=== PATIENT | female | born 1955 | race Caucasian/White ===

== ENCOUNTER 2017-09-13 18:38 | Emergency (ER) | payer MEDICAID, SELFPAY ==
[2017-09-13 18:41] VITALS: BP 193/113; PULSE 114; RESP 18; TEMP 37.1; O2SAT 98; BMI 26.5
--- NOTE | 2017-09-13 19:55 | CT_ITS ---
STUDY: CT BRAIN WITHOUT CONTRAST REASON FOR EXAM: Female, 61 years old. Headache and body rash with history of stroke RADIATION DOSAGE (If Supplied By Facility): CTDIvol = ( 44.99 ) mGy, DLP = ( 779.24 ) mGycm TECHNIQUE: Transaxial CT imaging of the brain was performed without administration of intravenous contrast material. Individualized dose optimization techniques were used for this CT. COMPARISON: None. FINDINGS: Normal soft tissue structures. Normal calvarium. Normal size ventricles and extra-axial spaces for the patient's age. Periventricular white matter ischemic changes are noted.. Normal basal ganglia. Old lacunar infarct of the left thalamus.. Diffuse hypoattenuation high in the right frontal parietal region consistent with old infarct. Normal brainstem. Normal cerebellum. There is no intracranial hemorrhage. There are no findings of an acute ischemic infarction. Normal visualized paranasal sinuses. CT/Brain/Head without Contrast IMPRESSION: Periventricular white matter ischemic changes and old left thalamic infarct as well as old right frontal parietal infarct. No mass or acute bleed. If concern for acute infarct MRI recommended. Electronically Signed: Richard Grajeda MD at 21:08 EDT , Service support ,
[2017-09-13 20:16] LABS: Absolute Lymphocyte Count 3.11 X10^3/ul (0.83-4.51); Absolute Neutrophil Count 6.7 X10^3/uL (2.0-7.7); Basophil# 0.07 X10^3/uL; Basophil% 0.6 % (0-1); Eosinophil# 0.32 X10^3/uL; Eosinophils% 2.9 % (0-5); Hematocrit 42.5 % (37-47); Hemoglobin 15.1 g/dl (12.0-15.0); Lymphocyte # 3.11 X10^3/ul (4.0); Lymphocyte % 28.6 % (19-41); Mean Corp Hgb Conc 35.5 g/gl (32-36); Mean Corpuscular Volume 84.3 fL (81-99); Mean Platelet Vol. 10.1 fl (6.2-12.0); Monocyte# 0.71 X10^3/uL; Monocyte% 6.5 % (0-10); Neutrophil # 6.65 X10^3/uL (2.7-7.7); Neutrophil % 61.1 % (47-70); Platelet Count 368 K/mm3 (150-450); RBC Distribution Width CV 13.5 % (11.6-14.6); RBC Distribution Width SD 41.7 fl (35.1-43.9); Red Blood Count 5.04 M/mm3 (4.2-5.4); White Blood Count 10.9 K/mm3 (4.4-11.0)
[2017-09-13] MEDS: proCHLORPERazine 10 MG/2 ML Vial IV (20:17)
[2017-09-13] MEDS: 0.9% Normal Saline 1,000 ML 999 ML IV (20:17)
[2017-09-13] MEDS: DiphenhydrAMINE 50 MG/ML Syringe IV (20:17)
[2017-09-13 20:19] LABS: POSITIVE COUNT NO; POSITIVE DIFFERENTIAL NO; POSITIVE MORPHOLOGY NO
[2017-09-13 20:24] VITALS: BP 176/79; PULSE 88; RESP 14
[2017-09-13 20:32] LABS: Anion Gap 9 (5-15); BUN 17 mg/dL (7-18); BUN/Creat Ratio 14.4 RATIO (10-20); Calcium,Total 8.7 mg/dL (8.5-10.1); Chloride 97 mmol/L (98-107); Creatinine, Serum 1.18 mg/dL (0.55-1.02); EST Glomerular Filtration Rate 49 mL/min (>60); Est Glom Filt Rate - Afr Amer 60 mL/min (>60); Estimated Creatinine Clearance 35.96 ml/min; Glucose 395 mg/dL (74-106); Potassium 3.7 mmol/L (3.5-5.1); Sodium Level 131 mmol/L (136-145)
--- NOTE | 2017-09-13 21:31 | ED.VISSUMM ---
- ER Visit Summary Date of Service: 09/13/17 Chief Complaint: Headache, rash History of Present Illness: The patient is a 61 F with headache and rash. Patient states over the past 3 days, she has had gradually progressive headache. She states similar to prior that she has had in the past. The patient does have a history of prior stroke, but states this feels very different. She is also concerned because she has a rash. She states on her arms and back, she has had central red areas that have been increasingly itchy. She denies any definitive exposure. She denies any fever or chills. The patient is a diabetic and does have history of hypertension, but states she has been compliant with her medications. Physical Examination: Well-appearing patient is in no acute distress. Head is normocephalic, atraumatic. Pupils equal round reactive, extraocular muscles intact. There is no temporal artery tenderness. There is no vesicular rash. Neck supple. Kernig's and Brudzinski's are negative. Heart regular rate and rhythm. Lungs clear, chest nontender. Abdomen soft, nontender, nondistended. Neuro exam displays no focal or lateralizing deficit. 2+ symmetric lower extremity reflexes. No clonus. No ataxia or gait abnormality. Skin does show multiple excoriated areas on the dorsal surface of both arms and upper shoulders. It is consistent with scabies. Test Results: [] Emergency Department Course and Treatment: The patient has a benign neurologic examination. However, given her age I did obtain a head CT. This is unremarkable. She has no meningismus. She has no encephalopathy. I do feel this is more migrainous in nature. The patient was treated with Compazine and Benadryl. She had total resolution of her headache. Her rash does seem more consistent with a scabies. She will be treated with permethrin cream. Given the excoriation and erythema, I will add Keflex. She was counseled on concerning symptoms. She will be discharged home. Treatment Plan: [] Disposition: Discharge Impression:. Headache 2. Scabies This note was generated with [employer]Tree[employer] software. It may contain incorrect words, spelling, and punctuation that were not noted in review of the chart prior to signing ED Disposition - Plan for ED Patient: Disposition: Home or Assisted Living Chief Complaint: Headache Instructions: ED Headache Migraine, ED Scabies Prescriptions: Cephalexin [Keflex] 500 mg PO Q6 #40 cap Permethrin 5% [Permethrin] 60 gm TOPICAL X1 #1 cream..g. Referrals: Evens Jimenez III, MD [Primary Care Provider] -
[2017-09-13 21:39] VITALS: BP 168/70
== END 2017-09-13 21:40 | disposition home or self-care (01) ==
LOC: ED 20:06
PROVIDERS: Emergency Provider Emergency Medicine; Family Provider Family Medicine; PCP Family Medicine
DX: R51 Headache (principal); B86 Scabies; E11.9 Type 2 diabetes mellitus without complications; I10 Essential (primary) hypertension; Z79.899 Other long term (current) drug therapy; Z86.73 Personal history of transient ischemic attack (TIA), and cerebral infarction without residual deficits
CPT/HCPCS: 70450; 80048; 85025; 96361; 96374; 96375; 99283; J7030; A4216

== ENCOUNTER → 2017-11-08 14:42 | Outpatient (CLI) | payer MEDICAID, SELFPAY ==
[2017-11-08 15:14] LABS: Absolute Lymphocyte Count 1.82 X10^3/ul (0.83-4.51); Basophil# 0.03 X10^3/uL; Basophil% 0.2 % (0-1); Eosinophils% 5.8 % (0-5); Hematocrit 43.1 % (37-47); Hemoglobin 15.1 g/dl (12.0-15.0); Lymphocyte # 1.82 X10^3/ul (4.0); Mean Corpuscular Hgb 29.8 pg (27.0-32.0); Mean Platelet Vol. 9.5 fl (6.2-12.0); Monocyte# 0.62 X10^3/uL; Monocyte% 5.1 % (0-10); Neutrophil # 8.98 X10^3/uL (2.7-7.7); Neutrophil % 73.8 % (47-70); Platelet Count 387 K/mm3 (150-450); RBC Distribution Width CV 13.6 % (11.6-14.6); Red Blood Count 5.07 M/mm3 (4.2-5.4); White Blood Count 12.2 K/mm3 (4.4-11.0)
[2017-11-08 15:15] LABS: POSITIVE COUNT NO; POSITIVE DIFFERENTIAL NO; POSITIVE MORPHOLOGY NO
[2017-11-08 15:18] VITALS: BP 190/100; PULSE 94; RESP 16; TEMP 36.8; O2SAT 97; BMI 27.1
[2017-11-08 15:29] LABS: Anion Gap 7 (5-15); BUN 17 mg/dL (7-18); BUN/Creat Ratio 12.5 RATIO (10-20); Calcium,Total 9.2 mg/dL (8.5-10.1); Chloride 94 mmol/L (98-107); Creatinine, Serum 1.36 mg/dL (0.55-1.02); EST Glomerular Filtration Rate 42 mL/min (>60); Est Glom Filt Rate - Afr Amer 51 mL/min (>60); Glucose 405 mg/dL (74-106); Sodium Level 129 mmol/L (136-145)
== END ==
PROVIDERS: Family Provider Family Medicine; PCP Family Medicine; Visit Provider Surgery
DX: I96 Gangrene, not elsewhere classified (principal)
CPT/HCPCS: 96365; 80048; 85025; J7050; A4216; J3490

== ENCOUNTER 2017-11-14 07:26 | Day surgery (SDC) | payer MEDICAID, SELFPAY ==
[2017-11-13 10:52] VITALS: BMI 27.1
[2017-11-14 07:43] LABS: Hematocrit 41.5 % (37-47); Hemoglobin 14.4 g/dl (12.0-15.0); Mean Corp Hgb Conc 34.7 g/gl (32-36); Mean Corpuscular Hgb 29.9 pg (27.0-32.0); Mean Corpuscular Volume 86.3 fL (81-99); Mean Platelet Vol. 9.4 fl (6.2-12.0); Platelet Count 434 K/mm3 (150-450); RBC Distribution Width CV 13.8 % (11.6-14.6); Red Blood Count 4.81 M/mm3 (4.2-5.4); White Blood Count 11.4 K/mm3 (4.4-11.0)
[2017-11-14 07:44] LABS: Scan Indicated on CBC? Y/N NO
[2017-11-14 07:58] LABS: BUN 18 mg/dL (7-18); Creatinine, Serum 1.24 mg/dL (0.55-1.02); Estimated Creatinine Clearance 34.22 ml/min; Glucose 223 mg/dL (74-106)
[2017-11-14 07:59] LABS: Anion Gap 10 (5-15); BUN/Creat Ratio 14.5 RATIO (10-20); Calcium,Total 8.8 mg/dL (8.5-10.1); Chloride 103 mmol/L (98-107); EST Glomerular Filtration Rate 47 mL/min (>60); Est Glom Filt Rate - Afr Amer 56 mL/min (>60); Potassium 3.8 mmol/L (3.5-5.1); Sodium Level 138 mmol/L (136-145)
[2017-11-14 11:00] LABS: ACT Activated Clotting Time 230 sec (74-137)
[2017-11-14 11:00] LABS: ACT Activated Clotting Time 224 sec (74-137)
[2017-11-14 11:00] LABS: ACT Activated Clotting Time 235 sec (74-137)
[2017-11-14 11:00] LABS: ACT Activated Clotting Time 136 sec (74-137)
--- NOTE | 2017-11-14 11:26 | OP.PCM_ITS ---
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 61-year-old female was taken to the special procedures lab. Throughout the procedure she received a total of 100 mcg fentanyl and 1 mg Versed is intravenous sedation. Bilateral groins were sterilely prepped and draped. It is of additional note that during the procedure she received a total of 20 mg of hydralazine in aliquots and 50 mg of labetalol and aliquots for hypertension control. The patient did not take her routine hypertensive medications this morning Under ultrasound guidance the right common femoral artery was identified. 2% lidocaine was instilled as a local anesthetic. Throughout the procedure total 10 cc was used. Micropuncture needle was inserted. Micropuncture wire inserted. 6 [place]an short sheath dilator was inserted using 035 Glidewire 5 [place] universal flush catheter placed into the mid infrarenal abdominal aorta. Using Visipaque contrast the rate of 15 cc a second for 15 cc an AP aortogram was obtained. Then using Glidewire of the universal flush catheter was placed into the left common femoral artery. Static views of the left thigh were obtained. Then I switched out for 035 Quick cross catheter and using the Glidewire Access the left superficial femoral artery was then tediously able to advance through areas of high-grade stenosis within the left superficial femoral artery is able to advance the Quick cross in the popliteal. Images of the left lower extremity demonstrated a complete occlusion of the left tibial and posterior tibial. There was an 8 cm long occlusion of left peroneal. Using the Glidewire was able to get to the peroneal occlusion. Then I used a 018 connect wire which was able to advance the Quick cross catheter then I switched to a 014 command wire and was finally able to get into the peroneal artery distally to the level of the ankle. Place the catheter that position was able to get images. Demonstrated true lumen. It is of note that prior to doing all of that left lower extremity work I did exchange out over an 035 Magic wire and removed the 5 Chilean sheath and placed a 7 Chilean destination sheath. And it was at that time that the patient received 7000 units of heparin and based upon ACT measurements in aliquots she received additional 1000 and then 1000 units of heparin. Having now achieved access past all areas of occlusion the vessels were measured they were noted be very fragile during the manipulations vessels measured out the SFA to be only 3 mm so I used a tapered 2.5-3 mm 210 mm long Divya cross balloon and perform balloon angioplasty of the entire length of the left peroneal of the left tibioperoneal trunk left popliteal and left SFA. This was performed up to 14 mary ann of pressure and each that was held for 3 minutes. At the completion there was still relative stenosis at Noam's canal. I retreated that area with the Divya cross balloon. Final images now demonstrated dramatic improvement with in-line flow. She tolerated procedure well devices were removed a minx device was deployed in the right groin there appear to be good hemostasis pressure was additionally held she was taken to the recovery area in satisfactory condition left foot now appear to be pink there was a much improved Doppler signal overlying the distal left peroneal with collateral flow noted to the dorsalis pedis. Images demonstrate calcification of the abdominal aorta there is 50% stenosis of the proximal left common iliac a 3 similar long area of 50% stenosis of the left external iliac the bilateral common femorals and profunda femoris are patent. The left superficial femoral artery has 2 areas of high-grade stenosis 1 at Noam's canal being about 80% stenosis and one at the superior popliteal about 90% stenosis. The left anterior tibial is patent for about 10 cm then it occludes. The left posterior tibial is completely occluded. Left peroneal is occluded for approximately 8 cm and then it re-appears. There is some collateral flow then down at the ankle. Subsequent to the angioplasty now there is straight in-line flow through the superficial femoral artery popliteal tibioperoneal trunk and peroneal arteries. There is still moderate irregular disease at Noam's canal. Because of the very diminutive size of her vessels I did not feel that we treating that area any further at this time would be beneficial. She had a very limited area of dissection that is not flow limiting. Her foot clinically is improved. Total contrast used was 85 cc I have been able to discuss the this intervention with Dr. Michael Laird who will also be following up with her. Siva Jimenez M.D., F.A.C.S. Type of Anesthesia:: IV Sedation
== END 2017-11-14 16:00 | disposition home or self-care (01) ==
PROVIDERS: Family Provider Family Medicine; PCP Family Medicine; Visit Provider Surgery
DX: I70.268 Atherosclerosis of native arteries of extremities with gangrene, other extremity (principal); I25.10 Atherosclerotic heart disease of native coronary artery without angina pectoris; E11.52 Type 2 diabetes mellitus with diabetic peripheral angiopathy with gangrene; E78.5 Hyperlipidemia, unspecified; I10 Essential (primary) hypertension; F32.9 Major depressive disorder, single episode, unspecified; F17.200 Nicotine dependence, unspecified, uncomplicated; Z86.73 Personal history of transient ischemic attack (TIA), and cerebral infarction without residual deficits; Z79.82 Long term (current) use of aspirin; Z79.899 Other long term (current) drug therapy
CPT/HCPCS: 36200; 36415; 37224; 37228; 75625; 76937; 80048; 85027; 85347; 99152; 99153; C1760; J7030; J7040; Q9967; C1725; C1769; C1887; C1894; J3490

== ENCOUNTER 2017-12-10 10:07 | Inpatient (IN) | payer MEDICAID, SELFPAY ==
[2017-12-10 10:29] VITALS: BP 125/82; PULSE 89; RESP 16; TEMP 37.1; O2SAT 97
[2017-12-10 10:37] VITALS: BMI 25.0
--- NOTE | 2017-12-10 11:15 | EKG12_ITS ---
Test Reason : PRE-OP Blood Pressure : / mmHG Vent. Rate : 079 BPM Atrial Rate : 079 BPM P-R Int : 128 ms QRS Dur : 080 ms QT Int : 408 ms P-R-T Axes : 064 017 058 degrees QTc Int : 467 ms Poor data quality, interpretation may be adversely affected Normal sinus rhythm Normal ECG Confirmed by NILSON HILL ([id number]), technical writer and editor RAYMUNDO PATEL ([id number]) on 12/19/2017 2:06:04 PM Referred By: SHERRIE Confirmed By:NILSON HILL
--- NOTE | 2017-12-10 11:20 | PCM.HP.STD ---
Problem List (1) Gangrene Status: Acute History of Present Illness Date of Admission: 12/10/17 Chief Complaint: Gangrene left 5th toe. The patient is a 62 year old F who has developed gangrene of the left fifth toe. Began several months ago. No antecedent trauma. Patient saw Dr. Laird and patient was referred to vascular surgery with Dr. Jimenez. Patient underwent an angioplasty on November 14 where she had an angiogram and angioplasty of the popliteal superior facial femoral artery. Patient was to follow-up with her primary care doctors but due to transportation issues unable to do so for further medical clearance. Dr. Laird requested admission today with anticipation of surgery on the for further medical clearance as patient was unable to do so on an outpatient basis. Early, the patient feels well other than pain and discomfort in her left fifth toe. Patient states that she resides in an apartment and has to take stairs to get upstairs. Patient stated that she has limited due to pain in her foot but does not get chest pain or shortness of breath. Prior to the gangrene, patient was active at her house and team cleaning without any difficulty. [] Past Medical History Past Medical History (Chronic Problems): Chronic Problems (Last Updated 11/08/17 @ 13:34 by Melva Ashby) Tobacco abuse (Chronic) Caries (Chronic) Carotid arterial disease (Chronic) History of CVA (cerebrovascular accident) (Chronic) Hyperlipidemia (Chronic) Hypertension (Chronic) Diabetes mellitus (Chronic) Abscess of buttock (Chronic) Tobacco abuse counseling (Chronic) Chronic ulcer of buttock (Chronic) Medical History: Medical History (Last Reviewed 12/10/17 @ 11:23 by Jose Neely DO) PVD (peripheral vascular disease) (Acute) I73.9 Carotid arterial disease (Chronic) I77.9 Hyperlipidemia (Chronic) E78.5 Nicotine dependence (Acute) F17.200 Cellulitis and abscess of buttock (Acute) 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 Asthma J45.909 CVA (cerebral vascular accident) I63.9 Chronic back pain M54.9, G89.29 Depression F32.9 Diabetes E11.9 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 HTN (hypertension) I10 Allergies Penicillins Allergy (Verified 09/13/17 18:40) Rash Home Medications: Ambulatory Orders Medication Instructions Recorded Amlodipine [Norvasc] 10 mg PO QHS 12/18/15 Lisinopril [Zestril] 10 mg PO DAILY 12/18/15 busPIRone [Buspar] 5 mg PO TID 12/18/15 Sertraline HCl [Zoloft] 25 mg PO DINNER 10/11/16 Simethicone 125 mg PO TID PRN PRN 10/11/16 Clopidogrel Bisulfate [Clopidogrel] 75 mg PO DAILY 12/10/17 Hydrocodone Bitart/Apap 5-325 1 tablet PO Q6H PRN PRN 12/10/17 [Joppa 5MG-325MG] Permethrin 5% [Permethrin] 60 gm TOPICAL DAILY 12/10/17 Surgical History: Surgical History (Last Reviewed 12/10/17 @ 11:24 by Jose Neely DO) History of esophagogastroduodenoscopy (EGD) Z98.890 S/P carotid endarterectomy Z98.890 S/P colonoscopy Z98.890 Surgical History: - - Patient has undergone right carotid endarterectomy by Dr. Siva Jimenez approximately 7 years ago. She is a Ab0. Lives: Spouse/ Significant Other Smoking Status: Heavy Smoker (>10/day) Tobacco Use: Cigarettes Alcohol: None Drugs: None - *Family History Maternal Family History: Family History (Last Updated 11/08/17 @ 13:38 by Melva Ashby) Mother No problems noted. History Items: - - Patient's father in his 40s from myocardial infarction. Patient's mother in her 40s from a cerebrovascular accident. Review of Systems Constitutional: Denies: Chills, Fever, Weight Change Eyes: Reports: Blurred vision - When she does not get enough water. Denies: Double vision HEENT: Denies: Head Aches, Sinus Congestion, Sinus Drainage Cardiovascular: Denies: Chest Pain, Palpitations Respiratory: Denies: Cough, Shortness of breath at rest, Sputum production Gastrointestinal: Denies: Abdominal Pain, Nausea, Vomiting Genitourinary: Denies: Dysuria Musculoskeletal: Denies: Joint Pain, Joint Tenderness Skin: Reports: - - Gangrene left fifth toe. Denies: Dryness, Jaundice Neurological: Denies: Numbness, Tingling, Focal weakness Psychiatric: Denies: Anxiety, Depression Endocrine: Denies: Change in Body Habitus Hematologic/ Lymphatic: Denies: Easy Bruising, Easy Bleeding, Hx of blood clot Comment: All review of systems are negative except as mentioned in the history of present illness and the other review of systems. VTE Information - Inpt Only VTE Present on Admission: No VTE Mechan Device Prophylaxis: SCD's Patient Problems: Active and Suspected Problems (Last Updated 11/08/17 @ 13:34 by Melva Ashby) Gangrene (Acute) - Physical Exam General: Alert, Cooperative, No apparent distress HEENT: Atraumatic, Normocephalic Oral: Moist Mucosa, - - Poor dentition Neck: No Nodes, Thyroid Normal Size and Texture Lungs: Clear to auscultation, Normal air movement, No rhonchi, No wheeze Cardiovascular: Regular rate, Regular Rhythm, Normal S1, Normal S2, No murmurs Abdomen: Bowel Sounds Present, Soft, Non Tender, Non-Distended, No Hepato-splenomegaly Extremities: No edema, No Calf Tenderness Skin: No rashes, - - Well demarcated gangrene involving as the entirety of her left fifth toe. 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 Left fifth toe gangrene Appears to be dry Patient was assessed for medical clearance. Patient has a good performance status prior to the gangrene setting in. Performance is only limited due to pain. Barring any issues regards to labs and EKG I feel that the patient should be medically cleared to proceed with amputation on the . If any lab work or EKG findings come up that may prevent that from occurring right away an addendum will be performed to this history and physical. Consult to podiatry for surgery I do not see any indication for antibiotics at this time Discussed with patient about the importance of stopping smoking. Patient tells me that she stopped smoking but technically it has only been 1 day so the patient previously has a [id number] of smoking. I explained the risks of further atherosclerosis and poor wound healing associated with continued smoking 2. Peripheral arterial disease Patient is already status post right carotid endarterectomy and had angioplasty of her popliteal and superficial femoral arteries on November [address] Jimenez Patient is on Plavix for that and that will continue. Dr. Laird is aware. 3. Diabetes mellitus type 2 Patient is on no medications for her diabetes. This is certainly complicating the gangrene and her peripheral arterial disease Will check a hemoglobin A1c Put her on sliding scale 4. Tobacco abuse Discussed benefits of quitting smoking. Please see above for further details 5. DVT prophylaxis: Patient will be put on SCDs for now. I am not going to order chemical prophylaxis at this point time as patient is going to be requiring surgery on the . That could be considered after surgery. Code Visit Inpatient E&M: 02180 Init Hosp L3
--- NOTE | 2017-12-10 11:30 | HP.PCM_ITS ---
Problem List (1) Gangrene Status: Acute History of Present Illness Date of Admission: 12/10/17 Chief Complaint: Gangrene left 5th toe. The patient is a 62 year old F who has developed gangrene of the left fifth toe. Began several months ago. No antecedent trauma. Patient saw Dr. Laird and patient was referred to vascular surgery with Dr. Jimenez. Patient underwent an angioplasty on November 14 where she had an angiogram and angioplasty of the popliteal superior facial femoral artery. Patient was to follow-up with her primary care doctors but due to transportation issues unable to do so for further medical clearance. Dr. Laird requested admission today with anticipation of surgery on the for further medical clearance as patient was unable to do so on an outpatient basis. Early, the patient feels well other than pain and discomfort in her left fifth toe. Patient states that she resides in an apartment and has to take stairs to get upstairs. Patient stated that she has limited due to pain in her foot but does not get chest pain or shortness of breath. Prior to the gangrene, patient was active at her house and team cleaning without any difficulty. [] Past Medical History Past Medical History (Chronic Problems): Chronic Problems (Last Updated 11/08/17 @ 13:34 by Melva Ashby) Tobacco abuse (Chronic) Caries (Chronic) Carotid arterial disease (Chronic) History of CVA (cerebrovascular accident) (Chronic) Hyperlipidemia (Chronic) Hypertension (Chronic) Diabetes mellitus (Chronic) Abscess of buttock (Chronic) Tobacco abuse counseling (Chronic) Chronic ulcer of buttock (Chronic) Medical History: Medical History (Last Reviewed 12/10/17 @ 11:23 by Jose Neely DO) PVD (peripheral vascular disease) (Acute) I73.9 Carotid arterial disease (Chronic) I77.9 Hyperlipidemia (Chronic) E78.5 Nicotine dependence (Acute) F17.200 Cellulitis and abscess of buttock (Acute) 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 Asthma J45.909 CVA (cerebral vascular accident) I63.9 Chronic back pain M54.9, G89.29 Depression F32.9 Diabetes E11.9 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 HTN (hypertension) I10 Allergies Penicillins Allergy (Verified 09/13/17 18:40) Rash Home Medications: Ambulatory Orders Medication Instructions Recorded Amlodipine [Norvasc] 10 mg PO QHS 12/18/15 Lisinopril [Zestril] 10 mg PO DAILY 12/18/15 busPIRone [Buspar] 5 mg PO TID 12/18/15 Sertraline HCl [Zoloft] 25 mg PO DINNER 10/11/16 Simethicone 125 mg PO TID PRN PRN 10/11/16 Clopidogrel Bisulfate [Clopidogrel] 75 mg PO DAILY 12/10/17 Hydrocodone Bitart/Apap 5-325 1 tablet PO Q6H PRN PRN 12/10/17 [[place] 5MG-325MG] Permethrin 5% [Permethrin] 60 gm TOPICAL DAILY 12/10/17 Surgical History: Surgical History (Last Reviewed 12/10/17 @ 11:24 by Jose Neely DO) History of esophagogastroduodenoscopy (EGD) Z98.890 S/P carotid endarterectomy Z98.890 S/P colonoscopy Z98.890 Surgical History: - - Patient has undergone right carotid endarterectomy by Dr. Siva Jimenez approximately 7 years ago. She is a Ab0. Lives: Spouse/ Significant Other Smoking Status: Heavy Smoker (>10/day) Tobacco Use: Cigarettes Alcohol: None Drugs: None - *Family History Maternal Family History: Family History (Last Updated 11/08/17 @ 13:38 by Melva Ashby) Mother No problems noted. History Items: - - Patient's father in his 40s from myocardial infarction. Patient's mother in her 40s from a cerebrovascular accident. Review of Systems Constitutional: Denies: Chills, Fever, Weight Change Eyes: Reports: Blurred vision - When she does not get enough water. Denies: Double vision HEENT: Denies: Head Aches, Sinus Congestion, Sinus Drainage Cardiovascular: Denies: Chest Pain, Palpitations Respiratory: Denies: Cough, Shortness of breath at rest, Sputum production Gastrointestinal: Denies: Abdominal Pain, Nausea, Vomiting Genitourinary: Denies: Dysuria Musculoskeletal: Denies: Joint Pain, Joint Tenderness Skin: Reports: - - Gangrene left fifth toe. Denies: Dryness, Jaundice Neurological: Denies: Numbness, Tingling, Focal weakness Psychiatric: Denies: Anxiety, Depression Endocrine: Denies: Change in Body Habitus Hematologic/ Lymphatic: Denies: Easy Bruising, Easy Bleeding, Hx of blood clot Comment: All review of systems are negative except as mentioned in the history of present illness and the other review of systems. VTE Information - Inpt Only VTE Present on Admission: No VTE Mechan Device Prophylaxis: SCD's Patient Problems: Active and Suspected Problems (Last Updated 11/08/17 @ 13:34 by Melva Ashby) Gangrene (Acute) - Physical Exam General: Alert, Cooperative, No apparent distress HEENT: Atraumatic, Normocephalic Oral: Moist Mucosa, - - Poor dentition Neck: No Nodes, Thyroid Normal Size and Texture Lungs: Clear to auscultation, Normal air movement, No rhonchi, No wheeze Cardiovascular: Regular rate, Regular Rhythm, Normal S1, Normal S2, No murmurs Abdomen: Bowel Sounds Present, Soft, Non Tender, Non-Distended, No Hepato- splenomegaly Extremities: No edema, No Calf Tenderness Skin: No rashes, - - Well demarcated gangrene involving as the entirety of her left fifth toe. 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 Left fifth toe gangrene * Appears to be dry * Patient was assessed for medical clearance. Patient has a good performance status prior to the gangrene setting in. Performance is only limited due to pain. Barring any issues regards to labs and EKG I feel that the patient should be medically cleared to proceed with amputation on the . If any lab work or EKG findings come up that may prevent that from occurring right away an addendum will be performed to this history and physical. * Consult to podiatry for surgery * I do not see any indication for antibiotics at this time * Discussed with patient about the importance of stopping smoking. Patient tells me that she stopped smoking but technically it has only been 1 day so the patient previously has a [id number] of smoking. I explained the risks of further atherosclerosis and poor wound healing associated with continued smoking 2. Peripheral arterial disease * Patient is already status post right carotid endarterectomy and had angioplasty of her popliteal and superficial femoral arteries on November [address] Jimenez * Patient is on Plavix for that and that will continue. Dr. Laird is aware. 3. Diabetes mellitus type 2 * Patient is on no medications for her diabetes. * This is certainly complicating the gangrene and her peripheral arterial disease * Will check a hemoglobin A1c * Put her on sliding scale 4. Tobacco abuse * Discussed benefits of quitting smoking. Please see above for further details 5. DVT prophylaxis: Patient will be put on SCDs for now. I am not going to order chemical prophylaxis at this point time as patient is going to be requiring surgery on the . That could be considered after surgery. Code Visit Inpatient E&M: 31646 Init Hosp L3
[2017-12-10 11:45] VITALS: PULSE 92
[2017-12-10 11:52] LABS: Absolute Lymphocyte Count 1.75 X10^3/ul (0.83-4.51); Basophil# 0.03 X10^3/uL; Basophil% 0.3 % (0-1); Eosinophil# 0.58 X10^3/uL; Eosinophils% 6.6 % (0-5); Hemoglobin 11.9 g/dl (12.0-15.0); Lymphocyte # 1.75 X10^3/ul (4.0); Mean Corp Hgb Conc 33.1 g/gl (32-36); Mean Corpuscular Hgb 29.2 pg (27.0-32.0); Mean Corpuscular Volume 88.2 fL (81-99); Mean Platelet Vol. 8.8 fl (6.2-12.0); Monocyte# 0.36 X10^3/uL; Monocyte% 4.1 % (0-10); Neutrophil # 6.03 X10^3/uL (2.7-7.7); Platelet Count 387 K/mm3 (150-450); RBC Distribution Width CV 14.3 % (11.6-14.6); RBC Distribution Width SD 46.2 fl (35.1-43.9); Red Blood Count 4.08 M/mm3 (4.2-5.4); White Blood Count 8.8 K/mm3 (4.4-11.0)
[2017-12-10 11:57] LABS: POSITIVE COUNT NO; POSITIVE DIFFERENTIAL NO; POSITIVE MORPHOLOGY NO
[2017-12-10 12:06] LABS: Bedside Glucose 201 mg/dL (70-110)
[2017-12-10 12:07] VITALS: BMI 25.1
[2017-12-10 12:09] LABS: ALB/GLOB Ratio 0.7 RATIO (0.9-2.4); AST(SGOT) 13 U/L (15-37); Alanine Aminotransfer ALT/SGPT 16 U/L (13-56); Albumin, Serum 3.1 g/dL (3.2-5.0); Alkaline Phosphatase 116 U/L (45-117); Anion Gap 9 (5-15); BUN 19 mg/dL (7-18); BUN/Creat Ratio 15.3 RATIO (10-20); Calcium,Total 8.9 mg/dL (8.5-10.1); Chloride 98 mmol/L (98-107); Creatinine, Serum 1.24 mg/dL (0.55-1.02); EST Glomerular Filtration Rate 47 mL/min (>60); Est Glom Filt Rate - Afr Amer 56 mL/min (>60); Estimated Creatinine Clearance 33.79 ml/min; Globulin 4.2 g/dL (2.2-4.2); Glucose 183 mg/dL (74-106); Potassium 4.1 mmol/L (3.5-5.1); Protein, Total 7.3 g/dL (6.4-8.2); Sodium Level 136 mmol/L (136-145)
[2017-12-10 12:15] LABS: Hemoglobin A1c 10.2 % (4.2-6.3)
--- NOTE | 2017-12-10 12:15 | NURSING ---
PAST MEDICAL HISTORY FILED, PATIENT STATES JUST FINISHED ANTIBIOTIC 4 DAYS AGO FROM ...UNSURE NAME & DOSE.
[2017-12-10] MEDS: Acetaminophen 325 MG Tablet 650 MG PO (12:26)
[2017-12-10] MEDS: oxyCODONE 5 MG Tablet PO ×3 (12:26→21:03)
[2017-12-10] MEDS: Glucerna Shake 120 ML LIQUID PO ×2 (12:27→17:18)
--- NOTE | 2017-12-10 15:16 | NURSING ---
BACK W/NUMEROUS SCABS & OPEN AREAS, C/O ITCHING. CLEANSED AREA W/BATH WIPES, TOWELLED DRY, LOTION APPLIED. ASKED IF FAMILY COULD BRING HER PRESCRIPTION OINTMENT FROM HOME? SHE WILL CALL & HAVE THEM BRING IT FOR USE WHILE SHE IS HERE.
[2017-12-10 16:00] VITALS: BP 172/85; PULSE 76; RESP 16; TEMP 37.2; O2SAT 99
[2017-12-10] MEDS: Insulin Lispro 100 UNIT/ML INSULN.PEN SQ (17:09)
[2017-12-10] MEDS: Sertraline 50 MG Tablet 25 MG PO (17:09)
[2017-12-10 17:15] LABS: Bedside Glucose 183 mg/dL (70-110)
[2017-12-10] MEDS: busPIRone 5 MG Tablet PO ×2 (17:17→21:00)
[2017-12-10] MEDS: Lisinopril 10 MG Tablet PO (17:17)
--- NOTE | 2017-12-10 18:37 | NURSING ---
1100-IV ATTEMPT X1 TO RIGHT ARM WITHOUT ABILITY TO FLUSH. SHOP ASSISTANT TO ATTEMPT.
[2017-12-10 19:55] VITALS: BP 152/86; PULSE 76; RESP 18; TEMP 36.9; O2SAT 96
[2017-12-10] MEDS: Triamcinolone 0.5% Cream 1 APPLIC TOPICAL (20:51)
[2017-12-10] MEDS: DiphenhydrAMINE 25 MG Capsule 50 MG PO (20:51)
[2017-12-10] MEDS: amLODIPine 10 MG Tablet PO (20:52)
[2017-12-10 21:20] LABS: Bedside Glucose 224 mg/dL (70-110)
[2017-12-11] VITALS (10 sets, daily range): BP systolic 92–206; BP diastolic 52–103; PULSE 72–87; RESP 16–18; TEMP 36.6–37.1; O2SAT 95–100; BMI 25.0
[2017-12-11] MEDS: Acetaminophen 325 MG Tablet 650 MG PO ×2 (04:01→22:37)
[2017-12-11 05:41] LABS: Absolute Lymphocyte Count 2.46 X10^3/ul (0.83-4.51); Absolute Neutrophil Count 4.3 X10^3/uL (2.0-7.7); Basophil# 0.04 X10^3/uL; Basophil% 0.5 % (0-1); Eosinophil# 0.83 X10^3/uL; Hematocrit 34.6 % (37-47); Hemoglobin 11.6 g/dl (12.0-15.0); Lymphocyte # 2.46 X10^3/ul (4.0); Lymphocyte % 29.7 % (19-41); Mean Corp Hgb Conc 33.5 g/gl (32-36); Mean Corpuscular Hgb 29.7 pg (27.0-32.0); Mean Corpuscular Volume 88.7 fL (81-99); Mean Platelet Vol. 8.9 fl (6.2-12.0); Monocyte# 0.66 X10^3/uL; Neutrophil # 4.29 X10^3/uL (2.7-7.7); Neutrophil % 51.7 % (47-70); Platelet Count 398 K/mm3 (150-450); RBC Distribution Width CV 14.1 % (11.6-14.6); RBC Distribution Width SD 45.3 fl (35.1-43.9); White Blood Count 8.3 K/mm3 (4.4-11.0)
[2017-12-11 05:43] LABS: POSITIVE COUNT NO; POSITIVE DIFFERENTIAL NO; POSITIVE MORPHOLOGY NO
[2017-12-11 05:47] LABS: Partial Thromboplast Time 33.1 Seconds (24.1-36.2)
[2017-12-11 06:40] LABS: Bedside Glucose 199 mg/dL (70-110)
[2017-12-11 06:41] LABS: AST(SGOT) 16 U/L (15-37); Alanine Aminotransfer ALT/SGPT 15 U/L (13-56); Albumin, Serum 2.7 g/dL (3.2-5.0); Alkaline Phosphatase 116 U/L (45-117); Anion Gap 7 (5-15); BUN 17 mg/dL (7-18); Bilirubin, Direct < 0.05 mg/dL (0.00-0.30); Calcium,Total 8.2 mg/dL (8.5-10.1); Chloride 101 mmol/L (98-107); Creatinine, Serum 1.06 mg/dL (0.55-1.02); EST Glomerular Filtration Rate 56 mL/min (>60); Est Glom Filt Rate - Afr Amer 68 mL/min (>60); Estimated Creatinine Clearance 39.53 ml/min; Globulin 4.2 g/dL (2.2-4.2); Glucose 171 mg/dL (74-106); Potassium 3.5 mmol/L (3.5-5.1); Protein, Total 6.9 g/dL (6.4-8.2); Sodium Level 137 mmol/L (136-145)
--- NOTE | 2017-12-11 07:30 | BON_PTH ---
PATIENT: DAVINA DAVIS LOC: [facility]3 U#:[id number] AGE/SX: 62/F ROOM: MS313 RE12/10/[address]: Dr. Jacob Byrd MD : 1955 BED: 1 DIS: 12/14/2017 SPEC #: [id number] RECD: 12/12/17 10:51 STATUS: JUSTYN REQ #: [id number] JULIET: 12/11/17 07:[address]: Michael Laird DEPT: SURGICAL PATHOLOGY RECD BY: Ba Craig ENTERED: 12/12/17 13:41 SP TYPE: Bone OTHR DR: MD Dr. Evens Strickland III, MD Dr. Joseph Agyepong, MD Dr. Matthew Testrake, DPM Tissues: Toe, NOS Procedures: Decalcification bone/plaque Surgery Specimen Level III Comments: @ Ordering doctor for DEC edited from to @ by LUPE at 12/13/17 0754 @ Ordering doctor for SUIV edited from to @ by LUPE at 12/13/17 0754 @ Submitting doctor edited from to @ by LUPE at 12/13/17 0754 HEADER OPERATION: Amputation of fifth left toe, partial left fifth ray amputation PRE-OP DIAGNOSIS: Left fifth toe gangrene TISSUE SUBMITTED: Left fifth metatarsal bone MICROSCOPIC DIAGNOSIS Left fifth metatarsal bone: A piece of bone, negative for acute osteomyelitis and adherent fragment of fibroconnective and skeletal muscle tissue. EMELY:de 12/15/17 MICROSCOPIC DESCRIPTION Slides are reviewed. GROSS DESCRIPTION Received in fixative is one container labeled with the patient's name and designated left fifth metatarsal. The specimen consists of an irregular fragment of eng bone measuring 1.5 x 0.8 x 0.3 cm. The specimen is submitted in its entirety in one cassette after decalcification. / AM:de 12/12/17 TC:5 CPT: 43833, 91842
--- NOTE | 2017-12-11 08:33 | PCM.CONS.GEN ---
Reason for Consult Date of Consultation: 12/11/17 Reason for Consultation: gangrene of left 5th toe History of Present Illness: The patient is a 62 year old F with gangrene of left 5th toe. underwent vascular procedure last month with Dr. velma Jimenez. Was scheduled for amputation but did not get surgically cleared. I had arranged for a follow-up appointment with Dr. Evens Jimenez on November 28 but patient did not show up. COntinues to have dry gangrene with worsening pain to left 5th toe. she presented to my clinic on Monday last week and we decided to arrange admission to hospital for clearance and for amputation. she denies sob or chest pain. Past Medical History Past Medical History (Chronic Problems): Chronic Problems (Last Reviewed 12/10/17 @ 11:23 by Jose Neely DO) Tobacco abuse (Chronic) Caries (Chronic) Carotid arterial disease (Chronic) History of CVA (cerebrovascular accident) (Chronic) Hyperlipidemia (Chronic) Hypertension (Chronic) Diabetes mellitus (Chronic) Abscess of buttock (Chronic) Tobacco abuse counseling (Chronic) Chronic ulcer of buttock (Chronic) Medical History: Medical History (Last Reviewed 12/10/17 @ 11:23 by Jose Neely DO) PVD (peripheral vascular disease) (Acute) I73.9 Carotid arterial disease (Chronic) I77.9 Hyperlipidemia (Chronic) E78.5 Nicotine dependence (Acute) F17.200 Cellulitis and abscess of buttock (Acute) 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 Asthma J45.909 CVA (cerebral vascular accident) I63.9 Chronic back pain M54.9, G89.29 Depression F32.9 Diabetes E11.9 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 HTN (hypertension) I10 Allergies Penicillins Allergy (Verified 09/13/17 18:40) Rash Home Medications: Ambulatory Orders Medication Instructions Recorded Amlodipine [Norvasc] 10 mg PO QHS 12/18/15 Lisinopril [Zestril] 10 mg PO DAILY 12/18/15 busPIRone [Buspar] 5 mg PO TID 12/18/15 Sertraline HCl [Zoloft] 25 mg PO DINNER 10/11/16 Simethicone 125 mg PO TID PRN PRN 10/11/16 Clopidogrel Bisulfate [Clopidogrel] 75 mg PO DAILY 12/10/17 Hydrocodone Bitart/Apap 5-325 1 tablet PO Q6H PRN PRN 12/10/17 [[place] 5MG-325MG] Mometasone Furoate [[place]] 50 gm TP DAILY 12/10/17 Surgical History: Surgical History (Last Reviewed 12/10/17 @ 11:24 by Jose Neely DO) History of esophagogastroduodenoscopy (EGD) Z98.890 S/P carotid endarterectomy Z98.890 S/P colonoscopy Z98.890 Surgical History: - - Patient has undergone right carotid endarterectomy by Dr. Velma Jimenez approximately 7 years ago. She is a Ab0. Lives: Spouse/ Significant Other Smoking Status: Former smoker Tobacco Use: Cigarettes Alcohol: None Drugs: None - *Family History Maternal Family History: Family History (Last Updated 11/08/17 @ 13:38 by Melva Ashby) Mother No problems noted. History Items: - - Patient's father in his 40s from myocardial infarction. Patient's mother in her 40s from a cerebrovascular accident. Patient Problems: Active and Suspected Problems (Last Reviewed 12/10/17 @ 11:23 by Jose Neely DO) Gangrene (Acute) Objective: patient is alert and orientated x 3. she does not appear in any distress vascular: DP and PT pulses are faint but are biphasic to doppler. skin is warm. no redness present. there is dry gangrene of left 5th toe. derm: dry gangrene present to left 5th toe. m/s: there is pain to palpation of left 5th toe - Physical Exam Vital Signs Temp Pulse Resp BP Pulse Ox 98.7 F 85 16 154/72 H 99 12/11/17 04:08 12/11/17 04:08 12/11/17 04:08 12/11/17 04:08 12/11/17 04:08 Oxygen Delivery Method Room Air Weight: 58.2 kg Body Mass Index (BMI) 25.0 Intake and Output for Last 24 Hours 12/09/17 12/10/17 12/11/17 23:59 23:59 23:59 Intake Total 1000 / 1000 Balance 1000 / 1000 Laboratory Tests Past 24 Hrs 12/10/17 12/10/17 12/10/17 11:40 11:40 11:40 WBC 8.8 RBC 4.08 L Hgb 11.9 L Hct 36.0 L MCV 88.2 MCH 29.2 MCHC 33.1 RDW 14.3 RDW Differential 46.2 H Plt Count 387 MPV 8.8 Immature Gran % (Auto) 0.000 Neut % (Auto) 69.0 Lymph % (Auto) 20.0 [place] % (Auto) 4.1 Eos % (Auto) 6.6 H Baso % (Auto) 0.3 Absolute Neuts (auto) 6.0 Absolute Lymphs (auto) 1.75 Total Counted Not Reportable PT INR APTT Sodium 136 Potassium 4.1 Chloride 98 Carbon Dioxide 29.0 Anion Gap 9 BUN 19 H Creatinine 1.24 H Estim Creat Clear Calc 33.79 Est GFR (MDRD) Af Amer 56 L Est GFR (MDRD) Non-Af 47 L BUN/Creatinine Ratio 15.3 Glucose 183 H Hemoglobin A1c 10.2 H Calcium 8.9 Total Bilirubin 0.20 Direct Bilirubin AST 13 L ALT 16 Alkaline Phosphatase 116 Total Protein 7.3 Albumin 3.1 L Globulin 4.2 Albumin/Globulin Ratio 0.7 L 12/11/17 12/11/17 12/11/17 05:24 05:24 05:24 WBC 8.3 RBC 3.90 L Hgb 11.6 L Hct 34.6 L MCV 88.7 MCH 29.7 MCHC 33.5 RDW 14.1 RDW Differential 45.3 H Plt Count 398 MPV 8.9 Immature Gran % (Auto) 0.100 Neut % (Auto) 51.7 Lymph % (Auto) 29.7 [place] % (Auto) 8.0 Eos % (Auto) 10.0 H Baso % (Auto) 0.5 Absolute Neuts (auto) 4.3 Absolute Lymphs (auto) 2.46 Total Counted Not Reportable PT 13.0 INR 1.0 APTT 33.1 Sodium 137 Potassium 3.5 Chloride 101 Carbon Dioxide 29.0 Anion Gap 7 BUN 17 Creatinine 1.06 H Estim Creat Clear Calc 39.53 Est GFR (MDRD) Af Amer 68 Est GFR (MDRD) Non-Af 56 L BUN/Creatinine Ratio 16.0 Glucose 171 H Hemoglobin A1c Calcium 8.2 L Total Bilirubin 0.10 L Direct Bilirubin < 0.05 AST 16 ALT 15 Alkaline Phosphatase 116 Total Protein 6.9 Albumin 2.7 L Globulin 4.2 Albumin/Globulin Ratio POC Glucose 12/11/17 12/10/17 12/10/17 06:33 20:58 17:08 POC Glucose 199 H 224 H 183 H 12/10/17 11:56 POC Glucose 201 H Assessment/Plan All Active Problems (Last Reviewed 12/10/17 @ 11:23 by Jose Neely DO) 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 I suspect she will require partial 5th ray amputation due to extent of gangrene involving toe. I did discuss risks of procedure not limited to infection, pain, swelling, bleeding, hematoma, nonhealing of surgical amptuation requiring more proximal amputation. I did inform patient that smoking does delay healing and places her at risk of nonhealing. we did discuss repeat vascular studies today. I did use doppler and she has biphasic flow to level of toes. she does not wish to delay this procedure any longer. she wants to proceed with surgery today. all questions answered. patient consents to proceed.
--- NOTE | 2017-12-11 08:36 | PN_ITS ---
Patient Problems: Active and Suspected Problems (Last Reviewed 12/10/17 @ 11:23 by Jose Neely DO) Gangrene (Acute) Subjective: Patient is a 62-year-old lady with past medical history significant for diabetes mellitus type 2 who presented with left fifth toe gangrene. Consult has been placed to podiatry plan is for patient undergo surgical intervention Objective: GENERAL: cooperative . 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 SKIN: Described above Vitals/I&O's: Vital Signs Temp Pulse Resp BP Pulse Ox 98.7 F 85 16 154/72 H 99 12/11/17 04:08 12/11/17 04:08 12/11/17 04:08 12/11/17 04:08 12/11/17 04:08 Oxygen Delivery Method Room Air Weight: 58.2 kg Body Mass Index (BMI) 25.0 Intake and Output for Last 24 Hours 12/09/17 12/10/17 12/11/17 23:59 23:59 23:59 Intake Total 1000 / 1000 Balance 1000 / 1000 Laboratory Results 12/10/17 11:40: WBC 8.8, RBC 4.08 L, Hgb 11.9 L, Hct 36.0 L, MCV 88.2, MCH 29.2 , MCHC 33.1, RDW 14.3, RDW Differential 46.2 H, Plt Count 387, MPV 8.8, Immature Gran % (Auto) 0.000, Neut % (Auto) 69.0, Lymph % (Auto) 20.0, [place] % ( Auto) 4.1, Eos % (Auto) 6.6 H, Baso % (Auto) 0.3, Absolute Neuts (auto) 6.0, Absolute Lymphs (auto) 1.75, Total Counted Not Reportable 12/10/17 11:40: Sodium 136, Potassium 4.1, Chloride 98, Carbon Dioxide 29.0, Anion Gap 9, BUN 19 H, Creatinine 1.24 H, Estim Creat Clear Calc 33.79, Est GFR (MDRD) Af Amer 56 L, Est GFR (MDRD) Non-Af 47 L, BUN/Creatinine Ratio 15.3, Glucose 183 H, Calcium 8.9, Total Bilirubin 0.20, AST 13 L, ALT 16, Alkaline Phosphatase 116, Total Protein 7.3, Albumin 3.1 L, Globulin 4.2, Albumin/ Globulin Ratio 0.7 L 12/10/17 11:40: Hemoglobin A1c 10.2 H 12/10/17 11:56: POC Glucose 201 H 12/10/17 17:08: POC Glucose 183 H 12/10/17 20:58: POC Glucose 224 H 12/11/17 05:24: WBC 8.3, RBC 3.90 L, Hgb 11.6 L, Hct 34.6 L, MCV 88.7, MCH 29.7 , MCHC 33.5, RDW 14.1, RDW Differential 45.3 H, Plt Count 398, MPV 8.9, Immature Gran % (Auto) 0.100, Neut % (Auto) 51.7, Lymph % (Auto) 29.7, [place] % ( Auto) 8.0, Eos % (Auto) 10.0 H, Baso % (Auto) 0.5, Absolute Neuts (auto) 4.3, Absolute Lymphs (auto) 2.46, Total Counted Not Reportable 12/11/17 05:24: PT 13.0, INR 1.0, APTT 33.1 12/11/17 05:24: Sodium 137, Potassium 3.5, Chloride 101, Carbon Dioxide 29.0, Anion Gap 7, BUN 17, Creatinine 1.06 H, Estim Creat Clear Calc 39.53, Est GFR ( MDRD) Af Amer 68, Est GFR (MDRD) Non-Af 56 L, BUN/Creatinine Ratio 16.0, Glucose 171 H, Calcium 8.2 L, Total Bilirubin 0.10 L, Direct Bilirubin < 0.05, AST 16, ALT 15, Alkaline Phosphatase 116, Total Protein 6.9, Albumin 2.7 L, Globulin 4.2 12/11/17 06:33: POC Glucose 199 H Current Medications Acetaminophen (Tylenol) 650 mg PO Q6H PRN PRN PRN Reason: Mild Pain (1-3)/Temp > 100.7 F Last Admin: 12/11/17 04:01 Dose: 650 mg Amlodipine Besylate (Norvasc) 10 mg PO QHS [facility] Last Admin: 12/10/17 20:52 Dose: 10 mg Buspirone HCl (Buspar) 5 mg PO TID [facility] Last Admin: 12/11/17 05:18 Dose: Not Given Clopidogrel Bisulfate (Plavix) 75 mg PO DAILY [facility] Dextrose (D50w Syringe) 0 gm IV X1 PRN; Protocol PRN Reason: Hypoglycemia Diphenhydramine HCl (Benadryl) 50 mg PO BID PRN PRN PRN Reason: ITCHING Last Admin: 12/10/17 20:51 Dose: 50 mg Glucagon () 1 mg IM .X1 PRN PRN Reason: Hypoglycemia Insulin Human Lispro (Humalog Kwikpen (Bkc)) 0 unit SQ TIDAC [facility] PRN Reason: Protocol Last Admin: 12/11/17 06:54 Dose: Not Given Lisinopril (Zestril) 10 mg PO DAILY [facility] Last Admin: 12/10/17 17:17 Dose: 10 mg Magnesium Hydroxide (Milk Of Magnesia) 30 ml PO DAILY PRN PRN PRN Reason: Constipation Nutritional Formula (Lactose Free) (Glucerna Shake) 120 ml PO TIDCM [facility] Last Admin: 12/11/17 07:51 Dose: Not Given Ondansetron HCl (Zofran) 4 mg IV Q8H PRN PRN PRN Reason: NAUSEA Oxycodone HCl (Oxyir) 5 - 10 mg PO Q4H PRN PRN PRN Reason: MOD-SEVERE PAIN (4-10/10) Last Admin: 12/10/17 21:03 Dose: 10 mg Sertraline HCl (Zoloft) 25 mg PO DINNER [facility] Last Admin: 12/10/17 17:09 Dose: 25 mg Simethicone (Mylicon) 120 mg PO TID PRN PRN PRN Reason: GAS PAIN Sodium Chloride () 5 - 30 ml IV UD PRN PRN Reason: SALINE FLUSH Triamcinolone Acetonide (Triamcinolone Acetonide) 1 applic TOPICAL DAILY [facility] Last Admin: 12/10/17 20:51 Dose: 1 applicatio Medical Necessity - Tobacco Use Smoking Status: Former smoker Tobacco Use: Cigarettes Assessment/Plan All Active Problems (Last Reviewed 12/10/17 @ 11:23 by Jose Jopperi, DO) 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 Consult has been placed to podiatry plan is for patient undergo surgical intervention 1. Left fifth toe gangrene patient with underlying peripheral arterial disease as well as diabetes mellitus type 2. Consult was placed to podiatry DrToribio Laird is for patient undergo surgical intervention on 12/11/2017 2. Peripheral arterial disease status post right carotid endarterectomy as well as angioplasty involving popliteal as well as supra superficial femoral artery on 11/14/[address] Jimenez 3. Diabetes mellitus type II: Controlled diabetes placed on Accu-Cheks a.c. and at bedtime and covered with sliding scale insulin 4. Hypertension-blood pressure controlled, home medications continued with dose adjustment as needed X 5. Tobacco dependence counseled on cessation, offered nicotine patch for tobacco cravings 6. DVT prophylaxis SCDs for now with plans to initiate chemoprophylaxis once surgery is performed Active Medications Acetaminophen (Tylenol) 650 mg PO Q6H PRN PRN PRN Reason: Mild Pain (1-3)/Temp > 100.7 F Last Admin: 12/11/17 04:01 Dose: 650 mg Amlodipine Besylate (Norvasc) 10 mg PO QHS [facility] Last Admin: 12/10/17 20:52 Dose: 10 mg Buspirone HCl (Buspar) 5 mg PO TID [facility] Last Admin: 12/11/17 05:18 Dose: Not Given Clopidogrel Bisulfate (Plavix) 75 mg PO DAILY [facility] Dextrose (D50w Syringe) 0 gm IV X1 PRN; Protocol PRN Reason: Hypoglycemia Diphenhydramine HCl (Benadryl) 50 mg PO BID PRN PRN PRN Reason: ITCHING Last Admin: 12/10/17 20:51 Dose: 50 mg Glucagon () 1 mg IM .X1 PRN PRN Reason: Hypoglycemia Insulin Human Lispro (Humalog Kwikpen (Bkc)) 0 unit SQ TIDAC [facility] PRN Reason: Protocol Last Admin: 12/11/17 11:40 Dose: 2 units Lisinopril (Zestril) 10 mg PO DAILY [facility] Last Admin: 12/11/17 10:21 Dose: 10 mg Magnesium Hydroxide (Milk Of Magnesia) 30 ml PO DAILY PRN PRN PRN Reason: Constipation Nutritional Formula (Lactose Free) (Glucerna Shake) 120 ml PO TIDCM [facility] Last Admin: 12/11/17 11:18 Dose: Not Given Ondansetron HCl (Zofran) 4 mg IV Q8H PRN PRN PRN Reason: NAUSEA Oxycodone HCl (Oxyir) 5 - 10 mg PO Q4H PRN PRN PRN Reason: MOD-SEVERE PAIN (4-10/10) Last Admin: 12/10/17 21:03 Dose: 10 mg Sertraline HCl (Zoloft) 25 mg PO DINNER [facility] Last Admin: 12/10/17 17:09 Dose: 25 mg Simethicone (Mylicon) 120 mg PO TID PRN PRN PRN Reason: GAS PAIN Sodium Chloride () 5 - 30 ml IV UD PRN PRN Reason: SALINE FLUSH Triamcinolone Acetonide (Triamcinolone Acetonide) 1 applic TOPICAL DAILY [facility] Last Admin: 12/11/17 10:20 Dose: Not Given Code Visit Inpatient E&M: 41090 Subs Hosp L3
[2017-12-11] MEDS: Lisinopril 10 MG Tablet PO (10:21)
--- NOTE | 2017-12-11 11:28 | CASEMGMT ---
SAM GUTHRIE Face to Face with patient for initial transition planning/care coordination assessment. SAM GUTHRIE introduced self and role at [facility]. Patient lying in bed, alert and oriented. Patient willing to participate in assessment and is able to answer all questions appropriately. Care providers, pharmacy, and demographics verified. See link attached. Patient wishes to discharge to TCU/RU at discharge. SAM GUTHRIE updated patient that SW would check bed availability and precert would need to be obtained from insurance. Patient states she has no further needs or concerns at this time. SAM GUTHRIE updated JAX Burris regarding patient's request for placement at discharge s/p right 5th toe amputation. Disposition Plan: TCU vs RU vs SNF
[2017-12-11] MEDS: Insulin Lispro 100 UNIT/ML INSULN.PEN SQ (11:40)
[2017-12-11 11:45] LABS: Bedside Glucose 214 mg/dL (70-110)
--- NOTE | 2017-12-11 13:17 | CASEMGMT ---
Social Work Note RN JERRI Bansal updated this worker that pt is interested in TCU/RU at discharge. TCU doesn't accept pt's insurance ([employer]) and this worker placed a call to Jeanie who states that she doesn't have any beds available on inpatient rehab. SW in to speak with pt regarding discharge plans. SW introduced self and role at [facility]. SW informed pt that TCU doesn't accept pt's insurance and RU doesn't have any beds available. SW informed pt that she will need to decide on another facility for referral to be sent. SW provided verbal list and provided pt with list of in network facilities for SNF. Pt states that she will need to talk to her family about placement at discharge. Pt is scheduled to have surgery this afternoon. SW will check back with pt at a later time to confirm discharge planning. Plan: SNF pending acceptance and pre-cert Steph Burris SHINGLES ROOFER HELPER, DE ICER INSTALLER
--- NOTE | 2017-12-11 14:11 | NURSING ---
call placed to AC report given to Cassandra Lackey who will be recieving pt
[2017-12-11 14:36] LABS: Bedside Glucose 148 mg/dL (70-110)
--- NOTE | 2017-12-11 18:00 | OP.PN_ITS ---
Immediate Post-Op Note Date of Procedure: 12/11/17 Primary Surgeon/Physician: Michael Laird DPM progressive die maker: None Pre-Operative Diagnosis: gangrene of left 5th toe Post-Operative Diagnosis: gangrene of left 5th toe Surgery/Procedure Performed:: partial 5th ray amputation of left foot Description of Surgical Findings:: no drainage or local signs of infection present during case good bleeding noted thru case Estimated Blood Loss: <5 cc Specimen's removed: 5th metatarsal for pathology and micro. pcr Type of Anesthesia:: Local MAC
--- NOTE | 2017-12-11 18:04 | PCM.OPRPT ---
Report of Operation Date of Procedure: 12/11/17 Pre-Operative Diagnosis: gangrene of left 5th toe Post-Operative Diagnosis: gangrene of left 5th toe Surgery/Procedure Performed:: partial 5th ray amputation of left foot Description of Surgical Findings:: Patient is a 62 year old female with history of pad who has gangrene of left 5th toe. She underwent vascular intervention by Dr. Siva Jimenez last month. She was scheduled for amputation in late October but failed to make her appointment with Dr. Evens Jimenez for surgical clearance. she is admitted to [facility] for amputation. she has dry gangrene of left 5th toe. we have discussed plan of amputation. I have discussed risks of surgery not limited to infection, pain, swelling, bleeding, nonhealing of amputation, need for more proximal amputation not limited to foot or leg. I have examined patient and have found pulses to be palpable and audible. I have discussed repeat pvr but she would like to hold on this and proceed with amputation. I have discussed all risks with patient not limited to the above. she consents to proceed with surgery. I have also spoken with patient regarding plan for snf placement at discharge. she is in agreement. patient was transferred from pre-op holding area to operating room and placed on operating room table in supine position. she was identified by name and procedure. the left foot was prepped and draped in usual aseptic technique. Time out was performed making note of procedure and personal involved. the left foot was injected with 8 cc of 1% lidocaine plain. attention was directed to left foot. a tourniquet had been applied but never used. a lateral incision along 5th ray was performed. the entire black toe at level of mtpj was disarticulated. I dissected down to metatarsal shaft. using a sagittal saw, the distal 5th ray was resected from dorsal distal to plantar proximal and cut slightly oblique from lateral to medial. the foot was then irrigated with pulse lavage, about 3000 cc. clean instruments were then exchanged. a sample was taken from remaining 5th metatarsal and sent for pathology and micro. a wound culture was also taken. the incision was then reapproximated in layers. hemostasis was obtained prior to closure. a post-op dressing was applied consisting of adaptic, 4x4, faviola and brittany it should be noted that there is a very small abrasion of anterior ankle that was well padded with adaptic, 4x4 guaze and brittany patient was transferred to [facility] in stable condition will plan for admission to rehab in 1-2 days functional skills tutor: None Type of Anesthesia:: Local MAC Specimen's removed: 5th metatarsal for pathology and micro. pcr Drains: None Estimated Blood Loss (mL): <5 cc - Admit VTE Documentation VTE Present on Admission: No VTE Pharm Prophylaxis ordered?: No
--- NOTE | 2017-12-11 18:10 | RAD_ITS ---
STUDY: X-RAY - LEFT FOOT CLINICAL: Female, 62 years old. Post operative assessment TECHNIQUE: Three view(s) of the foot were obtained. COMPARISON: None. FINDINGS: Bones: There is surgical resection of the distal fifth metatarsal and fifth toe. There is a moderate spur off the inferior calcaneus. Joints: The visualized joints are unremarkable. Soft tissues: There is soft tissue swelling and air laterally after surgery. Foreign body: None RAD/Foot min 3 Views IMPRESSION: There are surgical changes laterally after amputation of the fifth toe and distal fifth metatarsal. Electronically Signed: Petty Richards MD at 18:56 EDT Tel Direct: [phone], Service support ,
--- NOTE | 2017-12-11 18:13 | OP.PCM_ITS ---
Report of Operation Date of Procedure: 12/11/17 Pre-Operative Diagnosis: gangrene of left 5th toe Post-Operative Diagnosis: gangrene of left 5th toe Surgery/Procedure Performed:: partial 5th ray amputation of left foot Description of Surgical Findings:: Patient is a 62 year old female with history of pad who has gangrene of left 5th toe. She underwent vascular intervention by Dr. Siva Jimenez last month. She was scheduled for amputation in late October but failed to make her appointment with Dr. Evens Jimenez for surgical clearance. she is admitted to [facility] for [facility]putation. she has dry gangrene of left 5th toe. we have discussed plan of amputation. I have discussed risks of surgery not limited to infection, pain, swelling, bleeding, nonhealing of amputation, need for more proximal amputation not limited to foot or leg. I have examined patient and have found pulses to be palpable and audible. I have discussed repeat pvr but she would like to hold on this and proceed with amputation. I have discussed all risks with patient not limited to the above. she consents to proceed with surgery. I have also spoken with patient regarding plan for snf placement at discharge. she is in agreement. patient was transferred from pre-op holding area to operating room and placed on operating room table in supine position. she was identified by name and procedure. the left foot was prepped and draped in usual aseptic technique. Time out was performed making note of procedure and personal involved. the left foot was injected with 8 cc of 1% lidocaine plain. attention was directed to left foot. a tourniquet had been applied but never used. a lateral incision along 5th ray was performed. the entire black toe at level of mtpj was disarticulated. I dissected down to metatarsal shaft. using a sagittal saw, the distal 5th ray was resected from dorsal distal to plantar proximal and cut slightly oblique from lateral to medial. the foot was then irrigated with pulse lavage, about 3000 cc. clean instruments were then exchanged. a sample was taken from remaining 5th metatarsal and sent for pathology and micro. a wound culture was also taken. the incision was then reapproximated in layers. hemostasis was obtained prior to closure. a post-op dressing was applied consisting of adaptic, 4x4, faviola and brittany it should be noted that there is a very small abrasion of anterior ankle that was well padded with adaptic, 4x4 guaze and brittany patient was transferred to [facility] in stable condition will plan for admission to rehab in 1-2 days university relations director: None Type of Anesthesia:: Local MAC Specimen's removed: 5th metatarsal for pathology and micro. pcr Drains: None Estimated Blood Loss (mL): <5 cc - Admit VTE Documentation VTE Present on Admission: No VTE Pharm Prophylaxis ordered?: No
[2017-12-11] MEDS: Glucerna Shake 120 ML LIQUID PO (18:58)
[2017-12-11] MEDS: Clopidogrel Bisulfate 75 MG Tablet PO (18:58)
[2017-12-11] MEDS: busPIRone 5 MG Tablet PO ×2 (18:58→20:32)
[2017-12-11] MEDS: Sertraline 50 MG Tablet 25 MG PO (18:59)
[2017-12-11 19:02] LABS: M R Staph aureus DNA By PCR Negative (Negative); Probe Check PASS; Specimen Processing Control PASS; Staph aureus DNA By PCR NEGATIVE (Negative)
[2017-12-11] MEDS: oxyCODONE 5 MG Tablet PO ×2 (19:03→20:31)
[2017-12-11 19:15] LABS: Bedside Glucose 140 mg/dL (70-110)
[2017-12-11] MEDS: DiphenhydrAMINE 25 MG Capsule 50 MG PO (20:31)
[2017-12-11] MEDS: amLODIPine 10 MG Tablet PO (20:32)
[2017-12-11] MEDS: Triamcinolone 0.5% Cream 1 APPLIC TOPICAL (20:34)
[2017-12-11 22:45] LABS: Bedside Glucose 169 mg/dL (70-110)
[2017-12-11] MEDS: Enalaprilat 1.25 MG/ML Vial IV (23:05)
[2017-12-11] MEDS: 0.9% NaCl Peripheral Flush Adult/Peds IV ×2 (23:05→23:11)
[2017-12-11] MEDS: Morphine 4 MG/ML Syringe IV (23:10)
[2017-12-12] VITALS (7 sets, daily range): BP systolic 132–188; BP diastolic 56–84; PULSE 73–96; RESP 18; TEMP 36.5–36.9; O2SAT 96–100
[2017-12-12] MEDS: oxyCODONE 5 MG Tablet PO ×5 (00:36→20:46)
[2017-12-12] MEDS: 0.9% NaCl Peripheral Flush Adult/Peds IV ×4 (01:10→06:01)
[2017-12-12] MEDS: Morphine 4 MG/ML Syringe IV ×3 (01:40→06:01)
[2017-12-12] MEDS: busPIRone 5 MG Tablet PO ×3 (05:44→21:29)
[2017-12-12] MEDS: Insulin Lispro 100 UNIT/ML INSULN.PEN SQ ×3 (06:38→16:34)
[2017-12-12] MEDS: Acetaminophen 325 MG Tablet 650 MG PO (06:41)
[2017-12-12 06:45] LABS: Bedside Glucose 189 mg/dL (70-110)
--- NOTE | 2017-12-12 07:36 | PCM.PN.SRG ---
Patient Problems: Active and Suspected Problems (Last Reviewed 12/10/17 @ 11:23 by Jose Neely DO) Gangrene (Acute) Subjective: patient seen this morning. she denies n/v/f/c. she does have complaint of pain. Objective: alert and orientated x 3. she does not appear in any distress surgical incision to left foot is approximated with no active bleeding or signs of infection. no signs of duskyness at one day post-op there is small eschar to anterior ankle that appears noninfected. - Physical Exam Vital Signs Temp Pulse Resp BP Pulse Ox 98.3 F 73 18 132/68 H 98 12/12/17 01:58 12/12/17 02:05 12/12/17 01:58 12/12/17 01:58 12/12/17 01:58 Oxygen Delivery Method Room Air Weight: 58.2 kg Body Mass Index (BMI) 25.0 Intake and Output for Last 24 Hours 12/10/17 12/11/17 12/12/17 23:59 23:59 23:59 Intake Total 1000 / 1000 1700 / 1700 727 / 727 Balance 1000 / 1000 1700 / 1700 727 / 727 Laboratory Tests Past 24 Hrs 12/11/17 17:00 S.aureus Protein A PCR NEGATIVE MRSA (PCR) Negative POC Glucose 12/12/17 12/11/17 12/11/17 06:37 22:40 18:57 POC Glucose 189 H 169 H 140 H 12/11/17 12/11/17 14:28 11:38 POC Glucose 148 H 214 H Medical Necessity - Tobacco Use Smoking Status: Former smoker Tobacco Use: Cigarettes Assessment/Plan All Active Problems (Last Reviewed 12/10/17 @ 11:23 by Jose Neely DO) 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 no signs of infection. new dressing applied today. will await intra-op cultures as I did send what appeared to be healthy bone for pathology and micro. should this come back + for osteomyelitis, will need antibiotics. low suspicion for infection. plan for snf placement once cultures finalize small eschar of anterior ankle. she has sores to b/l lower legs and arms. band aid applied. applied bandage only to foot to prevent rubbing to anterior ankle wound with dorsiflexion. she will need to resume partial weightbearing to left heel with surgical shoe and crutches/or walker.
[2017-12-12] MEDS: Glucerna Shake 120 ML LIQUID PO ×3 (07:47→16:30)
[2017-12-12] MEDS: Clopidogrel Bisulfate 75 MG Tablet PO (07:48)
[2017-12-12] MEDS: Lisinopril 10 MG Tablet PO (07:48)
[2017-12-12] MEDS: Triamcinolone 0.5% Cream 1 APPLIC TOPICAL (07:48)
--- NOTE | 2017-12-12 08:00 | PCM.PN.HOSP ---
Patient Problems: Active and Suspected Problems (Last Reviewed 12/10/17 @ 11:23 by Jose Neely DO) Gangrene (Acute) Subjective: Patient underwent partial 5th ray amputation of left foot on 12/11/2017. Patient complains of pain in the left foot this a.m. Cultures were sent following patient amputation results pending. Objective: GENERAL: cooperative . HEENT: Clear conjunctiva, NECK; supple, normal thyroid, CHEST: Clear to auscultation bilaterally, HEART: Regular S1 S2, no audible murmurs ABDOMEN: soft, normoactive bowel sounds, RECTAL: deferred EXTREMITIES: Left foot in surgical dressing HARDWARE TECHNICIAN: Awake; no lateralizing signs. SKIN: Described above Vitals/I&O's: Vital Signs Temp Pulse Resp BP Pulse Ox 97.7 F L 73 18 140/56 H 97 12/12/17 07:41 12/12/17 07:55 12/12/17 07:41 12/12/17 07:41 12/12/17 07:41 Oxygen Delivery Method Room Air Weight: 58.2 kg Body Mass Index (BMI) 25.0 Intake and Output for Last 24 Hours 12/10/17 12/11/17 12/12/17 23:59 23:59 23:59 Intake Total 1000 / 1000 1700 / 1700 727 / 727 Balance 1000 / 1000 1700 / 1700 727 / 727 Laboratory Results 12/11/17 11:38: POC Glucose 214 H 12/11/17 14:28: POC Glucose 148 H 12/11/17 17:00: S.aureus Protein A PCR NEGATIVE, MRSA (PCR) Negative 12/11/17 18:57: POC Glucose 140 H 12/11/17 22:40: POC Glucose 169 H 12/12/17 06:37: POC Glucose 189 H Current Medications Acetaminophen (Tylenol) 650 mg PO Q6H PRN PRN PRN Reason: Mild Pain (1-3)/Temp > 100.7 F Last Admin: 12/12/17 06:41 Dose: 650 mg Amlodipine Besylate (Norvasc) 10 mg PO QHS [facility] Last Admin: 12/11/17 20:32 Dose: 10 mg Buspirone HCl (Buspar) 5 mg PO TID [facility] Last Admin: 12/12/17 05:44 Dose: 5 mg Clopidogrel Bisulfate (Plavix) 75 mg PO DAILY [facility] Last Admin: 12/12/17 07:48 Dose: 75 mg Dextrose (D50w Syringe) 0 gm IV X1 PRN; Protocol PRN Reason: Hypoglycemia Diphenhydramine HCl (Benadryl) 50 mg PO BID PRN PRN PRN Reason: ITCHING Last Admin: 12/11/17 20:31 Dose: 50 mg Enalaprilat (Vasotec) 1.25 mg IV Q6H PRN PRN PRN Reason: BP >160/100 Last Admin: 12/11/17 23:05 Dose: 1.25 mg Glucagon () 1 mg IM .X1 PRN PRN Reason: Hypoglycemia Insulin Human Lispro (Humalog Kwikpen (Bkc)) 0 unit SQ TIDAC [facility] PRN Reason: Protocol Last Admin: 12/12/17 06:38 Dose: 1 units Lisinopril (Zestril) 10 mg PO DAILY [facility] Last Admin: 12/12/17 07:48 Dose: 10 mg Magnesium Hydroxide (Milk Of Magnesia) 30 ml PO DAILY PRN PRN PRN Reason: Constipation Morphine Sulfate () 4 mg IV Q2H PRN PRN PRN Reason: SEVERE PAIN (6-10/10) Last Admin: 12/12/17 06:01 Dose: 4 mg Nutritional Formula (Lactose Free) (Glucerna Shake) 120 ml PO TIDCM [facility] Last Admin: 12/12/17 07:47 Dose: 120 ml Ondansetron HCl (Zofran) 4 mg IV Q8H PRN PRN PRN Reason: NAUSEA Oxycodone HCl (Oxyir) 5 - 10 mg PO Q4H PRN PRN PRN Reason: SEVERE PAIN (6-10/10) Last Admin: 12/12/17 07:52 Dose: 10 mg Sertraline HCl (Zoloft) 25 mg PO DINNER [facility] Last Admin: 12/11/17 18:59 Dose: 25 mg Simethicone (Mylicon) 120 mg PO TID PRN PRN PRN Reason: GAS PAIN Sodium Chloride () 5 - 30 ml IV UD PRN PRN Reason: SALINE FLUSH Last Admin: 12/12/17 06:01 Dose: 20 ml Triamcinolone Acetonide (Triamcinolone Acetonide) 1 applic TOPICAL DAILY [facility] Last Admin: 12/12/17 07:48 Dose: 1 applicatio Medical Necessity - Tobacco Use Smoking Status: Former smoker Tobacco Use: Cigarettes Assessment/Plan All Active Problems (Last Reviewed 12/10/17 @ 11:23 by Jose Neely DO) 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 Consult has been placed to podiatry plan is for patient undergo surgical intervention 1. Left fifth toe gangrene patient with underlying peripheral arterial disease as well as diabetes mellitus type 2. Consult was placed to podiatry DrToriboi Laird who did perform partial 5th ray amputation of left foot on 12/11/2017. Cultures were sent following patient amputation results pending. 2. Peripheral arterial disease status post right carotid endarterectomy as well as angioplasty involving popliteal as well as supra superficial femoral artery on 11/14/[address] Jimenez 3. Diabetes mellitus type II: Controlled diabetes placed on Accu-Cheks a.c. and at bedtime and covered with sliding scale insulin 4. Hypertension-blood pressure controlled, home medications continued with dose adjustment as needed X 5. Tobacco dependence counseled on cessation, offered nicotine patch for tobacco cravings 6. DVT prophylaxis SCDs for now with plans to initiate chemoprophylaxis once surgery is performed Active Medications Acetaminophen (Tylenol) 650 mg PO Q6H PRN PRN PRN Reason: Mild Pain (1-3)/Temp > 100.7 F Last Admin: 12/11/17 04:01 Dose: 650 mg Amlodipine Besylate (Norvasc) 10 mg PO QHS [facility] Last Admin: 12/10/17 20:52 Dose: 10 mg Buspirone HCl (Buspar) 5 mg PO TID [facility] Last Admin: 12/11/17 05:18 Dose: Not Given Clopidogrel Bisulfate (Plavix) 75 mg PO DAILY [facility] Dextrose (D50w Syringe) 0 gm IV X1 PRN; Protocol PRN Reason: Hypoglycemia Diphenhydramine HCl (Benadryl) 50 mg PO BID PRN PRN PRN Reason: ITCHING Last Admin: 12/10/17 20:51 Dose: 50 mg Glucagon () 1 mg IM .X1 PRN PRN Reason: Hypoglycemia Insulin Human Lispro (Humalog Kwikpen (Bkc)) 0 unit SQ TIDAC ALBERTO PRN Reason: Protocol Last Admin: 12/11/17 11:40 Dose: 2 units Lisinopril (Zestril) 10 mg PO DAILY [facility] Last Admin: 12/11/17 10:21 Dose: 10 mg Magnesium Hydroxide (Milk Of Magnesia) 30 ml PO DAILY PRN PRN PRN Reason: Constipation Nutritional Formula (Lactose Free) (Glucerna Shake) 120 ml PO TIDCM [facility] Last Admin: 12/11/17 11:18 Dose: Not Given Ondansetron HCl (Zofran) 4 mg IV Q8H PRN PRN PRN Reason: NAUSEA Oxycodone HCl (Oxyir) 5 - 10 mg PO Q4H PRN PRN PRN Reason: MOD-SEVERE PAIN (4-10/10) Last Admin: 12/10/17 21:03 Dose: 10 mg Sertraline HCl (Zoloft) 25 mg PO DINNER [facility] Last Admin: 12/10/17 17:09 Dose: 25 mg Simethicone (Mylicon) 120 mg PO TID PRN PRN PRN Reason: GAS PAIN Sodium Chloride () 5 - 30 ml IV UD PRN PRN Reason: SALINE FLUSH Triamcinolone Acetonide (Triamcinolone Acetonide) 1 applic TOPICAL DAILY [facility] Last Admin: 12/11/17 10:20 Dose: Not Given Code Visit Inpatient E&M: 78981 [facility] L[facility]
--- NOTE | 2017-12-12 08:04 | PN_ITS ---
Patient Problems: Active and Suspected Problems (Last Reviewed 12/10/17 @ 11:23 by Jose Neely DO) Gangrene (Acute) Subjective: Patient underwent partial 5th ray amputation of left foot on 12/11/2017. Patient complains of pain in the left foot this a.m. Cultures were sent following patient amputation results pending. Objective: GENERAL: cooperative . HEENT: Clear conjunctiva, NECK; supple, normal thyroid, CHEST: Clear to auscultation bilaterally, HEART: Regular S1 S2, no audible murmurs ABDOMEN: soft, normoactive bowel sounds, RECTAL: deferred EXTREMITIES: Left foot in surgical dressing FERRIS WHEEL ATTENDANT: Awake; no lateralizing signs. SKIN: Described above Vitals/I&O's: Vital Signs Temp Pulse Resp BP Pulse Ox 97.7 F L 73 18 140/56 H 97 12/12/17 07:41 12/12/17 07:55 12/12/17 07:41 12/12/17 07:41 12/12/17 07:41 Oxygen Delivery Method Room Air Weight: 58.2 kg Body Mass Index (BMI) 25.0 Intake and Output for Last 24 Hours 12/10/17 12/11/17 12/12/17 23:59 23:59 23:59 Intake Total 1000 / 1000 1700 / 1700 727 / 727 Balance 1000 / 1000 1700 / 1700 727 / 727 Laboratory Results 12/11/17 11:38: POC Glucose 214 H 12/11/17 14:28: POC Glucose 148 H 12/11/17 17:00: S.aureus Protein A PCR NEGATIVE, MRSA (PCR) Negative 12/11/17 18:57: POC Glucose 140 H 12/11/17 22:40: POC Glucose 169 H 12/12/17 06:37: POC Glucose 189 H Current Medications Acetaminophen (Tylenol) 650 mg PO Q6H PRN PRN PRN Reason: Mild Pain (1-3)/Temp > 100.7 F Last Admin: 12/12/17 06:41 Dose: 650 mg Amlodipine Besylate (Norvasc) 10 mg PO QHS [facility] Last Admin: 12/11/17 20:32 Dose: 10 mg Buspirone HCl (Buspar) 5 mg PO TID [facility] Last Admin: 12/12/17 05:44 Dose: 5 mg Clopidogrel Bisulfate (Plavix) 75 mg PO DAILY [facility] Last Admin: 12/12/17 07:48 Dose: 75 mg Dextrose (D50w Syringe) 0 gm IV X1 PRN; Protocol PRN Reason: Hypoglycemia Diphenhydramine HCl (Benadryl) 50 mg PO BID PRN PRN PRN Reason: ITCHING Last Admin: 12/11/17 20:31 Dose: 50 mg Enalaprilat (Vasotec) 1.25 mg IV Q6H PRN PRN PRN Reason: BP >160/100 Last Admin: 12/11/17 23:05 Dose: 1.25 mg Glucagon () 1 mg IM .X1 PRN PRN Reason: Hypoglycemia Insulin Human Lispro (Humalog Kwikpen (Bkc)) 0 unit SQ TIDAC [facility] PRN Reason: Protocol Last Admin: 12/12/17 06:38 Dose: 1 units Lisinopril (Zestril) 10 mg PO DAILY [facility] Last Admin: 12/12/17 07:48 Dose: 10 mg Magnesium Hydroxide (Milk Of Magnesia) 30 ml PO DAILY PRN PRN PRN Reason: Constipation Morphine Sulfate () 4 mg IV Q2H PRN PRN PRN Reason: SEVERE PAIN (6-10/10) Last Admin: 12/12/17 06:01 Dose: 4 mg Nutritional Formula (Lactose Free) (Glucerna Shake) 120 ml PO TIDCM [facility] Last Admin: 12/12/17 07:47 Dose: 120 ml Ondansetron HCl (Zofran) 4 mg IV Q8H PRN PRN PRN Reason: NAUSEA Oxycodone HCl (Oxyir) 5 - 10 mg PO Q4H PRN PRN PRN Reason: SEVERE PAIN (6-10/10) Last Admin: 12/12/17 07:52 Dose: 10 mg Sertraline HCl (Zoloft) 25 mg PO DINNER [facility] Last Admin: 12/11/17 18:59 Dose: 25 mg Simethicone (Mylicon) 120 mg PO TID PRN PRN PRN Reason: GAS PAIN Sodium Chloride () 5 - 30 ml IV UD PRN PRN Reason: SALINE FLUSH Last Admin: 12/12/17 06:01 Dose: 20 ml Triamcinolone Acetonide (Triamcinolone Acetonide) 1 applic TOPICAL DAILY [facility] Last Admin: 12/12/17 07:48 Dose: 1 applicatio Medical Necessity - Tobacco Use Smoking Status: Former smoker Tobacco Use: Cigarettes Assessment/Plan All Active Problems (Last Reviewed 12/10/17 @ 11:23 by Jose Neely DO) 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 Consult has been placed to podiatry plan is for patient undergo surgical intervention 1. Left fifth toe gangrene patient with underlying peripheral arterial disease as well as diabetes mellitus type 2. Consult was placed to podiatry DrToribio Laird who did perform partial 5th ray amputation of left foot on 12/11/2017. Cultures were sent following patient amputation results pending. 2. Peripheral arterial disease status post right carotid endarterectomy as well as angioplasty involving popliteal as well as supra superficial femoral artery on 11/14/[address] Jimenez 3. Diabetes mellitus type II: Controlled diabetes placed on Accu-Cheks a.c. and at bedtime and covered with sliding scale insulin 4. Hypertension-blood pressure controlled, home medications continued with dose adjustment as needed X 5. Tobacco dependence counseled on cessation, offered nicotine patch for tobacco cravings 6. DVT prophylaxis SCDs for now with plans to initiate chemoprophylaxis once surgery is performed Active Medications Acetaminophen (Tylenol) 650 mg PO Q6H PRN PRN PRN Reason: Mild Pain (1-3)/Temp > 100.7 F Last Admin: 12/11/17 04:01 Dose: 650 mg Amlodipine Besylate (Norvasc) 10 mg PO QHS [facility] Last Admin: 12/10/17 20:52 Dose: 10 mg Buspirone HCl (Buspar) 5 mg PO TID [facility] Last Admin: 12/11/17 05:18 Dose: Not Given Clopidogrel Bisulfate (Plavix) 75 mg PO DAILY [facility] Dextrose (D50w Syringe) 0 gm IV X1 PRN; Protocol PRN Reason: Hypoglycemia Diphenhydramine HCl (Benadryl) 50 mg PO BID PRN PRN PRN Reason: ITCHING Last Admin: 12/10/17 20:51 Dose: 50 mg Glucagon () 1 mg IM .X1 PRN PRN Reason: Hypoglycemia Insulin Human Lispro (Humalog Kwikpen (Bkc)) 0 unit SQ TIDAC [facility] PRN Reason: Protocol Last Admin: 12/11/17 11:40 Dose: 2 units Lisinopril (Zestril) 10 mg PO DAILY [facility] Last Admin: 12/11/17 10:21 Dose: 10 mg Magnesium Hydroxide (Milk Of Magnesia) 30 ml PO DAILY PRN PRN PRN Reason: Constipation Nutritional Formula (Lactose Free) (Glucerna Shake) 120 ml PO TIDCM [facility] Last Admin: 12/11/17 11:18 Dose: Not Given Ondansetron HCl (Zofran) 4 mg IV Q8H PRN PRN PRN Reason: NAUSEA Oxycodone HCl (Oxyir) 5 - 10 mg PO Q4H PRN PRN PRN Reason: MOD-SEVERE PAIN (4-10/10) Last Admin: 12/10/17 21:03 Dose: 10 mg Sertraline HCl (Zoloft) 25 mg PO DINNER [facility] Last Admin: 12/10/17 17:09 Dose: 25 mg Simethicone (Mylicon) 120 mg PO TID PRN PRN PRN Reason: GAS PAIN Sodium Chloride () 5 - 30 ml IV UD PRN PRN Reason: SALINE FLUSH Triamcinolone Acetonide (Triamcinolone Acetonide) 1 applic TOPICAL DAILY [facility] Last Admin: 12/11/17 10:20 Dose: Not Given Code Visit Inpatient E&M: 22474 [facility] Hosp L3
--- NOTE | 2017-12-12 10:41 | CASEMGMT ---
Social Work Note SW met with pt to confirm discharge plans. Pt states that her first choice for SNF is [facility], second is [facility] and third is [facility]. SW faxed referral to [facility]. Pt will need pre-cert. Plan: [facility] pending acceptance and pre-cert Steph Burris FOOD AND BEVERAGE SERVER, ETCHED CIRCUIT PROCESSOR
[2017-12-12 11:55] LABS: Bedside Glucose 268 mg/dL (70-110)
--- NOTE | 2017-12-12 14:35 | CASEMGMT ---
Addendum entered by Steph Burris 12/12/17 16:08: Social Work received message from Beatriz at [facility] stating that she has accepted pt and has submitted for pre-cert. Original Note: Social Work Note SW received message from Beatriz at [facility] asking this worker about pt's abscess on buttock, if pt will be discharged on IV antibiotics, and if pt will be agreeable to a semi-private room. Per progress notes, it appears that pt's abscess on buttock is an old abscess and [facility] is providing no current treatment. Dr. Byrd mentioned to this worker earlier that pt won't be discharged on IV antibiotics. SW in to ask pt about semi-private room. Pt is agreeable to semi-private room. SW placed a call back to Beatriz at [facility] and left her a message updating her of this. Plan: [facility] pending acceptance and pre-cert Steph Burris UROLOGY SURGEON, INDUSTRIAL PHARMACIST
[2017-12-12] MEDS: Sertraline 50 MG Tablet 25 MG PO (16:29)
[2017-12-12] MEDS: DiphenhydrAMINE 25 MG Capsule 50 MG PO (16:30)
[2017-12-12 16:40] LABS: Bedside Glucose 161 mg/dL (70-110)
[2017-12-12] MEDS: amLODIPine 10 MG Tablet PO (21:29)
[2017-12-12 21:40] LABS: Bedside Glucose 216 mg/dL (70-110)
[2017-12-13] MEDS: oxyCODONE 5 MG Tablet PO ×5 (00:41→19:59)
[2017-12-13 00:43] VITALS: BP 185/59
[2017-12-13] MEDS: Enalaprilat 1.25 MG/ML Vial IV (00:48)
[2017-12-13] MEDS: Acetaminophen 325 MG Tablet 650 MG PO ×3 (02:30→13:54)
[2017-12-13 02:31] VITALS: BP 200/65; PULSE 81; RESP 14; TEMP 37.1; O2SAT 82
[2017-12-13 04:40] VITALS: BP 155/51
[2017-12-13] MEDS: busPIRone 5 MG Tablet PO ×3 (06:48→21:42)
[2017-12-13] MEDS: Insulin Lispro 100 UNIT/ML INSULN.PEN SQ ×3 (06:51→15:43)
[2017-12-13 07:10] LABS: Bedside Glucose 172 mg/dL (70-110)
--- NOTE | 2017-12-13 07:24 | PCM.PN.SRG ---
Patient Problems: Active and Suspected Problems (Last Reviewed 12/10/17 @ 11:23 by Jose Neely DO) Gangrene (Acute) Subjective: patient seen at bedside this am. complaints of pain. denies n/v/f/c. Objective: alert and orientated x 3 left foot with surgical incision approximated with no signs of infection. there is very little darkening of distal incision. skin does not show any redness. there is pain to palpation of surgical site. no evidence of hematoma. no active drainage. - Physical Exam Vital Signs Temp Pulse Resp BP Pulse Ox 98.7 F 81 14 155/51 H 82 12/13/17 02:31 12/13/17 02:31 12/13/17 02:31 12/13/17 04:40 12/13/17 02:31 Oxygen Delivery Method Room Air Weight: 58.2 kg Body Mass Index (BMI) 25.0 Intake and Output for Last 24 Hours 12/11/17 12/12/17 12/13/17 23:59 23:59 23:59 Intake Total 1700 / 1700 1207 / 1207 700 / 700 Balance 1700 / 1700 1207 / 1207 700 / 700 Microbiology Past 72 Hours 12/11/17 17:00 Gram Stain - Final Tissue - Toe Wound Culture - Preliminary No growth-Final to follow POC Glucose 12/13/17 12/12/17 12/12/17 06:51 21:32 16:33 POC Glucose 172 H 216 H 161 H 12/12/17 11:47 POC Glucose 268 H Medical Necessity - Tobacco Use Smoking Status: Former smoker Tobacco Use: Cigarettes Assessment/Plan All Active Problems (Last Reviewed 12/10/17 @ 11:23 by Jose Neely DO) 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 foot appears stable. skin incision is approximated with no signs of infection. there is very little darkening of incision and I will monitor this closely. betadine was applied to incision and new dressing applied. patient again reminded of potential failure of surgery pending adequate blood flow to amputation site. at this time, there is only very minimal darkening. will evaluate foot tomorrow. cultures show now growth at this time. will await cultures and once final, can arrange discharge.
[2017-12-13 07:44] VITALS: BP 174/66; PULSE 82; RESP 18; TEMP 36.9; O2SAT 98
[2017-12-13] MEDS: Lisinopril 10 MG Tablet PO (07:48)
[2017-12-13] MEDS: Triamcinolone 0.5% Cream 1 APPLIC TOPICAL (07:48)
[2017-12-13] MEDS: Clopidogrel Bisulfate 75 MG Tablet PO (07:51)
[2017-12-13] MEDS: Glucerna Shake 120 ML LIQUID PO ×3 (07:52→15:41)
[2017-12-13] MEDS: 0.9% NaCl Peripheral Flush Adult/Peds IV (07:53)
--- NOTE | 2017-12-13 07:55 | PN_ITS ---
Patient Problems: Active and Suspected Problems (Last Reviewed 12/10/17 @ 11:23 by Jose Neely DO) Gangrene (Acute) Subjective: Patient seen, still c/o pain in the left foot Objective: GENERAL: cooperative . HEENT: Clear conjunctiva, NECK; supple, normal thyroid, CHEST: Clear to auscultation bilaterally, HEART: Regular S1 S2, no audible murmurs ABDOMEN: soft, normoactive bowel sounds, RECTAL: deferred EXTREMITIES: Left foot in surgical dressing SLEDGER: Awake; no lateralizing signs. SKIN: Described above Vitals/I&O's: Vital Signs Temp Pulse Resp BP Pulse Ox 98.4 F 82 18 174/66 H 98 12/13/17 07:44 12/13/17 07:44 12/13/17 07:44 12/13/17 07:44 12/13/17 07:44 Oxygen Delivery Method Room Air Weight: 58.2 kg Body Mass Index (BMI) 25.0 Intake and Output for Last 24 Hours 12/11/17 12/12/17 12/13/17 23:59 23:59 23:59 Intake Total 1700 / 1700 1207 / 1207 700 / 700 Balance 1700 / 1700 1207 / 1207 700 / 700 Microbiology Past 72 Hours 12/11/17 17:00 Tissue - Toe Gram Stain - Final 12/11/17 17:00 Tissue - Toe Wound Culture - Preliminary No growth-Final to follow 12/11/17 17:00 Tissue - Toe Anaerobic Culture - Preliminary No growth in 48 hours. Laboratory Results 12/12/17 11:47: POC Glucose 268 H 12/12/17 16:33: POC Glucose 161 H 12/12/17 21:32: POC Glucose 216 H 12/13/17 06:51: POC Glucose 172 H Current Medications Acetaminophen (Tylenol) 650 mg PO Q6H PRN PRN PRN Reason: Mild Pain (1-3)/Temp > 100.7 F Last Admin: 12/13/17 07:52 Dose: 650 mg Amlodipine Besylate (Norvasc) 10 mg PO QHS [facility]S AT [facility] Last Admin: 12/12/17 21:29 Dose: 10 mg Buspirone HCl (Buspar) 5 mg PO TID [facility] Last Admin: 12/13/17 06:48 Dose: 5 mg Clopidogrel Bisulfate (Plavix) 75 mg PO DAILY [facility]S [facility] Last Admin: 12/13/17 07:51 Dose: 75 mg Dextrose (D50w Syringe) 0 gm IV X1 PRN; Protocol PRN Reason: Hypoglycemia Diphenhydramine HCl (Benadryl) 50 mg PO BID PRN PRN PRN Reason: ITCHING Last Admin: 12/12/17 16:30 Dose: 50 mg Enalaprilat (Vasotec) 1.25 mg IV Q6H PRN PRN PRN Reason: BP >160/100 Last Admin: 12/13/17 00:48 Dose: 1.25 mg Glucagon () 1 mg IM .X1 PRN PRN Reason: Hypoglycemia Insulin Human Lispro (Humalog Kwikpen (Bkc)) 0 unit SQ TIDAC [facility]S [facility] PRN Reason: Protocol Last Admin: 12/13/17 06:51 Dose: 1 units Labetalol HCl (Trandate) 10 mg IV Q4H PRN PRN PRN Reason: BLOOD PRESSURE ELEVATION Lisinopril (Zestril) 10 mg PO DAILY [facility]S [facility] Last Admin: 12/13/17 07:48 Dose: 10 mg Magnesium Hydroxide (Milk Of Magnesia) 30 ml PO DAILY PRN PRN PRN Reason: Constipation Morphine Sulfate () 4 mg IV Q2H PRN PRN PRN Reason: SEVERE PAIN (6-10/10) Last Admin: 12/12/17 06:01 Dose: 4 mg Nutritional Formula (Lactose Free) (Glucerna Shake) 120 ml PO TIDCM [facility] 234 B[facility]S [facility] Last Admin: 12/13/17 07:52 Dose: 120 ml Ondansetron HCl (Zofran) 4 mg IV Q8H PRN PRN PRN Reason: NAUSEA Oxycodone HCl (Oxyir) 5 - 10 mg PO Q4H PRN PRN PRN Reason: SEVERE PAIN (6-10/10) Last Admin: 12/13/17 06:47 Dose: 10 mg Sertraline HCl (Zoloft) 25 mg PO DINNER [facility] 234 [facility]S [facility] Last Admin: 12/12/17 16:29 Dose: 25 mg Simethicone (Mylicon) 120 mg PO TID PRN PRN PRN Reason: GAS PAIN Sodium Chloride () 5 - 30 ml IV UD PRN PRN Reason: SALINE FLUSH Last Admin: 12/13/17 07:53 Dose: 10 ml Triamcinolone Acetonide (Triamcinolone Acetonide) 1 applic TOPICAL DAILY [facility]S [facility] Last Admin: 12/13/17 07:48 Dose: 1 applicatio Medical Necessity - Tobacco Use Smoking Status: Former smoker Tobacco Use: Cigarettes Assessment/Plan All Active Problems (Last Reviewed 12/10/17 @ 11:23 by Jose Neely DO) 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 Consult has been placed to podiatry plan is for patient undergo surgical intervention 1. Left fifth toe gangrene patient with underlying peripheral arterial disease as well as diabetes mellitus type 2. Consult was placed to podiatry DrToribio Laird who did perform partial 5th ray amputation of left foot on 12/11/2017. Cultures were sent following patient amputation results pending. 2. Peripheral arterial disease status post right carotid endarterectomy as well as angioplasty involving popliteal as well as supra superficial femoral artery on 11/14/[address] Jimenez 3. Diabetes mellitus type II: Controlled diabetes placed on Accu-Cheks a.c. and at bedtime and covered with sliding scale insulin 4. Hypertension-blood pressure controlled, home medications continued with dose adjustment as needed X 5. Tobacco dependence counseled on cessation, offered nicotine patch for tobacco cravings 6. DVT prophylaxis SCDs for now with plans to initiate chemoprophylaxis once surgery is performed Active Medications Acetaminophen (Tylenol) 650 mg PO Q6H PRN PRN PRN Reason: Mild Pain (1-3)/Temp > 100.7 F Last Admin: 12/11/17 04:01 Dose: 650 mg Amlodipine Besylate (Norvasc) 10 mg PO QHS [facility] 234 [facility]S [facility] Last Admin: 12/10/17 20:52 Dose: 10 mg Buspirone HCl (Buspar) 5 mg PO TID [facility] 234 [facility]S [facility] Last Admin: 12/11/17 05:18 Dose: Not Given Clopidogrel Bisulfate (Plavix) 75 mg PO DAILY [facility] 234 BEDS AT [facility] Dextrose (D50w Syringe) 0 gm IV X1 PRN; Protocol PRN Reason: Hypoglycemia Diphenhydramine HCl (Benadryl) 50 mg PO BID PRN PRN PRN Reason: ITCHING Last Admin: 12/10/17 20:51 Dose: 50 mg Glucagon () 1 mg IM .X1 PRN PRN Reason: Hypoglycemia Insulin Human Lispro (Humalog Kwikpen (Bkc)) 0 unit SQ TIDAC [facility] PRN Reason: Protocol Last Admin: 12/11/17 11:40 Dose: 2 units Lisinopril (Zestril) 10 mg PO DAILY [facility] 234 B[facility]S [facility] Last Admin: 12/11/17 10:21 Dose: 10 mg Magnesium Hydroxide (Milk Of Magnesia) 30 ml PO DAILY PRN PRN PRN Reason: Constipation Nutritional Formula (Lactose Free) (Glucerna Shake) 120 ml PO TIDCM [facility] 234 BEDS AT [facility] Last Admin: 12/11/17 11:18 Dose: Not Given Ondansetron HCl (Zofran) 4 mg IV Q8H PRN PRN PRN Reason: NAUSEA Oxycodone HCl (Oxyir) 5 - 10 mg PO Q4H PRN PRN PRN Reason: MOD-SEVERE PAIN (4-10/10) Last Admin: 12/10/17 21:03 Dose: 10 mg Sertraline HCl (Zoloft) 25 mg PO DINNER [facility]CLUDE 234 BEDS AT [facility] Last Admin: 12/10/17 17:09 Dose: 25 mg Simethicone (Mylicon) 120 mg PO TID PRN PRN PRN Reason: GAS PAIN Sodium Chloride () 5 - 30 ml IV UD PRN PRN Reason: SALINE FLUSH Triamcinolone Acetonide (Triamcinolone Acetonide) 1 applic TOPICAL DAILY [facility]CLUDE 234 BEDS AT [facility] Last Admin: 12/11/17 10:20 Dose: Not Given Code Visit Inpatient E&M: 69390 [facility] Hosp L2
[2017-12-13 08:43] LABS: Hematocrit 34.2 % (37-47); Hemoglobin 11.2 g/dl (12.0-15.0); Mean Corp Hgb Conc 32.7 g/gl (32-36); Mean Corpuscular Hgb 29.4 pg (27.0-32.0); Mean Corpuscular Volume 89.8 fL (81-99); Mean Platelet Vol. 9.2 fl (6.2-12.0); Platelet Count 351 K/mm3 (150-450); RBC Distribution Width CV 14.4 % (11.6-14.6); RBC Distribution Width SD 47.2 fl (35.1-43.9); Red Blood Count 3.81 M/mm3 (4.2-5.4); White Blood Count 8.8 K/mm3 (4.4-11.0)
[2017-12-13 08:47] LABS: Scan Indicated on CBC? Y/N NO
[2017-12-13 08:58] LABS: Anion Gap 5 (5-15); BUN 17 mg/dL (7-18); BUN/Creat Ratio 14.7 RATIO (10-20); Calcium,Total 8.9 mg/dL (8.5-10.1); Chloride 102 mmol/L (98-107); Creatinine, Serum 1.16 mg/dL (0.55-1.02); EST Glomerular Filtration Rate 50 mL/min (>60); Est Glom Filt Rate - Afr Amer 61 mL/min (>60); Estimated Creatinine Clearance 36.12 ml/min; Glucose 194 mg/dL (74-106); Magnesium 2.3 mg/dL (1.6-2.6); Potassium 4.1 mmol/L (3.5-5.1); Sodium Level 138 mmol/L (136-145)
[2017-12-13 11:35] LABS: Bedside Glucose 238 mg/dL (70-110)
--- NOTE | 2017-12-13 12:19 | CASEMGMT ---
Social Work Note SW received a call from Beatriz at [facility] stating that she hasn't heard back yet from pt's insurance regarding pre-cert. Beatriz wanted this worker to make sure pt knew that she can't smoke on the campus at [facility] as well. [facility] faxed updated clinicals to Beatriz at [facility]. [facility] in to update pt that this worker hasn't heard from pt's insurance at this time. Pt states that she doesn't smoke anymore. [facility] updated Beatriz of this. Plan: [facility] pending acceptance Steph Burris ENVELOPE PRESS OPERATOR, PROGRAM PROJECT MANAGER
[2017-12-13 13:48] VITALS: BP 157/78; PULSE 85; RESP 16; TEMP 36.4; O2SAT 96
[2017-12-13] MEDS: Sertraline 50 MG Tablet 25 MG PO (15:44)
[2017-12-13 19:50] VITALS: BP 176/82; PULSE 79; RESP 16; TEMP 37.2; O2SAT 96
[2017-12-13] MEDS: amLODIPine 10 MG Tablet PO (21:42)
[2017-12-13 21:51] LABS: Bedside Glucose 186 mg/dL (70-110)
[2017-12-14 00:03] VITALS: BP 209/94
[2017-12-14] MEDS: 0.9% NaCl Peripheral Flush Adult/Peds IV (00:28)
[2017-12-14 03:21] VITALS: BP 192/77; PULSE 85; RESP 16; TEMP 36.6; O2SAT 100
[2017-12-14] MEDS: Acetaminophen 325 MG Tablet 650 MG PO ×2 (03:21→09:39)
[2017-12-14] MEDS: cloNIDine HCl 0.1 MG Tablet 0.2 MG PO (04:19)
[2017-12-14 04:26] VITALS: BP 191/93
[2017-12-14 06:15] VITALS: BP 178/62
[2017-12-14] MEDS: busPIRone 5 MG Tablet PO (06:18)
[2017-12-14] MEDS: oxyCODONE 5 MG Tablet PO ×4 (06:18→13:04)
[2017-12-14] MEDS: Insulin Lispro 100 UNIT/ML INSULN.PEN SQ ×2 (06:23→12:53)
[2017-12-14 06:30] LABS: Bedside Glucose 212 mg/dL (70-110)
[2017-12-14 07:00] LABS: Hematocrit 36.9 % (37-47); Hemoglobin 12.2 g/dl (12.0-15.0); Mean Corp Hgb Conc 33.1 g/gl (32-36); Mean Corpuscular Hgb 29.8 pg (27.0-32.0); Mean Corpuscular Volume 90.2 fL (81-99); Mean Platelet Vol. 9.5 fl (6.2-12.0); Platelet Count 391 K/mm3 (150-450); RBC Distribution Width CV 14.2 % (11.6-14.6); RBC Distribution Width SD 46.5 fl (35.1-43.9); Red Blood Count 4.09 M/mm3 (4.2-5.4); White Blood Count 8.8 K/mm3 (4.4-11.0)
[2017-12-14 07:10] LABS: Scan Indicated on CBC? Y/N NO
[2017-12-14 07:13] LABS: Anion Gap 7 (5-15); BUN 16 mg/dL (7-18); BUN/Creat Ratio 14.4 RATIO (10-20); Calcium,Total 8.8 mg/dL (8.5-10.1); Chloride 103 mmol/L (98-107); Creatinine, Serum 1.11 mg/dL (0.55-1.02); EST Glomerular Filtration Rate 53 mL/min (>60); Est Glom Filt Rate - Afr Amer 64 mL/min (>60); Estimated Creatinine Clearance 37.75 ml/min; Glucose 189 mg/dL (74-106); Potassium 4.1 mmol/L (3.5-5.1); Sodium Level 135 mmol/L (136-145)
--- NOTE | 2017-12-14 07:21 | PN.SURG_ITS ---
Patient Problems: Active and Suspected Problems (Last Reviewed 12/10/17 @ 11:23 by Jose Neely DO) Gangrene (Acute) Subjective: patient seen at bedside. pain controlled. no n/v/f/c. Objective: alert and orientated x 3. no acute distress left foot with surgical incision approximated. proximal incision demonstrates normal color with no signs of dehiscence. the distal incision demonstrates very small area of darkened skin but no necrosis. no local signs of infection. no drainage. no evidence of hematoma. cultures with no growth to date. - Physical Exam Vital Signs Temp Pulse Resp BP Pulse Ox 97.8 F 85 16 178/62 H 100 12/14/17 03:21 12/14/17 03:21 12/14/17 03:21 12/14/17 06:15 12/14/17 03:21 Oxygen Delivery Method Room Air Weight: 58.2 kg Body Mass Index (BMI) 25.0 Intake and Output for Last 24 Hours 12/12/17 12/13/17 12/14/17 23:59 23:59 23:59 Intake Total 1207 / 1207 1780 / 1780 620 / 620 Balance 1207 / 1207 1780 / 1780 620 / 620 Microbiology Past 72 Hours 12/11/17 17:00 Gram Stain - Final Tissue - Toe Wound Culture - Preliminary No growth-Final to follow Anaerobic Culture - Preliminary No growth in 48 hours. Laboratory Tests Past 24 Hrs 12/13/17 12/13/17 12/14/17 08:15 08:15 06:20 WBC 8.8 8.8 RBC 3.81 L 4.09 L Hgb 11.2 L 12.2 Hct 34.2 L 36.9 L MCV 89.8 90.2 MCH 29.4 29.8 MCHC 32.7 33.1 RDW 14.4 14.2 RDW Differential 47.2 H 46.5 H Plt Count 351 391 MPV 9.2 9.5 Sodium 138 Potassium 4.1 Chloride 102 Carbon Dioxide 31.0 Anion Gap 5 BUN 17 Creatinine 1.16 H Estim Creat Clear Calc 36.12 Est GFR (MDRD) Af Amer 61 Est GFR (MDRD) Non-Af 50 L BUN/Creatinine Ratio 14.7 Glucose 194 H Calcium 8.9 Magnesium 2.3 12/14/17 06:20 WBC RBC Hgb Hct MCV MCH MCHC RDW RDW Differential Plt Count MPV Sodium 135 L Potassium 4.1 Chloride 103 Carbon Dioxide 25.0 Anion Gap 7 BUN 16 Creatinine 1.11 H Estim Creat Clear Calc 37.75 Est GFR (MDRD) Af Amer 64 Est GFR (MDRD) Non-Af 53 L BUN/Creatinine Ratio 14.4 Glucose 189 H Calcium 8.8 Magnesium POC Glucose 12/14/17 12/13/17 12/13/17 06:22 21:45 11:27 POC Glucose 212 H 186 H 238 H Medical Necessity - Tobacco Use Smoking Status: Former smoker Tobacco Use: Cigarettes Assessment/Plan All Active Problems (Last Reviewed 12/10/17 @ 11:23 by Jose Neely DO) 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 cultures thus far with no growth. skin incision appears mostly healthy. there is very little darkening of distal incision and I have informed patient that we will keep close visualization of this. she understands risk of small vessel disease and potential failure of incision to heal which may require advanced wound care not limited to wound vac therapy or more proximal amputation. for now, I applied betadine to incision with sterile dressing. cultures thus far with no growth. will continue to monitor these. she can likely discharge to snf. I will have my office make arrangements to see her early next week. she will need surgical shoe and walker for partial weightbearing to heel for transfer.
[2017-12-14] MEDS: Clopidogrel Bisulfate 75 MG Tablet PO (08:12)
[2017-12-14] MEDS: Lisinopril 10 MG Tablet PO (08:13)
[2017-12-14] MEDS: Glucerna Shake 120 ML LIQUID PO (08:14)
[2017-12-14 08:15] VITALS: BP 128/59; PULSE 67; RESP 18; TEMP 36.6; O2SAT 97
--- NOTE | 2017-12-14 08:56 | PCM.TXEXTCAR ---
- Diet 12/11/17 18:50 Diet: Calorie Controlled Is pt able to select menu?: Yes How many daily calories?: 1800 calorie - Wound(s) LT FOOT Wound Type: Surgical Incision Dressing Change: Dry Sterile Dressing BACK Wound Type: LICHEN PLANUS LESIONS ABD Wound Type: LICHEN PLANUS LESION - Therapies Weight Bearing: Partial weight bearing Physical Therapy: Eval and Treat Occupational Therapy: Eval and Treat - Allergies/Procedures Done in Hospital Allergies/Adverse Reactions: Allergies Penicillins Allergy (Verified 09/13/17 18:40) Rash - Type of Care/Length of Stay Estimated LOS: Convalescent Care Less Than 30 days Type of Care Needed: Skilled Rehab Potential: Good Prognosis: Good - Additional Orders/Day of Discharge Day of Discharge: 12/14/17 - Dietary and Speech Recommendations Dietitian Recommendations/Changes: Rec diet change to 1600 Calorie Controlled to better meet nutritional needs. Rec 1 pkt Rene BID for improved wound healing. - Follow Up Care Primary Care Physician: Evens Jimenez III, MD [Primary Care Provider] - Please follow up with your Primary Care Physician in: in 1-2 weeks Please Follow Up With: Michael Laird DPM When: on 12/18/17
--- NOTE | 2017-12-14 09:03 | PCM.PN.HOSP ---
Patient Problems: Active and Suspected Problems (Last Reviewed 12/10/17 @ 11:23 by Jose Neely DO) Gangrene (Acute) Subjective: She has seen still complains of pain in the left foot case was discussed with podiatry plan is for [facility] to be [facility] to [facility] once insurance approval is obtained with subsequent follow-up with podiatry on 12/18/2017. Objective: GENERAL: cooperative . 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 SKIN: Described above Vitals/I&O's: Vital Signs Temp Pulse Resp BP Pulse Ox 97.8 F 85 16 178/62 H 100 12/14/17 03:21 12/14/17 03:21 12/14/17 03:21 12/14/17 06:15 12/14/17 03:21 Oxygen Delivery Method Room Air Weight: 58.2 kg Body Mass Index (BMI) 25.0 Intake and Output for Last 24 Hours 12/12/17 12/13/17 12/14/17 23:59 23:59 23:59 Intake Total 1207 / 1207 1780 / 1780 620 / 620 Balance 1207 / 1207 1780 / 1780 620 / 620 Microbiology Past 72 Hours 12/11/17 17:00 Tissue - Toe Gram Stain - Final 12/11/17 17:00 Tissue - Toe Wound Culture - Final No growth aerobically. 12/11/17 17:00 Tissue - Toe Anaerobic Culture - Preliminary No growth in 48 hours. Laboratory Results 12/13/17 11:27: POC Glucose 238 H 12/13/17 21:45: POC Glucose 186 H 12/14/17 06:20: WBC 8.8, RBC 4.09 L, Hgb 12.2, Hct 36.9 L, MCV 90.2, MCH 29.8, MCHC 33.1, RDW 14.2, RDW Differential 46.5 H, Plt Count 391, MPV 9.5 12/14/17 06:20: Sodium 135 L, Potassium 4.1, Chloride 103, Carbon Dioxide 25.0, Anion Gap 7, BUN 16, Creatinine 1.11 H, Estim Creat Clear Calc 37.75, Est GFR (MDRD) Af Amer 64, Est GFR (MDRD) Non-Af 53 L, BUN/Creatinine Ratio 14.4, Glucose 189 H, Calcium 8.8 12/14/17 06:22: POC Glucose 212 H Current Medications Acetaminophen (Tylenol) 650 mg PO Q6H PRN PRN PRN Reason: Mild Pain (1-3)/Temp > 100.7 F Last Admin: 12/14/17 03:21 Dose: 650 mg Amlodipine Besylate (Norvasc) 10 mg PO QHS [facility] Last Admin: 12/13/17 21:42 Dose: 10 mg Buspirone HCl (Buspar) 5 mg PO TID [facility] Last Admin: 12/14/17 06:18 Dose: 5 mg Clopidogrel Bisulfate (Plavix) 75 mg PO DAILY [facility] Last Admin: 12/14/17 08:12 Dose: 75 mg Dextrose (D50w Syringe) 0 gm IV X1 PRN; Protocol PRN Reason: Hypoglycemia Diphenhydramine HCl (Benadryl) 50 mg PO BID PRN PRN PRN Reason: ITCHING Last Admin: 12/12/17 16:30 Dose: 50 mg Enalaprilat (Vasotec) 1.25 mg IV Q6H PRN PRN PRN Reason: BP >160/100 Last Admin: 12/13/17 00:48 Dose: 1.25 mg Glucagon () 1 mg IM .X1 PRN PRN Reason: Hypoglycemia Insulin Human Lispro (Humalog Kwikpen (Bkc)) 0 unit SQ ACHS [facility] PRN Reason: Protocol Last Admin: 12/14/17 06:23 Dose: 2 units Labetalol HCl (Trandate) 10 mg IV Q4H PRN PRN PRN Reason: BLOOD PRESSURE ELEVATION Last Admin: 12/14/17 00:28 Dose: 10 mg Lisinopril (Zestril) 10 mg PO DAILY [facility] Last Admin: 12/14/17 08:13 Dose: 10 mg Magnesium Hydroxide (Milk Of Magnesia) 30 ml PO DAILY PRN PRN PRN Reason: Constipation Morphine Sulfate () 4 mg IV Q2H PRN PRN PRN Reason: SEVERE PAIN (6-10/10) Last Admin: 07/17/18 06:01 Dose: 4 mg Nutritional Formula (Lactose Free) (Glucerna Shake) 120 ml PO TIDCM [facility] Last Admin: 12/14/17 08:14 Dose: 120 ml Ondansetron HCl (Zofran) 4 mg IV Q8H PRN PRN PRN Reason: NAUSEA Oxycodone HCl (Oxyir) 5 - 10 mg PO Q4H PRN PRN PRN Reason: SEVERE PAIN (6-10/10) Last Admin: 12/14/17 06:18 Dose: 10 mg Sertraline HCl (Zoloft) 25 mg PO DINNER [facility] Last Admin: 12/13/17 15:44 Dose: 25 mg Simethicone (Mylicon) 120 mg PO TID PRN PRN PRN Reason: GAS PAIN Sodium Chloride () 5 - 30 ml IV UD PRN PRN Reason: SALINE FLUSH Last Admin: 12/14/17 00:28 Dose: 10 ml Triamcinolone Acetonide (Triamcinolone Acetonide) 1 applic TOPICAL DAILY [facility] Last Admin: 12/13/17 07:48 Dose: 1 applicatio Medical Necessity - Tobacco Use Smoking Status: Former smoker Tobacco Use: Cigarettes Assessment/Plan All Active Problems (Last Reviewed 12/10/17 @ 11:23 by Jose Neely DO) 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 Consult has been placed to podiatry plan is for patient undergo surgical intervention 1. Left fifth toe gangrene patient with underlying peripheral arterial disease as well as diabetes mellitus type 2. Consult was placed to podiatry Dr. Dr. Laird who did perform partial 5th ray amputation of left foot on 12/11/2017. Cultures were sent following patient amputation results pending. 2. Peripheral arterial disease status post right carotid endarterectomy as well as angioplasty involving popliteal as well as supra superficial femoral artery on 11/14/[address] Jimenez 3. Diabetes mellitus type II: Controlled diabetes placed on Accu-Cheks a.c. and at bedtime and covered with sliding scale insulin 4. Hypertension-blood pressure controlled, home medications continued with dose adjustment as needed X 5. Tobacco dependence counseled on cessation, offered nicotine patch for tobacco cravings 6. DVT prophylaxis SCDs for now with plans to initiate chemoprophylaxis once surgery is performed Active Medications Acetaminophen (Tylenol) 650 mg PO Q6H PRN PRN PRN Reason: Mild Pain (1-3)/Temp > 100.7 F Last Admin: 12/11/17 04:01 Dose: 650 mg Amlodipine Besylate (Norvasc) 10 mg PO QHS [facility] Last Admin: 12/10/17 20:52 Dose: 10 mg Buspirone HCl (Buspar) 5 mg PO TID [facility] Last Admin: 12/11/17 05:18 Dose: Not Given Clopidogrel Bisulfate (Plavix) 75 mg PO DAILY [facility] Dextrose (D50w Syringe) 0 gm IV X1 PRN; Protocol PRN Reason: Hypoglycemia Diphenhydramine HCl (Benadryl) 50 mg PO BID PRN PRN PRN Reason: ITCHING Last Admin: 12/10/17 20:51 Dose: 50 mg Glucagon () 1 mg IM .X1 PRN PRN Reason: Hypoglycemia Insulin Human Lispro (Humalog Kwikpen (Bkc)) 0 unit SQ TIDAC [facility] PRN Reason: Protocol Last Admin: 12/11/17 11:40 Dose: 2 units Lisinopril (Zestril) 10 mg PO DAILY [facility] Last Admin: 12/11/17 10:21 Dose: 10 mg Magnesium Hydroxide (Milk Of Magnesia) 30 ml PO DAILY PRN PRN PRN Reason: Constipation Nutritional Formula (Lactose Free) (Glucerna Shake) 120 ml PO TIDCM [facility] Last Admin: 12/11/17 11:18 Dose: Not Given Ondansetron HCl (Zofran) 4 mg IV Q8H PRN PRN PRN Reason: NAUSEA Oxycodone HCl (Oxyir) 5 - 10 mg PO Q4H PRN PRN PRN Reason: MOD-SEVERE PAIN (4-10/10) Last Admin: 12/10/17 21:03 Dose: 10 mg Sertraline HCl (Zoloft) 25 mg PO DINNER [facility] Last Admin: 12/10/17 17:09 Dose: 25 mg Simethicone (Mylicon) 120 mg PO TID PRN PRN PRN Reason: GAS PAIN Sodium Chloride () 5 - 30 ml IV UD PRN PRN Reason: SALINE FLUSH Triamcinolone Acetonide (Triamcinolone Acetonide) 1 applic TOPICAL DAILY [facility] Last Admin: 12/11/17 10:20 Dose: Not Given Code Visit Inpatient E&M: 72118 Subs Hosp L2
--- NOTE | 2017-12-14 09:07 | PN_ITS ---
Patient Problems: Active and Suspected Problems (Last Reviewed 12/10/17 @ 11:23 by Jose Neely DO) Gangrene (Acute) Subjective: She has seen still complains of pain in the left foot case was discussed with podiatry plan is for [facility] to be [facility] once insurance approval is obtained with subsequent follow-up with podiatry on 2017. Objective: GENERAL: cooperative . 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 SKIN: Described above Vitals/I&O's: Vital Signs Temp Pulse Resp BP Pulse Ox 97.8 F 85 16 178/62 H 100 12/14/17 03:21 12/14/17 03:21 12/14/17 03:21 12/14/17 06:15 12/14/17 03:21 Oxygen Delivery Method Room Air Weight: 58.2 kg Body Mass Index (BMI) 25.0 Intake and Output for Last 24 Hours 12/12/17 12/13/17 12/14/17 23:59 23:59 23:59 Intake Total 1207 / 1207 1780 / 1780 620 / 620 Balance 1207 / 1207 1780 / 1780 620 / 620 Microbiology Past 72 Hours 12/11/17 17:00 Tissue - Toe Gram Stain - Final 12/11/17 17:00 Tissue - Toe Wound Culture - Final No growth aerobically. 12/11/17 17:00 Tissue - Toe Anaerobic Culture - Preliminary No growth in 48 hours. Laboratory Results 12/13/17 11:27: POC Glucose 238 H 12/13/17 21:45: POC Glucose 186 H 12/14/17 06:20: WBC 8.8, RBC 4.09 L, Hgb 12.2, Hct 36.9 L, MCV 90.2, MCH 29.8, MCHC 33.1, RDW 14.2, RDW Differential 46.5 H, Plt Count 391, MPV 9.5 12/14/17 06:20: Sodium 135 L, Potassium 4.1, Chloride 103, Carbon Dioxide 25.0, Anion Gap 7, BUN 16, Creatinine 1.11 H, Estim Creat Clear Calc 37.75, Est GFR ( MDRD) Af Amer 64, Est GFR (MDRD) Non-Af 53 L, BUN/Creatinine Ratio 14.4, Glucose 189 H, Calcium 8.8 12/14/17 06:22: POC Glucose 212 H Current Medications Acetaminophen (Tylenol) 650 mg PO Q6H PRN PRN PRN Reason: Mild Pain (1-3)/Temp > 100.7 F Last Admin: 12/14/17 03:21 Dose: 650 mg Amlodipine Besylate (Norvasc) 10 mg PO QHS [facility] Last Admin: 12/13/17 21:42 Dose: 10 mg Buspirone HCl (Buspar) 5 mg PO TID [facility] Last Admin: 12/14/17 06:18 Dose: 5 mg Clopidogrel Bisulfate (Plavix) 75 mg PO DAILY [facility] Last Admin: 12/14/17 08:12 Dose: 75 mg Dextrose (D50w Syringe) 0 gm IV X1 PRN; Protocol PRN Reason: Hypoglycemia Diphenhydramine HCl (Benadryl) 50 mg PO BID PRN PRN PRN Reason: ITCHING Last Admin: 12/12/17 16:30 Dose: 50 mg Enalaprilat (Vasotec) 1.25 mg IV Q6H PRN PRN PRN Reason: BP >160/100 Last Admin: 12/13/17 00:48 Dose: 1.25 mg Glucagon () 1 mg IM .X1 PRN PRN Reason: Hypoglycemia Insulin Human Lispro (Humalog Kwikpen (Bkc)) 0 unit SQ ACHS [facility] PRN Reason: Protocol Last Admin: 12/14/17 06:23 Dose: 2 units Labetalol HCl (Trandate) 10 mg IV Q4H PRN PRN PRN Reason: BLOOD PRESSURE ELEVATION Last Admin: 12/14/17 00:28 Dose: 10 mg Lisinopril (Zestril) 10 mg PO DAILY [facility] Last Admin: 12/14/17 08:13 Dose: 10 mg Magnesium Hydroxide (Milk Of Magnesia) 30 ml PO DAILY PRN PRN PRN Reason: Constipation Morphine Sulfate () 4 mg IV Q2H PRN PRN PRN Reason: SEVERE PAIN (6-10/10) Last Admin: 07/17/18 06:01 Dose: 4 mg Nutritional Formula (Lactose Free) (Glucerna Shake) 120 ml PO TIDCM [facility] Last Admin: 12/14/17 08:14 Dose: 120 ml Ondansetron HCl (Zofran) 4 mg IV Q8H PRN PRN PRN Reason: NAUSEA Oxycodone HCl (Oxyir) 5 - 10 mg PO Q4H PRN PRN PRN Reason: SEVERE PAIN (6-10/10) Last Admin: 12/14/17 06:18 Dose: 10 mg Sertraline HCl (Zoloft) 25 mg PO DINNER [facility] Last Admin: 12/13/17 15:44 Dose: 25 mg Simethicone (Mylicon) 120 mg PO TID PRN PRN PRN Reason: GAS PAIN Sodium Chloride () 5 - 30 ml IV UD PRN PRN Reason: SALINE FLUSH Last Admin: 12/14/17 00:28 Dose: 10 ml Triamcinolone Acetonide (Triamcinolone Acetonide) 1 applic TOPICAL DAILY [facility] Last Admin: 12/13/17 07:48 Dose: 1 applicatio Medical Necessity - Tobacco Use Smoking Status: Former smoker Tobacco Use: Cigarettes Assessment/Plan All Active Problems (Last Reviewed 12/10/17 @ 11:23 by Jose Neely DO) 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 Consult has been placed to podiatry plan is for patient undergo surgical intervention 1. Left fifth toe gangrene patient with underlying peripheral arterial disease as well as diabetes mellitus type 2. Consult was placed to podiatry Dr. Dr. Laird who did perform partial 5th ray amputation of left foot on 12/11/2017. Cultures were sent following patient amputation results pending. 2. Peripheral arterial disease status post right carotid endarterectomy as well as angioplasty involving popliteal as well as supra superficial femoral artery on 11/14/[address] Jimenez 3. Diabetes mellitus type II: Controlled diabetes placed on Accu-Cheks a.c. and at bedtime and covered with sliding scale insulin 4. Hypertension-blood pressure controlled, home medications continued with dose adjustment as needed X 5. Tobacco dependence counseled on cessation, offered nicotine patch for tobacco cravings 6. DVT prophylaxis SCDs for now with plans to initiate chemoprophylaxis once surgery is performed Active Medications Acetaminophen (Tylenol) 650 mg PO Q6H PRN PRN PRN Reason: Mild Pain (1-3)/Temp > 100.7 F Last Admin: 12/11/17 04:01 Dose: 650 mg Amlodipine Besylate (Norvasc) 10 mg PO QHS [facility] Last Admin: 12/10/17 20:52 Dose: 10 mg Buspirone HCl (Buspar) 5 mg PO TID [facility] Last Admin: 12/11/17 05:18 Dose: Not Given Clopidogrel Bisulfate (Plavix) 75 mg PO DAILY [facility] Dextrose (D50w Syringe) 0 gm IV X1 PRN; Protocol PRN Reason: Hypoglycemia Diphenhydramine HCl (Benadryl) 50 mg PO BID PRN PRN PRN Reason: ITCHING Last Admin: 12/10/17 20:51 Dose: 50 mg Glucagon () 1 mg IM .X1 PRN PRN Reason: Hypoglycemia Insulin Human Lispro (Humalog Kwikpen (Bkc)) 0 unit SQ TIDAC [facility] PRN Reason: Protocol Last Admin: 12/11/17 11:40 Dose: 2 units Lisinopril (Zestril) 10 mg PO DAILY [facility] Last Admin: 12/11/17 10:21 Dose: 10 mg Magnesium Hydroxide (Milk Of Magnesia) 30 ml PO DAILY PRN PRN PRN Reason: Constipation Nutritional Formula (Lactose Free) (Glucerna Shake) 120 ml PO TIDCM [facility] Last Admin: 12/11/17 11:18 Dose: Not Given Ondansetron HCl (Zofran) 4 mg IV Q8H PRN PRN PRN Reason: NAUSEA Oxycodone HCl (Oxyir) 5 - 10 mg PO Q4H PRN PRN PRN Reason: MOD-SEVERE PAIN (4-10/10) Last Admin: 12/10/17 21:03 Dose: 10 mg Sertraline HCl (Zoloft) 25 mg PO DINNER [facility] Last Admin: 12/10/17 17:09 Dose: 25 mg Simethicone (Mylicon) 120 mg PO TID PRN PRN PRN Reason: GAS PAIN Sodium Chloride () 5 - 30 ml IV UD PRN PRN Reason: SALINE FLUSH Triamcinolone Acetonide (Triamcinolone Acetonide) 1 applic TOPICAL DAILY [facility] Last Admin: 12/11/17 10:20 Dose: Not Given Code Visit Inpatient E&M: 92248 Subs Hosp L2
--- NOTE | 2017-12-14 09:09 | DS.PCM_ITS ---
Discharge Date and Diagnosis - Problem List Patient Problems: Active and Suspected Problems (Last Reviewed 12/10/17 @ 11:23 by Jose Neely DO) Gangrene (Acute) Date of Admission: 12/10/17 Date of Discharge: 12/14/17 - Primary Discharge Diagnosis Active and Suspected Problems (Last Reviewed 12/10/17 @ 11:23 by Jose Neely DO) Gangrene (Acute) - Secondary Discharge Diagnosis Chronic Problems (Last Reviewed 12/10/17 @ 11:23 by Jose Neely DO) Tobacco abuse (Chronic) Caries (Chronic) Carotid arterial disease (Chronic) History of CVA (cerebrovascular accident) (Chronic) Hyperlipidemia (Chronic) Hypertension (Chronic) Diabetes mellitus (Chronic) Abscess of buttock (Chronic) Tobacco abuse counseling (Chronic) Chronic ulcer of buttock (Chronic) Hospital Course and Treatment Imaging Results: Clinical Impression(s) from Imaging Studies Foot X-Ray 12/11/17 18:10 IMPRESSION: There are surgical changes laterally after amputation of the fifth toe and distal fifth metatarsal. Electronically Signed: Petty Richards MD at 18:56 EDT Tel Direct: [phone], Service support , Summary of Care Provided: Patient is a 62-year-old lady with past medical history significant for diabetes mellitus type 2 who presented with left fifth toe gangrene. Consult has been placed to podiatry plan is for patient undergo surgical intervention 1. Left fifth toe gangrene patient with underlying peripheral arterial disease as well as diabetes mellitus type 2. Consult was placed to podiatry Dr. Dr. Laird who did perform partial 5th ray amputation of left foot on 12/11/2017. Cultures were sent following patient amputation and did remain negative 2. Peripheral arterial disease status post right carotid endarterectomy as well as angioplasty involving popliteal as well as superficial femoral artery on 11/14/[address] Jimenez 3. Diabetes mellitus type II: Uncontrolled with hemoglobin A1c of 10. Prescription was written for long-acting insulin Lantus 10 units daily in addition to sliding scale insulin 4. Hypertension-blood pressure controlled, home medications continued with dose adjustment as needed 5. Tobacco dependence counseled on cessation, offered nicotine patch for tobacco cravings Discharge Diet: 1800 Calorie Control Diet Home Medications: Medications to take at Discharge Amlodipine [Norvasc] 10 mg PO QHS 12/18/15 Lisinopril [Zestril] 10 mg PO DAILY 12/18/15 busPIRone [Buspar] 5 mg PO TID 12/18/15 Sertraline HCl [Zoloft] 25 mg PO DINNER 10/11/16 Simethicone 125 mg PO TID PRN PRN 10/11/16 Clopidogrel Bisulfate [Clopidogrel] 75 mg PO DAILY 12/10/17 Mometasone Furoate [[place]] 50 gm TP DAILY 12/10/17 Acetaminophen [Tylenol Tablet] 650 mg PO Q6H PRN PRN tablet 12/14/17 Glucerna Shake 120 ml PO TIDCM liquid 12/14/17 Insulin Glargine,Hum.rec.anlog [Lantus] 10 unit SQ DAILY #200 ml 12/14/17 Insulin Lispro [Humalog KwikPen] See Protocol SQ ACHS insuln.pen 12/14/17 Magnesium Hydroxide [Milk Of Magnesia] 30 ml PO DAILY PRN PRN udc 12/14/17 Oxycodone [Oxyir] 5 mg PO Q4H PRN PRN 5 Days #16 tab 12/14/17 Triamcinolone 0.5% Cream [Kenalog] 1 applic TOPICAL DAILY tube 12/14/17 Following Prescrptions Were Given to Patient: Insulin Glargine,Hum.rec.anlog [Lantus] 10 unit SQ DAILY #200 ml Oxycodone [Oxyir] 5 mg PO Q4H PRN PRN 5 Days #16 tab PRN Reason: Severe Pain (6-10) Primary Care Physician: Evens Jimenez III, MD [Primary Care Provider] - Please follow up with your Primary Care Physician in: in 1-2 weeks Please Follow Up With: Michael Laird DPM When: on 12/18/17 Disposition: Senior Living facility Minutes spent on discharge:: 45 Patient Condition:: Stable Medical Necessity - Tobacco Use Smoking Status: Former smoker Tobacco Use: Cigarettes Meaningful Use Info Meaningful Use Diagnoses (Choose all that apply): None applicable Code Visit Inpatient E&M: 42862 Disch Hosp
[2017-12-14] MEDS: Magnesium Hydroxide 30 ML UDC PO (09:40)
[2017-12-14 13:00] LABS: Bedside Glucose 252 mg/dL (70-110)
--- NOTE | 2017-12-14 13:15 | CASEMGMT ---
Social Work Note SW received message from Beatriz at [facility] stating that she received authorization from insurance and pt is able to discharge today. SW faxed transfer to extended care facility, signed medication list and scripts to Beatriz at [facility]. Originals in SNF folder and copy on pt's chart. SW in to update pt that insurance has approved for her to go. Pt states understanding and would transportation to be set up via wheelchair van. SW set up transportation via wheelchair van through [facility] for 1:15pm. Transportation form on SNF folder and copy on pt's chart. SW completed [facility] in [facility]. Original in SNF folder and copy on pt's chart. JAX updated medical secretary teacher Troy, pt and placed a call to Beatriz at [facility] to update on transportation time. Plan: Pt to discharge to [facility] today for rehabilitation under skilled via wheelchair van through [facility] at 2:00pm Steph MARTIN, ELECTRONIC ENGRAVER
--- NOTE | 2017-12-14 13:19 | NURSING ---
REPORT CALLED TO [facility] FOR DISCHARGE.
[2017-12-15 01:16] LABS: Bedside Glucose 194 mg/dL (70-110)
--- NOTE | 2017-12-15 13:33 | CASEMGMT ---
Social Work Note SW received message from Beatriz at [facility] stating that she got [facility] and pt's last name was spelled wrong. SW placed a call to Yajaira Beaver at [facility] and left her a message informing her that pt's last name was spelled wrong on [facility]. JAX placed a call to Beatriz at [facility] to update her of this as well. Steph Burris [employer], REGIONAL AGRONOMIST
== END 2017-12-14 13:13 | disposition skilled nursing facility (03) | DRG 305 ==
PROVIDERS: Anesthesiology; Podiatrist Foot & Ankle Surgery; Admitting Provider Hospitalist; Family Provider Family Medicine; PCP Family Medicine; Visit Provider Internal Medicine
PROC: 0Y6N0ZF Detachment at Left Foot, Partial 5th Ray, Open Approach (ICD-10-PCS; principal; 2017-12-11 07:15)
DX: I70.262 Atherosclerosis of native arteries of extremities with gangrene, left leg (principal); E11.65 Type 2 diabetes mellitus with hyperglycemia; E11.52 Type 2 diabetes mellitus with diabetic peripheral angiopathy with gangrene; F17.210 Nicotine dependence, cigarettes, uncomplicated; I10 Essential (primary) hypertension; E78.5 Hyperlipidemia, unspecified; J45.909 Unspecified asthma, uncomplicated; M54.9 Dorsalgia, unspecified; G89.29 Other chronic pain; L43.9 Lichen planus, unspecified; F32.9 Major depressive disorder, single episode, unspecified; Z86.73 Personal history of transient ischemic attack (TIA), and cerebral infarction without residual deficits; S98.132A Complete traumatic amputation of one left lesser toe, initial encounter; S98.922A Partial traumatic amputation of left foot, level unspecified, initial encounter; X58.XXXA Exposure to other specified factors, initial encounter
CPT/HCPCS: 36415; 73630; 76000; 80048; 80053; 80076; 82962; 83036; 83735; 85025; 85027; 85610; 85730; 87070; 87075; 87205; 87640; 88304; 88305; 88311; 93005; 97110; 97162; 97165; 97802; 99406; J7120; A4216

== ENCOUNTER → 2017-12-11 08:00 | Outpatient (CLI) | payer MEDICAID, SELFPAY ==
--- NOTE | 2017-12-11 13:30 | RAD_ITS ---
STUDY: X-RAY - LEFT FOOT CLINICAL: Female, 62 years old. Intraoperative assessment TECHNIQUE: Five view(s) of the foot were obtained. COMPARISON: None. FINDINGS: There is surgical resection of the fifth toe and distal fifth metatarsal. A soft tissue defect is present in this location. Fluoroscopy time 26 seconds. Dose 2.67 cGy. RAD/Foot min 3 Views IMPRESSION: Limited views of the left foot were obtained intraoperatively. Electronically Signed: Petty Richards MD at 18:27 EDT Tel Direct: [phone], Service support ,
== END ==
PROVIDERS: Family Provider Family Medicine; PCP Family Medicine; Visit Provider Podiatrist Foot & Ankle Surgery
DX: S98.132A Complete traumatic amputation of one left lesser toe, initial encounter (principal); S98.922A Partial traumatic amputation of left foot, level unspecified, initial encounter; X58.XXXA Exposure to other specified factors, initial encounter
CPT/HCPCS: 73630; 76000

== ENCOUNTER → 2017-12-20 05:00 | Outpatient (REF) | payer MEDICAID, SELFPAY ==
[2017-12-20 07:36] LABS: Hematocrit 33.4 % (37-47); Hemoglobin 10.8 g/dl (12.0-15.0); Mean Corp Hgb Conc 32.3 g/gl (32-36); Mean Corpuscular Hgb 29.1 pg (27.0-32.0); Mean Platelet Vol. 9.5 fl (6.2-12.0); Platelet Count 374 K/mm3 (150-450); RBC Distribution Width CV 14.1 % (11.6-14.6); RBC Distribution Width SD 46.5 fl (35.1-43.9); Red Blood Count 3.71 M/mm3 (4.2-5.4); White Blood Count 9.4 K/mm3 (4.4-11.0)
[2017-12-20 07:47] LABS: Scan Indicated on CBC? Y/N NO
[2017-12-20 07:48] LABS: Anion Gap 6 (5-15); BUN 26 mg/dL (7-18); Calcium,Total 8.6 mg/dL (8.5-10.1); Chloride 106 mmol/L (98-107); Creatinine, Serum 1.13 mg/dL (0.55-1.02); EST Glomerular Filtration Rate 52 mL/min (>60); Est Glom Filt Rate - Afr Amer 63 mL/min (>60); Glucose 130 mg/dL (74-106); Potassium 4.2 mmol/L (3.5-5.1); Sodium Level 141 mmol/L (136-145)
== END ==
LOC: OLS.WHLCAR 05:00
PROVIDERS: Visit Provider Family Medicine
DX: I10 Essential (primary) hypertension (principal); E78.5 Hyperlipidemia, unspecified; I25.10 Atherosclerotic heart disease of native coronary artery without angina pectoris; I96 Gangrene, not elsewhere classified; F17.200 Nicotine dependence, unspecified, uncomplicated; Z89.421 Acquired absence of other right toe(s)
CPT/HCPCS: 36415; 80048; 85027

== ENCOUNTER 2017-12-20 15:22 | Inpatient (IN) | payer MEDICAID, SELFPAY ==
[2017-12-20 16:36] VITALS: BMI 26.4
--- NOTE | 2017-12-20 17:18 | NURSING ---
received packet from [facility] for patient- however, ink in printer was dysfunctioning and entire section where medications were listed was completely blank. This RN called and spoke with Bianca mondragon nurse and requested MAR be faxed to this unit. Verbalized that same would be completed.
--- NOTE | 2017-12-20 17:23 | MRI_ITS ---
STUDY: MRI LEFT MIDFOOT REASON FOR EXAM: Female, 62 years old. Foot swelling after surgery 10 days ago. TECHNIQUE: Standardized fat and water weighted pulse sequences were obtained in all 3 orthogonal planes. COMPARISON: None. FINDINGS: Normal talonavicular articulation. Normal calcaneocuboid articulation. Normal navicular-cuneiform articulations. Normal intercuneiform articulations. Normal first tarsometatarsal articulation. Normal Lisfranc ligament. Normal second and third tarsometatarsal articulations. Normal cuboid fourth and cuboid fifth tarsometatarsal articulation. There is demonstrated amputation of the mid fifth metatarsal with noted surrounding edema and inflammation as seen on sagittal series 9 image 7. There is noted increased osseous edema of the distal metatarsal amputation site. There is a small focus of air within the soft tissues with surrounding edema present. Normal tibialis anterior tendon. Normal extensor hallucis longus tendon. Normal extensor digitorum longus tendons. Normal peroneus longus tendon and distal insertion. Normal peroneus brevis tendon and distal insertion. Normal intrinsic muscles of the mid and forefoot region. Normal extensor digitorum brevis muscle. Normal subcutis adipose space. MRI/Lower Ext/No Jt/w/o IMPRESSION: Mid fifth metatarsal amputation with distal osseous edema, small subcutaneous focus of air and surrounding inflammatory fluid consistent with soft tissue infection/abscess and early osteomyelitis of the distal metatarsal amputation site in the appropriate clinical setting. Electronically Signed: Live Turner DO at 22:15 EDT , Service support ,
--- NOTE | 2017-12-20 17:23 | VDLE_ITS ---
Reason For Study: LEG SWELLING RIGHT LEFT GSV is normal. GSV is normal. CFV is compressible, spontaneous, phasic, CFV is compressible, spontaneous, phasic, competent and demonstrates normal competent, and demonstrates normal augmentation. augmentation. FV is compressible, spontaneous, phasic, FV is compressible, spontaneous, phasic, competent and demonstrates normal competent and demonstrates normal augmentation. augmentation. POP V is compressible, spontaneous, phasic, POP V is compressible, spontaneous, phasic, competent and demonstrates normal competent and demonstrates normal augmentation. augmentation. T/P Trunk is compressible. T/P Trunk is compressible. PTV is compressible. PTV is compressible. RT PerV is compressible. LT PerV is compressible. Procedure Exam performed in department. A preliminary report was called and/or faxed to [facility]. Interpretation Summary Deep veins of the lower extremities are bilaterally patent and compressible segmentally. There is no evidence of deep vein thrombosis on either side. Valvular competence appears intact within the proximal deep venous systems bilaterally. The greater saphenous veins appear bilaterally patent and compressible segmentally. Ordering Physician: Jose Neely Referring Physician: Michael Laird Performed By: Linda Lemus RVT
--- NOTE | 2017-12-20 17:30 | PCM.HP.STD ---
Problem List (1) Cellulitis of left foot Status: Acute History of Present Illness Date of Admission: 12/20/17 Chief Complaint: erythema and pain of left foot. The patient is a 62 year old F who underwent a partial fifth ray amputation of her left foot for dry gangrene. That was performed on the . Patient's course was unremarkable. Patient was heel weightbearing which she was states that she was following diligently. 2 days ago, patient noticed increased pain in her left foot and subsequently increased erythema. Patient saw Dr. Laird who is concerned about cellulitis and possibly an underlying abscess and recommended hospitalization for IV antibiotics and MRI of her foot. He noted that the margins of her wounds were well approximated and did not get any purulence. [] Past Medical History Past Medical History (Chronic Problems): Chronic Problems (Last Reviewed 12/10/17 @ 11:23 by Jose Neely DO) Tobacco abuse (Chronic) Caries (Chronic) Carotid arterial disease (Chronic) History of CVA (cerebrovascular accident) (Chronic) Hyperlipidemia (Chronic) Hypertension (Chronic) Diabetes mellitus (Chronic) Abscess of buttock (Chronic) Tobacco abuse counseling (Chronic) Chronic ulcer of buttock (Chronic) Medical History: Medical History (Last Updated 12/20/17 @ 17:32 by Jose Neely DO) PVD (peripheral vascular disease) (Acute) I73.9 Carotid arterial disease (Chronic) I77.9 Hyperlipidemia (Chronic) E78.5 Nicotine dependence (Acute) F17.200 Cellulitis and abscess of buttock (Acute) 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 Z89.422 Asthma J45.909 CVA (cerebral vascular accident) I63.9 Chronic back pain M54.9, G89.29 Depression F32.9 Diabetes E11.9 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 HTN (hypertension) I10 Allergies Penicillins Allergy (Verified 09/13/17 18:40) Rash Home Medications: Ambulatory Orders Medication Instructions Recorded Amlodipine [Norvasc] 10 mg PO QHS 12/18/15 Lisinopril [Zestril] 10 mg PO DAILY 12/18/15 busPIRone [Buspar] 5 mg PO TID 12/18/15 Sertraline HCl [Zoloft] 25 mg PO DINNER 10/11/16 Simethicone 125 mg PO TID PRN PRN 10/11/16 Clopidogrel Bisulfate [Clopidogrel] 75 mg PO DAILY 12/10/17 Mometasone Furoate [Elocon] 50 gm TP DAILY 12/10/17 Acetaminophen [Tylenol Tablet] 650 mg PO Q6H PRN PRN tablet 12/14/17 Glucerna Shake 120 ml PO TIDCM liquid 12/14/17 Insulin Glargine,Hum.rec.anlog 10 unit SQ DAILY #200 ml 12/14/17 [Lantus] Insulin Lispro [Humalog KwikPen] See Protocol SQ ACHS insuln.pen 12/14/17 Magnesium Hydroxide [Milk Of 30 ml PO DAILY PRN PRN udc 12/14/17 Magnesia] Oxycodone [Oxyir] 5 mg PO Q4H PRN PRN 5 Days #16 tab 12/14/17 Triamcinolone 0.5% Cream [Kenalog] 1 applic TOPICAL DAILY tube 12/14/17 Surgical History: Surgical History (Last Reviewed 12/20/17 @ 17:32 by Jose Neely DO) History of esophagogastroduodenoscopy (EGD) Z98.890 S/P carotid endarterectomy Z98.890 S/P colonoscopy Z98.890 Surgical History: - - Patient has undergone right carotid endarterectomy by Dr. Siva Jimenez approximately 7 years ago. She is a Ab0. Smoking Status: Former smoker Tobacco Use: Cigarettes Alcohol: None Drugs: None - *Family History Maternal Family History: Family History (Last Updated 11/08/17 @ 13:38 by Melva Ashby) Mother No problems noted. History Items: - - Patient's father in his 40s from myocardial infarction. Patient's mother in her 40s from a cerebrovascular accident. Review of Systems Constitutional: Denies: Chills, Fever, Weight Change HEENT: Denies: Head Aches, Sinus Congestion, Sinus Drainage Cardiovascular: Denies: Chest Pain, Palpitations Respiratory: Denies: Cough, Shortness of breath at rest, Sputum production Gastrointestinal: Denies: Abdominal Pain, Nausea, Vomiting Genitourinary: Denies: Dysuria Musculoskeletal: Reports: - - foot pain.. Denies: Joint Pain, Joint Tenderness Skin: Reports: - - erythema of left foot. Comment: All review of systems are negative except as mentioned in the history of present illness and the other review of systems. VTE Information - Inpt Only VTE Present on Admission: No VTE Pharm Prophylaxis ordered?: Yes Patient Problems: Active and Suspected Problems (Last Reviewed 12/10/17 @ 11:23 by Jose Neely DO) Cellulitis of left foot (Acute) - Physical Exam General: Alert, Cooperative, No apparent distress HEENT: Atraumatic, Normocephalic Oral: Moist Mucosa, No Gingival or Mucosal Lesions/ Ulcerations Neck: No Nodes, Thyroid Normal Size and Texture Lungs: Clear to auscultation, Normal air movement, No rhonchi, No wheeze Cardiovascular: Regular rate, Regular Rhythm, Normal S1, Normal S2 Abdomen: Bowel Sounds Present, Soft, Non Tender, Non-Distended, No Hepato-splenomegaly Extremities: - - Trace edema of the left lower extremity. Slight edema of the left ankle and dorsum of her left foot. Skin: - - Left lateral foot incision is clean and intact. No purulence can be expressed. Very tender palpation. No fluctuance. Does have some erythema extending proximally. 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 Left foot cellulitis Patient will be put on broad-spectrum antibiotics with vancomycin and aztreonam. Patient has penicillin allergy. Podiatry will be on consult Check an MRI of her foot Check duplex to evaluate for any DVT as patient has limited weightbearing status 2. Diabetes mellitus type 2 Continue with her home medications plus sliding scale 3. Peripheral arterial disease Continue with Plavix Follow-up Dr. Jimenez as outpatient 4. DVT prophylaxis with low molecular weight heparin Code Visit Inpatient E&M: 20781 Init Hosp L2
--- NOTE | 2017-12-20 17:36 | HP.PCM_ITS ---
Problem List (1) Cellulitis of left foot Status: Acute History of Present Illness Date of Admission: 12/20/17 Chief Complaint: erythema and pain of left foot. The patient is a 62 year old F who underwent a partial fifth ray amputation of her left foot for dry gangrene. That was performed on the . Patient's course was unremarkable. Patient was heel weightbearing which she was states that she was following diligently. 2 days ago, patient noticed increased pain in her left foot and subsequently increased erythema. Patient saw Dr. Laird who is concerned about cellulitis and possibly an underlying abscess and recommended hospitalization for IV antibiotics and MRI of her foot. He noted that the margins of her wounds were well approximated and did not get any purulence. [] Past Medical History Past Medical History (Chronic Problems): Chronic Problems (Last Reviewed 12/10/17 @ 11:23 by Jose Neely DO) Tobacco abuse (Chronic) Caries (Chronic) Carotid arterial disease (Chronic) History of CVA (cerebrovascular accident) (Chronic) Hyperlipidemia (Chronic) Hypertension (Chronic) Diabetes mellitus (Chronic) Abscess of buttock (Chronic) Tobacco abuse counseling (Chronic) Chronic ulcer of buttock (Chronic) Medical History: Medical History (Last Updated 12/20/17 @ 17:32 by Jose Neely DO) PVD (peripheral vascular disease) (Acute) I73.9 Carotid arterial disease (Chronic) I77.9 Hyperlipidemia (Chronic) E78.5 Nicotine dependence (Acute) F17.200 Cellulitis and abscess of buttock (Acute) 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 Z89.422 Asthma J45.909 CVA (cerebral vascular accident) I63.9 Chronic back pain M54.9, G89.29 Depression F32.9 Diabetes E11.9 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 HTN (hypertension) I10 Allergies Penicillins Allergy (Verified 09/13/17 18:40) Rash Home Medications: Ambulatory Orders Medication Instructions Recorded Amlodipine [Norvasc] 10 mg PO QHS 12/18/15 Lisinopril [Zestril] 10 mg PO DAILY 12/18/15 busPIRone [Buspar] 5 mg PO TID 12/18/15 Sertraline HCl [Zoloft] 25 mg PO DINNER 10/11/16 Simethicone 125 mg PO TID PRN PRN 10/11/16 Clopidogrel Bisulfate [Clopidogrel] 75 mg PO DAILY 12/10/17 Mometasone Furoate [Elocon] 50 gm TP DAILY 12/10/17 Acetaminophen [Tylenol Tablet] 650 mg PO Q6H PRN PRN tablet 12/14/17 Glucerna Shake 120 ml PO TIDCM liquid 12/14/17 Insulin Glargine,Hum.rec.anlog 10 unit SQ DAILY #200 ml 12/14/17 [Lantus] Insulin Lispro [Humalog KwikPen] See Protocol SQ ACHS insuln.pen 12/14/17 Magnesium Hydroxide [Milk Of 30 ml PO DAILY PRN PRN udc 12/14/17 Magnesia] Oxycodone [Oxyir] 5 mg PO Q4H PRN PRN 5 Days #16 tab 12/14/17 Triamcinolone 0.5% Cream [Kenalog] 1 applic TOPICAL DAILY tube 12/14/17 Surgical History: Surgical History (Last Reviewed 12/20/17 @ 17:32 by Jose Neely DO) History of esophagogastroduodenoscopy (EGD) Z98.890 S/P carotid endarterectomy Z98.890 S/P colonoscopy Z98.890 Surgical History: - - Patient has undergone right carotid endarterectomy by Dr. Siva Jimenez approximately 7 years ago. She is a Ab0. Smoking Status: Former smoker Tobacco Use: Cigarettes Alcohol: None Drugs: None - *Family History Maternal Family History: Family History (Last Updated 11/08/17 @ 13:38 by Melva Ashby) Mother No problems noted. History Items: - - Patient's father in his 40s from myocardial infarction. Patient's mother in her 40s from a cerebrovascular accident. Review of Systems Constitutional: Denies: Chills, Fever, Weight Change HEENT: Denies: Head Aches, Sinus Congestion, Sinus Drainage Cardiovascular: Denies: Chest Pain, Palpitations Respiratory: Denies: Cough, Shortness of breath at rest, Sputum production Gastrointestinal: Denies: Abdominal Pain, Nausea, Vomiting Genitourinary: Denies: Dysuria Musculoskeletal: Reports: - - foot pain.. Denies: Joint Pain, Joint Tenderness Skin: Reports: - - erythema of left foot. Comment: All review of systems are negative except as mentioned in the history of present illness and the other review of systems. VTE Information - Inpt Only VTE Present on Admission: No VTE Pharm Prophylaxis ordered?: Yes Patient Problems: Active and Suspected Problems (Last Reviewed 12/10/17 @ 11:23 by Jose Neely DO) Cellulitis of left foot (Acute) - Physical Exam General: Alert, Cooperative, No apparent distress HEENT: Atraumatic, Normocephalic Oral: Moist Mucosa, No Gingival or Mucosal Lesions/ Ulcerations Neck: No Nodes, Thyroid Normal Size and Texture Lungs: Clear to auscultation, Normal air movement, No rhonchi, No wheeze Cardiovascular: Regular rate, Regular Rhythm, Normal S1, Normal S2 Abdomen: Bowel Sounds Present, Soft, Non Tender, Non-Distended, No Hepato- splenomegaly Extremities: - - Trace edema of the left lower extremity. Slight edema of the left ankle and dorsum of her left foot. Skin: - - Left lateral foot incision is clean and intact. No purulence can be expressed. Very tender palpation. No fluctuance. Does have some erythema extending proximally. 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 Left foot cellulitis * Patient will be put on broad-spectrum antibiotics with vancomycin and aztreonam. Patient has penicillin allergy. * Podiatry will be on consult * Check an MRI of her foot * Check duplex to evaluate for any DVT as patient has limited weightbearing status 2. Diabetes mellitus type 2 * Continue with her home medications plus sliding scale 3. Peripheral arterial disease * Continue with Plavix * Follow-up Dr. Jimenez as outpatient 4. DVT prophylaxis with low molecular weight heparin Code Visit Inpatient E&M: 38691 Init Hosp L2
[2017-12-20] MEDS: Morphine 2 MG/ML Syringe IV ×2 (18:01→23:50)
--- NOTE | 2017-12-20 18:10 | NURSING ---
Swab collected from wound and wound dressed per orders. Patient given 2mg morphine for pain 01/05 and taken to [facility] at this time. Pt assisted with ordering dinner at 1753.
[2017-12-20 18:15] LABS: Absolute Lymphocyte Count 2.27 X10^3/ul (0.83-4.51); Absolute Neutrophil Count 7.2 X10^3/uL (2.0-7.7); Basophil# 0.05 X10^3/uL; Basophil% 0.5 % (0-1); Eosinophil# 0.28 X10^3/uL; Eosinophils% 2.7 % (0-5); Hematocrit 34.9 % (37-47); Hemoglobin 11.4 g/dl (12.0-15.0); Lymphocyte # 2.27 X10^3/ul (4.0); Lymphocyte % 21.6 % (19-41); Mean Corp Hgb Conc 32.7 g/gl (32-36); Mean Corpuscular Hgb 29.4 pg (27.0-32.0); Mean Corpuscular Volume 89.9 fL (81-99); Mean Platelet Vol. 9.5 fl (6.2-12.0); Monocyte# 0.72 X10^3/uL; Monocyte% 6.8 % (0-10); Neutrophil # 7.19 X10^3/uL (2.7-7.7); Neutrophil % 68.2 % (47-70); Platelet Count 428 K/mm3 (150-450); RBC Distribution Width SD 45.7 fl (35.1-43.9); Red Blood Count 3.88 M/mm3 (4.2-5.4); White Blood Count 10.5 K/mm3 (4.4-11.0)
[2017-12-20 18:16] LABS: POSITIVE COUNT NO; POSITIVE DIFFERENTIAL NO; POSITIVE MORPHOLOGY NO
[2017-12-20 18:22] LABS: Erythrocyte Sedimentation Rate 84 mm/hr (0-30)
[2017-12-20 18:29] LABS: Anion Gap 6 (5-15); BUN 24 mg/dL (7-18); BUN/Creat Ratio 21.4 RATIO (10-20); Chloride 102 mmol/L (98-107); Creatinine, Serum 1.12 mg/dL (0.55-1.02); EST Glomerular Filtration Rate 52 mL/min (>60); Est Glom Filt Rate - Afr Amer 63 mL/min (>60); Estimated Creatinine Clearance 37.41 ml/min; Glucose 161 mg/dL (74-106); Potassium 4.2 mmol/L (3.5-5.1); Sodium Level 138 mmol/L (136-145)
[2017-12-20] MEDS: Vancomycin IV 1,000 MG/200 ML BAG 200 MG IV (19:14)
[2017-12-20] MEDS: 0.9% NaCl Peripheral Flush Adult/Peds IV (19:14)
[2017-12-20 19:26] LABS: Bedside Glucose 174 mg/dL (70-110)
[2017-12-20] MEDS: Insulin Lispro 100 UNIT/ML INSULN.PEN SQ (19:31)
--- NOTE | 2017-12-20 20:00 | RAD_ITS ---
STUDY: X-RAY - LEFT FOOT CLINICAL: Female, 62 years old. Infection, left foot, cellulitis. TECHNIQUE: 3 view(s) of the foot. COMPARISON: None. FINDINGS: There is demineralization of the rear and midfoot bones. Normal visualized subtalar, talonavicular, calcaneocuboid, tarsal and tarsometatarsal articulations. There is amputation of the mid fifth metatarsal with adjacent soft tissue swelling and lucency suggestive of subcutaneous cutaneous emphysema near the amputation site. Diffuse demineralization of the remaining metatarsals are present. Normal metatarsophalangeal joint of the great toe. Normal tibial and fibular sesamoid bones. There is degenerative arthrosis of the interphalangeal joint of the great toe. Normal phalanges of the great toe. Normal second through fifth metatarsophalangeal joints. Normal interphalangeal joints and phalanges of the lesser toes. The soft tissue structures are unremarkable. RAD/Foot min 3 Views IMPRESSION: Mid fifth metatarsal amputation with surrounding soft tissue prominence and likely subcutaneous emphysema within this region suggestive of underlying abscess versus phlegmon in the appropriate clinical setting. Postsurgical changes are also a consideration. For definitive evaluation of osseous infection further evaluation with three-phase nuclear medicine bone scan or MRI may be obtained. Electronically Signed: Live Turner DO at 20:33 EDT , Service support ,
[2017-12-20 21:05] LABS: M R Staph aureus DNA By PCR Negative (Negative); Probe Check PASS; Specimen Processing Control PASS; Staph aureus DNA By PCR NEGATIVE (Negative)
[2017-12-20] MEDS: Acetaminophen 325 MG Tablet 650 MG PO (21:06)
[2017-12-20] MEDS: oxyCODONE 5 MG Tablet PO ×2 (21:07→22:28)
[2017-12-20] MEDS: amLODIPine 10 MG Tablet PO (22:28)
[2017-12-20] MEDS: busPIRone 5 MG Tablet PO (22:28)
[2017-12-20 22:30] VITALS: BP 171/80; PULSE 78; RESP 16; TEMP 36.8; O2SAT 99
[2017-12-20] MEDS: DiphenhydrAMINE 25 MG Capsule PO (22:35)
--- NOTE | 2017-12-20 22:50 | PCM.RX.CS ---
Consult Pharmacy has been consulted to manage selected antiobiotic: Vancomycin Type of Consult: New start Suspected Infection: Skin/Soft tissue Prior Doses of Antibiotics Received/Current Regimen: Medications Vancomycin HCl 750 mg/ Sodium (Chloride) 265 mls @ 265 mls/hr IV Q24H ALBERTO Discontinued Medications Vancomycin HCl (Vancomycin) 1,000 mg in 200 mls @ 200 mls/hr IV X1 ONE Stop: 12/20/17 18:59 Last Admin: 12/20/17 19:14 Dose: 200 mls/hr Labs: Sodium 138 mmol/L (136-145) 12/20/17 17:58 Potassium 4.2 mmol/L (3.5-5.1) 12/20/17 17:58 Chloride 102 mmol/L (98-107) 12/20/17 17:58 Carbon Dioxide 30.0 mmol/L (21.0-32.0) 12/20/17 17:58 Anion Gap 6 (5-15) 12/20/17 17:58 BUN 24 mg/dL (7-18) H 12/20/17 17:58 Creatinine 1.12 mg/dL (0.55-1.02) H 12/20/17 17:58 Est GFR (MDRD) Af Amer 63 mL/min (>60) 12/20/17 17:58 Est GFR (MDRD) Non-Af 52 mL/min (>60) L 12/20/17 17:58 BUN/Creatinine Ratio 21.4 RATIO (10-20) H 12/20/17 17:58 Glucose 161 mg/dL (74-106) H 12/20/17 17:58 Weight used for dosin.4 kg Estimated Creatinine Clearance: 37.4 Goal Trough: 10-15 mcg/mL Pharmacy Plan for Drug Dosing: Pharmacy Service will continue to monitor and adjust dosing as required. Follow-Up Labs: Trough Vancomycin Labs to be done on [date and time ordered]: 12/22/17 @7312
[2017-12-20 23:01] LABS: Bedside Glucose 243 mg/dL (70-110)
[2017-12-20 23:30] VITALS: BP 145/79; PULSE 76; RESP 16; TEMP 36.6; O2SAT 99
[2017-12-21] MEDS: oxyCODONE 5 MG Tablet PO ×4 (02:49→18:34)
[2017-12-21 03:01] VITALS: BP 128/78; PULSE 68; RESP 16; TEMP 36.9; O2SAT 98
[2017-12-21] MEDS: Morphine 2 MG/ML Syringe IV ×2 (06:36→11:57)
[2017-12-21] MEDS: busPIRone 5 MG Tablet PO ×2 (06:38→16:43)
[2017-12-21] MEDS: Insulin Lispro 100 UNIT/ML INSULN.PEN SQ (06:53)
[2017-12-21 06:56] LABS: Bedside Glucose 157 mg/dL (70-110)
[2017-12-21] MEDS: Glucerna Shake 120 ML LIQUID PO (07:51)
--- NOTE | 2017-12-21 08:16 | PCM.CONS.GEN ---
Reason for Consult Date of Consultation: 12/21/17 Reason for Consultation: CELLULITIS OF LEFT FOOT History of Present Illness: The patient is a 62 year old F who has history of pad and gangrene underwent amputation of left 5th ray last week. intra-op cultures and pathology did not show any infection. she was discharged last and she was found to be doing very well. she had bandage changed on Monday of last week and her foot was stable per patient. over the past few days, her left foot began to swell and become increasingly painful. she was seen by me yesterday at which time, she was found to have redness and pain of left foot. she denies n/v/f/c. she does have pain to left foot. she was admitted to hospital where xrays and mri were performed. ] Past Medical History Past Medical History (Chronic Problems): Chronic Problems (Last Updated 12/20/17 @ 17:32 by Jose Neely DO) Chronic ulcer of buttock (Chronic) Abscess of buttock (Chronic) Diabetes mellitus (Chronic) Hypertension (Chronic) History of CVA (cerebrovascular accident) (Chronic) Caries (Chronic) Tobacco abuse (Chronic) Tobacco abuse counseling (Chronic) Carotid arterial disease (Chronic) Hyperlipidemia (Chronic) Medical History: Medical History (Last Updated 12/20/17 @ 17:32 by Jose Neely DO) PVD (peripheral vascular disease) (Acute) I73.9 Carotid arterial disease (Chronic) I77.9 Hyperlipidemia (Chronic) E78.5 Nicotine dependence (Acute) F17.200 Cellulitis and abscess of buttock (Acute) 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 Z89.422 Asthma J45.909 CVA (cerebral vascular accident) I63.9 Chronic back pain M54.9, G89.29 Depression F32.9 Diabetes E11.9 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 HTN (hypertension) I10 Allergies Penicillins Allergy (Verified 09/13/17 18:40) Rash Home Medications: Ambulatory Orders Medication Instructions Recorded Amlodipine [Norvasc] 10 mg PO QHS 12/18/15 Lisinopril [Zestril] 10 mg PO DAILY 12/18/15 busPIRone [Buspar] 5 mg PO TID 12/18/15 Sertraline HCl [Zoloft] 25 mg PO DINNER 10/11/16 Simethicone 125 mg PO TID PRN PRN 10/11/16 Clopidogrel Bisulfate [Clopidogrel] 75 mg PO DAILY 12/10/17 Mometasone Furoate [Elocon] 50 gm TP DAILY 12/10/17 Acetaminophen [Tylenol Tablet] 650 mg PO Q6H PRN PRN tablet 12/14/17 Glucerna Shake 120 ml PO TIDCM liquid 12/14/17 Magnesium Hydroxide [Milk Of 30 ml PO DAILY PRN PRN udc 12/14/17 Magnesia] Triamcinolone 0.5% Cream [Kenalog] 1 applic TOPICAL DAILY tube 12/14/17 DiphenhydrAMINE [Benadryl] 25 mg PO TID PRN PRN 12/20/17 Insulin Glargine,Hum.rec.anlog 10 unit SQ QHS 12/20/17 [Lantus] Insulin Lispro [Humalog KwikPen] See Protocol SQ 0600,1600 12/20/17 Nutritional Supplement [Rene - 1 packet PO BIDCM 12/20/17 [place] FLAVOR] Oxycodone [Oxyir] 5 - 10 mg PO Q4H PRN PRN 12/20/17 Surgical History: Surgical History (Last Reviewed 12/20/17 @ 17:32 by Jose Neely DO) History of esophagogastroduodenoscopy (EGD) Z98.890 S/P carotid endarterectomy Z98.890 S/P colonoscopy Z98.890 Surgical History: - - Patient has undergone right carotid endarterectomy by Dr. Siva Jimenez approximately 7 years ago. She is a Ab0. Smoking Status: Former smoker Tobacco Use: Cigarettes Alcohol: None Drugs: None - *Family History Maternal Family History: Family History (Last Updated 11/08/17 @ 13:38 by Melva Ashby) Mother No problems noted. History Items: - - Patient's father in his 40s from myocardial infarction. Patient's mother in her 40s from a cerebrovascular accident. Patient Problems: Active and Suspected Problems (Last Updated 12/20/17 @ 17:32 by Jose Neely DO) Cellulitis of left foot (Acute) Objective: patient is alert and orientated. she does not appear to be in any distress left foot with surgical incision approximated with no dehisence. there is redness that does appear to be improving from yesterday outline. there is no drainage noted. there is pain to palpation of left 5th metatarsal. xray and mri reviewed. there is very small collection of fluid which could indicate abscess vs blood collection - Physical Exam Vital Signs Temp Pulse Resp BP Pulse Ox 98.5 F 68 16 128/78 H 98 12/21/17 03:01 12/21/17 03:01 12/21/17 03:01 12/21/17 03:01 12/21/17 03:01 Oxygen Delivery Method Room Air Weight: 61.4 kg Body Mass Index (BMI) 26.4 Intake and Output for Last 24 Hours 12/19/17 12/20/17 12/21/17 23:59 23:59 23:59 Intake Total 663 / 663 301 / 301 Balance 663 / 663 301 / 301 Laboratory Tests Past 24 Hrs 12/20/17 12/20/17 12/20/17 17:58 17:58 18:10 WBC 10.5 RBC 3.88 L Hgb 11.4 L Hct 34.9 L MCV 89.9 MCH 29.4 MCHC 32.7 RDW 14.0 RDW Differential 45.7 H Plt Count 428 MPV 9.5 Immature Gran % (Auto) 0.200 Neut % (Auto) 68.2 Lymph % (Auto) 21.6 Alfalfa % (Auto) 6.8 Eos % (Auto) 2.7 Baso % (Auto) 0.5 Absolute Neuts (auto) 7.2 Absolute Lymphs (auto) 2.27 Total Counted Not Reportable ESR 84 H Sodium 138 Potassium 4.2 Chloride 102 Carbon Dioxide 30.0 Anion Gap 6 BUN 24 H Creatinine 1.12 H Estim Creat Clear Calc 37.41 Est GFR (MDRD) Af Amer 63 Est GFR (MDRD) Non-Af 52 L BUN/Creatinine Ratio 21.4 H Glucose 161 H Calcium 9.0 C-React Prot Ext Range 59.50 H S.aureus Protein A PCR NEGATIVE MRSA (PCR) Negative POC Glucose 12/21/17 12/20/17 12/20/17 06:50 22:27 19:20 POC Glucose 157 H 243 H 174 H Assessment/Plan All Active Problems (Last Updated 12/20/17 @ 17:32 by Jose Neely DO) Abscess of right buttock (Acute) 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 on exam, she has redness, pain but there does not appear to be any drainage. MRI reviewed. there is very small collection of fluid which could be abscess vs small collection of post-op blood. there is inflammation on bone but I suspect this to be post-surgical. given her pain, redness and concern of underlying fluid collection, we did discuss performing incision and drainage, irrigation of left foot wound, obtaining deep cultures of fluid and bone. patient informed that if we perform this procedure, there is possibility that we may not find any significant pus. She understands this. She does agree to proceed with incision and drainage. I did inform patient that I would perform I&D today, pack open for 3 days and close on Monday. Today, the tissue quality does appear adequate to proceed with a scheduled closure of any surgical I&D. if tissue quality changes, one may need to consider wound vac. I will consult ID. will discuss with operating room regarding or availability for today
[2017-12-21] MEDS: Lisinopril 10 MG Tablet PO (08:42)
[2017-12-21] MEDS: Clopidogrel Bisulfate 75 MG Tablet PO (08:43)
[2017-12-21] MEDS: Triamcinolone 0.5% Cream 1 APPLIC TOPICAL (08:43)
[2017-12-21 08:45] VITALS: BP 141/70; PULSE 78; RESP 18; TEMP 36.8; O2SAT 94
[2017-12-21] MEDS: DiphenhydrAMINE 25 MG Capsule PO ×2 (08:45→18:34)
--- NOTE | 2017-12-21 09:40 | NURSING ---
wound photo: left lateral foot
--- NOTE | 2017-12-21 09:41 | NURSING ---
wound photo: left foot
--- NOTE | 2017-12-21 10:35 | PCM.HP.ID ---
Problem List (1) Cellulitis of left foot Status: Acute Reason for Consult: foot swelling and redness Consulted by: Dr. 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 Laird on 12/11. Discharged to [facility], had progressive foot pain, swelling, mild redness, some bloody drainage on dressing. No fever or chills, no outpt abx. Due to foot changes, sent to hospital, started on vanc/aztreonam, plan is for OR exploration today. Feeling ok. Reports swelling with PCN in past, no issues with keflex. Full ROS performed and neg except as noted above. - Medical History Past Medical History (Chronic Problems): Chronic Problems (Last Updated 12/20/17 @ 17:32 by Jose Neely DO) Chronic ulcer of buttock (Chronic) Abscess of buttock (Chronic) Diabetes mellitus (Chronic) Hypertension (Chronic) History of CVA (cerebrovascular accident) (Chronic) Caries (Chronic) Tobacco abuse (Chronic) Tobacco abuse counseling (Chronic) Carotid arterial disease (Chronic) Hyperlipidemia (Chronic) Allergies/Adverse Reactions: Allergies Penicillins Allergy (Severe, Verified 12/21/17 10:35) Swelling tolerated keflex in past with no issue Home Medications: Ambulatory Orders Medication Instructions Recorded Amlodipine [Norvasc] 10 mg PO QHS 12/18/15 Lisinopril [Zestril] 10 mg PO DAILY 12/18/15 busPIRone [Buspar] 5 mg PO TID 12/18/15 Sertraline HCl [Zoloft] 25 mg PO DINNER 10/11/16 Simethicone 125 mg PO TID PRN PRN 10/11/16 Clopidogrel Bisulfate [Clopidogrel] 75 mg PO DAILY 12/10/17 Mometasone Furoate [Elocon] 50 gm TP DAILY 12/10/17 Acetaminophen [Tylenol Tablet] 650 mg PO Q6H PRN PRN tablet 12/14/17 Glucerna Shake 120 ml PO TIDCM liquid 12/14/17 Magnesium Hydroxide [Milk Of 30 ml PO DAILY PRN PRN udc 12/14/17 Magnesia] Triamcinolone 0.5% Cream [Kenalog] 1 applic TOPICAL DAILY tube 12/14/17 DiphenhydrAMINE [Benadryl] 25 mg PO TID PRN PRN 12/20/17 Insulin Glargine,Hum.rec.anlog 10 unit SQ QHS 12/20/17 [Lantus] Insulin Lispro [Humalog KwikPen] See Protocol SQ 0600,1600 12/20/17 Nutritional Supplement [Rene - 1 packet PO BIDCM 12/20/17 ORANGE FLAVOR] Oxycodone [Oxyir] 5 - 10 mg PO Q4H PRN PRN 12/20/17 - Social History SMOKING STATUS:: Former smoker Vital Signs Temp Pulse Resp BP Pulse Ox 98.3 F 78 18 141/70 H 94 12/21/17 08:45 12/21/17 08:45 12/21/17 08:45 12/21/17 08:45 12/21/17 08:45 Oxygen Delivery Method Room Air Weight: 61.4 kg Body Mass Index (BMI) 26.4 Laboratory Tests Past 24 Hrs 12/20/17 12/20/17 12/20/17 17:58 17:58 18:10 WBC 10.5 RBC 3.88 L Hgb 11.4 L Hct 34.9 L MCV 89.9 MCH 29.4 MCHC 32.7 RDW 14.0 RDW Differential 45.7 H Plt Count 428 MPV 9.5 Immature Gran % (Auto) 0.200 Neut % (Auto) 68.2 Lymph % (Auto) 21.6 [place] % (Auto) 6.8 Eos % (Auto) 2.7 Baso % (Auto) 0.5 Absolute Neuts (auto) 7.2 Absolute Lymphs (auto) 2.27 Total Counted Not Reportable ESR 84 H Sodium 138 Potassium 4.2 Chloride 102 Carbon Dioxide 30.0 Anion Gap 6 BUN 24 H Creatinine 1.12 H Estim Creat Clear Calc 37.41 Est GFR (MDRD) Af Amer 63 Est GFR (MDRD) Non-Af 52 L BUN/Creatinine Ratio 21.4 H Glucose 161 H Calcium 9.0 C-React Prot Ext Range 59.50 H S.aureus Protein A PCR NEGATIVE MRSA (PCR) Negative - Other Studies Radiology: [] reviewed Other Studies: [] Route of nutrition/ use of supplements: [] Nutritional Intake: [] IV Site: [] Woods Catheter: [] - Physical Exam General: Alert, Oriented x3, Cooperative, No apparent distress HEENT: Atraumatic, PERRLA, EOMI Neck: Supple, No Nodes Lungs: Clear to auscultation, Normal air movement Cardiovascular: Regular rate, Regular Rhythm Abdomen: Bowel Sounds Present, Soft, Non Tender, Non-Distended Extremities: Edema - mild Skin: Incision - L foot sutures intact, mild surrounding redness IV Site: Peripheral, without redness Musculoskeletal: No Tenderness to Palpation of Joints or Extremities Neurological: Cranial nerves II-XII grossly intact - Assessment/Plan Antibiotics: [] Assessment/Plan: [] Active and Suspected Problems (Last Updated 12/20/17 @ 17:32 by Jose Neely DO) Cellulitis of left foot (Acute) S/p 5th ray resection 12/11/[address] Laird, now with some redness and swelling. MRI showed fluid collection. Will cover empirically with vanc/cefepime while surgery and cxs are pending. Reports tolerating keflex in past. Thank you, will follow, d/w Dr. Laird.
--- NOTE | 2017-12-21 10:41 | CON.PCM_ITS ---
Problem List (1) Cellulitis of left foot Status: Acute Reason for Consult: foot swelling and redness Consulted by: Dr. 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 Laird on 12/11. Discharged to [facility], had progressive foot pain, swelling , mild redness, some bloody drainage on dressing. No fever or chills, no outpt abx. Due to foot changes, sent to hospital, started on vanc/aztreonam, plan is for OR exploration today. Feeling ok. Reports swelling with PCN in past, no issues with keflex. Full ROS performed and neg except as noted above. - Medical History Past Medical History (Chronic Problems): Chronic Problems (Last Updated 12/20/17 @ 17:32 by Jose Neely DO) Chronic ulcer of buttock (Chronic) Abscess of buttock (Chronic) Diabetes mellitus (Chronic) Hypertension (Chronic) History of CVA (cerebrovascular accident) (Chronic) Caries (Chronic) Tobacco abuse (Chronic) Tobacco abuse counseling (Chronic) Carotid arterial disease (Chronic) Hyperlipidemia (Chronic) Allergies/Adverse Reactions: Allergies Penicillins Allergy (Severe, Verified 12/21/17 10:35) Swelling tolerated keflex in past with no issue Home Medications: Ambulatory Orders Medication Instructions Recorded Amlodipine [Norvasc] 10 mg PO QHS 12/18/15 Lisinopril [Zestril] 10 mg PO DAILY 12/18/15 busPIRone [Buspar] 5 mg PO TID 12/18/15 Sertraline HCl [Zoloft] 25 mg PO DINNER 10/11/16 Simethicone 125 mg PO TID PRN PRN 10/11/16 Clopidogrel Bisulfate [Clopidogrel] 75 mg PO DAILY 12/10/17 Mometasone Furoate [Elocon] 50 gm TP DAILY 12/10/17 Acetaminophen [Tylenol Tablet] 650 mg PO Q6H PRN PRN tablet 12/14/17 Glucerna Shake 120 ml PO TIDCM liquid 12/14/17 Magnesium Hydroxide [Milk Of 30 ml PO DAILY PRN PRN udc 12/14/17 Magnesia] Triamcinolone 0.5% Cream [Kenalog] 1 applic TOPICAL DAILY tube 12/14/17 DiphenhydrAMINE [Benadryl] 25 mg PO TID PRN PRN 12/20/17 Insulin Glargine,Hum.rec.anlog 10 unit SQ QHS 12/20/17 [Lantus] Insulin Lispro [Humalog KwikPen] See Protocol SQ 0600,1600 12/20/17 Nutritional Supplement [Rene - 1 packet PO BIDCM 12/20/17 ORANGE FLAVOR] Oxycodone [Oxyir] 5 - 10 mg PO Q4H PRN PRN 12/20/17 - Social History SMOKING STATUS:: Former smoker Vital Signs Temp Pulse Resp BP Pulse Ox 98.3 F 78 18 141/70 H 94 12/21/17 08:45 12/21/17 08:45 12/21/17 08:45 12/21/17 08:45 12/21/17 08:45 Oxygen Delivery Method Room Air Weight: 61.4 kg Body Mass Index (BMI) 26.4 Laboratory Tests Past 24 Hrs 12/20/17 12/20/17 12/20/17 17:58 17:58 18:10 WBC 10.5 RBC 3.88 L Hgb 11.4 L Hct 34.9 L MCV 89.9 MCH 29.4 MCHC 32.7 RDW 14.0 RDW Differential 45.7 H Plt Count 428 MPV 9.5 Immature Gran % (Auto) 0.200 Neut % (Auto) 68.2 Lymph % (Auto) 21.6 [place] % (Auto) 6.8 Eos % (Auto) 2.7 Baso % (Auto) 0.5 Absolute Neuts (auto) 7.2 Absolute Lymphs (auto) 2.27 Total Counted Not Reportable ESR 84 H Sodium 138 Potassium 4.2 Chloride 102 Carbon Dioxide 30.0 Anion Gap 6 BUN 24 H Creatinine 1.12 H Estim Creat Clear Calc 37.41 Est GFR (MDRD) Af Amer 63 Est GFR (MDRD) Non-Af 52 L BUN/Creatinine Ratio 21.4 H Glucose 161 H Calcium 9.0 C-React Prot Ext Range 59.50 H S.aureus Protein A PCR NEGATIVE MRSA (PCR) Negative - Other Studies Radiology: [] reviewed Other Studies: [] Route of nutrition/ use of supplements: [] Nutritional Intake: [] IV Site: [] Woods Catheter: [] - Physical Exam General: Alert, Oriented x3, Cooperative, No apparent distress HEENT: Atraumatic, PERRLA, EOMI Neck: Supple, No Nodes Lungs: Clear to auscultation, Normal air movement Cardiovascular: Regular rate, Regular Rhythm Abdomen: Bowel Sounds Present, Soft, Non Tender, Non-Distended Extremities: Edema - mild Skin: Incision - L foot sutures intact, mild surrounding redness IV Site: Peripheral, without redness Musculoskeletal: No Tenderness to Palpation of Joints or Extremities Neurological: Cranial nerves II-XII grossly intact - Assessment/Plan Antibiotics: [] Assessment/Plan: [] Active and Suspected Problems (Last Updated 12/20/17 @ 17:32 by Jose Neely DO ) Cellulitis of left foot (Acute) S/p 5th ray resection 12/11/[address] Laird, now with some redness and swelling. MRI showed fluid collection. Will cover empirically with vanc/ cefepime while surgery and cxs are pending. Reports tolerating keflex in past. Thank you, will follow, d/w Dr. Laird.
[2017-12-21 11:56] LABS: Bedside Glucose 125 mg/dL (70-110)
--- NOTE | 2017-12-21 12:42 | PCM.PROGNOTE ---
<Binh Hong - Last Filed: 12/21/17 12:42> Patient Problems: Active and Suspected Problems (Last Updated 12/20/17 @ 17:32 by Jose Neely DO) Cellulitis of left foot (Acute) Subjective: pt resting comfortably in bed. agreeable to I/D. Pain controlled. No fever/chills. - Physical Exam General: Alert, Oriented x3, Cooperative HEENT: Atraumatic, PERRLA, EOMI, Normocephalic Neck: Supple, No JVD, Negative Carotid Bruits Lungs: Clear to auscultation, Normal air movement Cardiovascular: Regular rate, No murmurs Abdomen: Bowel Sounds Present, Soft, Non Tender Extremities: No edema, Capillary Refill Less than 3 Seconds Skin: No rashes, No breakdown, - - extensive small scabbed wound/scars on back Musculoskeletal: No Tenderness to Palpation of Joints or Extremities, - - wounds dressed appropriately. Neurological: Cranial nerves II-XII grossly intact Psych/Mental Status: Normal Affect, Appropriate, Alert and oriented to time, place, person, mood and affect Vital Signs Temp Pulse Resp BP Pulse Ox 98.3 F 78 18 141/70 H 94 12/21/17 08:45 12/21/17 08:45 12/21/17 08:45 12/21/17 08:45 12/21/17 08:45 Oxygen Delivery Method Room Air Weight: 135 lb 5.821 oz Body Mass Index (BMI) 26.4 Intake and Output for Last 24 Hours 12/19/17 12/20/17 12/21/17 23:59 23:59 23:59 Intake Total 663 / 663 771 / 771 Balance 663 / 663 771 / 771 Laboratory Tests Past 24 Hrs 12/20/17 12/20/17 12/20/17 17:58 17:58 18:10 WBC 10.5 RBC 3.88 L Hgb 11.4 L Hct 34.9 L MCV 89.9 MCH 29.4 MCHC 32.7 RDW 14.0 RDW Differential 45.7 H Plt Count 428 MPV 9.5 Immature Gran % (Auto) 0.200 Neut % (Auto) 68.2 Lymph % (Auto) 21.6 [place] % (Auto) 6.8 Eos % (Auto) 2.7 Baso % (Auto) 0.5 Absolute Neuts (auto) 7.2 Absolute Lymphs (auto) 2.27 Total Counted Not Reportable ESR 84 H Sodium 138 Potassium 4.2 Chloride 102 Carbon Dioxide 30.0 Anion Gap 6 BUN 24 H Creatinine 1.12 H Estim Creat Clear Calc 37.41 Est GFR (MDRD) Af Amer 63 Est GFR (MDRD) Non-Af 52 L BUN/Creatinine Ratio 21.4 H Glucose 161 H Calcium 9.0 C-React Prot Ext Range 59.50 H S.aureus Protein A PCR NEGATIVE MRSA (PCR) Negative POC Glucose 12/21/17 12/21/17 12/20/17 11:45 06:50 22:27 POC Glucose 125 H 157 H 243 H 12/20/17 19:20 POC Glucose 174 H Medical Necessity - Tobacco Use Smoking Status: Former smoker Tobacco Use: Cigarettes Assessment/Plan All Active Problems (Last Updated 12/20/17 @ 17:32 by Jose Neely DO) Abscess of right buttock (Acute) 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 Left foot cellulitis/abscess - see mri, xr. Afebrile no WBC elevation. To OR for I&D today with Dr. Laird. Dr. Mckinley following -continue vanc/cefipime. Complicated by PAD, DMt2, nicotine abuse. Wound care consult. MRSA/MSSA screen neg. 2. PAD - Plavix. f/u with Dr. Jimenez. 3. DM t2 - titrate insulin to response. 4. Nicotine abuse - in remission x 3 weeks. Does not want patch. 5. HTN - improving. 6. Anx/Dep - continue home meds. 7. Suspect CKD stage III - stable. DVT ppx: lovenox on hold DC planning: PTOT. This patient was seen by Binh Hong PA-C under the supervision of Doctor Christensen. <Mike Christensen E - Last Filed: 12/21/17 13:03> - Physical Exam Vital Signs Temp Pulse Resp BP Pulse Ox 98.3 F 78 18 141/70 H 94 07/26/18 08:45 12/21/17 08:45 12/21/17 08:45 12/21/17 08:45 12/21/17 08:45 Oxygen Delivery Method Room Air Weight: 135 lb 5.821 oz Body Mass Index (BMI) 26.4 Intake and Output for Last 24 Hours 12/19/17 12/20/17 12/21/17 23:59 23:59 23:59 Intake Total 663 / 663 771 / 771 Balance 663 / 663 771 / 771 Laboratory Tests Past 24 Hrs 12/20/17 12/20/17 12/20/17 17:58 17:58 18:10 WBC 10.5 RBC 3.88 L Hgb 11.4 L Hct 34.9 L MCV 89.9 MCH 29.4 MCHC 32.7 RDW 14.0 RDW Differential 45.7 H Plt Count 428 MPV 9.5 Immature Gran % (Auto) 0.200 Neut % (Auto) 68.2 Lymph % (Auto) 21.6 [place] % (Auto) 6.8 Eos % (Auto) 2.7 Baso % (Auto) 0.5 Absolute Neuts (auto) 7.2 Absolute Lymphs (auto) 2.27 Total Counted Not Reportable ESR 84 H Sodium 138 Potassium 4.2 Chloride 102 Carbon Dioxide 30.0 Anion Gap 6 BUN 24 H Creatinine 1.12 H Estim Creat Clear Calc 37.41 Est GFR (MDRD) Af Amer 63 Est GFR (MDRD) Non-Af 52 L BUN/Creatinine Ratio 21.4 H Glucose 161 H Calcium 9.0 C-React Prot Ext Range 59.50 H S.aureus Protein A PCR NEGATIVE MRSA (PCR) Negative POC Glucose 12/21/17 12/21/17 12/20/17 11:45 06:50 22:27 POC Glucose 125 H 157 H 243 H 12/20/17 19:20 POC Glucose 174 H Assessment/Plan Hospitalist note: I am seeing this patient in conjunction with Binh Hong . I independently seen and examined the patient. Progress note above, laboratory data and imaging studies reviewed and I concur with the above treatment plan. Patient notes that her left foot pain is getting better. She denied any significant complaints. Her vitals are stable, afebrile. - Physical Exam General: Alert, Oriented x3, Cooperative, No apparent distress. HEENT: Atraumatic, PERRLA, EOMI. Neck: Supple, No JVD, Negative Carotid Bruits, Trachea Midline, Thyroid Normal. Lungs: Clear to auscultation, Normal air movement, No rhonchi, No wheeze, No rales. Cardiovascular: Regular rate, Regular Rhythm, Normal S1, Normal S2, PMI Normal. Abdomen: Bowel Sounds Present, Soft, Non Tender, Non-Distended, No Hepato-splenomegaly. Extremities: No clubbing, No cyanosis, No edema Skin: No rashes, breakdown Neurological: Neuro grossly intact Vital Signs are stable. Assessment and plan: #1 left foot cellulitis/questionable abscess: She is on IV cefepime and vancomycin. Vital signs are stable, afebrile, no leukocytosis. Wound cultures pending. MRI left foot revealed mild bone edema likely because of recent surgery, possible seroma or hematoma, abscess is unlikely as well as osteomyelitis. Podiatry medicine is pending for incision and drainage today. Plan to continue same treatment. 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 Plan as above. #3 other chronic medical problems: Stable, continue current medications. This note was generated with [employer] dictation software. It may contain incorrect words, spelling, and punctuation that were not noted in checking the note before signing. Code Visit Inpatient E&M: 19218 Subs Hosp L2
--- NOTE | 2017-12-21 12:51 | PN_ITS ---
<Binh Hong - Last Filed: 12/21/17 12:42> Patient Problems: Active and Suspected Problems (Last Updated 12/20/17 @ 17:32 by Jose Neely DO ) Cellulitis of left foot (Acute) Subjective: pt resting comfortably in bed. agreeable to I/D. Pain controlled. No fever/ chills. - Physical Exam General: Alert, Oriented x3, Cooperative HEENT: Atraumatic, PERRLA, EOMI, Normocephalic Neck: Supple, No JVD, Negative Carotid Bruits Lungs: Clear to auscultation, Normal air movement Cardiovascular: Regular rate, No murmurs Abdomen: Bowel Sounds Present, Soft, Non Tender Extremities: No edema, Capillary Refill Less than 3 Seconds Skin: No rashes, No breakdown, - - extensive small scabbed wound/scars on back Musculoskeletal: No Tenderness to Palpation of Joints or Extremities, - - wounds dressed appropriately. Neurological: Cranial nerves II-XII grossly intact Psych/Mental Status: Normal Affect, Appropriate, Alert and oriented to time, place, person, mood and affect Vital Signs Temp Pulse Resp BP Pulse Ox 98.3 F 78 18 141/70 H 94 12/21/17 08:45 12/21/17 08:45 12/21/17 08:45 12/21/17 08:45 12/21/17 08:45 Oxygen Delivery Method Room Air Weight: 135 lb 5.821 oz Body Mass Index (BMI) 26.4 Intake and Output for Last 24 Hours 12/19/17 12/20/17 12/21/17 23:59 23:59 23:59 Intake Total 663 / 663 771 / 771 Balance 663 / 663 771 / 771 Laboratory Tests Past 24 Hrs 12/20/17 12/20/17 12/20/17 17:58 17:58 18:10 WBC 10.5 RBC 3.88 L Hgb 11.4 L Hct 34.9 L MCV 89.9 MCH 29.4 MCHC 32.7 RDW 14.0 RDW Differential 45.7 H Plt Count 428 MPV 9.5 Immature Gran % (Auto) 0.200 Neut % (Auto) 68.2 Lymph % (Auto) 21.6 [place] % (Auto) 6.8 Eos % (Auto) 2.7 Baso % (Auto) 0.5 Absolute Neuts (auto) 7.2 Absolute Lymphs (auto) 2.27 Total Counted Not Reportable ESR 84 H Sodium 138 Potassium 4.2 Chloride 102 Carbon Dioxide 30.0 Anion Gap 6 BUN 24 H Creatinine 1.12 H Estim Creat Clear Calc 37.41 Est GFR (MDRD) Af Amer 63 Est GFR (MDRD) Non-Af 52 L BUN/Creatinine Ratio 21.4 H Glucose 161 H Calcium 9.0 C-React Prot Ext Range 59.50 H S.aureus Protein A PCR NEGATIVE MRSA (PCR) Negative POC Glucose 12/21/17 12/21/17 12/20/17 11:45 06:50 22:27 POC Glucose 125 H 157 H 243 H 12/20/17 19:20 POC Glucose 174 H Medical Necessity - Tobacco Use Smoking Status: Former smoker Tobacco Use: Cigarettes Assessment/Plan All Active Problems (Last Updated 12/20/17 @ 17:32 by Jose Neely DO) Abscess of right buttock (Acute) 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 Left foot cellulitis/abscess - see mri, xr. Afebrile no WBC elevation. To OR for I&D today with Dr. Laird. Dr. Mckinley following -continue vanc/ cefipime. Complicated by PAD, DMt2, nicotine abuse. Wound care consult. MRSA/ MSSA screen neg. 2. PAD - Plavix. f/u with Dr. Jimenez. 3. DM t2 - titrate insulin to response. 4. Nicotine abuse - in remission x 3 weeks. Does not want patch. 5. HTN - improving. 6. Anx/Dep - continue home meds. 7. Suspect CKD stage III - stable. DVT ppx: lovenox on hold DC planning: PTOT. This patient was seen by Binh Hong PA-C under the supervision of Doctor Christensen. <Mike Christensen E - Last Filed: 12/21/17 13:03> - Physical Exam Vital Signs Temp Pulse Resp BP Pulse Ox 98.3 F 78 18 141/70 H 94 07/26/18 08:45 12/21/17 08:45 12/21/17 08:45 12/21/17 08:45 12/21/17 08:45 Oxygen Delivery Method Room Air Weight: 135 lb 5.821 oz Body Mass Index (BMI) 26.4 Intake and Output for Last 24 Hours 12/19/17 12/20/17 12/21/17 23:59 23:59 23:59 Intake Total 663 / 663 771 / 771 Balance 663 / 663 771 / 771 Laboratory Tests Past 24 Hrs 12/20/17 12/20/17 12/20/17 17:58 17:58 18:10 WBC 10.5 RBC 3.88 L Hgb 11.4 L Hct 34.9 L MCV 89.9 MCH 29.4 MCHC 32.7 RDW 14.0 RDW Differential 45.7 H Plt Count 428 MPV 9.5 Immature Gran % (Auto) 0.200 Neut % (Auto) 68.2 Lymph % (Auto) 21.6 [place] % (Auto) 6.8 Eos % (Auto) 2.7 Baso % (Auto) 0.5 Absolute Neuts (auto) 7.2 Absolute Lymphs (auto) 2.27 Total Counted Not Reportable ESR 84 H Sodium 138 Potassium 4.2 Chloride 102 Carbon Dioxide 30.0 Anion Gap 6 BUN 24 H Creatinine 1.12 H Estim Creat Clear Calc 37.41 Est GFR (MDRD) Af Amer 63 Est GFR (MDRD) Non-Af 52 L BUN/Creatinine Ratio 21.4 H Glucose 161 H Calcium 9.0 C-React Prot Ext Range 59.50 H S.aureus Protein A PCR NEGATIVE MRSA (PCR) Negative POC Glucose 12/21/17 12/21/17 12/20/17 11:45 06:50 22:27 POC Glucose 125 H 157 H 243 H 12/20/17 19:20 POC Glucose 174 H Assessment/Plan Hospitalist note: I am seeing this patient in conjunction with Binh Hong . I independently seen and examined the patient. Progress note above, laboratory data and imaging studies reviewed and I concur with the above treatment plan. Patient notes that her left foot pain is getting better. She denied any significant complaints. Her vitals are stable, afebrile. - Physical Exam General: Alert, Oriented x3, Cooperative, No apparent distress. HEENT: Atraumatic, PERRLA, EOMI. Neck: Supple, No JVD, Negative Carotid Bruits, Trachea Midline, Thyroid Normal. Lungs: Clear to auscultation, Normal air movement, No rhonchi, No wheeze, No rales. Cardiovascular: Regular rate, Regular Rhythm, Normal S1, Normal S2, PMI Normal. Abdomen: Bowel Sounds Present, Soft, Non Tender, Non-Distended, No Hepato- splenomegaly. Extremities: No clubbing, No cyanosis, No edema Skin: No rashes, breakdown Neurological: Neuro grossly intact Vital Signs are stable. Assessment and plan: #1 left foot cellulitis/questionable abscess: She is on IV cefepime and vancomycin. Vital signs are stable, afebrile, no leukocytosis. Wound cultures pending. MRI left foot revealed mild bone edema likely because of recent surgery, possible seroma or hematoma, abscess is unlikely as well as osteomyelitis. Podiatry medicine is pending for incision and drainage today. Plan to continue same treatment. 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 Plan as above. #3 other chronic medical problems: Stable, continue current medications. This note was generated with [employer] dictation software. It may contain incorrect words, spelling, and punctuation that were not noted in checking the note before signing. Code Visit Inpatient E&M: 38745 Subs Hosp L2
--- NOTE | 2017-12-21 13:36 | CASEMGMT ---
Social Work Note SW is familiar with pt as pt was recently in [facility]. SW in to speak with pt to confirm discharge plans. SW introduced self and role at [facility]. Pt is alert and orientated x4. Pt confirms that she came from [facility] and her plan is to return there at discharge. SW informed pt that this worker will place a call to [facility] and keep them updated and will check to confirm that she is able to return. Pt states understanding. JAX placed a call to Beatriz at [facility] and left a message for her. Karin from [facility] called this worker back and states that she is able to accept pt and pt will need pre-cert again. Pt is scheduled for surgery today. This worker or following JAX will fax clinicals to [facility] when available. Plan: Return to [facility] pending pre-cert Steph Burris MSW, AGRICULTURE SPECIALIST
[2017-12-21 14:41] VITALS: BP 143/87; PULSE 79; RESP 18; TEMP 37.2; O2SAT 99; BMI 26.4
[2017-12-21 15:01] LABS: Bedside Glucose 112 mg/dL (70-110)
--- NOTE | 2017-12-21 16:07 | CASEMGMT ---
Tertiary hospitals in-network with [facility]: [facility], [place], [facility], [facility], [facility], [facility], and [facility].
[2017-12-21] MEDS: Sertraline 50 MG Tablet 25 MG PO (16:43)
[2017-12-21 16:52] LABS: Bedside Glucose 130 mg/dL (70-110)
--- NOTE | 2017-12-21 17:20 | PCM.DC.SUM ---
<Binh Hong - Last Filed: 12/21/17 17:20> Discharge Date and Diagnosis Date of Admission: 12/20/17 Date of Discharge: 12/21/17 - Primary Discharge Diagnosis Active and Suspected Problems (Last Updated 12/20/17 @ 17:32 by Jose Neely DO) Cellulitis of left foot (Acute) Nonhealing Left foot wound s/p left 5th digit partial ray amputation 12/11/17 BL PAD with diminished ABIs DMt2 Nicotine abuse HTN Suspected CKDIII - Secondary Discharge Diagnosis Chronic Problems (Last Updated 12/20/17 @ 17:32 by Jose Neely DO) Chronic ulcer of buttock (Chronic) Abscess of buttock (Chronic) Diabetes mellitus (Chronic) Hypertension (Chronic) History of CVA (cerebrovascular accident) (Chronic) Caries (Chronic) Tobacco abuse (Chronic) Tobacco abuse counseling (Chronic) Carotid arterial disease (Chronic) Hyperlipidemia (Chronic) Hospital Course and Treatment Imaging Results: JOANA Report RIGHT: PT 0.72, DP 0.80, Digit 0.51 LEFT: PT 0.53, DP 0.49, Digit 0.21 RAD/Foot min 3 Views IMPRESSION: Mid fifth metatarsal amputation with surrounding soft tissue prominence and likely subcutaneous emphysema within this region suggestive of underlying abscess versus phlegmon in the appropriate clinical setting. Postsurgical changes are also a consideration. For definitive evaluation of osseous infection further evaluation with three-phase nuclear medicine bone scan or MRI may be obtained. MRI/Lower Ext/No Jt/w/o IMPRESSION: Mid fifth metatarsal amputation with distal osseous edema, small subcutaneous focus of air and surrounding inflammatory fluid consistent with soft tissue infection/abscess and early osteomyelitis of the distal metatarsal amputation site in the appropriate clinical setting. Consultations Arlen Laird - podiatry 12/20/17 23:25 Consult: Onc/Wound/stock transfer clerk Routine Comment: Reason for Consult:: L foot partial toe Amp 12/13, Cellulitis Procedures: None Summary of Care Provided: Physical exam on day of discharge: See daily progress note. Hospital course: The patient is a 62 year old F with a hx of DMt2, PVD, nicotine abuse (quit 3 weeks prior), nonhealing wounds, recent LLE 5th digit partial ray amputation on 12/11/[address] Laird (podiatry) for dry gangrene, and anxiety/depression, who presented from Dr. Laird with worsening of erythema on the wound. An Xray demonstrated possible underlying abscess and she was admitted on vanc and cefepime with podiatry on consult. It did appear inflamed and erythematous without diana purulence, she had elevated ESR and CRP, however she had no fever or white count. Wound care was consulted. ID was consulted and recommended continuation of the same abx therapy. MRI was obtained and demonstrated possible infection, abscess, osteomyelitis. Podiatry was unsure if this demonstrated abscess or if it was post op changes such as hematoma or seroma. They planned to take her to surgery. In the OR surgery was cancelled as the foot appeared more dusky. JOANA's were obtained with significantly poor ratios left side worse than the right side (as above). Podiatry did not feel comfortable continuing with any intervention without vascular surgery on board as there was a high risk of necrosis. Vascular is currently unavailable here. We contacted [facility] for transfer and the patient was accepted by Dr. Richard Muniz as well as vascular surgeon Dr. Napier. She was transferred in stable condition with stable vitals at this time, when the bed became available. This patient was seen by Binh Hong PA-C under the supervision of Doctor Christensen. [] Discharge Diet: - - as directed by receiving facility Discharge Activity: - - as directed by receiving facility Home Medications: Medications to take at Discharge Amlodipine [Norvasc] 10 mg PO QHS 12/18/15 Lisinopril [Zestril] 10 mg PO DAILY 12/18/15 busPIRone [Buspar] 5 mg PO TID 12/18/15 Sertraline HCl [Zoloft] 25 mg PO DINNER 10/11/16 Simethicone 125 mg PO TID PRN PRN 10/11/16 Clopidogrel Bisulfate [Clopidogrel] 75 mg PO DAILY 12/10/17 Mometasone Furoate [Elocon] 50 gm TP DAILY 12/10/17 Acetaminophen [Tylenol Tablet] 650 mg PO Q6H PRN PRN tablet 12/14/17 Glucerna Shake 120 ml PO TIDCM liquid 12/14/17 Magnesium Hydroxide [Milk Of Magnesia] 30 ml PO DAILY PRN PRN udc 12/14/17 Triamcinolone 0.5% Cream [Kenalog] 1 applic TOPICAL DAILY tube 12/14/17 DiphenhydrAMINE [Benadryl] 25 mg PO TID PRN PRN 12/20/17 Insulin Glargine,Hum.rec.anlog [Lantus] 10 unit SQ QHS 12/20/17 Insulin Lispro [Humalog KwikPen] See Protocol SQ 0600,1600 12/20/17 Nutritional Supplement [Rene - ORANGE FLAVOR] 1 packet PO BIDCM 12/20/17 Oxycodone [Oxyir] 5 - 10 mg PO Q4H PRN PRN 12/20/17 Primary Care Physician: Diana Jimenez III, MD [Primary Care Provider] - Please follow up with your Primary Care Physician in: as directed Please Follow Up With: Michael Laird DPM When: as directed Disposition: Acute [facility] Minutes spent on discharge:: 40 Patient Condition:: Stable Medical Necessity - Tobacco Use Smoking Status: Former smoker Tobacco Use: Cigarettes Meaningful Use Info Meaningful Use Diagnoses (Choose all that apply): None applicable <AmparoMike E - Last Filed: 12/22/17 11:03> Discharge Date and Diagnosis - Secondary Discharge Diagnosis Chronic Problems (Last Updated 12/20/17 @ 17:32 by Jose Neely DO) Chronic ulcer of buttock (Chronic) Abscess of buttock (Chronic) Diabetes mellitus (Chronic) Hypertension (Chronic) History of CVA (cerebrovascular accident) (Chronic) Caries (Chronic) Tobacco abuse (Chronic) Tobacco abuse counseling (Chronic) Carotid arterial disease (Chronic) Hyperlipidemia (Chronic) Hospital Course and Treatment Imaging Results: Bilateral arterial duplex: Impression: Based upon the findings of this resting noninvasive lower extremity arterial study, there is evidence of mild to moderate arterial occlusive disease in the right lower extremity, and moderate to severe arterial occlusive disease in the left lower extremity. Biphasic waveforms are noted at ankle level on the right. Monophasic waveforms are noted at ankle level on the left. The resting right ankle-brachial index is mildly to moderately diminished. The resting left ankle-brachial index is moderately diminished. The right digital-brachial index is mildly to moderately diminished, consistent with mild to moderate diminution of arterial flow at digital level on the right. The left digital-brachial index is moderately to severely diminished, consistent with moderate to severe impairment of arterial flow at digital level in the left lower extremity. Consultations 12/20/17 23:25 Consult: Onc/Wound/stock transfer clerk Routine Comment: Reason for Consult:: L foot partial toe Amp 12/13, Cellulitis Summary of Care Provided: Hospitalist note: Discharge summary above reviewed and I agree with above discharge and transfer plan. Patient was admitted for increased pain, erythema and swelling of the left foot 2 days after she had partial fifth ray amputation of the left foot for gangrene of the left fifth toe that was done on December 11, 2014. She was found to have acute cellulitis of the left foot without evidence of deep tissue infection, abscess or osteomyelitis. X-ray of the left foot revealed soft tissue swelling and questionable fluid collection which could be due to abscess. MRI of the left foot performed and reported as distal osseous edema, small subcutaneous focus of inflammatory changes and fluids which could be due to abscess or airway osteomyelitis. Podiatry medicine who performed the surgery before admission consulted and after revision of the MRI with radiology, foot abscess and osteomyelitis is less likely. Patient was treated with IV cefepime and vancomycin. Her vital signs are stable and she was afebrile on admission and she has no leukocytosis. There was a concern that she may have peripheral arterial disease for which ankle-brachial index performed and was diminished in both legs but more on the left lower extremity. After discussion with podiatry medicine, decision was made that patient needs to be evaluated by vascular surgery and because we have no vascular surgery, this week, we decided to transfer the patient to a tertiary care center for further evaluation regarding the referral arterial disease. Arterial Doppler of the bilateral lower extremities revealed mild to moderate arterial occlusive disease on the right lower extremity and moderate to severe arterial occlusive disease on the left lower extremity. Patient was transferred to [facility][1] in a stable medical condition for evaluation by vascular surgery. This note was generated with [employer] dictation software. It may contain incorrect words, spelling, and punctuation that were not noted in checking the note before signing. Minutes spent on discharge:: 34 Patient Condition:: Stable Meaningful Use Info Meaningful Use Diagnoses (Choose all that apply): None applicable Code Visit Inpatient E&M: 72772 Disch Hosp
--- NOTE | 2017-12-21 17:31 | DS.PCM_ITS ---
<Binh Hong - Last Filed: 12/21/17 17:20> Discharge Date and Diagnosis Date of Admission: 12/20/17 Date of Discharge: 12/21/17 - Primary Discharge Diagnosis Active and Suspected Problems (Last Updated 12/20/17 @ 17:32 by Jose Neely DO ) Cellulitis of left foot (Acute) Nonhealing Left foot wound s/p left 5th digit partial ray amputation 12/11/17 BL PAD with diminished ABIs DMt2 Nicotine abuse HTN Suspected CKDIII - Secondary Discharge Diagnosis Chronic Problems (Last Updated 12/20/17 @ 17:32 by Jose Neely DO) Chronic ulcer of buttock (Chronic) Abscess of buttock (Chronic) Diabetes mellitus (Chronic) Hypertension (Chronic) History of CVA (cerebrovascular accident) (Chronic) Caries (Chronic) Tobacco abuse (Chronic) Tobacco abuse counseling (Chronic) Carotid arterial disease (Chronic) Hyperlipidemia (Chronic) Hospital Course and Treatment Imaging Results: JOANA Report RIGHT: PT 0.72, DP 0.80, Digit 0.51 LEFT: PT 0.53, DP 0.49, Digit 0.21 RAD/Foot min 3 Views IMPRESSION: Mid fifth metatarsal amputation with surrounding soft tissue prominence and likely subcutaneous emphysema within this region suggestive of underlying abscess versus phlegmon in the appropriate clinical setting. Postsurgical changes are also a consideration. For definitive evaluation of osseous infection further evaluation with three-phase nuclear medicine bone scan or MRI may be obtained. MRI/Lower Ext/No Jt/w/o IMPRESSION: Mid fifth metatarsal amputation with distal osseous edema, small subcutaneous focus of air and surrounding inflammatory fluid consistent with soft tissue infection/abscess and early osteomyelitis of the distal metatarsal amputation site in the appropriate clinical setting. Consultations Arlen Laird - podiatry 12/20/17 23:25 Consult: Onc/Wound/bin packer Routine Comment: Reason for Consult:: L foot partial toe Amp 12/13, Cellulitis Procedures: None Summary of Care Provided: Physical exam on day of discharge: See daily progress note. Hospital course: The patient is a 62 year old F with a hx of DMt2, PVD, nicotine abuse (quit 3 weeks prior), nonhealing wounds, recent LLE 5th digit partial ray amputation on 12/11/[address] Laird (podiatry) for dry gangrene, and anxiety/depression, who presented from Dr. Laird with worsening of erythema on the wound. An Xray demonstrated possible underlying abscess and she was admitted on vanc and cefepime with podiatry on consult. It did appear inflamed and erythematous without diana purulence, she had elevated ESR and CRP, however she had no fever or white count. Wound care was consulted. ID was consulted and recommended continuation of the same abx therapy. MRI was obtained and demonstrated possible infection, abscess, osteomyelitis. Podiatry was unsure if this demonstrated abscess or if it was post op changes such as hematoma or seroma. They planned to take her to surgery. In the OR surgery was cancelled as the foot appeared more dusky. JOANA's were obtained with significantly poor ratios left side worse than the right side (as above). Podiatry did not feel comfortable continuing with any intervention without vascular surgery on board as there was a high risk of necrosis. Vascular is currently unavailable here. We contacted [facility] for transfer and the patient was accepted by Dr. Richard Muniz as well as vascular surgeon Dr. Napier. She was transferred in stable condition with stable vitals at this time, when the bed became available. This patient was seen by Binh Hong PA-C under the supervision of Doctor Christensen. [] Discharge Diet: - - as directed by receiving facility Discharge Activity: - - as directed by receiving facility Home Medications: Medications to take at Discharge Amlodipine [Norvasc] 10 mg PO QHS 12/18/15 Lisinopril [Zestril] 10 mg PO DAILY 12/18/15 busPIRone [Buspar] 5 mg PO TID 12/18/15 Sertraline HCl [Zoloft] 25 mg PO DINNER 10/11/16 Simethicone 125 mg PO TID PRN PRN 10/11/16 Clopidogrel Bisulfate [Clopidogrel] 75 mg PO DAILY 12/10/17 Mometasone Furoate [Elocon] 50 gm TP DAILY 12/10/17 Acetaminophen [Tylenol Tablet] 650 mg PO Q6H PRN PRN tablet 12/14/17 Glucerna Shake 120 ml PO TIDCM liquid 12/14/17 Magnesium Hydroxide [Milk Of Magnesia] 30 ml PO DAILY PRN PRN udc 12/14/17 Triamcinolone 0.5% Cream [Kenalog] 1 applic TOPICAL DAILY tube 12/14/17 DiphenhydrAMINE [Benadryl] 25 mg PO TID PRN PRN 12/20/17 Insulin Glargine,Hum.rec.anlog [Lantus] 10 unit SQ QHS 12/20/17 Insulin Lispro [Humalog KwikPen] See Protocol SQ 0600,1600 12/20/17 Nutritional Supplement [Rene - ORANGE FLAVOR] 1 packet PO BIDCM 12/20/17 Oxycodone [Oxyir] 5 - 10 mg PO Q4H PRN PRN 12/20/17 Primary Care Physician: Diana Jimenez III, MD [Primary Care Provider] - Please follow up with your Primary Care Physician in: as directed Please Follow Up With: Michael Laird DPM When: as directed Disposition: Acute [facility] Minutes spent on discharge:: 40 Patient Condition:: Stable Medical Necessity - Tobacco Use Smoking Status: Former smoker Tobacco Use: Cigarettes Meaningful Use Info Meaningful Use Diagnoses (Choose all that apply): None applicable <AmparoMike E - Last Filed: 12/22/17 11:03> Discharge Date and Diagnosis - Secondary Discharge Diagnosis Chronic Problems (Last Updated 12/20/17 @ 17:32 by Jose Neely DO) Chronic ulcer of buttock (Chronic) Abscess of buttock (Chronic) Diabetes mellitus (Chronic) Hypertension (Chronic) History of CVA (cerebrovascular accident) (Chronic) Caries (Chronic) Tobacco abuse (Chronic) Tobacco abuse counseling (Chronic) Carotid arterial disease (Chronic) Hyperlipidemia (Chronic) Hospital Course and Treatment Imaging Results: Bilateral arterial duplex: Impression: Based upon the findings of this resting noninvasive lower extremity arterial study, there is evidence of mild to moderate arterial occlusive disease in the right lower extremity, and moderate to severe arterial occlusive disease in the left lower extremity. Biphasic waveforms are noted at ankle level on the right. Monophasic waveforms are noted at ankle level on the left. The resting right ankle-brachial index is mildly to moderately diminished. The resting left ankle-brachial index is moderately diminished. The right digital-brachial index is mildly to moderately diminished, consistent with mild to moderate diminution of arterial flow at digital level on the right. The left digital-brachial index is moderately to severely diminished, consistent with moderate to severe impairment of arterial flow at digital level in the left lower extremity. Consultations 12/20/17 23:25 Consult: Onc/Wound/bin packer Routine Comment: Reason for Consult:: L foot partial toe Amp 12/13, Cellulitis Summary of Care Provided: Hospitalist note: Discharge summary above reviewed and I agree with above discharge and transfer plan. Patient was admitted for increased pain, erythema and swelling of the left foot 2 days after she had partial fifth ray amputation of the left foot for gangrene of the left fifth toe that was done on December 11, 2014. She was found to have acute cellulitis of the left foot without evidence of deep tissue infection, abscess or osteomyelitis. X-ray of the left foot revealed soft tissue swelling and questionable fluid collection which could be due to abscess. MRI of the left foot performed and reported as distal osseous edema, small subcutaneous focus of inflammatory changes and fluids which could be due to abscess or airway osteomyelitis. Podiatry medicine who performed the surgery before admission consulted and after revision of the MRI with radiology , foot abscess and osteomyelitis is less likely. Patient was treated with IV cefepime and vancomycin. Her vital signs are stable and she was afebrile on admission and she has no leukocytosis. There was a concern that she may have peripheral arterial disease for which ankle-brachial index performed and was diminished in both legs but more on the left lower extremity. After discussion with podiatry medicine, decision was made that patient needs to be evaluated by vascular surgery and because we have no vascular surgery, this week, we decided to transfer the patient to a tertiary care center for further evaluation regarding the referral arterial disease. Arterial Doppler of the bilateral lower extremities revealed mild to moderate arterial occlusive disease on the right lower extremity and moderate to severe arterial occlusive disease on the left lower extremity. Patient was transferred to [facility] in a stable medical condition for evaluation by vascular surgery. This note was generated with [employer] dictation software. It may contain incorrect words, spelling, and punctuation that were not noted in checking the note before signing. Minutes spent on discharge:: 34 Patient Condition:: Stable Meaningful Use Info Meaningful Use Diagnoses (Choose all that apply): None applicable Code Visit Inpatient E&M: 68722 Disch Hosp
--- NOTE | 2017-12-21 19:04 | NURSING ---
REPORT CALLED TO MARILOU AT [facility] FOR TRANSFER.
--- NOTE | 2017-12-22 07:49 | LEAS ---
Arterial Study - Arterial Study Arterial Study: This is a 62-year-old female who presented with a chronic nonhealing wound to the left lower extremity. The patient has a history of severe peripheral arterial occlusive disease. The patient is brought to the noninvasive vascular laboratory at this time for the purpose of bilateral noninvasive lower extremity arterial assessment. Doppler signal assessment was used to evaluate the pulses at ankle level bilaterally. On the right, the posterior tibial and dorsalis pedis pulses were biphasic. On the left, the posterior tibial and dorsalis pedis pulses were monophasic. Segmental limb pressures were obtained bilaterally. The right ankle pressure, as determined by posterior tibial pulse, was measured at 108 mmHg. The right ankle pressure, as determined by dorsalis pedis pulse, was measured at 121 mmHg. The right digital pressure was measured at 77 mmHg. The left ankle pressure, as determined by posterior tibial pulse, was measured at 80 mmHg. The left ankle pressure, as determined by dorsalis pedis pulse, was measured at 74 mmHg. The left digital pressure was measured at 31 mmHg. Pulse-volume recordings were obtained bilaterally. Waveform amplitudes appeared to be normal at ankle level bilaterally. Waveform amplitudes were severely diminished bilaterally at digital level. Resting ankle-brachial indices were calculated bilaterally. The resting right ankle-brachial index was calculated to be 0.80. The resting left ankle-brachial index was calculated to be 0.53. Digital-brachial indices were calculated bilaterally. The right digital-brachial index was calculated to be 0.51. The left digital-brachial index was calculated to be 0.21. Impression: Based upon the findings of this resting noninvasive lower extremity arterial study, there is evidence of mild to moderate arterial occlusive disease in the right lower extremity, and moderate to severe arterial occlusive disease in the left lower extremity. Biphasic waveforms are noted at ankle level on the right. Monophasic waveforms are noted at ankle level on the left. The resting right ankle-brachial index is mildly to moderately diminished. The resting left ankle-brachial index is moderately diminished. The right digital-brachial index is mildly to moderately diminished, consistent with mild to moderate diminution of arterial flow at digital level on the right. The left digital-brachial index is moderately to severely diminished, consistent with moderate to severe impairment of arterial flow at digital level in the left lower extremity.
--- NOTE | 2017-12-22 07:56 | LEAS_ITS ---
Arterial Study - Arterial Study Arterial Study: This is a 62-year-old female who presented with a chronic nonhealing wound to the left lower extremity. The patient has a history of severe peripheral arterial occlusive disease. The patient is brought to the noninvasive vascular laboratory at this time for the purpose of bilateral noninvasive lower extremity arterial assessment. Doppler signal assessment was used to evaluate the pulses at ankle level bilaterally. On the right, the posterior tibial and dorsalis pedis pulses were biphasic. On the left, the posterior tibial and dorsalis pedis pulses were monophasic. Segmental limb pressures were obtained bilaterally. The right ankle pressure, as determined by posterior tibial pulse, was measured at 108 mmHg. The right ankle pressure, as determined by dorsalis pedis pulse, was measured at 121 mmHg. The right digital pressure was measured at 77 mmHg. The left ankle pressure, as determined by posterior tibial pulse, was measured at 80 mmHg. The left ankle pressure, as determined by dorsalis pedis pulse, was measured at 74 mmHg. The left digital pressure was measured at 31 mmHg. Pulse-volume recordings were obtained bilaterally. Waveform amplitudes appeared to be normal at ankle level bilaterally. Waveform amplitudes were severely diminished bilaterally at digital level. Resting ankle-brachial indices were calculated bilaterally. The resting right ankle-brachial index was calculated to be 0.80. The resting left ankle- brachial index was calculated to be 0.53. Digital-brachial indices were calculated bilaterally. The right digital- brachial index was calculated to be 0.51. The left digital-brachial index was calculated to be 0.21. Impression: Based upon the findings of this resting noninvasive lower extremity arterial study, there is evidence of mild to moderate arterial occlusive disease in the right lower extremity, and moderate to severe arterial occlusive disease in the left lower extremity. Biphasic waveforms are noted at ankle level on the right. Monophasic waveforms are noted at ankle level on the left. The resting right ankle-brachial index is mildly to moderately diminished. The resting left ankle-brachial index is moderately diminished. The right digital-brachial index is mildly to moderately diminished, consistent with mild to moderate diminution of arterial flow at digital level on the right. The left digital-brachial index is moderately to severely diminished, consistent with moderate to severe impairment of arterial flow at digital level in the left lower extremity.
== END 2017-12-21 19:20 | disposition home or self-care (01) | DRG 383 ==
LOC: MS2 12-21 09:32 → MS3 12-21 15:14
PROVIDERS: Family Provider Family Medicine; PCP Family Medicine; Visit Provider Hospitalist
DX: L03.116 Cellulitis of left lower limb (principal); T81.4XXA Infection following a procedure, initial encounter; L03.317 Cellulitis of buttock; N18.3 Chronic kidney disease, stage 3 (moderate); E11.22 Type 2 diabetes mellitus with diabetic chronic kidney disease; I12.9 Hypertensive chronic kidney disease with stage 1 through stage 4 chronic kidney disease, or unspecified chronic kidney disease; I73.9 Peripheral vascular disease, unspecified; E78.5 Hyperlipidemia, unspecified; F32.9 Major depressive disorder, single episode, unspecified; F41.9 Anxiety disorder, unspecified; J45.909 Unspecified asthma, uncomplicated; L43.9 Lichen planus, unspecified; N76.89 Other specified inflammation of vagina and vulva; M54.9 Dorsalgia, unspecified; G89.29 Other chronic pain; I77.89 Other specified disorders of arteries and arterioles; Z89.422 Acquired absence of other left toe(s); Z79.4 Long term (current) use of insulin; Z79.01 Long term (current) use of anticoagulants; Z79.899 Other long term (current) drug therapy; Z86.73 Personal history of transient ischemic attack (TIA), and cerebral infarction without residual deficits; Z87.891 Personal history of nicotine dependence; Z53.8 Procedure and treatment not carried out for other reasons; Z88.0 Allergy status to penicillin; I25.10 Atherosclerotic heart disease of native coronary artery without angina pectoris; I96 Gangrene, not elsewhere classified; Z89.421 Acquired absence of other right toe(s)
CPT/HCPCS: 36415; 73630; 73718; 80048; 82962; 85025; 85027; 85652; 86140; 87640; 93922; 93970; 97802; A4216

== ENCOUNTER 2018-05-08 01:13 | Inpatient (IN) | payer MEDICAID, SELFPAY ==
[2018-05-08] VITALS (22 sets, daily range): BP systolic 102–148; BP diastolic 59–79; PULSE 85–119; RESP 18–30; TEMP 36.9–37.2; O2SAT 89–99; BMI 29.9; BMI 28.5
--- NOTE | 2018-05-08 01:17 | ED.RN ---
RN CALLED FOR EKG, PULLED OLD EKGS FOR
--- NOTE | 2018-05-08 01:32 | EKG12_ITS ---
Test Reason : SOB Blood Pressure : / mmHG Vent. Rate : 110 BPM Atrial Rate : 110 BPM P-R Int : 118 ms QRS Dur : 100 ms QT Int : 370 ms P-R-T Axes : 073 078 089 degrees QTc Int : 500 ms Sinus tachycardia Cannot rule out Inferior infarct , age undetermined Anteroseptal infarct , age undetermined ST & T wave abnormality, consider lateral ischemia Abnormal ECG Confirmed by GENA GARCIA, JAMIE ([id number]), index editor RAYMUNDO PATEL ([id number]) on 05/11/2018 10:48:00 AM Referred By: Confirmed By:JAMIE AVERY MD
--- NOTE | 2018-05-08 01:32 | RAD_ITS ---
STUDY: X-RAY CHEST REASON FOR EXAM: Female, 62 years old. Chest pain and SOB for 2 days TECHNIQUE: Single frontal view of the chest. COMPARISON: 09/22/2016 FINDINGS: Central vascular congestion. Chronic interstitial lung changes. There is no demonstrated pleural abnormality. Normal size heart. Normal mediastinum and tom. Normal visualized pulmonary arteries. Normal visualized aortic arch and descending thoracic aorta. There are diffuse degenerative changes of the visualized thoracic spine. Normal visualized ribs, clavicles, and shoulders. There is no demonstrated abnormality of the visualized soft tissue structures of the upper abdomen. RAD/Chest 1 View (Portable) IMPRESSION: Central vascular congestion. Chronic interstitial lung changes. Electronically Signed: Jacob Alicea MD at 2:15 EST Tel , Service support ,
--- NOTE | 2018-05-08 01:36 | ED.DCSUM_ITS ---
- ER Visit Summary Date of Service: 05/08/18 Chief Complaint: Chest pain, shortness of breath History of Present Illness: The patient is a 62 F presenting with chest pain, shortness of breath. This started 2 days ago. Pain has been intermittent. She has midsternal chest pressure which she states is 8 out of 10. It is associated nausea, diaphoresis, shortness of breath. She states she has been too lightheaded to ambulate. She has history of hypertension, diabetes, hypercholesterolemia, early family history of heart disease, and smoking. She had left small toe amputation 2 months ago, otherwise no other PE/DVT risk factors. Physical Examination: Vitals are stable. Patient is afebrile. Alert no acute distress. HEENT exam is unremarkable. Neck is supple. Lungs are diminished bilaterally. Heart is regular and tachycardic Abdomen is soft nontender nondistended. Extremities are unremarkable. Skin is warm and dry. No focal neurologic deficit. Remainder of exam is unremarkable. Emergency Department Course and Treatment: EKG is sinus tachycardia rate of [address] depression and T wave inversion V5 and V6. Patient was given aspirin, morphine, Zofran. Chest x-ray shows central vascular congestion. Chronic interstitial lung changes. CBC normal except hemoglobin 11.7. Chemistries normal except for BUN of 19, creatinine 1.21, glucose 137. Troponin is indeterminate at 0.129. D-dimer elevated at 0.59. CTA chest was obtained and shows no pulmonary embolus. Bilateral pleural effusions. Diffuse interstitial edema. On reevaluation, patient is chest pain-free. Will discuss with the hospitalist for admission. Disposition: Admission Impression: Chest pain, ACS This note was generated with [employer] dictation software. It may contain incorrect words, spelling, and punctuation that were not noted in review of the chart prior to signing ED Disposition - Plan for ED Patient: Chief Complaint: Chest Pain Referrals: Evens Jimenez III, MD [Primary Care Provider] -
[2018-05-08] MEDS: Aspirin 81 MG TAB.CHEW 324 MG PO (01:38)
[2018-05-08] MEDS: Morphine 4 MG/ML Syringe IV (01:41)
[2018-05-08] MEDS: Ondansetron 4 MG/2 ML Vial IV (01:41)
[2018-05-08 01:46] LABS: Absolute Lymphocyte Count 2.93 X10^3/ul (0.83-4.51); Absolute Neutrophil Count 6.1 X10^3/uL (2.0-7.7); Basophil# 0.05 X10^3/uL; Basophil% 0.5 % (0-1); Eosinophil# 0.74 X10^3/uL; Hematocrit 35.8 % (37-47); Hemoglobin 11.7 g/dl (12.0-15.0); Lymphocyte # 2.93 X10^3/ul (4.0); Lymphocyte % 27.7 % (19-41); Mean Corp Hgb Conc 32.7 g/gl (32-36); Mean Corpuscular Volume 85.6 fL (81-99); Monocyte# 0.75 X10^3/uL; Monocyte% 7.1 % (0-10); Neutrophil # 6.09 X10^3/uL (2.7-7.7); Neutrophil % 57.6 % (47-70); Platelet Count 413 K/mm3 (150-450); RBC Distribution Width CV 14.5 % (11.6-14.6); RBC Distribution Width SD 45.5 fl (35.1-43.9); Red Blood Count 4.18 M/mm3 (4.2-5.4); White Blood Count 10.6 K/mm3 (4.4-11.0)
[2018-05-08 01:47] LABS: POSITIVE COUNT NO; POSITIVE DIFFERENTIAL NO; POSITIVE MORPHOLOGY NO
[2018-05-08 01:57] LABS: D-Dimer Quantitative (DVT/PE) 0.59 FEU/ug/m (0.27-0.49)
[2018-05-08 02:01] LABS: Anion Gap 6 (5-15); BUN 19 mg/dL (7-18); BUN/Creat Ratio 15.7 RATIO (10-20); Calcium,Total 8.7 mg/dL (8.5-10.1); Chloride 107 mmol/L (98-107); Creatinine, Serum 1.21 mg/dL (0.55-1.02); EST Glomerular Filtration Rate 48 mL/min (>60); Est Glom Filt Rate - Afr Amer 58 mL/min (>60); Estimated Creatinine Clearance 34.63 ml/min; Glucose 137 mg/dL (74-106); Potassium 3.7 mmol/L (3.5-5.1); Sodium Level 140 mmol/L (136-145)
--- NOTE | 2018-05-08 02:02 | CT_ITS ---
STUDY: CTA CHEST REASON FOR EXAM: Female, 62 years old. Short of breath and elevated d-dimer RADIATION DOSAGE (If Supplied By Facility): CTDIvol = ( 8.88 ) mGy, DLP = ( 436.75 ) mGycm TECHNIQUE: The examination was performed with the intravenous administration of 100 ml of Isovue 300 contrast material. Post-processing of the angiographic images was performed, with multiplanar reformation and 3D reconstruction. Individualized dose optimization techniques were used for this CT. COMPARISON: None. FINDINGS: Normal enhancement of the main pulmonary artery and right and left pulmonary arteries. Normal enhancement of the bilateral peripheral pulmonary arteries. There is no demonstrated pulmonary embolism. Normal thoracic aorta and visualized great vessels. There is no demonstrated aortic dissection. Normal heart and pericardium. Normal mediastinum. Normal hilar regions. Normal visualized trachea and bronchi. Diffuse interstitial edema. Lingular atelectasis. Bilateral pleural effusions. Normal chest wall structures. There are degenerative changes of thoracic spine. Right renal atrophy. CT/CTA Chest W/WO Contrast IMPRESSION: No pulmonary embolus. Bilateral pleural effusions. Diffuse interstitial edema. Electronically Signed: Jacob Alicea MD at 3:21 EST Tel , Service support ,
[2018-05-08] MEDS: 0.9% Normal Saline 1,000 ML 999 ML IV (02:27)
[2018-05-08] MEDS: Nitroglycerin Oint 1 INCH PACKET TRANSDERM. ×3 (03:48→17:32)
--- NOTE | 2018-05-08 03:50 | HP.PCM_ITS ---
Problem List (1) Chest pain Status: Acute Qualifiers: Chest pain type: chest pain due to myocardial ischemia Ischemic chest pain type: unspecified angina pectoris type Qualified Code(s): I25.9 - Chronic ischemic heart disease, unspecified (2) Diabetes mellitus Status: Chronic Qualifiers: (3) Hypertension Status: Chronic Qualifiers: (4) Caries Status: Chronic (5) Tobacco abuse Status: Chronic (6) Carotid arterial disease Status: Chronic (7) Hyperlipidemia Status: Chronic (8) Nicotine dependence Status: Chronic History of Present Illness Date of Admission: 05/08/18 Chief Complaint: chest pain The patient is a 62 year old female with a history of diabetes, COPD presents to the ER with ongoing 8 substernal non-radiating chest pain. Onset of pain began 2 days ago and continues and is currently 10 in the ER after initial treatment. She is short of breath with this as well. The patient has known lung disease and initial D-Dimer was elevated therefore a CTA chest was done which revealed pulmonary effusions but no infiltrate or PE. The initial Troponin is 0.129 and there are no ST elevations. She is recently status post toe amputations x 2 on left foot and stayed in a prison for rehab which she found to be stressful. She will be admitted to PCU and cardiology consult obtained. Past Medical History Past Medical History (Chronic Problems): Chronic Problems (Last Updated 12/20/17 @ 17:32 by Jose Neely DO) Chronic ulcer of buttock (Chronic) Abscess of buttock (Chronic) Diabetes mellitus (Chronic) Hypertension (Chronic) History of CVA (cerebrovascular accident) (Chronic) Caries (Chronic) Tobacco abuse (Chronic) Tobacco abuse counseling (Chronic) Carotid arterial disease (Chronic) Hyperlipidemia (Chronic) Nicotine dependence (Chronic) Medical History: Medical History (Last Updated 12/20/17 @ 17:32 by Jose Neely DO) PVD (peripheral vascular disease) (Acute) I73.9 Carotid arterial disease (Chronic) I77.9 Hyperlipidemia (Chronic) E78.5 Nicotine dependence (Acute) F17.200 Cellulitis and abscess of buttock (Acute) 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 Asthma J45.909 CVA (cerebral vascular accident) I63.9 Chronic back pain M54.9, G89.29 Depression F32.9 Diabetes E11.9 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 Z89.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 HTN (hypertension) I10 Allergies Penicillins Allergy (Severe, Verified 05/08/18 01:17) Swelling tolerated keflex in past with no issue Home Medications: Ambulatory Orders Medication Instructions Recorded Amlodipine [Norvasc] 10 mg PO QHS 12/18/15 Lisinopril [Zestril] 10 mg PO DAILY 12/18/15 busPIRone [Buspar] 5 mg PO TID 12/18/15 Mometasone Furoate [Elocon] 50 gm TP DAILY 12/10/17 Acetaminophen [Tylenol Tablet] 650 mg PO Q6H PRN PRN tablet 12/14/17 DiphenhydrAMINE [Benadryl] 25 mg PO TID PRN PRN 12/20/17 Insulin Glargine,Hum.rec.anlog 10 unit SQ QHS 12/20/17 [Lantus] Insulin Lispro [Humalog KwikPen] See Protocol SQ 0600,1600 12/20/17 Atorvastatin Calcium [Lipitor] 40 mg PO QHS 05/08/18 Sumatriptan Succinate [Imitrex] 50 mg PO DAILY PRN 05/08/18 Surgical History: Surgical History (Last Reviewed 12/20/17 @ 17:32 by Jose Neely DO) History of esophagogastroduodenoscopy (EGD) Z98.890 S/P carotid endarterectomy Z98.890 S/P colonoscopy Z98.890 Surgical History: - - Patient has undergone right carotid endarterectomy by Dr. Siva Jimenez approximately 7 years ago. She is a Ab0. Smoking Status: Current every day smoker - *Family History Maternal Family History: Family History (Last Updated 11/08/17 @ 13:38 by Melva Ashby) Mother No problems noted. History Items: Heart Disease, - - Patient's father in his 40s from myocardial infarction. Patient's mother in her 40s from a cerebrovascular accident. Review of Systems Constitutional: Denies: Chills, Fever, Weight Change HEENT: Denies: Head Aches, Sinus Congestion, Sinus Drainage Cardiovascular: Reports: Chest Pain. Denies: Palpitations Respiratory: Reports: Shortness of breath at rest. Denies: Cough, Sputum production Gastrointestinal: Denies: Abdominal Pain, Nausea, Vomiting Genitourinary: Denies: Dysuria Musculoskeletal: Denies: Joint Pain, Joint Tenderness Skin: Denies: Rash, Wounds Neurological: Denies: Numbness, Tingling, Focal weakness Psychiatric: Denies: Anxiety, Depression, Homicidal Ideations, Suicidal Ideations Hematologic/ Lymphatic: Denies: Easy Bruising, Easy Bleeding VTE Information - Inpt Only VTE Present on Admission: No VTE Mechan Device Prophylaxis: None VTE Pharm Prophylaxis ordered?: Yes Patient Problems: Active and Suspected Problems (Last Updated 12/20/17 @ 17:32 by Jose Neely DO) Chest pain (Acute) - Physical Exam General: Alert, Oriented x3, Cooperative HEENT: Atraumatic, Normocephalic Neck: Supple Lungs: Clear to auscultation, Normal air movement, No rhonchi, No wheeze, No rales Cardiovascular: Regular rate, Regular Rhythm, Normal S1, Normal S2, No murmurs, Tachycardic Abdomen: Bowel Sounds Present, Soft, Non Tender Extremities: No edema Skin: No rashes Musculoskeletal: No Tenderness to Palpation of Joints or Extremities Neurological: Neuro grossly intact Psych/Mental Status: Normal Affect, Appropriate Vital Signs Temp Pulse Resp BP Pulse Ox 98.5 F 100 20 H 146/79 H 91 05/08/18 01:14 05/08/18 03:17 05/08/18 03:17 05/08/18 03:17 05/08/18 03:17 Oxygen Flow Rate (L/min) 4 Oxygen Delivery Method Nasal Cannula Weight: 153 lb 10.595 oz Body Mass Index (BMI) 29.9 Laboratory Tests Past 24 Hrs 05/08/18 05/08/18 05/08/18 01:35 01:35 01:35 WBC 10.6 RBC 4.18 L Hgb 11.7 L Hct 35.8 L MCV 85.6 MCH 28.0 MCHC 32.7 RDW 14.5 RDW Differential 45.5 H Plt Count 413 MPV 9.0 Immature Gran % (Auto) 0.100 Neut % (Auto) 57.6 Lymph % (Auto) 27.7 [place] % (Auto) 7.1 Eos % (Auto) 7.0 H Baso % (Auto) 0.5 Absolute Neuts (auto) 6.1 Absolute Lymphs (auto) 2.93 Total Counted Not Reportable D-Dimer Quant (PE/DVT) 0.59 H* Sodium 140 Potassium 3.7 Chloride 107 Carbon Dioxide 27.0 Anion Gap 6 BUN 19 H Creatinine 1.21 H Estim Creat Clear Calc 34.63 Est GFR (MDRD) Af Amer 58 L Est GFR (MDRD) Non-Af 48 L BUN/Creatinine Ratio 15.7 Glucose 137 H Calcium 8.7 Troponin I 0.129 H Assessment/Plan All Active Problems (Last Updated 12/20/17 @ 17:32 by Jose Neely DO) Abscess of right buttock (Acute) 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 (Acute) Gangrene (Acute) Cellulitis of left foot (Acute) Chest pain (Acute) PVD (peripheral vascular disease) (Acute) Cellulitis and abscess of buttock (Acute) 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 Chest Pain/ NSTEMI- full admission to PCU, consult DR. Good (spoke with on phone). Cycle cardiac marker, Morphine, nitro, oxygen and aspirin per routine. Make NPO pending heart catheterization. 2. Pleural effusions- Lasix 40mg IV x 1 3. Diabates- q hr blood checks while NPO with SSI 4. Tobacco- abuse, cessation encouraged 5. DVT prophylaxis - LMWH pr routine 6. Hypertension, maintain on home medications Code Visit Inpatient E&M: 57012 Init Hosp L3
--- NOTE | 2018-05-08 04:15 | EKG12_ITS ---
Test Reason : CP Blood Pressure : / mmHG Vent. Rate : 093 BPM Atrial Rate : 093 BPM P-R Int : 122 ms QRS Dur : 108 ms QT Int : 376 ms P-R-T Axes : 067 060 134 degrees QTc Int : 467 ms Normal sinus rhythm Possible Left atrial enlargement Septal infarct , age undetermined Inferior infarct , age undetermined ST & T wave abnormality, consider anterolateral ischemia Abnormal ECG Confirmed by GENA GARCIA, JAMIE ([id number]), map editor RAYMUNDO PATEL ([id number]) on 05/11/2018 11:05:17 AM Referred By: KATELIN Confirmed By:JAMIE AVERY MD
[2018-05-08] MEDS: Furosemide 40 MG/4 ML Vial IV ×3 (05:49→17:32)
[2018-05-08 06:14] LABS: Hematocrit 33.1 % (37-47); Hemoglobin 10.9 g/dl (12.0-15.0); Mean Corp Hgb Conc 32.9 g/gl (32-36); Mean Corpuscular Hgb 28.9 pg (27.0-32.0); Mean Corpuscular Volume 87.8 fL (81-99); Mean Platelet Vol. 9.6 fl (6.2-12.0); Platelet Count 391 K/mm3 (150-450); RBC Distribution Width CV 14.6 % (11.6-14.6); RBC Distribution Width SD 45.7 fl (35.1-43.9); Red Blood Count 3.77 M/mm3 (4.2-5.4); White Blood Count 9.8 K/mm3 (4.4-11.0)
[2018-05-08 06:17] LABS: Scan Indicated on CBC? Y/N NO
[2018-05-08 06:23] LABS: International Normalized Ratio 1.1; Prothrombin Time (Protime)PT. 14.5 SECONDS (11.7-14.9)
[2018-05-08 06:47] LABS: ALB/GLOB Ratio 0.8 RATIO (0.9-2.4); AST(SGOT) 26 U/L (15-37); Alanine Aminotransfer ALT/SGPT 32 U/L (13-56); Alkaline Phosphatase 118 U/L (45-117); Anion Gap 9 (5-15); BUN 18 mg/dL (7-18); BUN/Creat Ratio 15.9 RATIO (10-20); Calcium,Total 8.2 mg/dL (8.5-10.1); Chloride 109 mmol/L (98-107); Cholesterol 174 mg/dL (200); Creatinine, Serum 1.13 mg/dL (0.55-1.02); EST Glomerular Filtration Rate 52 mL/min (>60); Est Glom Filt Rate - Afr Amer 63 mL/min (>60); Estimated Creatinine Clearance 37.08 ml/min; Globulin 3.9 g/dL (2.2-4.2); Glucose 158 mg/dL (74-106); High Density Lipoprotein 47 mg/dL; Protein, Total 6.9 g/dL (6.4-8.2); Sodium Level 141 mmol/L (136-145); Triglycerides 110 mg/dL; Very Low Density Lipoprotein 22 mg/dL (5-40)
[2018-05-08 06:56] LABS: Bedside Glucose 170 mg/dL (70-110)
--- NOTE | 2018-05-08 07:06 | ECHOD_ITS ---
Reason For Study: CHF Procedure This was a 2D Doppler, Color Flow transthoracic echocardiogram. Exam performed portable in patient room. Left Ventricle Normal LV size. The estimated ejection fraction is 37 %. Moderate segmental systolic dysfunction (see wall motion). Stage 3 diastolic dysfunction. Mid-Inferior: Severely Hypokinetic. Infero-Basal: Akinetic. Basal inferoseptal: Akinetic. Septal Normal : Akinetic. Anterio-Basal: Normal. Lateral- Basal: Normal. Mid-Lateral : Normal. The rest of the wall segments are hypokinetic. Right Ventricle Normal RV size. Normal systolic function. Atria The left atrium is mildly enlarged. Normal right atrium. Mitral Valve Normal mitral valve. Mild-Moderate (1-2+) eccentric mitral valve insufficiency. Tricuspid Valve Normal tricuspid valve. Mild to moderate (1-2+) eccentric tricuspid valve insufficiency. Pulmonary artery systolic pressure is 44 mmHg. Mild pulmonary hypertension. Aortic Valve Trisinus/trileaflet aortic valve. Mild focal aortic valve calcification. Trivial eccentric aortic valve insufficiency. Pulmonic Valve Normal pulmonic valve. Great Vessels Normal aortic root. The pulmonary artery is normal size. Inferior vena cava collapse with respiration. Pericardium/Pleural No pericardial effusion. MMode/2D Measurements & Calculations LVIDd: 5.5 cm IVSd: 1.2 cm Ao root diam: 2.5 cm LVIDs: 4.5 cm LVPWd: 1.0 cm RVDd: 3.8 cm FS: 18.5 % LAV(MOD-bp): 65.1 ml LA A4 area: 20.5 cm2 LA dimension(2D): 4.4 cm LAV(MOD-bp) Indexed: 39.9 ml/m2 LAV(MOD-sp2): 65.0 ml LAV(MOD-sp4): 65.0 ml RA A4 area: 13.7 cm2 Time Measurements MV dec time: 0.13 sec Doppler Measurements & Calculations MV E max singh: 145.4 cm/sec Lat Peak E' Singh: 7.7 cm/sec Med Peak E' Singh: 4.3 cm/sec MV A max singh: 72.1 cm/sec E/E' lat: 18.8 E/E' med: 33.5 MV E/A: 2.0 Ao V2 max: 124.8 cm/sec LV V1 max: 93.2 cm/sec MR max singh: 546.4 cm/sec Ao max P.2 mmHg LV V1 max P.5 mmHg MR max P.4 mmHg PA V2 max: 100.6 cm/sec TR max singh: 317.3 cm/sec TR max P.5 mmHg Interpretation Summary Normal LV size. The estimated ejection fraction is 37 %. Moderate segmental systolic dysfunction (see wall motion). Stage 3 diastolic dysfunction. Mild-Moderate (1-2+) eccentric mitral valve insufficiency. Mild pulmonary hypertension. Ordering Physician: Charles Good Referring Physician: Evens Jimenez Performed By: Trena Pruitt RDCS, RVT
--- NOTE | 2018-05-08 07:08 | PCM.CONS.C ---
Reason for Consult Date of Consultation: 05/08/18 Reason for Consultation: Chest discomfort. Shortness of breath History of Present Illness: The patient is a 62 year old F with no previous cardiac history other than hypertension who presented to the emergency room complaining of shortness of breath over the last few days as well as chest discomfort which she says has been on and off over the last 2 days. She described this as a heaviness in her chest. There was no radiation of the discomfort. She has not had any dizziness or diaphoresis no near syncope or syncope. She presented to the emergency room and was noted to be mildly tachycardic and to have an abnormal d-dimer. She underwent a CT scan of her chest which excluded pulmonary embolism. Cardiac troponin enzymes were obtained which were mildly abnormal and cardiology was called to assist in management. She was recently in the prison after she had an amputation of her toe. She says that she has been under some stress recently. [] Past Medical History Allergies/Adverse Reactions: Allergies Penicillins Allergy (Severe, Verified 05/08/18 01:17) Swelling tolerated keflex in past with no issue Home Medications: Ambulatory Orders Medication Instructions Recorded Amlodipine [Norvasc] 10 mg PO QHS 12/18/15 Lisinopril [Zestril] 10 mg PO DAILY 12/18/15 busPIRone [Buspar] 5 mg PO TID 12/18/15 Mometasone Furoate [Elocon] 50 gm TP DAILY PRN 12/10/17 Acetaminophen [Tylenol Tablet] 650 mg PO Q6H PRN PRN tablet 12/14/17 DiphenhydrAMINE [Benadryl] 25 mg PO TID PRN PRN 12/20/17 Insulin Glargine,Hum.rec.anlog 18 unit SQ QHS 12/20/17 [Lantus] Insulin Lispro [Humalog KwikPen] 6 unit SQ 0700,1200,1700 12/20/17 Atorvastatin Calcium [Lipitor] 40 mg PO QHS 05/08/18 Sumatriptan Succinate [Imitrex] 50 mg PO DAILY PRN 05/08/18 Past Medical History (Chronic Problems): Chronic Problems (Last Updated 12/20/17 @ 17:32 by Jose Neely DO) Chronic ulcer of buttock (Chronic) Abscess of buttock (Chronic) Diabetes mellitus (Chronic) Hypertension (Chronic) History of CVA (cerebrovascular accident) (Chronic) Caries (Chronic) Tobacco abuse (Chronic) Tobacco abuse counseling (Chronic) Carotid arterial disease (Chronic) Hyperlipidemia (Chronic) Nicotine dependence (Chronic) Surgical History: - - Patient has undergone right carotid endarterectomy by Dr. Siva Jimenez approximately 7 years ago. She is a Ab0. - *Family History Maternal Family History: Family History (Last Updated 11/08/17 @ 13:38 by Melva Ashby) Mother No problems noted. History Items: Heart Disease, - - Patient's father in his 40s from myocardial infarction. Patient's mother in her 40s from a cerebrovascular accident. Smoking Status: Current every day smoker Alcohol: None Drugs: None Review of Systems - Review of Systems General: Denies: Fever, Night Sweats, Fatigue HEENT: Denies: Vision Change Cardiovascular: Reports: Chest Discomfort, Chest Discomfort at Rest. Denies: Shortness of Breath, Orthopnea, PND, Peripheral Edema, Palpitations, Lightheadedness, Dizziness, Near Syncope, Syncope Respiratory: Denies: Cough, Sputum Production, Hemoptysis Gastrointestinal: Denies: Hematemesis, Hematochezia, Melena Genitourinary: Denies: Dysuria, Hematuria Muscoloskeletal: Denies: Myalgias Skin: Denies: Rash Neurological: Denies: Dizziness Psychiatric: Denies: Anxiety Endocrine: Denies: Heat Intolerance Hematologic/ Lymphatic: Denies: Anemia Subjectve: Pleasant lady in no apparent distress Objective: Vital Signs Temp Pulse Resp BP Pulse Ox 98.9 F 102 H 28 H 116/76 91 05/08/18 04:12 05/08/18 04:50 05/08/18 04:50 05/08/18 04:12 05/08/18 05:22 Oxygen Flow Rate (L/min) 4 Oxygen Delivery Method Nasal Cannula Weight: 145 lb 15.136 oz Body Mass Index (BMI) 28.5 Intake and Output for Last 24 Hours 05/06/18 05/07/18 05/08/18 23:59 23:59 23:59 Output Total 350 / 350 Balance -350 / -350 General: Awake, Alert, Oriented x 3 HEENT: PERRL, EOMI, Sclera Non Icteric Neck: Supple, Good ROM, No Lymph Node Enlargement Lungs: Rales - Shahab Bases Cardiovascular: Regular Rhythm, Normal S1, Normal S2, No Rubs, No Gallops Murmur Murmur: Grade 1/6, Early Systolic, LLSB Vascular: No Carotid Bruits, Normal Femoral Pulses, Normal Radial Pulses, Normal Dorsalis Pedal Pulse, Normal Posterior Tibial Pulses Abdomen: Bowel Sounds Present, Soft, Non Tender, No HSM, No Organomegaly Extremities: No Cyanosis, No Clubbing, No edema Musculoskeletal: No Erythema Skin: No Rashes Lymphatic: No Lymph Node Enlargement Neurological: No Focal Motor or Sensory Deficit Psych/Mental Status: Appropriate 05/08/18 01:35: WBC 10.6, RBC 4.18 L, Hgb 11.7 L, Hct 35.8 L, MCV 85.6, MCH 28.0, MCHC 32.7, RDW 14.5, RDW Differential 45.5 H, Plt Count 413, MPV 9.0, Immature Gran % (Auto) 0.100, Neut % (Auto) 57.6, Lymph % (Auto) 27.7, [place] % (Auto) 7.1, Eos % (Auto) 7.0 H, Baso % (Auto) 0.5, Absolute Neuts (auto) 6.1, Total Counted Not Reportable 05/08/18 01:35: D-Dimer Quant (PE/DVT) 0.59 H* 05/08/18 01:35: Sodium 140, Potassium 3.7, Chloride 107, Carbon Dioxide 27.0, Anion Gap 6, BUN 19 H, Creatinine 1.21 H, Est GFR (MDRD) Af Amer 58 L, Est GFR (MDRD) Non-Af 48 L, BUN/Creatinine Ratio 15.7, Glucose 137 H, Calcium 8.7, Troponin I 0.129 H 05/08/18 05:45: WBC 9.8, RBC 3.77 L, Hgb 10.9 L, Hct 33.1 L, MCV 87.8, MCH 28.9, MCHC 32.9, RDW 14.6, RDW Differential 45.7 H, Plt Count 391, MPV 9.6 05/08/18 05:45: Sodium 141, Potassium 4.0, Chloride 109 H, Carbon Dioxide 23.0, Anion Gap 9, BUN 18, Creatinine 1.13 H, Est GFR (MDRD) Af Amer 63, Est GFR (MDRD) Non-Af 52 L, BUN/Creatinine Ratio 15.9, Glucose 158 H, Calcium 8.2 L, Total Bilirubin 0.20, Triglycerides 110, Cholesterol 174, LDL Cholesterol 105, VLDL Cholesterol 22, HDL Cholesterol 47 05/08/18 05:45: PT 14.5, INR 1.1 Rhythm: EKG: Sinus tachycardia with Q waves noted in lead III and aVF ECHO: Stress Test: Cardiac Cath: PCI: CT Surgery: Holter monitor: EPS: PPM: CXR: Chest CT Scan: Assessment/Plan 1. Acute congestive heart failure-systolic The patient presents with shortness of breath and chest discomfort and has clinical symptomatology consistent with congestive heart failure. This is her first episode for her. Recommendation will be to obtain an echocardiogram to assess her left ventricular function Intravenous diuresis with Lasix We will start ALEJANDRA inhibitor and beta-saurabh Further recommendations of the above will depend on the results of above. I would however favor an invasive approach as she likely has coronary artery disease especially since she had a toe amputation likely secondary to vascular disease. 2. Hypertension She has uncontrolled blood pressure which should be treated with a combination of ALEJANDRA inhibitor and beta-saurabh Echocardiographic exam will be performed to assess wall thickness 3. Abnormal cardiac enzymes Patient has abnormal cardiac enzymes the etiology of which is unclear at this particular time Will start aspirin Will load with clopidogrel Continue to cycle enzymes Start high intensity statin Thank you for allowing me to participate in the care of your patient. Please don't hesitate to call if any issues arise
--- NOTE | 2018-05-08 07:14 | CON.PCM_ITS ---
Reason for Consult Date of Consultation: 05/08/18 Reason for Consultation: Chest discomfort. Shortness of breath History of Present Illness: The patient is a 62 year old F with no previous cardiac history other than hypertension who presented to the emergency room complaining of shortness of breath over the last few days as well as chest discomfort which she says has been on and off over the last 2 days. She described this as a heaviness in her chest. There was no radiation of the discomfort. She has not had any dizziness or diaphoresis no near syncope or syncope. She presented to the emergency room and was noted to be mildly tachycardic and to have an abnormal d-dimer. She underwent a CT scan of her chest which excluded pulmonary embolism. Cardiac troponin enzymes were obtained which were mildly abnormal and cardiology was called to assist in management. [facility] was recently in [facility] after she had an amputation of her toe. She says that she has been under some stress recently. [] Past Medical History Allergies/Adverse Reactions: Allergies Penicillins Allergy (Severe, Verified 05/08/18 01:17) Swelling tolerated keflex in past with no issue Home Medications: Ambulatory Orders Medication Instructions Recorded Amlodipine [Norvasc] 10 mg PO QHS 12/18/15 Lisinopril [Zestril] 10 mg PO DAILY 12/18/15 busPIRone [Buspar] 5 mg PO TID 12/18/15 Mometasone Furoate [Elocon] 50 gm TP DAILY PRN 12/10/17 Acetaminophen [Tylenol Tablet] 650 mg PO Q6H PRN PRN tablet 12/14/17 DiphenhydrAMINE [Benadryl] 25 mg PO TID PRN PRN 12/20/17 Insulin Glargine,Hum.rec.anlog 18 unit SQ QHS 12/20/17 [Lantus] Insulin Lispro [Humalog KwikPen] 6 unit SQ 0700,1200,1700 12/20/17 Atorvastatin Calcium [Lipitor] 40 mg PO QHS 05/08/18 Sumatriptan Succinate [Imitrex] 50 mg PO DAILY PRN 05/08/18 Past Medical History (Chronic Problems): Chronic Problems (Last Updated 12/20/17 @ 17:32 by Jose Neely DO) Chronic ulcer of buttock (Chronic) Abscess of buttock (Chronic) Diabetes mellitus (Chronic) Hypertension (Chronic) History of CVA (cerebrovascular accident) (Chronic) Caries (Chronic) Tobacco abuse (Chronic) Tobacco abuse counseling (Chronic) Carotid arterial disease (Chronic) Hyperlipidemia (Chronic) Nicotine dependence (Chronic) Surgical History: - - Patient has undergone right carotid endarterectomy by Dr. Siva Jimenez approximately 7 years ago. She is a Ab0. - *Family History Maternal Family History: Family History (Last Updated 11/08/17 @ 13:38 by Melva Ashby) Mother No problems noted. History Items: Heart Disease, - - Patient's father in his 40s from myocardial infarction. Patient's mother in her 40s from a cerebrovascular accident. Smoking Status: Current every day smoker Alcohol: None Drugs: None Review of Systems - Review of Systems General: Denies: Fever, Night Sweats, Fatigue HEENT: Denies: Vision Change Cardiovascular: Reports: Chest Discomfort, Chest Discomfort at Rest. Denies: Shortness of Breath, Orthopnea, PND, Peripheral Edema, Palpitations, Lightheadedness, Dizziness, Near Syncope, Syncope Respiratory: Denies: Cough, Sputum Production, Hemoptysis Gastrointestinal: Denies: Hematemesis, Hematochezia, Melena Genitourinary: Denies: Dysuria, Hematuria Muscoloskeletal: Denies: Myalgias Skin: Denies: Rash Neurological: Denies: Dizziness Psychiatric: Denies: Anxiety Endocrine: Denies: Heat Intolerance Hematologic/ Lymphatic: Denies: Anemia Subjectve: Pleasant lady in no apparent distress Objective: Vital Signs Temp Pulse Resp BP Pulse Ox 98.9 F 102 H 28 H 116/76 91 05/08/18 04:12 05/08/18 04:50 05/08/18 04:50 05/08/18 04:12 05/08/18 05:22 Oxygen Flow Rate (L/min) 4 Oxygen Delivery Method Nasal Cannula Weight: 145 lb 15.136 oz Body Mass Index (BMI) 28.5 Intake and Output for Last 24 Hours 05/06/18 05/07/18 05/08/18 23:59 23:59 23:59 Output Total 350 / 350 Balance -350 / -350 General: Awake, Alert, Oriented x 3 HEENT: PERRL, EOMI, Sclera Non Icteric Neck: Supple, Good ROM, No Lymph Node Enlargement Lungs: Rales - Shahab Bases Cardiovascular: Regular Rhythm, Normal S1, Normal S2, No Rubs, No Gallops Murmur Murmur: Grade 1/6, Early Systolic, LLSB Vascular: No Carotid Bruits, Normal Femoral Pulses, Normal Radial Pulses, Normal Dorsalis Pedal Pulse, Normal Posterior Tibial Pulses Abdomen: Bowel Sounds Present, Soft, Non Tender, No HSM, No Organomegaly Extremities: No Cyanosis, No Clubbing, No edema Musculoskeletal: No Erythema Skin: No Rashes Lymphatic: No Lymph Node Enlargement Neurological: No Focal Motor or Sensory Deficit Psych/Mental Status: Appropriate 05/08/18 01:35: WBC 10.6, RBC 4.18 L, Hgb 11.7 L, Hct 35.8 L, MCV 85.6, MCH 28.0, MCHC 32.7, RDW 14.5, RDW Differential 45.5 H, Plt Count 413, MPV 9.0, Immature Gran % (Auto) 0.100, Neut % (Auto) 57.6, Lymph % (Auto) 27.7, [place] % (Auto) 7.1, Eos % (Auto) 7.0 H, Baso % (Auto) 0.5, Absolute Neuts (auto) 6.1, Total Counted Not Reportable 05/08/18 01:35: D-Dimer Quant (PE/DVT) 0.59 H* 05/08/18 01:35: Sodium 140, Potassium 3.7, Chloride 107, Carbon Dioxide 27.0, Anion Gap 6, BUN 19 H, Creatinine 1.21 H, Est GFR (MDRD) Af Amer 58 L, Est GFR (MDRD) Non-Af 48 L, BUN/Creatinine Ratio 15.7, Glucose 137 H, Calcium 8.7, Troponin I 0.129 H 05/08/18 05:45: WBC 9.8, RBC 3.77 L, Hgb 10.9 L, Hct 33.1 L, MCV 87.8, MCH 28.9, MCHC 32.9, RDW 14.6, RDW Differential 45.7 H, Plt Count 391, MPV 9.6 05/08/18 05:45: Sodium 141, Potassium 4.0, Chloride 109 H, Carbon Dioxide 23.0, Anion Gap 9, BUN 18, Creatinine 1.13 H, Est GFR (MDRD) Af Amer 63, Est GFR (MDRD) Non-Af 52 L, BUN/Creatinine Ratio 15.9, Glucose 158 H, Calcium 8.2 L, Total Bilirubin 0.20, Triglycerides 110, Cholesterol 174, LDL Cholesterol 105, VLDL Cholesterol 22, HDL Cholesterol 47 05/08/18 05:45: PT 14.5, INR 1.1 Rhythm: EKG: Sinus tachycardia with Q waves noted in lead III and aVF ECHO: Stress Test: Cardiac Cath: PCI: CT Surgery: Holter monitor: EPS: PPM: CXR: Chest CT Scan: Assessment/Plan 1. Acute congestive heart failure-systolic * The patient presents with shortness of breath and chest discomfort and has clinical symptomatology consistent with congestive heart failure. This is her first episode for her. * Recommendation will be to obtain an echocardiogram to assess her left ventricular function * Intravenous diuresis with Lasix * We will start ALEJANDRA inhibitor and beta-saurabh * Further recommendations of the above will depend on the results of above. I would however favor an invasive approach as she likely has coronary artery disease especially since she had a toe amputation likely secondary to vascular disease. * 2. Hypertension * She has uncontrolled blood pressure which should be treated with a combination of ALEJANDRA inhibitor and beta-saurabh * Echocardiographic exam will be performed to assess wall thickness * 3. Abnormal cardiac enzymes * Patient has abnormal cardiac enzymes the etiology of which is unclear at this particular time * Will start aspirin * Will load with clopidogrel * Continue to cycle enzymes * Start high intensity statin * * Thank you for allowing me to participate in the care of your patient. Please don't hesitate to call if any issues arise
[2018-05-08] MEDS: Aspirin 81 MG TAB.CHEW PO (07:55)
[2018-05-08] MEDS: Insulin Lispro 100 UNIT/ML INSULN.PEN SC (07:55)
[2018-05-08] MEDS: Clopidogrel Bisulfate 300 MG Tablet PO (07:55)
[2018-05-08] MEDS: Lisinopril 5 MG Tablet PO (09:16)
[2018-05-08] MEDS: Carvedilol 3.125 MG TABLET PO ×2 (09:16→21:39)
[2018-05-08] MEDS: Enoxaparin 40 MG/0.4 ML Syringe SC (09:18)
[2018-05-08 11:51] LABS: Bedside Glucose 129 mg/dL (70-110)
[2018-05-08] MEDS: Acetaminophen 325 MG Tablet 650 MG PO ×2 (12:11→18:28)
--- NOTE | 2018-05-08 12:39 | EKG12_ITS ---
Test Reason : CP ADMIT Blood Pressure : / mmHG Vent. Rate : 099 BPM Atrial Rate : 099 BPM P-R Int : 122 ms QRS Dur : 106 ms QT Int : 390 ms P-R-T Axes : 072 072 088 degrees QTc Int : 500 ms Normal sinus rhythm Possible Inferior infarct , age undetermined Abnormal ECG Confirmed by ANDREA GARCIA, JOE ([id number]), school photograph editor RAYMUNDO PATEL ([id number]) on 05/11/2018 11:36:44 AM Referred By: DR THOMASON Confirmed By:JOE MENDEZ MD
--- NOTE | 2018-05-08 13:53 | CASEMGMT ---
SAM GUTHRIE assessment: Face to Face with patient for initial transition planning/care coordination assessment. SAM GUTHRIE introduced self and role at [facility], pt voices understanding and consents to assessment at this time. Pt is lying in bed in no distress at this time. Pt is A/Ox4 at this time and answers all questions appropriately at this time. Care providers, pharmacy, and demographics verified at this time. PCP: Barbara VALDIVIA Specialists: Pt states no specialists currently. [facility] Insurance: [employer] Prescription Benefit: [employer] Living Will/HPOA: Pt states does not have LW/HPOA and declines info at this time. LNOK: Sunil Solorio, Living Arrangements: Pt states lives with and adult son in 2nd floor apartment and has flight of stairs to get to apartment. Pt states does stairs slowly. Pt states that her and son prepare meals, do chores, and do the grocery shopping. Transportation: Pt states that none of her family drive and they walk everywhere and use [employer] transportation. DME/HHC: Pt states has a cane and shower chair and states no need for any further DME at this time. Pt states has had HHC set up twice in the past and has been to SNF s/p surgery. Pt states no concerns with going home at time of discharge. Pt states is unemployed currently. Pt states has been trying to quit smoking and states is down to 2 cigarettes/day for the last several weeks. Pt states that she is planning on not smoking anymore. Pt states no further concerns/needs at this time. CM to follow for any further discharge planning/needs. Advised pt to ask for CM if any further questions/concerns/needs arise, voices understanding. Plan: [place] SAM GUTHRIE
[2018-05-08] MEDS: busPIRone 5 MG Tablet PO ×2 (15:07→21:39)
--- NOTE | 2018-05-08 15:33 | CASEMGMT ---
According to [facility] website, the following are in-network tertiary facilities: [facility], [facility], [facility], [facility], [facility], [facility], [facility], and . Sondra VARGAS CM
[2018-05-08 16:56] LABS: Bedside Glucose 105 mg/dL (70-110)
[2018-05-08 21:16] LABS: Bedside Glucose 101 mg/dL (70-110)
[2018-05-08] MEDS: Atorvastatin Calcium 40 MG Tablet PO (21:39)
[2018-05-09] VITALS (23 sets, daily range): BP systolic 105–149; BP diastolic 52–95; PULSE 83–109; RESP 16–18; TEMP 36.7–37.2; O2SAT 94–98
[2018-05-09] MEDS: Nitroglycerin Oint 1 INCH PACKET TRANSDERM. ×5 (00:45→23:32)
[2018-05-09 05:46] LABS: Absolute Lymphocyte Count 1.39 X10^3/ul (0.83-4.51); Absolute Neutrophil Count 3.6 X10^3/uL (2.0-7.7); Basophil# 0.07 X10^3/uL; Basophil% 1.2 % (0-1); Eosinophils% 6.7 % (0-5); Hematocrit 32.6 % (37-47); Hemoglobin 10.8 g/dl (12.0-15.0); Lymphocyte # 1.39 X10^3/ul (4.0); Lymphocyte % 23.2 % (19-41); Mean Corp Hgb Conc 33.1 g/gl (32-36); Mean Corpuscular Hgb 28.8 pg (27.0-32.0); Mean Corpuscular Volume 86.9 fL (81-99); Mean Platelet Vol. 9.6 fl (6.2-12.0); Monocyte# 0.54 X10^3/uL; Neutrophil # 3.57 X10^3/uL (2.7-7.7); Neutrophil % 59.7 % (47-70); Platelet Count 382 K/mm3 (150-450); RBC Distribution Width CV 14.6 % (11.6-14.6); RBC Distribution Width SD 44.6 fl (35.1-43.9); Red Blood Count 3.75 M/mm3 (4.2-5.4)
[2018-05-09] MEDS: Carvedilol 3.125 MG TABLET PO ×2 (05:47→21:42)
[2018-05-09] MEDS: Aspirin 81 MG TAB.CHEW PO (05:47)
[2018-05-09] MEDS: Lisinopril 5 MG Tablet PO (05:47)
[2018-05-09] MEDS: busPIRone 5 MG Tablet PO ×3 (05:47→21:42)
[2018-05-09 05:48] LABS: Anion Gap 9 (5-15); BUN 20 mg/dL (7-18); BUN/Creat Ratio 15.5 RATIO (10-20); Calcium,Total 8.4 mg/dL (8.5-10.1); Chloride 108 mmol/L (98-107); Creatinine, Serum 1.29 mg/dL (0.55-1.02); EST Glomerular Filtration Rate 44 mL/min (>60); Est Glom Filt Rate - Afr Amer 54 mL/min (>60); Estimated Creatinine Clearance 32.48 ml/min; Glucose 112 mg/dL (74-106); Potassium 3.2 mmol/L (3.5-5.1); Sodium Level 143 mmol/L (136-145)
[2018-05-09 05:49] LABS: International Normalized Ratio 1.2; Partial Thromboplast Time 31.7 Seconds (24.1-36.2); Prothrombin Time (Protime)PT. 14.8 SECONDS (11.7-14.9)
[2018-05-09 05:55] LABS: POSITIVE COUNT NO; POSITIVE DIFFERENTIAL NO; POSITIVE MORPHOLOGY NO
--- NOTE | 2018-05-09 05:55 | EKG12_ITS ---
Test Reason : AM EKG Blood Pressure : / mmHG Vent. Rate : 086 BPM Atrial Rate : 086 BPM P-R Int : 126 ms QRS Dur : 114 ms QT Int : 414 ms P-R-T Axes : 070 082 148 degrees QTc Int : 495 ms Normal sinus rhythm Possible Left atrial enlargement Septal infarct , age undetermined Possible Inferior infarct , age undetermined ST & T wave abnormality, consider lateral ischemia Abnormal ECG Confirmed by GENA GARCIA, JAMIE ([id number]), news copy editor RAYMUNDO PATEL ([id number]) on 05/11/2018 11:04:33 AM Referred By: KATELIN Confirmed By:JAMIE AVERY MD
[2018-05-09 06:56] LABS: Bedside Glucose 122 mg/dL (70-110)
--- NOTE | 2018-05-09 07:20 | NURSING ---
Called report to Nicki VARGAS in [employer]
--- NOTE | 2018-05-09 08:16 | PCM.PN.CARD ---
Subjectve: Patient seen and evaluated. Underwent cardiac catheterization this morning. Objective: Vital Signs Temp Pulse Resp BP Pulse Ox 98.8 F 93 18 118/59 L 94 05/09/18 05:44 05/09/18 05:44 05/09/18 05:44 05/09/18 05:44 05/09/18 06:54 Oxygen Flow Rate (L/min) 2 Oxygen Delivery Method Room Air Weight: 145 lb 15.136 oz Body Mass Index (BMI) 28.5 Intake and Output for Last 24 Hours 05/07/18 05/08/18 05/09/18 23:59 23:59 23:59 Intake Total 360 / 360 60 / 60 Output Total 2700 / 2700 1050 / 1050 Balance -2340 / -2340 -990 / -990 General: Awake, Alert, Oriented x 3 HEENT: PERRL, EOMI, Sclera Non Icteric Neck: Supple, Good ROM, No Lymph Node Enlargement Lungs: Clear to auscultation Cardiovascular: Regular Rhythm, Normal S1, Normal S2, No Rubs, No Gallops Murmur Murmur: Grade 2/6, Holosystolic, [place] Vascular: No Carotid Bruits, Normal Femoral Pulses, Normal Radial Pulses, Normal Dorsalis Pedal Pulse, Normal Posterior Tibial Pulses Abdomen: Bowel Sounds Present, Soft, Non Tender, No HSM, No Organomegaly Extremities: No Cyanosis, No Clubbing, No edema Neurological: No Focal Motor or Sensory Deficit 05/08/18 05:45: B-Natriuretic Peptide 3127.7 H 05/08/18 09:10: Troponin I 0.106 H 05/09/18 05:10: Sodium 143, Potassium 3.2 L, Chloride 108 H, Carbon Dioxide 26.0, Anion Gap 9, BUN 20 H, Creatinine 1.29 H, Est GFR (MDRD) Af Amer 54 L, Est GFR (MDRD) Non-Af 44 L, BUN/Creatinine Ratio 15.5, Glucose 112 H, Calcium 8.4 L 05/09/18 05:10: PT 14.8, INR 1.2, APTT 31.7 05/09/18 05:10: WBC 6.0, RBC 3.75 L, Hgb 10.8 L, Hct 32.6 L, MCV 86.9, MCH 28.8, MCHC 33.1, RDW 14.6, RDW Differential 44.6 H, Plt Count 382, MPV 9.6, Immature Gran % (Auto) 0.200, Neut % (Auto) 59.7, Lymph % (Auto) 23.2, [place] % (Auto) 9.0, Eos % (Auto) 6.7 H, Baso % (Auto) 1.2 H, Absolute Neuts (auto) 3.6, Total Counted Not Reportable Rhythm: EKG: ECHO: Stress Test: Cardiac Cath: PCI: CT Surgery: Holter monitor: EPS: PPM: CXR: Chest CT Scan: Medical Necessity - Tobacco Use Smoking Status: Current every day smoker Assessment/Plan 1. Acute congestive heart failure-systolic The patient presents with shortness of breath and chest discomfort and has clinical symptomatology consistent with congestive heart failure. This is her first episode for her. Echocardiogram demonstrated severe left ventricular systolic dysfunction estimated ejection fraction of 35% with segmental wall motion abnormalities. Intravenous diuresis with Lasix We will start ALEJANDRA inhibitor and beta-saurabh Cardiac catheterization today demonstrated the following: Left main coronary artery normal. Left anterior descending artery with long areas of multiple 90% stenosis. Left circumflex artery with mid circumflex 80-90% stenosis and mid to distal 80-90% stenosis. Left to right collaterals noted. Dominant right coronary artery which is totally occluded. Severe left ventricular systolic dysfunction with akinetic inferior wall. 2. Hypertension She has uncontrolled blood pressure which should be treated with a combination of ALEJANDRA inhibitor and beta-saurabh 3. Abnormal cardiac enzymes Patient has abnormal cardiac enzymes the etiology of which is unclear at this particular time Will start aspirin Continue to cycle enzymes Start high intensity statin Based on the above angiographic findings would recommend coronary artery bypass surgery as well as mitral valve repair. Would recommend transfer to a tertiary care facility later today. Thank you for allowing me to participate in the care of your patient. Please don't hesitate to call if any issues arise
--- NOTE | 2018-05-09 08:21 | PN.CARD_ITS ---
Subjectve: Patient seen and evaluated. Underwent cardiac catheterization this morning. Objective: Vital Signs Temp Pulse Resp BP Pulse Ox 98.8 F 93 18 118/59 L 94 05/09/18 05:44 05/09/18 05:44 05/09/18 05:44 05/09/18 05:44 05/09/18 06:54 Oxygen Flow Rate (L/min) 2 Oxygen Delivery Method Room Air Weight: 145 lb 15.136 oz Body Mass Index (BMI) 28.5 Intake and Output for Last 24 Hours 05/07/18 05/08/18 05/09/18 23:59 23:59 23:59 Intake Total 360 / 360 60 / 60 Output Total 2700 / 2700 1050 / 1050 Balance -2340 / -2340 -990 / -990 General: Awake, Alert, Oriented x 3 HEENT: PERRL, EOMI, Sclera Non Icteric Neck: Supple, Good ROM, No Lymph Node Enlargement Lungs: Clear to auscultation Cardiovascular: Regular Rhythm, Normal S1, Normal S2, No Rubs, No Gallops Murmur Murmur: Grade 2/6, Holosystolic, [place] Vascular: No Carotid Bruits, Normal Femoral Pulses, Normal Radial Pulses, Normal Dorsalis Pedal Pulse, Normal Posterior Tibial Pulses Abdomen: Bowel Sounds Present, Soft, Non Tender, No HSM, No Organomegaly Extremities: No Cyanosis, No Clubbing, No edema Neurological: No Focal Motor or Sensory Deficit 05/08/18 05:45: B-Natriuretic Peptide 3127.7 H 05/08/18 09:10: Troponin I 0.106 H 05/09/18 05:10: Sodium 143, Potassium 3.2 L, Chloride 108 H, Carbon Dioxide 26.0, Anion Gap 9, BUN 20 H, Creatinine 1.29 H, Est GFR (MDRD) Af Amer 54 L, Est GFR (MDRD) Non-Af 44 L, BUN/Creatinine Ratio 15.5, Glucose 112 H, Calcium 8.4 L 05/09/18 05:10: PT 14.8, INR 1.2, APTT 31.7 05/09/18 05:10: WBC 6.0, RBC 3.75 L, Hgb 10.8 L, Hct 32.6 L, MCV 86.9, MCH 28.8, MCHC 33.1, RDW 14.6, RDW Differential 44.6 H, Plt Count 382, MPV 9.6, Immature Gran % (Auto) 0.200, Neut % (Auto) 59.7, Lymph % (Auto) 23.2, [place] % (Auto) 9.0, Eos % (Auto) 6.7 H, Baso % (Auto) 1.2 H, Absolute Neuts (auto) 3.6, Total Counted Not Reportable Rhythm: EKG: ECHO: Stress Test: Cardiac Cath: PCI: CT Surgery: Holter monitor: EPS: PPM: CXR: Chest CT Scan: Medical Necessity - Tobacco Use Smoking Status: Current every day smoker Assessment/Plan 1. Acute congestive heart failure-systolic * The patient presents with shortness of breath and chest discomfort and has clinical symptomatology consistent with congestive heart failure. This is her first episode for her. * Echocardiogram demonstrated severe left ventricular systolic dysfunction estimated ejection fraction of 35% with segmental wall motion abnormalities. * Intravenous diuresis with Lasix * We will start ALEJANDRA inhibitor and beta-saurabh * Cardiac catheterization today demonstrated the following: Left main coronary artery normal. Left anterior descending artery with long areas of multiple 90% stenosis. Left circumflex artery with mid circumflex 80-90% stenosis and mid to distal 80- 90% stenosis. Left to right collaterals noted. Dominant right coronary artery which is totally occluded. Severe left ventricular systolic dysfunction with akinetic inferior wall. 2. Hypertension * She has uncontrolled blood pressure which should be treated with a combination of ALEJANDRA inhibitor and beta-saurabh * * 3. Abnormal cardiac enzymes * Patient has abnormal cardiac enzymes the etiology of which is unclear at this particular time * Will start aspirin * * Continue to cycle enzymes * Start high intensity statin * * * Based on the above angiographic findings would recommend coronary artery bypass surgery as well as mitral valve repair. Would recommend transfer to a tertiary care facility later today. * Thank you for allowing me to participate in the care of your patient. Please don't hesitate to call if any issues arise
--- NOTE | 2018-05-09 08:33 | CL.D_ITS ---
Patient Name: DAVINA DAVIS Study Date: 05/09/2018 Performing: Charles Good MD Ht: 59.84 inches 152 cm : 1955 Wt: 145.51 lbs 66 kg Age: 62 Gender: female BSA: 1.63 PROCEDURE(S) PERFORMED EN95-QDX/COR/LV CLINICAL PROFILE AND INDICATIONS Indications: Cardiomyopathy Heart Failure: NYHA Class: 3, Newly Diagnosed: Yes, Heart Failure Type: Systolic Stress/Imaging Stress/Image Study Performed: No CAD Presentations: Unstable angina. CONCLUSIONS Severe three-vessel disease, and severe left ventricular systolic dysfunction with an akinetic inferi or wall and 2-3+ mitral regurgitation RECOMMENDATIONS Surgery consult for coronary revascularization Surgery consult for valvular disease DESCRIPTION OF PROCEDURE The patient arrived to the procedure lab. The risks and benefits of the procedure as well as a full d escription of our services here and current unavailability of surgical backup were fully explained to the patient and/or their significant other prior to the catheterization. The Timeout was completed, verifying the correct patient and procedure. The patient's procedural site was prepped and draped in the usual fashion. Local anesthetic was given subcutaneously to right groin region with Lidocaine 2%. Using a modified Seldinger technique, arterial access was obtained via the right femoral artery, a 5 Fr sheath was inserted. Left Coronary Artery selective angiography was performed in multiple views u sing a 5 Fr. JL4 catheter. Right Coronary Artery selective angiography was then performed in multiple views using a 5 Fr. 3DRC (Sourav) catheter. Left Ventriculography was performed in BELLO projection using a 5 Fr. Pigtail catheter. LV to AO pullback pressures were then recorded.The arterial sheath was pulled and manual compression applied until hemostasis is achieved. CORONARY ANGIOGRAPHY DOMINANCE: Right Dominant LEFT HEART ASSESSMENT Left Ventricular Ejection Fraction: by LV Gram 30 % Inferior Basal Akinesis. Anterior Hypokinesis - Severe LEFT MAIN: Angiographically normal LEFT ANTERIOR DECENDING ARTERY: Multiple areas of 90% stenosis noted in the proximal mid and distal, and first diagonal vessel with proximal 80-90% stenosis CIRCUMFLEX ARTERY: Proximal 80% stenosis with mild calcification and distal 90% stenosis prior to the second obtuse marginal vessel. [id number] collaterals seen filling the right coronary artery RIGHT CORONARY ARTERY: OSTIAL RCA: is occluded COLLATERAL FLOW: Collateral flow from Left to Right VALVE FINDINGS: Mitral Valve Insufficiency - Grade 3 COMPLICATIONS No Complications PROCEDURE MEDICATIONS Versed 1 mg IV Versed 1 mg IV Oxygen: 2 L/min via nasal cannula SUMMARY OF HEMODYNAMIC DATA Time AIR REST ECG 07:48:13 AO 135/68 (94) SA 08:00:46 LV 132/6, 17 08:06:50 LV 140/7, 22 08:06:57 LV 141/-2, 25 08:08:13 LVp 144/-1, 25 08:08:21 AOp 150/74 (103) 08:08:26 Signed By Charles Good MD On 05/09/2018 08:32:21 Charles Good MD
[2018-05-09] MEDS: Acetaminophen 325 MG Tablet 650 MG PO ×2 (09:40→17:44)
[2018-05-09 11:20] LABS: Bedside Glucose 179 mg/dL (70-110)
[2018-05-09] MEDS: Insulin Lispro 100 UNIT/ML INSULN.PEN SC ×2 (11:22→16:38)
--- NOTE | 2018-05-09 12:01 | PCM.DC.SUM ---
Discharge Date and Diagnosis - Problem List Patient Problems: Active and Suspected Problems (Last Updated 12/20/17 @ 17:32 by Jose Neely DO) Chest pain (Acute) Date of Admission: 05/08/18 Date of Discharge: 05/09/18 - Primary Discharge Diagnosis Active and Suspected Problems (Last Updated 12/20/17 @ 17:32 by Jose Neely DO) #1 multivessel coronary artery disease required transfer to a tertiary care center for CABG. #2 acute systolic congestive heart failure. - Secondary Discharge Diagnosis Chronic Problems (Last Updated 12/20/17 @ 17:32 by Jose Neely DO) Chronic ulcer of buttock (Chronic) Abscess of buttock (Chronic) Diabetes mellitus (Chronic) Hypertension (Chronic) History of CVA (cerebrovascular accident) (Chronic) Caries (Chronic) Tobacco abuse (Chronic) Tobacco abuse counseling (Chronic) Carotid arterial disease (Chronic) Hyperlipidemia (Chronic) Nicotine dependence (Chronic) Hospital Course and Treatment Imaging Results: Clinical Impression(s) from Imaging Studies Chest X-Ray 05/08/18 01:32 IMPRESSION: Central vascular congestion. Chronic interstitial lung changes. Electronically Signed: Jacob Alicea MD at 2:15 EST Tel , Service support , Chest CTA 05/08/18 02:02 IMPRESSION: No pulmonary embolus. Bilateral pleural effusions. Diffuse interstitial edema. Electronically Signed: Jacob Alicea MD at 3:21 EST Tel , Service support , Dr. Good, cardiology. Procedures: 2-D Echocardiogram, Cardiac catheterization, EKG Summary of Care Provided: The patient is a 62 year old F admitted because of shortness of breath and chest pain for evaluation. She was found to have acute systolic CHF based on clinical findings and chest x-ray findings and she was started on IV diuretics as well as beta-blockers and ALEJANDRA inhibitors. Her EKG revealed no evidence of acute ischemic changes. Her troponin was borderline elevated. Chest x-ray revealed pulmonary vascular congestion consistent with acute CHF. D-dimer was elevated for which CTA chest done and showed no evidence of PE or dissection, revealed bilateral small pleural effusion and diffuse interstitial edema consistent with CHF. Patient was given aspirin, loading dose of Plavix and was started on standard treatment for CHF including aspirin, beta-blockers and ALEJANDRA inhibitors. She underwent cardiac catheterization that revealed normal left main coronary artery, left anterior descending artery with long areas of multiple 90% stenosis, left circumflex artery with mid circumflex 80-90% stenosis and mid to distal 80-90% stenosis, dominant right coronary artery which was totally occluded as well as severe left ventricular systolic dysfunction. Because she was found to have triple-vessel disease and she is diabetic, CABG is indicated. Dr. Good made the arrangement for the patient to be transferred to [facility] for CABG. Patient was accepted to go to [facility] for CABG and awaiting a bed availability. Patient Problems: Active and Suspected Problems (Last Updated 12/20/17 @ 17:32 by Jose Neely DO) Chest pain (Acute) - Physical Exam General: Alert, Oriented x3, Cooperative, No apparent distress HEENT: Atraumatic, PERRLA, EOMI, Normocephalic Oral: Moist Mucosa, No Gingival or Mucosal Lesions/ Ulcerations Neck: Supple, No JVD, Negative Carotid Bruits, Trachea Midline, Thyroid Normal Size and Texture Lungs: No rhonchi, No wheeze, Diminished, Rales, - - Decreased breath sounds at the bases, faint crackles. Cardiovascular: Regular rate, Regular Rhythm, Normal S1, Normal S2, PMI Normal Abdomen: Bowel Sounds Present, Soft, Non Tender, Non-Distended, No Hepato-splenomegaly Extremities: No clubbing, No cyanosis, No edema Skin: No rashes, No breakdown Lymphatic: No Cervical, Supraclavicular, or Inguinal Adenopathy Neurological: Cranial nerves II-XII grossly intact, Neuro grossly intact Psych/Mental Status: Normal Affect, Appropriate Vital Signs Temp Pulse Resp BP Pulse Ox 98.7 F 96 18 122/72 H 96 05/09/18 11:35 05/09/18 11:35 05/09/18 11:35 05/09/18 11:35 05/09/18 11:35 Oxygen Flow Rate (L/min) 2 Oxygen Delivery Method Room Air Weight: 145 lb 15.136 oz Body Mass Index (BMI) 28.5 Intake and Output for Last 24 Hours 05/07/18 05/08/1818 23:59 23:59 23:59 Intake Total 360 / 360 60 / 60 Output Total 2700 / 2700 1050 / 1050 Balance -2340 / -2340 -990 / -990 Laboratory Tests Past 24 Hrs 05/09/18 05/09/18 05/09/18 05:10 05:10 05:10 WBC 6.0 RBC 3.75 L Hgb 10.8 L Hct 32.6 L MCV 86.9 MCH 28.8 MCHC 33.1 RDW 14.6 RDW Differential 44.6 H Plt Count 382 MPV 9.6 Immature Gran % (Auto) 0.200 Neut % (Auto) 59.7 Lymph % (Auto) 23.2 [place] % (Auto) 9.0 Eos % (Auto) 6.7 H Baso % (Auto) 1.2 H Absolute Neuts (auto) 3.6 Absolute Lymphs (auto) 1.39 Total Counted Not Reportable PT 14.8 INR 1.2 APTT 31.7 Sodium 143 Potassium 3.2 L Chloride 108 H Carbon Dioxide 26.0 Anion Gap 9 BUN 20 H Creatinine 1.29 H Estim Creat Clear Calc 32.48 Est GFR (MDRD) Af Amer 54 L Est GFR (MDRD) Non-Af 44 L BUN/Creatinine Ratio 15.5 Glucose 112 H Calcium 8.4 L POC Glucose 05/09/18 05/09/18 05/08/18 11:07 06:49 21:06 POC Glucose 179 H 122 H 101 05/08/18 16:50 POC Glucose 105 Home Medications: Medications to take at Discharge Amlodipine [Norvasc] 10 mg PO QHS 12/18/15 Lisinopril [Zestril] 10 mg PO DAILY 12/18/15 busPIRone [Buspar] 5 mg PO TID 12/18/15 Mometasone Furoate [Elocon] 50 gm TP DAILY PRN 12/10/17 Acetaminophen [Tylenol Tablet] 650 mg PO Q6H PRN PRN tablet 12/14/17 DiphenhydrAMINE [Benadryl] 25 mg PO TID PRN PRN 12/20/17 Insulin Glargine,Hum.rec.anlog [Lantus] 18 unit SQ QHS 12/20/17 Insulin Lispro [Humalog KwikPen] 6 unit SQ 0700,1200,1700 12/20/17 Atorvastatin Calcium [Lipitor] 40 mg PO QHS 05/08/18 Sumatriptan Succinate [Imitrex] 50 mg PO DAILY PRN 05/08/18 Primary Care Physician: Evens Jimenez III, MD [Primary Care Provider] - Disposition: Acute care Hospital Minutes spent on discharge:: 32 Patient Condition:: Stable Medical Necessity - Tobacco Use Smoking Status: Current every day smoker Meaningful Use Info Meaningful Use Diagnoses (Choose all that apply): CHF - CHF ALEJANDRA/ARB ordered at discharge?: Yes Documented LVEF (%): 37 Code Visit Inpatient E&M: 22549 Disch Hosp
--- NOTE | 2018-05-09 12:08 | DS.PCM_ITS ---
Discharge Date and Diagnosis - Problem List Patient Problems: Active and Suspected Problems (Last Updated 12/20/17 @ 17:32 by Jose Neely DO) Chest pain (Acute) Date of Admission: 05/08/18 Date of Discharge: 05/09/18 - Primary Discharge Diagnosis Active and Suspected Problems (Last Updated 12/20/17 @ 17:32 by Jose Neely DO) #1 multivessel coronary artery disease required transfer to a tertiary care center for CABG. #2 acute systolic congestive heart failure. - Secondary Discharge Diagnosis Chronic Problems (Last Updated 12/20/17 @ 17:32 by Jose Neely DO) Chronic ulcer of buttock (Chronic) Abscess of buttock (Chronic) Diabetes mellitus (Chronic) Hypertension (Chronic) History of CVA (cerebrovascular accident) (Chronic) Caries (Chronic) Tobacco abuse (Chronic) Tobacco abuse counseling (Chronic) Carotid arterial disease (Chronic) Hyperlipidemia (Chronic) Nicotine dependence (Chronic) Hospital Course and Treatment Imaging Results: Clinical Impression(s) from Imaging Studies Chest X-Ray 05/08/18 01:32 IMPRESSION: Central vascular congestion. Chronic interstitial lung changes. Electronically Signed: Jacob Alicea MD at 2:15 EST Tel , Service support , Chest CTA 05/08/18 02:02 IMPRESSION: No pulmonary embolus. Bilateral pleural effusions. Diffuse interstitial edema. Electronically Signed: Jacob Alicea MD at 3:21 EST Tel , Service support , Dr. Good, cardiology. Procedures: 2-D Echocardiogram, Cardiac catheterization, EKG Summary of Care Provided: The patient is a 62 year old F admitted because of shortness of breath and chest pain for evaluation. She was found to have acute systolic CHF based on clinical findings and chest x-ray findings and she was started on IV diuretics as well as beta-blockers and ALEJANDRA inhibitors. Her EKG revealed no evidence of acute ischemic changes. Her troponin was borderline elevated. Chest x-ray revealed pulmonary vascular congestion consistent with acute CHF. D-dimer was elevated for which CTA chest done and showed no evidence of PE or dissection, revealed bilateral small pleural effusion and diffuse interstitial edema consistent with CHF. Patient was given aspirin, loading dose of Plavix and was started on standard treatment for CHF including aspirin, beta-blockers and ALEJANDRA inhibitors. She underwent cardiac catheterization that revealed normal left main coronary artery, left anterior descending artery with long areas of multiple 90% stenosis, left circumflex artery with mid circumflex 80-90% stenosis and mid to distal 80-90% stenosis, dominant right coronary artery which was totally occluded as well as severe left ventricular systolic dysfunction. Because she was found to have triple-vessel disease and she is diabetic, CABG is indicated. Dr. Good made the arrangement for the patient to be transferred to [facility] for CABG. Patient was accepted to go to [facility] for CABG and awaiting a bed availability. Patient Problems: Active and Suspected Problems (Last Updated 12/20/17 @ 17:32 by Jose Neely DO) Chest pain (Acute) - Physical Exam General: Alert, Oriented x3, Cooperative, No apparent distress HEENT: Atraumatic, PERRLA, EOMI, Normocephalic Oral: Moist Mucosa, No Gingival or Mucosal Lesions/ Ulcerations Neck: Supple, No JVD, Negative Carotid Bruits, Trachea Midline, Thyroid Normal Size and Texture Lungs: No rhonchi, No wheeze, Diminished, Rales, - - Decreased breath sounds at the bases, faint crackles. Cardiovascular: Regular rate, Regular Rhythm, Normal S1, Normal S2, PMI Normal Abdomen: Bowel Sounds Present, Soft, Non Tender, Non-Distended, No Hepato- splenomegaly Extremities: No clubbing, No cyanosis, No edema Skin: No rashes, No breakdown Lymphatic: No Cervical, Supraclavicular, or Inguinal Adenopathy Neurological: Cranial nerves II-XII grossly intact, Neuro grossly intact Psych/Mental Status: Normal Affect, Appropriate Vital Signs Temp Pulse Resp BP Pulse Ox 98.7 F 96 18 122/72 H 96 05/09/18 11:35 05/09/18 11:35 05/09/18 11:35 05/09/18 11:35 05/09/18 11:35 Oxygen Flow Rate (L/min) 2 Oxygen Delivery Method Room Air Weight: 145 lb 15.136 oz Body Mass Index (BMI) 28.5 Intake and Output for Last 24 Hours 05/07/18 05/08/1818 23:59 23:59 23:59 Intake Total 360 / 360 60 / 60 Output Total 2700 / 2700 1050 / 1050 Balance -2340 / -2340 -990 / -990 Laboratory Tests Past 24 Hrs 05/09/18 05/09/18 05/09/18 05:10 05:10 05:10 WBC 6.0 RBC 3.75 L Hgb 10.8 L Hct 32.6 L MCV 86.9 MCH 28.8 MCHC 33.1 RDW 14.6 RDW Differential 44.6 H Plt Count 382 MPV 9.6 Immature Gran % (Auto) 0.200 Neut % (Auto) 59.7 Lymph % (Auto) 23.2 [place] % (Auto) 9.0 Eos % (Auto) 6.7 H Baso % (Auto) 1.2 H Absolute Neuts (auto) 3.6 Absolute Lymphs (auto) 1.39 Total Counted Not Reportable PT 14.8 INR 1.2 APTT 31.7 Sodium 143 Potassium 3.2 L Chloride 108 H Carbon Dioxide 26.0 Anion Gap 9 BUN 20 H Creatinine 1.29 H Estim Creat Clear Calc 32.48 Est GFR (MDRD) Af Amer 54 L Est GFR (MDRD) Non-Af 44 L BUN/Creatinine Ratio 15.5 Glucose 112 H Calcium 8.4 L POC Glucose 05/09/18 05/09/18 05/08/18 11:07 06:49 21:06 POC Glucose 179 H 122 H 101 05/08/18 16:50 POC Glucose 105 Home Medications: Medications to take at Discharge Amlodipine [Norvasc] 10 mg PO QHS 12/18/15 Lisinopril [Zestril] 10 mg PO DAILY 12/18/15 busPIRone [Buspar] 5 mg PO TID 12/18/15 Mometasone Furoate [Elocon] 50 gm TP DAILY PRN 12/10/17 Acetaminophen [Tylenol Tablet] 650 mg PO Q6H PRN PRN tablet 12/14/17 DiphenhydrAMINE [Benadryl] 25 mg PO TID PRN PRN 12/20/17 Insulin Glargine,Hum.rec.anlog [Lantus] 18 unit SQ QHS 12/20/17 Insulin Lispro [Humalog KwikPen] 6 unit SQ 0700,1200,1700 12/20/17 Atorvastatin Calcium [Lipitor] 40 mg PO QHS 05/08/18 Sumatriptan Succinate [Imitrex] 50 mg PO DAILY PRN 05/08/18 Primary Care Physician: Evens Jimenez III, MD [Primary Care Provider] - Disposition: Acute care Hospital Minutes spent on discharge:: 32 Patient Condition:: Stable Medical Necessity - Tobacco Use Smoking Status: Current every day smoker Meaningful Use Info Meaningful Use Diagnoses (Choose all that apply): CHF - CHF ALEJANDRA/ARB ordered at discharge?: Yes Documented LVEF (%): 37 Code Visit Inpatient E&M: 49132 Disch Hosp
[2018-05-09] MEDS: Glucerna Shake 120 ML LIQUID PO ×2 (12:35→17:44)
[2018-05-09] MEDS: 0.9% NaCl Peripheral Flush Adult/Peds IV ×2 (12:40→17:49)
[2018-05-09] MEDS: Furosemide 40 MG/4 ML Vial IV ×2 (12:41→17:48)
[2018-05-09 16:45] LABS: Bedside Glucose 172 mg/dL (70-110)
--- NOTE | 2018-05-09 18:50 | NURSING ---
Reviewed and agreed on all charting with David Villalba RN
[2018-05-09] MEDS: Atorvastatin Calcium 40 MG Tablet PO (21:43)
[2018-05-09 21:51] LABS: Bedside Glucose 145 mg/dL (70-110)
[2018-05-10] VITALS (10 sets, daily range): BP systolic 104–130; BP diastolic 66–86; PULSE 80–99; RESP 18; TEMP 36.7–37.2; O2SAT 93–98
[2018-05-10] MEDS: busPIRone 5 MG Tablet PO ×2 (05:05→13:16)
[2018-05-10] MEDS: Nitroglycerin Oint 1 INCH PACKET TRANSDERM. ×3 (05:05→17:20)
[2018-05-10 07:00] LABS: Bedside Glucose 160 mg/dL (70-110)
[2018-05-10] MEDS: Insulin Lispro 100 UNIT/ML INSULN.PEN SC ×3 (09:23→16:24)
[2018-05-10] MEDS: Aspirin 81 MG TAB.CHEW PO (09:23)
[2018-05-10] MEDS: Glucerna Shake 120 ML LIQUID PO (09:23)
[2018-05-10] MEDS: Lisinopril 5 MG Tablet PO (09:24)
[2018-05-10] MEDS: Enoxaparin 40 MG/0.4 ML Syringe SC (09:24)
[2018-05-10] MEDS: Furosemide 40 MG Tablet PO ×2 (09:24→17:20)
[2018-05-10] MEDS: Carvedilol 3.125 MG TABLET PO (09:24)
--- NOTE | 2018-05-10 11:14 | PN_ITS ---
Subjective: Chief complaint: Follow-up after admission for acute distress CHF, found to have multivessel coronary artery disease requiring CABG, awaiting bed availability at [facility]. Patient seen and examined. No acute events overnight. She mentioned that her shortness of breath is gone, resolved. Denied any chest pain. Her vital signs are stable. - Physical Exam General: Alert, Oriented x3, Cooperative, No apparent distress HEENT: Atraumatic, PERRLA, EOMI, Normocephalic Oral: Moist Mucosa, No Gingival or Mucosal Lesions/ Ulcerations Neck: Supple, No JVD, Negative Carotid Bruits, Trachea Midline, Thyroid Normal Size and Texture Lungs: Clear to auscultation, Normal air movement, No rhonchi, No wheeze, No rales Cardiovascular: Regular rate, Regular Rhythm, Normal S1, Normal S2, No murmurs Abdomen: Bowel Sounds Present, Soft, Non Tender, Non-Distended, No Hepato- splenomegaly Extremities: No clubbing, No cyanosis, No edema Skin: No rashes, No breakdown Lymphatic: No Cervical, Supraclavicular, or Inguinal Adenopathy Neurological: Cranial nerves II-XII grossly intact, Motor Exam 5/5 strength throughout Psych/Mental Status: Normal Affect, Appropriate, Alert and oriented to time, place, person, mood and affect Vital Signs Temp Pulse Resp BP Pulse Ox 98.3 F 96 18 127/80 H 95 05/10/18 09:15 05/10/18 09:15 05/10/18 09:15 05/10/18 09:15 05/10/18 09:15 Oxygen Flow Rate (L/min) 2 Oxygen Delivery Method Room Air Weight: 138 lb 3.677 oz Body Mass Index (BMI) 28.5 Intake and Output for Last 24 Hours 05/08/18 05/09/18 05/10/18 23:59 23:59 23:59 Intake Total 360 / 360 1818 / 1818 Output Total 2700 / 2700 2100 / 2100 Balance -2340 / -2340 -282 / -282 POC Glucose 05/10/18 05/09/18 05/09/18 06:55 21:39 16:36 POC Glucose 160 H 145 H 172 H 05/09/18 11:07 POC Glucose 179 H Medical Necessity - Tobacco Use Smoking Status: Current every day smoker Assessment/Plan This is a 62 years old female patient presented to the ED because of chest pain or shortness of breath, found to have abnormal cardiac enzymes, acute systolic CHF, underwent cardiac catheterization and she was found to have multivessel coronary artery disease requiring CABG and we have been waiting for bed availability for transfer to [facility] for bypass surgery. #1 acute systolic CHF: She is on IV Lasix, switched to oral Lasix today, on Coreg and lisinopril. Her symptoms improved, no more shortness of breath, pulse ox is maintained on room air. 2D echocardiogram revealed ejection fraction of 37%, stage III diastolic dysfunction, mild pulmonary hypertension. At this time, we are still awaiting bed availability at [facility] for transfer. #2 abnormal cardiac enzymes: EKG revealed no evidence of acute ischemic changes. Patient underwent cardiac catheterization that revealed normal left main coronary artery, left anterior descending artery with long areas of multiple 90% stenosis, left circumflex artery with mid circumflex 80-90% stenosis and mid to distal 80-90% stenosis, dominant occluded right coronary artery and found to have severe left ventricular systolic dysfunction. He is on aspirin, statins, beta-blockers and ALEJANDRA inhibitors. Plan as above, awaiting bed availability at [facility]. #3 multivessel coronary artery disease: Cardiac catheterization findings reviewed as above. She does have triple-vessel disease and she is diabetic and at this time, CABG is indicated. She is on standard treatment. Awaiting bed availability at [facility]. #4 stage III chronic kidney disease: Baseline creatinine has been around 1.2-1.3 mg/dL. Yesterday's creatinine was 1.29, stable at baseline. #5 peripheral vascular disease: With history of left fifth toe gangrene, status post amputation. She is on aspirin and statins. #6 type 2 diabetes mellitus: Blood sugar has been stable. She is on Lantus nightly and insulin sliding scale. #7 hypertension: Blood pressure stable, continue Coreg and lisinopril. #8 hyperlipidemia: Continue statins. #9 DVT prophylaxis: Subcu Lovenox. This note was generated with [employer] in [place] dictation software. It may contain incorrect words, spelling, and punctuation that were not noted in checking the note before signing. Code Visit Inpatient E&M: 09647 Subs Hosp L2
[2018-05-10 11:31] LABS: Bedside Glucose 203 mg/dL (70-110)
[2018-05-10 16:31] LABS: Bedside Glucose 161 mg/dL (70-110)
[2018-05-10] MEDS: Acetaminophen 325 MG Tablet 650 MG PO (16:33)
--- NOTE | 2018-05-10 17:34 | NURSING ---
Report called to . Report given to Asa SAM.
--- NOTE | 2018-05-10 18:19 | NURSING ---
Reviewed and agreed on all charting with David Villalba RN
--- OUTSIDE RECORDS SUMMARY | 2018-06-24 03:58 | XMS RPT_ITS ---
:1955 Author Organization OHIP Support Name Relationship Address Phone MANDY GREEN Unavailable [address] + [address] [place] [address] UE Unavailable Unavailable Unavailable WALKER, STEPAHNIE Unavailable [address] + [address] [place] [address] PETER MANDY Unavailable [address] + [address] [place] [address] UE Unavailable Unavailable Unavailable WALKER, STEPAHNIE Unavailable [address] + [address] [place] [address] PETER MANDY Unavailable [address] + [address] [place] [address] UE Unavailable Unavailable Unavailable WALKER, STEPAHNIE Unavailable [address] + [address] [place] [address] PETER MANDY Unavailable [address] + [address] [place] [address] UE Unavailable Unavailable Unavailable PETER MANDY Unavailable Unavailable + PETER, MANDY Unavailable [address] + [address] [place] [address] UE Unavailable Unavailable Unavailable PETER MANDY Unavailable Unavailable + Peter, Mandy Unavailable [address] + [address] [place] [address] UE Unavailable Unavailable Unavailable Peter, Mandy Unavailable [address] + [address] [place] [address] UE Unavailable Unavailable Unavailable Peter, Mandy Unavailable [address] + [address] [place] [address] UE Unavailable Unavailable Unavailable Peter, Mandy Unavailable [address] + [address] [place] [address] UE Unavailable Unavailable Unavailable PETER, MANDY Unavailable [address] + [address] [place] [address] UE Unavailable Unavailable Unavailable Peter, Mandy Unavailable [address] + [address] [place] [address] UE Unavailable Unavailable Unavailable Peter, Mandy Unavailable [address] + [address] [place] [address] UE Unavailable Unavailable Unavailable Peter, Mandy Unavailable [address] + [address] [place] [address] UE Unavailable Unavailable Unavailable Peter, Mandy Unavailable [address] + [address] [place] [address] UE Unavailable Unavailable Unavailable Peter, Mandy Unavailable [address] + [address] [place] [address] UE Unavailable Unavailable Unavailable Peter, Mandy Unavailable [address] + [address] [place] [address] UE Unavailable Unavailable Unavailable PETER, MANDY Unavailable [address] + [address] [place] [address] UE Unavailable Unavailable Unavailable PETER, MANDY Unavailable [address] + [address] [place] [address] UE Unavailable Unavailable Unavailable PETER, MANDY Unavailable [address] + [address] [place] [address] UE Unavailable Unavailable Unavailable PETER, MANDY Unavailable [address] + [address] [place] [address] UE Unavailable Unavailable Unavailable PETER, MANDY Unavailable [address] + [address] [place] [address] UE Unavailable Unavailable Unavailable Peter, Mandy Unavailable [address] + [address] [place] [address] UE Unavailable Unavailable Unavailable PETER, MANDY Unavailable [address] + [address] [place] [address] UE Unavailable Unavailable Unavailable PETER, MANDY Unavailable [address] + [address] [place] [address] UE Unavailable Unavailable Unavailable PETER, MANDY Unavailable [address] + [address] [place] [address] UE Unavailable Unavailable Unavailable PETER, MANDY Unavailable [address] + [address] [place] [address] UE Unavailable Unavailable Unavailable PETER, MANDY Unavailable [address] + [address] [place] [address] UE Unavailable Unavailable Unavailable PETER, MANDY Unavailable [address] + [address] [place] [address] UE Unavailable Unavailable Unavailable Care Team Providers Name Role Phone Dr. Jr Somers Admitting Unavailable CORRECT INFO, NEEDED Referring Unavailable Dr. Nick Rm Attending Unavailable LI, FRANTZ Admitting Unavailable LI, FRANTZ Referring Unavailable Dr. Jacob Jauregui Attending Unavailable Velma Jimenez Attending Unavailable Barbara Velma Referring Unavailable Cebul III, Ivy Primary Care Unavailable Cebul III, Viy Primary Care Unavailable Haddad, Joe Admitting Unavailable Florentino, Charles Consulting Unavailable Amparo, Celinem Attending Unavailable Haddad, Joe Admitting Unavailable Haddad Joe Attending Unavailable Cebul III, Ivy Primary Care Unavailable Haddad, Joe Consulting Unavailable Haddad, Joe Admitting Unavailable Florentino, Charles Attending Unavailable Cebul III, Ivy Primary Care Unavailable Florentino, Stowell Consulting Unavailable Johnelfsunday, Ghasem Consulting Unavailable Velma Jimenez Attending Unavailable Cebul III, Ivy Referring Unavailable Cebul III, Ivy Primary Care Unavailable Cebul III, Ivy Primary Care Unavailable See Mariano Attending Unavailable Gelacio, Kerwin Admitting Unavailable Cebul III, Ivy Primary Care Unavailable Allie Pompa Consulting Unavailable Jacob Byrd Attending Unavailable Kerwin Brizuela Admitting Unavailable Jacob Byrd Attending Unavailable Cebul III, Fairlea Primary Care Unavailable Testrake, Allie Consulting Unavailable Jacob Byrd Consulting Unavailable AgyepongKerwin Admitting Unavailable JopperiJose Attending Unavailable Cebul III, Fairlea Primary Care Unavailable Testrake, Allie Consulting Unavailable Jopperi, Jose Consulting Unavailable Testrake, Allie Attending Unavailable Testrake, Allie Referring Unavailable Cebul III, Fairlea Primary Care Unavailable Saumyabuibeth, Velma Attending Unavailable CebulVelma Referring Unavailable Cebul III, Fairlea Primary Care Unavailable Ricki Leija Attending Unavailable Cebul, Velma Attending Unavailable Agyepong, Kerwin Admitting Unavailable Kittojimmie, Jacob Attending Unavailable Cebul III, Fairlea Primary Care Unavailable Testrake, Allie Consulting Unavailable Jacob Byrd Consulting Unavailable Agyepong, Kerwin Admitting Unavailable Kitmichelle, Jacob Attending Unavailable Cebul III, Fairlea Primary Care Unavailable Testrake, Allie Consulting Unavailable Jacob Byrd Consulting Unavailable Agsivakumarg, Kerwin Admitting Unavailable Kitmichelle, Jacob Attending Unavailable Cebul III, Fairlea Primary Care Unavailable Testrake, Allie Consulting Unavailable Jacob Byrd Consulting Unavailable Nilson Hlil Attending Unavailable JopperiJose Referring Unavailable Jopperi, Jose Admitting Unavailable Cebul III, Fairlea Primary Care Unavailable Testrake, Allie Consulting Unavailable JohnelfCeline brandm Attending Unavailable Velma Mckinley Consulting Unavailable Ashelfah, Ghasem Consulting Unavailable Jopperi, Jose Admitting Unavailable JopperiJose Attending Unavailable Cebul III, Fairlea Primary Care Unavailable Testrake, Allie Consulting Unavailable Jopperi, Jose Consulting Unavailable Jopperi, Jose Admitting Unavailable Cebul III, Fairlea Primary Care Unavailable Testrake, Allie Consulting Unavailable Johnelfsunday, Ghasem Attending Unavailable Velma Mckinley Consulting Unavailable Joe Haddad Admitting Unavailable JohnelfahMike Attending Unavailable Cebul III, Fairlea Primary Care Unavailable Charles Good Consulting Unavailable Johnelfsunday, Celinem Consulting Unavailable Agyepong, Kerwin Admitting Unavailable Agyepong, Kerwin Attending Unavailable AgKerwin robbins Referring Unavailable Cebul III, Fairlea Primary Care Unavailable Kerwin Brizuela Consulting Unavailable Charles Good Attending Unavailable Joe Haddad Referring Unavailable Joe Haddad Admitting Unavailable Ashelfah, Ghasem Attending Unavailable Cebul III, Ivy Primary Care Unavailable Charles Good Consulting Unavailable Ashelfah, Ghasem Consulting Unavailable Agyepong, Kerwin Admitting Unavailable Zachary, Jim Attending Unavailable Agyepong, Kerwin Referring Unavailable Cebul III, Ivy Primary Care Unavailable Zachary, Jim Consulting Unavailable Agyepong, Kerwin Admitting Unavailable Zachary, Jim Attending Unavailable Agyepong, Kerwin Referring Unavailable Cebul III, Ivy Primary Care Unavailable Zachary, Jim Consulting Unavailable Cebul III, Ivy Primary Care Unavailable Agyepong, Kerwin Admitting Unavailable Agyepong, Kerwin Referring Unavailable Zachary, Jim Attending Unavailable Cebul III, Ivy Primary Care Unavailable Steve Fong Attending Unavailable RICHARD TEMPLE Attending Unavailable ARNOLD GARRETT Admitting Unavailable MARE JORDAN Consulting Unavailable RICHARD TEMPLE Attending Unavailable RICHARD TEMPLE Referring Unavailable CEBUL, IVY Primary Care Unavailable DUMFORD III, LIVAN Consulting Unavailable Jorge GARRETT Admitting Unavailable ROXANNA ROUSE Consulting Unavailable POLI LANDEROS Consulting Unavailable CAITLYN HIDALGO Consulting Unavailable Jorge GARRETT Consulting Unavailable MARE JORDAN Consulting Unavailable Jorge GARRETT Attending Unavailable IMCA Referring Unavailable CEBUL, IVY Primary Care Unavailable Jorge GARRETT Attending Unavailable IMCA Referring Unavailable CEBUL, IVY Primary Care Unavailable CEBUL III, IVY Ambrosio Attending Unavailable TESTRAKE, ALLIE Attending Unavailable CEBUL III, IVY Ambrosio Referring Unavailable TESTRAKE, ALLIE Referring Unavailable TESTRAKE, ALLIE Referring Unavailable ANTHONY HIGH (NURSE PRACTITIONER ADULT) Attending Unavailable CEBUL III, IVY Ambrosio Referring Unavailable TESTRAKE, ALLIE Attending Unavailable TESTRAKE, ALLIE Referring Unavailable TESTRAKE, ALLIE Attending Unavailable TESTRAKE, ALLIE Referring Unavailable CANDICE STEVEN Attending Unavailable TESTRAKE, ALLIE Referring Unavailable TESTRAKE, ALLIE Referring Unavailable TESTRAKE, ALLIE Attending Unavailable TESTRAKE, ALLIE Referring Unavailable TESTRAKE, ALLIE Referring Unavailable TESTRAKE, ALLIE Referring Unavailable TESTRAKE, ALLIE Attending Unavailable TESTRAKE, ALLIE Referring Unavailable HIGH, ANTHONY S (NURSE PRACTITIONER ADULT) Attending Unavailable TESTRAKE, ALLIE Attending Unavailable TESTRAKE, ALLIE Referring Unavailable TESTRAKE, ALLIE Attending Unavailable CEBUL III, IVY A Attending Unavailable TESTRAKE, ALLIE Attending Unavailable TESTRAKE, ALLIE Referring Unavailable PROBLEMS PROBLEMS DATE TYPE CONDITION / CODE ATTENDING STATUS SOURCE 06/07/2018 Active Pain in left foot / NA Active [facility] M79.672(ICD-10) [facility] [place] [facility] 05/31/2018 Final diagnosis 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 Oscar Jauregui (discharge) unspecified / [facility] E78.5(ICD-10) [facility] 05/31/2018 Final diagnosis [facility] (current) Dr. Oscar Jauregui (discharge) use of insulin / [facility] Z79.4(ICD-10) [facility] 05/31/2018 Final diagnosis Prsnl hx of TIA Dr. Oscar Jauregui (discharge) (TIA), and cereb [facility] infrc w/o resid [facility] deficits / Z86.73(ICD-10) 05/31/2018 Final diagnosis Hypertensive heart Dr. Oscar Jauregui (discharge) disease with heart [facility] failure / [facility] I11.0(ICD-10) 05/31/[address] Oscar Jauregui (discharge) cardiomyopathy / [facility] I25.5(ICD-10) [facility] 05/31/2018 Final diagnosis [facility] (current) Dr. Oscar Jauregui (discharge) use of aspirin / [facility] Z79.82(ICD-10) [facility] 05/31/[address] Oscar Jauregui diagnosis disease with heart [facility] failure / [facility] I11.0(ICD-10) 05/31/2018 Final diagnosis Atelectasis / Dr. 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 Oscar Jauregui (discharge) mellitus without [facility] complications / [place] [facility] E11.9(ICD-10) 05/31/2018 Final diagnosis Presence of coronary Dr. Oscar Jauregui (discharge) angioplasty implant [facility] and graft / [place] [facility] Z95.5(ICD-10) 05/31/2018 Final diagnosis [facility] (current) Dr. Oscar Jauregui (discharge) use of [facility] antithrombotics/anti [facility] platelets / Z79.02(ICD-10) 05/31/2018 Final diagnosis Personal history of Dr. Oscar Jauregui (discharge) nicotine dependence [facility] / Z87.891(ICD-10) [facility] 05/31/2018 Final diagnosis Peripheral vascular Dr. Oscar Jauregui (discharge) disease, unspecified [facility] / I73.9(ICD-10) [facility] 05/31/2018 Final diagnosis Occlusion and Dr. Oscar Jauregui (discharge) stenosis of [facility] bilateral carotid [facility] arteries / I65.23(ICD-10) 05/31/2018 Final diagnosis Constipation, Dr. Oscar Jauregui (discharge) unspecified / [facility] K59.00(ICD-10) [facility] 05/31/2018 Final diagnosis Anemia, unspecified Dr. Oscar Jauregui (discharge) / D64.9(ICD-10) [facility] 05/31/2018 Final diagnosis Epistaxis / Dr. Oscar Jauregui (discharge) R04.0(ICD-10) [facility] 05/31/[address] Oscar Jauregui (discharge) alternating [facility] exotropia / [place] [facility] H50.34(ICD-10) 05/31/[address] Oscar Jauregui (discharge) strabismus / [facility] H50.9(ICD-10) [facility] 05/31/2018 Final diagnosis Other specified Dr. 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 Oscar Jauregui (discharge) hypotension / [facility] I95.1(ICD-10) [facility] 05/31/2018 Final diagnosis Dizziness and Dr. Oscar Jauregui (discharge) giddiness / [facility] R42(ICD-10) [facility] 05/31/2018 Final diagnosis Acquired absence of Dr. Oscar Jauregui (discharge) other left toe(s) / [facility] Z89.422(ICD-10) [facility] 05/31/2018 Final diagnosis Other visual Dr. sOcar Jauregui (discharge) disturbances / [facility] H53.8(ICD-10) [facility] 05/20/2018 Admitting Non-ST elevation Dr. Oscar Rm diagnosis (NSTEMI) myocardial [facility] I21.4(ICD-10) 05/20/2018 Final diagnosis Non-ST elevation Dr. Oscar Rm (discharge) (NSTEMI) myocardial [facility] I21.4([facility]-10) 05/20/2018 Final diagnosis Acute systolic Dr. Oscar Rm (discharge) (congestive) heart [facility] failure / [place] [facility] I50.21(ICD-10) 05/20/[address] Oscar Rm (discharge) posthemorrhagic [facility] anemia / D62(ICD-10) [place] [facility] 05/20/2018 Final diagnosis Type [address] Oscar Rm (discharge) diabetic peripheral [facility] / E11.52(ICD-10) 05/20/2018 Final diagnosis Gangrene, not Dr. Oscar Rm (discharge) elsewhere classified [facility] / I96(ICD-10) [place] [facility] 05/20/[address] Oscar Rm (discharge) hemor/hemtom of a [facility] circ sys org comp [place] Rep[facility] card cath / I97.410(ICD-10) 05/20/2018 Final diagnosis Allergy status to Dr. Oscar Rm (discharge) penicillin / [facility] Z88.0(ICD-10) [place] [facility] 05/20/2018 Final diagnosis Nicotine dependence, Dr. Oscar Rm (discharge) cigarettes, [facility] uncomplicated / [place] [facility] F17.210(ICD-10) 05/20/2018 Final diagnosis Acquired absence of Dr. Sujey [facility] (discharge) left finger(s) / [facility] Z89.022(ICD-10) [facility] Repository 05/20/[address] Sujey [facility] (discharge) periodontitis, [facility] generalized, severe [facility] Repository / K05.323(ICD-10) 05/20/2018 Final diagnosis Dental caries, Dr. Sujey [facility] (discharge) unspecified / [facility] K02.9(ICD-10) [facility] Repository 05/20/2018 Final diagnosis Retention of urine, Dr. Sujey [facility] (discharge) unspecified / [facility] R33.9(ICD-10) [facility] Repository 05/20/2018 Final diagnosis Other hypotension / Dr. Sujey [facility] (discharge) I95.89(ICD-10) [facility] Repository 05/11/2018 Unknown R07.9 - Chest pain, [place]helfah, Active [facility] unspecified / [facility] R07.9(ICD-10) Hospital Repository 05/30/2018 Unknown I50.21 - Acute Florentino, Stowell Active [facility] systolic Community (congestive) heart Hospital failure / Repository I50.21(ICD-10) 05/30/2018 Unknown I13.0 - Hypertensive Florentino, Stowell Active [place] heart and chronic Community kidney disease with Hospital heart failure and Repository stage 1 through stage 4 chronic kidney disease, or unspecified chronic kidney disease / I13.0(ICD-10) 05/30/2018 Unknown R74.8 - Abnormal Florentino, Charles Active [place] levels of other Community serum enzymes / Hospital R74.8(ICD-10) Repository 05/30/2018 Unknown Z82.49 - Family Florentino, Stowell Active [facility] history of ischemic Community heart disease and Hospital other diseases of Repository the circulatory system / Z82.49(ICD-10) 02/16/2018 Active Disruption of wound, NA Active [place] unspecified, initial Clinic Main encounter / [place] T81.30XA(ICD-10) Repository 01/07/2018 Active Enterocolitis due to WINDY, [facility] Clostridium [facility] Other difficile, not [place] specified as Repository recurrent / A04.72(ICD-10) 12/28/2017 Active Cutaneous abscess, WINDY, Active [place] unspecified / [facility] Other L02.91(ICD-10) [place] 12/28/2017 Active Type 2 diabetes WINDY, Active [place] mellitus with foot [facility] Other ulcer / [place] E11.621(ICD-10) Repository 12/28/2017 Active Non-pressure chronic WINDY, Active [place] ulcer of other part [facility] Other of left foot limited [place] to breakdown of skin Repository / L97.521(ICD-10) 12/25/2017 Active Tobacco use / WINDY, Active [place] Z72.0(ICD-10) [facility] Other [place] [facility] 12/23/2017 Active Hyperlipidemia, WINDY, Active [place] unspecified / [facility] Other E78.5(ICD-10) [place] [facility] 12/23/2017 Active Essential (primary) WINDY, Active [place] hypertension / [facility] Other I10(ICD-10) [place] [facility] 10/17/2017 Active Radiculopathy, WINDY, Active [place] lumbar region / [facility] Other M54.16(ICD-10) [place] [facility] 12/21/2017 Active Other acute WINDY, Active [place] osteomyelitis, left [facility] Other ankle and foot / [place] M86.172(ICD-10) Repository 12/21/2017 Active Type 2 diabetes WINDY, Active [place] mellitus with [facility] Other unspecified [place] complications / Repository E11.8(ICD-10) 12/21/2017 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, 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 / [facility] Other Z79.4(ICD-10) [place] [facility] 12/21/2017 Active Peripheral vascular WINDY, Active [place] disease, unspecified [facility] Other / I73.9(ICD-10) [place] [facility] 01/07/2018 Admitting Unknown / WINDY, Active [facility] diagnosis UNK(Unknown) [facility] Repository 02/07/2018 Unknown I96 - Gangrene, not Ricki Leija elsewhere classified Community / I96(ICD-10) Hospital Repository 02/07/2018 Unknown I10 - Essential Ricki Leijaoster (primary) Community hypertension / Hospital I10(ICD-10) Repository 02/07/2018 Unknown E78.5 - Ricki Leija Active [facility] Hyperlipidemia, Community unspecified / Hospital E78.5(ICD-10) Repository 02/07/2018 Unknown Z89.421 - Acquired Ricki Leija Active [place] absence of other Community right toe(s) / Hospital Z89.421(ICD-10) Repository 02/07/2018 Unknown I25.10 - Ricki Leija Active [facility] Atherosclerotic Community heart disease of Hospital [place] coronary Repository artery without angina pectoris / I25.10(ICD-10) 02/07/2018 Unknown F17.200 - Nicotine Ricki Leija Active [facility] dependence, Community unspecified, Hospital uncomplicated / Repository F17.200(ICD-10) 04/20/2015 Active Unspecified sequelae CANDICE STEVEN Active [place] of cerebral Clinic Main infarction / [place] I69.30(ICD-10) Repository 03/18/2014 Active Type 2 diabetes CANDICE STEVEN Active [place] mellitus with Clinic Main diabetic nephropathy [place] / E11.21(ICD-10) Repository 01/28/2010 Active Cerebral infarction, CANDICE STEVEN Active [place] unspecified / Clinic Main I63.9(ICD-10) [place] [facility] 11/24/2017 Active Encounter for other CANDICE STEVEN Active [place] preprocedural Clinic Main examination / [place] Z01.818(ICD-10) Repository 11/20/2017 Active Gangrene, not TESTRAKE, Active [place] elsewhere classified [facility] Main / I96(ICD-10) [place] [facility] 11/22/2017 Active Other specified TESTRAKE, Active [place] postprocedural [facility] Main states / [place] Z98.890(ICD-10) Repository 11/01/2017 Active Type 2 diabetes NA Active [place] mellitus with Clinic Main diabetic neuropathy, [place] unspecified / Repository E11.40(ICD-10) 11/01/2017 Active Unknown / TESTRAKE, Active [place] UNK(Unknown) [facility] Main [place] [facility] PROCEDURES PROCEDURES DATE CODE DESCRIPTION STATUS SOURCE 05/18/2018 [id number](ICD10- 566300Q Completed [facility] Repository 05/18/2018 T125I7K(ICD10- R861Q0O Completed [facility] Repository 05/18/2018 8C072B3(ICD10- 8W134D4 Completed [facility] Hospit[facility] Repository 05/18/2018 [id number](ICD10- G3652KS Completed [facility] Repository 05/17/2018 32V555W(ICD10- 50S578L Completed [facility] Hospit[facility] Repository 05/17/2018 0WJHCJ9(ICD10- 0XWTBG0 Completed [facility] Hospitals Repository 05/17/2018 4OBPUP8(ICD10- 3KDQOQ4 Completed [facility]) Hospitals Repository RESULTS RESULTS OBSOLETE Observed: 06/19/2018 Status: COMPLETED Source: [place] 12:00 AM [facility] REPOSITORY Refill (FAMPWS) DAVINA GREEN ([id number]) 1955 F Date Time Provider Department 06/19/18 [facility] During your visit today, we recorded the following information about you: Renetta Everett Psr 06/19/2018 2:27 PM Signed Patient phones requesting refills as follows: Pending Prescriptions Disp Refills LORATADINE 10 MG TABLET 30 tablet 12 Sig: Take 1 tablet by mouth once daily as needed. FOR ALLERGY SYMPTOMS VANESSA: No Please review and advise. Renetta Everett Psr Clarita Ibarra MA, MA 06/19/2018 2:50 PM Signed Patient has been identified by name and date of : Yes Pharmacy phones for refill(s): Pending Prescriptions Disp Refills LORATADINE 10 MG TABLET 30 tablet 12 Sig: Take 1 tablet by mouth once daily as needed. FOR ALLERGY SYMPTOMS VANESSA: No Last Refill:06/10/16 Qty:30 Refills:12 Next Scheduled Office Visit:none Last Office Visit:01/23/18 BENTLEY Patricio APRN.CNP 06/19/2018 5:29 PM Signed Script sent. Ary Vora APRN.CNP Allergies As of Date: 06/19/2018 Noted Allergy Reaction PENICILLINS 01/28/2010 4 - Hives 7 - Swelling Comments: Updated 12/22/[address] Chaparrita Hidalgo PRAVACHOL (PRAVASTATIN SODIUM) 03/04/2010 5 - Intolerance Comments: Fatigue, loss of appetite. PROZAC (FLUOXETINE HCL) 08/07/2015 1 - Mental Status Change Comments: sleepiness Date Reviewed: 06/07/2018 Reviewed by: Kayley Doyle Ma - Fully Assessed Reason for Visit: Refill Request [94] Order(s):loratadine (CLARITIN) 10 mg tabletTake 1 tablet by mouth once daily as needed. FOR ALLERGY SYMPTOMSDisp: 30 tabletRfl: 12 Prescriptions as of 06/19/2018 Sig: LORATADINE 10 MG TABLET Take 1 tablet by mouth once d* ASPIRIN 81 MG TABLET,DELAYED * Take 1 tablet by mouth once d* OMEGA 7-GDP-PQT-FISH OIL 1,00* Take 2 capsules by mouth twic* CLOPIDOGREL 75 MG TABLET Take 1 tablet by mouth once d* CARVEDILOL 3.125 MG TABLET Take 1 tablet by mouth twice * FUROSEMIDE 40 MG TABLET Take 1 tablet by mouth once d* BUSPIRONE 5 MG TABLET Take 1 tablet by mouth every * ALBUTEROL SULFATE HFA 90 MCG/* Inhale 2 Puffs as instructed * DIPHENHYDRAMINE 25 MG TABLET Take 2 tablets by mouth every* SUMATRIPTAN 50 MG TABLET take 1 tablet at onset of bettie* LISINOPRIL 30 MG TABLET Take 1 tablet by mouth once d* IBUPROFEN 600 MG TABLET Take 1 tablet by mouth every * MOMETASONE 0.1 % TOPICAL CREAM Apply 1 application to affect* BUSPIRONE 10 MG TABLET Take 1 tablet by mouth three * ATORVASTATIN 40 MG TABLET Take 1 tablet by mouth daily * INSULIN GLARGINE (U-100) 100 * Inject 18 Units subcutaneousl* INSULIN LISPRO (U-100) 100 UN* Inject 6 Units subcutaneously* PEN NEEDLE, DIABETIC 31 GAUGE* Use one needle with each insu* ERGOCALCIFEROL (VITAMIN D2) 5* Take 1 capsule by mouth once * COMPOUNDED PRESCRIPTION Grab Bar Dx: AMLODIPINE 10 MG TABLET Take 1 tablet by mouth once d* BLOOD SUGAR DIAGNOSTIC STRIPS Test blood sugar(s) 4 times d* LANCETS 28 GAUGE Test blood sugar(s) 4 times d* ACETAMINOPHEN ER 650 MG TABLE* Take 2 tablets by mouth twice* Problem List As Of Date 06/19/2018 Noted Resolved Stroke/Cerebrovascular Accident [I63.9] INVALID FOR* Lumbago-Sciatica due to Displacement of Lumbar *INVALID FOR* DDD (Degenerative Disc Disease), Lumbar [M51.36]INVALID FOR* Cannabis Abuse [F12.10] INVALID FOR* Lichen planus [L43.9] INVALID FOR* More... Lumbar facet arthropathy [M47.816] INVALID FOR* Essential hypertension, benign [I10] INVALID FOR* More... Nasal obstruction [J34.89] INVALID FOR* Myofascial pain [M79.18] INVALID FOR* Diabetic nephropathy with proteinuria (HCC) [E1*INVALID FOR* Hyperlipidemia with target LDL less than 100 [E*INVALID FOR* More... History of cerebrovascular accident (CVA) with *INVALID FOR* More... 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 Diabetic ulcer of toe of left foot associated w*INVALID FOR* More... Lumbar radiculopathy [M54.16] INVALID FOR* More... Gangrene (HCC) [I96] INVALID FOR*12/25/2017 More... Wound abscess [SQS7959] INVALID FOR* More... Depression [F32.9] INVALID FOR* More... Diabetes (HCC) [E11.9] INVALID FOR* More... Tobacco abuse [Z72.0] INVALID FOR* More... Abscess [L02.91] INVALID FOR*12/25/2017 More... Foot abscess, left [L02.612] INVALID FOR* Penicillin allergy [Z88.0] INVALID FOR* C. difficile diarrhea [A04.72] INVALID FOR*01/07/2018 More... Hypokalemia [E87.6] INVALID FOR*12/31/2017 More... Malnutrition of moderate degree (HCC) [E44.0] INVALID FOR*01/08/2018 More... Normocytic anemia [D64.9] INVALID FOR* More... Electrolyte imbalance [E87.8] INVALID FOR*01/08/2018 More... CKD (chronic kidney disease), stage III (HCC) [*INVALID FOR* Prescriptions ordered this encounter Disp Refills Start End LORATADINE 10 MG TABLET 30 t* 12 06/19/2018 Route: ORAL Sig: Take 1 tablet by mouth once daily as needed. FOR ALLERGY SYMPTOMS Encounter Status:Closed by ARY VORA CNP on 06/19/18 DISCHARGE SUMMARY Observed: 06/14/2018 Status: F Source: [place] 6:43 PM [facility] REPOSITORY [facility] Medical Records Department [address] [place] [address] [place] [address] Discharge Summary 06/13/18 1114 MR#: [id number] Acct: [id number] Name: DAVINA GREEN Rep #: [id number] : 1955 62 From: Jim Sharma MD PCP: Ivy Jimenez III, MD Status: DIS IN Y Location: [place] [address] Discharge Date and Diagnosis Date of Admission: 06/11/18 Date of Discharge: 06/13/18 - Primary Discharge Diagnosis Active and Suspected Problems (Last Reviewed 06/11/18 @ 05:13 by Kerwin Brizuela MD) Flash pulmonary edema (Acute) Acute exacerbation of CHF (congestive heart failure) (Acute) - Secondary Discharge Diagnosis Chronic Problems (Last Reviewed 06/11/18 @ 05:13 by Kerwin Brizuela MD) Chronic ulcer of buttock (Chronic) Diabetes mellitus (Chronic) Hypertension (Chronic) History of CVA (cerebrovascular accident) (Chronic) Tobacco abuse (Chronic) PVD (peripheral vascular disease) (Chronic) Carotid arterial disease (Chronic) Hyperlipidemia (Chronic) Hospital Course and Treatment Summary of Care Provided: [] his is a 62-year-old female with history of coronary artery disease status post 3 stents, chronic systolic heart failure, NYHA class III, CKD stage III and COPD is being admitted in ICU with sudden onset of shortness of breath that woke her up about few hours before admission. Shortness of breath associated with substernal chest pain which is localized. Patient had cardiac cath on 05/09/2018 found to three-vessel disease with grade 3 MR with EF 30%, inferior basal akinesis and anterior hypokinesis. She had PCI with 3 stents done in [facility] on 05/09/2018. Chest x-ray showed cardiomegaly with pulmonary congestion prominence of hilar region. EKG in ED showed sinus tachycardia at 129 bpm with previous septal infarct. 1. Acute exacerbation of chronic systolic and diastolic combined heart failure with flash pulmonary edema and grade 3 mitral regurgitation, valvular heart disease: On noninvasive positive pressure ventilation, FiO2 35% at 12/6. Patient tolerated BiPAP well and feels much better. Lower extremities edematous and has Alejandra wrap bandage. On medical management with Lasix 40 mg daily lisinopril, Coreg, aspirin and Plavix and statin. 2. Elevated troponins: 0.058, 0.071, most clearly from CHF exacerbation. Denies chest pain. Dizziness, exact etiology unclear. Orthostatic vitals are negative. Patient was given prescription of Antivert. Advised follow-up with ENT to rule out inner ear cause. Patient does not have other cerebellar signs including dysarthria, ataxia, nystagmus. 3. Coronary artery disease status post three-vessel disease status post PCI: Obtain medical record from Coumadin clinic to get more information on PCI. On medical management. Aspirin, Plavix, high intensity statin, metoprolol and lisinopril continued.She is scheduled for elective PCI in [facility] this month. Medical record from [facility] reviewed. As per [facility] note, she was hospitalized from 05/10/2018 to 05/17/2018 for CABG evaluation. At that time echo was done and shows EF 37% with diastolic dysfunction. Chest x-ray showed venous congestion. 4. Diabetes mellitus type 2: On Accu-Cheks. 5. CKD stage III 6. COPD: Currently seems her symptoms mainly due to heart failure exacerbation not from COPD exacerbation 7. DVT prophylaxis: On subcutaneous heparin Discharge medication reconciliation done. Discharge follow- up instructions completed. Discharge process discussed with the patient and all questions were answered to patient's satisfaction. Patient advised to follow-up with the [facility] marketing account executive, Dr. Monteiro for elective PCI. Total time spent, exact 35 minutes on discharge meds reconciliation, examination, review of imaging and blood test and discussion with the patient on follow-up instructions. Subjective: Patient shortness of breath is much better. No fever. Orthostatic is negative. Blood pressure remains similar and different posture of lying, sitting and standing. Complaint of dizziness but seems from anxiety no significant obvious etiology. Objective: General: Alert, Oriented x3, Cooperative HEENT: Atraumatic, PERRLA, EOMI, Normocephalic. No nystagmus Neck: Supple, No JVD, Negative Carotid Bruits Lungs: Diminished - Air entry is diminished in bilateral lung bases, bibasilar occasional rales, Shortness of breath improved Cardiovascular: Regular rate, Regular Rhythm, Normal S1, Normal S2, Murmur - Systolic murmur present over left lower sternal border and apex Abdomen: Bowel Sounds Present, Soft, Non Tender, Non-Distended Extremities: Capillary Refill Less than 3 Seconds, Edema Skin: No rashes, No breakdown Musculoskeletal: No Tenderness to Palpation of Joints or Extremities, Arthritic Changes, Muscle Wasting Neurological: Cranial nerves II-XII grossly intact Psych/Mental Status: Normal Affect, Appropriate - Physical Exam Vital Signs Temp Pulse Resp BP Pulse Ox 98.3 F 84 18 95/62 93 06/13/18 02:45 06/13/18 07:32 06/13/18 07:25 06/13/18 07:23 06/13/18 07:49 Oxygen Flow Rate (L/min) 1 Oxygen Delivery Method Room Air Weight: 139 lb 15.896 oz Body Mass Index (BMI) 28.5 Intake and Output for Last 24 Hours Intake Total 570 / 570 1050 / 1050 240 / 240 Output Total 3150 / 3150 300 / 300 100 / 100 Balance -2580 / -2580 750 / 750 140 / 140 Microbiology Past 72 Hours 06/11/18 05:10 Respiratory Panel (PCR) - Final Mucosa - Nose Laboratory Tests Past 24 Hrs Sodium 137 139 Potassium 3.7 4.2 Chloride 104 104 Carbon Dioxide 27.0 27.0 Anion Gap 6 8 BUN 35 H 30 H Creatinine 1.44 H 1.56 H POC Glucose POC Glucose 125 H 126 H 136 H POC Glucose 166 H Discharge Activity: May Not Drive Call your doctor if you observe: Fever of 101 or Higher, Shortness of breath, Dizziness, Fainting spells, Swelling in the ankles, Chest pain, Increased palpitations (irregular heartbeat) Home Medications: Medications to take at Discharge Mometasone Furoate [Elocon] 50 gm TP DAILY PRN 12/10/17 Acetaminophen [Tylenol Tablet] 650 mg PO Q6H PRN PRN tablet 12/14/17 Insulin Lispro [Humalog KwikPen] 6 unit SQ 0700,1200,1700 12/20/17 Atorvastatin Calcium [Lipitor] 40 mg PO QHS 05/08/18 Sumatriptan Succinate [Imitrex] 50 mg PO DAILY PRN 05/08/18 Aspirin [Aspirin EC] 81 mg PO DAILY 05/24/18 Carvedilol 3.125 mg PO BID 05/24/18 Clopidogrel Bisulfate [Clopidogrel] 75 mg PO DAILY 05/24/18 [place]-3 Fatty Acids [[place]-3] 2 cap PO BID 05/24/18 Docusate Sodium 100 mg PO BID PRN PRN 06/11/18 Ergocalciferol (Vitamin D2) [Vitamin D2] 50,000 unit PO QWEEK 06/11/18 Furosemide 40 mg PO DAILY 06/11/18 Sodium Chloride 0.65% [Celoron Nasal [place]] 1 spray NASAL PRN PRN 06/11/18 traMADol [Ultram] 50 mg PO Q8H PRN PRN 06/11/18 Albuterol Inhaler [Ventolin Hfa] 2 puff INHALATION Q4H PRN PRN #1 inhaler 06/13/18 Insulin Glargine,Hum.rec.anlog [Lantus] 10 unit SQ QHS #0 06/13/18 Ipratropium/Albuterol Sulfate [Duoneb] 3 ml INHALATION Q6H #30 ampul.neb 06/13/18 busPIRone [Buspar] 5 mg PO TID #0 06/13/18 Following Prescrptions Were Given to Patient: Albuterol Inhaler [Ventolin Hfa] 2 puff INHALATION Q4H PRN PRN #1 inhaler PRN Reason: sob Ipratropium/Albuterol Sulfate [Duoneb] 3 ml INHALATION Q6H #30 ampul.[facility] Primary Care Physician: Ivy Jimenez III, MD [Primary Care Provider] - Please follow up with your Primary Care Physician in: in 2 week Please Follow Up With: Charles Good MD When: in 3-4 weeks Medical Necessity - Tobacco Use Smoking Status: Former smoker Tobacco Use: Cigarettes Meaningful Use Info Meaningful Use Diagnoses (Choose all that apply): CHF - CHF ALEJANDRA/ARB ordered at discharge?: Yes Documented LVEF (%): 35 Code Visit Inpatient E AND M: 93402 Disch Hosp 06/14/18 5384 <Electronically signed by Jim Sharma MD> Date Jim Sharma MD Cosigner Signature (if applicable): Date CC: Ivy Jimenez III, MD; Jim Sharma MD Signed PROGRESS Observed: 06/13/2018 Status: COMPLETED Source: [place] 2:[address] [facility] REPOSITORY HNO ID: [id number] Author: Ivy Jimenez III Service: (none) Author Type: Physician Type: Progress Notes Filed: 06/13/2018 2:49 PM Note Text: Noted all Ivy Jimenez III, MD, [facility] PRO[facility] Observed: 06/13/2018 Status: COMPLETED Source: [place] 1:[address] [facility] [place] REPOSITORY HNO ID: [id number] Author: Napoleon Pizarro (Rn) Service: (none) Author Type: Registered Nurse Type: Progress Notes Filed: 06/13/2018 2:49 PM Note Text: TRANSITION CARE MANAGEMENT (TCM) FOLLOW-UP NOTE Provider Action/FYI 1. Call received from [facility] Raj Sigala RN, CM who reports anticipate discharge 06/13/18, [facility] did receive [facility] 05/24/18-05/31/18 Discharge summary, [facility] hospitalist did receive and review the D/C summary with medication changes noted. 2. Pt will have [facility], orders for resumption of Care are written, Pt had been seen by [facility] SN. 3. Pt has a repeat Cath scheduled for 06/19/18 at [facility] ( scheduled by previous Adm) Pt became anxious when info discussed by [facility] Inpt CM, Pt c/o of vertigo at [facility] while Inpt 06/13/18, Orthostatics negative, Antivert was given per Raj Sigala RN, CM 4. [facility] Discharging Physician is ordering a nebulizer, prescription was sent to [facility], [place] CM asked to camacho. 5. Wall Taper Helper provided reminder f/u appt with Dr. Jimenez 06/14/18 at 3:40, (previously scheduled) provided Wall Taper Helper's phone number, for questions or concerns, Raj Sigala CM will provide info to Pt/ family Patient identified by name and date of : YES Spoke to [facility] Raj Franco RN, CM Summary: Anticipate [facility] Discharge 06/13/18 Wall Taper Helper plan for next outreach: Follow for Care Needs Signature Juarez Bender RN June 13, 2018 BEDSIDE GLUCOSE Collected: 06/13/2018 Status: F Source: [place] 11:25 AM [facility] REPOSITORY TYPE CODE TESTS RESULT OUT OF REFERENCE UNITS RANGE LAB L501.080 70-110 mg/dL High BEDSIDE GLU 119 Result Comment: MANAGEMENT OF PATIENT CARE PER NURSING PROTOCOL Performed By: #### L501.080 #### [facility] Point of Care [address] [facility] [place] [address] DISCHARGE INSTRUCTION Observed: 06/13/2018 Status: F Source: [place] 9:14 AM [facility] REPOSITORY [facility] Medical Records Department [address] [place] [address] Instructions for Home/Discharge Instructions 06/13/18 0856 MR#: [id number] Acct: [id number] Name: DAVINA GREEN Rep #: [id number] : 1955 62 From: Jim Sharma MD PCP: Ivy Jimenez III, MD Status: ADM IN - Discharge Diagnoses Current Active Problems: Current Active and Chronic Problems (Last Reviewed 06/11/18 @ 05:13 by Kerwin Brizuela MD) Flash pulmonary edema (Acute) Acute exacerbation of CHF (congestive heart failure) (Acute) You will use the following diet at home:: Calorie/Carbohydrate Controlled (specify 1200, 1400, etc) - 1800 ADA diet, Cardiac Your food should be the consistency of: Regular Discharge Activity: May Not Drive Call your doctor if you observe: Fever of 101 or Higher, Shortness of breath, Dizziness, Fainting spells, Swelling in the ankles, Chest pain, Increased palpitations (irregular heartbeat) Additional Instructions: F/U for scheduled PCI with [facility], Dr Keith Allergies/Adverse Reactions: Allergies Penicillins Allergy (Severe, Verified 05/24/18 06:43) Swelling tolerated keflex in past with no issue Medications to take at Discharge Mometasone Furoate [Elocon] 50 gm TP DAILY PRN 12/10/17 Acetaminophen [Tylenol Tablet] 650 mg PO Q6H PRN PRN tablet 12/14/17 Insulin Lispro [Humalog KwikPen] 6 unit SQ 0700,1200,1700 12/20/17 Atorvastatin Calcium [Lipitor] 40 mg PO QHS 05/08/18 Sumatriptan Succinate [Imitrex] 50 mg PO DAILY PRN 05/08/18 Aspirin [Aspirin EC] 81 mg PO DAILY 05/24/18 Carvedilol 3.125 mg PO BID 05/24/18 Clopidogrel Bisulfate [Clopidogrel] 75 mg PO DAILY 05/24/18 [place]-3 Fatty Acids [[place]-3] 2 cap PO BID 05/24/18 Docusate Sodium 100 mg PO BID PRN PRN 06/11/18 Ergocalciferol (Vitamin D2) [Vitamin D2] 50,000 unit PO QWEEK 06/11/18 Furosemide 40 mg PO DAILY 06/11/18 Sodium Chloride 0.65% [Celoron Nasal [place]] 1 spray NASAL PRN PRN 06/11/18 traMADol [Ultram] 50 mg PO Q8H PRN PRN 06/11/18 Albuterol Inhaler [Ventolin Hfa] 2 puff INHALATION Q4H PRN PRN #1 inhaler 06/13/18 Insulin Glargine,Hum.rec.anlog [Lantus] 10 unit SQ QHS #0 06/13/18 Ipratropium/Albuterol Sulfate [Duoneb] 3 ml INHALATION Q6H #30 ampul.neb 06/13/18 busPIRone [Buspar] 5 mg PO TID #0 06/13/18 The following prescriptions were given: Albuterol Inhaler [Ventolin Hfa] 2 puff INHALATION Q4H PRN PRN #1 inhaler PRN Reason: sob Primary Care Physician: Ivy Jimenez III, MD [Primary Care Provider] - Please follow up with your Primary Care Physician in: in 2 week Test Results: Test results from this visit will be discussed in further detail at your follow-up appointment, if applicable. Please Follow Up With: Charles Good MD When: in 3-4 weeks 06/13/18 0914 <Electronically signed by Jim Sharma MD> Date Jim Sharma MD CC: Ivy Jimenez III, MD Signed BEDSIDE GLUCOSE Collected: 06/13/2018 Status: F Source: [place] 7:10 AM [facility] REPOSITORY TYPE CODE TESTS RESULT OUT OF REFERENCE UNITS RANGE LAB L501.080 70-110 mg/dL High BEDSIDE GLU 125 Result Comment: MANAGEMENT OF PATIENT CARE PER NURSING PROTOCOL Performed By: #### L501.080 #### [facility] Point of [place] [address] BASIC METABOLIC Collected: 06/13/2018 Status: F Source: [place] PROFILE (BMP) 5:45 AM [facility] REPOSITORY TYPE CODE TESTS RESULT OUT OF RANGE REFERENCE UNITS LAB L501.0100 74-106 mg/dL High GLU 128 Result Comment: Fasting Glucose result greater than or equal to 126 mg/dL suggests DIABETES MELLITUS per A.D.A. criteria. Please note revised GLUCOSE reference range effective 2017. LAB L501.1000 7-18 mg/dL High BUN 30 LAB L501.1100 0.55-1.02 mg/dL High CREAT,SERUM 1.56 Result Comment: The validity of the calculated GFR AND GFRAA in patients over 70 years has not been determined. Clinical correlation is essential. LAB L501.1110 >60 mL/min Low EST GFR 36 Result Comment: Non- GFR Calc LAB L501.1115 >60 mL/min Low EST GFR - AA 43 Result Comment: GFR Calc LAB L501.1255 ml/min Normal Estimated CRCL 26.86 LAB L501.1300 10-20 RATIO Normal BUN/CRE 19.2 LAB L501.2200 8.5-10 mg/dL Low .1 CA 8.2 LAB L501.5300 136-14 mmol/L Normal 5 NA 139 LAB L501.5600 3.5-5. mmol/L Normal 1 K 4.2 LAB L501.5900 98-107 mmol/L Normal CL 104 LAB L501.6100 21.0-3 mmol/L Normal 2.0 CO2 27.0 LAB L501.6200 5-15 Normal GAP 8 Performed By: #### L500.2500 #### [facility] [address] [place], [address] BEDSIDE GLUCOSE Collected: 06/13/2018 Status: F Source: [place] 12:46 AM [facility] REPOSITORY TYPE CODE TESTS RESULT OUT OF REFERENCE UNITS RANGE LAB L501.080 70-110 mg/dL High BEDSIDE GLU 126 Result Comment: MANAGEMENT OF PATIENT CARE PER NURSING PROTOCOL Performed By: #### L501.080 #### [facility] Point of Care [address] [place] [address] CNPTOUTREACH Observed: 06/13/2018 Status: COMPLETED Source: [place] 12:00 AM [facility] REPOSITORY Patient Outreach (FAMPWS) DAVINA GREEN ([id number]) 1955 F Date Time Provider Department 06/13/18 NAPOLEON PIZARRO (RN) FAMPWS During your visit today, we recorded the following information about you: Juarez Bender RN 06/13/2018 2:49 PM Signed TRANSITION CARE MANAGEMENT (TCM) FOLLOW-UP NOTE Provider Action/FYI 1. Call received from [facility] Raj Sigala RN CM who reports anticipate discharge 06/13/18, [facility] CM did receive [facility] 05/24/18- 05/31/18 Discharge summary, [facility] hospitalist did receive and review the D/C summary with medication changes noted. 2. Pt will have [facility], orders for resumption of Care are written, Pt had been seen by [facility] SN. 3. Pt has a repeat Cath scheduled for 06/19/18 at [facility] ( scheduled by previous Adm) Pt became anxious when info discussed by [facility] Inpt CM, Pt c/o of vertigo at [facility] while Inpt 06/13/18, Orthostatics negative, Antivert was given per Raj Sigala RN CM 4. [facility] Discharging Physician is ordering a nebulizer, prescription was sent to [facility], Inpt CM asked to camacho. 5. Wall Taper Helper provided reminder f/u appt with Dr. Jimenez 06/14/18 at 3:40, (previously scheduled) provided Wall Taper Helper's phone number, for questions or concerns, Raj Sigala CM will provide info to Pt/ family Patient identified by name and date of : YES Spoke to [facility] Raj Franco RN, CM Summary: Anticipate [facility] Discharge 06/13/18 Wall Taper Helper plan for next outreach: Follow for Care Needs Signature Juarez Bender RN June 13, 2018 Ivy Jimenez III MD 06/13/2018 2:49 PM Signed Noted all Ivy Jimenez III, MD, FAAFP Allergies As of Date: 06/13/2018 Noted Allergy Reaction PENICILLINS 01/28/2010 4 - Hives 7 - Swelling Comments: Updated 12/22/[address] Chaparrita Hidalgo PRAVACHOL (PRAVASTATIN SODIUM) 03/04/2010 5 - Intolerance Comments: Fatigue, loss of appetite. PROZAC (FLUOXETINE HCL) 08/07/2015 1 - Mental Status Change Comments: sleepiness Date Reviewed: 06/07/2018 Reviewed by: Kayley Doyle Ma - Fully Assessed Reason for Visit: Transition Of Care [4074] Cmt: Anticipate [facility] 06/13/18 Reason For Visit History Recorded Prescriptions as of 06/13/2018 Sig: ASPIRIN 81 MG TABLET,DELAYED * Take 1 tablet by mouth once d* OMEGA 4-IER-PIM-FISH OIL 1,00* Take 2 capsules by mouth twic* CLOPIDOGREL 75 MG TABLET Take 1 tablet by mouth once d* CARVEDILOL 3.125 MG TABLET Take 1 tablet by mouth twice * FUROSEMIDE 40 MG TABLET Take 1 tablet by mouth once d* BUSPIRONE 5 MG TABLET Take 1 tablet by mouth every * ALBUTEROL SULFATE HFA 90 MCG/* Inhale 2 Puffs as instructed * DIPHENHYDRAMINE 25 MG TABLET Take 2 tablets by mouth every* SUMATRIPTAN 50 MG TABLET take 1 tablet at onset of bettie* LISINOPRIL 30 MG TABLET Take 1 tablet by mouth once d* IBUPROFEN 600 MG TABLET Take 1 tablet by mouth every * MOMETASONE 0.1 % TOPICAL CREAM Apply 1 application to affect* BUSPIRONE 10 MG TABLET Take 1 tablet by mouth three * ATORVASTATIN 40 MG TABLET Take 1 tablet by mouth daily * INSULIN GLARGINE (U-100) 100 * Inject 18 Units subcutaneousl* INSULIN LISPRO (U-100) 100 UN* Inject 6 Units subcutaneously* PEN NEEDLE, DIABETIC 31 GAUGE* Use one needle with each insu* ERGOCALCIFEROL (VITAMIN D2) 5* Take 1 capsule by mouth once * COMPOUNDED PRESCRIPTION Grab Bar Dx: AMLODIPINE 10 MG TABLET Take 1 tablet by mouth once d* BLOOD SUGAR DIAGNOSTIC STRIPS Test blood sugar(s) 4 times d* LANCETS 28 GAUGE Test blood sugar(s) 4 times d* ACETAMINOPHEN ER 650 MG TABLE* Take 2 tablets by mouth twice* Problem List As Of Date 06/13/2018 Noted Resolved Stroke/Cerebrovascular Accident [I63.9] INVALID FOR* Lumbago-Sciatica due to Displacement of Lumbar *INVALID FOR* DDD (Degenerative Disc Disease), Lumbar [M51.36]INVALID FOR* Cannabis Abuse [F12.10] INVALID FOR* Lichen planus [L43.9] INVALID FOR* More... Lumbar facet arthropathy [M47.816] INVALID FOR* Essential hypertension, benign [I10] INVALID FOR* More... Nasal obstruction [J34.89] INVALID FOR* Myofascial pain [M79.18] INVALID FOR* Diabetic nephropathy with proteinuria (HCC) [E1*INVALID FOR* Hyperlipidemia with target LDL less than 100 [E*INVALID FOR* More... History of cerebrovascular accident (CVA) with *INVALID FOR* More... 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 Diabetic ulcer of toe of left foot associated w*INVALID FOR* More... Lumbar radiculopathy [M54.16] INVALID FOR* More... Gangrene (HCC) [I96] INVALID FOR*12/25/2017 More... Wound abscess [QWL3976] INVALID FOR* More... Depression [F32.9] INVALID FOR* More... Diabetes (HCC) [E11.9] INVALID FOR* More... Tobacco abuse [Z72.0] INVALID FOR* More... Abscess [L02.91] INVALID FOR*12/25/2017 More... Foot abscess, left [L02.612] INVALID FOR* Penicillin allergy [Z88.0] INVALID FOR* C. difficile diarrhea [A04.72] INVALID FOR*01/07/2018 More... Hypokalemia [E87.6] INVALID FOR*12/31/2017 More... Malnutrition of moderate degree (HCC) [E44.0] INVALID FOR*01/08/2018 More... Normocytic anemia [D64.9] INVALID FOR* More... Electrolyte imbalance [E87.8] INVALID FOR*01/08/2018 More... CKD (chronic kidney disease), stage III (HCC) [*INVALID FOR* Encounter Status:Closed by IVY JIMENEZ III, MD on 06/13/18 12 LEAD ELECTROCARDIOGRAM Observed: 06/12/2018 Status: F Source: [place] 5:14 PM [facility] REPOSITORY [facility] Cardiovascular Services [address] [place] [address] [id number] 12 Lead EKG 06/11/18226 MR#: [id number] Acct: [id number] Name: DAVINA GREEN Rep #: [id number] : 1955 62 From: Charles Good MD Attending Dr: Jim Sharma MD Status: ADM IN Ordering Dr: See Garcia MD Date: 06/11/18 Location: [facility] Sex: F C Admitted: 06/11/18 Test Reason : Blood Pressure : / mmHG Vent. Rate : 129 BPM Atrial Rate : 129 BPM P-R Int : 120 ms QRS Dur : 082 ms QT Int : 390 ms P-R-T Axes : 060 073 067 degrees QTc Int : 571 ms Sinus tachycardia Low voltage QRS Septal infarct , age undetermined Abnormal ECG Confirmed by CHARLES GOOD MD ([id number]), editorial director RAYMUNDO LEIJA ([id number]) on 06/12/2018 5:13:59 PM Referred By: Kerwin Brizuela Confirmed By:CHARLES GOOD MD 06/12/18 1714 Date Charles Good MD CC: Ivy Jimenez III, MD; Kerwin Brizuela MD; See Garcia; Jim Sharma MD Signed BEDSIDE GLUCOSE Collected: 06/12/2018 Status: F Source: [place] 4:52 PM [facility] REPOSITORY TYPE CODE TESTS RESULT OUT OF REFERENCE UNITS RANGE LAB L501.080 70-110 mg/dL High BEDSIDE GLU 136 Result Comment: MANAGEMENT OF PATIENT CARE PER NURSING PROTOCOL Performed By: #### L501.080 #### [facility] Point of Care [address] [place] [address] ARTERIAL Observed: 06/12/2018 Status: F Source: [place] 4:41 PM [facility] REPOSITORY [facility] Cardiovascular Services [address] [place] [address] Ankle Brachial Index 06/12/18 1521 MR#: [id number] Acct: [id number] Name: DAVINA GREEN Rep #: [id number] : 1955 62 From: Velma Jimenez MD Attending Dr: Jim Sharma MD Status: ADM IN Ordering Dr: Jim Sharma MD Date: 06/12/18 Location: [facility] Sex: F C Admitted: 06/11/18 Reason For Study: Left foot pain Procedure A bilateral lower extremity continuous wave Doppler with analog waveform analysis and ankle brachial indexes. Left Segmental Pressures Left brachial= 138mmHg. Left posterior tibial artery = 87mmHg. Left dorsalis pedis artery = 85mmHg. Left digit = 55 mmHg. The left dorsalis pedis waveforms are monophasic. The left posterior tibial artery waveforms are monophasic. Right Segmental Pressures Right brachial= 150mmHg. Right posterior tibial artery = 115mmHg. Right dorsalis pedis artery = 107mmHg. Right digit = 79 mmHg. The right dorsalis pedis waveforms are biphasic. The right posterior tibial artery waveforms are biphasic. Indices The right ankle brachial index by the dorsalis pedis is 0.71. The right ankle brachial index by the posterior tibial artery is 0.77. The right digital-brachial index is 0.53. The left ankle brachial index by the dorsalis pedis is 0.57. The left ankle brachial index by the posterior tibial artery is 0.58. The left digital-brachial index is 0.37. Interpretation Summary Abnormal right lower extremity ankle brachial indices well within the range of vascular claudication. The level of the disease cannot be determined on this examination. Markedly abnormal digital PPG consistent with distal small vessel disease. Abnormal left lower extremity ankle brachial indices within the range of rest pain. Abnormal PT and DP doppler waveforms consistent with critical ischemia. Markedly abnormal digital waveforms consistent with severe small vessel disease. Ordering Physician: Jim Sharma Referring Physician: SHEA Jimenez M.D. Performed By: Angel Mccloud RVT 06/12/18 1640 Date Velma Jimenez MD CC: Ivy Jimenez III, MD; Kerwin Brizuela MD; Jim Sharma MD Date Dictated: 06/12/18 1521 Date Transcribed: 06/12/18 1640 Renewable Energy Technician: Signed PROGRESS Observed: 06/12/2018 Status: COMPLETED Source: [place] 4:[address] [facility] [place] REPOSITORY O ID: [id number] Author: Napoleon Pizarro (Rn) Service: (none) Author Type: Registered Nurse Type: Progress Notes Filed: 06/12/2018 5:23 PM Note Text: PRIMARY CARE COORDINATION FOLLOW-UP NOTE Provider Action/FYI 1. Call to [facility] spk with Raj Franco RN, CM who anticipates possible discharge from [facility] 06/13/18. 2. [facility] Discharge summary faxed by Pcp's office Sandy Smart MA for continuity of care to [facility] CM. 3. [facility] Raj Franco RN, CM will verify [facility] status, Cardiology f/u, discharge needs. Patient identified by name and date of . YES Spoke to [facility] CM Wall Taper Helper plan for next outreach: Follow for Care Needs Signature Juarez Bender RN June 12, 2018 BEDSIDE GLUCOSE Collected: 06/12/2018 Status: F Source: [place] 11:36 AM [facility] REPOSITORY TYPE CODE TESTS RESULT OUT OF REFERENCE UNITS RANGE LAB L501.080 70-110 mg/dL High BEDSIDE GLU 166 Result Comment: MANAGEMENT OF PATIENT CARE PER NURSING PROTOCOL Performed By: #### L501.080 #### [facility] Point of Care [address] [place], [place] [address] BEDSIDE GLUCOSE Collected: 06/12/2018 Status: F Source: [place] 6:51 AM [facility] REPOSITORY TYPE CODE TESTS RESULT OUT OF REFERENCE UNITS RANGE LAB L501.080 70-110 mg/dL High BEDSIDE GLU 122 Result Comment: MANAGEMENT OF PATIENT CARE PER NURSING PROTOCOL Performed By: #### L501.080 #### [facility] Point of Care [address] [place] [address] CBC W/DIFF, AUTOMATED Collected: 06/12/2018 Status: F Source: [place] 5:55 AM [facility] REPOSITORY TYPE CODE TESTS RESULT OUT OF RANGE REFERENCE UNITS LAB L100.1000 4.4-11.0 K/mm3 Normal WBC 7.0 LAB L100.1200 4.2-5.4 M/mm3 Low RBC 3.26 LAB L100.1300 12.0-15.0 g/dl Low HGB 9.3 LAB L100.1400 37-47 % Low HCT 29.2 LAB L100.1500 81-99 fL Normal MCV 89.6 LAB L100.1600 27.0-32.0 pg Normal MCH 28.5 LAB L100.1700 32-36 g/gl Low MCHC 31.8 LAB L100.1810 11.6-14.6 % High RDW CV 14.8 LAB L100.1820 35.1-43.9 fl High RDW SD 48.6 LAB L100.1900 150-450 K/mm3 Normal PLT 319 LAB L100.2000 6.2-12.0 fl Normal MPV 9.3 LAB L100.2100 47-70 % Normal NEUT% 48.7 LAB L100.2200 19-41 % Normal LY% 31.6 LAB L100.2300 0-10 % Normal MONO% 9.1 LAB L100.2400 0-5 % High EO% 9.9 LAB L100.2500 0-1 % Normal BASO% 0.6 LAB L100.2550 0.0-0.9 % Normal IM GRAN % 0.100 Result Comment: IG% - Immature Granulocytes (promyelocytes, myelocytes and metamyelocytes) > 1% indicates that a LEFT SHIFT is Present. LAB L100.2620 2.0-7.7 X10 3/uL Normal Absolute Neut 3.4 LAB L100.2720 0.83-4.51 X10 3/ul Normal Absolute Lymph 2.20 Performed By: #### L100.0100 #### [facility] [address] [place], [address] BASIC METABOLIC Collected: 06/12/2018 Status: F Source: [place] PROFILE ([facility]) 5:55 AM [facility] REPOSITORY TYPE CODE TESTS RESULT OUT OF RANGE REFERENCE UNITS LAB L501.0100 74-106 mg/dL High GLU 122 Result Comment: Fasting Glucose result from 100 to 125 mg/dL suggests IMPAIRED HOMEOSTASIS per A.D.A. criteria. Please note revised GLUCOSE reference range effective 2017. LAB L501.1000 7-18 mg/dL High BUN 35 LAB L501.1100 0.55-1.02 mg/dL High CREAT,SERUM 1.44 Result Comment: The validity of the calculated GFR AND GFRAA in patients over 70 years has not been determined. Clinical correlation is essential. LAB L501.1110 >60 mL/min Low EST GFR 39 Result Comment: Non- GFR Calc LAB L501.1115 >60 mL/min Low EST GFR - AA 47 Result Comment: GFR Calc LAB L501.1255 ml/min Normal Estimated CRCL 29.10 LAB L501.1300 10-20 RATIO High BUN/CRE 24.3 LAB L501.2200 8.5-10 mg/dL Low .1 CA 8.1 LAB L501.5300 136-14 mmol/L Normal 5 NA 137 LAB L501.5600 3.5-5. mmol/L Normal 1 K 3.7 LAB L501.5900 98-107 mmol/L Normal CL 104 LAB L501.6100 21.0-3 mmol/L Normal 2.0 CO2 27.0 LAB L501.6200 5-15 Normal GAP 6 Performed By: #### L500.2500 #### [facility] [address] [facility] [address] [place], [place], [address] BEDSIDE GLUCOSE Collected: 06/12/2018 Status: F Source: [place] 12:25 AM [facility] REPOSITORY TYPE CODE TESTS RESULT OUT OF REFERENCE UNITS RANGE LAB L501.080 70-110 mg/dL High BEDSIDE GLU 136 Result Comment: MANAGEMENT OF PATIENT CARE PER NURSING PROTOCOL Performed By: #### L501.080 #### [facility] Point of Care [address] [place] [address] CNPTOUTREACH Observed: 06/12/2018 Status: COMPLETED Source: [place] 12:00 AM [facility] REPOSITORY Patient Outreach (FAMPWS) DAVINA GREEN ([id number]) 1955 F Date Time Provider Department 06/12/18 NAPOLEON PIZARRO (RN) FAMPWS During your visit today, we recorded the following information about you: Juarez Bender RN 06/12/2018 5:23 PM Signed PRIMARY CARE COORDINATION FOLLOW-UP NOTE Provider Action/FYI 1. Call to [facility] sp with Raj Franco RN, CM who anticipates possible discharge from [facility] 06/13/18. 2. [facility] Discharge summary faxed by Pcp's office Sandy Smart MA for continuity of care to [facility] CM. 3. [facility] Raj Franco RN CM will verify [facility] status, Cardiology f/u, discharge needs. Patient identified by name and date of . YES Spoke to [facility] CM Wall Taper Helper plan for next outreach: Follow for Care Needs Signature Juarez Bender RN June 12, 2018 Allergies As of Date: 06/12/2018 Noted Allergy Reaction PENICILLINS 01/28/2010 4 - Hives 7 - Swelling Comments: Updated 12/22/[address] Chaparrita Hidalgo PRAVACHOL (PRAVASTATIN SODIUM) 03/04/2010 5 - Intolerance Comments: Fatigue, loss of appetite. PROZAC (FLUOXETINE HCL) 08/07/2015 1 - Mental Status Change Comments: sleepiness Date Reviewed: 06/07/2018 Reviewed by: Kayley Doyle Ma - Fully Assessed Reason for Visit: [facility] Follow Up [6233] Cmt: [facility] Inpt Prescriptions as of 06/12/2018 Sig: ASPIRIN 81 MG TABLET,DELAYED * Take 1 tablet by mouth once d* OMEGA 0-ABO-ZUR-FISH OIL 1,00* Take 2 capsules by mouth twic* CLOPIDOGREL 75 MG TABLET Take 1 tablet by mouth once d* CARVEDILOL 3.125 MG TABLET Take 1 tablet by mouth twice * FUROSEMIDE 40 MG TABLET Take 1 tablet by mouth once d* BUSPIRONE 5 MG TABLET Take 1 tablet by mouth every * TRAMADOL 50 MG TABLET Take 1 tablet by mouth every * ALBUTEROL SULFATE HFA 90 MCG/* Inhale 2 Puffs as instructed * DIPHENHYDRAMINE 25 MG TABLET Take 2 tablets by mouth every* SUMATRIPTAN 50 MG TABLET take 1 tablet at onset of bettie* LISINOPRIL 30 MG TABLET Take 1 tablet by mouth once d* IBUPROFEN 600 MG TABLET Take 1 tablet by mouth every * MOMETASONE 0.1 % TOPICAL CREAM Apply 1 application to affect* BUSPIRONE 10 MG TABLET Take 1 tablet by mouth three * ATORVASTATIN 40 MG TABLET Take 1 tablet by mouth daily * INSULIN GLARGINE (U-100) 100 * Inject 18 Units subcutaneousl* INSULIN LISPRO (U-100) 100 UN* Inject 6 Units subcutaneously* PEN NEEDLE, DIABETIC 31 GAUGE* Use one needle with each insu* ERGOCALCIFEROL (VITAMIN D2) 5* Take 1 capsule by mouth once * COMPOUNDED PRESCRIPTION Grab Bar Dx: AMLODIPINE 10 MG TABLET Take 1 tablet by mouth once d* BLOOD SUGAR DIAGNOSTIC STRIPS Test blood sugar(s) 4 times d* LANCETS 28 GAUGE Test blood sugar(s) 4 times d* ACETAMINOPHEN ER 650 MG TABLE* Take 2 tablets by mouth twice* Problem List As Of Date 06/12/2018 Noted Resolved Stroke/Cerebrovascular Accident [I63.9] INVALID FOR* Lumbago-Sciatica due to Displacement of Lumbar *INVALID FOR* DDD (Degenerative Disc Disease), Lumbar [M51.36]INVALID FOR* Cannabis Abuse [F12.10] INVALID FOR* Lichen planus [L43.9] INVALID FOR* More... Lumbar facet arthropathy [M47.816] INVALID FOR* Essential hypertension, benign [I10] INVALID FOR* More... Nasal obstruction [J34.89] INVALID FOR* Myofascial pain [M79.18] INVALID FOR* Diabetic nephropathy with proteinuria (HCC) [E1*INVALID FOR* Hyperlipidemia with target LDL less than 100 [E*INVALID FOR* More... History of cerebrovascular accident (CVA) with *INVALID FOR* More... 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 Diabetic ulcer of toe of left foot associated w*INVALID FOR* More... Lumbar radiculopathy [M54.16] INVALID FOR* More... Gangrene (HCC) [I96] INVALID FOR*12/25/2017 More... Wound abscess [QKJ4277] INVALID FOR* More... Depression [F32.9] INVALID FOR* More... Diabetes (HCC) [E11.9] INVALID FOR* More... Tobacco abuse [Z72.0] INVALID FOR* More... Abscess [L02.91] INVALID FOR*12/25/2017 More... Foot abscess, left [L02.612] INVALID FOR* Penicillin allergy [Z88.0] INVALID FOR* C. difficile diarrhea [A04.72] INVALID FOR*01/07/2018 More... Hypokalemia [E87.6] INVALID FOR*12/31/2017 More... Malnutrition of moderate degree (HCC) [E44.0] INVALID FOR*01/08/2018 More... Normocytic anemia [D64.9] INVALID FOR* More... Electrolyte imbalance [E87.8] INVALID FOR*01/08/2018 More... CKD (chronic kidney disease), stage III (HCC) [*INVALID FOR* Encounter Status:Closed by JUAREZ EBNDER on 06/12/18 BEDSIDE GLUCOSE Collected: 06/11/2018 Status: F Source: [place] 5:24 PM [facility] REPOSITORY TYPE CODE TESTS RESULT OUT OF REFERENCE UNITS RANGE LAB L501.080 70-110 mg/dL High BEDSIDE GLU 198 Result Comment: MANAGEMENT OF PATIENT CARE PER NURSING PROTOCOL Performed By: #### L501.080 #### [facility] Point of Care [address] [place], [place] [address] BEDSIDE GLUCOSE Collected: 06/11/2018 Status: F Source: [place] 11:34 AM [facility] REPOSITORY TYPE CODE TESTS RESULT OUT OF RANGE REFERENCE UNITS LAB L501.080 70-110 mg/dL Normal BEDSIDE GLU 97 Result Comment: Dr Gomes Followed MANAGEMENT OF PATIENT CARE PER NURSING PROTOCOL Performed By: #### L501.080 #### [facility] Point of Care [address] [place], [place] [address] PROGRESS Observed: 06/11/2018 Status: COMPLETED Source: [place] 10:49 AM [facility] REPOSITORY O ID: [id number] Author: Napoleon Pizarro (Rn) Service: (none) Author Type: Registered Nurse Type: Progress Notes Filed: 06/14/2018 4:43 PM Note Text: TRANSITION CARE MANAGEMENT (TCM) FOLLOW-UP NOTE Provider Action/FYI 1. Re-faxed request to [facility] for Discharge 05/31/18 requested x3 for Medications, Diagnostics, Labs, Discharge Summary for upcoming PCP Appt 06/14/18 2. Call to Pt spk with spouse Mandy who reports Dvaina was taken to [facility] 06/11/18, he noted [facility] called today, spk with spouse, Provided Wall Taper Helper contact number. 3. Received Discharge Summary from [facility] 06/11/18, forwarded to Sandy Smart MA for Dr. Jimenez's review. ( New Medications pended for review) Patient identified by name and date of : YES Spoke to spouse Summary: [facility] Discharge Summary 05/24/19-05/31/18 Dx: Decompensated HF, successfully diuresed with IV Lasix, transitioned to Lasix 40 mg po daily on 05/30/18, repeat Cxr showed resolution of Pulm edema and effusions. History of tobacco use quit smoking 1 month ago, trial of Abuterol inhaler which she stated helped her breathing, consider out Pt PFT's, recommended f/u with PCP Neurology consulted for 1 yr vertigo- recommended an Opthalmology C/S , Opthalmology recommended consult Outpt. (Opthalmology Dr. Gómez Luna [phone]) scheduled 06/19/18 PT recommended home with PT with focus on vestibular rehab, Pt 's son also made an appt with ENT Her staged PCI of RCA HYDRANT SETTER scheduled for 06/19/[address] Keith, otherwise she is following up with local [facility] in [place] . [facility] order CHF, medication rehab, eval treat F/u Pulm. status-Consider Op PFT's F/u on CHF med Therapy-Pt states dizziness is worse with Lisinopril and therefore she is not taking it. She was restarted on home Coreg on discharge. F/u on volume status with Lasix 40 mg po daily, she is euvolemic on discharge Wt daily, 2 L fluid restriction, Activity as tolerated, call Cardiology if wt increases by 3 lbs from baseline Thank You, Signature Juarez Bender RN June 11, 2018 TROPONIN-I Collected: 06/11/2018 Status: F Source: [place] 9:20 AM [facility] REPOSITORY Order Comment: 'TROP' Serial specimen #1, #2 or #3: 3 TYPE CODE TESTS RESULT OUT OF RANGE REFERENCE UNITS LAB L501.4010 <0.045 ng/mL High 0.068 TROPONIN-I Result Comment: TROPONIN-I EXPECTED VALUES <0.045 Negative 0.045 - 0.590 Consistent with Cardiac Damage > OR = 0.600 Critical Value Not every elevated troponin is indicative of SD. These values should be used with clinical judgement in examining the patient's clinical picture for diagnosis. To establish a diagnosis of SD versus myocardial injury, there must be a demonstrated rise and/or fall in the troponin values, in addition to ischemic symptoms, EKG changes, new regional wall motion abnormality, and/or angiographical evidence. PLEASE NOTE: REFERENCE RANGES EDITED 17 Performed By: #### L501.4010 #### [facility] [address] [place], [address] EMERGENCY DEPARTMENT Observed: 06/11/2018 Status: F Source: [place] SUMMARY 7:28 AM [facility] REPOSITORY [facility] Medical Records Department [address] [place] [address] Emergency Department Summary 06/11/18 0310 MR#: [id number] Acct: [id number] Name: DAVINA GREEN Rep #: [id number] : 1955 62 From: See Garcia MD PCP: Ivy Jimenez III, MD Status: ADM IN - ER Visit Summary Date of Service: 06/11/18 Chief Complaint: Shortness of breath History of Present Illness: The patient is a 62 F presenting for evaluation secondary to shortness of breath. Patient has an underlying history of coronary artery disease and CHF with recent high risk stenting in [place]. Patient reports that she has been having intermittent issues with shortness of breath since the stenting procedure, and is supposed to have another stent placed here in the coming weeks. Patient states that about an hour prior to arrival she started noticed significant shortness of breath with some chest discomfort. Patient denies that she has had any sort of an factious prodrome associated with this including cough or fever. She does endorse that she has been getting some leg swelling associated with this. Patient was noted to be hypoxic on room air, and is not oxygen dependent. Patient did recently quit smoking about 2 months ago. Physical Examination: Vital signs are notable for blood pressure 210/110, heart rate of 120, respirations of 40, pulse ox of 88% on 2 L. Well-nourished female visibly dyspneic. Head normocephalic. No JVD was noted. Heart was tachycardic and regular without murmurs. Respirations were tachypneic, with evidence of rales in the bases bilaterally. Abdomen was soft and not tender. There is +1 bilaterally symmetric lower extremity edema noted on the patient. Remainder of physical otherwise unremarkable. Test Results: EKG demonstrates sinus tachycardia with a rate in the 120s that was grossly unchanged from prior EKG the end of April. Chest x-ray shows pulmonary vascular congestion consistent with CHF. CBC demonstrates leukocytosis of 12, chemistry essentially unremarkable mild increase in the patient's BUN to 30. Patient's BNP was markedly elevated in the 1999's, troponin in the indeterminate range. Emergency Department Course and Treatment: Patient presented with respiratory distress and hypoxia in the setting of recent CHF. Patient was noted to be profoundly hypertensive and have rales in the bases. The leading diagnostic concern was congestive heart failure. Patient had an inch of nitroglycerin paste placed on her chest and was given aspirin. She was placed on BiPAP for supplemental oxygen as well as preload reduction. Patient's blood pressure did improve into the 170s systolic and her respiratory status improved. Patient's chest x-ray confirmed pulmonary vascular congestion, BNP was elevated, troponin was elevated to a indeterminate level. Patient was given 80 mg of Lasix. She does have a mild white blood cell count elevation, but she had no infectious prodrome so I do not believe that we are dealing with pneumonia in this case. Patient will be admitted under the hospitalist. Disposition: Admission Impression: 1. CHF exacerbation 2. Hypoxic respiratory failure Critical care time 40 minutes This note was generated with [employer] dictation software. It may contain incorrect words, spelling, and punctuation that were not noted in review of the chart prior to signing ED Disposition - Plan for ED Patient: Chief Complaint: Shortness of Breath Referrals: Ivy Jimenez III, MD [Primary Care Provider] - What to do if you have Problems For any increased pain, shortness of breath, bleeding, nausea or vomiting, chest pain, or any unexpected problems, contact your Primary Care Provider. Call [facility] ([phone]) or report to the closest Emergency Room. Call 911 if necessary. 06/11/18 0728 <Electronically signed by See Garcia MD> Date See Garcia MD Cosigner Signature (If Indicated): Date CC: Ivy Jimenez III, MD HISTORY AND PHYSICAL Observed: 06/11/2018 Status: F Source: [place] EXAM 7:11 AM [facility] REPOSITORY [facility] Medical Records Department [address] [place] [address] History and Physical 06/11/18 0428 MR#: [id number] Acct: [id number] Name: DAVINA GREEN Rep #: [id number] : 1955 62 From: Kerwin Brizuela MD PCP: Ivy Jimenez III, MD Status: ADM IN Y Location: ICU ICU09-1 Problem List (1) Flash pulmonary edema Status: Acute (2) Acute exacerbation of CHF (congestive heart failure) Status: Acute Qualifiers: Heart failure type: systolic Qualified Code(s): I50.23 - Acute on chronic systolic (congestive) heart failure History of Present Illness Date of Admission: 06/11/18 Chief Complaint: shortness of breath The patient is a 62 year old F with a significant history of anxiety; CAD status post 3 stents; systolic heart failure NYHA class III diabetes mellitus; CKD stage III; COPD who presented with sudden onset shortness of breath that started after she woke up from her sleep. Her symptoms started few hours before her admission. Her shortness of breath increases with exertion. Associated with her symptoms is swelling of her legs. Further patient reports substernal sharp chest pain of 10 out of 10 in severity. Her pain is nonradiating. Pain is constant. There are no relieving or aggravating factors. She denies orthopnea. Patient was previously admitted to our [facility] on 05/08/2018. On 05/09/2018 patient had a cardiac catheterization. She was found to have three-vessel disease with a grade 3 mitral valve insufficiency. Her cardiac catheterization here was with Dr. Good, marketing account executive. Her catheterization also showed left ventricular ejection fraction of 30% with inferior basal akinesis; and anterior hypokinesis. She was transferred to [facility] on 05/09/2018 for multivessel coronary artery disease where she received 3 stents. Patient reports that she is supposed to get another stent. On this presentation chest x-ray showed cardiomegaly with pulmonary congestion; prominence of haler areas which may be the result of lymphadenopathy or prominent pulmonary arteries; persistent right basilar heterogeneous airspace disease. Patient was transitioned from nonrebreather mask to 2 L nasal cannula. On 2 L nasal cannula her oxygen saturation was 88%. At emergency departments she was placed on BiPAP to reduce preload and afterload. Her BNP was severely elevated at 2,243.8. At emergency department patient received lorazepam. Patient received Lasix 80 mg IV. Nitroglycerin patch was placed on patient chest. Also she was given aspirin 324 mg. She is a former smoker who quit smoking about a month and a half ago. Past Medical History Past Medical History (Chronic Problems): Chronic Problems (Last Reviewed 06/11/18 @ 05:13 by Kerwin Brizuela MD) Chronic ulcer of buttock (Chronic) Diabetes mellitus (Chronic) Hypertension (Chronic) History of CVA (cerebrovascular accident) (Chronic) Tobacco abuse (Chronic) PVD (peripheral vascular disease) (Chronic) Carotid arterial disease (Chronic) Hyperlipidemia (Chronic) Medical History: Medical History (Last Reviewed 06/11/18 @ 05:13 by Kerwin Brizuela MD) PVD (peripheral vascular disease) (Chronic) I73.9 Carotid arterial disease (Chronic) I77.9 Hyperlipidemia (Chronic) E78.5 Asthma J45.909 CVA (cerebral vascular accident) I63.9 Chronic back pain M54.9, G89.29 Depression F32.9 Diabetes E11.9 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 Velma Jimenez approximately 7 years ago. She is a Ab0. Amputation of small toe of left foot Smoking Status: Former smoker - *Family History Maternal Family History: Family History (Last Updated 11/08/17 @ 13:38 by Melva Ashby) Mother No problems noted. History Items: Heart Disease, - - Patient's father in his 40s from myocardial infarction. Patient's mother in her 40s from a cerebrovascular accident. Paternal Family History: Family History (Last Updated 11/08/17 @ 13:38 by Melva Ashby) Mother No problems noted. History Items: Heart Disease - There was heart disease in both maternal and paternal side. Review of Systems Constitutional: Denies: Chills, Fever, Weight Change HEENT: Denies: Head Aches, Sinus Congestion, Sinus Drainage Cardiovascular: Reports: Chest Pain. Denies: Palpitations Respiratory: Reports: Shortness of breath at rest. Denies: Cough, Sputum production Gastrointestinal: Denies: Abdominal Pain, Nausea, Vomiting Genitourinary: Denies: Dysuria Musculoskeletal: Denies: Joint Pain, Joint Tenderness Skin: Denies: Rash, Wounds Neurological: Denies: Numbness, Tingling, Focal weakness Psychiatric: Denies: Anxiety, Depression, Homicidal Ideations, Suicidal Ideations Hematologic/ Lymphatic: Denies: Easy Bruising, Easy Bleeding VTE Information - Inpt Only VTE Present on Admission: No VTE Mechan Device Prophylaxis: None VTE Pharm Prophylaxis ordered?: Yes Patient Problems: Active and Suspected Problems (Last Reviewed 06/11/18 @ 05:13 by Kerwin Brizuela MD) Flash pulmonary edema (Acute) Acute exacerbation of CHF (congestive heart failure) (Acute) - Physical Exam General: Alert, Oriented x3, Cooperative HEENT: Atraumatic, PERRLA, EOMI, Normocephalic Neck: Supple, No JVD, Negative Carotid Bruits Lungs: Rhonchi, Tachypneic, Using Accessory Muscles Cardiovascular: Regular rate, No murmurs Abdomen: Bowel Sounds Present, Soft, Non Tender Extremities: Capillary Refill Less than 3 Seconds, Edema - 2+ on the right ankle and lateral side of right foot. Skin: No rashes, No breakdown Musculoskeletal: No Muscle Wasting Neurological: Neuro grossly intact Psych/Mental Status: Normal Affect, Appropriate Vital Signs Temp Pulse Resp BP Pulse Ox 98.5 F 96 24 H 129/77 H 95 06/11/18 01:59 06/11/18 03:34 06/11/18 03:34 06/11/18 03:34 06/11/18 03:34 Oxygen Flow Rate (L/min) 4 Oxygen Delivery Method Bi-pap Weight: 71 kg Body Mass Index (BMI) 30.5 Laboratory Tests Past 24 Hrs POC Glucose POC Glucose 108 70 Assessment/Plan All Active Problems (Last Reviewed 06/11/18 @ 05:13 by Kerwin Brizuela MD) Flash pulmonary edema (Acute) Acute exacerbation of CHF (congestive heart failure) (Acute) The patient is a 62 year old F with a significant history of anxiety; CAD status post 3 stents; systolic heart failure JASKARAN class III diabetes mellitus; COPD who presented with sudden onset shortness of breath; and chest pain and found to have pulmonary congestion and elevated BNP consistent with acute exacerbation of systolic heart failure with flash pulmonary edema. Acute exacerbation of heart failure with reduced ejection Fraction (NYHA Class III) with flash pulmonary edema Chest x-ray independently reviewed showed pulmonary edema. BNP on admission was 2243.8. Review of old records showed BNP on 05/24 2018 was 3512.5 BNP on 05/08/2018 was 3,127.7 Patient received Lasix 80 mg IV x1 at the emergency department. Will give patient another dose of Lasix, 40mg IV, in a.m. Her potassium on admission was 4.9. We will repeat her BMP. Consider potassium administration while patient on Lasix. Placed on BiPAP at emergency department with setting 8/4. BiPAP setting change to 12/6. We will keep n.p.o. while patient is on BiPAP. Consider starting a 2 g sodium diet when patient is off BiPAP. Strict intake and output. Daily weights. Elevate bilateral lower extremities Alejandra wrap to bilateral legs Obtain medical records from [facility] Creatinine on admission was 1.39. This is about her baseline. Lisinopril and Coreg continued. Consider titrating guideline directed medication since there is room on blood pressure. Nitroglycerin paste was placed on patient to the emergency department. We will continue nitroglycerin paste. Morphine 1milligrams IV x 1 once ordered for Pulmonary congestion. PRN morphine IV for shortness of breath and chest pain. Her troponin at emergency department was 0.058. Serial troponin ordered. Review of records show that on 05/24/2018 her troponin was 1.60. Consider cardiology consult. We will get a comprehensive respiratory pathogen panel. Since patient has history of COPD and her lungs sounded rhonchus scheduled DuoNeb was ordered. Elevated troponin Trend as above. Likely from demand ischemia from CHF exacerbation. Aspirin continued High intensity statin continued History of CAD Aspirin, Plavix, high intensity statin, metoprolol and lisinopril continued. Leukocytosis Her WBC on admission was 12.4 K. Review of old records shows that at baseline her white blood count is normal. Likely reactive. Trend. Diabetes mellitus On presentation her blood glucose on BMP was 87; and on fingerstick blood sugar was 108. This is within goal. Patient is on long-acting insulin and prandial insulin at home. Since patient is on BiPAP and she is n.p.o. except meds would hold off home insulin and place patient on correction scale insulin. CKD stage III On admission her creatinine was within baseline. COPD Does not appear to be in COPD exacerbation. All her symptoms probably is from heart failure. However because her lung was rhonchus which could indeed be from heart failure will put patient on DuoNeb. Home breathing treatment continued. Anxiety Disorder Buspirone continued Received x1 dose of Ativan at the emergency department. DVT Prophylaxis Subcutaneous heparin. Code Visit Inpatient E AND M: 43768 Init Hosp L3 06/11/18 0711 <Electronically signed by Kerwin Brizuela MD> Date Kerwin Brizuela MD Cosigner Signature: Date (if applicable) CC: Ivy Jimenez III, MD; Kerwin Brizuela MD Signed BEDSIDE GLUCOSE Collected: 06/11/2018 Status: F Source: [place] 6:28 AM [facility] REPOSITORY TYPE CODE TESTS RESULT OUT OF REFERENCE UNITS RANGE LAB L501.080 70-110 mg/dL High BEDSIDE GLU 121 Result Comment: MANAGEMENT OF PATIENT CARE PER NURSING PROTOCOL Performed By: #### L501.080 #### [facility] [address] [place] [address] [place] [address] Observed: 06/11/2018 Status: F Source: [place] RESPIRATORY PANEL 5:10 AM [facility] MOLECULAR REPOSITORY RP PANEL ADENOVIRUS Not Detected HUMAN METAPHNEUMO Not Detected INFLUENZA A Not Detected INFLUENZA A (SUBTYPE H1) Not Detected INFLUENZA A (SUBTYPE H3) Not Detected INFLUENZA B Not Detected PARAINFLUENZA 1 Not Detected PARAINFLUENZA 2 Not Detected PARAINFLUENZA 3 Not Detected PARAINFLUENZA 4 Not Detected RHINOVIRUS Not Detected RSV A Not Detected RSV B Not Detected NAAT METHOD Testing was performed using nucleic acid amplification Performed By: #### M100.638 #### [facility] [address] [place] [address] [place], [address] TROPONIN-I Collected: 06/11/2018 Status: F Source: [place] 5:00 AM [facility] REPOSITORY Order Comment: 'TROP' Serial specimen #1, #2 or #3: 2 TYPE CODE TESTS RESULT OUT OF RANGE REFERENCE UNITS LAB L501.4010 <0.045 ng/mL High 0.071 TROPONIN-I Result Comment: TROPONIN-I EXPECTED VALUES <0.045 Negative 0.045 - 0.590 Consistent with Cardiac Damage > OR = 0.600 Critical Value Not every elevated troponin is indicative of SD. These values should be used with clinical judgement in examining the patient's clinical picture for diagnosis. To establish a diagnosis of SD versus myocardial injury, there must be a demonstrated rise and/or fall in the troponin values, in addition to ischemic symptoms, EKG changes, new regional wall motion abnormality, and/or angiographical evidence. PLEASE NOTE: REFERENCE RANGES EDITED 17 Performed By: #### L501.4010 #### [facility] [address] [place], [address] BASIC METABOLIC Collected: 06/11/2018 Status: F Source: [place] PROFILE (BMP) 4:35 AM [facility] REPOSITORY TYPE CODE TESTS RESULT OUT OF RANGE REFERENCE UNITS LAB L501.0100 74-106 mg/dL High GLU 125 Result Comment: Fasting Glucose result from 100 to 125 mg/dL suggests IMPAIRED HOMEOSTASIS per A.D.A. criteria. Please note revised GLUCOSE reference range effective 2017. LAB L501.1000 7-18 mg/dL High BUN 34 LAB L501.1100 0.55-1.02 mg/dL High CREAT,SERUM 1.42 Result Comment: The validity of the calculated GFR AND GFRAA in patients over 70 years has not been determined. Clinical correlation is essential. LAB L501.1110 >60 mL/min Low EST GFR 40 Result Comment: Non- GFR Calc LAB L501.1115 >60 mL/min Low EST GFR - AA 48 Result Comment: GFR Calc LAB L501.1255 ml/min Normal Estimated CRCL 29.51 LAB L501.1300 10-20 RATIO High BUN/CRE 23.9 LAB L501.2200 8.5-10 mg/dL Normal .1 CA 8.7 LAB L501.5300 136-14 mmol/L Normal 5 NA 142 LAB L501.5600 3.5-5. mmol/L Normal 1 K 3.6 LAB L501.5900 98-107 mmol/L Normal CL 105 LAB L501.6100 21.0-3 mmol/L Normal 2.0 CO2 25.0 LAB L501.6200 5-15 Normal GAP 12 Performed By: #### L500.2500 #### [facility] [address] [place], [place], [id number] BEDSIDE GLUCOSE Collected: 06/11/2018 Status: F Source: [place] 2:38 AM [facility] REPOSITORY TYPE CODE TESTS RESULT OUT OF RANGE REFERENCE UNITS LAB L501.080 70-110 mg/dL Normal BEDSIDE GLU 108 Result Comment: MANAGEMENT OF PATIENT CARE PER NURSING PROTOCOL Performed By: #### L501.080 #### [facility] Point of Care [address] [facility] [place], [place] [address] CBC W/DIFF, AUTOMATED Collected: 06/11/2018 Status: F Source: [place] 2:22 AM [facility] REPOSITORY TYPE CODE TESTS RESULT OUT OF RANGE REFERENCE UNITS LAB L100.1000 4.4-11.0 K/mm3 High WBC 12.4 LAB L100.1200 4.2-5.4 M/mm3 Low RBC 4.10 LAB L100.1300 12.0-15.0 g/dl Normal HGB 12.0 LAB L100.1400 37-47 % Low HCT 36.6 LAB L100.1500 81-99 fL Normal MCV 89.3 LAB L100.1600 27.0-32.0 pg Normal MCH 29.3 LAB L100.1700 32-36 g/gl Normal MCHC 32.8 LAB L100.1810 11.6-14.6 % High RDW CV 14.9 LAB L100.1820 35.1-43.9 fl High RDW SD 48.0 LAB L100.1900 150-450 K/mm3 Normal PLT 346 LAB L100.2000 6.2-12.0 fl Normal MPV 9.3 LAB L100.2100 47-70 % Normal NEUT% 62.7 LAB L100.2200 19-41 % Normal LY% 20.9 LAB L100.2300 0-10 % Normal MONO% 8.4 LAB L100.2400 0-5 % High EO% 7.3 LAB L100.2500 0-1 % Normal BASO% 0.5 LAB L100.2550 0.0-0.9 % Normal IM GRAN % 0.200 Result Comment: IG% - Immature Granulocytes (promyelocytes, myelocytes and metamyelocytes) > 1% indicates that a LEFT SHIFT is Present. LAB L100.2620 2.0-7.7 X10 3/uL High Absolute Neut 7.8 LAB L100.2720 0.83-4.51 X10 3/ul Normal Absolute Lymph 2.59 Performed By: #### L100.0100 #### [facility] [address] [place] [address]. [place], [place], [address] BASIC METABOLIC Collected: 06/11/2018 Status: F Source: [place] PROFILE (BMP) 2:22 AM [facility] REPOSITORY TYPE CODE TESTS RESULT OUT OF RANGE REFERENCE UNITS LAB L501.0100 74-106 mg/dL Normal GLU 87 Result Comment: Please note revised GLUCOSE reference range effective 2017. LAB L501.1000 7-18 mg/dL High BUN 32 LAB L501.1100 0.55-1.02 mg/dL High CREAT,SERUM 1.39 Result Comment: The validity of the calculated GFR AND GFRAA in patients over 70 years has not been determined. Clinical correlation is essential. LAB L501.1110 >60 mL/min Low EST GFR 41 Result Comment: Non- GFR Calc LAB L501.1115 >60 mL/min Low EST GFR - AA 49 Result Comment: GFR Calc LAB L501.1255 ml/min Normal Estimated CRCL 30.14 LAB L501.1300 10-20 RATIO High BUN/CRE 23.0 LAB L501.2200 8.5-10 mg/dL Normal .1 CA 9.2 LAB L501.5300 136-14 mmol/L Normal 5 NA 138 LAB L501.5600 3.5-5. mmol/L Normal 1 K 4.9 Result Comment: Moderate Hemolysis, Result may be falsely increased. LAB L501.5900 98-107 mmol/L Normal CL 106 LAB L501.6100 21.0-32.0 mmol/L Normal CO2 21.0 LAB L501.6200 5-15 Normal GAP 11 Performed By: #### L500.2500, L501.4010 #### [facility] [address] [facility] [place], [place], [address] TROPONIN-I Collected: 06/11/2018 Status: F Source: [place] 2:22 AM [facility] REPOSITORY TYPE CODE TESTS RESULT OUT OF RANGE REFERENCE UNITS LAB L501.4010 <0.045 ng/mL High 0.058 TROPONIN-I Result Comment: TROPONIN-I EXPECTED VALUES <0.045 Negative 0.045 - 0.590 Consistent with Cardiac Damage > OR = 0.600 Critical Value Not every elevated troponin is indicative of SD. These values should be used with clinical judgement in examining the patient's clinical picture for diagnosis. To establish a diagnosis of SD versus myocardial injury, there must be a demonstrated rise and/or fall in the troponin values, in addition to ischemic symptoms, EKG changes, new regional wall motion abnormality, and/or angiographical evidence. PLEASE NOTE: REFERENCE RANGES EDITED 17 Performed By: #### L500.2500, L501.4010 #### [facility] [address] [facility] [place], [address] BNP,B-TYPE NATRIURETIC Collected: 06/11/2018 Status: F Source: [place] 2:22 AM [facility] REPOSITORY TYPE CODE TESTS RESULT OUT OF RANGE REFERENCE UNITS LAB L503.6620 0-100 pg/mL High B-TYPE 2243.8 CHRIS PEP Performed By: #### L503.6620 #### [facility] [address] [place], [address] CHEST 1 VIEW Observed: 06/11/2018 Status: F Source: [place] (PORTABLE) 2:13 AM [facility] REPOSITORY [facility] Imaging Services [address] [place] [address] Chest 1 View (Portable) MR#: [id number] Acct: [id number] Name: DAVINA GREEN Rep #: [id number] : 1955 F 62 From: Ana Leija MD PCP: Ivy Jimenez III, MD Status: PRE ER Study: Chest 1 View (Portable) Date of Exam: 06/11/18 Exam# [id number] Ordering Dr: See Garcia MD STUDY: X-RAY CHEST REASON FOR EXAM: Female, 62 years old. Congestive heart failure and increasing shortness of breath. TECHNIQUE: Single AP portable view of the chest. COMPARISON: May 24, 2018. FINDINGS: Cardiac monitoring leads are present. The lungs are hyperexpanded. There are mixed interstitial and airspace opacities at the right lung base. There is diffuse interstitial thickening in both lungs. There is no demonstrated pleural abnormality. There is mild cardiac enlargement. There is enlargement of the hilar areas, right greater than left suggesting possible lymphadenopathy. There is prominence of the pulmonary hilar arteries without peripheral pulmonary vascular congestion. There is atherosclerotic tortuosity of the aortic arch and descending thoracic aorta. There is demineralization of the osseous structures. There are degenerative changes of both shoulders. There is no demonstrated abnormality of the visualized soft tissue structures of the upper abdomen. RAD/Chest 1 View (Portable) IMPRESSION: 1. Cardiomegaly with pulmonary congestion. 2. Prominence of the hilar areas may be the result of lymphadenopathy or prominent pulmonary arteries. 3. Persistent right basilar heterogeneous air space disease. Electronically Signed: Ana Leija MD at 2:53 EST , Service support , CC: Ivy Jimenez III, MD; See Garcia Renewable Energy Technician: Signed BEDSIDE GLUCOSE Collected: 06/11/2018 Status: F Source: [place] 2:05 AM [facility] REPOSITORY TYPE CODE TESTS RESULT OUT OF RANGE REFERENCE UNITS LAB L501.080 70-110 mg/dL Normal BEDSIDE GLU 70 Result Comment: MANAGEMENT OF PATIENT CARE PER NURSING PROTOCOL Performed By: #### L501.080 #### [facility] Point of Care [address] [place] [address] CNPTOUTREACH Observed: 06/11/2018 Status: COMPLETED Source: [place] 12:00 AM [facility] REPOSITORY Patient Outreach (FAMPWS) DAVINA GREEN ([id number]) 1955 F Date Time Provider Department 06/11/18 NAPOLEON GuillenRN) FAMPWS During your visit today, we recorded the following information about you: Juarez Bender RN 06/14/2018 4:43 PM Signed TRANSITION CARE MANAGEMENT (TCM) FOLLOW-UP NOTE Provider Action/FYI 1. Re-faxed request to [facility] for Discharge 05/31/18 requested x3 for Medications, Diagnostics, Labs, Discharge Summary for upcoming PCP Appt 06/14/18 2. 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 3. Received Discharge Summary from [facility] 06/11/18, forwarded to Sandy Smart MA for Dr. Jimenez's review. ( New Medications pended for review) Patient identified by name and date of : YES Spoke to spouse Summary: [facility] Discharge Summary 05/24/19-05/31/18 Dx: Decompensated HF, successfully diuresed with IV Lasix, transitioned to Lasix 40 mg po daily on 05/30/18, repeat Cxr showed resolution of Pulm edema and effusions. History of tobacco use quit smoking 1 month ago, trial of Abuterol inhaler which she stated helped her breathing, consider out Pt PFT's, recommended f/u with PCP Neurology consulted for 1 yr vertigo- recommended an Opthalmology C/S , Opthalmology recommended consult Outpt. (Opthalmology Dr. 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 Keith, otherwise she is following up with local [facility] in [place] . [facility] order CHF, medication rehab, eval treat F/u Pulm. status-Consider Op PFT's F/u on CHF med Therapy-Pt states dizziness is worse with Lisinopril and therefore she is not taking it. She was restarted on home Coreg on discharge. F/u on volume status with Lasix 40 mg po daily, she is euvolemic on discharge Wt daily, 2 L fluid restriction, Activity as tolerated, call Cardiology if wt increases by 3 lbs from baseline Thank You, Signature Juarez Bender RN June 11, 2018 Allergies As of Date: 06/11/2018 Noted Allergy Reaction PENICILLINS 01/28/2010 4 - Hives 7 - Swelling Comments: Updated 12/22/[address] Chaparrita Hidalgo PRAVACHOL (PRAVASTATIN SODIUM) 03/04/2010 5 - Intolerance Comments: Fatigue, loss of appetite. PROZAC (FLUOXETINE HCL) 08/07/2015 1 - Mental Status Change Comments: sleepiness Date Reviewed: 06/07/2018 Reviewed by: Kayley Doyle Ma - Fully Assessed Reason for Visit: [facility] Follow Up [9873] Cmt: Update Reason For Visit History Recorded Prescriptions as of 06/11/2018 Sig: ASPIRIN 81 MG TABLET,DELAYED * Take 1 tablet by mouth once d* OMEGA 2-AZA-SVM-FISH OIL 1,00* Take 2 capsules by mouth twic* CLOPIDOGREL 75 MG TABLET Take 1 tablet by mouth once d* CARVEDILOL 3.125 MG TABLET Take 1 tablet by mouth twice * FUROSEMIDE 40 MG TABLET Take 1 tablet by mouth once d* BUSPIRONE 5 MG TABLET Take 1 tablet by mouth every * TRAMADOL 50 MG TABLET Take 1 tablet by mouth every * ALBUTEROL SULFATE HFA 90 MCG/* Inhale 2 Puffs as instructed * DIPHENHYDRAMINE 25 MG TABLET Take 2 tablets by mouth every* SUMATRIPTAN 50 MG TABLET take 1 tablet at onset of bettie* LISINOPRIL 30 MG TABLET Take 1 tablet by mouth once d* IBUPROFEN 600 MG TABLET Take 1 tablet by mouth every * MOMETASONE 0.1 % TOPICAL CREAM Apply 1 application to affect* BUSPIRONE 10 MG TABLET Take 1 tablet by mouth three * ATORVASTATIN 40 MG TABLET Take 1 tablet by mouth daily * INSULIN GLARGINE (U-100) 100 * Inject 18 Units subcutaneousl* INSULIN LISPRO (U-100) 100 UN* Inject 6 Units subcutaneously* PEN NEEDLE, DIABETIC 31 GAUGE* Use one needle with each insu* ERGOCALCIFEROL (VITAMIN D2) 5* Take 1 capsule by mouth once * COMPOUNDED PRESCRIPTION Grab Bar Dx: AMLODIPINE 10 MG TABLET Take 1 tablet by mouth once d* BLOOD SUGAR DIAGNOSTIC STRIPS Test blood sugar(s) 4 times d* LANCETS 28 GAUGE Test blood sugar(s) 4 times d* ACETAMINOPHEN ER 650 MG TABLE* Take 2 tablets by mouth twice* Problem List As Of Date 06/11/2018 Noted Resolved Stroke/Cerebrovascular Accident [I63.9] INVALID FOR* Lumbago-Sciatica due to Displacement of Lumbar *INVALID FOR* DDD (Degenerative Disc Disease), Lumbar [M51.36]INVALID FOR* Cannabis Abuse [F12.10] INVALID FOR* Lichen planus [L43.9] INVALID FOR* More... Lumbar facet arthropathy [M47.816] INVALID FOR* Essential hypertension, benign [I10] INVALID FOR* More... Nasal obstruction [J34.89] INVALID FOR* Myofascial pain [M79.18] INVALID FOR* Diabetic nephropathy with proteinuria (HCC) [E1*INVALID FOR* Hyperlipidemia with target LDL less than 100 [E*INVALID FOR* More... History of cerebrovascular accident (CVA) with *INVALID FOR* More... 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 Diabetic ulcer of toe of left foot associated w*INVALID FOR* More... Lumbar radiculopathy [M54.16] INVALID FOR* More... Gangrene (HCC) [I96] INVALID FOR*12/25/2017 More... Wound abscess [YDD7566] INVALID FOR* More... Depression [F32.9] INVALID FOR* More... Diabetes (HCC) [E11.9] INVALID FOR* More... Tobacco abuse [Z72.0] INVALID FOR* More... Abscess [L02.91] INVALID FOR*12/25/2017 More... Foot abscess, left [L02.612] INVALID FOR* Penicillin allergy [Z88.0] INVALID FOR* C. difficile diarrhea [A04.72] INVALID FOR*01/07/2018 More... Hypokalemia [E87.6] INVALID FOR*12/31/2017 More... Malnutrition of moderate degree (HCC) [E44.0] INVALID FOR*01/08/2018 More... Normocytic anemia [D64.9] INVALID FOR* More... Electrolyte imbalance [E87.8] INVALID FOR*01/08/2018 More... CKD (chronic kidney disease), stage III (HCC) [*INVALID FOR* Encounter Status:Closed by JUAREZ BENDER on 06/14/18 ROMARIO Observed: 06/08/2018 Status: COMPLETED Source: [place] 12:00 AM [facility] REPOSITORY Telephone (PODIWS) DAVINA GREEN ([id number]) 1955 F Date Time Provider Department 06/08/18 ALLIE POMPA During your visit today, we recorded the following information about you: Allie NOA Pompa 06/08/2018 8:55 AM Signed Attempted to contact patient to discuss negative xray results. Patient was sleeping. Person answering phone reports Davina was doing better. Will have her f/u as scheduled NOA Hernandez RN 06/08/2018 9:35 AM Signed Patient returned phone call and was informed of XR results and verablized understanding. Pt states since she just woke up her toes are hurting but she will take her tramadol. If pain no better she will contact office. Allie Pompa DPM 06/08/2018 12:51 PM Signed Ok. Patient recommended yesterday to get pvr. NOA Hernandez RN 06/08/2018 4:17 PM Signed Pt scheduled on 06/13/18 for PVR. Allergies As of Date: 06/08/2018 Noted Allergy Reaction PENICILLINS 01/28/2010 4 - Hives 7 - Swelling Comments: Updated 12/22/[address] Chaparrita Hidalgo PRAVACHOL (PRAVASTATIN SODIUM) 03/04/2010 5 - Intolerance Comments: Fatigue, loss of appetite. PROZAC (FLUOXETINE HCL) 08/07/2015 1 - Mental Status Change Comments: sleepiness Date Reviewed: 06/07/2018 Reviewed by: Kayley Doyle Ma - Fully Assessed Reason for Visit: Recheck [92] Prescriptions as of 06/08/2018 Sig: TRAMADOL 50 MG TABLET Take 1 tablet by mouth every * ALBUTEROL SULFATE HFA 90 MCG/* Inhale 2 Puffs as instructed * DIPHENHYDRAMINE 25 MG TABLET Take 2 tablets by mouth every* SUMATRIPTAN 50 MG TABLET take 1 tablet at onset of bettie* LISINOPRIL 30 MG TABLET Take 1 tablet by mouth once d* IBUPROFEN 600 MG TABLET Take 1 tablet by mouth every * MOMETASONE 0.1 % TOPICAL CREAM Apply 1 application to affect* BUSPIRONE 10 MG TABLET Take 1 tablet by mouth three * ATORVASTATIN 40 MG TABLET Take 1 tablet by mouth daily * INSULIN GLARGINE (U-100) 100 * Inject 18 Units subcutaneousl* INSULIN LISPRO (U-100) 100 UN* Inject 6 Units subcutaneously* PEN NEEDLE, DIABETIC 31 GAUGE* Use one needle with each insu* ERGOCALCIFEROL (VITAMIN D2) 5* Take 1 capsule by mouth once * COMPOUNDED PRESCRIPTION Grab Bar Dx: AMLODIPINE 10 MG TABLET Take 1 tablet by mouth once d* BLOOD SUGAR DIAGNOSTIC STRIPS Test blood sugar(s) 4 times d* LANCETS 28 GAUGE Test blood sugar(s) 4 times d* ACETAMINOPHEN ER 650 MG TABLE* Take 2 tablets by mouth twice* Problem List As Of Date 06/08/2018 Noted Resolved Stroke/Cerebrovascular Accident [I63.9] INVALID FOR* Lumbago-Sciatica due to Displacement of Lumbar *INVALID FOR* DDD (Degenerative Disc Disease), Lumbar [M51.36]INVALID FOR* Cannabis Abuse [F12.10] INVALID FOR* Lichen planus [L43.9] INVALID FOR* More... Lumbar facet arthropathy [M47.816] INVALID FOR* Essential hypertension, benign [I10] INVALID FOR* More... Nasal obstruction [J34.89] INVALID FOR* Myofascial pain [M79.18] INVALID FOR* Diabetic nephropathy with proteinuria (HCC) [E1*INVALID FOR* Hyperlipidemia with target LDL less than 100 [E*INVALID FOR* More... History of cerebrovascular accident (CVA) with *INVALID FOR* More... 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 Diabetic ulcer of toe of left foot associated w*INVALID FOR* More... Lumbar radiculopathy [M54.16] INVALID FOR* More... Gangrene (HCC) [I96] INVALID FOR*12/25/2017 More... Wound abscess [TFK5683] INVALID FOR* More... Depression [F32.9] INVALID FOR* More... Diabetes (HCC) [E11.9] INVALID FOR* More... Tobacco abuse [Z72.0] INVALID FOR* More... Abscess [L02.91] INVALID FOR*12/25/2017 More... Foot abscess, left [L02.612] INVALID FOR* Penicillin allergy [Z88.0] INVALID FOR* C. difficile diarrhea [A04.72] INVALID FOR*01/07/2018 More... Hypokalemia [E87.6] INVALID FOR*12/31/2017 More... Malnutrition of moderate degree (HCC) [E44.0] INVALID FOR*01/08/2018 More... Normocytic anemia [D64.9] INVALID FOR* More... Electrolyte imbalance [E87.8] INVALID FOR*01/08/2018 More... CKD (chronic kidney disease), stage III (HCC) [*INVALID FOR* Encounter Status:Closed by ALLIE POMPA DPM on 06/08/18 XR FOOT 3V AP/LAT/OBL Observed: 06/07/2018 Status: F Source: [facility] 4:11 PM [facility] REPOSITORY * * *Final Report* * * DATE OF EXAM: Jun 07 2018 4:11PM [id number] [id number] - XR FOOT 3V AP/LAT/OBL LT / PROCEDURE REASON: Pain in left foot * * * * Physician Interpretation * * * * LEFT foot HISTORY: 62 years old Clinical information: Pain in left foot pt states 4 month follow up for left 5th toe amputation TECHNIQUE: Images: XR FOOT 3V AP/LAT/OBL LT Comparison: 02/16/2018. RESULT: Findings: Right side: No fractures or dislocations are seen. Narrowing of all the interphalangeal joints. Left side: No fractures or dislocations are seen. Evidence of previous resection of the distal one half of the fifth metatarsal in the fifth toe again noted. There is narrowing of all the interphalangeal joints. Large anterior heel spur. Marked bony demineralization. IMPRESSION: Findings as discussed under Results portion of report.. Renewable Energy Technician: PSCB Transcribe Date/Time: Jun 07 2018 8:52P Dictated by : SAMSON THOMAS DO This examination was interpreted and the report reviewed and electronically signed by: SAMSON THOMAS DO on Jun 07 2018 8:54PM EST [id number] PROGRESS Observed: 06/07/2018 Status: COMPLETED Source: [place] 4:03 PM [facility] REPOSITORY HNO ID: [id number] Author: Juarez Vargas (Rt) Emily Yusuf Service: (none) Author Type: Knockdown Man Type: Progress Notes Filed: 06/07/2018 4:11 PM Note Text: Radiology Service Progress Note PATIENT NAME: Davina Green DATE OF SERVICE: June 07, 2018 TIME: 4:03 PM PATIENT IDENTITY VERIFICATION COMPLETED USING TWO (2) METHODS: Patient confirmed name verbally and Date of . PATIENT GENDER DATA: Female. status: : No status: NO. PATIENT RELEVANT IMPLANT DATA REVIEWED: Not Applicable RADIOLOGY DEPARTMENT: General X-ray: Exam(s) Completed: Lower Extremity X-Ray(s): Foot, Left: PERIPHERAL IV DATA: Not applicable SIGNED BY: RT Manuel June 07, 2018 4:03 PM PROGRESS Observed: 06/07/2018 Status: COMPLETED Source: [place] 3:51 PM [facility] REPOSITORY HNO ID: [id number] Author: Kayley Doyle Ma Service: (none) Author Type: (none) Type: Progress Notes Filed: 06/08/2018 8:54 AM Note Text: Per Dr. Pompa, Davina was provided with Post op shoe, size S, and instructed/educated in its application, wear, and care. All questions were answered, and patient was able to demonstrate competence with the necessary skills to utilize the above equipment. Kayley Doyle Ma PROGRESS Observed: 06/07/2018 Status: COMPLETED Source: [place] 3:14 PM [facility] REPOSITORY HNO ID: [id number] Author: Allie Pompa Service: (none) Author Type: Physician Type: Progress Notes Filed: 06/08/2018 8:54 AM Note Text: Follow up podiatric office visit for: Chief Complaint: This 62 year old who presents for left foot pain. Patient complains of left foot pain primarily to site of amputation. She was seen in January and referred to pain management but never went. Patient states the pain went away but recently, she has been experiencing pain to the lateral left foot at site of amputation. She takes tylenol for pain which is not doing anything for the pain. She feels that taking tylenol is like taking nothing. She also has wart to right heel. Patient states that she has had this off/on for years and usually has her peel it off. She states that it recently flared back up and is causing her pain. She recently was admitted to [facility] for chest pain. She states she is no longer smoking. PAIN EVALUATION 06/07/2018 Pain Score: 9 Pain Location: Foot-Left Description: Stabbing;Sharp Duration Amount of Time: 1 Duration Units: Months Frequency: Continuous Intervention: Relaxation Hemoglobin A1C Date Value Ref Range Status 11/04/2016 12.3 (H) 4.3 - 5.6 % Final Comment: [place] [employer] guidelines indicate that patients with HgbA1c in the range 5.7-6.4% are at increased risk for development of diabetes, and intervention by lifestyle modification may be beneficial. HgbA1c greater or equal to 6.5% is considered diagnostic of diabetes. Hemoglobin A1C (POCT) Date Value Ref Range Status 01/23/2018 7.4 (A) 4.2 - 5.6 % Final Comment: Point of care (POC) Hemoglobin A1c (HGBA1C) testing is intended to assess glucose control and provide a management tool for patients known to have diabetes and their healthcare providers. Target HGBA1C levels may depend on specific clinical circumstances. POC HGBA1C is not intended for use as a diagnostic or screening test; laboratory-based testing should be used for diagnostic purposes. The following information is supplemental and may not be applicable to specific diabetes management situations: The POC device librarian special collections provides a normal range of 4.2% to 6.5% for the HGBA1C POC test. However, the [place] [employer] guidelines indicate that patients with HGBA1C in the range of 5.7% to 6.4% are at increased risk for development of diabetes and that intervention by lifestyle modification may be beneficial. A HGBA1C level greater than or equal to 6.5% is considered diagnostic of diabetes, pending confirmatory testing. Use of HGBA1C testing to evaluate glucose control may not be appropriate for patients with hemoglobin variants or other conditions (e.g. anemia) that alter red blood cell lifespan. PCP: Ivy Jimenez III MD PAST MEDICAL HISTORY Diagnosis Date - Anxiety - Benign hypertension 08/07/2015 - Cannabis abuse 02/23/2010 - Carotid artery disorder (HCC) Right sided - Carotid stenosis 03/11/2010 - Cervical cancer (HCC) - CVA (cerebral infarction) 11/2009 L hemiparesis and decreased coordination - DDD (degenerative disc disease), lumbar 02/23/2010 - Diabetic nephropathy with proteinuria ([facility]) 03/18/2014 - Diabetic ulcer of toe of left foot associated with type 2 diabetes mellitus, limited to breakdown of skin ([facility]) 10/17/2017 - Environmental allergies - Essential hypertension, benign 06/22/2012 - 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 ([facility]) - Hyperlipidemia - Lichen planus 11/09/2010 - Lumbago-sciatica due to displacement of lumbar intervertebral disc 02/23/2010 - Lumbar radiculopathy 10/17/2017 left sciatica - PVD (peripheral vascular disease) ([facility]) 2018 - Spastic neurogenic bladder 05/14/2015 - Tobacco abuse - Type 2 diabetes mellitus with microalbuminuria, without long-term current use of insulin ([facility]) 05/08/2017 Current Outpatient Prescriptions: albuterol HFA (PROVENTIL HFA, VENTOLIN HFA) 90 mcg/actuation inhaler Inhale 2 Puffs as instructed every 6 hours as needed for Wheezing/Shortness of Breath. diphenhydrAMINE (BENADRYL) 25 mg tablet Take 2 tablets by mouth every 6 hours as needed for Itching/Rash. SUMAtriptan (IMITREX) 50 mg tablet take 1 tablet at onset of migraine headache.May repeat every 2 hours as needed for migraine. Max of 4 tablets per day and 9 tablets per faby lisinopril (ZESTRIL,PRINIVIL) 30 mg tablet Take 1 tablet by mouth once daily. ibuprofen (MOTRIN) 600 mg tablet Take 1 tablet by mouth every 6 hours as needed for Pain. mometasone (ELOCON) 0.1 % cream Apply 1 application to affected area once daily. busPIRone (BUSPAR) 10 mg tablet Take 1 tablet by mouth three times daily. atorvastatin (LIPITOR) 40 mg tablet Take 1 tablet by mouth daily at bedtime. insulin glargine (BASAGLAR KWIKPEN U-100 INSULIN) 100 unit/mL (3 mL) inpn Inject 18 Units subcutaneously daily at bedtime. insulin lispro (ADMELOG SOLOSTAR U-100 INSULIN) 100 unit/mL inpn Inject 6 Units subcutaneously three times daily before meals. Insulin [place], Disposable, (PEN NEEDLES) 31 gauge x 1/4 ndle Use one needle with each insulin dose. 4/day ergocalciferol, vitamin D2, (DRISDOL) 50,000 unit capsule Take 1 capsule by mouth once each week. COMPOUNDED PRESCRIPTION Grab Bar Dx: amLODIPine (NORVASC) 10 mg tablet Take 1 tablet by mouth once daily. blood sugar diagnostic (FREESTYLE LITE STRIPS) test strip Test blood sugar(s) 4 times daily. Dx: Type 2 DM - Uncontrolled E11.65 Insulin: Yes lancets (FREESTYLE LANCETS) 28 gauge misc Test blood sugar(s) 4 times daily. Dx: Type 2 DM - Uncontrolled E11.65 Insulin: Yes acetaminophen (TYLENOL ARTHRITIS PAIN) 650 mg CR tablet Take 2 tablets by mouth twice daily as needed for Pain. No current facility-administered medications for this visit. ALLERGIES Allergen Reactions - Penicillins Hives, Swelling Updated 12/22/[address] Chaparrita Hidalgo - Pravachol [Pravasta* Intolerance Fatigue, loss of appetite. - Prozac [Fluoxetine * Mental Status Change sleepiness PAST SURGICAL HISTORY Procedure Laterality Date - AMPUTATION METATARSAL+TOE,SINGLE Left 12/11/2017 partial 5th toe - COLONOSCOP W/ OR W/O BRSH SPEC 04/11/2016 Colonoscopy - EGD W/O OR W/BRUSH/WASH 04/11/2016 EGD - IR VASCULAR ACCESS TEAM PICC INSERTION RADIO 12/26/2017 - LUMBAR OR CAUDAL EPIDURAL STEROID INJECTION 02/21/2011 - PAST SURGICAL HISTORY OF Exploratory surgery for cervical ca REVIEW OF SYSTEMS: CONSTITUTIONAL: No fevers, chills, nightsweats, unintended weight loss HEENT: Denies frequent or severe heaches, nasal congestion/sinus symptoms, problematic allergy problems. EYES: No diplopia or blurry vision. CARDIOVASCULAR: No chest pain, dyspnea, palpitations, orthopnea, PND, ankle edema. PULM: No dyspnea, unexplained cough. GI: No dysphagia/odynophagia, problematic reflux, constipation, diarrhea, changes in stool habits, hematochezia, melena. : No new urinary complaints, including dysuria, gross hematuria or pyuria. NEURO: No new balance problems, peripheral weakness/paresthesias or numbness of concern. MUSC-SKEL: Pain of left foot PSY: No concerns regarding depression, anxiety or panic. INTEGUMENTARY: Callus vs wart of right heel Physical Exam: Constitutional: Pt is a well developed 62 year old female who is alert, oriented, cooperative and in no apparent distress. OBJECTIVE: Vascular: DP and PT pulses nonpalpable b/l. cft is delayed. Skin temperature is warm to cool Dermatological: Nails 1-5 right and 1-4 left are thick, discolored, painful. Skin appears dry and scaly. There is hyperkeratosis to plantar aspect of right heel. No ulceration. No diverging skin lines. No open lesions present. No callosities present. Musculoskeletal/Orthopaedic: Patient has pain to palpation of left 5th metatarsal, left great toe, left forefoot No increased swelling or warmth to left foot to suggest acute charcot. ASSESSMENT: (M79.672) Pain in left foot (primary encounter diagnosis) (Z89.422) Amputated toe of left foot ([facility]) (L85.9) Hyperkeratosis (I73.9) PAD (peripheral artery disease) ([facility]) (B35.1) Onychomycosis (E11.42) Diabetic polyneuropathy associated with type 2 diabetes mellitus ([facility]) PLAN: 1. Discussed left foot pain. Patient has pain to her entire foot and not just her amputation site. She does not have any signs of acute charcot. Recommend xray. I fear that some of this pain could be vascular related. I am going to order repeat pvr. I will order xray of left foot. I discussed placing patient in boot vs surgical shoe. Discussed with patient if she feels competent to be placed in boot. She would rather elect for surgical shoe and she feels competent to use shoe. She was placed in shoe and demonstrated competence. I will provider her with ultram for 5 days but I do not plan on repeating this. If pain persists, would recommend referral to pain management again. 2. Diabetic shoes were ordered today. 3. Debridement of right heel and left heel performed. I suspect this more to be dryness and superficial callus than wart. 4. Toenails debrided today 1-5 right and 1-4 left . 5. F/u in 1 week Allie Pompa DPM PROGRESS Observed: 06/07/2018 Status: COMPLETED Source: [place] 3:[address] [facility] REPOSITORY HNO ID: [id number] Author: Kayley Doyle Ma Service: (none) Author Type: (none) Type: Progress Notes Filed: 06/08/2018 8:54 AM Note Text: AMB ROOMING INTAKE FLOWSHEET DATA Risk Screening Do you have concerns about personal safety or safety in the home?: No Pain Pain Score: 9/10 Pain Location: Foot-Left Description: Stabbing, Sharp Duration Amount of Time: 1 Duration Units: Months Frequency: Continuous Intervention: Relaxation Patient here for pain at site of L 5th amputation site. States pain is constantly at 9/10. Was recently in hospital from for chest pain. CNOV Observed: 06/07/2018 Status: COMPLETED Source: [place] 2:55 PM [facility] REPOSITORY Office Visit (PODIWS) DAVINA GREEN ([id number]) 1955 F Date Time Provider Department 06/07/18 2:55 PM ALLIE POMPA PODIWS During your visit today, we recorded the following information about you: Kayley Doyle Ma 06/08/2018 8:54 AM Signed AMB ROOMING INTAKE FLOWSHEET DATA Risk Screening Do you have concerns about personal safety or safety in the home?: No Pain Pain Score: 9/10 Pain Location: Foot-Left Description: Stabbing, Sharp Duration Amount of Time: 1 Duration Units: Months Frequency: Continuous Intervention: Relaxation Patient here for pain at site of L 5th amputation site. States pain is constantly at 9/10. Was recently in hospital from for chest pain. Allie Pompa DPM 06/08/2018 8:54 AM Signed Follow up podiatric office visit for: Chief Complaint: This 62 year old who presents for left foot pain. Patient complains of left foot pain primarily to site of amputation. She was seen in January and referred to pain management but never went. Patient states the pain went away but recently, she has been experiencing pain to the lateral left foot at site of amputation. She takes tylenol for pain which is not doing anything for the pain. She feels that taking tylenol is like taking nothing. She also has wart to right heel. Patient states that she has had this off/on for years and usually has her peel it off. She states that it recently flared back up and is causing her pain. She recently was admitted to [facility] for chest pain. She states she is no longer smoking. PAIN EVALUATION 06/07/2018 Pain Score: 9 Pain Location: Foot-Left Description: Stabbing;Sharp Duration Amount of Time: 1 Duration Units: Months Frequency: Continuous Intervention: Relaxation Hemoglobin A1C Date Value Ref Range Status 11/04/2016 12.3 (H) 4.3 - 5.6 % Final Comment: [place] [employer] guidelines indicate that patients with HgbA1c in the range 5.7-6.4% are at increased risk for development of diabetes, and intervention by lifestyle modification may be beneficial. HgbA1c greater or equal to 6.5% is considered diagnostic of diabetes. Hemoglobin A1C (POCT) Date Value Ref Range Status 01/23/2018 7.4 (A) 4.2 - 5.6 % Final Comment: Point of care (POC) Hemoglobin A1c (HGBA1C) testing is intended to assess glucose control and provide a management tool for patients known to have diabetes and their healthcare providers. Target HGBA1C levels may depend on specific clinical circumstances. POC HGBA1C is not intended for use as a diagnostic or screening test; laboratory-based testing should be used for diagnostic purposes. The following information is supplemental and may not be applicable to specific diabetes management situations: The POC device librarian special collections provides a normal range of 4.2% to 6.5% for the HGBA1C POC test. However, the [place] [employer] guidelines indicate that patients with HGBA1C in the range of 5.7% to 6.4% are at increased risk for development of diabetes and that intervention by lifestyle modification may be beneficial. A HGBA1C level greater than or equal to 6.5% is considered diagnostic of diabetes, pending confirmatory testing. Use of HGBA1C testing to evaluate glucose control may not be appropriate for patients with hemoglobin variants or other conditions (e.g. anemia) that alter red blood cell lifespan. PCP: Ivy Jimenez III MD PAST MEDICAL HISTORY Diagnosis Date - Anxiety - Benign hypertension 08/07/2015 - Cannabis abuse 02/23/2010 - Carotid artery disorder (HCC) Right sided - Carotid stenosis 03/11/2010 - Cervical cancer ([facility]) - CVA (cerebral infarction) 11/2009 L hemiparesis and decreased coordination - DDD (degenerative disc disease), lumbar 02/23/2010 - Diabetic nephropathy with proteinuria ([facility]) 03/18/2014 - Diabetic ulcer of toe of left foot associated with type 2 diabetes mellitus, limited to breakdown of skin ([facility]) 10/17/2017 - Environmental allergies - Essential hypertension, benign 06/22/2012 - 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 ([facility]) - Hyperlipidemia - Lichen planus 11/09/2010 - Lumbago-sciatica due to displacement of lumbar intervertebral disc 02/23/2010 - Lumbar radiculopathy 10/17/2017 left sciatica - PVD (peripheral vascular disease) ([facility]) 2018 - Spastic neurogenic bladder 05/14/2015 - Tobacco abuse - Type 2 diabetes mellitus with microalbuminuria, without long-term current use of insulin ([facility]) 05/08/2017 Current Outpatient Prescriptions: albuterol HFA (PROVENTIL HFA, VENTOLIN HFA) 90 mcg/actuation inhaler Inhale 2 Puffs as instructed every 6 hours as needed for Wheezing/Shortness of Breath. diphenhydrAMINE (BENADRYL) 25 mg tablet Take 2 tablets by mouth every 6 hours as needed for Itching/Rash. SUMAtriptan (IMITREX) 50 mg tablet take 1 tablet at onset of migraine headache.May repeat every 2 hours as needed for migraine. Max of 4 tablets per day and 9 tablets per faby lisinopril (ZESTRIL,PRINIVIL) 30 mg tablet Take 1 tablet by mouth once daily. ibuprofen (MOTRIN) 600 mg tablet Take 1 tablet by mouth every 6 hours as needed for Pain. mometasone (ELOCON) 0.1 % cream Apply 1 application to affected area once daily. busPIRone (BUSPAR) 10 mg tablet Take 1 tablet by mouth three times daily. atorvastatin (LIPITOR) 40 mg tablet Take 1 tablet by mouth daily at bedtime. insulin glargine (BASAGLAR KWIKPEN U-100 INSULIN) 100 unit/mL (3 mL) inpn Inject 18 Units subcutaneously daily at bedtime. insulin lispro (ADMELOG SOLOSTAR U-100 INSULIN) 100 unit/mL inpn Inject 6 Units subcutaneously three times daily before meals. Insulin [place], Disposable, (PEN NEEDLES) 31 gauge x 1/4 ndle Use one needle with each insulin dose. 4/day ergocalciferol, vitamin D2, (DRISDOL) 50,000 unit capsule Take 1 capsule by mouth once each week. COMPOUNDED PRESCRIPTION Grab Bar Dx: amLODIPine (NORVASC) 10 mg tablet Take 1 tablet by mouth once daily. blood sugar diagnostic (FREESTYLE LITE STRIPS) test strip Test blood sugar(s) 4 times daily. Dx: Type 2 DM - Uncontrolled E11.65 Insulin: Yes lancets (FREESTYLE LANCETS) 28 gauge misc Test blood sugar(s) 4 times daily. Dx: Type 2 DM - Uncontrolled E11.65 Insulin: Yes acetaminophen (TYLENOL ARTHRITIS PAIN) 650 mg CR tablet Take 2 tablets by mouth twice daily as needed for Pain. No current facility-administered medications for this visit. ALLERGIES Allergen Reactions - Penicillins Hives, Swelling Updated 12/22/[address] Chaparrita Hidalgo - Pravachol [Pravasta* Intolerance Fatigue, loss of appetite. - Prozac [Fluoxetine * Mental Status Change sleepiness PAST SURGICAL HISTORY Procedure Laterality Date - AMPUTATION METATARSAL+TOE,SINGLE Left 12/11/2017 partial 5th toe - COLONOSCOP W/ OR W/O BRSH SPEC 04/11/2016 Colonoscopy - EGD W/O OR W/BRUSH/WASH 04/11/2016 EGD - IR VASCULAR ACCESS TEAM PICC INSERTION RADIO 12/26/2017 - LUMBAR OR CAUDAL EPIDURAL STEROID INJECTION 02/21/2011 - PAST SURGICAL HISTORY OF Exploratory surgery for cervical ca REVIEW OF SYSTEMS: CONSTITUTIONAL: No fevers, chills, nightsweats, unintended weight loss HEENT: Denies frequent or severe heaches, nasal congestion/sinus symptoms, problematic allergy problems. EYES: No diplopia or blurry vision. CARDIOVASCULAR: No chest pain, dyspnea, palpitations, orthopnea, PND, ankle edema. PULM: No dyspnea, unexplained cough. GI: No dysphagia/odynophagia, problematic reflux, constipation, diarrhea, changes in stool habits, hematochezia, melena. : No new urinary complaints, including dysuria, gross hematuria or pyuria. NEURO: No new balance problems, peripheral weakness/paresthesias or numbness of concern. MUSC-SKEL: Pain of left foot PSY: No concerns regarding depression, anxiety or panic. INTEGUMENTARY: Callus vs wart of right heel Physical Exam: Constitutional: Pt is a well developed 62 year old female who is alert, oriented, cooperative and in no apparent distress. OBJECTIVE: Vascular: DP and PT pulses nonpalpable b/l. cft is delayed. Skin temperature is warm to cool Dermatological: Nails 1-5 right and 1-4 left are thick, discolored, painful. Skin appears dry and scaly. There is hyperkeratosis to plantar aspect of right heel. No ulceration. No diverging skin lines. No open lesions present. No callosities present. Musculoskeletal/Orthopaedic: Patient has pain to palpation of left 5th metatarsal, left great toe, left forefoot No increased swelling or warmth to left foot to suggest acute charcot. ASSESSMENT: (M79.672) Pain in left foot (primary encounter diagnosis) (Z89.422) Amputated toe of left foot ([facility]) (L85.9) Hyperkeratosis (I73.9) PAD (peripheral artery disease) ([facility]) (B35.1) Onychomycosis (E11.42) Diabetic polyneuropathy associated with type 2 diabetes mellitus ([facility]) PLAN: 1. Discussed left foot pain. Patient has pain to her entire foot and not just her amputation site. She does not have any signs of acute charcot. Recommend xray. I fear that some of this pain could be vascular related. I am going to order repeat pvr. I will order xray of left foot. I discussed placing patient in boot vs surgical shoe. Discussed with patient if she feels competent to be placed in boot. She would rather elect for surgical shoe and she feels competent to use shoe. She was placed in shoe and demonstrated competence. I will provider her with ultram for 5 days but I do not plan on repeating this. If pain persists, would recommend referral to pain management again. 2. Diabetic shoes were ordered today. 3. Debridement of right heel and left heel performed. I suspect this more to be dryness and superficial callus than wart. 4. Toenails debrided today 1-5 right and 1-4 left . 5. F/u in 1 week NOA Hernandez Ma 06/07/2018 3:37 PM Signed Xray today Wear Post of shoe on left foot. Lotion daily. Kayley Doyle Ma 06/08/2018 8:[address] Pompa Davina was provided with Post op shoe, size S, and instructed/educated in its application, wear, and care. All questions were answered, and patient was able to demonstrate competence with the necessary skills to utilize the above equipment. Kayley Doyle Ma Referring Provider: SELF [[id number]] Allergies As of Date: 06/07/2018 Noted Allergy Reaction PENICILLINS 01/28/2010 4 - Hives 7 - Swelling Comments: Updated 12/22/[address] Chaparrita Hidalgo PRAVACHOL (PRAVASTATIN SODIUM) 03/04/2010 5 - Intolerance Comments: Fatigue, loss of appetite. PROZAC (FLUOXETINE HCL) 08/07/2015 1 - Mental Status Change Comments: sleepiness Date Reviewed: 06/07/2018 Reviewed by: Kayley Dyole Ma - Fully Assessed Reason for Visit: Established Patient [175] Primary Visit Diagnosis:Pain in left foot [M79.672] Other Visit Diagnoses:Amputated toe of left foot ([facility]) [Z89.422] Hyperkeratosis [L85.9] PAD (peripheral artery disease) ([facility]) [I73.9] Onychomycosis [B35.1] Diabetic polyneuropathy associated with type 2 diabetes mellitus ([facility]) [E11.42] Order(s):XR FOOT GENERAL 3V AP/LAT/OBL LT [[id number]] Order #: [id number] FUTURE PVR ANK PRESS [facility] [[id number]] Order #: [id number] FUTURE traMADol (ULTRAM) 50 mg tabletTake 1 tablet by mouth every 8 hours as needed for up to 5 days.Disp: 15 tabletRfl: 0 DIAB SHOE FOR DENSITY INSERT [[id number]] Order #: [id number] Prescriptions as of 06/07/2018 Sig: TRAMADOL 50 MG TABLET Take 1 tablet by mouth every * ALBUTEROL SULFATE HFA 90 MCG/* Inhale 2 Puffs as instructed * DIPHENHYDRAMINE 25 MG TABLET Take 2 tablets by mouth every* SUMATRIPTAN 50 MG TABLET take 1 tablet at onset of bettie* LISINOPRIL 30 MG TABLET Take 1 tablet by mouth once d* IBUPROFEN 600 MG TABLET Take 1 tablet by mouth every * MOMETASONE 0.1 % TOPICAL CREAM Apply 1 application to affect* BUSPIRONE 10 MG TABLET Take 1 tablet by mouth three * ATORVASTATIN 40 MG TABLET Take 1 tablet by mouth daily * INSULIN GLARGINE (U-100) 100 * Inject 18 Units subcutaneousl* INSULIN LISPRO (U-100) 100 UN* Inject 6 Units subcutaneously* PEN NEEDLE, DIABETIC 31 GAUGE* Use one needle with each insu* ERGOCALCIFEROL (VITAMIN D2) 5* Take 1 capsule by mouth once * COMPOUNDED PRESCRIPTION Grab Bar Dx: AMLODIPINE 10 MG TABLET Take 1 tablet by mouth once d* BLOOD SUGAR DIAGNOSTIC STRIPS Test blood sugar(s) 4 times d* LANCETS 28 GAUGE Test blood sugar(s) 4 times d* ACETAMINOPHEN ER 650 MG TABLE* Take 2 tablets by mouth twice* Problem List As Of Date 06/07/2018 Noted Resolved Stroke/Cerebrovascular Accident [I63.9] INVALID FOR* Lumbago-Sciatica due to Displacement of Lumbar *INVALID FOR* DDD (Degenerative Disc Disease), Lumbar [M51.36]INVALID FOR* Cannabis Abuse [F12.10] INVALID FOR* Lichen planus [L43.9] INVALID FOR* More... Lumbar facet arthropathy [M47.816] INVALID FOR* Essential hypertension, benign [I10] INVALID FOR* More... Nasal obstruction [J34.89] INVALID FOR* Myofascial pain [M79.18] INVALID FOR* Diabetic nephropathy with proteinuria (HCC) [E1*INVALID FOR* Hyperlipidemia with target LDL less than 100 [E*INVALID FOR* More... History of cerebrovascular accident (CVA) with *INVALID FOR* More... 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 Diabetic ulcer of toe of left foot associated w*INVALID FOR* More... Lumbar radiculopathy [M54.16] INVALID FOR* More... Gangrene (HCC) [I96] INVALID FOR*12/25/2017 More... Wound abscess [XVM0967] INVALID FOR* More... Depression [F32.9] INVALID FOR* More... Diabetes (HCC) [E11.9] INVALID FOR* More... Tobacco abuse [Z72.0] INVALID FOR* More... Abscess [L02.91] INVALID FOR*12/25/2017 More... Foot abscess, left [L02.612] INVALID FOR* Penicillin allergy [Z88.0] INVALID FOR* C. difficile diarrhea [A04.72] INVALID FOR*01/07/2018 More... Hypokalemia [E87.6] INVALID FOR*12/31/2017 More... Malnutrition of moderate degree (HCC) [E44.0] INVALID FOR*01/08/2018 More... Normocytic anemia [D64.9] INVALID FOR* More... Electrolyte imbalance [E87.8] INVALID FOR*01/08/2018 More... CKD (chronic kidney disease), stage III (HCC) [*INVALID FOR* Other instructions from your clinician: Xray today Wear Post of shoe on left foot. Lotion daily. Prescriptions ordered this encounter Disp Refills Start End TRAMADOL 50 MG TABLET 15 t* 0 06/07/2018 06/12/2018 Class: Print RX Cmt: Left foot pain Route: ORAL Sig: Take 1 tablet by mouth every 8 hours as needed for up to 5 days. Disposition: Return in about 1 week (around 06/14/2018) for follow up. Follow-up and Disposition History Recorded Encounter Status:Closed by ALLIE POMPA DPM on 06/08/18 PROGRESS Observed: 06/05/2018 Status: COMPLETED Source: [place] 10:[address] [facility] [place] REPOSITORY O ID: [id number] Author: Napoleon Pizarro (Ines) Service: (none) Author Type: Registered Nurse Type: Progress Notes Filed: 06/05/2018 11:57 AM Note Text: TRANSITION CARE MANAGEMENT (TCM) FOLLOW-UP NOTE Provider Action/FYI 1. Call to Pt, she denies CP, Sob, Pt states she was not ordered a Nebulizer but ordered a Ventolin inhaler which she picked up and is using as directed, Pt will bring all medications she is taking to PCP Appt 06/14/18 2. Pt states no bleeding is present unless she scratches her Abdomen or left Leg, is using Mometasone cream for her skin. 3. Re- requested Discharge Summary, Medication, Diagnostics, labs list 06/04/18 left a vm for [facility] Medical records Dept. 4. Provided Wall Taper Helper contact number for needs or concerns prior to Appt with Pcp 06/14/18, rescheduled from 06/08/18 (40 min spk with Sandy Smart MA in office, no sooner appt available with 40 min slot) Patient identified by name and date of : YES Spoke to patient and spouse Summary: F/u on Nebulizer Concerns: Pt denies needs or concerns Wall Taper Helper plan for next outreach: Follow for Care Needs Early symptom awareness and prevention of complications Signature Juarez Bender RN June 05, 2018 JOSE CARLOSTOUTREACH Observed: 06/05/2018 Status: COMPLETED Source: [place] 12:00 AM [facility] REPOSITORY Patient Outreach (FAMPWS) DAVINA GREEN ([id number]) 1955 F Date Time Provider Department 06/05/18 NAPOLEON PIZARRO (RN) FAMPWS During your visit today, we recorded the following information about you: Juarez Bender RN 06/05/2018 11:57 AM Signed TRANSITION CARE MANAGEMENT (TCM) FOLLOW-UP NOTE Provider Action/FYI 1. Call to Pt, she denies CP, Sob, Pt states she was not ordered a Nebulizer but ordered a Ventolin inhaler which she picked up and is using as directed, Pt will bring all medications she is taking to PCP Appt 06/14/18 2. Pt states no bleeding is present unless she scratches her Abdomen or left Leg, is using Mometasone cream for her skin. 3. Re- requested Discharge Summary, Medication, Diagnostics, labs list 06/04/18 left a vm for [facility] Medical records Dept. 4. Provided Wall Taper Helper contact number for needs or concerns prior to Appt with Pcp 06/14/18, rescheduled from 06/08/18 (40 min spk with Sandy Smart MA in office, no sooner appt available with 40 min slot) Patient identified by name and date of : YES Spoke to patient and spouse Summary: F/u on Nebulizer Concerns: Pt denies needs or concerns Wall Taper Helper plan for next outreach: Follow for Care Needs Early symptom awareness and prevention of complications Signature Juarez Bender RN June 05, 2018 Allergies As of Date: 06/05/2018 Noted Allergy Reaction PENICILLINS 01/28/2010 4 - Hives 7 - Swelling Comments: Updated 12/22/[address] Chaparrita Hidalgo PRAVACHOL (PRAVASTATIN SODIUM) 03/04/2010 5 - Intolerance Comments: Fatigue, loss of appetite. PROZAC (FLUOXETINE HCL) 08/07/2015 1 - Mental Status Change Comments: sleepiness Date Reviewed: 04/11/2018 Reviewed by: Jarocho ([facility]) BENTLEY Arellano - Fully Assessed Reason for Visit: [facility] Follow Up [6121] Cmt: Inhaler Reason For Visit History Recorded Prescriptions as of 06/05/2018 Sig: ALBUTEROL SULFATE HFA 90 MCG/* Inhale 2 Puffs as instructed * DIPHENHYDRAMINE 25 MG TABLET Take 2 tablets by mouth every* SUMATRIPTAN 50 MG TABLET take 1 tablet at onset of bettie* LISINOPRIL 30 MG TABLET Take 1 tablet by mouth once d* IBUPROFEN 600 MG TABLET Take 1 tablet by mouth every * MOMETASONE 0.1 % TOPICAL CREAM Apply 1 application to affect* BUSPIRONE 10 MG TABLET Take 1 tablet by mouth three * ATORVASTATIN 40 MG TABLET Take 1 tablet by mouth daily * INSULIN GLARGINE (U-100) 100 * Inject 18 Units subcutaneousl* INSULIN LISPRO (U-100) 100 UN* Inject 6 Units subcutaneously* PEN NEEDLE, DIABETIC 31 GAUGE* Use one needle with each insu* ERGOCALCIFEROL (VITAMIN D2) 5* Take 1 capsule by mouth once * COMPOUNDED PRESCRIPTION Grab Bar Dx: AMLODIPINE 10 MG TABLET Take 1 tablet by mouth once d* BLOOD SUGAR DIAGNOSTIC STRIPS Test blood sugar(s) 4 times d* LANCETS 28 GAUGE Test blood sugar(s) 4 times d* ACETAMINOPHEN ER 650 MG TABLE* Take 2 tablets by mouth twice* Problem List As Of Date 06/05/2018 Noted Resolved Stroke/Cerebrovascular Accident [I63.9] INVALID FOR* Lumbago-Sciatica due to Displacement of Lumbar *INVALID FOR* DDD (Degenerative Disc Disease), Lumbar [M51.36]INVALID FOR* Cannabis Abuse [F12.10] INVALID FOR* Lichen planus [L43.9] INVALID FOR* More... Lumbar facet arthropathy [M47.816] INVALID FOR* Essential hypertension, benign [I10] INVALID FOR* More... Nasal obstruction [J34.89] INVALID FOR* Myofascial pain [M79.18] INVALID FOR* Diabetic nephropathy with proteinuria (HCC) [E1*INVALID FOR* Hyperlipidemia with target LDL less than 100 [E*INVALID FOR* More... History of cerebrovascular accident (CVA) with *INVALID FOR* More... 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 Diabetic ulcer of toe of left foot associated w*INVALID FOR* More... Lumbar radiculopathy [M54.16] INVALID FOR* More... Gangrene (HCC) [I96] INVALID FOR*12/25/2017 More... Wound abscess [EMI2923] INVALID FOR* More... Depression [F32.9] INVALID FOR* More... Diabetes (HCC) [E11.9] INVALID FOR* More... Tobacco abuse [Z72.0] INVALID FOR* More... Abscess [L02.91] INVALID FOR*12/25/2017 More... Foot abscess, left [L02.612] INVALID FOR* Penicillin allergy [Z88.0] INVALID FOR* C. difficile diarrhea [A04.72] INVALID FOR*01/07/2018 More... Hypokalemia [E87.6] INVALID FOR*12/31/2017 More... Malnutrition of moderate degree (HCC) [E44.0] INVALID FOR*01/08/2018 More... Normocytic anemia [D64.9] INVALID FOR* More... Electrolyte imbalance [E87.8] INVALID FOR*01/08/2018 More... CKD (chronic kidney disease), stage III (HCC) [*INVALID FOR* Encounter Status:Closed by JUAREZ BENDER on 06/05/18 PROGRESS Observed: 06/04/2018 Status: COMPLETED Source: [place] 5:31 PM [facility] REPOSITORY HNO ID: [id number] Author: Napoleon Pizarro (Rn) Service: (none) Author Type: Registered Nurse Type: Progress Notes Filed: 06/04/2018 5:40 PM Note Text: TRANSITION CARE MANAGEMENT (TCM) FOLLOW-UP NOTE Provider Action/FYI Call to [phone] Left a with Medical records Jacy Dejesus to request Medication list, diagnostics/ labs, even if Discharge Summary is not available. (2nd Request) Patient identified by name and date of : YES Wall Taper Helper plan for next outreach: Follow for Care Needs Signature Juarez Bender RN June 04, 2018 PROGRESS Observed: 06/04/2018 Status: COMPLETED Source: [place] 1:07 PM [facility] REPOSITORY HNO ID: [id number] Author: Ivy Jimenez III Service: (none) Author Type: Physician Type: Progress Notes Filed: 06/04/2018 1:07 PM Note Text: Noted all Ivy Jimenez III, MD, [facility] Observed: 06/04/2018 Status: COMPLETED Source: [place] 12:00 AM [facility] REPOSITORY Patient Outreach (FAMPWS) DAVINA GREEN ([id number]) 1955 F Date Time Provider Department 06/04/18 NAPOLEON PIZARRO (RN) FAMPWS During your visit today, we recorded the following information about you: Juarez Bender RN 06/04/2018 5:40 PM Signed TRANSITION CARE MANAGEMENT (TCM) FOLLOW-UP NOTE Provider Action/FYI Call to [place] [phone] Left a vm with Medical records Jacy Dejesus to request Medication list, diagnostics/ labs, even if Discharge Summary is not available. (2nd Request) Patient identified by name and date of : YES Wall Taper Helper plan for next outreach: Follow for Care Needs Signature Juarez Bender RN June 04, 2018 Allergies As of Date: 06/04/2018 Noted Allergy Reaction PENICILLINS 01/28/2010 4 - Hives 7 - Swelling Comments: Updated 12/22/[address] Chaparrita Hidalgo PRAVACHOL (PRAVASTATIN SODIUM) 03/04/2010 5 - Intolerance Comments: Fatigue, loss of appetite. PROZAC (FLUOXETINE HCL) 08/07/2015 1 - Mental Status Change Comments: sleepiness Date Reviewed: 04/11/2018 Reviewed by: Jarocho ([facility]) BENTLEY Arellano - Fully Assessed Reason for Visit: [facility] Follow Up [8140] Cmt: Medical Records / Medication list Request Reason For Visit History Recorded Prescriptions as of 06/04/2018 Sig: ALBUTEROL SULFATE HFA 90 MCG/* Inhale 2 Puffs as instructed * INHALATIONAL SPACING DEVICE 1 Device one time only for 1 * DIPHENHYDRAMINE 25 MG TABLET Take 2 tablets by mouth every* SUMATRIPTAN 50 MG TABLET take 1 tablet at onset of bettie* LISINOPRIL 30 MG TABLET Take 1 tablet by mouth once d* IBUPROFEN 600 MG TABLET Take 1 tablet by mouth every * MOMETASONE 0.1 % TOPICAL CREAM Apply 1 application to affect* BUSPIRONE 10 MG TABLET Take 1 tablet by mouth three * ATORVASTATIN 40 MG TABLET Take 1 tablet by mouth daily * INSULIN GLARGINE (U-100) 100 * Inject 18 Units subcutaneousl* INSULIN LISPRO (U-100) 100 UN* Inject 6 Units subcutaneously* PEN NEEDLE, DIABETIC 31 GAUGE* Use one needle with each insu* ERGOCALCIFEROL (VITAMIN D2) 5* Take 1 capsule by mouth once * COMPOUNDED PRESCRIPTION Grab Bar Dx: AMLODIPINE 10 MG TABLET Take 1 tablet by mouth once d* BLOOD SUGAR DIAGNOSTIC STRIPS Test blood sugar(s) 4 times d* LANCETS 28 GAUGE Test blood sugar(s) 4 times d* ACETAMINOPHEN ER 650 MG TABLE* Take 2 tablets by mouth twice* Problem List As Of Date 06/04/2018 Noted Resolved Stroke/Cerebrovascular Accident [I63.9] INVALID FOR* Lumbago-Sciatica due to Displacement of Lumbar *INVALID FOR* DDD (Degenerative Disc Disease), Lumbar [M51.36]INVALID FOR* Cannabis Abuse [F12.10] INVALID FOR* Lichen planus [L43.9] INVALID FOR* More... Lumbar facet arthropathy [M47.816] INVALID FOR* Essential hypertension, benign [I10] INVALID FOR* More... Nasal obstruction [J34.89] INVALID FOR* Myofascial pain [M79.18] INVALID FOR* Diabetic nephropathy with proteinuria (HCC) [E1*INVALID FOR* Hyperlipidemia with target LDL less than 100 [E*INVALID FOR* More... History of cerebrovascular accident (CVA) with *INVALID FOR* More... 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 Diabetic ulcer of toe of left foot associated w*INVALID FOR* More... Lumbar radiculopathy [M54.16] INVALID FOR* More... Gangrene (HCC) [I96] INVALID FOR*12/25/2017 More... Wound abscess [DZC4531] INVALID FOR* More... Depression [F32.9] INVALID FOR* More... Diabetes (HCC) [E11.9] INVALID FOR* More... Tobacco abuse [Z72.0] INVALID FOR* More... Abscess [L02.91] INVALID FOR*12/25/2017 More... Foot abscess, left [L02.612] INVALID FOR* Penicillin allergy [Z88.0] INVALID FOR* C. difficile diarrhea [A04.72] INVALID FOR*01/07/2018 More... Hypokalemia [E87.6] INVALID FOR*12/31/2017 More... Malnutrition of moderate degree (HCC) [E44.0] INVALID FOR*01/08/2018 More... Normocytic anemia [D64.9] INVALID FOR* More... Electrolyte imbalance [E87.8] INVALID FOR*01/08/2018 More... CKD (chronic kidney disease), stage III (HCC) [*INVALID FOR* Encounter Status:Closed by JUAREZ BENDER on 06/04/18 PROGRESS Observed: 06/01/2018 Status: COMPLETED Source: [place] 1:[address] [facility] REPOSITORY O ID: [id number] Author: Napoleon Pizarro (Rn) Service: (none) Author Type: Registered Nurse Type: Progress Notes Filed: 06/04/2018 1:07 PM Note Text: TRANSITION CARE MANAGEMENT (TCM) INITIAL CONTACT Provider Action/FYI: 1. Call to Pt who denies CP, has little bit of SOB, improved from Adm, not as bad as it was. Pt states she has Lasix 40 mg Po daily ordered, Pt reports has filled all new medications 2. Medications reviewed with Pt, she provided new medications via phone, Pt will bring Discharge instructions to Appt 06/08/18. (Awaiting medication list from [facility]) 3. Pt states prior to Admission she had a small amt of bleeding from Right leg sores, no noted increase in bleeding previous sores. Pt denies bleeding from any other site. Pt states was ordered Clopidogrel 75 mg po daily 4. Provided Wall Taper Helper contact info for questions or concerns Initial contact with patient post discharge, spoke to Pt. Patient identified by name and . TRANSITION CARE MANAGEMENT: Date of Outreach: 06/01/2018 Outreach Attempt 1: Contact Made Date of Discharge 05/31/2018 Some recent data might be hidden SUMMARY: -Pt discharged from [facility] on 05/31/18. -Follow up appointment : Pt cancelled 06/04/18 Appt, rescheduled Appt 06/08/[address] Jimenez. -Medication review done ( 06/01/18 medications reviewed with Pt , she provided new medications, Pt will bring Discharge instructions to Appt 06/08/18) Awaiting medication list from [facility] to confirm medications ordered ) -Admitted for: Chest tightness, Sob (transfer from [facility]) CONCERNS: Pt noted she is calling [facility] related to authorization for the Nebulizer, she states has a prescription from Discharge. NEW MEDICATIONS: Per Pt the following list of new medications ordered at Discharge by [facility] ASA 81 mg po daily Carvedilol 3.125 mg po Bid Clopidogrel 75 mg po daily [place] 3-1000 mg po Bid MEDS HELD/DISCONTINUED: BRIEF HOSPITAL COURSE: Discharge Excerpt from [facility] Date of Service: 05/24/18 Chief Complaint: Shortness of breath History of Present Illness: The patient is a 62 F who presents with shortness of breath. It began about 2-3 hours before presentation. She also complains of chest tightness which is 10 out of 10. She complains of a productive cough and some diarrhea. She was recently hospitalized for acute congestive heart failure. She was found to have triple-vessel disease. She was transferred to [facility] because it was felt she like he needed a CABG. She did not undergo CABG but did undergo stenting and was told that she likely needs another stent. Physical Examination: Afebrile blood pressure 180/93 heart rate 104 pulse ox 87% on room air Heart regular rhythm tachycardia Patient has bilateral rales increased work of breathing speaking in short sentences Abdomen soft Extremities are nontender without edema Alert Test Results: EKG shows sinus rhythm at a rate of 102. Labs notable for creatinine 1.35. Troponin is 1.6. BNP is 3512. Emergency Department Course and Treatment: Patient was given aspirin and placed on monitoring analyst. She was placed on BiPAP. She did have improvement on BiPAP. Her chest x-ray shows progressing right alveolar disease. On my review this does appear this was CHF which fits her clinical picture. Given her troponin of 1.6 I do believe this is an STEMI. We discussed anticoagulation but she states that she had significant bleeding complications at the time of her heart cath and she may also need surgical intervention given her history. Therefore we deferred on anticoagulation. She was given IV Lasix. We also applied Nitropaste to the chest. Patient will be transferred to [facility]. Treatment Plan: Disposition: Transfer Impression: NSTEMI CHF Pt was transferred from [facility] to [facility]. 06/01/18 Discharge Medical has not been received from [facility] ( faxed request 05/31/18) Thank You, Juarez Bender RN June 01, 2018 1:32 PM CBC Collected: 06/01/2018 Status: CANCELLED Source: [place] 12:30 AM [facility] RE[facility] Order Comment: TEST CBC WAS CANCELLED, 06/01/2018 18:30 ?Cancel Reason: Patient Discharged. TYPE CODE TESTS RESULT OUT OF REFERENCE UNITS RANGE LAB WBCR(LOINC ) WBC Canceled LAB NRBC(LOINC ) NUCLEATED RBC Canceled LAB RBCCT(LOIN C) RBC Canceled LAB HGB(LOINC) HGB Canceled LAB HCT(LOINC) HCT Canceled LAB MCV(LOINC) MCV Canceled LAB MCHC2(LOIN C) MCHC Canceled LAB PLTCT(LOIN C) PLT Canceled LAB RDWCV(LOIN C) RDW-CV Canceled Performed By: #### CBC #### [facility] [address] [place] [address] RENAL FUNCTION PANEL Collected: 06/01/2018 Status: CANCELLED Source: [place] 12:30 AM [facility] REPOSIT[facility] Order Comment: TEST RENAL FUNCTION PANEL WAS CANCELLED, 06/01/2018 18:30 ?Cancel Reason: Patient Discharged. TYPE CODE TESTS RESULT OUT OF REFERENCE UNITS RANGE LAB GLU(LOINC) GLUCOSE Canceled LAB SOD(LOINC) SODIUM Canceled LAB K(LOINC) POTASSIUM Canceled LAB CHLOR(LOIN C) CHLORIDE Canceled LAB BIC(LOINC) BICARBONATE Canceled LAB ANGAP(LOIN C) ANION GAP Canceled LAB UREA(LOINC ) UREA NITROGEN Canceled LAB CREA(LOINC ) CREATININE Canceled LAB GFRFN(LOIN C) GFR-NON AM. Canceled LAB GFRAA(LOIN C) GFR- AM. Canceled Result Comment: CALCULATIONS OF ESTIMATED GFR ARE PERFORMED USING THE MDRD STUDY EQUATION FOR THE IDMS-TRACEABLE CREATININE METHODS. CLIN CHEM 2007;53:766-72 LAB CA(LOINC) CALCIUM Canceled LAB PHOS(LOINC) PHOSPHORUS Canceled Result Comment: The performance characteristics of phosphorus testing in heparinized plasma have been validated by the individual laboratory site where testing is performed. Testing on heparinized plasma is not approved by the FDA; however, such approval is not necessary. LAB ALB(LOINC) Canceled ALBUMIN Performed By: #### RENAL #### [facility] [address] [place] [address] CNPTOUTREACH Observed: 06/01/2018 Status: COMPLETED Source: [place] 12:00 AM [facility] REPOSITORY Patient Outreach (FAMPWS) DAVINA GREEN ([id number]) 1955 F Date Time Provider Department 06/01/18 NAPOLEON PIZARRO (RN) CAMMYPWS During your visit today, we recorded the following information about you: Juarez Bender RN 06/04/2018 1:07 PM Signed TRANSITION CARE MANAGEMENT (TCM) INITIAL CONTACT Provider Action/FYI: 1. Call to Pt who denies CP, has little bit of SOB, improved from Adm, not as bad as it was. Pt states she has Lasix 40 mg Po daily ordered, Pt reports has filled all new medications 2. Medications reviewed with Pt, she provided new medications via phone, Pt will bring Discharge instructions to Appt 06/08/18. (Awaiting medication list from [facility]) 3. Pt states prior to Admission she had a small amt of bleeding from Right leg sores, no noted increase in bleeding previous sores. Pt denies bleeding from any other site. Pt states was ordered Clopidogrel 75 mg po daily 4. Provided Wall Taper Helper contact info for questions or concerns Initial contact with patient post discharge, spoke to Pt. Patient identified by name and . TRANSITION CARE MANAGEMENT: Date of Outreach: 06/01/2018 Outreach Attempt 1: Contact Made Date of Discharge 05/31/2018 Some recent data might be hidden SUMMARY: -Pt discharged from [facility] on 05/31/18. -Follow up appointment : Pt cancelled 06/04/18 Appt, rescheduled Appt 06/08/[address] Jimenez. -Medication review done ( 06/01/18 medications reviewed with Pt , she provided new medications, Pt will bring Discharge instructions to Appt 06/08/18) Awaiting medication list from [facility] to confirm medications ordered ) -Admitted for: Chest tightness, Sob (transfer from [facility]) CONCERNS: Pt noted she is calling [facility] related to authorization for the Nebulizer, she states has a prescription from Discharge. NEW MEDICATIONS: Per Pt the following list of new medications ordered at Discharge by [facility] ASA 81 mg po daily Carvedilol 3.125 mg po Bid Clopidogrel 75 mg po daily [place] 3-1000 mg po Bid MEDS HELD/DISCONTINUED: BRIEF HOSPITAL COURSE: Discharge Excerpt from [facility] Date of Service: 05/24/18 Chief Complaint: Shortness of breath History of Present Illness: The patient is a 62 F who presents with shortness of breath. It began about 2-3 hours before presentation. She also complains of chest tightness which is 10 out of 10. She complains of a productive cough and some diarrhea. She was recently hospitalized for acute congestive heart failure. She was found to have triple-vessel disease. She was transferred to [facility] because it was felt she like he needed a CABG. She did not undergo CABG but did undergo stenting and was told that she likely needs another stent. Physical Examination: Afebrile blood pressure 180/93 heart rate 104 pulse ox 87% on room air Heart regular rhythm tachycardia Patient has bilateral rales increased work of breathing speaking in short sentences Abdomen soft Extremities are nontender without edema Alert Test Results: EKG shows sinus rhythm at a rate of 102. Labs notable for creatinine 1.35. Troponin is 1.6. BNP is 3512. Emergency Department Course and Treatment: Patient was given aspirin and placed on monitoring analyst. She was placed on BiPAP. She did have improvement on BiPAP. Her chest x-ray shows progressing right alveolar disease. On my review this does appear this was CHF which fits her clinical picture. Given her troponin of 1.6 I do believe this is an STEMI. We discussed anticoagulation but she states that she had significant bleeding complications at the time of her heart cath and she may also need surgical intervention given her history. Therefore we deferred on anticoagulation. She was given IV Lasix. We also applied Nitropaste to the chest. Patient will be transferred to [facility]. Treatment Plan: Disposition: Transfer Impression: NSTEMI CHF Pt was transferred from [facility] to [facility]. 06/01/18 Discharge Medical has not been received from [facility] ( faxed request 05/31/18) Thank You, Juarez Bender RN June 01, 2018 1:32 PM Ivy Jimenez III MD 06/04/2018 1:07 PM Signed Noted all Ivy Jimenez III, MD, FAAFP Allergies As of Date: 06/01/2018 Noted Allergy Reaction PENICILLINS 01/28/2010 4 - Hives 7 - Swelling Comments: Updated 12/22/[address] Chaparrita Hidalgo PRAVACHOL (PRAVASTATIN SODIUM) 03/04/2010 5 - Intolerance Comments: Fatigue, loss of appetite. PROZAC (FLUOXETINE HCL) 08/07/2015 1 - Mental Status Change Comments: sleepiness Date Reviewed: 04/11/2018 Reviewed by: Jarocho ([facility]) BENTLEY Arellano - Fully Assessed Reason for Visit: Transition Of Care [4074] Cmt: [facility] D/C 05/31/18 Reason For Visit History Recorded Prescriptions as of 06/01/2018 Sig: INSULIN GLARGINE (U-100) 100 * Inject 18 Units subcutaneousl* DIPHENHYDRAMINE 25 MG TABLET Take 2 tablets by mouth every* SUMATRIPTAN 50 MG TABLET take 1 tablet at onset of bettie* LISINOPRIL 30 MG TABLET Take 1 tablet by mouth once d* IBUPROFEN 600 MG TABLET Take 1 tablet by mouth every * MOMETASONE 0.1 % TOPICAL CREAM Apply 1 application to affect* BUSPIRONE 10 MG TABLET Take 1 tablet by mouth three * ATORVASTATIN 40 MG TABLET Take 1 tablet by mouth daily * INSULIN LISPRO (U-100) 100 UN* Inject 6 Units subcutaneously* PEN NEEDLE, DIABETIC 31 GAUGE* Use one needle with each insu* ERGOCALCIFEROL (VITAMIN D2) 5* Take 1 capsule by mouth once * COMPOUNDED PRESCRIPTION Grab Bar Dx: AMLODIPINE 10 MG TABLET Take 1 tablet by mouth once d* BLOOD SUGAR DIAGNOSTIC STRIPS Test blood sugar(s) 4 times d* LANCETS 28 GAUGE Test blood sugar(s) 4 times d* ACETAMINOPHEN ER 650 MG TABLE* Take 2 tablets by mouth twice* Problem List As Of Date 06/01/2018 Noted Resolved Stroke/Cerebrovascular Accident [I63.9] INVALID FOR* Lumbago-Sciatica due to Displacement of Lumbar *INVALID FOR* DDD (Degenerative Disc Disease), Lumbar [M51.36]INVALID FOR* Cannabis Abuse [F12.10] INVALID FOR* Lichen planus [L43.9] INVALID FOR* More... Lumbar facet arthropathy [M47.816] INVALID FOR* Essential hypertension, benign [I10] INVALID FOR* More... Nasal obstruction [J34.89] INVALID FOR* Myofascial pain [M79.18] INVALID FOR* Diabetic nephropathy with proteinuria (HCC) [E1*INVALID FOR* Hyperlipidemia with target LDL less than 100 [E*INVALID FOR* More... History of cerebrovascular accident (CVA) with *INVALID FOR* More... 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 Diabetic ulcer of toe of left foot associated w*INVALID FOR* More... Lumbar radiculopathy [M54.16] INVALID FOR* More... Gangrene (HCC) [I96] INVALID FOR*12/25/2017 More... Wound abscess [QDA3663] INVALID FOR* More... Depression [F32.9] INVALID FOR* More... Diabetes (HCC) [E11.9] INVALID FOR* More... Tobacco abuse [Z72.0] INVALID FOR* More... Abscess [L02.91] INVALID FOR*12/25/2017 More... Foot abscess, left [L02.612] INVALID FOR* Penicillin allergy [Z88.0] INVALID FOR* C. difficile diarrhea [A04.72] INVALID FOR*01/07/2018 More... Hypokalemia [E87.6] INVALID FOR*12/31/2017 More... Malnutrition of moderate degree (HCC) [E44.0] INVALID FOR*01/08/2018 More... Normocytic anemia [D64.9] INVALID FOR* More... Electrolyte imbalance [E87.8] INVALID FOR*01/08/2018 More... CKD (chronic kidney disease), stage III (HCC) [*INVALID FOR* Encounter Status:Closed by IVY JIMENEZ III, MD on 06/04/18 DISCHARGE SUMMARY Observed: 05/31/2018 Status: COMPLETED Source: [place] 1:45 PM HOSPITALS REPOSITORY Send Summary: Discharge Summary Providers: Provider RoleProvider Name Frantz Childs David Alexander Note Recipients: STANLEY KEITH Discharge: Summary: Admission Date: .24-May-2018 11:16:00 Discharge Date: 31-May-2018 Attending Physician at Discharge: Jacob Jauregui Admission Reason: Acute on chronic systolic and diastolic CHF Final Discharge Diagnoses: Acute on chronic combined systolic and diastolic heart failure, Vertigo, Procedures: None Condition at Discharge: Satisfactory Disposition at Discharge: Home Health Care - New Vital Signs: T PRBPSpO2 [id number]/21317% Date/Time05/31 12:131/3 12:131/3 12:131/3 12:131/3 12:13 Range(36.4C - 36.7C ) (88 - 102 ) (17 - 20 ) (96 - 117 )/ (64 - 78 ) (96% - 100% ) Hospital Course: 62 y/o female with a h/o HTN, HLD, type II DM, and stroke (no residual deficits), CAD s/p PCI with JAZIEL LCx and LAD proximal to middle third on 05/18/18 presents as a transfer from [place] for acute decompensated heart failure. She was recently hospitalized 05/10-05/20/18 for CABG evaluation. TTE showed EF 37% and diastolic dysfunction. CXR showed venous congestion, patient was diuresed. LHC showed severe three-vessel disease with 90% stenosis of LAD, 80-90% stenosis of LCx, completely occluded RCA. 05/15 cardiac MRI viability showed LVEF 37%, delayed subendocardial enhancement of base and mid inferior wall involving up to 50% of myocardial thickness in keeping with sequela of infarction in RCA territory with component of viable myocardium. NO other areas of delayed enhancement is identified in LAD or LCx territory. 05/18 had JAZIEL placed in LCx and LAD. Complicated by hypotension due to acute blood loss anemia, requiring 3 units pRBC and received protamine for heparin reversal. Hemostasis achieved in R groin site. Plan for patient to return in 1 month for retrograde RCA HYDRANT SETTER with Dr. Keith. Discharge weigh 64.3kg. Patient states she's been taking her medications faithfully at home. No extra salt in her diet and does not think she's drinking more fluids. She was doing well except for some dyspnea with exertion, for which her had her rest on the couch since discharge. Denies orthopnea or PND at home, using 2 pillows at night which is her norm. The morning of admission she woke up while lying down flat and could not catch her breath, also had some chest pressure. Her son, whom she lives with, drove her to [place] ED. [place] ED: afebrile 98F, HR 91, RR 32, BP 149/77> 180/93, 91% placed on BiPap wheezing upper airways, diminished lower castorena bilaterally. CBC: 10.9> 12.7/39<363 RFP: 142/4.6/111/22/11/1.35 lactate 1.3 troponin 1.6 BNP 3512 EKG: sinus tachycardia, HR 102, twi II, III, aVF, no ST changes. unchanged from prior CXR: progressing R basilar alveolar disease, no demonstrated pleural abnormality given aspirin 324mg, duoneb, lasix 40mg IV, nitro paste Placed on BiPap in ED 05/03, 40% FiO2 On transport patient, EMS said she did not tolerate BiPap but satted > 97% on 3L NC [facility] C[facility]: Patient was satting >95% on 3L NC. with diminished sounds in bilateral bases. CXR shows pulmonary edema and JVP up to angle of mandible so another IV Lasix 40mg given on admission. Patient put out 3.3 L of urine. Floor Course: She was successfully diuresed with IV lasix boluses. Neurology consulted for greater than 1 year history of vertigo, who recommended an ophthalmology consult. Opthal recommended outpatient follow-up. Patient states symptoms did not improve with compression stockings or with meclizine. She was transitioned from IV lasix 40mg BID to lasix 40mg PO daily on 05/30. Repeat CXR showed resolution of pulm edema & effusions. To note, she was given a trial of albuterol which she stated helped her breathing. She has a history of tobacco use but quit 1 month ago. Recommend OP PFTs and follow-up with her PCP. PT recommended home with PT with a focus on vestibular rehab. Patient's son also made her an appointment for ENT evaluation. Her staged PCI of RCA HYDRANT SETTER if scheduled for 06/[address] Keith. Otherwise, she is following up with her local marketing account executive in [place]. D/c wt: 60kg After all labs and VS were reviewed the decision was made that the patient was medically stable for discharge. The patient was discharged in satisfactory condition. More than 30 minutes were spent in coordinating patient discharge. Discharge Information: and Continuing Care: Discharge Instructions: Activity: activity as tolerated. Balance activity with rest, gradually increase your activity as tolerated Exercise as prescribed by your physician Nutrition/Diet: low sodium Fluid Restriction: 2L daily Additional Orders: Weight: Daily and record. Take these numbers with you to your Cardiology appointment. If your weight increases by more than three pounds from baseline weight, call your Cardiology office. Infectious Disease: PPD Status: not given MRSA: no VRE: no C. Diff: no Other Resistant Organism: no Isolation Type: none Home Care Certification: Home Care Agency: Other (with phone number) [facility] Skilled Disciplines Ordered: RN/ELECTRIC STOVE INSTALLER, PT, OT Home Care Services: Home Care Skilled Service: CHF carepath, medication, Rehab (PT/OT/SP eval and treat), weight check Follow Up Appointments: Follow-Up Appointment 01: Physician/Dept/Service: Dr. Gómez Luna, Ophthalmology Scheduled Date/Time: 19-Jun-2018 09:30 Location: [address], [address] [place] [address] Follow-Up Appointment 02: Physician/Dept/Service: Follow-up with your PCP, marketing account executive and ENT in [place]. Follow-Up Appointment 03: Physician/Dept/Service: Stenting of the RCA Scheduled Date/Time: 19-Jun-2018 Location: [facility] for pathology laboratory director scheduling Discharge Medications: Home Medication insulin glargine 100 units/mL subcutaneous solution - 18 unit(s) subcutaneous every 24 hours busPIRone 5 mg oral tablet - 1 tab(s) orally every 8 hours aspirin 81 mg oral tablet, chewable - 1 tab(s) orally once a day atorvastatin 40 mg oral tablet - 1 tab(s) orally once a day omega-3 polyunsaturated fatty acids 1000 mg oral capsule - 2 cap(s) orally 2 times a day clopidogrel 75 mg oral tablet - 1 tab(s) orally once a day carvedilol 3.125 mg oral tablet - 1 tab(s) orally 2 times a day furosemide 40 mg oral tablet - 1 tab(s) orally once a day albuterol 90 mcg/inh inhalation powder - 2 puff(s) inhaled every 6 hours for wheezing or shortness of breath PRN Medication Issues to Discuss at Follow-up / Goals for Continuing Care: * Follow-up for staged PCI of the RCA HYDRANT SETTER on 06/19 -- schedulers will call her day prior for exact time. * Follow-up with opthal & ENT for chronic vertigo. * Follow-up on volume status with lasix 40mg daily. She is euvolemic on discharge. * Follow-up on CHF med therapy. Patient states dizziness is worse with lisinopril and therefore she is not taking it. She was restarted on home Coreg on discharge. * Follow-up on pulm status. She states albuterol inhaler helped her SOB. Consider OP PFTs. Lab Results - Pending: None Radiology Results - Pending: None Signature/Cosignature/Attestation: Provider/Team Contact Info-Pager [phone] Electronic Signatures: Petty Phelps (PAC) (Signed 31-May-2018 13:51) Authored: Send Summary, Summary Content, Ongoing Care, Signature/Cosignature/Attestation Jacob Jauregui) (Signed 04-Jun-2018 11:21) Authored: Ongoing Care Co-Signer: Send Summary, Summary Content, Ongoing Care, Signature/Cosignature/Attestation Last Updated: 04-Jun-2018 11:21 by Jacob Jauergui) PROGRESS Observed: 05/31/2018 Status: COMPLETED Source: [place] 1:31 PM [facility] REPOSITORY HNO ID: [id number] Author: Ivy Jimenez III Service: (none) Author Type: Physician Type: Progress Notes Filed: 05/31/2018 1:31 PM Note Text: Noted Ivy Jimenez III, MD, [facility] GLUCOSE-POCT Collected: 05/31/2018 Status: F Source: [place] 12:37 PM HOSPITALS REPOSITORY TYPE CODE TESTS RESULT OUT OF RANGE REFERENCE UNITS LAB GLUP(LOINC) 74 - 99 mg/dL High 202 GLUCOSE-POCT Performed By: #### GLUPO #### [facility] [id number] [place] [address] PROGRESS Observed: 05/31/2018 Status: COMPLETED Source: [place] 12:17 PM [facility] REPOSITORY HNO ID: [id number] Author: Napoleon Pizarro (Rn) Service: (none) Author Type: Registered Nurse Type: Progress Notes Filed: 05/31/2018 1:31 PM Note Text: PRIMARY CARE COORDINATION FOLLOW-UP NOTE Provider Action/FYI 1. Call to Pt spk with spouse who noted Pt was seen at [facility] ED and transferred to [facility] Ray noted Pt had 4 stents and needs one more, he reports Davina had excess fluid and was given Lasix, anticipate Discharge today 05/31/18. 2. Call and faxed request to [facility] Medical records to request Medication list, D/C Summary, Diagnostics, Labs and CM notes, will forward to Pcp for review, once received. Patient identified by name and date of . YES Spoke to spouse Summary: Anticipate Discharge from [facility] Wall Taper Helper plan for next outreach: Follow for Care Needs Signature Juarez Bender RN May 31, 2018 GLUCOSE-POCT Collected: 05/31/2018 Status: F Source: [place] 8:28 AM HOSPITALS REPOSITORY TYPE CODE TESTS RESULT OUT OF RANGE REFERENCE UNITS LAB GLUP(LOINC) 74 - 99 mg/dL High 136 GLUCOSE-POCT Performed By: #### GLUPO #### [facility] [address] [place] [address] CBC Collected: 05/31/2018 Status: CANCELLED Source: [place] 12:30 AM HOSPITALS REPOSITORY Order Comment: TEST CBC WAS CANCELLED, 05/31/2018 18:30 ?Cancel Reason: Patient Discharged. TYPE CODE TESTS RESULT OUT OF REFERENCE UNITS RANGE LAB WBCR(LOINC ) WBC Canceled LAB NRBC(LOINC ) NUCLEATED RBC Canceled LAB RBCCT(LOIN C) RBC Canceled LAB HGB(LOINC) HGB Canceled LAB HCT(LOINC) HCT Canceled LAB MCV(LOINC) MCV Canceled LAB MCHC2(LOIN C) MCHC Canceled LAB PLTCT(LOIN C) PLT Canceled LAB RDWCV(LOIN C) RDW-CV Canceled Performed By: #### CBC #### [facility] [address] [place] [address] RENAL FUNCTION PANEL Collected: 05/31/2018 Status: CANCELLED Source: [place] 12:30 AM HOSPITALS REPOSITORY Order Comment: TEST RENAL FUNCTION PANEL WAS CANCELLED, 05/31/2018 18:30 ?Cancel Reason: Patient Discharged. TYPE CODE TESTS RESULT OUT OF REFERENCE UNITS RANGE LAB GLU(LOINC) GLUCOSE Canceled LAB SOD(LOINC) SODIUM Canceled LAB K(LOINC) POTASSIUM Canceled LAB CHLOR(LOIN C) CHLORIDE Canceled LAB BIC(LOINC) BICARBONATE Canceled LAB ANGAP(LOIN C) ANION GAP Canceled LAB UREA(LOINC ) UREA NITROGEN Canceled LAB CREA(LOINC ) CREATININE Canceled LAB GFRFN(LOIN C) GFR-NON AM. Canceled LAB GFRAA(LOIN C) GFR- AM. Canceled Result Comment: CALCULATIONS OF ESTIMATED GFR ARE PERFORMED USING THE MDRD STUDY EQUATION FOR THE IDMS-TRACEABLE CREATININE METHODS. CLIN CHEM 2007;53:766-72 LAB CA(LOINC) CALCIUM Canceled LAB PHOS(LOINC) PHOSPHORUS Canceled Result Comment: The performance characteristics of phosphorus testing in heparinized plasma have been validated by the individual laboratory site where testing is performed. Testing on heparinized plasma is not approved by the FDA; however, such approval is not necessary. LAB ALB(LOINC) Canceled ALBUMIN Performed By: #### RENAL #### [facility] [address] [place] [address] LORI Observed: 05/31/2018 Status: COMPLETED Source: [place] 12:00 AM [facility] REPOSITORY Patient Outreach (FAMPWS) DAVINA GREEN ([id number]) 1955 F Date Time Provider Department 05/31/18 NAPOLEON PIZARRO (RN) FAMPWS During your visit today, we recorded the following information about you: Juarez Bender RN 05/31/2018 1:31 PM Signed PRIMARY CARE COORDINATION FOLLOW-UP NOTE Provider Action/FYI 1. Call to Pt spk with spouse who noted Pt was seen at [facility] ED and transferred to [facility] Ray noted Pt had 4 stents and needs one more, he reports Davina had excess fluid and was given Lasix, anticipate Discharge today 05/31/18. 2. Call and faxed request to [facility] Medical records to request Medication list, D/C Summary, Diagnostics, Labs and CM notes, will forward to Pcp for review, once received. Patient identified by name and date of . YES Spoke to spouse Summary: Anticipate Discharge from [facility] Wall Taper Helper plan for next outreach: Follow for Care Needs Signature Juarez Bender RN May 31, 2018 Ivy Jimenez III MD 05/31/2018 1:31 PM Signed Noted Ivy Jimenez III, , FAAFP Allergies As of Date: 05/31/2018 Noted Allergy Reaction PENICILLINS 01/28/2010 4 - Hives 7 - Swelling Comments: Updated 12/22/[address] Chaparrita Hidalgo PRAVACHOL (PRAVASTATIN SODIUM) 03/04/2010 5 - Intolerance Comments: Fatigue, loss of appetite. PROZAC (FLUOXETINE HCL) 08/07/2015 1 - Mental Status Change Comments: sleepiness Date Reviewed: 04/11/2018 Reviewed by: Jarocho ([facility]) BENTLEY Arellano - Fully Assessed Reason for Visit: [facility] Follow Up [3184] Cmt: [facility] 05/31/18 Reason For Visit History Recorded Prescriptions as of 05/31/2018 Sig: DIPHENHYDRAMINE 25 MG TABLET Take 2 tablets by mouth every* SUMATRIPTAN 50 MG TABLET take 1 tablet at onset of bettie* LISINOPRIL 30 MG TABLET Take 1 tablet by mouth once d* IBUPROFEN 600 MG TABLET Take 1 tablet by mouth every * MOMETASONE 0.1 % TOPICAL CREAM Apply 1 application to affect* BUSPIRONE 10 MG TABLET Take 1 tablet by mouth three * ATORVASTATIN 40 MG TABLET Take 1 tablet by mouth daily * INSULIN GLARGINE (U-100) 100 * Inject 18 Units subcutaneousl* INSULIN LISPRO (U-100) 100 UN* Inject 6 Units subcutaneously* PEN NEEDLE, DIABETIC 31 GAUGE* Use one needle with each insu* ERGOCALCIFEROL (VITAMIN D2) 5* Take 1 capsule by mouth once * COMPOUNDED PRESCRIPTION Grab Bar Dx: AMLODIPINE 10 MG TABLET Take 1 tablet by mouth once d* BLOOD SUGAR DIAGNOSTIC STRIPS Test blood sugar(s) 4 times d* LANCETS 28 GAUGE Test blood sugar(s) 4 times d* ACETAMINOPHEN ER 650 MG TABLE* Take 2 tablets by mouth twice* Problem List As Of Date 05/31/2018 Noted Resolved Stroke/Cerebrovascular Accident [I63.9] INVALID FOR* Lumbago-Sciatica due to Displacement of Lumbar *INVALID FOR* DDD (Degenerative Disc Disease), Lumbar [M51.36]INVALID FOR* Cannabis Abuse [F12.10] INVALID FOR* Lichen planus [L43.9] INVALID FOR* More... Lumbar facet arthropathy [M47.816] INVALID FOR* Essential hypertension, benign [I10] INVALID FOR* More... Nasal obstruction [J34.89] INVALID FOR* Myofascial pain [M79.18] INVALID FOR* Diabetic nephropathy with proteinuria (HCC) [E1*INVALID FOR* Hyperlipidemia with target LDL less than 100 [E*INVALID FOR* More... History of cerebrovascular accident (CVA) with *INVALID FOR* More... 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 Diabetic ulcer of toe of left foot associated w*INVALID FOR* More... Lumbar radiculopathy [M54.16] INVALID FOR* More... Gangrene (HCC) [I96] INVALID FOR*12/25/2017 More... Wound abscess [QJX6425] INVALID FOR* More... Depression [F32.9] INVALID FOR* More... Diabetes (HCC) [E11.9] INVALID FOR* More... Tobacco abuse [Z72.0] INVALID FOR* More... Abscess [L02.91] INVALID FOR*12/25/2017 More... Foot abscess, left [L02.612] INVALID FOR* Penicillin allergy [Z88.0] INVALID FOR* C. difficile diarrhea [A04.72] INVALID FOR*01/07/2018 More... Hypokalemia [E87.6] INVALID FOR*12/31/2017 More... Malnutrition of moderate degree (HCC) [E44.0] INVALID FOR*01/08/2018 More... Normocytic anemia [D64.9] INVALID FOR* More... Electrolyte imbalance [E87.8] INVALID FOR*01/08/2018 More... CKD (chronic kidney disease), stage III (HCC) [*INVALID FOR* Encounter Status:Closed by IVY JIMENEZ III, MD on 05/31/18 GLUCOSE-POCT Collected: 05/30/2018 Status: F Source: [place] 10:01 PM HOSPITALS REPOSITORY TYPE CODE TESTS RESULT OUT OF RANGE REFERENCE UNITS LAB GLUP(LOINC) 74 - 99 mg/dL High 182 GLUCOSE-POCT Performed By: #### GLUPO #### [facility] [address] [place] [address] CBC Collected: 05/30/2018 Status: F Source: [place] 6:59 [facility] REPOSITORY TYPE CODE TESTS RESULT OUT OF REFERENCE UNITS RANGE LAB WBCR(LOINC 4.4 - 11.3 x10E9/L ) WBC 8.4 LAB NRBC(LOINC 0.0-0.0 /100 WBC ) NUCLEATED RBC 0.0 LAB RBCCT(LOIN 4.00 - 5.20 x10E12/L C) RBC 4.11 LAB HGB(LOINC) 12.0 - 16.0 g/dL Low HGB 11.9 LAB HCT(LOINC) 36.0 - 46.0 % HCT 36.8 LAB MCV(LOINC) 80 - 100 fL MCV 90 LAB MCHC2(LOIN 32.0 - 36.0 g/dL C) MCHC 32.3 LAB PLTCT(LOIN 150 - 450 x10E9/L C) PLT 354 LAB RDWCV(LOIN 11.5 - 14.5 % C) RDW-CV 13.8 Performed By: #### CBC #### [facility] [address] [place] [address] RENAL FUNCTION PANEL Collected: 05/30/2018 Status: F Source: [place] [id number] [place] [address] REPOSITORY TYPE CODE TESTS RESULT OUT OF RANGE REFERENCE UNITS LAB GLU(LOINC) 74 - 99 mg/dL High GLUCOSE 159 LAB SOD(LOINC) 136 - 145 mmol/L Low SODIUM 134 LAB K(LOINC) 3.5 - 5.3 mmol/L POTASSIUM 3.6 LAB CHLOR(LOIN 98 - 107 mmol/L C) Low CHLORIDE 95 LAB BIC(LOINC) 21 - 32 mmol/L BICARBONATE 27 LAB ANGAP(LOIN 10 - 20 mmol/L C) ANION GAP 16 LAB UREA(LOINC 6 - 23 mg/dL ) High UREA NITROGEN 28 LAB CREA(LOINC 0.50 - 1.05 mg/dL ) High CREATININE 1.16 LAB GFRFN(LOIN >60 mL/min/1.7 C) 3m2 GFR-NON Abnormal AM. 47 LAB GFRAA(LOIN >60 mL/min/1.7 C) 3m2 GFR- Abnormal AM. 57 Result Comment: CALCULATIONS OF ESTIMATED GFR ARE PERFORMED USING THE MDRD STUDY EQUATION FOR THE IDMS-TRACEABLE CREATININE METHODS. CLIN CHEM 2007;53:766-72 LAB CA(LOINC) 8.6 - 10.6 mg/dL CALCIUM 9.3 LAB PHOS(LOINC) 2.5 - 4.9 mg/dL PHOSPHORUS 4.3 Result Comment: The performance characteristics of phosphorus testing in heparinized plasma have been validated by the individual laboratory site where testing is performed. Testing on heparinized plasma is not approved by the FDA; however, such approval is not necessary. LAB ALB(LOINC) 3.4 - 5.0 g/dL ALBUMIN 3.9 Performed By: #### RENAL #### [facility] [address] [place] [address] GLUCOSE-POCT Collected: 05/30/2018 Status: F Source: [facility] 5:24 PM [facility]ITALS REPOSITORY TYPE CODE TESTS RESULT OUT OF RANGE REFERENCE UNITS LAB GLUP(LOINC) 74 - 99 mg/dL High 173 GLUCOSE-POCT Performed By: #### GLUPO #### [facility] [address] [place] [id number] PROGRESS Observed: 05/30/2018 Status: COMPLETED Source: [place] 5:[address] [facility] [place] REPOSITORY HNO ID: [id number] Author: Napoleon Pizarro (Rn) Service: (none) Author Type: Registered Nurse Type: Progress Notes Filed: 05/30/2018 5:14 PM Note Text: PRIMARY CARE COORDINATION FOLLOW-UP NOTE Provider Action/FYI Call to Pt, unable to leave a message, vm is not set up. F/u on current discharge status Patient identified by name and date of . YES Wall Taper Helper plan for next outreach: Follow for Care needs Signature Juarez Bender RN May 30, 2018 DAILY PROGRESS Observed: 05/30/2018 Status: COMPLETED Source: [facility] NOTE-CARDIOLOGY 1:54 PM HOSPITALS REPOSITORY Service: Cardiology Subjective Data: DAVINA GREEN is a 62 year old Female who is Hospital Day # 7. Additional Information: States SOB better with albuterol treatments. She admits she is scared of discharge because of recent re-admission. She states she is unsure if meclizine helped with dizziness as she didn't get it until 8pm last night. - PT recs home with PT with emphasis on vestibular rehab - Transition to PO lasix 40mg daily - update Mandy today - plan for d/c home tomorrow Objective Data: Objective Information: ---- Intake and Output ----- Mn/Dy/Year TimeIntakeOutmesilla valley hospitalNet May 30, 2018 6:00 [id number] May 29, 2018 10:00 [id number] May 29, 2018 2:00 [id number] The Intake and Output Totals for the last 24 hours are: IntakeOutputNet [id number] Weights 05/30 4:24: Weight in kg (Weight (kg)) 60.6 05/30 4:24: Weight in lbs ((lbs)) 133.6 T PRBPSpO2 Value36.19411591/7499% Date/Time05/30 11: 11: 11: 11: 11:20 Range(36.2C - 36.7C ) (83 - 95 ) (17 - 20 ) (115 - 124 )/ (74 - 78 ) (95% - 99% ) Physical Exam: Constitutional: laying in bed, frail appearing, NAD Head/Neck: JVD at clavicle at 90 degrees Respiratory/Thorax: decreased in the bases, no wheezing Cardiovascular: RRR normal S1S2, no m/r/g Extremities: no LE edema Neurological: A/Ox3, moving all extremities Skin: warm and dry Medication: Medications: Continuous Medications No continuous medications are active Scheduled Medications 1. Albuterol 2.5 mg/ 3 mL Nebulizer Soln: 3 mL Inhalation Every 6 Hours 2. Aspirin Chewable: 81 mg Oral Daily 3. Atorvastatin: 40 mg Oral Daily 4. Clopidogrel: 75 mg Oral Daily 5. Docusate 50 mg - Senna 8.6 m tablet(s) Oral 2 Times a Day 6. Enoxaparin SubCutaneous: 40 mg SubCutaneous Every 24 Hours 7. Furosemide: 40 mg Oral Daily 8. Insulin Glargine (Lantus) Injectable: 10 unit(s) SubCutaneous Every 24 Hours 9. Insulin Lispro Mild Corrective Scale: unit(s) SubCutaneous 3 Times a Day Before Meals 10. Sodium Chloride 0.65% Nasal [place]: 2 spray(s) Each Nostril 2 Times a Day PRN Medications 1. Bisacodyl Enteric Coated: 10 mg Oral Daily 2. Dextrose 50% in Water Injectable: 25 gram(s) IntraVenous Push Every 15 Minutes 3. Glucagon Injectable: 1 mg IntraMuscular Every 15 Minutes 4. Meclizine: 12.5 mg Oral 3 Times a Day 5. traMADol: 25 mg Oral Every 6 Hours 6. Triamcinolone 0.1% Topical: 1 application(s) Topical 2 Times a Day Currently Suspended Medications 1. Metoprolol Succinate Extended Release: 25 mg Oral Daily Recent Lab Results: Results: I have reviewed these laboratory results: Glucose_POCT Trending View [id number] 13:09:00 30-May-2018 07:19:00 29-May-2018 21:27:00 29-May-2018 17:22:00 29-May-2018 13:39:00 29-May-2018 08:18:00 Glucose-[id number] H 136 H 141 H 179 H 206 H 114 H Complete Blood Count 29-May-2018 19:30:00 ResultValue White Blood Cell Count 7.3 Nucleated Erythrocyte Count 0.0 Red Blood Cell Count 4.04 HGB 11.5 L HCT 36.4 MCV 90 MCHC 31.6 L PLT 349 RDW-CV 13.9 Renal Function Panel 29-May-2018 19:30:00 ResultValue Glucose, Serum 223 H NA 135 L K 3.8 CL 93 L Bicarbonate, Serum 27 Anion Gap, Serum 19 BUN 27 H CREAT 1.23 H GFR-Non 44 A GFR- 53 A Calcium, Serum 8.8 Phosphorus, Serum 4.4 ALB 3.6 Brain Natriuretic Peptide 29-May-2018 19:30:00 ResultValue Brain Natriuretic Peptide 1466 H Assessment and Plan: Assessment: Ms. Green is a 62 y/o WF with HTN, HLD, Type 2 DM - on insulin, PVD with prior RLE arterial procedure, and CVA 8 years ago (no residual deficits) s/p Rt , CAD with multivessel disease s/p PCI to LAD and LCx (05/18/18), presented as transfer from [place] ED for acute shortness of breath concerning for acute decompensated heart failure, requiring BiPap briefly in ED. Improved with diuresis. Complains of persistent lightheaded/dizziness. Acute on chronic systolic and diastolic HF - TTE 05/14: LVEF 35%, DD, Mild LVH, Mild to mod MR, Mild to mod TR - BNP 3512 on admit; 1802 on 05/27 --> 1466 on 05/29 - diuresed 3L at OSH - CXR on admission: Interval worsening of bibasilar lung aeration, which may be secondary to increasing edema and/or layering pleural effusions. Bibasilar atelectasis also increased from prior. --> recheck CXR 05/29: interval resolution of edema/effusions - Last d/c weight 64.3kg - Admit weight 62.8kg - today's wt 60.6kg [60.6, 60.5] - transition to PO lasix 40mg daily - cont to hold Toprol XL during diuresis (switched from coreg for hypotension) -> consider restarting tomorrow - cont to hold lisinopril (says she wasn't taking at home because always made her dizzy) - Was not on Home diuretic Hx of tobacco use - quit smoking 1 month ago - SOB improved with trial of albuterol - d/c with PRN albuterol - rec f/u with PCP & PFTs Vertigo - For past 1 year - feels like my world is spinning - constantly when she has eyes open, worse when up moving around - worse if she takes Lisinopril - only relief when lying in bed with eyes closed - has never sought evaluation - 05/26 Neurology consult --> -Recommend an eye examination for visual acuity and EOMs, and prescription of appropriate glasses, possibly prism glasses, to help correct for her visual mis-alignment. Aggressive treatment of underlying heart failure. Trial of ABDIRIZAK hose for occult orthostatic hypotension - Ophthalmology c/s --> f/u with optometry/opthal as OP - Trial of meclizine today Epistaxis, resolved - mild - ocean spray CAD - 05/18 multi vessel disease s/p 2 overlapping JAZIEL in LCx & 2 overlapping JAIZEL in LAD - LHC at the OSH: 90% LAD, 80-90% Circ, 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 No other areas of delayed enhancement is identified in the LAD or LCx territory. - ASA/Plavix - troponin: 1.6 -> 1.8 -> 1.62 PAD - s/p Left CEA in setting of CVA - vascular surgery consulted pre-op - carotid duplex: R: < 50% stenosis, L >50% stenosis - ABIs: R ratio 0.66, 0.70, L ratio 0.59 - brachial pressure 124mmHg on right and 103mmHg on left - CTA head and neck: Severe stenosis at the origin of the left internal carotid artery. Moderate narrowing at the proximal right common carotid artery - Vasc f/u in one month with Dr. Jimenez at [place] Hyperlipidemia - cont statin Type II DM - Home dose insuline glargine 18units - 10 units Glargine while inpatient - SSI, accuchecks, hypoglycemia protocol - 05/11 Hgb A1C 6.6% Dispo Full code Plans to follow-up with cardiology in [place] F/U with PCP re: possible COPD & vertigo Home with PT with focus on vestibular rehab and habituation activities; d/c with front wheeled walker Called Mandy () at [phone] with no answer Pharmacy - [facility] in [place] Seen and discussed with Dr. Jauregui Signature/Cosignature/Attestation: Provider/Team Contact Info-Pager [phone] Electronic Signatures: Petty Phelps) (Signed 30-May-2018 14:27) Authored: Service, Subjective Data, Objective Data, Assessment and Plan, Signature/Cosignature/Attestation Jacob Jauregui) (Signed 30-May-2018 17:27) Co-Signer: Assessment and Plan, Signature/Cosignature/Attestation Last Updated: 30-May-2018 17:27 by Jacob Jauregui) GLUCOSE-POCT Collected: 05/30/2018 Status: F Source: [facility] 1:09 PM [facility]OSPITALS REPOSITORY TYPE CODE TESTS RESULT OUT OF RANGE REFERENCE UNITS LAB GLUP(LOINC) 74 - 99 mg/dL High 182 GLUCOSE-POCT Performed By: #### GLUPO #### [facility] [address] [place] [address] CLINICAL EVENT Observed: 05/30/2018 Status: UNK Source: [facility] NOTE-OPHTHALMOLOGY UPDATE 10:33 AM HOSPITALS REPOSITORY Event: Topic: ophthalmology update Details: Ophthalmology will sign-off on patient as there are no active acute ophthalmic issues that require constant monitoring Please re-consult for any additional or acute concerns Jose J Reza Ophthalmology PGY3 [id number] (adult)/[id number] (peds) To schedule appointment for adult patients: [phone] To schedule appointments for pediatric patients: [phone] Provider / Team Contact Information: Provider/Team Contact Info-Pager Number: [phone] Electronic Signatures: Jose J Reza ( (Resident)) (Signed 30-May-2018 10:34) Authored: Event, Provider / Team Contact Information Last Updated: 30-May-2018 10:34 by Jose J Reza (Resident)) GLUCOSE-POCT Collected: 05/30/2018 Status: F Source: [place] 7:19 AM HOSPITALS REPOSITORY TYPE CODE TESTS RESULT OUT OF RANGE REFERENCE UNITS LAB GLUP(LOINC) 74 - 99 mg/dL High 136 GLUCOSE-POCT Performed By: #### GLUPO #### [facility] [address] [place] [address] CNPTOUTREACH Observed: 05/30/2018 Status: COMPLETED Source: [place] 12:00 AM [facility] REPOSITORY Patient Outreach (FAMPWS) PETERDAVINA KAHN ([id number]) 1955 F Date Time Provider Department 05/30/18 NAPOLEON PIZARRO (RN) MICHEAL During your visit today, we recorded the following information about you: Juarez Bender RN 05/30/2018 5:14 PM Signed PRIMARY CARE COORDINATION FOLLOW-UP NOTE Provider Action/FYI Call to Pt, unable to leave a message, vm is not set up. F/u on current discharge status Patient identified by name and date of . 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 Chaparrita Hidalgo PRAVACHOL (PRAVASTATIN SODIUM) 03/04/2010 5 - Intolerance Comments: Fatigue, loss of appetite. PROZAC (FLUOXETINE HCL) 08/07/2015 1 - Mental Status Change Comments: sleepiness Date Reviewed: 04/11/2018 Reviewed by: Jarocho ([facility]) BENTLEY Arellano - Fully Assessed Reason for Visit: [facility] Follow Up [2538] Prescriptions as of 05/30/2018 Sig: ACETAMINOPHEN ER 650 MG TABLE* Take 2 tablets by mouth twice* AMLODIPINE 10 MG TABLET Take 1 tablet by mouth once d* ATORVASTATIN 40 MG TABLET Take 1 tablet by mouth daily * BLOOD SUGAR DIAGNOSTIC STRIPS Test blood sugar(s) 4 times d* BUSPIRONE 10 MG TABLET Take 1 tablet by mouth three * COMPOUNDED PRESCRIPTION Grab Bar Dx: DIPHENHYDRAMINE 25 MG TABLET Take 2 tablets by mouth every* ERGOCALCIFEROL (VITAMIN D2) 5* Take 1 capsule by mouth once * IBUPROFEN 600 MG TABLET Take 1 tablet by mouth every * INSULIN GLARGINE (U-100) 100 * Inject 18 Units subcutaneousl* INSULIN LISPRO (U-100) 100 UN* Inject 6 Units subcutaneously* PEN NEEDLE, DIABETIC 31 GAUGE* Use one needle with each insu* LANCETS 28 GAUGE Test blood sugar(s) 4 times d* LISINOPRIL 30 MG TABLET Take 1 tablet by mouth once d* MOMETASONE 0.1 % TOPICAL CREAM Apply 1 application to affect* SUMATRIPTAN 50 MG TABLET take 1 tablet at onset of bettie* Problem List As Of Date 05/30/2018 Noted Resolved Stroke/Cerebrovascular Accident [I63.9] INVALID FOR* Lumbago-Sciatica due to Displacement of Lumbar *INVALID FOR* DDD (Degenerative Disc Disease), Lumbar [M51.36]INVALID FOR* Cannabis Abuse [F12.10] INVALID FOR* Lichen planus [L43.9] INVALID FOR* More... Lumbar facet arthropathy [M47.816] INVALID FOR* Essential hypertension, benign [I10] INVALID FOR* More... Nasal obstruction [J34.89] INVALID FOR* Myofascial pain [M79.18] INVALID FOR* Diabetic nephropathy with proteinuria (HCC) [E1*INVALID FOR* Hyperlipidemia with target LDL less than 100 [E*INVALID FOR* More... History of cerebrovascular accident (CVA) with *INVALID FOR* More... 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 Diabetic ulcer of toe of left foot associated w*INVALID FOR* More... Lumbar radiculopathy [M54.16] INVALID FOR* More... Gangrene (HCC) [I96] INVALID FOR*12/25/2017 More... Wound abscess [DMJ3545] INVALID FOR* More... Depression [F32.9] INVALID FOR* More... Diabetes (HCC) [E11.9] INVALID FOR* More... Tobacco abuse [Z72.0] INVALID FOR* More... Abscess [L02.91] INVALID FOR*12/25/2017 More... Foot abscess, left [L02.612] INVALID FOR* Penicillin allergy [Z88.0] INVALID FOR* C. difficile diarrhea [A04.72] INVALID FOR*01/07/2018 More... Hypokalemia [E87.6] INVALID FOR*12/31/2017 More... Malnutrition of moderate degree (HCC) [E44.0] INVALID FOR*01/08/2018 More... Normocytic anemia [D64.9] INVALID FOR* More... Electrolyte imbalance [E87.8] INVALID FOR*01/08/2018 More... CKD (chronic kidney disease), stage III (HCC) [*INVALID FOR* Encounter Status:Closed by JUAREZ BENDER on 05/30/18 GLUCOSE-POCT Collected: 05/29/2018 Status: F Source: [place] 9:27 PM HOSPITALS REPOSITORY TYPE CODE TESTS RESULT OUT OF RANGE REFERENCE UNITS LAB GLUP(LOINC) 74 - 99 mg/dL High 141 GLUCOSE-POCT Performed By: #### GLUPO #### [facility] [address] [place] [id number] CBC Collected: 05/29/2018 Status: F Source: [place] 7:30 PM [facility]OSPITALS REPOSITORY TYPE CODE TESTS RESULT OUT OF REFERENCE UNITS RANGE LAB WBCR(LOINC 4.4 - 11.3 x10E9/L ) WBC 7.3 LAB NRBC(LOINC 0.0-0.0 /100 WBC ) NUCLEATED RBC 0.0 LAB RBCCT(LOIN 4.00 - 5.20 x10E12/L C) RBC 4.04 LAB HGB(LOINC) 12.0 - 16.0 g/dL Low HGB 11.5 LAB HCT(LOINC) 36.0 - 46.0 % HCT 36.4 LAB MCV(LOINC) 80 - 100 fL MCV 90 LAB MCHC2(LOIN 32.0 - 36.0 g/dL C) Low MCHC 31.6 LAB PLTCT(LOIN 150 - 450 x10E9/L C) PLT 349 LAB RDWCV(LOIN 11.5 - 14.5 % C) RDW-CV 13.9 Performed By: #### CBC #### [facility] [address] [place] [address] RENAL FUNCTION PANEL Collected: 05/29/2018 Status: F Source: [place] 7:30 PM [facility] REPOSITORY TYPE CODE TESTS RESULT OUT OF RANGE REFERENCE UNITS LAB GLU(LOINC) 74 - 99 mg/dL High GLUCOSE 223 LAB SOD(LOINC) 136 - 145 mmol/L Low SODIUM 135 LAB K(LOINC) 3.5 - 5.3 mmol/L POTASSIUM 3.8 LAB CHLOR(LOIN 98 - 107 mmol/L C) Low CHLORIDE 93 LAB BIC(LOINC) 21 - 32 mmol/L BICARBONATE 27 LAB ANGAP(LOIN 10 - 20 mmol/L C) ANION GAP 19 LAB UREA(LOINC 6 - 23 mg/dL ) High UREA NITROGEN 27 LAB CREA(LOINC 0.50 - 1.05 mg/dL ) High CREATININE 1.23 LAB GFRFN(LOIN >60 mL/min/1.7 C) 3m2 GFR-NON Abnormal AM. 44 LAB GFRAA(LOIN >60 mL/min/1.7 C) 3m2 GFR- Abnormal AM. 53 Result Comment: CALCULATIONS OF ESTIMATED GFR ARE PERFORMED USING THE MDRD STUDY EQUATION FOR THE IDMS-TRACEABLE CREATININE METHODS. CLIN CHEM 2007;53:766-72 LAB CA(LOINC) 8.6 - 10.6 mg/dL CALCIUM 8.8 LAB PHOS(LOINC) 2.5 - 4.9 mg/dL PHOSPHORUS 4.4 Result Comment: The performance characteristics of phosphorus testing in heparinized plasma have been validated by the individual laboratory site where testing is performed. Testing on heparinized plasma is not approved by the FDA; however, such approval is not necessary. LAB ALB(LOINC) 3.4 - 5.0 g/dL ALBUMIN 3.6 Performed By: #### RENAL #### [facility] [address] [place] [address] BNP Collected: 05/29/2018 Status: F Source: [place] 7:30 PM [facility] REPOSITORY TYPE CODE TESTS RESULT OUT OF RANGE REFERENCE UNITS LAB BNP2(LOINC) 0 - 99 pg/mL High BNP 1466 Result Comment: . <100 pg/mL - Heart failure unlikely 100-299 pg/mL - Intermediate probability of acute heart . failure exacerbation. Correlate with clinical . context and patient history. >=300 pg/mL - Heart Failure likely. Correlate with clinical . context and patient history. BNP testing is performed using different testing methodology at [facility] than at other [facility]. Direct result comparisons should only be made within the same method. Performed By: #### BNP2 #### [facility] [address] [place] [address] GLUCOSE-POCT Collected: 05/29/2018 Status: F Source: [place] 5:22 PM [facility] REPOSITORY TYPE CODE TESTS RESULT OUT OF RANGE REFERENCE UNITS LAB GLUP(LOINC) 74 - 99 mg/dL High 179 GLUCOSE-POCT Performed By: #### GLUPO #### [facility] [address] [place] [address] TH CHEST 2 VIEW PA Observed: 05/29/2018 Status: F Source: [facility] [facility] 4:21 PM HOSPITALS REPOSITORY Patient Name: DAVINA GREEN STUDY: TH CHEST 2 VIEW PA AND LAT; 05/29/2018 4:21 pm INDICATION: Signs/Symptoms: F/U CHF. COMPARISON: Chest radiograph from 05/25/2018 ACCESSION NUMBER(S): [id number] ORDERING CLINICIAN: PETTY PHELPS FINDINGS: Cardiomediastinal silhouette is within normal limits on AP radiograph. There has been interval significant improvement in bilateral lung aeration with no ivy pulmonary edema or sizable pleural effusion on present exam. No airspace consolidation or pneumothorax. No acute osseous abnormality. IMPRESSION: 1. No radiographic evidence of acute cardiopulmonary process. Interval resolution of previously seen diffuse pulmonary edema and/or layering pleural effusions. Electronically signed by: FEDERICO GONZÁLES MD DAILY PROGRESS Observed: 05/29/2018 Status: COMPLETED Source: [facility] 4:11 PM HOSPITALS REPOSITORY Service: Cardiology Subjective Data: DAVINA GREEN is a 62 year old Female who is Hospital Day # 6. Additional Information: Denies SOB, CP and swelling. Complains of chronic dizziness/lightheadedness. - Contacted neuro - recs stockings, slow position changes, do not think meclizine will help sx - Recheck BNP/CXR - Trial of albuterol - ICS - PT/OT eval Objective Data: Objective Information: ---- Intake and Output ----- Mn/Dy/Year TimeIntakeOutputNet May 29, 2018 2:00 [id number] May 29, 2018 6:00 [id number] May 28, 2018 10:00 [id number] The Intake and Output Totals for the last 24 hours are: IntakeOutputNet [id number] Weights 05/29 12:00: Weight in kg (Weight (kg)) 60.6 05/29 12:00: Weight in lbs ((lbs)) 133.6 T PRBPSpO2 Value36.12606462/7298% Date/Time05/29 12: 12: 12: 12: 12:00 Range(36.1C - 36.9C ) (76 - 87 ) (18 - 20 ) (92 - 113 )/ (60 - 76 ) (96% - 99% ) Highest temp of 36.9 C was recorded at 05/28 19:55 Physical Exam: Constitutional: laying in bed, frail appearing, NAD Head/Neck: JVD at low- mid neck at 45 degrees Respiratory/Thorax: crackles in R base Cardiovascular: RRR normal S1S2, no m/r/g Extremities: no LE edema Neurological: A/Ox3, moving all extremities Skin: warm and dry Medication: Medications: Continuous Medications No continuous medications are active Scheduled Medications 1. Albuterol 2.5 mg/ 3 mL Nebulizer Soln: 3 mL Inhalation Every 6 Hours 2. Aspirin Chewable: 81 mg Oral Daily 3. Atorvastatin: 40 mg Oral Daily 4. Clopidogrel: 75 mg Oral Daily 5. Docusate 50 mg - Senna 8.6 m tablet(s) Oral 2 Times a Day 6. Enoxaparin SubCutaneous: 40 mg SubCutaneous Every 24 Hours 7. Furosemide Injectable: 40 mg IntraVenous Push 2 Times a Day 8. Insulin Glargine (Lantus) Injectable: 10 unit(s) SubCutaneous Every 24 Hours 9. Insulin Lispro Mild Corrective Scale: unit(s) SubCutaneous 3 Times a Day Before Meals 10. Meclizine: 12.5 mg Oral Once 11. Sodium Chloride 0.65% Nasal [place]: 2 spray(s) Each Nostril 2 Times a Day PRN Medications 1. Bisacodyl Enteric Coated: 10 mg Oral Daily 2. Dextrose 50% in Water Injectable: 25 gram(s) IntraVenous Push Every 15 Minutes 3. Glucagon Injectable: 1 mg IntraMuscular Every 15 Minutes 4. traMADol: 25 mg Oral Every 6 Hours 5. Triamcinolone 0.1% Topical: 1 application(s) Topical 2 Times a Day Currently Suspended Medications 1. Metoprolol Succinate Extended Release: 25 mg Oral Daily Recent Lab Results: Results: I have reviewed these laboratory results: Glucose_POCT Trending View [id number] 13:39:00 29-May-2018 08:18:00 28-May-2018 22:29:00 28-May-2018 17:45:00 28-May-2018 12:20:00 28-May-2018 08:35:00 Glucose-GFUN765 H 114 H 114 H 190 H 138 H 143 H Complete Blood Count 28-May-2018 19:35:00 ResultValue White Blood Cell Count 7.6 Nucleated Erythrocyte Count 0.0 Red Blood Cell Count 4.21 HGB 12.2 HCT 37.9 MCV 90 MCHC 32.2 PLT 400 RDW-CV 14.2 Renal Function Panel 28-May-2018 19:35:00 ResultValue Glucose, Serum 124 H NA 135 L K 3.9 CL 96 L Bicarbonate, Serum 30 Anion Gap, Serum 13 BUN 22 CREAT 1.14 H GFR-Non 48 A GFR- 58 A Calcium, Serum 9.5 Phosphorus, Serum 4.8 ALB 3.8 Assessment and Plan: Assessment: Ms. Green is a 62 y/o WF with HTN, HLD, Type 2 DM - on insulin, PVD with prior RLE arterial procedure, and CVA 8 years ago (no residual deficits) s/p Rt , CAD with multivessel disease s/p PCI to LAD and LCx (05/18/18), presented as transfer from [place] ED for acute shortness of breath concerning for acute decompensated heart failure, requiring BiPap briefly in ED. Improved with diuresis. Complains of persistent lightheaded/dizziness. Acute on chronic systolic and diastolic HF - TTE 05/14: LVEF 35%, DD, Mild LVH, Mild to mod MR, Mild to mod TR - BNP 3512 on admit; 1802 on 05/27 --> recheck - diuresed 3L at OSH - CXR on admission: Interval worsening of bibasilar lung aeration, which may be secondary to increasing edema and/or layering pleural effusions. Bibasilar atelectasis also increased from prior. --> recheck CXR - Last d/c weight 64.3kg - Admit weight 62.8kg - today's wt 60.6kg [60.5] - cont lasix 40mg IV BID (consider switching to PO tomorrow) - cont to hold Toprol XL during diuresis (switched from coreg for hypotension) - cont to hold lisinopril (says she wasn't taking at home because always made her dizzy) - orthostatics negative --> recheck - states some residual SOB, trial of albuterol (hx of tobacco use- quit 1 month ago) - Was not on Home diuretic (will likely need one) Vertigo - For past 1 year - feels like my world is spinning - constantly when she has eyes open, worse when up moving around - worse if she takes Lisinopril - only relief when lying in bed with eyes closed - has never sought evaluation - 05/26 Neurology consult --> -Recommend an eye examination for visual acuity and EOMs, and prescription of appropriate glasses, possibly prism glasses, to help correct for her visual mis-alignment. Aggressive treatment of underlying heart failure. Trial of ABDIRIZAK hose for occult orthostatic hypotension - Ophthalmology c/s --> f/u with optometry/opthal as OP - Trial of meclizine today Epistaxis, resolved - mild - ocean spray CAD - 05/18 multi vessel disease s/p 2 overlapping JAZIEL in LCx & 2 overlapping JAZIEL in LAD - LHC at the OSH: 90% LAD, 80-90% Circ, 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 No other areas of delayed enhancement is identified in the LAD or LCx territory. - ASA/Plavix - troponin: 1.6 -> 1.8 -> 1.62 PAD - s/p Left CEA in setting of CVA - vascular surgery consulted pre-op - carotid duplex: R: < 50% stenosis, L >50% stenosis - ABIs: R ratio 0.66, 0.70, L ratio 0.59 - brachial pressure 124mmHg on right and 103mmHg on left - CTA head and neck: Severe stenosis at the origin of the left internal carotid artery. Moderate narrowing at the proximal right common carotid artery - Vasc f/u in one month with Dr. Jimenez at [place] Hyperlipidemia - cont statin Type II DM - Home dose insuline glargine 18units - 10 units Glargine while inpatient - SSI, accuchecks, hypoglycemia protocol - 05/11 Hgb A1C 6.6% Dispo Full code Seen and discussed with Dr. Jauregui Signature/Cosignature/Attestation: Provider/Team Contact Info-Pager [id number] Electronic Signatures: Petty Phelps (PAC) (Signed 29-May-2018 16:18) Authored: Service, Subjective Data, Objective Data, Assessment and Plan, Signature/Cosignature/Attestation Jacob Jauregui) (Signed 30-May-2018 17:27) Co-Signer: Service, Subjective Data, Objective Data, Assessment and Plan, Signature/Cosignature/Attestation Last Updated: 30-May-2018 17:27 by Jacob Jauregui) GLUCOSE-POCT Collected: 05/29/2018 Status: F Source: [place] 1:39 PM [facility] REPOSITORY TYPE CODE TESTS RESULT OUT OF RANGE REFERENCE UNITS LAB GLUP(LOINC) 74 - 99 mg/dL High 206 GLUCOSE-POCT Performed By: #### GLUPO #### [facility] [address] [place] [address] GLUCOSE-POCT Collected: 05/29/2018 Status: F Source: [place] 8:18 AM [facility]POS[facility] TYPE CODE TESTS RESULT OUT OF RANGE REFERENCE UNITS LAB GLUP(LOINC) 74 - 99 mg/dL High 114 GLUCOSE-POCT Performed By: #### GLUPO #### [facility] [address] [place] [address] GLUCOSE-POCT Collected: 05/28/2018 Status: F Source: [place] 10:29 PM [facility] REPOSITORY TYPE CODE TESTS RESULT OUT OF RANGE REFERENCE UNITS LAB GLUP(LOINC) 74 - 99 mg/dL High 114 GLUCOSE-POCT Performed By: #### GLUPO #### [facility] [address] [place] [address] CBC Collected: 05/28/2018 Status: F Source: [place] 7:35 [facility] REPOSITORY TYPE CODE TESTS RESULT OUT OF REFERENCE UNITS RANGE LAB WBCR(LOINC 4.4 - 11.3 x10E9/L ) WBC 7.6 LAB NRBC(LOINC 0.0-0.0 /100 WBC ) NUCLEATED RBC 0.0 LAB RBCCT(LOIN 4.00 - 5.20 x10E12/L C) RBC 4.21 LAB HGB(LOINC) 12.0 - 16.0 g/dL HGB 12.2 LAB HCT(LOINC) 36.0 - 46.0 % HCT 37.9 LAB MCV(LOINC) 80 - 100 fL MCV 90 LAB MCHC2(LOIN 32.0 - 36.0 g/dL C) MCHC 32.2 LAB PLTCT(LOIN 150 - 450 x10E9/L C) PLT 400 LAB RDWCV(LOIN 11.5 - 14.5 % C) RDW-CV 14.2 Performed By: #### CBC #### [facility] [address] [place] [address] RENAL FUNCTION PANEL Collected: 05/28/2018 Status: F Source: [place] 7:35 [facility] REPOSITORY TYPE CODE TESTS RESULT OUT OF RANGE REFERENCE UNITS LAB GLU(LOINC) 74 - 99 mg/dL High GLUCOSE 124 LAB SOD(LOINC) 136 - 145 mmol/L Low SODIUM 135 LAB K(LOINC) 3.5 - 5.3 mmol/L POTASSIUM 3.9 LAB CHLOR(LOIN 98 - 107 mmol/L C) Low CHLORIDE 96 LAB BIC(LOINC) 21 - 32 mmol/L BICARBONATE 30 LAB ANGAP(LOIN 10 - 20 mmol/L C) ANION GAP 13 LAB UREA(LOINC 6 - 23 mg/dL ) UREA NITROGEN 22 LAB CREA(LOINC 0.50 - 1.05 mg/dL ) High CREATININE 1.14 LAB GFRFN(LOIN >60 mL/min/1.7 C) 3m2 GFR-NON Abnormal AM. 48 LAB GFRAA(LOIN >60 mL/min/1.7 C) 3m2 GFR- Abnormal AM. 58 Result Comment: CALCULATIONS OF ESTIMATED GFR ARE PERFORMED USING THE MDRD STUDY EQUATION FOR THE IDMS-TRACEABLE CREATININE METHODS. CLIN CHEM 2007;53:766-72 LAB CA(LOINC) 8.6 - 10.6 mg/dL CALCIUM 9.5 LAB PHOS(LOINC) 2.5 - 4.9 mg/dL PHOSPHORUS 4.8 Result Comment: The performance characteristics of phosphorus testing in heparinized plasma have been validated by the individual laboratory site where testing is performed. Testing on heparinized plasma is not approved by the FDA; however, such approval is not necessary. LAB ALB(LOINC) 3.4 - 5.0 g/dL ALBUMIN 3.8 Performed By: #### RENAL #### [facility] [address] [place] [address] GLUCOSE-POCT Collected: 05/28/2018 Status: F Source: [place] 5:45 PM [facility] REPOSITORY TYPE CODE TESTS RESULT OUT OF RANGE REFERENCE UNITS LAB GLUP(LOINC) 74 - 99 mg/dL High 190 GLUCOSE-POCT Performed By: #### GLUPO #### [facility] [address] [place] [address] DISCHARGE PROFILE2 Observed: 05/28/2018 Status: UNK Source: [place] 1:17 PM [facility] REPOSITORY Discharge Orders: Anticipated Discharge Date: Anticipated Discharge [id number] Problem List: Admitting Dx: Acute on chronic combined systolic and diastolic heart failure: Catalog Name: Acute on chronic combined systolic (congestive) and diastolic (congestive) heart failure Prelim Disch Dx: DM (diabetes mellitus): Catalog Name: Type 2 diabetes mellitus without complications PAD (peripheral artery disease): Catalog Name: Peripheral vascular disease, unspecified CAD (coronary artery disease): Catalog Name: Atherosclerotic heart disease of [place] coronary artery without angina pectoris Vertigo: Catalog Name: Dizziness and giddiness Acute on chronic combined systolic and diastolic heart failure: Catalog Name: Acute on chronic combined systolic (congestive) and diastolic (congestive) heart failure Hospital Providers: Provider RoleProvider Name Jacob Lua Activity: activity as tolerated. Diet: Dietlow sodium Fluid Kaxxqxvcthc8S daily Additional Orders: WeightDaily and record. Take these numbers with you to your Cardiology appointment. If your weight increases by more than three pounds from baseline weight, call your Cardiology office. Call Provider If (Homegoing Patients): Any new concerning symptoms. Heart Failure: Patient Instructions: - CALL 911 IF YOU HAVE ANY OF THE SIGNS AND SYMPTOMS OF HEART FAILURE: 1. Chest pain 2. Significant Shortness of breath 3. Fainting. - Notify your physician immediately if you have shortness of breath; weight gain of 3 lbs. or more; fatigue and loss of energy; swelling of lower extremities or abdomen; dizziness or fainting; change of appetite; and frequent coughing. - Patient received Living With Heart Failure book. - Daily weight on the same scale, same time after voiding and before eating. - Maintain daily weight log. Activity: - Balance activity with rest, gradually increase your activity as tolerated. - Exercise as prescribed by your physician. Hospital Course (Home Care/Gold Form): Hospital Course: Hospital Course: include significant abnormal lab values 62 y/o female with a h/o HTN, HLD, type II DM, and stroke (no residual deficits), CAD s/p PCI with JAZIEL LCx and LAD proximal to middle third on 05/18/18 presents as a transfer from [place] for acute decompensated heart failure. She was recently hospitalized 05/10-05/20/18 for CABG evaluation. TTE showed EF 37% and diastolic dysfunction. CXR showed venous congestion, patient was diuresed. LHC showed severe three-vessel disease with 90% stenosis of LAD, 80-90% stenosis of LCx, completely occluded RCA. 05/15 cardiac MRI viability showed LVEF 37%, delayed subendocardial enhancement of base and mid inferior wall involving up to 50% of myocardial thickness in keeping with sequela of infarction in RCA territory with component of viable myocardium. NO other areas of delayed enhancement is identified in LAD or LCx territory. 05/18 had JAZIEL placed in LCx and LAD. Complicated by hypotension due to acute blood loss anemia, requiring 3 units pRBC and received protamine for heparin reversal. Hemostasis achieved in R groin site. Plan for patient to return in 1 month for retrograde RCA HYDRANT SETTER with Dr. Keith. Discharge weigh 64.3kg. Patient states she's been taking her medications faithfully at home. No extra salt in her diet and does not think she's drinking more fluids. She was doing well except for some dyspnea with exertion, for which her had her rest on the couch since discharge. Denies orthopnea or PND at home, using 2 pillows at night which is her norm. The morning of admission she woke up while lying down flat and could not catch her breath, also had some chest pressure. Her son, whom she lives with, drove her to [facility] ED. [facility] ED: afebrile 98F, HR 91, RR 32, BP 149/77> 180/93, 91% placed on BiPap wheezing upper airways, diminished lower castorena bilaterally. CBC: 10.9> 12.7/39<363 RFP: 142/4.6/111/22/11/1.35 lactate 1.3 troponin 1.6 BNP 3512 EKG: sinus tachycardia, HR 102, twi II, III, aVF, no ST changes. unchanged from prior CXR: progressing R basilar alveolar disease, no demonstrated pleural abnormality given aspirin 324mg, duoneb, lasix 40mg IV, nitro paste Placed on BiPap in ED 05/03, 40% FiO2 On transport patient, EMS said she did not tolerate BiPap but satted > 97% on 3L NC [facility] C[facility]: Patient was satting >95% on 3L NC. with diminished sounds in bilateral bases. CXR shows pulmonary edema and JVP up to angle of mandible so another IV Lasix 40mg given on admission. Patient put out 3.3 L of urine. Floor Course: She was successfully diuresed with IV lasix boluses. Neurology consulted for greater than 1 year history of vertigo, who recommended an ophthalmology consult. Opthal recommended outpatient follow-up. Patient states symptoms did not improve with compression stockings or with meclizine. She was transitioned from IV lasix 40mg BID to lasix 40mg PO daily on 05/30. Repeat CXR showed resolution of pulm edema & effusions. To note, she was given a trial of albuterol which she stated helped her breathing. She has a history of tobacco use but quit 1 month ago. Recommend OP PFTs and follow-up with her PCP. PT recommended home with PT with a focus on vestibular rehab. Patient's son also made her an appointment for ENT evaluation. Her staged PCI of RCA HYDRANT SETTER if scheduled for 06/[address] Keith. Otherwise, she is following up with her local marketing account executive in [place]. D/c wt: 60kg After all labs and VS were reviewed the decision was made that the patient was medically stable for discharge. The patient was discharged in satisfactory condition. More than 30 minutes were spent in coordinating patient discharge. Infectious Disease: PPD Statusnot given MRSAno VREno C. Diffno Other Resistant Organismno Isolation Typenone Home Care Orders: Face to Face Certification: Home Care Services Needed: yes Home Care Agency: Other (with phone number) [facility] Skilled Disciplines Ordered: RN/ELECTRIC STOVE INSTALLER, PT, OT Face to Face Encounter Completed: yes Date of Encounter: 30-May-2018 Medical Necessity for Homecare (based on clinical findings): Short-term home care is needed to monitor for signs and symptoms of decompensation/adverse events from cardiac disease. Patient at high risk for re-hospitalization. Home care services needed to restore ability to walk without support and establish home exercise program as patient is at high risk for falls. Homebound Status: homebound Homebound Due to:: Patient with recent exacerbation of cardiac disease. Patient experiences dyspnea with minimal exertion. Ambulates limited distance of 20 feet. Patient has poor endurance and requires use of assistance/walker for safe ambulation in the home. The totality of these findings support a considerable and taxing effort to leave home due to limited mobility and pain. Face to Face Completed and Home Care Orders Reviewed: I certify that this patient is under my care. I have reviewed the information included in the face to face and certify that the home care services ordered are medically necessary for this patient. Home Care Services: Home Care Skilled ServiceCHF carepath, medication, Rehab (PT/OT/SP eval and treat), weight check CHF: First Home Care Visitwithin 72 hours Med Compliance: First Home Care Visitwithin 72 hours Rehab: First Home Care Visitwithin 72 hours Focus on emphasis on vestibular rehab and habituation activities Weight Check: First Home Care Visitwithin 72 hours Provider FINAL REVIEW of Orders: Final Review: Final Review of Medication Reconciliation and Orders Completedby PA Appointments: Follow-Up Appointment 01: Physician/Dept/ServiceDr. Gómez Luna, Ophthalmology Scheduled Date/Vbiy30-[id number]-3175 09:[address], [facility] [address] [id number] Phone [phone] CommentsPlease arrive 10-15 minutes early, bring photo ID, insurance card, discharge summary, and list of current medications and dosages. If unable to keep this appointment, please call to cancel. Follow-Up Appointment 02: Physician/Dept/ServiceFollow-up with your PCP, marketing account executive and ENT in [place]. Follow-Up Appointment 03: Physician/Dept/ServiceStenting of the RCA Scheduled Date/Nfob30-Inq-3942 [facility] Phone [phone] for pathology laboratory director scheduling Electronic Signatures: Nora Grande (COMMUNICATIONS PROGRAM MANAGER-CREDIT CONTROL ADMINISTRATOR) (Signed 28-May-2018 14:44) Authored: Discharge Orders, Heart Failure, Hospital Course (Home Care/Gold Form), Appointments, Gold Form - Entertainment Manager Summary Wen Henriquez (PT SVS REP) (Signed 31-May-2018 08:52) Authored: Appointments Petty Phelps (PAC) (Signed 31-May-2018 13:43) Authored: Discharge Orders, Hospital Course (Home Care/Gold Form), Home Care Orders, Provider FINAL REVIEW of Orders, Appointments Montserrat Saba (CLIN COOR) (Signed 30-May-2018 11:52) Authored: Home Care Orders Last Updated: 31-May-2018 13:43 by Petty Phelps (PAC) 12 LEAD ELECTROCARDIOGRAM Observed: 05/28/2018 Status: F Source: [place] 1:15 PM [facility] REPOSITORY [facility] Cardiovascular Services [address] [place] [id number] Lead EKG 05/24/18 0645 MR#: [id number] Acct: [id number] Name: DAVINA GREEN Rep #: [id number] : 1955 62 From: Joe Ba MD Attending Dr: Status: DEP ER Ordering Dr: Steve Fong MD Date: 05/24/18 Location: ED Sex: F C Admitted: Test Reason : SOB Blood Pressure : / mmHG Vent. Rate : 102 BPM Atrial Rate : 102 BPM P-R Int : 144 ms QRS Dur : 088 ms QT Int : 332 ms P-R-T Axes : 062 083 021 degrees QTc Int : 432 ms Sinus tachycardia Septal infarct , age undetermined , cannot be excluded Nonspecific T wave abnormality Abnormal ECG Confirmed by ANDREA GARCIA, JOE ([id number]), editorial director RAYMUNDO LEIJA ([id number]) on 05/28/2018 1:14:59 PM Referred By: ANA ROSA Confirmed By:JOE BA MD 05/28/18 1315 Date Joe Ba MD CC: Ivy Jimenez III, MD; Steve Fong MD Signed GLUCOSE-POCT Collected: 05/28/2018 Status: F Source: [place] 12:20 PM [facility] REPOSITORY TYPE CODE TESTS RESULT OUT OF RANGE REFERENCE UNITS LAB GLUP(LOINC) 74 - 99 mg/dL High 138 GLUCOSE-POCT Performed By: #### GLUPO #### [facility] [address] [place] [address] CONSULT-OPHTHALMOLOGY Observed: Status: COMPLETED Source: [place] 05/28/2018 10:54 AM [facility]ITALS REPOSITORY Service: Service: Ophthalmology Consult: Reason: eye exam for CN IV palsy History of Present Illness: HPI: 62 yo RH female with a h/o HTN, HLD, type II DM, and stroke in 2009 s/p Rt CEA (no residual deficits), CAD s/p PCI with JAZIEL LCx and LAD proximal to middle third on 05/18/18, who presented initially for SOB thought to be secondary to ADHF. Neurology consulted for chronic dizziness/lightheadedness. 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 Remote history of trauma 14 years ago. Per patient, has been ongoing for 2 years but worsened in the past year. Notes the room is spinning, which makes ambulation very difficulty. Symptoms improve with eye closure. Denies any diplopia, flashes/floaters, worsened looking at distance or near. States last eye exam was years ago but broke her glasses and has been using OTC readers. 14 point ROS reviewed and otherwise negative. 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 Right CEA PCI with JAZIEL LCx and LAD proximal to middle third on 05/18/18 Allergies: penicillin: Hives/Urticaria Objective: Objective Information: T PRBPSpO2 [id number]/7198% Date/Time05/28 8: 8: 8: 8: 8:00 Range(35.8C - 36.5C ) (83 - 90 ) (18 - 20 ) (94 - 110 )/ (62 - 75 ) (95% - 98% ) Assessment: near VAcc: 20/25 OD, 20/25-3 OS EOM: ~10 PD alternating X(T) at near and flick X(T) at distance with correction, no hypetropia noted, intact and full OU, no nystagmus on examination Confrontational Visual Field: Full to count fingers OU Pupils: OD: 2>1 no RAPD OS: 2>1 no RAPD IOP: OD 11, OS 9 Anterior segment Adnexa OD wnl OS wnl L/L OD good position OS good position Conj OD clear and quiet OS clear and quiet Cornea OD clear OS clear AC OD deep and quiet OS deep and quiet Iris OD flat and round OS flat and round Lens OD trace OS trace Ant Vitreous OD clear OS clear (Dilated with 1% tropicamide and 2.5% phenylephrine) DFE ON OD 0.25, pink and sharp margins OS 0.25, pink and sharp margins Vitreous OD clear OS clear Macula OD normal foveal reflex OS normal foveal reflex Vessels OD normal OS normal Periphery OD no holes, detachments, tears OS superior flame hemorrhage, no holes, detachments, tears #Alternating intermittent exotropia worse at near than distance -no signs of CN IV palsy or trochlear palsy as confirmed with no hypertropia and but 3-step test -would benefit exam in an optometry/ophthalmology clinic to measure refractive error once discharged -the amount of strabismus noted in the patient without signs of nystagmus, any cranial nerve palsy would not contribute to the lightheadedness/vertigo symptoms endorsed by patient -please use number noted below to help patient schedule appointment with optometry or pouring crane operator for next available appointment upon discharge #Flame shaped hemorrhage -likely from HTN/T2DM -benefit from strict control of baseline medical comorbidities Please contact the ophthalmology service for further questions/comments. Jose J Reza Ophthalmology PGY3 [id number] (adult)/[id number] (peds) To schedule appointment for adult patients: [phone] To schedule appointments for pediatric patients: [phone] Note final upon signature of Dr. Luna Signature/Cosignature/Attestation: Provider/Team Contact Info-Pager [id number] Attending AttestationI reviewed the resident/fellows documentation and discussed the patient with the resident/fellow. I agree with the resident/fellows medical decision making as documented in the residents note. Electronic Signatures: Gómez Luna) (Signed 30-May-2018 13:03) Authored: Signature/Cosignature/Attestation Co-Signer: Service, History of Present Illness, Allergies, Objective, Assessment/Recommendations, Signature/Cosignature/Attestation Jose J Reza (Resident)) (Signed 28-May-2018 11:06) Authored: Service, History of Present Illness, Allergies, Objective, Assessment/Recommendations, Signature/Cosignature/Attestation Last Updated: 30-May-2018 13:03 by Gómez Luna) DAILY PROGRESS Observed: 05/28/2018 Status: COMPLETED Source: [facility] 10:09 AM [facility] REPOSITORY Service: Cardiology Subjective Data: DAVINA GREEN is a 62 year old Female who is Hospital Day # 5. Additional Information: Pt feeling better, however reports breathing still isn't normal. Cont diuresis. - opthalmology consult per neuro recs Objective Data: Objective Information: T PRBPSpO2 [id number]/7198% Date/Time05/28 8: 8: 8: 8: 8:00 Range(35.8C - 36.5C ) (83 - 90 ) (18 - 20 ) (94 - 110 )/ (62 - 75 ) (95% - 98% ) ---- Intake and Output ----- Mn/Dy/Year TimeIntakeOutputNet May 28, 2018 6:00 [id number] May 27, 2018 10:00 [id number] May 27, 2018 2:00 [id number] The Intake and Output Totals for the last 24 hours are: IntakeOutputNet [id number] Physical Exam: Constitutional: laying in bed, frail appearing, NAD Head/Neck: JVD below mid neck at 45 degrees Respiratory/Thorax: reduced A/E and rales bibasilar Cardiovascular: RRR normal S1S2, no m/r/g Gastrointestinal: soft, ND, NT Extremities: no LE edema Neurological: A/Ox3, moving all extremities Psychological: Appropriate mood and behavior Skin: warm and dry Medication: Medications: Continuous Medications No continuous medications are active Scheduled Medications 1. Aspirin Chewable: 81 mg Oral Daily 2. Atorvastatin: 40 mg Oral Daily 3. Clopidogrel: 75 mg Oral Daily 4. Docusate 50 mg - Senna 8.6 m tablet(s) Oral 2 Times a Day 5. Enoxaparin SubCutaneous: 40 mg SubCutaneous Every 24 Hours 6. Furosemide Injectable: 40 mg IntraVenous Push 2 Times a Day 7. Insulin Glargine (Lantus) Injectable: 10 unit(s) SubCutaneous Every 24 Hours 8. Insulin Lispro Mild Corrective Scale: unit(s) SubCutaneous 3 Times a Day Before Meals 9. Sodium Chloride 0.65% Nasal [place]: 2 spray(s) Each Nostril 2 Times a Day PRN Medications 1. Bisacodyl Enteric Coated: 10 mg Oral Daily 2. Dextrose 50% in Water Injectable: 25 gram(s) IntraVenous Push Every 15 Minutes 3. Glucagon Injectable: 1 mg IntraMuscular Every 15 Minutes 4. traMADol: 25 mg Oral Every 6 Hours 5. Triamcinolone 0.1% Topical: 1 application(s) Topical 2 Times a Day Currently Suspended Medications 1. Metoprolol Succinate Extended Release: 25 mg Oral Daily Recent Lab Results: Results: I have reviewed these laboratory results: Glucose_POCT Trending View [id number] 08:35:00 27-May-2018 21:04:00 27-May-2018 17:33:00 27-May-2018 11:58:00 27-May-2018 07:24:00 26-May-2018 18:16:00 26-May-2018 13:42:00 Glucose-HPAU172 H 155 H 214 H 218 H 144 H 211 H 161 H Complete Blood Count Trending View [id number] 19:54:00 27-May-2018 08:00:00 White Blood Cell Count8.2 8.1 Nucleated Erythrocyte Count0.0 0.0 Red Blood Cell Count4.02 3.73 L HGB11.7 L 10.9 L HCT36.5 33.8 L MCV91 91 MCHC32.1 32.2 IIH136 345 RDW-CV14.2 14.4 Renal Function Panel Trending View [id number] 19:54:00 27-May-2018 08:00:00 Glucose, Aoggg438 H 130 H NA137 137 K3.6 4.0 CL97 L 102 Bicarbonate, Serum29 26 Anion Gap, Serum15 13 BUN22 16 CREAT1.16 H 1.15 H GFR-Non Moenfqam67 A 48 A GFR- Ftimmmih53 A 58 A Calcium, Serum9.0 8.8 Phosphorus, Serum4.7 4.4 ALB3.7 3.2 L Radiology Results: Results: Impression: 1. Interval worsening of bibasilar lung aeration, which may be secondary to increasing edema and/or layering pleural effusions. 2. Bibasilar atelectasis also increased from prior. 3. Stable enlargement of cardiomediastinal silhouette. Xray Chest 1 View [May 25 2018 12:42PM] Conclusion: CONCLUSIONS: 1. Successful deployment of overlapping Resolute Fieldon 2.0 x 30 mm and 3.0 x 22 mm JAZIEL from the middle third of the LCx into the OM3, post- dilated with a 3.0 NC balloon. 2. Successful deployment of overlapping Resolute [place] 2.0 x 30 mm and 2.5 x 34 mm JAZIEL placedfrom the proximal LAD into the middle third of the first diagonal branch, post-dilated with a 2.5 NC balloon. 3. Plan for retrograde RCA HYDRANT SETTER intervention in 1 month. 4. Patient was hypotensive and developed acute blood loss anemia during the procedure (see coronary intervention comments). She was subsequently transferred to the CICU in stable condition. 5. ASA 81 mg daily for life. Plavix 75 mg daily. 6. Patient to follw-up with Dr. Keith as an outpatient for RCA HYDRANT SETTER intervention. 7. 3 gram hemoglobin decrease requiring transfusion of 3 units of PRBCs. ____ CPT Codes: Left Heart Cath Coronary angio w/wo ventriculography (LHC)- 97035; Moderate Sedation Services initial 15 minutes patient >5 years-47471; Moderate Sedation Services 1st additional 15 minutes patient >5 years-03088; Moderate Sedation Services 2nd additional 15 minutes patient >5 years-77972; Moderate Sedation Services 3rd additional 15 minutes patient >5 years-38018; Moderate Sedation Services 4th additional 15 minutes patient >5 years-39433; Moderate Sedation Services 5th additional 15 minutes patient >5 years-22496; Moderate Sedation Services 6th additional 15 minutes patient >5years-31643; Moderate Sedation Services 7th additional 15 minutes patient >5 years-99559; Moderate Sedation Services 8th additional 15 minutes patient >5 years-46336; Stent w angio ather Left Circumflex addl branch major Artery (PCI)-27188.LC; Stent w angio ather Left Anterior Descending addl branch major Artery (PCI)-26826.LD; OCT Initial Vessel (coronary [place] vessel or graft) during diagnostic evaluation and/or therapeutic intervention, initial vessel-56590 Cardiac Catheterization Lab Procedures [May 24 2018 9:07AM] Conclusion: CONCLUSIONS: Right Carotid: Findings are consistent with less than 50% stenosis of the right ICA. The right vertebral artery is patent with antegrade flow. No evidence of hemodynamically significant stenosis in the right subclavian. Left Carotid: Findings are consistent with greater than 70% stenosis of the left ICA. Degree of stenosis may be >80%, based on EDV. There is a >50% stenosis noted in the left external caroltid artery. The left vertebral artery is not visualized. No evidence of hemodynamically significant stenosis in the left subclavian. VASC LAB Carotid Artery Duplex Ultrasound [May 20 2018 1:10PM] Assessment and Plan: Assessment: Ms. Green is a 62 y/o WF with HTN, HLD, Type 2 DM - on insulin, PVD with prior RLE arterial procedure, and CVA 8 years ago (no residual deficits) s/p Rt , CAD with multivessel disease s/p PCI to LAD and LCx (05/18/18), presented as transfer from [facility] ED for acute shortness of breath concerning for acute decompensated heart failure. No leukocytosis or CXR infiltrates suggestive for pneumonia. Appears to have had progressive dyspnea with exertion and presented day of admission with acute shortness of breath with orthopnea, requiring BiPap briefly in ED. Improved with diuresis. Acute on chronic systolic and diastolic HF - TTE 05/14: LVEF 35%, DD, Mild LVH, Mild to mod MR, Mild to mod TR - BNP 3512 - diuresed 3L at OSH - CXR on admission Interval worsening of bibasilar lung aeration, which may be secondary to increasing edema and/or layering pleural effusions. Bibasilar atelectasis also increased from prior. - Last d/c weight 64.3kg - Admit weight 62.8kg - today's wt 60.5kg - cont lasix 40mg IV BID - cont to hold Toprol XL during diuresis (switched from coreg for hypotension) - cont to hold lisinopril (says she wasn't taking at home because always made her dizzy) - orthostatics negative - Daily standing weights, strict I/Os, 2g sodium diet, 2L fluid restriction - Was not on Home diuretic (will likely need one) Vertigo - For past 1 year - feels like my world is spinning - constantly when she has eyes open, worse when up moving around - worse if she takes Lisinopril - only relief when lying in bed with eyes closed - has never sought evaluation - 05/26 Neurology consult --> -Recommend an eye examination for visual acuity and EOMs, and prescription of appropriate glasses, possibly prism glasses, to help correct for her visual mis-alignment. Aggressive treatment of underlying heart failure - Ophthalmology c/s Epistaxis - mild - ocean spray CAD - 05/18 multi vessel disease s/p 2 overlapping JAZIEL in LCx & 2 overlapping JAZIEL in LAD - LHC at the OSH: 90% LAD, 80-90% Circ, 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 No other areas of delayed enhancement is identified in the LAD or LCx territory. - ASA/Plavix - troponin: 1.6 -> 1.8 -> 1.62 PAD - s/p Left CEA in setting of CVA - vascular surgery consulted pre-op - carotid duplex: R: < 50% stenosis, L >50% stenosis - ABIs: R ratio 0.66, 0.70, L ratio 0.59 - brachial pressure 124mmHg on right and 103mmHg on left - CTA head and neck: Severe stenosis at the origin of the left internal carotid artery. Moderate narrowing at the proximal right common carotid artery - Vasc f/u in one month with Dr. Jimenez at [facility] Chronic Leukocytosis - WBCs 8-14 over previous 2-3 hospitalizations - no s/s of infection - today's WBC 8.2 Hyperlipidemia - cont statin Type II DM - Home dose insuline glargine 18units - 10 units Glargine while inpatient - SSI, accuchecks, hypoglycemia protocol - 05/11 Hgb A1C 6.6% Dispo Full code Seen and discussed with Dr. Jauregui Signature/Cosignature/Attestation: Provider/Team Contact Info-Pager [phone] Electronic Signatures: Nora Grande (COMMUNICATIONS PROGRAM MANAGER-CREDIT CONTROL ADMINISTRATOR) (Signed 28-May-2018 11:12) Authored: Service, Subjective Data, Objective Data, Assessment and Plan, Signature/Cosignature/Attestation Jacob Jauregui) (Signed 30-May-2018 17:26) Co-Signer: Objective Data, Assessment and Plan, Signature/Cosignature/Attestation Last Updated: 30-May-2018 17:26 by Jacob Jauregui) EMR ADDON Collected: 05/28/2018 Status: F Source: [facility] 8:46 AM HOSPITALS REPOSITORY TYPE CODE TESTS RESULT OUT OF REFERENCE UNITS RANGE LAB EMRAC(PUSHPAIN C) ADDON CONFIRMATION REQUEST REC'D Performed By: #### EMRAD #### NO LOCATION NEEDED GLUCOSE-POCT Collected: 05/28/2018 Status: F Source: [facility] 8:35 AM HOSPITALS REPOSITORY TYPE CODE TESTS RESULT OUT OF RANGE REFERENCE UNITS LAB GLUP(LOINC) 74 - 99 mg/dL High 143 GLUCOSE-POCT Performed By: #### GLUPO #### [facility] [id number] [place] [id number] GLUCOSE-POCT Collected: 05/27/2018 Status: F Source: [facility] 9:04 PM HOSPITALS REPOSITORY TYPE CODE TESTS RESULT OUT OF RANGE REFERENCE UNITS LAB GLUP(LOINC) 74 - 99 mg/dL High 155 GLUCOSE-POCT Performed By: #### GLUPO #### [facility] [id number] [place] [id number] CBC Collected: 05/27/2018 Status: F Source: [facility] 7:54 PM [facility] REPOSITORY TYPE CODE TESTS RESULT OUT OF REFERENCE UNITS RANGE LAB WBCR(LOINC 4.4 - 11.3 x10E9/L ) WBC 8.2 LAB NRBC(LOINC 0.0-0.0 /100 WBC ) NUCLEATED RBC 0.0 LAB RBCCT(LOIN 4.00 - 5.20 x10E12/L C) RBC 4.02 LAB HGB(LOINC) 12.0 - 16.0 g/dL Low HGB 11.7 LAB HCT(LOINC) 36.0 - 46.0 % HCT 36.5 LAB MCV(LOINC) 80 - 100 fL MCV 91 LAB MCHC2(LOIN 32.0 - 36.0 g/dL C) MCHC 32.1 LAB PLTCT(LOIN 150 - 450 x10E9/L C) PLT 360 LAB RDWCV(LOIN 11.5 - 14.5 % C) RDW-CV 14.2 Performed By: #### CBC #### [facility] [address] [place] [id number] RENAL FUNCTION PANEL Collected: 05/27/2018 Status: F Source: [place] 7:54 PM [facility] REPOSITORY TYPE CODE TESTS RESULT OUT OF RANGE REFERENCE UNITS LAB GLU(LOINC) 74 - 99 mg/dL High GLUCOSE 132 LAB SOD(LOINC) 136 - 145 mmol/L SODIUM 137 LAB K(LOINC) 3.5 - 5.3 mmol/L POTASSIUM 3.6 LAB CHLOR(LOIN 98 - 107 mmol/L C) Low CHLORIDE 97 LAB BIC(LOINC) 21 - 32 mmol/L BICARBONATE 29 LAB ANGAP(LOIN 10 - 20 mmol/L C) ANION GAP 15 LAB UREA(LOINC 6 - 23 mg/dL ) UREA NITROGEN 22 LAB CREA(LOINC 0.50 - 1.05 mg/dL ) High CREATININE 1.16 LAB GFRFN(LOIN >60 mL/min/1.7 C) 3m2 GFR-NON Abnormal AM. 47 LAB GFRAA(LOIN >60 mL/min/1.7 C) 3m2 GFR- Abnormal AM. 57 Result Comment: CALCULATIONS OF ESTIMATED GFR ARE PERFORMED USING THE MDRD STUDY EQUATION FOR THE IDMS-TRACEABLE CREATININE METHODS. CLIN CHEM 2007;53:766-72 LAB CA(LOINC) 8.6 - 10.6 mg/dL CALCIUM 9.0 LAB PHOS(LOINC) 2.5 - 4.9 mg/dL PHOSPHORUS 4.7 Result Comment: The performance characteristics of phosphorus testing in heparinized plasma have been validated by the individual laboratory site where testing is performed. Testing on heparinized plasma is not approved by the FDA; however, such approval is not necessary. LAB ALB(LOINC) 3.4 - 5.0 g/dL ALBUMIN 3.7 Performed By: #### RENAL #### [facility] [id number] [place] [address] BNP Collected: 05/27/2018 Status: F Source: [place] 7:54 PM [facility] REPOSITORY TYPE CODE TESTS RESULT OUT OF RANGE REFERENCE UNITS LAB BNP2(LOINC) 0 - 99 pg/mL High BNP 1802 Result Comment: . <100 pg/mL - Heart failure unlikely 100-299 pg/mL - Intermediate probability of acute heart . failure exacerbation. Correlate with clinical . context and patient history. >=300 pg/mL - Heart Failure likely. Correlate with clinical . context and patient history. BNP testing is performed using different testing methodology at [facility] than at other [facility]. Direct result comparisons should only be made within the same method. Performed By: #### BNP2 #### [facility] [address] [place] [address] GLUCOSE-POCT Collected: 05/27/2018 Status: F Source: [facility] 5:33 PM [facility] REPOSITORY TYPE CODE TESTS RESULT OUT OF RANGE REFERENCE UNITS LAB GLUP(LOINC) 74 - 99 mg/dL High 214 GLUCOSE-POCT Performed By: #### GLUPO #### [facility] [address] [place] [address] DAILY PROGRESS Observed: 05/27/2018 Status: COMPLETED Source: [facility]-CARDIOLOGY 3:09 PM HOSPITALS REPOSITORY Service: Cardiology Subjective Data: DAVINA GREEN is a 62 year old Female who is Hospital Day # 4. Additional Information: Remains hypervolemic, - Lasix 40mg IV BID - Ophthalmology c/s Objective Data: Objective Information: ---- Intake and Output ----- Mn/Dy/Year TimeIntakeOutputNet May 27, 2018 2:00 [id number] May 27, 2018 6:00 [id number] May 26, 2018 10:00 [id number] The Intake and Output Totals for the last 24 hours are: IntakeOutputNet [id number] T PRBPSpO2 Value35.2652724/6296% Date/Time05/27 12: 12: 12: 12: 12:00 Range(35.8C - 36.9C ) (80 - 90 ) (20 - 20 ) (94 - 123 )/ (62 - 76 ) (94% - 98% ) Highest temp of 36.9 C was recorded at 05/27 8:00 Weights 05/27 5:00: Weight in kg (Weight (kg)) 60.5 05/27 5:00: Weight in lbs ((lbs)) 133.4 Physical Exam: Constitutional: chronically ill appearing female, NAD Head/Neck: JVD to mid neck at 45 degrees Respiratory/Thorax: reduced A/E and rales bibasilar Cardiovascular: RRR normal S1S2, no m/r/g Gastrointestinal: soft, ND, NT Extremities: no LE edema Neurological: AOx3, moving all extremities Psychological: Appropriate mood and behavior Skin: warm and dry Medication: Medications: Continuous Medications No continuous medications are active Scheduled Medications 1. Aspirin Chewable: 81 mg Oral Daily 2. Atorvastatin: 40 mg Oral Daily 3. Clopidogrel: 75 mg Oral Daily 4. Enoxaparin SubCutaneous: 40 mg SubCutaneous Every 24 Hours 5. Furosemide Injectable: 40 mg IntraVenous Push 2 Times a Day 6. Insulin Glargine (Lantus) Injectable: 10 unit(s) SubCutaneous Every 24 Hours 7. Insulin Lispro Mild Corrective Scale: unit(s) SubCutaneous 3 Times a Day Before Meals 8. Sodium Chloride 0.65% Nasal [place]: 2 spray(s) Each Nostril 2 Times a Day PRN Medications 1. Dextrose 50% in Water Injectable: 25 gram(s) IntraVenous Push Every 15 Minutes 2. Glucagon Injectable: 1 mg IntraMuscular Every 15 Minutes 3. traMADol: 25 mg Oral Every 6 Hours Currently Suspended Medications 1. Metoprolol Succinate Extended Release: 25 mg Oral Daily Recent Lab Results: Results: I have reviewed these laboratory results: Glucose_POCT Trending View [id number] 11:58:00 27-May-2018 07:24:00 26-May-2018 18:16:00 26-May-2018 13:42:00 Glucose-IFBE202 H 144 H 211 H 161 H Complete Blood Count Trending View [id number] 08:00:00 26-May-2018 09:35:00 White Blood Cell Count8.1 8.1 Nucleated Erythrocyte Count0.0 0.0 Red Blood Cell Count3.73 L 3.97 L HGB10.9 L 11.6 L HCT33.8 L 35.6 L MCV91 90 MCHC32.2 32.6 KLR338 355 RDW-CV14.4 14.5 Renal Function Panel Trending View [id number] 08:00:00 26-May-2018 09:35:00 Glucose, Uawoy623 H 90 NA137 136 K4.0 4.3 CL102 101 Bicarbonate, Serum26 25 Anion Gap, Serum13 14 BUN16 17 CREAT1.15 H 1.15 H GFR-Non Chgabxuj52 A 48 A GFR- Piigpyzj87 A 58 A Calcium, Serum8.8 8.7 Phosphorus, Serum4.4 4.1 ALB3.2 L 3.4 Magnesium, Serum -Apr-2018 09:35:00 ResultValue Magnesium, Serum 2.22 Radiology Results: Results: Impression: 1. Interval worsening of bibasilar lung aeration, which may be secondary to increasing edema and/or layering pleural effusions. 2. Bibasilar atelectasis also increased from prior. 3. Stable enlargement of cardiomediastinal silhouette. Xray Chest 1 View [May 25 2018 12:42PM] Impression: 1. New mild perihilar congestion interstitial pulmonary edema with right basilar pleural effusion. Xray Chest 1 View [May 24 2018 2:24PM] Assessment and Plan: Assessment: Ms. Green is a 62 y/o WF with HTN, HLD, Type 2 DM - on insulin, PVD with prior RLE arterial procedure, and CVA 8 years ago (no residual deficits) s/p Rt , CAD with multivessel disease s/p PCI to LAD and LCx (05/18/18), presented as transfer from [facility] ED for acute shortness of breath concerning for acute decompensated heart failure. No leukocytosis or CXR infiltrates suggestive for pneumonia. Appears to have had progressive dyspnea with exertion and presented day of admission with acute shortness of breath with orthopnea, requiring BiPap briefly in ED. Improved with diuresis. Acute on chronic systolic and diastolic HF - TTE 05/14: LVEF 35%, DD, Mild LVH, Mild to mod MR, Mild to mod TR - presenting with acute decompensated heart failure - BNP 3512 - diuresed 3L at OSH - CXR on admission 1. Interval worsening of bibasilar lung aeration, which may be secondary to increasing edema and/or layering pleural effusions. 2. Bibasilar atelectasis also increased from prior. - Last discharge weight 64.3kg - Admission weight 62.8kg - weight today 60.5kg - 05/26 Lasix 40mg IV - Lasix 40mg IV BID - switch coreg 3.125mg BID to metoprolol tartrate 25mg BID for blood pressure room - stop lisinopril 5mg daily; says she wasn't taking at home because always made her dizzy - orthostatics negative - Daily standing weights, strict I&O's, 2g sodium diet, 2L fluid restriction - Was not on Home diuretic (will likely need one) Vertigo -For past 1 year - feels like my world is spinning - constantly when she has eyes open - worse when up moving around - worse if she takes Lisinopril - only relief when lying in bed with eyes closed - has never sought evaluation - 05/26 Neurology consult --> -Recommend an eye examination for visual acuity and EOMs, and prescription of appropriate glasses, possibly prism glasses, to help correct for her visual mis-alignment. 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 No other areas of delayed enhancement is identified in the LAD or LCx territory. - ASA/Plavix - troponin: 1.6 >1.8> 1.62 PAD - s/p Left CEA in setting of CVA - vascular surgery consulted pre-op - carotid duplex: R: < 50% stenosis, L >50% stenosis - ABIs: R ratio 0.66, 0.70, L ratio 0.59 - brachial pressure 124mmHg on right and 103mmHg on left - CTA head and neck: Severe stenosis at the origin of the left internal carotid artery. Moderate narrowing at the proximal right common carotid artery - Vasc f/u in one month with Dr. Jimenez at [facility] Chronic Leukocytosis - WBCs 8-14 over previous 2-3 hospitalizations - no s/s of infection Hyperlipidemia - cont statin Type II DM - Home dose insuline glargine 18units - 10 units Glargine while inpatient - ISS, accuhecks - 05/11 Hgb A1C 6.6% - BS 96, 161, 211, 144 Full code Electronic Signatures: Jenny Leggett (COMMUNICATIONS PROGRAM MANAGER-CREDIT CONTROL ADMINISTRATOR) (Signed 27-May-2018 15:25) Authored: Service, Subjective Data, Objective Data, Assessment and Plan, Signature/Cosignature/Attestation Dennys Lainez) (Signed 27-May-2018 16:03) Co-Signer: Service, Subjective Data, Objective Data, Assessment and Plan, Signature/Cosignature/Attestation Last Updated: 27-May-2018 16:03 by Dennys Lainez) GLUCOSE-POCT Collected: 05/27/2018 Status: F Source: [facility] 11:58 AM HOSPITALS REPOSITORY TYPE CODE TESTS RESULT OUT OF RANGE REFERENCE UNITS LAB GLUP(LOINC) 74 - 99 mg/dL High 218 GLUCOSE-POCT Performed By: #### GLUPO #### [facility] [address] [place] [address] CBC Collected: 05/27/2018 Status: F Source: [facility] 8:00 AM HOSPITALS REPOSITORY TYPE CODE TESTS RESULT OUT OF REFERENCE UNITS RANGE LAB WBCR(LOINC 4.4 - 11.3 x10E9/L ) WBC 8.1 LAB NRBC(LOINC 0.0-0.0 /100 WBC ) NUCLEATED RBC 0.0 LAB RBCCT(LOIN 4.00 - 5.20 x10E12/L C) Low RBC 3.73 LAB HGB(LOINC) 12.0 - 16.0 g/dL Low HGB 10.9 LAB HCT(LOINC) 36.0 - 46.0 % Low HCT 33.8 LAB MCV(LOINC) 80 - 100 fL MCV 91 LAB MCHC2(LOIN 32.0 - 36.0 g/dL C) MCHC 32.2 LAB PLTCT(LOIN 150 - 450 x10E9/L C) PLT 345 LAB RDWCV(LOIN 11.5 - 14.5 % C) RDW-CV 14.4 Performed By: #### CBC #### [facility] [address] [place] [id number] RENAL FUNCTION PANEL Collected: 05/27/2018 Status: F Source: [facility] 8:00 AM HOSPITALS REPOSITORY TYPE CODE TESTS RESULT OUT OF RANGE REFERENCE UNITS LAB GLU(LOINC) 74 - 99 mg/dL High GLUCOSE 130 LAB SOD(LOINC) 136 - 145 mmol/L SODIUM 137 LAB K(LOINC) 3.5 - 5.3 mmol/L POTASSIUM 4.0 LAB CHLOR(LOIN 98 - 107 mmol/L C) CHLORIDE 102 LAB BIC(LOINC) 21 - 32 mmol/L BICARBONATE 26 LAB ANGAP(LOIN 10 - 20 mmol/L C) ANION GAP 13 LAB UREA(LOINC 6 - 23 mg/dL ) UREA NITROGEN 16 LAB CREA(LOINC 0.50 - 1.05 mg/dL ) High CREATININE 1.15 LAB GFRFN(LOIN >60 mL/min/1.7 C) 3m2 GFR-NON Abnormal AM. 48 LAB GFRAA(LOIN >60 mL/min/1.7 C) 3m2 GFR- Abnormal AM. 58 Result Comment: CALCULATIONS OF ESTIMATED GFR ARE PERFORMED USING THE MDRD STUDY EQUATION FOR THE IDMS-TRACEABLE CREATININE METHODS. CLIN CHEM 2007;53:766-72 LAB CA(LOINC) 8.6 - 10.6 mg/dL CALCIUM 8.8 LAB PHOS(LOINC) 2.5 - 4.9 mg/dL PHOSPHORUS 4.4 Result Comment: The performance characteristics of phosphorus testing in heparinized plasma have been validated by the individual laboratory site where testing is performed. Testing on heparinized plasma is not approved by the FDA; however, such approval is not necessary. LAB ALB(LOINC) 3.4 - 5.0 g/dL Low ALBUMIN 3.2 Performed By: #### RENAL #### [facility] [address] [place] [address] GLUCOSE-POCT Collected: 05/27/2018 Status: F Source: [facility] 7:24 AM HOSPITALS REPOSITORY TYPE CODE TESTS RESULT OUT OF RANGE REFERENCE UNITS LAB GLUP(LOINC) 74 - 99 mg/dL High 144 GLUCOSE-POCT Performed By: #### GLUPO #### [facility] [address] [place] [address] DAILY PROGRESS Observed: 05/26/2018 Status: COMPLETED Source: [facility] NOTE-CARDIOLOGY 6:42 PM HOSPITALS REPOSITORY Service: Cardiology Subjective Data: DAVINA GREEN is a 62 year old Female who is Hospital Day # 3. Additional Information: Breathing improved after 3L diuresis at OSH, remains moderately hypervolemic, reporting vertigo for past 1 year - Lasix 40mg IV - Neurology consult Objective Data: Objective Information: ---- Intake and Output ----- Mn/Dy/Year TimeIntakeOutputNet May 26, 2018 2:00 [id number] May 26, 2018 6:00 [id number] May 25, 2018 10:00 pm000 The Intake and Output Totals for the last 24 hours are: IntakeOutputNet [id number] T PRBPSpO2 Value37.99445986/6394% Date/Time05/26 13: 13: 13: 13: 13:47 Range(36.5C - 37.1C ) (73 - 100 ) (17 - 26 ) (92 - 128 )/ (40 - 71 ) (92% - 98% ) Highest temp of 37.1 C was recorded at 05/26 13:47 Weights 05/26 9:16: Weight in kg (Weight (kg)) 62.8 05/26 9:16: Weight in lbs ((lbs)) 138.6 Physical Exam: Constitutional: chronically ill appearing female, NAD Head/Neck: JVD to mid neck at 45 degrees Respiratory/Thorax: reduced A/E and rales bibasilar Cardiovascular: RRR normal S1S2, no m/r/g Gastrointestinal: soft, ND, NT Extremities: no LE edema Neurological: AOx3, moving all extremities Psychological: Appropriate mood and behavior Skin: warm and dry Medication: Medications: Continuous Medications No continuous medications are active Scheduled Medications 1. Aspirin Chewable: 81 mg Oral Daily 2. Atorvastatin: 40 mg Oral Daily 3. Clopidogrel: 75 mg Oral Daily 4. Enoxaparin SubCutaneous: 40 mg SubCutaneous Every 24 Hours 5. Insulin Glargine (Lantus) Injectable: 10 unit(s) SubCutaneous Every 24 Hours 6. Insulin Lispro Mild Corrective Scale: unit(s) SubCutaneous 3 Times a Day Before Meals 7. Metoprolol Succinate Extended Release: 25 mg Oral Daily 8. Sodium Chloride 0.65% Nasal [place]: 2 spray(s) Each Nostril 2 Times a Day PRN Medications 1. Dextrose 50% in Water Injectable: 25 gram(s) IntraVenous Push Every 15 Minutes 2. Glucagon Injectable: 1 mg IntraMuscular Every 15 Minutes Recent Lab Results: Results: I have reviewed these laboratory results: Glucose_POCT Trending View [id number] 18:16:00 26-May-2018 13:42:00 26-May-2018 09:04:00 25-May-2018 19:40:00 25-May-2018 15:39:00 25-May-2018 11:31:00 25-May-2018 07:27:00 [id number] H 161 H 96 107 H 113 H 163 H 95 Complete Blood Count 26-May-2018 09:35:00 ResultValue White Blood Cell Count 8.1 Nucleated Erythrocyte Count 0.0 Red Blood Cell Count 3.97 L HGB 11.6 L HCT 35.6 L MCV 90 MCHC 32.6 PLT 355 RDW-CV 14.5 Renal Function Panel 26-May-2018 09:35:00 ResultValue Glucose, Serum 90 NA 136 K 4.3 CL 101 Bicarbonate, Serum 25 Anion Gap, Serum 14 BUN 17 CREAT 1.15 H GFR-Non 48 A GFR- 58 A Calcium, Serum 8.7 Phosphorus, Serum 4.1 ALB 3.4 Magnesium, Serum 26-May-2018 09:35:00 ResultValue Magnesium, Serum 2.22 Radiology Results: Results: Impression: 1. Interval worsening of bibasilar lung aeration, which may be secondary to increasing edema and/or layering pleural effusions. 2. Bibasilar atelectasis also increased from prior. 3. Stable enlargement of cardiomediastinal silhouette. Xray Chest 1 View [May 25 2018 12:42PM] Impression: 1. New mild perihilar congestion interstitial pulmonary edema with right basilar pleural effusion. Xray Chest 1 View [May 24 2018 2:24PM] Assessment and Plan: Assessment: Ms. Green is a 62 y/o WF with HTN, HLD, Type 2 DM - on insulin, PVD with prior RLE arterial procedure, and CVA 8 years ago (no residual deficits) s/p Rt , CAD with multivessel disease s/p PCI to LAD and LCx (05/18/18), presented as transfer from [facility] ED for acute shortness of breath concerning for acute decompensated heart failure. No leukocytosis or CXR infiltrates suggestive for pneumonia. Appears to have had progressive dyspnea with exertion and presented day of admission with acute shortness of breath with orthopnea, requiring BiPap briefly in ED. Improved with diuresis. Acute on chronic systolic and diastolic HF - TTE 05/14: LVEF 35%, DD, Mild LVH, Mild to mod MR, Mild to mod TR - presenting with acute decompensated heart failure - BNP 3512 - diuresed 3L at OSH - CXR on admission 1. Interval worsening of bibasilar lung aeration, which may be secondary to increasing edema and/or layering pleural effusions. 2. Bibasilar atelectasis also increased from prior. - Last discharge weight 64.3kg - Admission weight 62.8kg - Lasix 40mg IV - switch coreg 3.125mg BID to metoprolol tartrate 25mg BID for blood pressure room - stop lisinopril 5mg daily; says she wasn't taking at home because always made her dizzy - orthostatics negative - Daily standing weights, strict I&O's, 2g sodium diet, 2L fluid restriction - No Home diuretic Vertigo -For past 1 year - feels like my world is spinning - constantly when she has eyes open - worse when up moving around - worse if she takes Lisinopril - only relief when lying in bed with eyes closed - has never sought evaluation - Neurology consult Epistaxis -mild - ocean spray CAD - 05/18 multi vessel disease s/p 2 overlapping JAZIEL in LCx & 2 overlapping JAZIEL in LAD - LHC at the OSH: 90% LAD, 80-90% Circ, 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 No other areas of delayed enhancement is identified in the LAD or LCx territory. - ASA/Plavix - troponin: 1.6 >1.8> 1.62 PAD - s/p Left CEA in setting of CVA - vascular surgery consulted pre-op - carotid duplex: R: < 50% stenosis, L >50% stenosis - ABIs: R ratio 0.66, 0.70, L ratio 0.59 - brachial pressure 124mmHg on right and 103mmHg on left - CTA head and neck: Severe stenosis at the origin of the left internal carotid artery. Moderate narrowing at the proximal right common carotid artery - Vasc f/u in one month with Dr. Jimenez at [facility] Chronic Leukocytosis - WBCs 8-14 over previous 2-3 hospitalizations - no s/s of infection Hyperlipidemia - cont statin Type II DM - Home dose insuline glargine 18units - 10 units Glargine while inpatient - ISS, accuhecks - 05/11 Hgb A1C 6.6% - BS 95, 163, 113, 107 Full code Electronic Signatures: Jenny Leggett (COMMUNICATIONS PROGRAM MANAGER-CREDIT CONTROL ADMINISTRATOR) (Signed 26-May-2018 18:52) Authored: Service, Subjective Data, Objective Data, Assessment and Plan, Signature/Cosignature/Attestation Dennys Lainez) (Signed 27-May-2018 08:10) Co-Signer: Service, Subjective Data, Objective Data, Assessment and Plan, Signature/Cosignature/Attestation Last Updated: 27-May-2018 08:10 by Dennys Lainez) GLUCOSE-POCT Collected: 05/26/2018 Status: F Source: [facility] 6:16 PM [facility] REPOSITORY TYPE CODE TESTS RESULT OUT OF RANGE REFERENCE UNITS LAB GLUP(LOINC) 74 - 99 mg/dL High 211 GLUCOSE-POCT Performed By: #### GLUPO #### [facility] [id number] [place] [address] GLUCOSE-POCT Collected: 05/26/2018 Status: F Source: [facility]IN 1:42 PM [facility] REPOSITORY TYPE CODE TESTS RESULT OUT OF RANGE REFERENCE UNITS LAB GLUP(LOINC) 74 - 99 mg/dL High 161 GLUCOSE-POCT Performed By: #### GLUPO #### [facility] [id number] [place] [address] CONSULT - NEURO-GENERAL Observed: 05/26/2018 Status: COMPLETED Source: [facility] 1:34 PM [facility]ITALS REPOSITORY Service: Service: Service: General Consult: Consult requested by (Attending Name): Migel Reason: Vertigo History of Present Illness: HPI: 62 yo RH female with a h/o HTN, HLD, type II DM, and stroke in 2009 s/p Rt CEA (no residual deficits), CAD s/p PCI with JAZIEL LCx and LAD proximal to middle third on 05/18/18, who presented initially for SOB thought to be secondary to ADHF, for whom neurology was consulted for chronic lightheadedness/dizziness. She was recently hospitalized 05/10-05/20/18 for CABG evaluation. TTE showed EF 37% and diastolic dysfunction. LHC showed severe three-vessel disease with 90% stenosis of LAD, 80-90% stenosis of LCx, completely occluded RCA. 05/18 had JAZIEL placed in LCx and LAD. Complicated by hypotension due to acute blood loss anemia, requiring 3 units pRBC and received protamine for heparin reversal. Hemostasis achieved in R groin site. Plan for patient to return in 1 month for retrograde RCA HYDRANT SETTER with Dr. Keith. Discharge weigh 64.3kg Started having dizziness approximately 2 years ago. She is unsure of the exact time this started, but states the onset has been gradual. Symptoms have been gradually getting worse. Initially, she was able to walk outside the house and help her in the yard. However, over the past several months, she has been unable to leave the house as she is concerned about falling, due to this dizziness. When asked to described the symptoms, she denies a spinning sensation, but endorses lightheadedness, and is unable to provide further description of her symptoms. She says that her symptoms are worse when she stands up. Nothing gives relief of her symptoms, and she does not note a particular time of day when they are worse. On ROS, endorses headaches intermittently, that are sinus headaches, frontal. No family hx of migraines that she knows of. 14 point ROS reviewed and otherwise negative. 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 Father of SD in mid-50s. Review Family/Social History and ROS: Review Family/Social History and ROS: no relevant family history Incomplete ROS: patient's impaired mental status Constitutional: POSITIVE: Malaise Eyes: POSITIVE: Blurry Vision ENMT: NEGATIVE: Nasal Discharge, Nasal Congestion, Ear Pain, Mouth Pain, Throat Pain Respiratory: POSITIVE: Shortness of Breath Cardiac: POSITIVE: Dyspnea on Exertion Gastrointestinal: NEGATIVE: Nausea, Vomiting, Diarrhea, Constipation, Abdominal Pain Genitourinary: NEGATIVE: Discharge, Dysuria, Flank Pain, Frequency, Hematuria Musculoskeletal: NEGATIVE: Decreased ROM, Pain, Swelling, Stiffness, Weakness Neurological: COMMENTS: lightheadedness Psychiatric: NEGATIVE: Mood Changes, Anxiety, Hallucinations, Sleep Changes, Suicidal Ideas Skin: NEGATIVE: Mass, Pain, Pruritus, Rash, Ulcer Endocrine: NEGATIVE: Heat Intolerance, Cold Intolerance, Sweat, Polyuria, Thirst Hematologic/Lymph: NEGATIVE: Anemia, Bruising, Easy Bleeding, Night Sweats, Petechiae Allergic/Immunologic: NEGATIVE: Anaphylaxis, Itchy/ Teary Eyes, Itching, Sneezing, Swelling Breast: NEGATIVE: Pain, Mass, Discharge, Nipple Itching, Gynecomastia Allergies: penicillin: Hives/Urticaria Objective: Objective Information: T PRBPSpO2 [id number]% Date/Time05/26 12: 12: 12: 12: 12:00 Range(36.3C - 36.6C ) (73 - 100 ) (15 - 26 ) (92 - 139 )/ (40 - 71 ) (89% - 98% ) As of 25-May-2018 16:00:00, patient is on 2 L/min of oxygen via room air. General Neurology: General Neurology Extensive Exam: GENERAL: lady laying in bed. Slightly uncomfortable, but in no acute distress. CV: Regular rate and rhythm No murmurs Respiratory: Clear to auscultation bilaterally No wheezing NEURO EXAM: MENTAL STATE: Alert and oriented to self, date, place. Recent and remote memory was intact. Attention span and concentration were normal. Language testing was normal for comprehension, repetition, expression, and naming. General fund of knowledge was intact. OPHTHALMOSCOPIC: Deferred due to miosis HAYLEE HALLPIKE MANEUVER does not show any nystagmus. Patient became very light headed on haylee hallpike maneuver, but no nystagmus seen. Head impulse testing not showing any abnormal saccades. CRANIAL NERVES: CN 2 Visual castorena full to confrontation. CN 3, 4, 6 LEFT EYE TROCHLEAR PALSY. NOTABLE RIGHT HEAD TILT AT BASELINE. Pupils round, 3 mm in diameter, equally reactive to light. Lids symmetric; no ptosis. EOMs normal alignment, full range with normal saccades, pursuit and convergence. VOR normal. No nystagmus. CN 5 Facial sensation intact bilaterally. CN 7 Normal and symmetric facial strength. Nasolabial folds symmetric. CN 8 Hearing intact to voice CN 9 Palate elevates symmetrically. CN 11 Normal strength of shoulder shrug and neck turning. CN 12 Tongue midline, with normal bulk and strength; no fasciculations. MOTOR: Muscle bulk: Normal throughout. Muscle tone: Normal in both upper and lower extremities. Movements: No fasciculations, tremors or other abnormal movement. Deltoid: R5L5 Biceps: R5L5 Triceps: R5L5 Wrist Flex: R5L5 Wrist Ext: R5L5 Finger Abd: R5L5 Hip Flex: R5L5 Knee Flex: R5L5 Knee Ext: R5L5 DorsiFlex: R5L5 PlantarFlex: R5L5 SENSORY: Decreased sensation to pinprick on LLE and RLE below the knee, worse on right. Intact to light touch bilaterally REFLEXES: Biceps: R3L2 Triceps: R3L2 Brachioradialis: R3L2 Patellar: R0L0 Achilles: R0L0 Plantar Response: Mute bilaterally. Limited by pain. COORDINATION: Wsallo-Beyd-Hkfsfu: intact b/l, Heel to Larson: intact b/l GAIT - Slow, cautious gait. Unsteady. Romberg negative. Medications: Medications: Continuous Medications No continuous medications are active Scheduled Medications 1. Aspirin Chewable: 81 mg Oral Daily 2. Atorvastatin: 40 mg Oral Daily 3. Clopidogrel: 75 mg Oral Daily 4. Enoxaparin SubCutaneous: 40 mg SubCutaneous Every 24 Hours 5. Insulin Glargine (Lantus) Injectable: 10 unit(s) SubCutaneous Every 24 Hours 6. Insulin Lispro Mild Corrective Scale: unit(s) SubCutaneous 3 Times a Day Before Meals 7. Metoprolol Succinate Extended Release: 25 mg Oral Daily 8. Sodium Chloride 0.65% Nasal [place]: 2 spray(s) Each Nostril 2 Times a Day PRN Medications 1. Dextrose 50% in Water Injectable: 25 gram(s) IntraVenous Push Every 15 Minutes 2. Glucagon Injectable: 1 mg IntraMuscular Every 15 Minutes 3. traMADol: 25 mg Oral Every 6 Hours Recent Lab Results: Results: I have reviewed these laboratory results: Glucose_POCT 26-May-2018 18:16:00 ResultValue Glucose-POCT 211 H Complete Blood Count 26-May-2018 09:35:00 ResultValue White Blood Cell Count 8.1 Nucleated Erythrocyte Count 0.0 Red Blood Cell Count 3.97 L HGB 11.6 L HCT 35.6 L MCV 90 MCHC 32.6 PLT 355 RDW-CV 14.5 Renal Function Panel 26-May-2018 09:35:00 ResultValue Glucose, Serum 90 NA 136 K 4.3 CL 101 Bicarbonate, Serum 25 Anion Gap, Serum 14 BUN 17 CREAT 1.15 H GFR-Non 48 A GFR- 58 A Calcium, Serum 8.7 Phosphorus, Serum 4.1 ALB 3.4 Magnesium, Serum 26-May-2018 09:35:00 ResultValue Magnesium, Serum 2.22 Radiology Results: Results: Impression: 1. Interval worsening of bibasilar lung aeration, which may be secondary to increasing edema and/or layering pleural effusions. 2. Bibasilar atelectasis also increased from prior. 3. Stable enlargement of cardiomediastinal silhouette. Xray Chest 1 View [May 25 2018 12:42PM] Assessment/Recommendations: 62 yo RH female with a h/o HTN, HLD, type II DM, and stroke in 2010 s/p Rt CEA (no residual deficits), CAD s/p PCI with JAZIEL LCx and LAD proximal to middle third on 05/18/18, who presented initially for SOB thought to be secondary to ADHF, for whom neurology was consulted for chronic lightheadedness/dizziness. Impression: Onset of symptoms was gradual over ~2 years, and are not positional. This would make BPPV an unlikely diagnosis. The patient complained of blurry vision that has been going on for several years as well. This may be contributing to her symptoms. 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 This may be secondary to trauma, as she had a history of head trauma 14 years ago. This vision misalignment may be contributing to the patient's symptoms. This may also be a manifestation of persistent postural perceptual dizziness, which may be managed by physical therapy. However, this is a diagnosis of exclusion. Recs: -Recommend an eye examination for visual acuity and EOMs, and prescription of appropriate glasses, possibly prism glasses, to help correct for her visual mis-alignment. Aggressive treatment of underlying heart failure Signature/Cosignature/Attestation: Attending AttestationI saw and evaluated the patient. I personally obtained the rico and critical portions of the history and physical exam or was physically present for rico and critical portions performed by the resident/fellow. I reviewed the resident/fellows documentation and discussed the patient with the resident/fellow. I agree with the resident/fellows medical decision making as documented in the residents note. I personally evaluated the patient (as noted in the above attestation) on 27-May-2018 Comments/ Additional Findings Patient seen; she has long standing lightheaededness and some vertigo; unclear if she has diplopia; She is SOB at rest and the symptoms track with her breathing and heart failure- recommend treatment of underlying heart problems as a main therapeutic approach. Electronic Signatures: Marck Butts) (Signed 27-May-2018 12:51) Authored: Review Family/Social History and ROS, Assessment/Recommendations, Signature/Cosignature/Attestation Co-Signer: History of Present Illness, Objective, Assessment/Recommendations, Signature/Cosignature/Attestation Maribel Perez (Resident)) (Signed 26-May-2018 21:01) Authored: Service, History of Present Illness, Allergies, Objective, Assessment/Recommendations, Signature/Cosignature/Attestation Last Updated: 27-May-2018 12:51 by Marck Butts) CBC Collected: 05/26/2018 Status: F Source: [facility] 9:35 AM [facility] REPOSITORY TYPE CODE TESTS RESULT OUT OF REFERENCE UNITS RANGE LAB WBCR(LOINC 4.4 - 11.3 x10E9/L ) WBC 8.1 LAB NRBC(LOINC 0.0-0.0 /100 WBC ) NUCLEATED RBC 0.0 LAB RBCCT(LOIN 4.00 - 5.20 x10E12/L C) Low RBC 3.97 LAB HGB(LOINC) 12.0 - 16.0 g/dL Low HGB 11.6 LAB HCT(LOINC) 36.0 - 46.0 % Low HCT 35.6 LAB MCV(LOINC) 80 - 100 fL MCV 90 LAB MCHC2(LOIN 32.0 - 36.0 g/dL C) MCHC 32.6 LAB PLTCT(LOIN 150 - 450 x10E9/L C) PLT 355 LAB RDWCV(LOIN 11.5 - 14.5 % C) RDW-CV 14.5 Performed By: #### CBC #### [facility] [id number] [place] [address] MAGNESIUM Collected: 05/26/2018 Status: F Source: GORIN 9:35 [facility] REPOSITORY TYPE CODE TESTS RESULT OUT OF REFERENCE UNITS RANGE LAB MG(LOINC) 1.60 - 2.40 mg/dL MAGNESIUM 2.22 Performed By: #### MG #### [facility] [address] [place] [id number] RENAL FUNCTION PANEL Collected: 05/26/2018 Status: F Source: [facility]ORIN 9:35 [facility] REPOSITORY TYPE CODE TESTS RESULT OUT OF RANGE REFERENCE UNITS LAB GLU(LOINC) 74 - 99 mg/dL GLUCOSE 90 LAB SOD(LOINC) 136 - 145 mmol/L SODIUM 136 LAB K(LOINC) 3.5 - 5.3 mmol/L POTASSIUM 4.3 LAB CHLOR(LOIN 98 - 107 mmol/L C) CHLORIDE 101 LAB BIC(LOINC) 21 - 32 mmol/L BICARBONATE 25 LAB ANGAP(LOIN 10 - 20 mmol/L C) ANION GAP 14 LAB UREA(LOINC 6 - 23 mg/dL ) UREA NITROGEN 17 LAB CREA(LOINC 0.50 - 1.05 mg/dL ) High CREATININE 1.15 LAB GFRFN(LOIN >60 mL/min/1.7 C) 3m2 GFR-NON Abnormal AM. 48 LAB GFRAA(LOIN >60 mL/min/1.7 C) 3m2 GFR- Abnormal AM. 58 Result Comment: CALCULATIONS OF ESTIMATED GFR ARE PERFORMED USING THE MDRD STUDY EQUATION FOR THE IDMS-TRACEABLE CREATININE METHODS. CLIN CHEM 2007;53:766-72 LAB CA(LOINC) 8.6 - 10.6 mg/dL CALCIUM 8.7 LAB PHOS(LOINC) 2.5 - 4.9 mg/dL PHOSPHORUS 4.1 Result Comment: The performance characteristics of phosphorus testing in heparinized plasma have been validated by the individual laboratory site where testing is performed. Testing on heparinized plasma is not approved by the FDA; however, such approval is not necessary. LAB ALB(LOINC) 3.4 - 5.0 g/dL ALBUMIN 3.4 Performed By: #### RENAL #### [facility] [address] [place] [address] GLUCOSE-POCT Collected: 05/26/2018 Status: F Source: [facility]OR[facility] 9:04 AM [facility] REPOSITORY TYPE CODE TESTS RESULT OUT OF RANGE REFERENCE UNITS LAB GLUP(LOINC) 74 - 99 mg/dL 96 GLUCOSE-POCT Performed By: #### GLUPO #### [facility] [address] [place] [address] CLINICAL EVENT Observed: 05/26/2018 Status: UNK Source: GORIN NOTE-TRANSFER ACCEPTANCE 5:41 AM [facility]OSPITALS REPOSITORY NOTE Event: Topic: Transfer Acceptance Note Details: Patient accepted as transfer out from the CICU. Per chart review: 62 y/o female with a h/o HTN, HLD, type II DM, and stroke (no residual deficits), CAD s/p PCI with JAZIEL LCx and LAD proximal to middle third on 05/18/18 presents as a transfer from [facility] for acute decompensated heart failure. She was recently hospitalized 05/10-05/20/18 for CABG evaluation. TTE showed EF 37% and diastolic dysfunction. CXR showed venous congestion, patient was diuresed. LHC showed severe three-vessel disease with 90% stenosis of LAD, 80-90% stenosis of LCx, completely occluded RCA. 05/15 cardiac MRI viability showed LVEF 37%, delayed subendocardial enhancement of base and mid inferior wall involving up to 50% of myocardial thickness in keeping with sequela of infarction in RCA territory with component of viable myocardium. NO other areas of delayed enhancement is identified in LAD or LCx territory. 05/18 had JAZIEL placed in LCx and LAD. Complicated by hypotension due to acute blood loss anemia, requiring 3 units pRBC and received protamine for heparin reversal. Hemostasis achieved in R groin site. Plan for patient to return in 1 month for retrograde RCA HYDRANT SETTER with Dr. Keith. Discharge weigh 64.3kg. Discharge meds: (no ACEi or diuretics because of acute groin bleed and hypotension SBP on discharge 100) lantus 18 units daily buspirone 5mg q8h aspirin 81mg daily clopidogrel 75mg daily carvedilol 3.125mg BID atorvastatin 40mg daily docusate-senna BID, Miralax daily omega 3 Patient states she's been taking her medications faithfully at home. No extra salt in her diet and does not think she's drinking more fluids. She was doing well except for some dyspnea with exertion, for which her had her rest on the couch since discharge. Denies orthopnea or PND at home, using 2 pillows at night which is her norm. The morning of admission she woke up while lying down flat and could not catch her breath, also had some chest pressure. Her son, whom she lives with, drove her to [facility] ED. [facility] ED: afebrile 98F, HR 91, RR 32, BP 149/77> 180/93, 91% placed on BiPap wheezing upper airways, diminished lower castorena bilaterally. CBC: 10.9> 12.7/39<363 RFP: 142/4.6/111/22/11/1.35 lactate 1.3 troponin 1.6 BNP 3512 EKG: sinus tachycardia, HR 102, twi II, III, aVF, no ST changes. unchanged from prior CXR: progressing R basilar alveolar disease, no demonstrated pleural abnormality given aspirin 324mg, duoneb, lasix 40mg IV, nitro paste Placed on BiPap in ED 05/03, 40% FiO2 On transport patient, EMS said she did not tolerate BiPap but satted > 97% on 3L NC [facility]: - patient was satting >95% on 3L NC. with diminished sounds in bilateral bases. CXR shows pulmonary edema and JVP up to angle of mandible so another IV Lasix 40mg given on admission. Patient put out 3.3 L of urine. This morning complaining of some lightheadedness, BP in 110s. Says she gets lightheaded at home when she takes lisinopril which was restarted on admission. Will get orthostatics, stop lisinopril. Change carvedilol to metoprolol tartrate 25mg BID to give blood pressure room. Repeat CXR still shows pulmonary edema, not as deep inspiration as yesterday. Will still need further diuresis but will hold off for now because of lightheadedness. Reassess later this afternoon. In speaking with the patient she corroborates the above information. She endorses that she feels like the world is spinning all the time and that it has been going on for several weeks. Symptoms began gradually and have now become much more persistent, she has an occasional associated bi-temporal headache. She feels that her Lisinopril makes the sensation worse and that laying down and closing her eyes makes it better. She has not had any falls at home, but has needed assistance with walking. She also endorses mild shortness of breath, but feels it is much better than when she presented to [facility]. She denies fever/chills, chest pain, abdominal pain, swelling, weight gain; endorses some nausea and frequent belching. CURRENT MEDICATIONS: Continuous Medications No continuous medications are active Scheduled Medications 1. Aspirin Chewable: 81 mg Oral Daily 2. Atorvastatin: 40 mg Oral Daily 3. Clopidogrel: 75 mg Oral Daily 4. Enoxaparin SubCutaneous: 40 mg SubCutaneous Every 24 Hours 5. Insulin Glargine (Lantus) Injectable: 10 unit(s) SubCutaneous Every 24 Hours 6. Insulin Lispro Mild Corrective Scale: unit(s) SubCutaneous 3 Times a Day Before Meals 7. Metoprolol Succinate Extended Release: 25 mg Oral Daily PRN Medications 1. Dextrose 50% in Water Injectable: 25 gram(s) IntraVenous Push Every 15 Minutes 2. Glucagon Injectable: 1 mg IntraMuscular Every 15 Minutes 3. traMADol: 25 mg Oral Every 6 Hours PHYSICAL EXAM: Gen: seated in bed eating dinner in NAD; A&Ox3; cooperative HEENT: edentulous; no lesions apparent CV: distant heart sounds; nl s1,s2; no appreciable murmurs Pulm: mild bibasilar crackles; no wheezing Abd: epigastric tenderness to deep palpation; frequent belching Ext: b/l trace non-pitting edema; s/p left 5th toe amputation Neuro: b/l horizontal nystagmus Psych: appropriate mood and affect Ms. Green is a 62 y/o female w/ PMH significant for CAD w/ multivessel disease s/p PCI to LAD and LCx (05/18/18); HTN; HLD; DMII; PVD; and CVA. She initially presented to OSH with shortness of breath requiring BiPAP and was found to be in ADHF. She was transferred to [facility] C[facility] on 05/24 where she was diuresed and had improvement in her symptoms. She was deemed stable for transfer to the floor on 05/25. # HFrEF/ HLD/ HTN - presented to OSH with ADHF on 05/24 in setting of no home diuretics; has improved symptomatically with IV diuresis [diuresis held 05/25 due to dizziness] - unlikely dizziness 2/2 fluid status, will continue with gentle diuresis with IV Lasix 20mg daily (goal 500cc-1L negative) - home ASA/Plavix/Atorvastatin - Coreg converted to Metoprolol succinate 25mg - Lisinopril held 2/2 dizziness (consider Lasix/[place] if unable to tolerate ACEi) # Vertigo - etiology unclear at this time; however, given time course and duration of symptoms will consider medication-induced vs. recurrent vestibulopathy vs. vestibular neuritis; not consistent w/ BPPV or migraine - consider Neurology consult for further evaluation - fall precautions while inpatient # anemia - blood loss anemia, now stable - continue to monitor # DMII - home regimen: Glargine 18U - Glargine 10U; SSI while inpatient - hypoglycemia protocol F: 1.5L restriction E: replete prn N: diabetic, low Na DVT: SCDs, Lovenox GI: none indicated Full Code (Mandy): [phone] daughter (Priscila): [phone] Electronic Signatures: Jacob Kirby ( (Resident)) (Signed 26-May-2018 05:42) Authored: Event Last Updated: 26-May-2018 05:42 by Jacob Kirby ( (Resident)) GLUCOSE-POCT Collected: 05/25/2018 Status: F Source: [facility] 7:40 PM [facility]IT[facility] TYPE CODE TESTS RESULT OUT OF RANGE REFERENCE UNITS LAB GLUP(LOINC) 74 - 99 mg/dL High 107 GLUCOSE-POCT Performed By: #### GLUPO #### [facility] [address] [place] [address] GLUCOSE-POCT Collected: 05/25/2018 Status: F Source: [facility] 3:39 PM [facility] REPOSITORY TYPE CODE TESTS RESULT OUT OF RANGE REFERENCE UNITS LAB GLUP(LOINC) 74 - 99 mg/dL High 113 GLUCOSE-POCT Performed By: #### GLUPO #### [facility] [address] [place] [address] DISCHARGE PLANNING Observed: 05/25/2018 Status: UNK Source: UNIVERSITY NOTE 12:09 PM [facility]OS[facility]ITALS REPOSITORY Discharge Needs Assessment: Discharge Planning Assessment [id number] Discharge Planning Assessment Completed byFawad Lance RN Wall Taper Helper [phone] Primary Care PhysicianIvy Jimenez MD [phone] Adult Information: Primary Support Person During HospitalizationSpouse [phone] Lives Withspouse; children Financial Concernsnone Discharge Planning: Discharge Plannin05/25/18, 1130: Wall Taper Helper Note: Met with patient at bedside regarding discharge planning and home going needs. Per patient, they live at home with Spouse and children with no stairs. Patient states their primary support person during hospitalization is her spouse Mandy. Patient states they are independent with ADL's and use a cane as needed for ambulation. Patient denies a history of falls. Denies current home care, or the need for home care. Patient states they feel safe at home. Denies transportation/social work/financial needs. Denies any spiritual/cultural/religous considerations regarding discharge planning. Patient denies the use supplemental home O2. Patient states they are able to afford/obtain medications. [facility] Patient's PCP Dr. Ivy Jimenez. Verified patient's demographics and contact information. Anticipate patient to be discharged home s/p hospitalization. Patient states family will provide transportation home at time of discharge. Pt is not medically ready to discharge. Will continue to follow and will update accordingly. Fawad Lance RN Wall Taper Helper [phone] 05-28-18 1431 Wall Taper Helper Note: Patient discussed during interdisciplinary rounds. Discharge monday vs . Montserrat Saba RN Wall Taper Helper [phone] 05/30/18 1047 Patient Regional Liaison Note: [place] of choice offered to patient, signed copy placed in chart. pcn spoke with patient regarding HC agency choices. pcn sent referrals to the followin) [facility] , 3) [facility] , 4) [facility] . Patients first choice of [facility] services do not take caresource insurance. patient aware. pcn awaiting response from other referrals. tcc aware. PCN will continue to monitor and update accordingly. Lucina Carreon RN, PCN [phone] 05-30-18 1510 Wall Taper Helper Note: Patient discussed during interdisciplinary rounds. Plan for discharge tomorrow. Montserrat Saba RN Wall Taper Helper [phone] 05/30/18 1626 Patient Regional Liaison Note: [facility] accepted. will need HCO/F2F prior to discharge. Rx for FWW sent to [place] for processing. tcc aware. PCN will continue to monitor and update accordingly. Lucina Carreon RN, JAREDN [phone] 05/31/18 Patient discharge information covered with patient and son, all questions answered. Patient IV removed with tip in tact, pt discharged home with son. Masoud Ayoub RN 05/31/18 [id number] Patient Regional Liaison Note: pcn attached HCO and F2F and updated [facility] that patient discharged. Lucina Carreon RN, PCN [phone] Electronic Signatures: Masoud Ayoub (RN) (Signed 31-May-2018 15:34) Authored: Discharge Planning Note Lucina Carreon (RN) (Signed 31-May-2018 16:47) Authored: Discharge Planning Note Montserrat Saba (CLIN COOR) (Signed 30-May-2018 15:10) Authored: Discharge Planning Note Fawad Lance (INES) (Signed 25-May-2018 12:13) Authored: Discharge Planning Note Last Updated: 31-May-2018 16:47 by Lucina Carreon (RN) TRANSFER/OFF SERVICE Observed: 05/25/2018 Status: UNK Source: UNIVERSITY NOTE 12:00 PM HOSPITALS REPOSITORY Subjective: Hospital Course: Hospital Course: 62 y/o female with a h/o HTN, HLD, type II DM, and stroke (no residual deficits), CAD s/p PCI with JAZIEL LCx and LAD proximal to middle third on 05/18/18 presents as a transfer from [facility] for acute decompensated heart failure. She was recently hospitalized 05/10-05/20/18 for CABG evaluation. TTE showed EF 37% and diastolic dysfunction. CXR showed venous congestion, patient was diuresed. LHC showed severe three-vessel disease with 90% stenosis of LAD, 80-90% stenosis of LCx, completely occluded RCA. 05/15 cardiac MRI viability showed LVEF 37%, delayed subendocardial enhancement of base and mid inferior wall involving up to 50% of myocardial thickness in keeping with sequela of infarction in RCA territory with component of viable myocardium. NO other areas of delayed enhancement is identified in LAD or LCx territory. 05/18 had JAZIEL placed in LCx and LAD. Complicated by hypotension due to acute blood loss anemia, requiring 3 units pRBC and received protamine for heparin reversal. Hemostasis achieved in R groin site. Plan for patient to return in 1 month for retrograde RCA HYDRANT SETTER with Dr. Keith. Discharge weigh 64.3kg. Discharge meds: (no ACEi or diuretics because of acute groin bleed and hypotension SBP on discharge 100) lantus 18 units daily buspirone 5mg q8h aspirin 81mg daily clopidogrel 75mg daily carvedilol 3.125mg BID atorvastatin 40mg daily docusate-senna BID, Miralax daily omega 3 Patient states she's been taking her medications faithfully at home. No extra salt in her diet and does not think she's drinking more fluids. She was doing well except for some dyspnea with exertion, for which her had her rest on the couch since discharge. Denies orthopnea or PND at home, using 2 pillows at night which is her norm. The morning of admission she woke up while lying down flat and could not catch her breath, also had some chest pressure. Her son, whom she lives with, drove her to [facility] ED. [facility] ED: afebrile 98F, HR 91, RR 32, BP 149/77> 180/93, 91% placed on BiPap wheezing upper airways, diminished lower castorena bilaterally. CBC: 10.9> 12.7/39<363 RFP: 142/4.6/111/22/11/1.35 lactate 1.3 troponin 1.6 BNP 3512 EKG: sinus tachycardia, HR 102, twi II, III, aVF, no ST changes. unchanged from prior CXR: progressing R basilar alveolar disease, no demonstrated pleural abnormality given aspirin 324mg, duoneb, lasix 40mg IV, nitro paste Placed on BiPap in ED 05/03, 40% FiO2 On transport patient, EMS said she did not tolerate BiPap but satted > 97% on 3L NC in CICU: - patient was satting >95% on 3L NC. with diminished sounds in bilateral bases. CXR shows pulmonary edema and JVP up to angle of mandible so another IV Lasix 40mg given on admission. Patient put out 3.3 L of urine. This morning complaining of some lightheadedness, BP in 110s. Says she gets lightheaded at home when she takes lisinopril which was restarted on admission. Will get orthostatics, stop lisinopril. Change carvedilol to metoprolol tartrate 25mg BID to give blood pressure room. Repeat CXR still shows pulmonary edema, not as deep inspiration as yesterday. Will still need further diuresis but will hold off for now because of lightheadedness. Reassess later this afternoon. Objective Data: Objective Information: Objective Information: T PRBPSpO2 [id number]/3497% Date/Time05/25 12: 11: 11: 11: 11:00 Range(36.3C - 37C ) (65 - 98 ) (13 - 37 ) (82 - 136 )/ (34 - 89 ) (93% - 100% ) As of 25-May-2018 10:00:00, patient is on 2 L/min of oxygen via nasal cannula. Highest temp of 37 C was recorded at 05/24 15:00 ---- Intake and Output ----- Mn/Dy/Year TimeIntakeOutputNet May 25, 2018 6:00 [id number] May 24, 2018 10:00 [id number] May 24, 2018 2:00 [id number] The Intake and Output Totals for the last 24 hours are: IntakeOutputNet [id number] Physical Exam: Constitutional: appears older than stated age, NAD Eyes: anicteric, EOMI, PERRLA ENMT: moist mucous membranes Head/Neck: JVD to mid neck Respiratory/Thorax: on 2L NC, unlabored, speaking in full sentences, no wheezing, diminished sounds in bases, fine crackles in bases. Cardiovascular: tachycardic, regular rhythm, normal S1S2, no m/r/g Gastrointestinal: +BS, soft, ND, NT Genitourinary: no suprapubic tenderness, no Marino Extremities: no LE edema Neurological: AOx3, moving all extremities Skin: old bruises on forearms, no rashes Medications: Medications: Continuous Medications No continuous medications are active Scheduled Medications 1. Aspirin Chewable: 81 mg Oral Daily 2. Atorvastatin: 40 mg Oral Daily 3. Clopidogrel: 75 mg Oral Daily 4. Enoxaparin SubCutaneous: 40 mg SubCutaneous Every 24 Hours 5. Insulin Glargine (Lantus) Injectable: 10 unit(s) SubCutaneous Every 24 Hours 6. Insulin Lispro Mild Corrective Scale: unit(s) SubCutaneous 3 Times a Day Before Meals 7. Metoprolol Succinate Extended Release: 25 mg Oral Daily PRN Medications 1. Dextrose 50% in Water Injectable: 25 gram(s) IntraVenous Push Every 15 Minutes 2. Glucagon Injectable: 1 mg IntraMuscular Every 15 Minutes 3. traMADol: 25 mg Oral Every 6 Hours Recent Lab Results: Results: I have reviewed these laboratory results: Complete Blood Count Trending View [id number] 03:06:00 24-May-2018 11:34:00 White Blood Cell Count7.3 9.3 Nucleated Erythrocyte Count0.0 0.0 Red Blood Cell Count3.30 L 4.10 HGB9.6 L 11.9 L HCT28.1 L 35.4 L MCV85 86 MCHC34.2 33.6 XVR262 346 RDW-CV14.6 H 15.1 H Renal Function Panel Trending View [id number] 03:06:00 24-May-2018 11:34:00 Glucose, Serum81 114 H NA138 141 K4.2 4.4 CL104 110 H Bicarbonate, Serum25 21 Anion Gap, Serum13 14 BUN15 11 CREAT1.26 H 1.19 H GFR-Non Bfucarkg01 A 46 A GFR- Rmtpvrto66 A 56 A Calcium, Serum8.1 L 9.0 Phosphorus, Serum4.9 4.1 ALB2.8 L 3.4 Magnesium, Serum Trending View [id number] 03:06:00 24-May-2018 11:34:00 Magnesium, Serum1.93 2.09 Troponin I, Serum Trending View [id number] 17:25:00 24-May-2018 11:34:00 Troponin I, Serum1.62 H 1.82 H Coagulation Screen 24-May-2018 11:34:00 ResultValue Prothrombin Time, Plasma 11.1 International Normalized Ratio, Plasma 1.0 Activated Partial Thromboplastin Time 33 Assessment and Plan: Impression and Plan 1-5: Assessment: Ms. Green is a 62 y/o WF with HTN, HLD, Type 2 DM - on insulin, PVD with prior RLE arterial procedure, and CVA 8 years ago (no residual deficits) s/p Rt , CAD with multivessel disease s/p PCI to LAD and LCx (05/18/18), presented as transfer from [facility] for acute shortness of breath concerning for acute decompensated heart failure. No leukocytosis or CXR infiltrates suggestive for pneumonia. Appears to have had progressive dyspnea with exertion and presented day of admission with acute shortness of breath with orthopnea, requiring BiPap briefly in ED. Improved with diuresis. CARDIOVASCULAR: #HTN/ HLD/ EF 37%/ presenting with acute decompensated heart failure - no EKG changes, trop in ED troponin 1.6, BNP 3512 - CXR on admission with pulmonary edema - repeat CXR today - continue aspirin, plavix, atorvastatin 40mg daily - switch coreg 3.125mg BID to metoprolol tartrate 25mg BID for blood pressure room - stop lisinopril 5mg daily; says she wasn't taking at home because always made her dizzy - hold on diuretics this morning because of dizziness, obtain orthostatics. Reassess this afternoon - patient may be a good candidate for lasix and spironlactone because was unable to tolerate ACEi due to dizziness #CAD multi vessel disease s/p 2 overlapping JAZIEL in LCx & 2 overlapping JAZIEL in LAD - LHC at the OSH: 90% LAD, 80-90% Circ, 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 No other areas of delayed enhancement is identified in the LAD or LCx territory. - ASA/Plavix - troponin: 1.6 >1.8> 1.62 # PAD, maintaining perfusion at this time - s/p Left CEA in setting of CVA - vascular surgery rec no surgical intervention - carotid duplex: R: < 50% stenosis, L >50% stenosis - ABIs: R ratio 0.66, 0.70, L ratio 0.59 - brachial pressure 124mmHg on right and 103mmHg on left - CTA head and neck: Severe stenosis at the origin of the left internal carotid artery. Moderate narrowing at the proximal right common carotid artery - Vasc f/u in one month with Dr. Jimenez at [facility] #acute decompensated heart failure - previously on BiPap in ED, now on 3L NC, satting well. wean as tolerated - repeat CXR: still overloaded - may need further diuretics this afternoon if no longer dizzy GI: no active issues HEME: #anemia s/p acute bleed after PCI, no current bleeding - Hgb dropped today but all lines dropped. No active bleeding. Monitor ENDO: #Type II DM - Home dose insuline glargine 18units, 10 units while inpatient with SSI - 05/11 Hgb A1C 6.6% F: not indicated E: Replete PRN Diet: diabetic diet, low Na Access: PIV in LUE GIPPX: none DVTPPX: SCDs, SC lovenox Code status: FULL (Mandy): [phone] daughter (Priscila): [phone] Indu Kwong (PGY2) [id number] Signature: Signature: Signature: Pager # Signature/Cosignature/Attestation: Provider/Team Contact Info-Pager [phone] Attending AttestationI saw and evaluated the patient. I personally obtained the rico and critical portions of the history and physical exam or was physically present for rico and critical portions performed by the resident/fellow. I reviewed the resident/fellows documentation and discussed the patient with the resident/fellow. I agree with the resident/fellows medical decision making as documented in the resident/fellows note with the exception/addition of the following: I personally evaluated the patient (as noted in the above attestation) on 25-May-2018 Comments/ Additional Findings Please refer to H&P for details. Electronic Signatures: Frantz Iyer) (Signed 25-May-2018 18:03) Authored: Signature/Cosignature/Attestation Co-Signer: Subjective, Objective Data, Assessment and Plan, Signature, Signature/Cosignature/Attestation Indu Kwong (Resident)) (Signed 25-May-2018 12:25) Authored: Subjective, Objective Data, Assessment and Plan, Signature, Signature/Cosignature/Attestation Last Updated: 25-May-2018 18:03 by Frantz Iyer) GLUCOSE-POCT Collected: 05/25/2018 Status: F Source: [facility] 11:31 AM HOSPITALS REPOSITORY TYPE CODE TESTS RESULT OUT OF RANGE REFERENCE UNITS LAB GLUP(LOINC) 74 - 99 mg/dL High 163 GLUCOSE-POCT Performed By: #### GLUPO #### [facility] [id number] [place] [id number] TH CHEST 1 VIEW Observed: 05/25/2018 Status: F Source: [facility] 10:46 AM [facility] REPOSITORY Patient Name: DAVINA GREEN STUDY: TH CHEST 1 VIEW; 05/25/2018 10:46 am INDICATION: Signs/Symptoms: sob. COMPARISON: Chest radiograph from 05/24/2018 ACCESSION NUMBER(S): [id number] ORDERING CLINICIAN: FRANTZ IYER FINDINGS: The cardiomediastinal silhouette is persistently enlarged, but now with increased partial obscuration of right heart border. There has been interval worsening of diffuse bilateral lung haziness, right more than left, which may be secondary to layering pleural effusions are increasing pulmonary edema. Interval increase in bibasilar retrocardiac opacity, which may represent atelectasis. No pneumothorax. No acute osseous abnormality. IMPRESSION: 1. Interval worsening of bibasilar lung aeration, which may be secondary to increasing edema and/or layering pleural effusions. 2. Bibasilar atelectasis also increased from prior. 3. Stable enlargement of cardiomediastinal silhouette. Electronically signed by: FEDERICO GONZÁLES MD GLUCOSE-POCT Collected: 05/25/2018 Status: F Source: [facility] 7:27 AM HOSPITALS REPOSITORY TYPE CODE TESTS RESULT OUT OF RANGE REFERENCE UNITS LAB GLUP(LOINC) 74 - 99 mg/dL 95 GLUCOSE-POCT Performed By: #### GLUPO #### [facility] [address] [place] [address] CBC Collected: 05/25/2018 Status: F Source: [facility] 3:06 AM HOSPITALS REPOSITORY TYPE CODE TESTS RESULT OUT OF REFERENCE UNITS RANGE LAB WBCR(LOINC 4.4 - 11.3 x10E9/L ) WBC 7.3 LAB NRBC(LOINC 0.0-0.0 /100 WBC ) NUCLEATED RBC 0.0 LAB RBCCT(LOIN 4.00 - 5.20 x10E12/L C) Low RBC 3.30 LAB HGB(LOINC) 12.0 - 16.0 g/dL Low HGB 9.6 LAB HCT(LOINC) 36.0 - 46.0 % Low HCT 28.1 LAB MCV(LOINC) 80 - 100 fL MCV 85 LAB MCHC2(LOIN 32.0 - 36.0 g/dL C) MCHC 34.2 LAB PLTCT(LOIN 150 - 450 x10E9/L C) PLT 274 LAB RDWCV(LOIN 11.5 - 14.5 % C) High RDW-CV 14.6 Performed By: #### CBC #### [facility] [address] [place] [address] MAGNESIUM Collected: 05/25/2018 Status: F Source: [facility] 3:06 AM HOSPITALS REPOSITORY TYPE CODE TESTS RESULT OUT OF REFERENCE UNITS RANGE LAB MG(LOINC) 1.60 - 2.40 mg/dL MAGNESIUM 1.93 Performed By: #### MG #### [facility] [address] [place] [address] RENAL FUNCTION PANEL Collected: 05/25/2018 Status: F Source: [facility] 3:06 AM [facility] REPOSITORY TYPE CODE TESTS RESULT OUT OF RANGE REFERENCE UNITS LAB GLU(LOINC) 74 - 99 mg/dL GLUCOSE 81 LAB SOD(LOINC) 136 - 145 mmol/L SODIUM 138 LAB K(LOINC) 3.5 - 5.3 mmol/L POTASSIUM 4.2 LAB CHLOR(LOIN 98 - 107 mmol/L C) CHLORIDE 104 LAB BIC(LOINC) 21 - 32 mmol/L BICARBONATE 25 LAB ANGAP(LOIN 10 - 20 mmol/L C) ANION GAP 13 LAB UREA(LOINC 6 - 23 mg/dL ) UREA NITROGEN 15 LAB CREA(LOINC 0.50 - 1.05 mg/dL ) High CREATININE 1.26 LAB GFRFN(LOIN >60 mL/min/1.7 C) 3m2 GFR-NON Abnormal AM. 43 LAB GFRAA(LOIN >60 mL/min/1.7 C) 3m2 GFR- Abnormal AM. 52 Result Comment: CALCULATIONS OF ESTIMATED GFR ARE PERFORMED USING THE MDRD STUDY EQUATION FOR THE IDMS-TRACEABLE CREATININE METHODS. CLIN CHEM 2007;53:766-72 LAB CA(LOINC) 8.6 - 10.6 mg/dL CALCIUM Low 8.1 LAB PHOS(LOINC) 2.5 - 4.9 mg/dL PHOSPHORUS 4.9 Result Comment: The performance characteristics of phosphorus testing in heparinized plasma have been validated by the individual laboratory site where testing is performed. Testing on heparinized plasma is not approved by the FDA; however, such approval is not necessary. LAB ALB(LOINC) 3.4 - 5.0 g/dL Low ALBUMIN 2.8 Performed By: #### RENAL #### [facility] [address] [place] [address] GLUCOSE-POCT Collected: 05/24/2018 Status: F Source: [facility] 7:57 PM HOSPITALS REPOSITORY TYPE CODE TESTS RESULT OUT OF RANGE REFERENCE UNITS LAB GLUP(LOINC) 74 - 99 mg/dL High 105 GLUCOSE-POCT Performed By: #### GLUPO #### [facility] [address] [place] [address] TROPONIN I Collected: 05/24/2018 Status: F Source: [facility] 5:25 PM HOSPITALS REPOSITORY TYPE CODE TESTS RESULT OUT OF REFERENCE UNITS RANGE LAB TROP2(LOINC 0.00 - 0.03 ng/mL ) High TROPONIN I 1.62 Result Comment: LESS THAN 0.04 NG/ML: NEGATIVE REPEAT TESTING IN FOUR TO SIX HOURS IF CLINICALLY INDICATED. 0.04 - 0.5 NG/ML: CONSISTENT WITH POSSIBLE CARDIAC DAMAGE AND POSSIBLE INCREASED CLINICAL RISK. SERIAL MEASUREMENTS MAY HELP ASSESS EXTENT OF MYOCARDIAL DAMAGE. >0.5 NG/ML: CONSISTENT WITH CARDIAC DAMAGE, INCREASED CLINICAL RISK AND MYOCARDIAL INFARCTION. SERIAL MEASUREMENTS MAY HELP ASSESS EXTENT OF MYOCARDIAL DAMAGE. . Note: Troponin I testing is performed using different testing methodology at [facility] than at other [facility]. Direct result comparisons should only be made within the same method. . Patients receiving more than 5 mg/day of biotin may have interference in test results. A sample should be taken no sooner than eight hours after previous dose. Contact [phone] for additional information. This is a critical result. Per Laboratory policy, critical results for this test only qualify to the call list once per 24 hours. Performed By: #### TROP2 #### [facility] [address] [place] [address] GLUCOSE-POCT Collected: 05/24/2018 Status: F Source: [facility] 3:52 PM HOSPITALS REPOSITORY TYPE CODE TESTS RESULT OUT OF RANGE REFERENCE UNITS LAB GLUP(LOINC) 74 - 99 mg/dL High 129 GLUCOSE-POCT Performed By: #### GLUPO #### [facility] [address] [place] [address] GLUCOSE-POCT Collected: 05/24/2018 Status: F Source: [facility] 12:34 PM HOSPITALS REPOSITORY TYPE CODE TESTS RESULT OUT OF RANGE REFERENCE UNITS LAB GLUP(LOINC) 74 - 99 mg/dL High 104 GLUCOSE-POCT Performed By: #### GLUPO #### [facility] [address] [place] [address] PATIENT PROFILE - Observed: 05/24/2018 Status: UNK Source: [facility] ADULT V2 12:25 PM HOSPITALS REPOSITORY Profile: Initial Info: How to be AddressedJOY Spoken Language PreferredEnglish (1) Are you currently using the Personal Electronic Health Record or Yieldexno Are you interested in learning more about PubMaticPrimary Data for the management of your healthnot at this time Stated Reason for AdmissionSOB Arrived Fromemergency department Patient Belongingsnone Medications Brought to Hospitalno General Health: Weight in kg63.5 kilogram(s) Weight in rbm333 pound(s) Height in feet5 feet Height in inches0 inch(es) Height in cm152.4 centimeter(s) BMI (kg/m2)27.34 square meter Weight Methodstated Scale Typebed Height Methodstated [facility] Based Care: How would you like to participate in your careUTA What is the number one concern for you during this hospitalizationUTA What is the most important thing we can do to support you during this hospitalizationUTA Is there anything we need to know to best care for youUTA Substance: Current or Former Substance Use never: e-Cigarette/Vaping, Alcohol(1), Street Drugs(1) YES: Cigarette/Tobacco(1) Tobacco Cessation Education (provide if tobacco use within the last 12 mos)yes Health Mgmt: Symptoms/Conditions Managed at Homecardiovascular Cardiovascular Managementmanaged Relationship/Environ: Primary Source of Support/Comfortspouse Lives Withspouse; adult child(kristin) Living Arrangementsapartment Resource/Environmental Concernsnone [facility]ticipated [facility] Anticipated at Transitionnone Significant IndicatorsComplete Information Review: Allergies, Home Meds and Significant Events have been Reviewed and Verified with Patient/Familyyes ALLERGY, INTOLERANCE, ADVERSE EVENT: Allergies: penicillin: Drug, Hives/Urticaria, Active Electronic Signatures: Jovani Hernandez (RN) (Signed 24-May-2018 12:28) Authored: Profile, Additional Information Last Updated: 24-May-2018 12:28 by Jovani Hernandez (RN) References: 1. Data Referenced From Patient Profile - Adult v2 05/10/2018 9:13 PM TH CHEST 1 VIEW Observed: 05/24/2018 Status: F Source: [facility] 12:20 PM [facility] REPOSITORY Patient Name: DAVINA GREEN STUDY: CHEST 1 VIEW; 05/24/2018 12:20 pm INDICATION: Signs/Symptoms: desaturation. COMPARISON: Chest radiograph from 05/11/2018 ACCESSION NUMBER(S): [id number] ORDERING CLINICIAN: INDU KWONG FINDINGS: Cardiomediastinal silhouette is persistently enlarged unchanged from prior. Interval worsening of right basilar lung aeration, which may be secondary to increasing effusion and/or atelectasis. Similar mild left retrocardiac atelectasis. Mild perihilar congestion interstitial pulmonary edema, new since prior. No pneumothorax. No acute osseous abnormality. IMPRESSION: 1. New mild perihilar congestion interstitial pulmonary edema with right basilar pleural effusion. Electronically signed by: FEDERICO GONZÁLES MD HISTORY AND PHYSICAL Observed: 05/24/2018 Status: COMPLETED Source: [facility] - CRITICAL CARE 11:45 AM HOSPITALS REPOSITORY Service: Critical Care Service: ServiceCICU History of Present Illness: Admission Reason: acute decompensated heart failure HPI: 62 y/o female with a h/o HTN, HLD, type II DM, and stroke (no residual deficits), CAD s/p PCI with JAZIEL LCx and LAD proximal to middle third on 05/18/18 presents as a transfer from [facility] for acute decompensated heart failure. She was recently hospitalized 05/10-05/20/18 for CABG evaluation. TTE showed EF 37% and diastolic dysfunction. CXR showed venous congestion, patient was diuresed. LHC showed severe three-vessel disease with 90% stenosis of LAD, 80-90% stenosis of LCx, completely occluded RCA. 05/15 cardiac MRI viability showed LVEF 37%, delayed subendocardial enhancement of base and mid inferior wall involving up to 50% of myocardial thickness in keeping with sequela of infarction in RCA territory with component of viable myocardium. NO other areas of delayed enhancement is identified in LAD or LCx territory. 05/18 had JAZIEL placed in LCx and LAD. Complicated by hypotension due to acute blood loss anemia, requiring 3 units pRBC and received protamine for heparin reversal. Hemostasis achieved in R groin site. Plan for patient to return in 1 month for retrograde RCA HYDRANT SETTER with Dr. Keith. Discharge weigh 64.3kg. Patient states she's been taking her medications faithfully at home. No extra salt in her diet and does not think she's drinking more fluids. She was doing well except for some dyspnea with exertion, for which her had her rest on the couch since discharge. Denies orthopnea or PND at home, using 2 pillows at night which is her norm. The morning of admission she woke up while lying down flat and could not catch her breath, also had some chest pressure. Her son, whom she lives with, drove her to [facility] ED. [facility] ED: afebrile 98F, HR 91, RR 32, BP 149/77> 180/93, 91% placed on BiPap, then 92% on 5L NC wheezing upper airways, diminished lower castorena bilaterally. CBC: 10.9> 12.7/39<363 RFP: 142/4.6/111/22/11/1.35 lactate 1.3 troponin 1.6 BNP 3512 EKG: sinus tachycardia, HR 102, twi II, III, aVF, no ST changes. unchanged from prior CXR: progressing R basilar alveolar disease, no demonstrated pleural abnormality given aspirin 324mg, duoneb, lasix 40mg IV, nitro paste Placed on BiPap in ED 05/03, 40% FiO2 On transport patient, EMS said she did not tolerate BiPap but satted > 97% on 3L NC She denies any chest pain, says breathing is much improved compared to when in the ED. Urinated a lot while in [facility]. Has been having 2 loose BMs a day, has been taking docusate- senna and Miralax for previous constipation. 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 Father of SD in mid-50s. Allergies: Penicillin-Rash Meds: lantus 18 units daily buspirone 5mg q8h aspirin 81mg daily clopidogrel 75mg daily carvedilol 3.125mg BID atorvastatin 40mg daily docusate-senna BID, Miralax daily omega 3 A 12-point ROS was obtained and is negative except as per HPI above. Comorbidities: Comorbid Conditionscongestive heart failure Type of Congestive Heart Failuresystolic Acuity of CHFacute on chronic Allergies: penicillin: Hives/Urticaria Medications Prior to Admission: Outpatient Meds have not been reviewed. Objective: Objective Information: Objective Information T PRBPSpO2 [id number]% Date/Time05/24 12: 12: 11: 12:00 Range (87 - 92 ) (19 - 20 ) (123 - 123 )/ (79 - 79 ) (99% - 100% ) Physical Exam: Neurological: AOx3, moving all extremities Cardiovascular: tachycardic, regular rhythm, normal S1S2, no m/r/g Respiratory/Thorax: on 3L NC, unlabored, speaking in full sentences, no wheezing/ crackles. Diminished sounds in bases Genitourinary: no suprapubic tenderness, no Marino Gastrointestinal: +BS, soft, ND, NT Skin: old bruises on forearms, no rashes Constitutional: appears older than stated age, NAD Eyes: anicteric, EOMI, PERRLA ENMT: moist mucous membranes Head/Neck: JVD to angle of mandible Extremities: no LE edema Medications: Medications: Continuous Medications No continuous medications are active Scheduled Medications 1. Aspirin Chewable: 81 mg Oral Daily 2. Atorvastatin: 40 mg Oral Daily 3. Carvedilol: 3.125 mg Oral 2 Times a Day 4. Clopidogrel: 75 mg Oral Daily 5. Enoxaparin SubCutaneous: 40 mg SubCutaneous Every 24 Hours 6. Insulin Glargine (Lantus) Injectable: 10 unit(s) SubCutaneous Every 24 Hours 7. Insulin Lispro Mild Corrective Scale: unit(s) SubCutaneous 3 Times a Day Before Meals PRN Medications 1. Dextrose 50% in Water Injectable: 25 gram(s) IntraVenous Push Every 15 Minutes 2. Glucagon Injectable: 1 mg IntraMuscular Every 15 Minutes Recent Lab Results: Results: Assessment and Plan: Neurology: Diagnosis: Ms. Green is a 62 y/o WF with HTN, HLD, Type 2 DM - on insulin, PVD with prior RLE arterial procedure, and CVA 8 years ago (no residual deficits) s/p Rt , CAD with multivessel disease s/p PCI to LAD and LCx (05/18/18), presented as transfer from [facility] ED for acute shortness of breath concerning for acute decompensated heart failure. No leukocytosis or CXR infiltrates suggestive for pneumonia. Appears to have had progressive dyspnea with exertion and presented day of admission with acute shortness of breath with orthopnea, requiring BiPap briefly in ED. Improved with diuresis. CARDIOVASCULAR: #HTN/ HLD/ EF 37%/ presenting with acute decompensated heart failure - no EKG changes, trop in ED troponin 1.6, BNP 3512 - repeat troponin, repeat BNP - repeat CXR - continue aspirin, plavix, atorvastatin 40mg daily - continue coreg 3.125mg BID - start lisinopril 5mg daily, uptitrate as tolerated - s/p IV Lasix 40mg in ED - additional IV Lasix 40mg (x1) now because CXR on my read still look fluid overloaded - monitor urine output, may need further diuresis tonight - likely need to be sent home on diuretic #CAD multi vessel disease s/p 2 overlapping JAZIEL in LCx & 2 overlapping JAZIEL in LAD - LHC at the OSH: 90% LAD, 80-90% Circ, 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 No other areas of delayed enhancement is identified in the LAD or LCx territory. - ASA/Plavix # PAD, maintaining perfusion at this time - s/p Left CEA in setting of CVA - vascular surgery rec no surgical intervention - carotid duplex: R: < 50% stenosis, L >50% stenosis - ABIs: R ratio 0.66, 0.70, L ratio 0.59 - brachial pressure 124mmHg on right and 103mmHg on left - CTA head and neck: Severe stenosis at the origin of the left internal carotid artery. Moderate narrowing at the proximal right common carotid artery - Vasc f/u in one month with Dr. Jimenez at [facility] #acute decompensated heart failure - previously on BiPap in ED, now on 3L NC, satting well. wean as tolerated - repeat CXR: on my read still appears fluid overloaded - additional IV Lasix 40mg (x1) now because CXR on my read still look fluid overloaded GI: #constipation, no BM for 5 days -doc-senna, miralax -Miralax HEME: #anemia s/p acute bleed after PCI, no current bleeding - anemia stable ENDO: #Type II DM - Home dose insuline glargine 18units, 10 units while inpatient with SSI - / Hgb A1C 6.6% F: not indicated E: Replete PRN Diet: diabetic diet, low Na Access: PIV in LUE GIPPX: none DVTPPX: SCDs, SC lovenox Code status: FULL (Mandy): [phone] daughter (Priscila): [phone] Indu Kruegeru (PGY2) [id number] Code Status: Code StatusFull Code Signatures/Attestation/Certification: Provider/Team Contact Info-Pager [phone] Attending AttestationI saw and evaluated the patient. I personally obtained the rico and critical portions of the history and physical exam or was physically present for rico and critical portions performed by the resident/fellow. I reviewed the resident/fellows documentation and discussed the patient with the resident/fellow. I agree with the resident/fellows medical decision making as documented in the resident/fellows note with the exception/addition of the following: I personally evaluated the patient (as noted in the above attestation) on 25-May-2018 Comments/ Additional Findings Pt s/p recent 2 vessel PCI for ICM; was hypotensive on discharge following PCI c/b bleeding around sheath, which limited HF medications/diuresis. Presents now with unfortunately fluid overload. Diuresing. Intolerant of ALEJANDRA with lightheadedness. Attending Provider Inpatient Certification StatementI certify this patients need for inpatient care based on the above documentation including; the order to admit as inpatient, the anticipated length of stay, diagnosis, problem list and plan of care, and discharge plan. Electronic Signatures: Frantz Iyer) (Signed 25-May-2018 18:09) Authored: Signatures/Attestation/Certification Co-Signer: Service, History of Present Illness, Comorbidities, Allergies, Medications Prior to Admission, Objective, Assessment and Plan, Signatures/Attestation/Certification Indu Kwong (Resident)) (Signed 24-May-2018 15:01) Authored: Service, History of Present Illness, Comorbidities, Allergies, Medications Prior to Admission, Objective, Assessment and Plan, Signatures/Attestation/Certification Last Updated: 25-May-2018 18:09 by Frantz Iyer) CBC Collected: 05/24/2018 Status: F Source: [place] 11:34 AM [facility]OSPITALS REPOSITORY TYPE CODE TESTS RESULT OUT OF REFERENCE UNITS RANGE LAB WBCR(LOINC 4.4 - 11.3 x10E9/L ) WBC 9.3 LAB NRBC(LOINC 0.0-0.0 /100 WBC ) NUCLEATED RBC 0.0 LAB RBCCT(LOIN 4.00 - 5.20 x10E12/L C) RBC 4.10 LAB HGB(LOINC) 12.0 - 16.0 g/dL Low HGB 11.9 LAB HCT(LOINC) 36.0 - 46.0 % Low HCT 35.4 LAB MCV(LOINC) 80 - 100 fL MCV 86 LAB MCHC2(LOIN 32.0 - 36.0 g/dL C) MCHC 33.6 LAB PLTCT(LOIN 150 - 450 x10E9/L C) PLT 346 LAB RDWCV(LOIN 11.5 - 14.5 % C) High RDW-CV 15.1 Performed By: #### CBC #### [facility] [address] [place] [address] COAGULATION SCREEN Collected: 05/24/2018 Status: F Source: [address] REPOSITORY TYPE CODE TESTS RESULT OUT OF REFERENCE UNITS RANGE LAB PT(LOINC) 9.7 - 12.7 sec PROTHROMBIN TIME 11.1 Result Comment: Note new reference range as of 03/20/2018. LAB INR(LOINC) 0.9 - 1.1 PT, INR 1.0 LAB APTT(LOINC) 28 - 38 sec APTT 33 Result Comment: Note new reference range as of 03/20/2018. THE APTT IS NO LONGER USED FOR MONITORING UNFRACTIONATED HEPARIN THERAPY. FOR MONITORING HEPARIN THERAPY, USE THE HEPARIN ASSAY. Performed By: #### COAGS #### [facility] [address] [place] [id number] MAGNESIUM Collected: 05/24/2018 Status: F Source: [address] REPOSITORY TYPE CODE TESTS RESULT OUT OF REFERENCE UNITS RANGE LAB MG(LOINC) 1.60 - 2.40 mg/dL MAGNESIUM 2.09 Performed By: #### MG #### [facility] [address] [place] [id number] RENAL FUNCTION PANEL Collected: 05/24/2018 Status: F Source: [address] REPOSITORY TYPE CODE TESTS RESULT OUT OF RANGE REFERENCE UNITS LAB GLU(LOINC) 74 - 99 mg/dL High GLUCOSE 114 LAB SOD(LOINC) 136 - 145 mmol/L SODIUM 141 LAB K(LOINC) 3.5 - 5.3 mmol/L POTASSIUM 4.4 LAB CHLOR(LOIN 98 - 107 mmol/L C) High CHLORIDE 110 LAB BIC(LOINC) 21 - 32 mmol/L BICARBONATE 21 LAB ANGAP(LOIN 10 - 20 mmol/L C) ANION GAP 14 LAB UREA(LOINC 6 - 23 mg/dL ) UREA NITROGEN 11 LAB CREA(LOINC 0.50 - 1.05 mg/dL ) High CREATININE 1.19 LAB GFRFN(LOIN >60 mL/min/1.7 C) 3m2 GFR-NON Abnormal AM. 46 LAB GFRAA(LOIN >60 mL/min/1.7 C) 3m2 GFR- Abnormal AM. 56 Result Comment: CALCULATIONS OF ESTIMATED GFR ARE PERFORMED USING THE MDRD STUDY EQUATION FOR THE IDMS-TRACEABLE CREATININE METHODS. CLIN CHEM 2007;53:766-72 LAB CA(LOINC) 8.6 - 10.6 mg/dL CALCIUM 9.0 LAB PHOS(LOINC) 2.5 - 4.9 mg/dL PHOSPHORUS 4.1 Result Comment: The performance characteristics of phosphorus testing in heparinized plasma have been validated by the individual laboratory site where testing is performed. Testing on heparinized plasma is not approved by the FDA; however, such approval is not necessary. LAB ALB(LOINC) 3.4 - 5.0 g/dL ALBUMIN 3.4 Performed By: #### RENAL #### [facility] [address] [place] [id number] TROPONIN I Collected: 05/24/2018 Status: F Source: [place] 11:34 AM HOSPITALS REPOSITORY TYPE CODE TESTS RESULT OUT OF REFERENCE UNITS RANGE LAB TROP2(LOINC 0.00 - 0.03 ng/mL ) High alert TROPONIN I 1.82 Result Comment: LESS THAN 0.04 NG/ML: NEGATIVE REPEAT TESTING IN FOUR TO SIX HOURS IF CLINICALLY INDICATED. 0.04 - 0.5 NG/ML: CONSISTENT WITH POSSIBLE CARDIAC DAMAGE AND POSSIBLE INCREASED CLINICAL RISK. SERIAL MEASUREMENTS MAY HELP ASSESS EXTENT OF MYOCARDIAL DAMAGE. >0.5 NG/ML: CONSISTENT WITH CARDIAC DAMAGE, INCREASED CLINICAL RISK AND MYOCARDIAL INFARCTION. SERIAL MEASUREMENTS MAY HELP ASSESS EXTENT OF MYOCARDIAL DAMAGE. . Note: Troponin I testing is performed using different testing methodology at [facility] than at other [facility]. Direct result comparisons should only be made within the same method. . Patients receiving more than 5 mg/day of biotin may have interference in test results. A sample should be taken no sooner than eight hours after previous dose. Contact [phone] for additional information. Performed By: #### TROP2 #### [facility] [address] [place] [address] EMERGENCY DEPARTMENT Observed: 05/24/2018 Status: F Source: [place] SUMMARY 7:50 AM [facility] REPOSITORY [facility] Medical Records Department [address] [place] [address] Emergency Department Summary 05/24/18 0741 MR#: [id number] Acct: [id number] Name: DAVINA GREEN Rep #: [id number] : 1955 62 From: Steve Fong MD PCP: Ivy Jimenez III, MD Status: REG ER - ER Visit Summary Date of Service: 05/24/18 Chief Complaint: Shortness of breath History of Present Illness: The patient is a 62 F who presents with shortness of breath. It began about 2-3 hours before presentation. She also complains of chest tightness which is 10 out of 10. She complains of a productive cough and some diarrhea. She was recently hospitalized for acute congestive heart failure. She was found to have triple-vessel disease. She was transferred to [facility] because it was felt she like he needed a CABG. She did not undergo CABG but did undergo stenting and was told that she likely needs another stent. Physical Examination: Afebrile blood pressure 180/93 heart rate 104 pulse ox 87% on room air Heart regular rhythm tachycardia Patient has bilateral rales increased work of breathing speaking in short sentences Abdomen soft Extremities are nontender without edema Alert Test Results: EKG shows sinus rhythm at a rate of 102. Labs notable for creatinine 1.35. Troponin is 1.6. BNP is 3512. Emergency Department Course and Treatment: Patient was given aspirin and placed on monitoring analyst. She was placed on BiPAP. She did have improvement on BiPAP. Her chest x-ray shows progressing right alveolar disease. On my review this does appear this was CHF which fits her clinical picture. Given her troponin of 1.6 I do believe this is an STEMI. We discussed anticoagulation but she states that she had significant bleeding complications at the time of her heart cath and she may also need surgical intervention given her history. Therefore we deferred on anticoagulation. She was given IV Lasix. We also applied Nitropaste to the chest. Patient will be transferred to [facility]. Treatment Plan: [] Disposition: Transfer Impression: NSTEMI CHF This note was generated with Gen[employer]per[employer] dictation software. It may contain incorrect words, spelling, and punctuation that were not noted in review of the chart prior to signing ED Disposition - Plan for ED Patient: Chief Complaint: Shortness of Breath Referrals: Ivy Jimenez III, MD [Primary Care Provider] - What to do if you have Problems For any increased pain, shortness of breath, bleeding, nausea or vomiting, chest pain, or any unexpected problems, contact your Primary Care Provider. Call [facility] ([phone]) or report to the closest Emergency Room. Call 911 if necessary. 05/24/18 0750 <Electronically signed by Steve Fong MD> Date Steve Fong MD Cosigner Signature (If Indicated): Date CC: Ivy Jimenez III, MD Observed: 05/24/2018 Status: F Source: [place] CULTURE, BLOOD (WB) 7:14 AM [facility] REPOSITORY BC No growth in 5 days. Performed By: #### M200.1000 #### [facility] [address] [place], [place], [address] LACTIC ACID Collected: 05/24/2018 Status: F Source: [place] 7:05 AM [facility] REPOSITORY Order Comment: Yes/No query for Sepsis Lactate Rule Y TYPE CODE TESTS RESULT OUT OF RANGE REFERENCE UNITS LAB L503.6005 0.4-2.0 mmol/L Normal LACTIC ACID 1.3 Performed By: #### L503.6005 #### [facility] [address] [place], [address] CHEST 1 VIEW Observed: 05/24/2018 Status: F Source: [place] (PORTABLE) 6:43 AM [facility] REPOSITORY [facility] Imaging Services [address] [place] [address] Chest 1 View (Portable) MR#: [id number] Acct: [id number] Name: DAVINA GREEN Rep #: [id number] : 1955 F 62 From: Roxanna Alicea MD PCP: Ivy Jimenez III, MD Status: REG ER Study: Chest 1 View (Portable) Date of Exam: 05/24/18 Exam# [id number] Ordering Dr: Steve Fong MD STUDY: X-RAY CHEST REASON FOR EXAM: Female, 62 years old. SOB TECHNIQUE: Single frontal view of the chest. COMPARISON: 05/08/2018 FINDINGS: Progressing right basilar alveolar disease. There is no demonstrated pleural abnormality. Stable cardiomediastinal silhouette. Normal mediastinum and tom. Normal visualized pulmonary arteries. Normal visualized aortic arch and descending thoracic aorta. Normal visualized thoracic spine. Normal visualized ribs, clavicles, and shoulders. There is no demonstrated abnormality of the visualized soft tissue structures of the upper abdomen. RAD/Chest 1 View (Portable) IMPRESSION: Progressing right basilar alveolar disease. Electronically Signed: Roxanna Alicea MD at 7:26 EST Tel , Service support , CC: Ivy Jimenez III, MD; Steve Fong MD Renewable Energy Technician: Signed CBC W/DIFF, AUTOMATED Collected: 05/24/2018 Status: F Source: [place] 6:40 AM [facility] REPOSITORY TYPE CODE TESTS RESULT OUT OF RANGE REFERENCE UNITS LAB L100.1000 4.4-11.0 K/mm3 Normal WBC 10.9 LAB L100.1200 4.2-5.4 M/mm3 Normal RBC 4.35 LAB L100.1300 12.0-15.0 g/dl Normal HGB 12.7 LAB L100.1400 37-47 % Normal HCT 39.0 LAB L100.1500 81-99 fL Normal MCV 89.7 LAB L100.1600 27.0-32.0 pg Normal MCH 29.2 LAB L100.1700 32-36 g/gl Normal MCHC 32.6 LAB L100.1810 11.6-14.6 % High RDW CV 15.5 LAB L100.1820 35.1-43.9 fl High RDW SD 50.2 LAB L100.1900 150-450 K/mm3 Normal PLT 363 LAB L100.2000 6.2-12.0 fl Normal MPV 10.1 LAB L100.2100 47-70 % Normal NEUT% 51.5 LAB L100.2200 19-41 % Normal LY% 27.3 LAB L100.2300 0-10 % Normal MONO% 6.7 LAB L100.2400 0-5 % High EO% 13.5 LAB L100.2500 0-1 % Normal BASO% 0.8 LAB L100.2550 0.0-0.9 % Normal IM GRAN % 0.200 Result Comment: IG% - Immature Granulocytes (promyelocytes, myelocytes and metamyelocytes) > 1% indicates that a LEFT SHIFT is Present. LAB L100.2620 2.0-7.7 X10 3/uL Normal Absolute Neut 5.6 LAB L100.2720 0.83-4.51 X10 3/ul Normal Absolute Lymph 2.97 Performed By: #### L100.0100 #### [facility] [address] [place], [address] BASIC METABOLIC Collected: 05/24/2018 Status: F Source: [place] PROFILE ([facility]) 6:40 AM [facility] REPOSITORY TYPE CODE TESTS RESULT OUT OF RANGE REFERENCE UNITS LAB L501.0100 74-106 mg/dL High GLU 111 Result Comment: Fasting Glucose result from 100 to 125 mg/dL suggests IMPAIRED HOMEOSTASIS per A.D.A. criteria. Please note revised GLUCOSE reference range effective 2017. LAB L501.1000 7-18 mg/dL Normal BUN 11 LAB L501.1100 0.55-1.02 mg/dL High CREAT,SERUM 1.35 Result Comment: The validity of the calculated GFR AND GFRAA in patients over 70 years has not been determined. Clinical correlation is essential. LAB L501.1110 >60 mL/min Low EST GFR 42 Result Comment: Non- GFR Calc LAB L501.1115 >60 mL/min Low EST GFR - AA 51 Result Comment: GFR Calc LAB L501.1255 ml/min Normal Estimated CRCL 31.04 LAB L501.1300 10-20 RATIO Low BUN/CRE 8.1 LAB L501.2200 8.5-10 mg/dL Normal .1 CA 8.8 LAB L501.5300 136-14 mmol/L Normal 5 NA 142 LAB L501.5600 3.5-5. mmol/L Normal 1 K 4.6 LAB L501.5900 98-107 mmol/L High CL 111 LAB L501.6100 21.0-3 mmol/L Normal 2.0 CO2 22.0 LAB L501.6200 5-15 Normal GAP 9 Performed By: #### L500.2500, L501.4010 #### [facility] [address] [place], [address] TROPONIN-I Collected: 05/24/2018 Status: F Source: [place] 6:40 AM [facility] REPOSITORY TYPE CODE TESTS RESULT OUT OF RANGE REFERENCE UNITS LAB L501.4010 <0.045 ng/mL High alert 1.600 TROPONIN-I Result Comment: Critical Result(s) Called at: 07:21:17 05/24/2018 by: [facility] TROPONIN-I EXPECTED VALUES <0.045 Negative 0.045 - 0.590 Consistent with Cardiac Damage > OR = 0.600 Critical Value Not every elevated troponin is indicative of SD. These values should be used with clinical judgement in examining the patient's clinical picture for diagnosis. To establish a diagnosis of SD versus myocardial injury, there must be a demonstrated rise and/or fall in the troponin values, in addition to ischemic symptoms, EKG changes, new regional wall motion abnormality, and/or angiographical evidence. PLEASE NOTE: REFERENCE RANGES EDITED 17 Performed By: #### L500.2500, L501.4010 #### [facility] [address] [place], [address] BNP,B-TYPE NATRIURETIC Collected: 05/24/2018 Status: F Source: [place] PEPTIDE 6:40 AM [facility] REPOSITORY TYPE CODE TESTS RESULT OUT OF RANGE REFERENCE UNITS LAB L503.6620 0-100 pg/mL High B-TYPE 3512.5 CHRIS PEP Performed By: #### L503.6620 #### [facility] [address] [place], [address] CBC Collected: 05/21/2018 Status: CANCELLED Source: [place] 12:30 AM [facility]ITALS REPOSITORY Order Comment: TEST CBC WAS CANCELLED, 05/21/2018 18:30 ?Cancel Reason: Patient Discharged. TYPE CODE TESTS RESULT OUT OF REFERENCE UNITS RANGE LAB WBCR(LOINC ) WBC Canceled LAB NRBC(LOINC ) NUCLEATED RBC Canceled LAB RBCCT(LOIN C) RBC Canceled LAB HGB(LOINC) HGB Canceled LAB HCT(LOINC) HCT Canceled LAB MCV(LOINC) MCV Canceled LAB MCHC2(LOIN C) MCHC Canceled LAB PLTCT(LOIN C) PLT Canceled LAB RDWCV(LOIN C) RDW-CV Canceled Performed By: #### CBC #### [facility] [address] [place] [address] BASIC METABOLIC PANEL Collected: 05/21/2018 Status: CANCELLED Source: [place] 12:30 AM [facility]ALS REPOSITORY Order Comment: TEST BASIC METABOLIC PANEL WAS CANCELLED, 05/21/2018 18:30 ?Cancel Reason: Patient Discharged. TYPE CODE TESTS RESULT OUT OF REFERENCE UNITS RANGE LAB GLU(LOINC) GLUCOSE Canceled LAB SOD(LOINC) SODIUM Canceled LAB K(LOINC) POTASSIUM Canceled LAB CHLOR(LOIN C) CHLORIDE Canceled LAB BIC(LOINC) BICARBONATE Canceled LAB ANGAP(LOIN C) ANION GAP Canceled LAB UREA(LOINC ) UREA NITROGEN Canceled LAB CREA(LOINC ) CREATININE Canceled LAB GFRFN(LOIN C) GFR-NON AM. Canceled LAB GFRAA(LOIN C) GFR- AM. Canceled Result Comment: CALCULATIONS OF ESTIMATED GFR ARE PERFORMED USING THE MDRD STUDY EQUATION FOR THE IDMS-TRACEABLE CREATININE METHODS. CLIN CHEM 2007;53:766-72 LAB CA(LOINC) Canceled CALCIUM Performed By: #### BMP #### [facility] [address] [place] [address] GLUCOSE-POCT Collected: 05/20/2018 Status: F Source: [place] 5:04 PM [facility]OS[facility]ITALS REPOSITORY TYPE CODE TESTS RESULT OUT OF RANGE REFERENCE UNITS LAB GLUP(LOINC) 74 - 99 mg/dL High 131 GLUCOSE-POCT Performed By: #### GLUPO #### [facility] [address] [place] [address] DISCHARGE SUMMARY Observed: 05/20/2018 Status: COMPLETED Source: [place] 1:29 PM [facility]OS[facility]ITALS REPOSITORY Send Summary: Discharge Summary Providers: Provider RoleProvider Name ReferringCorrect Info, Needed AttendingBrittany Rm PrimaryRequired, No Pcp Note Recipients: Correct Info, Needed, MD Required, No Pcp, MD Discharge: Summary: Admission Date: .10-May-2018 20:03:00 Discharge Date: 20-May-2018 Attending Physician at Discharge: Brittany Rm Admission Reason: NSTEMI, CAD, Transferred for CABG eval(1) Final Discharge Diagnoses: CAD (coronary artery disease), Coronary artery insufficiency, DM (diabetes mellitus), HTN (hypertension), Hyperlipidemia, Ischemic cardiomyopathy, 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, Non-ST elevation myocardial infarction (NSTEMI), subendocardial infarction, initial episode of care, PAD (peripheral artery disease), Systolic heart failure, Tobacco abuse, Type 2 diabetes mellitus with diabetic peripheral angiopathy with gangrene, Procedures: Cardiac catheterization 05/18/2018 PCI with JAZIEL LCx and LAD proximal to middle third Condition at Discharge: Satisfactory Disposition at Discharge: .Home Vital Signs: T PRBPSpO2 [id number]/7095% Date/Time05/20 7: 7: 7: 7: 7:04 Range(36.3C - 37C ) (84 - 92 ) (14 - 18 ) (92 - 140 )/ (63 - 85 ) (94% - 95% ) Highest temp of 37 C was recorded at 05/20 3:13 Physical Exam: General: A&Ox3 no distress Pulm: CTA CV: sr telemetry, good S1 and S2, rrr, no m/r/g Abdomen: +bs soft nt nd Skin: right groin ecchymotic soft no hematoma no ooze no erythema no drainage Pulses radials +2 pt's +1 Extremities: no edema Hospital Course: 62 y/o female with a h/o HTN, HLD, type II DM, and stroke (no residual deficits) who presented as a transfer from [facility] for CABG evaluation. She presented to [facility] on 05/08/2018 with two days of intermittent sharp substernal chest pain and SOB while laying flat. She also c/o worsening fatigue over the past year. In the ED, EKG showed sinus tachycardia, lateral ST depressions, and TWI in V5 and V6. CXR showed central venous congestion. Labs were notable for troponin 0.13. She was given ASA, morphine, and Zofran and admitted for ACS rule-out. TTE done showed an EF of 37% and diastolic dysfunction. Cardiology was consulted and the patient was started on Lasix and carvedilol as well as ASA and Plavix (per the notes and confirmed by patient). She underwent a cardiac cath which showed severe three-vessel disease with 90% stenosis of the LAD, 80-90% stenosis of the left circumflex, and a completely occluded right coronary. She was transferred to [facility] for CABG evaluation. Vascular surgery was consulted for carotid stenosis seen on ultrasound. Carotid duplex: R: < 50% stenosis, L >50% stenosis, ABIs: R ratio 0.66, 0.70, L ratio 0.59, brachial pressure 124mmHg on right and 103mmHg on left, CTA head and neck 05/12: Severe stenosis at the origin of the left internal carotid artery. Moderate narrowing at the proximal right common carotid artery. No surgical intervention was needed at this time except Vasc f/u in one month with Dr. Jimenez at [facility]. On 05/15 she underwent Cardiac MRI for viability: LVEF 37%, delayed subendocardial enhancement of the base and mid inferior wall involving up to 50% of the myocardial thickness in keeping with the sequela of infarction in the RCA territory with component of viable myocardium. No other areas of delayed enhancement is identified in the LAD or LCx territory. On 05/17 she had 10 teeth extracted. Her films were reviewed and it was determined she could undergo PCI instead of CABG. 05/18 she had LHC with Dr[address] Keith at which time placed JAZIEL LCx and JAZIEL LAD proximal to middle third. During cardiac cath hypotension d/t acute blood loss anemia requiring 3 units of PRBC's. Pt received protamine for heparin reversal. After catheterization hemostatsis achieved right groin site, daily H&H's stable. Plan for patient to return in one months time for retrograde RCA HYDRANT SETTER with Dr. Keith. Hospital discharge follow up appointments requested, for patient with HVI service [facility] within 1 weeks time- patient advised to call for appointment if not scheduled within 2 days after discharge. Discharge weight 64.3 kg All labs reviewed and vital signs stable. It is determined that the patient was medically stable and ready for discharge. More than 30 minutes were spent coordinating discharge. Discharge Information: and Continuing Care: Discharge Instructions: Activity: activity as tolerated. No pushing, pulling, or lifting objects greater than 10 pounds for 1 week(s). after catheretization. Balance activity with rest, gradually increase your activity as tolerated Exercise as prescribed by your physician Left Ventricular Ejection Fraction: Left Ventricular Ejection Fraction %: 35% Nutrition/Diet: low fat, diabetic/carbohydrate counted Diabetic/Carbohydrate Counted: 60gram/Carb meal, 30gram/Carb snack (1600-1800cals) Wound Care: Wound Site: right groin Wound Type: vascular access (cardiac catheterization) site Cleanse With: soap and water Instructions: no lotions, creams, or tub soaks Other Instructions: No tub bathing or swimming for 1 week after cath, if site begins to bleed lay down and apply pressure directly over site for 5 minutes if continues to bleed then call 911 Do NOT allow anyone but the Vascular Surgeon to remove liz or sutures. Infectious Disease: PPD Status: not given MRSA: no VRE: no C. Diff: no Other Resistant Organism: no Isolation Type: none Follow Up Appointments: Follow-Up - Vascular Surgeon: Physician/Dept./Service: Vascular Surgeon Follow-Up Appointment 01: Physician/Dept/Service: HVI (cardiology) Reason for Referral: coronary artery disease Call to Schedule in: 1 week, Patient/Family/Parent prefers to schedule appointment Location: [facility] Phone Number: call for an appointment Follow-Up Appointment 02: Physician/Dept/Service: Dr. Thai Henley/Vascular Surgery Reason for Referral: Hospital Follow Up/subclavian artery/carotid Scheduled Date/Time: 18-Jun-2018 10:40 Location: [place] [address] [address] Follow-Up Appointment 03: Physician/Dept/Service: Dr. Velma Jimenez, Vascular Scheduled Date/Time: 18-Jun-2018 13:20 Location: [address], [address], [place]. [address] Follow-Up Appointment 04: Physician/Dept/Service: Dr. Charles Good, Cardiology Call to Schedule in: Office requests you call to schedule appointment Follow-Up Appointment 05: Physician/Dept/Service: Dr. Ivy Jimenez, PCP Scheduled Date/Time: 04-Jun-2018 15:00 Location: [address] [facility] [address] Discharge Medications: Home Medication insulin glargine 100 units/mL subcutaneous solution - 18 unit(s) subcutaneous every 24 hours busPIRone 5 mg oral tablet - 1 tab(s) orally every 8 hours aspirin 81 mg oral tablet, chewable - 1 tab(s) orally once a day atorvastatin 40 mg oral tablet - 1 tab(s) orally once a day clopidogrel 75 mg oral tablet - 1 tab(s) orally once a day carvedilol 3.125 mg oral tablet - 1 tab(s) orally 2 times a day docusate-senna 50 mg-8.6 mg oral tablet - 2 tab(s) orally 2 times a day polyethylene glycol 3350 oral powder for reconstitution - 17 gram(s) orally once a day omega-3 polyunsaturated fatty acids 1000 mg oral capsule - 2 cap(s) orally 2 times a day PRN Medication Lab Results - Pending: None Radiology Results - Pending: Midline Placement in Radiology (greater than 5 years) at 17-May-2018 10:28:00 Signature/Cosignature/Attestation: Comments/ Additional Findings I have interviewed and examined the patient and the documentation above reflects my edited findings and plans. Greater than 30 minutes was spent in the discharge day management of this patient. Nick Rm MD, [facility] Electronic Signatures: Brittany Rm) (Signed 04-Jun-2018 12:12) Authored: Ongoing Care, Signature/Cosignature/Attestation Co-Signer: Send Summary, Summary Content, Ongoing Care, Signature/Cosignature/Attestation Jovani Longoria (COMMUNICATIONS PROGRAM MANAGER-CREDIT CONTROL ADMINISTRATOR) (Signed 20-May-2018 13:41) Authored: Send Summary, Summary Content, Ongoing Care, Signature/Cosignature/Attestation Last Updated: 04-Jun-2018 12:12 by Brittany Rm) References: 1. Data Referenced From Consult-Cardiac Surgery 11-May-2018 2:54 PM GLUCOSE-POCT Collected: 05/20/2018 Status: F Source: [facility] 11:12 AM HOSPITALS REPOSITORY TYPE CODE TESTS RESULT OUT OF RANGE REFERENCE UNITS LAB GLUP(LOINC) 74 - 99 mg/dL High 157 GLUCOSE-POCT Performed By: #### GLUPO #### [facility] [address] [place] [id number] CBC Collected: 05/20/2018 Status: F Source: [facility] 9:14 AM HOSPITALS REPOSITORY TYPE CODE TESTS RESULT OUT OF REFERENCE UNITS RANGE LAB WBCR(LOINC 4.4 - 11.3 x10E9/L ) WBC 9.5 LAB NRBC(LOINC 0.0-0.0 /100 WBC ) NUCLEATED RBC 0.0 LAB RBCCT(LOIN 4.00 - 5.20 x10E12/L C) Low RBC 3.91 LAB HGB(LOINC) 12.0 - 16.0 g/dL Low HGB 11.2 LAB HCT(LOINC) 36.0 - 46.0 % Low HCT 33.9 LAB MCV(LOINC) 80 - 100 fL MCV 87 LAB MCHC2(LOIN 32.0 - 36.0 g/dL C) MCHC 33.0 LAB PLTCT(LOIN 150 - 450 x10E9/L C) PLT 231 LAB RDWCV(LOIN 11.5 - 14.5 % C) High RDW-CV 15.5 Performed By: #### CBC #### [facility] [address] [place] [id number] BASIC METABOLIC PANEL Collected: 05/20/2018 Status: F Source: [facility] 9:14 AM HOSPITALS REPOSITORY TYPE CODE TESTS RESULT OUT OF RANGE REFERENCE UNITS LAB GLU(LOINC) 74 - 99 mg/dL High GLUCOSE 109 LAB SOD(LOINC) 136 - 145 mmol/L SODIUM 139 LAB K(LOINC) 3.5 - 5.3 mmol/L POTASSIUM 4.3 LAB CHLOR(LOIN 98 - 107 mmol/L C) CHLORIDE 106 LAB BIC(LOINC) 21 - 32 mmol/L BICARBONATE 24 LAB ANGAP(LOIN 10 - 20 mmol/L C) ANION GAP 13 LAB UREA(LOINC 6 - 23 mg/dL ) UREA NITROGEN 14 LAB CREA(LOINC 0.50 - 1.05 mg/dL ) High CREATININE 1.24 LAB GFRFN(LOIN >60 mL/min/1.7 C) 3m2 GFR-NON Abnormal AM. 44 LAB GFRAA(LOIN >60 mL/min/1.7 C) 3m2 GFR- Abnormal AM. 53 Result Comment: CALCULATIONS OF ESTIMATED GFR ARE PERFORMED USING THE MDRD STUDY EQUATION FOR THE IDMS-TRACEABLE CREATININE METHODS. CLIN CHEM 2007;53:766-72 LAB CA(LOINC) 8.6 - 10.6 mg/dL CALCIUM 8.6 Performed By: #### BMP #### [facility] [address] [place] [address] GLUCOSE-POCT Collected: 05/20/2018 Status: F Source: [facility] 7:06 AM HOSPITALS REPOSITORY TYPE CODE TESTS RESULT OUT OF RANGE REFERENCE UNITS LAB GLUP(LOINC) 74 - 99 mg/dL High 106 GLUCOSE-POCT Performed By: #### GLUPO #### [facility] [address] [place] [id number] BASIC METABOLIC PANEL Collected: 05/20/2018 Status: CANCELLED Source: [facility] 12:30 AM HOSPITALS REPOSITORY Order Comment: TEST BASIC METABOLIC PANEL WAS CANCELLED, 05/20/2018 18:30 ?Cancel Reason: Patient Discharged. TYPE CODE TESTS RESULT OUT OF REFERENCE UNITS RANGE LAB GLU(LOINC) GLUCOSE Canceled LAB SOD(LOINC) SODIUM Canceled LAB K(LOINC) POTASSIUM Canceled LAB CHLOR(LOIN C) CHLORIDE Canceled LAB BIC(LOINC) BICARBONATE Canceled LAB ANGAP(LOIN C) ANION GAP Canceled LAB UREA(LOINC ) UREA NITROGEN Canceled LAB CREA(LOINC ) CREATININE Canceled LAB GFRFN(LOIN C) GFR-NON AM. Canceled LAB GFRAA(LOIN C) GFR- AM. Canceled Result Comment: CALCULATIONS OF ESTIMATED GFR ARE PERFORMED USING THE MDRD STUDY EQUATION FOR THE IDMS-TRACEABLE CREATININE METHODS. CLIN CHEM 2007;53:766-72 LAB CA(LOINC) Canceled CALCIUM Performed By: #### BMP #### [facility] [address] [place] [address] CBC Collected: 05/20/2018 Status: CANCELLED Source: [facility] 12:30 AM [facility]OS[facility]ITALS REPOSITORY Order Comment: TEST CBC WAS CANCELLED, 05/20/2018 18:30 ?Cancel Reason: Patient Discharged. TYPE CODE TESTS RESULT OUT OF REFERENCE UNITS RANGE LAB WBCR(LOINC ) WBC Canceled LAB NRBC(LOINC ) NUCLEATED RBC Canceled LAB RBCCT(LOIN C) RBC Canceled LAB HGB(LOINC) HGB Canceled LAB HCT(LOINC) HCT Canceled LAB MCV(LOINC) MCV Canceled LAB MCHC2(LOIN C) MCHC Canceled LAB PLTCT(LOIN C) PLT Canceled LAB RDWCV(LOIN C) RDW-CV Canceled Performed By: #### CBC #### [facility] [address] [place] [address] GLUCOSE-POCT Collected: 05/19/2018 Status: F Source: [facility] 7:14 PM HOSPITALS REPOSITORY TYPE CODE TESTS RESULT OUT OF RANGE REFERENCE UNITS LAB GLUP(LOINC) 74 - 99 mg/dL High 216 GLUCOSE-POCT Performed By: #### GLUPO #### [facility] [address] [place] [address] GLUCOSE-POCT Collected: 05/19/2018 Status: F Source: [facility] 5:53 PM HOSPITALS REPOSITORY TYPE CODE TESTS RESULT OUT OF RANGE REFERENCE UNITS LAB GLUP(LOINC) 74 - 99 mg/dL High 322 GLUCOSE-POCT Performed By: #### GLUPO #### [facility] [address] [place] [address] CLINICAL EVENT Observed: 05/19/2018 Status: UNK Source: UNIVERSITY NOTE-FLOOR NOTE 4:39 PM HOSPITALS REPOSITORY Event: Topic: Floor Note Details: Patient seen after being transferred from CICU after cardiac PCI Patient in bed eating. No complaints. EXAM alert and oriented x 3 cath site right groin dressing dry and intact, no swelling, foot warm HHVI aware of patient on service Provider / Team Contact Information: Provider/Team Contact Info-Pager Number: [phone] Electronic Signatures: Mariah Vang (COMMUNICATIONS PROGRAM MANAGER-CREDIT CONTROL ADMINISTRATOR) (Signed 19-May-2018 16:43) Authored: Event, Provider / Team Contact Information Last Updated: 19-May-2018 16:43 by Mariah Vang (COMMUNICATIONS PROGRAM MANAGER-[facility]) DAILY PROGRESS NOTE - Observed: 05/19/2018 Status: COMPLETED Source: [facility] 11:27 AM HOSPITALS REPOSITORY Service: Critical Care Service: ServiceCICU Subjective Data: ID Statement: DAVINA GREEN is a 62 year old Female who is Hospital Day # 10 and ICU Day #1. O/N: AMINTA S: No acute concerns. Denies chest pain, shortness of breath. Objective Data: Objective Information T PRBPSpO2 [id number]/6997% Date/Time05/19 11: 11: 11: 11: 11:17 Range(36.1C - 37.1C ) (76 - 96 ) (13 - 23 ) (94 - 122 )/ (55 - 76 ) (90% - 98% ) Highest temp of 37.1 C was recorded at 05/18 11:36 ---- Intake and Output ----- Mn/Dy/Year TimeIntakeOutputNet May 19, 2018 6:00 [id number] May 18, 2018 10:00 [id number] May 18, 2018 2:00 [id number] The Intake and Output Totals for the last 24 hours are: IntakeOutputNet [id number] Physical Exam: Physical Exam: Neurological: no focal deficits Cardiovascular: RRR no m/r/g Respiratory/Thorax: CTAB Gastrointestinal: soft, ND/NT Skin: Warm and dry Constitutional: lying in bed in NAD Head/Neck: no JVD Extremities: no LE edema Psychological: Appropriate mood and behavior Allergies: Allergies: penicillin: Hives/Urticaria Medications: Medications: Continuous Medications No continuous medications are active Scheduled Medications 1. Aspirin Chewable: 81 mg Oral Daily 2. Atorvastatin: 40 mg Oral Daily 3. busPIRone (BUSPAR): 5 mg Oral Every 8 Hours 4. Carvedilol: 3.125 mg Oral 2 Times a Day 5. Docusate 50 mg - Senna 8.6 m tablet(s) Oral 2 Times a Day 6. Insulin Glargine (Lantus) Injectable: 6 unit(s) SubCutaneous Every 24 Hours 7. Insulin Lispro Mild Corrective Scale: unit(s) SubCutaneous 3 Times a Day Before Meals 8. [place]-3 Acid Ethyl Esters: 2 gram(s) Oral 2 Times a Day 9. Polyethylene Glycol: 17 gram(s) Oral Daily 10. Sodium Chloride 0.9% Injectable Flush: 10 mL IntraVenous Flush Every 12 Hours PRN Medications 1. Acetaminophen: 650 mg Oral Every 4 Hours 2. Albuterol 2.5 mg/ 3 mL Nebulizer Soln: 3 mL Inhalation Every 4 Hours 3. Dextrose 50% in Water Injectable: 25 gram(s) IntraVenous Push Every 15 Minutes 4. Glucagon Injectable: 1 mg IntraMuscular Every 15 Minutes 5. Heparin Flush 10 unit/ mL PF Injectable: 5 mL IntraVenous Flush Every 12 Hours 6. Heparin Flush 10 unit/ mL PF Injectable PRN: 5 mL IntraVenous Flush According to Flush Policy 7. Lidocaine 1% Injectable (PICC KIT): 1 mL IntraDermal Once 8. LORazepam: 0.25 mg Oral Every 12 Hours 9. Ondansetron Injectable: 4 mg IntraVenous Push Every 6 Hours 10. oxyCODONE 5 mg - Acetaminophen 325 m tablet(s) Oral Every 4 Hours 11. Sodium Chloride 0.9% Injectable Flush PRN: 10 mL IntraVenous Flush According to Flush Policy 12. Sodium Chloride 0.9% Injectable Flush PRN: 20 mL IntraVenous Flush According to Flush Policy Conditional Medication Orders 1. Perflutren Lipid Microsphere (Activated) 1.3 mL / NaCL 0.9% T.V. 10 mL Injectable: 0.5 mL IntraVenous Push Once Currently Suspended Medications 1. Enoxaparin SubCutaneous: 40 mg SubCutaneous Every 24 Hours Recent Lab Results: Results: I have reviewed these laboratory results: Basic Metabolic Panel 19-May-2018 03:50:00 ResultValue Glucose, Serum 147 H NA 136 K 4.2 CL 105 Bicarbonate, Serum 22 Anion Gap, Serum 13 BUN 18 CREAT 1.20 H GFR-Non 45 A GFR- 54 A Calcium, Serum 8.1 L Complete Blood Count Trending View [id number] 03:50:00 18-May-2018 21:50:00 White Blood Cell Count8.5 10.9 Nucleated Erythrocyte Count0.0 0.0 Red Blood Cell Count4.14 4.40 HGB12.0 12.8 HCT33.6 L 36.1 MCV81 82 MCHC35.7 35.5 [id number] 215 RDW-CV15.5 H 14.9 H Magnesium, Serum 19-May-2018 03:50:00 ResultValue Magnesium, Serum 1.90 Results: Conclusion: CONCLUSIONS: 1. Successful deployment of overlapping Resolute Fieldon 2.0 x 30 mm and 3.0 x 22 mm JAZIEL from the middle third of the LCx into the OM3, post- dilated with a 3.0 NC balloon. 2. Successful deployment of overlapping Resolute Fieldon 2.0 x 30 mm and 2.5 x 34 mm JAZIEL placed from the proximal LAD into the middle third of the first diagonal branch, post-dilated with a 2.5 NC balloon. 3. Plan for retrograde RCA HYDRANT SETTER intervention in 1 month. 4. Patient was hypotensive and developed acute blood loss anemia during the procedure (see coronary intervention comments). She was subsequently transferred to the CICU in stable condition. 5. ASA 81 mg daily for life. Plavix 75 mg daily. 6. Patient to follw-up with Dr. Keith as an outpatient for RCA HYDRANT SETTER intervention. 7. 3 gram hemoglobin decrease requiring transfusion of 3 units of PRBCs. Cardiac Catheterization Lab Procedures [May 18 2018 9:06PM] Impression: MRI Cardiac w/wo contrast for Morph/Funct and Valve Dz [May 15 2018 4:06PM] Assessment and Plan: Daily Risk Screen: Does patient have a central lineno Does patient have an indwelling urinary catheterno Is the patient intubatedno Neurology: Diagnosis: Assessment: Ms. Green is a 62 y/o WF with HTN, HLD, Type 2 DM - on insulin, PVD with prior RLE arterial procedure, and CVA 8 years ago (no residual deficits) s/p Rt , CAD with multivessel disease presented as a transfer from [facility] for CABG evaluation, not a surgical candidate, the decision was made to do elective PCI, s/p PCI (05/18) with 2 overlapping JAZIEL in LCx & 2 overlapping JAZIEL in LAD, initial concern for femoral bleed on POC HgB s/p 3u pRBCs with Hgb 12. No current e/o bleed and initial POC HgB likely inaccurate. CARDIOVASCULAR: #CAD multi vessel disease s/p 2 overlapping JAZIEL in LCx & 2 overlapping JAZIEL in LAD - LHC at the OSH: 90% LAD, 80-90% Circ, HYDRANT SETTER of RCA - TTE done showed an EF of 37% and diastolic dysfunction - Not as surgical candidate - consulted Dental/OMFS: extracted 10 teeth - Cardiac MRI: LVEF 37%, delayed subendocardial enhancement of the base and mid inferior wall involving up to 50% of the myocardial thickness in keeping with the sequela of infarction in the RCA territory with component of viable myocardium. No other areas of delayed enhancement is identified in the LAD or LCx territory. - ASA/Plavix - f/u with Dr. Keith in 2-4 weeks after discharge. Plan for retrograde RCA HYDRANT SETTER - f/u with the marketing account executive at [facility] # PAD, maintaining perfusion at this time - s/p Left CEA in setting of CVA - vascular surgery rec no surgical intervention - carotid duplex: R: < 50% stenosis, L >50% stenosis - ABIs: R ratio 0.66, 0.70, L ratio 0.59 - brachial pressure 124mmHg on right and 103mmHg on left - CTA head and neck: Severe stenosis at the origin of the left internal carotid artery. Moderate narrowing at the proximal right common carotid artery - Vasc f/u in one month with Dr. Jimenez at [facility] #HTN, soft bp -D/c hydralazine -hold carvedilol 3.125mg BID #Hyperlipidemia - cont statin GI: #constipation, no BM for 5 days -doc-senna, miralax -Miralax HEME: #C/f bleeding during the catheterization - hypotensive and the towels near the arterial sheath were covered in blood. -Hb 7.2, decreased from 10.2 at 1AM the same day though on POC, unlikely to be accurate. -groin with no hematoma. -Stat bedside ECHO revealed no effusion. -heparin was reversed with Protamine 50 mg IV. received a total of 3 units. -received 300 mcg of phenylephrine and 1250 cc of fluid with resulting hemodynamic stability. -hb post transfusion, incremented to 12, which's unlikely with 3 units ENDO: #Type II DM - Home dose insuline glargine 18units, was receiving 12 units while inpatient, -6units while NPO - ISS, accuhecks - 05/11 Hgb A1C 6.6% F: not indicated E: Replete PRN Diet: diabetic diet, low Na Access: Rt PICC line & femoral access GIPPX: none DVTPPX: SCDs given the bleed, hold lovenox Code status: FULL Code Status: Code StatusFull Code Signature/Cosignature/Attestation: Attending AttestationI saw and evaluated the patient. I personally obtained the rico and critical portions of the history and physical exam or was physically present for rico and critical portions performed by the resident/fellow. I reviewed the resident/fellows documentation and discussed the patient with the resident/fellow. I agree with the resident/fellows medical decision making as documented in the resident/fellows note with the exception/addition of the following: I personally evaluated the patient (as noted in the above attestation) on 19-May-2018 Comments/ Additional Findings Multiple risk factors s/p LAD, Cx PCI yesterday. Tx to CICU d/t concerns for bleeding s/p 3uPRBC with appropriate increment. No active groin issues; reviewed angiogram - no clear extravasation. Stable for tx back to I. Plan for staged RCA HYDRANT SETTER as outpt. Electronic Signatures: Yesi Hale (Resident)) (Signed 19-May-2018 11:35) Authored: Service, Subjective Data, Objective Data, Assessment and Plan, Signature/Cosignature/Attestation Frantz Iyer) (Signed 19-May-2018 14:37) Authored: Signature/Cosignature/Attestation Co-Signer: Service, Subjective Data, Objective Data, Assessment and Plan, Signature/Cosignature/Attestation Last Updated: 19-May-2018 14:37 by Frantz Iyer) GLUCOSE-POCT Collected: 05/19/2018 Status: F Source: [facility] 10:31 AM HOSPITALS REPOSITORY TYPE CODE TESTS RESULT OUT OF RANGE REFERENCE UNITS LAB GLUP(LOINC) 74 - 99 mg/dL High 115 GLUCOSE-POCT Performed By: #### GLUPO #### [facility] [address] [place] [address] GLUCOSE-POCT Collected: 05/19/2018 Status: F Source: [facility] 7:12 AM HOSPITALS REPOSITORY TYPE CODE TESTS RESULT OUT OF RANGE REFERENCE UNITS LAB GLUP(LOINC) 74 - 99 mg/dL High 139 GLUCOSE-POCT Performed By: #### GLUPO #### [facility] [address] [place] [address] CBC Collected: 05/19/2018 Status: F Source: [facility] 3:50 AM HOSPITALS REPOSITORY TYPE CODE TESTS RESULT OUT OF REFERENCE UNITS RANGE LAB WBCR(LOINC 4.4 - 11.3 x10E9/L ) WBC 8.5 LAB NRBC(LOINC 0.0-0.0 /100 WBC ) NUCLEATED RBC 0.0 LAB RBCCT(LOIN 4.00 - 5.20 x10E12/L C) RBC 4.14 LAB HGB(LOINC) 12.0 - 16.0 g/dL HGB 12.0 LAB HCT(LOINC) 36.0 - 46.0 % Low HCT 33.6 LAB MCV(LOINC) 80 - 100 fL MCV 81 LAB MCHC2(LOIN 32.0 - 36.0 g/dL C) MCHC 35.7 LAB PLTCT(LOIN 150 - 450 x10E9/L C) PLT 206 LAB RDWCV(LOIN 11.5 - 14.5 % C) High RDW-CV 15.5 Performed By: #### CBC #### [facility] [address] [place] [address] BASIC METABOLIC PANEL Collected: 05/19/2018 Status: F Source: [facility] 3:50 [facility] REPOSITORY TYPE CODE TESTS RESULT OUT OF RANGE REFERENCE UNITS LAB GLU(LOINC) 74 - 99 mg/dL High GLUCOSE 147 LAB SOD(LOINC) 136 - 145 mmol/L SODIUM 136 LAB K(LOINC) 3.5 - 5.3 mmol/L POTASSIUM 4.2 LAB CHLOR(LOIN 98 - 107 mmol/L C) CHLORIDE 105 LAB BIC(LOINC) 21 - 32 mmol/L BICARBONATE 22 LAB ANGAP(LOIN 10 - 20 mmol/L C) ANION GAP 13 LAB UREA(LOINC 6 - 23 mg/dL ) UREA NITROGEN 18 LAB CREA(LOINC 0.50 - 1.05 mg/dL ) High CREATININE 1.20 LAB GFRFN(LOIN >60 mL/min/1.7 C) 3m2 GFR-NON Abnormal AM. 45 LAB GFRAA(LOIN >60 mL/min/1.7 C) 3m2 GFR- Abnormal AM. 54 Result Comment: CALCULATIONS OF ESTIMATED GFR ARE PERFORMED USING THE MDRD STUDY EQUATION FOR THE IDMS-TRACEABLE CREATININE METHODS. CLIN CHEM 2007;53:766-72 LAB CA(LOINC) 8.6 - 10.6 mg/dL Low CALCIUM 8.1 Performed By: #### BMP #### [facility] [address] [place] [address] MAGNESIUM Collected: 05/19/2018 Status: F Source: [facility] 3:[address] [place] [address] REPOSITORY TYPE CODE TESTS RESULT OUT OF REFERENCE UNITS RANGE LAB MG(LOINC) 1.60 - 2.40 mg/dL MAGNESIUM 1.90 Performed By: #### MG #### [facility] [address] [place] [address] BASIC METABOLIC PANEL Collected: 05/19/2018 Status: CANCELLED Source: [facility] 3:50 [facility] REPOSITORY Order Comment: TEST BASIC METABOLIC PANEL WAS CANCELLED, 05/19/2018 03:50 ?Cancel Reason: Patient Discharged. TYPE CODE TESTS RESULT OUT OF REFERENCE UNITS RANGE LAB GLU(LOINC) GLUCOSE Canceled LAB SOD(LOINC) SODIUM Canceled LAB K(LOINC) POTASSIUM Canceled LAB CHLOR(LOIN C) CHLORIDE Canceled LAB BIC(LOINC) BICARBONATE Canceled LAB ANGAP(LOIN C) ANION GAP Canceled LAB UREA(LOINC ) UREA NITROGEN Canceled LAB CREA(LOINC ) CREATININE Canceled LAB GFRFN(LOIN C) GFR-NON AM. Canceled LAB GFRAA(LOIN C) GFR- AM. Canceled Result Comment: CALCULATIONS OF ESTIMATED GFR ARE PERFORMED USING THE MDRD STUDY EQUATION FOR THE IDMS-TRACEABLE CREATININE METHODS. CLIN CHEM 2007;53:766-72 LAB CA(LOINC) Canceled CALCIUM Performed By: #### BMP #### [facility] [address] [place] [address] CBC Collected: 05/19/2018 Status: CANCELLED Source: [facility] 3:50 AM HOSPITALS REPOSITORY Order Comment: TEST CBC WAS CANCELLED, 05/19/2018 03:50 ?Cancel Reason: Patient Discharged. TYPE CODE TESTS RESULT OUT OF REFERENCE UNITS RANGE LAB WBCR(LOINC ) WBC Canceled LAB NRBC(LOINC ) NUCLEATED RBC Canceled LAB RBCCT(LOIN C) RBC Canceled LAB HGB(LOINC) HGB Canceled LAB HCT(LOINC) HCT Canceled LAB MCV(LOINC) MCV Canceled LAB MCHC2(LOIN C) MCHC Canceled LAB PLTCT(LOIN C) PLT Canceled LAB RDWCV(LOIN C) RDW-CV Canceled Performed By: #### CBC #### [facility] [address] [place] [address] CBC Collected: 05/18/2018 Status: CANCELLED Source: [facility] 9:51 PM HOSPITALS REPOSITORY Order Comment: TEST CBC WAS CANCELLED, 05/18/2018 22:23 DUPLICATE ORDER see order [id number]. TYPE CODE TESTS RESULT OUT OF REFERENCE UNITS RANGE LAB WBCR(LOINC ) WBC Canceled LAB NRBC(LOINC ) NUCLEATED RBC Canceled LAB RBCCT(LOIN C) RBC Canceled LAB HGB(LOINC) HGB Canceled LAB HCT(LOINC) HCT Canceled LAB MCV(LOINC) MCV Canceled LAB MCHC2(LOIN C) MCHC Canceled LAB PLTCT(LOIN C) PLT Canceled LAB RDWCV(LOIN C) RDW-CV Canceled Performed By: #### CBC #### [facility] [address] [place] [address] CBC Collected: 05/18/2018 Status: F Source: [facility] 9:50 PM HOSPITALS REPOSITORY TYPE CODE TESTS RESULT OUT OF REFERENCE UNITS RANGE LAB WBCR(LOINC 4.4 - 11.3 x10E9/L ) WBC 10.9 LAB NRBC(LOINC 0.0-0.0 /100 WBC ) NUCLEATED RBC 0.0 LAB RBCCT(LOIN 4.00 - 5.20 x10E12/L C) RBC 4.40 LAB HGB(LOINC) 12.0 - 16.0 g/dL HGB 12.8 LAB HCT(LOINC) 36.0 - 46.0 % HCT 36.1 LAB MCV(LOINC) 80 - 100 fL MCV 82 LAB MCHC2(LOIN 32.0 - 36.0 g/dL C) MCHC 35.5 LAB PLTCT(LOIN 150 - 450 x10E9/L C) PLT 215 LAB RDWCV(LOIN 11.5 - 14.5 % C) High RDW-CV 14.9 Performed By: #### CBC #### [facility] [address] [place] [address] BASIC METABOLIC PANEL Collected: 05/18/2018 Status: F Source: [facility] 9:45 PM HOSPITALS REPOSITORY TYPE CODE TESTS RESULT OUT OF RANGE REFERENCE UNITS LAB GLU(LOINC) 74 - 99 mg/dL High GLUCOSE 169 LAB SOD(LOINC) 136 - 145 mmol/L SODIUM 136 LAB K(LOINC) 3.5 - 5.3 mmol/L POTASSIUM 4.2 LAB CHLOR(LOIN 98 - 107 mmol/L C) High CHLORIDE 108 LAB BIC(LOINC) 21 - 32 mmol/L Low BICARBONATE 18 LAB ANGAP(LOIN 10 - 20 mmol/L C) ANION GAP 14 LAB UREA(LOINC 6 - 23 mg/dL ) UREA NITROGEN 16 LAB CREA(LOINC 0.50 - 1.05 mg/dL ) High CREATININE 1.07 LAB GFRFN(LOIN >60 mL/min/1.7 C) 3m2 GFR-NON Abnormal AM. 52 LAB GFRAA(LOIN >60 mL/min/1.7 C) 3m2 GFR- AM. 63 Result Comment: CALCULATIONS OF ESTIMATED GFR ARE PERFORMED USING THE MDRD STUDY EQUATION FOR THE IDMS-TRACEABLE CREATININE METHODS. CLIN CHEM 2007;53:766-72 LAB CA(LOINC) 8.6 - 10.6 mg/dL Low CALCIUM 7.8 Performed By: #### BMP #### [facility] [address] [place] [address] ACT-LOW RANGE Collected: 05/18/2018 Status: F Source: GORIN 9:44 PM HOSPITALS REPOSITORY TYPE CODE TESTS RESULT OUT OF REFERENCE UNITS RANGE LAB ACTL(LOINC) 113 - 149 SECONDS ACT-LOW 140 RANGE Performed By: #### ACTLR #### [facility] [address] [place] [address] CLINICAL EVENT NOTE-LEFT Observed: 05/18/2018 Status: UNK Source: GORIN HEART CATHETERIZATION 8:22 PM HOSPITALS REPOSITORY Event: Topic: Left Heart Catheterization Details: Brief Interventional Cardiology Post-Procedure Note Physical Exam: - R groin with 6Fr RFA sheath sutured in place. 5Fr RFV sheath sutured in place. No hematoma. Assessment/Plan: Ms. Green is a 62 year old female with PMH significant for HTN, HLD, DM Type II and a CVA transferred from an OSH for consideration of CABG after she was found to have severe three vessel disease after presenting with chest pain and SOB. She was deemed to not be a surgical candidate. On 05/18/2018 she underwent planned via 6Fr RFA with Dr. Keith. Her LAD is a diminutive vessel but provides collaterals to a RCA HYDRANT SETTER. The first diagonal branch serves the territory of the usual LAD. Ms. Nix received overlapping Resolute Fieldon 2.0 x 30 mm and 3.0 x 22 mm JAZIEL from the middle third of the LCx into the OM3, post-dilated with a 3.0 NC balloon. She had overlapping Resolute Issa 2.0 x 30 mm and 2.5 x 34 mm JAZIEL placed from the proximal LAD into the middle third of the first diagonal branch, post-dilated with a 2.5 NC balloon. After kissing balloon inflation of the LAD/Diagonal bifurcation, OCT demonstrated severe disease in the LAD after the diagonal takeoff. Due to a desire to preserve the small LAD for a later HYDRANT SETTER intervention, the plan was to stent the middle third of the LAD and perform a mini-crush/DK crush of the bifurcation. However, it was noted that the patient was hypotensive and the towels near the arterial sheath were covered in blood. A stat POC hemoglobin was 7.2, decreased from 10.2 at 1AM the same day. The groin was inspected and was free from hematoma. Groin shot revealed an appropriate arterial puncture (this had been an anterior wall stick on the first attempt). The decision was made to forego further LAD stenting. All catheters and wires were removed. Stat bedside ECHO revealed no effusion. ACT had been out of range high at the beginning of the case, then 231 for which heparin 3,000 units was given. This was reversed with Protamine 50 mg IV. A 5Fr R CFV sheath was placed. 3 units of trauma blood were ordered. The patient received 300 mcg of phenylephrine and 1250 cc of fluid with resulting hemodynamic stability. ACT after protamine was 130. She was monitored in the pathology laboratory director for approximately 20 minutes while 2 units of blood were given. A stat type and screen and CBC were sent. She was then transferred to the CICU with her sheaths sutured in place. Recommendations: - Supportive care by CICU team. Unlikely to be RP bleed given visible blood loss from groin and appropriate arterial puncture. Transfusion to Hgb >8. (She is not actively ischemic). - Please leave in arterial and venous sheaths overnight. These can be removed in the AM. - Daily ASA 81 mg daily for life. - Reload with Plavix 300 mg PO tomorrow. Then continue Plavix 75 mg PO daily. (No further Prasugrel given CVA history). - Patient should f/u with Dr. Keith in 2-4 weeks after discharge. Plan for retrograde RCA HYDRANT SETTER intervention with Dr. Keith. No need for further intervention at this time. Please do not hesitate to contact me with any questions. Case discussed with patient and Dr. Keith. Pauline Sharma MD Interventional Bulk Picker, [id number] Electronic Signatures: Pauline Sharma ( (Fellow)) (Signed 18-May-2018 20:39) Authored: Event Last Updated: 18-May-2018 20:39 by Pauline Sharma ( (Fellow)) ACT-LOW RANGE Collected: 05/18/2018 Status: F Source: G[facility]IN 7:23 PM HOSPITALS REPOSITORY TYPE CODE TESTS RESULT OUT OF REFERENCE UNITS RANGE LAB ACTL(LOINC) 113 - 149 SECONDS ACT-LOW 133 RANGE Performed By: #### ACTLR #### [facility] [address] [place] [address] TYPE + SCREEN Collected: 05/18/2018 Status: F Source: G[facility]IN 7:01 PM HOSPITALS REPOSITORY TYPE CODE TESTS RESULT OUT OF REFERENCE UNITS RANGE LAB ABORH(LOINC ) ABO TYPE A LAB RH(LOINC) RH TYPE POS LAB ABSC(LOINC) ANTIBODY NEG SCREEN Performed By: #### T+S #### [facility] [address] [place] [id number] ACT-LOW RANGE Collected: 05/18/2018 Status: F Source: [facility]IN 6:32 PM HOSPITALS REPOSITORY TYPE CODE TESTS RESULT OUT OF REFERENCE UNITS RANGE LAB ACTL(LOINC) 113 - 149 SECONDS High ACT-LOW 231 RANGE Performed By: #### ACTLR #### [facility] [address] [place] [id number] CARDIAC CATHETERIZATION Observed: 05/18/2018 Status: F Source: G[facility]IN LAB PROCEDURES 4:46 PM HOSPITALS REPOSITORY [facility], [place], [address] [place] [address] Cardiovascular Catheterization Report Patient Name: DAVINA GREEN Performing Physician: [id number] Stanley Keith MD.PhD Study Date: 05/18/2018 Verifying Physician: [id number] Stanley Keith MD.PhD MRN/PID: [id number] [address] [place]: Accession/Order#: [id number] Fellow: Pauline Sharma MD Date of : 1955 Fellow: Gender: F Referring Physician: Admit Date: Referring Physician: [id number] Nick Rm MD Surgeon: Referring Physician: DELFINO Study: Left Heart Catheterization Additional Study: Coronary Arteriogram Additional Study: OCT - Optical Coherence Tomography Additional Study: PCI - Percutaneous Coronary Intervention Indications: DAVINA GREEN is a 63 year old female who presents with dyslipidemia, hypertension, cerebrovascular accident, peripheral artery disease, Tobacco Use - Former and diabetes. The diagnostic catheterization was performed as an elective procedure. Progressive angina was cited as a reason for the diagnostic cath procedure. The PCI was performed as an elective procedure. Procedure Description: After infiltration with 2% Lidocaine, the right femoral artery was cannulated with a modified Seldinger technique. Subsequently a 6 Omani sheath was placed retrograde in the right femoral artery. After infiltration of local anesthetic, the right femoral vein was cannulated with a micropuncture technique. A 5 [place]mani sheath was placed in the vein. Selective coronary catheterization was performed using a 6 Fr catheter(s) exchanged over a guide wire to cannulate the coronary arteries. Additional catheter(s) used to visualize the coronary arteries were: EBU 3.5 guide. After completion of the procedure, the arterial sheath was left intact and sutured in place. Post-procedure, the venou s sheath was left intact and sutured in place. Coronary Angiography: The coronary circulation is right dominant. Left Main Coronary Artery: The left main coronary artery is a normal caliber vessel. The left main arises normally from the left coronary sinus of Valsalva and bifurcates into the LAD and circumflex coronary arteries. The left ma in coronary artery showed no significant disease or stenosis greater than 30%. Left Anterior Descending Coronary Artery Distribution: The left anterior descending coronary artery is a normal caliber vessel. The LAD arises normally from the left main coronary artery. The LAD demonstrated atherosclerotic disease. The LAD is a small jose arya vessel that gives rise to a large caliber first diagonal branch. The diminutive LAD proper gives collaterals from the LAD to the RCA HYDRANT SETTER. The myocardium usually supplied by the LAD, is supplied larg ariella by D1. There is severe diffuse disease of the proximal and inferior subdivision of D1. There is also severe disease of the middle third of the small LAD after the takeoff of D1. Circumflex Coronary Artery Distribution: The circumflex coronary artery is a normal caliber vessel. The circumflex arises normally from the left main coronary artery and terminates in the AV groove. The circumflex revealed atherosclerotic dise ase. The LCx is a large caliber, likely co-dominant vessel. It gives rise to a diminutive OM1, a large caliber OM2, a large caliber OM3 and a small caliber OM4. There is severe diffuse disease of the mi ddle third of the LCx extending into the proximal portion of OM3. There is a 70- 80% narrowing of the distal LCx, immediately after the takoff of OM3. The remainder of the OM branches have only mild diffuse disease. Coronary Interventions: Angiography reveals a 90% stenosis of the Mid-LCx. Pre-intervention KIMBERLI flow was 3. Percutaneous coronary intervention was performed within the Mid-LCx. The vessel was pre-dilated using a compliant bal loon 2.0 mm x 30 mm at 12 MARY ANN. Resolute Issa drug-eluting stent 2.0 mm x 30 mm was advanced to the lesion and implanted at 8 MARY ANN. A second Resolute Issa drug- eluting stent 3.0 mm x 22 mm was implanted i n overlap at 14 MARY ANN. The stent was post dilated using a non-compliant balloon 3.0 mm x 12 mm at 24 MARY ANN. Additional dilatation was performed using a non-compliant balloon 2.25 mm x 20 mm at 18 MARY ANN. The s tenosis was successfully reduced from 90% to <10%. Post-intervention KIMBERLI flow was 3. Angiography reveals an 90% stenosis of the middle third of the LAD. Pre-intervention KIMBERLI flow was 3. Percutaneous coronary intervention was performed within the middle third of the LAD. The vessel was pre-dilated using a compliant balloon 2.0 mm x 30 mm at 5 MARY ANN. Resolute Issa drug- eluting stent 2.0 mm x 30 mm was advanced to the lesion and implanted at 8 MARY ANN. A second Resolute Fieldon drug-eluting sten t 2.5 mm x 34 mm was implanted in overlap at 10 MARY ANN. The stent was post dilated using a non-compliant balloon 2.5 mm x 12 mm at 14 MARY ANN. Additional dilatation was performed using a non-compliant balloon 3.0 mm x 6 mm at 8 MARY ANN. The stenosis was successfully reduced from 90% to <10%. Post intervention Optical Coherence Tomography (OCT) was performed within the middle third of the LAD. Post-interventio n KIMBERLI flow was 3. The LAD was re-wired after stent deployment and post-dilations. A second Run Through was placed through the struts into the distal LAD. Kissing balloon inflations with a Euphora 2 x 2 0 mm balloon (LAD) and a Euphora 2.5 x 15 mm balloon (D1) occurred simultaneously at 8 atmospheres for 15 seconds. Coronary Intervention Comments: After kissing balloon inflation of the LAD/Diagonal bifurcation, OCT demonstrated severe disease in the LAD after the diagonal takeoff. Due to a desire to preserve the small LAD for a later HYDRANT SETTER interven tion, the plan was to stent the middle third of the LAD and perform a mini-crush/DK crush of the bifurcation. However, it was noted that the patient was hypotensive and the towels near the arterial mayers th were covered in blood. A stat POC hemoglobin was 7.2, decreased from 10.2 at 1AM the same day. The groin was inspected and was free from hematoma. Groin shot revealed an appropriate arterial puncture (this had been an anterior wall stick on the first attempt). The decision was made to forego further LAD stenting. All catheters and wires were removed. Stat bedside ECHO revealed no effusion. ACT had been out of range high at the beginning of the case, then 231 for which heparin 3,000 units was given. This was reversed with Protamine 50 mg IV. A 5Fr R CFV sheath was placed. 3 units of trauma blood w ere ordered. The patient received 300 mcg of phenylephrine and 1250 cc of fluid with resulting hemodynamic stability. ACT after protamine was 130. She was monitored in the pathology laboratory director for approximately 20 minutes while 2 units of blood were given. A stat type and screen and CBC were sent. She was then transferred to the CICU with her sheaths sutured in place. Hemo Personnel: + + + Name Duty + + + Stanley Keith MD, MD 1 + + + Mehul Hancock RN PROC CIRC 1 + + + Poli Gómez RN PROC CIRC 2 + + + Shanna Cutler PROC RECORD 1 + + + Jazmine Gary RN PROC RECORD 2 + + + Dionisio Jeffery RN PROC NURSE 1 + + + Zachary Carpenter MD FELLOW PHYS 1 + + + Sedation Time: + + + Sedation Start/End TimesTime + + + Start 05/18/2018 17:11:22 + + + End 05/18/2018 19:13:58 + + + Drugs Fentanyl 50 mcg IV per Physician + + + Equipment Used: + + + Date/Time Description + + + 05/18/2018 5:22:22 PM{Contrast} - Optiray 350 100ml - Qty: 1 Each Part #: 841 + + + 05/18/2018 5:22:26 PM {Contrast} - Visipaque 320 [place] 50ml - Qty: 1 Each Part #: 847 + + + 05/18/2018 5:34:51 PM {6F Sheaths} - Ultimum introducer 6 Fr x 12cm - Qty: 1 Each Part #: 262 + + + 05/18/2018 7:03:21 PM {4F Sheaths} - 4 Fr Transitionless Micropuncture Set - Qty: 1 Each Part #: 11 + + + 05/18/2018 7:03:27 PM {5F Sheaths} - Ultimum introducer 5 Fr x 12cm - Qty: 1 Each Part #: 74 + + + Fluoroscopy Time: + +---------+ X-Ray Summary Fluoro Time:34.60 min + +---------+ + +---------+ Contrast: Dose: + +---------+ Optiray_300:239.00 ml + +---------+ Hemodynamic Pressures: +----+ + + + +---------+ Site Date Time Phase NameSystolic mmHgDiastolic mmHgMean mmHg +----+ + + + +---------+ 05/18/2018 5:20:12 PM Rest 126 55 81 +----+ + + + +---------+ 05/18/2018 5:28:34 PM Rest 107 70 88 +----+ + + + +---------+ 05/18/2018 5:45:09 PM Rest 157 83 115 +----+ + + + +---------+ 05/18/2018 5:53:17 PM Rest 92 69 82 +----+ + + + +---------+ AO05/18/2018 5:55:20 PM Rest 85 64 75 +----+ + + + +---------+ 05/18/2018 5:57:33 PM Rest 118 66 89 +----+ + + + +---------+ 05/18/2018 5:58:10 PM Rest 125 71 95 +----+ + + + +---------+ 05/18/2018 6:17:48 PM Rest 135 67 94 +----+ + + + +---------+ AO05/18/2018 6:20:50 PM Rest 115 65 86 +----+ + + + +---------+ AO05/18/2018 6:31:14 PM Rest 87 48 62 +----+ + + + +---------+ 05/18/2018 6:33:22 PM Rest 70 44 55 +----+ + + + +---------+ 05/18/2018 6:34:03 PM Rest 45 29 35 +----+ + + + +---------+ AO05/18/2018 6:36:26 PM Rest 63 41 50 +----+ + + + +---------+ AO12/ 6:37:00 PM Rest 105 67 83 +----+ + + + +---------+ 05/18/2018 6:44:11 PM Rest 94 57 74 +----+ + + + +---------+ 05/18/2018 6:50:01 PM Rest 73 36 50 +----+ + + + +---------+ 05/18/2018 6:57:08 PM Rest 109 44 58 +----+ + + + +---------+ 05/18/2018 7:04:57 PM Rest 93 48 63 +----+ + + + +---------+ AO05/18/2018 7:09:50 PM Rest 122 56 79 +----+ + + + +---------+ 05/18/2018 7:12:24 PM Rest 112 57 79 +----+ + + + +---------+ 05/18/2018 7:18:36 PM Rest 121 60 84 +----+ + + + +---------+ Oxygen Saturation %: + + + Sample SiteHB (g/100ml) + + + SYS ART 10.2 + + + SYS TIM 10.2 + + + PUL ART 10.2 + + + PUL TIM 10.2 + + + Interventional Equipment: + + Description + + {Euphora RX Balloons} - Euphora RX 2.00mm x 30mm - Qty: 1 Each Part #: 1057 + + {NC Euphora Balloons} - NC Euphora 2.0mm x 20mm - Qty: 1 Each Part #: 992 + + {Resolute Issa RX JAZIEL} - Fieldon RX JAZIEL Stent 3.0mm x 22mm - Qty: 1 Each Part #: 2531 + + {Resolute Issa RX JAZIEL} - Fieldon RX JAZIEL Stent 2.0mm x 30mm - Qty: 1 Each Part #: 2515 + + {6F Guiders} - 6 Fr EBU3.5 x 100cm Sonny Guider - Qty: 1 Each Part #: 148 + + {Interventional Wires} - RunThrough NS .014mm x 180cm - Qty: 2 Each Part #: 1439 + + {Resolute Issa RX JAZIEL} - Issa RX JAZIEL Stent 2.0mm x 30mm - Qty: 1 Each Part #: LOT [id number] + + {Resolute Fieldon RX JAZIEL} - Issa RX JAZIEL Stent 2.5mm x 34mm - Qty: 1 Each Part #: 2516 + + {NC Euphora Balloons} - NC Euphora 2.5mm x 12mm - Qty: 1 Each Part #: 1000 + + {Euphora RX Balloons} - Euphora RX 3.00mm x 6mm - Qty: 1 Each Part #: 1075 + + {Emerge Balloons} - Emerge MR 2.0mm x 20mm - Qty: 1 Each Part #: + + {Resolute Issa RX JAZIEL} - Fieldon RX JAZIEL Stent 2.0mm x 18mm - Qty: 1 Each Part #: + + Complications: 3 gram hemoglobin decrease requiring transfusion of 3 units of PRBCs. Cardiac Cath Transition of Care Summary: Post Procedure Diagnosis: Severe multivessel CAD. Blood Loss: Estimated blood loss during the procedure was 3 grams of hemoglobin mls. Specimens Removed: Number of specimen(s) removed: none. CONCLUSIONS: 1. Successful deployment of overlapping Resolute Issa 2.0 x 30 mm and 3.0 x 22 mm JAZIEL from the middle third of the LCx into the OM3, post-dilated with a 3.0 NC balloon. 2. Successful deployment of overlapping Resolute Issa 2.0 x 30 mm and 2.5 x 34 mm JAZIEL placed from the proximal LAD into the middle third of the first diagonal branch, post-dilated with a 2.5 NC balloon. 3. Plan for retrograde RCA HYDRANT SETTER intervention in 1 month. 4. Patient was hypotensive and developed acute blood loss anemia during the procedure (see coronary intervention comments). She was subsequently transferred to the CICU in stable condition. 5. ASA 81 mg daily for life. Plavix 75 mg daily. 6. Patient to follw-up with Dr. Keith as an outpatient for RCA HYDRANT SETTER intervention. 7. 3 gram hemoglobin decrease requiring transfusion of 3 units of PRBCs. CPT Codes: Left Heart Cath Coronary angio w/wo ventriculography ([facility])- 00318; Moderate Sedation Services initial 15 minutes patient >5 years-61981; Moderate Sedation Services 1st additional 15 minutes patient &g t;5 years-; Moderate Sedation Services 2nd additional 15 minutes patient >5 years-; Moderate Sedation Services 3rd additional 15 minutes patient >5 years-; Moderate Sedation Service s 4th additional 15 minutes patient >5 years-; Moderate Sedation Services 5th additional 15 minutes patient >5 years-; Moderate Sedation Services 6th additional 15 minutes patient >5 years-79334; Moderate Sedation Services 7th additional 15 minutes patient >5 years- 72246; Moderate Sedation Services 8th additional 15 minutes patient >5 years- 87935; Stent w angio ather Left Circ umflex addl branch major Artery (PCI)-43002.LC; Stent w angio ather Left Anterior Descending addl branch major Artery (PCI)-67155.LD; OCT Initial Vessel (coronary [place] vessel or graft) during diagnost ic evaluation and/or therapeutic intervention, initial vessel-66878 ICD 10 Codes: I25.83-Coronary atherosclerosis due to lipid rich plaque [id number] Stanley Keith MD.PhD Performing Physician cc Report to: NA cc Report to: [id number] Nick Rm MD cc Report to: NA Final DAILY PROGRESS Observed: 05/18/2018 Status: COMPLETED Source: UNIVERSITY NOTE-CARDIOLOGY 2:19 PM HOSPITALS REPOSITORY Service: Cardiology Subjective Data: DAVINA GREEN is a 62 year old Female who is Hospital Day # 9. Additional Information: Uneventful night - For PCI with Dr. Keith today Objective Data: Objective Information: ---- Intake and Output ----- Mn/Dy/Year TimeIntakeOutputNet May 18, 2018 2:00 [id number] May 18, 2018 6:00 [id number] The Intake and Output Totals for the last 24 hours are: IntakeOutputNet [id number] [id number]/7596% Date/Time05/18 11: 11: 11: 11: 11:36 Range(36.8C - 37.3C ) (88 - 100 ) (18 - 20 ) (102 - 143 )/ (68 - 75 ) (92% - 96% ) Highest temp of 37.3 C was recorded at 05/18 7:39 Physical Exam: Constitutional: lying in bed in NAD Head/Neck: no JVD Respiratory/Thorax: CTAB Cardiovascular: RRR, S1S2, soft CADENCE Gastrointestinal: soft, ND/NT Extremities: no LE edema Neurological: no focal deficits Psychological: Appropriate mood and behavior Skin: Warm and dry Medication: Medications: Continuous Medications No continuous medications are active Scheduled Medications 1. Aspirin Chewable: 81 mg Oral Daily 2. Atorvastatin: 40 mg Oral Daily 3. busPIRone (BUSPAR): 5 mg Oral Every 8 Hours 4. Carvedilol: 3.125 mg Oral 2 Times a Day 5. Docusate 50 mg - Senna 8.6 m tablet(s) Oral 2 Times a Day 6. Enoxaparin SubCutaneous: 40 mg SubCutaneous Every 24 Hours 7. hydrALAZINE: 25 mg Oral Every 8 Hours 8. Insulin Glargine (Lantus) Injectable: 6 unit(s) SubCutaneous Every 24 Hours 9. Insulin Lispro Mild Corrective Scale: unit(s) SubCutaneous 3 Times a Day Before Meals 10. [place]-3 Acid Ethyl Esters: 2 gram(s) Oral 2 Times a Day 11. Sodium Chloride 0.9% Injectable Flush: 10 mL IntraVenous Flush Every 12 Hours PRN Medications 1. Acetaminophen: 650 mg Oral Every 4 Hours 2. Albuterol 2.5 mg/ 3 mL Nebulizer Soln: 3 mL Inhalation Every 4 Hours 3. Dextrose 50% in Water Injectable: 25 gram(s) IntraVenous Push Every 15 Minutes 4. Glucagon Injectable: 1 mg IntraMuscular Every 15 Minutes 5. Heparin Flush 10 unit/ mL PF Injectable: 5 mL IntraVenous Flush Every 12 Hours 6. Heparin Flush 10 unit/ mL PF Injectable PRN: 5 mL IntraVenous Flush According to Flush Policy 7. Lidocaine 1% Injectable (PICC KIT): 1 mL IntraDermal Once 8. LORazepam: 0.25 mg Oral Every 12 Hours 9. Ondansetron Injectable: 4 mg IntraVenous Push Every 6 Hours 10. oxyCODONE 5 mg - Acetaminophen 325 m tablet(s) Oral Every 4 Hours 11. Sodium Chloride 0.9% Injectable Flush PRN: 10 mL IntraVenous Flush According to Flush Policy 12. Sodium Chloride 0.9% Injectable Flush PRN: 20 mL IntraVenous Flush According to Flush Policy Conditional Medication Orders 1. Perflutren Lipid Microsphere (Activated) 1.3 mL / NaCL 0.9% T.V. 10 mL Injectable: 0.5 mL IntraVenous Push Once Recent Lab Results: Results: I have reviewed these laboratory results: Glucose_POCT Trending View [id number] 12:25:00 18-May-2018 06:03:00 17-May-2018 21:43:00 17-May-2018 16:28:00 Glucose-[id number] H 132 H 197 H 111 H Complete Blood Count 18-May-2018 01:29:00 ResultValue White Blood Cell Count 9.4 Nucleated Erythrocyte Count 0.0 Red Blood Cell Count 3.58 L HGB 10.2 L HCT 31.3 L MCV 87 MCHC 32.6 PLT 285 RDW-CV 14.9 H Basic Metabolic Panel 17-May-2018 21:09:00 ResultValue Glucose, Serum 225 H NA 134 L K 4.3 CL 101 Bicarbonate, Serum 26 Anion Gap, Serum 11 BUN 19 CREAT 1.17 H GFR-Non 47 A GFR- 57 A Calcium, Serum 8.7 Hemoglobin A1C, Level 17-May-2018 08:07:00 ResultValue Estimated Average Glucose 134 Hemoglobin A1C, Level 6.3 Diagnosis of Diabetes-Adults Non-Diabetic: < or = 5.6% Increased risk for developing diabetes: 5.7-6.4% Diagnostic of diabetes: > or = 6.5% . Monitoring of Diabetes Age (y) Therapeutic Goal (%) Adults: >1 Free Thyroxine, Serum 17-May-2018 08:07:00 ResultValue Free Thyroxine, Serum 1.40 Thyroid Stimulating Hormone, Serum 17-May-2018 08:07:00 ResultValue Thyroid Stimulating Hormone, Serum 2.82 Radiology Results: Results: Impression: MRI Cardiac w/wo contrast for Morph/Funct and Valve Dz [May 15 2018 4:06PM] Impression: Lucent changes about the region of the prior left maxillary canine are 1st premolar tooth. There is also subtle periapical lucent changes about the left maxillary 3rd molar wisdom tooth. Periapical abscesses cannot be excluded. Clinical correlation with dental exam is recommended. Xray Orthopantogram [May 15 2018 9:08AM] Assessment and Plan: Assessment: 62 y/o female with a h/o HTN, HLD, and type II DM who presented with SOB and chest pain, found to have severe 3-vessel disease and transferred to [facility] for CABG evaluation. 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 - Cardiac surg consult: appreciate assistance. Tentatively planned for surgical revascularization 05/18, 2nd case - consulted Dental/OMFS: plans for extraction tomorrow at 11am - Cardiac MRI: LVEF 37%, delayed subendocardial enhancement of the base and mid inferior wall involving up to 50% of the myocardial thickness in keeping with the sequela of infarction in the RCA territory with component of viable myocardium. No other areas of delayed enhancement is identified in the LAD or LCx territory. - plavix loaded, last dose 05/10, will be reloaded with plavix in pathology laboratory director - cont BB, statin, ASA - plan for PCI today with Dr. Keith PAD - s/p Left CEA in setting of CVA - vascular surgery consulted pre-op - carotid duplex: R: < 50% stenosis, L >50% stenosis - ABIs: R ratio 0.66, 0.70, L ratio 0.59 - brachial pressure 124mmHg on right and 103mmHg on left - CTA head and neck: Severe stenosis at the origin of the left internal carotid artery. Moderate narrowing at the proximal right common carotid artery - Vasc f/u in one month with Dr. Jimenez at [facility] Acute systolic and diastolic HF - TTE 05/14: LVEF 35%, DD, Mild LVH, Mild to mod MR, Mild to mod TR - Volume overloaded and diuresed at OSH - 05/11 CXR no acute processes - presently well compensated - Daily standing weights, strict I&O's, 2g sodium diet, 2L fluid restriction - Cont BB - was previously on lisinopril, stopped prior to surgery, now with plan change consider restarting VHD - mild to mod MR Leukocytosis, resolved - WBCs today 9.4 (8.9) (8.2) (12.3) (13.9) (14.4) - afebrile, no obvious source of infection - UA neg Abdominal pain/ N/ V, resolved - PRN zofran - KUB neg HTN - SBP over last 24hrs 100 - 140 - cont hydral 25 TID, carvedilol 3.125mg BID - c/s transitioning back to Lisinopril given no longer plan for CABG Hyperlipidemia - cont statin Type II DM - Home dose insuline glargine 18units, was receiving 12 units while inpatient, will give 6units while NPO at [place] - ISS, accuhecks - 05/11 Hgb A1C 6.6% - BS 154, 111, 197, 132 Tobacco abuse - poor dentition, s/p extraction 10 teeth - PFT's Full code DVT ppx: subcutaneous lovenox Disp - Plan discharge home tomorrow s/p PCI Seen and discussed with Dr. Rm Signature/Cosignature/Attestation: Comments/ Additional Findings I have interviewed and examined the patient and the documentation above reflects my edited findings and plans. Nick Rm MD, [facility] Electronic Signatures: Jenny Leggett (COMMUNICATIONS PROGRAM MANAGER-CREDIT CONTROL ADMINISTRATOR) (Signed 18-May-2018 14:40) Authored: Service, Subjective Data, Objective Data, Assessment and Plan, Signature/Cosignature/Attestation Brittany Rm) (Signed 04-Jun-2018 12:07) Authored: Signature/Cosignature/Attestation Co-Signer: Service, Subjective Data, Objective Data, Assessment and Plan, Signature/Cosignature/Attestation Last Updated: 04-Jun-2018 12:07 by Brittany Rm) CLINICAL EVENT Observed: 05/18/2018 Status: UNK Source: UNIVERSITY NOTE-CARDIAC SURGERY 1:22 PM HOSPITALS REPOSITORY Event: Topic: Cardiac surgery Details: Dr Rm recommended PCI instead of CABG and d/w interventional cardiology Dr Monteiro. Dr Melgar aware and in agreement to pursue PCI instead of CABG given patients risk with CABG. Primary team stated 05/17 that PCI was planned for 05/18. CABG for 05/[address] Melgar. Provider / Team Contact Information: Provider/Team Contact Info-Pager Number: [phone] surgery [phone] Electronic Signatures: Jovani Guerrero (COMMUNICATIONS PROGRAM MANAGER-CREDIT CONTROL ADMINISTRATOR) (Signed 18-May-2018 13:25) Authored: Event, Provider / Team Contact Information Last Updated: 18-May-2018 13:25 by Jovani Guerrero (COMMUNICATIONS PROGRAM MANAGER-CREDIT CONTROL ADMINISTRATOR) GLUCOSE-POCT Collected: 05/18/2018 Status: F Source: [facility]IN 12:25 PM HOSPITALS REPOSITORY TYPE CODE TESTS RESULT OUT OF RANGE REFERENCE UNITS LAB GLUP(LOINC) 74 - 99 mg/dL High 117 GLUCOSE-POCT Performed By: #### GLUPO #### [facility] [address] [place] [address] GLUCOSE-POCT Collected: 05/18/2018 Status: F Source: GORIN 6:03 AM HOSPITALS REPOSITORY TYPE CODE TESTS RESULT OUT OF RANGE REFERENCE UNITS LAB GLUP(LOINC) 74 - 99 mg/dL High 132 GLUCOSE-POCT Performed By: #### GLUPO #### [facility] [address] [place] [address] CBC Collected: 05/18/2018 Status: F Source: [facility] 1:29 AM HOSPITALS REPOSITORY TYPE CODE TESTS RESULT OUT OF REFERENCE UNITS RANGE LAB WBCR(LOINC 4.4 - 11.3 x10E9/L ) WBC 9.4 LAB NRBC(LOINC 0.0-0.0 /100 WBC ) NUCLEATED RBC 0.0 LAB RBCCT(LOIN 4.00 - 5.20 x10E12/L C) Low RBC 3.58 LAB HGB(LOINC) 12.0 - 16.0 g/dL Low HGB 10.2 LAB HCT(LOINC) 36.0 - 46.0 % Low HCT 31.3 LAB MCV(LOINC) 80 - 100 fL MCV 87 LAB MCHC2(LOIN 32.0 - 36.0 g/dL C) MCHC 32.6 LAB PLTCT(LOIN 150 - 450 x10E9/L C) PLT 285 LAB RDWCV(LOIN 11.5 - 14.5 % C) High RDW-CV 14.9 Performed By: #### CBC #### [facility] [address] [place] [address] GLUCOSE-POCT Collected: 05/17/2018 Status: F Source: [facility]ORIN 9:43 PM HOSPITALS REPOSITORY TYPE CODE TESTS RESULT OUT OF RANGE REFERENCE UNITS LAB GLUP(LOINC) 74 - 99 mg/dL High 197 GLUCOSE-POCT Performed By: #### GLUPO #### [facility] [address] [place] [address] CBC Collected: 05/17/2018 Status: CANCELLED Source: [facility] 9:09 PM HOSPITALS REPOSITORY Order Comment: TEST CBC WAS CANCELLED, 05/17/2018 22:44 LAB ERROR, LAV GOT SPUN. TYPE CODE TESTS RESULT OUT OF REFERENCE UNITS RANGE LAB WBCR(LOINC ) WBC Canceled LAB NRBC(LOINC ) NUCLEATED RBC Canceled LAB RBCCT(LOIN C) RBC Canceled LAB HGB(LOINC) HGB Canceled LAB HCT(LOINC) HCT Canceled LAB MCV(LOINC) MCV Canceled LAB MCHC2(LOIN C) MCHC Canceled LAB PLTCT(LOIN C) PLT Canceled LAB RDWCV(LOIN C) RDW-CV Canceled Performed By: #### CBC #### [facility] [address] [place] [address] BASIC METABOLIC PANEL Collected: 05/17/2018 Status: F Source: GORIN 9:09 HOSPITALS REPOSITORY TYPE CODE TESTS RESULT OUT OF RANGE REFERENCE UNITS LAB GLU(LOINC) 74 - 99 mg/dL High GLUCOSE 225 LAB SOD(LOINC) 136 - 145 mmol/L Low SODIUM 134 LAB K(LOINC) 3.5 - 5.3 mmol/L POTASSIUM 4.3 LAB CHLOR(LOIN 98 - 107 mmol/L C) CHLORIDE 101 LAB BIC(LOINC) 21 - 32 mmol/L BICARBONATE 26 LAB ANGAP(LOIN 10 - 20 mmol/L C) ANION GAP 11 LAB UREA(LOINC 6 - 23 mg/dL ) UREA NITROGEN 19 LAB CREA(LOINC 0.50 - 1.05 mg/dL ) High CREATININE 1.17 LAB GFRFN(LOIN >60 mL/min/1.7 C) 3m2 GFR-NON Abnormal AM. 47 LAB GFRAA(LOIN >60 mL/min/1.7 C) 3m2 GFR- Abnormal AM. 57 Result Comment: CALCULATIONS OF ESTIMATED GFR ARE PERFORMED USING THE MDRD STUDY EQUATION FOR THE IDMS-TRACEABLE CREATININE METHODS. CLIN CHEM 2007;53:766-72 LAB CA(LOINC) 8.6 - 10.6 mg/dL CALCIUM 8.7 Performed By: #### BMP #### [facility] [address] [place] [id number] CLINICAL EVENT Observed: 05/17/2018 Status: UNK Source: [facility] NOTE-EXTRACTIONS IN OMFS 5:03 PM HOSPITALS REPOSITORY CLINIC Event: Topic: Extractions in [facility] Clinic Details: Pt transported to [facility] clinic via [facility] transportation for extraction tooth #5,6,7,16,19,21,22,23,30,31 per dental consultation. Discussed r/b/a. Consented. Administered 1.7mL x 4 articaine. Throat screen, bite block. FTMP flap. Standard elevator, forceps method used for extraction of teeth. Curettage of sockets. Bony contour smoothed with rongeur and bone file. Copious NS irrigation. Patient instructed to bite on gauze for hemostasis. POIG verbally and in writing. - See instruction list given to pt for post-op instructions - avoid straws, forceful spitting, bite on gauze if bleeding occurs after extraction (expected for 12-25hrs after extraction), puree/full liquid diet for 24 hours then can return to normal diet as tolerated - Continue pain regimen per primary team - continue ABX - if bleeding/oozing from sockets continue order tranexamic, apply to gauze, have pt bit on gauze TID until d/c slow bleeding from socket Roland Matta [facility] PGY1 Pager [phone] Electronic Signatures: Roland Matta (DMD) (Signed 17-May-2018 17:13) Authored: Event Mani Desai) (Signed 04-Jun-2018 09:23) Co-Signer: Event Last Updated: 04-Jun-2018 09:23 by Mani Desai) GLUCOSE-POCT Collected: 05/17/2018 Status: F Source: GORIN 4:28 PM HOSPITALS REPOSITORY TYPE CODE TESTS RESULT OUT OF RANGE REFERENCE UNITS LAB GLUP(LOINC) 74 - 99 mg/dL High 111 GLUCOSE-POCT Performed By: #### GLUPO #### [facility] [address] [place] [address] DAILY PROGRESS Observed: 05/17/2018 Status: COMPLETED Source: [facility] NOTE-CARDIOLOGY 3:22 PM HOSPITALS REPOSITORY Service: Cardiology Subjective Data: DAVINA GREEN is a 62 year old Female who is Hospital Day # 8. Additional Information: Patient feeling well. Lost IV access overnight, midline to be placed today. Had ten teeth extracted today, oozing from site, no SARA. Plan for PCI with Dr. Keith tomorrow. - midline placement - teeth extraction in AM - PCI tomorrow Objective Data: Objective Information: T PRBPSpO2 [id number]% Date/Time05/17 13: 13: 13: 13: 13:03 Range(36.2C - 37C ) (83 - 95 ) (18 - 20 ) (108 - 133 )/ (64 - 81 ) (94% - 98% ) Highest temp of 37 C was recorded at 05/17 13:03 Weights 05/17 9:28: Weight in kg (Weight (kg)) 63.4 05/17 9:28: Weight in lbs ((lbs)) 139.9 ---- Intake and Output ----- Mn/Dy/Year TimeIntakeOutputNet May 17, 2018 6:00 [id number] May 16, 2018 10:00 [id number] The Intake and Output Totals for the last 24 hours are: [facility] [id number] Physical Exam: Constitutional: lying in bed in NAD ENMT: poor dentition Head/Neck: no JVD seen Respiratory/Thorax: CTAB Cardiovascular: RRR, S1S2, soft CADENCE Gastrointestinal: soft, ND/NT Extremities: no LE edema Neurological: no focal deficits Psychological: Appropriate mood and behavior Skin: Warm and dry Medication: Medications: Continuous Medications No continuous medications are active Scheduled Medications 1. Aspirin Chewable: 81 mg Oral Daily 2. Atorvastatin: 40 mg Oral Daily 3. busPIRone (BUSPAR): 5 mg Oral Every 8 Hours 4. Carvedilol: 3.125 mg Oral 2 Times a Day 5. Chlorhexidine Gluconate 0.12% Mucous Mem: 15 mL Topical Morning and Evening 6. Docusate 50 mg - Senna 8.6 m tablet(s) Oral 2 Times a Day 7. hydrALAZINE: 25 mg Oral Every 8 Hours 8. Insulin Glargine (Lantus) Injectable: 12 unit(s) SubCutaneous Daily 9. Insulin Lispro Mild Corrective Scale: unit(s) SubCutaneous 3 Times a Day Before Meals 10. Mupirocin 2%: 0.5 application(s) Each Nostril 2 Times a Day 11. [place]-3 Acid Ethyl Esters: 2 gram(s) Oral 2 Times a Day 12. Sodium Chloride 0.9% Injectable Flush: 10 mL IntraVenous Flush Every 12 Hours PRN Medications 1. Acetaminophen: 650 mg Oral Every 4 Hours 2. Albuterol 2.5 mg/ 3 mL Nebulizer Soln: 3 mL Inhalation Every 4 Hours 3. Dextrose 50% in Water Injectable: 25 gram(s) IntraVenous Push Every 15 Minutes 4. Glucagon Injectable: 1 mg IntraMuscular Every 15 Minutes 5. Heparin Flush 10 unit/ mL PF Injectable: 5 mL IntraVenous Flush Every 12 Hours 6. Heparin Flush 10 unit/ mL PF Injectable PRN: 5 mL IntraVenous Flush According to Flush Policy 7. Lidocaine 1% Injectable (PICC KIT): 1 mL IntraDermal Once 8. LORazepam: 0.25 mg Oral Every 12 Hours 9. Ondansetron Injectable: 4 mg IntraVenous Push Every 6 Hours 10. oxyCODONE 5 mg - Acetaminophen 325 m tablet(s) Oral Every 4 Hours 11. Sodium Chloride 0.9% Injectable Flush PRN: 10 mL IntraVenous Flush According to Flush Policy 12. Sodium Chloride 0.9% Injectable Flush PRN: 20 mL IntraVenous Flush According to Flush Policy Conditional Medication Orders 1. Perflutren Lipid Microsphere (Activated) 1.3 mL / NaCL 0.9% T.V. 10 mL Injectable: 0.5 mL IntraVenous Push Once Currently Suspended Medications 1. Enoxaparin SubCutaneous: 40 mg SubCutaneous Every 24 Hours Recent Lab Results: Results: I have reviewed these laboratory results: Free Thyroxine, Serum 17-May-2018 08:07:00 ResultValue Free Thyroxine, Serum 1.40 Thyroid Stimulating Hormone, Serum 17-May-2018 08:07:00 ResultValue Thyroid Stimulating Hormone, Serum 2.82 Glucose_POCT Trending View [id number] 08:03:00 16-May-2018 21:31:00 16-May-2018 19:24:00 16-May-2018 14:44:00 16-May-2018 08:36:00 16-May-2018 07:56:00 [id number] H 214 H 117 H 130 H 160 H 74 Complete Blood Count 16-May-2018 19:26:00 ResultValue White Blood Cell Count 8.9 Nucleated Erythrocyte Count 0.0 Red Blood Cell Count 3.88 L HGB 11.2 L HCT 36.2 MCV 93 MCHC 30.9 L PLT 276 RDW-CV 15.0 H Basic Metabolic Panel 16-May-2018 19:26:00 ResultValue Glucose, Serum 107 H NA 134 L K 4.2 CL 101 Bicarbonate, Serum 24 Anion Gap, Serum 13 BUN 24 H CREAT 1.19 H GFR-Non 46 A GFR- 56 A Calcium, Serum 9.3 Radiology Results: Results: Impression: MRI Cardiac w/wo contrast for Morph/Funct and Valve Dz [May 15 2018 4:06PM] Impression: Lucent changes about the region of the prior left maxillary canine are 1st premolar tooth. There is also subtle periapical lucent changes about the left maxillary 3rd molar wisdom tooth. Periapical abscesses cannot be excluded. Clinical correlation with dental exam is recommended. Xray Orthopantogram [May 15 2018 9:08AM] Assessment and Plan: Assessment: 62 y/o female with a h/o HTN, HLD, and type II DM who presented with SOB and chest pain, found to have severe 3-vessel disease and transferred to [facility] for CABG evaluation. 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 - Cardiac surg consult: appreciate assistance. Tentatively planned for surgical revascularization 05/18, 2nd case - consulted Dental/OMFS: plans for extraction tomorrow at 11am - Cardiac MRI: LVEF 37%, delayed subendocardial enhancement of the base and mid inferior wall involving up to 50% of the myocardial thickness in keeping with the sequela of infarction in the RCA territory with component of viable myocardium. No other areas of delayed enhancement is identified in the LAD or LCx territory. - plavix loaded, last dose 05/10, will be reloaded with plavix in pathology laboratory director - cont BB, statin, ASA - plan for PCI tomorrow with Dr. Keith, patient aware of change in plan PAD - s/p Left CEA in setting of CVA - vascular surgery consulted pre-op - carotid duplex: R: < 50% stenosis, L >50% stenosis - ABIs: R ratio 0.66, 0.70, L ratio 0.59 - brachial pressure 124mmHg on right and 103mmHg on left - CTA head and neck: Severe stenosis at the origin of the left internal carotid artery. Moderate narrowing at the proximal right common carotid artery - Vasc f/u in one month with Dr. Jimenez at [facility] Acute systolic and diastolic HF - TTE 05/14: LVEF 35%, DD, Mild LVH, Mild to mod MR, Mild to mod TR - Volume overloaded and diuresed at OSH - 05/11 CXR no acute processes - presently well compensated - Daily standing weights, strict I&O's, 2g sodium diet, 2L fluid restriction - Cont BB - was previously on lisinopril, stopped prior to surgery, now with plan change consider restarting VHD - mild to mod MR - SARA canceled given oozing from teeth extraction site and no longer any plan for CABG tomorrow Leukocytosis, resolved - WBCs today 8.9 (8.2) (12.3) (13.9) (14.4) - afebrile, no obvious source of infection - UA neg Abdominal pain/ N/ V, resolved - PRN zofran - KUB neg HTN - SBP over last 24hrs 110s-120s - cont hydral 25 TID, carvedilol 3.125mg BID Hyperlipidemia - cont statin Type II DM - Home dose insuline glargine 18units, was receiving 12 units while inpatient, will give 6units while NPO at [facility], [facility] - 05/11 Hgb A1C 6.6% Tobacco abuse - poor dentition, 10 teeth extracted today - PFT's Full code DVT ppx: subcutaneous lovenox Disp - surgical revascularization tomorrow with Dr. Melgar, 2nd case Seen and discussed with Dr. Rm Signature/Cosignature/Attestation: Provider/Team Contact Info-Pager [phone] Comments/ Additional Findings I have interviewed and examined the patient and the documentation above reflects my edited findings and plans. Nick Rm MD, [facility] Electronic Signatures: Brittany Rm) (Signed 04-Jun-2018 12:07) Authored: Signature/Cosignature/Attestation Co-Signer: Service, Subjective Data, Objective Data, Assessment and Plan, Signature/Cosignature/Attestation Larry Mcginnis (COMMUNICATIONS PROGRAM MANAGER-CREDIT CONTROL ADMINISTRATOR) (Signed 17-May-2018 17:48) Authored: Service, Subjective Data, Objective Data, Assessment and Plan, Signature/Cosignature/Attestation Last Updated: 04-Jun-2018 12:07 by Brittany Rm) CLINICAL EVENT NOTE-OK Observed: 05/17/2018 Status: UNK Source: GORIN TO PROCEED WITH 9:10 AM HOSPITALS REPOSITORY MIDLINE PLACEMENT Event: Topic: OK to Proceed with Midline Placement Details: Team is aware of kidney function, today's creatinine 1.19 with GFR 46, and are agreeable to Midline placement. Provider / Team Contact Information: Provider/Team Contact Info-Pager Number: [phone] Electronic Signatures: Larry Mcginnis (COMMUNICATIONS PROGRAM MANAGER-CREDIT CONTROL ADMINISTRATOR) (Signed 17-May-2018 09:11) Authored: Event, Provider / Team Contact Information Last Updated: 17-May-2018 09:11 by Larry Mcginnis (COMMUNICATIONS PROGRAM MANAGER-CREDIT CONTROL ADMINISTRATOR) THYROXINE,FREE Collected: 05/17/2018 Status: F Source: GORIN 8:07 AM HOSPITALS REPOSITORY TYPE CODE TESTS RESULT OUT OF RANGE REFERENCE UNITS LAB T4FRE(LOINC 0.78 - 1.48 ng/dL ) 1.40 THYROXINE,FR EE Result Comment: Thyroxine Free testing is performed using different testing methodology at [facility] than at other [facility]. Direct result comparisons should only be made within the same method. . Patients receiving more than 5 mg/day of biotin may have interference in test results. A sample should be taken no sooner than eight hours after previous dose. Contact [phone] for additional information. Performed By: #### T4FRE #### [facility] [address] [place] [address] TSH Collected: 05/17/2018 Status: F Source: GORIN 8:07 [facility] REPOSITORY TYPE CODE TESTS RESULT OUT OF RANGE REFERENCE UNITS LAB TSH2(LOINC) 0.44 - 3.98 mIU/L TSH 2.82 Result Comment: TSH testing is performed using different testing methodology at [facility] than at other [facility]. Direct result comparisons should only be made within the same method. . Patients receiving more than 5 mg/day of biotin may have interference in test results. A sample should be taken no sooner than eight hours after previous dose. Contact [phone] for additional information. Performed By: #### TSH2 #### [facility] [address] [place] [address] HEMOGLOBIN A1C Collected: 05/17/2018 Status: F Source: GORIN 8:07 [facility] REPOSITORY TYPE CODE TESTS RESULT OUT OF RANGE REFERENCE UNITS LAB HBA1C(LOINC % ) HGB A1C 6.3 Result Comment: Diagnosis of Diabetes-Adults Non-Diabetic: < or = 5.6% Increased risk for developing diabetes: 5.7-6.4% Diagnostic of diabetes: > or = 6.5% . Monitoring of Diabetes Age (y) Therapeutic Goal (%) Adults: >18 <7.0 Pediatrics: 13-18 <7.5 7-12 <8.0 0- 6 7.5-8.5 [employer]. Diabetes Care 33(S1), May 2009. LAB ESAVG(LOINC) MG/DL EST.AVG.GLUCOSE 134 Performed By: #### HBA1E #### [facility] [address] [place] [address] GLUCOSE-POCT Collected: 05/17/2018 Status: F Source: GORIN 8:03 [facility] REPOSITORY TYPE CODE TESTS RESULT OUT OF RANGE REFERENCE UNITS LAB GLUP(LOINC) 74 - 99 mg/dL High 154 GLUCOSE-POCT Performed By: #### GLUPO #### [facility] [address] [place] [address] GLUCOSE-POCT Collected: 05/16/2018 Status: F Source: GORIN 9:31 PM [facility] REPOSITORY TYPE CODE TESTS RESULT OUT OF RANGE REFERENCE UNITS LAB GLUP(LOINC) 74 - 99 mg/dL High 214 GLUCOSE-POCT Performed By: #### GLUPO #### [facility] [address] [place] [address] CBC Collected: 05/16/2018 Status: F Source: GORIN 7:26 [facility] REPOSITORY TYPE CODE TESTS RESULT OUT OF REFERENCE UNITS RANGE LAB WBCR(LOINC 4.4 - 11.3 x10E9/L ) WBC 8.9 LAB NRBC(LOINC 0.0-0.0 /100 WBC ) NUCLEATED RBC 0.0 LAB RBCCT(LOIN 4.00 - 5.20 x10E12/L C) Low RBC 3.88 LAB HGB(LOINC) 12.0 - 16.0 g/dL Low HGB 11.2 LAB HCT(LOINC) 36.0 - 46.0 % HCT 36.2 LAB MCV(LOINC) 80 - 100 fL MCV 93 LAB MCHC2(LOIN 32.0 - 36.0 g/dL C) Low MCHC 30.9 LAB PLTCT(LOIN 150 - 450 x10E9/L C) PLT 276 LAB RDWCV(LOIN 11.5 - 14.5 % C) High RDW-CV 15.0 Performed By: #### CBC #### [facility] [address] [place] [address] BASIC METABOLIC PANEL Collected: 05/16/2018 Status: F Source: GORIN 7:[address] [place] [address] REPOSITORY TYPE CODE TESTS RESULT OUT OF RANGE REFERENCE UNITS LAB GLU(LOINC) 74 - 99 mg/dL High GLUCOSE 107 LAB SOD(LOINC) 136 - 145 mmol/L Low SODIUM 134 LAB K(LOINC) 3.5 - 5.3 mmol/L POTASSIUM 4.2 LAB CHLOR(LOIN 98 - 107 mmol/L C) CHLORIDE 101 LAB BIC(LOINC) 21 - 32 mmol/L BICARBONATE 24 LAB ANGAP(LOIN 10 - 20 mmol/L C) ANION GAP 13 LAB UREA(LOINC 6 - 23 mg/dL ) High UREA NITROGEN 24 LAB CREA(LOINC 0.50 - 1.05 mg/dL ) High CREATININE 1.19 LAB GFRFN(LOIN >60 mL/min/1.7 C) 3m2 GFR-NON Abnormal AM. 46 LAB GFRAA(LOIN >60 mL/min/1.7 C) 3m2 GFR- Abnormal AM. 56 Result Comment: CALCULATIONS OF ESTIMATED GFR ARE PERFORMED USING THE MDRD STUDY EQUATION FOR THE IDMS-TRACEABLE CREATININE METHODS. CLIN CHEM 2007;53:766-72 LAB CA(LOINC) 8.6 - 10.6 mg/dL CALCIUM 9.3 Performed By: #### BMP #### [facility] [address] [place] [id number] GLUCOSE-POCT Collected: 05/16/2018 Status: F Source: GORIN 7:24 PM HOSPITALS REPOSITORY TYPE CODE TESTS RESULT OUT OF RANGE REFERENCE UNITS LAB GLUP(LOINC) 74 - 99 mg/dL High 117 GLUCOSE-POCT Performed By: #### GLUPO #### [facility] [address] [place] [id number] DAILY PROGRESS Observed: 05/16/2018 Status: COMPLETED Source: GORIN NOTE-CARDIOLOGY 3:34 PM HOSPITALS REPOSITORY Service: Cardiology Subjective Data: DAVINA GREEN is a 62 year old Female who is Hospital Day # 7. Additional Information: Pt feels well, reports no orthopnea, PND, CP. LLE pain resolved. Objective Data: Objective Information: ---- Intake and Output ----- Mn/Dy/Year TimeIntakeOutputNet May 16, 2018 2:00 [id number] May 16, 2018 6:00 [id number] May 15, 2018 10:00 [id number] The Intake and Output Totals for the last 24 hours are: IntakeOutputNet [id number] T PRBPSpO2 Value36.42807088/6797% Date/Time05/16 11: 11: 11: 11: 11:59 Range(36.1C - 36.8C ) (77 - 94 ) (18 - 18 ) (114 - 144 )/ (67 - 81 ) (93% - 97% ) Weights 05/16 3:37: Weight in kg (Weight (kg)) 62.6 05/16 3:37: Weight in lbs ((lbs)) 138.1 Physical Exam: Constitutional: lying in bed in NAD Head/Neck: no JVD Respiratory/Thorax: few end exp rales at bases, no wheezew Cardiovascular: Reg S1S2, soft CADENCE Gastrointestinal: soft, ND/NT, BS+ Extremities: no LE edema Neurological: no focal deficits Psychological: Appropriate mood and behavior Skin: Warm and dry Medication: Medications: Continuous Medications No continuous medications are active Scheduled Medications 1. Aspirin Chewable: 81 mg Oral Daily 2. Atorvastatin: 40 mg Oral Daily 3. busPIRone (BUSPAR): 5 mg Oral Every 8 Hours 4. Carvedilol: 3.125 mg Oral 2 Times a Day 5. Docusate 50 mg - Senna 8.6 m tablet(s) Oral 2 Times a Day 6. hydrALAZINE: 25 mg Oral Every 8 Hours 7. Insulin Glargine (Lantus) Injectable: 12 unit(s) SubCutaneous Daily 8. Insulin Lispro Mild Corrective Scale: unit(s) SubCutaneous 3 Times a Day Before Meals 9. Mupirocin 2%: 0.5 application(s) Each Nostril 2 Times a Day 10. [place]-3 Acid Ethyl Esters: 2 gram(s) Oral 2 Times a Day PRN Medications 1. Acetaminophen: 650 mg Oral Every 4 Hours 2. Albuterol 2.5 mg/ 3 mL Nebulizer Soln: 3 mL Inhalation Every 4 Hours 3. Dextrose 50% in Water Injectable: 25 gram(s) IntraVenous Push Every 15 Minutes 4. Glucagon Injectable: 1 mg IntraMuscular Every 15 Minutes 5. LORazepam: 0.25 mg Oral Every 12 Hours 6. Ondansetron Injectable: 4 mg IntraVenous Push Every 6 Hours 7. oxyCODONE 5 mg - Acetaminophen 325 m tablet(s) Oral Every 4 Hours Conditional Medication Orders 1. Perflutren Lipid Microsphere (Activated) 1.3 mL / NaCL 0.9% T.V. 10 mL Injectable: 0.5 mL IntraVenous Push Once Currently Suspended Medications 1. Enoxaparin SubCutaneous: 40 mg SubCutaneous Every 24 Hours Recent Lab Results: Results: I have reviewed these laboratory results: Glucose_POCT Trending View [id number] 08:17:00 12-May-2018 21:32:00 12-May-2018 16:44:00 12-May-2018 11:53:00 12-May-2018 08:03:00 [id number] H 193 H 152 H 202 H 167 H Complete Blood Count 12-May-2018 20:15:00 ResultValue White Blood Cell Count 14.4 H Nucleated Erythrocyte Count 0.0 Red Blood Cell Count 4.55 HGB 13.0 HCT 38.9 MCV 85 MCHC 33.4 PLT 395 RDW-CV 14.5 Hepatic Function Panel 12-May-2018 20:05:00 ResultValue Aspartate Transaminase, Serum 11 ALB 3.5 T Bili 0.3 Bilirubin, Serum Direct - Conjugated 0.1 ALKP 107 Alanine Aminotransferase, Serum 11 T Pro 6.5 Basic Metabolic Panel 12-May-2018 20:05:00 ResultValue Glucose, Serum 171 H NA 134 L K 4.3 CL 99 Bicarbonate, Serum 24 Anion Gap, Serum 15 BUN 29 H CREAT 1.26 H GFR-Non 43 A GFR- 52 A Calcium, Serum 9.1 Lipase, Serum 12-May-2018 20:05:00 ResultValue Lipase, Serum 7 L Arterial Full Panel 12-May-2018 17:27:00 ResultValue pH, Arterial 7.44 H pCO2, Arterial 35 L pO2, Arterial 75 L Patient-Temperature 37.0 SO2, Arterial 97 HCT 38.0 Sodium-Level 135 L Potassium-Level 4.2 Chloride-Level 100 Calcium, Ionized-Level 1.22 Glucose-Level 167 H Lactate-Level 0.8 Base Excess-Blood 0.0 Bicarbonate, Calculated, Arterial 23.8 HGB, Calculated 12.9 Anion Gap-Level 15 Radiology Results: Results: Impression: Cardiomediastinal silhouette is at upper limit of normal for size. Otherwise, no acute cardiopulmonary process. Xray Chest 2 View PA + Lateral [May 11 2018 7:20PM] Conclusion: VASC LAB Pre-op Vessel Vein Mapping [May 11 2018 3:04PM] Conclusion: VASC LAB PVR (Arterial Physiologic) JOANA [May 11 2018 2:56PM] Conclusion: VASC LAB Carotid Artery Duplex Ultrasound [May 11 2018 2:51PM] Assessment and Plan: Assessment: 62 y/o female with a h/o HTN, HLD, and type II DM who presented with SOB and chest pain, found to have severe 3-vessel disease and transferred to [facility] for CABG evaluation. 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 - Cardiac surg consult: appreciate assistance. Tentatively planned for surgical revascularization 05/18, 2nd case - consulted Dental/OMFS: plans for extraction tomorrow at 11am - Cardiac MRI: LVEF 37%, delayed subendocardial enhancement of the base and mid inferior wall involving up to 50% of the myocardial thickness in keeping with the sequela of infarction in the RCA territory with component of viable myocardium. No other areas of delayed enhancement is identified in the LAD or LCx territory. - benefit of PCI vs CABG. Dr. Rm to discuss with Interventional Cards - plavix loaded, last dose 05/10 - cont BB, statin, ASA PAD - s/p Left CEA in setting of CVA - vascular surgery consulted pre-op - carotid duplex: R: < 50% stenosis, L >50% stenosis - ABIs: R ratio 0.66, 0.70, L ratio 0.59 - brachial pressure 124mmHg on right and 103mmHg on left - CTA head and neck: Severe stenosis at the origin of the left internal carotid artery. Moderate narrowing at the proximal right common carotid artery - Vasc f/u in one month with Dr. Jimenez at [facility] Acute systolic HF - TTE 05/14: LVEF 35%, DD, Mild LVH, Mild to mod MR, Mild to mod TR - Volume overloaded and diuresed at OSH - 05/11 CXR no acute processes - presently well compensated - strict I/O's, daily wts - ALEJANDRA on hold for surgery, Cont BB VHD - mild to mod MR - possible SARA tomorrow afternoon Leukocytosis - resolved - WBCs 8.2 (12.3) (13.9) (14.4) today - afebrile, no obvious source of infection - UA neg Abdominal pain/ N/ V - PRN zofran - KUB neg - resolved HTN - SBP over last 24hrs 110s-140s - increased hydral to 25 TID Hyperlipidemia - cont statin Type II DM - Insulin glargine 12 units daily (home dose=18 units) - ISS, accuhecks - 05/11 Hgb A1C 6.6% Tobacco abuse - PFT's Full code DVT ppx: subcutaneous lovenox Disp - surgical revascularization tentatively for Monday, case Seen and discussed with Dr. Rm Signature/Cosignature/Attestation: Comments/ Additional Findings I have interviewed and examined the patient and the documentation above reflects my edited findings and plans. Nick Rm MD, [facility] Electronic Signatures: Fawad Keene (PA (PHYSICIAN)) (Signed 16-May-2018 15:57) Authored: Service, Subjective Data, Objective Data, Assessment and Plan, Signature/Cosignature/Attestation Brittany Rm) (Signed 04-Jun-2018 12:05) Authored: Signature/Cosignature/Attestation Co-Signer: Assessment and Plan, Signature/Cosignature/Attestation Last Updated: 04-Jun-2018 12:05 by Brittany Rm) DAILY PROGRESS NOTE Observed: 05/16/2018 Status: UNK Source: GORIN 3:31 PM HOSPITALS REPOSITORY This report has been cancelled. GLUCOSE-POCT Collected: 05/16/2018 Status: F Source: GORIN 2:44 PM HOSPITALS REPOSITORY TYPE CODE TESTS RESULT OUT OF RANGE REFERENCE UNITS LAB GLUP(LOINC) 74 - 99 mg/dL High 130 GLUCOSE-POCT Performed By: #### GLUPO #### [facility] [address] [place] [address] CONSULT-ORAL AND Observed: 05/16/2018 Status: COMPLETED Source: [facility] MAXILLOFACIAL SURGERY 1:02 PM HOSPITALS REPOSITORY Service: Service: Oral & Maxillofacial Surgery History of Present Illness: HPI: 62 year old female with HTN, HLD, DM, stroke 8 years ago s/p left presents as a transfer from [facility] for CABG evaluation. Pt was admitted on 05/08/2018 after 2 days of sharp substernal chest pain and orthopnea. At OSH, EF37% w/ diastolic dysfxn; cardiac cath showed severe 3-vessel disease with 90% stenosis of the LAD, 80-90% stenosis of the left circumflex, and completely occluded right coronary. B/P difference of >20mmHgbetween both arms. Vascular surgery was consulted for evaluation of bp discrepancy, dental was consulted prior to SARA for evaluation and recommends all remaining teeth should be extracted, Oral Surgery was then consulted to evaluate prior to tx. Patient denies any current oral pain. Allergies: penicillin: Hives/Urticaria Objective: Objective Information: T PRBPSpO2 [id number]/6797% Date/Time05/16 11: 11: 11: 11: 11:59 Range(36.1C - 36.8C ) (77 - 94 ) (18 - 18 ) (114 - 144 )/ (67 - 81 ) (93% - 97% ) Pain reported at 05/16 9:00: 0 Weights 05/16 3:37: Weight in kg (Weight (kg)) 62.6 05/16 3:37: Weight in lbs ((lbs)) 138.1 Medications: Medications: Continuous Medications No continuous medications are active Scheduled Medications 1. Aspirin Chewable: 81 mg Oral Daily 2. Atorvastatin: 40 mg Oral Daily 3. busPIRone (BUSPAR): 5 mg Oral Every 8 Hours 4. Carvedilol: 3.125 mg Oral 2 Times a Day 5. Docusate 50 mg - Senna 8.6 m tablet(s) Oral 2 Times a Day 6. Enoxaparin SubCutaneous: 40 mg SubCutaneous Every 24 Hours 7. hydrALAZINE: 25 mg Oral Every 8 Hours 8. Insulin Glargine (Lantus) Injectable: 12 unit(s) SubCutaneous Daily 9. Insulin Lispro Mild Corrective Scale: unit(s) SubCutaneous 3 Times a Day Before Meals 10. Mupirocin 2%: 0.5 application(s) Each Nostril 2 Times a Day 11. [place]-3 Acid Ethyl Esters: 2 gram(s) Oral 2 Times a Day PRN Medications 1. Acetaminophen: 650 mg Oral Every 4 Hours 2. Albuterol 2.5 mg/ 3 mL Nebulizer Soln: 3 mL Inhalation Every 4 Hours 3. Dextrose 50% in Water Injectable: 25 gram(s) IntraVenous Push Every 15 Minutes 4. Glucagon Injectable: 1 mg IntraMuscular Every 15 Minutes 5. LORazepam: 0.25 mg Oral Every 12 Hours 6. Ondansetron Injectable: 4 mg IntraVenous Push Every 6 Hours 7. oxyCODONE 5 mg - Acetaminophen 325 m tablet(s) Oral Every 4 Hours Conditional Medication Orders 1. Perflutren Lipid Microsphere (Activated) 1.3 mL / NaCL 0.9% T.V. 10 mL Injectable: 0.5 mL IntraVenous Push Once Radiology Results: Results: Impression: Lucent changes about the region of the prior left maxillary canine are 1st premolar tooth. There is also subtle periapical lucent changes about the left maxillary 3rd molar wisdom tooth. Periapical abscesses cannot be excluded. Clinical correlation with dental exam is recommended. Xray Orthopantogram [May 15 2018 9:08AM] Assessment: Patient is a 62 year old woman with HTN, HLD, DM, and hx of stroke 8 years ago s/p left presents for CABG evaluation. OMFS team was consulted to evaluate remaining teeth prior to extractions due to patient's risk of aspiration during SARA. Assessment: Patient denies any current intraoral pain Intraoral exam: - Mucosa pink and moist - Occlusion unstable- remaining teeth carious with severe generalized chronic periodontitis. - Teeth remaining include #5, root #6, #7, 16, roots 19, 21, 22, 23, 30, roots 31. All remaining teeth 2+ mobility - Not tender to palpation/percussion of teeth - FOM soft - No lacerations/lesions/swelling Extraoral exam: - Face: Face symmetric. No lacerations/swelling - Eyes: EOMI, PERRLA - TMJ: No tenderness. No deviation with opening. NAHUM ~40mm - Nose: Nares normal and patent. Dorsum straight. No discharge. - Neck: Supple without swelling or lymphadenopathy. No thyroid enlargement or tenderness noted. CNV and CNVII intact b/l Recs: - hold next dose of lovenox - primary teem to schedule transport to [facility] clinic for extraction of remaining teeth at 11am tomorrow 05-17-2018 Electronic Signatures: Mani Desai) (Signed 04-Jun-2018 09:07) Authored: Signature/Cosignature/Attestation Co-Signer: Service, History of Present Illness, Allergies, Objective, Assessment/Recommendations, Signature/Cosignature/Attestation Wally Woodward) (Signed 09-Jun-2018 16:39) Authored: Signature/Cosignature/Attestation Co-Signer: Service, History of Present Illness, Allergies, Objective, Assessment/Recommendations, Signature/Cosignature/Attestation Makayla Griffin) (Signed 16-May-2018 17:52) Authored: Service, History of Present Illness, Allergies, Objective, Assessment/Recommendations, Signature/Cosignature/Attestation Last Updated: 09-Jun-2018 16:39 by Wally Woodward (VIVI) REQUEST-LEUKOREDUCED RED CELLS Collected: Status: F Source: [place] 05/16/2018 9:43 AM [facility] REPOSITORY TYPE CODE TESTS RESULT OUT OF RANGE REFERENCE UNITS LAB OLPC(LOINC) ORDER RECD REQUEST-LEUK OREDUCED RED CELLS Performed By: #### OLPC #### [facility] [address] [place] [address] PLATELETS Collected: 05/16/2018 Status: F Source: [facility]ORIN 9:43 [facility] REPOSITORY TYPE CODE TESTS RESULT OUT OF REFERENCE UNITS RANGE LAB PLT(LOINC) PLATELETS ORDER RECD Result Comment: If this patient is Rh Negative and if the Platelet product transfused is Rh Positive, review the use of WinRho Prophylaxis for this patient. Performed By: #### PLT #### [facility] [address] [place] [address] DAILY PROGRESS Observed: 05/16/2018 Status: COMPLETED Source: UNIVERSITY NOTE-CARDIAC SURGERY 9:43 AM HOSPITALS REPOSITORY Consult Type: subsequent visit/care Service: Cardiac Surgery Subjective Data: DAVINA GREEN is a 62 year old Female who is Hospital Day # 7. Objective Data: Objective Information: Pain reported at 05/16 9:00: 0 Weights 05/16 3:37: Weight in kg (Weight (kg)) 62.6 05/16 3:37: Weight in lbs ((lbs)) 138.1 ---- Intake and Output ----- Mn/Dy/Year TimeIntakeOutputNet May 16, 2018 6:00 [id number] May 15, 2018 10:00 [id number] May 15, 2018 2:00 [id number] The Intake and Output Totals for the last 24 hours are: IntakeOutputNet [id number] Medication: Medications: Continuous Medications No continuous medications are active Scheduled Medications 1. Aspirin Chewable: 81 mg Oral Daily 2. Atorvastatin: 40 mg Oral Daily 3. busPIRone (BUSPAR): 5 mg Oral Every 8 Hours 4. Carvedilol: 3.125 mg Oral 2 Times a Day 5. Docusate 50 mg - Senna 8.6 m tablet(s) Oral 2 Times a Day 6. Enoxaparin SubCutaneous: 40 mg SubCutaneous Every 24 Hours 7. hydrALAZINE: 25 mg Oral Every 8 Hours 8. Insulin Glargine (Lantus) Injectable: 12 unit(s) SubCutaneous Daily 9. Insulin Lispro Mild Corrective Scale: unit(s) SubCutaneous 3 Times a Day Before Meals 10. Mupirocin 2%: 0.5 application(s) Each Nostril 2 Times a Day 11. [place]-3 Acid Ethyl Esters: 2 gram(s) Oral 2 Times a Day PRN Medications 1. Acetaminophen: 650 mg Oral Every 4 Hours 2. Albuterol 2.5 mg/ 3 mL Nebulizer Soln: 3 mL Inhalation Every 4 Hours 3. Dextrose 50% in Water Injectable: 25 gram(s) IntraVenous Push Every 15 Minutes 4. Glucagon Injectable: 1 mg IntraMuscular Every 15 Minutes 5. LORazepam: 0.25 mg Oral Every 12 Hours 6. Ondansetron Injectable: 4 mg IntraVenous Push Every 6 Hours 7. oxyCODONE 5 mg - Acetaminophen 325 m tablet(s) Oral Every 4 Hours Conditional Medication Orders 1. Perflutren Lipid Microsphere (Activated) 1.3 mL / NaCL 0.9% T.V. 10 mL Injectable: 0.5 mL IntraVenous Push Once Recent Lab Results: Results: I have reviewed these laboratory results: Glucose_POCT Trending View [id number] 08:36:00 16-May-2018 07:56:00 15-May-2018 12:02:00 15-May-2018 07:28:00 14-May-2018 17:19:00 14-May-2018 12:38:00 Glucose-HCNT623 H 74 144 H 128 H 172 H 137 H Complete Blood Count Trending View [id number] 20:09:00 14-May-2018 19:20:00 White Blood Cell Count8.2 12.3 H Nucleated Erythrocyte Count0.0 0.0 Red Blood Cell Count3.67 L 3.96 L HGB10.4 L 11.4 L HCT32.1 L 35.0 L MCV87 88 MCHC32.4 32.6 HLW586 332 RDW-CV14.6 H 14.6 H Basic Metabolic Panel Trending View [id number] 20:09:00 14-May-2018 19:20:00 Glucose, Hvhtu403 H 147 H NA134 L 134 L K3.8 3.9 CL101 100 Bicarbonate, Serum24 22 Anion Gap, Serum13 16 BUN23 28 H CREAT1.17 H 1.34 H GFR-Non Fzmaygqg01 A 40 A GFR- Myoakebg42 A 48 A Calcium, Serum8.7 8.9 Culture, Urine 14-May-2018 17:34:00 ResultValue Organism Gram-negative bacillus >100,000 CFU/ML IDENTIFICATION AND/OR ANTIBIOTIC SUSCEPTIBILITY IN PROGRESS. A Radiology Results: Results: Impression: MRI Cardiac w/wo contrast for Morph/Funct and Valve Dz [May 15 2018 4:06PM] Impression: Lucent changes about the region of the prior left maxillary canine are 1st premolar tooth. There is also subtle periapical lucent changes about the left maxillary 3rd molar wisdom tooth. Periapical abscesses cannot be excluded. Clinical correlation with dental exam is recommended. Xray Orthopantogram [May 15 2018 9:08AM] Conclusion: CONCLUSIONS: 1. The left ventricular systolic function is moderately decreased with a 35% estimated ejection fraction. 2. Spectral Doppler shows a pseudonormal pattern of left ventricular diastolic filling. 3. There are elevated left atrial and left ventricular end diastolic pressures. 4. There is mild eccentric left ventricular hypertrophy. 5. The left atrium is moderately dilated. 6. Mild to moderate mitral valve regurgitation. 7. Mild to moderately elevated right ventricular systolic pressure. 8. There is mild to moderate tricuspid regurgitation. 9. There is no evidence of a patent foramen ovale. QUANTITATIVE DATA SUMMARY: 2D MEASUREMENTS: Normal Ranges: LAs: 4.20 cm (2.7-4.0cm) IVSd: 1.31 cm (0.6-1.1cm) LVPWd: 1.16 cm (0.6-1.1cm) LVIDd: 4.74 cm (3.9-5.9cm) LVIDs: 3.72 cm LV Mass Index: 136.1 g/m2 LV % FS 21.5 % LA VOLUME: Normal Ranges: LA Vol A4C: 71.5 ml (22+/-6mL/m2) LA Vol A2C: 83.1 ml LA Vol BP: 77.4 ml LA Vol Index A4C: 43.5ml/m2 LA Vol Index A2C: 50.5 ml/m2 LA Vol Index BP: 47.1 ml/m2 LA Area A4C: 21.8 cm2 LA Area A2C: 23.6 cm2 LA [place] A4C: 5.6 cm LA [place] A2C: 5.7 cm RA VOLUME BY A/L METHOD: Normal Ranges: RA Area A4C: 9.5 cm2 M-MODE MEASUREMENTS: Normal Ranges: Ao Root: 2.80 cm (2.0-3.7cm) AoV Exc: 1.60 cm (1.5-2.5cm) LAs: 4.50 cm (2.7-4.0cm) AORTA MEASUREMENTS: Normal Ranges: AoV Exc: 1.60 cm (1.5-2.5cm) Asc Ao, d: 2.90 cm (2.1-3.4cm) LV SYSTOLIC FUNCTION BY 2D PLANIMETRY (MOD): Normal Ranges: EF-A4C View: 36.8 % (>55%) EF-A2C View: 36.1 % EF-Biplane: 35.2 % LV DIASTOLIC FUNCTION: Normal Ranges: MV Peak E: 1.04 m/s (0.7-1.2 m/s) MV Peak A: 0.96 m/s (0.42-0.7 m/s) E/A Ratio: 1.08 (1.0-2.2) MV e' 0.05 m/s (>8.0) MV lateral e' 0.08 m/s MV medial e' 0.03 m/s MV A Dur: 63.00 msec E/e' Ratio:19.00 (<8.0) MV DT: 121 msec (150-240 msec) PulmV Sys Jazmine: 54.40 cm/s PulmV Stevenson Jazmine: 80.60 cm/s PulmV S/D Jazmine: 0.70 PulmV A Revs Jazmine: 35.10 cm/s PulmV A Revs Dur: 63.00 msec MITRAL INSUFFICIENCY: Normal Ranges: PISA Radius: 0.3 cm MR VTI: 165.00 cm MR Vmax: 571.33 cm/s AORTIC VALVE: Normal Ranges: AoV Vmax: 1.48 m/s (<1.7m/s) AoV Peak P.8 mmHg (<20mmHg) LVOT Max Jazmine: 1.14 m/s (<1.1m/s) LVOT VTI: 19.50 cm LVOT Diameter: 1.80 cm (1.8-2.4cm) AoV Area,Vmax: 1.96 cm2 (2.5-4.5cm2) RIGHT VENTRICLE: RV 1 3.36 cm RV 2 2.40 cm RV 3 6.90 cm TAPSE: 17.7 mm RV s' 0.12 m/s TRICUSPID VALVE/RVSP: Normal Ranges: Peak TR Velocity: 3.16 m/s RV Syst Pressure: 47.9 mmHg (< 30mmHg) IVC Diam: 1.43 cm PULMONIC VALVE: Normal Ranges: PV Accel Time: 111 msec (>120ms) PV Max Jazmine: 1.0 m/s (0.6-0.9m/s) PV Max P.9 mmHg Pulmonary Veins: PulmV A Revs Dur: 63.00 msec PulmV A Revs Jazmine: 35.10 cm/s PulmV Stevenson Jazmine: 80.60 cm/s PulmV S/D Jazmine: 0.70 PulmV Sys Jazmine: 54.40 cm/s Echocardiogram [May 14 2018 4:52PM] Impression: 1. Nonobstructive bowel gas pattern. Xray Abdomen AP View [May 14 2018 10:37AM] Impression: *Severe stenosis at the origin of the left internal carotid artery *Moderate narrowing at the proximal right common carotid artery THIS CT Angio Head w/wo Include Post Proc [May 14 2018 8:10AM] Impression: *Severe stenosis at the origin of the left internal carotid artery *Moderate narrowing at the proximal right common carotid artery THIS CT Angio Neck [May 14 2018 8:10AM] Impression: [Nonobstructive bowel gas pattern. ] Xray Abdomen AP View [May 14 2018 7:51AM] Assessment and Plan: Assessment: IMPRESSION AND PLAN: Dr. Melgar has met with patient and has reviewed pertinent imaging and data. - Plan for OR for CABG Friday 05/18 2nd case - preop testing ordered - patient needs teeth extracted per dental recs - obtain SARA if possible after teeth extraction - no alejandra/arb in the preop period - no oral antiplatelets except 81mg ASA - continue BB (needs a dose within 24hrs of skin incision) - continue asa, statin - NPO after midnight 05/18 Thank you for the consult. Please call cardiac surgery immediately if the patient deteriorates clinically Signature/Cosignature/Attestation: Provider/Team Contact Info-Pager Numbercardiac surgery [phone] Electronic Signatures: Brit Yee (PAC) (Signed 16-May-2018 09:53) Authored: Service, Subjective Data, Objective Data, Assessment and Plan, Signature/Cosignature/Attestation Last Updated: 16-May-2018 09:53 by Brit Yee (PAC) GLUCOSE-POCT Collected: 05/16/2018 Status: F Source: [facility]ORIN 8:36 AM [facility]OSPITALS REPOSITORY TYPE CODE TESTS RESULT OUT OF RANGE REFERENCE UNITS LAB GLUP(LOINC) 74 - 99 mg/dL High 160 GLUCOSE-POCT Performed By: #### GLUPO #### [facility] [address] [place] [address] GLUCOSE-POCT Collected: 05/16/2018 Status: F Source: [facility]ORIN 7:56 AM HOSPITALS REPOSITORY TYPE CODE TESTS RESULT OUT OF RANGE REFERENCE UNITS LAB GLUP(LOINC) 74 - 99 mg/dL 74 GLUCOSE-POCT Performed By: #### GLUPO #### [facility] [address] [place] [address] CONSULT Observed: 05/15/2018 Status: COMPLETED Source: [facility]ORIN 11:04 PM HOSPITALS REPOSITORY History of Present Illness: HPI: 62 y/o female with HTN, HLD, DM, and stroke 8 years ago (no residual deficits) s/p left presents as a transfer from [facility] for CABG evaluation. She was admitted on 05/08/2018 with two days of intermittent sharp substernal chest pain and orthopnea. At OSH TTE was performed showing an EF of 37% with diastolic dysfunction; cardiac cath showed severe three-vessel disease with 90% stenosis of the LAD, 80-90% stenosis of the left circumflex, and a completely occluded right coronary. During the further workup [place] [facility] [place] was discovered during VASC lab PVR patient had B/P difference of >20mmHG between both arms (Brachial Pressure on right was 124 mmHg 103 mmHg on the left). Vascular surgery was consulted for further evaluation of the BP discrepancy. Patient was referred to dental to be evaluated to rule out any type of infection. An orthopantogram was taken. Patient is missing multiple teeth, a the few missing has very poor prognosis. All her teeth are very periodontically involved, mobile, and have apical periolucencies. Intraoral evaluation confirmed the xray reading. Teeth are very decayed, and some of them are just root tips. Patient has halitosis, and gums are inflamed and red, a sign of gingival disease, associated with the active periodontal disease of the patient. Allergies: penicillin: Hives/Urticaria Assessment: It is recommended for the patient to have her remaining teeth extracted. Patient poor dentition and active periodontal disease is a risk for patient further cardiac surgery. Please contact OMFS department at [facility]. Signature/Cosignature/Attestation: Attending AttestationI reviewed the resident/fellows documentation and discussed the patient with the resident/fellow. I agree with the resident/fellows medical decision making as documented in the residents note. Electronic Signatures: Orlando Patterson (DDS) (Signed 05-Jun-2018 15:35) Entered: Signature/Cosignature/Attestation Authored: History of Present Illness, Allergies, Assessment/Recommendations, Signature/Cosignature/Attestation Ki Sandoval (DMD) (Entered 15-May-2018 23:07) Entered: History of Present Illness, Allergies, Assessment/Recommendations, Signature/Cosignature/Attestation Last Updated: 05-Jun-2018 15:35 by Orlando Patterson (SWETA) CBC Collected: 05/15/2018 Status: F Source: GORIN 8:09 [facility] REPOSITORY TYPE CODE TESTS RESULT OUT OF REFERENCE UNITS RANGE LAB WBCR(LOINC 4.4 - 11.3 x10E9/L ) WBC 8.2 LAB NRBC(LOINC 0.0-0.0 /100 WBC ) NUCLEATED RBC 0.0 LAB RBCCT(LOIN 4.00 - 5.20 x10E12/L C) Low RBC 3.67 LAB HGB(LOINC) 12.0 - 16.0 g/dL Low HGB 10.4 LAB HCT(LOINC) 36.0 - 46.0 % Low HCT 32.1 LAB MCV(LOINC) 80 - 100 fL MCV 87 LAB MCHC2(LOIN 32.0 - 36.0 g/dL C) MCHC 32.4 LAB PLTCT(LOIN 150 - 450 x10E9/L C) PLT 278 LAB RDWCV(LOIN 11.5 - 14.5 % C) High RDW-CV 14.6 Performed By: #### CBC #### [facility] [address] [place] [address] BASIC METABOLIC PANEL Collected: 05/15/2018 Status: F Source: GORIN 8:09 [facility] REPOSITORY TYPE CODE TESTS RESULT OUT OF RANGE REFERENCE UNITS LAB GLU(LOINC) 74 - 99 mg/dL High GLUCOSE 134 LAB SOD(LOINC) 136 - 145 mmol/L Low SODIUM 134 LAB K(LOINC) 3.5 - 5.3 mmol/L POTASSIUM 3.8 LAB CHLOR(LOIN 98 - 107 mmol/L C) CHLORIDE 101 LAB BIC(LOINC) 21 - 32 mmol/L BICARBONATE 24 LAB ANGAP(LOIN 10 - 20 mmol/L C) ANION GAP 13 LAB UREA(LOINC 6 - 23 mg/dL ) UREA NITROGEN 23 LAB CREA(LOINC 0.50 - 1.05 mg/dL ) High CREATININE 1.17 LAB GFRFN(LOIN >60 mL/min/1.7 C) 3m2 GFR-NON Abnormal AM. 47 LAB GFRAA(LOIN >60 mL/min/1.7 C) 3m2 GFR- Abnormal AM. 57 Result Comment: CALCULATIONS OF ESTIMATED GFR ARE PERFORMED USING THE MDRD STUDY EQUATION FOR THE IDMS-TRACEABLE CREATININE METHODS. CLIN CHEM 2007;53:766-72 LAB CA(LOINC) 8.6 - 10.6 mg/dL CALCIUM 8.7 Performed By: #### BMP #### [facility] [address] [place] [address] DAILY PROGRESS Observed: 05/15/2018 Status: COMPLETED Source: UNIVERSITY NOTE-VASCULAR SURGERY 6:18 PM HOSPITALS REPOSITORY Service: Vascular Surgery Subjective Data: DAVINA GREEN is a 62 year old Female who is Hospital Day # 6. Some left big toe pain overnight. Toe feels numb. Patient follows up with podiatry that has been managing her ingrown toe nail. Objective Data: Objective Information: ---- Intake and Output ----- Mn/Dy/Year TimeIntakeOutputNet May 15, 2018 2:00 [id number] May 15, 2018 6:00 am000 May 14, 2018 10:00 [id number] The Intake and Output Totals for the last 24 hours are: IntakeOutputNet [id number] PRBPSpO2 Value36.88481240/7596% Date/Time05/15 15: 15: 12: 15: 15:56 Range(36.2C - 36.8C ) (87 - 100 ) (18 - 18 ) (102 - 147 )/ (64 - 81 ) (95% - 98% ) ---- Intake and Output ----- Mn/Dy/Year TimeIntakeOutputNet May 15, 2018 2:00 [id number] May 15, 2018 6:00 am000 May 14, 2018 10:00 [id number] The Intake and Output Totals for the last 24 hours are: IntakeOutputNet [id number] Physical Exam: Constitutional: NAD sitting up in bed Respiratory/Thorax: normal work of breathing on room air Cardiovascular: Monophasic DPs and PTs bilaterally Gastrointestinal: mildly distended, soft non tender. Musculoskeletal: moving all extremities x 4 Extremities: Left small toe is missing, the incision is well healed. Left great toe has an ingrown toe nail and is painful to touch. There is an area of black skin under the toe nail. Neurological: Alert and Oriented x3 CNII-XII intact; equal strength 5/5 bilaterally Psychological: appropriate mood and affect Skin: warm and dry Recent Lab Results: Results: I have reviewed these laboratory results: Hepatic Function Panel 11-May-2018 07:44:00 ResultValue Aspartate Transaminase, Serum 11 ALB 3.3 L T Bili 0.3 Bilirubin, Serum Direct - Conjugated 0.0 ALKP 104 Alanine Aminotransferase, Serum 12 T Pro 5.9 L Complete Blood Count + Differential 11-May-2018 07:44:00 ResultValue White Blood Cell Count 8.4 Nucleated Erythrocyte Count 0.0 Red Blood Cell Count 3.97 L HGB 11.3 L HCT 33.7 L MCV 85 MCHC 33.5 PLT 350 RDW-CV 14.2 Neutrophil % 55.6 Immature Granulocytes % 0.2 Lymphocyte % 25.8 Monocyte % 10.2 Eosinophil % 7.4 Basophil % 0.8 Neutrophil Count 4.65 Lymphocyte Count 2.16 Monocyte Count 0.85 Eosinophil Count 0.62 Basophil Count 0.07 Renal Function Panel 11-May-2018 07:44:00 ResultValue Glucose, Serum 165 H NA 139 K 3.9 CL 105 Bicarbonate, Serum 23 Anion Gap, Serum 15 BUN 23 CREAT 1.31 H GFR-Non 41 A GFR- 50 A Calcium, Serum 8.7 Phosphorus, Serum 3.7 ALB 3.3 L Coagulation Screen 11-May-2018 07:44:00 ResultValue Prothrombin Time, Plasma 12.7 International Normalized Ratio, Plasma 1.1 Activated Partial Thromboplastin Time 34 Magnesium, Serum 11-May-2018 07:44:00 ResultValue Magnesium, Serum 2.21 Hemoglobin A1C, Level 11-May-2018 07:44:00 ResultValue Estimated Average Glucose 143 Hemoglobin A1C, Level 6.6 Diagnosis of Diabetes-Adults Non-Diabetic: < or = 5.6% Increased risk for developing diabetes: 5.7-6.4% Diagnostic of diabetes: > or = 6.5% . Monitoring of Diabetes Age (y) Therapeutic Goal (%) Adults: >1 Radiology Results: Results: Conclusion: VASC LAB Pre-op Vessel Vein Mapping [May 11 2018 3:04PM] Conclusion: VASC LAB PVR (Arterial Physiologic) JOANA [May 11 2018 2:56PM] Conclusion: VASC LAB Carotid Artery Duplex Ultrasound [May 11 2018 2:51PM] Assessment and Plan: Assessment: 62 y/o female with HTN, HLD, DM, and stroke 8 years ago (no residual deficits) s/p left presents as a transfer from [facility] for CABG evaluation. Patient had some left toe nail pain. She follows up with podiatry that has been managing her ingrown toe nail. Her pulse exam is unchanged from prior. Suggestions: - If pain persists recommend podiatry consult for ingrown toe nail removal. Cale Matthews M.D. General Surgery PGY-1 Vascular Surgery [id number] Signature/Cosignature/Attestation: Attending AttestationI reviewed the resident/fellows documentation and discussed the patient with the resident/fellow. I agree with the resident/fellows medical decision making as documented in the residents note. Electronic Signatures: Cale Matthews (Resident)) (Signed 15-May-2018 18:24) Authored: Service, Subjective Data, Objective Data, Assessment and Plan, Signature/Cosignature/Attestation Thai Henley) (Signed 18-May-2018 08:16) Authored: Signature/Cosignature/Attestation Co-Signer: Service, Subjective Data, Objective Data, Assessment and Plan, Signature/Cosignature/Attestation Last Updated: 18-May-2018 08:16 by Thai Henley) MRI CARDIAC W/WO Observed: 05/15/2018 Status: F Source: UNIVERSITY CONTRAST FOR 3:04 PM HOSPITALS REPOSITORY MORPH/FUNCT AND VALVE [facility] CMR Report Name: DAVINA GREEN : 1955 Scan Date: 2018-05-15 13:56:18 Electronically signed by Cinthia Kamara 16:05:36 SUMMARY Cardiac MRI performed with and without contrast on a 1.5 T MRI system to evaluate myocardial morphology, function, and viability in a patient with coronary artery disease candidate for CABG. Findings: 1. The left ventricle is slightly enlarged with globally decreased systolic function and left ventricular ejection fraction of 37%. There is severe hypokinesia of the inferior wall. 2. There is delayed subendocardial enhancement of the base and mid inferior wall involving up to 50% of the myocardial thickness in keeping with sequela of infarction in the RCA territory with component of viable myocardium. No other areas of delayed enhancement is identified in the LAD or LCx territory. 3. There is small bilateral pleural effusion. 4. There is mild mitral and tricuspid regurgitation. 5. Mildly enlarged left atrium. CORE EXAM MEASUREMENTS VOLUMETRIC ANALYSIS . . . . . LV . Reference . RV . Reference . +------+ +------+ +----+ + . EDV . ml . 163 . (82-162) . . . . . ml/m^2 . 99.4 . (53-87) . . . . ESV . ml . 103 . (20-57) . . . . . ml/m^2 . 62.8 . (13-31) . . . . CO . L/min . 4.80 . . . . . . L/min/m^2 . 2.9 . . . . . MASS . g . 96 . (73-145) . . . . . g/m^2 . 58.5 . (48-78) . . . . SV . ml . 60 . (56-111) . . . . . ml/m^2 . 36.6 . (36-60) . . . . EF . % . 37 . (60-78) . . . '------+ +------+ +----+ ' CARDIAC OUTPUT HR: 80 bpm LV DIMENSIONS WALL THICKNESS - ANTEROSEPTAL: 1.0 cm WALL THICKNESS - INFEROLATERAL: 0.9 cm LV ZHANG: 5.7 cm LV ESD: 4.2 cm LA DIMENSIONS (LV SYSTOLE) AREA - 4 CHAMBER: 26 cm^2 LENGTH - 4 CHAMBER: 5.9 cm VALVES AORTIC VALVE AORTIC REGURGITANT VOLUME: 1.67 ml AORTIC REGURGITANT FRACTION: 3.18 % PEAK AORTIC VALVE VELOCITY: 111.43 cm/sec PEAK AORTIC VALVE GRADIENT: 4.97 mmHg 17 SEGMENT . . . Segments . Wall Motion . Hyperenhancement . Stress Perfusion . Interpretation . + + + + ----+ + . Base Anterior . Normal/Hyper . None . . . . Base Anteroseptal . Normal/Hyper . None . . . . Base Inferoseptal . Normal/Hyper . None . . . . Base Inferior . Severe Hypo . 26-50% . . . . Base Inferolateral . Normal/Hyper . None . . . . Base Anterolateral . Normal/Hyper . None . . . . Mid Anterior . Normal/Hyper . None . . . . Mid Anteroseptal . Normal/Hyper . None . . . . Mid Inferoseptal . Normal/Hyper . None . . . . Mid Inferior . Severe Hypo . 51-75% . . . . Mid Inferolateral . Normal/Hyper . None . . . . Mid Anterolateral . Normal/Hyper . None . . . . Apical Anterior . Normal/Hyper . None . . . . Apical Septal . Normal/Hyper . None . . . . Apical Inferior . Normal/Hyper . None . . . . Apical Lateral . Normal/Hyper . None . . . . [place] . Normal/Hyper . None . . . + + + + ----+ + . RV Segments . Wall Motion . Hyperenhancement . Stress Perfusion . Interpretation . + + + + ----+ + . RV Basal Anterior . Normal/Hyper . . . . . RV Basal Inferior . Normal/Hyper . . . . . RV Mid . Normal/Hyper . . . . . RV Apical . Normal/Hyper . . . . ' + + + ----+ ' FINDINGS INFARCT/SCAR SIZE: 6 % SCAN INFO GENERAL CONTRAST AGENT TYPE: Multihance VOLUME ADMINISTERED: 19 ml DOSAGE FOR 0.5M: 0.15 mmol/kg VITALS HEIGHT: 61.97 in HEIGHT: 157.40 cm WEIGHT: 139.99 lbs WEIGHT: 63.50 kgs BSA: 1.64 m^2 SETUP REFERRING PHYSICIAN: FAWAD KEENE ATTENDING PHYSICIAN: NICK RM Report generated by [employer], a product of [employer] Electronically signed by: CINTHIA COYLE MD DAILY PROGRESS Observed: 05/15/2018 Status: COMPLETED Source: UNIVERSITY NOTE-CARDIOLOGY 2:33 PM HOSPITALS REPOSITORY Service: Cardiology Subjective Data: DAVINA GREEN is a 62 year old Female who is Hospital Day # 6. Additional Information: Pt feels better, reports LLE toe pain Objective Data: Objective Information: ---- Intake and Output ----- Mn/Dy/Year TimeIntakeOutputNet May 15, 2018 2:00 [id number] May 15, 2018 6:00 am000 May 14, 2018 10:00 [id number] The Intake and Output Totals for the last 24 hours are: IntakeOutputNet [id number] T PRBPSpO2 Value36.36635754/8197% Date/Time05/15 12: 12: 12: 12: 12:03 Range(36.2C - 36.8C ) (87 - 100 ) (18 - 18 ) (102 - 147 )/ (64 - 81 ) (95% - 98% ) Weights 05/15 4:09: Weight in kg (Weight (kg)) 63.1 05/15 4:09: Weight in lbs ((lbs)) 139.3 Physical Exam: Constitutional: lying in bed in NAD Head/Neck: no JVD Respiratory/Thorax: CTAB Cardiovascular: Reg S1S2 Gastrointestinal: soft, ND/NT, BS+ Extremities: no LE edema Neurological: no focal deficits Psychological: Appropriate mood and behavior Skin: Warm and dry Medication: Medications: Continuous Medications No continuous medications are active Scheduled Medications 1. Aspirin Chewable: 81 mg Oral Daily 2. Atorvastatin: 40 mg Oral Daily 3. busPIRone (BUSPAR): 5 mg Oral Every 8 Hours 4. Carvedilol: 3.125 mg Oral 2 Times a Day 5. Docusate 50 mg - Senna 8.6 m tablet(s) Oral 2 Times a Day 6. Enoxaparin SubCutaneous: 40 mg SubCutaneous Every 24 Hours 7. hydrALAZINE: 25 mg Oral Every 8 Hours 8. Insulin Glargine (Lantus) Injectable: 12 unit(s) SubCutaneous Daily 9. Insulin Lispro Mild Corrective Scale: unit(s) SubCutaneous 3 Times a Day Before Meals 10. Mupirocin 2%: 0.5 application(s) Each Nostril 2 Times a Day 11. [place]-3 Acid Ethyl Esters: 2 gram(s) Oral 2 Times a Day PRN Medications 1. Acetaminophen: 650 mg Oral Every 4 Hours 2. Albuterol 2.5 mg/ 3 mL Nebulizer Soln: 3 mL Inhalation Every 4 Hours 3. Dextrose 50% in Water Injectable: 25 gram(s) IntraVenous Push Every 15 Minutes 4. Glucagon Injectable: 1 mg IntraMuscular Every 15 Minutes 5. LORazepam: 0.25 mg Oral Every 12 Hours 6. Ondansetron Injectable: 4 mg IntraVenous Push Every 6 Hours 7. oxyCODONE 5 mg - Acetaminophen 325 m tablet(s) Oral Every 4 Hours Conditional Medication Orders 1. Perflutren Lipid Microsphere (Activated) 1.3 mL / NaCL 0.9% T.V. 10 mL Injectable: 0.5 mL IntraVenous Push Once Recent Lab Results: Results: I have reviewed these laboratory results: Glucose_POCT Trending View [id number] 08:17:00 12-May-2018 21:32:00 12-May-2018 16:44:00 12-May-2018 11:53:00 12-May-2018 08:03:00 Glucose-URAR563 H 193 H 152 H 202 H 167 H Complete Blood Count 12-May-2018 20:15:00 ResultValue White Blood Cell Count 14.4 H Nucleated Erythrocyte Count 0.0 Red Blood Cell Count 4.55 HGB 13.0 HCT 38.9 MCV 85 MCHC 33.4 PLT 395 RDW-CV 14.5 Hepatic Function Panel 12-May-2018 20:05:00 ResultValue Aspartate Transaminase, Serum 11 ALB 3.5 T Bili 0.3 Bilirubin, Serum Direct - Conjugated 0.1 ALKP 107 Alanine Aminotransferase, Serum 11 T Pro 6.5 Basic Metabolic Panel 12-May-2018 20:05:00 ResultValue Glucose, Serum 171 H NA 134 L K 4.3 CL 99 Bicarbonate, Serum 24 Anion Gap, Serum 15 BUN 29 H CREAT 1.26 H GFR-Non 43 A GFR- 52 A Calcium, Serum 9.1 Lipase, Serum 12-May-2018 20:05:00 ResultValue Lipase, Serum 7 L Arterial Full Panel 12-May-2018 17:27:00 ResultValue pH, Arterial 7.44 H pCO2, Arterial 35 L pO2, Arterial 75 L Patient-Temperature 37.0 SO2, Arterial 97 HCT 38.0 Sodium-Level 135 L Potassium-Level 4.2 Chloride-Level 100 Calcium, Ionized-Level 1.22 Glucose-Level 167 H Lactate-Level 0.8 Base Excess-Blood 0.0 Bicarbonate, Calculated, Arterial 23.8 HGB, Calculated 12.9 Anion Gap-Level 15 Radiology Results: Results: Impression: Cardiomediastinal silhouette is at upper limit of normal for size. Otherwise, no acute cardiopulmonary process. Xray Chest 2 View PA + Lateral [May 11 2018 7:20PM] Conclusion: VASC LAB Pre-op Vessel Vein Mapping [May 11 2018 3:04PM] Conclusion: VASC LAB PVR (Arterial Physiologic) JOANA [May 11 2018 2:56PM] Conclusion: VASC LAB Carotid Artery Duplex Ultrasound [May 11 2018 2:51PM] Assessment and Plan: Assessment: 62 y/o female with a h/o HTN, HLD, and type II DM who presented with SOB and chest pain, found to have severe 3-vessel disease and transferred to [facility] for CABG evaluation. 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 Moderate narrowing at the proximal right common carotid artery Acute systolic HF - TTE 05/14: LVEF 35%, DD, Mild LVH, Mod MR, Mild to mod TR - Volume overloaded and diuresed at OSH - 05/11 CXR no acute processes - presently well compensated - SARA scheduled for - strict I/O's, daily wts - ALEJANDRA on hold for surgery, Cont BB Leukocytosis - WBCs 12.3 (13.9) (14.4) today - afebrile, no obvious source of infection - UA neg Abdominal pain/ N/ V - no BM two days, though pt reports could be her normal - PRN zofran - KUB neg - resolved HTN - SBP over last 24hrs 110s-130s - increased hydral to 25 TID Hyperlipidemia - cont statin Type II DM - Insulin glargine 12 units daily (home dose=18 units) - ISS, accuhecks - 05/11 Hgb A1C 6.6% Tobacco abuse - PFT's Full code DVT ppx: subcutaneous lovenox Disp - pending Cardiac Surg eval Seen and discussed with Dr. Rm Signature/Cosignature/Attestation: Comments/ Additional Findings I have interviewed and examined the patient and the documentation above reflects my edited findings and plans. Nick Rm MD, [facility] Electronic Signatures: Fawad Keene (PHYSICIAN)) (Signed 15-May-2018 14:50) Authored: Service, Subjective Data, Objective Data, Assessment and Plan, Signature/Cosignature/Attestation Brittany Rm) (Signed 04-Jun-2018 12:04) Authored: Signature/Cosignature/Attestation Co-Signer: Service, Subjective Data, Objective Data, Assessment and Plan, Signature/Cosignature/Attestation Last Updated: 04-Jun-2018 12:04 by Brittany Rm) GLUCOSE-POCT Collected: 05/15/2018 Status: F Source: GORIN 12:02 PM HOSPITALS REPOSITORY TYPE CODE TESTS RESULT OUT OF RANGE REFERENCE UNITS LAB GLUP(LOINC) 74 - 99 mg/dL High 144 GLUCOSE-POCT Performed By: #### GLUPO #### [facility] [address] [place] [address] GLUCOSE-POCT Collected: 05/15/2018 Status: F Source: GORIN 7:28 AM [facility] REPOSITORY TYPE CODE TESTS RESULT OUT OF RANGE REFERENCE UNITS LAB GLUP(LOINC) 74 - 99 mg/dL High 128 GLUCOSE-POCT Performed By: #### GLUPO #### [facility] [address] [place] [address] CBC Collected: 05/14/2018 Status: F Source: GORIN 7:20 [facility] REPOSITORY TYPE CODE TESTS RESULT OUT OF REFERENCE UNITS RANGE LAB WBCR(LOINC 4.4 - 11.3 x10E9/L ) WBC High 12.3 LAB NRBC(LOINC 0.0-0.0 /100 WBC ) NUCLEATED RBC 0.0 LAB RBCCT(LOIN 4.00 - 5.20 x10E12/L C) Low RBC 3.96 LAB HGB(LOINC) 12.0 - 16.0 g/dL Low HGB 11.4 LAB HCT(LOINC) 36.0 - 46.0 % Low HCT 35.0 LAB MCV(LOINC) 80 - 100 fL MCV 88 LAB MCHC2(LOIN 32.0 - 36.0 g/dL C) MCHC 32.6 LAB PLTCT(LOIN 150 - 450 x10E9/L C) PLT 332 LAB RDWCV(LOIN 11.5 - 14.5 % C) High RDW-CV 14.6 Performed By: #### CBC #### [facility] [address] [place] [address] BASIC METABOLIC PANEL Collected: 05/14/2018 Status: F Source: GORIN 7:20 PM HOSPITALS REPOSITORY TYPE CODE TESTS RESULT OUT OF RANGE REFERENCE UNITS LAB GLU(LOINC) 74 - 99 mg/dL High GLUCOSE 147 LAB SOD(LOINC) 136 - 145 mmol/L Low SODIUM 134 LAB K(LOINC) 3.5 - 5.3 mmol/L POTASSIUM 3.9 LAB CHLOR(LOIN 98 - 107 mmol/L C) CHLORIDE 100 LAB BIC(LOINC) 21 - 32 mmol/L BICARBONATE 22 LAB ANGAP(LOIN 10 - 20 mmol/L C) ANION GAP 16 LAB UREA(LOINC 6 - 23 mg/dL ) High UREA NITROGEN 28 LAB CREA(LOINC 0.50 - 1.05 mg/dL ) High CREATININE 1.34 LAB GFRFN(LOIN >60 mL/min/1.7 C) 3m2 GFR-NON Abnormal AM. 40 LAB GFRAA(LOIN >60 mL/min/1.7 C) 3m2 GFR- Abnormal AM. 48 Result Comment: CALCULATIONS OF ESTIMATED GFR ARE PERFORMED USING THE MDRD STUDY EQUATION FOR THE IDMS-TRACEABLE CREATININE METHODS. CLIN CHEM 2007;53:766-72 LAB CA(LOINC) 8.6 - 10.6 mg/dL CALCIUM 8.9 Performed By: #### BMP #### [facility] [address] [place] [address] URINE Observed: 05/14/2018 Status: F Source: GORIN CULTURE,BACTERIAL 5:34 HOSPITALS REPOSITORY PATIENT: DAVINA GREEN LOCATION: [place] [address] BILL#: [id number] : 55 AGE: SEX: F ORDERED BY: JOVANI GUERRERO SOURCE: URINE COLLECTED: 05/14/18 17:34 ANTIBIOTICS AT JULIET.: RECEIVED : 05/14/18 18:57 SITE: Clean Catch/Voided R E S U L T S URINE CULTURE,BACTERIAL FINAL 05/16/18 13:29 ISOLATE1 : Klebsiella pneumoniae >100,000 CFU/ML ISOLATE2 : Citrobacter freundii >100,000 CFU/ML SECOND AND THIRD GENERATION CEPHALOSPORIN RESULTS ARE NOT REPORTED RESISTANCE TO SECOND AND THIRD GENERATION CEPHALOSPORINS MAY DEVELOP DURING THERAPY WITH THESE AGENTS. Organism Kl pneum Cit freundii Antibiotic BP INTRP BP INTRP Ampicillin R R Amox/Clavulanate S Cefazolin S R Ciprofloxacin S S Nitrofurantoin S S Gentamicin S S Levofloxacin S S Piperc/Tazobact S S Trimeth/Sulfa S S Tetracycline S S Cefepime S S=SUSCEPTIBLE I=INTERMEDIATE R=RESISTANT SDD=SUSCEPTIBLE DOSE DEPENDENT NS=NONSUSCEPTIBLE X=REPORTED IN ERROR Performed By: #### URINC #### [facility] [address] [place] [address] GLUCOSE-POCT Collected: 05/14/2018 Status: F Source: GORIN 5:19 PM HOSPITALS REPOSITORY TYPE CODE TESTS RESULT OUT OF RANGE REFERENCE UNITS LAB GLUP(LOINC) 74 - 99 mg/dL High 172 GLUCOSE-POCT Performed By: #### GLUPO #### [facility] [address] [place] [address] DAILY PROGRESS Observed: 05/14/2018 Status: COMPLETED Source: UNIVERSITY NOTE-CARDIOLOGY 3:50 PM HOSPITALS REPOSITORY Service: Cardiology Subjective Data: DAVINA GREEN is a 62 year old Female who is Hospital Day # 5. Additional Information: Pt feels better, no further ABD discomfort Objective Data: Objective Information: ---- Intake and Output ----- Mn/Dy/Year TimeIntakeOutputNet May 14, 2018 2:00 pm000 May 13, 2018 10:00 [id number] The Intake and Output Totals for the last 24 hours are: IntakeOutputNet 480nullnull T PRBPSpO2 Value36.824992987/8299% Date/Time05/14 12: 12: 12: 12: 12:40 Range(36.2C - 36.7C ) (85 - 110 ) (18 - 18 ) (116 - 149 )/ (70 - 82 ) (92% - 99% ) Weights 05/14 5:03: Weight in kg (Weight (kg)) 63.5 05/14 5:03: Weight in lbs ((lbs)) 140 Physical Exam: Constitutional: lying in bed in NAD Head/Neck: no JVD Respiratory/Thorax: CTAB Cardiovascular: Reg S1S2 Gastrointestinal: soft, ND/NT, BS+ Extremities: no LE edema Neurological: no focal deficits Psychological: Appropriate mood and behavior Skin: Warm and dry Medication: Medications: Continuous Medications No continuous medications are active Scheduled Medications 1. Ammonia N-13 - (Radiology Contrast): 10 milliCurie IntraVenous Push Once 2. Aspirin Chewable: 81 mg Oral Daily 3. Atorvastatin: 40 mg Oral Daily 4. busPIRone (BUSPAR): 5 mg Oral Every 8 Hours 5. Carvedilol: 3.125 mg Oral 2 Times a Day 6. Docusate 50 mg - Senna 8.6 m tablet(s) Oral 2 Times a Day 7. Enoxaparin SubCutaneous: 40 mg SubCutaneous Every 24 Hours 8. hydrALAZINE: 25 mg Oral Every 8 Hours 9. Insulin Glargine (Lantus) Injectable: 12 unit(s) SubCutaneous Daily 10. Insulin Lispro Mild Corrective Scale: unit(s) SubCutaneous 3 Times a Day Before Meals 11. Mupirocin 2%: 0.5 application(s) Each Nostril 2 Times a Day 12. [place]-3 Acid Ethyl Esters: 2 gram(s) Oral 2 Times a Day PRN Medications 1. Acetaminophen: 650 mg Oral Every 4 Hours 2. Albuterol 2.5 mg/ 3 mL Nebulizer Soln: 3 mL Inhalation Every 4 Hours 3. Dextrose 50% in Water Injectable: 25 gram(s) IntraVenous Push Every 15 Minutes 4. Glucagon Injectable: 1 mg IntraMuscular Every 15 Minutes 5. LORazepam: 0.25 mg Oral Every 12 Hours 6. Ondansetron Injectable: 4 mg IntraVenous Push Every 6 Hours Conditional Medication Orders 1. Perflutren Lipid Microsphere (Activated) 1.3 mL / NaCL 0.9% T.V. 10 mL Injectable: 0.5 mL IntraVenous Push Once Recent Lab Results: Results: I have reviewed these laboratory results: Glucose_POCT Trending View [id number] 08:17:00 12-May-2018 21:32:00 12-May-2018 16:44:00 12-May-2018 11:53:00 12-May-2018 08:03:00 [id number] H 193 H 152 H 202 H 167 H Complete Blood Count 12-May-2018 20:15:00 ResultValue White Blood Cell Count 14.4 H Nucleated Erythrocyte Count 0.0 Red Blood Cell Count 4.55 HGB 13.0 HCT 38.9 MCV 85 MCHC 33.4 PLT 395 RDW-CV 14.5 Hepatic Function Panel 12-May-2018 20:05:00 ResultValue Aspartate Transaminase, Serum 11 ALB 3.5 T Bili 0.3 Bilirubin, Serum Direct - Conjugated 0.1 ALKP 107 Alanine Aminotransferase, Serum 11 T Pro 6.5 Basic Metabolic Panel 12-May-2018 20:05:00 ResultValue Glucose, Serum 171 H NA 134 L K 4.3 CL 99 Bicarbonate, Serum 24 Anion Gap, Serum 15 BUN 29 H CREAT 1.26 H GFR-Non 43 A GFR- 52 A Calcium, Serum 9.1 Lipase, Serum 12-May-2018 20:05:00 ResultValue Lipase, Serum 7 L Arterial Full Panel 12-May-2018 17:27:00 ResultValue pH, Arterial 7.44 H pCO2, Arterial 35 L pO2, Arterial 75 L Patient-Temperature 37.0 SO2, Arterial 97 HCT 38.0 Sodium-Level 135 L Potassium-Level 4.2 Chloride-Level 100 Calcium, Ionized-Level 1.22 Glucose-Level 167 H Lactate-Level 0.8 Base Excess-Blood 0.0 Bicarbonate, Calculated, Arterial 23.8 HGB, Calculated 12.9 Anion Gap-Level 15 Radiology Results: Results: Impression: Cardiomediastinal silhouette is at upper limit of normal for size. Otherwise, no acute cardiopulmonary process. Xray Chest 2 View PA + Lateral [May 11 2018 7:20PM] Conclusion: VASC LAB Pre-op Vessel Vein Mapping [May 11 2018 3:04PM] Conclusion: VASC LAB PVR (Arterial Physiologic) JOANA [May 11 2018 2:56PM] Conclusion: VASC LAB Carotid Artery Duplex Ultrasound [May 11 2018 2:51PM] Assessment and Plan: Assessment: 62 y/o female with a h/o HTN, HLD, and type II DM who presented with SOB and chest pain, found to have severe 3-vessel disease and transferred to [facility] for CABG evaluation. 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 Moderate narrowing at the proximal right common carotid artery Acute systolic HF - LVEF at OSH 37% - Volume overloaded and diuresed at OSH - 05/11 CXR no acute processes - presently well compensated - SARA scheduled for Monday - strict I/O's, daily wts - ALEJANDRA on hold for surgery, Cont BB Leukocytosis - WBCs 13.9 (14.4) today - afebrile, no obvious source of infection - UA neg Abdominal pain/ N/ V - no BM two days, though pt reports could be her normal - PRN zofran - KUB neg - resolved HTN - SBP over last 24hrs 110s-130s - increased hydral to 25 TID Hyperlipidemia - cont statin Type II DM - Insulin glargine 12 units daily (home dose=18 units) - ISS, accuhecks - 05/11 Hgb A1C 6.6% Tobacco abuse - PFT's Full code DVT ppx: subcutaneous lovenox Disp - pending Cardiac Surg eval Seen and discussed with Dr. Rm Signature/Cosignature/Attestation: Comments/ Additional Findings I have interviewed and examined the patient and the documentation above reflects my edited findings and plans. Nick Rm MD, [facility] Electronic Signatures: Fawad Keene (PA (PHYSICIAN)) (Signed 14-May-2018 16:03) Authored: Service, Subjective Data, Objective Data, Assessment and Plan, Signature/Cosignature/Attestation Brittany Rm) (Signed 04-Jun-2018 11:58) Authored: Signature/Cosignature/Attestation Co-Signer: Assessment and Plan, Signature/Cosignature/Attestation Last Updated: 04-Jun-2018 11:58 by Brittany Rm) ECHOCARDIOGRAM Observed: 05/14/2018 Status: F Source: GORIN 2:52 PM [facility], [address] [place] [address] and TRANSTHORACIC ECHOCARDIOGRAM REPORT Patient Name: DAVINA Hannon Physician: [id number] Dennys Lainez MD Study Date: 05/14/2018 Referring Physician: Nick Rm MD MRN/PID: [id number] PCP: Accession/Order#: [id number] Department Location: [place] [facility] Non In[facility] Date of : 1955 Fellow: Gender: F Nurse: Lucina Merlos RN Admit Date: 05/10/2018 Pin Drafting Machine Tender: Lianet Ingram [facility] Admission Status: Inpatient - Additional Staff: Routine Height: 157.00 cm CC Report to: Beckie T7 [facility] Weight: 64.00 kg Study Type: Echocardiogram BSA: 1.64 m2 Blood Pressure: 149 /82 mmHg Diagnosis/ICD: I42.9-Cardiomyopathy, unspecified Indication: Cardiomyopathy Procedure/CPT: Echo Complete w Full [id number] Patient History: Pertinent History: HTN, Hyperlipidemia, CAD and Chest Pain. cardiomyopathy, PAD, DMII. Study Detail: The following Echo studies were performed: 2D, M-Mode, Doppler and color flow. Definity used as a contrast agent for endocardial border definition and agitated saline used as a contrast agent for intraseptal flow evaluation. Total contrast used for this procedure was 4.0 mL via IV push. PHYSICIAN INTERPRETATION: Left Ventricle: The left ventricular systolic function is moderately decreased, with an estimated ejection fraction of 35%. The left ventricular cavity size is mildly dilated. There is mild eccentric le ft ventricular hypertrophy. Spectral Doppler shows a pseudonormal pattern of left ventricular diastolic filling. There are elevated left atrial and left ventricular end diastolic pressures. There is inferior and anteroseptal hypo- to akinesia. Left Atrium: The left atrium is moderately dilated. There is no evidence of a patent foramen ovale. A bubble study using agitated saline was performed. Bubble study is negative. Right Ventricle: The right ventricle is normal in size. There is low normal right ventricular systolic function. Right Atrium: The right atrium is normal in size. Aortic Valve: The aortic valve is trileaflet. There is no evidence of aortic valve regurgitation. The peak instantaneous gradient of the aortic valve is 8.8 mmHg. Mitral Valve: The mitral valve is normal in structure. There is mild to moderate mitral valve regurgitation. Tricuspid Valve: The tricuspid valve is structurally normal. There is mild to moderate tricuspid regurgitation. The Doppler estimated RVSP is mild to moderately elevated at 47.9 mmHg. Pulmonic Valve: The pulmonic valve is structurally normal. There is trace pulmonic valve regurgitation. Pericardium: There is no pericardial effusion noted. Aorta: The aortic root is normal. Systemic Veins: The inferior vena cava appears to be of normal size. There is less than 50% IVC collapse with inspiration. CONCLUSIONS: 1. The left ventricular systolic function is moderately decreased with a 35% estimated ejection fraction. 2. Spectral Doppler shows a pseudonormal pattern of left ventricular diastolic filling. 3. There are elevated left atrial and left ventricular end diastolic pressures. 4. There is mild eccentric left ventricular hypertrophy. 5. The left atrium is moderately dilated. 6. Mild to moderate mitral valve regurgitation. 7. Mild to moderately elevated right ventricular systolic pressure. 8. There is mild to moderate tricuspid regurgitation. 9. There is no evidence of a patent foramen ovale. QUANTITATIVE DATA SUMMARY: 2D MEASUREMENTS: Normal Ranges: LAs: 4.20 cm (2.7-4.0cm) IVSd: 1.31 cm (0.6-1.1cm) LVPWd: 1.16 cm (0.6-1.1cm) LVIDd: 4.74 cm (3.9-5.9cm) LVIDs: 3.72 cm LV Mass Index: 136.1 g/m2 LV % FS 21.5 % LA VOLUME: Normal Ranges: LA Vol A4C: 71.5 ml (22+/-6mL/m2) LA Vol A2C: 83.1 ml LA Vol BP: 77.4 ml LA Vol Index A4C: 43.5ml/m2 LA Vol Index A2C: 50.5 ml/m2 LA Vol Index BP: 47.1 ml/m2 LA Area A4C: 21.8 cm2 LA Area A2C: 23.6 cm2 LA [place] A4C: 5.6 cm LA [place] A2C: 5.7 cm RA VOLUME BY A/L METHOD: Normal Ranges: RA Area A4C: 9.5 cm2 M-MODE MEASUREMENTS: Normal Ranges: Ao Root: 2.80 cm (2.0-3.7cm) AoV Exc: 1.60 cm (1.5-2.5cm) LAs: 4.50 cm (2.7-4.0cm) AORTA MEASUREMENTS: Normal Ranges: AoV Exc: 1.60 cm (1.5-2.5cm) Asc Ao, d: 2.90 cm (2.1-3.4cm) LV SYSTOLIC FUNCTION BY 2D PLANIMETRY (MOD): Normal Ranges: EF-A4C View: 36.8 % (>55%) EF-A2C View: 36.1 % EF-Biplane: 35.2 % LV DIASTOLIC FUNCTION: Normal Ranges: MV Peak E: 1.04 m/s (0.7-1.2 m/s) MV Peak A: 0.96 m/s (0.42-0.7 m/s) E/A Ratio: 1.08 (1.0-2.2) MV e' 0.05 m/s (>8.0) MV lateral e' 0.08 m/s MV medial e' 0.03 m/s MV A Dur: 63.00 msec E/e' Ratio: 19.00 (<8.0) MV DT: 121 msec (150-240 msec) PulmV Sys Jazmine: 54.40 cm/s PulmV Stevenson Jazmine: 80.60 cm/s PulmV S/D Jazmine: 0.70 PulmV A Revs Jazmine: 35.10 cm/s PulmV A Revs Dur: 63.00 msec MITRAL INSUFFICIENCY: Normal Ranges: PISA Radius: 0.3 cm MR VTI: 165.00 cm MR Vmax: 571.33 cm/s AORTIC VALVE: Normal Ranges: AoV Vmax: 1.48 m/s (<1.7m/s) AoV Peak P.8 mmHg (<20mmHg) LVOT Max Jazmine: 1.14 m/s (<1.1m/s) LVOT VTI: 19.50 cm LVOT Diameter: 1.80 cm (1.8-2.4cm) AoV Area,Vmax: 1.96 cm2 (2.5-4.5cm2) RIGHT VENTRICLE: RV 1 3.36 cm RV 2 2.40 cm RV 3 6.90 cm TAPSE: 17.7 mm RV s' 0.12 m/s TRICUSPID VALVE/RVSP: Normal Ranges: Peak TR Velocity: 3.16 m/s RV Syst Pressure: 47.9 mmHg (< 30mmHg) IVC Diam: 1.43 cm PULMONIC VALVE: Normal Ranges: PV Accel Time: 111 msec (>120ms) PV Max Jazmine: 1.0 m/s (0.6-0.9m/s) PV Max P.9 mmHg Pulmonary Veins: PulmV A Revs Dur: 63.00 msec PulmV A Revs Jazmine: 35.10 cm/s PulmV Stevenson Jazmine: 80.60 cm/s PulmV S/D Jazmine: 0.70 PulmV Sys Jazmine: 54.40 cm/s [id number] Dennys Lainez MD Electronically signed on 05/14/2018 at 4:52:37 PM Final GLUCOSE-POCT Collected: 05/14/2018 Status: F Source: GORIN 12:38 PM HOSPITALS REPOSITORY TYPE CODE TESTS RESULT OUT OF RANGE REFERENCE UNITS LAB GLUP(LOINC) 74 - 99 mg/dL High 137 GLUCOSE-POCT Performed By: #### GLUPO #### [facility] [address] [place] [address] EMR ADDON Collected: 05/14/2018 Status: F Source: GORIN 12:23 PM [facility] REPOSITORY TYPE CODE TESTS RESULT OUT OF REFERENCE UNITS RANGE LAB EMRAC(LOIN C) ADDON CONFIRMATION REQUEST REC'D Performed By: #### EMRAD #### NO LOCATION NEEDED DISCHARGE PROFILE2 Observed: 05/14/2018 Status: UNK Source: GORIN 9:23 AM HOSPITALS REPOSITORY Discharge Orders: Anticipated Discharge Date: Anticipated Discharge [id number] Problem List: Admitting Dx: CAD (coronary artery disease): Catalog Name: Atherosclerotic heart disease of [place] coronary artery without angina pectoris Additional Dx: Ischemic cardiomyopathy: Catalog Name: Ischemic cardiomyopathy Prelim Disch Dx: PAD (peripheral artery disease): Catalog Name: Peripheral vascular disease, unspecified Tobacco abuse: Catalog Name: Tobacco use DM (diabetes mellitus): Catalog Name: Type 2 diabetes mellitus without complications Hyperlipidemia: Catalog Name: Hyperlipidemia, unspecified HTN (hypertension): Catalog Name: Essential (primary) hypertension CAD (coronary artery disease): Catalog Name: Atherosclerotic heart disease of [place] coronary artery without angina pectoris Activity: activity as tolerated. No pushing, pulling, or lifting objects greater than 10 pounds for 1 week(s) after catheretization. Diet: Dietlow fat, diabetic/carbohydrate counted Diabetic/Carbohydrate [id number]/Carb meal, 30gram/Carb snack (1600-1800cals) Wound Care 1: Wound Siteright groin Wound Typevascular access (cardiac catheterization) site Cleanse Withsoap and water Instructionsno lotions, creams, or tub soaks Other InstructionsNo tub bathing or swimming for 1 week after cath, if site begins to bleed lay down and apply pressure directly over site for 5 minutes if continues to bleed then call 911 Call Provider If (Homegoing Patients): Any new concerning symptoms. Heart Failure: Patient Instructions: - CALL 911 IF YOU HAVE ANY OF THE SIGNS AND SYMPTOMS OF HEART FAILURE: 1. Chest pain 2. Significant Shortness of breath 3. Fainting. - Notify your physician immediately if you have shortness of breath; weight gain of 3 lbs. or more; fatigue and loss of energy; swelling of lower extremities or abdomen; dizziness or fainting; change of appetite; and frequent coughing. - Patient received Living With Heart Failure book. - Daily weight on the same scale, same time after voiding and before eating. - Maintain daily weight log. Activity: - Balance activity with rest, gradually increase your activity as tolerated. - Exercise as prescribed by your physician. LVEF % at Discharge: Left Ventricular Ejection Fraction %35% Vascular: Patient Instructions: - Call 911 or go directly to the Emergency Room if you have ANY of the Signs or Symptoms of Stroke: 1. Sudden Weakness or numbness of the face, arm or leg, especially on one side of the body. 2. Sudden difficulty speaking or understanding. 3. Sudden trouble seeing in one or both eyes. 4. Sudden trouble walking, dizziness, loss of balance or lack of coordination. 5. Persistent one-sided headache. 6. Loss of consciousness or decreased consciousness, fainting or seizures. - Always carry a current medication list with you and bring it to all healthcare provider visits. - Continue cough & deep breathing exercises, four times a day. - If you currently smoke or have smoked within the past 12 months, you are advised to stop smoking. General Wound Care: - Do NOT allow anyone but the Vascular Surgeon to remove liz or sutures. Call Physician If: - Loss of movement or feeling, unusual tingling, coolness or changes in the skin color of your legs. - Immediately for neck swelling or bleeding from the surgical incision. - If you have bleeding, bad smelling drainage or increased swelling at the incisional site. - Abdominal bloating, trouble urinating or trouble with bowel movements. - Fever greater than 100 degrees Fahrenheit. Follow-Up - Vascular Surgeon: Physician/Dept./ServiceVascular Surgeon Hospital Course (Home Care/Gold Form): Hospital Course: Hospital Course: include significant abnormal lab values 62 y/o female with a h/o HTN, HLD, type II DM, and stroke (no residual deficits) presents as a transfer from [facility] for CABG evaluation. She presented to [facility] 05/[facility] with two days of intermittent sharp substernal chest pain and SOB while laying flat. She also reports worsening fatigue over the past year. In the ED, EKG showed sinus tachycardia, lateral ST depressions, and TWI in V5 and V6. CXR showed central venous congestion. Labs were notable for troponin 0.13. She was given ASA, morphine, and Zofran and admitted for ACS rule-out. TTE done showed an EF of 37% and diastolic dysfunction. Cardiology were consulted and the patient was started on Lasix and carvedilol as well as ASA and Plavix (per the notes and confirmed by patient). She underwent a cardiac cath which showed severe three-vessel disease with 90% stenosis of the LAD, 80-90% stenosis of the left circumflex, and a completely occluded right coronary. She was transferred to [facility] for CABG evaluation. The patient denies any pain at this time and reports that her breathing is now much improved. She denies any nausea, vomiting, fever, or chills and has no other complaints at this time. Vascular surgery was consulted for carotid stenosis seen on ultrasound. Carotid duplex: R: < 50% stenosis, L >50% stenosis, ABIs: R ratio 0.66, 0.70, L ratio 0.59, brachial pressure 124mmHg on right and 103mmHg on left, CTA head and neck 05/12: Severe stenosis at the origin of the left internal carotid artery. Moderate narrowing at the proximal right common carotid artery. No surgical intervention was needed at this time except Vasc f/u in one month with Dr. Jimenez at [facility]. On 05/15 she underwent Cardiac MRI for viability: LVEF 37%, delayed subendocardial enhancement of the base and mid inferior wall involving up to 50% of the myocardial thickness in keeping with the sequela of infarction in the RCA territory with component of viable myocardium. No other areas of delayed enhancement is identified in the LAD or LCx territory. On 05/17 she had 10 teeth extracted. Her films were reviewed and it was determined she could undergo PCI instead of CABG. 05/18 she had LHC with Dr. Keith ### Discharge weight ## All labs reviewed and vital signs stable. It is determined that the patient was medically stable and ready for discharge. More than 30 minutes were spent coordinating discharge. Infectious Disease: PPD Statusnot given MRSAno VREno C. Diffno Other Resistant Organismno Isolation Typenone Provider FINAL REVIEW of Orders: Final Review: Final Review of Medication Reconciliation and Orders Completedby Physician Reviewing ProviderBrittany Rm MD at 04-Jun-2018 11:57:44 Appointments: Follow-Up Appointment 01: Physician/Dept/Kaleb (cardiology) Reason for Referralcoronary artery disease Call to Schedule in1 week, Patient/Family/Parent prefers to schedule appointment [facility] Phone Numbercall for an appointment Commentsan appointment has been requested for you, if this has not been scheduled within 2 -3 days after discharge then call to schedule Follow-Up Appointment 02: Physician/Dept/ServiceDr. Thai Henley/Vascular Surgery Reason for ReferralHospital Follow Up/subclavian artery/carotid Scheduled Date/[id number] 10:40 [facility]-[address] [place] [address] [address] Phone [phone] Commentsplease call with questions or concerns regarding this appointment Follow-Up Appointment 03: Physician/Dept/ServiceDr. Velma Jimenez Vascular Scheduled Date/[id number] 13:20 [address] [facility] [address]. [address] Phone [phone] CommentsOrder received after discharge Follow-Up Appointment 04: Physician/Dept/Service. Charles Good, Cardiology Call to Schedule inOffice requests you call to schedule appointment Phone [phone] CommentsOrder received after discharge Follow-Up Appointment 05: Physician/Dept/Service. Ivy Jimenez PCP Scheduled Date/[id number] 15:00 [address] [place]. [address] Phone [phone] CommentsOrder received after discharge Electronic Signatures: Fawad Keene (PHYSICIAN)) (Signed 16-May-2018 16:01) Authored: Discharge Orders, Hospital Course (Home Care/Gold Form) Wen Henriquez (PT SVS REP) (Signed 23-May-2018 13:36) Authored: Discharge Orders, Appointments Bekah Tucker (RN) (Signed 14-May-2018 09:25) Authored: Vascular, Appointments, Gold Form - Entertainment Manager Summary Brittany Rm) (Signed 04-Jun-2018 11:57) Authored: Provider FINAL REVIEW of Orders Co-Signer: Discharge Orders, Provider FINAL REVIEW of Orders, Appointments Larry Mcginnis (COMMUNICATIONS PROGRAM MANAGER-[facility]) (Signed 17-May-2018 17:41) Authored: Discharge Orders, Heart Failure, Hospital Course (Home Care/Gold Form) Von Jovani Domenic (COMMUNICATIONS PROGRAM MANAGER-CREDIT CONTROL ADMINISTRATOR) (Signed 20-May-2018 13:21) Authored: Discharge Orders, Provider FINAL REVIEW of Orders, Appointments Last Updated: 04-Jun-2018 11:57 by Brittany Rm) GLUCOSE-POCT Collected: 05/14/2018 Status: F Source: GORIN 7:58 AM [facility]OSPITALS REPOSITORY TYPE CODE TESTS RESULT OUT OF RANGE REFERENCE UNITS LAB GLUP(LOINC) 74 - 99 mg/dL High 124 GLUCOSE-POCT Performed By: #### GLUPO #### [facility] [address] [place] [address] GLUCOSE-POCT Collected: 05/13/2018 Status: F Source: GORIN 11:15 PM [facility] REPOSITORY TYPE CODE TESTS RESULT OUT OF RANGE REFERENCE UNITS LAB GLUP(LOINC) 74 - 99 mg/dL High 100 GLUCOSE-POCT Performed By: #### GLUPO #### [facility] [address] [place] [address] CBC Collected: 05/13/2018 Status: F Source: GORIN 7:32 PM [facility]OSPITALS REPOSITORY TYPE CODE TESTS RESULT OUT OF REFERENCE UNITS RANGE LAB WBCR(LOINC 4.4 - 11.3 x10E9/L ) WBC High 13.9 LAB NRBC(LOINC 0.0-0.0 /100 WBC ) NUCLEATED RBC 0.0 LAB RBCCT(LOIN 4.00 - 5.20 x10E12/L C) RBC 4.37 LAB HGB(LOINC) 12.0 - 16.0 g/dL HGB 12.5 LAB HCT(LOINC) 36.0 - 46.0 % HCT 37.7 LAB MCV(LOINC) 80 - 100 fL MCV 86 LAB MCHC2(LOIN 32.0 - 36.0 g/dL C) MCHC 33.2 LAB PLTCT(LOIN 150 - 450 x10E9/L C) PLT 372 LAB RDWCV(LOIN 11.5 - 14.5 % C) High RDW-CV 14.6 Performed By: #### CBC #### [facility] [address] [place] [address] BASIC METABOLIC PANEL Collected: 05/13/2018 Status: CANCELLED Source: GOR[facility] 7:32 PM HOSPITALS REPOSITORY Order Comment: TEST BASIC METABOLIC PANEL WAS CANCELLED, 05/13/2018 21:14 EDTA CONTAMINATION. TYPE CODE TESTS RESULT OUT OF REFERENCE UNITS RANGE LAB GLU(LOINC) GLUCOSE Canceled LAB SOD(LOINC) SODIUM Canceled LAB K(LOINC) POTASSIUM Canceled LAB CHLOR(LOIN C) CHLORIDE Canceled LAB BIC(LOINC) BICARBONATE Canceled LAB ANGAP(LOIN C) ANION GAP Canceled LAB UREA(LOINC ) UREA NITROGEN Canceled LAB CREA(LOINC ) CREATININE Canceled LAB GFRFN(LOIN C) GFR-NON AM. Canceled LAB GFRAA(LOIN C) GFR- AM. Canceled Result Comment: CALCULATIONS OF ESTIMATED GFR ARE PERFORMED USING THE MDRD STUDY EQUATION FOR THE IDMS-TRACEABLE CREATININE METHODS. CLIN CHEM 2007;53:766-72 LAB CA(LOINC) Canceled CALCIUM Performed By: #### BMP #### [facility] [address] [place] [address] URINALYSIS Collected: 05/13/2018 Status: F Source: GORIN 4:49 PM HOSPITALS REPOSITORY TYPE CODE TESTS RESULT OUT OF RANGE REFERENCE UNITS LAB COLU(LOIN STRAW,YELLOW C) COLOR YELLOW LAB APPRU(JENNIFER CLEAR NC) APPEARANCE HAZY LAB SPGRU(JENNIFER 1.005 - 1.035 NC) High SPECIFIC GRAVITY 1.042 LAB AYLIN(LOINC 5.0 - 8.0 ) pH 5.0 LAB PROTU(JENNIFER NEGATIVE mg/dL NC) PROTEIN Abnormal 100 (2+) LAB GLUCU(JENNIFER NEGATIVE mg/dL NC) GLUCOSE NEGATIVE LAB BLDU(LOIN NEGATIVE C) BLOOD NEGATIVE LAB KETU(LOIN NEGATIVE mg/dL C) KETONES Abnormal 20 (1+) LAB BILIU(JENNIFER NEGATIVE NC) BILIRUBIN NEGATIVE LAB UROU2(JENNIFER 0.0 - 1.9 mg/dL NC) UROBILINOGEN <2.0 LAB NITRU(JENNIFER NEGATIVE NC) NITRITE NEGATIVE LAB LEUKU(JENNIFER NEGATIVE NC) LEUKOCYTE ESTERASE NEGATIVE Performed By: #### UA #### [facility] [address] [place] [address] UA MICROSCOPIC Collected: 05/13/2018 Status: F Source: GORIN 4:49 [facility] REPOSITORY TYPE CODE TESTS RESULT OUT OF RANGE REFERENCE UNITS LAB WBCUR(LOIN 0-5 /HPF C) WBC None LAB RBCUR(LOIN 0-5 /HPF C) RBC 3 LAB EPSQE(LOIN /HPF C) SQUAMOUS 2 EPITH. CELLS LAB MUCOU(LOIN /LPF C) MUCUS 1+ LAB HYCUR(LOIN /LPF C) Abnormal HYALINE CAST 2+ Performed By: #### UAMIC #### [facility] [address] [place] [address] URINE Observed: 05/13/2018 Status: F Source: GORIN CULTURE,BACTERIAL 4:49 [facility] REPOSITORY PATIENT: DAVINA GREEN LOCATION: [place] [address] BILL#: [id number] : 55 AGE: SEX: F ORDERED BY: LARRY MCGINNIS SOURCE: URINE COLLECTED: 05/13/18 16:49 ANTIBIOTICS AT JULIET.: RECEIVED : 05/13/18 19:41 SITE: Clean Catch/Voided R E S U L T S URINE CULTURE,BACTERIAL FINAL 05/14/18 14:24 MULTIPLE ORGANISMS PRESENT, PROBABLE CONTAMINATION PLEASE REPEAT CULTURE. Performed By: #### URINC #### [facility] [address] [place] [address] GLUCOSE-POCT Collected: 05/13/2018 Status: F Source: GORIN 4:42 [facility] REPOSITORY TYPE CODE TESTS RESULT OUT OF RANGE REFERENCE UNITS LAB GLUP(LOINC) 74 - 99 mg/dL High 201 GLUCOSE-POCT Performed By: #### GLUPO #### [facility] [address] [place] [address] TH ABDOMEN AP VIEW Observed: 05/13/2018 Status: F Source: GORIN 2:39 PM HOSPITALS REPOSITORY Patient Name: DAVINA GREEN STUDY: TH ABDOMEN AP VIEW; 05/13/2018 2:39 pm INDICATION: Signs/Symptoms: abd pain, ?stool burden. COMPARISON: None. ACCESSION NUMBER(S): [id number] ORDERING CLINICIAN: LARRY MCGINNIS FINDINGS: Nonobstructive bowel gas pattern. Moderate fecal burden within the ascending colon. Limited evaluation of pneumoperitoneum on supine imaging, however no gross evidence of free air is noted. Excreted contrast from recent contrast enhanced CT study is seen within the bladder. Visualized lungs are clear. Osseous structures demonstrate no acute bony changes. Moderate degenerative changes are seen in both hips and at the lower lumbosacral spine. IMPRESSION: 1. Nonobstructive bowel gas pattern. I personally reviewed the images/study and I agree with the findings as stated. This study was interpreted at [facility], [place], [place]. Electronically signed by: Rolf VALLE MD GLUCOSE-POCT Collected: 05/13/2018 Status: F Source: GORIN 11:43 AM [facility]OSPITALS REPOSITORY TYPE CODE TESTS RESULT OUT OF RANGE REFERENCE UNITS LAB GLUP(LOINC) 74 - 99 mg/dL High 163 GLUCOSE-POCT Performed By: #### GLUPO #### [facility] [address] [place] [address] CLINICAL EVENT Observed: 05/13/2018 Status: UNK Source: GORIN NOTE-VASCULAR SURGERY 11:36 AM HOSPITALS REPOSITORY UPDATE Event: Topic: Vascular Surgery Update Details: CTA reviewed with staff. recommend not using GARRISON in situ. 1 month f/u with Vascular surgery No surgical intervention. Please contact us with further questions Casey Miramontes MD Vascular Surgery [id number] Electronic Signatures: Casey Miramontes (Resident)) (Signed 13-May-2018 11:38) Authored: Event Last Updated: 13-May-2018 11:38 by Casey Miramontes (Resident)) DAILY PROGRESS Observed: 05/13/2018 Status: COMPLETED Source: GORIN NOTE-CARDIOLOGY 9:01 AM [facility]OSPITALS REPOSITORY Service: Cardiology Subjective Data: DAVINA GREEN is a 62 year old Female who is Hospital Day # 4. Additional Information: Patient with increased nausea and vomiting/ abd pain overnight, check KUB for stool burden, no BM in two days, add senna. Increase hydral. WBCs 14.4, afebrile, check UA. CT head and neck complete but not read, awaiting vasc surg recs. - KUB - senna BID - increase hydral to 25mg - UA - SARA and PET for viability tomorrow Objective Data: Objective Information: T PRBPSpO2 [id number]/6996% Date/Time05/13 7: 7: 7: 7: 7:37 Range(36.6C - 37.1C ) (91 - 103 ) (18 - 18 ) (106 - 147 )/ (69 - 83 ) (94% - 98% ) Highest temp of 37.1 C was recorded at 05/13 4:39 Weights 05/13 5:12: Weight in kg (Weight (kg)) 63.4 05/13 5:12: Weight in lbs ((lbs)) 139.9 ---- Intake and Output ----- Mn/Dy/Year TimeIntakeOutputNet May 13, 2018 6:00 [id number] May 12, 2018 10:00 [id number] The Intake and Output Totals for the last 24 hours are: IntakeOutputNet [id number] Physical Exam: Constitutional: lying in bed, appears in some pain Head/Neck: no JVD seen Respiratory/Thorax: CTAB Cardiovascular: Reg S1S2 Gastrointestinal: soft, ND, tender to palpation Extremities: no LE edema Neurological: no focal deficits Psychological: Appropriate mood and behavior Skin: Warm and dry Medication: Medications: Continuous Medications No continuous medications are active Scheduled Medications 1. Ammonia N-13 - (Radiology Contrast): 10 milliCurie IntraVenous Push Once 2. Aspirin Chewable: 81 mg Oral Daily 3. Atorvastatin: 40 mg Oral Daily 4. busPIRone (BUSPAR): 5 mg Oral Every 8 Hours 5. Carvedilol: 3.125 mg Oral 2 Times a Day 6. Docusate 50 mg - Senna 8.6 m tablet(s) Oral 2 Times a Day 7. Enoxaparin SubCutaneous: 40 mg SubCutaneous Every 24 Hours 8. hydrALAZINE: 25 mg Oral Every 8 Hours 9. Insulin Glargine (Lantus) Injectable: 12 unit(s) SubCutaneous Daily 10. Insulin Lispro Mild Corrective Scale: unit(s) SubCutaneous 3 Times a Day Before Meals 11. Mupirocin 2%: 0.5 application(s) Each Nostril 2 Times a Day 12. [place]-3 Acid Ethyl Esters: 2 gram(s) Oral 2 Times a Day PRN Medications 1. Acetaminophen: 650 mg Oral Every 4 Hours 2. Albuterol 2.5 mg/ 3 mL Nebulizer Soln: 3 mL Inhalation Every 4 Hours 3. Dextrose 50% in Water Injectable: 25 gram(s) IntraVenous Push Every 15 Minutes 4. Glucagon Injectable: 1 mg IntraMuscular Every 15 Minutes 5. LORazepam: 0.25 mg Oral Every 12 Hours 6. Ondansetron Injectable: 4 mg IntraVenous Push Every 6 Hours Conditional Medication Orders 1. Perflutren Lipid Microsphere (Activated) 1.3 mL / NaCL 0.9% T.V. 10 mL Injectable: 0.5 mL IntraVenous Push Once Recent Lab Results: Results: I have reviewed these laboratory results: Glucose_POCT Trending View [id number] 08:17:00 12-May-2018 21:32:00 12-May-2018 16:44:00 12-May-2018 11:53:00 12-May-2018 08:03:00 Glucose-[id number] H 193 H 152 H 202 H 167 H Complete Blood Count 12-May-2018 20:15:00 ResultValue White Blood Cell Count 14.4 H Nucleated Erythrocyte Count 0.0 Red Blood Cell Count 4.55 HGB 13.0 HCT 38.9 MCV 85 MCHC 33.4 PLT 395 RDW-CV 14.5 Hepatic Function Panel 12-May-2018 20:05:00 ResultValue Aspartate Transaminase, Serum 11 ALB 3.5 T Bili 0.3 Bilirubin, Serum Direct - Conjugated 0.1 ALKP 107 Alanine Aminotransferase, Serum 11 T Pro 6.5 Basic Metabolic Panel 12-May-2018 20:05:00 ResultValue Glucose, Serum 171 H NA 134 L K 4.3 CL 99 Bicarbonate, Serum 24 Anion Gap, Serum 15 BUN 29 H CREAT 1.26 H GFR-Non 43 A GFR- 52 A Calcium, Serum 9.1 Lipase, Serum 12-May-2018 20:05:00 ResultValue Lipase, Serum 7 L Arterial Full Panel 12-May-2018 17:27:00 ResultValue pH, Arterial 7.44 H pCO2, Arterial 35 L pO2, Arterial 75 L Patient-Temperature 37.0 SO2, Arterial 97 HCT 38.0 Sodium-Level 135 L Potassium-Level 4.2 Chloride-Level 100 Calcium, Ionized-Level 1.22 Glucose-Level 167 H Lactate-Level 0.8 Base Excess-Blood 0.0 Bicarbonate, Calculated, Arterial 23.8 HGB, Calculated 12.9 Anion Gap-Level 15 Radiology Results: Results: Impression: Cardiomediastinal silhouette is at upper limit of normal for size. Otherwise, no acute cardiopulmonary process. Xray Chest 2 View PA + Lateral [May 11 2018 7:20PM] Conclusion: VASC LAB Pre-op Vessel Vein Mapping [May 11 2018 3:04PM] Conclusion: VASC LAB PVR (Arterial Physiologic) JOANA [May 11 2018 2:56PM] Conclusion: VASC LAB Carotid Artery Duplex Ultrasound [May 11 2018 2:51PM] Assessment and Plan: Assessment: 62 y/o female with a h/o HTN, HLD, and type II DM who presented with SOB and chest pain, found to have severe 3-vessel disease and transferred to [facility] for CABG evaluation. 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 - Cardiac surg consult: SARA to eval MV, PET for viability, plan for tomorrow - panorex given dentition complete, not yet read - plavix loaded, last dose 05/10 - cont BB, statin, ASA PAD - s/p Left CEA in setting of CVA - vascular surgery consulted pre-op - carotid duplex: R: < 50% stenosis, L >50% stenosis - ABIs: R ratio 0.66, 0.70, L ratio 0.59 - brachial pressure 124mmHg on right and 103mmHg on left - CTA head and neck to eval presumed L SCA stenosis, complete not yet read, awaiting vasc surg final recs Acute systolic HF - LVEF at OSH 37% - Volume overloaded and diuresed at OSH - 05/11 CXR no acute processes - presently well compensated - SARA to be done Monday given - strict I/O's, daily wts - ALEJANDRA on hold for surgery, Cont BB Leukocytosis - WBCs 14.4 today - afebrile, no obvious source of infection - check UA Abdominal pain/ N/ V - no BM two days, though pt reports could be her normal - PRN zofran - start senna BID - check KUB HTN - SBP over last 24hrs 120s-130s - increase hydral to 25 TID Hyperlipidemia - cont statin Type II DM - Insulin glargine 12 units daily (home dose=18 units) - ISS, accuhecks - 05/11 Hgb A1C 6.6% - BS over 24hrs 152-202 Tobacco abuse - PFT's Full code DVT ppx: subcutaneous lovenox Disp - pending Cardiac Surg eval Seen and discussed with Dr. Gould Signature/Cosignature/Attestation: Provider/Team Contact Info-Pager [phone] Comments/ Additional Findings WBC elevated without clear signs of infection. Noted to have abx pain. Will perform cursory infectious work up. Continue with pre-operative evaluation. Electronic Signatures: Larry Mcignnis (COMMUNICATIONS PROGRAM MANAGER-CREDIT CONTROL ADMINISTRATOR) (Signed 13-May-2018 09:13) Authored: Service, Subjective Data, Objective Data, Assessment and Plan, Signature/Cosignature/Attestation See Gould (DO) (Signed 13-May-2018 21:44) Authored: Signature/Cosignature/Attestation Co-Signer: Service, Subjective Data, Objective Data, Assessment and Plan, Signature/Cosignature/Attestation Last Updated: 13-May-2018 21:44 by See Gould () GLUCOSE-POCT Collected: 05/13/2018 Status: F Source: [facility] 8:17 AM [facility] REPOSITORY TYPE CODE TESTS RESULT OUT OF RANGE REFERENCE UNITS LAB GLUP(LOINC) 74 - 99 mg/dL High 160 GLUCOSE-POCT Performed By: #### GLUPO #### [facility] [address] [place] [address] GLUCOSE-POCT Collected: 05/12/2018 Status: F Source: [facility] 9:32 PM [facility]OSPITALS REPOSITORY TYPE CODE TESTS RESULT OUT OF RANGE REFERENCE UNITS LAB GLUP(LOINC) 74 - 99 mg/dL High 193 GLUCOSE-POCT Performed By: #### GLUPO #### [facility] [address] [facility] [place] [address] CBC Collected: 05/12/2018 Status: F Source: [facility] 8:15 PM [facility]OSPITALS REPOSITORY TYPE CODE TESTS RESULT OUT OF REFERENCE UNITS RANGE LAB WBCR(LOINC 4.4 - 11.3 x10E9/L ) WBC High 14.4 LAB NRBC(LOINC 0.0-0.0 /100 WBC ) NUCLEATED RBC 0.0 LAB RBCCT(LOIN 4.00 - 5.20 x10E12/L C) RBC 4.55 LAB HGB(LOINC) 12.0 - 16.0 g/dL HGB 13.0 LAB HCT(LOINC) 36.0 - 46.0 % HCT 38.9 LAB MCV(LOINC) 80 - 100 fL MCV 85 LAB MCHC2(LOIN 32.0 - 36.0 g/dL C) MCHC 33.4 LAB PLTCT(LOIN 150 - 450 x10E9/L C) PLT 395 LAB RDWCV(LOIN 11.5 - 14.5 % C) RDW-CV 14.5 Performed By: #### CBC #### [facility] [address] [facility] [place] [address] BASIC METABOLIC PANEL Collected: 05/12/2018 Status: F Source: [facility] 8:05 PM [facility] REPOSITORY TYPE CODE TESTS RESULT OUT OF RANGE REFERENCE UNITS LAB GLU(LOINC) 74 - 99 mg/dL High GLUCOSE 171 LAB SOD(LOINC) 136 - 145 mmol/L Low SODIUM 134 LAB K(LOINC) 3.5 - 5.3 mmol/L POTASSIUM 4.3 LAB CHLOR(LOIN 98 - 107 mmol/L C) CHLORIDE 99 LAB BIC(LOINC) 21 - 32 mmol/L BICARBONATE 24 LAB ANGAP(LOIN 10 - 20 mmol/L C) ANION GAP 15 LAB UREA(LOINC 6 - 23 mg/dL ) High UREA NITROGEN 29 LAB CREA(LOINC 0.50 - 1.05 mg/dL ) High CREATININE 1.26 LAB GFRFN(LOIN >60 mL/min/1.7 C) 3m2 GFR-NON Abnormal AM. 43 LAB GFRAA(LOIN >60 mL/min/1.7 C) 3m2 GFR- Abnormal AM. 52 Result Comment: CALCULATIONS OF ESTIMATED GFR ARE PERFORMED USING THE MDRD STUDY EQUATION FOR THE IDMS-TRACEABLE CREATININE METHODS. CLIN CHEM 2007;53:766-72 LAB CA(LOINC) 8.6 - 10.6 mg/dL CALCIUM 9.1 Performed By: #### BMP #### [facility] [address] [place] [address] LIPASE Collected: 05/12/2018 Status: F Source: [facility] 8:05 [facility] REPOSITORY TYPE CODE TESTS RESULT OUT OF REFERENCE UNITS RANGE LAB LIPAS(LOINC 9 - 82 U/L ) Low LIPASE 7 Result Comment: Venipuncture immediately after or during the administration of Metamizole may lead to falsely low results. Testing should be performed immediately prior to Metamizole dosing. Performed By: #### LIPAS #### [facility] [address] [place] [id number] HEPATIC FUNCTION Collected: 05/12/2018 Status: F Source: [facility] 8:05 [facility] REPOSITORY TYPE CODE TESTS RESULT OUT OF REFERENCE UNITS RANGE LAB ALB(LOINC) 3.4 - 5.0 g/dL ALBUMIN 3.5 LAB TBILI(LOIN 0.0 - 1.2 mg/dL C) BILIRUBIN,TOTAL 0.3 LAB DBILI(LOIN 0.0 - 0.3 mg/dL C) BILIRUBIN,DIRECT 0.1 LAB AP(LOINC) 33 - 136 U/L ALKALINE PHOSPHATASE 107 LAB ALT(LOINC) 7 - 45 U/L ALT 11 Result Comment: Patients treated with Sulfasalazine may generate falsely decreased results for ALT. LAB AST(LOINC) 9 - 39 U/L AST 11 LAB TP(LOINC) 6.4 - 8.2 g/dL TOTAL PROTEIN 6.5 Performed By: #### HEPFP #### [facility] [address] [place] [address] ARTERIAL FULL PANEL Collected: 05/12/2018 Status: F Source: [facility] 5:27 PM [facility] REPOSITORY TYPE CODE TESTS RESULT OUT OF REFERENCE UNITS RANGE LAB PHART(LOIN 7.38 - 7.42 C) pH High 7.44 LAB PCO2A(LOIN 38 - 42 mmHg C) PCO2 Low 35 LAB PO2A(LOINC 85 - 95 mmHg ) PO2 Low 75 LAB TEMP(LOINC degrees C ) PATIENT TEMPERATURE 37.0 Result Comment: NOTE: PATIENT RESULTS ARE NOT CORRECTED FOR TEMPERATURE. LAB SO2%A(LOINC) 94 - 100 % SO2 97 LAB HCTN(LOINC) 36.0 - % 46.0 HCT 38.0 LAB SODN(LOINC) 136 - 145 mmol/L Low SODIUM 135 LAB POTN(LOINC) 3.5 - 5.3 mmol/L POTASSIUM 4.2 LAB CHLN(LOINC) 98 - 107 mmol/L CHLORIDE 100 LAB IONCA(LOINC) 1.10 - mmol/L 1.33 CALCIUM,IONIZED 1.22 LAB GLUN(LOINC) 74 - 99 mg/dL GLUCOSE High 167 LAB LACTN(LOINC) 0.4 - 2.0 mmol/L LACTATE 0.8 LAB BSEXB(LOINC) -2.0 - 3.0 mmol/L BASE EXCESS-BLOOD 0.0 LAB BICAR(LOINC) 22.0 - mmol/L 26.0 BICARB, CALCULATED 23.8 LAB HGBNC(LOINC) 12.0 - g/dL 16.0 HGB,CALCULATED 12.9 LAB ANGPN(LOINC) 10 - 25 mmol/L ANION GAP 15 Performed By: #### AFPA3 #### [facility] [address] [place] [address] GLUCOSE-POCT Collected: 05/12/2018 Status: F Source: [facility] 4:44 PM [facility] REPOSITORY TYPE CODE TESTS RESULT OUT OF RANGE REFERENCE UNITS LAB GLUP(LOINC) 74 - 99 mg/dL High 152 GLUCOSE-POCT Performed By: #### GLUPO #### [facility] [address] [place] [address] BN ORTHOPANTOGRAM Observed: 05/12/2018 Status: F Source: [facility] 4:10 PM [facility]OSPITALS REPOSITORY Patient Name: DAVINA GREEN STUDY: BN ORTHOPANTOGRAM; 05/12/2018 4:10 pm INDICATION: Signs/Symptoms: poor dentition, prior to possible surgery. COMPARISON: None. ACCESSION NUMBER(S): [id number] ORDERING CLINICIAN: LARRY MCGINNIS TECHNIQUE: Orthopantogram was performed (1 view). FINDINGS: Evaluation of midline structures is intrinsically limited due to orthopantographic technique. There is no evidence of mandibular fracture. The bilateral temporomandibular joints are intact. Multiple teeth are missing. There is subtle periapical lucent changes about the upper left wisdom tooth versus 2nd molar tooth. There also lucent bony changes in the region of the left maxillary canine or 1st premolar tooth. The left mandibular 1st or 2nd molar tooth is fractured. There is similar changes on the right. The visualized paranasal sinuses are grossly clear. IMPRESSION: Lucent changes about the region of the prior left maxillary canine are 1st premolar tooth. There is also subtle periapical lucent changes about the left maxillary 3rd molar wisdom tooth. Periapical abscesses cannot be excluded. Clinical correlation with dental exam is recommended. Electronically signed by: RIMA PORTER MD NR CT ANGIO NECK Observed: 05/12/2018 Status: F Source: [facility] 3:36 PM [facility]OSPITALS REPOSITORY Patient Name: DAVINA GREEN STUDY: NR CT ANGIO HEAD W/O-W INCLUDE POST PROC; NR CT ANGIO NECK; 05/12/2018 3:36 pm INDICATION: Signs/Symptoms: L SCA stenosis, Lie Flat: Yes. COMPARISON: None. ACCESSION NUMBER(S): [id number]; [id number] ORDERING CLINICIAN: LARRY MCGINNIS TECHNIQUE: Following intravenous injection of contrast material, CT was acquired from the aortic arch to the vertex of the skull. Multiplanar reconstructions and 3D reconstructions were made. FINDINGS: Chest The aortic arch and origin of great vessels are normal. The visualized mediastinum and pulmonary apices are normal. Neck Right carotid There is atherosclerotic plaque formation in the proximal common carotid artery with narrowing at the origin of the right common carotid artery to approximately 5 mm. Finding best appreciated on axial 98/164. Previous endarterectomy changes at the right carotid bifurcation. The internal carotid artery is normal. There are atherosclerotic calcifications in the cavernous carotid artery. Left carotid There are atherosclerotic calcifications at the origin of the common carotid artery with narrowing to approximately 5 mm best appreciated on axial 101/164. The common carotid artery remains narrowed throughout its length and there are noncalcified atherosclerotic calcifications at the bifurcation with narrowing and deformity at the origin of the left internal carotid artery to approximately 4 mm minimal diameter measured on axial 64/164. Opacification is absent in a short segment of the internal carotid artery on image 58/164. The left internal carotid artery is normal caliber within the skull base but narrowed in its cavernous and supraclinoid portion. Vertebrals The vertebral arteries are somewhat asymmetrical with dominance of the right vertebral artery. The vertebrobasilar junction is normal. The basilar artery is diminutive. Soft tissue neck 2 cm homogeneous mass in the right parotid likely represents adenoma. Intracranial There is no evidence of aneurysm, vascular malformation or branch occlusion. IMPRESSION: *Severe stenosis at the origin of the left internal carotid artery *Moderate narrowing at the proximal right common carotid artery [place]AM[place] [facility] [place] signed by: TACO RAMIREZ MD NR CT ANGIO HEAD Observed: 05/12/2018 Status: F Source: [facility] W/O-W INCLUDE POST 3:36 PM [facility]OSPITALS REPOSITORY PROC Patient Name: DAVINA GREEN STUDY: NR CT ANGIO HEAD W/O-W INCLUDE POST PROC; NR CT ANGIO NECK; 05/12/2018 3:36 pm INDICATION: Signs/Symptoms: L SCA stenosis, Lie Flat: Yes. COMPARISON: None. ACCESSION NUMBER(S): [id number]; [id number] ORDERING CLINICIAN: LARRY MCGINNIS TECHNIQUE: Following intravenous injection of contrast material, CT was acquired from the aortic arch to the vertex of the skull. Multiplanar reconstructions and 3D reconstructions were made. FINDINGS: Chest The aortic arch and origin of great vessels are normal. The visualized mediastinum and pulmonary apices are normal. Neck Right carotid There is atherosclerotic plaque formation in the proximal common carotid artery with narrowing at the origin of the right common carotid artery to approximately 5 mm. Finding best appreciated on axial 98/164. Previous endarterectomy changes at the right carotid bifurcation. The internal carotid artery is normal. There are atherosclerotic calcifications in the cavernous carotid artery. Left carotid There are atherosclerotic calcifications at the origin of the common carotid artery with narrowing to approximately 5 mm best appreciated on axial 101/164. The common carotid artery remains narrowed throughout its length and there are noncalcified atherosclerotic calcifications at the bifurcation with narrowing and deformity at the origin of the left internal carotid artery to approximately 4 mm minimal diameter measured on axial 64/164. Opacification is absent in a short segment of the internal carotid artery on image 58/164. The left internal carotid artery is normal caliber within the skull base but narrowed in its cavernous and supraclinoid portion. Vertebrals The vertebral arteries are somewhat asymmetrical with dominance of the right vertebral artery. The vertebrobasilar junction is normal. The basilar artery is diminutive. Soft tissue neck 2 cm homogeneous mass in the right parotid likely represents adenoma. Intracranial There is no evidence of aneurysm, vascular malformation or branch occlusion. IMPRESSION: *Severe stenosis at the origin of the left internal carotid artery *Moderate narrowing at the proximal right common carotid artery THIS [place]AMINATION [place] [facility] [place] signed by: TACO RAMIREZ MD DAILY PROGRESS Observed: 05/12/2018 Status: COMPLETED Source: [facility] NOTE-CARDIOLOGY 1:08 PM [facility]OSPITALS REPOSITORY Service: Cardiology Subjective Data: DAVINA GREEN is a 62 year old Female who is Hospital Day # 3. Additional Information: Patient nauseas. Vasc surgery and cardiac surgery following. Will order PET for viability, SARA to assess MV. CTA head and neck to eval SCA stenosis. - PET and SARA ordered, most likely monday given weekend - CTA head and neck - start hydral 10mg TID - panorex for dentition - start 2mg omega 3 fatty acid BID Objective Data: Objective Information: T PRBPSpO2 [id number]/7797% Date/Time05/12 11: 12: 11: 12: 11:40 Range(36C - 36.7C ) (81 - 97 ) (16 - 20 ) (106 - 140 )/ (73 - 84 ) (96% - 100% ) ---- Intake and Output ----- Mn/Dy/Year TimeIntakeOutputNet May 11, 2018 2:00 [id number] The Intake and Output Totals for the last 24 hours are: IntakeOutputNet 120nullnull Physical Exam: Constitutional: thin appearing, sitting up in bed in NAD Head/Neck: no JVD seen Respiratory/Thorax: CTAB Cardiovascular: Reg S1S2 Gastrointestinal: soft, NT/ND Extremities: no LE edema Neurological: no focal deficits Psychological: Appropriate mood and behavior Skin: Warm and dry Medication: Medications: Continuous Medications No continuous medications are active Scheduled Medications 1. Ammonia N-13 - (Radiology Contrast): 10 milliCurie IntraVenous Push Once 2. Aspirin Chewable: 81 mg Oral Daily 3. Atorvastatin: 40 mg Oral Daily 4. busPIRone (BUSPAR): 5 mg Oral Every 8 Hours 5. Carvedilol: 3.125 mg Oral 2 Times a Day 6. Enoxaparin SubCutaneous: 40 mg SubCutaneous Every 24 Hours 7. hydrALAZINE: 10 mg Oral Every 8 Hours 8. Insulin Glargine (Lantus) Injectable: 12 unit(s) SubCutaneous Daily 9. Insulin Lispro Mild Corrective Scale: unit(s) SubCutaneous 3 Times a Day Before Meals 10. Iopamidol 76% (ISOVUE 370) -Radiology Contrast): 93.15 mL IntraVenous Push Once 11. Mupirocin 2%: 0.5 application(s) Each Nostril 2 Times a Day 12. [place]-3 Acid Ethyl Esters: 2 gram(s) Oral 2 Times a Day PRN Medications 1. Acetaminophen: 650 mg Oral Every 4 Hours 2. Albuterol 2.5 mg/ 3 mL Nebulizer Soln: 3 mL Inhalation Every 4 Hours 3. Dextrose 50% in Water Injectable: 25 gram(s) IntraVenous Push Every 15 Minutes 4. Glucagon Injectable: 1 mg IntraMuscular Every 15 Minutes 5. LORazepam: 0.25 mg Oral Every 12 Hours 6. Ondansetron Injectable: 4 mg IntraVenous Push Every 6 Hours Conditional Medication Orders 1. Perflutren Lipid Microsphere (Activated) 1.3 mL / NaCL 0.9% T.V. 10 mL Injectable: 0.5 mL IntraVenous Push Once Recent Lab Results: Results: I have reviewed these laboratory results: Glucose_POCT Trending View [id number] 11:53:00 12-May-2018 08:03:00 11-May-2018 20:02:00 11-May-2018 12:40:00 11-May-2018 08:04:00 [id number] H 167 H 181 H 170 H 176 H Complete Blood Count 11-May-2018 19:40:00 ResultValue White Blood Cell Count 9.8 Nucleated Erythrocyte Count 0.0 Red Blood Cell Count 4.20 HGB 11.9 L HCT 36.3 MCV 86 MCHC 32.8 PLT 372 RDW-CV 14.3 Basic Metabolic Panel 11-May-2018 19:40:00 ResultValue Glucose, Serum 180 H NA 135 L K 4.0 CL 101 Bicarbonate, Serum 24 Anion Gap, Serum 14 BUN 32 H CREAT 1.30 H GFR-Non 41 A GFR- 50 A Calcium, Serum 9.0 Lipid Panel 11-May-2018 19:40:00 ResultValue Cholesterol, Serum 174 . AGE DESIRABLE BORDERLINE HIGH HIGH 0-19 Y 0 - 169 170 - 199 >/= 200 20-24 Y 0 - 189 190 - 224 >/= 225 >24 Y 0 - 199 200 - 239 >/= 240 All ranges are based on fasting samp HDL Cholesterol, Serum 41.9 . AGE VERY LOW LOW NORMAL HIGH 0-19 Y < 35 < 40 40-45 ---- 20-24 Y ---- < 40 >45 ---- >24 Y ---- < 40 40-60 >60 . Cholesterol/HDL Ratio 4.2 REF VALUES DESIRABLE < 3.4 HIGH RISK > 5.0 LDL, Level 73 . NEAR BORD AGE DESIRABLE OPTIMAL HIGH HIGH VERY HIGH 0-19 Y 0 - 109 --- 110-129 >/= 130 ---- 20-24 Y 0 - 119 --- 120-159 >/= 160 ---- >24 Y 0 - VLDL, Serum 59 H Triglycerides, Serum 295 . AGE DESIRABLE BORDERLINE HIGH HIGH VERY HIGH 0 D-90 D 19 - 174 ---- ---- ---- 91 D- 9 Y 0 - 74 75 - 99 >/= 100 ---- 10-19 Y 0 - 89 90 - 129 >/= 130 ---- H Non-HDL Cholesterol 132 AGE DESIRABLE BORDERLINE HIGH HIGH VERY HIGH 0-19 Y 0 - 119 120 - 144 >/= 145 >/= 160 20-24 Y 0 - 149 150 - 189 >/= 190 ---- >24 Y 30 MG/DL ABOVE LDL CHOLESTEROL GOAL . Hepatic Function Panel 11-May-2018 07:44:00 ResultValue Aspartate Transaminase, Serum 11 ALB 3.3 L T Bili 0.3 Bilirubin, Serum Direct - Conjugated 0.0 ALKP 104 Alanine Aminotransferase, Serum 12 T Pro 5.9 L Complete Blood Count + Differential 11-May-2018 07:44:00 ResultValue White Blood Cell Count 8.4 Nucleated Erythrocyte Count 0.0 Red Blood Cell Count 3.97 L HGB 11.3 L HCT 33.7 L MCV 85 MCHC 33.5 PLT 350 RDW-CV 14.2 Neutrophil % 55.6 Immature Granulocytes % 0.2 Lymphocyte % 25.8 Monocyte % 10.2 Eosinophil % 7.4 Basophil % 0.8 Neutrophil Count 4.65 Lymphocyte Count 2.16 Monocyte Count 0.85 Eosinophil Count 0.62 Basophil Count 0.07 Renal Function Panel 11-May-2018 07:44:00 ResultValue Glucose, Serum 165 H NA 139 K 3.9 CL 105 Bicarbonate, Serum 23 Anion Gap, Serum 15 BUN 23 CREAT 1.31 H GFR-Non 41 A GFR- 50 A Calcium, Serum 8.7 Phosphorus, Serum 3.7 ALB 3.3 L Coagulation Screen 11-May-2018 07:44:00 ResultValue Prothrombin Time, Plasma 12.7 International Normalized Ratio, Plasma 1.1 Activated Partial Thromboplastin Time 34 Magnesium, Serum 11-May-2018 07:44:00 ResultValue Magnesium, Serum 2.21 Hemoglobin A1C, Level 11-May-2018 07:44:00 ResultValue Estimated Average Glucose 143 Hemoglobin A1C, Level 6.6 Diagnosis of Diabetes-Adults Non-Diabetic: < or = 5.6% Increased risk for developing diabetes: 5.7-6.4% Diagnostic of diabetes: > or = 6.5% . Monitoring of Diabetes Age (y) Therapeutic Goal (%) Adults: >1 Radiology Results: Results: Impression: Cardiomediastinal silhouette is at upper limit of normal for size. Otherwise, no acute cardiopulmonary process. Xray Chest 2 View PA + Lateral [May 11 2018 7:20PM] Conclusion: [facility] LAB Pre-op Vessel Vein Mapping [May 11 2018 3:04PM] Conclusion: [facility] PVR (Arterial Physiologic) JOANA [May 11 2018 2:56PM] Conclusion: [facility] Carotid Artery Duplex Ultrasound [May 11 2018 2:51PM] Assessment and Plan: Assessment: 62 y/o female with a h/o HTN, HLD, and type II DM who presented with SOB and chest pain, found to have severe 3-vessel disease and transferred to [facility] for CABG evaluation. 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 - Cardiac surg consult: SARA to eval MV, PET for viability, panorex given dentition - plavix loaded, last dose 05/10 - cont BB, statin, ASA PAD - s/p Left CEA in setting of CVA - vascular surgery consulted pre-op - carotid duplex: R: < 50% stenosis, L >50% stenosis - ABIs: R ratio 0.66, 0.70, L ratio 0.59 - brachial pressure 124mmHg on right and 103mmHg on left - CTA head and neck to eval presumed L SCA stenosis Acute systolic HF - LVEF at OSH 37% - Volume overloaded and diuresed at OSH - presently well compensated - SARA to be done Monday given - strict I/O's, daily wts - ALEJANDRA on hold for surgery, Cont BB HTN - SBP over last 24hrs 110s-130s - start hydral 10 TID Hyperlipidemia - cont statin Type II DM - Insulin glargine 12 units daily (home dose=18 units) - ISS, accuhecks - 05/11 Hgb A1C 6.6% - BS over 24hrs 167-202 Tobacco abuse - PFT's Full code DVT ppx: subcutaneous lovenox Disp - pending Cardiac Surg eval Seen and discussed with Dr. Gould Signature/Cosignature/Attestation: Provider/Team Contact Info-Pager [phone] Comments/ Additional Findings Referred here for CABG evaluation. However, also noted to have significant peripheral vascular disease. Appears euvolemic. Plan: -f/u with CT and vascular surgery services -panorex given current dentition -initiation vasodilator therapy with hydralazine 10 mg three times a day -obtain echo Electronic Signatures: Larry Mcginnis (COMMUNICATIONS PROGRAM MANAGER-CREDIT CONTROL ADMINISTRATOR) (Signed 12-May-2018 13:44) Authored: Service, Subjective Data, Objective Data, Assessment and Plan, Signature/Cosignature/Attestation See Gould () (Signed 12-May-2018 21:53) Authored: Signature/Cosignature/Attestation Co-Signer: Service, Subjective Data, Objective Data, Assessment and Plan, Signature/Cosignature/Attestation Last Updated: 12-May-2018 21:53 by See Gould () GLUCOSE-POCT Collected: 05/12/2018 Status: F Source: [facility] 11:53 AM HOSPITALS REPOSITORY TYPE CODE TESTS RESULT OUT OF RANGE REFERENCE UNITS LAB GLUP(LOINC) 74 - 99 mg/dL High 202 GLUCOSE-POCT Performed By: #### GLUPO #### [facility] [address] [place] [address] CONSULT-CARDIAC SURGERY Observed: 05/12/2018 Status: COMPLETED Source: [facility] 9:00 AM HOSPITALS REPOSITORY Service: Service: Cardiac Surgery Consult: Consult requested by (Attending Name): T7 Reason: MVD for consideration of CABG Allergies: penicillin: Hives/Urticaria Signature/Cosignature/Attestation: Comments/ Additional Findings I met with Ms Green and reviewed all the clinical notes, coronary angiogram, ECHO and other reports. She is a 62 yr old lady who has multiple chronic comorbidities since some time. She presented to OSH with SOB and BALDWIN, minimal chest pain. She was stabilized and found to have MVD on angiogram; LVEF 30% on ECHO with multiple RWMA and moderate MR. She has been DM without proper therapy for many many years. She had an infected bed sore 8 years ago and had toe amputation some time ago. She had R CEA 7 years ago; she has significant carotid A disease right now as well as severe PVD with discrepant UL BP. I think that we need to obtain more information to risk stratify her prior to surgery. An MRI/PET for viability, SARA to assess MR and vascular consult/CT angiogram for PVD and UL should be tests prior to decision making. I explained this to her and will discuss plan with her again after these tests are obtained. Electronic Signatures: Greg Melgar) (Signed 12-May-2018 09:05) Authored: Service, Allergies, Signature/Cosignature/Attestation Last Updated: 12-May-2018 09:05 by Greg Melgar) DAILY PROGRESS Observed: 05/12/2018 Status: COMPLETED Source: [facility] NOTE-VASCULAR SURGERY 8:27 AM HOSPITALS REPOSITORY Service: Vascular Surgery Subjective Data: DAVINA GREEN is a 62 year old Female who is Hospital Day # 3. Objective Data: Objective Information: ---- Intake and Output ----- Mn/Dy/Year TimeIntakeOutputNet May 11, 2018 2:00 [id number] The Intake and Output Totals for the last 24 hours are: IntakeOutputNet 120nullnull Assessment and Plan: Assessment: No pulses in L UE (brachial, axillary, radial) +doppler signals No stroke/TIA/amaurosis since R CEA repair UE BP differential R>L - Please obtain CTA head and neck for evaluation of presumed L SCA stenosis Discussed with Dr. Henley Attending Surgeon Marylou PGY4 Vascular Surgery [id number] Signature/Cosignature/Attestation: Provider/Team Contact Info-Pager [phone] Attending AttestationI saw and evaluated the patient. I personally obtained the rico and critical portions of the history and physical exam or was physically present for rico and critical portions performed by the resident/fellow. I reviewed the resident/fellows documentation and discussed the patient with the resident/fellow. I agree with the resident/fellows medical decision making as documented in the residents note. I personally evaluated the patient (as noted in the above attestation) on 12-May-2018 Electronic Signatures: Thai Henley) (Signed 13-May-2018 08:23) Authored: Signature/Cosignature/Attestation Co-Signer: Service, Subjective Data, Objective Data, Assessment and Plan, Signature/Cosignature/Attestation Allie Hickman (Resident)) (Signed 12-May-2018 08:33) Authored: Service, Subjective Data, Objective Data, Assessment and Plan, Signature/Cosignature/Attestation Last Updated: 13-May-2018 08:23 by Thai Henley) GLUCOSE-POCT Collected: 05/12/2018 Status: F Source: [facility] 8:03 AM HOSPITALS REPOSITORY TYPE CODE TESTS RESULT OUT OF RANGE REFERENCE UNITS LAB GLUP(LOINC) 74 - 99 mg/dL High 167 GLUCOSE-POCT Performed By: #### GLUPO #### [facility] [id number] [place] [address] GLUCOSE-POCT Collected: 05/11/2018 Status: F Source: [facility] 8:02 PM HOSPITALS REPOSITORY TYPE CODE TESTS RESULT OUT OF RANGE REFERENCE UNITS LAB GLUP(LOINC) 74 - 99 mg/dL High 181 GLUCOSE-POCT Performed By: #### GLUPO #### [facility] [address] [place] [address] CBC Collected: 05/11/2018 Status: F Source: [facility] 7:40 [facility] REPOSITORY TYPE CODE TESTS RESULT OUT OF REFERENCE UNITS RANGE LAB WBCR(LOINC 4.4 - 11.3 x10E9/L ) WBC 9.8 LAB NRBC(LOINC 0.0-0.0 /100 WBC ) NUCLEATED RBC 0.0 LAB RBCCT(LOIN 4.00 - 5.20 x10E12/L C) RBC 4.20 LAB HGB(LOINC) 12.0 - 16.0 g/dL Low HGB 11.9 LAB HCT(LOINC) 36.0 - 46.0 % HCT 36.3 LAB MCV(LOINC) 80 - 100 fL MCV 86 LAB MCHC2(LOIN 32.0 - 36.0 g/dL C) MCHC 32.8 LAB PLTCT(LOIN 150 - 450 x10E9/L C) PLT 372 LAB RDWCV(LOIN 11.5 - 14.5 % C) RDW-CV 14.3 Performed By: #### CBC #### [facility] [address] [place] [address] BASIC METABOLIC PANEL Collected: 05/11/2018 Status: F Source: [facility] 7:40 [facility] REPOSITORY TYPE CODE TESTS RESULT OUT OF RANGE REFERENCE UNITS LAB GLU(LOINC) 74 - 99 mg/dL High GLUCOSE 180 LAB SOD(LOINC) 136 - 145 mmol/L Low SODIUM 135 LAB K(LOINC) 3.5 - 5.3 mmol/L POTASSIUM 4.0 LAB CHLOR(LOIN 98 - 107 mmol/L C) CHLORIDE 101 LAB BIC(LOINC) 21 - 32 mmol/L BICARBONATE 24 LAB ANGAP(LOIN 10 - 20 mmol/L C) ANION GAP 14 LAB UREA(LOINC 6 - 23 mg/dL ) High UREA NITROGEN 32 LAB CREA(LOINC 0.50 - 1.05 mg/dL ) High CREATININE 1.30 LAB GFRFN(LOIN >60 mL/min/1.7 C) 3m2 GFR-NON Abnormal AM. 41 LAB GFRAA(LOIN >60 mL/min/1.7 C) 3m2 GFR- Abnormal AM. 50 Result Comment: CALCULATIONS OF ESTIMATED GFR ARE PERFORMED USING THE MDRD STUDY EQUATION FOR THE IDMS-TRACEABLE CREATININE METHODS. CLIN CHEM 2007;53:766-72 LAB CA(LOINC) 8.6 - 10.6 mg/dL CALCIUM 9.0 Performed By: #### BMP #### [facility] [address] [place] [address] LIPID PANEL (CORONARY Collected: 05/11/2018 Status: F Source: GORIN RISK 2) 7:40 PM HOSPITALS REPOSITORY TYPE CODE TESTS RESULT OUT OF REFERENCE UNITS RANGE LAB CHOL(LOINC 0 - 199 mg/dL ) CHOLESTEROL 174 Result Comment: . AGE DESIRABLE BORDERLINE HIGH HIGH 0-19 Y 0 - 169 170 - 199 >/= 200 20-24 Y 0 - 189 190 - 224 >/= 225 >24 Y 0 - 199 200 - 239 >/= 240 All ranges are based on fasting samples. Specific therapeutic targets will vary based on patient-specific cardiac risk. . Pediatric guidelines reference:Pediatrics 2011, 128(S5). Adult guidelines reference: NCEP ATPIII Guidelines, FRANCOISE 2001, 258:2486-97 . Venipuncture immediately after or during the administration of Metamizole may lead to falsely low results. Testing should be performed immediately prior to Metamizole dosing. LAB HDL(LOINC) mg/dL HDL-CHOLESTEROL 41.9 Result Comment: . AGE VERY LOW LOW NORMAL HIGH 0-19 Y < 35 < 40 40-45 ---- 20-24 Y ---- < 40 >45 ---- >24 Y ---- < 40 40-60 >60 . LAB CHHDL(LOINC) CHOLESTEROL/HDL RATIO 4.2 Result Comment: REF VALUES DESIRABLE < 3.4 HIGH RISK > 5.0 LAB LDLF(LOINC) 0 - 99 mg/dL LDL 73 Result Comment: . NEAR BORD AGE DESIRABLE OPTIMAL HIGH HIGH VERY HIGH 0-19 Y 0 - 109 --- 110-129 >/= 130 ---- 20-24 Y 0 - 119 --- 120-159 >/= 160 ---- >24 Y 0 - 99 100-129 130-159 160-189 >/=190 . LAB VLDL(LOINC) 0 - 40 mg/dL VLDL High 59 LAB TRIG(LOINC) 0 - 149 mg/dL TRIGLYCERIDES High 295 Result Comment: . AGE DESIRABLE BORDERLINE HIGH HIGH VERY HIGH 0 D-90 D 19 - 174 ---- ---- ---- 91 D- 9 Y 0 - 74 75 - 99 >/= 100 ---- 10-19 Y 0 - 89 90 - 129 >/= 130 ---- 20-24 Y 0 - 114 115 - 149 >/= 150 ---- >24 Y 0 - 149 150 - 199 200- 499 >/= 500 . Venipuncture immediately after or during the administration of Metamizole may lead to falsely low results. Testing should be performed immediately prior to Metamizole dosing. LAB NHDL(LOINC) mg/dL NON-HDL CHOLESTEROL 132 Result Comment: AGE DESIRABLE BORDERLINE HIGH HIGH VERY HIGH 0-19 Y 0 - 119 120 - 144 >/= 145 >/= 160 20-24 Y 0 - 149 150 - 189 >/= 190 ---- >24 Y 30 MG/DL ABOVE LDL CHOLESTEROL GOAL . Performed By: #### LIPID #### [facility] [id number] [place] [address] TYPE + SCREEN Collected: 05/11/2018 Status: F Source: [facility] 7:40 PM HOSPITALS REPOSITORY TYPE CODE TESTS RESULT OUT OF REFERENCE UNITS RANGE LAB ABORH(LOINC ) ABO TYPE A LAB RH(LOINC) RH TYPE POS LAB ABSC(LOINC) ANTIBODY NEG SCREEN Performed By: #### T+S #### [facility] [id number] [place] [address] CONSULT-VASCULAR SURGERY Observed: 05/11/2018 Status: COMPLETED Source: [facility] 4:54 PM HOSPITALS REPOSITORY Service: Service: Vascular Surgery History of Present Illness: HPI: 62 y/o female with HTN, HLD, DM, and stroke 8 years ago (no residual deficits) s/p left presents as a transfer from [facility] for CABG evaluation. She was admitted on 05/08/2018 with two days of intermittent sharp substernal chest pain and orthopnea. At OSH TTE was performed showing an EF of 37% with diastolic dysfunction; cardiac cath showed severe three-vessel disease with 90% stenosis of the LAD, 80-90% stenosis of the left circumflex, and a completely occluded right coronary. [place] [facility] [place] was discovered during VASC lab PVR patient had B/P difference of >20mmHG between both arms (Brachial Pressure on right was 124 mmHg 103 mmHg on the left). Vascular surgery was consulted for further evaluation of the BP discrepancy. Currently the patient denies any chest pain and reports much improved breathing. However, she states that in the past year she has been having lightheadedness and dizziness with exertion. ROS: negative for all 12 systems except HPI PMH: HTN, HLD, DMII, Stroke PSH: Left 5th digit amputation 2/2 gangrene about 3 months ago Right CEA 8 years ago SH: Current every day smoker: 2 cigarettes daily No alcohol use Daily marijuana use FH: Mother with stroke and SD in her 50s or 60s. Father of SD in mid-50s. Allergies: Penicillin-Rash Meds: Aspirin, Plavix, Atorvastatin, Carvedilol, Lantus, Buspirone, Lisinopril Allergies: penicillin: Hives/Urticaria Objective: Objective Information: T PRBPSpO2 [id number]/48095% Date/Time05/11 15: 15: 15: 15: 15:48 Range(36.5C - 36.8C ) (85 - 94 ) (16 - 19 ) (115 - 134 )/ (73 - 83 ) (95% - 100% ) ---- Intake and Output ----- Mn/Dy/Year TimeIntakeOutputNet May 11, 2018 2:00 [id number] May 11, 2018 6:00 am000 May 10, 2018 10:00 [id number] The Intake and Output Totals for the last 24 hours are: IntakeOutputNet 240nullnull Physical Exam: Constitutional: NAD sitting up in bed Eyes: EOMI, non icteric ENMT: MMM, tongue midline, palate midline Head/Neck: neck supple Respiratory/Thorax: CTABL, no wheezing Cardiovascular: RRR, no murmurs Monophasic DPs bilaterally Gastrointestinal: mildly distended, soft non tender. Musculoskeletal: moving all extremities x 4 Equal strenght 5/5 bilaterally Extremities: Left small toe is missing, the incision is well healed. Neurological: Alert and Oriented x3 CNII-XII intact; equal strength 5/5 bilaterally Psychological: appropriate mood and affect Skin: warm and dry Medications: Medications: Continuous Medications No continuous medications are active Scheduled Medications 1. Aspirin Chewable: 81 mg Oral Daily 2. Atorvastatin: 40 mg Oral Daily 3. busPIRone (BUSPAR): 5 mg Oral Every 8 Hours 4. Carvedilol: 3.125 mg Oral 2 Times a Day 5. Enoxaparin SubCutaneous: 40 mg SubCutaneous Every 24 Hours 6. Insulin Glargine (Lantus) Injectable: 12 unit(s) SubCutaneous Daily 7. Insulin Lispro Mild Corrective Scale: unit(s) SubCutaneous 3 Times a Day Before Meals 8. Mupirocin 2%: 0.5 application(s) Each Nostril 2 Times a Day PRN Medications 1. Acetaminophen: 650 mg Oral Every 4 Hours 2. Albuterol 2.5 mg/ 3 mL Nebulizer Soln: 3 mL Inhalation Every 4 Hours 3. Dextrose 50% in Water Injectable: 25 gram(s) IntraVenous Push Every 15 Minutes 4. Glucagon Injectable: 1 mg IntraMuscular Every 15 Minutes 5. LORazepam: 0.25 mg Oral Every 12 Hours 6. Ondansetron Injectable: 4 mg IntraVenous Push Every 6 Hours Conditional Medication Orders 1. Perflutren Lipid Microsphere (Activated) 1.3 mL / NaCL 0.9% T.V. 10 mL Injectable: 0.5 mL IntraVenous Push Once Recent Lab Results: Results: I have reviewed these laboratory results: Hepatic Function Panel 11-May-2018 07:44:00 ResultValue Aspartate Transaminase, Serum 11 ALB 3.3 L T Bili 0.3 Bilirubin, Serum Direct - Conjugated 0.0 ALKP 104 Alanine Aminotransferase, Serum 12 T Pro 5.9 L Complete Blood Count + Differential 11-May-2018 07:44:00 ResultValue White Blood Cell Count 8.4 Nucleated Erythrocyte Count 0.0 Red Blood Cell Count 3.97 L HGB 11.3 L HCT 33.7 L MCV 85 MCHC 33.5 PLT 350 RDW-CV 14.2 Neutrophil % 55.6 Immature Granulocytes % 0.2 Lymphocyte % 25.8 Monocyte % 10.2 Eosinophil % 7.4 Basophil % 0.8 Neutrophil Count 4.65 Lymphocyte Count 2.16 Monocyte Count 0.85 Eosinophil Count 0.62 Basophil Count 0.07 Renal Function Panel 11-May-2018 07:44:00 ResultValue Glucose, Serum 165 H NA 139 K 3.9 CL 105 Bicarbonate, Serum 23 Anion Gap, Serum 15 BUN 23 CREAT 1.31 H GFR-Non 41 A GFR- 50 A Calcium, Serum 8.7 Phosphorus, Serum 3.7 ALB 3.3 L Coagulation Screen 11-May-2018 07:44:00 ResultValue Prothrombin Time, Plasma 12.7 International Normalized Ratio, Plasma 1.1 Activated Partial Thromboplastin Time 34 Magnesium, Serum 11-May-2018 07:44:00 ResultValue Magnesium, Serum 2.21 Hemoglobin A1C, Level 11-May-2018 07:44:00 ResultValue Estimated Average Glucose 143 Hemoglobin A1C, Level 6.6 Diagnosis of Diabetes-Adults Non-Diabetic: < or = 5.6% Increased risk for developing diabetes: 5.7-6.4% Diagnostic of diabetes: > or = 6.5% . Monitoring of Diabetes Age (y) Therapeutic Goal (%) Adults: >1 Radiology Results: Results: Conclusion: VASC LAB Pre-op Vessel Vein Mapping [May 11 2018 3:04PM] Conclusion: VASC LAB PVR (Arterial Physiologic) JOANA [May 11 2018 2:56PM] Conclusion: VASC LAB Carotid Artery Duplex Ultrasound [May 11 2018 2:51PM] Assessment: 62 y/o female with HTN, HLD, DM, and stroke 8 years ago (no residual deficits) s/p left presents as a transfer from [facility] for CABG evaluation. [place] further [place] [facility] [place] was discovered during VASC lab PVR a B/P difference of >20mmHG between both arms (Brachial Pressure on right was 124 mmHg 103 mmHg on the left). Vascular surgery was consulted for further evaluation of the BP discrepancy. RIGHT Lower PVR Pressures Ratios Right Posterior Tibial (Ankle) 82 mmHg 0.66 Right Dorsalis Pedis (Ankle) 87 mmHg 0.70 LEFT Lower PVR Pressures Ratios Left Dorsalis Pedis (Ankle) 73 mmHg 0.59 -Brachial Pressure 124 mmHg on Right and 103 mmHg on Left (No evidence of hemodynamically significant stenosis in the left subclavian) Right Carotid: Findings are consistent with less than 50% stenosis of the right ICA. Left Carotid: Findings are consistent with greater than 70% stenosis of the left ICA. Suggestions: - Upper extremity VASC LAB JOANA with PVR - Significant Stenosis in Left ICA, final recs pending - will follow Cale Matthews M.D. General Surgery PGY-1 Vascular Surgery [id number] Signature/Cosignature/Attestation: Attending AttestationI saw and evaluated the patient. I personally obtained the rico and critical portions of the history and physical exam or was physically present for rico and critical portions performed by the resident/fellow. I reviewed the resident/fellows documentation and discussed the patient with the resident/fellow. I agree with the resident/fellows medical decision making as documented in the residents note. I personally evaluated the patient (as noted in the above attestation) on 11-May-2018 Electronic Signatures: Cale Matthews (Resident)) (Signed 11-May-2018 18:08) Authored: Service, History of Present Illness, Allergies, Objective, Assessment/Recommendations, Signature/Cosignature/Attestation Thai Henley) (Signed 13-May-2018 08:21) Authored: Signature/Cosignature/Attestation Co-Signer: Assessment/Recommendations, Signature/Cosignature/Attestation Last Updated: 13-May-2018 08:21 by Thai Henley) Observed: 05/11/2018 Status: F Source: [facility]OR[facility] STAPH/MRSA SCREEN 3:45 PM HOSPITALS REPOSITORY PATIENT: DAVINA GREEN LOCATION: [place] [address] BILL#: [id number] : 55 AGE: SEX: F ORDERED BY: JOVANI GUERRERO SOURCE: ANTERIOR NARES COLLECTED: 05/11/18 15:45 ANTIBIOTICS AT JULIET.: RECEIVED : 05/11/18 19:36 SITE: NARES R E S U L T S STAPH/MRSA SCREEN FINAL 05/13/18 00:41 NO Staphylococcus aureus ISOLATED. Performed By: #### STAPH #### [facility] [address] [place] [address] TH CHEST 2 VIEW PA Observed: 05/11/2018 Status: F Source: [facility] 3:15 PM HOSPITALS REPOSITORY Patient Name: DAVINA GREEN STUDY: CHEST 2 VIEW PA AND LAT; 05/11/2018 3:15 pm INDICATION: Signs/Symptoms: preop cabg. COMPARISON: None. ACCESSION NUMBER(S): [id number] ORDERING CLINICIAN: JOVANI GUERRERO FINDINGS: Cardiomediastinal silhouette is at the upper limit of normal for size. No focal consolidation, large pleural effusion, or pneumothorax. No acute osseous abnormality. IMPRESSION: Cardiomediastinal silhouette is at upper limit of normal for size. Otherwise, no acute cardiopulmonary process. I personally reviewed the images/study and I agree with the findings as stated. This study was interpreted at [facility], [place], [place]. Electronically signed by: Rolf VALLE MD CONSULT-CARDIAC SURGERY Observed: 05/11/2018 Status: COMPLETED Source: [facility] 2:54 PM HOSPITALS REPOSITORY Service: Service: Cardiac Surgery Consult: Consult requested by (Attending Name): Lucrecia Chavez Reason: CABG eval History of Present Illness: Admission Reason: NSTEMI, CAD, Transferred for CABG eval HPI: PCP: Ivy Jimenez Vascular surgeon: Caitlyn Jimenez Cardiology: none prior; new from [place] is Charles Florentino 62 y/o WF with HTN, HLD, Type 2 DM - on insulin, PVD with prior RLE arterial procedure, and CVA 8 years ago (no residual deficits) s/p right CEA presents as a transfer from [facility] for CABG evaluation. She was admitted on 05/08/2018 with two days of intermittent sharp substernal chest pain and orthopnea. Also worsening fatigue. She denies any syncope/near syncope, nausea, vomiting, fever, or chills. Denies any prior cardiac history. At OSH Troponin 0.13; TTE was performed showing an EF of 37% with diastolic dysfunction; cardiac cath showed severe three-vessel disease with 90% stenosis of the LAD, 80-90% stenosis of the left circumflex, and a completely occluded right coronary. Loaded with Plavix. Transferred to [facility] 05/10/18 for CABG eval. Admitted to the [facility] cardiology service. Cardiac surgery consulted 05/11/18 for CABG eval. Pt currently hemodynamically stable, and denies CP or SOB. 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 Father of SD in mid-50s. ROS: A complete review of systems was performed and is otherwise negative except as noted in the HPI Allergies: Penicillin-Rash Meds: Aspirin, Plavix, Atorvastatin, Carvedilol, Lantus, Buspirone, Lisinopril Review Family/Social History and ROS: Review Family/Social History and ROS: I have reviewed the family and social history and review of systems from the History and Physical. Constitutional: NEGATIVE: Fever, Chills, Anorexia, Weight Loss, Malaise Eyes: POSITIVE: Blurry Vision; NEGATIVE: Drainage, Diploplia, Redness, Vision Loss/ Change; COMMENTS: states needs new glasses ENMT: POSITIVE: Nasal Congestion; NEGATIVE: Nasal Discharge, Ear Pain, Mouth Pain, Throat Pain Respiratory: POSITIVE: Productive Cough, Shortness of Breath; NEGATIVE: Dry Cough, Hemoptysis, Wheezing; COMMENTS: coughs in am Cardiac: POSITIVE: Chest Pain, Orthopnea; NEGATIVE: Dyspnea on Exertion, Palpitations, Syncope Gastrointestinal: NEGATIVE: Nausea, Vomiting, Diarrhea, Constipation, Abdominal Pain Genitourinary: NEGATIVE: Discharge, Dysuria, Flank Pain, Frequency, Hematuria Musculoskeletal: NEGATIVE: Decreased ROM, Pain, Swelling, Stiffness, Weakness Neurological: NEGATIVE: Dizziness, Confusion, Headache, Seizures, Syncope Psychiatric: NEGATIVE: Mood Changes, Anxiety, Hallucinations, Sleep Changes, Suicidal Ideas Skin: POSITIVE: Pruritus, Rash; NEGATIVE: Mass, Pain, Ulcer; COMMENTS: upper back/shoulders Endocrine: NEGATIVE: Heat Intolerance, Cold Intolerance, Sweat, Polyuria, Thirst Hematologic/Lymph: NEGATIVE: Anemia, Bruising, Easy Bleeding, Night Sweats, Petechiae Allergic/Immunologic: NEGATIVE: Anaphylaxis, Itchy/ Teary Eyes, Itching, Sneezing, Swelling Breast: NEGATIVE: Pain, Mass, Discharge, Nipple Itching, Gynecomastia All Other Systems: All other systems reviewed and are negative Allergies: penicillin: Hives/Urticaria Objective: Objective Information: T PRBPSpO2 Value36.22919489/7496% Date/Time05/11 11: 11: 11: 11: 11:29 Range(36.5C - 36.8C ) (85 - 93 ) (18 - 19 ) (115 - 134 )/ (73 - 83 ) (95% - 98% ) Weights 05/10 21:13: Weight in kg (Weight (kg)) 62.1 05/10 21:13: Weight in lbs ((lbs)) 137 05/10 21:13: BMI (kg/m2) (BMI (kg/m2)) 25.065 Physical Exam: Constitutional: sitting in bed; NAD pt is a good historian Eyes: sclera clear ENMT: poor dentition with few remaining teeth Head/Neck: neck supple R neck scar from remote CEA Respiratory/Thorax: nonlabored; CTA Cardiovascular: RRR; TELE - SR Gastrointestinal: soft; NT/ND; BS+ Genitourinary: voiding; denies dysuria Musculoskeletal: IREL[place] Extremities: no edema; PP+ R>L, L faint BLE warm BUE warm with palm radial pulses Neurological: awake; A&Ox4; no focal def Psychological: Appropriate mood and behavior Skin: warm and dry lichen planus rash upper back/shoulders Medications: Medications: Scheduled Medications 1. Aspirin Chewable: 81 mg Oral Daily 2. Atorvastatin: 40 mg Oral Daily 3. busPIRone (BUSPAR): 5 mg Oral Every 8 Hours 4. Carvedilol: 3.125 mg Oral 2 Times a Day 5. Enoxaparin SubCutaneous: 40 mg SubCutaneous Every 24 Hours 6. Insulin Glargine (Lantus) Injectable: 12 unit(s) SubCutaneous Daily 7. Insulin Lispro Mild Corrective Scale: unit(s) SubCutaneous 3 Times a Day Before Meals 8. Mupirocin 2%: 0.5 application(s) Each Nostril 2 Times a Day PRN Medications 1. Acetaminophen: 650 mg Oral Every 4 Hours 2. Albuterol 2.5 mg/ 3 mL Nebulizer Soln: 3 mL Inhalation Every 4 Hours 3. Dextrose 50% in Water Injectable: 25 gram(s) IntraVenous Push Every 15 Minutes 4. Glucagon Injectable: 1 mg IntraMuscular Every 15 Minutes 5. LORazepam: 0.25 mg Oral Every 12 Hours 6. Ondansetron Injectable: 4 mg IntraVenous Push Every 6 Hours Recent Lab Results: Results: I have reviewed these laboratory results: Glucose_POCT 11-May-2018 08:04:00 ResultValue Glucose-POCT 176 H Hepatic Function Panel 11-May-2018 07:44:00 ResultValue Aspartate Transaminase, Serum 11 ALB 3.3 L T Bili 0.3 Bilirubin, Serum Direct - Conjugated 0.0 ALKP 104 Alanine Aminotransferase, Serum 12 T Pro 5.9 L Complete Blood Count + Differential 11-May-2018 07:44:00 ResultValue White Blood Cell Count 8.4 Nucleated Erythrocyte Count 0.0 Red Blood Cell Count 3.97 L HGB 11.3 L HCT 33.7 L MCV 85 MCHC 33.5 PLT 350 RDW-CV 14.2 Neutrophil % 55.6 Immature Granulocytes % 0.2 Lymphocyte % 25.8 Monocyte % 10.2 Eosinophil % 7.4 Basophil % 0.8 Neutrophil Count 4.65 Lymphocyte Count 2.16 Monocyte Count 0.85 Eosinophil Count 0.62 Basophil Count 0.07 Renal Function Panel 11-May-2018 07:44:00 ResultValue Glucose, Serum 165 H NA 139 K 3.9 CL 105 Bicarbonate, Serum 23 Anion Gap, Serum 15 BUN 23 CREAT 1.31 H GFR-Non 41 A GFR- 50 A Calcium, Serum 8.7 Phosphorus, Serum 3.7 ALB 3.3 L Coagulation Screen 11-May-2018 07:44:00 ResultValue Prothrombin Time, Plasma 12.7 International Normalized Ratio, Plasma 1.1 Activated Partial Thromboplastin Time 34 Magnesium, Serum 11-May-2018 07:44:00 ResultValue Magnesium, Serum 2.21 Radiology Results: Results: I have reviewed this radiology result: Conclusion: [facility] Pre-op Vessel Vein Mapping [May 11 2018 3:04PM] PRELIMINARY CONCLUSIONS: Left Lower Vein Mapping: The left great saphenous vein appears widely patent with no evidence of thrombosis or fibrosis. Right Lower Vein Mapping: The right great saphenous vein appears widely patent with no evidence of thrombosis or fibrosis. Conclusion: [facility] PVR (Arterial Physiologic) JOANA [May 11 2018 2:56PM] PRELIMINARY CONCLUSIONS: Right Lower PVR: Evidence of moderate arterial occlusive disease in the right lower extremity at rest. Monophasic flow is noted in the right dorsalis pedis artery and right posterior tibial artery. Triphasic flow is noted in the right common femoral artery. Left Lower PVR: Evidence of moderate arterial occlusive disease in the left lower extremity at rest. Monophasic flow is noted in the left dorsalis pedis artery. Biphasic flow is noted in the left common femoral artery. Unable to obtain posterior tibial doppler signal. B/P difference of >20 could be suggestive of a more proximal obstruction. May wish for further eval. Jovani Guerrero notified. Conclusion: [facility] Carotid Artery Duplex Ultrasound [May 11 2018 2:51PM] CRITICAL RESULT Critical Result: >70% L ICA STENOSIS Notification called to Jovani Guerrero CNP on 05/11/2018 at 2:50:40 PM by Chanel Rogel RVT. PRELIMINARY CONCLUSIONS: Right Carotid: Findings are consistent with less than 50% stenosis of the right ICA. The right vertebral artery is patent with antegrade flow. No evidence of hemodynamically significant stenosis in the right subclavian. Left Carotid: Findings are consistent with greater than 70% stenosis of the left ICA. There is a >50% stenosis noted in the left external carotid artery. The left vertebral artery is not visualized. No evidence of hemodynamically significant stenosis in the left subclavian. Imaging & Doppler Findings: Right Plaque Morph: The mid right common carotid artery demonstrates homogenous plaque. The distal right common carotid artery demonstrates homogenous plaque. The right carotid bulb demonstrates calcified plaque. Left Plaque Morph: The proximal left internal carotid artery demonstrates complex plaque. The proximal left common carotid artery demonstrates homogenous plaque. The mid left common carotid artery demonstrates homogenous plaque. The distal left common carotid artery demonstrates homogenous plaque. Assessment: 62 y/o WF with HTN, HLD, Type 2 DM - on insulin, PVD with prior RLE arterial procedure, and CVA 8 years ago (no residual deficits) s/p left presents as a transfer from [facility] for CABG evaluation. She was admitted on 05/08/2018 with two days of intermittent sharp substernal chest pain and orthopnea. Also worsening fatigue. She denies any syncope/near syncope, nausea, vomiting, fever, or chills. Denies any prior cardiac history. At OSH Troponin 0.13; TTE was performed showing an EF of 37% with diastolic dysfunction; cardiac cath showed severe three-vessel disease with 90% stenosis of the LAD, 80-90% stenosis of the left circumflex, and a completely occluded right coronary. Loaded with Plavix. Transferred to [facility] 05/10/18 for CABG eval. Admitted to the [facility] cardiology service. Cardiac surgery consulted 05/11/18 for CABG eval. Pt currently hemodynamically stable, and denies CP or SOB. Vascular lab called with critical carotid results, mod PAD on ABIs, and unequal arm BPs. IMPRESSION AND PLAN: Dr Melgar is reviewing available data. Dr Melgar was unable to meet the patient today, as she was off the floor for testing. - Primary team is having cath/echo uploaded by radiology. Then the discs will be in front of chart. - preop testing ordered - CABG date pending; might be Monday 05/14 but vascular finding may necessitate delay - echo is ordered and pending - please consult Vascular surgery for above findings on vascular studies - no alejandra/arb in the preop period - no oral antiplatelets except 81mg ASA - continue BB (needs a dose within 24hrs of skin incision) - continue asa, statin Thank you for the consult. Please call cardiac surgery immediately if the patient deteriorates clinically Signature/Cosignature/Attestation: Provider/Team Contact Info-Pager Numbercardiac surgery [phone] Electronic Signatures: Jovani Guerrero (COMMUNICATIONS PROGRAM MANAGER-CREDIT CONTROL ADMINISTRATOR) (Signed 11-May-2018 19:25) Authored: Service, History of Present Illness, Review Family/Social History and ROS, Allergies, Objective, Assessment/Recommendations, Signature/Cosignature/Attestation Last Updated: 11-May-2018 19:25 by Jovani Guerrero (COMMUNICATIONS PROGRAM MANAGER-CREDIT CONTROL ADMINISTRATOR) VASC LAB PVR (ARTERIAL Observed: 05/11/2018 Status: F Source: [facility]) JOANA 2:12 PM [facility], [address] [place] [address] and Vascular Lab Report PVR JOANA Patient Name: DAVINA GREEN Reading Physician: [id number] To MD Study Date: 05/11/2018 Referring Physician: Lucrecia Chavez MD MRN/PID: [id number] PCP: Accession/Order#: [id number] CC Report to: Date of : 1955 Technologist: Chanel Rogel RVT Gender: F Technologist 2: Admission Status: Inpatient Location Performed: [facility] Diagnosis/ICD: I73.9-Peripheral vascular disease, unspecified Procedure/CPT: 63362 Peripheral artery JOANA Only-[id number] Patient History: Pertinent History: R CEA. CONCLUSIONS: Right Lower PVR: Evidence of moderate arterial occlusive disease in the right lower extremity at rest. Decreased digital perfusion noted. Monophasic flow is noted in the right dorsalis pedis artery and right posterior tibial artery. Triphasic flow is noted in the right common femoral artery. Left Lower PVR: Evidence of moderate arterial occlusive disease in the left lower extremity at rest. Decreased digital perfusion noted. Monophasic flow is noted in the left dorsalis pedis artery. Biphas ic flow is noted in the left common femoral artery. Unable to obtain posterior tibial doppler signal. Right to left arm B/P difference of >20 mmHg may suggest proximal UE arterial stenosis. Imaging AND Doppler Findings: RIGHT Lower PVR Pressures Ratios Right Posterior Tibial (Ankle) 82 mmHg 0.66 Right Dorsalis Pedis (Ankle) 87 mmHg 0.70 LEFT Lower PVR Pressures Ratios Left Dorsalis Pedis (Ankle) 73 mmHg 0.59 Right Left Brachial Pressure 124 mmHg 103 mmHg [id number] Ivette To MD Final VASC LAB PRE-OP Observed: 05/11/2018 Status: F Source: [facility] VESSEL VEIN MAPPING 1:59 PM [facility], [address] [place], [place] [id number] and Vascular Lab Report Pre-op Vein Mapping Lower Patient Name: DAVINA GREEN Reading Physician: [id number] To MD Study Date: 05/11/2018 Referring Physician: Lucrecia Chavez MD MRN/PID: [id number] PCP: Accession/Order#: [id number] CC Report to: Date of : 1955 Technologist: Chanel Rogel RVLupe Gender: F Technologist 2: Admission Status: Inpatient Location Performed: [facility] Diagnosis/ICD: Z01.818-Encounter for other preprocedural examination; I24.8-Cardiac Ischemia Procedure/CPT: 50681 Vein mapping complete-[id number] Patient History: Pertinent History: R CEA, pre-op cabg. CONCLUSIONS: Left Lower Vein Mapping: The left great saphenous vein appears widely patent with no evidence of thrombosis or fibrosis. Right Lower Vein Mapping: The right great saphenous vein appears widely patent with no evidence of thrombosis or fibrosis. Imaging AND Doppler Findings: Right Compress Thrombus Diam SFJ Yes None 5.1 mm Prox Thigh GSV Yes None 4.8 mm Mid Thigh GSV Yes None 2.7 mm Dist Thigh GSV Yes None 3.1 mm Prox Calf GSV Yes None 2.2 mm Mid Calf GSV Yes None 1.8 mm Dist Calf GSV Yes None 2.5 mm Left Compress Thrombus Diam SFJ Yes None 8.2 mm Prox Thigh GSV Yes None 4.7 mm Mid Thigh GSV Yes None 2.5 mm Dist Thigh GSV Yes None 2.8 mm Prox Calf GSV Yes None 2.2 mm Mid Calf GSV Yes None 1.8 mm Dist Calf GSV Yes None 1.8 mm [id number] To MD Final VASC LAB CAROTID Observed: 05/11/2018 Status: F Source: [facility] ARTERY DUPLEX 1:28 PM HOSPITALS REPOSITORY ULTRASOUN [facility], [address] [place] [address] and Vascular Lab Report Carotid Artery Duplex Ultrasound Patient Name: DAVINA GREEN Reading Physician: [id number] Ivette To MD Study Date: 05/11/2018 Referring Physician: Lucrecia Chavez MD MRN/PID: [id number] PCP: Accession/Order#: [id number] CC Report to: Date of : 1955 Technologist: Chanel Rogel RVT Gender: F Technologist 2: Admission Status: Inpatient Location Performed: [facility] Diagnosis/ICD: I65.23-Occlusion and stenosis of bilateral carotid arteries Procedure/CPT: 24350 Cerebrovacular Carotid Duplex scan complete-[id number] Patient History: Pertinent History: R CEA. CRITICAL RESULT Critical Result: >70% L ICA stenosis. Degree of stenosis may be >80% based on EDV. Notification called to Jovani Guerrero CNP on 05/11/2018 at 2:50:40 PM by Chanel Rogel RVT. CONCLUSIONS: Right Carotid: Findings are consistent with less than 50% stenosis of the right ICA. The right vertebral artery is patent with antegrade flow. No evidence of hemodynamically significant stenosis in the right subclavian. Left Carotid: Findings are consistent with greater than 70% stenosis of the left ICA. Degree of stenosis may be >80%, based on EDV. There is a >50% stenosis noted in the left external caroltid art luis. The left vertebral artery is not visualized. No evidence of hemodynamically significant stenosis in the left subclavian. Imaging AND Doppler Findings: Right Plaque Morph: The mid right common carotid artery demonstrates homogenous plaque. The distal right common carotid artery demonstrates homogenous plaque. The right carotid bulb demonstrates calcified plaque. Left Plaque Morph: The proximal left internal carotid artery demonstrates complex plaque. The proximal left common carotid artery demonstrates homogenous plaque. The mid left common carotid artery demon strates homogenous plaque. The distal left common carotid artery demonstrates homogenous plaque. Right Left PSV EDV PSV EDV 127 cm/s CCA P 72 cm/s 141 cm/s CCA D 49 cm/s 103 cm/s 40 cm/s ICA P 480 cm/s 179 cm/s 132 cm/s 48 cm/s ICA M 301 cm/s 57 cm/s 104 cm/s 45 cm/s ICA D 44 cm/s 13 cm/s 184 cm/s ECA 501 cm/s 62 cm/s 16 cm/s Vertebral 175 cm/s Subclavian 165 cm/s Right Left ICA/CCA Ratio 0.7 9.8 [id number] Ivette To MD Final GLUCOSE-POCT Collected: 05/11/2018 Status: F Source: [facility] 12:40 PM HOSPITALS REPOSITORY TYPE CODE TESTS RESULT OUT OF RANGE REFERENCE UNITS LAB GLUP(LOINC) 74 - 99 mg/dL High 170 GLUCOSE-POCT Performed By: #### GLUPO #### [facility] [address] [facility] [place] [address] 12 LEAD ELECTROCARDIOGRAM Observed: 05/11/2018 Status: F Source: [place] 11:37 AM [facility] REPOSITORY [facility] Cardiovascular Services [address] [place] [address] 12 Lead EKG 05/08/18 0522 MR#: [id number] Acct: [id number] Name: DAVINA GREEN Rep #: [id number] : 1955 62 From: Joe Ba MD Attending Dr: Mike Christensen Status: DIS IN Ordering Dr: Mike Christensen MD Date: 05/08/18 Location: [facility] Sex: F C Admitted: 05/08/18 Test Reason : CP ADMIT Blood Pressure : / mmHG Vent. Rate : 099 BPM Atrial Rate : 099 BPM P-R Int : 122 ms QRS Dur : 106 ms QT Int : 390 ms P-R-T Axes : 072 072 088 degrees QTc Int : 500 ms Normal sinus rhythm Possible Inferior infarct , age undetermined Abnormal ECG Confirmed by ANDREA GARCIA, JOE ([id number]), editorial director RAYMUNDO LEIJA ([id number]) on 05/11/2018 11:36:44 AM Referred By: DR HADDAD Confirmed By:JOE BA MD 05/11/18 1136 Date Joe Ba MD CC: Ivy Jimenez III, MD; Mike Christensen Signed 12 LEAD ELECTROCARDIOGRAM Observed: 05/11/2018 Status: F Source: [place] 11:05 AM [facility] REPOSITORY [facility] Cardiovascular Services [address] [place] [address] 12 Lead EKG 05/09/18 0540 MR#: [id number] Acct: [id number] Name: DAVINA GREEN Rep #: [id number] : 1955 62 From: Charles Good MD Attending Dr: Mike Christensen Status: DIS IN Ordering Dr: Charles Good MD Date: 05/09/18 Location: [facility] Sex: F C Admitted: 05/08/18 Test Reason : AM EKG Blood Pressure : / mmHG Vent. Rate : 086 BPM Atrial Rate : 086 BPM P-R Int : 126 ms QRS Dur : 114 ms QT Int : 414 ms P-R-T Axes : 070 082 148 degrees QTc Int : 495 ms Normal sinus rhythm Possible Left atrial enlargement Septal infarct , age undetermined Possible Inferior infarct , age undetermined ST AND T wave abnormality, consider lateral ischemia Abnormal ECG Confirmed by FLORENTINO GARCIA, CHARLES ([id number]), editorial director RAYMUNDO LEIJA ([id number]) on 05/11/2018 11:04:33 AM Referred By: KATELIN Confirmed By:CHARLES GOOD MD 05/11/18 1104 Date Charles Good MD CC: Charles Good MD; Ivy Jimenez III, MD; Mike Christensen Signed 12 LEAD ELECTROCARDIOGRAM Observed: 05/11/2018 Status: F Source: [place] 11:05 AM [facility] REPOSITORY [facility] Cardiovascular Services [address] [place] [address] 12 Lead EKG 05/08/18 1223 MR#: [id number] Acct: [id number] Name: DAVINA GREEN Rep #: [id number] : 1955 62 From: Charles Good MD Attending Dr: Mike Christensen Status: DIS IN Ordering Dr: Joe Haddad MD Date: 05/08/18 Location: [facility] Sex: F C Admitted: 05/08/18 Test Reason : CP Blood Pressure : / mmHG Vent. Rate : 093 BPM Atrial Rate : 093 BPM P-R Int : 122 ms QRS Dur : 108 ms QT Int : 376 ms P-R-T Axes : 067 060 134 degrees QTc Int : 467 ms Normal sinus rhythm Possible Left atrial enlargement Septal infarct , age undetermined Inferior infarct , age undetermined ST AND T wave abnormality, consider anterolateral ischemia Abnormal ECG Confirmed by CHARLES GOOD MD ([id number]), editorial director RAYMUNDO LEIJA ([id number]) on 05/11/2018 11:05:17 AM Referred By: KATELIN Confirmed By:CHARLES GOOD MD 05/11/18 1105 Date Charles Good MD CC: Ivy Jimenez III, MD; Mike Christensen; Joe Haddad MD Signed DAILY PROGRESS Observed: 05/11/2018 Status: COMPLETED Source: [facility] 11:02 AM HOSPITALS REPOSITORY Service: Cardiology Subjective Data: DAVINA GREEN is a 62 year old Female who is Hospital Day # 2. Additional Information: Pt feels OK, reports no CP/SOB Objective Data: Objective Information: T PRBPSpO2 [id number]/7795% Date/Time05/11 7: 7: 7: 7: 7:04 Range(36.5C - 36.8C ) (85 - 93 ) (18 - 19 ) (121 - 134 )/ (73 - 83 ) (95% - 98% ) Pain reported at 05/11 7:04: 0 Weights 05/10 21:13: Weight in kg (Weight (kg)) 62.1 05/10 21:13: Weight in lbs ((lbs)) 137 05/10 21:13: BMI (kg/m2) (BMI (kg/m2)) 25.065 Physical Exam: Constitutional: thin appearing, sitting up in bed in NAD Head/Neck: N JVD Respiratory/Thorax: CTAB Cardiovascular: Reg S1S2 Gastrointestinal: soft, NT/ND, BS+ Extremities: no LE edema Neurological: no focal deficitsA Psychological: Appropriate mood and behavior Skin: Warm and dry Medication: Medications: Continuous Medications No continuous medications are active Scheduled Medications 1. Aspirin Chewable: 81 mg Oral Daily 2. Atorvastatin: 40 mg Oral Daily 3. busPIRone (BUSPAR): 5 mg Oral Every 8 Hours 4. Carvedilol: 3.125 mg Oral 2 Times a Day 5. Enoxaparin SubCutaneous: 40 mg SubCutaneous Every 24 Hours 6. Insulin Glargine (Lantus) Injectable: 12 unit(s) SubCutaneous Daily 7. Insulin Lispro Mild Corrective Scale: unit(s) SubCutaneous 3 Times a Day Before Meals 8. Mupirocin 2%: 0.5 application(s) Each Nostril 2 Times a Day PRN Medications 1. Acetaminophen: 650 mg Oral Every 4 Hours 2. Albuterol 2.5 mg/ 3 mL Nebulizer Soln: 3 mL Inhalation Every 4 Hours 3. Dextrose 50% in Water Injectable: 25 gram(s) IntraVenous Push Every 15 Minutes 4. Glucagon Injectable: 1 mg IntraMuscular Every 15 Minutes 5. Ondansetron Injectable: 4 mg IntraVenous Push Every 6 Hours Conditional Medication Orders 1. Perflutren Lipid Microsphere (Activated) 1.3 mL / NaCL 0.9% T.V. 10 mL Injectable: 0.5 mL IntraVenous Push Once Assessment and Plan: Assessment: 62 y/o female with a h/o HTN, HLD, and type II DM who presented with SOB and chest pain, found to have severe 3-vessel disease and transferred to [facility] for CABG evaluation. 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 Cont BB HTN - cont current med Rx Hyperlipidemia - cont statin PAD - s/p Left CEA in setting of CVA Type II DM - Insulin glargine 12 units daily (home dose=18 units) - ISS, accuhecks Tobacco abuse - PFT's Disp - pending Cardiac Surg eval Seen and discussed with Dr. Chavez Signature/Cosignature/Attestation: Comments/ Additional Findings This is a shared visit . I have reviewed the LIP's encounter note , approve the LIP's documentation and provide the following additional information from my personal encounter: Electronic Signatures: Fawad Keene (PHYSICIAN)) (Signed 11-May-2018 11:15) Authored: Service, Subjective Data, Objective Data, Assessment and Plan, Signature/Cosignature/Attestation Lucrecia Chavez) (Signed 11-May-2018 13:49) Authored: Signature/Cosignature/Attestation Co-Signer: Assessment and Plan, Signature/Cosignature/Attestation Last Updated: 11-May-2018 13:49 by Lucrecia Chavez) 12 LEAD ELECTROCARDIOGRAM Observed: 05/11/2018 Status: F Source: [place] 10:48 AM [facility] REPOSITORY [facility] Cardiovascular Services [address] [place] [address] 12 Lead EKG 05/08/18 0124 MR#: [id number] Acct: [id number] Name: DAVINA GREEN Rep #: [id number] : 1955 62 From: Charles Good MD Attending Dr: Mike Christensen Status: DIS IN Ordering Dr: Radha Hale MD Date: 05/08/18 Location: PCU Sex: F C Admitted: 05/08/18 Test Reason : SOB Blood Pressure : / mmHG Vent. Rate : 110 BPM Atrial Rate : 110 BPM P-R Int : 118 ms QRS Dur : 100 ms QT Int : 370 ms P-R-T Axes : 073 078 089 degrees QTc Int : 500 ms Sinus tachycardia Cannot rule out Inferior infarct , age undetermined Anteroseptal infarct , age undetermined ST AND T wave abnormality, consider lateral ischemia Abnormal ECG Confirmed by FLORENTINO GARCIA, CHARLES ([id number]), editorial director RAYMUNDO LEIJA ([id number]) on 05/11/2018 10:48:00 AM Referred By: Confirmed By:CHARLES GOOD MD 05/11/18 1048 Date Charles Good MD CC: Radha Hale MD; Ivy Jimenez III, MD; Mike Christensen Signed EMR ADDON Collected: 05/11/2018 Status: F Source: [place] 10:12 AM [facility] REPOSITORY TYPE CODE TESTS RESULT OUT OF REFERENCE UNITS RANGE LAB EMRAC(LOIN C) ADDON CONFIRMATION REQUEST REC'D Performed By: #### EMRAD #### NO LOCATION NEEDED GLUCOSE-POCT Collected: 05/11/2018 Status: F Source: [place] 8:04 AM [facility] REPOSITORY TYPE CODE TESTS RESULT OUT OF RANGE REFERENCE UNITS LAB GLUP(LOINC) 74 - 99 mg/dL High 176 GLUCOSE-POCT Performed By: #### GLUPO #### [facility] [address] [place] [address] CBC AND DIFFERENTIAL Collected: 05/11/2018 Status: F Source: [place] 7:44 AM [facility] REPOSITORY TYPE CODE TESTS RESULT OUT OF REFERENCE UNITS RANGE LAB WBCR(LOINC 4.4 - 11.3 x10E9/L ) WBC 8.4 LAB NRBC(LOINC 0.0-0.0 /100 WBC ) NUCLEATED RBC 0.0 LAB RBCCT(LOIN 4.00 - 5.20 x10E12/L C) Low RBC 3.97 LAB HGB(LOINC) 12.0 - 16.0 g/dL Low HGB 11.3 LAB HCT(LOINC) 36.0 - 46.0 % Low HCT 33.7 LAB MCV(LOINC) 80 - 100 fL MCV 85 LAB MCHC2(LOIN 32.0 - 36.0 g/dL C) MCHC 33.5 LAB PLTCT(LOIN 150 - 450 x10E9/L C) PLT 350 LAB RDWCV(LOIN 11.5 - 14.5 % C) RDW-CV 14.2 LAB NEUT(LOINC 40.0 - 80.0 % ) % NEUTROPHIL 55.6 LAB IG(LOINC) 0.0 - 0.9 % % AUTOMATED 0.2 IMMATURE GRAN Result Comment: Percent differential counts (%) should be interpreted in the context of the absolute cell counts (cells/L). LAB LYMPH(LOINC) 13.0 - 44.0 % % LYMPHOCYTE 25.8 LAB MONO(LOINC) 2.0 - 10.0 % % MONOCYTE 10.2 LAB EOS(LOINC) 0.0 - 6.0 % % EOSINOPHIL 7.4 LAB BASO(LOINC) 0.0 - 2.0 % % BASOPHIL 0.8 LAB #NEUT(LOINC) 1.20 - 7.70 x10E9/L NEUTROPHIL 4.65 LAB #LYMP(LOINC) 1.20 - 4.80 x10E9/L LYMPHOCYTE 2.16 LAB #MONO(LOINC) 0.10 - 1.00 x10E9/L MONOCYTE 0.85 LAB #EOS(LOINC) 0.00 - 0.70 x10E9/L EOSINOPHIL 0.62 LAB #BASO(LOINC) 0.00 - 0.10 x10E9/L BASOPHIL 0.07 Performed By: #### CBCDF #### [facility] [address] [place] [id number] MAGNESIUM Collected: 05/11/2018 Status: F Source: [place] 7:[address] [place] [address] REPOSITORY TYPE CODE TESTS RESULT OUT OF REFERENCE UNITS RANGE LAB MG(LOINC) 1.60 - 2.40 mg/dL MAGNESIUM 2.21 Performed By: #### MG #### [facility] [address] [place] [id number] RENAL FUNCTION PANEL Collected: 05/11/2018 Status: F Source: [place] 7:44 [facility] REPOSITORY TYPE CODE TESTS RESULT OUT OF RANGE REFERENCE UNITS LAB GLU(LOINC) 74 - 99 mg/dL High GLUCOSE 165 LAB SOD(LOINC) 136 - 145 mmol/L SODIUM 139 LAB K(LOINC) 3.5 - 5.3 mmol/L POTASSIUM 3.9 LAB CHLOR(LOIN 98 - 107 mmol/L C) CHLORIDE 105 LAB BIC(LOINC) 21 - 32 mmol/L BICARBONATE 23 LAB ANGAP(LOIN 10 - 20 mmol/L C) ANION GAP 15 LAB UREA(LOINC 6 - 23 mg/dL ) UREA NITROGEN 23 LAB CREA(LOINC 0.50 - 1.05 mg/dL ) High CREATININE 1.31 LAB GFRFN(LOIN >60 mL/min/1.7 C) 3m2 GFR-NON Abnormal AM. 41 LAB GFRAA(LOIN >60 mL/min/1.7 C) 3m2 GFR- Abnormal AM. 50 Result Comment: CALCULATIONS OF ESTIMATED GFR ARE PERFORMED USING THE MDRD STUDY EQUATION FOR THE IDMS-TRACEABLE CREATININE METHODS. CLIN CHEM 2007;53:766-72 LAB CA(LOINC) 8.6 - 10.6 mg/dL CALCIUM 8.7 LAB PHOS(LOINC) 2.5 - 4.9 mg/dL PHOSPHORUS 3.7 Result Comment: The performance characteristics of phosphorus testing in heparinized plasma have been validated by the individual laboratory site where testing is performed. Testing on heparinized plasma is not approved by the FDA; however, such approval is not necessary. LAB ALB(LOINC) 3.4 - 5.0 g/dL Low ALBUMIN 3.3 Performed By: #### RENAL #### [facility] [address] [place] [address] COAGULATION SCREEN Collected: 05/11/2018 Status: F Source: [place] 7:44 AM HOSPITALS REPOSITORY TYPE CODE TESTS RESULT OUT OF REFERENCE UNITS RANGE LAB PT(LOINC) 9.7 - 12.7 sec PROTHROMBIN TIME 12.7 Result Comment: Note new reference range as of 03/20/2018. LAB INR(LOINC) 0.9 - 1.1 PT, INR 1.1 LAB APTT(LOINC) 28 - 38 sec APTT 34 Result Comment: Note new reference range as of 03/20/2018. THE APTT IS NO LONGER USED FOR MONITORING UNFRACTIONATED HEPARIN THERAPY. FOR MONITORING HEPARIN THERAPY, USE THE HEPARIN ASSAY. Performed By: #### COAGS #### [facility] [address] [place] [address] HEPATIC FUNCTION Collected: 05/11/2018 Status: F Source: [place] PANEL 7:44 AM HOSPITALS REPOSITORY TYPE CODE TESTS RESULT OUT OF REFERENCE UNITS RANGE LAB ALB(LOINC) 3.4 - 5.0 g/dL Low ALBUMIN 3.3 LAB TBILI(LOIN 0.0 - 1.2 mg/dL C) BILIRUBIN,TOTAL 0.3 LAB DBILI(LOIN 0.0 - 0.3 mg/dL C) BILIRUBIN,DIRECT 0.0 LAB AP(LOINC) 33 - 136 U/L ALKALINE PHOSPHATASE 104 LAB ALT(LOINC) 7 - 45 U/L ALT 12 Result Comment: Patients treated with Sulfasalazine may generate falsely decreased results for ALT. LAB AST(LOINC) 9 - 39 U/L AST 11 LAB TP(LOINC) 6.4 - 8.2 g/dL Low TOTAL PROTEIN 5.9 Performed By: #### HEPFP #### [facility] [address] [place] [address] HEMOGLOBIN A1C Collected: 05/11/2018 Status: F Source: [place] 7:44 AM [facility] REPOSITORY TYPE CODE TESTS RESULT OUT OF RANGE REFERENCE UNITS LAB HBA1C(LOINC % ) HGB A1C 6.6 Result Comment: Diagnosis of Diabetes-Adults Non-Diabetic: < or = 5.6% Increased risk for developing diabetes: 5.7-6.4% Diagnostic of diabetes: > or = 6.5% . Monitoring of Diabetes Age (y) Therapeutic Goal (%) Adults: >18 <7.0 Pediatrics: 13-18 <7.5 7-12 <8.0 0- 6 7.5-8.5 [employer]. Diabetes Care 33(S1), May 2009. LAB ESAVG(LOINC) MG/DL EST.AVG.GLUCOSE 143 Performed By: #### HBA1E #### [facility] [address] [place] [address] DISCHARGE PLANNING Observed: 05/10/2018 Status: UNK Source: UNIVERSITY NOTE 9:15 PM HOSPITALS REPOSITORY Discharge Needs Assessment: Discharge Planning Assessment Discharge Planning Assessment Completed byMontserrat Saba RN Wall Taper Helper [phone] Readmission Within the Last 30 Daysno previous admission in last 30 days Primary Care PhysicianFrdeep Kernsbul Patient Learning: Factors that Impact Ability to Learnnone(1) Other Factors: Functional Screen: In the recent/past 2-4 weeks, patient or family have noticedno issues that require a rehabilitation consult at this time(2) Discharge Planning: Discharge Plannin05/10/18 2100 exploration driller Planning Note: Pt. arrived from OSH in [place] d/t chest pain and CABG workup. pt. lives in an apartment in [place] with her and son and [place]. Patient is not active with any home care services. Anticipate d/c to home with no additional needs. Derek Segundo RN 05-11-18 0983 Wall Taper Helper Note: Met with patient to discuss discharge planning. Correct PCP, address, and phone number verified with patient from demographic sheet. Patient lives home with and son. Patient states they feel safe at home and denies any recent falls. No current home care or DME equipment. Preferred pharmacy is [facility] in [place]. Preferred pharmacy added to outpatient medication review. Patient states no difficulty obtaining or paying for medications. Patient states her and her do not own a vehicle. She uses her transportation benefit though [employer] to get to doctors appointments. Patient will have transportation at time of discharge provided by her children. States her children also assist with transportation needs. Patient denies need to speak with social work. Patient is not medically ready for discharge. online content coordinator will follow. Montserrat Saba RN Wall Taper Helper [phone] 05-11-18 1508 Wall Taper Helper Note: Patient discussed during interdisciplinary rounds. CABG eval. Patient is not medically ready for discharge. online content coordinator will follow. Montserrat Saba RN Wall Taper Helper [phone] 05-14-18 1445 Wall Taper Helper Note: Awaiting date for OR. Montserrat Saba RN Wall Taper Helper [phone] 05-15-18 1510 Wall Taper Helper Note: Patient discussed during interdisciplinary rounds. Awaiting date for CABG. Montserrat Saba RN Wall Taper Helper [phone] 05/18/2018 1400 Wall Taper Helper Note - Discharge Planning Patient discussed in afternoon rounds. Patient may have PCI on 05/18 then possible discharge 05/19/2018. Danis Adair RN Wall Taper Helper Pager [phone] 05/20/18 6423- Pt remained safe and VSS throughout shift. Discharge instruction reviewed with pt at bedside, no questions or concerns voiced at this time. Pt recieved scripts for medications along with information cards about stents. Pt had recieved both pneumonia and flu vaccine this year. No acute issues at this time. Midline was removed and tele was returned to floor. Pt is leaving per wheelchair to private car with family member. Angelina Hidalgo RN Electronic Signatures: Danis Adair (CLIN COOR) (Signed 18-May-2018 18:17) Authored: Discharge Planning Note Raj Segundo (CN) (Signed 10-May-2018 21:17) Authored: Discharge Planning Note Montserrat Saba (CLIN COOR) (Signed 15-May-2018 15:15) Authored: Discharge Planning Note Angelina Hidalgo (RN) (Signed 20-May-2018 18:01) Authored: Discharge Planning Note Last Updated: 20-May-2018 18:01 by Angelina Hidalgo (RN) References: 1. Data Referenced From 5. Education 05/10/2018 9:08 PM 2. Data Referenced From Admission Risk Screen - Adult 05/10/2018 9:08 PM PATIENT PROFILE - Observed: 05/10/2018 Status: UNK Source: [place] ADULT V2 9:13 PM [facility]PITALS REPOSITORY Profile: Initial Info: How to be Addressedjoy Spoken Language PreferredEnglish Are you currently using the Personal Electronic Health Record or Fusion TelecommunicationsCAREno Are you interested in learning more about [facility] for the management of your healthdeclined Stated Reason for Admissionchest pain Arrived Fromspital Patient Belongingsremains with patient Patient Belongings Remaining with Patientclothing Medications Brought to Hospitalno General Health: Weight in kg62.1 kilogram(s) Weight in wpi727 pound(s) Height in feet5 feet Height in inches2 inch(es) Height in cm157.4 centimeter(s) BMI (kg/m2)25.065 square meter Weight Methodactual (measured) Scale Typestanding Height Methodstated RSP Based Care: How would you like to participate in your carejust make sure I know what's going on What is the number one concern for you during this hospitalizationgetting surgery over with if I need it What is the most important thing we can do to support you during this hospitalizationcluster care Is there anything we need to know to best care for youno Substance: Current or Former Substance Use never: e-Cigarette/Vaping, Alcohol, Street Drugs YES: Cigarette/Tobacco Tobacco Cessation Education (provide if tobacco use within the last 12 mos) patient declined Other Tobacco Use Commentspt. states that she has decided she is going to quit after this admission Health Mgmt: Symptoms/Conditions Managed at Homecardiovascular Cardiovascular Symptoms/Conditionshypertension Cardiovascular Management Strategiesmedication therapy Cardiovascular Managementmanaged Relationship/Environ: Primary Source of Support/Comfortspouse Lives Withspouse Living Arrangementsapartment Resource/Environmental Concernsnone Anticipated Transition [place] Services Anticipated at Transitionnone Significant IndicatorsComplete Information Review: Allergies, Home Meds and Significant Events have been Reviewed and Verified with Patient/Familyyes ALLERGY, INTOLERANCE, ADVERSE EVENT: Allergies: penicillin: Drug, Hives/Urticaria, Active Electronic Signatures: Raj Segundo) (Signed 10-May-2018 21:20) Authored: Profile, Additional Information Last Updated: 10-May-2018 21:20 by Raj Segundo (SOCORRO) ADMISSION RISK SCREEN Observed: 05/10/2018 Status: UNK Source: [facility]ULT 9:08 PM [facility]OSPITALS REPOSITORY Allergies: Allergies: penicillin: Hives/Urticaria Patient Verification: New W ID Band Applied in my Departmentyes Patient Identity Verified Bypatient ID Band FULL Name, include Middle, spelling matches patient's ID used for verificationyes ID Band Matches Patient ID used for Verficationyes ID Band MRN Matches EMR MRNyes Advance Directive: Advance Directive Medicalno Advance Directive Information Givenpatient/family declined Falls Screen: Type of Assessmentadmission Moderate Risk Factorspatient care equipment (scds, ivs, chest tubes, marino, etc) Risk for Injury Associated with Fallcoagulation blood thinners (Coumadin, heparin gtt), coagulopathy Fall Risk Conclusionmoderate falls risk with risk for associated injury [place] Safety InterventionsWDL *orient to call system *instruct to call for assistance before getting out of bed *non-slip footwear when patient is out of bed *call thomas in reach *personal items and telephone in reach *physically safe environment (no spills or clutter) *bed in lowest position with wheels locked *appropriate side rails in place *room/bathroom lighting operational, light cord in reach *appropriate signage on door Fall and Injury Risk Interventionseducate pt/family, educate patient/family for risk for injury (fractures and bleeding) Family Violence Screen: Are you or have you been threatened or abused physically, emotionally, or sexually by anyoneno Do you feel UNSAFE going back to the place where you are livingno Do you feel anyone has exploited or taken advantage of you financially or of your personal propertyno Clinical assessment: Are there any apparent signs of injuries/behaviors that could be related to abuse/neglectno Social Service Consult for abuse/neglect needed this visitno Functional screen: Functional Screen: In the recent/past 2-4 weeks, patient or family have noticedno issues that require a rehabilitation consult at this time Learning Assessment (Patient): Patient is Able to be Assessed for Learningyes Factors Influencing Readiness to Learninterest in learning Factors that Impact Ability to Learnnone Devices/Methods Used to Communicatenone Learning Preferencesverbal instruction Cultural Considerationsnone Developmental Considerationsnone Faith Considerationsnone Learning Assessment (Other Learner): Other learner availableno Suicide/Depression Screen: During the past month, have you often been bothered by feeling down, depressed or hopelessno During the past month, have you often had little interest or pleasure in doing thingsno Have you had any thoughts of harming yourselfno Have you had any thoughts of harming anyone elseno Adult Nutrition Screen: Have you recently lost weight without tryingno Have you been eating poorly because of a decreased appetiteno MST Score0 RiskMST = 0 or 1 Not at risk. Eating well with little or no weight loss Nutrition Consult needed this visitno Can Patient Participate in Room Serviceyes Patient requires Paper Dishes/Plastic Utensilsno Pain Screen: Pain Scalenumerical 0-10 Pain Scale Educationteaching provided Current Pain Level0 = None Acceptable Pain Level0 = None Expression of Pain (nonverbal)verbalization Chronic Painno Spiritual Screen: Are there any cultural, spiritual, hoahaoism practices/values/needs that are important for us to knowno CAGE: Is this an [place] [place] [facility] no Vaccinations: Vaccination - Influenza Vaccination Screen: Is it flu season (between and )Yes Screening for identified contraindications to influenza vaccinationpatient already received vaccine this season Vaccination - Pneumonia Vaccination Screen: Patient has received a previous pneumonia vaccine:yes Ramesh: Skin - Ramesh Scale: Ramesh: Sensory Perception (response to environment)(4) no impairment Ramesh: Moisture (degree skin exposed to moisture)(4) rarely moist Ramesh: Activity (ability to walk)(4) walks frequently Ramesh: Mobility (amount/control of body movement)(4) no limitation Ramesh: Nutrition (quality of food intake)(3) adequate Ramesh: Friction and Shear(3) no apparent problem Ramesh: Score22 Significant Indicatiors: Significant Indicators: Complete Pressure Injury: Pressure Injury Present on Admissionno Electronic Signatures: Raj Segundo (SOCORRO) (Signed 10-May-2018 21:11) Authored: Admission Risk Screens, Vaccinations, Ramesh, Pressure Injury Last Updated: 10-May-2018 21:11 by Raj Segundo (SOCORRO) BEDSIDE GLUCOSE Collected: 05/10/2018 Status: F Source: [place] 4:22 PM [facility] REPOSITORY TYPE CODE TESTS RESULT OUT OF REFERENCE UNITS RANGE LAB L501.080 70-110 mg/dL High BEDSIDE GLU 161 Result Comment: MANAGEMENT OF PATIENT CARE PER NURSING PROTOCOL Performed By: #### L501.080 #### [facility] Point of Care [address] [place] [address] PROGRESS Observed: 05/10/2018 Status: COMPLETED Source: [place] 2:34 PM [facility] REPOSITORY HNO ID: [id number] Author: Napoleon Pizarro (Rn) Service: (none) Author Type: Registered Nurse Type: Progress Notes Filed: 05/10/2018 3:36 PM Note Text: PRIMARY CARE COORDINATION FOLLOW-UP NOTE Provider Action/FYI 1. Call to Pt spk with with Mandy who reported Pt is at [facility] who is awaiting a bed at [facility] for CABG. 2. [facility] [place] review: [facility] Pt adm [facility] 05/08/18-05/09/18 Dx: CHF, CP Transfer for Multi-vessel CABG, Troponin was borderline elevated, CXR revealed Pulmonary Vascular congestion consistent with CHF. D- dimer was elevated for which CTA done, no evidence of PE or dissection, revealed bilateral small Pleural effusion and diffuse interstitial edema consistent with CHF. Pt treated with ASA, loading dose of Plavix, beta-blockers and Alejandra Inhibitors. Pt underwent a cardiac cath revealed triple vessel disease, CABG indicated, accepted to [facility] main awaiting bed availability Patient identified by name and date of . YES Spoke to patient Concerns: Pt is currently at [facility] awaiting bed at [facility] for CABG Wall Taper Helper plan for next outreach: Health Maintenance, Early symptom awareness and communication to Pcp / CREDIT CONTROL ADMINISTRATOR to prevent complications Signature Juarez Bender RN May 10, 2018 BEDSIDE GLUCOSE Collected: 05/10/2018 Status: F Source: [place] 11:27 AM [facility] REPOSITORY TYPE CODE TESTS RESULT OUT OF REFERENCE UNITS RANGE LAB L501.080 70-110 mg/dL High BEDSIDE GLU 203 Result Comment: MANAGEMENT OF PATIENT CARE PER NURSING PROTOCOL Performed By: #### L501.080 #### [facility] Point of Care [address] [place], [place] [id number] BEDSIDE GLUCOSE Collected: 05/10/2018 Status: F Source: [place] 6:55 AM [facility] REPOSITORY TYPE CODE TESTS RESULT OUT OF REFERENCE UNITS RANGE LAB L501.080 70-110 mg/dL High BEDSIDE GLU 160 Result Comment: MANAGEMENT OF PATIENT CARE PER NURSING PROTOCOL Performed By: #### L501.080 #### [facility] Point of Care [address] [facility] [place] [address] CNPTOUTREACH Observed: 05/10/2018 Status: COMPLETED Source: [place] 12:00 AM [facility] REPOSITORY Patient Outreach (FAMPWS) DAVINA GREEN ([id number]) 1955 F Date Time Provider Department 05/10/18 NAPOLEON PIZARRO (RN) FAMPWS During your visit today, we recorded the following information about you: Juarez Bender RN 05/10/2018 3:36 PM Signed PRIMARY CARE COORDINATION FOLLOW-UP NOTE Provider Action/FYI 1. Call to Pt spk with with Mandy who reported Pt is at [facility] who is awaiting a bed at [facility] for CABG. 2. [facility] review: [facility] Pt adm [facility] 05/08/18-05/09/18 Dx: CHF, CP Transfer for Multi-vessel CABG, Troponin was borderline elevated, CXR revealed Pulmonary Vascular congestion consistent with CHF. D- dimer was elevated for which CTA done, no evidence of PE or dissection, revealed bilateral small Pleural effusion and diffuse interstitial edema consistent with CHF. Pt treated with ASA, loading dose of Plavix, beta-blockers and Alejandra Inhibitors. Pt underwent a cardiac cath revealed triple vessel disease, CABG indicated, accepted to [facility] main awaiting bed availability Patient identified by name and date of . 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 Chaparrita Hidalgo PRAVACHOL (PRAVASTATIN SODIUM) 03/04/2010 5 - Intolerance Comments: Fatigue, loss of appetite. 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] Cmt: [facility] Maintenance Prescriptions as of 05/10/2018 Sig: ACETAMINOPHEN ER 650 MG TABLE* Take 2 tablets by mouth twice* AMLODIPINE 10 MG TABLET Take 1 tablet by mouth once d* ATORVASTATIN 40 MG TABLET Take 1 tablet by mouth daily * BLOOD SUGAR DIAGNOSTIC STRIPS Test blood sugar(s) 4 times d* BUSPIRONE 10 MG TABLET Take 1 tablet by mouth three * COMPOUNDED PRESCRIPTION Grab Bar Dx: DIPHENHYDRAMINE 25 MG TABLET Take 2 tablets by mouth every* ERGOCALCIFEROL (VITAMIN D2) 5* Take 1 capsule by mouth once * IBUPROFEN 600 MG TABLET Take 1 tablet by mouth every * INSULIN GLARGINE (U-100) 100 * Inject 18 Units subcutaneousl* INSULIN LISPRO (U-100) 100 UN* Inject 6 Units subcutaneously* PEN NEEDLE, DIABETIC 31 GAUGE* Use one needle with each insu* LANCETS 28 GAUGE Test blood sugar(s) 4 times d* LISINOPRIL 30 MG TABLET Take 1 tablet by mouth once d* MOMETASONE 0.1 % TOPICAL CREAM Apply 1 application to affect* SUMATRIPTAN 50 MG TABLET take 1 tablet at onset of bettie* Problem List As Of Date 05/10/2018 Noted Resolved Stroke/Cerebrovascular Accident [I63.9] INVALID FOR* Lumbago-Sciatica due to Displacement of Lumbar *INVALID FOR* DDD (Degenerative Disc Disease), Lumbar [M51.36]INVALID FOR* Cannabis Abuse [F12.10] INVALID FOR* Lichen planus [L43.9] INVALID FOR* More... Lumbar facet arthropathy [M47.816] INVALID FOR* Essential hypertension, benign [I10] INVALID FOR* More... Nasal obstruction [J34.89] INVALID FOR* Myofascial pain [M79.18] INVALID FOR* Diabetic nephropathy with proteinuria (HCC) [E1*INVALID FOR* Hyperlipidemia with target LDL less than 100 [E*INVALID FOR* More... History of cerebrovascular accident (CVA) with *INVALID FOR* More... 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 Diabetic ulcer of toe of left foot associated w*INVALID FOR* More... Lumbar radiculopathy [M54.16] INVALID FOR* More... Gangrene (HCC) [I96] INVALID FOR*12/25/2017 More... Wound abscess [WVW5828] INVALID FOR* More... Depression [F32.9] INVALID FOR* More... Diabetes (HCC) [E11.9] INVALID FOR* More... Tobacco abuse [Z72.0] INVALID FOR* More... Abscess [L02.91] INVALID FOR*12/25/2017 More... Foot abscess, left [L02.612] INVALID FOR* Penicillin allergy [Z88.0] INVALID FOR* C. difficile diarrhea [A04.72] INVALID FOR*01/07/2018 More... Hypokalemia [E87.6] INVALID FOR*12/31/2017 More... Malnutrition of moderate degree (HCC) [E44.0] INVALID FOR*01/08/2018 More... Normocytic anemia [D64.9] INVALID FOR* More... Electrolyte imbalance [E87.8] INVALID FOR*01/08/2018 More... CKD (chronic kidney disease), stage III (HCC) [*INVALID FOR* Encounter Status:Closed by JUAREZ BENDER on 05/10/18 BEDSIDE GLUCOSE Collected: 05/09/2018 Status: F Source: [place] 9:39 PM [facility] REPOSITORY TYPE CODE TESTS RESULT OUT OF REFERENCE UNITS RANGE LAB L501.080 70-110 mg/dL High BEDSIDE GLU 145 Result Comment: MANAGEMENT OF PATIENT CARE PER NURSING PROTOCOL Performed By: #### L501.080 #### [facility] Point of Care [address] [place], [place] [address] BEDSIDE GLUCOSE Collected: 05/09/2018 Status: F Source: [place] 4:36 PM [facility] REPOSITORY TYPE CODE TESTS RESULT OUT OF REFERENCE UNITS RANGE LAB L501.080 70-110 mg/dL High BEDSIDE GLU 172 Result Comment: MANAGEMENT OF PATIENT CARE PER NURSING PROTOCOL Performed By: #### L501.080 #### [facility] Point of Care [address] [place], [place] [address] DISCHARGE SUMMARY Observed: 05/09/2018 Status: F Source: [place] 12:10 PM [facility] REPOSITORY [facility] Medical Records Department [address] [place] [address] Discharge Summary 05/09/18 1201 MR#: [id number] Acct: [id number] Name: DAVINA GREEN Ibeth Rep #: [id number] : 1955 62 From: Mike Christensen MD PCP: Ivy Jimenez III, MD Status: ADM IN Location: [place] [address] Discharge Date and Diagnosis - Problem List Patient Problems: Active and Suspected Problems (Last Updated 12/20/17 @ 17:32 by Jose Neely DO) Chest pain (Acute) Date of Admission: 05/08/18 Date of Discharge: 05/09/18 - Primary Discharge Diagnosis Active and Suspected Problems (Last Updated 12/20/17 @ 17:32 by Jose Neely DO) #1 multivessel coronary artery disease required transfer to a tertiary care center for CABG. #2 acute systolic congestive heart failure. - Secondary Discharge Diagnosis Chronic Problems (Last Updated 12/20/17 @ 17:32 by Jose Neely DO) Chronic ulcer of buttock (Chronic) Abscess of buttock (Chronic) Diabetes mellitus (Chronic) Hypertension (Chronic) History of CVA (cerebrovascular accident) (Chronic) Caries (Chronic) Tobacco abuse (Chronic) Tobacco abuse counseling (Chronic) Carotid arterial disease (Chronic) Hyperlipidemia (Chronic) Nicotine dependence (Chronic) Hospital Course and Treatment Imaging Results: Clinical Impression(s) from Imaging Studies Chest X-Ray 05/08/18 01:32 IMPRESSION: Central vascular congestion. Chronic interstitial lung changes. Electronically Signed: Roxanna Alicea MD at 2:15 EST Tel , Service support , Chest CTA 05/08/18 02:02 IMPRESSION: No pulmonary embolus. Bilateral pleural effusions. Diffuse interstitial edema. Electronically Signed: Roxanna Alicea MD at 3:21 EST Tel , Service support , Dr. Good, cardiology. Procedures: 2-D Echocardiogram, Cardiac catheterization, EKG Summary of Care Provided: The patient is a 62 year old F admitted because of shortness of breath and chest pain for evaluation. She was found to have acute systolic CHF based on clinical findings and chest x-ray findings and she was started on IV diuretics as well as beta-blockers and ALEJANDRA inhibitors. Her EKG revealed no evidence of acute ischemic changes. Her troponin was borderline elevated. Chest x-ray revealed pulmonary vascular congestion consistent with acute CHF. D-dimer was elevated for which CTA chest done and showed no evidence of PE or dissection, revealed bilateral small pleural effusion and diffuse interstitial edema consistent with CHF. Patient was given aspirin, loading dose of Plavix and was started on standard treatment for CHF including aspirin, beta-blockers and ALEJANDRA inhibitors. She underwent cardiac catheterization that revealed normal left main coronary artery, left anterior descending artery with long areas of multiple 90% stenosis, left circumflex artery with mid circumflex 80-90% stenosis and mid to distal 80-90% stenosis, dominant right coronary artery which was totally occluded as well as severe left ventricular systolic dysfunction. Because she was found to have triple-vessel disease and she is diabetic, CABG is indicated. Dr. Good made the arrangement for the patient to be transferred to [facility] for CABG. Patient was accepted to go to [facility] for CABG and awaiting a bed availability. Patient Problems: Active and Suspected Problems (Last Updated 12/20/17 @ 17:32 by Jose Neely DO) Chest pain (Acute) - Physical Exam General: Alert, Oriented x3, Cooperative, No apparent distress HEENT: Atraumatic, PERRLA, EOMI, Normocephalic Oral: Moist Mucosa, No Gingival or Mucosal Lesions/ Ulcerations Neck: Supple, No JVD, Negative Carotid Bruits, Trachea Midline, Thyroid Normal Size and Texture Lungs: No rhonchi, No wheeze, Diminished, Rales, - - Decreased breath sounds at the bases, faint crackles. Cardiovascular: Regular rate, Regular Rhythm, Normal S1, Normal S2, PMI Normal Abdomen: Bowel Sounds Present, Soft, Non Tender, Non-Distended, No Hepato-splenomegaly Extremities: No clubbing, No cyanosis, No edema Skin: No rashes, No breakdown Lymphatic: No Cervical, Supraclavicular, or Inguinal Adenopathy Neurological: Cranial nerves II-XII grossly intact, Neuro grossly intact Psych/Mental Status: Normal Affect, Appropriate Vital Signs Temp Pulse Resp BP Pulse Ox 98.7 F 96 18 122/72 H 96 05/09/18 11:35 05/09/18 11:35 05/09/18 11:35 05/09/18 11:35 05/09/18 11:35 Oxygen Flow Rate (L/min) 2 Oxygen Delivery Method Room Air Weight: 145 lb 15.136 oz Body Mass Index (BMI) 28.5 Intake and Output for Last 24 Hours Intake Total 360 / 360 60 / 60 Output Total 2700 / 2700 1050 / 1050 Balance -2340 / -2340 -990 / -990 Laboratory Tests Past 24 Hrs POC Glucose POC Glucose 179 H 122 H 101 POC Glucose 105 Home Medications: Medications to take at Discharge Amlodipine [Norvasc] 10 mg PO QHS 12/18/15 Lisinopril [Zestril] 10 mg PO DAILY 12/18/15 busPIRone [Buspar] 5 mg PO TID 12/18/15 Mometasone Furoate [Elocon] 50 gm TP DAILY PRN 12/10/17 Acetaminophen [Tylenol Tablet] 650 mg PO Q6H PRN PRN tablet 12/14/17 DiphenhydrAMINE [Benadryl] 25 mg PO TID PRN PRN 12/20/17 Insulin Glargine,Hum.rec.anlog [Lantus] 18 unit SQ QHS 12/20/17 Insulin Lispro [Humalog KwikPen] 6 unit SQ 0700,1200,1700 12/20/17 Atorvastatin Calcium [Lipitor] 40 mg PO QHS 05/08/18 Sumatriptan Succinate [Imitrex] 50 mg PO DAILY PRN 05/08/18 Primary Care Physician: Ivy Jimenez III, MD [Primary Care Provider] - Disposition: Acute care Hospital Minutes spent on discharge:: 32 Patient Condition:: Stable Medical Necessity - Tobacco Use Smoking Status: Current every day smoker Meaningful Use Info Meaningful Use Diagnoses (Choose all that apply): CHF - CHF ALEJANDRA/ARB ordered at discharge?: Yes Documented LVEF (%): 37 Code Visit Inpatient E AND M: [id number] Disch Hosp 05/09/18 1210 <Electronically signed by Mike Christensen MD> Date Mike Christensen MD Cosigner Signature (if applicable): Date CC: Charles Good MD; Ivy Jimenez III, MD; Mike Christensen Signed BEDSIDE GLUCOSE Collected: 05/09/2018 Status: F Source: [place] 11:07 AM [facility] REPOSITORY TYPE CODE TESTS RESULT OUT OF REFERENCE UNITS RANGE LAB L501.080 70-110 mg/dL High BEDSIDE GLU 179 Result Comment: MANAGEMENT OF PATIENT CARE PER NURSING PROTOCOL Performed By: #### L501.080 #### [facility] Point of Care [address] [place] [address] BEDSIDE GLUCOSE Collected: 05/09/2018 Status: F Source: [place] 6:49 AM [facility] REPOSITORY TYPE CODE TESTS RESULT OUT OF REFERENCE UNITS RANGE LAB L501.080 70-110 mg/dL High BEDSIDE GLU 122 Result Comment: MANAGEMENT OF PATIENT CARE PER NURSING PROTOCOL Performed By: #### L501.080 #### [facility] Point of Care [address] [place] [address] BASIC METABOLIC Collected: 05/09/2018 Status: F Source: [place] PROFILE (BMP) 5:10 AM [facility] REPOSITORY TYPE CODE TESTS RESULT OUT OF RANGE REFERENCE UNITS LAB L501.0100 74-106 mg/dL High GLU 112 Result Comment: Fasting Glucose result from 100 to 125 mg/dL suggests IMPAIRED HOMEOSTASIS per A.D.A. criteria. Please note revised GLUCOSE reference range effective 2017. LAB L501.1000 7-18 mg/dL High BUN 20 LAB L501.1100 0.55-1.02 mg/dL High CREAT,SERUM 1.29 Result Comment: The validity of the calculated GFR AND GFRAA in patients over 70 years has not been determined. Clinical correlation is essential. LAB L501.1110 >60 mL/min Low EST GFR 44 Result Comment: Non- GFR Calc LAB L501.1115 >60 mL/min Low EST GFR - AA 54 Result Comment: GFR Calc LAB L501.1255 ml/min Normal Estimated CRCL 32.48 LAB L501.1300 10-20 RATIO Normal BUN/CRE 15.5 LAB L501.2200 8.5-10 mg/dL Low .1 CA 8.4 LAB L501.5300 136-14 mmol/L Normal 5 NA 143 LAB L501.5600 3.5-5. mmol/L Low 1 K 3.2 LAB L501.5900 98-107 mmol/L High CL 108 LAB L501.6100 21.0-3 mmol/L Normal 2.0 CO2 26.0 LAB L501.6200 5-15 Normal GAP 9 Performed By: #### L500.2500 #### [facility] [address] [place], [address] PROTHROMBIN TIME W/INR Collected: 05/09/2018 Status: F Source: [place] 5:10 AM [facility] REPOSITORY TYPE CODE TESTS RESULT OUT OF RANGE REFERENCE UNITS LAB L300.4150 11.7-14.9 SECONDS Normal PROTIME 14.8 LAB L300.4200 Normal INR 1.2 Performed By: #### L300.3900, L300.4310 #### [facility] [address] [place], [address] PARTIAL THROMBOPLAST Collected: 05/09/2018 Status: F Source: [place] TIME 5:10 AM [facility] REPOSITORY TYPE CODE TESTS RESULT OUT OF RANGE REFERENCE UNITS LAB L300.4310 24.1-36.2 Seconds Normal PTT 31.7 Performed By: #### L300.3900, L300.4310 #### [facility] [place], [address] CBC W/DIFF, AUTOMATED Collected: 05/09/2018 Status: F Source: [place] 5:10 AM [facility] REPOSITORY TYPE CODE TESTS RESULT OUT OF RANGE REFERENCE UNITS LAB L100.1000 4.4-11.0 K/mm3 Normal WBC 6.0 LAB L100.1200 4.2-5.4 M/mm3 Low RBC 3.75 LAB L100.1300 12.0-15.0 g/dl Low HGB 10.8 LAB L100.1400 37-47 % Low HCT 32.6 LAB L100.1500 81-99 fL Normal MCV 86.9 LAB L100.1600 27.0-32.0 pg Normal MCH 28.8 LAB L100.1700 32-36 g/gl Normal MCHC 33.1 LAB L100.1810 11.6-14.6 % Normal RDW CV 14.6 LAB L100.1820 35.1-43.9 fl High RDW SD 44.6 LAB L100.1900 150-450 K/mm3 Normal PLT 382 LAB L100.2000 6.2-12.0 fl Normal MPV 9.6 LAB L100.2100 47-70 % Normal NEUT% 59.7 LAB L100.2200 19-41 % Normal LY% 23.2 LAB L100.2300 0-10 % Normal MONO% 9.0 LAB L100.2400 0-5 % High EO% 6.7 LAB L100.2500 0-1 % High BASO% 1.2 LAB L100.2550 0.0-0.9 % Normal IM GRAN % 0.200 Result Comment: IG% - Immature Granulocytes (promyelocytes, myelocytes and metamyelocytes) > 1% indicates that a LEFT SHIFT is Present. LAB L100.2620 2.0-7.7 X10 3/uL Normal Absolute Neut 3.6 LAB L100.2720 0.83-4.51 X10 3/ul Normal Absolute Lymph 1.39 Performed By: #### L100.0100 #### [facility] [address] [facility] [address] BEDSIDE GLUCOSE Collected: 05/08/2018 Status: F Source: [place] 9:06 PM [facility] REPOSITORY TYPE CODE TESTS RESULT OUT OF RANGE REFERENCE UNITS LAB L501.080 70-110 mg/dL Normal BEDSIDE GLU 101 Result Comment: MANAGEMENT OF PATIENT CARE PER NURSING PROTOCOL Performed By: #### L501.080 #### [facility] Point of Care [address] [place] [address] BEDSIDE GLUCOSE Collected: 05/08/2018 Status: F Source: [place] 4:50 PM [facility] REPOSITORY TYPE CODE TESTS RESULT OUT OF RANGE REFERENCE UNITS LAB L501.080 70-110 mg/dL Normal BEDSIDE GLU 105 Result Comment: MANAGEMENT OF PATIENT CARE PER NURSING PROTOCOL Performed By: #### L501.080 #### [facility] Point of Care [address] [place] [address] BEDSIDE GLUCOSE Collected: 05/08/2018 Status: F Source: [place] 11:45 AM [facility] REPOSITORY TYPE CODE TESTS RESULT OUT OF REFERENCE UNITS RANGE LAB L501.080 70-110 mg/dL High BEDSIDE GLU 129 Result Comment: MANAGEMENT OF PATIENT CARE PER NURSING PROTOCOL Performed By: #### L501.080 #### [facility] Point of Care [address] [place] [address] ECHOCARDIOGRAM COMPLETE Observed: 05/08/2018 Status: F Source: [place] 11:39 AM [facility] REPOSITORY [facility] Cardiovascular Services [address] [place] [address] Echo Complete 05/08/18 0923 MR#: [id number] Acct: [id number] Name: DAVINA GREEN Rep #: [id number] : 1955 62 From: Charles Good MD Attending Dr: Mike Christensen Status: ADM IN Ordering Dr: Charles Good MD Date: 05/08/18 Location: U Sex: F C Admitted: 05/08/18 Reason For Study: CHF Procedure This was a 2D Doppler, Color Flow transthoracic echocardiogram. Exam performed portable in patient room. Left Ventricle Normal LV size. The estimated ejection fraction is 37 %. Moderate segmental systolic dysfunction (see wall motion). Stage 3 diastolic dysfunction. Mid-Inferior: Severely Hypokinetic. Infero-Basal: Akinetic. Basal inferoseptal: Akinetic. Septal [place] : Akinetic. Anterio-Basal: Normal. Lateral- Basal: Normal. Mid-Lateral : Normal. The rest of the wall segments are hypokinetic. Right Ventricle Normal RV size. Normal systolic function. Atria The left atrium is mildly enlarged. Normal right atrium. Mitral Valve Normal mitral valve. Mild-Moderate (1-2+) eccentric mitral valve insufficiency. Tricuspid Valve Normal tricuspid valve. Mild to moderate (1-2+) eccentric tricuspid valve insufficiency. Pulmonary artery systolic pressure is 44 mmHg. Mild pulmonary hypertension. Aortic Valve Trisinus/trileaflet aortic valve. Mild focal aortic valve calcification. Trivial eccentric aortic valve insufficiency. Pulmonic Valve Normal pulmonic valve. Great Vessels Normal aortic root. The pulmonary artery is normal size. Inferior vena cava collapse with respiration. Pericardium/Pleural No pericardial effusion. MMode/2D Measurements AND Calculations LVIDd: 5.5 cm IVSd: 1.2 cm Ao root diam: 2.5 cm LVIDs: 4.5 cm LVPWd: 1.0 cm RVDd: 3.8 cm FS: 18.5 % LAV(MOD-bp): 65.1 ml LA A4 area: 20.5 cm2 LA dimension(2D): 4.4 cm LAV(MOD-bp) Indexed: 39.9 ml/m2 LAV(MOD-sp2): 65.0 ml LAV(MOD-sp4): 65.0 ml RA A4 area: 13.7 cm2 Time Measurements MV dec time: 0.13 sec Doppler Measurements AND Calculations MV E max jazmine: 145.4 cm/sec Lat Peak E' Jazmine: 7.7 cm/sec Med Peak E' Jazmine: 4.3 cm/sec MV A max jazmine: 72.1 cm/sec E/E' lat: 18.8 E/E' med: 33.5 MV E/A: 2.0 Ao V2 max: 124.8 cm/sec LV V1 max: 93.2 cm/sec MR max jazmine: 546.4 cm/sec Ao max P.2 mmHg LV V1 max P.5 mmHg MR max P.4 mmHg PA V2 max: 100.6 cm/sec TR max jazmine: 317.3 cm/sec TR max P.5 mmHg Interpretation Summary Normal LV size. The estimated ejection fraction is 37 %. Moderate segmental systolic dysfunction (see wall motion). Stage 3 diastolic dysfunction. Mild-Moderate (1-2+) eccentric mitral valve insufficiency. Mild pulmonary hypertension. Ordering Physician: Charles Good Referring Physician: Ivy Jimenez Performed By: Trena Pruitt, HANSEL, RVT 05/08/18 1138 Date Charles Good MD CC: Charles Good MD; Ivy Jimenez III, MD; Mike Christensen Date Dictated: 05/08/18922 Date Transcribed: 05/08/18 113 Renewable Energy Technician: Signed CONSULTATION Observed: 05/08/2018 Status: F Source: [place] 10:36 AM [facility] REPOSITORY [facility] Medical Records Department [address] [place] [address] Consultation 05/08/18 0708 MR#: [id number] Acct: [id number] Name: DAVINA GREEN Rep #: [id number] : 1955 62 From: Charles Good MD PCP: Ivy Jimenez III, MD Status: ADM IN Location: [place] [address] Reason for Consult Date of Consultation: 05/08/18 Reason for Consultation: Chest discomfort. Shortness of breath History of Present Illness: The patient is a 62 year old F with no previous cardiac history other than hypertension who presented to the emergency room complaining of shortness of breath over the last few days as well as chest discomfort which she says has been on and off over the last 2 days. She described this as a heaviness in her chest. There was no radiation of the discomfort. She has not had any dizziness or diaphoresis no near syncope or syncope. She presented to the emergency room and was noted to be mildly tachycardic and to have an abnormal d-dimer. She underwent a CT scan of her chest which excluded pulmonary embolism. Cardiac troponin enzymes were obtained which were mildly abnormal and cardiology was called to assist in management. She was recently in the custodial after she had an amputation of her toe. She says that she has been under some stress recently. [] Past Medical History Allergies/Adverse Reactions: Allergies Penicillins Allergy (Severe, Verified 05/08/18 01:17) Swelling tolerated keflex in past with no issue Home Medications: Ambulatory Orders Medication Instructions Recorded Past Medical History (Chronic Problems): Chronic Problems (Last Updated 12/20/17 @ 17:32 by Jose Neely DO) Chronic ulcer of buttock (Chronic) Abscess of buttock (Chronic) Diabetes mellitus (Chronic) Hypertension (Chronic) History of CVA (cerebrovascular accident) (Chronic) Caries (Chronic) Tobacco abuse (Chronic) Tobacco abuse counseling (Chronic) Carotid arterial disease (Chronic) Hyperlipidemia (Chronic) Nicotine dependence (Chronic) Surgical History: - - Patient has undergone right carotid endarterectomy by Dr. Velma Jimenez approximately 7 years ago. She is a Ab0. - *Family History Maternal Family History: Family History (Last Updated 11/08/17 @ 13:38 by Melva Ashby) Mother No problems noted. History Items: Heart Disease, - - Patient's father in his 40s from myocardial infarction. Patient's mother in her 40s from a cerebrovascular accident. Smoking Status: Current every day smoker Alcohol: None Drugs: None Review of Systems - Review of Systems General: Denies: Fever, Night Sweats, Fatigue HEENT: Denies: Vision Change Cardiovascular: Reports: Chest Discomfort, Chest Discomfort at Rest. Denies: Shortness of Breath, Orthopnea, PND, Peripheral Edema, Palpitations, Lightheadedness, Dizziness, Near Syncope, Syncope Respiratory: Denies: Cough, Sputum Production, Hemoptysis Gastrointestinal: Denies: Hematemesis, Hematochezia, Melena Genitourinary: Denies: Dysuria, Hematuria Muscoloskeletal: Denies: Myalgias Skin: Denies: Rash Neurological: Denies: Dizziness Psychiatric: Denies: Anxiety Endocrine: Denies: Heat Intolerance Hematologic/ Lymphatic: Denies: Anemia Subjectve: Pleasant lady in no apparent distress Objective: Vital Signs Temp Pulse Resp BP Pulse Ox 98.9 F 102 H 28 H 116/76 91 05/08/18 04:12 05/08/18 04:50 05/08/18 04:50 05/08/18 04:12 05/08/18 05:22 Oxygen Flow Rate (L/min) 4 Oxygen Delivery Method Nasal Cannula Weight: 145 lb 15.136 oz Body Mass Index (BMI) 28.5 Intake and Output for Last 24 Hours Output Total 350 / 350 Balance -350 / -350 General: Awake, Alert, Oriented x 3 HEENT: PERRL, EOMI, Sclera Non Icteric Neck: Supple, Good ROM, No Lymph Node Enlargement Lungs: Rales - Shahab Bases Cardiovascular: Regular Rhythm, Normal S1, Normal S2, No Rubs, No Gallops Murmur Murmur: Grade 1/6, Early Systolic, LLSB Vascular: No Carotid Bruits, Normal Femoral Pulses, Normal Radial Pulses, Normal Dorsalis Pedal Pulse, Normal Posterior Tibial Pulses Abdomen: Bowel Sounds Present, Soft, Non Tender, No HSM, No Organomegaly Extremities: No Cyanosis, No Clubbing, No edema Musculoskeletal: No Erythema Skin: No Rashes Lymphatic: No Lymph Node Enlargement Neurological: No Focal Motor or Sensory Deficit Psych/Mental Status: Appropriate 05/08/18 01:35: WBC 10.6, RBC 4.18 L, Hgb 11.7 L, Hct 35.8 L, MCV 85.6, MCH 28.0, MCHC 32.7, RDW 14.5, RDW Differential 45.5 H, Plt Count 413, MPV 9.0, Immature Gran % (Auto) 0.100, Neut % (Auto) 57.6, Lymph % (Auto) 27.7, [place] % (Auto) 7.1, Eos % (Auto) 7.0 H, Baso % (Auto) 0.5, Absolute Neuts (auto) 6.1, Total Counted Not Reportable 05/08/18 01:35: D-Dimer Quant (PE/DVT) 0.59 H* 05/08/18 01:35: Sodium 140, Potassium 3.7, Chloride 107, Carbon Dioxide 27.0, Anion Gap 6, BUN 19 H, Creatinine 1.21 H, Est GFR (MDRD) Af Amer 58 L, Est GFR (MDRD) Non-Af 48 L, BUN/Creatinine Ratio 15.7, Glucose 137 H, Calcium 8.7, Troponin I 0.129 H 05/08/18 05:45: WBC 9.8, RBC 3.77 L, Hgb 10.9 L, Hct 33.1 L, MCV 87.8, MCH 28.9, MCHC 32.9, RDW 14.6, RDW Differential 45.7 H, Plt Count 391, MPV 9.6 05/08/18 05:45: Sodium 141, Potassium 4.0, Chloride 109 H, Carbon Dioxide 23.0, Anion Gap 9, BUN 18, Creatinine 1.13 H, Est GFR (MDRD) Af Amer 63, Est GFR (MDRD) Non-Af 52 L, BUN/Creatinine Ratio 15.9, Glucose 158 H, Calcium 8.2 L, Total Bilirubin 0.20, Triglycerides 110, Cholesterol 174, LDL Cholesterol 105, VLDL Cholesterol 22, HDL Cholesterol 47 05/08/18 05:45: PT 14.5, INR 1.1 Rhythm: EKG: Sinus tachycardia with Q waves noted in lead III and aVF ECHO: Stress Test: Cardiac Cath: PCI: CT Surgery: Holter monitor: EPS: PPM: CXR: Chest CT Scan: Assessment/Plan 1. Acute congestive heart failure-systolic * The patient presents with shortness of breath and chest discomfort and has clinical symptomatology consistent with congestive heart failure. This is her first episode for her. * Recommendation will be to obtain an echocardiogram to assess her left ventricular function * Intravenous diuresis with Lasix * We will start ALEJANDRA inhibitor and beta-saurabh * Further recommendations of the above will depend on the results of above. I would however favor an invasive approach as she likely has coronary artery disease especially since she had a toe amputation likely secondary to vascular disease. * 2. Hypertension * She has uncontrolled blood pressure which should be treated with a combination of ALEJANDRA inhibitor and beta-saurabh * Echocardiographic exam will be performed to assess wall thickness * 3. Abnormal cardiac enzymes * Patient has abnormal cardiac enzymes the etiology of which is unclear at this particular time * Will start aspirin * Will load with clopidogrel * Continue to cycle enzymes * Start high intensity statin * * Thank you for allowing me to participate in the care of your patient. Please don't hesitate to call if any issues arise 05/08/18 1036 <Electronically signed by Charles Good MD> Date Charles Good MD Cosigner Signature (if applicable): Date CC: Charles Good MD; Ivy Jimenez III, MD Signed TROPONIN-I Collected: 05/08/2018 Status: F Source: [place] 9:10 AM [facility] REPOSITORY Order Comment: 'TROP' Serial specimen #1, #2 or #3: 2 TYPE CODE TESTS RESULT OUT OF RANGE REFERENCE UNITS LAB L501.4010 <0.045 ng/mL High 0.106 TROPONIN-I Result Comment: TROPONIN-I EXPECTED VALUES <0.045 Negative 0.045 - 0.590 Consistent with Cardiac Damage > OR = 0.600 Critical Value Not every elevated troponin is indicative of SD. These values should be used with clinical judgement in examining the patient's clinical picture for diagnosis. To establish a diagnosis of SD versus myocardial injury, there must be a demonstrated rise and/or fall in the troponin values, in addition to ischemic symptoms, EKG changes, new regional wall motion abnormality, and/or angiographical evidence. PLEASE NOTE: REFERENCE RANGES EDITED 17 Performed By: #### L501.4010 #### [facility] [address] [place], [address] BEDSIDE GLUCOSE Collected: 05/08/2018 Status: F Source: [place] 6:49 AM [facility] REPOSITORY TYPE CODE TESTS RESULT OUT OF REFERENCE UNITS RANGE LAB L501.080 70-110 mg/dL High BEDSIDE GLU 170 Result Comment: MANAGEMENT OF PATIENT CARE PER NURSING PROTOCOL Performed By: #### L501.080 #### [facility] Point of Care [address] [place] [address] CBC-COMPLETE BLOOD CNT Collected: 05/08/2018 Status: F Source: [place] NO DIFF 5:45 AM [facility] REPOSITORY TYPE CODE TESTS RESULT OUT OF RANGE REFERENCE UNITS LAB L100.1000 4.4-11.0 K/mm3 Normal WBC 9.8 LAB L100.1200 4.2-5.4 M/mm3 Low RBC 3.77 LAB L100.1300 12.0-15.0 g/dl Low HGB 10.9 LAB L100.1400 37-47 % Low HCT 33.1 LAB L100.1500 81-99 fL Normal MCV 87.8 LAB L100.1600 27.0-32.0 pg Normal MCH 28.9 LAB L100.1700 32-36 g/gl Normal MCHC 32.9 LAB L100.1810 11.6-14.6 % Normal RDW CV 14.6 LAB L100.1820 35.1-43.9 fl High RDW SD 45.7 LAB L100.1900 150-450 K/mm3 Normal PLT 391 LAB L100.2000 6.2-12.0 fl Normal MPV 9.6 Performed By: #### L100.0500 #### [facility] [address] [place], [address] PROTHROMBIN TIME W/INR Collected: 05/08/2018 Status: F Source: [place] 5:45 AM [facility] REPOSITORY TYPE CODE TESTS RESULT OUT OF RANGE REFERENCE UNITS LAB L300.4150 11.7-14.9 SECONDS Normal PROTIME 14.5 LAB L300.4200 Normal INR 1.1 Performed By: #### L300.3900 #### [facility] [address] [facility] [place], [place], [id number] COMPREHENSIVE METABOLIC Collected: 05/08/2018 Status: F Source: [place] PROF[place] 5:45 AM [facility] REPOSITORY TYPE CODE TESTS RESULT OUT OF RANGE REFERENCE UNITS LAB L501.0100 74-106 mg/dL High GLU 158 Result Comment: Fasting Glucose result greater than or equal to 126 mg/dL suggests DIABETES MELLITUS per A.D.A. criteria. Please note revised GLUCOSE reference range effective 2017. LAB L501.1000 7-18 mg/dL Normal BUN 18 LAB L501.1100 0.55-1.02 mg/dL High CREAT,SERUM 1.13 Result Comment: The validity of the calculated GFR AND GFRAA in patients over 70 years has not been determined. Clinical correlation is essential. LAB L501.1110 >60 mL/min Low EST GFR 52 Result Comment: Non- GFR Calc LAB L501.1115 >60 mL/min Normal EST GFR - AA 63 Result Comment: GFR Calc LAB L501.1255 ml/min Normal Estimated CRCL 37.08 LAB L501.1300 10-20 RATIO Normal BUN/CRE 15.9 LAB L501.1500 6.4-8. g/dL Normal 2 T PROT 6.9 LAB L501.1800 3.2-5. g/dL Low 0 ALB 3.0 LAB L501.1950 2.2-4. g/dL Normal 2 GLOB 3.9 LAB L501.2000 0.9-2. RATIO Low 4 A/G 0.8 LAB L501.2200 8.5-10 mg/dL Low .1 CA 8.2 LAB L501.4100 15-37 U/L Normal AST 26 LAB L501.4305 45-117 U/L High ALK P 118 LAB L501.4405 13-56 U/L Normal ALT 32 LAB L501.4600 0.20-1 mg/dL Normal .00 T BILI 0.20 LAB L501.5300 136-14 mmol/L Normal 5 NA 141 LAB L501.5600 3.5-5. mmol/L Normal 1 K 4.0 LAB L501.5900 98-107 mmol/L High CL 109 LAB L501.6100 21.0-3 mmol/L Normal 2.0 CO2 23.0 LAB L501.6200 5-15 Normal GAP 9 Performed By: #### L500.4050, L500.4100 #### [facility] [address] [place], [place], [id number] LIPID PROFILE Collected: 05/08/2018 Status: F Source: [place] [address]:45 AM [facility] REPOSITORY TYPE CODE TESTS RESULT OUT OF RANGE REFERENCE UNITS LAB L501.4900 200 mg/dL Normal CHOL 174 Result Comment: <200 mg/dL Desirable 200-240 mg/dL Borderline >240 mg/dL High Risk LAB L501.5000 mg/dL Normal TRIG 110 Result Comment: The drugs N-Acetylcysteine and Metamizole may falsely depress this assay. Serum Triglycerides Reference Interval Normal <150 mg/dL Borderline high 150 - 199 mg/dL High 200 - 499 mg/dL Very High > or = 500 mg/dL LAB L501.6400 mg/dL Normal HDL 47 Result Comment: The drugs N-Acetylcysteine and Metamizole may falsely depress this assay. Reference Range HDL <40 mg/dL Low HDL Cholesterol HDL >or= 60 mg/dL High HDL Cholesterol LAB L501.6500 0-130 mg/dL Normal LDL 105 LAB L501.6600 5-40 mg/dL Normal VLDL 22 Performed By: #### L500.4050, L500.4100 #### [facility] [address] [place], [place], [address] TROPONIN-I Collected: 05/08/2018 Status: F Source: [place] 5:45 AM [facility] REPOSITORY Order Comment: 'TROP' Serial specimen #1, #2 or #3: 1 TYPE CODE TESTS RESULT OUT OF RANGE REFERENCE UNITS LAB L501.4010 <0.045 ng/mL High 0.113 TROPONIN-I Result Comment: TROPONIN-I EXPECTED VALUES <0.045 Negative 0.045 - 0.590 Consistent with Cardiac Damage > OR = 0.600 Critical Value Not every elevated troponin is indicative of SD. These values should be used with clinical judgement in examining the patient's clinical picture for diagnosis. To establish a diagnosis of SD versus myocardial injury, there must be a demonstrated rise and/or fall in the troponin values, in addition to ischemic symptoms, EKG changes, new regional wall motion abnormality, and/or angiographical evidence. PLEASE NOTE: REFERENCE RANGES EDITED 17 Performed By: #### L501.4010 #### [facility] [address] [place], [place], [address] BNP,B-TYPE NATRIURETIC Collected: 05/08/2018 Status: F Source: [place] 5:45 AM [facility] REPOSITORY Order Comment: Comments: From blood in the lab TYPE CODE TESTS RESULT OUT OF RANGE REFERENCE UNITS LAB L503.6620 0-100 pg/mL High B-TYPE 3127.7 CHRIS PEP Performed By: #### L503.6620 #### [facility] [address] [place], [address] HISTORY AND PHYSICAL Observed: 05/08/2018 Status: F Source: [place] EXAM 3:55 AM [facility] REPOSITORY [facility] Medical Records Department [address] [place] [address] History and Physical 05/08/18 0342 MR#: [id number] Acct: [id number] Name: DAVINA GREEN Rep #: [id number] : 1955 62 From: Joe Haddad MD PCP: Ivy Jimenez III, MD Status: ADM IN Location: [place] [address] Problem List (1) Chest pain Status: Acute Qualifiers: Chest pain type: chest pain due to myocardial ischemia Ischemic chest pain type: unspecified angina pectoris type Qualified Code(s): I25.9 - Chronic ischemic heart disease, unspecified (2) Diabetes mellitus Status: Chronic Qualifiers: (3) Hypertension Status: Chronic Qualifiers: (4) Caries Status: Chronic (5) Tobacco abuse Status: Chronic (6) Carotid arterial disease Status: Chronic (7) Hyperlipidemia Status: Chronic (8) Nicotine dependence Status: Chronic History of Present Illness Date of Admission: 05/08/18 Chief Complaint: chest pain The patient is a 62 year old female with a history of diabetes, COPD presents to the ER with ongoing 8/10 substernal non-radiating chest pain. Onset of pain began 2 days ago and continues and is currently 7/10 in the ER after initial treatment. She is short of breath with this as well. The patient has known lung disease and initial D-Dimer was elevated therefore a CTA chest was done which revealed pulmonary effusions but no infiltrate or PE. The initial Troponin is 0.129 and there are no ST elevations. She is recently status post toe amputations x 2 on left foot and stayed in a custodial for rehab which she found to be stressful. She will be admitted to [facility] and cardiology consult obtained. Past Medical History Past Medical History (Chronic Problems): Chronic Problems (Last Updated 12/20/17 @ 17:32 by Jose Neely DO) Chronic ulcer of buttock (Chronic) Abscess of buttock (Chronic) Diabetes mellitus (Chronic) Hypertension (Chronic) History of CVA (cerebrovascular accident) (Chronic) Caries (Chronic) Tobacco abuse (Chronic) Tobacco abuse counseling (Chronic) Carotid arterial disease (Chronic) Hyperlipidemia (Chronic) Nicotine dependence (Chronic) Medical History: Medical History (Last Updated 12/20/17 @ 17:32 by Jose Neely DO) PVD (peripheral vascular disease) (Acute) I73.9 Carotid arterial disease (Chronic) I77.9 Hyperlipidemia (Chronic) E78.5 Nicotine dependence (Acute) F17.200 Cellulitis and abscess of buttock (Acute) 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 Asthma J45.909 CVA (cerebral vascular accident) I63.9 Chronic back pain M54.9, G89.29 Depression F32.9 Diabetes E11.9 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 Velma Jimenez approximately 7 years ago. She is a Ab0. Smoking Status: Current every day smoker - *Family History Maternal Family History: Family History (Last Updated 11/08/17 @ 13:38 by Melva Ashby) Mother No problems noted. History Items: Heart Disease, - - Patient's father in his 40s from myocardial infarction. Patient's mother in her 40s from a cerebrovascular accident. Review of Systems Constitutional: Denies: Chills, Fever, Weight Change HEENT: Denies: Head Aches, Sinus Congestion, Sinus Drainage Cardiovascular: Reports: Chest Pain. Denies: Palpitations Respiratory: Reports: Shortness of breath at rest. Denies: Cough, Sputum production Gastrointestinal: Denies: Abdominal Pain, Nausea, Vomiting Genitourinary: Denies: Dysuria Musculoskeletal: Denies: Joint Pain, Joint Tenderness Skin: Denies: Rash, Wounds Neurological: Denies: Numbness, Tingling, Focal weakness Psychiatric: Denies: Anxiety, Depression, Homicidal Ideations, Suicidal Ideations Hematologic/ Lymphatic: Denies: Easy Bruising, Easy Bleeding VTE Information - Inpt Only VTE Present on Admission: No VTE Mechan Device Prophylaxis: None VTE Pharm Prophylaxis ordered?: Yes Patient Problems: Active and Suspected Problems (Last Updated 12/20/17 @ 17:32 by Jose Neely DO) Chest pain (Acute) - Physical Exam General: Alert, Oriented x3, Cooperative HEENT: Atraumatic, Normocephalic Neck: Supple Lungs: Clear to auscultation, Normal air movement, No rhonchi, No wheeze, No rales Cardiovascular: Regular rate, Regular Rhythm, Normal S1, Normal S2, No murmurs, Tachycardic Abdomen: Bowel Sounds Present, Soft, Non Tender Extremities: No edema Skin: No rashes Musculoskeletal: No Tenderness to Palpation of Joints or Extremities Neurological: Neuro grossly intact Psych/Mental Status: Normal Affect, Appropriate Vital Signs Temp Pulse Resp BP Pulse Ox 98.5 F 100 20 H 146/79 H 91 05/08/18 01:14 05/08/18 03:17 05/08/18 03:17 05/08/18 03:17 05/08/18 03:17 Oxygen Flow Rate (L/min) 4 Oxygen Delivery Method Nasal Cannula Weight: 153 lb 10.595 oz Body Mass Index (BMI) 29.9 Laboratory Tests Past 24 Hrs Assessment/Plan All Active Problems (Last Updated 12/20/17 @ 17:32 by Jose Neely DO) Abscess of right buttock (Acute) 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 (Acute) Gangrene (Acute) Cellulitis of left foot (Acute) Chest pain (Acute) PVD (peripheral vascular disease) (Acute) Cellulitis and abscess of buttock (Acute) 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 Chest Pain/ NSTEMI- full admission to PCU, consult DR. Good (spoke with on phone). Cycle cardiac marker, Morphine, nitro, oxygen and aspirin per routine. Make NPO pending heart catheterization. 2. Pleural effusions- Lasix 40mg IV x 1 3. Diabates- q hr blood checks while NPO with SSI 4. Tobacco- abuse, cessation encouraged 5. DVT prophylaxis - LMWH pr routine 6. Hypertension, maintain on home medications Code Visit Inpatient E AND M: [id number] Init Hosp L3 05/08/18 0355 <Electronically signed by Joe Haddad MD> Date Joe Haddad MD Cosigner Signature: Date (if applicable) CC: Ivy Jimenez III, MD; Joe Haddad MD Signed EMERGENCY DEPARTMENT Observed: 05/08/2018 Status: F Source: [place] SUMMARY 3:42 AM [facility] REPOSITORY [facility] Medical Records Department [address] [place] [address] Emergency Department Summary 05/08/18 0134 MR#: [id number] Acct: [id number] Name: DAVINA GREEN Rep #: [id number] : 1955 62 From: Radha Hale MD PCP: Ivy Jimenez III, MD Status: REG ER - ER Visit Summary Date of Service: 05/08/18 Chief Complaint: Chest pain, shortness of breath History of Present Illness: The patient is a 62 F presenting with chest pain, shortness of breath. This started 2 days ago. Pain has been intermittent. She has midsternal chest pressure which she states is 8 out of 10. It is associated nausea, diaphoresis, shortness of breath. She states she has been too lightheaded to ambulate. She has history of hypertension, diabetes, hypercholesterolemia, early family history of heart disease, and smoking. She had left small toe amputation 2 months ago, otherwise no other PE/DVT risk factors. Physical Examination: Vitals are stable. Patient is afebrile. Alert no acute distress. HEENT exam is unremarkable. Neck is supple. Lungs are diminished bilaterally. Heart is regular and tachycardic Abdomen is soft nontender nondistended. Extremities are unremarkable. Skin is warm and dry. No focal neurologic deficit. Remainder of exam is unremarkable. Emergency Department Course and Treatment: EKG is sinus tachycardia rate of [address] depression and T wave inversion V5 and V6. Patient was given aspirin, morphine, Zofran. Chest x-ray shows central vascular congestion. Chronic interstitial lung changes. CBC normal except hemoglobin 11.7. Chemistries normal except for BUN of 19, creatinine 1.21, glucose 137. Troponin is indeterminate at 0.129. D-dimer elevated at 0.59. CTA chest was obtained and shows no pulmonary embolus. Bilateral pleural effusions. Diffuse interstitial edema. On reevaluation, patient is chest pain-free. Will discuss with the hospitalist for admission. Disposition: Admission Impression: Chest pain, ACS This note was generated with Gen[employer]per[employer] dictation software. It may contain incorrect words, spelling, and punctuation that were not noted in review of the chart prior to signing ED Disposition - Plan for ED Patient: Chief Complaint: Chest Pain Referrals: Ivy Jimenez III, MD [Primary Care Provider] - What to do if you have Problems For any increased pain, shortness of breath, bleeding, nausea or vomiting, chest pain, or any unexpected problems, contact your Primary Care Provider. Call [facility] ([phone]) or report to the closest Emergency Room. Call 911 if necessary. 05/08/18 0342 <Electronically signed by Radha Hale MD> Date Radha Hale MD Cosigner Signature (If Indicated): Date CC: Ivy Jimenez III, MD CTA CHEST W/WO Observed: 05/08/2018 Status: F Source: [place] CONTRAST 2:03 AM [facility] REPOSITORY [facility] Imaging Services [address] [place] [address] CTA Chest W/WO Contrast MR#: [id number] Acct: [id number] Name: DAVINA GREEN Rep #: [id number] : 1955 F 62 From: Roxanna Alicea MD PCP: Ivy Jimenez III, MD Status: REG ER Study: CTA Chest W/WO Contrast Date of Exam: 05/08/18 Exam# [id number] Ordering Dr: Radha Hale MD STUDY: CTA CHEST REASON FOR EXAM: Female, 62 years old. Short of breath and elevated d-dimer RADIATION DOSAGE (If Supplied By Facility): CTDIvol = ( 8.88 ) mGy, DLP = ( 436.75 ) mGycm TECHNIQUE: The examination was performed with the intravenous administration of 100 ml of Isovue 300 contrast material. Post-processing of the angiographic images was performed, with multiplanar reformation and 3D reconstruction. Individualized dose optimization techniques were used for this CT. COMPARISON: None. FINDINGS: Normal enhancement of the main pulmonary artery and right and left pulmonary arteries. Normal enhancement of the bilateral peripheral pulmonary arteries. There is no demonstrated pulmonary embolism. Normal thoracic aorta and visualized great vessels. There is no demonstrated aortic dissection. Normal heart and pericardium. Normal mediastinum. Normal hilar regions. Normal visualized trachea and bronchi. Diffuse interstitial edema. Lingular atelectasis. Bilateral pleural effusions. Normal chest wall structures. There are degenerative changes of thoracic spine. Right renal atrophy. CT/CTA Chest W/WO Contrast IMPRESSION: No pulmonary embolus. Bilateral pleural effusions. Diffuse interstitial edema. Electronically Signed: Roxanna Alicea MD at 3:21 EST Tel , Service support , CC: Radha Hale MD; Ivy Jimenez III, MD Renewable Energy Technician: Signed CBC W/DIFF, AUTOMATED Collected: 05/08/2018 Status: F Source: [place] 1:35 AM [facility] REPOSITORY TYPE CODE TESTS RESULT OUT OF RANGE REFERENCE UNITS LAB L100.1000 4.4-11.0 K/mm3 Normal WBC 10.6 LAB L100.1200 4.2-5.4 M/mm3 Low RBC 4.18 LAB L100.1300 12.0-15.0 g/dl Low HGB 11.7 LAB L100.1400 37-47 % Low HCT 35.8 LAB L100.1500 81-99 fL Normal MCV 85.6 LAB L100.1600 27.0-32.0 pg Normal MCH 28.0 LAB L100.1700 32-36 g/gl Normal MCHC 32.7 LAB L100.1810 11.6-14.6 % Normal RDW CV 14.5 LAB L100.1820 35.1-43.9 fl High RDW SD 45.5 LAB L100.1900 150-450 K/mm3 Normal PLT 413 LAB L100.2000 6.2-12.0 fl Normal MPV 9.0 LAB L100.2100 47-70 % Normal NEUT% 57.6 LAB L100.2200 19-41 % Normal LY% 27.7 LAB L100.2300 0-10 % Normal MONO% 7.1 LAB L100.2400 0-5 % High EO% 7.0 LAB L100.2500 0-1 % Normal BASO% 0.5 LAB L100.2550 0.0-0.9 % Normal IM GRAN % 0.100 Result Comment: IG% - Immature Granulocytes (promyelocytes, myelocytes and metamyelocytes) > 1% indicates that a LEFT SHIFT is Present. LAB L100.2620 2.0-7.7 X10 3/uL Normal Absolute Neut 6.1 LAB L100.2720 0.83-4.51 X10 3/ul Normal Absolute Lymph 2.93 Performed By: #### L100.0100 #### [facility] [address] [place], [place], [address] D-DIMER QUANTITATIVE Collected: 05/08/2018 Status: F Source: [place] (DVT/PE) 1:35 AM [facility] REPOSITORY TYPE CODE TESTS RESULT OUT OF RANGE REFERENCE UNITS LAB L300.8000 0.27-0.49 FEU/ug/m High alert D-DIMER 0.59 QUANT Result Comment: D-Dimer ELEVATED (>0.49): Additional studies and clinical assessments are indicated to conclude diagnosis of: Deep Vein Thrombosis (DVT) or Pulmonary Embolism (PE) CRITICAL VALUE VERIFIED. CALLED TO [facility] 05/08/18 0157 Nilsa Godwin. RESULTS READ BACK BY SAME . Performed By: #### L300.8000 #### [facility] [address] [place], [address] BASIC METABOLIC Collected: 05/08/2018 Status: F Source: [place] PROFILE (BMP) 1:35 AM [facility] REPOSITORY TYPE CODE TESTS RESULT OUT OF RANGE REFERENCE UNITS LAB L501.0100 74-106 mg/dL High GLU 137 Result Comment: Fasting Glucose result greater than or equal to 126 mg/dL suggests DIABETES MELLITUS per A.D.A. criteria. Please note revised GLUCOSE reference range effective 2017. LAB L501.1000 7-18 mg/dL High BUN 19 LAB L501.1100 0.55-1.02 mg/dL High CREAT,SERUM 1.21 Result Comment: The validity of the calculated GFR AND GFRAA in patients over 70 years has not been determined. Clinical correlation is essential. LAB L501.1110 >60 mL/min Low EST GFR 48 Result Comment: Non- GFR Calc LAB L501.1115 >60 mL/min Low EST GFR - AA 58 Result Comment: GFR Calc LAB L501.1255 ml/min Normal Estimated CRCL 34.63 LAB L501.1300 10-20 RATIO Normal BUN/CRE 15.7 LAB L501.2200 8.5-10 mg/dL Normal .1 CA 8.7 LAB L501.5300 136-14 mmol/L Normal 5 NA 140 LAB L501.5600 3.5-5. mmol/L Normal 1 K 3.7 LAB L501.5900 98-107 mmol/L Normal CL 107 LAB L501.6100 21.0-3 mmol/L Normal 2.0 CO2 27.0 LAB L501.6200 5-15 Normal GAP 6 Performed By: #### L500.2500, L501.4010 #### [facility] [address] [facility] [place], [address] TROPONIN-I Collected: 05/08/2018 Status: F Source: [place] 1:35 AM [facility] REPOSITORY TYPE CODE TESTS RESULT OUT OF RANGE REFERENCE UNITS LAB L501.4010 <0.045 ng/mL High 0.129 TROPONIN-I Result Comment: TROPONIN-I EXPECTED VALUES <0.045 Negative 0.045 - 0.590 Consistent with Cardiac Damage > OR = 0.600 Critical Value Not every elevated troponin is indicative of SD. These values should be used with clinical judgement in examining the patient's clinical picture for diagnosis. To establish a diagnosis of SD versus myocardial injury, there must be a demonstrated rise and/or fall in the troponin values, in addition to ischemic symptoms, EKG changes, new regional wall motion abnormality, and/or angiographical evidence. PLEASE NOTE: REFERENCE RANGES EDITED 17 Performed By: #### L500.2500, L501.4010 #### [facility] [address] [place], [address] CHEST 1 VIEW Observed: 05/08/2018 Status: F Source: [place] (PORTABLE) 1:33 AM [facility] REPOSITORY [facility] Imaging Services [address] [place] [id number] Chest 1 View (Portable) MR#: [id number] Acct: [id number] Name: PETERDAVINA KAHN Ibeth Rep #: [id number] : 1955 F 62 From: Roxanna Alicea MD PCP: Ivy Jimenez III, MD Status: REG ER Study: Chest 1 View (Portable) Date of Exam: 05/08/18 Exam# [id number] Ordering Dr: Radha Hale MD STUDY: X-RAY CHEST REASON FOR EXAM: Female, 62 years old. Chest pain and SOB for 2 days TECHNIQUE: Single frontal view of the chest. COMPARISON: 09/22/2016 FINDINGS: Central vascular congestion. Chronic interstitial lung changes. There is no demonstrated pleural abnormality. Normal size heart. Normal mediastinum and tom. Normal visualized pulmonary arteries. Normal visualized aortic arch and descending thoracic aorta. There are diffuse degenerative changes of the visualized thoracic spine. Normal visualized ribs, clavicles, and shoulders. There is no demonstrated abnormality of the visualized soft tissue structures of the upper abdomen. RAD/Chest 1 View (Portable) IMPRESSION: Central vascular congestion. Chronic interstitial lung changes. Electronically Signed: Roxanna Alicea MD at 2:15 EST Tel , Service support , CC: Radha Hale MD; Ivy Jimenez III, MD Renewable Energy Technician: Signed PROGRESS Observed: 04/11/2018 Status: COMPLETED Source: [place] 4:17 PM [facility] REPOSITORY O ID: [id number] Author: Ivy Jimenez III Service: (none) Author Type: Physician Type: Progress Notes Filed: 04/11/2018 6:48 PM Note Text: SUBJECTIVE: This is a 62 year old female that is here today for 1. onset of pruritic red rash R lat abd. 3 d. ago. She also states that she has had similar rash on the left side of her abdomen and on her back. She has had itchy rash on her shoulders for many years resulting in permanent scars on her upper back. She has been to the emergency room with similar rash and diagnosed with what I suspect was scabies. 2. diabetes mellitus--she stopped taking her injectable diabetic meds in her abd when the rash appeared. Because she suspected a possible drug reaction. She never had urticaria. Home glu 04/10: 135; 04/11: 215 3. Chronic sinus congestion with lots of posterior nasal drainage. This apparently has been an issue that has been occurring for months. We did discuss the use of a neti pot or sinus flushing. PAST MEDICAL HISTORY Diagnosis Date - Anxiety - Benign hypertension 08/07/2015 - Cannabis abuse 02/23/2010 - Carotid artery disorder ([facility]) Right sided - Carotid stenosis 03/11/2010 - Cervical cancer ([facility]) - CVA (cerebral infarction) 11/2009 L hemiparesis and decreased coordination - DDD (degenerative disc disease), lumbar 02/23/2010 - Diabetic nephropathy with proteinuria ([facility]) 03/18/2014 - Diabetic ulcer of toe of left foot associated with type 2 diabetes mellitus, limited to breakdown of skin ([facility]) 10/17/2017 - Environmental allergies - Essential hypertension, benign 06/22/2012 - 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 ([facility]) - Hyperlipidemia - Lichen planus 11/09/2010 - Lumbago-sciatica due to displacement of lumbar intervertebral disc 02/23/2010 - Lumbar radiculopathy 10/17/2017 left sciatica - PVD (peripheral vascular disease) ([facility]) 2017 - Spastic neurogenic bladder 05/14/2015 - Tobacco abuse - Type 2 diabetes mellitus with microalbuminuria, without long-term current use of insulin ([facility]) 05/08/2017 Current Outpatient Prescriptions on File Prior to Visit: diphenhydrAMINE (BENADRYL) 25 mg tablet Take 2 tablets by mouth every 6 hours as needed for Itching/Rash. lisinopril (ZESTRIL,PRINIVIL) 30 mg tablet Take 1 tablet by mouth once daily. ibuprofen (MOTRIN) 600 mg tablet Take 1 tablet by mouth every 6 hours as needed for Pain. mometasone (ELOCON) 0.1 % cream Apply 1 application to affected area once daily. busPIRone (BUSPAR) 10 mg tablet Take 1 tablet by mouth three times daily. atorvastatin (LIPITOR) 40 mg tablet Take 1 tablet by mouth daily at bedtime. insulin glargine (BASAGLAR KWIKPEN U-100 INSULIN) 100 unit/mL (3 mL) inpn Inject 18 Units subcutaneously daily at bedtime. insulin lispro (ADMELOG SOLOSTAR U-100 INSULIN) 100 unit/mL inpn Inject 6 Units subcutaneously three times daily before meals. Insulin [place], Disposable, (PEN NEEDLES) 31 gauge x 1/4 ndle Use one needle with each insulin dose. 4/day ergocalciferol, vitamin D2, (DRISDOL) 50,000 unit capsule Take 1 capsule by mouth once each week. COMPOUNDED PRESCRIPTION Grab Bar Dx: amLODIPine (NORVASC) 10 mg tablet Take 1 tablet by mouth once daily. blood sugar diagnostic (FREESTYLE LITE STRIPS) test strip Test blood sugar(s) 4 times daily. Dx: Type 2 DM - Uncontrolled E11.65 Insulin: Yes lancets (FREESTYLE LANCETS) 28 gauge misc Test blood sugar(s) 4 times daily. Dx: Type 2 DM - Uncontrolled E11.65 Insulin: Yes SUMAtriptan (IMITREX) 50 mg tablet 50mg by mouth as needed for migraine headache; may repeat every 2 hrs as needed for migraine(max 4/day and 9/mo) acetaminophen (TYLENOL ARTHRITIS PAIN) 650 mg CR tablet Take 2 tablets by mouth twice daily as needed for Pain. No current facility-administered medications on file prior to visit. FAMILY HISTORY Problem Relation Age of Onset - Stroke Mother - Coronary Artery Disease Father - Diabetes Maternal Grandmother Social History Substance Use Topics - Smoking status: Current Some Day Smoker Packs/day: 1.00 Types: Cigarettes Last attempt to quit: 12/19/2017 - Smokeless tobacco: Never Used Comment: quite but has resumed 2 cigs a day - Alcohol use No BP 143/88 Pulse 100 Resp 18 Wt 61.7 kg (136 lb) BMI 26.56 kg/m? . OBJECTIVE: APPEARANCE Well appearing, alert, in no acute distress, well-hydrated, well nourished. and unkempt SKIN weak, healed scars on the upper back from previous repetitive excoriations. 2 mm erythematous macules with excoriated centers scattered on the right mid abdomen. Similar lesions on the left midabdomen and on the back. No vesicles. ASSESSMENT: diabetes mellitus II--not at goal Upper respiratory infection hyperlipidemia hypertension--near goal acute neurodermatitis--doubt shingles PLAN: healthy weight losing diet and regular exercise eat less sugar, bread, potato, pasta, rice, corn, corn syrup, saturated fats resume diabetic meds use nometasone cream to control itching recommend sinus flushing with neti pot or squeeze bottle as needed same other medications SHEA Addison MD, III MD CNOV Observed: 04/11/2018 Status: COMPLETED Source: [place] 3:40 PM [facility] REPOSITORY Office Visit (FAMPWS) DAVINA GREEN ([id number]) 1955 F Date Time Provider Department 04/11/18 3:40 PM IVY JIMENEZ IIIWS During your visit today, we recorded the following information about you: Pulse Respiration Blood pressure Weight 100/minute 18/minute 143/88 61.7 kg Ivy Jimenez III MD 04/11/2018 6:48 PM Signed SUBJECTIVE: This is a 62 year old female that is here today for 1. onset of pruritic red rash R lat abd. 3 d. ago. She also states that she has had similar rash on the left side of her abdomen and on her back. She has had itchy rash on her shoulders for many years resulting in permanent scars on her upper back. She has been to the emergency room with similar rash and diagnosed with what I suspect was scabies. 2. diabetes mellitus--she stopped taking her injectable diabetic meds in her abd when the rash appeared. Because she suspected a possible drug reaction. She never had urticaria. Home glu 04/10: 135; 04/11: 215 3. Chronic sinus congestion with lots of posterior nasal drainage. This apparently has been an issue that has been occurring for months. We did discuss the use of a neti pot or sinus flushing. PAST MEDICAL HISTORY Diagnosis Date - Anxiety - Benign hypertension 08/07/2015 - Cannabis abuse 02/23/2010 - Carotid artery disorder (HCC) Right sided - Carotid stenosis 03/11/2010 - Cervical cancer (HCC) - CVA (cerebral infarction) 11/2009 L hemiparesis and decreased coordination - DDD (degenerative disc disease), lumbar 02/23/2010 - Diabetic nephropathy with proteinuria ([facility]) 03/18/2014 - Diabetic ulcer of toe of left foot associated with type 2 diabetes mellitus, limited to breakdown of skin ([facility]) 10/17/2017 - Environmental allergies - Essential hypertension, benign 06/22/2012 - 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 ([facility]) - Hyperlipidemia - Lichen planus 11/09/2010 - Lumbago-sciatica due to displacement of lumbar intervertebral disc 02/23/2010 - Lumbar radiculopathy 10/17/2017 left sciatica - PVD (peripheral vascular disease) ([facility]) 2018 - Spastic neurogenic bladder 05/14/2015 - Tobacco abuse - Type 2 diabetes mellitus with microalbuminuria, without long-term current use of insulin ([facility]) 05/08/2017 Current Outpatient Prescriptions on File Prior to Visit: diphenhydrAMINE (BENADRYL) 25 mg tablet Take 2 tablets by mouth every 6 hours as needed for Itching/Rash. lisinopril (ZESTRIL,PRINIVIL) 30 mg tablet Take 1 tablet by mouth once daily. ibuprofen (MOTRIN) 600 mg tablet Take 1 tablet by mouth every 6 hours as needed for Pain. mometasone (ELOCON) 0.1 % cream Apply 1 application to affected area once daily. busPIRone (BUSPAR) 10 mg tablet Take 1 tablet by mouth three times daily. atorvastatin (LIPITOR) 40 mg tablet Take 1 tablet by mouth daily at bedtime. insulin glargine (BASAGLAR KWIKPEN U-100 INSULIN) 100 unit/mL (3 mL) inpn Inject 18 Units subcutaneously daily at bedtime. insulin lispro (ADMELOG SOLOSTAR U-100 INSULIN) 100 unit/mL inpn Inject 6 Units subcutaneously three times daily before meals. Insulin [place], Disposable, (PEN NEEDLES) 31 gauge x 1/4 ndle Use one needle with each insulin dose. 4/day ergocalciferol, vitamin D2, (DRISDOL) 50,000 unit capsule Take 1 capsule by mouth once each week. COMPOUNDED PRESCRIPTION Grab Bar Dx: amLODIPine (NORVASC) 10 mg tablet Take 1 tablet by mouth once daily. blood sugar diagnostic (FREESTYLE LITE STRIPS) test strip Test blood sugar(s) 4 times daily. Dx: Type 2 DM - Uncontrolled E11.65 Insulin: Yes lancets (FREESTYLE LANCETS) 28 gauge misc Test blood sugar(s) 4 times daily. Dx: Type 2 DM - Uncontrolled E11.65 Insulin: Yes SUMAtriptan (IMITREX) 50 mg tablet 50mg by mouth as needed for migraine headache; may repeat every 2 hrs as needed for migraine(max 4/day and 9/mo) acetaminophen (TYLENOL ARTHRITIS PAIN) 650 mg CR tablet Take 2 tablets by mouth twice daily as needed for Pain. No current facility-administered medications on file prior to visit. FAMILY HISTORY Problem Relation Age of Onset - Stroke Mother - Coronary Artery Disease Father - Diabetes Maternal Grandmother Social History Substance Use Topics - Smoking status: Current Some Day Smoker Packs/day: 1.00 Types: Cigarettes Last attempt to quit: 12/19/2017 - Smokeless tobacco: Never Used Comment: quite but has resumed 2 cigs a day - Alcohol use No BP 143/88 Pulse 100 Resp 18 Wt 61.7 kg (136 lb) BMI 26.56 kg/m? . OBJECTIVE: APPEARANCE Well appearing, alert, in no acute distress, well- hydrated, well nourished. and unkempt SKIN weak, healed scars on the upper back from previous repetitive excoriations. 2 mm erythematous macules with excoriated centers scattered on the right mid abdomen. Similar lesions on the left midabdomen and on the back. No vesicles. ASSESSMENT: diabetes mellitus II--not at goal Upper respiratory infection hyperlipidemia hypertension--near goal acute neurodermatitis--doubt shingles PLAN: healthy weight losing diet and regular exercise eat less sugar, bread, potato, pasta, rice, corn, corn syrup, saturated fats resume diabetic meds use nometasone cream to control itching recommend sinus flushing with neti pot or squeeze bottle as needed same other medications SHEA Addison MD, III MD Frank A Cebul, III MD 04/11/2018 4:30 PM Signed PLAN: healthy weight losing diet and regular exercise eat less sugar, bread, potato, pasta, rice, corn, corn syrup, saturated fats resume diabetic meds use nometasone cream to control itching recommend sinus flushing with neti pot or squeeze bottle as needed same other medications Ivy Jimenez III MD Referring Provider: SELF [[id number]] Allergies As of Date: 04/11/2018 Noted Allergy Reaction PENICILLINS 01/28/2010 4 - Hives 7 - Swelling Comments: Updated 12/22/[address] R[address] Hidalgo PRAVACHOL (PRAVASTATIN SODIUM) 03/04/2010 5 - Intolerance Comments: Fatigue, loss of appetite. PROZAC (FLUOXETINE HCL) 08/07/2015 1 - Mental Status Change Comments: sleepiness Date Reviewed: 04/11/2018 Reviewed by: Jarocho ([facility]) BENTLEY Arellano - Fully Assessed Reason for Visit: Rash on back AND abdomen [Other] Headache [52] Primary Visit Diagnosis:Neurodermatitis [L28.0] Other Visit Diagnoses:Essential hypertension, benign [I10] Hyperlipidemia with target LDL less than 100 [E78.5] Type 2 diabetes mellitus with microalbuminuria, without long-term current use of insulin (HCC) [E11.29, R80.9] CKD (chronic kidney disease), stage III (HCC) [N18.3] Chronic sinusitis, unspecified location [J32.9] Prescriptions as of 04/11/2018 Sig: DIPHENHYDRAMINE 25 MG TABLET Take 2 tablets by mouth every* LISINOPRIL 30 MG TABLET Take 1 tablet by mouth once d* IBUPROFEN 600 MG TABLET Take 1 tablet by mouth every * MOMETASONE 0.1 % TOPICAL CREAM Apply 1 application to affect* BUSPIRONE 10 MG TABLET Take 1 tablet by mouth three * ATORVASTATIN 40 MG TABLET Take 1 tablet by mouth daily * INSULIN GLARGINE (U-100) 100 * Inject 18 Units subcutaneousl* INSULIN LISPRO (U-100) 100 UN* Inject 6 Units subcutaneously* PEN NEEDLE, DIABETIC 31 GAUGE* Use one needle with each insu* ERGOCALCIFEROL (VITAMIN D2) 5* Take 1 capsule by mouth once * COMPOUNDED PRESCRIPTION Grab Bar Dx: AMLODIPINE 10 MG TABLET Take 1 tablet by mouth once d* BLOOD SUGAR DIAGNOSTIC STRIPS Test blood sugar(s) 4 times d* LANCETS 28 GAUGE Test blood sugar(s) 4 times d* SUMATRIPTAN 50 MG TABLET 50mg by mouth as needed for m* ACETAMINOPHEN ER 650 MG TABLE* Take 2 tablets by mouth twice* Problem List As Of Date 04/11/2018 Noted Resolved Stroke/Cerebrovascular Accident [I63.9] INVALID FOR* Lumbago-Sciatica due to Displacement of Lumbar *INVALID FOR* DDD (Degenerative Disc Disease), Lumbar [M51.36]INVALID FOR* Cannabis Abuse [F12.10] INVALID FOR* Lichen planus [L43.9] INVALID FOR* More... Lumbar facet arthropathy [M47.816] INVALID FOR* Essential hypertension, benign [I10] INVALID FOR* Priority: D More... Nasal obstruction [J34.89] INVALID FOR* Myofascial pain [M79.18] INVALID FOR* Diabetic nephropathy with proteinuria (HCC) [E1*INVALID FOR* Priority: C Hyperlipidemia with target LDL less than 100 [E*INVALID FOR* Priority: F More... History of cerebrovascular accident (CVA) with *INVALID FOR* More... 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 Diabetic ulcer of toe of left foot associated w*INVALID FOR* Priority: A More... Lumbar radiculopathy [M54.16] INVALID FOR* More... Gangrene (HCC) [I96] INVALID FOR*12/25/2017 Priority: E More... Wound abscess [T81.49XA] INVALID FOR* More... Depression [F32.9] INVALID FOR* Priority: H More... Diabetes (HCC) [E11.9] INVALID FOR* Priority: B More... Tobacco abuse [Z72.0] INVALID FOR* Priority: G More... Abscess [L02.91] INVALID FOR*12/25/2017 More... Foot abscess, left [L02.612] INVALID FOR* Penicillin allergy [Z88.0] INVALID FOR* C. difficile diarrhea [A04.72] INVALID FOR*01/07/2018 More... Hypokalemia [E87.6] INVALID FOR*12/31/2017 More... Malnutrition of moderate degree (HCC) [E44.0] INVALID FOR*01/08/2018 More... Normocytic anemia [D64.9] INVALID FOR* More... Electrolyte imbalance [E87.8] INVALID FOR*01/08/2018 More... CKD (chronic kidney disease), stage III (HCC) [*INVALID FOR* Other instructions from your clinician: PLAN: healthy weight losing diet and regular exercise eat less sugar, bread, potato, pasta, rice, corn, corn syrup, saturated fats resume diabetic meds use nometasone cream to control itching recommend sinus flushing with neti pot or squeeze bottle as needed same other medications Ivy Jimenez III MD Medications Discontinued During This Encounter Betamethasone Dipropionate 0.05 % lo* 01/09/2018 04/11/2018 Class: Med Update Route: TOPICAL Sig: Apply 1 application to affected area twice daily. Patient not taking: Reported on 04/11/2018 Disc: Course of therapy completed buPROPion XL (WELLBUTRIN XL) 150 mg * 7 ta* 0 01/23/2018 04/11/2018 Sig: Take one tablet every other day for one week, then every 3 days until gone, then stop. Patient not taking: Reported on 02/23/2018 Disc: Course of therapy completed omeprazole (PRILOSEC) 20 mg capsule 30 c* 11 10/17/2017 04/11/2018 Route: ORAL Sig: Take 1 capsule by mouth daily before breakfast. 1/2 hr before meal. Patient not taking: Reported on 02/08/2018 Disc: Course of therapy completed Simethicone (GAS RELIEF) 125 mg chew* 120 * 11 10/17/2017 04/11/2018 Route: ORAL Sig: Take 1 tablet by mouth every 6 hours as needed. Patient not taking: Reported on 02/08/2018 Disc: Course of therapy completed sertraline (ZOLOFT) 50 mg tablet 90 t* 1 01/23/2018 04/11/2018 Route: ORAL Sig: Take 1 tablet by mouth once daily. Patient not taking: Reported on 02/08/2018 Disc: Discontinued by Patient nncgfqie-shpaphhtbf-inzlvxkbj (NEOSP* 1 Tu* 1 02/16/2018 04/11/2018 Route: TOPICAL Sig: Apply 1 application to affected area once daily. Patient not taking: Reported on 04/11/2018 Disc: Discontinued by Patient Encounter Status:Closed by IVY JIMENEZ III, MD on 04/11/18 PROGRESS Observed: 02/23/2018 Status: COMPLETED Source: [place] 2:[address] [facility] [place] REPOSITORY HNO ID: [id number] Author: Allie Pompa Service: (none) Author Type: Physician Type: Progress Notes Filed: 02/23/2018 2:44 PM Note Text: Follow up podiatric office visit for: Chief Complaint: This 62 year old who presents for follow up:left 5th toe amputation/wound dehiscence. Patient continues to complain of pain. She feels the tylenol #3 is helping. She feels that her wound is completely healed. She would like referral to pain management. PAIN EVALUATION 02/23/2018 Pain Score: 4 Pain Location: Foot-Left Description: Stabbing/Not Incision Duration Amount of Time: 3 Duration Units: Months Frequency: Intermittent Intervention: Medication Comments: where toe removed Hemoglobin A1C Date Value Ref Range Status 11/04/2016 12.3 (H) 4.3 - 5.6 % Final Comment: [place] [employer] guidelines indicate that patients with HgbA1c in the range 5.7-6.4% are at increased risk for development of diabetes, and intervention by lifestyle modification may be beneficial. HgbA1c greater or equal to 6.5% is considered diagnostic of diabetes. Hemoglobin A1C (POCT) Date Value Ref Range Status 01/23/2018 7.4 (A) 4.2 - 5.6 % Final Comment: Point of care (POC) Hemoglobin A1c (HGBA1C) testing is intended to assess glucose control and provide a management tool for patients known to have diabetes and their healthcare providers. Target HGBA1C levels may depend on specific clinical circumstances. POC HGBA1C is not intended for use as a diagnostic or screening test; laboratory-based testing should be used for diagnostic purposes. The following information is supplemental and may not be applicable to specific diabetes management situations: The POC device librarian special collections provides a normal range of 4.2% to 6.5% for the HGBA1C POC test. However, the [place] [employer] guidelines indicate that patients with HGBA1C in the range of 5.7% to 6.4% are at increased risk for development of diabetes and that intervention by lifestyle modification may be beneficial. A HGBA1C level greater than or equal to 6.5% is considered diagnostic of diabetes, pending confirmatory testing. Use of HGBA1C testing to evaluate glucose control may not be appropriate for patients with hemoglobin variants or other conditions (e.g. anemia) that alter red blood cell lifespan. PCP: Ivy Jimenez III MD PAST MEDICAL HISTORY Diagnosis Date - Anxiety - Benign hypertension 08/07/2015 - Cannabis abuse 02/23/2010 - Carotid artery disorder ([facility]) Right sided - Carotid stenosis 03/11/2010 - Cervical cancer ([facility]) - CVA (cerebral infarction) 11/2009 L hemiparesis and decreased coordination - DDD (degenerative disc disease), lumbar 02/23/2010 - Diabetic nephropathy with proteinuria ([facility]) 03/18/2014 - Diabetic ulcer of toe of left foot associated with type 2 diabetes mellitus, limited to breakdown of skin ([facility]) 10/17/2017 - Environmental allergies - Essential hypertension, benign 06/22/2012 - 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 ([facility]) - Hyperlipidemia - Lichen planus 11/09/2010 - Lumbago-sciatica due to displacement of lumbar intervertebral disc 02/23/2010 - Lumbar radiculopathy 10/17/2017 left sciatica - PVD (peripheral vascular disease) ([facility]) 2017 - Spastic neurogenic bladder 05/14/2015 - Tobacco abuse - Type 2 diabetes mellitus with microalbuminuria, without long-term current use of insulin ([facility]) 05/08/2017 Current Outpatient Prescriptions: acetaminophen-codeine (TYLENOL-CODEINE #3) 300-30 mg per tablet Take 1 tablet by mouth every 6 hours as needed for up to 7 days. xylamgga-knidudtltl-nknatomgd (NEOSPORIN, KBY-CZF-OVWVR,) 3.5mg-400 unit- 5,000 unit/gram oint Apply 1 application to affected area once daily. busPIRone (BUSPAR) 10 mg tablet Take 1 tablet by mouth three times daily. insulin glargine (BASAGLAR KWIKPEN U-100 INSULIN) 100 unit/mL (3 mL) inpn Inject 18 Units subcutaneously daily at bedtime. insulin lispro (ADMELOG SOLOSTAR U-100 INSULIN) 100 unit/mL inpn Inject 6 Units subcutaneously three times daily before meals. Insulin [place], Disposable, (PEN NEEDLES) 31 gauge x 1 ndle Use one needle with each insulin dose. 4/day ergocalciferol, vitamin D2, (DRISDOL) 50,000 unit capsule Take 1 capsule by mouth once each week. COMPOUNDED PRESCRIPTION Grab Bar Dx: amLODIPine (NORVASC) 10 mg tablet Take 1 tablet by mouth once daily. Betamethasone Dipropionate 0.05 % lotion Apply 1 application to affected area twice daily. diphenhydrAMINE (BENADRYL) 25 mg tablet Take 50 mg by mouth every 6 hours as needed for Itching/Rash. blood sugar diagnostic (FREESTYLE LITE STRIPS) test strip Test blood sugar(s) 4 times daily. Dx: Type 2 DM - Uncontrolled E11.65 Insulin: Yes lancets (FREESTYLE LANCETS) 28 gauge misc Test blood sugar(s) 4 times daily. Dx: Type 2 DM - Uncontrolled E11.65 Insulin: Yes SUMAtriptan (IMITREX) 50 mg tablet 50mg by mouth as needed for migraine headache; may repeat every 2 hrs as needed for migraine(max 4/day and 9/mo) acetaminophen (TYLENOL ARTHRITIS PAIN) 650 mg CR tablet Take 2 tablets by mouth twice daily as needed for Pain. atorvastatin (LIPITOR) 40 mg tablet Take 1 tablet by mouth daily at bedtime. lisinopril (ZESTRIL,PRINIVIL) 30 mg tablet Take 1 tablet by mouth once daily. sertraline (ZOLOFT) 50 mg tablet Take 1 tablet by mouth once daily. (Patient not taking: Reported on 02/08/2018 ) buPROPion XL (WELLBUTRIN XL) 150 mg 24 hr tablet Take one tablet every other day for one week, then every 3 days until gone, then stop. (Patient not taking: Reported on 02/23/2018 ) Simethicone (GAS RELIEF) 125 mg chewable tablet Take 1 tablet by mouth every 6 hours as needed. (Patient not taking: Reported on 02/08/2018 ) omeprazole (PRILOSEC) 20 mg capsule Take 1 capsule by mouth daily before breakfast. 1/2 hr before meal. (Patient not taking: Reported on 02/08/2018 ) No current facility-administered medications for this visit. ALLERGIES Allergen Reactions - Penicillins Hives, Swelling Updated 12/22/[address] Chaparrita Hidalgo - Pravachol [Pravasta* Intolerance Fatigue, loss of appetite. - Prozac [Fluoxetine * Mental Status Change sleepiness PAST SURGICAL HISTORY Procedure Laterality Date - AMPUTATION METATARSAL+TOE,SINGLE Left 12/11/2017 partial 5th toe - COLONOSCOP W/ OR W/O BRSH SPEC 04/11/2016 Colonoscopy - EGD W/O OR W/BRUSH/WASH 04/11/2016 EGD - IR VASCULAR ACCESS TEAM PICC INSERTION RADIO 12/26/2017 - LUMBAR OR CAUDAL EPIDURAL STEROID INJECTION 02/21/2011 - PAST SURGICAL HISTORY OF Exploratory surgery for cervical ca REVIEW OF SYSTEMS: CONSTITUTIONAL: No fevers, chills, nightsweats, unintended weight loss HEENT: Denies frequent or severe heaches, nasal congestion/sinus symptoms, problematic allergy problems. EYES: No diplopia or blurry vision. CARDIOVASCULAR: No chest pain, dyspnea, palpitations, orthopnea, PND, ankle edema. PULM: No dyspnea, unexplained cough. GI: No dysphagia/odynophagia, problematic reflux, constipation, diarrhea, changes in stool habits, hematochezia, melena. : No new urinary complaints, including dysuria, gross hematuria or pyuria. NEURO: No new balance problems, peripheral weakness/paresthesias or numbness of concern. MUSC-SKEL: pain in left foot. PSY: No concerns regarding depression, anxiety or panic. INTEGUMENTARY: No new skin changes (rash, new or changing mole, new growth) Physical Exam: Constitutional: Pt is a well developed 62 year old female who is alert, oriented, cooperative and in no apparent distress. OBJECTIVE: NVSI unchanged from previous visit. Dermatological: Surgical incision and prior wound dehiscence is now fully healed to left foot. There are no sores to left foot or ankle There is stable, noninfected eschar along medial aspect of right leg Musculoskeletal/Orthopaedic: Patient has pain to palpation of left 5th metatarsal/amputation site No calf pain noted xrays of left foot reviewed and reveal stable post-op changes. ASSESSMENT: (T81.30XA) Wound dehiscence (primary encounter diagnosis) (E11.40) Type 2 diabetes mellitus with diabetic neuropathy, unspecified whether keno terminal operator insulin use (HCC) (M79.672) Pain in left foot PLAN: 1. History and physical examination completed today. 2. Patient was examined and informed of current findings. She is s/p amputation of left 5th toe complicated by post-op abscess. Her incision/wound dehiscence is fully healed. At this time, she is able to resume normal shoe gears. Stressed use of diabetic shoes. 3. She has complaint of pain of left foot s/p amputation. Recommend pain management referral. No plan on reordering narcotic at this time. 4. She is recommended to apply lotion to her feet daily. 5. F/u in 2 weeks and then every 3 months Allie Pompa DPM PROGRESS Observed: 02/23/2018 Status: COMPLETED Source: [place] 1:38 PM [facility] REPOSITORY HNO ID: [id number] Author: Jazmine Bateman Ma Service: (none) Author Type: (none) Type: Progress Notes Filed: 02/23/2018 2:44 PM Note Text: AMB ROOMING INTAKE FLOWSHEET DATA Risk Screening Do you have concerns about personal safety or safety in the home?: No Pain Pain Score: 4/10 Pain Location: Foot-Left Description: Stabbing/Not Incision Duration Amount of Time: 3 Duration Units: Months Frequency: Intermittent Intervention: Medication Comments: where toe removed 1 week follow up for wound dehiscence on left 5th metatarsal. Using neosporin on wound. Tylenol 3 helps with pain. Patient is diabetic but does not remember glucose reading. Hemoglobin A1C (%) Date Value 11/04/2016 12.3 Hemoglobin A1C (POCT) (%) Date Value 01/23/2018 7.4 CNOV Observed: 02/23/2018 Status: COMPLETED Source: [place] 1:25 PM [facility] REPOSITORY Office Visit (PODIWS) DAVINA GREEN ([id number]) 1955 F Date Time Provider Department 02/23/18 1:25 PM ALLIE POMPA PODIWS During your visit today, we recorded the following information about you: Jazmine Bateman Ma 02/23/2018 2:44 PM Signed AMB ROOMING INTAKE FLOWSHEET DATA Risk Screening Do you have concerns about personal safety or safety in the home?: No Pain Pain Score: 4/10 Pain Location: Foot-Left Description: Stabbing/Not Incision Duration Amount of Time: 3 Duration Units: Months Frequency: Intermittent Intervention: Medication Comments: where toe removed 1 week follow up for wound dehiscence on left 5th metatarsal. Using neosporin on wound. Tylenol 3 helps with pain. Patient is diabetic but does not remember glucose reading. Hemoglobin A1C (%) Date Value 11/04/2016 12.3 Hemoglobin A1C (POCT) (%) Date Value 01/23/2018 7.4 Allie Pompa DPM 02/23/2018 2:44 PM Signed Follow up podiatric office visit for: Chief Complaint: This 62 year old who presents for follow up:left 5th toe amputation/wound dehiscence. Patient continues to complain of pain. She feels the tylenol #3 is helping. She feels that her wound is completely healed. She would like referral to pain management. PAIN EVALUATION 02/23/2018 Pain Score: 4 Pain Location: Foot-Left Description: Stabbing/Not Incision Duration Amount of Time: 3 Duration Units: Months Frequency: Intermittent Intervention: Medication Comments: where toe removed Hemoglobin A1C Date Value Ref Range Status 11/04/2016 12.3 (H) 4.3 - 5.6 % Final Comment: [place] [employer] guidelines indicate that patients with HgbA1c in the range 5.7-6.4% are at increased risk for development of diabetes, and intervention by lifestyle modification may be beneficial. HgbA1c greater or equal to 6.5% is considered diagnostic of diabetes. Hemoglobin A1C (POCT) Date Value Ref Range Status 01/23/2018 7.4 (A) 4.2 - 5.6 % Final Comment: Point of care (POC) Hemoglobin A1c (HGBA1C) testing is intended to assess glucose control and provide a management tool for patients known to have diabetes and their healthcare providers. Target HGBA1C levels may depend on specific clinical circumstances. POC HGBA1C is not intended for use as a diagnostic or screening test; laboratory-based testing should be used for diagnostic purposes. The following information is supplemental and may not be applicable to specific diabetes management situations: The POC device librarian special collections provides a normal range of 4.2% to 6.5% for the HGBA1C POC test. However, the [place] [employer] guidelines indicate that patients with HGBA1C in the range of 5.7% to 6.4% are at increased risk for development of diabetes and that intervention by lifestyle modification may be beneficial. A HGBA1C level greater than or equal to 6.5% is considered diagnostic of diabetes, pending confirmatory testing. Use of HGBA1C testing to evaluate glucose control may not be appropriate for patients with hemoglobin variants or other conditions (e.g. anemia) that alter red blood cell lifespan. PCP: Ivy Jimenez III MD PAST MEDICAL HISTORY Diagnosis Date - Anxiety - Benign hypertension 08/07/2015 - Cannabis abuse 02/23/2010 - Carotid artery disorder (HCC) Right sided - Carotid stenosis 03/11/2010 - Cervical cancer ([facility]) - CVA (cerebral infarction) 11/2009 L hemiparesis and decreased coordination - DDD (degenerative disc disease), lumbar 02/23/2010 - Diabetic nephropathy with proteinuria ([facility]) 03/18/2014 - Diabetic ulcer of toe of left foot associated with type 2 diabetes mellitus, limited to breakdown of skin ([facility]) 10/17/2017 - Environmental allergies - Essential hypertension, benign 06/22/2012 - 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 ([facility]) - Hyperlipidemia - Lichen planus 11/09/2010 - Lumbago-sciatica due to displacement of lumbar intervertebral disc 02/23/2010 - Lumbar radiculopathy 10/17/2017 left sciatica - PVD (peripheral vascular disease) ([facility]) 2017 - Spastic neurogenic bladder 05/14/2015 - Tobacco abuse - Type 2 diabetes mellitus with microalbuminuria, without long-term current use of insulin ([facility]) 05/08/2017 Current Outpatient Prescriptions: acetaminophen-codeine (TYLENOL-CODEINE #3) 300-30 mg per tablet Take 1 tablet by mouth every 6 hours as needed for up to 7 days. gggehmhn-upumsuzjei-ysihyavfc (NEOSPORIN, XQI-HGQ-AEXPD,) 3.5mg-400 unit- 5,000 unit/gram oint Apply 1 application to affected area once daily. busPIRone (BUSPAR) 10 mg tablet Take 1 tablet by mouth three times daily. insulin glargine (BASAGLAR KWIKPEN U-100 INSULIN) 100 unit/mL (3 mL) inpn Inject 18 Units subcutaneously daily at bedtime. insulin lispro (ADMELOG SOLOSTAR U-100 INSULIN) 100 unit/mL inpn Inject 6 Units subcutaneously three times daily before meals. Insulin [place], Disposable, (PEN NEEDLES) 31 gauge x 1/4 ndle Use one needle with each insulin dose. 4/day ergocalciferol, vitamin D2, (DRISDOL) 50,000 unit capsule Take 1 capsule by mouth once each week. COMPOUNDED PRESCRIPTION Grab Bar Dx: amLODIPine (NORVASC) 10 mg tablet Take 1 tablet by mouth once daily. Betamethasone Dipropionate 0.05 % lotion Apply 1 application to affected area twice daily. diphenhydrAMINE (BENADRYL) 25 mg tablet Take 50 mg by mouth every 6 hours as needed for Itching/Rash. blood sugar diagnostic (FREESTYLE LITE STRIPS) test strip Test blood sugar(s) 4 times daily. Dx: Type 2 DM - Uncontrolled E11.65 Insulin: Yes lancets (FREESTYLE LANCETS) 28 gauge misc Test blood sugar(s) 4 times daily. Dx: Type 2 DM - Uncontrolled E11.65 Insulin: Yes SUMAtriptan (IMITREX) 50 mg tablet 50mg by mouth as needed for migraine headache; may repeat every 2 hrs as needed for migraine(max 4/day and 9/mo) acetaminophen (TYLENOL ARTHRITIS PAIN) 650 mg CR tablet Take 2 tablets by mouth twice daily as needed for Pain. atorvastatin (LIPITOR) 40 mg tablet Take 1 tablet by mouth daily at bedtime. lisinopril (ZESTRIL,PRINIVIL) 30 mg tablet Take 1 tablet by mouth once daily. sertraline (ZOLOFT) 50 mg tablet Take 1 tablet by mouth once daily. (Patient not taking: Reported on 02/08/2018 ) buPROPion XL (WELLBUTRIN XL) 150 mg 24 hr tablet Take one tablet every other day for one week, then every 3 days until gone, then stop. (Patient not taking: Reported on 02/23/2018 ) Simethicone (GAS RELIEF) 125 mg chewable tablet Take 1 tablet by mouth every 6 hours as needed. (Patient not taking: Reported on 02/08/2018 ) omeprazole (PRILOSEC) 20 mg capsule Take 1 capsule by mouth daily before breakfast. 1/2 hr before meal. (Patient not taking: Reported on 02/08/2018 ) No current facility-administered medications for this visit. ALLERGIES Allergen Reactions - Penicillins Hives, Swelling Updated 12/22/[address] Chaparrita Hidalgo - Pravachol [Pravasta* Intolerance Fatigue, loss of appetite. - Prozac [Fluoxetine * Mental Status Change sleepiness PAST SURGICAL HISTORY Procedure Laterality Date - AMPUTATION METATARSAL+TOE,SINGLE Left 12/11/2017 partial 5th toe - COLONOSCOP W/ OR W/O BRSH SPEC 04/11/2016 Colonoscopy - EGD W/O OR W/BRUSH/WASH 04/11/2016 EGD - IR VASCULAR ACCESS TEAM PICC INSERTION RADIO 12/26/2017 - LUMBAR OR CAUDAL EPIDURAL STEROID INJECTION 02/21/2011 - PAST SURGICAL HISTORY OF Exploratory surgery for cervical ca REVIEW OF SYSTEMS: CONSTITUTIONAL: No fevers, chills, nightsweats, unintended weight loss HEENT: Denies frequent or severe heaches, nasal congestion/sinus symptoms, problematic allergy problems. EYES: No diplopia or blurry vision. CARDIOVASCULAR: No chest pain, dyspnea, palpitations, orthopnea, PND, ankle edema. PULM: No dyspnea, unexplained cough. GI: No dysphagia/odynophagia, problematic reflux, constipation, diarrhea, changes in stool habits, hematochezia, melena. : No new urinary complaints, including dysuria, gross hematuria or pyuria. NEURO: No new balance problems, peripheral weakness/paresthesias or numbness of concern. MUSC-SKEL: pain in left foot. PSY: No concerns regarding depression, anxiety or panic. INTEGUMENTARY: No new skin changes (rash, new or changing mole, new growth) Physical Exam: Constitutional: Pt is a well developed 62 year old female who is alert, oriented, cooperative and in no apparent distress. OBJECTIVE: NVSI unchanged from previous visit. Dermatological: Surgical incision and prior wound dehiscence is now fully healed to left foot. There are no sores to left foot or ankle There is stable, noninfected eschar along medial aspect of right leg Musculoskeletal/Orthopaedic: Patient has pain to palpation of left 5th metatarsal/amputation site No calf pain noted xrays of left foot reviewed and reveal stable post-op changes. ASSESSMENT: (T81.30XA) Wound dehiscence (primary encounter diagnosis) (E11.40) Type 2 diabetes mellitus with diabetic neuropathy, unspecified whether keno terminal operator insulin use (HCC) (M79.672) Pain in left foot PLAN: 1. History and physical examination completed today. 2. Patient was examined and informed of current findings. She is s/p amputation of left 5th toe complicated by post-op abscess. Her incision/wound dehiscence is fully healed. At this time, she is able to resume normal shoe gears. Stressed use of diabetic shoes. 3. She has complaint of pain of left foot s/p amputation. Recommend pain management referral. No plan on reordering narcotic at this time. 4. She is recommended to apply lotion to her feet daily. 5. F/u in 2 weeks and then every 3 months Allie Pompa DPM Referring Provider: SELF [[id number]] Allergies As of Date: 02/23/2018 Noted Allergy Reaction PENICILLINS 01/28/2010 4 - Hives 7 - Swelling Comments: Updated 12/22/[address] Chaparrita Hidalgo PRAVACHOL (PRAVASTATIN SODIUM) 03/04/2010 5 - Intolerance Comments: Fatigue, loss of appetite. PROZAC (FLUOXETINE HCL) 08/07/2015 1 - Mental Status Change Comments: sleepiness Date Reviewed: 02/23/2018 Reviewed by: Jazmine Bateman Ma - Fully Assessed Reason for Visit: Follow Up [171] Primary Visit Diagnosis:Wound dehiscence [T81.30XA] Other Visit Diagnoses:Type 2 diabetes mellitus with diabetic neuropathy, unspecified whether senior living insulin use (HCC) [E11.40] Pain in left foot [M79.672] Order(s):CONSULT TO PAIN MGT ANESTHESIA [[id number]] Order #: [id number]: 1 Prescriptions as of 02/23/2018 Sig: ACETAMINOPHEN 300 MG-CODEINE * Take 1 tablet by mouth every * NEOMYCIN-BACITRACN ZN-POLYMYX* Apply 1 application to affect* BUSPIRONE 10 MG TABLET Take 1 tablet by mouth three * INSULIN GLARGINE (U-100) 100 * Inject 18 Units subcutaneousl* INSULIN LISPRO (U-100) 100 UN* Inject 6 Units subcutaneously* PEN NEEDLE, DIABETIC 31 GAUGE* Use one needle with each insu* ERGOCALCIFEROL (VITAMIN D2) 5* Take 1 capsule by mouth once * COMPOUNDED PRESCRIPTION Grab Bar Dx: AMLODIPINE 10 MG TABLET Take 1 tablet by mouth once d* BETAMETHASONE DIPROPIONATE 0.* Apply 1 application to affect* DIPHENHYDRAMINE 25 MG TABLET Take 50 mg by mouth every 6 h* BLOOD SUGAR DIAGNOSTIC STRIPS Test blood sugar(s) 4 times d* LANCETS 28 GAUGE Test blood sugar(s) 4 times d* SUMATRIPTAN 50 MG TABLET 50mg by mouth as needed for m* ACETAMINOPHEN ER 650 MG TABLE* Take 2 tablets by mouth twice* ATORVASTATIN 40 MG TABLET Take 1 tablet by mouth daily * LISINOPRIL 30 MG TABLET Take 1 tablet by mouth once d* SERTRALINE 50 MG TABLET Take 1 tablet by mouth once d* Patient not taking: Reported on 02/08/2018 BUPROPION XL 150 MG TAB Take one tablet every other d* Patient not taking: Reported on 02/23/2018 SIMETHICONE 125 MG CHEWABLE T* Take 1 tablet by mouth every * Patient not taking: Reported on 02/08/2018 OMEPRAZOLE 20 MG CAPSULE,GRABIEL* Take 1 capsule by mouth daily* Patient not taking: Reported on 02/08/2018 Problem List As Of Date 02/23/2018 Noted Resolved Stroke/Cerebrovascular Accident [I63.9] INVALID FOR* Lumbago-Sciatica due to Displacement of Lumbar *INVALID FOR* DDD (Degenerative Disc Disease), Lumbar [M51.36]INVALID FOR* Cannabis Abuse [F12.10] INVALID FOR* Lichen planus [L43.9] INVALID FOR* More... Lumbar facet arthropathy [M47.816] INVALID FOR* Essential hypertension, benign [I10] INVALID FOR* Priority: D More... Nasal obstruction [J34.89] INVALID FOR* Myofascial pain [M79.1] INVALID FOR* Diabetic nephropathy with proteinuria (HCC) [E1*INVALID FOR* Priority: C Hyperlipidemia with target LDL less than 100 [E*INVALID FOR* Priority: F More... History of cerebrovascular accident (CVA) with *INVALID FOR* More... 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 Diabetic ulcer of toe of left foot associated w*INVALID FOR* Priority: A More... Lumbar radiculopathy [M54.16] INVALID FOR* More... Gangrene (HCC) [I96] INVALID FOR*12/25/2017 Priority: E More... Wound abscess [T81.4XXA] INVALID FOR* More... Depression [F32.9] INVALID FOR* Priority: H More... Diabetes (HCC) [E11.9] INVALID FOR* Priority: B More... Tobacco abuse [Z72.0] INVALID FOR* Priority: G More... Abscess [L02.91] INVALID FOR*12/25/2017 More... Foot abscess, left [L02.612] INVALID FOR* Penicillin allergy [Z88.0] INVALID FOR* C. difficile diarrhea [A04.72] INVALID FOR*01/07/2018 More... Hypokalemia [E87.6] INVALID FOR*12/31/2017 More... Malnutrition of moderate degree (HCC) [E44.0] INVALID FOR*01/08/2018 More... Normocytic anemia [D64.9] INVALID FOR* More... Electrolyte imbalance [E87.8] INVALID FOR*01/08/2018 More... Disposition: Return in about 2 weeks (around 03/09/2018) for L wound dehiscence. Follow-up and Disposition History Recorded Encounter Status:Closed by ALLIE POMPA DPM on 02/23/18 XR FOOT 3V AP/LAT/OBL Observed: 02/16/2018 Status: F Source: [facility] 1:[address] [facility] [place] REPOSITORY * * *Final Report* * * DATE OF EXAM: Feb 16 2018 1:58PM [id number] [id number] - XR FOOT 3V AP/LAT/OBL LT / PROCEDURE REASON: Disruption of wound, unspecified, initial encounter * * * * Physician Interpretation * * * * Left FOOT: Indication: Pain. Views: AP, Lat, Oblique Comparison: 12/08/2017 Findings: There is no evidence for fracture or dislocation. Spurring is noted about the head of the first metatarsal. Slight lateral angulation of the proximal phalanx in relation to the metatarsal is noted. No soft tissue abnormality is noted. Plantar calcaneal spur. Tendon calcifications Achilles insertion site. Amputation fifth digit at the mid shaft fifth metacarpal tarsal IMPRESSION: Hallux valgus. Osteoarthritis . Fifth digit amputation Renewable Energy Technician: VAZQUEZ Transcribe Date/Time: Feb 16 2018 10:17P Dictated by : OSMAN ALCANTAR, DO This examination was interpreted and the report reviewed and electronically signed by: OSMAN ALCANTAR DO on Feb 16 2018 10:21PM EST [id number] PROGRESS Observed: 02/16/2018 Status: COMPLETED Source: [place] 1:45 PM [facility] REPOSITORY HNO ID: [id number] Author: Edwian Denise Service: (none) Author Type: (none) Type: Progress Notes Filed: 02/16/2018 1:58 PM Note Text: Radiology Service Progress Note PATIENT NAME: Davina Green DATE OF SERVICE: February 16, 2018 TIME: 1:45 PM PATIENT IDENTITY VERIFICATION COMPLETED USING TWO (2) METHODS: Patient confirmed name verbally and Date of . PATIENT GENDER DATA: Female. status: : No status: NO. PATIENT RELEVANT IMPLANT DATA REVIEWED: Not Applicable RADIOLOGY DEPARTMENT: General X-ray: Exam(s) Completed: Lower Extremity X-Ray(s): Foot, Left and Wt. Bearing: PERIPHERAL IV DATA: Not applicable SIGNED BY: Edwina Denise February 16, 2018 1:45 PM CNOV Observed: 02/16/2018 Status: COMPLETED Source: [place] 12:55 PM [facility] REPOSITORY Office Visit (PODIWS) PETERDAVINA KAHN ([id number]) 1955 F Date Time Provider Department 02/16/18 12:55 PM ALLIE POMPA PODIWS During your visit today, we recorded the following information about you: Allie Pompa DPM 02/16/2018 2:39 PM Signed ? Allie Pompa DPM Department of Podiatry [address] [place] [address] Dept: [phone] Dept 02/16/2018 Follow Up Podiatric Office Visit: HPI: Davina Green is a 62 year old female. Patient presents for follow up for L foot pain/amputation of left 5th ray. Pain is rated at 5/10, and described as stabbing and sharp. She states it comes and goes but when it is present it drives me nuts. She is post partial 5th ray amputation on 12/11/17 and subsequently underwent incision and drainage of abscess in december by Dr. Garrett. She has been seen by vascular surgery who feels patient is capable of healing. She is here for pain control. She takes tylenol but it's not helping. She complains of painful toenails of b/l feet. Physical Exam: Constitutional: Pt is a well developed 62 year old female who is alert, oriented and cooperative Eyes: Following during examination. No redness or drainage. Respiratory: RR normal and nonlabored. Even breathing. No evidence of distress or shortness of breath. Psychology: Patient is engaged during conversation. Normal affect and mood. Does not appear depressed or anxious during encounter. Vascular: Dorsalis pedis and posterior tibial pulses very faintly palpable as b/l Capillary Fill time < 5 seconds to digits b/l Skin temperature warm to warm proximal to distal b/l Hair growth present to digits Neurological: diminished light touch/epicritic sensation diminished protective sensation, significant neurological deficits. Dermatological: Noninfected eschar is noted to lateral aspect of left foot at site of amputation. Eschar was removed with forceps. There is noninfected wound dehiscence that measures 0.5 cm x 0.3 cm x 0.2 cm. There is no exposed tendon capsule or bone Toenails 1-5 right and 1-4 left are dystrophic and b/l hallux toenails are found to be ingrowing. There are no signs of infection. Musculoskeletal/Orthopaedic: Patient has pain to palpation of left 5th ray amputation site Foot type is neutral structurally AJ ROM is full with knee extended and flexed 1st MPJ is full when loaded and no pain or crepitus are noted with ROM. MTJ, STJ are full and free of pain and crepitus. +5/5 muscle strength dorsiflexion, plantarflexion, inversion, eversion b/l Radiographs: ordered ASSESSMENT: (T81.30XA) Wound dehiscence (primary encounter diagnosis) (E11.40) Type 2 diabetes mellitus with diabetic neuropathy, unspecified whether senior living insulin use (HCC) (B35.1) Onychomycosis PLAN: Patient s/p amputation of left 5th ray complicated with abscess/osteomyelitis. She has very superficial eschar of left foot that was removed with forceps today. There is small wound to left lateral foot. Recommend topical neosporin and band aid and use of surgical shoe. Will obtain xrays for f/u. She has pain of left foot s/p amputation. Informed patient that I will give her one prescription for tylenol #3 and I have no plans for anything further. If she still has pain, she will likely need referral to pain management. Toenails debrided 1-5 right and 1-4 left foot. B/l hallux toenails showing incurvation. Debridement via slant back was performed. Band aid was applied to b/l hallux. She will monitor for any complications. If any complications occur, she is to contact the office. Patient to f/u in 1 week. NOA Hernandez RN 02/16/2018 1:23 PM Signed Apply neosporin and band aid daily Wear post op shoe on L foot Referring Provider: SELF [200] Allergies As of Date: 02/16/2018 Noted Allergy Reaction PENICILLINS 01/28/2010 4 - Hives 7 - Swelling Comments: Updated 12/22/[address] Chaparrita Hidalgo PRAVACHOL (PRAVASTATIN SODIUM) 03/04/2010 5 - Intolerance Comments: Fatigue, loss of appetite. PROZAC (FLUOXETINE HCL) 08/07/2015 1 - Mental Status Change Comments: sleepiness Date Reviewed: 02/16/2018 Reviewed by: Jodie Calderón RN - Fully Assessed Reason for Visit: Follow Up [171] Primary Visit Diagnosis:Wound dehiscence [T81.30XA] Other Visit Diagnoses:Type 2 diabetes mellitus with diabetic neuropathy, unspecified whether senior living insulin use ([facility]) [E11.40] Onychomycosis [B35.1] Order(s):XR FOOT GENERAL 3V AP/LAT/OBL LT [[id number]] Order #: [id number] FUTURE acetaminophen-codeine (TYLENOL-CODEINE #3) 300-30 mg per tabletTake 1 tablet by mouth every 6 hours as needed for up to 7 days.Disp: 28 tabletRfl: 0 yjdbudme-foxvekpjsq-dsyqppvwa (NEOSPORIN, ATD-IOL-NCMOT,) 3.5mg-400 unit- 5,000 unit/gram ointApply 1 application to affected area once daily.Disp: 1 TubeRfl: 1 Prescriptions as of 02/16/2018 Sig: BUSPIRONE 10 MG TABLET Take 1 tablet by mouth three * ATORVASTATIN 40 MG TABLET Take 1 tablet by mouth daily * LISINOPRIL 30 MG TABLET Take 1 tablet by mouth once d* INSULIN GLARGINE (U-100) 100 * Inject 18 Units subcutaneousl* INSULIN LISPRO (U-100) 100 UN* Inject 6 Units subcutaneously* PEN NEEDLE, DIABETIC 31 GAUGE* Use one needle with each insu* ERGOCALCIFEROL (VITAMIN D2) 5* Take 1 capsule by mouth once * COMPOUNDED PRESCRIPTION Grab Bar Dx: AMLODIPINE 10 MG TABLET Take 1 tablet by mouth once d* BETAMETHASONE DIPROPIONATE 0.* Apply 1 application to affect* DIPHENHYDRAMINE 25 MG TABLET Take 50 mg by mouth every 6 h* BLOOD SUGAR DIAGNOSTIC STRIPS Test blood sugar(s) 4 times d* LANCETS 28 GAUGE Test blood sugar(s) 4 times d* SUMATRIPTAN 50 MG TABLET 50mg by mouth as needed for m* ACETAMINOPHEN ER 650 MG TABLE* Take 2 tablets by mouth twice* ACETAMINOPHEN 300 MG-CODEINE * Take 1 tablet by mouth every * NEOMYCIN-BACITRACN ZN-POLYMYX* Apply 1 application to affect* SERTRALINE 50 MG TABLET Take 1 tablet by mouth once d* Patient not taking: Reported on 02/08/2018 BUPROPION XL 150 MG TAB Take one tablet every other d* Patient not taking: Reported on 02/08/2018 SIMETHICONE 125 MG CHEWABLE T* Take 1 tablet by mouth every * Patient not taking: Reported on 02/08/2018 OMEPRAZOLE 20 MG CAPSULE,GRABIEL* Take 1 capsule by mouth daily* Patient not taking: Reported on 02/08/2018 Problem List As Of Date 02/16/2018 Noted Resolved Stroke/Cerebrovascular Accident [I63.9] INVALID FOR* Lumbago-Sciatica due to Displacement of Lumbar *INVALID FOR* DDD (Degenerative Disc Disease), Lumbar [M51.36]INVALID FOR* Cannabis Abuse [F12.10] INVALID FOR* Lichen planus [L43.9] INVALID FOR* More... Lumbar facet arthropathy [M47.816] INVALID FOR* Essential hypertension, benign [I10] INVALID FOR* Priority: D More... Nasal obstruction [J34.89] INVALID FOR* Myofascial pain [M79.1] INVALID FOR* Diabetic nephropathy with proteinuria (HCC) [E1*INVALID FOR* Priority: C Hyperlipidemia with target LDL less than 100 [E*INVALID FOR* Priority: F More... History of cerebrovascular accident (CVA) with *INVALID FOR* More... 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 Diabetic ulcer of toe of left foot associated w*INVALID FOR* Priority: A More... Lumbar radiculopathy [M54.16] INVALID FOR* More... Gangrene (HCC) [I96] INVALID FOR*12/25/2017 Priority: E More... Wound abscess [T81.4XXA] INVALID FOR* More... Depression [F32.9] INVALID FOR* Priority: H More... Diabetes (HCC) [E11.9] INVALID FOR* Priority: B More... Tobacco abuse [Z72.0] INVALID FOR* Priority: G More... Abscess [L02.91] INVALID FOR*12/25/2017 More... Foot abscess, left [L02.612] INVALID FOR* Penicillin allergy [Z88.0] INVALID FOR* C. difficile diarrhea [A04.72] INVALID FOR*01/07/2018 More... Hypokalemia [E87.6] INVALID FOR*12/31/2017 More... Malnutrition of moderate degree (HCC) [E44.0] INVALID FOR*01/08/2018 More... Normocytic anemia [D64.9] INVALID FOR* More... Electrolyte imbalance [E87.8] INVALID FOR*01/08/2018 More... Other instructions from your clinician: Apply neosporin and band aid daily Wear post op shoe on L foot Prescriptions ordered this encounter Disp Refills Start End ACETAMINOPHEN 300 MG-CODEINE 30 MG T* 28 t* 0 02/16/2018 02/23/2018 Class: Print RX Cmt: S/p amputation Route: ORAL Sig: Take 1 tablet by mouth every 6 hours as needed for up to 7 days. NEOMYCIN-BACITRACN ZN-POLYMYX 3.5 MG* 1 Tu* 1 02/16/2018 Route: TOPICAL Sig: Apply 1 application to affected area once daily. Disposition: Return in about 1 week (around 02/23/2018) for wound dehiscence, L . Follow-up and Disposition History Recorded Encounter Status:Closed by ALLIE POMPA DPM on 02/16/18 PROGRESS Observed: 02/16/2018 Status: COMPLETED Source: [place] 12:51 PM [facility] REPOSITORY HNO ID: [id number] Author: Allie Pompa Service: (none) Author Type: Physician Type: Progress Notes Filed: 02/16/2018 2:39 PM Note Text: ? Allie Pompa DPM Department of Podiatry [address] [facility] [address] Dept: [phone] Dept 02/16/2018 Follow Up Podiatric Office Visit: HPI: Davina Green is a 62 year old female. Patient presents for follow up for L foot pain/amputation of left 5th ray. Pain is rated at 5/10, and described as stabbing and sharp. She states it comes and goes but when it is present it drives me nuts. She is post partial 5th ray amputation on 12/11/17 and subsequently underwent incision and drainage of abscess in december by Dr. Garrett. She has been seen by vascular surgery who feels patient is capable of healing. She is here for pain control. She takes tylenol but it's not helping. She complains of painful toenails of b/l feet. Physical Exam: Constitutional: Pt is a well developed 62 year old female who is alert, oriented and cooperative Eyes: Following during examination. No redness or drainage. Respiratory: RR normal and nonlabored. Even breathing. No evidence of distress or shortness of breath. Psychology: Patient is engaged during conversation. Normal affect and mood. Does not appear depressed or anxious during encounter. Vascular: Dorsalis pedis and posterior tibial pulses very faintly palpable as b/l Capillary Fill time < 5 seconds to digits b/l Skin temperature warm to warm proximal to distal b/l Hair growth present to digits Neurological: diminished light touch/epicritic sensation diminished protective sensation, significant neurological deficits. Dermatological: Noninfected eschar is noted to lateral aspect of left foot at site of amputation. Eschar was removed with forceps. There is noninfected wound dehiscence that measures 0.5 cm x 0.3 cm x 0.2 cm. There is no exposed tendon capsule or bone Toenails 1-5 right and 1-4 left are dystrophic and b/l hallux toenails are found to be ingrowing. There are no signs of infection. Musculoskeletal/Orthopaedic: Patient has pain to palpation of left 5th ray amputation site Foot type is neutral structurally AJ ROM is full with knee extended and flexed 1st MPJ is full when loaded and no pain or crepitus are noted with ROM. MTJ, STJ are full and free of pain and crepitus. +5/5 muscle strength dorsiflexion, plantarflexion, inversion, eversion b/l Radiographs: ordered ASSESSMENT: (T81.30XA) Wound dehiscence (primary encounter diagnosis) (E11.40) Type 2 diabetes mellitus with diabetic neuropathy, unspecified whether senior living insulin use ([facility]) (B35.1) Onychomycosis PLAN: Patient s/p amputation of left 5th ray complicated with abscess/osteomyelitis. She has very superficial eschar of left foot that was removed with forceps today. There is small wound to left lateral foot. Recommend topical neosporin and band aid and use of surgical shoe. Will obtain xrays for f/u. She has pain of left foot s/p amputation. Informed patient that I will give her one prescription for tylenol #3 and I have no plans for anything further. If she still has pain, she will likely need referral to pain management. Toenails debrided 1-5 right and 1-4 left foot. B/l hallux toenails showing incurvation. Debridement via slant back was performed. Band aid was applied to b/l hallux. She will monitor for any complications. If any complications occur, she is to contact the office. Patient to f/u in 1 week. Allie Pompa DPM PROGRESS Observed: 02/08/2018 Status: COMPLETED Source: [place] 11:00 AM [facility] REPOSITORY O ID: [id number] Author: Avi Camp Service: (none) Author Type: Physician Type: Progress Notes Filed: 02/08/2018 11:51 AM Note Text: HPI: The patient is a 62-year-old woman who was seen in the hospital for gangrene of the left fifth toe and adjacent osteomyelitis of the toe and fifth metatarsal. Cultures grew skin arthur and staph epidermidis. She had partial ray amputation and additional debridements. She has been on IV vancomycin since December 22. She delayed scheduling a follow-up appointment due to distance and transportation problems. She reports some persistent pain in the foot at the site of the amputation but the wound has healed and there is no drainage or swelling. She is wearing a regular shoe. No fever or chills. No problems with the PICC line or her antibiotic infusions. She reports she is monitoring her glucose closely and sugar control has been better She has other questions which I'm not able to answer. Wants to know if she needs to go to the cooling tower operator here in [place]. She was advised to schedule a follow-up appointment at the time of discharge but missed an appointment. I recommend that she talk with him or his office about this. Possibly she could follow up with her cooling tower operator at home in [place]. She also is asking if she needs to stay on Plavix. I'm not able to answer this either, she probably should discuss with her primary care physician about this. atorvastatin (LIPITOR) 40 mg tablet Take 1 tablet by mouth daily at bedtime. lisinopril (ZESTRIL,PRINIVIL) 30 mg tablet Take 1 tablet by mouth once daily. insulin glargine (BASAGLAR KWIKPEN U-100 INSULIN) 100 unit/mL (3 mL) inpn Inject 18 Units subcutaneously daily at bedtime. insulin lispro (ADMELOG SOLOSTAR U-100 INSULIN) 100 unit/mL inpn Inject 6 Units subcutaneously three times daily before meals. Insulin [place], Disposable, (PEN NEEDLES) 31 gauge x 1/4 ndle Use one needle with each insulin dose. 4/day ergocalciferol, vitamin D2, (DRISDOL) 50,000 unit capsule Take 1 capsule by mouth once each week. clopidogrel (PLAVIX) 75 mg tablet Take 1 tablet by mouth once daily. amLODIPine (NORVASC) 10 mg tablet Take 1 tablet by mouth once daily. Betamethasone Dipropionate 0.05 % lotion Apply 1 application to affected area twice daily. diphenhydrAMINE (BENADRYL) 25 mg tablet Take 50 mg by mouth every 6 hours as needed for Itching/Rash. blood sugar diagnostic (FREESTYLE LITE STRIPS) test strip Test blood sugar(s) 4 times daily. Dx: Type 2 DM - Uncontrolled E11.65 Insulin: Yes lancets (FREESTYLE LANCETS) 28 gauge misc Test blood sugar(s) 4 times daily. Dx: Type 2 DM - Uncontrolled E11.65 Insulin: Yes SUMAtriptan (IMITREX) 50 mg tablet 50mg by mouth as needed for migraine headache; may repeat every 2 hrs as needed for migraine(max 4/day and 9/mo) acetaminophen (TYLENOL ARTHRITIS PAIN) 650 mg CR tablet Take 2 tablets by mouth twice daily as needed for Pain. busPIRone (BUSPAR) 10 mg tablet Take 1 tablet by mouth three times daily. sertraline (ZOLOFT) 50 mg tablet Take 1 tablet by mouth once daily. buPROPion XL (WELLBUTRIN XL) 150 mg 24 hr tablet Take one tablet every other day for one week, then every 3 days until gone, then stop. COMPOUNDED PRESCRIPTION Grab Bar Dx: Simethicone (GAS RELIEF) 125 mg chewable tablet Take 1 tablet by mouth every 6 hours as needed. omeprazole (PRILOSEC) 20 mg capsule Take 1 capsule by mouth daily before breakfast. 1/2 hr before meal. Review of Systems All other systems reviewed and are negative. Physical Exam Musculoskeletal: She exhibits tenderness (Mild lateral left foot at site of operative procedure). Amputation incision is healing well, closed and dry. There is a small adherent scab at the proximal and with no redness drainage or fluctuance. Skin: Rash (excoriated rash of arms, no other rash visible elsewhere) noted. PICC line now present in right upper arm, site is nontender and unremarkable. Vitals reviewed. ASSESSMENT/PLAN: 1. Osteomyelitis of ankle or foot, acute, left (HCC) - ICD9: 730.07, ICD10: M86.172 She has received just over 6 weeks total IV antibiotic therapy along with possible amputation of the affected bone. She has good healing at the site with no physical signs of residual infection. She still has some elevation of C-reactive protein but this may be due to other factors. I do not see an indication to extend IV therapy longer and are limited oral treatment options for her at this time. I do not think she requires additional oral follow-up treatment at this point. Orders will be called to [facility] infusion to DC vancomycin. Also contacted her visiting nurse agency [facility] in [place] [phone] and gave order to have her PICC line removed at a home tomorrow when the nurses scheduled to come. She should contact her cooling tower operator here in [place] regarding need for follow-up in his office and also discuss Plavix with her primary care physician. No follow-up scheduled here. Avi Camp MD PROGRESS Observed: 01/26/2018 Status: COMPLETED Source: [place] 2:53 PM [facility] REPOSITORY HNO ID: [id number] Author: Napoleon Pizarro (Rn) Service: (none) Author Type: Registered Nurse Type: Progress Notes Filed: 01/26/2018 4:14 PM Note Text: PRIMARY CARE COORDINATION FOLLOW-UP NOTE Provider Action/FYI 1. Spk with [facility] who received order for shower chair, faxed face sheet, notified Pt 2. Notified per Vladimir High CREDIT CONTROL ADMINISTRATOR can take over the counter immodium for diarrhea. If diarrhea is persisting and getting worse she will need to let us know. Pt verbalized understanding. Patient identified by name and date of . YES Spoke to patient Signature Juarez Bender RN January 26, 2018 PROGRESS Observed: 01/26/2018 Status: COMPLETED Source: [place] 2:26 PM [facility] REPOSITORY HNO ID: [id number] Author: Anthony Renee (Valeri) Akbar Service: (none) Author Type: Nurse Practitioner Type: Progress Notes Filed: 01/26/2018 4:14 PM Note Text: At OV, we clarified with patient and medication list stated Daly 17 units. OK to increase to 18 units. She can take over the counter immodium for diarrhea. If diarrhea is persisting and getting worse she will need to let us know. Anthony High, MSN COMMUNICATIONS PROGRAM MANAGER.CREDIT CONTROL ADMINISTRATOR PROGRESS Observed: 01/26/2018 Status: COMPLETED Source: [place] 1:[address] [facility] [place] REPOSITORY HNO ID: [id number] Author: Napoleon Pizarro (Rn) Service: (none) Author Type: Registered Nurse Type: Progress Notes Filed: 01/26/2018 4:14 PM Note Text: PRIMARY CARE COORDINATION FOLLOW-UP NOTE Provider Action/FYI 1. Spk with Pt reviewed 01/23/18 ANDREW High CREDIT CONTROL ADMINISTRATOR Plan to increase Basaglar to 18 units and Lispro to 6 units tid with meals. 2. Pt states was taking Basaglar 14 units, noted will start taking 18 units, and is taking Lispro 6 units with each meal. Pt reports FBS range 189-191, PP 233-300, denies Hypoglycemia 3. Pt is having more frequent episodes of diarrhea, wants to verify what she can take OTC? 4. PICC line drsg change today by [facility] Nurse Montserrat [phone], Pt reports receiving Vancomycin daily, PICC is flushed once daily without difficulty Patient identified by name and date of . YES Thank You, Signature Juarez Bender RN January 26, 2018 CNPTOUTREACH Observed: 01/26/2018 Status: COMPLETED Source: [place] 12:00 AM [facility] REPOSITORY Patient Outreach (FAMPWS) DAVINA GREEN ([id number]) 1955 F Date Time Provider Department 01/26/18 NAPOLEON PIZARRO (RN) FAMPWS During your visit today, we recorded the following information about you: Juarez Bender RN 01/26/2018 4:14 PM Signed PRIMARY CARE COORDINATION FOLLOW-UP NOTE Provider Action/FYI 1. Spk with Pt reviewed 01/23/18 ANDREW High CREDIT CONTROL ADMINISTRATOR Plan to increase Basaglar to 18 units and Lispro to 6 units tid with meals. 2. Pt states was taking Basaglar 14 units, noted will start taking 18 units, and is taking Lispro 6 units with each meal. Pt reports FBS range 189-191, PP 233-300, denies Hypoglycemia 3. Pt is having more frequent episodes of diarrhea, wants to verify what she can take OTC? 4. PICC line drsg change today by [facility] Nurse Montserrat [phone], Pt reports receiving Vancomycin daily, PICC is flushed once daily without difficulty Patient identified by name and date of . YES Thank You, Signature Juarez Bender RN January 26, 2018 Anthony High, MSN COMMUNICATIONS PROGRAM MANAGER.JOSE CARLOS 01/26/2018 4:14 PM Signed At , we clarified with patient and medication list stated [place] 17 units. OK to increase to 18 units. She can take over the counter immodium for diarrhea. If diarrhea is persisting and getting worse she will need to let us know. Anthony High, MSN COMMUNICATIONS PROGRAM MANAGER.JOSE CARLOS Bender RN 01/26/2018 4:14 PM Signed PRIMARY CARE COORDINATION FOLLOW-UP NOTE Provider Action/FYI 1. Spk with [facility] who received order for shower chair, faxed face sheet, notified Pt 2. Notified per Vladimir High CREDIT CONTROL ADMINISTRATOR can take over the counter immodium for diarrhea. If diarrhea is persisting and getting worse she will need to let us know. Pt verbalized understanding. Patient identified by name and date of . YES Spoke to patient Signature Juarez Bender RN January 26, 2018 Allergies As of Date: 01/26/2018 Noted Allergy Reaction PENICILLINS 01/28/2010 4 - Hives 7 - Swelling Comments: Updated 12/22/[address] Chaparrita Hidalgo PRAVACHOL (PRAVASTATIN SODIUM) 03/04/2010 5 - Intolerance Comments: Fatigue, loss of appetite. 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 [4031] Cmt: DM Prescriptions as of 01/26/2018 Sig: ATORVASTATIN 40 MG TABLET Take 1 tablet by mouth daily * LISINOPRIL 30 MG TABLET Take 1 tablet by mouth once d* SERTRALINE 50 MG TABLET Take 1 tablet by mouth once d* BUPROPION XL 150 MG TAB Take one tablet every other d* INSULIN GLARGINE (U-100) 100 * Inject 18 Units subcutaneousl* INSULIN LISPRO (U-100) 100 UN* Inject 6 Units subcutaneously* PEN NEEDLE, DIABETIC 31 GAUGE* Use one needle with each insu* ERGOCALCIFEROL (VITAMIN D2) 5* Take 1 capsule by mouth once * CLOPIDOGREL 75 MG TABLET Take 1 tablet by mouth once d* COMPOUNDED PRESCRIPTION Grab Bar Dx: AMLODIPINE 10 MG TABLET Take 1 tablet by mouth once d* BETAMETHASONE DIPROPIONATE 0.* Apply 1 application to affect* VANCOMYCIN 1 GRAM/200 ML IN D* Inject 200 mL intravenously q* DIPHENHYDRAMINE 25 MG TABLET Take 50 mg by mouth every 6 h* BLOOD SUGAR DIAGNOSTIC STRIPS Test blood sugar(s) 4 times d* LANCETS 28 GAUGE Test blood sugar(s) 4 times d* SIMETHICONE 125 MG CHEWABLE T* Take 1 tablet by mouth every * SUMATRIPTAN 50 MG TABLET 50mg by mouth as needed for m* ACETAMINOPHEN ER 650 MG TABLE* Take 2 tablets by mouth twice* OMEPRAZOLE 20 MG CAPSULE,GRABIEL* Take 1 capsule by mouth daily* BUSPIRONE 10 MG TABLET Take 1 tablet by mouth three * Problem List As Of Date 01/26/2018 Noted Resolved Stroke/Cerebrovascular Accident [I63.9] INVALID FOR* Lumbago-Sciatica due to Displacement of Lumbar *INVALID FOR* DDD (Degenerative Disc Disease), Lumbar [M51.36]INVALID FOR* Cannabis Abuse [F12.10] INVALID FOR* Lichen planus [L43.9] INVALID FOR* More... Lumbar facet arthropathy [M47.816] INVALID FOR* Essential hypertension, benign [I10] INVALID FOR* Priority: D More... Nasal obstruction [J34.89] INVALID FOR* Myofascial pain [M79.1] INVALID FOR* Diabetic nephropathy with proteinuria (HCC) [E1*INVALID FOR* Priority: C Hyperlipidemia with target LDL less than 100 [E*INVALID FOR* Priority: F More... History of cerebrovascular accident (CVA) with *INVALID FOR* More... 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 Diabetic ulcer of toe of left foot associated w*INVALID FOR* Priority: A More... Lumbar radiculopathy [M54.16] INVALID FOR* More... Gangrene (HCC) [I96] INVALID FOR*12/25/2017 Priority: E More... Wound abscess [T81.4XXA] INVALID FOR* More... Depression [F32.9] INVALID FOR* Priority: H More... Diabetes (HCC) [E11.9] INVALID FOR* Priority: B More... Tobacco abuse [Z72.0] INVALID FOR* Priority: G More... Abscess [L02.91] INVALID FOR*12/25/2017 More... Foot abscess, left [L02.612] INVALID FOR* Penicillin allergy [Z88.0] INVALID FOR* C. difficile diarrhea [A04.72] INVALID FOR*01/07/2018 More... Hypokalemia [E87.6] INVALID FOR*12/31/2017 More... Malnutrition of moderate degree (HCC) [E44.0] INVALID FOR*01/08/2018 More... Normocytic anemia [D64.9] INVALID FOR* More... Electrolyte imbalance [E87.8] INVALID FOR*01/08/2018 More... Encounter Status:Closed by JUAREZ BENDER on 01/26/18 PROGRESS Observed: 01/23/2018 Status: COMPLETED Source: [place] 2:[address] [facility] [place] REPOSITORY [facility] ID: [id number] Author: Napoleon Pizarro (Rn) Service: (none) Author Type: Registered Nurse Type: Progress Notes Filed: 01/24/2018 2:37 PM Note Text: PRIMARY CARE COORDINATION IN OFFICE VISIT WITH PCP Patient has been identified by name and date of . PCP Assessment/Plan: Reviewed PCP plan with patient using Teach Back ASSESSMENT/PLAN: 01/23/18 1. Type 2 diabetes mellitus with diabetic neuropathy, unspecified whether keno terminal operator insulin use (HCC) - ICD9: 250.60, 357.2, ICD10: E11.40 (primary diagnosis) improved control - Increase Basaglar to 18 units and Lispro to 6 units tid with meals. Detailed medication reconciliation completed and written out for patient. Meds not using were segregated from current active meds. - Blood glucose monitoring on a three times a day schedule - Follow up in 1 month, sooner should any other issues arise. - Discussed diabetic education issues of keno terminal operator diabetic complications, hypoglycemic symptoms, hyperglycemic symptoms and medications- side effects and need for compliance with patient. May consider adding oral meds on board in future. - BP goal of <130/80 - LDL goal of <100 - INSULIN GLARGINE (U-100) 100 UNIT/ML (3 ML) SUBCUTANEOUS PEN - INSULIN LISPRO (U-100) 100 UNIT/ML SUBCUTANEOUS PEN - HEMOGLOBIN A1C (POC) ? 2. Essential hypertension, benign - ICD9: 401.1, ICD10: I10 - good control - Continue current medication(s) - Encouraged dietary sodium restriction/DASH diet - Follow up in 1 month for BP recheck. - Goal of BP <130/80 - LISINOPRIL 30 MG TABLET ? 3. Hyperlipidemia with target LDL less than 100 - ICD9: 272.4, ICD10: E78.5 - to be determined upon return of lab results - Continue current dose of atorvastatin (Lipitor) 40 mg. - ATORVASTATIN 40 MG TABLET ? 4. Depression, unspecified depression type - ICD9: 311, ICD10: F32.9 - Patient wishes to discontinue antidepressant medications. Zoloft was decreased to 50 mg at some point and she was started on Wellbutrin XL. Will taper to DC Wellbutrin. This was written out in detail on AVS. - SE RTRALINE 50 MG TABLET - BUPROPION XL 150 MG TAB ? 5. Osteomyelitis of left foot, unspecified type (HCC) - ICD9: 730.27, ICD10: M86.9 Stable, on Vanc. To follow up with ID as scheduled. ? 6. Vitamin D deficiency - ICD9: 268.9, ICD10: E55.9 Rx refilled - ERGOCALCIFEROL (VITAMIN D2) 50,000 UNIT CAPSULE ? 7. Lichen planus - ICD9: 697.0, ICD10: L43.9 - Using topical steroid creams. Next Office Visit: 02/23/2018 Plan For Next Call: Medication Management-Insulin dose changes, Instruct and encourage DM Self Management skills, BS testing 3 times daily and prn, bring log, meter to next OV 02/23/18 [facility] VNS 2 x week - Vancomycin Admin through PICC line, provides Atb administaration ID Dr. English f/u date (Pt states transportation via cab) Early symptom awareness, prevent complications and hospitalization Juarez Bender RN January 23, 2018 MOHINI Observed: 01/23/2018 Status: COMPLETED Source: [place] 1:40 PM [facility] REPOSITORY Office Visit (FAMPWS) DAVINA GREEN ([id number]) 1955 F Date Time Provider Department 01/23/18 1:40 PM ANTHONY HIGH (NURSE PRACTITIONER ADULT) FAMPWS During your visit today, we recorded the following information about you: Temperature Pulse Respiration Blood pressure 99 degrees 88/minute 18/minute 122/82 Weight 59.9 kg Anthony High, MSN COMMUNICATIONS PROGRAM MANAGER.CREDIT CONTROL ADMINISTRATOR 01/23/2018 3:29 PM Signed Chief Complaint Patient presents with: Recheck: was discharged from [facility] Davina Green is a 62 year old female who presents here today for follow up discharge from [facility], [facility] 01/09/18- 01/18/18. Discharge Summary from [facility] reviewed, discharged on 01/09/18, Abscess/cellulitis, early osteomyelitis of left foot, S/P amputation 5th toe. Detailed Summary reviewed. She is here for routine medical follow up, large bag of medications. I'm so confused I don't know what I'm suppose to be taking. Since home from [facility], discharged on 01/18/18. States medications were sent in packets which are all completed now. She has Home Health Nurse from [facility], coming into the home twice a week, PICC line dressing changes and lab draw for Vanc trough. Patient reports administers the Vancomycin and does well helping her in the home. She states she does not have any pain specifically to her left foot and is able to be up and weight bear as tolerated. She tells me she has stopped smoking as of 6 weeks ago and reports she is now taking her diabetes seriously since toe was amputated. She has her insulins along with medications all here, needing refills on some meds. Following with Dr. Camp-Infectious Disease Dr. [facility] both in [place]. Apt's already scheduled. DM: She reports testing her sugars tid, did not bring her meter with her to visit. This morning FBS 191. Hospital course was complicated by c diff infection which patient reports has cleared. She did have bout of diarrhea this morning. Past medical history, appointments, medications, allergies reviewed. Previous Medical History PAST MEDICAL HISTORY Diagnosis Date - Anxiety - Benign hypertension 08/07/2015 - Cannabis abuse 02/23/2010 - Carotid artery disorder ([facility]) Right sided - Carotid stenosis 03/11/2010 - Cervical cancer ([facility]) - CVA (cerebral infarction) 11/2009 L hemiparesis and decreased coordination - DDD (degenerative disc disease), lumbar 02/23/2010 - Diabetic nephropathy with proteinuria ([facility]) 03/18/2014 - Diabetic ulcer of toe of left foot associated with type 2 diabetes mellitus, limited to breakdown of skin ([facility]) 10/17/2017 - Environmental allergies - Essential hypertension, benign 06/22/2012 - 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 ([facility]) - Hyperlipidemia - Lichen planus 11/09/2010 - Lumbago-sciatica due to displacement of lumbar intervertebral disc 02/23/2010 - Lumbar radiculopathy 10/17/2017 left sciatica - PVD (peripheral vascular disease) ([facility]) 2017 - Spastic neurogenic bladder 05/14/2015 - Tobacco abuse - Type 2 diabetes mellitus with microalbuminuria, without long-term current use of insulin ([facility]) 05/08/2017 Previous Surgical History PAST SURGICAL HISTORY Procedure Laterality Date - AMPUTATION METATARSAL+TOE,SINGLE Left 12/11/2017 partial 5th toe - COLONOSCOP W/ OR W/O BRSH SPEC 04/11/2016 Colonoscopy - EGD W/O OR W/BRUSH/WASH 04/11/2016 EGD - IR VASCULAR ACCESS TEAM PICC INSERTION RADIO 12/26/2017 - LUMBAR OR CAUDAL EPIDURAL STEROID INJECTION 02/21/2011 - PAST SURGICAL HISTORY OF Exploratory surgery for cervical ca Family History FAMILY HISTORY Problem Relation Age of Onset - Coronary Artery Disease Father - Stroke Mother - Diabetes Maternal Grandmother Patient Allergies ALLERGIES Allergen Reactions - Lipitor [Atorvastat* Other: See Comments fatigue - Penicillins Hives, Swelling Updated 12/22/[address] Chaparrita Hidalgo - Pravachol [Pravasta* Intolerance Fatigue, loss of appetite. - Prozac [Fluoxetine * Mental Status Change sleepiness Current Medications Current Outpatient Prescriptions on File Prior to Visit: clopidogrel (PLAVIX) 75 mg tablet Take 1 tablet by mouth once daily. COMPOUNDED PRESCRIPTION Chau Garza Dx: amLODIPine (NORVASC) 10 mg tablet Take 1 tablet by mouth once daily. atorvastatin (LIPITOR) 40 mg tablet Take 1 tablet by mouth daily at bedtime. lisinopril (ZESTRIL,PRINIVIL) 30 mg tablet Take 1 tablet by mouth once daily. insulin glargine (BASAGLAR KWIKPEN U-100 INSULIN) 100 unit/mL (3 mL) inpn Inject 17 Units subcutaneously daily at bedtime. insulin lispro (HUMALOG KWIKPEN) 100 unit/mL inpn Inject 5 Units subcutaneously w MEALS. docusate sodium (COLACE) 100 mg capsule Take 1 capsule by mouth twice daily. Betamethasone Dipropionate 0.05 % lotion Apply 1 application to affected area twice daily. vancomycin (VANCOCIN) 1 gram/200 mL in D5W Inject 200 mL intravenously q 24 HR for 25 days. diphenhydrAMINE (BENADRYL) 25 mg tablet Take 50 mg by mouth every 6 hours as needed for Itching/Rash. dicyclomine (BENTYL) 20 mg tablet Take 1 tablet by mouth three times daily before meals. sertraline (ZOLOFT) 100 mg tablet Take 1 tablet by mouth once daily. Insulin [place], Disposable, (PEN NEEDLES) 31 gauge x 1/4 ndle Use one needle with each insulin dose. 4/day blood sugar diagnostic (FREESTYLE LITE STRIPS) test strip Test blood sugar(s) 4 times daily. Dx: Type 2 DM - Uncontrolled E11.65 Insulin: Yes lancets (FREESTYLE LANCETS) 28 gauge misc Test blood sugar(s) 4 times daily. Dx: Type 2 DM - Uncontrolled E11.65 Insulin: Yes Simethicone (GAS RELIEF) 125 mg chewable tablet Take 1 tablet by mouth every 6 hours as needed. SUMAtriptan (IMITREX) 50 mg tablet 50mg by mouth as needed for migraine headache; may repeat every 2 hrs as needed for migraine(max 4/day and 9/mo) acetaminophen (TYLENOL ARTHRITIS PAIN) 650 mg CR tablet Take 2 tablets by mouth twice daily as needed for Pain. omeprazole (PRILOSEC) 20 mg capsule Take 1 capsule by mouth daily before breakfast. 1/2 hr before meal. buPROPion XL (WELLBUTRIN XL) 150 mg 24 hr tablet Take 1 tablet by mouth once daily. busPIRone (BUSPAR) 10 mg tablet Take 1 tablet by mouth three times daily. No current facility-administered medications on file prior to visit. Social History Social History Marital status: Spouse name: Years of education: Number of children: Social History Main Topics Smoking status: Former Smoker Packs/day: 1.00 Years: 0.00 Types: Cigarettes Quit date: 12/19/2017 Smokeless tobacco: Never Used Comment: less then a pack. Has smoked since she was 15. Alcohol use: No Drug use: Yes Comment: rare marijuana use Sexual activity: Yes Partners with: Male Review of Symptoms REVIEW OF SYSTEMS PAIN ASSESSMENT: Negative for pain, history of chronic pain, or current treatment for a chronic pain condition. GENERAL: No weight loss, malaise or fevers RESPIRATORY: Negative for cough, hemoptysis, wheezing, COPD, dyspnea or shortness of breath CARDIOVASCULAR: Negative for chest pain, leg swelling, hypertension, CHF or palpitations MUSCULOSKELETAL: Negative for pain, redness or swelling at surgical site. EXAM: BP 122/82 (BP Site: Left Arm, BP Position: Sitting, BP Cuff Size: Regular Adult) Pulse 88 Temp 37.2 ?C (99 ?F) (Tympanic) Resp 18 Wt 59.9 kg (132 lb) BMI 25.78 kg/m? General Appearance: Well appearing, alert, in no acute distress, well-hydrated, well nourished. and walks with cane, steady gait. Skin: Skin color, texture, turgor normal, no suspicious rashes or lesions. Neck: Supple, no adenopathy; thyroid symmetric, normal size, no bruits. Lungs: Lungs clear to auscultation. No wheezing, rhonchi, rales. Heart: RRR without murmur, gallop, or rubs. No ectopy. Extremities: Left foot surgical site healed, without redness or swelling. Component Latest Ref Rng AND Units 01/23/2018 Hemoglobin A1C (POCT) 4.2 - 5.6 % 7.4 (A) Health Maintenance List DILATED RETINAL EXAM due on 11/15/1965 DTAP,TDAP,TD(1 - Tdap) due on 11/15/1974 HPV EVERY 5 YEARS due on 11/15/1985 PAP EVERY 5 YEARS due on 06/22/2017 LDL CHOLESTEROL due on 11/04/2017 INFLUENZA(1) due on 01/27/2018 STATIN MED ADHERENCE due on 01/27/2018 DIABETES MED ADHERENCE due on 01/27/2018 HBA1C due on 02/10/2018 MAMMOGRAM due on 06/02/2018 DIABETIC FOOT EXAM due on 10/17/2018 ANNUAL PCP TEAM CHRONIC DISEASE VISIT due on 11/10/2018 BLOOD PRESSURE CONTROLLED due on 11/24/2018 URINE ALBUMIN:CREATININE RATIO due on 01/04/2019 COLORECTAL CANCER SCREENING,SEE MODIFIER due on 04/11/2021 ONE PNEUMOVAX PRIOR TO AGE 65 Completed HEPATITIS C SCREENING Completed ASSESSMENT/PLAN: 1. Type 2 diabetes mellitus with diabetic neuropathy, unspecified whether keno terminal operator insulin use (HCC) - ICD9: 250.60, 357.2, ICD10: E11.40 (primary diagnosis) improved control - Increase Basaglar to 18 units and Lispro to 6 units tid with meals. Detailed medication reconciliation completed and written out for patient. Meds not using were segregated from current active meds. - Blood glucose monitoring on a three times a day schedule - Follow up in 1 month, sooner should any other issues arise. - Discussed diabetic education issues of senior living diabetic complications, hypoglycemic symptoms, hyperglycemic symptoms and medications- side effects and need for compliance with patient. May consider adding oral meds on board in future. - BP goal of <130/80 - LDL goal of <100 - INSULIN GLARGINE (U-100) 100 UNIT/ML (3 ML) SUBCUTANEOUS PEN - INSULIN LISPRO (U-100) 100 UNIT/ML SUBCUTANEOUS PEN - HEMOGLOBIN A1C (POC) 2. Essential hypertension, benign - ICD9: 401.1, ICD10: I10 - good control - Continue current medication(s) - Encouraged dietary sodium restriction/DASH diet - Follow up in 1 month for BP recheck. - Goal of BP <130/80 - LISINOPRIL 30 MG TABLET 3. Hyperlipidemia with target LDL less than 100 - ICD9: 272.4, ICD10: E78.5 - to be determined upon return of lab results - Continue current dose of atorvastatin (Lipitor) 40 mg. - ATORVASTATIN 40 MG TABLET 4. Depression, unspecified depression type - ICD9: 311, ICD10: F32.9 - Patient wishes to discontinue antidepressant medications. Zoloft was decreased to 50 mg at some point and she was started on Wellbutrin XL. Will taper to DC Wellbutrin. This was written out in detail on AVS. - SE RTRALINE 50 MG TABLET - BUPROPION XL 150 MG TAB 5. Osteomyelitis of left foot, unspecified type (HCC) - ICD9: 730.27, ICD10: M86.9 Stable, on Vanc. To follow up with ID as scheduled. 6. Vitamin D deficiency - ICD9: 268.9, ICD10: E55.9 Rx refilled - ERGOCALCIFEROL (VITAMIN D2) 50,000 UNIT CAPSULE 7. Lichen planus - ICD9: 697.0, ICD10: L43.9 - Using topical steroid creams. During this patient visit I have spent approximately 60 minutes in counseling and/or education regarding medications and coordinating care. Anthony High, MSN COMMUNICATIONS PROGRAM MANAGER.CREDIT CONTROL ADMINISTRATOR Referring Provider: SELF [[id number]] Allergies As of Date: 01/23/2018 Noted Allergy Reaction PENICILLINS 01/28/2010 4 - Hives 7 - Swelling Comments: Updated 12/22/[address] Chaparrita Hidalgo PRAVACHOL (PRAVASTATIN SODIUM) 03/04/2010 5 - Intolerance Comments: Fatigue, loss of appetite. 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 Visit: Recheck [92] Cmt: was discharged from [place] Primary Visit Diagnosis:Type 2 diabetes mellitus with diabetic neuropathy, unspecified whether senior living insulin use (HCC) [E11.40] Other Visit Diagnoses:Essential hypertension, benign [I10] Hyperlipidemia with target LDL less than 100 [E78.5] Depression, unspecified depression type [F32.9] Osteomyelitis of left foot, unspecified type (HCC) [M86.9] Vitamin D deficiency [E55.9] Lichen planus [L43.9] Order(s):atorvastatin (LIPITOR) 40 mg tabletTake 1 tablet by mouth daily at bedtime.Disp: 90 tabletRfl: 1 lisinopril (ZESTRIL,PRINIVIL) 30 mg tabletTake 1 tablet by mouth once daily.Disp: 90 tabletRfl: 0 sertraline (ZOLOFT) 50 mg tabletTake 1 tablet by mouth once daily.Disp: 90 tabletRfl: 1 buPROPion XL (WELLBUTRIN XL) 150 mg 24 hr tabletTake one tablet every other day for one week, then every 3 days until gone, then stop.Disp: 7 tabletRfl: 0 insulin glargine (BASAGLAR KWIKPEN U-100 INSULIN) 100 unit/mL (3 mL) inpnInject 18 Units subcutaneously daily at bedtime.Disp: Rfl: insulin lispro (ADMELOG SOLOSTAR U-100 INSULIN) 100 unit/mL inpnInject 6 Units subcutaneously three times daily before meals.Disp: 5 PenRfl: 3 Insulin [place], Disposable, (PEN NEEDLES) 31 gauge x 1/4 ndleUse one needle with each insulin dose. 4/dayDisp: 100 EachRfl: 11 ergocalciferol, vitamin D2, (DRISDOL) 50,000 unit capsuleTake 1 capsule by mouth once each week.Disp: 12 capsuleRfl: 3 HEMOGLOBIN A1C (POC) [[id number]] Order #: [id number]. #:[id number] Prescriptions as of 01/23/2018 Sig: ATORVASTATIN 40 MG TABLET Take 1 tablet by mouth daily * LISINOPRIL 30 MG TABLET Take 1 tablet by mouth once d* SERTRALINE 50 MG TABLET Take 1 tablet by mouth once d* BUPROPION XL 150 MG TAB Take one tablet every other d* INSULIN GLARGINE (U-100) 100 * Inject 18 Units subcutaneousl* INSULIN LISPRO (U-100) 100 UN* Inject 6 Units subcutaneously* PEN NEEDLE, DIABETIC 31 GAUGE* Use one needle with each insu* ERGOCALCIFEROL (VITAMIN D2) 5* Take 1 capsule by mouth once * CLOPIDOGREL 75 MG TABLET Take 1 tablet by mouth once d* COMPOUNDED PRESCRIPTION Grab Bar Dx: AMLODIPINE 10 MG TABLET Take 1 tablet by mouth once d* BETAMETHASONE DIPROPIONATE 0.* Apply 1 application to affect* VANCOMYCIN 1 GRAM/200 ML IN D* Inject 200 mL intravenously q* DIPHENHYDRAMINE 25 MG TABLET Take 50 mg by mouth every 6 h* BLOOD SUGAR DIAGNOSTIC STRIPS Test blood sugar(s) 4 times d* LANCETS 28 GAUGE Test blood sugar(s) 4 times d* SIMETHICONE 125 MG CHEWABLE T* Take 1 tablet by mouth every * SUMATRIPTAN 50 MG TABLET 50mg by mouth as needed for m* ACETAMINOPHEN ER 650 MG TABLE* Take 2 tablets by mouth twice* OMEPRAZOLE 20 MG CAPSULE,GRABIEL* Take 1 capsule by mouth daily* BUSPIRONE 10 MG TABLET Take 1 tablet by mouth three * Problem List As Of Date 01/23/2018 Noted Resolved Stroke/Cerebrovascular Accident [I63.9] INVALID FOR* Lumbago-Sciatica due to Displacement of Lumbar *INVALID FOR* DDD (Degenerative Disc Disease), Lumbar [M51.36]INVALID FOR* Cannabis Abuse [F12.10] INVALID FOR* Lichen planus [L43.9] INVALID FOR* More... Lumbar facet arthropathy [M46.96] INVALID FOR* Essential hypertension, benign [I10] INVALID FOR* Priority: D More... Nasal obstruction [J34.89] INVALID FOR* Myofascial pain [M79.1] INVALID FOR* Diabetic nephropathy with proteinuria (HCC) [E1*INVALID FOR* Priority: C Hyperlipidemia with target LDL less than 100 [E*INVALID FOR* Priority: F More... History of cerebrovascular accident (CVA) with *INVALID FOR* More... 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 Diabetic ulcer of toe of left foot associated w*INVALID FOR* Priority: A More... Lumbar radiculopathy [M54.16] INVALID FOR* More... Gangrene (HCC) [I96] INVALID FOR*12/25/2017 Priority: E More... Wound abscess [T81.4XXA] INVALID FOR* More... Depression [F32.9] INVALID FOR* Priority: H More... Diabetes (HCC) [E11.9] INVALID FOR* Priority: B More... Tobacco abuse [Z72.0] INVALID FOR* Priority: G More... Abscess [L02.91] INVALID FOR*12/25/2017 More... Foot abscess, left [L02.612] INVALID FOR* Penicillin allergy [Z88.0] INVALID FOR* C. difficile diarrhea [A04.72] INVALID FOR*01/07/2018 More... Hypokalemia [E87.6] INVALID FOR*12/31/2017 More... Malnutrition of moderate degree (HCC) [E44.0] INVALID FOR*01/08/2018 More... Normocytic anemia [D64.9] INVALID FOR* More... Electrolyte imbalance [E87.8] INVALID FOR*01/08/2018 More... Prescriptions ordered this encounter Disp Refills Start End ATORVASTATIN 40 MG TABLET 90 t* 1 01/23/2018 02/22/2018 Route: ORAL Sig: Take 1 tablet by mouth daily at bedtime. LISINOPRIL 30 MG TABLET 90 t* 0 01/23/2018 02/22/2018 Route: ORAL Sig: Take 1 tablet by mouth once daily. SERTRALINE 50 MG TABLET 90 t* 1 01/23/2018 Route: ORAL Sig: Take 1 tablet by mouth once daily. BUPROPION XL 150 MG TAB 7 ta* 0 01/23/2018 Sig: Take one tablet every other day for one week, then every 3 days until gone, then stop. INSULIN GLARGINE (U-100) 100 UNIT/ML* 01/23/2018 Class: Med Update Route: SUBCUTANEOUS Sig: Inject 18 Units subcutaneously daily at bedtime. INSULIN LISPRO (U-100) 100 UNIT/ML S* 5 Pen 3 01/23/2018 Route: SUBCUTANEOUS Sig: Inject 6 Units subcutaneously three times daily before meals. PEN NEEDLE, DIABETIC 31 GAUGE X 1/4 100 * 11 01/23/2018 Sig: Use one needle with each insulin dose. 4/day ERGOCALCIFEROL (VITAMIN D2) 50,000 U* 12 c* 3 01/23/2018 Route: ORAL Sig: Take 1 capsule by mouth once each week. Medications Discontinued During This Encounter dicyclomine (BENTYL) 20 mg tablet 90 t* 5 11/20/2017 01/23/2018 Cmt: Med-sync patient. If too soon, we will put new RX on hold for next cycle. Sig: Take 1 tablet by mouth three times daily before meals. Disc: Discontinued by Patient sertraline (ZOLOFT) 100 mg tablet 30 t* 5 2017 01/23/2018 Route: ORAL Sig: Take 1 tablet by mouth once daily. Disc: Changing Therapy/Dosage Form insulin lispro (HUMALOG KWIKPEN) 100* 01/09/2018 01/23/2018 Class: Med Update Route: SUBCUTANEOUS Sig: Inject 5 Units subcutaneously w MEALS. Disc: Not on Formulary atorvastatin (LIPITOR) 40 mg tablet 30 t* 0 01/09/2018 01/23/2018 Class: Med Update Route: ORAL Sig: Take 1 tablet by mouth daily at bedtime. Disc: Reason for discontinue is not on file. lisinopril (ZESTRIL,PRINIVIL) 30 mg * 30 t* 0 01/10/2018 01/23/2018 Class: Print RX Route: ORAL Sig: Take 1 tablet by mouth once daily. Disc: Reason for discontinue is not on file. buPROPion XL (WELLBUTRIN XL) 150 mg * 30 t* 11 10/17/2017 01/23/2018 Route: ORAL Sig: Take 1 tablet by mouth once daily. Disc: Reason for discontinue is not on file. insulin glargine (BASAGLAR KWIKPEN U* 01/09/2018 01/23/2018 Class: Med Update Route: SUBCUTANEOUS Sig: Inject 17 Units subcutaneously daily at bedtime. Disc: Reason for discontinue is not on file. docusate sodium (COLACE) 100 mg caps* 01/09/2018 01/23/2018 Class: Med Update Route: ORAL Sig: Take 1 capsule by mouth twice daily. Disc: Course of therapy completed Insulin [place], Disposable, (PEN NE* 100 * 11 11/10/2017 01/23/2018 Sig: Use one needle with each insulin dose. 4/day Disc: Reason for discontinue is not on file. Disposition: Return in about 1 month (around 02/23/2018). Follow-up and Disposition History Recorded Encounter Status:Closed by ANTHONY HIGH CREDIT CONTROL ADMINISTRATOR on 01/23/18 PROGRESS Observed: 01/23/2018 Status: COMPLETED Source: [place] 1:[address] [facility] REPOSITORY O ID: [id number] Author: Anthony Renee (Public Administration Professor) Akbar Service: (none) Author Type: Nurse Practitioner Type: Progress Notes Filed: 01/23/2018 3:29 PM Note Text: Chief Complaint Patient presents with: Recheck: was discharged from [facility] Davina Green is a 62 year old female who presents here today for follow up discharge from [facility], [facility] 01/09/18- 01/18/18. Discharge Summary from [facility] reviewed, discharged on 01/09/18, Abscess/cellulitis, early osteomyelitis of left foot, S/P amputation 5th toe. Detailed Summary reviewed. She is here for routine medical follow up, large bag of medications. I'm so confused I don't know what I'm suppose to be taking. Since home from [facility], discharged on 01/18/18. States medications were sent in packets which are all completed now. She has Home Health Nurse from [facility], coming into the home twice a week, PICC line dressing changes and lab draw for Vanc trough. Patient reports administers the Vancomycin and does well helping her in the home. She states she does not have any pain specifically to her left foot and is able to be up and weight bear as tolerated. She tells me she has stopped smoking as of 6 weeks ago and reports she is now taking her diabetes seriously since toe was amputated. She has her insulins along with medications all here, needing refills on some meds. Following with Dr. Camp-Infectious Disease Dr. Garrett-Orth[facility] both in [place]. Apt's already scheduled. DM: She reports testing her sugars tid, did not bring her meter with her to visit. This morning FBS 191. Hospital course was complicated by c diff infection which patient reports has cleared. She did have bout of diarrhea this morning. Past medical history, appointments, medications, allergies reviewed. Previous Medical History PAST MEDICAL HISTORY Diagnosis Date - Anxiety - Benign hypertension 08/07/2015 - Cannabis abuse 02/23/2010 - Carotid artery disorder (HCC) Right sided - Carotid stenosis 03/11/2010 - Cervical cancer ([facility]) - CVA (cerebral infarction) 11/2009 L hemiparesis and decreased coordination - DDD (degenerative disc disease), lumbar 02/23/2010 - Diabetic nephropathy with proteinuria ([facility]) 03/18/2014 - Diabetic ulcer of toe of left foot associated with type 2 diabetes mellitus, limited to breakdown of skin ([facility]) 10/17/2017 - Environmental allergies - Essential hypertension, benign 06/22/2012 - 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 ([facility]) - Hyperlipidemia - Lichen planus 11/09/2010 - Lumbago-sciatica due to displacement of lumbar intervertebral disc 02/23/2010 - Lumbar radiculopathy 10/17/2017 left sciatica - PVD (peripheral vascular disease) ([facility]) 2018 - Spastic neurogenic bladder 05/14/2015 - Tobacco abuse - Type 2 diabetes mellitus with microalbuminuria, without long-term current use of insulin ([facility]) 05/08/2017 Previous Surgical History PAST SURGICAL HISTORY Procedure Laterality Date - AMPUTATION METATARSAL+TOE,SINGLE Left 12/11/2017 partial 5th toe - COLONOSCOP W/ OR W/O BRSH SPEC 04/11/2016 Colonoscopy - EGD W/O OR W/BRUSH/WASH 04/11/2016 EGD - IR VASCULAR ACCESS TEAM PICC INSERTION RADIO 12/26/2017 - LUMBAR OR CAUDAL EPIDURAL STEROID INJECTION 02/21/2011 - PAST SURGICAL HISTORY OF Exploratory surgery for cervical ca Family History FAMILY HISTORY Problem Relation Age of Onset - Coronary Artery Disease Father - Stroke Mother - Diabetes Maternal Grandmother Patient Allergies ALLERGIES Allergen Reactions - Lipitor [Atorvastat* Other: See Comments fatigue - Penicillins Hives, Swelling Updated 12/22/[address] Chaparrita Hidalgo - Pravachol [Pravasta* Intolerance Fatigue, loss of appetite. - Prozac [Fluoxetine * Mental Status Change sleepiness Current Medications Current Outpatient Prescriptions on File Prior to Visit: clopidogrel (PLAVIX) 75 mg tablet Take 1 tablet by mouth once daily. COMPOUNDED PRESCRIPTION [facility]b [facility] Dx: amLODIPine (NORVASC) 10 mg tablet Take 1 tablet by mouth once daily. atorvastatin (LIPITOR) 40 mg tablet Take 1 tablet by mouth daily at bedtime. lisinopril (ZESTRIL,PRINIVIL) 30 mg tablet Take 1 tablet by mouth once daily. insulin glargine (BASAGLAR KWIKPEN U-100 INSULIN) 100 unit/mL (3 mL) inpn Inject 17 Units subcutaneously daily at bedtime. insulin lispro (HUMALOG KWIKPEN) 100 unit/mL inpn Inject 5 Units subcutaneously w MEALS. docusate sodium (COLACE) 100 mg capsule Take 1 capsule by mouth twice daily. Betamethasone Dipropionate 0.05 % lotion Apply 1 application to affected area twice daily. vancomycin (VANCOCIN) 1 gram/200 mL in D5W Inject 200 mL intravenously q 24 HR for 25 days. diphenhydrAMINE (BENADRYL) 25 mg tablet Take 50 mg by mouth every 6 hours as needed for Itching/Rash. dicyclomine (BENTYL) 20 mg tablet Take 1 tablet by mouth three times daily before meals. sertraline (ZOLOFT) 100 mg tablet Take 1 tablet by mouth once daily. Insulin [place], Disposable, (PEN NEEDLES) 31 gauge x 1/4 ndle Use one needle with each insulin dose. 4/day blood sugar diagnostic (FREESTYLE LITE STRIPS) test strip Test blood sugar(s) 4 times daily. Dx: Type 2 DM - Uncontrolled E11.65 Insulin: Yes lancets (FREESTYLE LANCETS) 28 gauge misc Test blood sugar(s) 4 times daily. Dx: Type 2 DM - Uncontrolled E11.65 Insulin: Yes Simethicone (GAS RELIEF) 125 mg chewable tablet Take 1 tablet by mouth every 6 hours as needed. SUMAtriptan (IMITREX) 50 mg tablet 50mg by mouth as needed for migraine headache; may repeat every 2 hrs as needed for migraine(max 4/day and 9/mo) acetaminophen (TYLENOL ARTHRITIS PAIN) 650 mg CR tablet Take 2 tablets by mouth twice daily as needed for Pain. omeprazole (PRILOSEC) 20 mg capsule Take 1 capsule by mouth daily before breakfast. 1/2 hr before meal. buPROPion XL (WELLBUTRIN XL) 150 mg 24 hr tablet Take 1 tablet by mouth once daily. busPIRone (BUSPAR) 10 mg tablet Take 1 tablet by mouth three times daily. No current facility-administered medications on file prior to visit. Social History Social History Marital status: Spouse name: Years of education: Number of children: Social History Main Topics Smoking status: Former Smoker Packs/day: 1.00 Years: 0.00 Types: Cigarettes Quit date: 12/19/2017 Smokeless tobacco: Never Used Comment: less then a pack. Has smoked since she was 15. Alcohol use: No Drug use: Yes Comment: rare marijuana use Sexual activity: Yes Partners with: Male Review of Symptoms REVIEW OF SYSTEMS PAIN ASSESSMENT: Negative for pain, history of chronic pain, or current treatment for a chronic pain condition. GENERAL: No weight loss, malaise or fevers RESPIRATORY: Negative for cough, hemoptysis, wheezing, COPD, dyspnea or shortness of breath CARDIOVASCULAR: Negative for chest pain, leg swelling, hypertension, CHF or palpitations MUSCULOSKELETAL: Negative for pain, redness or swelling at surgical site. EXAM: BP 122/82 (BP Site: Left Arm, BP Position: Sitting, BP Cuff Size: Regular Adult) Pulse 88 Temp 37.2 ?C (99 ?F) (Tympanic) Resp 18 Wt 59.9 kg (132 lb) BMI 25.78 kg/m? General Appearance: Well appearing, alert, in no acute distress, well-hydrated, well nourished. and walks with cane, steady gait. Skin: Skin color, texture, turgor normal, no suspicious rashes or lesions. Neck: Supple, no adenopathy; thyroid symmetric, normal size, no bruits. Lungs: Lungs clear to auscultation. No wheezing, rhonchi, rales. Heart: RRR without murmur, gallop, or rubs. No ectopy. Extremities: Left foot surgical site healed, without redness or swelling. Component Latest Ref Rng AND Units 01/23/2018 Hemoglobin A1C (POCT) 4.2 - 5.6 % 7.4 (A) Health Maintenance List DILATED RETINAL EXAM due on 11/15/1965 DTAP,TDAP,TD(1 - Tdap) due on 11/15/1974 HPV EVERY 5 YEARS due on 11/15/1985 PAP EVERY 5 YEARS due on 06/22/2017 LDL CHOLESTEROL due on 11/04/2017 INFLUENZA(1) due on 01/27/2018 STATIN MED ADHERENCE due on 01/27/2018 DIABETES MED ADHERENCE due on 01/27/2018 HBA1C due on 02/10/2018 MAMMOGRAM due on 06/02/2018 DIABETIC FOOT EXAM due on 10/17/2018 ANNUAL PCP TEAM CHRONIC DISEASE VISIT due on 11/10/2018 BLOOD PRESSURE CONTROLLED due on 11/24/2018 URINE ALBUMIN:CREATININE RATIO due on 01/04/2019 COLORECTAL CANCER SCREENING,SEE MODIFIER due on 04/11/2021 ONE PNEUMOVAX PRIOR TO AGE 65 Completed HEPATITIS C SCREENING Completed ASSESSMENT/PLAN: 1. Type 2 diabetes mellitus with diabetic neuropathy, unspecified whether senior living insulin use (HCC) - ICD9: 250.60, 357.2, ICD10: E11.40 (primary diagnosis) improved control - Increase Basaglar to 18 units and Lispro to 6 units tid with meals. Detailed medication reconciliation completed and written out for patient. Meds not using were segregated from current active meds. - Blood glucose monitoring on a three times a day schedule - Follow up in 1 month, sooner should any other issues arise. - Discussed diabetic education issues of keno terminal operator diabetic complications, hypoglycemic symptoms, hyperglycemic symptoms and medications- side effects and need for compliance with patient. May consider adding oral meds on board in future. - BP goal of <130/80 - LDL goal of <100 - INSULIN GLARGINE (U-100) 100 UNIT/ML (3 ML) SUBCUTANEOUS PEN - INSULIN LISPRO (U-100) 100 UNIT/ML SUBCUTANEOUS PEN - HEMOGLOBIN A1C (POC) 2. Essential hypertension, benign - ICD9: 401.1, ICD10: I10 - good control - Continue current medication(s) - Encouraged dietary sodium restriction/DASH diet - Follow up in 1 month for BP recheck. - Goal of BP <130/80 - LISINOPRIL 30 MG TABLET 3. Hyperlipidemia with target LDL less than 100 - ICD9: 272.4, ICD10: E78.5 - to be determined upon return of lab results - Continue current dose of atorvastatin (Lipitor) 40 mg. - ATORVASTATIN 40 MG TABLET 4. Depression, unspecified depression type - ICD9: 311, ICD10: F32.9 - Patient wishes to discontinue antidepressant medications. Zoloft was decreased to 50 mg at some point and she was started on Wellbutrin XL. Will taper to DC Wellbutrin. This was written out in detail on AVS. - SE RTRALINE 50 MG TABLET - BUPROPION XL 150 MG TAB 5. Osteomyelitis of left foot, unspecified type (HCC) - ICD9: 730.27, ICD10: M86.9 Stable, on Vanc. To follow up with ID as scheduled. 6. Vitamin D deficiency - ICD9: 268.9, ICD10: E55.9 Rx refilled - ERGOCALCIFEROL (VITAMIN D2) 50,000 UNIT CAPSULE 7. Lichen planus - ICD9: 697.0, ICD10: L43.9 - Using topical steroid creams. During this patient visit I have spent approximately 60 minutes in counseling and/or education regarding medications and coordinating care. Anthony High, MSN COMMUNICATIONS PROGRAM MANAGER.CREDIT CONTROL ADMINISTRATOR OPERATIVE NO Observed: 01/23/2018 Status: COMPLETED Source: [place] 12:[address] [facility] REPOSITORY O ID: [id number] Author: Arnold Garrett Service: Podiatry Author Type: Physician Type: Operative Report Filed: 01/23/2018 8:27 AM Note Text: [facility] - Operative Report SURGEON: Arnold Garrett DPM PATIENT NAME: DAVINA GREEN CSN: [id number] DATE OF SURGERY: 12/25/2017 DATE OF : 1955 SEX/AGE: F/62 PATIENT TYPE: I HOSP [facility]: [facility] LOCATION: [id number] DATE OF SURGERY: 12/25/2017 SURGEON: Arnold Garrett DPM PREOPERATIVE DIAGNOSES: 1. Abscess, left foot. 2. Osteomyelitis, fifth metatarsal, left foot. 3. Peripheral arterial disease, left lower extremity. POSTOPERATIVE DIAGNOSES: 1. Abscess, left foot. 2. Osteomyelitis, fifth metatarsal, left foot. 3. Peripheral arterial disease, left lower extremity. PROCEDURE: 1. Incision and drainage, left foot abscess. 2. Bone biopsy fifth metatarsal, left foot. 3. Application of wound VAC, left foot. ANESTHESIA: General. ESTIMATED BLOOD LOSS: Minimal. FLUIDS: 300 milliliter of lactated Ringer's. SPECIMENS: Included bone biopsy, fifth metatarsal, left foot, and tissue and swab cultures of left foot abscess. COMPLICATION: None. SPECIAL MEDICATION: Clindamycin 900 mg IV given after cultures were obtained. CONDITION TO PACU: Stable and extubated. INDICATIONS: This 62-year-old female presents today for surgical management of a left foot abscess, status post left fifth toe amputation and suspected osteomyelitis of the fifth metatarsal, left foot. The patient underwent amputation of the fifth toe and distal fifth metatarsal recently and presents to [facility] for suspected postoperative abscess, osteomyelitis of the fifth metatarsal both of the left foot with peripheral arterial disease of the left lower extremity. In preoperative consultation, I discussed with the patient treatment options and prognosis. All questions were answered to apparent satisfaction. She opted to proceed with surgical intervention and I explained her details of procedure as well as medically reasonable risks, benefits, alternatives, prognosis, and potential complications. No guarantees were stated or implied as the outcome of surgery. DETAILS OF PROCEDURE: In the preoperative area, the patient was identified and greeted. The left leg was marked as the operative extremity and the operative consent was reviewed, signed, and dated. A preoperative huddle was performed in standard protocol. The patient was brought to the operating room and placed on operative table in supine position. General anesthesia was administered via LMA by the Anesthesia Department. All extremities were padded and protected. Previous skin sutures that were placed to the left foot status post partial fifth ray resection of the left foot were removed. The left foot, ankle, and lower leg were prepped and draped in usual sterile fashion. A preprocedure time-out was performed by all operating room personnel verifying the patient, operative extremity, and surgical procedures. Attention was directed to the lateral aspect of the left forefoot, where the previous surgical site for the left fifth toe and fifth metatarsal was incised and abscess purulence was drained from the surgical site of the left forefoot. Tissue and swab cultures were obtained. Debridement of all nonviable necrotic tissue was performed. The distal aspect of the fifth metatarsal was evaluated and bone biopsy was obtained with a rongeur from the distal aspect of the exposed fifth metatarsal. Swab cultures and bone biopsy were sent to microbiology for cultures and sensitivity. The wound was flushed with copious amounts of sterile saline utilizing gravity lavage system. Additional debridement was performed of nonviable necrotic tissue as needed. 900 mg of clindamycin was infused intravenously by the Anesthesia Department. Hemostasis was achieved at the surgical site. A wound VAC was applied to the open wound and surgical site of the left forefoot. Wound VAC was setup and noted to be functioning appropriately at standard settings. Dry sterile dressing was applied to the left foot and ankle. Capillary refill time was satisfactory to the remaining toes of the left foot. The patient was extubated successfully within the operating room by the Anesthesia Department. The patient was then transferred to PACU via gurney with vital signs stable. The patient tolerated the anesthesia and procedure well and left the operating room in stable medical condition. Arnold Garrett DPM Podiatry KEISHAG:modibeth /[id number] JOSE CARLOSTOUTREACH Observed: 01/23/2018 Status: COMPLETED Source: [place] 12:00 AM [facility] REPOSITORY Patient Outreach (FAMPWS) DAVINA GREEN ([id number]) 1955 F Date Time Provider Department 01/23/18 NAPOLEON PIZARRO (RN) FAMPWS During your visit today, we recorded the following information about you: Juarez Bender RN 01/24/2018 2:37 PM Signed PRIMARY CARE COORDINATION IN OFFICE VISIT WITH PCP Patient has been identified by name and date of . PCP Assessment/Plan: Reviewed PCP plan with patient using Teach Back ASSESSMENT/PLAN: 01/23/18 1. Type 2 diabetes mellitus with diabetic neuropathy, unspecified whether keno terminal operator insulin use (HCC) - ICD9: 250.60, 357.2, ICD10: E11.40 (primary diagnosis) improved control - Increase Basaglar to 18 units and Lispro to 6 units tid with meals. Detailed medication reconciliation completed and written out for patient. Meds not using were segregated from current active meds. - Blood glucose monitoring on a three times a day schedule - Follow up in 1 month, sooner should any other issues arise. - Discussed diabetic education issues of senior living diabetic complications, hypoglycemic symptoms, hyperglycemic symptoms and medications- side effects and need for compliance with patient. May consider adding oral meds on board in future. - BP goal of <130/80 - LDL goal of <100 - INSULIN GLARGINE (U-100) 100 UNIT/ML (3 ML) SUBCUTANEOUS PEN - INSULIN LISPRO (U-100) 100 UNIT/ML SUBCUTANEOUS PEN - HEMOGLOBIN A1C (POC) ? 2. Essential hypertension, benign - ICD9: 401.1, ICD10: I10 - good control - Continue current medication(s) - Encouraged dietary sodium restriction/DASH diet - Follow up in 1 month for BP recheck. - Goal of BP <130/80 - LISINOPRIL 30 MG TABLET ? 3. Hyperlipidemia with target LDL less than 100 - ICD9: 272.4, ICD10: E78.5 - to be determined upon return of lab results - Continue current dose of atorvastatin (Lipitor) 40 mg. - ATORVASTATIN 40 MG TABLET ? 4. Depression, unspecified depression type - ICD9: 311, ICD10: F32.9 - Patient wishes to discontinue antidepressant medications. Zoloft was decreased to 50 mg at some point and she was started on Wellbutrin XL. Will taper to DC Wellbutrin. This was written out in detail on AVS. - SE RTRALINE 50 MG TABLET - BUPROPION XL 150 MG TAB ? 5. Osteomyelitis of left foot, unspecified type (HCC) - ICD9: 730.27, ICD10: M86.9 Stable, on Vanc. To follow up with ID as scheduled. ? 6. Vitamin D deficiency - ICD9: 268.9, ICD10: E55.9 Rx refilled - ERGOCALCIFEROL (VITAMIN D2) 50,000 UNIT CAPSULE ? 7. Lichen planus - ICD9: 697.0, ICD10: L43.9 - Using topical steroid creams. Next Office Visit: 02/23/2018 Plan For Next Call: Medication Management-Insulin dose changes, Instruct and encourage DM Self Management skills, BS testing 3 times daily and prn, bring log, meter to next OV 02/23/18 C VNS 2 x week - Vancomycin Admin through PICC line, provides Atb administaration ID Dr. English f/u date (Pt states transportation via cab) Early symptom awareness, prevent complications and hospitalization Juarez Bender RN January 23, 2018 Allergies As of Date: 01/23/2018 Noted Allergy Reaction PENICILLINS 01/28/2010 4 - Hives 7 - Swelling Comments: Updated 12/22/[address] Chaparrita Hidalgo PRAVACHOL (PRAVASTATIN SODIUM) 03/04/2010 5 - Intolerance Comments: Fatigue, loss of appetite. 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 [4194] Cmt: DM Reason For Visit History Recorded Prescriptions as of 01/23/2018 Sig: ATORVASTATIN 40 MG TABLET Take 1 tablet by mouth daily * LISINOPRIL 30 MG TABLET Take 1 tablet by mouth once d* SERTRALINE 50 MG TABLET Take 1 tablet by mouth once d* BUPROPION XL 150 MG TAB Take one tablet every other d* INSULIN GLARGINE (U-100) 100 * Inject 18 Units subcutaneousl* INSULIN LISPRO (U-100) 100 UN* Inject 6 Units subcutaneously* PEN NEEDLE, DIABETIC 31 GAUGE* Use one needle with each insu* ERGOCALCIFEROL (VITAMIN D2) 5* Take 1 capsule by mouth once * CLOPIDOGREL 75 MG TABLET Take 1 tablet by mouth once d* COMPOUNDED PRESCRIPTION Grab Bar Dx: AMLODIPINE 10 MG TABLET Take 1 tablet by mouth once d* BETAMETHASONE DIPROPIONATE 0.* Apply 1 application to affect* VANCOMYCIN 1 GRAM/200 ML IN D* Inject 200 mL intravenously q* DIPHENHYDRAMINE 25 MG TABLET Take 50 mg by mouth every 6 h* BLOOD SUGAR DIAGNOSTIC STRIPS Test blood sugar(s) 4 times d* LANCETS 28 GAUGE Test blood sugar(s) 4 times d* SIMETHICONE 125 MG CHEWABLE T* Take 1 tablet by mouth every * SUMATRIPTAN 50 MG TABLET 50mg by mouth as needed for m* ACETAMINOPHEN ER 650 MG TABLE* Take 2 tablets by mouth twice* OMEPRAZOLE 20 MG CAPSULE,GRABIEL* Take 1 capsule by mouth daily* BUSPIRONE 10 MG TABLET Take 1 tablet by mouth three * Problem List As Of Date 01/23/2018 Noted Resolved Stroke/Cerebrovascular Accident [I63.9] INVALID FOR* Lumbago-Sciatica due to Displacement of Lumbar *INVALID FOR* DDD (Degenerative Disc Disease), Lumbar [M51.36]INVALID FOR* Cannabis Abuse [F12.10] INVALID FOR* Lichen planus [L43.9] INVALID FOR* More... Lumbar facet arthropathy [M46.96] INVALID FOR* Essential hypertension, benign [I10] INVALID FOR* Priority: D More... Nasal obstruction [J34.89] INVALID FOR* Myofascial pain [M79.1] INVALID FOR* Diabetic nephropathy with proteinuria (HCC) [E1*INVALID FOR* Priority: C Hyperlipidemia with target LDL less than 100 [E*INVALID FOR* Priority: F More... History of cerebrovascular accident (CVA) with *INVALID FOR* More... 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 Diabetic ulcer of toe of left foot associated w*INVALID FOR* Priority: A More... Lumbar radiculopathy [M54.16] INVALID FOR* More... Gangrene (HCC) [I96] INVALID FOR*12/25/2017 Priority: E More... Wound abscess [T81.4XXA] INVALID FOR* More... Depression [F32.9] INVALID FOR* Priority: H More... Diabetes (HCC) [E11.9] INVALID FOR* Priority: B More... Tobacco abuse [Z72.0] INVALID FOR* Priority: G More... Abscess [L02.91] INVALID FOR*12/25/2017 More... Foot abscess, left [L02.612] INVALID FOR* Penicillin allergy [Z88.0] INVALID FOR* C. difficile diarrhea [A04.72] INVALID FOR*01/07/2018 More... Hypokalemia [E87.6] INVALID FOR*12/31/2017 More... Malnutrition of moderate degree (HCC) [E44.0] INVALID FOR*01/08/2018 More... Normocytic anemia [D64.9] INVALID FOR* More... Electrolyte imbalance [E87.8] INVALID FOR*01/08/2018 More... Encounter Status:Closed by JUAREZ BENDER on 01/24/18 OPERATIVE NO Observed: 01/12/2018 Status: COMPLETED Source: [place] 12:[address] [facility] OTHER CAMPUS REPOSITORY O ID: [id number] Author: Arnold Garrett Service: Podiatry Author Type: Physician Type: Operative Report Filed: 01/12/2018 10:34 AM Note Text: [facility] - Operative Report SURGEON: Arnold Garrett DPM PATIENT NAME: DAVINA GREEN CSN: [id number] DATE OF SURGERY: 12/27/2017 DATE OF : 1955 SEX/AGE: F/62 PATIENT TYPE: I HOSP SVC: INTM LOCATION: [id number] DATE OF SURGERY: 12/27/2017 SURGEON: Arnold Garrett DPM PREOPERATIVE DIAGNOSES: 1. Surgical wound, left foot. 2. Osteomyelitis, fifth metatarsal, left foot. 3. Peripheral arterial disease, left foot. POSTOPERATIVE DIAGNOSES: 1. Surgical wound, left foot. 2. Osteomyelitis, fifth metatarsal, left foot. 3. Peripheral arterial disease, left foot. PROCEDURES: 1. Secondary wound closure, surgical wound, left foot. 2. Debridement osteomyelitis, fifth metatarsal, left foot. ANESTHESIA: General with local. ESTIMATED BLOOD LOSS: Less than 25 cc. FLUIDS: 200 milliliter of lactated Ringer's. SPECIMENS: Included debrided bone from fifth metatarsal left foot. COMPLICATION: None. SPECIAL MEDICATION: Per Anesthesia. CONDITION TO PACU: Stable and extubated. INDICATIONS: This 62-year-old female presents today for surgical management of a surgical wound that was previously debrided and abscess incised and drained for postoperative surgical infection and osteomyelitis of the fifth metatarsal. The patient was transferred from outside hospital for management of her left foot condition. The patient has been receiving IV antibiotics and local care of the surgical site infection while admitted at [facility]. She has progressed well on with antibiotic therapy and local care. She presents today for surgical management for secondary closure of the surgical wound and debridement of additional osteomyelitis of the fifth metatarsal. She had previously underwent a fifth toe amputation and resection of the fifth metatarsal head. I explained to her details of procedure as well as medically reasonable risks, benefits, alternatives, prognosis, and potential complications. No guarantees were stated or implied as the outcome of surgery. DETAILS OF PROCEDURE: In the preoperative area, the patient was identified and greeted. The left leg was marked as the operative extremity and the operative consent was reviewed, signed, and dated. Preoperative huddle was performed in standard fashion. The patient was brought to the operating room and placed on operative table in supine position. General anesthesia was administered via LMA by the Anesthesia Department. All extremities were padded and protected. The left foot, ankle, and lower leg were prepped and draped in usual sterile fashion and a preprocedure time- out was performed by all operative personnel verifying the patient, operative extremity, and surgical procedures. Attention was directed to the lateral aspect of the left forefoot, where an open wound from previous incision and drainage and debridement of surgical site infection was evaluated. The wound appeared to be stable. The wound was then debrided of any all nonviable necrotic tissue. The distal aspect of the exposed fifth metatarsal was noted to be possibly consistent with osteomyelitis. Debridement of the fifth metatarsal osteomyelitis was performed to healthy bleeding bone margins. The specimens were sent to microbiology for cultures and sensitivity. The wound was then copiously lavaged with gravity assisted lavage system approximately 3 to 4 liters of normal saline. Healthy bleeding tissue margins were noted. There were no additional purulent drainage or abscesses that were noted. The wound was again flushed with copious amounts of sterile saline. The tissue margins were able to be manually apposed without tension. At this point, it was elected to perform a secondary closure of the surgical wound. Wound margins were approximated without strangulation. Mobilization of some tissue was necessary to achieve satisfactory closure of the surgical wound. This is complicated with regard to the mobilization of the tissue to be able to achieve satisfactory closure. The skin was reapproximated with nylon suture. Local anesthesia was performed at the surgical site with 0.5% Marcaine plain. Xeroform gauze and a dry sterile dressing were applied to the left foot and ankle. Capillary refill time was satisfactory to the remaining toes of the left foot. The patient was extubated successfully within the operating room by the Anesthesia Department. The patient was then transferred to PACU via gurney with vital signs stable. The patient tolerated the anesthesia and procedure well and left the operating room in stable medical condition. Arnold Garrett DPM Podiatry JPG:modl /[id number] NURSING PROG Observed: 01/09/2018 Status: COMPLETED Source: [place] 4:[address] [facility] OTHER CAMPUS REPOSITORY [facility] ID: [id number] Author: Loli (Rn) INES Pimentel Service: Nursing Author Type: Registered Nurse Type: Nursing Progress Note Filed: 01/09/2018 4:52 PM Note Text: Nursing Progress Note Patient Name: Davina Green Patient Location: [id number]* Daily Note: DISCHARGE SUMMARY Patient to be discharged to [facility]. Pickup with [facility] scheduled for 1729. Discharge information reviewed with patient and 1x attempt tp call report to [facility]. No answer. Will try callback. Called and gave report to Mariya Chaidez at 1645 This note was completed by: Loli Pimentel RN PLAN OF CARE Observed: 01/09/2018 Status: COMPLETED Source: [place] 4:24 PM CLINIC OTHER CAMPUS REPOSITORY [facility] ID: [id number] Author: Akin Bush (Pharmacist) Service: Pharmacy Author Type: Pharmacist Type: Plan of Care Filed: 01/09/2018 4:24 PM Note Text: DISCHARGE MEDICATION REVIEW BY PHARMACY Patient Name: Davina Green Account #: Data Unavailable Admission Date: 12/21/2017 Date of Contact: January 09, 2018 Time of Contact: 4:24 PM Medication list was reviewed by a Pharmacist for drug interactions or drug related problems:Yes Below is a summary of pharmacist recommendations discussed with LIP: No Recommendations at this time from Discharge Medication List. TYSON ROLLINS January 09, 2018 4:24 PM Pager: 01/09/2018 4:24 PM Medication List START taking these medications atorvastatin 40 mg tablet Commonly known as: LIPITOR Take 1 tablet by mouth daily at bedtime. Betamethasone Dipropionate 0.05 % lotion Apply 1 application to affected area twice daily. docusate sodium 100 mg capsule Commonly known as: COLACE Take 1 capsule by mouth twice daily. lisinopril 30 mg tablet Commonly known as: ZESTRIL,PRINIVIL Take 1 tablet by mouth once daily. oxyCODONE IR 5 mg immediate release tablet Commonly known as: ROXICODONE Take 1 tablet by mouth every 6 hours as needed for up to 7 days. Earliest Fill Date: 01/09/18 vancomycin 1 gram/200 mL in D5W Commonly known as: VANCOCIN Inject 200 mL intravenously q 24 HR for 25 days. vancomycin 25 mg/mL Liqd Commonly known as: VANCOCIN Take 5 mL by mouth four times daily for 2 days. CHANGE how you take these medications insulin glargine 100 unit/mL (3 mL) Inpn Commonly known as: BASAGLAR KWIKPEN U-100 INSULIN Inject 17 Units subcutaneously daily at bedtime. What changed: ? how much to take ? Another medication with the same name was removed. Continue taking this medication, and follow the directions you see here. insulin lispro 100 unit/mL Inpn Commonly known as: HumaLOG KWIKPEN Inject 5 Units subcutaneously w MEALS. What changed: ? medication strength ? how much to take ? when to take this CONTINUE taking these medications acetaminophen 650 mg CR tablet Commonly known as: TYLENOL ARTHRITIS PAIN Take 2 tablets by mouth twice daily as needed for Pain. amLODIPine 10 mg tablet Commonly known as: NORVASC Take 1 tablet by mouth once daily. blood sugar diagnostic test strip Commonly known as: FREESTYLE LITE STRIPS Test blood sugar(s) 4 times daily. Dx: Type 2 DM - Uncontrolled E11.65 Insulin: Yes buPROPion XL 150 mg 24 hr tablet Commonly known as: WELLBUTRIN XL Take 1 tablet by mouth once daily. busPIRone 10 mg tablet Commonly known as: BUSPAR Take 1 tablet by mouth three times daily. dicyclomine 20 mg tablet Commonly known as: BENTYL Take 1 tablet by mouth three times daily before meals. diphenhydrAMINE 25 mg tablet Commonly known as: BENADRYL Insulin [place] (Disposable) 31 gauge x 1/4 Ndle Commonly known as: Pen [place] Use one needle with each insulin dose. 4/day lancets 28 gauge Misc Commonly known as: FREESTYLE LANCETS Test blood sugar(s) 4 times daily. Dx: Type 2 DM - Uncontrolled E11.65 Insulin: Yes omeprazole 20 mg capsule Commonly known as: PriLOSEC Take 1 capsule by mouth daily before breakfast. 1/2 hr before meal. PLAVIX 75 mg tablet Generic drug: clopidogrel sertraline 100 mg tablet Commonly known as: ZOLOFT Take 1 tablet by mouth once daily. Simethicone 125 mg chewable tablet Commonly known as: GAS RELIEF Take 1 tablet by mouth every 6 hours as needed. SUMAtriptan 50 mg tablet Commonly known as: IMITREX 50mg by mouth as needed for migraine headache; may repeat every 2 hrs as needed for migraine(max 4/day and 9/mo) STOP taking these medications alcohol swabs Padm Commonly known as: ALCOHOL WIPES lisinopril-hydrochlorothiazide 10-12.5 mg per tablet Commonly known as: PRINZIDE,ZESTORETIC mometasone 0.1 % cream Commonly known as: ELOCON naproxen 500 mg tablet Commonly known as: NAPROSYN Where to Get Your Medications Information about where to get these medications is not yet available Ask your nurse or doctor about these medications ? atorvastatin 40 mg tablet ? Betamethasone Dipropionate 0.05 % lotion ? docusate sodium 100 mg capsule ? insulin glargine 100 unit/mL (3 mL) Inpn ? insulin lispro 100 unit/mL Inpn ? lisinopril 30 mg tablet ? oxyCODONE IR 5 mg immediate release tablet ? vancomycin 1 gram/200 mL in D5W ? vancomycin 25 mg/mL Liqd CNDS Observed: 01/09/2018 Status: COMPLETED Source: [place] 2:56 PM CL[facility] OTHER CAMPUS REPOSITORY O ID: [id number] Author: Veronica Brambila MD Service: Hospital Medicine Author Type: Resident Type: Discharge Summaries Filed: 01/09/2018 4:58 PM Note Text: Attestation signed by Richard Temple at 01/11/2018 3:10 PM [facility] Attending Attestation I evaluated the patient and personally participated in their discharge. Please feel free to contact me with questions or concerns. Richard Temple MD [phone] (Phone) [phone] (Pager) Hospital Medicine Service Discharge Summary PATIENT NAME: Davina Green ADMISSION DATE: 12/21/2017 DISCHARGE DATE: January 09, 2018 [place] Attending: Richard Temple Length of Stay: 19 days Primary Diagnosis: (M86.172) Osteomyelitis of foot, left, acute (HCC) (primary encounter diagnosis) (L02.91) Abscess (E11.621, L97.521) Diabetic ulcer of toe of left foot associated with type 2 diabetes mellitus, limited to breakdown of skin (HCC) (E11.8, Z79.4) Type 2 diabetes mellitus with complication, with long-term current use of insulin ([facility]) (I10) Essential hypertension, benign (E78.5) Hyperlipidemia with target LDL less than 100 (Z72.0) Tobacco abuse (A04.72) C. difficile diarrhea (I73.9) PVD (peripheral vascular disease) ([facility]) (M54.16) Lumbar radiculopathy Secondary Diagnoses/ Problem List: Patient Active Hospital Problem List: Diabetic ulcer of toe of left foot associated with type 2 diabetes mellitus, limited to breakdown of skin ([facility]) (10/17/2017) Diabetes (HCC) (12/23/2017) Essential hypertension, benign (06/22/2012) Hyperlipidemia with target LDL less than 100 (03/18/2014) Tobacco abuse (12/23/2017) Lichen planus (11/09/2010) History of cerebrovascular accident (CVA) with residual deficit (04/20/2015) Normocytic anemia (01/03/2018) Reason for Hospitalization: Abscess after toe amputation/ Osteomyelitis Hospital Course/ Significant Findings/ Treatment Provided: Mrs Green is a 62 year old female with the PMH of diabetes, HTN, CVA who presented to [facility] with left foot pain due to left toe abscess after toe amputation. She has had a fifth toe amputation for gangrene, x-ray of the foot showed there is clinical concern for osteomyelitis, MRI has also been done, which showed a 3.5 cm encapsulated, peripherally enhancing fluid collection at the level of surgical resection at the lateral forefoot, possibly an abscess.?Adjacent abnormal signal and enhancement of the distal 15 mm of the remaining fifth metatarsal shaft is suspicious for early osteomyelitis, although reactive changes could have a similar MRI appearance. Therefore she was placed on antibiotic treatment vancomycin. During her hospitalization, she developed nonbloody diarrhea, diagnosis of C.diff was done after C.diff PCR tested positive, therefore room caution was performed and she was placed on antibiotics vancomycin. Before discharge, patient had complete resolution of her diarrhea. She also has lichen planus, where she uses bendryl for, during her hospitalization, this was changed to steroids to help decrease her itching and discomfort. , also developed one side facial swelling 2 days prior to discharge, its not tender, has no change in skin color or texture and not associated with respiratory distress, loss of sensation or numbness, therefore it was though to be positional vs allergic. Before discharge, it has been noted that this swelling was improving. Her blood sugar and blood pressure were well controlled during hospitalization by modifying her insulin regemin and SSI in addition to addition of lisinopril to her admission medications ( please refer to discharged meds for further information on the following medication) These are the labs that were done during her hospital stay: WBC (thou/cmm) Date Value 01/08/2018 11.34 (H) RBC (mil/cmm) Date Value 01/08/2018 3.57 (L) Hemoglobin (g/dL) Date Value 12/08/2017 12.6 HGB (g/dL) Date Value 01/08/2018 10.3 (L) Hematocrit (%) Date Value 01/08/2018 32.6 (L) MCV (fl) Date Value 01/08/2018 91.3 MCH (pg) Date Value 01/08/2018 28.9 MCHC (%) Date Value 01/08/2018 31.6 RDW-CV (%) Date Value 12/08/2017 14.1 Platelet Count (thou/cmm) Date Value 01/08/2018 478 (H) MPV (fl) Date Value 01/08/2018 9.4 Glucose (mg/dL) Date Value 01/08/2018 118 (H) BUN (mg/dL) Date Value 01/08/2018 21 (H) Creatinine (mg/dL) Date Value 01/08/2018 1.14 (H) Sodium (mEq/L) Date Value 01/08/2018 139 Potassium (mEq/L) Date Value 01/08/2018 3.9 Chloride (mEq/L) Date Value 01/08/2018 103 CO2 (mEq/L) Date Value 01/08/2018 29 Protein, Total (g/dL) Date Value 12/21/2017 7.1 Albumin (g/dL) Date Value 01/01/2018 2.2 (L) Calcium (mg/dL) Date Value 01/08/2018 8.4 (L) Alkaline Phosphatase (U/L) Date Value 12/21/2017 100 Bilirubin, Total (mg/dL) Date Value 12/21/2017 0.2 AST (U/L) Date Value 12/21/2017 14 ALT (U/L) Date Value 12/21/2017 14 Hep C Antibody IA (no units) Date Value 11/04/2016 Negative URINALYSIS pH Date Value Ref Range Status 09/24/2016 7.355 7.320 - 7.420 Final Specific [place], Ur Date Value Ref Range Status 12/22/2017 1.021 1.005 - 1.030 Final Glucose, Urine Date Value Ref Range Status 12/22/2017 NEGATIVE Negative mg/dL Final Bilirubin, Urine Date Value Ref Range Status 12/22/2017 NEGATIVE Negative Final Ketones, Urine Date Value Ref Range Status 12/22/2017 NEGATIVE Negative mg/dL Final Protein, Urine Date Value Ref Range Status 12/22/2017 300 (A) Negative mg/dL Final Urobilinogen, Urine Date Value Ref Range Status 12/22/2017 0.2 0.0 - 1.0 EU/dL Final WBC, Urine Date Value Ref Range Status 12/22/2017 0.4 0.0 - 5.0 /hpf Final Consulting Teams During Hospitalization: Hospital Medicine: House medicine Infectious Disease: Dr. Camp Condition on Discharge: Stable Medications on Discharge: Current Discharge Medication List START taking these medications oxyCODONE IR (ROXICODONE) 5 mg Take 5 mg by mouth every 6 hours as needed. Earliest Fill Date: 01/09/18 Qty: 20 tablet Refills: 0 Associated Diagnoses:Lumbar radiculopathy atorvastatin (LIPITOR) 40 mg Take 40 mg by mouth daily at bedtime. Qty: 30 tablet Refills: 0 lisinopril (ZESTRIL,PRINIVIL) 30 mg Take 30 mg by mouth once daily. Qty: 30 tablet Refills: 0 docusate sodium (COLACE) 100 mg Take 100 mg by mouth twice daily. Betamethasone Dipropionate 1 application Apply 1 application to affected area twice daily. vancomycin (VANCOCIN) 125 mg Take 125 mg by mouth four times daily. Qty: 40 mL Refills: 0 vancomycin (VANCOCIN) 1 g Inject 1 g intravenously q 24 HR. Qty: 5000 mL Refills: 0 CONTINUE these medications which have CHANGED insulin glargine (LANTUS SOLOSTAR, BASAGLAR KWIKPEN) 17 Units Inject 17 Units subcutaneously daily at bedtime. insulin lispro (HumaLOG KWIKPEN) 5 Units Inject 5 Units subcutaneously w MEALS. CONTINUE these medications which have NOT CHANGED diphenhydrAMINE (BENADRYL) 50 mg Take 50 mg by mouth every 6 hours as needed for Itching/Rash. clopidogrel (PLAVIX) 75 mg Take 75 mg by mouth once daily. sertraline (ZOLOFT) 100 mg Take 100 mg by mouth once daily. Qty: 30 tablet Refills: 5 omeprazole (PriLOSEC) 20 mg Take 20 mg by mouth daily before breakfast. 1/2 hr before meal. Qty: 30 capsule Refills: 11 Associated Diagnoses:Chronic gastritis with bleeding, unspecified gastritis type buPROPion XL (WELLBUTRIN XL) 150 mg Take 150 mg by mouth once daily. Qty: 30 tablet Refills: 11 amLODIPine (NORVASC) 10 mg Take 10 mg by mouth once daily. Qty: 90 tablet Refills: 3 busPIRone (BUSPAR) 10 mg Take 10 mg by mouth three times daily. Qty: 270 tablet Refills: 3 dicyclomine (BENTYL) 20 mg tablet Take 1 tablet by mouth three times daily before meals. Qty: 90 tablet Refills: 5 Comments: Med-syn patient. If too soon, we will put new RX on hold for next cycle. Insulin [place], Disposable, (PEN NEEDLES) 31 gauge x 1/4 ndle Use one needle with each insulin dose. 4/day Qty: 100 Each Refills: 11 Associated Diagnoses:Diabetic ulcer of toe of left foot associated with type 2 diabetes mellitus, limited to breakdown of skin (HCC) blood sugar diagnostic (FREESTYLE LITE STRIPS) test strip Test blood sugar(s) 4 times daily. Dx: Type 2 DM - Uncontrolled E11.65 Insulin: Yes Qty: 150 Strip Refills: 11 Associated Diagnoses:Diabetic ulcer of toe of left foot associated with type 2 diabetes mellitus, limited to breakdown of skin (HCC); Type 2 diabetes mellitus with peripheral vascular disease (HCC) lancets (FREESTYLE LANCETS) 28 gauge misc Test blood sugar(s) 4 times daily. Dx: Type 2 DM - Uncontrolled E11.65 Insulin: Yes Qty: 1 Each Refills: 11 Associated Diagnoses:Diabetic ulcer of toe of left foot associated with type 2 diabetes mellitus, limited to breakdown of skin (HCC); Type 2 diabetes mellitus with peripheral vascular disease (HCC) Simethicone 125 mg Take 125 mg by mouth every 6 hours as needed. Qty: 120 tablet Refills: 11 SUMAtriptan (IMITREX) 50 mg tablet 50mg by mouth as needed for migraine headache; may repeat every 2 hrs as needed for migraine(max 4/day and 9/mo) Qty: 9 tablet Refills: 5 Associated Diagnoses:Intractable migraine without status migrainosus, unspecified migraine type acetaminophen 1,300 mg Take 1,300 mg by mouth twice daily as needed for Pain. Qty: 120 tablet Refills: 11 Associated Diagnoses:DDD (degenerative disc disease), lumbar; Lumbar facet arthropathy (HCC) STOP taking these medications mometasone (ELOCON) 1 application Comments: Reason for Stopping: alcohol swabs 1 application Comments: Reason for Stopping: naproxen (NAPROSYN) 500 mg Comments: Reason for Stopping: lisinopril-hydrochlorothiazide (PRINZIDE,ZESTORETIC) 1 tablet Comments: Reason for Stopping: Pending Test Results: No pending results. Disposition: Long-Term Facility Discharge Instructions: Please Follow up with Infectious disease: / PCP: ( Advise to do iron studies to investigate etiology behind her anemia)/ Podiatry: . Make sure you complete your medication regimen. Follow-up Appointments: Follow Up with PCP: Ivy Jimenez III MD Future Appointments Date Time Provider Department Center 01/23/2018 10:40 AM Ivy Jimenez III [facility]AMPWS [facility] 01/30/2018 9:00 AM Avi Camp [id number] [facility] AVI IBANEZ 02/06/2018 10:15 AM Arnold Garrett [id number] [facility] Follow Up Appointments Follow-Up Appointment When: In 2 weeks Avi Camp [phone] [place] [address] [facility] [id number] PCP Requested Referral Follow-Up Appointment Podiatry When: In 1 week Arnold Garrett [phone] [place] [address] [facility] [id number] PCP Requested Referral Follow-Up Appointment With: PCP Dr. [place] When: In 1 week SIGNATURE: Veronica Brambila MD PATIENT NAME: Davina Geren DATE: January 09, 2018 TIME: 2:56 PM PAGER/CONTACT #: [phone] CASE MANAGEM Observed: 01/09/2018 Status: COMPLETED Source: [place] 2:31 PM CLINIC OTHER [place] REPOSITORY HNO ID: [id number] Author: Brisa (Rn) INES Fierro Service: Care Management Author Type: Registered Nurse Type: Care Mgt Progress Note Filed: 01/09/2018 2:32 PM Note Text: CARE MANAGEMENT PROGRESS NOTE SERVICE DATE: 01/09/2018 SERVICE TIME: 2:31 PM LOS: 19 days Needs Prior to Discharge: To Be Determined Precert obtained. HM notified. Awaiting discharge orders. [facility] transporting patient via WC ambulette at 5:30 pm. Patient aware. SIGNATURE: Brisa Fierro RN PATIENT NAME: Davina Green DATE: January 09, 2018 TIME: 2:31 PM PAGER/CONTACT #: [phone] CONSULT PROG Observed: 01/09/2018 Status: COMPLETED Source: [place] 12:[address] [facility] OTHER [place] REPOSITORY HNO ID: [id number] Author: Avi Camp Service: Infectious Disease Author Type: Physician Type: Consult Progress Note Filed: 01/09/2018 1:00 PM Note Text: 01/09/2018 12:51 PM Infectious Disease Afebrile. Had sutures removed from foot 01/08. Still some pain and tenderness of lateral foot with palpation. Small area of incision opening as per [facility] note 01/08. Still waiting for insurance precert for F Vanc trough 14.8. Recent Labs 01/08/18 0945 WBC 11.34* HB 10.3* HCT 32.6* PLT 478* NEUTNUM 6.94* CREAT 1.14* Imp: Diabetic foot ulcer Osteomyelitis of left foot, S epidermidis- 5th metatarsal. Abscess left foot C diff. Rec: Continue iv vanco to 01/30 at [facility]. Weekly labs as ordered. ID FU 2-3 weeks. Check ESR and CRP in am. Continue po vanco to 01/11. Avi Camp MD GLUCOSE METER Collected: 01/09/2018 Status: F Source: [facility] 11:25 AM HEALTH SYSTEM REPOSITORY TYPE CODE TESTS RESULT OUT OF REFERENCE UNITS RANGE LAB GLUBL(LOINC 70-99 mg/dL ) High Glucose Meter 139 Result Comment: RN NOTIFIED Performed By: #### GLMET #### [facility] [address] [place] [id number] PROGRESS Observed: 01/09/2018 Status: COMPLETED Source: [place] 11:06 AM CLINIC OTHER CAMPUS REPOSITORY HNO ID: [id number] Author: Veronica Brambila MD Service: Hospital Medicine Author Type: Resident Type: Progress Notes Filed: 01/09/2018 12:26 PM Note Text: Attestation signed by Richard Temple at 01/11/2018 3:09 PM House Medicine Service Attending Attestation I evaluated the patient and personally participated in the rico components. 62 yo female with hx of HTN, dyslipidemia, CVA with residual left hemiparesis, PAD (carotid stenosis), DM with nephropathy and neuropathy, allergic rhinits, DJD spine/chronic low back pain, neurogenic bladder, depression, anxiety, and marijuana/tobacco use, s/p recent admission for left diabetic foot ulcer s/p angioplasty and partial 5th ray amputation, admitted now with persistent infection/acute osteomyelitis, s/p 5th metatarsal amputation/debridement; hospital course complicated by C. diff. HX: No events overnight; no new complaints. ANxious for discharge to [facility] to complete antibiotic course. PE: BP 98/60 Pulse 93 Temp 37.5 ?C (99.5 ?F) (Oral) Resp 16 Ht 152.4 cm (5') Wt 56.7 kg (125 lb) SpO2 96% BMI 24.41 kg/m? . WD, WN, NAD. RRR with nl s1 and s2 and no murmurs. LCTAB without crackles, wheezes, or rhonchi. Abdomen soft, NT, ND without masses or HSM. No peripheral edema. s/p left 5th ray amputation; dressing C/D/I. Vanc 14.8. BG 158, 136, 114, 145, 122. MDM: Continue vancomycin until 01/30 per ID. Discharge to [facility] today. Richard Temple MD 01/11/2018 3:07 PM SERVICE DATE: 01/09/2018 SERVICE TIME: 11:06 AM HOSPITAL MEDICINE PROGRESS NOTE SUBJECTIVE 62 year old female with PMH of diabetes, HTN, CVA presented with left foot pain due to left toe abcess since amputation. ? - Patient facial swelling has improved. -?Patient reports pain at the site of amputation, because of the removal of the sutures yesterday. Pain is graded as 4/10 - Vitals are stable. - Patient is awaiting for replacement. - Patient reports no overnight events OBJECTIVE BP 116/63 Pulse 95 Temp (Src) 98.2 (Oral) Resp 16 Ht 5' 0 (1.52m) Wt 125 lb (56.7kg) SpO2 95% BMI 24.41 kg/(m2). Physical Exam Performed: GENERAL: GENERAL APPEARANCE NCCC: well appearing, alert and in no acute distress HEART: HEART CCF: regular rate and rhythm, no murmer, gallop or rub, normal, S1, S2, no lifts, heaves, or thrills, PMI not displaced LUNGS: LUNGS CCF: clear to percussion and auscultation and no rales ABDOMEN: ABDOMEN: Soft, nontender, bowel sounds normal, no palpable organomegaly, no bruits. EXTREMITY: EXTREMITY EXAM: Normal exam of the extremities. No clubbing, cyanosis, or edema.Amputated toe has adequate dressing, dressing is clean. Normal temperature, no signs of infection. SKIN: left sided facial swelling.No erythema or abnormal discoloration over the swollen area. ?The remainder of the physical exam is noncontributory. Lines, Drains, and Airways Line Central Line Single Lumen 12/26/17 1421 Peripherally Inserted (PICC) Right Arm 4.0 Omani 13 days Reviewed lines, drains, airways. Will discuss with nurse and discontinue until discharge Medications: Current Facility-Administered Medications: insulin glargine 17 Units pen (long acting) (LANTUS SOLOSTAR, BASAGLAR KWIKPEN) 17 Units SUBCUTANEOUS AT BEDTIME Brit (Daniel) Kann 17 Units at 01/08/182041 Betamethasone Dipropionate 0.05 % lotion TOPICAL BID Emperatriz (Res) Apollo vancomycin iv piggyback 1 g in D5W 200 mL (VANCOCIN) 1 g INTRAVENOUS q 24 HR Emperatriz (Res) Apollo Last Rate: 200 mL/hr at 01/08/182040 1 g at 01/08/182040 clopidogrel 75 mg tab(s) (PLAVIX) 75 mg ORAL DAILY Emperatriz (Res) Apollo 75 mg at 01/09/18 09 oxyCODONE IR 5 mg tab(s) (ROXICODONE) 5 mg ORAL q 4 H PRN Danielle Slaughter Afia 5 mg at 01/09/18 0104 oxyCODONE IR 10 mg tab(s) (ROXICODONE) 10 mg ORAL q 4 H PRN Danielle Slaughter Afia 10 mg at 01/09/18 0635 vancomycin 125 mg oral liquid (VANCOCIN) 125 mg ORAL QID Avi Jimmie Bollin 125 mg at 01/09/18 0906 0.9% NaCl 10 mL 10 mL INTRAVENOUS q 12 H Caitlyn Hidalgo 10 mL at 01/09/18 0900 0.9% NaCl 20 mL 20 mL INTRAVENOUS PRN Caitlyn Hidalgo 20 mL at 12/30/17 1243 enoxaparin 40 mg injection (LOVENOX) 40 mg SUBCUTANEOUS DAILY Brandon (Res) Quinn 40 mg at 01/09/18 0906 ondansetron 4 mg tab(s) (ZOFRAN) 4 mg ORAL q 6 H PRN Brandon (Res) Quinn 4 mg at 12/30/17 0920 Or ondansetron (PF) 4 mg injection (ZOFRAN) 4 mg INTRAVENOUS q 6 H PRN Brandon (Res) Quinn 4 mg at 12/25/17 1922 docusate sodium 100 mg cap(s) (COLACE) 100 mg ORAL BID Brandon (Res) Quinn 100 mg at 12/29/17 2154 acetaminophen 325 mg tab(s) (TYLENOL) 325 mg ORAL q 4 H PRN Brandon (Res) Quinn 325 mg at 01/05/[address] 40 mg tab(s) (PROTONIX) 40 mg ORAL DAILY (6 AM) Brandon (Res) Quinn 40 mg at 01/09/18 0454 lisinopril 30 mg tab(s) (ZESTRIL,PRINIVIL) 30 mg ORAL DAILY Emma (Res) Boufford 30 mg at 01/09/18 09 buPROPion XL 150 mg tab(s) (WELLBUTRIN XL) 150 mg ORAL DAILY Casey (Res) MD Remigio 150 mg at 01/09/18 09 sertraline 100 mg tab(s) (ZOLOFT) 100 mg ORAL DAILY Casey (Res) MD Remigio 100 mg at 01/09/18905 fluocinonide 0.05 % (LIDEX) TOPICAL DAILY Csaey (Res) MD Remigio insulin lispro pen (rapid acting) (HumaLOG KWIKPEN) SUBCUTANEOUS w MEALS Quin (Res) Sharkhatunyan 1 Units at 01/08/18 1247 insulin lispro 5 Units pen (rapid acting) (HumaLOG KWIKPEN) 5 Units SUBCUTANEOUS w MEALS Emma (Res) Bou[place]ord 5 Units at 01/09/18 09 atorvastatin 40 mg tab(s) (LIPITOR) 40 mg ORAL AT BEDTIME Emma (Res) [place] 40 mg at 01/08/18 2041 diphenhydrAMINE 25 mg (BENADRYL) 25 mg ORAL q 6 H PRN Emma (Res) [place] 25 mg at 01/09/18 0635 amLODIPine 10 mg tab(s) (NORVASC) 10 mg ORAL DAILY Quin (Res) Sharkhatunyan 10 mg at 01/09/18 0906 dextrose 40 % 15 g 15 g ORAL PRN Quin (Res) Sharkhatunyan Or glucagon 1 mg injection (GLUCAGEN) 1 mg INTRAMUSCULAR PRN Quin (Res) Sharkhatunyan Or dextrose 50% in water 25 mL syringe 12.5 g INTRAVENOUS PRN Quin (Res) Sharkhatunyan CARE COORDINATION: No Patient Care Coordination Note on file. ASSESSMENT AND PLAN Assessment AND Plan, Hosp Problems our Service Addressed Cardiovascular Hyperlipidemia with target LDL less than 100 -atorvastatin 40mg Essential hypertension, benign -continue home lisinopril and home amlodipine - Blood pressure has been stable so far -follow BP's Pulmonary Tobacco abuse -smoking cessation encouraged Endocrinology * Diabetic ulcer of toe of left foot associated with type 2 diabetes mellitus, limited to breakdown of skin ([facility]) Diabetic Foot Ulcer with Surgical Site Infection s/p left 5th digit amputation -? IANDD 12/25 done - Debridement done, 5th metatarsal, left foot -Secondary closure, surgical wound, left foot done -wound culture sent , showed no growth -blood culture showed no growth -Culture bone 5th metatarsal showed no anaerobes -wound care - Roxicodone and Tylenol PRN ID recs-Vanc 750 mg q24h - With osteomyelitis, Staph epidermidis. Continue ABx for 6 weeks total for osteo - oxycodone prn pain -Vascular surgery recs Cont management per primary team - Wound vac removed yesterday - Vanc per ID/ vancomycin iv 1g in D5W 200ml, check levels 1/2 hour before 4th dose, continue until 01/30/2018 - ABIs Rt leg 0.9 ,left side 0.74 left leg has moderate arterial disease. - Unlikely to need vascular intervention at this time -vascular surgery signed off Diabetes ([facility]) -A1C 14.5% from October 2017 - Insulin has been increased to 17 units. -SSI -monitor blood glucose level. -Nurse reported that patient snacks after dinner each night by having Jose A crackers, peanut butter, orange juice) then she wake up early in the morning to have some Spirit before breakfast. -diabetic education Hematology Normocytic anemia Assessment: Last CBC showed Hb=10.5 and MVC of 90.7. PLAN: - F/u in an outpatient setting and iron studies should be assessed. Dermatology Lichen planus - steroids have been given Other History of cerebrovascular accident (CVA) with residual deficit CVA and Carotid Stenosis -plavix Medication and Non-Pharmacologic VTE Prophylaxis/Anticoagulants Anticoagulant AND Antiplatelet Medications Start Dose Route Frequency Ordered Stop 01/02/18 0900 clopidogrel 75 mg tab(s) (PLAVIX) 75 mg ORAL DAILY 01/01/18 1644 -- 12/26/17 0900 enoxaparin 40 mg injection (LOVENOX) (Medical At Risk ) 40 mg SUBCUTANEOUS DAILY 12/25/17 180 -- 12/27/172229 pneumatic compression stockings (mt,oh) 12/25/171814 vte pharmacologic prophylaxis contraindicated (mt,oh) 12/25/171814 pneumatic compression stockings (mt,oh) 12/21/172144 pneumatic compression stockings (mt,ak) 12/21/172144 activity - mobilize patient (mt,ak) VTE Prophylaxis: VTE prophylaxis appropriate Plan of care discussed with: Attending SIGNATURE: Veronica Brambila MD PATIENT NAME: Davina Green DATE: January 09, 2018 TIME: 11:06 AM PAGER/CONTACT #: [phone] VANCOMYCIN,TROUGH Collected: Status: F Source: [place] 01/08/2018 7:45 PM [facility] REPOSITORY TYPE CODE TESTS RESULT OUT OF RANGE REFERENCE UNITS LAB VANCT(LOINC 10.0-20.0 mg/L ) 14.8 Vancomycin,T rough Performed By: #### VANCT #### [place] [id number] PROGRESS Observed: 01/08/2018 Status: COMPLETED Source: [place] 6:05 PM CLINIC OTHER CAMPUS REPOSITORY HNO ID: [id number] Author: Veronica Brambila MD Service: Hospital Medicine Author Type: Resident Type: Progress Notes Filed: 01/08/2018 6:07 PM Note Text: Attestation signed by Richard Temple at 01/08/2018 6:24 PM House Medicine Service Attending Attestation I evaluated the patient and personally participated in the rico components. 62 yo female with hx of HTN, dyslipidemia, CVA with residual left hemiparesis, PAD (carotid stenosis), DM with nephropathy and neuropathy, allergic rhinits, DJD spine/chronic low back pain, neurogenic bladder, depression, anxiety, and marijuana/tobacco use, s/p recent admission for left diabetic foot ulcer s/p angioplasty and partial 5th ray amputation, admitted now with persistent infection/acute osteomyelitis, s/p 5th metatarsal amputation/debridement; hospital course complicated by C. difficile colitis. HX: No events overnight; no new complaints. Anxious for discharge to rehab. PE: BP 103/67 Pulse 97 Temp 37.3 ?C (99.1 ?F) (Oral) Resp 18 Ht 152.4 cm (5') Wt 56.7 kg (125 lb) SpO2 98% BMI 24.41 kg/m? . WD, WN, NAD. RRR with nl s1 and s2 and no murmurs. LCTAB without crackles, wheezes, or rhonchi. Abdomen soft, NT, ND without masses or HSM. No peripheral edema. s/p left 5th ray amputation; dressing C/D/I. BG 151, 128, 150, 152, 158. MDM: Continue vancomycin per ID. Discharge planning; eventual discharge to [facility], awaiting insurance prior authorization. Richard Temple MD 01/08/2018 6:20 PM SERVICE DATE: 01/08/2018 SERVICE TIME: 6:05 PM HOSPITAL MEDICINE PROGRESS NOTE SUBJECTIVE 62 year old female with PMH of diabetes, HTN, CVA presented with left foot pain due to left toe abcess since amputation. ? - Patient facial swelling is still the same.She denies any pain, loss of sensation, difficulty breathing or visual/hearing impairment. We think it might positional vs allergic. Therefore we just observe - Patient reports pain at the site of amputation, pain graded as 4/10. Pain medication are controlling the medication well. - Vitals are stable. -Patient reports total resolution of diarrhea. - Patient doesn't report any dysuria, hematuria or pain while urination. - Patient is awaiting for replacment - Patient is still on steroids to help with itching due to lichen planus. - Patient reports no overnight events. OBJECTIVE BP 103/67 Pulse 97 Temp (Src) 99.1 (Oral) Resp 18 Ht 5' 0 (1.52m) Wt 125 lb (56.7kg) SpO2 98% BMI 24.41 kg/(m2). Physical Exam Performed: GENERAL: GENERAL APPEARANCE NCCC: well appearing, alert and in no acute distress HEART: HEART CCF: regular rate and rhythm, no murmer, gallop or rub, normal, S1, S2, no lifts, heaves, or thrills, PMI not displaced LUNGS: LUNGS CCF: clear to percussion and auscultation and no rales ABDOMEN: ABDOMEN: Soft, nontender, bowel sounds normal, no palpable organomegaly, no bruits. EXTREMITY: EXTREMITY EXAM: Normal exam of the extremities. No clubbing, cyanosis, or edema.Amputated toe has adequate dressing, dressing is clean. Normal temperature, no signs of infection. SKIN: left sided facial swelling.No erythema or abnormal discoloration over the swollen area. The remainder of the physical exam is noncontributory. Lines, Drains, and Airways Line Central Line Single Lumen 12/26/17 1421 Peripherally Inserted (PICC) Right Arm 4.0 Omani 13 days Reviewed lines, drains, AND airways. Need to be continued untill discharge Medications: Reviewed Current Facility-Administered Medications: insulin glargine 17 Units pen (long acting) (LANTUS SOLOSTAR, BASAGLAR KWIKPEN) 17 Units SUBCUTANEOUS AT BEDTIME Brit Mathias 17 Units at 01/07/18 2106 Betamethasone Dipropionate 0.05 % lotion TOPICAL BID Emperatriz (Juan J Bustillos vancomycin iv piggyback 1 g in D5W 200 mL (VANCOCIN) 1 g INTRAVENOUS q 24 HR Emperatriz (Juan J Bustillos Last Rate: 200 mL/hr at 01/07/18 2108 1 g at 01/07/18 2108 clopidogrel 75 mg tab(s) (PLAVIX) 75 mg ORAL DAILY Emperatriz (Juan J Phippsik 75 mg at 01/08/18 0825 oxyCODONE IR 5 mg tab(s) (ROXICODONE) 5 mg ORAL q 4 H PRN Danielle Slaughter Afia oxyCODONE IR 10 mg tab(s) (ROXICODONE) 10 mg ORAL q 4 H PRN Danielle Slaughter Afia 10 mg at 01/08/18 1402 vancomycin 125 mg oral liquid (VANCOCIN) 125 mg ORAL QID Avi Samuel Bollin 125 mg at 01/08/18 1725 0.9% NaCl 10 mL 10 mL INTRAVENOUS q 12 H Caitlyn Hidalgo 10 mL at 01/08/18 0829 0.9% NaCl 20 mL 20 mL INTRAVENOUS PRN Caitlyn Hidalgo 20 mL at 12/30/17 1243 enoxaparin 40 mg injection (LOVENOX) 40 mg SUBCUTANEOUS DAILY Brandon (Res) Quinn 40 mg at 01/08/18 0825 ondansetron 4 mg tab(s) (ZOFRAN) 4 mg ORAL q 6 H PRN Brandon (Res) Quinn 4 mg at 12/30/17 0920 Or ondansetron (PF) 4 mg injection (ZOFRAN) 4 mg INTRAVENOUS q 6 H PRN Brandon (Res) Quinn 4 mg at 12/25/17 192 docusate sodium 100 mg cap(s) (COLACE) 100 mg ORAL BID Brandon (Res) Quinn 100 mg at 12/29/17 2154 acetaminophen 325 mg tab(s) (TYLENOL) 325 mg ORAL q 4 H PRN Brandon (Res) Quinn 325 mg at 01/05/[address] 40 mg tab(s) (PROTONIX) 40 mg ORAL DAILY (6 AM) Brandon (Res) Quinn 40 mg at 01/08/18 0524 lisinopril 30 mg tab(s) (ZESTRIL,PRINIVIL) 30 mg ORAL DAILY Emma (Res) Bou[place] 30 mg at 01/08/18 0825 buPROPion XL 150 mg tab(s) (WELLBUTRIN XL) 150 mg ORAL DAILY Casey (Res) MD Remigio 150 mg at 01/08/18 08 sertraline 100 mg tab(s) (ZOLOFT) 100 mg ORAL DAILY Casey (Res) MD Remigio 100 mg at 01/08/18 08 fluocinonide 0.05 % (LIDEX) TOPICAL DAILY Casey (Res) MD Remigio insulin lispro pen (rapid acting) (HumaLOG KWIKPEN) SUBCUTANEOUS w MEALS Quin (Res) Sharkhatunyan 1 Units at 01/08/18 1247 insulin lispro 5 Units pen (rapid acting) (HumaLOG KWIKPEN) 5 Units SUBCUTANEOUS w MEALS Emma (Res) [place] 5 Units at 01/08/18 1725 atorvastatin 40 mg tab(s) (LIPITOR) 40 mg ORAL AT BEDTIME Emma (Res) [place] 40 mg at 01/07/18 2104 diphenhydrAMINE 25 mg (BENADRYL) 25 mg ORAL q 6 H PRN Emma (Res) [place] 25 mg at 01/08/18 1725 amLODIPine 10 mg tab(s) (NORVASC) 10 mg ORAL DAILY Quin (Res) Sharkhatunyan 10 mg at 01/08/18 0825 dextrose 40 % 15 g 15 g ORAL PRN Quin (Res) Sharkhatunyan Or glucagon 1 mg injection (GLUCAGEN) 1 mg INTRAMUSCULAR PRN Quin (Res) Sharkhatunyan Or dextrose 50% in water 25 mL syringe 12.5 g INTRAVENOUS PRN Quin (Res) Sharkhatunyan Diagnostic tests reviewed: WBC (thou/cmm) Date Value 01/08/2018 11.34 (H) RBC (mil/cmm) Date Value 01/08/2018 3.57 (L) Hemoglobin (g/dL) Date Value 12/08/2017 12.6 HGB (g/dL) Date Value 01/08/2018 10.3 (L) Hematocrit (%) Date Value 01/08/2018 32.6 (L) MCV (fl) Date Value 01/08/2018 91.3 MCH (pg) Date Value 01/08/2018 28.9 MCHC (%) Date Value 01/08/2018 31.6 RDW-CV (%) Date Value 12/08/2017 14.1 Platelet Count (thou/cmm) Date Value 01/08/2018 478 (H) MPV (fl) Date Value 01/08/2018 9.4 Glucose (mg/dL) Date Value 01/08/2018 118 (H) BUN (mg/dL) Date Value 01/08/2018 21 (H) Creatinine (mg/dL) Date Value 01/08/2018 1.14 (H) Sodium (mEq/L) Date Value 01/08/2018 139 Potassium (mEq/L) Date Value 01/08/2018 3.9 Chloride (mEq/L) Date Value 01/08/2018 103 CO2 (mEq/L) Date Value 01/08/2018 29 Protein, Total (g/dL) Date Value 12/21/2017 7.1 Albumin (g/dL) Date Value 01/01/2018 2.2 (L) Calcium (mg/dL) Date Value 01/08/2018 8.4 (L) Alkaline Phosphatase (U/L) Date Value 12/21/2017 100 Bilirubin, Total (mg/dL) Date Value 12/21/2017 0.2 AST (U/L) Date Value 12/21/2017 14 ALT (U/L) Date Value 12/21/2017 14 Hep C Antibody IA (no units) Date Value 11/04/2016 Negative URINALYSIS pH Date Value Ref Range Status 09/24/2016 7.355 7.320 - 7.420 Final Specific [place], Ur Date Value Ref Range Status 12/22/2017 1.021 1.005 - 1.030 Final Glucose, Urine Date Value Ref Range Status 12/22/2017 NEGATIVE Negative mg/dL Final Bilirubin, Urine Date Value Ref Range Status 12/22/2017 NEGATIVE Negative Final Ketones, Urine Date Value Ref Range Status 12/22/2017 NEGATIVE Negative mg/dL Final Protein, Urine Date Value Ref Range Status 12/22/2017 300 (A) Negative mg/dL Final Urobilinogen, Urine Date Value Ref Range Status 12/22/2017 0.2 0.0 - 1.0 EU/dL Final WBC, Urine Date Value Ref Range Status 12/22/2017 0.4 0.0 - 5.0 /hpf Final CARE COORDINATION: No Patient Care Coordination Note on file. ASSESSMENT AND PLAN Assessment AND Plan, Hosp Problems our Service Addressed Cardiovascular Hyperlipidemia with target LDL less than 100 -atorvastatin 40mg Endocrinology * Diabetic ulcer of toe of left foot associated with type 2 diabetes mellitus, limited to breakdown of skin (HCC) Diabetic Foot Ulcer with Surgical Site Infection s/p left 5th digit amputation -? IANDD 12/25 done - Debridement done, 5th metatarsal, left foot -Secondary closure, surgical wound, left foot done -wound culture sent , showed no growth -blood culture showed no growth -Culture bone 5th metatarsal showed no anaerobes -wound care - Roxicodone and Tylenol PRN ID recs-Vanc 750 mg q24h - With osteomyelitis, Staph epidermidis. Continue ABx for 6 weeks total for osteo - oxycodone prn pain -Vascular surgery recs Cont management per primary team - Wound vac removed yesterday - Vanc per ID/ vancomycin iv 1g in D5W 200ml, check levels 1/2 hour before 4th dose. - ABIs Rt leg 0.9 ,left side 0.74 left leg has moderate arterial disease. - Unlikely to need vascular intervention at this time -vascular surgery signed off Diabetes (HCC) -A1C 14.5% from October 2017 - Insulin has been increased to 17 units. -SSI -monitor blood glucose level. -Nurse reported that patient snacks after dinner each night by having Jose A crackers, peanut butter, orange juice) then she wake up early in the morning to have some Spirit before breakfast. -diabetic education Hematology Normocytic anemia Assessment: Last CBC showed Hb=10.5 and MVC of 90.7. PLAN: - F/u in an outpatient setting and iron studies should be assessed. Dermatology Lichen planus - steroids have been given Other History of cerebrovascular accident (CVA) with residual deficit CVA and Carotid Stenosis -plavix Medication and Non-Pharmacologic VTE Prophylaxis/Anticoagulants Anticoagulant AND Antiplatelet Medications Start Dose Route Frequency Ordered Stop 01/02/18 0900 clopidogrel 75 mg tab(s) (PLAVIX) 75 mg ORAL DAILY 01/01/18 1644 -- 12/26/17 0900 enoxaparin 40 mg injection (LOVENOX) (Medical At Risk ) 40 mg SUBCUTANEOUS DAILY 12/25/17 1803 -- 12/27/172229 pneumatic compression stockings (mt,oh) 12/25/171814 vte pharmacologic prophylaxis contraindicated (mt,oh) 12/25/171814 pneumatic compression stockings (mt,oh) 12/21/172144 pneumatic compression stockings (mt,oh) 12/21/172144 activity - mobilize patient (mt,ak) VTE Prophylaxis: VTE prophylaxis appropriate Plan of care discussed with: Attending SIGNATURE: Veronica Brambila MD PATIENT NAME: Davina Green DATE: January 08, 2018 TIME: 6:05 PM PAGER/CONTACT #: [phone] PROGRESS Observed: 01/08/2018 Status: COMPLETED Source: [place] 3:38 PM [facility] REPOSITORY HNO ID: [id number] Author: Petty GuillenRn) INES Lucas Service: Wound/Ostomy Author Type: Registered Nurse Type: Progress Notes Filed: 01/08/2018 3:58 PM Note Text: WOUND CARE NURSE PROGRESS NOTE SERVICE DATE: 01/08/2018 SERVICE TIME: 1430 REASON FOR VISIT: Wound TIME SPENT (minutes): 30 Patient seen by Lanette OVALLE and beatriz RN. Documentation from Wound Expert can be found in scanned documents. Patient's left lateral foot with intact sutures, skin thickened over the intact sutures at this time. Sutures x 6 removed. Small area of the incision opened 1.2 x 0.3 x 0.2 cm. Plan: apply Mesalt/gauze dressing to the left surgical foot daily secure with gauze wrap and alejandra. Patient to follow up with Ortho after discharge. Wound care to follow. SIGNATURE: Petty Lucas RN PATIENT NAME: Davina Green DATE: January 08, 2018 TIME: 3:39 PM CONTACT#: [id number] THERAPY NT Observed: 01/08/2018 Status: COMPLETED Source: [place] 1:43 PM [facility] REPOSITORY HNO ID: [id number] Author: Linda Keithr/Dez Roberson Service: Occupational Therapy Author Type: Occupational Therapist Type: Therapy (PT/OT/Speech/Resp) Filed: 01/08/2018 1:48 PM Note Text: Occupational Therapy Treatment SERVICE DATE: 01/08/2018 SERVICE TIME: 1325 to 1338 ROOM: [place] [id number] Recommended Discharge Disposition: Home Recommended Discharge Disposition Comments: Pt reports she is going to a SNF for IV antibiotics. Anticipated Discharge Needs: Physical Assist at Home;Equipment Physical Assist at Home for: Cleaning;Laundry;Shopping;Transportation Recommended Discharge Equipment: Wheeled Walker;Shower Chair OT Recommendations to Nursing: To Bathroom for ADL?s /and or Toileting;OOB for meals;With assist of 1 person Equipment: Wheeled Walker OT 6 Clicks Score: 24 Precautions/Activity Restrictions: Weight Bearing Restrictions;Lines/Tubes/Drains (wound vac.) Precaution/Activity Restriction Comments: heel weight bearing Isolation Type: Contact C-Diff Extremity With Weight Bearing Restricted: Left Lower Extremity Left Lower Extremity Weight Bearing Status: Heel Weight Bearing ASSESSMENT: Patient moving well throughout session, able to maintain heel WB during self care. Patient did have 1 LOB by the commode, able to self correct. Patient Disposition at Start of Session: Supine in Bed Patient Disposition at End of Session: Supine in Bed;Call Thomas in [place] Tolerated Full Session Occupational Therapy Problem List: Impaired Self Care;Decreased Activity Tolerance;Functional Mobility Impairment Patient /Caregiver Goals: Go Home Goals for Plan of Care: Grooming with: Independent Upper Body Bathing with: Independent Lower Body Bathing with: Independent Lower Body Dressing with: Independent Tolerate (minutes of functional activity): 45 Functional Activity with: Modified Independent Home Management Skills with: Modified Independent Demonstrate Competence With Education with: Independent Transfer: all functional transfers: modified independent (with wheeled walker) Progress Toward Goals: Progressing as expected PLAN: Treatment Frequency (times per week): 5 (1-4) Current admission Treatment Interventions: Education;Self Care / Home Management;Functional Mobility Training Plan of Care developed with: Patient TREATMENT INTERVENTIONS: Therapy Diagnosis: Reduced mobility-other;Decreased activities of daily living (ADL) Interventions Provided: Self Long-Term Management (68039) Self Long-Term Management (16003) Treatment Minutes: 13 1 unit Skilled Intervention(s):Educated on the role of OT in the acute care setting. Instructed in energy conservation during self care and functional transfers. Provided instruction, cuing and facilitation for lower body dressing using the figure four technique to avoid exessive leaning forward. Education in fall prevention and safety during functional transfers while maintaining heel WB. Facilitated toilet transfer, educated on hand and body placement and safety with use of rail. Total Timed Code Treatment Minutes: 13 Total Treatment Time (minutes): 13 SUBJECTIVE: Current Hospital Course: Chart reviewed and no significant medical updates relevant to therapy were noted Reason for Occupational Therapy Consult: post acute placement Relevant Past Medical History: DM2, wound abscess, gangrene Patient Report: found sitting up in bed eating lunch, agreeable to OT. Denies pain. I normally get up by myself. Home Environment Patient Lives With: ( and son. Was at SNF prior to admit) Assistance Available: 24 Hour (son ) Entry To Home: Stairs;With Rail Number Of Stairs Into Home: 5 Number Of Stairs To Bed/Bath: 10 Stairs to Bed/Bath with: Unilateral Rail Tub/Shower Type: tub shower Equipment Owned: Crutch(es) Prior Functional Level: Within Functional Limits (pt mostly indep with ADLs at facility prior to arrival) OBJECTIVE: Responsiveness: Alert;Awake Follows Commands: 3-step Commands Psychosocial Deficit: intact CURRENT FUNCTIONAL STATUS: Current Activities of Daily Living Assist Level Feeding Independent Grooming Stand By Assistance Bathing Upper Body Stand By Assistance Bathing Lower Body Stand By Assistance Dressing Upper Body Independent Dressing Lower Body Stand By Assistance Toileting Independent Functional Mobility Assist Level Rolling Modified Independent Supine to Sit Supervision Sit to Supine Supervision Scooting Supervision Sit to Stand Supervision Stand to Sit Supervision Bed to Chair Stand Pivot Standard Walker Toilet/Commode Supervision Functional Mobility Contact Guard Assistance (1 LOB at toilet) With Wheelchair Follow Hand Dominance: Right Range Of Motion: Within Functional Limits Strength: Within Functional Limits Balance: Static Standing;Dynamic Standing Static Standing Balance: Supervision Dynamic Standing Balance: Contact Guard Assistance Please see discipline specific clinical documentation flowsheet for complete details for this therapy evaluation/treatment. SIGNATURE: ELI Dodd/Ibeth PATIENT NAME: Davina Green DATE: January 08, 2018 TIME: 1:43 PM CASE MANAGEM Observed: 01/08/2018 Status: COMPLETED Source: [facility] 12:11 PM CLINIC OTHER CAMPUS REPOSITORY HNO ID: [id number] Author: Brisa (Ines) INES Fierro Service: Care Management Author Type: Registered Nurse Type: Care Mgt Progress Note Filed: 01/08/2018 12:13 PM Note Text: CARE MANAGEMENT PROGRESS NOTE SERVICE DATE: 01/08/2018 SERVICE TIME: 12:11 PM LOS: 18 days Needs Prior to Discharge: To Be Determined Met with patient at bedside regarding discharge plan. She is aware that the plan is for her to go to [facility] and that we are awaiting auth. From her insurance co. SIGNATURE: Brisa Fierro RN PATIENT NAME: Davina Green DATE: January 08, 2018 TIME: 12:11 PM PAGER/CONTACT #: [phone] THERAPY NT Observed: 01/08/2018 Status: COMPLETED Source: [place] 11:22 AM CLINIC OTHER CAMPUS REPOSITORY HNO ID: [id number] Author: Rosaura Chou Service: Physical Therapy Author Type: Physical Therapist Type: Therapy (PT/OT/Speech/Resp) Filed: 01/08/2018 11:27 AM Note Text: Physical Therapy Treatment SERVICE DATE: 01/08/2018 SERVICE TIME: 1055 to 1120 ROOM: [place] [address] Recommended Discharge Disposition: (Anticipate d/c to SNF for cont IV antibiotics; rec cont PT) Recommended Discharge Disposition Comments: Pt mobilizing safely with assistive device on stairs and level surfaces. Anticipated Discharge Needs: Physical Assist at Home;Equipment Physical Assist at Home for: Cleaning;Laundry;Shopping;Transportation Recommended Discharge Equipment: Wheeled Walker PT Recommendations to Nursing: Ambulate with device;To bathroom;OOB for Meals;Transfer to/from chair;With assist of 1 person Device: Wheeled Walker PT 6 Clicks Score: 23 Precautions/Activity Restrictions: Weight Bearing Restrictions;Lines/Tubes/Drains (wound vac.) Precaution/Activity Restriction Comments: heel weight bearing Isolation Type: Contact C-Diff Extremity With Weight Bearing Restricted: Left Lower Extremity Left Lower Extremity Weight Bearing Status: Heel Weight Bearing ASSESSMENT : Patient is moving in her room with our the walker and is able to balance for shorter distances to maintain non-weight bearing on her left heel. The patient the was able to perform seat and standing leg exercises and postural exercises with a thera-band. The patient was eager to get moving and work on strengthening. Patient Disposition at Start of Session: Supine in Bed Patient Disposition at End of Session: Supine in Bed Tolerated Full Session Other: See Comment (pt upset today about issues unrelated to therapy) Physical Therapy Problem List: Pain;Decreased Strength;Functional Mobility Impairment Patient /Caregiver Goals: Walk Goals for Plan of Care: Able to perform HEP with: Verbal Cues Only Transfer sit to/from stand with: Supervision Ambulate with: Supervision Distance: 100 Device: Wheeled Walker Ambulate up and down steps with: Stand By Assistance Number of steps: 5 Device: Rail;Crutch(es) (goal met) Progress Toward Goals: Progressing as expected Due To: (medical acuity C-diff / pt upset about other issues today) Rehab Potential: Good PLAN: Treatment Frequency (times per week): 5 (2-5) Current admission Treatment Interventions: Education;Strengthening;Functional Mobility Training Plan of Care developed with: Patient TREATMENT INTERVENTIONS: Therapy Diagnosis: Reduced mobility-other;General symptoms and signs-other Interventions Provided: Therapeutic Exercise (67847) Therapeutic Exercise (07137) Treatment Minutes: 23 2 units Skilled Intervention(s): Instruction in therapeutic exercise for bilateral lower extremity with cues on sitting and standing holding onto the walker. The patient was given verbal instruction on correct technique. The patient was instructed on the thera-band exercises for postural strengthening while sitting and cued on the techniques. Total Timed Code Treatment Minutes: 23 Total Treatment Time (minutes): 23 SUBJECTIVE: Current Hospital Course: Chart reviewed and no significant medical updates relevant to therapy were noted Reason for Physical Therapy Consult : post acute placement Patient Report: Patient is eager to get to SNF and state she has been moving in the room throughout the day. Home Environment Patient Lives With: ( and son. Was at SNF prior to admit) Assistance Available: 24 Hour (son ) Entry To Home: Stairs;With Rail Number Of Stairs Into Home: 5 Number Of Stairs To Bed/Bath: 10 Stairs to Bed/Bath with: Unilateral Rail Tub/Shower Type: tub shower Equipment Owned: Crutch(es) Prior Functional Level: Within Functional Limits (pt mostly indep with ADLs at facility prior to arrival) OBJECTIVE: CURRENT FUNCTIONAL STATUS: Current Functional Mobility Assist Level Additional Information Rolling Supervision Supine to Sit Supervision Sit to Supine Supervision Scooting Supervision Sit to Stand Stand By Assistance Stand to Sit Stand By Assistance Bed to Chair Toilet/Commode Stand By Assistance Gait Contact Guard Assistance Gait Device: None Gait Distance (feet): 25 ft intervals Stairs Contact Guard Assistance Stairs Device: Crutch(es) (crutch and railing) Number of Stairs: 5 Curb Step Car Transfer General Gait Deviations: Non-functional gait speed (weight beaing into left heel, step to pattern) Balance: Static Standing;Dynamic Standing Static Standing Balance: Supervision Dynamic Standing Balance: Contact Guard Assistance Activity Tolerance: (few rest breaks needed) Please see discipline specific clinical documentation flowsheet for complete details for this therapy evaluation/treatment. SIGNATURE: Rosaura Chou PT PATIENT NAME: Davina Green DATE: January 08, 2018 TIME: 11:23 AM CASE MANAGEM Observed: 01/08/2018 Status: COMPLETED Source: [facility] 10:17 AM CLINIC OTHER CAMPUS REPOSITORY HNO ID: [id number] Author: Brisa (Rn) INES Fierro Service: Care Management Author Type: Registered Nurse Type: Care Mgt Progress Note Filed: 01/08/2018 11:27 AM Note Text: CARE MANAGEMENT PROGRESS NOTE SERVICE DATE: 01/08/2018 SERVICE TIME: 10:27 AM LOS: 18 days Needs Prior to Discharge: To Be Determined Notes reviewed. Awaiting auth for patient to go to [facility]. SIGNATURE: Brisa Fierro RN PATIENT NAME: Davina Green DATE: January 08, 2018 TIME: 10:27 AM PAGER/CONTACT #: [phone] MDRD GFR Collected: 01/08/2018 Status: F Source: [facility] 9:45 AM HEALTH SYSTEM REPOSITORY TYPE CODE TESTS RESULT OUT OF RANGE REFERENCE UNITS LAB GFRFN(LOINC >60mL/min/1.73m ) 2 eGFR 48.27 Result Comment: If the patient is , multiply the result by 1.210. Performed By: #### GFR #### [facility] [address] [place] [address] HEMOGRAM/DIFF Collected: 01/08/2018 Status: F Source: [facility] 9:45 AM HEALTH SYSTEM REPOSITORY TYPE CODE TESTS RESULT OUT OF REFERENCE UNITS RANGE LAB WBC(LOINC) 3.98-10.04 thou/cmm WBC High 11.34 LAB RBC(LOINC) 3.93-5.22 mil/cmm Low RBC 3.57 LAB HGB(LOINC) 11.2-15.7 g/dL Low Hgb 10.3 LAB HCT(LOINC) 34.1-44.9 % Low Hct 32.6 LAB MCV(LOINC) 79.4-94.8 fl MCV 91.3 LAB MCH(LOINC) 25.6-32.2 pg MCH 28.9 LAB MCHC(LOINC 31.6-34.8 % ) MCHC 31.6 LAB RDW(LOINC) 11.7-14.4 % RDW High 14.6 LAB RDWSD(LOIN 36.4-46.3 fl C) RDW SD High 49.0 LAB PLT(LOINC) 182-369 thou/cmm Platelet High 478 LAB MPV(LOINC) 9.4-12.3 fl MPV 9.4 LAB SEG(LOINC) % Seg Neutrophil 61.2 LAB IGRE(LOINC % ) Immature Grans 0.40 LAB LYMPH(LOIN % C) Lymphocyte 16.0 LAB MNO(LOINC) % Monocyte 7.5 LAB EOSIN(LOIN % C) Eosinophil 14.6 LAB BASO(LOINC % ) Basophil 0.3 LAB SEGN(LOINC 1.56-6.13 thou/cmm ) Abs. High Neut (ANC) 6.94 LAB IGAB(LOINC 0.00-0.05 thou/cmm ) Abs Immature Grans 0.05 LAB LYMN(LOINC 1.18-3.74 thou/cmm ) Abs. Lymph 1.81 LAB MONON(LOIN 0.27-0.70 thou/cmm C) Abs. High [place] 0.85 LAB EOSN(LOINC 0.00-0.31 thou/cmm ) Abs. High Eosin 1.66 LAB BASON(LOIN 0.01-0.08 thou/cmm C) Abs. Baso 0.03 Result Comment: Smear scanned; tech agrees with automated differential LAB PATH(LOINC) Interpreted by See below Result Comment: Ross Mitchell M.D., Pathologist Performed By: #### CBCD1 #### [place] [address] BASIC PANEL Collected: 01/08/2018 Status: F Source: [facility] 9:45 AM HEALTH SYSTEM REPOSITORY TYPE CODE TESTS RESULT OUT OF REFERENCE UNITS RANGE LAB NA(LOINC) 136-145 mEq/L Sodium Blood 139 LAB K(LOINC) 3.5-5.1 mEq/L Potassium Blood 3.9 LAB CL(LOINC) 98-107 mEq/L Chloride Blood 103 LAB CO2(LOINC) 21-32 mEq/L CO2 Blood 29 LAB GLU(LOINC) 70-99 mg/dL Glucose High Blood 118 LAB BUN(LOINC) 7-18 mg/dL BUN High Blood 21 LAB CREA(LOINC 0.51-0.95 mg/dL ) High Creatinine Blood 1.14 LAB CA(LOINC) 8.5-10.1 mg/dL Low Calcium Blood 8.4 LAB ANGAP(LOIN 8-16 C) Anion Gap 11 Performed By: #### P8 #### [facility] [address] [place] [address] PROGRESS Observed: 01/07/2018 Status: COMPLETED Source: [place] 11:34 AM CLINIC OTHER CAMPUS REPOSITORY HNO ID: [id number] Author: Mary De Santiago Service: Hospital Medicine Author Type: Physician Type: Progress Notes Filed: 01/07/2018 9:26 PM Note Text: SERVICE DATE: 01/07/2018 SERVICE TIME: 11:34 AM HOSPITAL MEDICINE PROGRESS NOTE SUBJECTIVE 62 year old female with PMH of diabetes, HTN, CVA presented with left foot pain due to left toe abcess since amputation. ? - Patient has developed a left sided facial swelling during the night, the swelling is not tender to touch, she noticed it only when she woke up.She denies sleeping on her face or in an uncomfortable position or trauma to her face. She reports that she had a similar issue after her one surgery she did before and she has been told that it was due to Plavix. She has been having Plavix since December with no issues. - Patient reports pain at the site of amputation, pain graded as 4/10. Pain medication are controlling the medication well. - Vitals are stable. -Patient reports total resolution of diarrhea. - Patient doesn't report any dysuria, hematuria or pain while urination. - Patient is awaiting for replacment - Patient is still on steroids to help with itching due to lichen planus. - Patient reports no overnight events. OBJECTIVE BP 114/68 Pulse 98 Temp (Src) 98.1 (Oral) Resp 16 Ht 5' 0 (1.52m) Wt 125 lb (56.7kg) SpO2 97% BMI 24.41 kg/(m2). Physical Exam Performed: GENERAL: GENERAL APPEARANCE NCCC: well appearing, alert and in no acute distress HEART: HEART CCF: regular rate and rhythm, no murmer, gallop or rub, normal, S1, S2, no lifts, heaves, or thrills, PMI not displaced LUNGS: LUNGS CCF: clear to percussion and auscultation and no rales ABDOMEN: ABDOMEN: Soft, nontender, bowel sounds normal, no palpable organomegaly, no bruits. EXTREMITY: EXTREMITY EXAM: Normal exam of the extremities. No clubbing, cyanosis, or edema.Amputated toe has adequate dressing, dressing is clean. Normal temperature, no signs of infection. Patient also has two wound dressing, one on the right side of her forehead and other on her back, wounds seem clean and not infected SKIN: Patient developed left sided facial swelling overnight. No erythema or abnormal discoloration over the swollen area. Rest of physical exam has been noncontributory. Lines, Drains, and Airways Line Central Line Single Lumen 12/26/17 1421 Peripherally Inserted (PICC) Right Arm 4.0 [place] 11 days Medications: Reviewed Current Facility-Administered Medications: insulin glargine 17 Units pen (long acting) (LANTUS SOLOSTAR, BASAGLAR KWIKPEN) 17 Units SUBCUTANEOUS AT BEDTIME Brit (Daniel) Stew Betamethasone Dipropionate 0.05 % lotion TOPICAL BID Emperatriz (Res) Apollo vancomycin iv piggyback 1 g in D5W 200 mL (VANCOCIN) 1 g INTRAVENOUS q 24 HR Emperatriz (Res) Apollo Last Rate: 200 mL/hr at 01/06/188 1 g at 01/06/188 clopidogrel 75 mg tab(s) (PLAVIX) 75 mg ORAL DAILY Emperatriz (Res) Apollo 75 mg at 01/06/18 0833 oxyCODONE IR 5 mg tab(s) (ROXICODONE) 5 mg ORAL q 4 H PRN Danielle Slaughter Afia oxyCODONE IR 10 mg tab(s) (ROXICODONE) 10 mg ORAL q 4 H PRN Danielle Slaughter Afia 10 mg at 01/07/18 0820 vancomycin 125 mg oral liquid (VANCOCIN) 125 mg ORAL QID Avi Samuel Bollin 125 mg at 01/07/18 0900 0.9% NaCl 10 mL 10 mL INTRAVENOUS q 12 H Caitlyn Hidalgo 10 mL at 01/07/18 0837 0.9% NaCl 20 mL 20 mL INTRAVENOUS PRN Caitlyn Hidalgo 20 mL at 12/30/17 1243 enoxaparin 40 mg injection (LOVENOX) 40 mg SUBCUTANEOUS DAILY Brandon (Res) Quinn 40 mg at 01/07/18 0838 ondansetron 4 mg tab(s) (ZOFRAN) 4 mg ORAL q 6 H PRN Brandon (Res) Quinn 4 mg at 12/30/17 0920 Or ondansetron (PF) 4 mg injection (ZOFRAN) 4 mg INTRAVENOUS q 6 H PRN Brandon (Res) Quinn 4 mg at 12/25/17 192 docusate sodium 100 mg cap(s) (COLACE) 100 mg ORAL BID Brandon (Res) Quinn 100 mg at 12/29/17 215 acetaminophen 325 mg tab(s) (TYLENOL) 325 mg ORAL q 4 H PRN Brandon (Res) Quinn 325 mg at 01/05/[address] 40 mg tab(s) (PROTONIX) 40 mg ORAL DAILY (6 AM) Brandon (Res) Quinn 40 mg at 01/07/18 0615 lisinopril 30 mg tab(s) (ZESTRIL,PRINIVIL) 30 mg ORAL DAILY Emma (Res) [place] 30 mg at 01/07/18 0837 buPROPion XL 150 mg tab(s) (WELLBUTRIN XL) 150 mg ORAL DAILY Casey (Res) MD Remigio 150 mg at 01/07/18 0837 sertraline 100 mg tab(s) (ZOLOFT) 100 mg ORAL DAILY Casey (Res) MD Remigio 100 mg at 01/07/18 0837 fluocinonide 0.05 % (LIDEX) TOPICAL DAILY Casey (Res) MD Remigio insulin lispro pen (rapid acting) (HumaLOG KWIKPEN) SUBCUTANEOUS w MEALS Quin (Res) [place] 3 Units at 01/07/18 0840 insulin lispro 5 Units pen (rapid acting) (HumaLOG KWIKPEN) 5 Units SUBCUTANEOUS w MEALS Emma (Res) [place] 5 Units at 01/07/18 0839 atorvastatin 40 mg tab(s) (LIPITOR) 40 mg ORAL AT BEDTIME Emma (Res) [place] 40 mg at 01/06/18 2127 diphenhydrAMINE 25 mg (BENADRYL) 25 mg ORAL q 6 H PRN Emma (Res) [place] 25 mg at 01/07/18 0615 amLODIPine 10 mg tab(s) (NORVASC) 10 mg ORAL DAILY Quin (Res) [place]un[place] 10 mg at 01/07/18 0837 dextrose 40 % 15 g 15 g ORAL PRN Quin (Res) [place] Or glucagon 1 mg injection (GLUCAGEN) 1 mg INTRAMUSCULAR PRN Quin (Res) [place] Or dextrose 50% in water 25 mL syringe 12.5 g INTRAVENOUS PRN Quin (Res) [place]ark[place]unyan Diagnostic tests reviewed: WBC (thou/cmm) Date Value 01/06/2018 11.73 (H) RBC (mil/cmm) Date Value 01/06/2018 3.53 (L) Hemoglobin (g/dL) Date Value 12/08/2017 12.6 HGB (g/dL) Date Value 01/06/2018 10.5 (L) Hematocrit (%) Date Value 01/06/2018 32.0 (L) MCV (fl) Date Value 01/06/2018 90.7 MCH (pg) Date Value 01/06/2018 29.7 MCHC (%) Date Value 01/06/2018 32.8 RDW-CV (%) Date Value 12/08/2017 14.1 Platelet Count (thou/cmm) Date Value 01/06/2018 465 (H) MPV (fl) Date Value 01/06/2018 9.3 (L) Glucose (mg/dL) Date Value 01/06/2018 193 (H) BUN (mg/dL) Date Value 01/06/2018 20 (H) Creatinine (mg/dL) Date Value 01/06/2018 0.99 (H) Sodium (mEq/L) Date Value 01/06/2018 136 Potassium (mEq/L) Date Value 01/06/2018 4.2 Chloride (mEq/L) Date Value 01/06/2018 101 CO2 (mEq/L) Date Value 01/06/2018 31 Protein, Total (g/dL) Date Value 12/21/2017 7.1 Albumin (g/dL) Date Value 01/01/2018 2.2 (L) Calcium (mg/dL) Date Value 01/06/2018 8.6 Alkaline Phosphatase (U/L) Date Value 12/21/2017 100 Bilirubin, Total (mg/dL) Date Value 12/21/2017 0.2 AST (U/L) Date Value 12/21/2017 14 ALT (U/L) Date Value 12/21/2017 14 Hep C Antibody IA (no units) Date Value 11/04/2016 Negative URINALYSIS pH Date Value Ref Range Status 09/24/2016 7.355 7.320 - 7.420 Final Specific [place], Ur Date Value Ref Range Status 12/22/2017 1.021 1.005 - 1.030 Final Glucose, Urine Date Value Ref Range Status 12/22/2017 NEGATIVE Negative mg/dL Final Bilirubin, Urine Date Value Ref Range Status 12/22/2017 NEGATIVE Negative Final Ketones, Urine Date Value Ref Range Status 12/22/2017 NEGATIVE Negative mg/dL Final Protein, Urine Date Value Ref Range Status 12/22/2017 300 (A) Negative mg/dL Final Urobilinogen, Urine Date Value Ref Range Status 12/22/2017 0.2 0.0 - 1.0 EU/dL Final WBC, Urine Date Value Ref Range Status 12/22/2017 0.4 0.0 - 5.0 /hpf Final CARE COORDINATION: No Patient Care Coordination Note on file. ASSESSMENT AND PLAN Assessment AND Plan, Hosp Problems our Service Addressed Nephrology Electrolyte imbalance - F/u BMP everyday Endocrinology * Diabetic ulcer of toe of left foot associated with type 2 diabetes mellitus, limited to breakdown of skin (HCC) Diabetic Foot Ulcer with Surgical Site Infection s/p left 5th digit amputation -? IANDD 12/25 done - Debridement done, 5th metatarsal, left foot -Secondary closure, surgical wound, left foot done -wound culture sent , showed no growth -blood culture showed no growth -Culture bone 5th metatarsal showed no anaerobes -wound care -percocet prn q6hr ID recs-Vanc 750 mg q24h - With osteomyelitis, Staph epidermidis. Continue ABx for 6 weeks total for osteo - oxycodone prn pain -Vascular surgery recs Cont management per primary team - Wound vac removed yesterday - Vanc per ID/ vancomycin iv 1g in D5W 200ml, check levels 1/2 hour before 4th dose. - ABIs Rt leg 0.9 ,left side 0.74 left leg has moderate arterial disease. - Unlikely to need vascular intervention at this time -vascular surgery signed off Diabetes (HCC) -A1C 14.5% from October 2017 - Insulin has been increased to 17 units. -SSI -monitor blood glucose level. -diabetic education Dermatology Lichen planus - steroids have been given Medication and Non-Pharmacologic VTE Prophylaxis/Anticoagulants Anticoagulant AND Antiplatelet Medications Start Dose Route Frequency Ordered Stop 01/02/18 0900 clopidogrel 75 mg tab(s) (PLAVIX) 75 mg ORAL DAILY 01/01/18 1644 -- 12/26/17 0900 enoxaparin 40 mg injection (LOVENOX) (Medical At Risk ) 40 mg SUBCUTANEOUS DAILY 12/25/17 1803 -- 12/27/17 223 pneumatic compression stockings (mt,oh) 12/25/17 181 vte pharmacologic prophylaxis contraindicated (mt,oh) 12/25/17 181 pneumatic compression stockings (mt,oh) 12/21/17 214 pneumatic compression stockings (mt,oh) 12/21/17 214 activity - mobilize patient (mt,oh) VTE Prophylaxis: VTE prophylaxis appropriate Plan of care discussed with: Attending SIGNATURE: Veronica Brambila MD PATIENT NAME: Davina Green DATE: January 07, 2018 TIME: 11:34 AM PAGER/CONTACT #: [phone] Evaluated independently Agreed with the above notes by Dr. Brambila which reflects my input with the following additions Complains of swelling of the face on the right side. She woke up from bed today am with finding No head ache,visual or weakness or numbness anywhere in the body On exam minimal swelling of the face especially infraorbital region. No localizing neuro drficits This problem appears positional Will observe Will increase insulin for high blood sugars Anemia needs work up as out patient Discussed with patient regarding condition and plan Stable for discharge Awaiting for placement Attestation signed by Mary De Santiago MD [facility] Attending January 07, 2018 9:18 PM PROGRESS Observed: 01/07/2018 Status: COMPLETED Source: [facility] 5:06 AM CLINIC OTHER CAMPUS REPOSITORY HNO ID: [id number] Author: Downtime Note Service: (none) Author Type: (none) Type: Progress Notes Filed: 01/07/2018 5:12 AM Note Text: Epic Scheduled Downtime: 01/07/2018 1:05:00 AM to 01/07/2018 4:56:36 AM PROGRESS Observed: 01/06/2018 Status: COMPLETED Source: [place] 2:00 PM CLINIC OTHER CAMPUS REPOSITORY HNO ID: [id number] Author: Mary De Santiago Service: Hospital Medicine Author Type: Physician Type: Progress Notes Filed: 01/06/2018 9:01 PM Note Text: SERVICE DATE: 01/06/2018 SERVICE TIME: 2:00 PM HOSPITAL MEDICINE PROGRESS NOTE SUBJECTIVE 62 year old female with PMH of diabetes, HTN, CVA presented with left foot pain due to left toe abcess since amputation. ? - Patient reports pain at the site of amputation, pain graded as 4/10. Pain medication are controlling the medication well. - Vitals are stable. -Patient developed C.diff diarrhea during hospitalization, today she reports no loose stools, therefore isolation has been asked to be discontinued, but nurse stated that this couldn't be done since the room need to be disinfected first. - Patient doesn't report any dysuria, hematuria or pain while urination. - Patient is awaiting for replacment - Patient reports experiencing itching a lot because of her lichen planus, for which she is using benadryl for. Because of this itching she developed bleeding scratches on her forehead and back. She is also on Plavix. Therefore, we ordered her steroids to help her deal with her itching. - Patient reports no overnight events. ? OBJECTIVE BP 135/80 Pulse 95 Temp (Src) 98.4 (Oral) Resp 18 Ht 5' 0 (1.52m) Wt 125 lb (56.7kg) SpO2 99% BMI 24.41 kg/(m2). Physical Exam Performed: GENERAL: GENERAL APPEARANCE NCCC: well appearing, alert and in no acute distress HEART: HEART CCF: regular rate and rhythm, no murmer, gallop or rub, normal, S1, S2, no lifts, heaves, or thrills, PMI not displaced LUNGS: LUNGS CCF: clear to percussion and auscultation, no rales and breath sounds normal, bilaterally ABDOMEN: ABDOMEN: Soft, nontender, bowel sounds normal, no palpable organomegaly, no bruits. EXTREMITY: EXTREMITY EXAM: Normal exam of the extremities. No clubbing, cyanosis, or edema. Amputated toe has adequate dressing, dressing is clean. Normal temperature, no signs of infection. Patient also has two wound dressing, one on the right side of her forehead and other on her back, wounds seem clean and not infected. The remainder of the physical exam is noncontributory. Lines, Drains, and Airways Line Central Line Single Lumen 12/26/17 1421 Peripherally Inserted (PICC) Right Arm 4.0 [place] 10 days Medications: Current Facility-Administered Medications: Betamethasone Dipropionate 0.05 % lotion TOPICAL BID Emperatriz (Res) Apollo vancomycin iv piggyback 1 g in D5W 200 mL (VANCOCIN) 1 g INTRAVENOUS q 24 HR Emperatriz (Res) Apollo Last Rate: 200 mL/hr at 01/05/182005 1 g at 01/05/182005 clopidogrel 75 mg tab(s) (PLAVIX) 75 mg ORAL DAILY Emperatriz (Res) Apollo 75 mg at 01/06/18 0833 oxyCODONE IR 5 mg tab(s) (ROXICODONE) 5 mg ORAL q 4 H PRN Danielle Slaughter Afia oxyCODONE IR 10 mg tab(s) (ROXICODONE) 10 mg ORAL q 4 H PRN Danielle Slaughter Afia 10 mg at 01/06/18 1347 vancomycin 125 mg oral liquid (VANCOCIN) 125 mg ORAL QID Avi Samuel Bollin 125 mg at 01/06/18 1204 0.9% NaCl 10 mL 10 mL INTRAVENOUS q 12 H Caitlyn Hidalgo 10 mL at 01/05/182006 0.9% NaCl 20 mL 20 mL INTRAVENOUS PRN Caitlyn Hidalgo 20 mL at 12/30/17 1243 enoxaparin 40 mg injection (LOVENOX) 40 mg SUBCUTANEOUS DAILY Brandon (Res) Quinn 40 mg at 01/06/18 0834 ondansetron 4 mg tab(s) (ZOFRAN) 4 mg ORAL q 6 H PRN Brandon (Res) Quinn 4 mg at 12/30/17 0920 Or ondansetron (PF) 4 mg injection (ZOFRAN) 4 mg INTRAVENOUS q 6 H PRN Brandon (Res) Quinn 4 mg at 12/25/17 1922 docusate sodium 100 mg cap(s) (COLACE) 100 mg ORAL BID Brandon (Res) Quinn 100 mg at 12/29/17 215 acetaminophen 325 mg tab(s) (TYLENOL) 325 mg ORAL q 4 H PRN Brandon (Res) Quinn 325 mg at 01/05/[address] 40 mg tab(s) (PROTONIX) 40 mg ORAL DAILY (6 AM) Brandon (Res) Quinn 40 mg at 01/06/18 0537 lisinopril 30 mg tab(s) (ZESTRIL,PRINIVIL) 30 mg ORAL DAILY Emma (Res) [place] 30 mg at 01/06/18 0833 buPROPion XL 150 mg tab(s) (WELLBUTRIN XL) 150 mg ORAL DAILY Casey (Res) MD Remigio 150 mg at 01/06/18 0833 sertraline 100 mg tab(s) (ZOLOFT) 100 mg ORAL DAILY Casey (Res) MD Remigio 100 mg at 01/06/18 0833 fluocinonide 0.05 % (LIDEX) TOPICAL DAILY Casey (Res) MD Remigio insulin lispro pen (rapid acting) (HumaLOG KWIKPEN) SUBCUTANEOUS w MEALS Quin (Res) Sharkhatunyan 3 Units at 01/06/18 1205 insulin lispro 5 Units pen (rapid acting) (HumaLOG KWIKPEN) 5 Units SUBCUTANEOUS w MEALS Emma (Res) [place] 5 Units at 01/06/18 1205 atorvastatin 40 mg tab(s) (LIPITOR) 40 mg ORAL AT BEDTIME Emma (Res) [place] 40 mg at 01/05/182005 diphenhydrAMINE 25 mg (BENADRYL) 25 mg ORAL q 6 H PRN Emma (Res) [place] 25 mg at 01/06/18 0950 amLODIPine 10 mg tab(s) (NORVASC) 10 mg ORAL DAILY Quin (Res) Sharkhatunyan 10 mg at 01/06/18 0833 insulin glargine 14 Units pen (long acting) (LANTUS SOLOSTAR, BASAGLAR KWIKPEN) 14 Units SUBCUTANEOUS AT BEDTIME Quin (Res) Sharkhatunyan 14 Units at 01/05/182005 dextrose 40 % 15 g 15 g ORAL PRN Quin (Res) [place] Or glucagon 1 mg injection (GLUCAGEN) 1 mg INTRAMUSCULAR PRN Quin (Res) [place] Or dextrose 50% in water 25 mL syringe 12.5 g INTRAVENOUS PRN Quin (Res) Sharkhatunyan Diagnostic tests reviewed: WBC (thou/cmm) Date Value 01/06/2018 11.73 (H) RBC (mil/cmm) Date Value 01/06/2018 3.53 (L) Hemoglobin (g/dL) Date Value 12/08/2017 12.6 HGB (g/dL) Date Value 01/06/2018 10.5 (L) Hematocrit (%) Date Value 01/06/2018 32.0 (L) MCV (fl) Date Value 01/06/2018 90.7 MCH (pg) Date Value 01/06/2018 29.7 MCHC (%) Date Value 01/06/2018 32.8 RDW-CV (%) Date Value 12/08/2017 14.1 Platelet Count (thou/cmm) Date Value 01/06/2018 465 (H) MPV (fl) Date Value 01/06/2018 9.3 (L) Glucose (mg/dL) Date Value 01/06/2018 193 (H) BUN (mg/dL) Date Value 01/06/2018 20 (H) Creatinine (mg/dL) Date Value 01/06/2018 0.99 (H) Sodium (mEq/L) Date Value 01/06/2018 136 Potassium (mEq/L) Date Value 01/06/2018 4.2 Chloride (mEq/L) Date Value 01/06/2018 101 CO2 (mEq/L) Date Value 01/06/2018 31 Protein, Total (g/dL) Date Value 12/21/2017 7.1 Albumin (g/dL) Date Value 01/01/2018 2.2 (L) Calcium (mg/dL) Date Value 01/06/2018 8.6 Alkaline Phosphatase (U/L) Date Value 12/21/2017 100 Bilirubin, Total (mg/dL) Date Value 12/21/2017 0.2 AST (U/L) Date Value 12/21/2017 14 ALT (U/L) Date Value 12/21/2017 14 Hep C Antibody IA (no units) Date Value 11/04/2016 Negative URINALYSIS pH Date Value Ref Range Status 09/24/2016 7.355 7.320 - 7.420 Final Specific [place], Ur Date Value Ref Range Status 12/22/2017 1.021 1.005 - 1.030 Final Glucose, Urine Date Value Ref Range Status 12/22/2017 NEGATIVE Negative mg/dL Final Bilirubin, Urine Date Value Ref Range Status 12/22/2017 NEGATIVE Negative Final Ketones, Urine Date Value Ref Range Status 12/22/2017 NEGATIVE Negative mg/dL Final Protein, Urine Date Value Ref Range Status 12/22/2017 300 (A) Negative mg/dL Final Urobilinogen, Urine Date Value Ref Range Status 12/22/2017 0.2 0.0 - 1.0 EU/dL Final WBC, Urine Date Value Ref Range Status 12/22/2017 0.4 0.0 - 5.0 /hpf Final ASSESSMENT AND PLAN Assessment AND Plan, all Hosp Problems Active Hospital Problems as of 01/06/2018 Noted - Resolved Lichen planus 11/09/2010 - Present Current Assessment AND Plan Patient reports experiencing itching a lot because of her lichen planus, for which she is using benadryl for. Because of this itching she developed bleeding scratches on her forehead and back. She is also on Plavix. Therefore, we ordered her steroids to help her deal with her itching. Essential hypertension, benign 06/22/2012 - Present Current Assessment AND Plan -continue home lisinopril and home amlodipine - Blood pressure has been stable so far -follow BP's Hyperlipidemia with target LDL less than 100 03/18/2014 - Present Current Assessment AND Plan -atorvastatin 40mg History of cerebrovascular accident (CVA) with residual deficit 04/20/2015 - Present Current Assessment AND Plan CVA and Carotid Stenosis -plavix * (Principal)Diabetic ulcer of toe of left foot associated with type 2 diabetes mellitus, limited to breakdown of skin (HCC) 10/17/2017 - Present Current Assessment AND Plan Diabetic Foot Ulcer with Surgical Site Infection s/p left 5th digit amputation -? IANDD 12/25 done - Debridement done, 5th metatarsal, left foot -Secondary closure, surgical wound, left foot done -wound culture sent , showed no growth -blood culture showed no growth -Culture bone 5th metatarsal showed no anaerobes -wound care -percocet prn q6hr ID recs-Vanc 750 mg q24h - With osteomyelitis, Staph epidermidis. Continue ABx for 6 weeks total for osteo - oxycodone prn pain -Vascular surgery recs Cont management per primary team - Wound vac removed yesterday - Vanc per ID/ vancomycin iv 1g in D5W 200ml, check levels 1/2 hour before 4th dose. - ABIs Rt leg 0.9 ,left side 0.74 left leg has moderate arterial disease. - Unlikely to need vascular intervention at this time -vascular surgery signed off Diabetes ([facility]) 12/23/2017 - Present Current Assessment AND Plan -A1C 14.5% from October 2017 -lantus -SSI -monitor blood glucose level. -diabetic education Tobacco abuse 12/23/2017 - Present Current Assessment AND Plan -smoking cessation encouraged C. difficile diarrhea 12/28/2017 - Present Current Assessment AND Plan Diarrhea has resolved. Patient is still put under isolation since the room needs to be disinfected before isolation is d/c Malnutrition of moderate degree ([facility]) 12/31/2017 - Present Current Assessment AND Plan Assessment: PLAN: -albumin 2.2 -on carb controlled diet Normocytic anemia 01/03/2018 - Present Current Assessment AND Plan Assessment: Last CBC showed Hb=10.5 and MVC of 90.7. PLAN: - F/u in an outpatient setting and iron studies should be assessed. Electrolyte imbalance 01/04/2018 - Present Current Assessment AND Plan - Continue to monitor sodium - Monitor Cr - F/u BMP everyday Medication and Non-Pharmacologic VTE Prophylaxis/Anticoagulants Anticoagulant AND Antiplatelet Medications Start Dose Route Frequency Ordered Stop 01/02/18 0900 clopidogrel 75 mg tab(s) (PLAVIX) 75 mg ORAL DAILY 01/01/18 1644 -- 12/26/17 0900 enoxaparin 40 mg injection (LOVENOX) (Medical At Risk ) 40 mg SUBCUTANEOUS DAILY 12/25/17 1803 -- 12/27/17 2230 pneumatic compression stockings (mt,oh) 12/25/171814 vte pharmacologic prophylaxis contraindicated (fl,oh) 12/25/171814 pneumatic compression stockings (fl,oh) 12/21/172144 pneumatic compression stockings (fl,oh) 12/21/172144 activity - mobilize patient (fl,oh) VTE Prophylaxis: VTE prophylaxis appropriate Plan of care discussed with: Attending SIGNATURE: Veronica Brambila MD PATIENT NAME: Davian Green DATE: January 06, 2018 TIME: 2:00 PM PAGER/CONTACT #: [phone] Evaluated independently Agreed with the above notes by Dr. Brambila which reflects my input with the following additions Claims no problems except chronic pain Exam is stable Awaiting for placement Attestation signed by Mary De Santiago MD [facility] Attending January 06, 2018 9:00 PM THERAPY NT Observed: 01/06/2018 Status: COMPLETED Source: [place] 12:06 PM CLINIC OTHER CAMPUS REPOSITORY HNO ID: [id number] Author: Brisa Brooke Service: Physical Therapy Author Type: Resident Care Associate Type: Therapy (PT/OT/Speech/Resp) Filed: 01/06/2018 12:13 PM Note Text: Attestation signed by Johnie Ybarra at 01/06/2018 4:20 PM I reviewed and agree with the documentation corresponding to this therapy visit. SIGNATURE: Johnie Ybarra, PT DATE: January 06, 2018 TIME: 4:20 PM Physical Therapy Treatment SERVICE DATE: 01/06/2018 SERVICE TIME: 1125 to 1148 ROOM: [id number] Recommended Discharge Disposition: (Anticipate d/c to SNF for cont IV antibiotics; rec cont PT) Recommended Discharge Disposition Comments: Pt mobilizing safely with assistive device on stairs and level surfaces. Anticipated Discharge Needs: Physical Assist at Home;Equipment Physical Assist at Home for: Cleaning;Laundry;Shopping;Transportation Recommended Discharge Equipment: Wheeled Walker PT Recommendations to Nursing: Ambulate with device;To bathroom;OOB for Meals;Transfer to/from chair;With assist of 1 person Device: Wheeled Walker PT 6 Clicks Score: 20 Precautions/Activity Restrictions: Weight Bearing Restrictions;Lines/Tubes/Drains (wound vac.) Precaution/Activity Restriction Comments: heel weight bearing Isolation Type: Contact C-Diff Extremity With Weight Bearing Restricted: Left Lower Extremity Left Lower Extremity Weight Bearing Status: Heel Weight Bearing ASSESSMENT : Patient Disposition at Start of Session: Supine in Bed;Call Thomas in Reach Patient Disposition at End of Session: Supine in Bed;Call Thomas in Reach Tolerated Full Session Patient progressing with endurance for exercises but requires more rest breaks when leg in dependent position due to pain. Physical Therapy Problem List: Pain;Decreased Strength;Functional Mobility Impairment Patient /Caregiver Goals: Walk Goals for Plan of Care: Able to perform HEP with: Verbal Cues Only Transfer sit to/from stand with: Supervision Ambulate with: Supervision Distance: 100 Device: Wheeled Walker Ambulate up and down steps with: Stand By Assistance Number of steps: 5 Device: Rail;Crutch(es) (goal met) Progress Toward Goals: Progressing as expected Due To: (medical acuity C-diff / pt upset about other issues today) Rehab Potential: Good PLAN: Treatment Frequency (times per week): 5 (2-5) Current admission Treatment Interventions: Education;Strengthening;Functional Mobility Training Plan of Care developed with: Patient TREATMENT INTERVENTIONS: Therapy Diagnosis: Reduced mobility-other;General symptoms and signs-other Interventions Provided: Therapeutic Exercise (30043);Gait Training (33434) Therapeutic Exercise (01456) Treatment Minutes: 15 1 unit Skilled Intervention(s): Instruction in therapeutic exercise for both legs: ankle pump, quad set, glute set, adductor set, hip abduction/adduction, heel slide, short arc quad, straight leg raise, long arc quad, and marching x 15 reps. Assist with left leg straight leg raise. In standing with use of walker, left hip flex/abduction x 12 reps. Verbal and tactile cuing provided for slower pace and proper alignment (minimize external rotation). Therapeutic Activity (21761) Treatment Minutes: 8 1 unit Skilled Intervention(s): Instructed patient in supine to and from sit pushing with upper extremities to sit up with bed flat. Instruction in sit to and from stand technique with proper hand placement and body positioning at edge of bed. Reinforcement on proper hand placement. Patient ambulates with cues for erect posture with forward gaze, keep weight bearing on left heel only, safely navigate obstacles in room, and to keep within walker frame. Total Timed Code Treatment Minutes: 23 Total Treatment Time (minutes): 23 SUBJECTIVE: Current Hospital Course: Chart reviewed and no significant medical updates relevant to therapy were noted Reason for Physical Therapy Consult : post acute placement Patient Report: 5-11/05 when leg in dependent position. Home Environment Patient Lives With: ( and son. Was at SNF prior to admit) Assistance Available: 24 Hour (son ) Entry To Home: Stairs;With Rail Number Of Stairs Into Home: 5 Number Of Stairs To Bed/Bath: 10 Stairs to Bed/Bath with: Unilateral Rail Tub/Shower Type: tub shower Equipment Owned: Crutch(es) Prior Functional Level: Within Functional Limits (pt mostly indep with ADLs at facility prior to arrival) OBJECTIVE: CURRENT FUNCTIONAL STATUS: Current Functional Mobility Assist Level Additional Information Rolling Supervision Supine to Sit Supervision Sit to Supine Supervision Scooting Supervision Sit to Stand Stand By Assistance Stand to Sit Stand By Assistance Bed to Chair Toilet/Commode Gait Contact Guard Assistance Gait Device: Wheeled Walker Gait Distance (feet): intervals of 20-25ft Stairs Curb Step Car Transfer General Gait Deviations: Non-functional gait speed (weight beaing into left heel, step to pattern) Balance: Static Standing;Dynamic Standing Static Standing Balance: Supervision Dynamic Standing Balance: Contact Guard Assistance Activity Tolerance: (few rest breaks needed) Please see discipline specific clinical documentation flowsheet for complete details for this therapy evaluation/treatment. SIGNATURE: Brisa Brooke PTA PATIENT NAME: Davina Green DATE: January 06, 2018 TIME: 12:07 PM HEMOGRAM/DIFF Collected: 01/06/2018 Status: F Source: [facility] 8:46 AM HEALTH SYSTEM REPOSITORY TYPE CODE TESTS RESULT OUT OF REFERENCE UNITS RANGE LAB WBC(LOINC) 3.98-10.04 thou/cmm WBC High 11.73 LAB RBC(LOINC) 3.93-5.22 mil/cmm Low RBC 3.53 LAB HGB(LOINC) 11.2-15.7 g/dL Low Hgb 10.5 LAB HCT(LOINC) 34.1-44.9 % Low Hct 32.0 LAB MCV(LOINC) 79.4-94.8 fl MCV 90.7 LAB MCH(LOINC) 25.6-32.2 pg MCH 29.7 LAB MCHC(LOINC 31.6-34.8 % ) MCHC 32.8 LAB RDW(LOINC) 11.7-14.4 % RDW High 14.7 LAB RDWSD(LOIN 36.4-46.3 fl C) RDW SD High 48.7 LAB PLT(LOINC) 182-369 thou/cmm Platelet High 465 LAB MPV(LOINC) 9.4-12.3 fl Low MPV 9.3 LAB SEG(LOINC) % Seg Neutrophil 63.9 LAB IGRE(LOINC % ) Immature Grans 0.30 LAB LYMPH(LOIN % C) Lymphocyte 16.3 LAB MNO(LOINC) % Monocyte 7.5 LAB EOSIN(LOIN % C) Eosinophil 11.6 LAB BASO(LOINC % ) Basophil 0.4 LAB SEGN(LOINC 1.56-6.13 thou/cmm ) Abs. High Neut (ANC) 7.50 LAB IGAB(LOINC 0.00-0.05 thou/cmm ) Abs Immature Grans 0.04 LAB LYMN(LOINC 1.18-3.74 thou/cmm ) Abs. Lymph 1.91 LAB MONON(LOIN 0.27-0.70 thou/cmm C) Abs. High [place] 0.88 LAB EOSN(LOINC 0.00-0.31 thou/cmm ) Abs. High Eosin 1.36 LAB BASON(LOIN 0.01-0.08 thou/cmm C) Abs. Baso 0.05 Performed By: #### [id number] #### [place] [id number] BASIC PANEL Collected: 01/06/2018 Status: F Source: [facility] 8:46 AM HEALTH SYSTEM REPOSITORY TYPE CODE TESTS RESULT OUT OF REFERENCE UNITS RANGE LAB NA(LOINC) 136-145 mEq/L Sodium Blood 136 LAB K(LOINC) 3.5-5.1 mEq/L Potassium Blood 4.2 LAB CL(LOINC) 98-107 mEq/L Chloride Blood 101 LAB CO2(LOINC) 21-32 mEq/L CO2 Blood 31 LAB GLU(LOINC) 70-99 mg/dL Glucose High Blood 193 LAB BUN(LOINC) 7-18 mg/dL BUN High Blood 20 LAB CREA(LOINC 0.51-0.95 mg/dL ) High Creatinine Blood 0.99 LAB CA(LOINC) 8.5-10.1 mg/dL Calcium Blood 8.6 LAB ANGAP(LOIN 8-16 C) Anion Gap 8 Performed By: #### P8 #### [place] [address] PHOSPHORUS BLOOD Collected: 01/06/2018 Status: F Source: [facility] 8:46 AM HEALTH SYSTEM REPOSITORY TYPE CODE TESTS RESULT OUT OF REFERENCE UNITS RANGE LAB PHOS(LOINC 2.5-4.9 mg/dL ) Phosphorus Blood 3.6 Performed By: #### PHOS #### [place] [address] PROGRESS Observed: 01/05/2018 Status: COMPLETED Source: [facility] 7:02 PM CLINIC OTHER CAMPUS REPOSITORY HNO ID: [id number] Author: Mary De Santiago Service: Hospital Medicine Author Type: Physician Type: Progress Notes Filed: 01/05/2018 7:09 PM Note Text: SERVICE DATE: 01/05/2018 SERVICE TIME: 7:02 PM HOSPITAL MEDICINE PROGRESS NOTE Day: 01/05/18 SUBJECTIVE HOSPITAL MEDICINE PROGRESS NOTE ? SUBJECTIVE 62 year old female with PMH of diabetes, HTN, CVA presented with left foot pain due to left toe abcess since amputation. ? - Patient reports pain at the site of amputation, pain graded as 4/10. Pain medication are ordered for patient. - Vitals are stable. -Patient developed C.diff diarrhea during hospitalization, today she reports no loose stools, therefore isolation has been D/C. - Patient is awaiting for replacment - Patient reports no overnight events. ? ? OBJECTIVE BP 90/71 Pulse 90 Temp (Src) 97.2 (Oral) Resp 16 Ht 5' 0 (1.52m) Wt 125 lb (56.7kg) SpO2 97% BMI 24.41 kg/(m2). Physical Exam Performed: GENERAL: GENERAL APPEARANCE NCCC: well appearing, alert and in no acute distress HEART: HEART CCF: regular rate and rhythm, no murmer, gallop or rub, normal, S1, S2, no lifts, heaves, or thrills, PMI not displaced LUNGS: LUNGS CCF: clear to percussion and auscultation and no rales ABDOMEN: ABDOMEN: Soft, nontender, bowel sounds normal, no palpable organomegaly, no bruits. EXTREMITY: EXTREMITY EXAM: Normal exam of the extremities. No clubbing, cyanosis, or edema. Amputated toe has adequate dressing, dressing is clean. Normal temperature, no signs of infection. ? The remainder of the physical exam is noncontributory. OBJECTIVE BP 100/55 Pulse 85 Temp (Src) 98.2 (Oral) Resp 18 Ht 5' 0 (1.52m) Wt 125 lb (56.7kg) SpO2 96% BMI 24.41 kg/(m2). Physical Exam Performed: GENERAL: well appearing,alert,in no acute distress HEART: regular rate and rhythm,no murmer, gallop or rub,normal, S1, S2,no lifts, heaves, or thrills,PMI not displaced LUNGS: :clear to percussion and auscultation,no rales: ABDOMEN: Soft, nontender, bowel sounds normal, no palpable organomegaly, no bruits. : EXTREMITY:Normal exam of the extremities. No clubbing, cyanosis, or edema.: Lines, Drains, and Airways Line Central Line Single Lumen 12/26/17 1421 Peripherally Inserted (PICC) Right Arm 4.0 [place] 10 days Medications: Current Facility-Administered Medications: vancomycin iv piggyback 1 g in D5W 200 mL (VANCOCIN) 1 g INTRAVENOUS q 24 HR Emperatriz (Res) Apollo Last Rate: 200 mL/hr at 01/04/18 2133 1 g at 01/04/18 2133 clopidogrel 75 mg tab(s) (PLAVIX) 75 mg ORAL DAILY Emperatriz (Res) [place] 75 mg at 01/05/18 0852 oxyCODONE IR 5 mg tab(s) (ROXICODONE) 5 mg ORAL q 4 H PRN Danielle Slaughter Afia oxyCODONE IR 10 mg tab(s) (ROXICODONE) 10 mg ORAL q 4 H PRN Danielle Lee Afia 10 mg at 01/05/18 1711 vancomycin 125 mg oral liquid (VANCOCIN) 125 mg ORAL QID Avi Jimmie Bollin 125 mg at 01/05/18 1712 0.9% NaCl 10 mL 10 mL INTRAVENOUS q 12 H Caityln Hidalgo 10 mL at 01/05/18 0852 0.9% NaCl 20 mL 20 mL INTRAVENOUS PRN Caitlyn Hidalgo 20 mL at 12/30/17 1243 enoxaparin 40 mg injection (LOVENOX) 40 mg SUBCUTANEOUS DAILY Brandon (Res) Quinn 40 mg at 01/05/18 0852 ondansetron 4 mg tab(s) (ZOFRAN) 4 mg ORAL q 6 H PRN Brandon (Res) Quinn 4 mg at 12/30/17 0920 Or ondansetron (PF) 4 mg injection (ZOFRAN) 4 mg INTRAVENOUS q 6 H PRN Brandon (Res) Quinn 4 mg at 12/25/17 1922 docusate sodium 100 mg cap(s) (COLACE) 100 mg ORAL BID Brandon (Res) Quinn 100 mg at 12/29/17 2154 acetaminophen 325 mg tab(s) (TYLENOL) 325 mg ORAL q 4 H PRN Brandon (Res) Quinn 325 mg at 01/03/[address] 40 mg tab(s) (PROTONIX) 40 mg ORAL DAILY (6 AM) Brandon (Res) Quinn 40 mg at 01/05/18 0557 lisinopril 30 mg tab(s) (ZESTRIL,PRINIVIL) 30 mg ORAL DAILY Emma (Res) [place] 30 mg at 01/05/18 0852 buPROPion XL 150 mg tab(s) (WELLBUTRIN XL) 150 mg ORAL DAILY Casey (Res) MD Remigio 150 mg at 01/05/18 0852 sertraline 100 mg tab(s) (ZOLOFT) 100 mg ORAL DAILY Casey (Res) MD Remigio 100 mg at 01/05/18 0852 fluocinonide 0.05 % (LIDEX) TOPICAL DAILY Casey (Res) MD Remigio insulin lispro pen (rapid acting) (HumaLOG KWIKPEN) SUBCUTANEOUS w MEALS Quin (Res) [place]ark[place]un[place] 1 Units at 01/05/18 1712 insulin lispro 5 Units pen (rapid acting) (HumaLOG KWIKPEN) 5 Units SUBCUTANEOUS w MEALS Emma (Res) [place] 5 Units at 01/05/18 171 atorvastatin 40 mg tab(s) (LIPITOR) 40 mg ORAL AT BEDTIME Emma (Res) [place] 40 mg at 01/04/18 2123 diphenhydrAMINE 25 mg (BENADRYL) 25 mg ORAL q 6 H PRN Emma (Res) [place] 25 mg at 01/05/18 1504 amLODIPine 10 mg tab(s) (NORVASC) 10 mg ORAL DAILY Quin (Res) Sharkhatunyan 10 mg at 01/05/18 0852 insulin glargine 14 Units pen (long acting) (LANTUS SOLOSTAR, BASAGLAR KWIKPEN) 14 Units SUBCUTANEOUS AT BEDTIME Quin (Res) Sharkhatunyan 14 Units at 01/04/184 dextrose 40 % 15 g 15 g ORAL PRN Quin (Res) [place] Or glucagon 1 mg injection (GLUCAGEN) 1 mg INTRAMUSCULAR PRN Quin (Res) [place] Or dextrose 50% in water 25 mL syringe 12.5 g INTRAVENOUS PRN Quin (Res) Sharkhatunyan Diagnostic tests reviewed: WBC (thou/cmm) Date Value 01/05/2018 10.50 (H) RBC (mil/cmm) Date Value 01/05/2018 3.43 (L) Hemoglobin (g/dL) Date Value 12/08/2017 12.6 HGB (g/dL) Date Value 01/05/2018 10.2 (L) Hematocrit (%) Date Value 01/05/2018 31.0 (L) MCV (fl) Date Value 01/05/2018 90.4 MCH (pg) Date Value 01/05/2018 29.7 MCHC (%) Date Value 01/05/2018 32.9 RDW-CV (%) Date Value 12/08/2017 14.1 Platelet Count (thou/cmm) Date Value 01/05/2018 439 (H) MPV (fl) Date Value 01/05/2018 9.2 (L) Glucose (mg/dL) Date Value 01/05/2018 104 (H) BUN (mg/dL) Date Value 01/05/2018 18 Creatinine (mg/dL) Date Value 01/05/2018 1.17 (H) Sodium (mEq/L) Date Value 01/05/2018 137 Potassium (mEq/L) Date Value 01/05/2018 4.3 Chloride (mEq/L) Date Value 01/05/2018 104 CO2 (mEq/L) Date Value 01/05/2018 31 Protein, Total (g/dL) Date Value 12/21/2017 7.1 Albumin (g/dL) Date Value 01/01/2018 2.2 (L) Calcium (mg/dL) Date Value 01/05/2018 8.5 Alkaline Phosphatase (U/L) Date Value 12/21/2017 100 Bilirubin, Total (mg/dL) Date Value 12/21/2017 0.2 AST (U/L) Date Value 12/21/2017 14 ALT (U/L) Date Value 12/21/2017 14 Hep C Antibody IA (no units) Date Value 11/04/2016 Negative URINALYSIS pH Date Value Ref Range Status 09/24/2016 7.355 7.320 - 7.420 Final Specific [place], Ur Date Value Ref Range Status 12/22/2017 1.021 1.005 - 1.030 Final Glucose, Urine Date Value Ref Range Status 12/22/2017 NEGATIVE Negative mg/dL Final Bilirubin, Urine Date Value Ref Range Status 12/22/2017 NEGATIVE Negative Final Ketones, Urine Date Value Ref Range Status 12/22/2017 NEGATIVE Negative mg/dL Final Protein, Urine Date Value Ref Range Status 12/22/2017 300 (A) Negative mg/dL Final Urobilinogen, Urine Date Value Ref Range Status 12/22/2017 0.2 0.0 - 1.0 EU/dL Final WBC, Urine Date Value Ref Range Status 12/22/2017 0.4 0.0 - 5.0 /hpf Final CARE COORDINATION: No Patient Care Coordination Note on file. ASSESSMENT AND PLAN Assessment AND Plan, Hosp Problems our Service Addressed Cardiovascular Hyperlipidemia with target LDL less than 100 -atorvastatin 40mg Essential hypertension, benign -continue home lisinopril and home amlodipine -follow BP's Nephrology Electrolyte imbalance - Continue to monitor sodium - Monitor Cr - F/u BMP everyday Endocrinology * Diabetic ulcer of toe of left foot associated with type 2 diabetes mellitus, limited to breakdown of skin ([facility]) Diabetic Foot Ulcer with Surgical Site Infection s/p left 5th digit amputation -? IANDD 12/25 done - Debridement done, 5th metatarsal, left foot -Secondary closure, surgical wound, left foot done -wound culture sent , showed no growth -blood culture showed no growth -Culture bone 5th metatarsal showed no anaerobes -wound care -percocet prn q6hr ID recs-Vanc 750 mg q24h - With osteomyelitis, Staph epidermidis. Continue ABx for 6 weeks total for osteo - oxycodone prn pain -Vascular surgery recs Cont management per primary team - Wound vac removed yesterday - Vanc per ID/ vancomycin iv 1g in D5W 200ml, check levels 1/2 hour before 4th dose. - ABIs Rt leg 0.9 ,left side 0.74 left leg has moderate arterial disease. - Unlikely to need vascular intervention at this time -vascular surgery signed off Diabetes ([facility]) -A1C 14.5% from October 2017 -lantus -SSI -monitor blood glucose level. -diabetic education Medication and Non-Pharmacologic VTE Prophylaxis/Anticoagulants Anticoagulant AND Antiplatelet Medications Start Dose Route Frequency Ordered Stop 01/02/18 0900 clopidogrel 75 mg tab(s) (PLAVIX) 75 mg ORAL DAILY 01/01/18 1644 -- 12/26/17 0900 enoxaparin 40 mg injection (LOVENOX) (Medical At Risk ) 40 mg SUBCUTANEOUS DAILY 12/25/17 1803 -- 12/27/17 2230 pneumatic compression stockings (fl,oh) 12/25/17 181 vte pharmacologic prophylaxis contraindicated (fl,oh) 12/25/17 181 pneumatic compression stockings (fl,oh) 12/21/172144 pneumatic compression stockings (mt,oh) 12/21/172144 activity - mobilize patient ([place]) VTE Prophylaxis: VTE prophylaxis appropriate Plan of care discussed with: Attending SIGNATURE: Veronica Brambila MD PATIENT NAME: Davina Green DATE: January 05, 2018 TIME: 7:02 PM PAGER/CONTACT #: [phone] Evaluated independently Agreed with the above notes by Dr. Brambila which reflects my input with the following additions No diarrhea Awaiting for placement Attestation signed by Mary De Santiago MD [facility] Attending January 05, 2018 7:08 PM CONSULT PROG Observed: 01/05/2018 Status: COMPLETED Source: [place] 2:08 PM [facility] REPOSITORY HNO ID: [id number] Author: Avi Camp Service: Infectious Disease Author Type: Physician Type: Consult Progress Note Filed: 01/05/2018 2:13 PM Note Text: 01/05/2018 2:08 PM Infectious Disease Afebrile. Still some pain in foot. Still has diarrhea. Pt frustrated by EF authorization process. Dressing in place on foot wound, clean and dry. cooling pan tender around incision. Recent Labs 01/05/18 1050 01/04/18 0855 01/03/18 1801 WBC 10.50* 10.61* -- HB 10.2* 10.3* -- HCT 31.0* 32.3* -- PLT 439* 428* -- NEUTNUM 6.34* 6.23* -- CREAT 1.17* 1.11* 1.39* Imp: Diabetic foot ulcer Osteomyelitis of foot S epidermidis C diff Rec: Continue iv vanco to 01/30/18 Continue po vanc to 01/07 OK for ECF transfer from ID point. Can follow up in my office 22-3 weeks. Avi Camp MD CASE MANAGEM Observed: 01/05/2018 Status: COMPLETED Source: [place] 11:[address] [facility] OTHER [place] REPOSITORY HNO ID: [id number] Author: Brisa GuillenRn) INES Fierro Service: Care Management Author Type: Registered Nurse Type: Care Mgt Progress Note Filed: 01/05/2018 11:51 AM Note Text: CARE MANAGEMENT PROGRESS NOTE SERVICE DATE: 01/05/2018 SERVICE TIME: 11:51 AM LOS: 15 days Needs Prior to Discharge: To Be Determined [facility] has accepted patient. Awaiting auth. SIGNATURE: Brisa Fierro RN PATIENT NAME: Davina Green DATE: January 05, 2018 TIME: 11:50 AM PAGER/CONTACT #: [phone] HEMOGRAM/DIFF Collected: 01/05/2018 Status: F Source: [facility] 10:50 AM [facility]ALTH SYSTEM REPOSITORY TYPE CODE TESTS RESULT OUT OF REFERENCE UNITS RANGE LAB WBC(LOINC) 3.98-10.04 thou/cmm WBC High 10.50 LAB RBC(LOINC) 3.93-5.22 mil/cmm Low RBC 3.43 LAB HGB(LOINC) 11.2-15.7 g/dL Low Hgb 10.2 LAB HCT(LOINC) 34.1-44.9 % Low Hct 31.0 LAB MCV(LOINC) 79.4-94.8 fl MCV 90.4 LAB MCH(LOINC) 25.6-32.2 pg MCH 29.7 LAB MCHC(LOINC 31.6-34.8 % ) MCHC 32.9 LAB RDW(LOINC) 11.7-14.4 % RDW High 14.6 LAB RDWSD(LOIN 36.4-46.3 fl C) RDW SD High 48.8 LAB PLT(LOINC) 182-369 thou/cmm Platelet High 439 LAB MPV(LOINC) 9.4-12.3 fl Low MPV 9.2 LAB SEG(LOINC) % Seg Neutrophil 60.4 LAB IGRE(LOINC % ) Immature Grans 0.30 LAB LYMPH(LOIN % C) Lymphocyte 17.4 LAB MNO(LOINC) % Monocyte 8.5 LAB EOSIN(LOIN % C) Eosinophil 13.0 LAB BASO(LOINC % ) Basophil 0.4 LAB SEGN(LOINC 1.56-6.13 thou/cmm ) Abs. High Neut (ANC) 6.34 LAB IGAB(LOINC 0.00-0.05 thou/cmm ) Abs Immature Grans 0.03 LAB LYMN(LOINC 1.18-3.74 thou/cmm ) Abs. Lymph 1.83 LAB MONON(LOIN 0.27-0.70 thou/cmm C) Abs. High [place] 0.89 LAB EOSN(LOINC 0.00-0.31 thou/cmm ) Abs. High Eosin 1.37 LAB BASON(LOIN 0.01-0.08 thou/cmm C) Abs. Baso 0.04 Performed By: #### CBCD1 #### [facility] [address] [place] [address] BASIC PANEL Collected: 01/05/2018 Status: F Source: [facility] 10:50 AM HEALTH SYSTEM REPOSITORY TYPE CODE TESTS RESULT OUT OF REFERENCE UNITS RANGE LAB NA(LOINC) 136-145 mEq/L Sodium Blood 137 LAB K(LOINC) 3.5-5.1 mEq/L Potassium Blood 4.3 LAB CL(LOINC) 98-107 mEq/L Chloride Blood 104 LAB CO2(LOINC) 21-32 mEq/L CO2 Blood 31 LAB GLU(LOINC) 70-99 mg/dL Glucose High Blood 104 LAB BUN(LOINC) 7-18 mg/dL BUN Blood 18 LAB CREA(LOINC 0.51-0.95 mg/dL ) High Creatinine Blood 1.17 LAB CA(LOINC) 8.5-10.1 mg/dL Calcium Blood 8.5 LAB ANGAP(LOIN 8-16 C) Low Anion Gap 6 Performed By: #### P8 #### [place] [address] NUTRITION Observed: 01/05/2018 Status: COMPLETED Source: [place] 8:18 AM CLINIC OTHER CAMPUS REPOSITORY O ID: [id number] Author: Johanne Patel Service: Nutrition Therapy Author Type: Registered Dietitian Type: Nutrition Filed: 01/05/2018 3:10 PM Note Text: NUTRITION THERAPY PROGRESS NOTE SERVICE DATE: 01/05/2018 SERVICE TIME: 13:30 RECOMMENDED DIAGNOSIS: NO MALNUTRITION IDENTIFIED per Registered Dietitian on 12/22/17 NUTRITION CARE PLAN Problem, Etiology and Signs/Symptoms: Increased nutrient needs related to toe wound?as evidenced by non-healing toe post amputation. Intervention: 1. Encouraged PO intake and protein with each meal to help wound healing. Monitor and Evaluation: Goal: Meet >75% of estimated needs Monitor fluid/electrolyte balance Monitor labs, I/Os, vital signs, weight Discharge Nutrition Recommendations: Diet: Carbohydrate Controlled Reason for Visit: Follow-up Per HPI: This patient is a 62 year old female with the PMH of diabetes, HTN, CVA presented with left foot pain due to left toe abcess since the amputation. 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 who had concerns for ongoing infection and wanted the abscess to be drained. The patient says that she noticed ankle and toe swelling since the last 2 days. She rated the pain as 10 in intensity, sharp in nature and constant, relieved by oxycodone. We put her on PO percocet for the pain. She did notice the skin was erythematous. No history of fever, chills, NVD. She does complain of ongoing dizziness ever since she had carotid surgery for CVA . Reports 30 lbs weight loss in the last 6 months despite having normal appetite. Interval History: Per care management, plan for discharge to [facility]. Patient continues to have left foot pain due to left toe abcess per reaident note on 01/04. ACTIVE PROBLEM LIST Stroke/Cerebrovascular Accident (Hcc) Lumbago-Sciatica Due to Displacement of Lumbar Intervertebral Disc Ddd (Degenerative Disc Disease), Lumbar Cannabis Abuse Lichen Planus Lumbar Facet Arthropathy (Hcc) Essential Hypertension, Benign Nasal Obstruction Myofascial Pain Diabetic Nephropathy With Proteinuria (Hcc) Hyperlipidemia With Target Ldl Less Than 100 History of Cerebrovascular Accident (Cva) With Residual Deficit Urge Incontinence of Urine Spastic Neurogenic Bladder Moderate Single Current Episode of Major Depressive Disorder (Hcc) Type 2 diabetes mellitus with microalbuminuria, without long- term current use of insulin (HCC) Diabetic Ulcer of Toe of Left Foot Associated With Type 2 Diabetes Mellitus, Limited to Breakdown of Skin (Hcc) Lumbar Radiculopathy Wound Abscess Depression Diabetes (Hcc) Tobacco Abuse Foot Abscess, Left Penicillin Allergy C. Difficile Diarrhea Malnutrition of Moderate Degree ([facility]) Normocytic Anemia Electrolyte Imbalance PAST MEDICAL HISTORY Diagnosis Date - Anxiety - Benign hypertension 08/07/2015 - Cannabis abuse 02/23/2010 - Carotid artery disorder ([facility]) Right sided - Carotid stenosis 03/11/2010 - Cervical cancer ([facility]) - CVA (cerebral infarction) 11/2009 L hemiparesis and decreased coordination - DDD (degenerative disc disease), lumbar 02/23/2010 - Diabetic nephropathy with proteinuria ([facility]) 03/18/2014 - Diabetic ulcer of toe of left foot associated with type 2 diabetes mellitus, limited to breakdown of skin ([facility]) 10/17/2017 - Environmental allergies - Essential hypertension, benign 06/22/2012 - 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 ([facility]) - Hyperlipidemia - Lichen planus 11/09/2010 - Lumbago-sciatica due to displacement of lumbar intervertebral disc 02/23/2010 - Lumbar radiculopathy 10/17/2017 left sciatica - PVD (peripheral vascular disease) ([facility]) 2017 - Spastic neurogenic bladder 05/14/2015 - Tobacco abuse - Type 2 diabetes mellitus with microalbuminuria, without long-term current use of insulin ([facility]) 05/08/2017 PAST SURGICAL HISTORY Procedure Laterality Date - AMPUTATION METATARSAL+TOE,SINGLE Left 12/11/2017 partial 5th toe - COLONOSCOP W/ OR W/O BRSH SPEC 04/11/2016 Colonoscopy - EGD W/O OR W/BRUSH/WASH 04/11/2016 EGD - IR VASCULAR ACCESS TEAM PICC INSERTION RADIO 12/26/2017 - LUMBAR OR CAUDAL EPIDURAL STEROID INJECTION 02/21/2011 - PAST SURGICAL HISTORY OF Exploratory surgery for cervical ca Present Diet Order: Carbohydrate Controlled Nutritional Intake: >75% estimated energy needs over the past 7 day(s)Per flowsheet, patient consumed 100% of 3 meals and 1 snack on 01/04. Patient continues to report good appetite. Was eating a sandwich when I visited. Admission Weight: 56.7 kg (125 lb) Current Weight: 56.7 kg (125 lb) Body mass index is 24.41 kg/m?. normal Current Facility-Administered Medications: vancomycin iv piggyback 1 g in D5W 200 mL (VANCOCIN) 1 g INTRAVENOUS q 24 HR clopidogrel 75 mg tab(s) (PLAVIX) 75 mg ORAL DAILY oxyCODONE IR 5 mg tab(s) (ROXICODONE) 5 mg ORAL q 4 H PRN oxyCODONE IR 10 mg tab(s) (ROXICODONE) 10 mg ORAL q 4 H PRN vancomycin 125 mg oral liquid (VANCOCIN) 125 mg ORAL QID 0.9% NaCl 10 mL 10 mL INTRAVENOUS q 12 H 0.9% NaCl 20 mL 20 mL INTRAVENOUS PRN enoxaparin 40 mg injection (LOVENOX) 40 mg SUBCUTANEOUS DAILY ondansetron 4 mg tab(s) (ZOFRAN) 4 mg ORAL q 6 H PRN Or ondansetron (PF) 4 mg injection (ZOFRAN) 4 mg INTRAVENOUS q 6 H PRN docusate sodium 100 mg cap(s) (COLACE) 100 mg ORAL BID acetaminophen 325 mg tab(s) (TYLENOL) 325 mg ORAL q [address] 40 mg tab(s) (PROTONIX) 40 mg ORAL DAILY (6 AM) lisinopril 30 mg tab(s) (ZESTRIL,PRINIVIL) 30 mg ORAL DAILY buPROPion XL 150 mg tab(s) (WELLBUTRIN XL) 150 mg ORAL DAILY sertraline 100 mg tab(s) (ZOLOFT) 100 mg ORAL DAILY fluocinonide 0.05 % (LIDEX) TOPICAL DAILY insulin lispro pen (rapid acting) (HumaLOG KWIKPEN) SUBCUTANEOUS w MEALS insulin lispro 5 Units pen (rapid acting) (HumaLOG KWIKPEN) 5 Units SUBCUTANEOUS w MEALS atorvastatin 40 mg tab(s) (LIPITOR) 40 mg ORAL AT BEDTIME diphenhydrAMINE 25 mg (BENADRYL) 25 mg ORAL q 6 H PRN amLODIPine 10 mg tab(s) (NORVASC) 10 mg ORAL DAILY insulin glargine 14 Units pen (long acting) (LANTUS SOLOSTAR, BASAGLAR KWIKPEN) 14 Units SUBCUTANEOUS AT BEDTIME dextrose 40 % 15 g 15 g ORAL PRN Or glucagon 1 mg injection (GLUCAGEN) 1 mg INTRAMUSCULAR PRN Or dextrose 50% in water 25 mL syringe 12.5 g INTRAVENOUS PRN Intake/Output 01/01/18699 - 01/02/18 0659 01/02/18 07 - 01/03/18 0659 01/03/18 07 - 01/04/18 0659 01/04/18 07 - 01/05/18 0659 Intake (ml) 0 150 0 1440 Output (ml) 3 0 -- -- Net (ml) -3 150 0 1440 Surgical Incision 12/27/172049 Foot - Left (Active) Dressing Status Clean, Dry AND Intact 01/04/2018 10:11 PM Frequency of Dressing Change Daily 01/04/2018 10:11 PM Dressing Change Due 01/05/18 01/04/2018 10:11 PM Dressing /Treatment Type Kerlix Roll;Gauze/ Packing Plain 01/04/2018 10:11 PM Incision Closures Sutures;Intact 01/04/2018 10:11 PM Drainage Description None 01/04/2018 10:11 PM Drainage Amount None 01/04/2018 10:11 PM Edges Intact 01/04/2018 10:11 PM Hematoma No 01/04/2018 10:11 PM Number of days: 8 MNT Billing Type: Re-assess/15 min 3 units SIGNATURE: JOHANNE PATEL RD PATIENT NAME: Davina Green DATE: January 05, 2018 TIME: 8:18 AM PAGER: [phone] PROGRESS Observed: 01/04/2018 Status: COMPLETED Source: [place] 5:49 PM CLINIC OTHER CAMPUS REPOSITORY O ID: [id number] Author: Mary De Santiago Service: Hospital Medicine Author Type: Physician Type: Progress Notes Filed: 01/05/2018 7:08 PM Note Text: SERVICE DATE: 01/04/2018 SERVICE TIME: 5:49 PM HOSPITAL MEDICINE PROGRESS NOTE SUBJECTIVE 62 year old female with PMH of diabetes, HTN, CVA presented with left foot pain due to left toe abcess since amputation. - Patient reports pain at the site of amputation, pain graded as 4/10. Pain medication are ordered for patient. - Vitals are stable. -Patient reports no loose stools, therefore isolation has been D/C. - Patient reports no overnight effects. OBJECTIVE BP 90/71 Pulse 90 Temp (Src) 97.2 (Oral) Resp 16 Ht 5' 0 (1.52m) Wt 125 lb (56.7kg) SpO2 97% BMI 24.41 kg/(m2). Physical Exam Performed: GENERAL: GENERAL APPEARANCE NCCC: well appearing, alert and in no acute distress HEART: HEART CCF: regular rate and rhythm, no murmer, gallop or rub, normal, S1, S2, no lifts, heaves, or thrills, PMI not displaced LUNGS: LUNGS CCF: clear to percussion and auscultation and no rales ABDOMEN: ABDOMEN: Soft, nontender, bowel sounds normal, no palpable organomegaly, no bruits. EXTREMITY: EXTREMITY EXAM: Normal exam of the extremities. No clubbing, cyanosis, or edema. Amputated toe has adequate dressing, dressing is clean. Normal temperature, no signs of infection. The remainder of the physical exam is noncontributory. Medications: Current Facility-Administered Medications: vancomycin iv piggyback 1 g in D5W 200 mL (VANCOCIN) 1 g INTRAVENOUS q 24 HR Emperatriz (Res) Apollo clopidogrel 75 mg tab(s) (PLAVIX) 75 mg ORAL DAILY Emperatriz (Res) [place] 75 mg at 01/04/18 0856 oxyCODONE IR 5 mg tab(s) (ROXICODONE) 5 mg ORAL q 4 H PRN Danielle Slaughter Afia oxyCODONE IR 10 mg tab(s) (ROXICODONE) 10 mg ORAL q 4 H PRN Danielle Slaughter Afia 10 mg at 01/04/18 1350 vancomycin 125 mg oral liquid (VANCOCIN) 125 mg ORAL QID Avi Samuel Bollin 125 mg at 01/04/18 1736 0.9% NaCl 10 mL 10 mL INTRAVENOUS q 12 H Caitlyn Hidalgo 10 mL at 01/04/18 0859 0.9% NaCl 20 mL 20 mL INTRAVENOUS PRN Caitlyn Hidalgo 20 mL at 12/30/17 1243 enoxaparin 40 mg injection (LOVENOX) 40 mg SUBCUTANEOUS DAILY Brandon (Res) Quinn 40 mg at 01/04/18 0857 ondansetron 4 mg tab(s) (ZOFRAN) 4 mg ORAL q 6 H PRN Brandon (Res) Quinn 4 mg at 12/30/17 0920 Or ondansetron (PF) 4 mg injection (ZOFRAN) 4 mg INTRAVENOUS q 6 H PRN Brandon (Res) Quinn 4 mg at 12/25/17 1922 docusate sodium 100 mg cap(s) (COLACE) 100 mg ORAL BID Brandon (Res) Quinn 100 mg at 12/29/17 2154 acetaminophen 325 mg tab(s) (TYLENOL) 325 mg ORAL q 4 H PRN Brandon (Res) Quinn 325 mg at 01/03/[address] 40 mg tab(s) (PROTONIX) 40 mg ORAL DAILY (6 AM) Brandon (Res) Quinn 40 mg at 01/04/18 0445 lisinopril 30 mg tab(s) (ZESTRIL,PRINIVIL) 30 mg ORAL DAILY Emma (Res) [place] 30 mg at 01/04/18 0856 buPROPion XL 150 mg tab(s) (WELLBUTRIN XL) 150 mg ORAL DAILY Casey (Res) MD Remigio 150 mg at 01/04/18 0856 sertraline 100 mg tab(s) (ZOLOFT) 100 mg ORAL DAILY Casey (Res) MD Remigio 100 mg at 01/04/18 0856 fluocinonide 0.05 % (LIDEX) TOPICAL DAILY Casey (Res) MD Remigio insulin lispro pen (rapid acting) (HumaLOG KWIKPEN) SUBCUTANEOUS w MEALS Quin (Res) [place] 1 Units at 01/04/18 1736 insulin lispro 5 Units pen (rapid acting) (HumaLOG KWIKPEN) 5 Units SUBCUTANEOUS w MEALS Emma (Res) [place] 5 Units at 01/04/18 1736 atorvastatin 40 mg tab(s) (LIPITOR) 40 mg ORAL AT BEDTIME Emma (Res) [place] 40 mg at 01/03/18 1946 diphenhydrAMINE 25 mg (BENADRYL) 25 mg ORAL q 6 H PRN Emma (Res) [place] 25 mg at 01/04/18 1533 amLODIPine 10 mg tab(s) (NORVASC) 10 mg ORAL DAILY Quin (Res) [place] 10 mg at 01/04/18 0856 insulin glargine 14 Units pen (long acting) (LANTUS SOLOSTAR, BASAGLAR KWIKPEN) 14 Units SUBCUTANEOUS AT BEDTIME Quin (Res) [place] 14 Units at 01/03/182057 dextrose 40 % 15 g 15 g ORAL PRN Quin (Res) [place] Or glucagon 1 mg injection (GLUCAGEN) 1 mg INTRAMUSCULAR PRN Quin (Res) [place] Or dextrose 50% in water 25 mL syringe 12.5 g INTRAVENOUS PRN Quin (Res) Yessy Diagnostic tests reviewed: WBC (thou/cmm) Date Value 01/04/2018 10.61 (H) RBC (mil/cmm) Date Value 01/04/2018 3.53 (L) Hemoglobin (g/dL) Date Value 12/08/2017 12.6 HGB (g/dL) Date Value 01/04/2018 10.3 (L) Hematocrit (%) Date Value 01/04/2018 32.3 (L) MCV (fl) Date Value 01/04/2018 91.5 MCH (pg) Date Value 01/04/2018 29.2 MCHC (%) Date Value 01/04/2018 31.9 RDW-CV (%) Date Value 12/08/2017 14.1 Platelet Count (thou/cmm) Date Value 01/04/2018 428 (H) MPV (fl) Date Value 01/04/2018 9.5 Glucose (mg/dL) Date Value 01/04/2018 168 (H) BUN (mg/dL) Date Value 01/04/2018 18 Creatinine (mg/dL) Date Value 01/04/2018 1.11 (H) Sodium (mEq/L) Date Value 01/04/2018 136 Potassium (mEq/L) Date Value 01/04/2018 4.4 Chloride (mEq/L) Date Value 01/04/2018 101 CO2 (mEq/L) Date Value 01/04/2018 28 Protein, Total (g/dL) Date Value 12/21/2017 7.1 Albumin (g/dL) Date Value 01/01/2018 2.2 (L) Calcium (mg/dL) Date Value 01/04/2018 8.0 (L) Alkaline Phosphatase (U/L) Date Value 12/21/2017 100 Bilirubin, Total (mg/dL) Date Value 12/21/2017 0.2 AST (U/L) Date Value 12/21/2017 14 ALT (U/L) Date Value 12/21/2017 14 Hep C Antibody IA (no units) Date Value 11/04/2016 Negative URINALYSIS pH Date Value Ref Range Status 09/24/2016 7.355 7.320 - 7.420 Final Specific [place], Ur Date Value Ref Range Status 12/22/2017 1.021 1.005 - 1.030 Final Glucose, Urine Date Value Ref Range Status 12/22/2017 NEGATIVE Negative mg/dL Final Bilirubin, Urine Date Value Ref Range Status 12/22/2017 NEGATIVE Negative Final Ketones, Urine Date Value Ref Range Status 12/22/2017 NEGATIVE Negative mg/dL Final Protein, Urine Date Value Ref Range Status 12/22/2017 300 (A) Negative mg/dL Final Urobilinogen, Urine Date Value Ref Range Status 12/22/2017 0.2 0.0 - 1.0 EU/dL Final WBC, Urine Date Value Ref Range Status 12/22/2017 0.4 0.0 - 5.0 /hpf Final ASSESSMENT AND PLAN Assessment AND Plan, all Hosp Problems Active Hospital Problems as of 01/04/2018 Noted - Resolved Essential hypertension, benign 06/22/2012 - Present Current Assessment AND Plan -continue home lisinopril and home amlodipine -follow BP's Hyperlipidemia with target LDL less than 100 03/18/2014 - Present Current Assessment AND Plan -atorvastatin 40mg History of cerebrovascular accident (CVA) with residual deficit 04/20/2015 - Present Current Assessment AND Plan CVA and Carotid Stenosis -plavix * (Principal)Diabetic ulcer of toe of left foot associated with type 2 diabetes mellitus, limited to breakdown of skin (HCC) 10/17/2017 - Present Current Assessment AND Plan Diabetic Foot Ulcer with Surgical Site Infection s/p left 5th digit amputation -? IANDD 12/25 done - Debridement done, 5th metatarsal, left foot -Secondary closure, surgical wound, left foot done -wound culture sent , showed no growth -blood culture showed no growth -Culture bone 5th metatarsal showed no anaerobes -wound care -percocet prn q6hr ID recs-Vanc 750 mg q24h - With osteomyelitis, Staph epidermidis. Continue ABx for 6 weeks total for osteo - oxycodone prn pain -Vascular surgery recs Cont management per primary team - Wound vac removed yesterday - Vanc per ID/ vancomycin iv 1g in D5W 200ml, check levels 1/2 hour before 4th dose. - ABIs Rt leg 0.9 ,left side 0.74 left leg has moderate arterial disease. - Unlikely to need vascular intervention at this time -vascular surgery signed off Diabetes ([facility]) 12/23/2017 - Present Current Assessment AND Plan -A1C 14.5% from October 2017 -lantus -SSI -monitor blood glucose level. -diabetic education Tobacco abuse 12/23/2017 - Present Current Assessment AND Plan -smoking cessation encouraged C. difficile diarrhea 12/28/2017 - Present Current Assessment AND Plan Assessment: PLAN: --20 episodes of loose stools 12/27/17 night -c.diff precautions -oral vancomycin started 12/28/17 -diarhea improved Malnutrition of moderate degree ([facility]) 12/31/2017 - Present Current Assessment AND Plan Assessment: PLAN: -albumin 2.2 -on carb controlled diet Normocytic anemia 01/03/2018 - Present Current Assessment AND Plan Assessment: Last CBC showed Hb=10.2 and MVC of 90.7. PLAN: - F/u in an outpatient setting and iron studies should be assessed. Electrolyte imbalance 01/04/2018 - Present Current Assessment AND Plan - Continue to monitor sodium - Monitor Cr - F/u BMP everyday Medication and Non-Pharmacologic VTE Prophylaxis/Anticoagulants Anticoagulant AND Antiplatelet Medications Start Dose Route Frequency Ordered Stop 01/02/18 0900 clopidogrel 75 mg tab(s) (PLAVIX) 75 mg ORAL DAILY 01/01/18 1644 -- 12/26/17 0900 enoxaparin 40 mg injection (LOVENOX) (Medical At Risk ) 40 mg SUBCUTANEOUS DAILY 12/25/17 1803 -- 12/27/17 2230 pneumatic compression stockings (mt,oh) 12/25/17 1815 vte pharmacologic prophylaxis contraindicated (mt,oh) 12/25/17 1815 pneumatic compression stockings (mt,oh) 12/21/17 214 pneumatic compression stockings (mt,oh) 12/21/17 214 activity - mobilize patient (mt,ak) VTE Prophylaxis: VTE prophylaxis appropriate Plan of care discussed with: Attending SIGNATURE: Veronica Brambila MD PATIENT NAME: Davina Green DATE: January 04, 2018 TIME: 5:49 PM PAGER/CONTACT #: [phone] Evaluated independently Agreed with the above notes by which reflects my input with the following additions Getting better Awaiting for placement Attestation signed by Mary De Santiago MD HMS Attending January 04, 2018 7:06 PM CONSULT PROG Observed: 01/04/2018 Status: COMPLETED Source: [place] 12:49 PM CLINIC OTHER CAMPUS REPOSITORY HNO ID: [id number] Author: Avi Camp Service: Infectious Disease Author Type: Physician Type: Consult Progress Note Filed: 01/04/2018 12:54 PM Note Text: INFECTIOUS DISEASE CONSULT PROGRESS NOTE SERVICE DATE: 01/04/2018 SERVICE TIME: 12:49 PM Subjective INTERVAL HISTORY / PERTINENT Review of Systems Constitutional: Negative for chills and fever. Gastrointestinal: Negative for diarrhea. Musculoskeletal: Still some pain left foot around incision but decreasing. Current Facility-Administered Medications: clopidogrel 75 mg tab(s) (PLAVIX) 75 mg ORAL DAILY oxyCODONE IR 5 mg tab(s) (ROXICODONE) 5 mg ORAL q 4 H PRN oxyCODONE IR 10 mg tab(s) (ROXICODONE) 10 mg ORAL q 4 H PRN vancomycin 125 mg oral liquid (VANCOCIN) 125 mg ORAL QID 0.9% NaCl 10 mL 10 mL INTRAVENOUS q 12 H 0.9% NaCl 20 mL 20 mL INTRAVENOUS PRN enoxaparin 40 mg injection (LOVENOX) 40 mg SUBCUTANEOUS DAILY ondansetron 4 mg tab(s) (ZOFRAN) 4 mg ORAL q 6 H PRN Or ondansetron (PF) 4 mg injection (ZOFRAN) 4 mg INTRAVENOUS q 6 H PRN docusate sodium 100 mg cap(s) (COLACE) 100 mg ORAL BID acetaminophen 325 mg tab(s) (TYLENOL) 325 mg ORAL q [address] 40 mg tab(s) (PROTONIX) 40 mg ORAL DAILY (6 AM) lisinopril 30 mg tab(s) (ZESTRIL,PRINIVIL) 30 mg ORAL DAILY buPROPion XL 150 mg tab(s) (WELLBUTRIN XL) 150 mg ORAL DAILY sertraline 100 mg tab(s) (ZOLOFT) 100 mg ORAL DAILY fluocinonide 0.05 % (LIDEX) TOPICAL DAILY insulin lispro pen (rapid acting) (HumaLOG KWIKPEN) SUBCUTANEOUS w MEALS insulin lispro 5 Units pen (rapid acting) (HumaLOG KWIKPEN) 5 Units SUBCUTANEOUS w MEALS atorvastatin 40 mg tab(s) (LIPITOR) 40 mg ORAL AT BEDTIME diphenhydrAMINE 25 mg (BENADRYL) 25 mg ORAL q 6 H PRN amLODIPine 10 mg tab(s) (NORVASC) 10 mg ORAL DAILY insulin glargine 14 Units pen (long acting) (LANTUS SOLOSTAR, BASAGLAR KWIKPEN) 14 Units SUBCUTANEOUS AT BEDTIME dextrose 40 % 15 g 15 g ORAL PRN Or glucagon 1 mg injection (GLUCAGEN) 1 mg INTRAMUSCULAR PRN Or dextrose 50% in water 25 mL syringe 12.5 g INTRAVENOUS PRN Objective PHYSICAL EXAM: Vital Signs: BP 127/65 Pulse 92 Temp 36.6 ?C (97.9 ?F) (Axillary) Resp 16 Ht 152.4 cm (5') Wt 56.7 kg (125 lb) SpO2 99% BMI 24.41 kg/m? Physical Exam Abdominal: There is no tenderness. Musculoskeletal: She exhibits tenderness (around incision, dressing clean and dry). Vitals reviewed. DATA: Diagnostic Tests Reviewed for Today's Visit: Most recent labs Vanc trough 11.3 Micro: No new results. Recent Labs 01/04/18 0855 01/03/18 1801 WBC 10.61* -- HB 10.3* -- HCT 32.3* -- PLT 428* -- NEUTNUM 6.23* -- CREAT 1.11* 1.39* Vancomycin,Random (mg/L) Date Value 01/01/2018 9.5 Impression/Recommendations Principal Problem: Diabetic ulcer of toe of left foot associated with type 2 diabetes mellitus, limited to breakdown of skin (HCC) POA: Yes Assessment AND Plan: Continue antibiotic therapy and wound care to incision. Osteomyelitis of foot/toe- S epidermidis, s/p amputation. Vanc dose increased to 1 gm q24h, rechack trough before 4th dose. Continue to 01/30 at ec. Check cbc, creat, vanc trough and crp q Monday at [facility]. Should folow up with me 2-3 weeks. C. difficile diarrhea POA: No Assessment AND Plan: continue po vanc to 01/07. SIGNATURE: Avi Camp MD PATIENT NAME: Davina Green DATE: January 04, 2018 TIME: 12:49 PM PAGER/CONTACT #: [phone] GLUCOSE BLOOD Collected: 01/04/2018 Status: F Source: [facility] 11:00 AM HEALTH SYSTEM REPOSITORY TYPE CODE TESTS RESULT OUT OF REFERENCE UNITS RANGE LAB GLU(LOINC) 70-99 mg/dL High Glucose Blood 168 Performed By: #### GLU #### [facility] [address] [place] [address] SODIUM,URINE Collected: 01/04/2018 Status: F Source: [facility] 10:45 AM HEALTH SYSTEM REPOSITORY TYPE CODE TESTS RESULT OUT OF RANGE REFERENCE UNITS LAB NAUR(LOINC) mEq/L 61 Sodium,Urine Performed By: #### NAUR #### [facility] [address] [place] [address] CREATININE,URINE Collected: 01/04/2018 Status: F Source: [place] 10:45 [facility] REPOSITORY TYPE CODE TESTS RESULT OUT OF RANGE REFERENCE UNITS LAB CREAU(LOINC mg/dL ) 57.5 Creatinine,U rine Performed By: #### CREAU #### [facility] [address] [place] [address] HEMOGRAM/DIFF Collected: 01/04/2018 Status: F Source: [facility] 8:55 AM HEALTH SYSTEM REPOSITORY TYPE CODE TESTS RESULT OUT OF REFERENCE UNITS RANGE LAB WBC(LOINC) 3.98-10.04 thou/cmm WBC High 10.61 LAB RBC(LOINC) 3.93-5.22 mil/cmm Low RBC 3.53 LAB HGB(LOINC) 11.2-15.7 g/dL Low Hgb 10.3 LAB HCT(LOINC) 34.1-44.9 % Low Hct 32.3 LAB MCV(LOINC) 79.4-94.8 fl MCV 91.5 LAB MCH(LOINC) 25.6-32.2 pg MCH 29.2 LAB MCHC(LOINC 31.6-34.8 % ) MCHC 31.9 LAB RDW(LOINC) 11.7-14.4 % RDW High 14.7 LAB RDWSD(LOIN 36.4-46.3 fl C) RDW SD High 49.6 LAB PLT(LOINC) 182-369 thou/cmm Platelet High 428 LAB MPV(LOINC) 9.4-12.3 fl MPV 9.5 LAB SEG(LOINC) % Seg Neutrophil 58.7 LAB IGRE(LOINC % ) Immature Grans 0.20 LAB LYMPH(LOIN % C) Lymphocyte 19.3 LAB MNO(LOINC) % Monocyte 8.3 LAB EOSIN(LOIN % C) Eosinophil 12.9 LAB BASO(LOINC % ) Basophil 0.6 LAB SEGN(LOINC 1.56-6.13 thou/cmm ) Abs. High Neut (ANC) 6.23 LAB IGAB(LOINC 0.00-0.05 thou/cmm ) Abs Immature Grans 0.02 LAB LYMN(LOINC 1.18-3.74 thou/cmm ) Abs. Lymph 2.05 LAB MONON(LOIN 0.27-0.70 thou/cmm C) Abs. High [place] 0.88 LAB EOSN(LOINC 0.00-0.31 thou/cmm ) Abs. High Eosin 1.37 LAB BASON(LOIN 0.01-0.08 thou/cmm C) Abs. Baso 0.06 Performed By: #### CBCD1 #### [place] [address] BASIC PANEL Collected: 01/04/2018 Status: F Source: [facility] 8:55 AM HEALTH SYSTEM REPOSITORY TYPE CODE TESTS RESULT OUT OF REFERENCE UNITS RANGE LAB NA(LOINC) 136-145 mEq/L Sodium Blood 136 LAB K(LOINC) 3.5-5.1 mEq/L Potassium Blood 4.4 LAB CL(LOINC) 98-107 mEq/L Chloride Blood 101 LAB CO2(LOINC) 21-32 mEq/L CO2 Blood 28 LAB GLU(LOINC) 70-99 mg/dL Glucose High Blood 252 LAB BUN(LOINC) 7-18 mg/dL BUN Blood 18 LAB CREA(LOINC 0.51-0.95 mg/dL ) High Creatinine Blood 1.11 LAB CA(LOINC) 8.5-10.1 mg/dL Low Calcium Blood 8.0 LAB ANGAP(LOIN 8-16 C) Anion Gap 11 Performed By: #### P8 #### [place] [address] VANCOMYCIN,TROUGH Collected: Status: F Source: [place] 01/03/2018 7:25 PM [facility] REPOSITORY TYPE CODE TESTS RESULT OUT OF RANGE REFERENCE UNITS LAB VANCT(LOINC 10.0-20.0 mg/L ) 11.3 Vancomycin,T rough Performed By: #### VANCT #### [facility] [address] [place] [address] BASIC PANEL Collected: 01/03/2018 Status: F Source: [facility] 6:01 PM HEALTH SYSTEM REPOSITORY TYPE CODE TESTS RESULT OUT OF REFERENCE UNITS RANGE LAB NA(LOINC) 136-145 mEq/L Sodium Blood 138 LAB K(LOINC) 3.5-5.1 mEq/L Potassium Blood 3.9 LAB CL(LOINC) 98-107 mEq/L Chloride Blood 102 LAB CO2(LOINC) 21-32 mEq/L CO2 Blood 29 LAB GLU(LOINC) 70-99 mg/dL Glucose Blood 93 LAB BUN(LOINC) 7-18 mg/dL BUN High Blood 19 LAB CREA(LOINC 0.51-0.95 mg/dL ) High Creatinine Blood 1.39 LAB CA(LOINC) 8.5-10.1 mg/dL Low Calcium Blood 8.2 LAB ANGAP(LOIN 8-16 C) Anion Gap 11 Performed By: #### P8 #### [place] [address] PROGRESS Observed: 01/03/2018 Status: COMPLETED Source: [place] 3:04 PM CLINIC OTHER CAMPUS REPOSITORY HNO ID: [id number] Author: Mary De Santiago Service: Hospital Medicine Author Type: Physician Type: Progress Notes Filed: 01/03/2018 10:18 PM Note Text: SERVICE DATE: 01/03/2018 SERVICE TIME: 3:04 PM HOSPITAL MEDICINE PROGRESS NOTE Time:2:30 PM SUBJECTIVE 62 year old female with PMH of diabetes, HTN, CVA presented with left foot pain due to left toe abcess since amputation. Patient is stable, she reports pain at the amputated toe site, pain is sharp in nature and is graded as 4/10 in intensity. Pain is well controlled on Percocet. Wound dressing has been changed yesterday, wound dressing is clean and shows no signs of infection. Patient also reports resolution of the diarrhea she had recently, she has no abdominal pain or bloating. No overnight events. OBJECTIVE BP 118/73 Pulse 88 Temp (Src) 98.6 (Oral) Resp 16 Ht 5' 0 (1.52m) Wt 125 lb (56.7kg) SpO2 99% BMI 24.41 kg/(m2). Physical Exam Performed: GENERAL: GENERAL APPEARANCE NCCC: well appearing, alert and in no acute distress HEART: HEART CCF: regular rate and rhythm, no murmer, gallop or rub, normal, S1, S2, no lifts, heaves, or thrills, PMI not displaced LUNGS: LUNGS CCF: clear to percussion and auscultation, no rales and breath sounds clear and normal, bilaterally ABDOMEN: ABDOMEN: Soft, nontender, bowel sounds normal, no palpable organomegaly, no bruits. EXTREMITY: EXTREMITY EXAM: Normal exam of the extremities. No clubbing, cyanosis, or edema. Dressing of the wound of the amputated toe is present, wound seems to be clean, normal temperature of both feet. Lines, Drains, and Airways Line Central Line Single Lumen 12/26/17 1421 Peripherally Inserted (PICC) Right Arm 4.0 [place] 8 days Medications: Current Facility-Administered Medications: clopidogrel 75 mg tab(s) (PLAVIX) 75 mg ORAL DAILY Emperatriz (Res) Apollo 75 mg at 01/03/18 1030 oxyCODONE IR 5 mg tab(s) (ROXICODONE) 5 mg ORAL q 4 H PRN Danielle Slaughter Afia oxyCODONE IR 10 mg tab(s) (ROXICODONE) 10 mg ORAL q 4 H PRN Danielle Slaughter Afia 10 mg at 01/03/18 1030 vancomycin 750 mg in dextrose (iso-osmotic) 150 mL 0.75 g INTRAVENOUS q 24 HR Avi E Bollin 750 mg at 01/02/18 1955 vancomycin 125 mg oral liquid (VANCOCIN) 125 mg ORAL QID Avi E Bollin 125 mg at 01/03/18 1300 0.9% NaCl 10 mL 10 mL INTRAVENOUS q 12 H Caitlyn Hidalgo 10 mL at 01/03/18 1031 0.9% NaCl 20 mL 20 mL INTRAVENOUS PRN Caitlyn Hidalgo 20 mL at 12/30/17 1243 enoxaparin 40 mg injection (LOVENOX) 40 mg SUBCUTANEOUS DAILY Brandon (Res) Quinn 40 mg at 01/03/18 1031 ondansetron 4 mg tab(s) (ZOFRAN) 4 mg ORAL q 6 H PRN Brandon (Res) Quinn 4 mg at 12/30/17 0920 Or ondansetron (PF) 4 mg injection (ZOFRAN) 4 mg INTRAVENOUS q 6 H PRN Brandon (Res) Quinn 4 mg at 12/25/17 1922 docusate sodium 100 mg cap(s) (COLACE) 100 mg ORAL BID Brandon (Res) Quinn 100 mg at 12/29/17 2154 acetaminophen 325 mg tab(s) (TYLENOL) 325 mg ORAL q 4 H PRN Brandon (Res) Quinn 325 mg at 01/03/[address] 40 mg tab(s) (PROTONIX) 40 mg ORAL DAILY (6 AM) Brandon (Res) Quinn 40 mg at 01/03/18 0612 lisinopril 30 mg tab(s) (ZESTRIL,PRINIVIL) 30 mg ORAL DAILY Emma (Res) [place] 30 mg at 01/03/18 1030 buPROPion XL 150 mg tab(s) (WELLBUTRIN XL) 150 mg ORAL DAILY Casey (Res) MD Remigio 150 mg at 01/03/18 1030 sertraline 100 mg tab(s) (ZOLOFT) 100 mg ORAL DAILY Casey (Res) MD Remigio 100 mg at 01/03/18 1030 fluocinonide 0.05 % (LIDEX) TOPICAL DAILY Casey (Res) MD Remigio insulin lispro pen (rapid acting) (HumaLOG KWIKPEN) SUBCUTANEOUS w MEALS Quin (Res) [place] 6 Units at 01/03/18 1200 insulin lispro 5 Units pen (rapid acting) (HumaLOG KWIKPEN) 5 Units SUBCUTANEOUS w MEALS Emma (Res) [place] 5 Units at 01/03/18 1200 atorvastatin 40 mg tab(s) (LIPITOR) 40 mg ORAL AT BEDTIME Emma (Res) [place] 40 mg at 01/02/181954 diphenhydrAMINE 25 mg (BENADRYL) 25 mg ORAL q 6 H PRN Emma (Res) [place] 25 mg at 01/03/18 1030 amLODIPine 10 mg tab(s) (NORVASC) 10 mg ORAL DAILY Quin (Res) [place] 10 mg at 01/03/18 1030 insulin glargine 14 Units pen (long acting) (LANTUS SOLOSTAR, BASAGLAR KWIKPEN) 14 Units SUBCUTANEOUS AT BEDTIME Quin (Res) [place]ark[place]unyan 14 Units at 01/02/18 2117 dextrose 40 % 15 g 15 g ORAL PRN Quin (Res) [place] Or glucagon 1 mg injection (GLUCAGEN) 1 mg INTRAMUSCULAR PRN Quin (Res) [place] Or dextrose 50% in water 25 mL syringe 12.5 g INTRAVENOUS PRN Quin (Res) Shark[place]unyan Diagnostic tests reviewed: WBC (thou/cmm) Date Value 01/01/2018 9.43 RBC (mil/cmm) Date Value 01/01/2018 3.45 (L) Hemoglobin (g/dL) Date Value 12/08/2017 12.6 HGB (g/dL) Date Value 01/01/2018 10.2 (L) Hematocrit (%) Date Value 01/01/2018 31.3 (L) MCV (fl) Date Value 01/01/2018 90.7 MCH (pg) Date Value 01/01/2018 29.6 MCHC (%) Date Value 01/01/2018 32.6 RDW-CV (%) Date Value 12/08/2017 14.1 Platelet Count (thou/cmm) Date Value 01/01/2018 403 (H) MPV (fl) Date Value 01/01/2018 9.4 Glucose (mg/dL) Date Value 01/01/2018 99 BUN (mg/dL) Date Value 01/01/2018 15 Creatinine (mg/dL) Date Value 01/01/2018 0.99 (H) Sodium (mEq/L) Date Value 01/01/2018 139 Potassium (mEq/L) Date Value 01/01/2018 4.0 Chloride (mEq/L) Date Value 01/01/2018 104 CO2 (mEq/L) Date Value 01/01/2018 30 Protein, Total (g/dL) Date Value 12/21/2017 7.1 Albumin (g/dL) Date Value 01/01/2018 2.2 (L) Calcium (mg/dL) Date Value 01/01/2018 8.5 Alkaline Phosphatase (U/L) Date Value 12/21/2017 100 Bilirubin, Total (mg/dL) Date Value 12/21/2017 0.2 AST (U/L) Date Value 12/21/2017 14 ALT (U/L) Date Value 12/21/2017 14 Hep C Antibody IA (no units) Date Value 11/04/2016 Negative URINLAYSIS pH Date Value Ref Range Status 09/24/2016 7.355 7.320 - 7.420 Final Specific [place], Ur Date Value Ref Range Status 12/22/2017 1.021 1.005 - 1.030 Final Glucose, Urine Date Value Ref Range Status 12/22/2017 NEGATIVE Negative mg/dL Final Bilirubin, Urine Date Value Ref Range Status 12/22/2017 NEGATIVE Negative Final Ketones, Urine Date Value Ref Range Status 12/22/2017 NEGATIVE Negative mg/dL Final Protein, Urine Date Value Ref Range Status 12/22/2017 300 (A) Negative mg/dL Final Urobilinogen, Urine Date Value Ref Range Status 12/22/2017 0.2 0.0 - 1.0 EU/dL Final WBC, Urine Date Value Ref Range Status 12/22/2017 0.4 0.0 - 5.0 /hpf Final CARE COORDINATION: No Patient Care Coordination Note on file. ASSESSMENT AND PLAN Overview, Assessment AND Plan, all Hosp Problems Active Hospital Problems as of 01/03/2018 Noted - Resolved Essential hypertension, benign 06/22/2012 - Present Current Assessment AND Plan -continue home lisinopril and home amlodipine -follow BP's Hyperlipidemia with target LDL less than 100 03/18/2014 - Present Current Assessment AND Plan -atorvastatin 40mg History of cerebrovascular accident (CVA) with residual deficit 04/20/2015 - Present Current Assessment AND Plan CVA and Carotid Stenosis -plavix * (Principal)Diabetic ulcer of toe of left foot associated with type 2 diabetes mellitus, limited to breakdown of skin (HCC) 10/17/2017 - Present Current Assessment AND Plan Diabetic Foot Ulcer with Surgical Site Infection s/p left 5th digit amputation -? IANDD 12/25 done - Debridement done, 5th metatarsal, left foot -Secondary closure, surgical wound, left foot done -wound culture sent , showed no growth -blood culture showed no growth -Culture bone 5th metatarsal showed no anaerobes -wound care -percocet prn q6hr ID recs-Vanc 750 mg q24h - With osteomyelitis, Staph epidermidis. Continue ABx for 6 weeks total for osteo - oxycodone prn pain -Vascular surgery recs Cont management per primary team - Wound vac removed yesterday - Vanc per ID - ABIs Rt leg 0.9 ,left side 0.74 left leg has moderate arterial disease. - Unlikely to need vascular intervention at this time -vascular surgery signed off Diabetes ([facility]) 12/23/2017 - Present Current Assessment AND Plan -A1C 14.5% from October 2017 -lantus -SSI -monitor bg -diabetic education Tobacco abuse 12/23/2017 - Present Current Assessment AND Plan -smoking cessation encouraged C. difficile diarrhea 12/28/2017 - Present Current Assessment AND Plan Assessment: PLAN: --20 episodes of loose stools 12/27/17 night -c.diff precautions -oral vancomycin started 12/28/17 -diarhea improved Malnutrition of moderate degree ([facility]) 12/31/2017 - Present Current Assessment AND Plan Assessment: PLAN: -albumin 2.2 -on carb controlled diet Normocytic anemia 01/03/2018 - Present Current Assessment AND Plan Assessment: Last CBC showed Hb=10.2 and MVC of 90.7. PLAN: - F/u in an outpatient setting and iron studies should be assessed. Medication and Non-Pharmacologic VTE Prophylaxis/Anticoagulants Anticoagulant AND Antiplatelet Medications Start Dose Route Frequency Ordered Stop 01/02/18 0900 clopidogrel 75 mg tab(s) (PLAVIX) 75 mg ORAL DAILY 01/01/18 1644 -- 12/26/17 0900 enoxaparin 40 mg injection (LOVENOX) (Medical At Risk ) 40 mg SUBCUTANEOUS DAILY 12/25/17 1803 -- 12/27/17 2230 pneumatic compression stockings (fl,oh) 12/25/17 181 vte pharmacologic prophylaxis contraindicated (fl,oh) 12/25/17 181 pneumatic compression stockings (fl,oh) 12/21/172144 pneumatic compression stockings (mt,oh) 12/21/172144 activity - mobilize patient (mt,ak) VTE Prophylaxis: VTE prophylaxis appropriate Plan of care discussed with: Attending SIGNATURE: Veronica Brambila MD PATIENT NAME: Davina Green DATE: January 03, 2018 TIME: 3:04 PM PAGER/CONTACT #: [phone] Evaluated independently Agreed with the above notes by Dr. Brambila which reflects my input with the following additions Diarrhea lot better Will d/c isolation in no diarrhea Awaiting for placement Attestation signed by Mary De Santiago MD [facility] Attending January 03, 2018 10:17 PM THERAPY NT Observed: 01/03/2018 Status: COMPLETED Source: [place] 3:01 PM CLINIC OTHER CAMPUS REPOSITORY HNO ID: [id number] Author: Ivania (Otr/LSarina Weaver Service: Occupational Therapy Author Type: Occupational Therapist Type: Therapy (PT/OT/Speech/Resp) Filed: 01/03/2018 3:11 PM Note Text: Occupational Therapy Treatment SERVICE DATE: 01/03/2018 SERVICE TIME: 1443 to 1455 ROOM: [place] [address] Recommended Discharge Disposition: Home Recommended Discharge Disposition Comments: Pt reports she is going to a SNF for IV antibiotics. pt will benefit from OT during stay to increase independence with high level ADL/IADL to prior level of independence prior to return home Anticipated Discharge Needs: Physical Assist at Home;Equipment Physical Assist at Home for: Cleaning;Laundry;Shopping;Transportation Recommended Discharge Equipment: Wheeled Walker;Shower Chair OT Recommendations to Nursing: To Bathroom for ADL?s /and or Toileting;OOB for meals;With assist of 1 person Equipment: Wheeled Walker OT 6 Clicks Score: 24 Precautions/Activity Restrictions: Weight Bearing Restrictions Precaution/Activity Restriction Comments: heel weight bearing Isolation Type: Contact C-Diff Extremity With Weight Bearing Restricted: Left Lower Extremity Left Lower Extremity Weight Bearing Status: Heel Weight Bearing ASSESSMENT: Patient progressing well and is motivated to do for herself. Limited primarily by foot pain, hospital environment. Mild deficits remain in high level ADL for independence, as well as home management tasks to return home safely at prior level of function. Anticipate further gains to independent/modified indep level with post acute therapy as needed. Patient Disposition at Start of Session: Supine in Bed;Call Thomas in Reach Patient Disposition at End of Session: Supine in Bed;Call Thomas in Reach Tolerated Full Session (but requesting to rest in bed after ADL until pain meds) Occupational Therapy Problem List: Impaired Self Care;Decreased Activity Tolerance;Functional Mobility Impairment Patient /Caregiver Goals: Go Home Goals for Plan of Care: Grooming with: Independent Upper Body Bathing with: Independent Lower Body Bathing with: Independent Lower Body Dressing with: Independent Tolerate (minutes of functional activity): 45 Functional Activity with: Modified Independent Home Management Skills with: Modified Independent Demonstrate Competence With Education with: Independent Transfer: all functional transfers: modified independent (with wheeled walker) Progress Toward Goals: Progressing as expected PLAN: Treatment Frequency (times per week): 5 (1-4) Current admission Treatment Interventions: Education;Self Care / Home Management;Functional Mobility Training Plan of Care developed with: Patient TREATMENT INTERVENTIONS: Therapy Diagnosis: Reduced mobility-other;Decreased activities of daily living (ADL) Interventions Provided: Self Long-Term Management (73470) Self Long-Term Management (76141) Treatment Minutes: 12 1 unit Skilled Intervention(s):ADL training provided, with tasks completed or simulated at bathroom level. Wheeled walker used for ADL mobility. Walker safety/ADL transfer education provided. Cues for scooting fully to edge of chair/bed to prepare for transfer, as well as for hand placement and body positioning to increase ease/independence with sit<>stand.Education for safety turning/backing with walker in small or tight areas for increased safety/decreased risk for falls as patient tends to leave the walker near door and attempt to walk backwards to toileting without device. Improved technique after education, however would benefit from further education to reinforce. LB dressing training, with cues for sitting to reach feet, then standing to manage clothing, as well as donning LLE in leg of pants first for protection and ease of task. Review of plan of care and discharge recommendation provided. Patient reports that she thinks a facility has accepted her and is anxious for next level of care. Positioned for comfort, RN aware of pain/request for medication. Call light and needs in reach and reinforced use of call light for safety. Total Timed Code Treatment Minutes: 12 Total Treatment Time (minutes): 12 SUBJECTIVE: Current Hospital Course: Chart reviewed and no significant medical updates relevant to therapy were noted. Patient is positive for CDfif and in contact isolation and remains heel weight bearing on LLE. Wound vac no longer in place. Reason for Occupational Therapy Consult: post acute placement Relevant Past Medical History: DM2, wound abscess, gangrene Patient Report: Pleasant, cooperative, motivated for independence and to get to next level of care to get antibiotics and get back home. Reports pain in left foot/toe, requesting pain medications . RN notified. Patient reports being excited that she thinks she has an accepting skilled facility for IV and rehab as needed post acute. Anticipate d/c soon. Home Environment Patient Lives With: ( and son. Was at SNF prior to admit) Assistance Available: 24 Hour (son ) Entry To Home: Stairs;With Rail Number Of Stairs Into Home: 5 Number Of Stairs To Bed/Bath: 10 Stairs to Bed/Bath with: Unilateral Rail Tub/Shower Type: tub shower Equipment Owned: Crutch(es) Prior Functional Level: Within Functional Limits (pt mostly indep with ADLs at facility prior to arrival) OBJECTIVE: Responsiveness: Alert;Awake Follows Commands: 3-step Commands Psychosocial Deficit: intact CURRENT FUNCTIONAL STATUS: Current Activities of Daily Living Assist Level Feeding Independent Grooming Modified Independent Bathing Upper Body Stand By Assistance (at sink) Bathing Lower Body Stand By Assistance (standing to complete tasks) Dressing Upper Body Modified Independent Dressing Lower Body Stand By Assistance (sit/stand) Toileting Modified Independent Instrumental Activities of Daily Living Assist Level Meal/Beverage Prep Maximal Assistance Light Cleaning Maximal Assistance Laundry Total Assistance Medication Management with Strategies Functional Mobility Assist Level Rolling Modified Independent Supine to Sit Modified Independent Sit to Supine Modified Independent Scooting Modified Independent Sit to Stand Modified Independent Stand to Sit Modified Independent Bed to Chair Stand Pivot Standard Walker Toilet/Commode Stand By Assistance (to bathroom toilet with walker; min cues safety backing) Functional Mobility Stand By Assistance With Wheelchair Follow Hand Dominance: Right Range Of Motion: Within Functional Limits Strength: Within Functional Limits Would benefit from maximizing BUE strength due to limited WB LLE/walker use. Activity Tolerance: Standing Activity (weight bearing on heel; limited due to pain at time) Standing Activity: grooming/self care tasks at sink' toileting Standing Activity Tolerance (in minutes): 6 Please see discipline specific clinical documentation flowsheet for complete details for this therapy evaluation/treatment. SIGNATURE: Ivania Weaver OTR/L PATIENT NAME: Davina Green DATE: January 03, 2018 TIME: 3:01 PM CASE MANAGEM Observed: 01/03/2018 Status: COMPLETED Source: [place] 2:[address] [facility] OTHER [place] REPOSITORY HNO ID: [id number] Author: Brisa GuillenRn) INES Fierro Service: Care Management Author Type: Registered Nurse Type: Care Mgt Progress Note Filed: 01/03/2018 2:55 PM Note Text: CARE MANAGEMENT PROGRESS NOTE SERVICE DATE: 01/03/2018 SERVICE TIME: 2:53 PM LOS: 13 days Needs Prior to Discharge: To Be Determined Met with patient. She is aware that [facility] has Accepted her and we are awaiting precert for discharge there. SIGNATURE: Brisa Fierro RN PATIENT NAME: Davina Green DATE: January 03, 2018 TIME: 2:53 PM PAGER/CONTACT #: [phone] CASE MANAGEM Observed: 01/03/2018 Status: COMPLETED Source: [place] 8:44 AM [facility] REPOSITORY HNO ID: [id number] Author: Brisa De La Cruz) INES Fierro Service: Care Management Author Type: Registered Nurse Type: Care Mgt Progress Note Filed: 01/03/2018 8:45 AM Note Text: CARE MANAGEMENT PROGRESS NOTE SERVICE DATE: 01/03/2018 SERVICE TIME: 8:44 AM LOS: 13 days Needs Prior to Discharge: To Be Determined Met with patient this am to clarify discharge plan as per RN [facility] [facility]. Reminded patient that she cannot return as they do not have a private for her now that she has C-Diff. and that she provided new SNF choices yesterday. Aware that we are waiting for a response from these facilities. Patient verbalized understanding. ? SIGNATURE: Brisa Fierro RN PATIENT NAME: Davina Green DATE: January 03, 2018 TIME: 8:44 AM PAGER/CONTACT #: [phone] PROGRESS Observed: 01/02/2018 Status: COMPLETED Source: [place] 3:29 PM [facility] REPOSITORY HNO ID: [id number] Author: Mary De Santiago Service: Hospital Medicine Author Type: Physician Type: Progress Notes Filed: 01/02/2018 9:43 PM Note Text: SERVICE DATE: 01/02/2018 SERVICE TIME: 3:29 PM HOSPITAL MEDICINE PROGRESS NOTE SUBJECTIVE Interval HPI: Improved. Pt denies any acute complaint. Diarrhea improved. No nausea and vomiting. Awaiting placement OBJECTIVE BP 119/78 Pulse 96 Temp (Src) 99 (Oral) Resp 18 Ht 5' 0 (1.52m) Wt 125 lb (56.7kg) SpO2 99% BMI 24.41 kg/(m2). Physical Exam Performed: General appearance: Well appearing, alert, in no acute distress, well-hydrated, well nourished. and Thin Head: normocephalic, atraumatic Neck: Supple, no adenopathy; thyroid symmetric, normal size, no bruits Back: Normal exam, no pain to palpation Lungs: Lungs clear to auscultation. No wheezing, rhonchi, rales Heart: RRR without murmur, gallop, or rubs. ?No ectopy Abdomen: ?Abdomen soft, non-tender. Bowel sounds normal. No masses, organomegaly Extremities: Positive findings: left foot 5th digit amputation, erythematous, swelling decreased, pain decreased Diabetic Foot: ?Deformities: left 5th digit amputation Lines, Drains, and Airways Line Central Line Single Lumen 12/26/17 1421 Peripherally Inserted (PICC) Right Arm 4.0 O[place] 7 days Medications: Reviewed Diagnostic tests reviewed: Most recent labs Recent Labs 01/01/18 0308 12/31/17 0336 12/30/17 0113 12/08/17 1457 WBC 9.43 8.66 8.81 < > 8.52 RBC 3.45* 3.53* 3.50* < > 4.22 HB 10.2* 10.5* 10.1* < > 12.6 HCT 31.3* 31.5* 31.7* < > 37.4 PLT 403* 416* 407* < > 464* MCV 90.7 89.2 90.6 < > 88.6 MCH 29.6 29.7 28.9 < > 29.9 MPV 9.4 9.3* 9.5 < > 9.4 RDW 14.7* 14.8* 14.7* < > -- ABSNEUT -- -- -- -- 5.61 NEUTP -- -- -- -- 65.9 LYMPHP -- -- -- -- 21.7 MONOP -- -- -- -- 6.1 EODINP -- -- -- -- 5.4 < > = values in this interval not displayed. Recent Labs 01/01/18 0308 12/31/17 0336 12/30/17 0113 12/29/17 0345 12/28/17 0655 12/21/17 1045 GLUC 99 102* 111* 55* 85 < > 174* NA 139 143 142 143 141 < > 135* K 4.0 3.9 3.8 3.3* 3.5 < > 4.3 CHLOR 104 107 105 107 106 < > 105 CO2 30 31 32 31 28 < > 22 CREAT 0.99* 0.93 0.77 0.75 0.84 < > 0.96* BUN 15 12 8 11 11 < > 31* ANION -- -- 9 8 11 < > 12 CA 8.5 8.4* 8.3* 8.3* 8.3* < > 8.6 TPROT -- -- -- -- -- -- 7.1 ALB 2.2* 2.2* -- -- -- -- 2.6* TBILI -- -- -- -- -- -- 0.2 ALKPHOS -- -- -- -- -- -- 100 AST -- -- -- -- -- -- 14 ALT -- -- -- -- -- -- 14 < > = values in this interval not displayed. Most recent labs CARE COORDINATION: No Patient Care Coordination Note on file. ASSESSMENT AND PLAN Assessment AND Plan, all Hosp Problems Active Hospital Problems as of 01/02/2018 Noted - Resolved Hospital * (Principal)Diabetic ulcer of toe of left foot associated with type 2 diabetes mellitus, limited to breakdown of skin ([facility]) 10/17/2017 - Present Current Assessment AND Plan Diabetic Foot Ulcer with Surgical Site Infection s/p left 5th digit amputation -? IANDD 12/25 done - Debridement done, 5th metatarsal, left foot -Secondary closure, surgical wound, left foot done -wound culture sent , showed no growth -blood culture showed no growth -Culture bone 5th metatarsal showed no anaerobes -wound care -percocet prn q6hr ID recs-Vanc 750 mg q24h - With osteomyelitis, Staph epidermidis. Continue ABx for 6 weeks total for osteo - oxycodone prn pain -Vascular surgery recs Cont management per primary team - Wound vac removed yesterday - Vanc per ID - ABIs Rt leg 0.9 ,left side 0.74 left leg has moderate arterial disease. - Unlikely to need vascular intervention at this time -vascular surgery signed off Diabetes (HCC) 12/23/2017 - Present Current Assessment AND Plan -A1C 14.5% from October 2017 -lantus -SSI -monitor bg -diabetic education Essential hypertension, benign 06/22/2012 - Present Current Assessment AND Plan -continue home lisinopril and home amlodipine -follow BP's Hyperlipidemia with target LDL less than 100 03/18/2014 - Present Current Assessment AND Plan -atorvastatin 40mg Tobacco abuse 12/23/2017 - Present Current Assessment AND Plan -smoking cessation encouraged History of cerebrovascular accident (CVA) with residual deficit 04/20/2015 - Present Current Assessment AND Plan CVA and Carotid Stenosis -plavix C. difficile diarrhea 12/28/2017 - Present Current Assessment AND Plan Assessment: PLAN: --20 episodes of loose stools 12/27/17 night -c.diff precautions -oral vancomycin started 12/28/17 -diarhea improved Malnutrition of moderate degree ([facility]) 12/31/2017 - Present Current Assessment AND Plan Assessment: PLAN: -albumin 2.2 -on carb controlled diet Medication and Non-Pharmacologic VTE Prophylaxis/Anticoagulants Anticoagulant AND Antiplatelet Medications Start Dose Route Frequency Ordered Stop 01/02/18 0900 clopidogrel 75 mg tab(s) (PLAVIX) 75 mg ORAL DAILY 01/01/18 1644 -- 12/26/17 0900 enoxaparin 40 mg injection (LOVENOX) (Medical At Risk ) 40 mg SUBCUTANEOUS DAILY 12/25/17 1803 -- 12/27/17 2230 pneumatic compression stockings (mt,oh) 12/25/17 181 vte pharmacologic prophylaxis contraindicated (mt,oh) 12/25/17 181 pneumatic compression stockings (mt,oh) 12/21/172144 pneumatic compression stockings (mt,oh) 12/21/172144 activity - mobilize patient (mt,ak) VTE Prophylaxis: VTE prophylaxis appropriate Plan of care discussed with: Attending and Patient Disposition:SNF. Awaiting placement SIGNATURE: Casey Flood MD PATIENT NAME: Davina Green DATE: January 02, 2018 TIME: 3:29 PM PAGER/CONTACT #: [phone] Evaluated independently Agreed with the above notes by Dr. Flood which reflects my input with the following additions Feeling better Diarrhea improving Exam unremarkable Labs noted Stable for discharge Discussed with casework specialist Attestation signed by Mary De Santiago MD [facility] Attending January 02, 2018 9:40 PM CASE MANAGEM Observed: 01/02/2018 Status: COMPLETED Source: [place] 1:[address] [facility] REPOSITORY HNO ID: [id number] Author: Brisa GuillenRn) INES Fierro Service: Care Management Author Type: Registered Nurse Type: Care Mgt Progress Note Filed: 01/02/2018 2:30 PM Note Text: CARE MANAGEMENT PROGRESS NOTE SERVICE DATE: 01/02/2018 SERVICE TIME: 1:57 PM LOS: 12 days Needs Prior to Discharge: To Be Determined Call made to [facility] regarding referral placed. They are unable to accept patient as they have no female beds. Call to [facility] made. Left VM. Awaiting return call. [facility] They are [facility] to [facility] patient. New referrals to [facility] and [facility] pending. SIGNATURE: Brisa Fierro RN PATIENT NAME: Davina Green DATE: January 02, 2018 TIME: 1:57 PM PAGER/CONTACT #: [phone] CONSULT PROG Observed: 01/02/2018 Status: COMPLETED Source: [place] 1:56 PM [facility] REPOSITORY HNO ID: [id number] Author: Avi Camp Service: Infectious Disease Author Type: Physician Type: Consult Progress Note Filed: 01/02/2018 2:03 PM Note Text: INFECTIOUS DISEASE CONSULT PROGRESS NOTE SERVICE DATE: 01/02/2018 SERVICE TIME: 1:56 PM Subjective INTERVAL HISTORY / PERTINENT Review of Systems Constitutional: Negative for chills and fever. Gastrointestinal: Negative for abdominal pain and diarrhea. Musculoskeletal: Some residual pain left foot at incision. Day 12 iv vanco Day 5 po vanco Current Facility-Administered Medications: clopidogrel 75 mg tab(s) (PLAVIX) 75 mg ORAL DAILY oxyCODONE IR 5 mg tab(s) (ROXICODONE) 5 mg ORAL q 4 H PRN oxyCODONE IR 10 mg tab(s) (ROXICODONE) 10 mg ORAL q 4 H PRN vancomycin 750 mg in dextrose (iso-osmotic) 150 mL 0.75 g INTRAVENOUS q 24 HR vancomycin 125 mg oral liquid (VANCOCIN) 125 mg ORAL QID 0.9% NaCl 10 mL 10 mL INTRAVENOUS q 12 H 0.9% NaCl 20 mL 20 mL INTRAVENOUS PRN enoxaparin 40 mg injection (LOVENOX) 40 mg SUBCUTANEOUS DAILY ondansetron 4 mg tab(s) (ZOFRAN) 4 mg ORAL q 6 H PRN Or ondansetron (PF) 4 mg injection (ZOFRAN) 4 mg INTRAVENOUS q 6 H PRN docusate sodium 100 mg cap(s) (COLACE) 100 mg ORAL BID acetaminophen 325 mg tab(s) (TYLENOL) 325 mg ORAL q [address] 40 mg tab(s) (PROTONIX) 40 mg ORAL DAILY (6 AM) lisinopril 30 mg tab(s) (ZESTRIL,PRINIVIL) 30 mg ORAL DAILY buPROPion XL 150 mg tab(s) (WELLBUTRIN XL) 150 mg ORAL DAILY sertraline 100 mg tab(s) (ZOLOFT) 100 mg ORAL DAILY fluocinonide 0.05 % (LIDEX) TOPICAL DAILY insulin lispro pen (rapid acting) (HumaLOG KWIKPEN) SUBCUTANEOUS w MEALS insulin lispro 5 Units pen (rapid acting) (HumaLOG KWIKPEN) 5 Units SUBCUTANEOUS w MEALS atorvastatin 40 mg tab(s) (LIPITOR) 40 mg ORAL AT BEDTIME diphenhydrAMINE 25 mg (BENADRYL) 25 mg ORAL q 6 H PRN amLODIPine 10 mg tab(s) (NORVASC) 10 mg ORAL DAILY insulin glargine 14 Units pen (long acting) (LANTUS SOLOSTAR, BASAGLAR KWIKPEN) 14 Units SUBCUTANEOUS AT BEDTIME dextrose 40 % 15 g 15 g ORAL PRN Or glucagon 1 mg injection (GLUCAGEN) 1 mg INTRAMUSCULAR PRN Or dextrose 50% in water 25 mL syringe 12.5 g INTRAVENOUS PRN Objective PHYSICAL EXAM: Vital Signs: BP 119/78 Pulse 96 Temp 37.2 ?C (99 ?F) (Oral) Resp 18 Ht 152.4 cm (5') Wt 56.7 kg (125 lb) SpO2 99% BMI 24.41 kg/m? Physical Exam Cardiovascular: Normal rate. No murmur heard. Pulmonary/Chest: Effort normal. She has no rales. Abdominal: Soft. Bowel sounds are normal. There is no tenderness. Musculoskeletal: Left foot incision dressing in place, tender around incision. No significant drainage. Vitals reviewed. DATA: Diagnostic Tests Reviewed for Today's Visit: Most recent labs Micro: No new results. Recent Labs 01/01/18 0308 12/31/17 0336 WBC 9.43 8.66 HB 10.2* 10.5* HCT 31.3* 31.5* PLT 403* 416* NEUTNUM 4.81 4.81 CREAT 0.99* 0.93 Vancomycin,Random (mg/L) Date Value 01/01/2018 9.5 Impression/Recommendations Principal Problem: Diabetic ulcer of toe of left foot associated with type 2 diabetes mellitus, limited to breakdown of skin (HCC) POA: Yes Assessment AND Plan: continue atbs and wound care. Osteomyelitis of foot/toe- Due to S epidermidis, s/p amputation, continue iv vanco 30 more days to 01/30. Agree with ECF transfer. Check cbc, creat, trough vanco level and crp q Monday while on iv vanco. C. difficile diarrhea POA: No Assessment AND Plan: improved, po vanco to 01/07. SIGNATURE: Avi Camp MD PATIENT NAME: Davina Green DATE: January 02, 2018 TIME: 1:56 PM PAGER/CONTACT #: [phone] CONSULT PROG Observed: 01/02/2018 Status: COMPLETED Source: [place] 10:18 AM CL[facility]IC OTHER CAMPUS REPOSITORY O ID: [id number] Author: Jarocho Geronimo Service: Wound Care Team Author Type: Nurse Practitioner Type: Consult Progress Note Filed: 01/02/2018 10:19 AM Note Text: Wound Care Consult Team Assessment Note: PATIENT NAME: Davina Green Reason for Assessment: left lateral foot Assessment: Left, Lateral Foot is a Surgical Wound and has received a status of Not Healed. Subsequent wound encounter measurements are 5cm length x 0cm width x 0cm depth, with an area of 0 sq cm and a volume of 0 cubic cm. No tunneling has been noted. No undermining has been noted. There was no drainage noted. The patient reports a wound pain of level 6/10. The wound margin is undefined. The wound is improving. The periwound skin moisture is normal. The periwound skin color is normal. The periwound skin exhibited: Edema. Periwound skin does not exhibit signs or symptoms of infection. Local Pulse is Weak. General Notes: Wound Evaluation: Improved Goals: Heal wound Recommendations: Dry gauze dressing daily to left foot. Please see wound expert for pictures and detailed assessment under scanned documents. Electronically Signed By: ORIN Velarde, LIZZIE PLAN OF CARE Observed: 01/02/2018 Status: COMPLETED Source: [place] 10:16 AM [facility] REPOSITORY [facility] ID: [id number] Author: Raj Langston (Pilot Safety Inspector) Service: Pharmacy Author Type: Pharmacist Type: Plan of Care Filed: 01/02/2018 11:40 AM Note Text: MEDICATION HISTORY AND MEDICATION RECONCILIATION Patient Name:Dread Green : 1955 Source of history:Patient: Reliability of source: Appears reliable, clearly identified: Medication dose and Medication frequency and Pharmacy records: [facility] [phone] Medication Nonadherence Identified: Patient unsure of a few medications since she has been in the hospital for many days, particularly she is unsure if she takes dicyclomine and naproxen. She seems familiar with the names bupropion and buspirone, but is unsure which she is currently taking, if either. Bupropion last filled 09/2017 (30 day supply), buspirone last filled 08/2017 (30 day supply). When questioned, patient states she believes she takes 3 medications for her mood. The above information represents the best possible medication history: Yes Reconciliation completed? 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 Chaparrita Hidalgo - Pravachol [Pravasta* Intolerance Fatigue, loss of appetite. 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 Yes insulin glargine (LANTUS SOLOSTAR, BASAGLAR KWIKPEN) 100 unit/mL (3 mL) inpn Inject 12 Units subcutaneously daily at bedtime. Yes insulin lispro (HUMALOG KWIKPEN) 100 unit/mL pen Inject 4 Units subcutaneously three times daily before meals. Yes clopidogrel (PLAVIX) 75 mg tablet Take 75 mg by mouth once daily. Yes mometasone (ELOCON) 0.1 % cream Apply 1 application to affected area once daily. Yes sertraline (ZOLOFT) 100 mg tablet Take 1 tablet by mouth once daily. Yes omeprazole (PRILOSEC) 20 mg capsule Take 1 capsule by mouth daily before breakfast. 1/2 hr before meal. Yes buPROPion XL (WELLBUTRIN XL) 150 mg 24 hr tablet Take 1 tablet by mouth once daily. Yes lisinopril-hydrochlorothiazide (PRINZIDE,ZESTORETIC) 10-12.5 mg per tablet Take 1 tablet by mouth every morning. Yes amLODIPine (NORVASC) 10 mg tablet Take 1 tablet by mouth once daily. Yes busPIRone (BUSPAR) 10 mg tablet Take 1 tablet by mouth three times daily. Yes dicyclomine (BENTYL) 20 mg tablet Take 1 tablet by mouth three times daily before meals. Insulin [place], Disposable, (PEN NEEDLES) 31 gauge x 1/4 ndle Use one needle with each insulin dose. 4/day alcohol swabs (ALCOHOL WIPES) padm Apply 1 application to affected area four times daily. blood sugar diagnostic (FREESTYLE LITE STRIPS) test strip Test blood sugar(s) 4 times daily. Dx: Type 2 DM - Uncontrolled E11.65 Insulin: Yes lancets (FREESTYLE LANCETS) 28 gauge misc Test blood sugar(s) 4 times daily. Dx: Type 2 DM - Uncontrolled E11.65 Insulin: Yes Simethicone (GAS RELIEF) 125 mg chewable tablet Take 1 tablet by mouth every 6 hours as needed. SUMAtriptan (IMITREX) 50 mg tablet 50mg by mouth as needed for migraine headache; may repeat every 2 hrs as needed for migraine(max 4/day and 9/mo) acetaminophen (TYLENOL ARTHRITIS PAIN) 650 mg CR tablet Take 2 tablets by mouth twice daily as needed for Pain. naproxen (NAPROSYN) 500 mg tablet Take 1 tablet by mouth twice daily as needed for Pain. Take with food. RAJ LANGSTON, SALES ACCOUNT SPECIALIST January 02, 2018 10:17 AM THERAPY NT Observed: 01/02/2018 Status: COMPLETED Source: [place] 8:58 AM CLINIC OTHER CAMPUS REPOSITORY O ID: [id number] Author: Magdalena Pena Service: Physical Therapy Author Type: Resident Care Associate Type: Therapy (PT/OT/Speech/Resp) Filed: 01/02/2018 9:09 AM Note Text: Attestation signed by Shea Andino PT at 01/02/2018 9:52 AM I reviewed and agree with the documentation corresponding to this therapy visit. SIGNATURE: Shea Andino PT DATE: January 02, 2018 TIME: 9:52 AM Physical Therapy Treatment SERVICE DATE: 01/02/2018 SERVICE TIME: 829 to 853 ROOM: [address] Recommended Discharge Disposition: (Anticipate d/c to SNF for cont IV antibiotics; rec cont PT) Recommended Discharge Disposition Comments: Pt mobilizing safely with assistive device on stairs and level surfaces. Anticipated Discharge Needs: Physical Assist at Home;Equipment Physical Assist at Home for: Cleaning;Laundry;Shopping;Transportation Recommended Discharge Equipment: Wheeled Walker PT Recommendations to Nursing: Ambulate with device;To bathroom;OOB for Meals;Transfer to/from chair;With assist of 1 person Device: Wheeled Walker PT 6 Clicks Score: 20 Precautions/Activity Restrictions: Weight Bearing Restrictions;Lines/Tubes/Drains (wound vac.) Precaution/Activity Restriction Comments: heel weight bearing Isolation Type: Contact C-Diff Extremity With Weight Bearing Restricted: Left Lower Extremity Left Lower Extremity Weight Bearing Status: Heel Weight Bearing ASSESSMENT : Patient slowly progressing towards goals. Patient able to increase ambulation distance and demonstrated improved adherence to weight bearing restrictions into left heel. Continue to recommend continued physical therapy at time of discharge to promote independence with functional mobility and activities of daily living. Plan is to halfway facility for continued IV antibiotics. Patient Disposition at Start of Session: Supine in Bed;Call [facility] [place] Patient Disposition at End of Session: Other: See Comment (Sitting up on edge of bed) Physical Therapy Problem List: Pain;Decreased Strength;Functional Mobility Impairment Patient /Caregiver Goals: Walk Goals for Plan of Care: Able to perform HEP with: Verbal Cues Only Transfer sit to/from stand with: Supervision Ambulate with: Supervision Distance: 100 Device: Wheeled Walker Ambulate up and down steps with: Stand By Assistance Number of steps: 5 Device: Rail;Crutch(es) (goal met) Progress Toward Goals: Progressing slower than expected Due To: (medical acuity C-diff) Rehab Potential: Good PLAN: Treatment Frequency (times per week): 5 (2-5) Current admission Treatment Interventions: Education;Strengthening;Functional Mobility Training Plan of Care developed with: Patient TREATMENT INTERVENTIONS: Therapy Diagnosis: Reduced mobility-other;General symptoms and signs-other Interventions Provided: Therapeutic Exercise (97153);Therapeutic Activity (87100) Therapeutic Exercise (42117) Treatment Minutes: 13 1 unit Skilled Intervention(s): Instruction in therapeutic exercise: Patient completed general strengthening exercises in supine, at edge of bed or chair (ankle pump, quad set, gluteal set, heel slide, hip abd/add, straight leg raise, long arc quad, short arc quad, hip adductor squeeze) x 15-20 reps bilateral lower extremity, with minimal verbal cueing for facilitation of muscle control, optimal recruitment and alignment Exercise handout issued with instruction to perform 2-3/day 15-20 repetitions to increase strength and endurance Therapeutic Activity (01724) Treatment Minutes: 11 1 unit Skilled Intervention(s): Instruction in sit to stand technique with proper hand placement and body positioning at edge of bed provided minimal cueing for weight bearing into left heel only Instruction in stand to sit technique with lower extremities touching bed and reaching back for surface Completed commode transfers with minimal cueing to use grab bar for better stability/safety Ambulated with wheeled walker 20 feet x 2 within room provided contact guard assist and minimal cueing for step to sequencing for adherence to weight bearing restrictions Total Timed Code Treatment Minutes: 24 Total Treatment Time (minutes): 24 SUBJECTIVE: Current Hospital Course: Chart reviewed and no significant medical updates relevant to therapy were noted Reason for Physical Therapy Consult : post acute placement Patient Report: C/O 5/10 left foot pain. Agreeable to treatment session. Patient is hoping to get discharged to [facility] today. Home Environment Patient Lives With: ( and son. Was at SNF prior to admit) Assistance Available: 24 Hour (son ) Entry To Home: Stairs;With Rail Number Of Stairs Into Home: 5 Number Of Stairs To Bed/Bath: 10 Stairs to Bed/Bath with: Unilateral Rail Tub/Shower Type: tub shower Equipment Owned: Crutch(es) Prior Functional Level: Within Functional Limits (pt mostly indep with ADLs at facility prior to arrival) OBJECTIVE: CURRENT FUNCTIONAL STATUS: Current Functional Mobility Assist Level Additional Information Rolling Supervision Supine to Sit Supervision Sit to Supine Supervision Scooting Supervision Sit to Stand Stand By Assistance (with minimal cueing for weight beaing into left heel only) Stand to Sit Stand By Assistance Bed to Chair Toilet/Commode Stand By Assistance Gait Contact Guard Assistance Gait Device: Wheeled Walker Gait Distance (feet): 20ftx2 Stairs Curb Step Car Transfer General Gait Deviations: Non-functional gait speed (weight beaing into left heel, step to pattern) Balance: Static Standing;Dynamic Standing Static Standing Balance: Supervision Dynamic Standing Balance: Contact Guard Assistance Activity Tolerance: (few rest breaks needed) Please see discipline specific clinical documentation flowsheet for complete details for this therapy evaluation/treatment. SIGNATURE: Magdalena Pena PTA PATIENT NAME: Davina Green DATE: January 02, 2018 TIME: 8:58 AM PROGRESS Observed: 01/01/2018 Status: COMPLETED Source: [place] 4:12 PM CLINIC OTHER CAMPUS REPOSITORY HNO ID: [id number] Author: Mary De Santiago Service: Hospital Medicine Author Type: Physician Type: Progress Notes Filed: 01/01/2018 9:51 PM Note Text: SERVICE DATE: 01/01/2018 SERVICE TIME: 4:12 PM No new subjective AND objective note has been filed under this hospital service since the last note was generated. CARE COORDINATION: No Patient Care Coordination Note on file. ASSESSMENT AND PLAN Assessment AND Plan, all Hosp Problems Active Hospital Problems as of 01/01/2018 Noted - Resolved Hospital * (Principal)Diabetic ulcer of toe of left foot associated with type 2 diabetes mellitus, limited to breakdown of skin ([facility]) 10/17/2017 - Present Current Assessment AND Plan Diabetic Foot Ulcer with Surgical Site Infection s/p left 5th digit amputation -? IANDD 12/25 done - Debridement done, 5th metatarsal, left foot -Secondary closure, surgical wound, left foot done -wound culture sent , showed no growth -blood culture showed no growth -Culture bone 5th metatarsal showed no anaerobes -wound care -percocet prn q6hr ID recs-Vanc 750 mg q24h -will touch base with ID about stopping Flagyl -Vanc trough ordered - With osteomyelitis, Staph epidermidis. Continue ABx for 6 weeks total for osteo - oxycodone prn pain -Vascular surgery recs Cont management per primary team - Wound vac removed yesterday - Vanc and Flagyl per ID - ABIs Rt leg 0.9 ,left side 0.74 left leg has moderate arterial disease. - Unlikely to need vascular intervention at this time -vascular surgery signed off Diabetes ([facility]) 12/23/2017 - Present Current Assessment AND Plan -A1C 14.5% from October 2017 -lantus -SSI -monitor bg -diabetic education Essential hypertension, benign 06/22/2012 - Present Current Assessment AND Plan -continue home lisinopril and home amlodipine -follow BP's Hyperlipidemia with target LDL less than 100 03/18/2014 - Present Current Assessment AND Plan -atorvastatin 40mg Tobacco abuse 12/23/2017 - Present Current Assessment AND Plan -smoking cessation encouraged History of cerebrovascular accident (CVA) with residual deficit 04/20/2015 - Present Current Assessment AND Plan CVA and Carotid Stenosis -plavix C. difficile diarrhea 12/28/2017 - Present Current Assessment AND Plan Assessment: PLAN: --20 episodes of loose stools 12/27/17 night -WBC count today 9.43 -c.diff precautions -oral vancomycin started 12/28/17 Malnutrition of moderate degree (HCC) 12/31/2017 - Present Current Assessment AND Plan Assessment: PLAN: -albumin 2.2 -on carb controlled diet Medication and Non-Pharmacologic VTE Prophylaxis/Anticoagulants Anticoagulant AND Antiplatelet Medications Start Dose Route Frequency Ordered Stop 01/02/18 0900 clopidogrel 75 mg tab(s) (PLAVIX) 75 mg ORAL DAILY 01/01/18 1644 -- 12/26/17 0900 enoxaparin 40 mg injection (LOVENOX) (Medical At Risk ) 40 mg SUBCUTANEOUS DAILY 12/25/17 1803 -- 12/27/17 2230 pneumatic compression stockings (fl,oh) 12/25/17 1815 vte pharmacologic prophylaxis contraindicated (mt,oh) 12/25/17 1815 pneumatic compression stockings (mt,oh) 12/21/17 2145 pneumatic compression stockings (mt,oh) 12/21/17 2145 activity - mobilize patient (mt,oh) VTE Prophylaxis: VTE prophylaxis appropriate Disposition:SNF. SNF referral created to [facility]. ? Plan of care discussed with: Attending and Patient SIGNATURE: Casey Flood MD PATIENT NAME: Davina Green DATE: January 01, 2018 TIME: 4:12 PM PAGER/CONTACT #: [phone] Transferred to my service Chart reviewed Evaluated independently Discussed with and agree with above notes which reflect my input with following additions Conditions appear stable Continue present treatment Awaiting for discharge plan Discussed with patient regarding condition and plan Attestation signed by Mary De Santiago MD [facility] Attending January 01, 2018 9:49 PM CASE MANAGEM Observed: 01/01/2018 Status: COMPLETED Source: [place] 1:15 PM CLINIC OTHER CAMPUS REPOSITORY HNO ID: [id number] Author: Juarez (Specialist) Shoshana Service: Care Management Author Type: (none) Type: Care Mgt Progress Note Filed: 01/01/2018 1:15 PM Note Text: SNF referral created to [facility]. CASE MANAGEM Observed: 01/01/2018 Status: COMPLETED Source: [place] 12:48 PM CLINIC OTHER CAMPUS REPOSITORY HNO ID: [id number] Author: Brisa (Rn) INES Fierro Service: Care Management Author Type: Registered Nurse Type: Care Mgt Progress Note Filed: 01/01/2018 12:51 PM Note Text: CARE MANAGEMENT PROGRESS NOTE SERVICE DATE: 01/01/2018 SERVICE TIME: 12:48 PM LOS: 11 days Needs Prior to Discharge: To Be Determined Notes reviewed. Met with patient at bedside to discuss discharge plan. She is aware that she will require a SNF for IV ABX. She has made some new SNF choices. [facility] Waiting to hear if bed is available. SIGNATURE: Brisa Fierro RN PATIENT NAME: Davina Green DATE: January 01, 2018 TIME: 12:48 PM PAGER/CONTACT #: [phone] VANCOMYCIN,RANDOM Collected: Status: F Source: [place] 01/01/2018 8:30 AM [facility] REPOSITORY TYPE CODE TESTS RESULT OUT OF RANGE REFERENCE UNITS LAB VANCR(LOINC mg/L ) 9.5 Vancomycin,R andom Result Comment: Trough 10.0-20.0 mg/L Peak 18.0-40.0 mg/L Performed By: #### VANCR #### [place] [address] HEMOGRAM/DIFF Collected: 01/01/2018 Status: F Source: [facility] 3:08 AM [facility] REPOSITORY TYPE CODE TESTS RESULT OUT OF REFERENCE UNITS RANGE LAB WBC(LOINC) 3.98-10.04 thou/cmm WBC 9.43 LAB RBC(LOINC) 3.93-5.22 mil/cmm Low RBC 3.45 LAB HGB(LOINC) 11.2-15.7 g/dL Low Hgb 10.2 LAB HCT(LOINC) 34.1-44.9 % Low Hct 31.3 LAB MCV(LOINC) 79.4-94.8 fl MCV 90.7 LAB MCH(LOINC) 25.6-32.2 pg MCH 29.6 LAB MCHC(LOINC 31.6-34.8 % ) MCHC 32.6 LAB RDW(LOINC) 11.7-14.4 % RDW High 14.7 LAB RDWSD(LOIN 36.4-46.3 fl C) RDW SD High 49.0 LAB PLT(LOINC) 182-369 thou/cmm Platelet High 403 LAB MPV(LOINC) 9.4-12.3 fl MPV 9.4 LAB SEG(LOINC) % Seg Neutrophil 51.0 LAB IGRE(LOINC % ) Immature Grans 0.20 LAB LYMPH(LOIN % C) Lymphocyte 29.8 LAB MNO(LOINC) % Monocyte 8.3 LAB EOSIN(LOIN % C) Eosinophil 10.2 LAB BASO(LOINC % ) Basophil 0.5 LAB SEGN(LOINC 1.56-6.13 thou/cmm ) Abs. Neut (ANC) 4.81 LAB IGAB(LOINC 0.00-0.05 thou/cmm ) Abs Immature Grans 0.02 LAB LYMN(LOINC 1.18-3.74 thou/cmm ) Abs. Lymph 2.81 LAB MONON(LOIN 0.27-0.70 thou/cmm C) Abs. High [place] 0.78 LAB EOSN(LOINC 0.00-0.31 thou/cmm ) Abs. High Eosin 0.96 LAB BASON(LOIN 0.01-0.08 thou/cmm C) Abs. Baso 0.05 Performed By: #### CBCD1 #### [place] [address] RENAL PANEL Collected: 01/01/2018 Status: F Source: [facility] 3:08 AM [facility] REPOSITORY TYPE CODE TESTS RESULT OUT OF REFERENCE UNITS RANGE LAB NA(LOINC) 136-145 mEq/L Sodium Blood 139 LAB K(LOINC) 3.5-5.1 mEq/L Potassium Blood 4.0 LAB CL(LOINC) 98-107 mEq/L Chloride Blood 104 LAB CO2(LOINC) 21-32 mEq/L CO2 Blood 30 LAB GLU(LOINC) 70-99 mg/dL Glucose Blood 99 LAB BUN(LOINC) 7-18 mg/dL BUN Blood 15 LAB CREA(LOINC 0.51-0.95 mg/dL ) High Creatinine Blood 0.99 LAB CA(LOINC) 8.5-10.1 mg/dL Calcium Blood 8.5 LAB ALB(LOINC) 3.4-5.0 g/dL Low Albumin Blood 2.2 LAB PHOS(LOINC 2.5-4.9 mg/dL ) Phosphorus Blood 3.0 Performed By: #### RENAL #### [facility] [address] [place] [address] THERAPY NT Observed: 12/31/2017 Status: COMPLETED Source: [place] 4:56 PM CLINIC OTHER CAMPUS REPOSITORY HNO ID: [id number] Author: Maryam (Pt) Ignacia Service: Physical Therapy Author Type: Physical Therapist Type: Therapy (PT/OT/Speech/Resp) Filed: 12/31/2017 5:10 PM Note Text: Physical Therapy Treatment SERVICE DATE: 12/31/2017 SERVICE TIME: 1350 to 1408 ROOM: [place] [address] Recommended Discharge Disposition: (Anticipate d/c to SNF for cont IV antibiotics; rec cont PT) Anticipated Discharge Needs: Physical Assist at Home;Equipment Physical Assist at Home for: Cleaning;Laundry;Shopping;Transportation Recommended Discharge Equipment: Defer to receiving facility. PT Recommendations to Nursing: Ambulate with device;To bathroom;OOB for Meals;Transfer to/from chair;With assist of 1 person Device: Wheeled Walker PT 6 Clicks Score: 20 Precautions/Activity Restrictions: Weight Bearing Restrictions;Lines/Tubes/Drains Precaution/Activity Restriction Comments: heel weight bearing Isolation Type: Contact C-Diff Extremity With Weight Bearing Restricted: Left Lower Extremity Left Lower Extremity Weight Bearing Status: Heel Weight Bearing ASSESSMENT : Patient Disposition at Start of Session: Supine in Bed;Call Thomas in Reach Patient Disposition at End of Session: OOB in Chair;Call Thomas in Reach (nursing present) Tolerance Limited By Other: See Comment (pt upset today about issues unrelated to therapy) Physical Therapy Problem List: Pain;Decreased Strength;Functional Mobility Impairment Patient /Caregiver Goals: Walk Goals for Plan of Care: Able to perform HEP with: Verbal Cues Only Transfer sit to/from stand with: Supervision Ambulate with: Supervision Distance: 100 Device: Wheeled Walker Ambulate up and down steps with: Stand By Assistance Number of steps: 5 Device: Rail;Crutch(es) (goal met) Progress Toward Goals: Progressing slower than expected Due To: (medical acuity C-diff / pt upset about other issues today) Rehab Potential: Good PLAN: Treatment Frequency (times per week): 5 (2-5) Current admission Treatment Interventions: Education;Strengthening;Functional Mobility Training Plan of Care developed with: Patient TREATMENT INTERVENTIONS: Therapy Diagnosis: Reduced mobility-other;General symptoms and signs-other Interventions Provided: Therapeutic Activity (64722) Therapeutic Activity (76148) Treatment Minutes: 18 1 unit Skilled Intervention(s): Functional mobility performed as described below. Pt ed / cues for transfer safety. Demo AND cues for FWW safety, with increased UE use to maintain WB through L heel only. Reviewed general LE strength AND conditioning exercises in sitting x 3-5 reps each but discontinued with pt wanting to bathe - agreeable to complete additional reps later. Total Timed Code Treatment Minutes: 18 Total Treatment Time (minutes): 18 SUBJECTIVE: Current Hospital Course: Chart reviewed; per hospital medicine note today: med stable for dc to SNF to finish IV abx for left foot osteo, will finish 10 day course of oral vanc for C diff. dc delayed as pt needs private room due to C diff. Reason for Physical Therapy Consult : s/p IANDD L 5th metatarsal Patient Report: frustrated about hospitalization, awaiting assist with bathing - nursing associate notified and arrived to assist at end of session; time spent to listen, empathize, redirect to PT goals and pt agreeable to participate in PT session. Home Environment Patient Lives With: ( and son. Was at SNF prior to admit) Assistance Available: 24 Hour (son ) Entry To Home: Stairs;With Rail Number Of Stairs Into Home: 5 Number Of Stairs To Bed/Bath: 10 Stairs to Bed/Bath with: Unilateral Rail Tub/Shower Type: tub shower Equipment Owned: Crutch(es) Prior Functional Level: Within Functional Limits (pt mostly indep with ADLs at facility prior to arrival) OBJECTIVE: CURRENT FUNCTIONAL STATUS: Current Functional Mobility Assist Level Additional Information Rolling Supine to Sit Supervision Sit to Supine Scooting Supervision Sit to Stand Stand By Assistance (with cues needed to maintain WB thru L heel only) Stand to Sit Stand By Assistance Bed to Chair Toilet/Commode Gait Contact Guard Assistance Gait Device: Wheeled Walker Gait Distance (feet): 15' x 2 Stairs Curb Step Car Transfer General Gait Deviations: (slow, steady with device, WB thru L heel only) Balance: Static Standing;Dynamic Standing Static Standing Balance: Supervision Dynamic Standing Balance: Contact Guard Assistance Activity Tolerance: (few rest breaks needed) Please see discipline specific clinical documentation flowsheet for complete details for this therapy evaluation/treatment. SIGNATURE: Maryam Beth PT PATIENT NAME: Davina Green DATE: December 31, 2017 TIME: 4:56 PM THERAPY NT Observed: 12/31/2017 Status: COMPLETED Source: [place] 4:49 PM CLINIC OTHER CAMPUS REPOSITORY HNO ID: [id number] Author: Shital Mckeon/Dez Madrid Service: Occupational Therapy Author Type: Occupational Therapist Type: Therapy (PT/OT/Speech/Resp) Filed: 12/31/2017 4:54 PM Note Text: Occupational Therapy Treatment SERVICE DATE: 12/31/2017 SERVICE TIME: 1550 to 1605 ROOM: [place] [address] Recommended Discharge Disposition: Home Recommended Discharge Disposition Comments: Pt reports she is going to a SNF for IV antibiotics. pt will benefit from OT during stay to increase independence with IADL Anticipated Discharge Needs: Physical Assist at Home;Equipment Physical Assist at Home for: Cleaning;Laundry;Shopping;Transportation Recommended Discharge Equipment: Wheeled Walker;Shower Chair OT Recommendations to Nursing: To Bathroom for ADL?s /and or Toileting;With assist of 1 person Equipment: Wheeled Walker OT 6 Clicks Score: 24 Precautions/Activity Restrictions: Weight Bearing Restrictions;Lines/Tubes/Drains (wound vac.) Precaution/Activity Restriction Comments: heel weight bearing Isolation Type: Contact C-Diff Extremity With Weight Bearing Restricted: Left Lower Extremity Left Lower Extremity Weight Bearing Status: Heel Weight Bearing When pt d/c's home she will benefit from tub bench for safe bathing and w/c for long distance. ASSESSMENT: Pt is caring for self in room with BSC next to bed and set- up for self care. Pt will benefit from continues OT to increase independence in bathroom (toilet and tub t/f and IADL) Patient Disposition at Start of Session: Supine in Bed Patient Disposition at End of Session: Supine in Bed;Call Thomas in Reach Tolerated Full Session Occupational Therapy Problem List: Impaired Self Care;Decreased Activity Tolerance;Functional Mobility Impairment Patient /Caregiver Goals: Go Home Goals for Plan of Care: Grooming with: Independent Upper Body Bathing with: Independent Lower Body Bathing with: Independent Lower Body Dressing with: Independent Tolerate (minutes of functional activity): 45 Functional Activity with: Modified Independent Home Management Skills with: Modified Independent Demonstrate Competence With Education with: Independent Transfer: all functional transfers: modified independent (with wheeled walker) Progress Toward Goals: Progressing as expected PLAN: Treatment Frequency (times per week): 5 (1-4) Current admission Treatment Interventions: Education;Self Care / Home Management;Functional Mobility Training Plan of Care developed with: Patient TREATMENT INTERVENTIONS: Therapy Diagnosis: Reduced mobility-other;Decreased activities of daily living (ADL) Interventions Provided: Self Long-Term Management (76878) Self Long-Term Management (54827) Treatment Minutes: 15 1 unit Skilled Intervention(s): Instructed in energy conservation Provided instruction, cuing and facilitation for lower body dressing dressing injured leg first and sitting for safety. Provided instruction, cuing and facilitation for bathing encourage sitting for safety. Needs bath bench Total Timed Code Treatment Minutes: 15 Total Treatment Time (minutes): 15 FUNCTIONAL G CODE: OT 6 Clicks Score: 24 (12/31/17 1550) Self Care Current Status (G8987): CH (12/31/17 1550) Self Care Goal Status (G8988): CH (12/31/17 1550) Based on clinical assessment and the score on the 6 Clicks Functional Assessment Tool, the G code and corresponding severity modifiers are documented above. SUBJECTIVE: Current Hospital Course: Chart reviewed and no significant medical updates relevant to therapy were noted Reason for Occupational Therapy Consult: post acute placement Relevant Past Medical History: DM2, wound abscess, gangrene Patient Report: I have to go to the custodial for IV antibiotics for 6 weeks Home Environment Patient Lives With: ( and son. Was at SNF prior to admit) Assistance Available: 24 Hour (son ) Entry To Home: Stairs;With Rail Number Of Stairs Into Home: 5 Number Of Stairs To Bed/Bath: 10 Stairs to Bed/Bath with: Unilateral Rail Tub/Shower Type: tub shower Equipment Owned: Crutch(es) Prior Functional Level: Within Functional Limits (pt mostly indep with ADLs at facility prior to arrival) OBJECTIVE: Responsiveness: Alert;Awake Follows Commands: 3-step Commands Psychosocial Deficit: intact CURRENT FUNCTIONAL STATUS: Current Activities of Daily Living Assist Level Feeding Independent Grooming Modified Independent Bathing Upper Body Set Up (seated) Bathing Lower Body Set Up (seated) Dressing Upper Body Modified Independent Dressing Lower Body Supervision Toileting Modified Independent (to BS, manages gown and hygeine) Instrumental Activities of Daily Living Assist Level Meal/Beverage Prep Maximal Assistance Light Cleaning Maximal Assistance Laundry Total Assistance Medication Management with Strategies Functional Mobility Assist Level Rolling Supine to Sit Modified Independent Sit to Supine Modified Independent Scooting Sit to Stand Modified Independent Stand to Sit Modified Independent Bed to Chair Stand Pivot Toilet/Commode Modified Independent (BSC) Functional Mobility Stand By Assistance Wheeled Walker Activity Tolerance: Standing Activity Standing Activity: Functional mobility to/from bathroom; toilet transfer Standing Activity Tolerance (in minutes): 5 Please see discipline specific clinical documentation flowsheet for complete details for this therapy evaluation/treatment. SIGNATURE: ELI Cedillo/Ibeth PATIENT NAME: Davina Green DATE: December 31, 2017 TIME: 4:49 PM PROGRESS Observed: 12/31/2017 Status: COMPLETED Source: [place] 12:31 PM CLINIC OTHER CAMPUS REPOSITORY O ID: [id number] Author: Casey lFood MD Service: Hospital Medicine Author Type: Resident Type: Progress Notes Filed: 12/31/2017 1:06 PM Note Text: Attestation signed by Danielle Oreilly at 12/31/2017 6:04 PM Discussed with team, chart reviewed, orders reviewed and revised with team as needed. Pt seen today at 1015, she related that pain was not controlled last night with dc of IV morphine, we agreed on plan to increase oxycodone dose. She related that BMs were now down to 2 times per day, had no abdominal pain. Disposition - pt is med stable for dc to SNF for IV abx when arrangements made, needs to finish abx for left foot osteo, finish oral vanc for C diff. SERVICE DATE: 12/31/2017 SERVICE TIME: 12:31 PM HOSPITAL MEDICINE PROGRESS NOTE SUBJECTIVE Interval HPI: Pt reported 1 episode of loose stools overnight. Pt denies abdominal pain. Pt also c/o headache and generalized body pain. Denies fever, nausea and vomiting. OBJECTIVE BP 158/93 Pulse 93 Temp (Src) 98.1 (Oral) Resp 16 Ht 5' 0 (1.52m) Wt 125 lb (56.7kg) SpO2 97% BMI 24.41 kg/(m2). Physical Exam Performed: General appearance: Well appearing, alert, in no acute distress, well-hydrated, well nourished. and Thin Head: normocephalic, atraumatic Neck: Supple, no adenopathy; thyroid symmetric, normal size, no bruits Back: Normal exam, no pain to palpation Lungs: Lungs clear to auscultation. No wheezing, rhonchi, rales Heart: RRR without murmur, gallop, or rubs. ?No ectopy Abdomen: ?Abdomen soft, non-tender. Bowel sounds normal. No masses, organomegaly Extremities: Positive findings: left foot 5th digit amputation, erythematous, swelling decreased, pain decreased Diabetic Foot: ?Deformities: left 5th digit amputation ? Lines, Drains, and Airways Line Central Line Single Lumen 12/26/17 1421 Peripherally Inserted (PICC) Right Arm 4.0 [place] 4 days Medications: Reviewed Diagnostic tests reviewed: Most recent labs Recent Labs 12/31/17 0336 12/30/17 0113 12/29/17 0345 12/08/17 1457 WBC 8.66 8.81 9.65 < > 8.52 RBC 3.53* 3.50* 3.32* < > 4.22 HB 10.5* 10.1* 9.9* < > 12.6 HCT 31.5* 31.7* 30.1* < > 37.4 PLT 416* 407* 384* < > 464* MCV 89.2 90.6 90.7 < > 88.6 MCH 29.7 28.9 29.8 < > 29.9 MPV 9.3* 9.5 9.7 < > 9.4 RDW 14.8* 14.7* 14.6* < > -- ABSNEUT -- -- -- -- 5.61 NEUTP -- -- -- -- 65.9 LYMPHP -- -- -- -- 21.7 MONOP -- -- -- -- 6.1 EODINP -- -- -- -- 5.4 < > = values in this interval not displayed. Recent Labs 12/31/17 0336 12/30/17 0113 12/29/17 0345 12/28/17 0655 12/21/17 1045 GLUC 102* 111* 55* 85 < > 174* NA 143 142 143 141 < > 135* K 3.9 3.8 3.3* 3.5 < > 4.3 CHLOR 107 105 107 106 < > 105 CO2 31 32 31 28 < > 22 CREAT 0.93 0.77 0.75 0.84 < > 0.96* BUN 12 8 11 11 < > 31* ANION -- 9 8 11 < > 12 CA 8.4* 8.3* 8.3* 8.3* < > 8.6 TPROT -- -- -- -- -- 7.1 ALB 2.2* -- -- -- -- 2.6* TBILI -- -- -- -- -- 0.2 ALKPHOS -- -- -- -- -- 100 AST -- -- -- -- -- 14 ALT -- -- -- -- -- 14 < > = values in this interval not displayed. Most recent labs CARE COORDINATION: No Patient Care Coordination Note on file. ASSESSMENT AND PLAN Assessment AND Plan, all Hosp Problems Active Hospital Problems as of 12/31/2017 Noted - Resolved Hospital * (Principal)Diabetic ulcer of toe of left foot associated with type 2 diabetes mellitus, limited to breakdown of skin ([facility]) 10/17/2017 - Present Current Assessment AND Plan Diabetic Foot Ulcer with Surgical Site Infection s/p left 5th digit amputation -appreciate Ortho recs: MRI foot shows focal fluid collection near the amputation site and erosive changes in the bone at the amputation site. ?- IANDD 12/25 done - Debridement done, 5th metatarsal, left foot -Secondary closure, surgical wound, left foot done -wound culture sent , showed no growth -blood culture showed no growth -PT/OT -wound care -percocet prn q6hr ID recs-Vanc dose changed to 750 mg q24h -Continue metronidazole until anaerobe cult reported - With osteomyelitis, Staph epidermidis. Continue ABx for 6 weeks total for osteo - oxycodone prn pain -Vascular surgery recs Cont management per primary team - Wound vac removed yesterday - Vanc and Flagyl per ID - ABIs Rt leg 0.9 ,left side 0.74 left leg has moderate arterial disease. - Unlikely to need vascular intervention at this time, will follow up vascular surgeon recs -vascular surgery signed off Diabetes (HCC) 12/23/2017 - Present Current Assessment AND Plan -A1C 14.5% from October 2017 -lanlupeus -SSI -monitor bg -diabetic education Essential hypertension, benign 06/22/2012 - Present Current Assessment AND Plan -continue home lisinopril and home amlodipine -follow BP's Hyperlipidemia with target LDL less than 100 03/18/2014 - Present Current Assessment AND Plan -atorvastatin 40mg Tobacco abuse 12/23/2017 - Present Current Assessment AND Plan -smoking cessation encouraged History of cerebrovascular accident (CVA) with residual deficit 04/20/2015 - Present Current Assessment AND Plan CVA and Carotid Stenosis -hold ASA and plavix for now C. difficile diarrhea 12/28/2017 - Present Current Assessment AND Plan Assessment: PLAN: --20 episodes of loose stools 12/27/17 night -WBC count today 8.66 -C.diff testing ordered and came positive -c.diff precautions -oral vancomycin started 12/28/17 Malnutrition of moderate degree (HCC) 12/31/2017 - Present Current Assessment AND Plan Assessment: PLAN: -albumin 2.2 -on carb controlled diet Medication and Non-Pharmacologic VTE Prophylaxis/Anticoagulants Anticoagulant AND Antiplatelet Medications Start Dose Route Frequency Ordered Stop 12/26/17 0900 enoxaparin 40 mg injection (LOVENOX) (Medical At Risk ) 40 mg SUBCUTANEOUS DAILY 12/25/17 1803 -- 12/27/17 2230 pneumatic compression stockings (mt,oh) 12/25/171814 vte pharmacologic prophylaxis contraindicated (mt,oh) 12/25/171814 pneumatic compression stockings (mt,oh) 12/21/172144 pneumatic compression stockings (mt,oh) 12/21/172144 activity - mobilize patient (mt,oh) VTE Prophylaxis: VTE prophylaxis appropriate Disposition - as below and above, med stable for dc to SNF to finish IV abx for left foot osteo, will finish 10 day course of oral vanc for C diff. dc delayed as pt needs private room due to C diff). Plan of care discussed with: Attending and Patient SIGNATURE: Casey Flood MD PATIENT NAME: Davina Green DATE: December 31, 2017 TIME: 12:31 PM PAGER/CONTACT #: [phone] HEMOGRAM/DIFF Collected: 12/31/2017 Status: F Source: [facility] 3:36 AM [facility] REPOSITORY TYPE CODE TESTS RESULT OUT OF REFERENCE UNITS RANGE LAB WBC(LOINC) 3.98-10.04 thou/cmm WBC 8.66 LAB RBC(LOINC) 3.93-5.22 mil/cmm Low RBC 3.53 LAB HGB(LOINC) 11.2-15.7 g/dL Low Hgb 10.5 LAB HCT(LOINC) 34.1-44.9 % Low Hct 31.5 LAB MCV(LOINC) 79.4-94.8 fl MCV 89.2 LAB MCH(LOINC) 25.6-32.2 pg MCH 29.7 LAB MCHC(LOINC 31.6-34.8 % ) MCHC 33.3 LAB RDW(LOINC) 11.7-14.4 % RDW High 14.8 LAB RDWSD(LOIN 36.4-46.3 fl C) RDW SD High 48.0 LAB PLT(LOINC) 182-369 thou/cmm Platelet High 416 LAB MPV(LOINC) 9.4-12.3 fl Low MPV 9.3 LAB SEG(LOINC) % Seg Neutrophil 55.5 LAB IGRE(LOINC % ) Immature Grans 0.30 LAB LYMPH(LOIN % C) Lymphocyte 24.9 LAB MNO(LOINC) % Monocyte 7.6 LAB EOSIN(LOIN % C) Eosinophil 11.1 LAB BASO(LOINC % ) Basophil 0.6 LAB SEGN(LOINC 1.56-6.13 thou/cmm ) Abs. Neut (ANC) 4.81 LAB IGAB(LOINC 0.00-0.05 thou/cmm ) Abs Immature Grans 0.03 LAB LYMN(LOINC 1.18-3.74 thou/cmm ) Abs. Lymph 2.16 LAB MONON(LOIN 0.27-0.70 thou/cmm C) Abs. [place] 0.66 LAB EOSN(LOINC 0.00-0.31 thou/cmm ) Abs. High Eosin 0.96 LAB BASON(LOIN 0.01-0.08 thou/cmm C) Abs. Baso 0.05 Performed By: #### CBCD1 #### [place] [address] RENAL PANEL Collected: 12/31/2017 Status: F Source: [facility] 3:36 AM HEALTH SYSTEM REPOSITORY TYPE CODE TESTS RESULT OUT OF REFERENCE UNITS RANGE LAB NA(LOINC) 136-145 mEq/L Sodium Blood 143 LAB K(LOINC) 3.5-5.1 mEq/L Potassium Blood 3.9 LAB CL(LOINC) 98-107 mEq/L Chloride Blood 107 LAB CO2(LOINC) 21-32 mEq/L CO2 Blood 31 LAB GLU(LOINC) 70-99 mg/dL Glucose High Blood 102 LAB BUN(LOINC) 7-18 mg/dL BUN Blood 12 LAB CREA(LOINC 0.51-0.95 mg/dL ) Creatinine Blood 0.93 LAB CA(LOINC) 8.5-10.1 mg/dL Low Calcium Blood 8.4 LAB ALB(LOINC) 3.4-5.0 g/dL Low Albumin Blood 2.2 LAB PHOS(LOINC 2.5-4.9 mg/dL ) Phosphorus Blood 2.7 Performed By: #### RENAL #### [place] [address] PROGRESS Observed: 12/30/2017 Status: COMPLETED Source: [place] 5:11 PM [facility]IN[facility] OTHER CAMPUS REPOSITORY HNO ID: [id number] Author: Nicholas Sánchez MD Service: Vascular Surgery Author Type: Resident Type: Progress Notes Filed: 12/30/2017 7:45 PM Note Text: Attestation signed by Edwina Jensen at 12/31/2017 11:44 AM Discussed with the resident and agree with resident's findings and plan as documented in the resident's note. Edwina Jensen MD V ascular Surgery Progress Note SERVICE DATE: 12/30/2017 Subjective SUBJECTIVE: NAEON. Peña N/V/CP/SOB Diet: DIET CARBOHYDRATE CONTROLLED Objective OBJECTIVE: Vitals: Temp (24hrs), Av.8 ?C (98.3 ?F), Min:36.7 ?C (98.1 ?F), Max:37.1 ?C (98.8 ?F) BP 119/65 Pulse 89 Temp 36.8 ?C (98.2 ?F) (Oral) Resp 18 Ht 152.4 cm (5') Wt 56.7 kg (125 lb) SpO2 95% BMI 24.41 kg/m? O2 Therapy: Room Air IANDO: Date 12/29/17 1500 - 12/30/1759 12/30/17 0700 - 12/31/17 0659 Shift 6332-6510 5672-3420 24 Hour Total 0543-4154 5179-8463 3940-0035 24 Hour Total I N T A K E PO 360 360 500 500 PO 360 360 500 500 IV 150 100 250 Vancomycin IV 150 150 Flagyl IV 100 100 Shift Total 150 460 610 500 500 O U T P U T Urine 5 5 2 1 3 Urine Not Saved 5 5 2 1 3 # of BMs Number of BMs 1 x 1 x 2 x Shift Total 5 5 2 1 3 Weight (kg) 56.7 56.7 56.7 56.7 56.7 56.7 56.7 MEDICATIONS Current Facility-Administered Medications: oxyCODONE IR 5 mg tab(s) (ROXICODONE) 5 mg ORAL q 4 H PRN vancomycin 750 mg in dextrose (iso-osmotic) 150 mL 0.75 g INTRAVENOUS q 24 HR vancomycin 125 mg oral liquid (VANCOCIN) 125 mg ORAL QID 0.9% NaCl 10 mL 10 mL INTRAVENOUS q 12 H 0.9% NaCl 20 mL 20 mL INTRAVENOUS PRN enoxaparin 40 mg injection (LOVENOX) 40 mg SUBCUTANEOUS DAILY ondansetron 4 mg tab(s) (ZOFRAN) 4 mg ORAL q 6 H PRN Or ondansetron (PF) 4 mg injection (ZOFRAN) 4 mg INTRAVENOUS q 6 H PRN docusate sodium 100 mg cap(s) (COLACE) 100 mg ORAL BID acetaminophen 325 mg tab(s) (TYLENOL) 325 mg ORAL q [address] 40 mg tab(s) (PROTONIX) 40 mg ORAL DAILY (6 AM) lisinopril 30 mg tab(s) (ZESTRIL,PRINIVIL) 30 mg ORAL DAILY buPROPion XL 150 mg tab(s) (WELLBUTRIN XL) 150 mg ORAL DAILY sertraline 100 mg tab(s) (ZOLOFT) 100 mg ORAL DAILY fluocinonide 0.05 % (LIDEX) TOPICAL DAILY insulin lispro pen (rapid acting) (HumaLOG KWIKPEN) SUBCUTANEOUS w MEALS metroNIDAZOLE 500 mg PREMIX piggyback (FLAGYL) 500 mg INTRAVENOUS q 8 H insulin lispro 5 Units pen (rapid acting) (HumaLOG KWIKPEN) 5 Units SUBCUTANEOUS w MEALS atorvastatin 40 mg tab(s) (LIPITOR) 40 mg ORAL AT BEDTIME diphenhydrAMINE 25 mg (BENADRYL) 25 mg ORAL q 6 H PRN amLODIPine 10 mg tab(s) (NORVASC) 10 mg ORAL DAILY insulin glargine 14 Units pen (long acting) (LANTUS SOLOSTAR, BASAGLAR KWIKPEN) 14 Units SUBCUTANEOUS AT BEDTIME dextrose 40 % 15 g 15 g ORAL PRN Or glucagon 1 mg injection (GLUCAGEN) 1 mg INTRAMUSCULAR PRN Or dextrose 50% in water 25 mL syringe 12.5 g INTRAVENOUS PRN Labs: Recent Labs 12/30/17 0113 12/29/17 0345 NA 142 143 K 3.8 3.3* CHLOR 105 107 CO2 32 31 BUN 8 11 CREAT 0.77 0.75 GLUC 111* 55* ANION 9 8 CA 8.3* 8.3* WBC 8.81 9.65 HB 10.1* 9.9* HCT 31.7* 30.1* PLT 407* 384* Exam: GENERAL: No distress, Alert NEURO: AANDOx3, no focal deficits, no decreased motor or sensation in BLE HEENT: normocephalic, atraumatic LUNGS: Unlabored breathing O2 Therapy: Room Air CARDIAC: Regular rate and rhythm as above, dopplerable DP/PT pulses bilaterall ABDOMEN: Soft, non-tender, non-distended EXTREMITIES: [place], No deformities, No edema SKIN: Skin color, texture, turgor normal, No rashes or lesions ASSESSMENT AND PLAN: Active Hospital Problems Diagnosis Date Noted - Diabetic ulcer of toe of left foot associated with type 2 diabetes mellitus, limited to breakdown of skin ([facility]) 10/17/2017 Priority: A Assessment AND Plan Note: Diabetic Foot Ulcer with Surgical Site Infection s/p left 5th digit amputation -appreciate Ortho recs: MRI foot shows focal fluid collection near the amputation site and erosive changes in the bone at the amputation site. ?- IANDD 12/25 done - Debridement done, 5th metatarsal, left foot -Secondary closure, surgical wound, left foot done -wound culture sent , growing few organisms preliminary results -blood culture showed no growth -PT/OT -wound care -percocet prn q6hr ID recs-Vanc dose changed to 750 mg q24h -Continue metronidazole until anaerobe cult reported - With osteomyelitis, Staph epidermidis. Continue ABx for 6 weeks total for osteo - Pain - Sanderson 5 mg q 4 hrs -Vascular surgery recs Cont management per primary team - Wound vac per podiatry - Vanc and Flagyl per ID - ABIs Rt leg 0.9 ,left side 0.74 left leg has moderate arterial disease. - Unlikely to need vascular intervention at this time, will follow up vascular surgeon recs - Diabetes ([facility]) 12/23/2017 Priority: B Assessment AND Plan Note: -A1C 14.5% from October 2017 -lantus -SSI -monitor bg -diabetic education - Blood sugar 111 today - Essential hypertension, benign 06/22/2012 Priority: D - Hyperlipidemia with target LDL less than 100 03/18/2014 Priority: F - Tobacco abuse 12/23/2017 Priority: G - Hypokalemia 12/29/2017 - C. difficile diarrhea 12/28/2017 Assessment AND Plan Note: Assessment: PLAN: --20 episodes of loose stools 12/27/17 night -WBC count went up 14.22.to 7.65 yesterday -C.diff testing ordered and came positive -c.diff precautions -oral vancomycin started yesterday -diarrhea resolved -WBC count down to 8.8 today - History of cerebrovascular accident (CVA) with residual deficit 04/20/2015 62 year old female s/p LLE Angioplasty 11/14/17, L 5th toe amputation 12/11/17, now with abscess at L amp site debrided on 12/25/17 ? - Management per primary team - wound vac removed - Vanc and Flagyl per ID - Pt has adequate pulses for healing. Will sign off. If further questions, please don't hesitate to contact vascular surgery. Assessment and plan discussed with attending: Dr. Jensen SIGNATURE: Nicholas Sánchez MD PATIENT NAME: Davina Green DATE: December 30, 2017 TIME: 5:11 PM Pager: [phone] PROGRESS Observed: 12/30/2017 Status: COMPLETED Source: [place] 1:05 PM CLINIC OTHER CAMPUS REPOSITORY O ID: [id number] Author: Alfredo Grant (Daniel) Alondra Service: Hospital Medicine Author Type: Physician Type: Progress Notes Filed: 12/30/2017 1:22 PM Note Text: Attestation signed by Danielle Oreilly at 12/30/2017 5:41 PM Discussed with team, assumed care today as attending on day 9 of this hospital stay. Chart reviewed (labs stable, WBC count is down), orders reviewed and revised as needed. (RN asked for pain med clarification - was getting both vicodin and IV morphine for 'pain'. Dc'd IV morphine, dc'd oral vicodin, added oxycodone 5 mg prn for pain). Pt seen today at 1405, very thin 62 yo lady sitting on bedside commode, she said BMs were now 'little squirts', slowing down, tolerating diet, pain controlled. She understood plan for dc to SNF when arrangements made (dc delayed as pt needs private room due to C diff). Disposition - as below and above, med stable for dc to SNF to finish IV abx for left foot osteo, will finish 10 day course of oral vanc for C diff. Hospital Medicine Service Progress Note Date of Service: December 30, 2017 Hospital Day: Day 9 Chief Complaint: Left foot pain due to abscess 24 Hour Course/ Overnight Events: Patient is feeling better. She had no complaints overnight. She passed watery stools once last night. She states her pain is better than before. No complaints of fever, chills, chest pain, or abdominal pain. Subjective/ Review of Systems: General: Negative for fever, chills Cardiac: Negative for chest pain, palpitations Respiratory: Negative for shortness of breath, cough or wheezing Abdomen: Positive for diarrhea, negative for abdominal pain Medications: Current Facility-Administered Medications: vancomycin 750 mg in dextrose (iso-osmotic) 150 mL 0.75 g INTRAVENOUS q 24 HR vancomycin 125 mg oral liquid (VANCOCIN) 125 mg ORAL QID lactated ringers infusion 125 mL/hr INTRAVENOUS CONTINUOUS morphine 2-4 mg injection 2-4 mg INTRAVENOUS q 2 H PRN 0.9% NaCl 10 mL 10 mL INTRAVENOUS q 12 H 0.9% NaCl 20 mL 20 mL INTRAVENOUS PRN enoxaparin 40 mg injection (LOVENOX) 40 mg SUBCUTANEOUS DAILY ondansetron 4 mg tab(s) (ZOFRAN) 4 mg ORAL q 6 H PRN Or ondansetron (PF) 4 mg injection (ZOFRAN) 4 mg INTRAVENOUS q 6 H PRN docusate sodium 100 mg cap(s) (COLACE) 100 mg ORAL BID HYDROcodone 5 mg - acetaminophen 325 mg tablet (NORCO) 1-2 tablet ORAL q 4 H PRN acetaminophen 325 mg tab(s) (TYLENOL) 325 mg ORAL q [address] 40 mg tab(s) (PROTONIX) 40 mg ORAL DAILY (6 AM) lisinopril 30 mg tab(s) (ZESTRIL,PRINIVIL) 30 mg ORAL DAILY buPROPion XL 150 mg tab(s) (WELLBUTRIN XL) 150 mg ORAL DAILY sertraline 100 mg tab(s) (ZOLOFT) 100 mg ORAL DAILY fluocinonide 0.05 % (LIDEX) TOPICAL DAILY insulin lispro pen (rapid acting) (HumaLOG KWIKPEN) SUBCUTANEOUS w MEALS metroNIDAZOLE 500 mg PREMIX piggyback (FLAGYL) 500 mg INTRAVENOUS q 8 H insulin lispro 5 Units pen (rapid acting) (HumaLOG KWIKPEN) 5 Units SUBCUTANEOUS w MEALS atorvastatin 40 mg tab(s) (LIPITOR) 40 mg ORAL AT BEDTIME diphenhydrAMINE 25 mg (BENADRYL) 25 mg ORAL q 6 H PRN amLODIPine 10 mg tab(s) (NORVASC) 10 mg ORAL DAILY insulin glargine 14 Units pen (long acting) (LANTUS SOLOSTAR, BASAGLAR KWIKPEN) 14 Units SUBCUTANEOUS AT BEDTIME dextrose 40 % 15 g 15 g ORAL PRN Or glucagon 1 mg injection (GLUCAGEN) 1 mg INTRAMUSCULAR PRN Or dextrose 50% in water 25 mL syringe 12.5 g INTRAVENOUS PRN Physical Exam: BP 127/68 Pulse 85 Temp 37.1 ?C (98.8 ?F) (Oral) Resp 18 Ht 152.4 cm (5') Wt 56.7 kg (125 lb) SpO2 97% BMI 24.41 kg/m? Intake/Output Summary (Last 24 hours) at 12/30/17 1320 Last data filed at 12/30/17 0653 Gross per 24 hour Intake 610 ml Output 5 ml Net 605 ml 12/29/17 2151 12/29/17 2351 12/30/17 0312 12/30/17 0900 BP: 154/62 138/70 133/77 127/68 Pulse: 100 82 84 85 Resp: 18 18 18 18 Temp: 36.8 ?C (98.2 ?F) 36.9 ?C (98.4 ?F) 36.7 ?C (98.1 ?F) 37.1 ?C (98.8 ?F) TempSrc: Oral Oral Oral Oral SpO2: 95% 97% 97% Weight: Height: Assessment and Plan Assessment AND Plan, all Hosp Problems Active Hospital Problems as of 12/30/2017 Noted - Resolved Hospital Hyperlipidemia with target LDL less than 100 03/18/2014 - Present Current Assessment AND Plan -atorvastatin 40mg Tobacco abuse 12/23/2017 - Present Current Assessment AND Plan -smoking cessation encouraged History of cerebrovascular accident (CVA) with residual deficit 04/20/2015 - Present Current Assessment AND Plan CVA and Carotid Stenosis -hold ASA and plavix for now Essential hypertension, benign 06/22/2012 - Present Current Assessment AND Plan -continue home lisinopril and home amlodipine -follow BP's Hypokalemia 12/29/2017 - Present Current Assessment AND Plan Assessment: K 3.3 today PLAN: -KCL 20 mEq given -monitor K * (Principal)Diabetic ulcer of toe of left foot associated with type 2 diabetes mellitus, limited to breakdown of skin (HCC) 10/17/2017 - Present Current Assessment AND Plan Diabetic Foot Ulcer with Surgical Site Infection s/p left 5th digit amputation -appreciate Ortho recs: MRI foot shows focal fluid collection near the amputation site and erosive changes in the bone at the amputation site. ?- IANDD 12/25 done - Debridement done, 5th metatarsal, left foot -Secondary closure, surgical wound, left foot done -wound culture sent , growing few organisms preliminary results -blood culture showed no growth -PT/OT -wound care -percocet prn q6hr ID recs-Vanc dose changed to 750 mg q24h -Continue metronidazole until anaerobe cult reported - With osteomyelitis, Staph epidermidis. Continue ABx for 6 weeks total for osteo - Pain - Sanderson 5 mg q 4 hrs -Vascular surgery recs Cont management per primary team - Wound vac per podiatry - Vanc and Flagyl per ID - ABIs Rt leg 0.9 ,left side 0.74 left leg has moderate arterial disease. - Unlikely to need vascular intervention at this time, will follow up vascular surgeon recs Diabetes ([facility]) 12/23/2017 - Present Current Assessment AND Plan -A1C 14.5% from October 2017 -lantus -SSI -monitor bg -diabetic education - Blood sugar 111 today C. difficile diarrhea 12/28/2017 - Present Current Assessment AND Plan Assessment: PLAN: --20 episodes of loose stools 12/27/17 night -WBC count went up 14.22.to 7.65 yesterday -C.diff testing ordered and came positive -c.diff precautions -oral vancomycin started yesterday -diarrhea resolved -WBC count down to 8.8 today Labs: Most recent labs reviewed 12/29 0345 12/30 0113 Sodium 143 142 Potassium 3.3 3.8 Chloride 107 105 CO2 31 32 BUN 11 8 Creatinine 0.75 0.77 Glucose 55 111 HGB 9.9 10.1 Hematocrit 30.1 31.7 WBC 9.65 8.81 Platelet Count 384 407 Lines/ Drains/ Airways: Lines, Drains, and Airways Line Central Line Single Lumen 12/26/17 1421 Peripherally Inserted (PICC) Right Arm 4.0 [place] 3 days DVT PPx: Anticoagulant AND Antiplatelet Medications Start Dose Route Frequency Ordered Stop 12/26/17 0900 enoxaparin 40 mg injection (LOVENOX) (Medical At Risk ) 40 mg SUBCUTANEOUS DAILY 12/25/17 1803 -- Disposition: Anticipate discharge to: Long-Term Facility SIGNATURE: Alfredo Cantu MD PATIENT NAME: Davina Green DATE: December 30, 2017 TIME: 1:06 PM PAGER/CONTACT #: [phone] NURSING PROG Observed: 12/30/2017 Status: COMPLETED Source: [place] 10:09 AM CLINIC OTHER CAMPUS REPOSITORY O ID: [id number] Author: Loli (Rn) INES Pimentel Service: Nursing Author Type: Registered Nurse Type: Nursing Progress Note Filed: 12/30/2017 10:11 AM Note Text: Nursing Progress Note Patient Name: Davina Green Patient Location: [id number] [id number]* Event(s) / Intervention Note: The patient complained of the following problems: pain in L FOOT 09/05. The time of the event occurred at: 0950. The following intervention(s) were initiated: 2mg morphine medication given. and educated patient about breakthrough pain level requirements for morphine dose. After the initiated interventions, the following observation(s) were made: patient has no complaints., patient appears improved. and nothing further noted. Will continue to observe and check with patient.. This note was completed by: Loli Pimentel RN HEMOGRAM Collected: 12/30/2017 Status: F Source: [facility] 1:13 AM HEALTH SYSTEM REPOSITORY TYPE CODE TESTS RESULT OUT OF REFERENCE UNITS RANGE LAB WBC(LOINC) 3.98-10.04 thou/cmm WBC 8.81 LAB RBC(LOINC) 3.93-5.22 mil/cmm Low RBC 3.50 LAB HGB(LOINC) 11.2-15.7 g/dL Low Hgb 10.1 LAB HCT(LOINC) 34.1-44.9 % Low Hct 31.7 LAB MCV(LOINC) 79.4-94.8 fl MCV 90.6 LAB MCH(LOINC) 25.6-32.2 pg MCH 28.9 LAB MCHC(LOINC) 31.6-34.8 % MCHC 31.9 LAB RDW(LOINC) 11.7-14.4 % High RDW 14.7 LAB RDWSD(LOINC 36.4-46.3 fl ) High RDW SD 48.5 LAB PLT(LOINC) 182-369 thou/cmm High Platelet 407 LAB MPV(LOINC) 9.4-12.3 fl MPV 9.5 Performed By: #### CBC1 #### [facility] [address] [place] [address] BASIC PANEL Collected: 12/30/2017 Status: F Source: [facility] 1:13 AM HEALTH SYSTEM REPOSITORY TYPE CODE TESTS RESULT OUT OF REFERENCE UNITS RANGE LAB NA(LOINC) 136-145 mEq/L Sodium Blood 142 LAB K(LOINC) 3.5-5.1 mEq/L Potassium Blood 3.8 LAB CL(LOINC) 98-107 mEq/L Chloride Blood 105 LAB CO2(LOINC) 21-32 mEq/L CO2 Blood 32 LAB GLU(LOINC) 70-99 mg/dL Glucose High Blood 111 LAB BUN(LOINC) 7-18 mg/dL BUN Blood 8 LAB CREA(LOINC 0.51-0.95 mg/dL ) Creatinine Blood 0.77 LAB CA(LOINC) 8.5-10.1 mg/dL Low Calcium Blood 8.3 LAB ANGAP(LOIN 8-16 C) Anion Gap 9 Performed By: #### P8 #### [facility] [address] [place], [place] [address] VANCOMYCIN,TROUGH Collected: Status: F Source: [place] 12/29/2017 6:45 PM [facility] REPOSITORY TYPE CODE TESTS RESULT OUT OF RANGE REFERENCE UNITS LAB VANCT(LOINC 10.0-20.0 mg/L ) 12.3 Vancomycin,T rough Performed By: #### VANCT #### [facility] [address] [place], [place] [address] CONSULT PROG Observed: 12/29/2017 Status: COMPLETED Source: [place] 3:42 PM CLINIC OTHER CAMPUS REPOSITORY HNO ID: [id number] Author: Avi Camp Service: Infectious Disease Author Type: Physician Type: Consult Progress Note Filed: 12/29/2017 3:46 PM Note Text: INFECTIOUS DISEASE CONSULT PROGRESS NOTE SERVICE DATE: 12/29/2017 SERVICE TIME: 3:42 PM Subjective INTERVAL HISTORY / PERTINENT Review of Systems Constitutional: Negative for chills and fever. Gastrointestinal: Negative for abdominal pain and diarrhea. Musculoskeletal: Denies pain in foot. Current Facility-Administered Medications: vancomycin 750 mg in dextrose (iso-osmotic) 150 mL 0.75 g INTRAVENOUS q 24 HR vancomycin 125 mg oral liquid (VANCOCIN) 125 mg ORAL QID lactated ringers infusion 125 mL/hr INTRAVENOUS CONTINUOUS morphine 2-4 mg injection 2-4 mg INTRAVENOUS q 2 H PRN 0.9% NaCl 10 mL 10 mL INTRAVENOUS q 12 H 0.9% NaCl 20 mL 20 mL INTRAVENOUS PRN enoxaparin 40 mg injection (LOVENOX) 40 mg SUBCUTANEOUS DAILY ondansetron 4 mg tab(s) (ZOFRAN) 4 mg ORAL q 6 H PRN Or ondansetron (PF) 4 mg injection (ZOFRAN) 4 mg INTRAVENOUS q 6 H PRN docusate sodium 100 mg cap(s) (COLACE) 100 mg ORAL BID HYDROcodone 5 mg - acetaminophen 325 mg tablet (NORCO) 1-2 tablet ORAL q 4 H PRN acetaminophen 325 mg tab(s) (TYLENOL) 325 mg ORAL q [address] 40 mg tab(s) (PROTONIX) 40 mg ORAL DAILY (6 AM) lisinopril 30 mg tab(s) (ZESTRIL,PRINIVIL) 30 mg ORAL DAILY buPROPion XL 150 mg tab(s) (WELLBUTRIN XL) 150 mg ORAL DAILY sertraline 100 mg tab(s) (ZOLOFT) 100 mg ORAL DAILY fluocinonide 0.05 % (LIDEX) TOPICAL DAILY insulin lispro pen (rapid acting) (HumaLOG KWIKPEN) SUBCUTANEOUS w MEALS metroNIDAZOLE 500 mg PREMIX piggyback (FLAGYL) 500 mg INTRAVENOUS q 8 H insulin lispro 5 Units pen (rapid acting) (HumaLOG KWIKPEN) 5 Units SUBCUTANEOUS w MEALS atorvastatin 40 mg tab(s) (LIPITOR) 40 mg ORAL AT BEDTIME diphenhydrAMINE 25 mg (BENADRYL) 25 mg ORAL q 6 H PRN amLODIPine 10 mg tab(s) (NORVASC) 10 mg ORAL DAILY insulin glargine 14 Units pen (long acting) (LANTUS SOLOSTAR, BASAGLAR KWIKPEN) 14 Units SUBCUTANEOUS AT BEDTIME dextrose 40 % 15 g 15 g ORAL PRN Or glucagon 1 mg injection (GLUCAGEN) 1 mg INTRAMUSCULAR PRN Or dextrose 50% in water 25 mL syringe 12.5 g INTRAVENOUS PRN Objective PHYSICAL EXAM: Vital Signs: BP 120/72 Pulse 85 Temp 37 ?C (98.6 ?F) (Oral) Resp 18 Ht 152.4 cm (5') Wt 56.7 kg (125 lb) SpO2 100% BMI 24.41 kg/m? Physical Exam Abdominal: There is no tenderness. Musculoskeletal: Dressing in place. No tenderness of foot or ankle. Vitals reviewed. DATA: Diagnostic Tests Reviewed for Today's Visit: Most recent labs Note that vanco level draw this am at WRONG TIME was not a trough dose. Micro: No new results, no anaerobes in foot cult. Recent Labs 12/29/17 0345 12/28/17 0655 12/27/17 0543 WBC 9.65 14.22* 7.65 HB 9.9* 11.0* 10.5* HCT 30.1* 33.5* 31.7* PLT 384* 432* 367 CREAT 0.75 0.84 0.80 Vancomycin,Random (mg/L) Date Value 12/28/2017 21.0 Impression/Recommendations Diabetic ulcer of toe of left foot associated with type 2 diabetes mellitus, limited to breakdown of skin (HCC) POA: Yes Assessment AND Plan: With osteomyelitis, Staph epidermidis. Vanco level drawn at wrong time, reordered for tonight 1 hour predose. Continue for 6 weeks total for osteo. C. difficile diarrhea POA: No Assessment AND Plan: continue po vanco for 10 days. SIGNATURE: Avi Camp MD PATIENT NAME: Davina Green DATE: December 29, 2017 TIME: 3:42 PM PAGER/CONTACT #: [id number] PROGRESS Observed: 12/29/2017 Status: COMPLETED Source: [place] 3:[address] [facility] OTHER CAMPUS REPOSITORY HNO ID: [id number] Author: Casey Flood MD Service: Hospital Medicine Author Type: Resident Type: Progress Notes Filed: 12/29/2017 4:33 PM Note Text: Attestation signed by Live Fabian at 12/29/2017 4:57 PM Patient feeling ok but upset that she is still in hospital. She denies any diarrhea since last night. Physically feeling ok. Eating well NAD. Afebrile. 120.72, 85, 18 Lungs: Clear CV: RRR Abd: Soft, non-tender Labs: + C.Diff; WBC=9.65. Blood sugars under good control (low blood sugar yesterday. I saw and evaluated the patient. Discussed with the resident and agree with resident's findings and plan as documented in the resident's note. Plan: DM ulcer left foot, osteo. On IV Vancomycin. On po Vanc for C Diff (no diarrhea reported today). Follow han smith MD SERVICE DATE: 12/29/2017 SERVICE TIME: 3:42 PM No new subjective AND objective note has been filed under this hospital service since the last note was generated. CARE COORDINATION: No Patient Care Coordination Note on file. ASSESSMENT AND PLAN Assessment AND Plan, all Hosp Problems Active Hospital Problems as of 12/29/2017 Noted - Resolved Hospital * (Principal)Diabetic ulcer of toe of left foot associated with type 2 diabetes mellitus, limited to breakdown of skin ([facility]) 10/17/2017 - Present Current Assessment AND Plan Diabetic Foot Ulcer with Surgical Site Infection s/p left 5th digit amputation -appreciate Ortho recs: MRI foot shows focal fluid collection near the amputation site and erosive changes in the bone at the amputation site. ?- IANDD 12/25 done - Debridement done, 5th metatarsal, left foot -Secondary closure, surgical wound, left foot done -wound culture sent , growing few organisms preliminary results -blood culture showed no growth -PT/OT -wound care -percocet prn q6hr ID recs-Vanc dose changed to 750 mg q24h -Continue metronidazole until anaerobe cult reported - With osteomyelitis, Staph epidermidis. Continue ABx for 6 weeks total for osteo -Vascular surgery recs Cont management per primary team - Wound vac per podiatry - Vanc and Flagyl per ID - ABIs Rt leg 0.9 ,left side 0.74 left leg has moderate arterial disease. - Unlikely to need vascular intervention at this time, will follow up vascular surgeon recs Diabetes ([facility]) 12/23/2017 - Present Current Assessment AND Plan -A1C 14.5% from October 2017 -[place]us -SSI -monitor bg -diabetic education Essential hypertension, benign 06/22/2012 - Present Current Assessment AND Plan -continue home lisinopril and home amlodipine -follow BP's Hyperlipidemia with target LDL less than 100 03/18/2014 - Present Current Assessment AND Plan -atorvastatin 40mg Tobacco abuse 12/23/2017 - Present Current Assessment AND Plan -smoking cessation encouraged History of cerebrovascular accident (CVA) with residual deficit 04/20/2015 - Present Current Assessment AND Plan CVA and Carotid Stenosis -hold ASA and plavix for now C. difficile diarrhea 12/28/2017 - Present Current Assessment AND Plan Assessment: PLAN: --20 episodes of loose stools 12/27/17 night -WBC count went up 14.22.to 7.65 yesterday -C.diff testing ordered and came positive -c.diff precautions -oral vancomycin started yesterday -diarrhea resolved -WBC count down to 9.65 today Hypokalemia 12/29/2017 - Present Current Assessment AND Plan Assessment: K 3.3 today PLAN: -KCL 20 mEq given -monitor K Medication and Non-Pharmacologic VTE Prophylaxis/Anticoagulants Anticoagulant AND Antiplatelet Medications Start Dose Route Frequency Ordered Stop 12/26/17 0900 enoxaparin 40 mg injection (LOVENOX) (Medical At Risk ) 40 mg SUBCUTANEOUS DAILY 12/25/17 1803 -- 12/27/17 2230 pneumatic compression stockings ([place]) 12/25/17 1815 vte pharmacologic prophylaxis contraindicated ([place]) 12/25/17 1815 pneumatic compression stockings ([place]) 12/21/17 2145 pneumatic compression stockings ([place]) 12/21/17 2145 activity - mobilize patient ([place]) VTE Prophylaxis: VTE prophylaxis appropriate Disposition:? [facility] now unable to accept patient due to C-diff. and inability to provide private room. Patient given list of SNF's. Will share with family and make a decision. Plan of care discussed with: Attending and Patient SIGNATURE: Casey Flood MD PATIENT NAME: Davina Green DATE: December 29, 2017 TIME: 3:42 PM PAGER/CONTACT #: [phone] CASE MANAGEM Observed: 12/29/2017 Status: COMPLETED Source: [place] 11:22 AM CLINIC OTHER CAMPUS REPOSITORY HNO ID: [id number] Author: Brisa GuillenRn) INES Fierro Service: Care Management Author Type: Registered Nurse Type: Care Mgt Progress Note Filed: 12/29/2017 11:58 AM Note Text: CARE MANAGEMENT PROGRESS NOTE SERVICE DATE: 12/29/2017 SERVICE TIME: 11:22 AM LOS: 8 days Needs Prior to Discharge: To Be Determined [facility] now unable to accept patient due to C-diff. and inability to provide private room. Patient given list of SNF's. Will share with family and make a decision. SIGNATURE: Brisa Fierro RN PATIENT NAME: Davina Green DATE: December 29, 2017 TIME: 11:22 AM PAGER/CONTACT #: [phone] THERAPY NT Observed: 12/29/2017 Status: COMPLETED Source: [place] 10:31 AM CLINIC OTHER CAMPUS REPOSITORY HNO ID: [id number] Author: Magdalena Pena Service: Physical Therapy Author Type: Resident Care Associate Type: Therapy (PT/OT/Speech/Resp) Filed: 12/29/2017 10:38 AM Note Text: Attestation signed by Mirian Griffith at 12/29/2017 1:34 PM I reviewed and agree with the documentation corresponding to this therapy visit. SIGNATURE: Mirian Griffith, PT DATE: December 29, 2017 TIME: 1:34 PM Physical Therapy Treatment SERVICE DATE: 12/29/2017 SERVICE TIME: 1000 to 1025 ROOM: [id number] Recommended Discharge Disposition: Home PT Recommended Discharge Disposition Comments: Pt mobilizing safely with assistive device on stairs and level surfaces. Anticipated Discharge Needs: Physical Assist at Home;Equipment Physical Assist at Home for: Cleaning;Laundry;Shopping;Transportation Recommended Discharge Equipment: Wheeled Walker PT Recommendations to Nursing: With assist of 1 person;Ambulate with device;To bathroom (assist with the wound vac) Device: Wheeled Walker PT 6 Clicks Score: 21 Precautions/Activity Restrictions: Weight Bearing Restrictions;Lines/Tubes/Drains (wound vac.) Precaution/Activity Restriction Comments: heel weight bearing Isolation Type: None Extremity With Weight Bearing Restricted: Left Lower Extremity Left Lower Extremity Weight Bearing Status: Heel Weight Bearing ASSESSMENT : Patient limited with mobility due to diarrhea, able to get to and from bedside commode but needed cueing to slow down for safety, demonstrates good adherence to weight bearing into left heel. All goals on going, Continue to recommend home at discharge. Patient Disposition at Start of Session: Supine in Bed;Call Thomas in Reach Patient Disposition at End of Session: Supine in Bed;Call Thomas in Reach Tolerance Limited By Other: See Comment (diarrhea ) Physical Therapy Problem List: Pain;Decreased Strength;Functional Mobility Impairment Patient /Caregiver Goals: Walk Goals for Plan of Care: Able to perform HEP with: Verbal Cues Only Transfer sit to/from stand with: Supervision Ambulate with: Supervision Distance: 100 Device: Wheeled Walker Ambulate up and down steps with: Stand By Assistance Number of steps: 5 Device: Rail;Crutch(es) (goal met) Progress Toward Goals: Progressing as expected Rehab Potential: Excellent PLAN: Treatment Frequency (times per week): 5 (2-5) Current admission Treatment Interventions: Education;Strengthening;Functional Mobility Training Plan of Care developed with: Patient TREATMENT INTERVENTIONS: Therapy Diagnosis: Reduced mobility-other;General symptoms and signs-other Interventions Provided: Therapeutic Exercise (55678);Therapeutic Activity (78099) Therapeutic Exercise (43030) Treatment Minutes: 15 1 unit Skilled Intervention(s): Instruction in therapeutic exercise: Patient completed general strengthening exercises in supine and at edge of bed (ankle pump, quad set, gluteal set, heel slide, hip abd/add, straight leg raise, long arc quad, short arc quad, hip adductor squeeze) x 20 reps bilateral lower extremity, with minimal verbal cueing for facilitation of muscle control, optimal recruitment and alignment Educated patient on importance of performing exercises 2-3/day to maintain strength and performing anticoagulation exercises frequently throughout day to prevent blood clots due increased immobility caused by diarrhea Therapeutic Activity (21463) Treatment Minutes: 8 1 unit Skilled Intervention(s): Completed supine to and from sit pushing with upper extremities to sit up Instruction in sit to and from stand technique with proper hand placement and body positioning at edge of bed/commode, minimal cueing for weight bearing into left heel Took several small steps with walker to and from bedside commode with cueing to slow down for increase safety Sat on bedside commode for several minutes Total Timed Code Treatment Minutes: 23 Total Treatment Time (minutes): 23 SUBJECTIVE: Current Hospital Course: Chart reviewed and no significant medical updates relevant to therapy were noted Reason for Physical Therapy Consult : post acute placement Patient Report: C/O 8/10 left foot pain and having stomach issues/diarrhea. Agreeable to treatment but wants to stay close to bedside commode/bed due to diarrhea Home Environment Patient Lives With: ( and son. Was at SNF prior to admit) Assistance Available: 24 Hour (son ) Entry To Home: Stairs;With Rail Number Of Stairs Into Home: 5 Number Of Stairs To Bed/Bath: 10 Stairs to Bed/Bath with: Unilateral Rail Tub/Shower Type: tub shower Equipment Owned: Crutch(es) Prior Functional Level: Within Functional Limits (pt mostly indep with ADLs at facility prior to arrival) OBJECTIVE: CURRENT FUNCTIONAL STATUS: Current Functional Mobility Assist Level Additional Information Rolling Supervision Supine to Sit Supervision Sit to Supine Supervision Scooting Supervision Sit to Stand Stand By Assistance Stand to Sit Stand By Assistance Bed to Chair Toilet/Commode Stand By Assistance Gait Contact Guard Assistance Gait Device: None;Wheeled Walker Gait Distance (feet): 4ftx2 Stairs Curb Step Car Transfer General Gait Deviations: Maggie decreased;Step length decreased;Difficulty changing direction/turning;Non-functional gait speed (left foot heel weight bearing) Balance: (safe with assistive devices) Please see discipline specific clinical documentation flowsheet for complete details for this therapy evaluation/treatment. SIGNATURE: Magdalena Pena PTA PATIENT NAME: Davina Green DATE: December 29, 2017 TIME: 10:31 AM CASE MANAGEM Observed: 12/29/2017 Status: COMPLETED Source: [place] 10:17 AM CLINIC OTHER CAMPUS REPOSITORY HNO ID: [id number] Author: Brisa De La Cruz) INES Fierro Service: Care Management Author Type: Registered Nurse Type: Care Mgt Progress Note Filed: 12/29/2017 10:23 AM Note Text: CARE MANAGEMENT PROGRESS NOTE SERVICE DATE: 12/29/2017 SERVICE TIME: 10:17 AM LOS: 8 days Needs Prior to Discharge: To Be Determined Notes reviewed. Remains on IV Vanc and Flagyl per ID. Current plan is for patient to return to [facility] at discharge. SIGNATURE: Brisa Fierro RN PATIENT NAME: Davina Green DATE: December 29, 2017 TIME: 10:17 AM PAGER/CONTACT #: [phone] NUTRITION Observed: 12/29/2017 Status: COMPLETED Source: [place] 8:33 AM CLINIC OTHER CAMPUS REPOSITORY HNO ID: [id number] Author: Johanne (Everette) Amanda Service: Nutrition Therapy Author Type: Registered Dietitian Type: Nutrition Filed: 12/29/2017 3:06 PM Note Text: NUTRITION THERAPY PROGRESS NOTE SERVICE DATE: 12/29/2017 SERVICE TIME: 2:50 RECOMMENDED DIAGNOSIS: NO MALNUTRITION IDENTIFIED per Registered Dietitian on 12/22/17 NUTRITION CARE PLAN Problem, Etiology and Signs/Symptoms: Increased nutrient needs related to toe wound?as evidenced by non-healing toe post amputation. ? Intervention: 1. Encouraged PO intake and protein with each meal to help wound healing. Monitor and Evaluation: Goal: Meet >75% of estimated needs Monitor fluid/electrolyte balance Monitor labs, I/Os, vital signs, weight Discharge Nutrition Recommendations: Diet: Diet: Carbohydrate Controlled Reason for Visit: Follow-up Per HPI: This patient is a 62 year old female with the PMH of diabetes, HTN, CVA presented with left foot pain due to left toe abcess since the amputation. 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 who had concerns for ongoing infection and wanted the abscess to be drained. The patient says that she noticed ankle and toe swelling since the last 2 days. She rated the pain as 10 in intensity, sharp in nature and constant, relieved by oxycodone. We put her on PO percocet for the pain. She did notice the skin was erythematous. No history of fever, chills, NVD. She does complain of ongoing dizziness ever since she had carotid surgery for CVA . Reports 30 lbs weight loss in the last 6 months despite having normal appetite. Interval History: Incision and drainage on foot l abscess completed on 12/25. Wound vac in place. Per care management, plan for d/c to [facility] when medically stable. Left foot debridement on 12/27. Per hospital medicine note on 12/28, patient had 20 episodes of diarrhea that night. Patient's stool positive for c.diff. Present Diet Order: Carbohydrate Controlled Nutritional Intake: >75% estimated energy needs over the past 7 day(s) Patient reported good appetite and PO intake. Patient has no nutritional concerns at this time. GI Sypmtoms: Last BM on 12/28 Admission Weight: 56.7 kg (125 lb) Current Weight: 56.7 kg (125 lb) Body mass index is 24.41 kg/m?. normal Current Facility-Administered Medications: vancomycin 750 mg in dextrose (iso-osmotic) 150 mL 0.75 g INTRAVENOUS q 24 HR vancomycin 125 mg oral liquid (VANCOCIN) 125 mg ORAL QID lactated ringers infusion 125 mL/hr INTRAVENOUS CONTINUOUS morphine 2-4 mg injection 2-4 mg INTRAVENOUS q 2 H PRN 0.9% NaCl 10 mL 10 mL INTRAVENOUS q 12 H 0.9% NaCl 20 mL 20 mL INTRAVENOUS PRN enoxaparin 40 mg injection (LOVENOX) 40 mg SUBCUTANEOUS DAILY ondansetron 4 mg tab(s) (ZOFRAN) 4 mg ORAL q 6 H PRN Or ondansetron (PF) 4 mg injection (ZOFRAN) 4 mg INTRAVENOUS q 6 H PRN docusate sodium 100 mg cap(s) (COLACE) 100 mg ORAL BID HYDROcodone 5 mg - acetaminophen 325 mg tablet (NORCO) 1-2 tablet ORAL q 4 H PRN acetaminophen 325 mg tab(s) (TYLENOL) 325 mg ORAL q [address] 40 mg tab(s) (PROTONIX) 40 mg ORAL DAILY (6 AM) lisinopril 30 mg tab(s) (ZESTRIL,PRINIVIL) 30 mg ORAL DAILY buPROPion XL 150 mg tab(s) (WELLBUTRIN XL) 150 mg ORAL DAILY sertraline 100 mg tab(s) (ZOLOFT) 100 mg ORAL DAILY fluocinonide 0.05 % (LIDEX) TOPICAL DAILY insulin lispro pen (rapid acting) (HumaLOG KWIKPEN) SUBCUTANEOUS w MEALS metroNIDAZOLE 500 mg PREMIX piggyback (FLAGYL) 500 mg INTRAVENOUS q 8 H insulin lispro 5 Units pen (rapid acting) (HumaLOG KWIKPEN) 5 Units SUBCUTANEOUS w MEALS atorvastatin 40 mg tab(s) (LIPITOR) 40 mg ORAL AT BEDTIME diphenhydrAMINE 25 mg (BENADRYL) 25 mg ORAL q 6 H PRN amLODIPine 10 mg tab(s) (NORVASC) 10 mg ORAL DAILY insulin glargine 14 Units pen (long acting) (LANTUS SOLOSTAR, BASAGLAR KWIKPEN) 14 Units SUBCUTANEOUS AT BEDTIME dextrose 40 % 15 g 15 g ORAL PRN Or glucagon 1 mg injection (GLUCAGEN) 1 mg INTRAMUSCULAR PRN Or dextrose 50% in water 25 mL syringe 12.5 g INTRAVENOUS PRN Intake/Output 12/25/17 07 - 12/26/17 0659 12/26/17 07 - 12/27/17 0659 12/27/17 07 - 12/28/17 0659 12/28/17 07 - 12/29/17 0659 Intake (ml) 1325 3150 1400 1194 Output (ml) 1400 2550 1425 700 Net (ml) -75 600 -25 494 Surgical Incision 12/27/17 2050 Foot - Left (Active) Dressing Status Clean, Dry AND Intact 12/28/2017 9:30 PM Dressing /Treatment Type Dry Sterile Dressing 12/28/2017 9:30 PM Drainage Amount None 12/28/2017 9:30 PM Number of days: 1 MNT Billing Type: Re-assess/15 min 3 units SIGNATURE: JOHANNE PATEL RD PATIENT NAME: Davina Green DATE: December 29, 2017 TIME: 8:33 AM PAGER: [phone] PROGRESS Observed: 12/29/2017 Status: COMPLETED Source: [place] 7:15 AM CLINIC OTHER CAMPUS REPOSITORY HNO ID: [id number] Author: Nicholas Sánchez MD Service: Vascular Surgery Author Type: Resident Type: Progress Notes Filed: 12/29/2017 10:55 AM Note Text: Vascular Surgery Progress Note SERVICE DATE: 12/29/2017 Subjective SUBJECTIVE: NAEON. No more episodes of diarrhea. Pain controlled. Denies N/V/CP/SOB Diet: DIET CARBOHYDRATE CONTROLLED Objective OBJECTIVE: Vitals: Temp (24hrs), Av.9 ?C (98.4 ?F), Min:36.7 ?C (98.1 ?F), Max:37 ?C (98.6 ?F) BP 142/64 Pulse 89 Temp 36.8 ?C (98.2 ?F) (Oral) Resp 18 Ht 152.4 cm (5') Wt 56.7 kg (125 lb) SpO2 98% BMI 24.41 kg/m? O2 Therapy: Room Air IANDO: Date 12/28/17699 - 12/29/17 0659 12/29/17 07 - 12/30/17 0659 Shift 8972-9006 0907-0457 6768-9786 24 Hour Total 3637-0181 3245-2512 3840-4773 24 Hour Total I N T A K E PO 240 240 PO 240 240 IV 511 443 954 LR 361 443 804 Flagyl IV 100 100 Aztreonam (Azactam) IV 50 50 Shift Total 494 280 3147 O U T P U T Urine 700 700 Void (ml) 700 700 # of BMs Number of BMs 3 x 3 x Shift Total 700 700 Weight (kg) 56.7 56.7 56.7 56.7 56.7 56.7 56.7 56.7 MEDICATIONS Current Facility-Administered Medications: vancomycin 750 mg in dextrose (iso-osmotic) 150 mL 0.75 g INTRAVENOUS q 24 HR vancomycin 125 mg oral liquid (VANCOCIN) 125 mg ORAL QID lactated ringers infusion 125 mL/hr INTRAVENOUS CONTINUOUS morphine 2-4 mg injection 2-4 mg INTRAVENOUS q 2 H PRN 0.9% NaCl 10 mL 10 mL INTRAVENOUS q 12 H 0.9% NaCl 20 mL 20 mL INTRAVENOUS PRN enoxaparin 40 mg injection (LOVENOX) 40 mg SUBCUTANEOUS DAILY ondansetron 4 mg tab(s) (ZOFRAN) 4 mg ORAL q 6 H PRN Or ondansetron (PF) 4 mg injection (ZOFRAN) 4 mg INTRAVENOUS q 6 H PRN docusate sodium 100 mg cap(s) (COLACE) 100 mg ORAL BID HYDROcodone 5 mg - acetaminophen 325 mg tablet (NORCO) 1-2 tablet ORAL q 4 H PRN acetaminophen 325 mg tab(s) (TYLENOL) 325 mg ORAL q [address] 40 mg tab(s) (PROTONIX) 40 mg ORAL DAILY (6 AM) lisinopril 30 mg tab(s) (ZESTRIL,PRINIVIL) 30 mg ORAL DAILY buPROPion XL 150 mg tab(s) (WELLBUTRIN XL) 150 mg ORAL DAILY sertraline 100 mg tab(s) (ZOLOFT) 100 mg ORAL DAILY fluocinonide 0.05 % (LIDEX) TOPICAL DAILY insulin lispro pen (rapid acting) (HumaLOG KWIKPEN) SUBCUTANEOUS w MEALS metroNIDAZOLE 500 mg PREMIX piggyback (FLAGYL) 500 mg INTRAVENOUS q 8 H insulin lispro 5 Units pen (rapid acting) (HumaLOG KWIKPEN) 5 Units SUBCUTANEOUS w MEALS atorvastatin 40 mg tab(s) (LIPITOR) 40 mg ORAL AT BEDTIME diphenhydrAMINE 25 mg (BENADRYL) 25 mg ORAL q 6 H PRN amLODIPine 10 mg tab(s) (NORVASC) 10 mg ORAL DAILY insulin glargine 14 Units pen (long acting) (LANTUS SOLOSTAR, BASAGLAR KWIKPEN) 14 Units SUBCUTANEOUS AT BEDTIME dextrose 40 % 15 g 15 g ORAL PRN Or glucagon 1 mg injection (GLUCAGEN) 1 mg INTRAMUSCULAR PRN Or dextrose 50% in water 25 mL syringe 12.5 g INTRAVENOUS PRN Labs: Recent Labs 12/29/17 0345 12/28/17 0655 NA 143 141 K 3.3* 3.5 CHLOR 107 106 CO2 31 28 BUN 11 11 CREAT 0.75 0.84 GLUC 55* 85 ANION 8 11 CA 8.3* 8.3* WBC 9.65 14.22* HB 9.9* 11.0* HCT 30.1* 33.5* PLT 384* 432* Exam: GENERAL: No distress, Alert NEURO: AANDOx3, no focal deficits HEENT: normocephalic, atraumatic LUNGS: Unlabored breathing O2 Therapy: Room Air CARDIAC: Regular rate and rhythm as above, BLE with intact motor and sensation, warm to touch, DP/PT pulses not palpable. ABDOMEN: Soft, non-tender, non-distended EXTREMITIES: [place], No deformities, No edema. L foot wrapped SKIN: Skin color, texture, turgor normal, No rashes or lesions ASSESSMENT AND PLAN: Active Hospital Problems Diagnosis Date Noted - Diabetic ulcer of toe of left foot associated with type 2 diabetes mellitus, limited to breakdown of skin (HCC) 10/17/2017 Priority: A - Diabetes (HCC) 12/23/2017 Priority: B - Essential hypertension, benign 06/22/2012 Priority: D - Hyperlipidemia with target LDL less than 100 03/18/2014 Priority: F - Tobacco abuse 12/23/2017 Priority: G - Diarrhea of presumed infectious origin 12/28/2017 - History of cerebrovascular accident (CVA) with residual deficit 04/20/2015 - Management per primary team - wound vac removed - Vanc and Flagyl per ID - Do not yet have angio recs, will continue to request them. Assessment and plan discussed with attending: Dr. Landin SIGNATURE: Nicholas Sánchez MD PATIENT NAME: Davina Green DATE: December 29, 2017 TIME: 7:16 AM Pager: [phone] PROGRESS Observed: 12/29/2017 Status: COMPLETED Source: [place] 5:53 AM CLINIC OTHER CAMPUS REPOSITORY HNO ID: [id number] Author: Brandon Ball Service: Orthopaedic Surgery Author Type: Resident Type: Progress Notes Filed: 12/29/2017 6:18 AM Note Text: Orthopaedic INPATIENT PROGRESS NOTE 62 YO F POD1?s/p closure L surgical incisional wound ? 1. Regular diet 2. Pain control 3. WBAT through heel LLE 5. DVT ppx: per primary 6. PPI ppx: Protonix 7. Abx per ID: Vancomycin, flagyl; PICC placed 12/26/17 8. Appreciate Vascular Surgery recs 9. Follow up intra-operative deep wound and bone cultures: Staphylococcus epidermidis 10. PT/OT 11. Medical management per Don 12. Will change L foot dressing this afternoon INTERVAL HPI: No acute events overnight. Patient's stool positive for c.diff. Has not had any episodes diarhhea overnight. Pain controlled. MEDICATIONS: Current hospital medications: vancomycin 750 mg in dextrose (iso-osmotic) 150 mL 0.75 g INTRAVENOUS q 24 HR vancomycin 125 mg oral liquid (VANCOCIN) 125 mg ORAL QID lactated ringers infusion 125 mL/hr INTRAVENOUS CONTINUOUS morphine 2-4 mg injection 2-4 mg INTRAVENOUS q 2 H PRN 0.9% NaCl 10 mL 10 mL INTRAVENOUS q 12 H 0.9% NaCl 20 mL 20 mL INTRAVENOUS PRN enoxaparin 40 mg injection (LOVENOX) 40 mg SUBCUTANEOUS DAILY ondansetron 4 mg tab(s) (ZOFRAN) 4 mg ORAL q 6 H PRN ondansetron (PF) 4 mg injection (ZOFRAN) 4 mg INTRAVENOUS q 6 H PRN docusate sodium 100 mg cap(s) (COLACE) 100 mg ORAL BID HYDROcodone 5 mg - acetaminophen 325 mg tablet (NORCO) 1-2 tablet ORAL q 4 H PRN acetaminophen 325 mg tab(s) (TYLENOL) 325 mg ORAL q [address] 40 mg tab(s) (PROTONIX) 40 mg ORAL DAILY (6 AM) lisinopril 30 mg tab(s) (ZESTRIL,PRINIVIL) 30 mg ORAL DAILY buPROPion XL 150 mg tab(s) (WELLBUTRIN XL) 150 mg ORAL DAILY sertraline 100 mg tab(s) (ZOLOFT) 100 mg ORAL DAILY fluocinonide 0.05 % (LIDEX) TOPICAL DAILY insulin lispro pen (rapid acting) (HumaLOG KWIKPEN) SUBCUTANEOUS w MEALS metroNIDAZOLE 500 mg PREMIX piggyback (FLAGYL) 500 mg INTRAVENOUS q 8 H insulin lispro 5 Units pen (rapid acting) (HumaLOG KWIKPEN) 5 Units SUBCUTANEOUS w MEALS atorvastatin 40 mg tab(s) (LIPITOR) 40 mg ORAL AT BEDTIME diphenhydrAMINE 25 mg (BENADRYL) 25 mg ORAL q 6 H PRN amLODIPine 10 mg tab(s) (NORVASC) 10 mg ORAL DAILY insulin glargine 14 Units pen (long acting) (LANTUS SOLOSTAR, BASAGLAR KWIKPEN) 14 Units SUBCUTANEOUS AT BEDTIME dextrose 40 % 15 g 15 g ORAL PRN glucagon 1 mg injection (GLUCAGEN) 1 mg INTRAMUSCULAR PRN dextrose 50% in water 25 mL syringe 12.5 g INTRAVENOUS PRN PHYSICAL EXAM: BP 142/64 Pulse 89 Temp 36.8 ?C (98.2 ?F) (Oral) Resp 18 Ht 152.4 cm (5') Wt 56.7 kg (125 lb) SpO2 98% BMI 24.41 kg/m? Body mass index is 24.41 kg/m?. General: NAD, AAOx3 Extremities: ? Left Lower Extremity: ?Dressing c/d/i ?SILT S/S/SP/DP/T ?Motor intact DF/PF/EHL ?BCR toes ?Compartments soft, compressible. Tolerates passive stretch of digits ? DATA: Component Value Range AND Units Status Performing Lab WBC 9.65 3.98 - 10.04 thou/cmm Final [facility] RBC 3.32 (L) 3.93 - 5.22 mil/cmm Final [facility] HGB 9.9 (L) 11.2 - 15.7 g/dL Final [facility] Hematocrit 30.1 (L) 34.1 - 44.9 % Final [facility] MCV 90.7 79.4 - 94.8 fl Final [facility] MCH 29.8 25.6 - 32.2 pg Final [facility] MCHC 32.9 31.6 - 34.8 % Final [facility] RDW 14.6 (H) 11.7 - 14.4 % Final [facility] RDW-SD 48.1 (H) 36.4 - 46.3 fl Final [facility] Platelet Count 384 (H) 182 - 369 thou/cmm Final [facility] MPV 9.7 9.4 - 12.3 fl Final [facility] Component Value Range AND Units Status Performing Lab Sodium 143 136 - 145 mEq/L Final [facility] Potassium 3.3 (L) 3.5 - 5.1 mEq/L Final [facility] Chloride 107 98 - 107 mEq/L Final [facility] CO2 31 21 - 32 mEq/L Final [facility] Glucose 55 (L) 70 - 99 mg/dL Final [facility] BUN 11 7 - 18 mg/dL Final [facility] Creatinine 0.75 0.51 - 0.95 mg/dL Final [facility] Calcium 8.3 (L) 8.5 - 10.1 mg/dL Final [facility] Anion Gap 8 8 - 16 Final [facility] IMAGING: no new images SIGNATURE: Brandon Ball MD PAGER: [phone] DATE of SERVICE: 12/29/2017 TIME of SERVICE: 5:54 AM HEMOGRAM Collected: 12/29/2017 Status: F Source: [facility] 3:45 AM HEALTH SYSTEM REPOSITORY TYPE CODE TESTS RESULT OUT OF REFERENCE UNITS RANGE LAB WBC(LOINC) 3.98-10.04 thou/cmm WBC 9.65 LAB RBC(LOINC) 3.93-5.22 mil/cmm Low RBC 3.32 LAB HGB(LOINC) 11.2-15.7 g/dL Low Hgb 9.9 LAB HCT(LOINC) 34.1-44.9 % Low Hct 30.1 LAB MCV(LOINC) 79.4-94.8 fl MCV 90.7 LAB MCH(LOINC) 25.6-32.2 pg MCH 29.8 LAB MCHC(LOINC) 31.6-34.8 % MCHC 32.9 LAB RDW(LOINC) 11.7-14.4 % High RDW 14.6 LAB RDWSD(LOINC 36.4-46.3 fl ) High RDW SD 48.1 LAB PLT(LOINC) 182-369 thou/cmm High Platelet 384 LAB MPV(LOINC) 9.4-12.3 fl MPV 9.7 Performed By: #### CBC1 #### [place] [address] BASIC PANEL Collected: 12/29/2017 Status: F Source: [facility] 3:45 AM HEALTH SYSTEM REPOSITORY TYPE CODE TESTS RESULT OUT OF REFERENCE UNITS RANGE LAB NA(LOINC) 136-145 mEq/L Sodium Blood 143 LAB K(LOINC) 3.5-5.1 mEq/L Low Potassium Blood 3.3 LAB CL(LOINC) 98-107 mEq/L Chloride Blood 107 LAB CO2(LOINC) 21-32 mEq/L CO2 Blood 31 LAB GLU(LOINC) 70-99 mg/dL Low Glucose Blood 55 LAB BUN(LOINC) 7-18 mg/dL BUN Blood 11 LAB CREA(LOINC 0.51-0.95 mg/dL ) Creatinine Blood 0.75 LAB CA(LOINC) 8.5-10.1 mg/dL Low Calcium Blood 8.3 LAB ANGAP(LOIN 8-16 C) Anion Gap 8 Performed By: #### P8 #### [facility] [address] [place], [place] [address] VANCOMYCIN,TROUGH Collected: Status: F Source: [facility] 12/29/2017 3:45 AM [facility] REPOSITORY TYPE CODE TESTS RESULT OUT OF RANGE REFERENCE UNITS LAB VANCT(LOINC 10.0-20.0 mg/L ) High alert 21.8 Vancomycin,T rough Performed By: #### VANCT #### [facility] [address] [place], [place] [address] CONSULT PROG Observed: 12/28/2017 Status: COMPLETED Source: [place] 3:20 PM CLINIC OTHER CAMPUS REPOSITORY HNO ID: [id number] Author: Avi Camp Service: Infectious Disease Author Type: Physician Type: Consult Progress Note Filed: 12/28/2017 3:26 PM Note Text: INFECTIOUS DISEASE CONSULT PROGRESS NOTE SERVICE DATE: 12/28/2017 SERVICE TIME: 3:20 PM Subjective INTERVAL HISTORY / PERTINENT Review of Systems Constitutional: Negative for chills and fever. Musculoskeletal: Pain left foot postop. Current Facility-Administered Medications: lactated ringers infusion 125 mL/hr INTRAVENOUS CONTINUOUS morphine 2-4 mg injection 2-4 mg INTRAVENOUS q 2 H PRN 0.9% NaCl 10 mL 10 mL INTRAVENOUS q 12 H 0.9% NaCl 20 mL 20 mL INTRAVENOUS PRN enoxaparin 40 mg injection (LOVENOX) 40 mg SUBCUTANEOUS DAILY ondansetron 4 mg tab(s) (ZOFRAN) 4 mg ORAL q 6 H PRN Or ondansetron (PF) 4 mg injection (ZOFRAN) 4 mg INTRAVENOUS q 6 H PRN docusate sodium 100 mg cap(s) (COLACE) 100 mg ORAL BID HYDROcodone 5 mg - acetaminophen 325 mg tablet (NORCO) 1-2 tablet ORAL q 4 H PRN acetaminophen 325 mg tab(s) (TYLENOL) 325 mg ORAL q [address] 40 mg tab(s) (PROTONIX) 40 mg ORAL DAILY (6 AM) lisinopril 30 mg tab(s) (ZESTRIL,PRINIVIL) 30 mg ORAL DAILY buPROPion XL 150 mg tab(s) (WELLBUTRIN XL) 150 mg ORAL DAILY sertraline 100 mg tab(s) (ZOLOFT) 100 mg ORAL DAILY fluocinonide 0.05 % (LIDEX) TOPICAL DAILY insulin lispro pen (rapid acting) (HumaLOG KWIKPEN) SUBCUTANEOUS w MEALS aztreonam iv piggyback 2 g in dextrose (iso-osmotic) 50 mL (AZACTAM) 2 g INTRAVENOUS q 8 H metroNIDAZOLE 500 mg PREMIX piggyback (FLAGYL) 500 mg INTRAVENOUS q 8 H insulin lispro 5 Units pen (rapid acting) (HumaLOG KWIKPEN) 5 Units SUBCUTANEOUS w MEALS atorvastatin 40 mg tab(s) (LIPITOR) 40 mg ORAL AT BEDTIME diphenhydrAMINE 25 mg (BENADRYL) 25 mg ORAL q 6 H PRN amLODIPine 10 mg tab(s) (NORVASC) 10 mg ORAL DAILY insulin glargine 14 Units pen (long acting) (LANTUS SOLOSTAR, BASAGLAR KWIKPEN) 14 Units SUBCUTANEOUS AT BEDTIME dextrose 40 % 15 g 15 g ORAL PRN Or glucagon 1 mg injection (GLUCAGEN) 1 mg INTRAMUSCULAR PRN Or dextrose 50% in water 25 mL syringe 12.5 g INTRAVENOUS PRN Objective PHYSICAL EXAM: Vital Signs: BP 148/66 Pulse 78 Temp 36.7 ?C (98.1 ?F) (Oral) Resp 18 Ht 152.4 cm (5') Wt 56.7 kg (125 lb) SpO2 100% BMI 24.41 kg/m? Physical Exam Abdominal: Soft. There is no tenderness. Musculoskeletal: Postop dressing in place. top dyeing machine tender. Skin: Picc site RUE ok. Vitals reviewed. DATA: Diagnostic Tests Reviewed for Today's Visit: Most recent labs Micro: Operative cult- Staph epidermidis; anaerobes still pending. C diff positive Recent Labs 12/28/17 0655 12/27/17 0543 12/26/17 0414 WBC 14.22* 7.65 10.48* HB 11.0* 10.5* 11.8 HCT 33.5* 31.7* 36.6 PLT 432* 367 426* CREAT 0.84 0.80 0.78 Vancomycin,Random (mg/L) Date Value 12/28/2017 21.0 Impression/Recommendations Principal Problem: Diabetic ulcer of toe of left foot associated with type 2 diabetes mellitus, limited to breakdown of skin (HCC) POA: Yes Assessment AND Plan: With osteomyelitis. Staph epidermidis in cult. Vanc dose changed to 750 mg q24h, repeat trough before 12/29 dose. Continue metronidazole until anaerobe cult reported. DC aztreonam. C difficile diarrhea- start po vanco SIGNATURE: Avi Camp MD PATIENT NAME: Davina Green DATE: December 28, 2017 TIME: 3:20 PM PAGER/CONTACT #: [phone] THERAPY NT Observed: 12/28/2017 Status: COMPLETED Source: [place] 2:55 PM CLINIC OTHER CAMPUS REPOSITORY HNO ID: [id number] Author: Luh Vargas Service: Physical Therapy Author Type: Resident Care Associate Type: Therapy (PT/OT/Speech/Resp) Filed: 12/28/2017 3:00 PM Note Text: Attestation signed by Mirian Griffith at 12/28/2017 4:52 PM I reviewed and agree with the documentation corresponding to this therapy visit. SIGNATURE: Mirian Griffith PT DATE: December 28, 2017 TIME: 4:52 PM Physical Therapy Treatment SERVICE DATE: 12/28/2017 SERVICE TIME: 1440 to 1450 ROOM: [place] [id number] Recommended Discharge Disposition: Home PT Recommended Discharge Disposition Comments: Pt mobilizing safely with assistive device on stairs and level surfaces. Anticipated Discharge Needs: Physical Assist at Home;Equipment Physical Assist at Home for: Cleaning;Laundry;Shopping;Transportation Recommended Discharge Equipment: Wheeled Walker PT Recommendations to Nursing: With assist of 1 person;Ambulate with device;To bathroom (assist with the wound vac) Device: Wheeled Walker PT 6 Clicks Score: 21 Precautions/Activity Restrictions: Weight Bearing Restrictions;Lines/Tubes/Drains (wound vac.) Precaution/Activity Restriction Comments: heel weight bearing Isolation Type: None Extremity With Weight Bearing Restricted: Left Lower Extremity Left Lower Extremity Weight Bearing Status: Heel Weight Bearing ASSESSMENT : Limited treatment d/t patient only agreeing to bed exercises d/t increased pain and having diarrhea Progressing toward goals. Patient Disposition at Start of Session: Supine in Bed;Call Thomas in Reach Patient Disposition at End of Session: Supine in Bed;Call Thomas in Reach Tolerance Limited By Pain;Fatigue Physical Therapy Problem List: Pain;Decreased Strength;Functional Mobility Impairment Patient /Caregiver Goals: Walk Goals for Plan of Care: Able to perform HEP with: Verbal Cues Only Transfer sit to/from stand with: Supervision Ambulate with: Supervision Distance: 100 Device: Wheeled Walker Ambulate up and down steps with: Stand By Assistance Number of steps: 5 Device: Rail;Crutch(es) (goal met) Progress Toward Goals: Progressing as expected Rehab Potential: Excellent PLAN: Treatment Frequency (times per week): 5 (2-5) Current admission Treatment Interventions: Education;Strengthening;Functional Mobility Training Plan of Care developed with: Patient TREATMENT INTERVENTIONS: Therapy Diagnosis: Reduced mobility-other;General symptoms and signs-other Interventions Provided: Therapeutic Exercise (25636) Therapeutic Exercise (26932) Treatment Minutes: 10 1 unit Skilled Intervention(s): Instruction in therapeutic exercise for ROM and strengthening Patient completed general strengthening exercises in supine, at edge of bed or chair (ankle pump, quad set, gluteal set, hip abd/add, straight leg raise, short arc quad, hip adductor squeeze) x 10 reps B lower extremity, with min assist. Total Timed Code Treatment Minutes: 10 Total Treatment Time (minutes): 10 SUBJECTIVE: Current Hospital Course: Chart reviewed and no significant medical updates relevant to therapy were noted Reason for Physical Therapy Consult : post acute placement Patient Report: Pt was in bed and agreeable to exercise in bed. C/o pain 02/05 ( RN aware ) , having diarrhea today . Home Environment Patient Lives With: ( and son. Was at SNF prior to admit) Assistance Available: 24 Hour (son ) Entry To Home: Stairs;With Rail Number Of Stairs Into Home: 5 Number Of Stairs To Bed/Bath: 10 Stairs to Bed/Bath with: Unilateral Rail Tub/Shower Type: tub shower Equipment Owned: Crutch(es) Prior Functional Level: Within Functional Limits (pt mostly indep with ADLs at facility prior to arrival) OBJECTIVE: CURRENT FUNCTIONAL STATUS: Current Functional Mobility Assist Level Additional Information Rolling Supine to Sit Sit to Supine Scooting Sit to Stand Stand to Sit Bed to Chair Toilet/Commode Gait Stairs Curb Step Car Transfer Please see discipline specific clinical documentation flowsheet for complete details for this therapy evaluation/treatment. SIGNATURE: Luh Vargas PTA PATIENT NAME: Davina Green DATE: December 28, 2017 TIME: 2:55 PM PROGRESS Observed: 12/28/2017 Status: COMPLETED Source: [place] 2:18 PM CLINIC OTHER CAMPUS REPOSITORY HNO ID: [id number] Author: Casey Flood MD Service: Hospital Medicine Author Type: Resident Type: Progress Notes Filed: 12/28/2017 2:19 PM Note Text: Attestation signed by Live Fabian at 12/28/2017 2:46 PM Resting in bed. c/o many loose stools last PM and early this morning. She reports having 25 and was up all night. Sleepy now but states she has not had a bowel movement for several hours (last at about 11AM). She denies any abdominal pain, hematochezia. NAD. Afebrile 148/66, 78, 18 Lungs: Clear CV: RRR Abd: Soft, no masses, tenderness. Benign exam Ext: No edema. Left foot wrapped, wound vac present. Labs: Reviewed JOANA results noted. R = 0.9; L=0.74 I saw and evaluated the patient. Discussed with the resident and agree with resident's findings and plan as documented in the resident's note. Plan: C. Diff pending. Continue present antibiotics. Live Fabian MD SERVICE DATE: 12/28/2017 SERVICE TIME: 2:18 PM HOSPITAL MEDICINE PROGRESS NOTE SUBJECTIVE Interval HPI: Pt c/o 20 episodes of loose stools overnight. Pt denied abdominal pain, nausea and vomiting. No fever Pt states left foot pain is improved significantly. OBJECTIVE BP 148/66 Pulse 78 Temp (Src) 98.1 (Oral) Resp 18 Ht 5' 0 (1.52m) Wt 125 lb (56.7kg) SpO2 100% BMI 24.41 kg/(m2). Physical Exam General appearance: Well appearing, alert, in no acute distress, well-hydrated, well nourished. and Thin Head: normocephalic, atraumatic Neck: Supple, no adenopathy; thyroid symmetric, normal size, no bruits Back: Normal exam, no pain to palpation Lungs: Lungs clear to auscultation. No wheezing, rhonchi, rales Heart: RRR without murmur, gallop, or rubs. ?No ectopy Abdomen: ?Abdomen soft, non-tender. Bowel sounds normal. No masses, organomegaly Extremities: Positive findings: left foot 5th digit amputation, erythematous, swelling decreased, pain decreased Diabetic Foot: ?Deformities: left 5th digit amputation Lines, Drains, and Airways Line Central Line Single Lumen 12/26/17 1421 Peripherally Inserted (PICC) Right Arm 4.0 Omani 1 day Medications: Reviewed Diagnostic tests reviewed: Recent Labs 12/28/17 0655 12/27/17 0543 12/26/17 0414 12/08/17 1457 WBC 14.22* 7.65 10.48* < > 8.52 RBC 3.71* 3.53* 4.03 < > 4.22 HB 11.0* 10.5* 11.8 < > 12.6 HCT 33.5* 31.7* 36.6 < > 37.4 PLT 432* 367 426* < > 464* MCV 90.3 89.8 90.8 < > 88.6 MCH 29.6 29.7 29.3 < > 29.9 MPV 9.6 9.6 9.5 < > 9.4 RDW 14.6* 14.4 14.1 < > -- ABSNEUT -- -- -- -- 5.61 NEUTP -- -- -- -- 65.9 LYMPHP -- -- -- -- 21.7 MONOP -- -- -- -- 6.1 EODINP -- -- -- -- 5.4 < > = values in this interval not displayed. Recent Labs 12/28/17 0655 12/27/17 0543 12/26/17 0414 12/21/17 1045 GLUC 85 95 74 < > 174* NA 141 140 140 < > 135* K 3.5 3.7 3.7 < > 4.3 CHLOR 106 108* 107 < > 105 CO2 28 26 25 < > 22 CREAT 0.84 0.80 0.78 < > 0.96* BUN 11 11 11 < > 31* ANION 11 10 12 < > 12 CA 8.3* 8.3* 8.4* < > 8.6 TPROT -- -- -- -- 7.1 ALB -- -- -- -- 2.6* TBILI -- -- -- -- 0.2 ALKPHOS -- -- -- -- 100 AST -- -- -- -- 14 ALT -- -- -- -- 14 < > = values in this interval not displayed. Most recent labs CARE COORDINATION: No Patient Care Coordination Note on file. ASSESSMENT AND PLAN Assessment AND Plan, all Hosp Problems Active Hospital Problems as of 12/28/2017 Noted - Resolved Hospital * (Principal)Diabetic ulcer of toe of left foot associated with type 2 diabetes mellitus, limited to breakdown of skin ([facility]) 10/17/2017 - Present Current Assessment AND Plan Diabetic Foot Ulcer with Surgical Site Infection s/p left 5th digit amputation -appreciate ID recs: Vanc, Aztreonam and Flagyl .recommend IV at home for 4-6 weeks based on inflammatory markers. Pt agrees with IV therapy. PICC line placed. Final antibiotic rec's not yet determined. -appreciate Ortho recs: MRI foot shows focal fluid collection near the amputation site and erosive changes in the bone at the amputation site. ?- IANDD 12/25 done - Debridement done, 5th metatarsal, left foot -Secondary closure, surgical wound, left foot done yesterday -Vanco trough level was 21 today. Morning dose was held as per ID -wound culture sent , growing few organisms preliminary results -blood culture showed no growth -PT/OT -wound care -percocet prn q6hr -Vascular surgery recs Cont management per primary team - Wound vac per podiatry - Vanc and Flagyl per ID - ABIs Rt leg 0.9 ,left side 0.74 left leg has moderate arterial disease. - Unlikely to need vascular intervention at this time, will follow up vascular surgeon recs Diabetes (HCC) 12/23/2017 - Present Current Assessment AND Plan -A1C 14.5% from October 2017 -lantus -SSI -monitor bg -diabetic education Essential hypertension, benign 06/22/2012 - Present Current Assessment AND Plan -continue home lisinopril and home amlodipine -follow BP's Hyperlipidemia with target LDL less than 100 03/18/2014 - Present Current Assessment AND Plan -atorvastatin 40mg Tobacco abuse 12/23/2017 - Present Current Assessment AND Plan -smoking cessation encouraged History of cerebrovascular accident (CVA) with residual deficit 04/20/2015 - Present Current Assessment AND Plan CVA and Carotid Stenosis -hold ASA and plavix for now Diarrhea of presumed infectious origin 12/28/2017 - Present Current Assessment AND Plan Assessment: PLAN: --20 episodes of loose stools overnight -WBC count went up 14.22.yesterday was 7.65 -C.diff colitis suspected -C.diff testing ordered -c.diff precautions Medication and Non-Pharmacologic VTE Prophylaxis/Anticoagulants Anticoagulant AND Antiplatelet Medications Start Dose Route Frequency Ordered Stop 12/26/17 0900 enoxaparin 40 mg injection (LOVENOX) (Medical At Risk ) 40 mg SUBCUTANEOUS DAILY 12/25/17 1803 -- 12/27/17 223 pneumatic compression stockings (mt,oh) 12/25/171814 vte pharmacologic prophylaxis contraindicated (mt,oh) 12/25/171814 pneumatic compression stockings (mt,oh) 12/21/172144 pneumatic compression stockings (mt,ak) 12/21/172144 activity - mobilize patient (mt,ak) VTE Prophylaxis: VTE prophylaxis appropriate Plan of care discussed with: Patient SIGNATURE: Casey Flood MD PATIENT NAME: Davina Green DATE: December 28, 2017 TIME: 2:18 PM PAGER/CONTACT #: [phone] PROGRESS Observed: 12/28/2017 Status: COMPLETED Source: [place] 9:10 AM CLINIC OTHER CAMPUS REPOSITORY HNO ID: [id number] Author: Nicholas (Daniel) MD Gonzalo Service: Vascular Surgery Author Type: Resident Type: Progress Notes Filed: 12/28/2017 4:12 PM Note Text: Vascular Surgery Progress Note SERVICE DATE: 12/28/2017 Subjective SUBJECTIVE: Pt complains of 12 bouts of diarrhea last night. She has no other complaints. Denies N/V/CP/SOB Diet: DIET CARBOHYDRATE CONTROLLED Objective OBJECTIVE: Vitals: Temp (24hrs), Av.9 ?C (98.5 ?F), Min:36.7 ?C (98.1 ?F), Max:37.2 ?C (99 ?F) BP 148/66 Pulse 78 Temp 36.7 ?C (98.1 ?F) (Oral) Resp 18 Ht 152.4 cm (5') Wt 56.7 kg (125 lb) SpO2 100% BMI 24.41 kg/m? O2 Therapy: Room Air IANDO: Date 12/27/17699 - 12/28/17 0659 12/28/17 07 - 12/29/17 0659 Shift 7785-9326 8206-8151 5495-5995 24 Hour Total 6980-3055 0991-6107 7460-6742 24 Hour Total I N T A K E IV 825 432 7662 LR 100 500 600 OR Crystalloid intake (mL) 200 200 Flagyl IV 100 100 200 Aztreonam (Azactam) IV 50 50 100 Other 300 300 OR 300 300 Shift Total 784 731 7484 O U T P U T Urine 826 873 8287 Void (ml) 080 957 9898 Drains 0 0 Negative Pressure: Output (mL) ([REMOVED] Negative Pressure Wound Therapy 12/25/17 Foot - Left 12/27/172049) 0 0 # of BMs Number of BMs 2 x 2 x Blood 25 25 Estimated Blood loss 25 25 Shift Total 858 547 4216 Weight (kg) 56.7 56.7 56.7 56.7 56.7 56.7 56.7 56.7 MEDICATIONS Current Facility-Administered Medications: lactated ringers infusion 125 mL/hr INTRAVENOUS CONTINUOUS morphine 2-4 mg injection 2-4 mg INTRAVENOUS q 2 H PRN 0.9% NaCl 10 mL 10 mL INTRAVENOUS q 12 H 0.9% NaCl 20 mL 20 mL INTRAVENOUS PRN enoxaparin 40 mg injection (LOVENOX) 40 mg SUBCUTANEOUS DAILY ondansetron 4 mg tab(s) (ZOFRAN) 4 mg ORAL q 6 H PRN Or ondansetron (PF) 4 mg injection (ZOFRAN) 4 mg INTRAVENOUS q 6 H PRN docusate sodium 100 mg cap(s) (COLACE) 100 mg ORAL BID HYDROcodone 5 mg - acetaminophen 325 mg tablet (NORCO) 1-2 tablet ORAL q 4 H PRN acetaminophen 325 mg tab(s) (TYLENOL) 325 mg ORAL q [address] 40 mg tab(s) (PROTONIX) 40 mg ORAL DAILY (6 AM) lisinopril 30 mg tab(s) (ZESTRIL,PRINIVIL) 30 mg ORAL DAILY vancomycin 750 mg in dextrose (iso-osmotic) 150 mL 0.75 g INTRAVENOUS q 12 HR buPROPion XL 150 mg tab(s) (WELLBUTRIN XL) 150 mg ORAL DAILY sertraline 100 mg tab(s) (ZOLOFT) 100 mg ORAL DAILY fluocinonide 0.05 % (LIDEX) TOPICAL DAILY insulin lispro pen (rapid acting) (HumaLOG KWIKPEN) SUBCUTANEOUS w MEALS aztreonam iv piggyback 2 g in dextrose (iso-osmotic) 50 mL (AZACTAM) 2 g INTRAVENOUS q 8 H metroNIDAZOLE 500 mg PREMIX piggyback (FLAGYL) 500 mg INTRAVENOUS q 8 H insulin lispro 5 Units pen (rapid acting) (HumaLOG KWIKPEN) 5 Units SUBCUTANEOUS w MEALS atorvastatin 40 mg tab(s) (LIPITOR) 40 mg ORAL AT BEDTIME diphenhydrAMINE 25 mg (BENADRYL) 25 mg ORAL q 6 H PRN amLODIPine 10 mg tab(s) (NORVASC) 10 mg ORAL DAILY insulin glargine 14 Units pen (long acting) (LANTUS SOLOSTAR, BASAGLAR KWIKPEN) 14 Units SUBCUTANEOUS AT BEDTIME dextrose 40 % 15 g 15 g ORAL PRN Or glucagon 1 mg injection (GLUCAGEN) 1 mg INTRAMUSCULAR PRN Or dextrose 50% in water 25 mL syringe 12.5 g INTRAVENOUS PRN Labs: Recent Labs 12/28/17 0655 12/27/17 0543 NA 141 140 K 3.5 3.7 CHLOR 106 108* CO2 28 26 BUN 11 11 CREAT 0.84 0.80 GLUC 85 95 ANION 11 10 CA 8.3* 8.3* WBC 14.22* 7.65 HB 11.0* 10.5* HCT 33.5* 31.7* PLT 432* 367 Exam: GENERAL: No distress NEURO: AANDOx3, no focal deficits HEENT: normocephalic, atraumatic LUNGS: Unlabored breathing O2 Therapy: Room Air EXTREMITIES: [place], No deformities, No edema. Wound vac discontinued. Moves toes, feet are warm, dopplerable pulses on R foot, did not exam L foot. SKIN: Skin color, texture, turgor normal, No rashes or lesions ASSESSMENT AND PLAN: Active Hospital Problems Diagnosis Date Noted - Diabetic ulcer of toe of left foot associated with type 2 diabetes mellitus, limited to breakdown of skin ([facility]) 10/17/2017 Priority: A Assessment AND Plan Note: Diabetic Foot Ulcer with Surgical Site Infection s/p left 5th digit amputation -appreciate ID recs: Vanc, Aztreonam and Flagyl .recommend IV at home for 4-6 weeks based on inflammatory markers. Pt agrees with IV therapy. PICC line placed. Final antibiotic rec's not yet determined. Await podiatry input re: need for closure. - caresource eligible for home infusion pharmacy AT[facility] at 100%- -appreciate Ortho recs: MRI foot shows focal fluid collection near the amputation site and erosive changes in the bone at the amputation site. ?- IANDD 12/25 done - secondary closure by ortho today -wound culture sent ,awaiting results -blood culture showed no growth - PICC line placement done -PT/OT -wound care -percocet prn q6hr -Vascular surgery recs Cont management per primary team - Wound vac per podiatry - Vanc and Flagyl per ID - ABIs ordered, pending results - Unlikely to need vascular intervention at this time, will follow up ABIs - Diabetes ([facility]) 12/23/2017 Priority: B Assessment AND Plan Note: -A1C 14.5% from October 2017 -lantus -SSI -monitor bg -diabetic education - Essential hypertension, benign 06/22/2012 Priority: D Assessment AND Plan Note: -continue home lisinopril and home amlodipine -increased lisinopril to 20 mg -hold HCTZ -follow BP's - Hyperlipidemia with target LDL less than 100 03/18/2014 Priority: F Assessment AND Plan Note: -atorvastatin 40mg - Tobacco abuse 12/23/2017 Priority: G Assessment AND Plan Note: -smoking cessation encouraged - History of cerebrovascular accident (CVA) with residual deficit 04/20/2015 Assessment AND Plan Note: CVA and Carotid Stenosis -hold ASA and plavix for now 62 year old female s/p LLE Angioplasty 11/14/17, L 5th toe amputation 12/11/17, now with abscess at L amp site debrided on 12/25/17 ? - Management per primary team - wound vac removed - Vanc and Flagyl per ID Assessment and plan discussed with attending: Dr. Landin SIGNATURE: Nicholas Sánchez MD PATIENT NAME: Davina Green DATE: December 28, 2017 TIME: 9:11 AM Pager: [phone] HEMOGRAM Collected: 12/28/2017 Status: F Source: [facility] 6:55 AM HEALTH SYSTEM REPOSITORY TYPE CODE TESTS RESULT OUT OF REFERENCE UNITS RANGE LAB WBC(LOINC) 3.98-10.04 thou/cmm High WBC 14.22 LAB RBC(LOINC) 3.93-5.22 mil/cmm Low RBC 3.71 LAB HGB(LOINC) 11.2-15.7 g/dL Low Hgb 11.0 LAB HCT(LOINC) 34.1-44.9 % Low Hct 33.5 LAB MCV(LOINC) 79.4-94.8 fl MCV 90.3 LAB MCH(LOINC) 25.6-32.2 pg MCH 29.6 LAB MCHC(LOINC) 31.6-34.8 % MCHC 32.8 LAB RDW(LOINC) 11.7-14.4 % High RDW 14.6 LAB RDWSD(LOINC 36.4-46.3 fl ) High RDW SD 47.6 LAB PLT(LOINC) 182-369 thou/cmm High Platelet 432 LAB MPV(LOINC) 9.4-12.3 fl MPV 9.6 Performed By: #### CBC1 #### [place] [address] BASIC PANEL Collected: 12/28/2017 Status: F Source: [facility] 6:55 AM HEALTH SYSTEM REPOSITORY TYPE CODE TESTS RESULT OUT OF REFERENCE UNITS RANGE LAB NA(LOINC) 136-145 mEq/L Sodium Blood 141 LAB K(LOINC) 3.5-5.1 mEq/L Potassium Blood 3.5 LAB CL(LOINC) 98-107 mEq/L Chloride Blood 106 LAB CO2(LOINC) 21-32 mEq/L CO2 Blood 28 LAB GLU(LOINC) 70-99 mg/dL Glucose Blood 85 LAB BUN(LOINC) 7-18 mg/dL BUN Blood 11 LAB CREA(LOINC 0.51-0.95 mg/dL ) Creatinine Blood 0.84 LAB CA(LOINC) 8.5-10.1 mg/dL Low Calcium Blood 8.3 LAB ANGAP(LOIN 8-16 C) Anion Gap 11 Performed By: #### P8 #### [place] [address] VANCOMYCIN,RANDOM Collected: Status: F Source: [place] 12/28/2017 6:55 AM [facility] REPOSITORY TYPE CODE TESTS RESULT OUT OF RANGE REFERENCE UNITS LAB VANCR(LOINC mg/L ) 21.0 Vancomycin,R andom Result Comment: Trough 10.0-20.0 mg/L Peak 18.0-40.0 mg/L Performed By: #### VANCR #### [place] [address] PROGRESS Observed: 12/28/2017 Status: COMPLETED Source: [place] 6:01 AM CLINIC OTHER CAMPUS REPOSITORY O ID: [id number] Author: Brandon Ball Service: Orthopaedic Surgery Author Type: Resident Type: Progress Notes Filed: 12/28/2017 6:34 AM Note Text: Orthopaedic INPATIENT PROGRESS NOTE 62 YO F POD1 s/p closure L surgical incisional wound ? 1. Regular diet 2. Pain control 3. WBAT through heel LLE 5. DVT ppx: per primary 6. PPI ppx: Protonix 7. Abx per ID: Vancomycin, aztreonam, flagyl; PICC placed 12/26/17 8. Appreciate Vascular Surgery recs 9. Follow up intra-operative deep wound and bone cultures: Staphylococcus species: non-aureus 10. PT/OT 11. Medical management per [place] 12. Follow up c. Diff results 13. Dressing change POD2 INTERVAL HPI: No acute events overnight. Pain controlled. Patient complaining of multiple episodes of diarrhea overnight. Sample taken for c. Diff testing. MEDICATIONS: Current hospital medications: lactated ringers infusion 125 mL/hr INTRAVENOUS CONTINUOUS morphine 2-4 mg injection 2-4 mg INTRAVENOUS q 2 H PRN 0.9% NaCl 10 mL 10 mL INTRAVENOUS q 12 H 0.9% NaCl 20 mL 20 mL INTRAVENOUS PRN enoxaparin 40 mg injection (LOVENOX) 40 mg SUBCUTANEOUS DAILY ondansetron 4 mg tab(s) (ZOFRAN) 4 mg ORAL q 6 H PRN ondansetron (PF) 4 mg injection (ZOFRAN) 4 mg INTRAVENOUS q 6 H PRN docusate sodium 100 mg cap(s) (COLACE) 100 mg ORAL BID HYDROcodone 5 mg - acetaminophen 325 mg tablet (NORCO) 1-2 tablet ORAL q 4 H PRN acetaminophen 325 mg tab(s) (TYLENOL) 325 mg ORAL q [address] 40 mg tab(s) (PROTONIX) 40 mg ORAL DAILY (6 AM) lisinopril 30 mg tab(s) (ZESTRIL,PRINIVIL) 30 mg ORAL DAILY vancomycin 750 mg in dextrose (iso-osmotic) 150 mL 0.75 g INTRAVENOUS q 12 HR buPROPion XL 150 mg tab(s) (WELLBUTRIN XL) 150 mg ORAL DAILY sertraline 100 mg tab(s) (ZOLOFT) 100 mg ORAL DAILY fluocinonide 0.05 % (LIDEX) TOPICAL DAILY insulin lispro pen (rapid acting) (HumaLOG KWIKPEN) SUBCUTANEOUS w MEALS aztreonam iv piggyback 2 g in dextrose (iso-osmotic) 50 mL (AZACTAM) 2 g INTRAVENOUS q 8 H metroNIDAZOLE 500 mg PREMIX piggyback (FLAGYL) 500 mg INTRAVENOUS q 8 H insulin lispro 5 Units pen (rapid acting) (HumaLOG KWIKPEN) 5 Units SUBCUTANEOUS w MEALS atorvastatin 40 mg tab(s) (LIPITOR) 40 mg ORAL AT BEDTIME diphenhydrAMINE 25 mg (BENADRYL) 25 mg ORAL q 6 H PRN amLODIPine 10 mg tab(s) (NORVASC) 10 mg ORAL DAILY insulin glargine 14 Units pen (long acting) (LANTUS SOLOSTAR, BASAGLAR KWIKPEN) 14 Units SUBCUTANEOUS AT BEDTIME dextrose 40 % 15 g 15 g ORAL PRN glucagon 1 mg injection (GLUCAGEN) 1 mg INTRAMUSCULAR PRN dextrose 50% in water 25 mL syringe 12.5 g INTRAVENOUS PRN PHYSICAL EXAM: BP 155/74 Pulse 85 Temp 37.2 ?C (99 ?F) Resp 16 Ht 152.4 cm (5') Wt 56.7 kg (125 lb) SpO2 100% BMI 24.41 kg/m? Body mass index is 24.41 kg/m?. General: NAD, AAOx3 Extremities: ? Left Lower Extremity: ?Dressing c/d/i ?SILT S/S/SP/DP/T ?Motor intact DF/PF/EHL ?BCR toes ?Compartments soft, compressible. Tolerates passive stretch of digits DATA: No new labs IMAGING: JOANA: L ankle: 0.51, R ankle: 0.87 SIGNATURE: Brandon Ball MD PAGER: [phone] DATE of SERVICE: 12/28/2017 TIME of SERVICE: 6:01 AM C. Observed: 12/28/2017 Status: F Source: [facility] DIFFICILE BY PCR 5:45 AM HEALTH SYSTEM REPOSITORY Test performed at [facility] POSITIVE for Toxigenic C. difficile Presumptive Negative for 027-NAP1-BI (reported for epidemiological purposes) Performed By: #### CDIFX #### [facility] [address] [place] [address] PROGRESS Observed: 12/27/2017 Status: COMPLETED Source: [place] 8:47 PM CLINIC OTHER CAMPUS REPOSITORY HNO ID: [id number] Author: Taurus Bernard Service: Orthopaedic Surgery Author Type: Resident Type: Progress Notes Filed: 12/27/2017 8:49 PM Note Text: .Post-op plan POD#0 s/p IANDD L 5th metatarsal, primary closure - WBAT LLE through the heel - DVT Prophylaxis per primary - IV Abx per ID until discharge, home on oral antibiotics - Appreciate vascular recommendations - Dressing change on POD#2 Taurus Bernard MD Orthopaedic Surgery, PGY-4 Please page [phone] from 5p-6a and on weekends for any issues. Pager: [phone] BRIEF OP NOT Observed: 12/27/2017 Status: COMPLETED Source: [place] 8:46 PM [facility] REPOSITORY HNO ID: [id number] Author: Arnold Garrett Service: Podiatry Author Type: Physician Type: Brief Op Note Filed: 12/27/2017 8:48 PM Note Text: BRIEF OPERATIVE / PROCEDURE NOTE LOG ID: [id number] Surgery/Procedure Date: 12/27/2017 Incision/Procedure Start Time: 8:28 PM Incision Close/Procedure End Time: 8:40 PM Surgeon(s)/Proceduralist(s) and Metallurgical Analyst(s): Surgeon(s) and Role: * Arnold Garrett - Primary * Taurus (Juan J Bernard - Resident - Assisting No Additional Staff Procedure(s): 1. Debridement osteomyelitis, 5th metatarsal, left foot 2. Secondary closure, surgical wound, left foot Anesthesia: General Findings: Per dictation Estimated Blood Loss: <25 mls Specimens: None Complications: None Pre-Op/Pre-Procedure Diagnosis: 1. Surgical wound, left foot 2. Diabetes with PAD 3. Osteomyelitis, 5th metatarsal, left foot Post-Op/Post-Procedure Diagnosis: 1. Surgical wound, left foot 2. Diabetes with PAD 3. Osteomyelitis, 5th metatarsal, left foot SIGNATURE: Arnold Garrett DPM, JOSE DANIELFAS PATIENT NAME: Davina Green DATE: December 27, 2017 TIME: 8:46 PM PAGER/CONTACT #: CONSULT PROG Observed: 12/27/2017 Status: COMPLETED Source: [place] 8:37 PM [facility] REPOSITORY HNO ID: [id number] Author: Avi Camp Service: Infectious Disease Author Type: Physician Type: Consult Progress Note Filed: 12/27/2017 8:39 PM Note Text: December 27, 2017 8:37 PM Infectious Disease Temp 36.7. Going for additional surgery. Foot and bone cult- skin arthur, Staph not aureus; anaerobes still pending Rec: Continue current antibiotics. Repeat vanc trough before 8/2 dose. Avi Camp MD ANES PREOP Observed: 12/27/2017 Status: COMPLETED Source: [place] 7:46 PM CL[facility] OTHER CAMPUS REPOSITORY O ID: [id number] Author: Be Cedeño Service: Anesthesiology Author Type: Physician Type: Anesthesia PreOp Filed: 12/27/2017 7:48 PM Note Text: ANESTHESIOLOGY DAY OF SURGERY NOTE SERVICE DATE: 12/27/2017 SERVICE TIME: 7:46 PM : 1955 Procedure(s) (LRB): SECONDARY CLOSURE OF SURGICAL WOUND OR DEHISCENCE,EXTENSIVE OR COMPLICATED (Left) DEBRIDEMENT BONE W/ EPIDERMIS/DERMIS/ SUBCUTANEOUS TISSUE/ MUSCLE/FASCIA FIRST 20 SQ CM OR LESS (Left) Surgeon(s): Arnold Condon (Res) Marco Antonio Estimated body mass index is 24.41 kg/m? as calculated from the following: Height as of this encounter: 152.4 cm (5'). Weight as of this encounter: 56.7 kg (125 lb). Most recent hematocrit and potassium results: HCT 31.7 12/27/2017 Potassium 3.7 12/27/2017 ANES DOS/PREOP NOTE: Vitals: 12/27/17 0153 12/27/17 0525 12/27/17 0809 12/27/17 1500 BP: 147/60 154/79 147/75 162/79 Pulse: 82 76 79 87 Resp: Temp: 36.7 ?C (98.1 ?F) 36.7 ?C (98.1 ?F) 36.7 ?C (98.1 ?F) TempSrc: Oral Tympanic Tympanic SpO2: 100% 99% 100% Weight: Height: ACTIVE PROBLEM LIST Stroke/Cerebrovascular Accident (Hcc) Lumbago-Sciatica Due to Displacement of Lumbar Intervertebral Disc Ddd (Degenerative Disc Disease), Lumbar Cannabis Abuse Lichen Planus Lumbar Facet Arthropathy ([facility]) Essential Hypertension, Benign Nasal Obstruction Myofascial Pain Diabetic Nephropathy With Proteinuria ([facility]) Hyperlipidemia With Target Ldl Less Than 100 History of Cerebrovascular Accident (Cva) With Residual Deficit Urge Incontinence of Urine Spastic Neurogenic Bladder Moderate Single Current Episode of Major Depressive Disorder ([facility]) Type 2 diabetes mellitus with microalbuminuria, without long- term current use of insulin ([facility]) Diabetic Ulcer of Toe of Left Foot Associated With Type 2 Diabetes Mellitus, Limited to Breakdown of Skin ([facility]) Lumbar Radiculopathy Wound Abscess Depression Diabetes ([facility]) Tobacco Abuse Foot Abscess, Left Penicillin Allergy PAST MEDICAL HISTORY Diagnosis Date - Anxiety - Benign hypertension 08/07/2015 - Cannabis abuse 02/23/2010 - Carotid artery disorder ([facility]) Right sided - Carotid stenosis 03/11/2010 - Cervical cancer ([facility]) - CVA (cerebral infarction) 11/2009 L hemiparesis and decreased coordination - DDD (degenerative disc disease), lumbar 02/23/2010 - Diabetic nephropathy with proteinuria ([facility]) 03/18/2014 - Diabetic ulcer of toe of left foot associated with type 2 diabetes mellitus, limited to breakdown of skin ([facility]) 10/17/2017 - Environmental allergies - Essential hypertension, benign 06/22/2012 - 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 ([facility]) - Hyperlipidemia - Lichen planus 11/09/2010 - Lumbago-sciatica due to displacement of lumbar intervertebral disc 02/23/2010 - Lumbar radiculopathy 10/17/2017 left sciatica - PVD (peripheral vascular disease) ([facility]) 2017 - Spastic neurogenic bladder 05/14/2015 - Tobacco abuse - Type 2 diabetes mellitus with microalbuminuria, without long-term current use of insulin ([facility]) 05/08/2017 PAST SURGICAL HISTORY Procedure Laterality Date - AMPUTATION METATARSAL+TOE,SINGLE Left 12/11/2017 partial 5th toe [facility] 04/11/2016 Colonoscopy - EGD W/O OR W/BRUSH/WASH 04/11/2016 EGD - IR VASCULAR ACCESS TEAM PICC INSERTION RADIO 12/26/2017 - LUMBAR OR CAUDAL EPIDURAL STEROID INJECTION 02/21/2011 - PAST SURGICAL HISTORY OF Exploratory surgery for cervical ca FAMILY HISTORY Problem Relation Age of Onset - Coronary Artery Disease Father - Stroke Mother - Diabetes Maternal Grandmother Social History: Social History Substance Use Topics - Smoking status: Current Every Day Smoker Packs/day: 1.00 Types: Cigarettes - Smokeless tobacco: Never Used Comment: less then a pack. Has smoked since she was 15. - Alcohol use No No current facility-administered medications on file prior to encounter. Current Outpatient Prescriptions on File Prior to Encounter: dicyclomine (BENTYL) 20 mg tablet Take 1 tablet by mouth three times daily before meals. mometasone (ELOCON) 0.1 % cream Apply 1 application to affected area once daily. sertraline (ZOLOFT) 100 mg tablet Take 1 tablet by mouth once daily. insulin glargine (BASAGLAR KWIKPEN U-100 INSULIN) 100 unit/mL (3 mL) inpn Inject 14 Units subcutaneously daily at bedtime. insulin lispro (HUMALOG KWIKPEN INSULIN) 100 unit/mL inpn Inject 5 Units subcutaneously w MEALS. acetaminophen (TYLENOL ARTHRITIS PAIN) 650 mg CR tablet Take 2 tablets by mouth twice daily as needed for Pain. naproxen (NAPROSYN) 500 mg tablet Take 1 tablet by mouth twice daily as needed for Pain. Take with food. omeprazole (PRILOSEC) 20 mg capsule Take 1 capsule by mouth daily before breakfast. 1/2 hr before meal. diphenhydrAMINE (BENADRYL) 50 mg capsule Take 1 capsule by mouth every 6 hours as needed for Itching/Rash. buPROPion XL (WELLBUTRIN XL) 150 mg 24 hr tablet Take 1 tablet by mouth once daily. lisinopril-hydrochlorothiazide (PRINZIDE,ZESTORETIC) 10-12.5 mg per tablet Take 1 tablet by mouth every morning. amLODIPine (NORVASC) 10 mg tablet Take 1 tablet by mouth once daily. busPIRone (BUSPAR) 10 mg tablet Take 1 tablet by mouth three times daily. Insulin [place], Disposable, (PEN NEEDLES) 31 gauge x 1/4 ndle Use one needle with each insulin dose. 4/day alcohol swabs (ALCOHOL WIPES) padm Apply 1 application to affected area four times daily. blood sugar diagnostic (FREESTYLE LITE STRIPS) test strip Test blood sugar(s) 4 times daily. Dx: Type 2 DM - Uncontrolled E11.65 Insulin: Yes lancets (FREESTYLE LANCETS) 28 gauge misc Test blood sugar(s) 4 times daily. Dx: Type 2 DM - Uncontrolled E11.65 Insulin: Yes Simethicone (GAS RELIEF) 125 mg chewable tablet Take 1 tablet by mouth every 6 hours as needed. SUMAtriptan (IMITREX) 50 mg tablet 50mg by mouth as needed for migraine headache; may repeat every 2 hrs as needed for migraine(max 4/day and 9/mo) Current Facility-Administered Medications: dextrose 5% in LR infusion (D5-LR) 100 mL/hr INTRAVENOUS CONTINUOUS Brandon (Res) Quinn Last Rate: 100 mL/hr at 12/27/17 0831 100 mL/hr at 12/27/17 0831 0.9% NaCl 10 mL 10 mL INTRAVENOUS q 12 H Caitlyn Hidalgo 10 mL at 12/26/17 2043 0.9% NaCl 20 mL 20 mL INTRAVENOUS PRN Caitlyn Hidalgo enoxaparin 40 mg injection (LOVENOX) 40 mg SUBCUTANEOUS DAILY Brandon (Res) Quinn 40 mg at 12/26/17 0830 ondansetron 4 mg tab(s) (ZOFRAN) 4 mg ORAL q 6 H PRN Brandon (Res) Quinn Or ondansetron (PF) 4 mg injection (ZOFRAN) 4 mg INTRAVENOUS q 6 H PRN Brandon (Res) Quinn 4 mg at 12/25/17 1922 docusate sodium 100 mg cap(s) (COLACE) 100 mg ORAL BID Brandon (Res) Quinn 100 mg at 12/27/17 0837 morphine 2 mg injection 2 mg INTRAVENOUS q 2 H PRN Brandon (Res) Quinn HYDROcodone 5 mg - acetaminophen 325 mg tablet (NORCO) 1-2 tablet ORAL q 4 H PRN Brandon (Res) Quinn 2 tablet at 12/27/17 1447 acetaminophen 325 mg tab(s) (TYLENOL) 325 mg ORAL q 4 H PRN Brandon (Res) Quinn pantoprazole DR 40 mg tab(s) (PROTONIX) 40 mg ORAL DAILY (6 AM) Brandon (Res) Quinn 40 mg at 12/27/17 0541 lisinopril 30 mg tab(s) (ZESTRIL,PRINIVIL) 30 mg ORAL DAILY Emma (Res) [place] 30 mg at 12/27/17 0832 vancomycin 750 mg in dextrose (iso-osmotic) 150 mL 0.75 g INTRAVENOUS q 12 HR Caitlyn Hidalgo 750 mg at 12/27/17 0831 buPROPion XL 150 mg tab(s) (WELLBUTRIN XL) 150 mg ORAL DAILY Casey (Res) MD Remigio 150 mg at 12/27/17 0832 sertraline 100 mg tab(s) (ZOLOFT) 100 mg ORAL DAILY Casey (Res) MD Remigio 100 mg at 12/27/17 0832 fluocinonide 0.05 % (LIDEX) TOPICAL DAILY Casey (Res) MD Remigio insulin lispro pen (rapid acting) (HumaLOG KWIKPEN) SUBCUTANEOUS w MEALS Quin (Res) [place] 1 Units at 12/26/17 1256 aztreonam iv piggyback 2 g in dextrose (iso-osmotic) 50 mL (AZACTAM) 2 g INTRAVENOUS q 8 H Caitlyn Hidalgo 2 g at 12/27/17 1457 metroNIDAZOLE 500 mg PREMIX piggyback (FLAGYL) 500 mg INTRAVENOUS q 8 H Caitlyn Hidalgo 500 mg at 12/27/17 1624 insulin lispro 5 Units pen (rapid acting) (HumaLOG KWIKPEN) 5 Units SUBCUTANEOUS w MEALS Emma (Res) [place] 5 Units at 12/26/17 1710 atorvastatin 40 mg tab(s) (LIPITOR) 40 mg ORAL AT BEDTIME Emma (Res) [place] 40 mg at 12/26/17 2042 diphenhydrAMINE 25 mg (BENADRYL) 25 mg ORAL q 6 H PRN Emma (Res) [place] 25 mg at 12/25/17 1903 amLODIPine 10 mg tab(s) (NORVASC) 10 mg ORAL DAILY Quin (Res) [place] 10 mg at 12/27/17 0832 insulin glargine 14 Units pen (long acting) (LANTUS SOLOSTAR, BASAGLAR KWIKPEN) 14 Units SUBCUTANEOUS AT BEDTIME Quin (Res) [place] 14 Units at 12/26/17 2114 dextrose 40 % 15 g 15 g ORAL PRN Quin (Res) [place] Or glucagon 1 mg injection (GLUCAGEN) 1 mg INTRAMUSCULAR PRN Quin (Res) [place] Or dextrose 50% in water 25 mL syringe 12.5 g INTRAVENOUS PRN Quin (Res) [place] Allergies: ALLERGIES Allergen Reactions - Lipitor [Atorvastat* Other: See Comments fatigue - Penicillins Hives, Swelling Updated 12/22/[address] Chaparrita Hidalgo - Pravachol [Pravasta* Intolerance Fatigue, loss of appetite. - Prozac [Fluoxetine * Mental Status Change sleepiness DOS EXAM: Adequate NPO status: Yes Anesthetic risks, benefits, alternatives, personnel and consent discussed: Yes Patient agrees to proceed: Yes Previous Anesthesia: No history of adverse event. Airway Assessment: MP 3; Neck ROM: Full ROM without neurologic symptoms; Airway Evaluation: Small Mouth Opening Symptoms of Sleep Apnea: Hypertension and Age over 50 (62 year old) Dentition: Poor dentition Multiple missing teeth Chipped, loose and/or missing Additional Physical Exam: Lungs: Patient health status unchanged since recent history and physical. See history and physical for exam findings. Cardiac: Patient health status unchanged since recent history and physical. See history and physical for exam findings. Additional Pertinent Findings: N/A Blood Products: Not anticipated for this procedure. Anesthetic Plan: General, Standard ASA Monitors Pain Management Plan: Parenteral or Oral ASA Class: 3 Other Medical Problems: None Chronic Beta Saurabh medication administered within 24 hours: N/A I have interviewed and examined the patient. I have reviewed the medical record and/or the pre-anesthesia evaluation, pertinent labs, and test results. Significant changes in the patient's condition since the History and Physical, not otherwise documented in primary service progress notes: No This contains updated information obtained within 48 hours of Surgery/Procedure. SIGNATURE: Be Cedeño MD PATIENT NAME: Davina Green DATE: December 27, 2017 TIME: 7:46 PM CSN: [id number] PROGRESS Observed: 12/27/2017 Status: COMPLETED Source: [place] 3:[address] [facility] OTHER [place] REPOSITORY [facility] ID: [id number] Author: Casey Flood MD Service: Hospital Medicine Author Type: Resident Type: Progress Notes Filed: 12/27/2017 4:01 PM Note Text: Attestation signed by Live Fabian at 12/27/2017 6:34 PM No change, no new complaints. She expresses frustration about still being in hospital. NAD. Afebrile. 147/75, 79, 18 Lungs: Clear CV: RRR Ext: No change, wound vac in place Labs: WBC=7.65 Appreciate ID, ortho, vascular input I saw and evaluated the patient. Discussed with the resident and agree with resident's findings and plan as documented in the resident's note. Plan: ABIs pending Live Fabian MD Hospital Medicine Service Progress Note Date of Service: December 27, 2017 Hospital Day: Day 6 Chief Complaint: Left Foot Swelling and Pain s/p 5th digit amputation ? 24 Hour Course/ Overnight Events: Pt denies any acute complaint. I AND D done secondary closure scheduled today. ? Subjective/ Review of Systems: 62 year old female with the PMH of diabetes, HTN, CVA presented with left foot pain due to left toe abcess since the amputation. 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 who had concerns for ongoing infection and wanted the abscess to be drained Medications: Current Facility-Administered Medications: dextrose 5% in LR infusion (D5-LR) 100 mL/hr INTRAVENOUS CONTINUOUS 0.9% NaCl 10 mL 10 mL INTRAVENOUS q 12 H 0.9% NaCl 20 mL 20 mL INTRAVENOUS PRN enoxaparin 40 mg injection (LOVENOX) 40 mg SUBCUTANEOUS DAILY ondansetron 4 mg tab(s) (ZOFRAN) 4 mg ORAL q 6 H PRN Or ondansetron (PF) 4 mg injection (ZOFRAN) 4 mg INTRAVENOUS q 6 H PRN docusate sodium 100 mg cap(s) (COLACE) 100 mg ORAL BID morphine 2 mg injection 2 mg INTRAVENOUS q 2 H PRN HYDROcodone 5 mg - acetaminophen 325 mg tablet (NORCO) 1-2 tablet ORAL q 4 H PRN acetaminophen 325 mg tab(s) (TYLENOL) 325 mg ORAL q [address] 40 mg tab(s) (PROTONIX) 40 mg ORAL DAILY (6 AM) lisinopril 30 mg tab(s) (ZESTRIL,PRINIVIL) 30 mg ORAL DAILY vancomycin 750 mg in dextrose (iso-osmotic) 150 mL 0.75 g INTRAVENOUS q 12 HR buPROPion XL 150 mg tab(s) (WELLBUTRIN XL) 150 mg ORAL DAILY sertraline 100 mg tab(s) (ZOLOFT) 100 mg ORAL DAILY fluocinonide 0.05 % (LIDEX) TOPICAL DAILY insulin lispro pen (rapid acting) (HumaLOG KWIKPEN) SUBCUTANEOUS w MEALS aztreonam iv piggyback 2 g in dextrose (iso-osmotic) 50 mL (AZACTAM) 2 g INTRAVENOUS q 8 H metroNIDAZOLE 500 mg PREMIX piggyback (FLAGYL) 500 mg INTRAVENOUS q 8 H insulin lispro 5 Units pen (rapid acting) (HumaLOG KWIKPEN) 5 Units SUBCUTANEOUS w MEALS atorvastatin 40 mg tab(s) (LIPITOR) 40 mg ORAL AT BEDTIME diphenhydrAMINE 25 mg (BENADRYL) 25 mg ORAL q 6 H PRN amLODIPine 10 mg tab(s) (NORVASC) 10 mg ORAL DAILY insulin glargine 14 Units pen (long acting) (LANTUS SOLOSTAR, BASAGLAR KWIKPEN) 14 Units SUBCUTANEOUS AT BEDTIME dextrose 40 % 15 g 15 g ORAL PRN Or glucagon 1 mg injection (GLUCAGEN) 1 mg INTRAMUSCULAR PRN Or dextrose 50% in water 25 mL syringe 12.5 g INTRAVENOUS PRN Physical Exam: BP 162/79 Pulse 87 Temp 36.7 ?C (98.1 ?F) (Tympanic) Resp 18 Ht 152.4 cm (5') Wt 56.7 kg (125 lb) SpO2 100% BMI 24.41 kg/m? Intake/Output Summary (Last 24 hours) at 12/27/17 1601 Last data filed at 12/27/17 1100 Gross per 24 hour Intake 1750 ml Output 2550 ml Net -800 ml General appearance: Well appearing, alert, in no acute distress, well-hydrated, well nourished. and Thin Head: normocephalic, atraumatic Neck: Supple, no adenopathy; thyroid symmetric, normal size, no bruits Back: Normal exam, no pain to palpation Lungs: Lungs clear to auscultation. No wheezing, rhonchi, rales Heart: RRR without murmur, gallop, or rubs. ?No ectopy Abdomen: ?Abdomen soft, non-tender. Bowel sounds normal. No masses, organomegaly Extremities: Positive findings: left foot 5th digit amputation, erythematous, swelling decreased, pain decreased Diabetic Foot: ?Deformities: left 5th digit amputation Assessment and Plan Assessment AND Plan, all Hosp Problems Active Hospital Problems as of 12/27/2017 Noted - Resolved Hospital Diabetic ulcer of toe of left foot associated with type 2 diabetes mellitus, limited to breakdown of skin ([facility]) 10/17/2017 - Present Current Assessment AND Plan Diabetic Foot Ulcer with Surgical Site Infection s/p left 5th digit amputation -appreciate ID recs: Vanc, Aztreonam and Flagyl .recommend IV at home for 4-6 weeks based on inflammatory markers. Pt agrees with IV therapy. PICC line placed. Final antibiotic rec's not yet determined. Await podiatry input re: need for closure. - caresource eligible for home infusion pharmacy [facility] at 100%- -appreciate Ortho recs: MRI foot shows focal fluid collection near the amputation site and erosive changes in the bone at the amputation site. ?- IANDD 12/25 done - secondary closure by ortho today -wound culture sent ,awaiting results -blood culture showed no growth - PICC line placement done -PT/OT -wound care -percocet prn q6hr -Vascular surgery recs Cont management per primary team - Wound vac per podiatry - Vanc and Flagyl per ID - ABIs ordered, pending results - Unlikely to need vascular intervention at this time, will follow up ABIs Diabetes ([facility]) 12/23/2017 - Present Current Assessment AND Plan -A1C 14.5% from October 2017 -lantus -SSI -monitor bg -diabetic education Essential hypertension, benign 06/22/2012 - Present Current Assessment AND Plan -continue home lisinopril and home amlodipine -increased lisinopril to 20 mg -hold HCTZ -follow BP's Hyperlipidemia with target LDL less than 100 03/18/2014 - Present Current Assessment AND Plan -atorvastatin 40mg Tobacco abuse 12/23/2017 - Present Current Assessment AND Plan -smoking cessation encouraged History of cerebrovascular accident (CVA) with residual deficit 04/20/2015 - Present Current Assessment AND Plan CVA and Carotid Stenosis -hold ASA and plavix for now Labs: WBC (thou/cmm) Date Value 12/27/2017 7.65 RBC (mil/cmm) Date Value 12/27/2017 3.53 (L) Hemoglobin (g/dL) Date Value 12/08/2017 12.6 HGB (g/dL) Date Value 12/27/2017 10.5 (L) Hematocrit (%) Date Value 12/27/2017 31.7 (L) MCV (fl) Date Value 12/27/2017 89.8 MCH (pg) Date Value 12/27/2017 29.7 MCHC (%) Date Value 12/27/2017 33.1 RDW-CV (%) Date Value 12/08/2017 14.1 Platelet Count (thou/cmm) Date Value 12/27/2017 367 MPV (fl) Date Value 12/27/2017 9.6 Glucose (mg/dL) Date Value 12/27/2017 95 BUN (mg/dL) Date Value 12/27/2017 11 Creatinine (mg/dL) Date Value 12/27/2017 0.80 Sodium (mEq/L) Date Value 12/27/2017 140 Potassium (mEq/L) Date Value 12/27/2017 3.7 Chloride (mEq/L) Date Value 12/27/2017 108 (H) CO2 (mEq/L) Date Value 12/27/2017 26 Protein, Total (g/dL) Date Value 12/21/2017 7.1 Albumin (g/dL) Date Value 12/21/2017 2.6 (L) Calcium (mg/dL) Date Value 12/27/2017 8.3 (L) Alkaline Phosphatase (U/L) Date Value 12/21/2017 100 Bilirubin, Total (mg/dL) Date Value 12/21/2017 0.2 AST (U/L) Date Value 12/21/2017 14 ALT (U/L) Date Value 12/21/2017 14 Hep C Antibody IA (no units) Date Value 11/04/2016 Negative URINLAYSIS pH Date Value Ref Range Status 09/24/2016 7.355 7.320 - 7.420 Final Specific [place], Ur Date Value Ref Range Status 12/22/2017 1.021 1.005 - 1.030 Final Glucose, Urine Date Value Ref Range Status 12/22/2017 NEGATIVE Negative mg/dL Final Bilirubin, Urine Date Value Ref Range Status 12/22/2017 NEGATIVE Negative Final Ketones, Urine Date Value Ref Range Status 12/22/2017 NEGATIVE Negative mg/dL Final Protein, Urine Date Value Ref Range Status 12/22/2017 300 (A) Negative mg/dL Final Urobilinogen, Urine Date Value Ref Range Status 12/22/2017 0.2 0.0 - 1.0 EU/dL Final WBC, Urine Date Value Ref Range Status 12/22/2017 0.4 0.0 - 5.0 /hpf Final Lines/ Drains/ Airways: Lines, Drains, and Airways Line Central Line Single Lumen 12/26/17 1421 Peripherally Inserted (PICC) Right Arm 4.0 [place] 1 day DVT PPx: Lovenox 40mg Sub Q Daily Anticoagulant AND Antiplatelet Medications Start Dose Route Frequency Ordered Stop 12/26/17 0900 enoxaparin 40 mg injection (LOVENOX) (Medical At Risk ) 40 mg SUBCUTANEOUS DAILY 12/25/17 1803 -- Disposition: Anticipate discharge to: Long-Term Facility [facility] when medically stable. Will require insurance pre-cert. ? Code Status: Code Status: FULL CODE SIGNATURE: Casey Flood MD PATIENT NAME: Davina Green DATE: December 27, 2017 TIME: 3:56 PM PAGER/CONTACT #: [phone] PROGRESS Observed: 12/27/2017 Status: COMPLETED Source: [place] 3:53 PM CLINIC OTHER CAMPUS REPOSITORY [facility] ID: [id number] Author: Velma Landin Service: Vascular Surgery Author Type: Physician Type: Progress Notes Filed: 01/06/2018 4:58 AM Note Text: Vascular Surgery Progress Note SERVICE DATE: 12/27/2017 Subjective SUBJECTIVE: NAEON. Denies pain. Denies N/V/CP/SOB Diet: DIET NPO Objective OBJECTIVE: Vitals: Temp (24hrs), Av.7 ?C (98.1 ?F), Min:36.7 ?C (98.1 ?F), Max:36.8 ?C (98.2 ?F) BP 162/79 Pulse 87 Temp 36.7 ?C (98.1 ?F) (Tympanic) Resp 18 Ht 152.4 cm (5') Wt 56.7 kg (125 lb) SpO2 100% BMI 24.41 kg/m? O2 Therapy: Room Air IANDO: Date 12/26/17 1500 - 12/27/17 0659 12/27/17 0700 - 12/28/17 0659 Shift 8503-1005 6339-0858 24 Hour Total 2474-6234 8103-7981 3213-5505 24 Hour Total I N T A K E PO 400 400 PO 400 400 IV 1500 1150 2750 Vancomycin IV 300 300 LR 1000 1000 2000 Flagyl IV 100 100 300 Aztreonam (Azactam) IV 100 50 150 Shift Total 1500 1550 3150 O U T P U T Urine 450 1400 2550 700 700 Void (ml) 450 1400 2550 700 700 Drains 0 0 0 0 Negative Pressure: Output (mL) (Negative Pressure Wound Therapy 12/25/17 Foot - Left) 0 0 0 0 Shift Total 450 1400 2550 700 700 Weight (kg) 56.7 56.7 56.7 56.7 56.7 56.7 56.7 MEDICATIONS Current Facility-Administered Medications: dextrose 5% in LR infusion (D5-LR) 100 mL/hr INTRAVENOUS CONTINUOUS 0.9% NaCl 10 mL 10 mL INTRAVENOUS q 12 H 0.9% NaCl 20 mL 20 mL INTRAVENOUS PRN enoxaparin 40 mg injection (LOVENOX) 40 mg SUBCUTANEOUS DAILY ondansetron 4 mg tab(s) (ZOFRAN) 4 mg ORAL q 6 H PRN Or ondansetron (PF) 4 mg injection (ZOFRAN) 4 mg INTRAVENOUS q 6 H PRN docusate sodium 100 mg cap(s) (COLACE) 100 mg ORAL BID morphine 2 mg injection 2 mg INTRAVENOUS q 2 H PRN HYDROcodone 5 mg - acetaminophen 325 mg tablet (NORCO) 1-2 tablet ORAL q 4 H PRN acetaminophen 325 mg tab(s) (TYLENOL) 325 mg ORAL q [address] 40 mg tab(s) (PROTONIX) 40 mg ORAL DAILY (6 AM) lisinopril 30 mg tab(s) (ZESTRIL,PRINIVIL) 30 mg ORAL DAILY vancomycin 750 mg in dextrose (iso-osmotic) 150 mL 0.75 g INTRAVENOUS q 12 HR buPROPion XL 150 mg tab(s) (WELLBUTRIN XL) 150 mg ORAL DAILY sertraline 100 mg tab(s) (ZOLOFT) 100 mg ORAL DAILY fluocinonide 0.05 % (LIDEX) TOPICAL DAILY insulin lispro pen (rapid acting) (HumaLOG KWIKPEN) SUBCUTANEOUS w MEALS aztreonam iv piggyback 2 g in dextrose (iso-osmotic) 50 mL (AZACTAM) 2 g INTRAVENOUS q 8 H metroNIDAZOLE 500 mg PREMIX piggyback (FLAGYL) 500 mg INTRAVENOUS q 8 H insulin lispro 5 Units pen (rapid acting) (HumaLOG KWIKPEN) 5 Units SUBCUTANEOUS w MEALS atorvastatin 40 mg tab(s) (LIPITOR) 40 mg ORAL AT BEDTIME diphenhydrAMINE 25 mg (BENADRYL) 25 mg ORAL q 6 H PRN amLODIPine 10 mg tab(s) (NORVASC) 10 mg ORAL DAILY insulin glargine 14 Units pen (long acting) (LANTUS SOLOSTAR, BASAGLAR KWIKPEN) 14 Units SUBCUTANEOUS AT BEDTIME dextrose 40 % 15 g 15 g ORAL PRN Or glucagon 1 mg injection (GLUCAGEN) 1 mg INTRAMUSCULAR PRN Or dextrose 50% in water 25 mL syringe 12.5 g INTRAVENOUS PRN Labs: Recent Labs 12/27/17 0543 12/26/17 0414 NA 140 140 K 3.7 3.7 CHLOR 108* 107 CO2 26 25 BUN 11 11 CREAT 0.80 0.78 GLUC 95 74 ANION 10 12 CA 8.3* 8.4* WBC 7.65 10.48* HB 10.5* 11.8 HCT 31.7* 36.6 PLT 367 426* Exam: GENERAL: No distress, Alert NEURO: AANDOx3, no focal deficits HEENT: normocephalic, atraumatic LUNGS: Unlabored breathing O2 Therapy: Room Air CARDIAC: Regular rate and rhythm as above ABDOMEN: Soft, non-tender, non-distended EXTREMITIES: [place], + DP/PT, wound vac in place on wrapped left foot, feet warm to touch SKIN: Skin color, texture, turgor normal, No rashes or lesions JOANA RIGHT SIDE ? Resting right ankle brachial index: 0.87 ? Abnormal ankle brachial index at rest diagnostic of peripheral artery disease. ? Right ankle: Mild disease at rest. ? LEFT SIDE ? Resting left ankle brachial index: 0.51 ? Abnormal ankle brachial index at rest diagnostic of peripheral artery disease. ? Left ankle: Moderate disease at rest. ? Left small vessel disease versus vasoconstriction. The metatarsal and digital levels are essentially flat. ASSESSMENT AND PLAN: Active Hospital Problems Diagnosis Date Noted - Diabetic ulcer of toe of left foot associated with type 2 diabetes mellitus, limited to breakdown of skin ([facility]) 10/17/2017 Priority: A Assessment AND Plan Note: Diabetic Foot Ulcer with Surgical Site Infection s/p left 5th digit amputation -appreciate ID recs: Vanc, Aztreonam and Flagyl .recommend IV at home for 4-6 weeks based on inflammatory markers. Pt agrees with IV therapy. PICC line placed. Final antibiotic rec's not yet determined. Await podiatry input re: need for closure. - caresource eligible for home infusion pharmacy [facility] at 100%- -appreciate Ortho recs: MRI foot shows focal fluid collection near the amputation site and erosive changes in the bone at the amputation site. ?- IANDD 12/25 done - secondary closure by ortho today -wound culture sent ,awaiting results - PICC line placement done -PT/OT -wound care -percocet prn q6hr -Vascular surgery recs Cont management per primary team - Wound vac per podiatry - Vanc and Flagyl per ID - ABIs ordered, pending results - Unlikely to need vascular intervention at this time, will follow up ABIs - Diabetes ([facility]) 12/23/2017 Priority: B Assessment AND Plan Note: -A1C 14.5% from October 2017 -lantus -SSI -monitor bg -diabetic education - Essential hypertension, benign 06/22/2012 Priority: D Assessment AND Plan Note: -continue home lisinopril and home amlodipine -increased lisinopril to 20 mg -hold HCTZ -follow BP's - Hyperlipidemia with target LDL less than 100 03/18/2014 Priority: F Assessment AND Plan Note: -atorvastatin 40mg - Tobacco abuse 12/23/2017 Priority: G Assessment AND Plan Note: -smoking cessation encouraged - History of cerebrovascular accident (CVA) with residual deficit 04/20/2015 Assessment AND Plan Note: CVA and Carotid Stenosis -hold ASA and plavix for now 62 year old female s/p LLE Angioplasty 11/14/17, L 5th toe amputation 12/11/17, now with abscess at L amp site debrided on 12/25/17 ? - Management per primary team - Wound vac per podiatry - Vanc and Flagyl per ID - JOANA as above. L 0.51. SIGNATURE: Nicholas Sánchez MD PATIENT NAME: Davina Green DATE: December 27, 2017 TIME: 3:53 PM Pager: [phone] I saw and evaluated the patient. I reviewed the resident's note and agree, except that need to observe progression of healing or restudy if poor healing persists. ARTERIAL UP/LOW/REST/MANUEVER Observed: 12/27/2017 Status: F Source: [place] 10:15 AM [facility] REPOSITORY Performed at [facility] APPROVED BY: VELMA LANDIN MD EXAM TITLE: NEUROVASCULAR LABORATORY LOWER EXTREMITY ARTERIAL STUDY, RESTING DATE:12/27/2017 09:43 CLINICAL INDICATION/HISTORY: This is a 62-year-old inpatient from Room 4214 bed 1 with chief complaint of ulcer and gangrene. History is also positive for left fifth digit amputation 3 weeks ago. TECHNIQUE: Segmental pressures and waveforms of the lower extremities were performed at rest FINDINGS: JOANA on the right side is 0.9. JOANA on the left side is 0.74. Digital pressure on the right foot is 106 mmHg. Digital pressure of the left foot is 84 mmHg. Should be noted that the thigh index on the left side is 0.55 with a calf index of 0.64. Calf index on the right side is 0.85. Waveforms at the thigh, calf and ankle level are symmetric although slightly broadened the more distally waveform is followed. Waveform at the right digital level is good amplitude where it is at least moderately flattened on the left. IMPRESSION: Right leg has very mild disease at the ankle level with good digital pressures. The left leg has more moderate arterial disease at the ankle level that likely is related to the inflow disease noted karely t the thigh level on the left side. Left Inflow disease is likely iliofemoral or very proximal femoral. CASE MANAGEM Observed: 12/27/2017 Status: COMPLETED Source: [place] 10:[address] [facility] OTHER CAMPUS REPOSITORY HNO ID: [id number] Author: Brisa (Rn) INES Fierro Service: Care Management Author Type: Registered Nurse Type: Care Mgt Progress Note Filed: 12/27/2017 10:10 AM Note Text: CARE MANAGEMENT PROGRESS NOTE SERVICE DATE: 12/27/2017 SERVICE TIME: 10:07 AM LOS: 6 days Needs Prior to Discharge: To Be Determined Chart reviewed. Plan for I AND D Secondary closure today. Has wound vac and needs 4-6 wks IV ABX. Discharge plan is for patient to return to [facility] when stable. Will need precert. SIGNATURE: Brisa Fierro RN PATIENT NAME: Davina Green DATE: December 27, 2017 TIME: 10:07 AM PAGER/CONTACT #: [phone] PROGRESS Observed: 12/27/2017 Status: COMPLETED Source: [place] 6:38 AM CLINIC OTHER CAMPUS REPOSITORY HNO ID: [id number] Author: Brandon Ball Service: Orthopaedic Surgery Author Type: Resident Type: Progress Notes Filed: 12/27/2017 7:18 AM Note Text: Orthopaedic INPATIENT PROGRESS NOTE 62 YO F POD2 s/p IANDD L Foot ? 1. NPO/IVF 2. Pain control 3. WBAT through heel LLE 4. Maintain wound vac 5. DVT ppx: Lovenox 40mg Daily, SCDs 6. PPI ppx: Protonix 7. Abx per ID: Vancomycin, aztreonam, flagyl; PICC placed 12/26/17 8. Appreciate Vascular Surgery recs: follow up ABIs 9. Follow up intra-operative deep wound and bone cultures: Gram + cocci 10. PT/OT 11. Wound care on board 12. Medical management per Don 13. Plan for IANDD, secondary closure today 14. Discharge Planning: [facility], will require pre-cert INTERVAL HPI: No acute events overnight. Pain controlled. Denies fevers/chills. MEDICATIONS: Current hospital medications: 0.9% NaCl 10 mL 10 mL INTRAVENOUS q 12 H 0.9% NaCl 20 mL 20 mL INTRAVENOUS PRN enoxaparin 40 mg injection (LOVENOX) 40 mg SUBCUTANEOUS DAILY ondansetron 4 mg tab(s) (ZOFRAN) 4 mg ORAL q 6 H PRN ondansetron (PF) 4 mg injection (ZOFRAN) 4 mg INTRAVENOUS q 6 H PRN docusate sodium 100 mg cap(s) (COLACE) 100 mg ORAL BID lactated ringers infusion 100 mL/hr INTRAVENOUS CONTINUOUS morphine 2 mg injection 2 mg INTRAVENOUS q 2 H PRN HYDROcodone 5 mg - acetaminophen 325 mg tablet (NORCO) 1-2 tablet ORAL q 4 H PRN acetaminophen 325 mg tab(s) (TYLENOL) 325 mg ORAL q [address] 40 mg tab(s) (PROTONIX) 40 mg ORAL DAILY (6 AM) lisinopril 30 mg tab(s) (ZESTRIL,PRINIVIL) 30 mg ORAL DAILY vancomycin 750 mg in dextrose (iso-osmotic) 150 mL 0.75 g INTRAVENOUS q 12 HR buPROPion XL 150 mg tab(s) (WELLBUTRIN XL) 150 mg ORAL DAILY sertraline 100 mg tab(s) (ZOLOFT) 100 mg ORAL DAILY fluocinonide 0.05 % (LIDEX) TOPICAL DAILY insulin lispro pen (rapid acting) (HumaLOG KWIKPEN) SUBCUTANEOUS w MEALS aztreonam iv piggyback 2 g in dextrose (iso-osmotic) 50 mL (AZACTAM) 2 g INTRAVENOUS q 8 H metroNIDAZOLE 500 mg PREMIX piggyback (FLAGYL) 500 mg INTRAVENOUS q 8 H insulin lispro 5 Units pen (rapid acting) (HumaLOG KWIKPEN) 5 Units SUBCUTANEOUS w MEALS atorvastatin 40 mg tab(s) (LIPITOR) 40 mg ORAL AT BEDTIME diphenhydrAMINE 25 mg (BENADRYL) 25 mg ORAL q 6 H PRN amLODIPine 10 mg tab(s) (NORVASC) 10 mg ORAL DAILY insulin glargine 14 Units pen (long acting) (LANTUS SOLOSTAR, BASAGLAR KWIKPEN) 14 Units SUBCUTANEOUS AT BEDTIME dextrose 40 % 15 g 15 g ORAL PRN glucagon 1 mg injection (GLUCAGEN) 1 mg INTRAMUSCULAR PRN dextrose 50% in water 25 mL syringe 12.5 g INTRAVENOUS PRN PHYSICAL EXAM: BP 154/79 Pulse 76 Temp 36.7 ?C (98.1 ?F) (Oral) Resp 18 Ht 152.4 cm (5') Wt 56.7 kg (125 lb) SpO2 99% BMI 24.41 kg/m? Body mass index is 24.41 kg/m?. General: NAD, AAOx3 Extremities: ? Left Lower Extremity: ?Wound vac in place with good suction ?SILT S/S/SP/DP/T ?Motor intact DF/PF/EHL ?DP pulse palpable, foot warm with pulses ?Compartments soft, compressible. Tolerates passive stretch of digits DATA: Component Value Range AND Units Status Performing Lab Sodium 140 136 - 145 mEq/L Final [facility] Potassium 3.7 3.5 - 5.1 mEq/L Final [facility] Chloride 108 (H) 98 - 107 mEq/L Final [facility] CO2 26 21 - 32 mEq/L Final [facility] Glucose 95 70 - 99 mg/dL Final [facility] BUN 11 7 - 18 mg/dL Final [facility] Creatinine 0.80 0.51 - 0.95 mg/dL Final [facility] Calcium 8.3 (L) 8.5 - 10.1 mg/dL Final [facility] Anion Gap 10 8 - 16 Final [facility] WBC 7.65 3.98 - 10.04 thou/cmm Final [facility] RBC 3.53 (L) 3.93 - 5.22 mil/cmm Final [facility] HGB 10.5 (L) 11.2 - 15.7 g/dL Final [facility] Hematocrit 31.7 (L) 34.1 - 44.9 % Final [facility] MCV 89.8 79.4 - 94.8 fl Final [facility] MCH 29.7 25.6 - 32.2 pg Final [facility] MCHC 33.1 31.6 - 34.8 % Final [facility] RDW 14.4 11.7 - 14.4 % Final [facility] RDW-SD 46.7 (H) 36.4 - 46.3 fl Final [facility] Platelet Count 367 182 - 369 thou/cmm Final [facility] MPV 9.6 9.4 - 12.3 fl Final [facility] IMAGING: No new images SIGNATURE: Brandon Ball MD PAGER: [phone] DATE of SERVICE: 12/27/2017 TIME of SERVICE: 6:38 AM HEMOGRAM Collected: 12/27/2017 Status: F Source: [facility] 5:43 AM HEALTH SYSTEM REPOSITORY TYPE CODE TESTS RESULT OUT OF REFERENCE UNITS RANGE LAB WBC(LOINC) 3.98-10.04 thou/cmm WBC 7.65 LAB RBC(LOINC) 3.93-5.22 mil/cmm Low RBC 3.53 LAB HGB(LOINC) 11.2-15.7 g/dL Low Hgb 10.5 LAB HCT(LOINC) 34.1-44.9 % Low Hct 31.7 LAB MCV(LOINC) 79.4-94.8 fl MCV 89.8 LAB MCH(LOINC) 25.6-32.2 pg MCH 29.7 LAB MCHC(LOINC) 31.6-34.8 % MCHC 33.1 LAB RDW(LOINC) 11.7-14.4 % RDW 14.4 LAB RDWSD(LOINC 36.4-46.3 fl ) High RDW SD 46.7 LAB PLT(LOINC) 182-369 thou/cmm Platelet 367 LAB MPV(LOINC) 9.4-12.3 fl MPV 9.6 Performed By: #### CBC1 #### [place] [address] BASIC PANEL Collected: 12/27/2017 Status: F Source: [facility] 5:43 AM HEALTH SYSTEM REPOSITORY TYPE CODE TESTS RESULT OUT OF REFERENCE UNITS RANGE LAB NA(LOINC) 136-145 mEq/L Sodium Blood 140 LAB K(LOINC) 3.5-5.1 mEq/L Potassium Blood 3.7 LAB CL(LOINC) 98-107 mEq/L Chloride High Blood 108 LAB CO2(LOINC) 21-32 mEq/L CO2 Blood 26 LAB GLU(LOINC) 70-99 mg/dL Glucose Blood 95 LAB BUN(LOINC) 7-18 mg/dL BUN Blood 11 LAB CREA(LOINC 0.51-0.95 mg/dL ) Creatinine Blood 0.80 LAB CA(LOINC) 8.5-10.1 mg/dL Low Calcium Blood 8.3 LAB ANGAP(LOIN 8-16 C) Anion Gap 10 Performed By: #### P8 #### [place] [address] SURGICAL TISSUE EXAM Observed: 12/27/2017 Status: F Source: [facility] 12:00 AM HEALTH SYSTEM REPOSITORY Test performed at [place] [address] NAME: DAVINA GREEN REQUESTING: ARNOLD GARRETT D.P.M. FINAL DIAGNOSIS: DEBRIDEMENT OF LEFT FIFTH METATARSAL - FRAGMENTS OF REACTIVE AND DEVITALIZED BONE WITH STRIATED MUSCLE AND DENSE FIBROUS CONNECTIVE TISSUE CONSISTENT WITH TENDON. ORGANIZING HEMORRHAGE. NO INFLAMMATORY PROCESS IS IDENTIFIED. OPERATIVE PROCEDURE: Secondary closure of surgical wound or dehiscence, extensive or complicated CLINICAL INFORMATION: Postoperative wound abscess [T81.4XXA] GROSS DESCRIPTION: Left fifth metatarsal Received in formalin labeled left 5th metatarsal are multiple irregular segments of bone aggregating to 2.5 x 1.5 x 0.3 cm. Soft tissue is not present. A lesion is not seen. The bone is totally submitted in formalin in one cassette after a period of decalcification. ARH:sonia VEGA M.D. (Electronic signature on file) Signed out: 01/05/2018 17:07 PRINTED: 01/05/2018 Page 1 of 1 Performed By: #### SURG #### [place] [address] CASE MANAGEM Observed: 12/26/2017 Status: COMPLETED Source: [place] 4:00 PM [facility] REPOSITORY HNO ID: [id number] Author: Gina De La Cruz) INES Adorno Service: Care Management Author Type: Registered Nurse Type: Care Mgt Progress Note Filed: 12/26/2017 4:03 PM Note Text: CARE MANAGEMENT PROGRESS NOTE SERVICE DATE: 12/26/2017 SERVICE TIME: 4:00 PM LOS: 5 days Needs Prior to Discharge: To Be Determined Chart reviewed. POD #1 S/P debridement in OR. +Wound vac. PICC placed for 4-6 weeks IV Atbx. OR plan [facility] when medically stable. Will require insurance pre-cert. SIGNATURE: Gina Adorno RN PATIENT NAME: Davina Green DATE: December 26, 2017 TIME: 4:00 PM PAGER/CONTACT #: [phone] PROGRESS Observed: 12/26/2017 Status: COMPLETED Source: [place] 2:36 PM [facility] REPOSITORY HNO ID: [id number] Author: Casey Flood MD Service: Hospital Medicine Author Type: Resident Type: Progress Notes Filed: 12/26/2017 2:47 PM Note Text: Attestation signed by Live Fabian at 12/26/2017 5:28 PM s/p IANDD yesterday. Up eating lunch. No new complaints. Wound vac in place. NAD. Afebrile. VSS Lungs: Clear CV: RRR Abd: Soft without tenderness Labs: Noted. WBC=10.48 (up from 8.54). Blood glucose readings have been good I saw and evaluated the patient. Discussed with the resident and agree with resident's findings and plan as documented in the resident's note. PICC line inserted, 4-6 weeks IV antibiotics. Discharge planning/placement in progress. Live Fabian MD Hospital Medicine Service Progress Note Date of Service: December 26, 2017 Hospital Day: Day 5 Chief Complaint: Left Foot Swelling and Pain s/p 5th digit amputation 24 Hour Course/ Overnight Events: Pt denies any acute complaint. I AND D done last evening. Subjective/ Review of Systems: 62 year old female with the PMH of diabetes, HTN, CVA presented with left foot pain due to left toe abcess since the amputation. 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 who had concerns for ongoing infection and wanted the abscess to be drained Medications: Current Facility-Administered Medications: lidocaine 10 mg/mL (1 %) 10-20 mg injection (XYLOCAINE) 1- 2 mL INTRADERMAL ONCE 0.9% NaCl 10 mL 10 mL INTRAVENOUS q 12 H 0.9% NaCl 20 mL 20 mL INTRAVENOUS PRN enoxaparin 40 mg injection (LOVENOX) 40 mg SUBCUTANEOUS DAILY ondansetron 4 mg tab(s) (ZOFRAN) 4 mg ORAL q 6 H PRN Or ondansetron (PF) 4 mg injection (ZOFRAN) 4 mg INTRAVENOUS q 6 H PRN docusate sodium 100 mg cap(s) (COLACE) 100 mg ORAL BID lactated ringers infusion 100 mL/hr INTRAVENOUS CONTINUOUS morphine 2 mg injection 2 mg INTRAVENOUS q 2 H PRN HYDROcodone 5 mg - acetaminophen 325 mg tablet (NORCO) 1-2 tablet ORAL q 4 H PRN acetaminophen 325 mg tab(s) (TYLENOL) 325 mg ORAL q [address] 40 mg tab(s) (PROTONIX) 40 mg ORAL DAILY (6 AM) lisinopril 30 mg tab(s) (ZESTRIL,PRINIVIL) 30 mg ORAL DAILY vancomycin 750 mg in dextrose (iso-osmotic) 150 mL 0.75 g INTRAVENOUS q 12 HR buPROPion XL 150 mg tab(s) (WELLBUTRIN XL) 150 mg ORAL DAILY sertraline 100 mg tab(s) (ZOLOFT) 100 mg ORAL DAILY fluocinonide 0.05 % (LIDEX) TOPICAL DAILY insulin lispro pen (rapid acting) (HumaLOG KWIKPEN) SUBCUTANEOUS w MEALS aztreonam iv piggyback 2 g in dextrose (iso-osmotic) 50 mL (AZACTAM) 2 g INTRAVENOUS q 8 H metroNIDAZOLE 500 mg PREMIX piggyback (FLAGYL) 500 mg INTRAVENOUS q 8 H insulin lispro 5 Units pen (rapid acting) (HumaLOG KWIKPEN) 5 Units SUBCUTANEOUS w MEALS atorvastatin 40 mg tab(s) (LIPITOR) 40 mg ORAL AT BEDTIME diphenhydrAMINE 25 mg (BENADRYL) 25 mg ORAL q 6 H PRN amLODIPine 10 mg tab(s) (NORVASC) 10 mg ORAL DAILY insulin glargine 14 Units pen (long acting) (LANTUS SOLOSTAR, BASAGLAR KWIKPEN) 14 Units SUBCUTANEOUS AT BEDTIME dextrose 40 % 15 g 15 g ORAL PRN Or glucagon 1 mg injection (GLUCAGEN) 1 mg INTRAMUSCULAR PRN Or dextrose 50% in water 25 mL syringe 12.5 g INTRAVENOUS PRN Physical Exam: BP 159/62 Pulse 91 Temp 36.8 ?C (98.2 ?F) (Oral) Resp 18 Ht 152.4 cm (5') Wt 56.7 kg (125 lb) SpO2 98% BMI 24.41 kg/m? Intake/Output Summary (Last 24 hours) at 12/26/17 1447 Last data filed at 12/26/17 1200 Gross per 24 hour Intake 1425 ml Output 2100 ml Net -675 ml General appearance: Well appearing, alert, in no acute distress, well-hydrated, well nourished. and Thin Head: normocephalic, atraumatic Neck: Supple, no adenopathy; thyroid symmetric, normal size, no bruits Back: Normal exam, no pain to palpation Lungs: Lungs clear to auscultation. No wheezing, rhonchi, rales Heart: RRR without murmur, gallop, or rubs. ?No ectopy Abdomen: ?Abdomen soft, non-tender. Bowel sounds normal. No masses, organomegaly Extremities: Positive findings: left foot 5th digit amputation, erythematous, swelling decreased, pain decreased Diabetic Foot: ?Deformities: left 5th digit amputation Assessment and Plan Assessment AND Plan, all Hosp Problems Active Hospital Problems as of 12/26/2017 Noted - Resolved Hospital Diabetic ulcer of toe of left foot associated with type 2 diabetes mellitus, limited to breakdown of skin ([facility]) 10/17/2017 - Present Current Assessment AND Plan Diabetic Foot Ulcer with Surgical Site Infection s/p left 5th digit amputation -appreciate ID recs: Vanc, Aztreonam and Flagyl .recommend IV at home for 4-6 weeks based on inflammatory markers. Pt agrees with IV therapy. PICC line ordered. Final antibiotic rec's not yet determined. Await podiatry input re: need for closure. - caresource eligible for home infusion pharmacy ATB at 100%- -appreciate Ortho recs: MRI foot shows focal fluid collection near the amputation site and erosive changes in the bone at the amputation site. ?- IANDD 12/25 done yesterday -wound culture sent ,awaiting results - PICC line placement done -PT/OT -wound care -percocet prn q6hr -Vascular surgery recs Cont management per primary team - Wound vac per podiatry - Vanc and Flagyl per ID - ABIs ordered - Unlikely to need vascular intervention at this time, will follow up ABIs Diabetes ([facility]) 12/23/2017 - Present Current Assessment AND Plan -A1C 14.5% from October 2017 -lantus -SSI -monitor bg -diabetic education Essential hypertension, benign 06/22/2012 - Present Current Assessment AND Plan -continue home lisinopril and home amlodipine -increased lisinopril to 20 mg -hold HCTZ -follow BP's Hyperlipidemia with target LDL less than 100 03/18/2014 - Present Current Assessment AND Plan -atorvastatin 40mg Tobacco abuse 12/23/2017 - Present Current Assessment AND Plan -smoking cessation encouraged History of cerebrovascular accident (CVA) with residual deficit 04/20/2015 - Present Current Assessment AND Plan CVA and Carotid Stenosis -hold ASA and plavix for now Labs: WBC (thou/cmm) Date Value 12/26/2017 10.48 (H) RBC (mil/cmm) Date Value 12/26/2017 4.03 Hemoglobin (g/dL) Date Value 12/08/2017 12.6 HGB (g/dL) Date Value 12/26/2017 11.8 Hematocrit (%) Date Value 12/26/2017 36.6 MCV (fl) Date Value 12/26/2017 90.8 MCH (pg) Date Value 12/26/2017 29.3 MCHC (%) Date Value 12/26/2017 32.2 RDW-CV (%) Date Value 12/08/2017 14.1 Platelet Count (thou/cmm) Date Value 12/26/2017 426 (H) MPV (fl) Date Value 12/26/2017 9.5 Glucose (mg/dL) Date Value 12/26/2017 74 BUN (mg/dL) Date Value 12/26/2017 11 Creatinine (mg/dL) Date Value 12/26/2017 0.78 Sodium (mEq/L) Date Value 12/26/2017 140 Potassium (mEq/L) Date Value 12/26/2017 3.7 Chloride (mEq/L) Date Value 12/26/2017 107 CO2 (mEq/L) Date Value 12/26/2017 25 Protein, Total (g/dL) Date Value 12/21/2017 7.1 Albumin (g/dL) Date Value 12/21/2017 2.6 (L) Calcium (mg/dL) Date Value 12/26/2017 8.4 (L) Alkaline Phosphatase (U/L) Date Value 12/21/2017 100 Bilirubin, Total (mg/dL) Date Value 12/21/2017 0.2 AST (U/L) Date Value 12/21/2017 14 ALT (U/L) Date Value 12/21/2017 14 Hep C Antibody IA (no units) Date Value 11/04/2016 Negative URINLAYSIS pH Date Value Ref Range Status 09/24/2016 7.355 7.320 - 7.420 Final Specific [place], Ur Date Value Ref Range Status 12/22/2017 1.021 1.005 - 1.030 Final Glucose, Urine Date Value Ref Range Status 12/22/2017 NEGATIVE Negative mg/dL Final Bilirubin, Urine Date Value Ref Range Status 12/22/2017 NEGATIVE Negative Final Ketones, Urine Date Value Ref Range Status 12/22/2017 NEGATIVE Negative mg/dL Final Protein, Urine Date Value Ref Range Status 12/22/2017 300 (A) Negative mg/dL Final Urobilinogen, Urine Date Value Ref Range Status 12/22/2017 0.2 0.0 - 1.0 EU/dL Final WBC, Urine Date Value Ref Range Status 12/22/2017 0.4 0.0 - 5.0 /hpf Final Lines/ Drains/ Airways: Lines, Drains, and Airways Line Central Line Single Lumen 12/26/17 1421 Peripherally Inserted (PICC) Right Arm 4.0 [place]mani less than 1 day DVT PPx: Lovenox 40mg Sub Q Daily Anticoagulant AND Antiplatelet Medications Start Dose Route Frequency Ordered Stop 12/26/17 0900 enoxaparin 40 mg injection (LOVENOX) (Medical At Risk ) 40 mg SUBCUTANEOUS DAILY 12/25/17 1803 -- Disposition: Anticipate discharge to: Home PT Code Status: Code Status: FULL CODE SIGNATURE: Casey Flood MD PATIENT NAME: Davina Green DATE: December 26, 2017 TIME: 2:36 PM PAGER/CONTACT #: [phone] PROCEDURE Observed: 12/26/2017 Status: COMPLETED Source: [place] 2:29 PM CLINIC OTHER CAMPUS REPOSITORY HNO ID: [id number] Author: Page GuillenRnSarina Stauffer RN Service: PICC Team Author Type: Registered Nurse Type: Procedures Filed: 12/26/2017 2:32 PM Note Text: PICC NURSE INSERTION NOTE DATE OF PROCEDURE: December 26, 2017 TIME OF PROCEDURE: 134 ORDERING PHYSICIAN: Chaparrita Hidalgo INFORMED CONSENT: Obtained per hospital policy. INDICATION FOR LINE PLACEMENT: IV therapy over six days CONDITION OF LINE PLACEMENT: Sterile PRIMARY PROCEDURALIST: Page Stauffer RN EQUIPMENT PLANNER: Ivania Leija RN PRE-PROCEDURE REVIEW ALLERGIES Allergen Reactions - Lipitor [Atorvastat* Other: See Comments fatigue - Penicillins Hives, Swelling Updated 12/22/[address] Chaparrita Hidalgo - Pravachol [Pravasta* Intolerance Fatigue, loss of appetite. - Prozac [Fluoxetine * Mental Status Change sleepiness Known History of Venous Thrombosis: No Known History of Permanent Pacemaker or Automated Implanted Cardiac Device: No Previous Breast Surgery of Lymph Node Dissection: No History of Renal Disease with Arterio-Venous Fistula in Place or Planned: No Ultrasound Assessment Complete: Yes PROCEDURE NARRATIVE SAFE PRACTICE Hand Hygiene per Hospital Policy: Yes Skin Preparation Unit Dose Applicator Used: Chloraprep (CHG + alcohol), allowed to dry. Procedure Surface Cleansed with Antimicrobial Wipes: Yes Barriers Used by Proceduralist and all Assisting Personnel: Yes UNIVERSAL PROTOCOL / SAFETY CHECKLIST Procedure to be performed: Peripherally Inserted Central Catheter Sign in Communication: Completed Time Out: Team Confirms the Correct Patient, Correct Procedure, Correct Site and Site Marking, Correct Position (if applicable), Prep and Dry Time (if applicable). Time: 1345 Affirmation of Time Out: N/A Sign Out Discussion: Completed Page Stauffer RN CATHETER PLACEMENT Brand: Bard Lot: [id number] Number of Lumens: 1 Type of PICC: Power Injectable PICC Lumen Size: 4 O[place]i PLACEMENT TECHNIQUE Lidocaine: Yes. Strength: 1% Volume 2cc Modified Seldinger Technique Used to Place Line via the Right Basilic Ultrasound Guidance: Yes Number of Attempts at Insertion: 1 Internal Length: 36 cm External Length: 2 cm Trim Length: 38 cm Mid-Arm Circumference Above Insertion Site: 29 centimeters Post Insertion Pain Level Related to Procedure: 0 Action Taken to Address Pain: None needed Verified Placement: Blood return and Tip location system or device indicates the tip is located in the SVC/CAJ. Line was Flushed with 20 cc normal saline Line Secured with: Securement device-statlock Sterile Dressing Applied and Dated: Yes-biopatch appied to insertion site. Sterile Caps on all Ports Prior to Leaving Procedure Area: Yes SPECIMENS: None COMPLICATIONS: None Patient Education Materials: Placed in chart [facility] Central Line Insertion Checklist utilized during this procedure QUESTIONS or PROBLEMS: Call [phone] SIGNATURE: Page Stauffer RN PATIENT NAME: Dvaina Green DATE: December 26, 2017 TIME: 2:29 PM PAGER/CONTACT PHONE: PROGRESS Observed: 12/26/2017 Status: COMPLETED Source: [place] 2:05 PM [facility] REPOSITORY HNO ID: [id number] Author: Ivania GuillenRn) INES Leija Service: PICC Team Author Type: Registered Nurse Type: Progress Notes Filed: 12/26/2017 2:12 PM Note Text: PATIENT EDUCATION TOPIC: PROCEDURE / SURGERY: Procedure/Surgery: Peripherally Inserted Central Catheter PATIENT NAME: Davina Green PATIENT LOCATION: [place] [address]* READINESS TO LEARN COGNITIVE ABILITY: Alert and oriented MOTIVATION TO LEARN: Interested FAMILY SUPPORT: Unable to assess - Family not present INSTRUCTION PROVIDED TO: Patient PATIENT LEARNS BEST BY: Individual Instruction Verbal Instruction FACTORS AFFECTING LEARNING: None PHYSICAL LIMITATIONS AFFECTING LEARNING: Pain , Fatigue and Limited Mobility LEARNING RESPONSE DIAGNOSIS: ADULT: MCC atbs PATIENT/FAMILY RESPONSE: Verbalizes understanding of: POST-PROCEDURE INSTRUCTIONS-Correct actions to take to reduce post procedure complications PRE-PROCEDURE INSTRUCTIONS-Correct action to take to follow pre-procedure instructions METHOD OF INSTRUCTION: Individual instruction Verbal instruction FOLLOW-UP PLAN: Complete - No need for follow-up INSTRUCTIONAL AIDS USED: Picc Line Book SUPPLEMENTAL MATERIAL PROVIDED TO PATIENT: [facility] PICC information brochure and Catheter Associated Bloodstream Infections Fact sheet REFERRAL (RECOMMENDATION): None Electronically Signed By: Ivania Leija RN THERAPY NT Observed: 12/26/2017 Status: COMPLETED Source: [place] 1:10 PM [facility] REPOSITORY HNO ID: [id number] Author: Anthony Mckeon/Dez Morris Service: Occupational Therapy Author Type: Occupational Therapist Type: Therapy (PT/OT/Speech/Resp) Filed: 12/26/2017 1:13 PM Note Text: Occupational Therapy Treatment SERVICE DATE: 12/26/2017 SERVICE TIME: 1050 to 1115 ROOM: [id number] Recommended Discharge Disposition: Home Recommended Discharge Disposition Comments: with assist Anticipated Discharge Needs: Physical Assist at Home;Equipment Physical Assist at Home for: Cleaning;Laundry;Shopping;Transportation Recommended Discharge Equipment: Wheeled Walker;Shower Chair OT Recommendations to Nursing: To Bathroom for ADL?s /and or Toileting;With assist of 1 person Equipment: Wheeled Walker OT 6 Clicks Score: 23 Precautions/Activity Restrictions: Weight Bearing Restrictions;Lines/Tubes/Drains (wound vac.) Precaution/Activity Restriction Comments: heel weight bearing Isolation Type: None Extremity With Weight Bearing Restricted: Left Lower Extremity Left Lower Extremity Weight Bearing Status: Heel Weight Bearing ASSESSMENT: Patient Disposition at Start of Session: Supine in Bed;Call Thomas in Reach Patient Disposition at End of Session: Supine in Bed;Call Thomas in Reach Tolerated Full Session Occupational Therapy Problem List: Impaired Self Care;Decreased Activity Tolerance;Functional Mobility Impairment Patient /Caregiver Goals: Go Home Goals for Plan of Care: Grooming with: Independent Upper Body Bathing with: Independent Lower Body Bathing with: Independent Lower Body Dressing with: Independent Tolerate (minutes of functional activity): 45 Functional Activity with: Modified Independent Demonstrate Competence With Education with: Independent Transfer: all functional transfers: modified independent (with wheeled walker) Progress Toward Goals: Progressing as expected PLAN: Treatment Frequency (times per week): 5 (1-4) Current admission Treatment Interventions: Education;Self Care / Home Management;Functional Mobility Training Plan of Care developed with: Patient TREATMENT INTERVENTIONS: Therapy Diagnosis: Reduced mobility-other;Decreased activities of daily living (ADL) Interventions Provided: Self Long-Term Management (04015) Self Long-Term Management (10578) Treatment Minutes: 25 2 units Skilled Intervention(s): Provided instruction, cuing and facilitation for lower body dressing, provided cues for proper hand placement during functional transfers, provided cues for safety during all ADL tasks completed. Required occasional rest breaks secondary to fatigue. Completed commode transfer with cues for walker safety and supervision. Completed grooming tasks at edge of bed with supervision. Total Timed Code Treatment Minutes: 25 Total Treatment Time (minutes): 25 SUBJECTIVE: Current Hospital Course: Chart reviewed and no significant medical updates relevant to therapy were noted Reason for Occupational Therapy Consult: post acute placement Relevant Past Medical History: DM2, wound abscess, gangrene Patient Report: Patient seen bedside, agreeable to therapy. No complaints this a.m. Home Environment Patient Lives With: ( and son. Was at SNF prior to admit) Assistance Available: 24 Hour (son ) Entry To Home: Stairs;With Rail Number Of Stairs Into Home: 5 Number Of Stairs To Bed/Bath: 10 Stairs to Bed/Bath with: Unilateral Rail Tub/Shower Type: tub shower Equipment Owned: Crutch(es) Prior Functional Level: Within Functional Limits (pt mostly indep with ADLs at facility prior to arrival) OBJECTIVE: Responsiveness: Alert Follows Commands: 3-step Commands CURRENT FUNCTIONAL STATUS: Current Activities of Daily Living Assist Level Feeding Independent Grooming Supervision Bathing Upper Body Stand By Assistance Bathing Lower Body Contact Guard Assistance Dressing Upper Body Independent Dressing Lower Body Verbal Cues Only Toileting Independent Instrumental Activities of Daily Living Assist Level Meal/Beverage Prep Light Cleaning Laundry Medication Management with Strategies Functional Mobility Assist Level Rolling Supine to Sit Supervision Sit to Supine Supervision Scooting Sit to Stand Stand By Assistance Stand to Sit Stand By Assistance Bed to Chair Toilet/Commode Supervision Functional Mobility Stand By Assistance Wheeled Walker Activity Tolerance: Standing Activity Standing Activity: Functional mobility to/from bathroom; toilet transfer Standing Activity Tolerance (in minutes): 5 Please see discipline specific clinical documentation flowsheet for complete details for this therapy evaluation/treatment. SIGNATURE: ELI Perrin/Ibeth PATIENT NAME: Davina Green DATE: December 26, 2017 TIME: 1:10 PM [facility] Observed: 12/26/2017 Status: COMPLETED Source: [place] 12:[address] [facility] OTHER [place] REPOSITORY HNO ID: [id number] Author: Amita Lockett LPN Service: Home Care Services Author Type: LICENSED NURSE Type: Allied Health Filed: 12/26/2017 12:44 PM Note Text: REGIONAL GUIDE NOTE SERVICE DATE: 12/26/2017 SERVICE TIME: 1243 Per [facility] caresource eligible for home infusion pharmacy [facility] at 100%- SIGNATURE: Amita Lockett LPN PATIENT NAME: Davina Green DATE: December 26, 2017 TIME: 12:43 PM PROGRESS Observed: 12/26/2017 Status: COMPLETED Source: [place] 10:09 AM CLINIC OTHER [place] REPOSITORY HNO ID: [id number] Author: Velma Landni Service: Vascular Surgery Author Type: Physician Type: Progress Notes Filed: 01/06/2018 4:56 AM Note Text: Vascular Surgery Progress Note SERVICE DATE: 12/26/2017 Subjective SUBJECTIVE: No acute events. Pain LLE. Still has strength and sensation. WV in place Denies N/V/CP/SOB Diet: DIET REGULAR Objective OBJECTIVE: Vitals: Temp (24hrs), Av.8 ?C (98.3 ?F), Min:36.7 ?C (98.1 ?F), Max:37.1 ?C (98.8 ?F) BP 159/62 Pulse 91 Temp 36.8 ?C (98.2 ?F) (Oral) Resp 18 Ht 152.4 cm (5') Wt 56.7 kg (125 lb) SpO2 98% BMI 24.41 kg/m? O2 Therapy: Room Air IANDO: Date 12/25/17699 - 12/26/1759 12/26/17699 - 12/27/17 0659 Shift 6766-7019 2666-0408 7455-4648 24 Hour Total 3182-7189 9079-4105 2698-5296 24 Hour Total I N T A K E PO 300 300 PO 300 300 IV 613 830 9863 100 100 Vancomycin IV 150 150 LR 275 275 OR Crystalloid intake (mL) 400 400 Flagyl IV 100 100 100 100 Aztreonam (Azactam) IV 50 50 100 Shift Total 058 971 0120 100 100 O U T P U T Urine 190 1200 1390 300 300 Void (ml) 190 1200 1390 300 300 Drains 10 10 Negative Pressure: Output (mL) (Negative Pressure Wound Therapy 12/25/17 Foot - Left) 10 10 Shift Total 200 1200 1400 300 300 Weight (kg) 56.7 56.7 56.7 56.7 56.7 56.7 56.7 56.7 MEDICATIONS Current Facility-Administered Medications: lidocaine 10 mg/mL (1 %) 10-20 mg injection (XYLOCAINE) 1- 2 mL INTRADERMAL ONCE 0.9% NaCl 10 mL 10 mL INTRAVENOUS q 12 H 0.9% NaCl 20 mL 20 mL INTRAVENOUS PRN enoxaparin 40 mg injection (LOVENOX) 40 mg SUBCUTANEOUS DAILY ondansetron 4 mg tab(s) (ZOFRAN) 4 mg ORAL q 6 H PRN Or ondansetron (PF) 4 mg injection (ZOFRAN) 4 mg INTRAVENOUS q 6 H PRN docusate sodium 100 mg cap(s) (COLACE) 100 mg ORAL BID lactated ringers infusion 100 mL/hr INTRAVENOUS CONTINUOUS morphine 2 mg injection 2 mg INTRAVENOUS q 2 H PRN HYDROcodone 5 mg - acetaminophen 325 mg tablet (NORCO) 1-2 tablet ORAL q 4 H PRN acetaminophen 325 mg tab(s) (TYLENOL) 325 mg ORAL q [address] 40 mg tab(s) (PROTONIX) 40 mg ORAL DAILY (6 AM) lisinopril 30 mg tab(s) (ZESTRIL,PRINIVIL) 30 mg ORAL DAILY vancomycin 750 mg in dextrose (iso-osmotic) 150 mL 0.75 g INTRAVENOUS q 12 HR buPROPion XL 150 mg tab(s) (WELLBUTRIN XL) 150 mg ORAL DAILY sertraline 100 mg tab(s) (ZOLOFT) 100 mg ORAL DAILY fluocinonide 0.05 % (LIDEX) TOPICAL DAILY insulin lispro pen (rapid acting) (HumaLOG KWIKPEN) SUBCUTANEOUS w MEALS aztreonam iv piggyback 2 g in dextrose (iso-osmotic) 50 mL (AZACTAM) 2 g INTRAVENOUS q 8 H metroNIDAZOLE 500 mg PREMIX piggyback (FLAGYL) 500 mg INTRAVENOUS q 8 H insulin lispro 5 Units pen (rapid acting) (HumaLOG KWIKPEN) 5 Units SUBCUTANEOUS w MEALS atorvastatin 40 mg tab(s) (LIPITOR) 40 mg ORAL AT BEDTIME diphenhydrAMINE 25 mg (BENADRYL) 25 mg ORAL q 6 H PRN amLODIPine 10 mg tab(s) (NORVASC) 10 mg ORAL DAILY insulin glargine 14 Units pen (long acting) (LANTUS SOLOSTAR, BASAGLAR KWIKPEN) 14 Units SUBCUTANEOUS AT BEDTIME dextrose 40 % 15 g 15 g ORAL PRN Or glucagon 1 mg injection (GLUCAGEN) 1 mg INTRAMUSCULAR PRN Or dextrose 50% in water 25 mL syringe 12.5 g INTRAVENOUS PRN Labs: Recent Labs 12/26/17 0414 12/25/17 0315 NA 140 142 K 3.7 3.8 CHLOR 107 111* CO2 25 25 BUN 11 15 CREAT 0.78 0.84 GLUC 74 116* ANION 12 10 CA 8.4* 8.4* WBC 10.48* 8.54 HB 11.8 10.9* HCT 36.6 34.2 PLT 426* 404* Exam: GENERAL: No distress, Alert NEURO: AANDOx3, CN II-XII grossly intact HEENT: normocephalic, atraumatic LUNGS: Unlabored breathing O2 Therapy: Room Air CARDIAC: Regular rate and rhythm as above ABDOMEN: Soft, non-tender, non-distended EXTREMITIES: [place], + PT/DP, WV in place to suction SKIN: Skin color, texture, turgor normal, No rashes or lesions ASSESSMENT AND PLAN: Active Hospital Problems Diagnosis Date Noted - Diabetic ulcer of toe of left foot associated with type 2 diabetes mellitus, limited to breakdown of skin ([facility]) 10/17/2017 Priority: A Assessment AND Plan Note: Diabetic Foot Ulcer with Surgical Site Infection s/p left 5th digit amputation -concern for osteomyelitis -appreciate ID recs: Vanc, Aztreonam and Flagyl . -appreciate Ortho recs: MRI foot shows focal fluid collection near the amputation site and erosive changes in the bone at the amputation site. ?-plan for IANDD 12/25 today -was NPO from midnight -Blood culture no growth at day 3 , No MRSA -possible PICC line placement depending on duration of antibiotics -PT/OT -wound care -percocet prn q6hr - Diabetes ([facility]) 12/23/2017 Priority: B Assessment AND Plan Note: -A1C 14.5% from October 2017 -lantus -SSI -monitor bg -diabetic education - Essential hypertension, benign 06/22/2012 Priority: D Assessment AND Plan Note: -continue home lisinopril and home amlodipine -increased lisinopril to 20 mg -hold HCTZ -follow BP's - Hyperlipidemia with target LDL less than 100 03/18/2014 Priority: F Assessment AND Plan Note: -atorvastatin 40mg - Tobacco abuse 12/23/2017 Priority: G Assessment AND Plan Note: -smoking cessation encouraged - History of cerebrovascular accident (CVA) with residual deficit 04/20/2015 Assessment AND Plan Note: CVA and Carotid Stenosis -hold ASA and plavix for now -Pt going for I AND D today 62 year old female s/p LLE Angioplasty 11/14/17, L 5th toe amputation 12/11/17, now with abscess at L amp site debrided on 12/25/17 ? - Management per primary team - Wound vac per podiatry - Vanc and Flagyl per ID - ABIs ordered Assessment and plan discussed with attending: Dr. Landin SIGNATURE: Ba Staples MD PATIENT NAME: Davina Green DATE: December 26, 2017 TIME: 10:09 AM Pager: [phone] I saw and evaluated the patient. Discussed with the resident and agree with resident's findings and plan as documented in the resident's note. THERAPY NT Observed: 12/26/2017 Status: COMPLETED Source: [place] 9:39 AM CLINIC OTHER CAMPUS REPOSITORY HNO ID: [id number] Author: Johnie (Pt) Amada Service: Physical Therapy Author Type: Physical Therapist Type: Therapy (PT/OT/Speech/Resp) Filed: 12/26/2017 9:45 AM Note Text: Physical Therapy Treatment Re-Eval Performed as pt has had a sx: I AND D on 12/25 with a wound vac placed SERVICE DATE: 12/26/2017 SERVICE TIME: 899 to 922 ROOM: [id number] Recommended Discharge Disposition: Home PT Recommended Discharge Disposition Comments: Pt mobilizing safely with assistive device on stairs and level surfaces. Anticipated Discharge Needs: Physical Assist at Home;Equipment Physical Assist at Home for: Cleaning;Laundry;Shopping;Transportation Recommended Discharge Equipment: Wheeled Walker PT Recommendations to Nursing: With assist of 1 person;Ambulate with device;To bathroom (assist with the wound vac) Device: Wheeled Walker PT 6 Clicks Score: 21 Precautions/Activity Restrictions: Weight Bearing Restrictions;Lines/Tubes/Drains (wound vac.) Precaution/Activity Restriction Comments: heel weight bearing Isolation Type: None Extremity With Weight Bearing Restricted: Left Lower Extremity Left Lower Extremity Weight Bearing Status: Heel Weight Bearing ASSESSMENT : Patient continues to mobilize well despite having sx on 12/25 for I AND D and wound vac placement. Pt able to maintain WBAT through her heel only as ordered. Pt on track for home with family and home PT at the time of medical discharge from our perspective. Patient Disposition at Start of Session: Supine in Bed;Call Thomas in Reach Patient Disposition at End of Session: Supine in Bed;Call Thomas in Reach Tolerated Full Session Physical Therapy Problem List: Pain;Decreased Strength;Functional Mobility Impairment Patient /Caregiver Goals: Walk Goals for Plan of Care: Able to perform HEP with: Verbal Cues Only Transfer sit to/from stand with: Supervision Ambulate with: Supervision Distance: 100 Device: Wheeled Walker Ambulate up and down steps with: Stand By Assistance Number of steps: 5 Device: Rail;Crutch(es) (goal met) Rehab Potential: Excellent PLAN: Treatment Frequency (times per week): 5 (2-5) Current admission Treatment Interventions: Education;Strengthening;Functional Mobility Training Plan of Care developed with: Patient TREATMENT INTERVENTIONS: Therapy Diagnosis: Reduced mobility-other;General symptoms and signs-other Interventions Provided: Re-evaluation;Therapeutic Exercise (84207);Gait Training (15621) $ Reevaluation (14130) Billed Units: 1 unit Therapeutic Exercise (04067) Treatment Minutes: 6 1 unit Skilled Intervention(s): Instruction in therapeutic exercise for LE strengthening and ROM. Educated and instructed to move more slowly with the ankle pump on the L to protect the sx. Verbal and tactile cuing provided to account for the wound vac. Gait Training (96898) Treatment Minutes: 4 0 units Skilled Intervention(s): Instruction in sit to stand technique with proper hand placement and body positioning at edge of bed/chair, Instruction in stand to sit technique with LE's touching chair/bed and reaching back for surface, Instruction in WB precautions, Instruction in use of equipment, cues for sequence and pattern and Educated that the WB through the heel is acceptable as per Physician's order. Total Timed Code Treatment Minutes: 10 Total Treatment Time (minutes): 23 FUNCTIONAL G CODE: PT 6 Clicks Score: 21 (12/26/17899) Mobility: Walking and Moving Around Current Status (G8978): CJ (12/26/17899) Mobility: Walking and Moving Around Goal Status (G8979): CI (12/26/17899) Based on clinical assessment and the score on the 6 Clicks Functional Assessment Tool, the G code and corresponding severity modifiers are documented above. SUBJECTIVE: Current Hospital Course: Chart reviewed; abscess at L amp site debrided on 12/25/17 Reason for Physical Therapy Consult : post acute placement Patient Report: Pt reporting minimal discomfort; willing to participate with PT Home Environment Patient Lives With: ( and son. Was at SNF prior to admit) Assistance Available: 24 Hour (son ) Entry To Home: Stairs;With Rail Number Of Stairs Into Home: 5 Number Of Stairs To Bed/Bath: 10 Stairs to Bed/Bath with: Unilateral Rail Tub/Shower Type: tub shower Equipment Owned: Crutch(es) Prior Functional Level: Within Functional Limits (pt mostly indep with ADLs at facility prior to arrival) OBJECTIVE: CURRENT FUNCTIONAL STATUS: Current Functional Mobility Assist Level Additional Information Rolling Supervision Supine to Sit Supervision Sit to Supine Supervision Scooting Supervision Sit to Stand Stand By Assistance Stand to Sit Stand By Assistance Bed to Chair Toilet/Commode Gait Contact Guard Assistance Gait Device: Wheeled Walker Gait Distance (feet): 80x1 Stairs Contact Guard Assistance Stairs Device: Crutch(es) (crutch and railing) Number of Stairs: 5 Curb Step Car Transfer General Gait Deviations: (heel weight bearing) Range Of Motion: Within Functional Limits Except Left Lower Extremity ROM Comments: L ankle and toes not assessd Strength: Within Functional Limits Except Left Lower Extremity Strength Comments: 4 Balance: (safe with assistive devices) Please see discipline specific clinical documentation flowsheet for complete details for this therapy evaluation/treatment. SIGNATURE: Johnie Ybarra PT PATIENT NAME: Davina Green DATE: December 26, 2017 TIME: 9:39 AM PROGRESS Observed: 12/26/2017 Status: COMPLETED Source: [place] 8:50 AM CLINIC OTHER CAMPUS REPOSITORY HNO ID: [id number] Author: Caitlyn Hidalgo Service: Infectious Disease Author Type: Physician Type: Progress Notes Filed: 12/26/2017 9:01 AM Note Text: INFECTIOUS DISEASE CONSULT PROGRESS NOTE SERVICE DATE: 12/26/2017 SERVICE TIME: 8:57 AM Subjective INTERVAL HISTORY: Awake, says pain in L foot is 5 out of 10. PERTINENT ROS: Denies fever or chills. Current Facility-Administered Medications: enoxaparin 40 mg injection (LOVENOX) 40 mg SUBCUTANEOUS DAILY ondansetron 4 mg tab(s) (ZOFRAN) 4 mg ORAL q 6 H PRN Or ondansetron (PF) 4 mg injection (ZOFRAN) 4 mg INTRAVENOUS q 6 H PRN docusate sodium 100 mg cap(s) (COLACE) 100 mg ORAL BID lactated ringers infusion 100 mL/hr INTRAVENOUS CONTINUOUS morphine 2 mg injection 2 mg INTRAVENOUS q 2 H PRN HYDROcodone 5 mg - acetaminophen 325 mg tablet (NORCO) 1-2 tablet ORAL q 4 H PRN acetaminophen 325 mg tab(s) (TYLENOL) 325 mg ORAL q [address] 40 mg tab(s) (PROTONIX) 40 mg ORAL DAILY (6 AM) lisinopril 30 mg tab(s) (ZESTRIL,PRINIVIL) 30 mg ORAL DAILY vancomycin 750 mg in dextrose (iso-osmotic) 150 mL 0.75 g INTRAVENOUS q 12 HR buPROPion XL 150 mg tab(s) (WELLBUTRIN XL) 150 mg ORAL DAILY sertraline 100 mg tab(s) (ZOLOFT) 100 mg ORAL DAILY fluocinonide 0.05 % (LIDEX) TOPICAL DAILY insulin lispro pen (rapid acting) (HumaLOG KWIKPEN) SUBCUTANEOUS w MEALS aztreonam iv piggyback 2 g in dextrose (iso-osmotic) 50 mL (AZACTAM) 2 g INTRAVENOUS q 8 H metroNIDAZOLE 500 mg PREMIX piggyback (FLAGYL) 500 mg INTRAVENOUS q 8 H insulin lispro 5 Units pen (rapid acting) (HumaLOG KWIKPEN) 5 Units SUBCUTANEOUS w MEALS atorvastatin 40 mg tab(s) (LIPITOR) 40 mg ORAL AT BEDTIME diphenhydrAMINE 25 mg (BENADRYL) 25 mg ORAL q 6 H PRN amLODIPine 10 mg tab(s) (NORVASC) 10 mg ORAL DAILY insulin glargine 14 Units pen (long acting) (LANTUS SOLOSTAR, BASAGLAR KWIKPEN) 14 Units SUBCUTANEOUS AT BEDTIME dextrose 40 % 15 g 15 g ORAL PRN Or glucagon 1 mg injection (GLUCAGEN) 1 mg INTRAMUSCULAR PRN Or dextrose 50% in water 25 mL syringe 12.5 g INTRAVENOUS PRN Objective PHYSICAL EXAM: Vital Signs: BP 159/62 Pulse 91 Temp 36.8 ?C (98.2 ?F) (Oral) Resp 18 Ht 152.4 cm (5') Wt 56.7 kg (125 lb) SpO2 98% BMI 24.41 kg/m? HEENT moist mouth Neck supple Lungs CTA anteriorly Heart RRR Abdomen soft, NT, ND Extremities kerlex wrap on L foot C/D/I, wound VAC in place DATA: Diagnostic Tests Reviewed for Today's Visit: Creatinine 0.7, WBC 10.4, OR cultures no growth x 1 day. Impression/Recommendations Principal Problem (Resolved): Abscess POA: Unknown Assessment AND Plan: S/P debridement in OR POD #1. I discussed with her IV vs PO and that I recommend IV at home for 4-6 weeks based on inflammatory markers. She agrees with IV therapy. Will order a PICC line. Final antibiotic rec's not yet determined. Await podiatry input re: need for closure. Tobacco abuse POA: Yes Assessment AND Plan: Advised cessation. SIGNATURE: Caitlyn Hidalgo MD, MS, FACP, FIDSA PATIENT NAME: Davina Green DATE: December 26, 2017 TIME: 8:50 AM PAGER/CONTACT #: [phone] PROGRESS Observed: 12/26/2017 Status: COMPLETED Source: [place] 6:01 AM CLINIC OTHER CAMPUS REPOSITORY HNO ID: [id number] Author: Brandon Ball Service: Orthopaedic Surgery Author Type: Resident Type: Progress Notes Filed: 12/26/2017 6:27 AM Note Text: Orthopaedic INPATIENT PROGRESS NOTE ASSESSMENT AND PLAN: 62 YO F POD1 s/p IANDD L Foot 1. Regular diet 2. Pain control 3. WBAT through heel LLE 4. Maintain wound vac 5. DVT ppx: Lovenox 40mg Daily beginning 12/26/17, SCDs 6. PPI ppx: Protonix 7. Abx per ID: Vancomycin, aztreonam, flagyl; probable need for PICC 8. Appreciate Vascular Surgery recs: follow up ABIs 9. Follow up intra-operative deep wound and bone cultures 10. PT/OT 11. Wound care on board 12. Medical management per Don 13. Plan for future OR date TBD for closure INTERVAL HPI: No acute events overnight. Pain controlled. Able to sleep. Denies fevers/chills MEDICATIONS: Current hospital medications: enoxaparin 40 mg injection (LOVENOX) 40 mg SUBCUTANEOUS DAILY ondansetron 4 mg tab(s) (ZOFRAN) 4 mg ORAL q 6 H PRN ondansetron (PF) 4 mg injection (ZOFRAN) 4 mg INTRAVENOUS q 6 H PRN docusate sodium 100 mg cap(s) (COLACE) 100 mg ORAL BID lactated ringers infusion 100 mL/hr INTRAVENOUS CONTINUOUS morphine 2 mg injection 2 mg INTRAVENOUS q 2 H PRN HYDROcodone 5 mg - acetaminophen 325 mg tablet (NORCO) 1-2 tablet ORAL q 4 H PRN acetaminophen 325 mg tab(s) (TYLENOL) 325 mg ORAL q [address] 40 mg tab(s) (PROTONIX) 40 mg ORAL DAILY (6 AM) lisinopril 30 mg tab(s) (ZESTRIL,PRINIVIL) 30 mg ORAL DAILY vancomycin 750 mg in dextrose (iso-osmotic) 150 mL 0.75 g INTRAVENOUS q 12 HR buPROPion XL 150 mg tab(s) (WELLBUTRIN XL) 150 mg ORAL DAILY sertraline 100 mg tab(s) (ZOLOFT) 100 mg ORAL DAILY fluocinonide 0.05 % (LIDEX) TOPICAL DAILY insulin lispro pen (rapid acting) (HumaLOG KWIKPEN) SUBCUTANEOUS w MEALS aztreonam iv piggyback 2 g in dextrose (iso-osmotic) 50 mL (AZACTAM) 2 g INTRAVENOUS q 8 H metroNIDAZOLE 500 mg PREMIX piggyback (FLAGYL) 500 mg INTRAVENOUS q 8 H insulin lispro 5 Units pen (rapid acting) (HumaLOG KWIKPEN) 5 Units SUBCUTANEOUS w MEALS atorvastatin 40 mg tab(s) (LIPITOR) 40 mg ORAL AT BEDTIME diphenhydrAMINE 25 mg (BENADRYL) 25 mg ORAL q 6 H PRN amLODIPine 10 mg tab(s) (NORVASC) 10 mg ORAL DAILY insulin glargine 14 Units pen (long acting) (LANTUS SOLOSTAR, BASAGLAR KWIKPEN) 14 Units SUBCUTANEOUS AT BEDTIME dextrose 40 % 15 g 15 g ORAL PRN glucagon 1 mg injection (GLUCAGEN) 1 mg INTRAMUSCULAR PRN dextrose 50% in water 25 mL syringe 12.5 g INTRAVENOUS PRN PHYSICAL EXAM: BP 138/60 Pulse 81 Temp 36.8 ?C (98.2 ?F) (Oral) Resp 18 Ht 152.4 cm (5') Wt 56.7 kg (125 lb) SpO2 98% BMI 24.41 kg/m? Body mass index is 24.41 kg/m?. General: NAD, AAOx3 Extremities: Left Lower Extremity: Wound vac in place with good suction SILT S/S/SP/DP/T Motor intact DF/PF/EHL DP pulse palpable, foot warm with pulses Compartments soft, compressible. Tolerates passive stretch of digits DATA: Component Value Range AND Units Status Performing Lab Sodium 140 136 - 145 mEq/L Final [facility] Potassium 3.7 3.5 - 5.1 mEq/L Final [facility] Chloride 107 98 - 107 mEq/L Final [facility] CO2 25 21 - 32 mEq/L Final [facility] Glucose 74 70 - 99 mg/dL Final [facility] BUN 11 7 - 18 mg/dL Final [facility] Creatinine 0.78 0.51 - 0.95 mg/dL Final [facility] Calcium 8.4 (L) 8.5 - 10.1 mg/dL Final [facility] Anion Gap 12 8 - 16 Final [facility] Component Value Range AND Units Status Performing Lab WBC 10.48 (H) 3.98 - 10.04 thou/cmm Final [facility] RBC 4.03 3.93 - 5.22 mil/cmm Final [facility] HGB 11.8 11.2 - 15.7 g/dL Final [facility] Hematocrit 36.6 34.1 - 44.9 % Final [facility] MCV 90.8 79.4 - 94.8 fl Final [facility] MCH 29.3 25.6 - 32.2 pg Final [facility] MCHC 32.2 31.6 - 34.8 % Final [facility] RDW 14.1 11.7 - 14.4 % Final [facility] RDW-SD 47.1 (H) 36.4 - 46.3 fl Final [facility] Platelet Count 426 (H) 182 - 369 thou/cmm Final [facility] MPV 9.5 9.4 - 12.3 fl Final [facility] IMAGING: No new images SIGNATURE: Brandon Ball MD PAGER: [phone] DATE of SERVICE: 12/26/2017 TIME of SERVICE: 6:02 AM HEMOGRAM Collected: 12/26/2017 Status: F Source: [facility] 4:14 AM HEALTH SYSTEM REPOSITORY TYPE CODE TESTS RESULT OUT OF REFERENCE UNITS RANGE LAB WBC(LOINC) 3.98-10.04 thou/cmm High WBC 10.48 LAB RBC(LOINC) 3.93-5.22 mil/cmm RBC 4.03 LAB HGB(LOINC) 11.2-15.7 g/dL Hgb 11.8 LAB HCT(LOINC) 34.1-44.9 % Hct 36.6 LAB MCV(LOINC) 79.4-94.8 fl MCV 90.8 LAB MCH(LOINC) 25.6-32.2 pg MCH 29.3 LAB MCHC(LOINC) 31.6-34.8 % MCHC 32.2 LAB RDW(LOINC) 11.7-14.4 % RDW 14.1 LAB RDWSD(LOINC 36.4-46.3 fl ) High RDW SD 47.1 LAB PLT(LOINC) 182-369 thou/cmm High Platelet 426 LAB MPV(LOINC) 9.4-12.3 fl MPV 9.5 Performed By: #### CBC1 #### [place] [id number] BASIC PANEL Collected: 12/26/2017 Status: F Source: [facility] 4:14 AM HEALTH SYSTEM REPOSITORY TYPE CODE TESTS RESULT OUT OF REFERENCE UNITS RANGE LAB NA(LOINC) 136-145 mEq/L Sodium Blood 140 LAB K(LOINC) 3.5-5.1 mEq/L Potassium Blood 3.7 LAB CL(LOINC) 98-107 mEq/L Chloride Blood 107 LAB CO2(LOINC) 21-32 mEq/L CO2 Blood 25 LAB GLU(LOINC) 70-99 mg/dL Glucose Blood 74 LAB BUN(LOINC) 7-18 mg/dL BUN Blood 11 LAB CREA(LOINC 0.51-0.95 mg/dL ) Creatinine Blood 0.78 LAB CA(LOINC) 8.5-10.1 mg/dL Low Calcium Blood 8.4 LAB ANGAP(LOIN 8-16 C) Anion Gap 12 Performed By: #### P8 #### [address] [address] ANES POST Observed: 12/25/2017 Status: COMPLETED Source: [facility] 11:41 PM CLINIC OTHER CAMPUS REPOSITORY HNO ID: [id number] Author: Nilson Coombs Service: Anesthesiology Author Type: Physician Type: Anesthesia PostOp Filed: 12/25/2017 11:41 PM Note Text: POST ANESTHESIA EVALUATION NOTE SERVICE DATE: 12/25/2017 SERVICE TIME: 11:41 PM : 1955 Vitals: 12/25/17 17012/25/17182912/25/17201812/25/17 2313 Temp: 36.9 ?C (98.4 ?F) 36.9 ?C (98.4 ?F) 36.8 ?C (98.2 ?F) 36.7 ?C (98.1 ?F) 12/25/17171412/25/17182912/25/17201812/25/17 2313 BP: 138/71 162/78 134/65 135/60 12/25/17171412/25/17182912/25/17201812/25/17 2313 Pulse: 87 87 92 96 12/25/17171412/25/17182912/25/17201812/25/172312 Resp: 17 18 18 18 12/25/17171412/25/17182912/25/17201812/25/173 SpO2: 97% 100% 99% 96% Validated Vital Signs: Yes POST ANES STATUS: No apparent anesthetic complications. The patient is appropriately hydrated with stable respiratory and cardiovascular status. Patient has safe and adequate airway control. The patient has appropriate pain relief and no significant post operative nausea or vomiting. The patient has achieved baseline mental status. Further assessment by Anesthesia Service: None Other Remarks: SIGNATURE: Nilson Coombs MD PATIENT NAME: Davina Green DATE: December 25, 2017 TIME: 11:41 PM PAGER/CONTACT #: [phone] CONSULT Observed: 12/25/2017 Status: COMPLETED Source: [facility] 7:55 PM CLINIC OTHER CAMPUS REPOSITORY O ID: [id number] Author: Velma Landin Service: Vascular Surgery Author Type: Physician Type: Consults Filed: 01/06/2018 4:54 AM Note Text: CONSULT: VASCULAR SURGERY SERVICE SERVICE DATE: 12/25/2017 SERVICE TIME: 7:50 PM REASON FOR CONSULT: RLE Ischemia REQUESTING PHYSICIAN: Dr. Garrett PRIMARY CARE PHYSICIAN: Ivy Jimenez III MD Subjective Ms. Green is a 62 year old female who presents for abscess of LLE s/p amputation. Patient had a left 5th toe amputation on 12/11/[address] Pompa for a gangrenous left toe. She has been having increased pain since her operation and noticed her wound was not healing. On admission MRI, a 3.5 cm encapsulated, peripherally enhancing fluid collection at the level of surgical resection at the lateral forefoot was noted. This was concerning for an abscess. The area was debrided by Dr Garrett in OR on 11/28/17 and a wound vac was placed. Patient was been seeing a vascular surgeon, Dr. Jimenez, at [facility] prior to her amp for evaluation of her vasculature in the LLE to help improve healing post op. Patient has PVRs done on 11/01/17 and the ABIs on the LLE were 0.5 at PT and DP. They were 0.8 on the right. On 11/14/17, patient had an Angio with Angioplasty with Dr Jimenez - op report not in chart. Patient ambulates with walker on her own (per patient). Patient states she was taking Plavix but has stopped since her amputation. PAST MEDICAL HISTORY Diagnosis Date - Anxiety - Benign hypertension 08/07/2015 - Cannabis abuse 02/23/2010 - Carotid artery disorder ([facility]) Right sided - Carotid stenosis 03/11/2010 - Cervical cancer ([facility]) - CVA (cerebral infarction) 11/2009 L hemiparesis and decreased coordination - DDD (degenerative disc disease), lumbar 02/23/2010 - Diabetic nephropathy with proteinuria ([facility]) 03/18/2014 - Diabetic ulcer of toe of left foot associated with type 2 diabetes mellitus, limited to breakdown of skin ([facility]) 10/17/2017 - Environmental allergies - Essential hypertension, benign 06/22/2012 - 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 ([facility]) - Hyperlipidemia - Lichen planus 11/09/2010 - Lumbago-sciatica due to displacement of lumbar intervertebral disc 02/23/2010 - Lumbar radiculopathy 10/17/2017 left sciatica - PVD (peripheral vascular disease) ([facility]) 2017 - Spastic neurogenic bladder 05/14/2015 - Tobacco abuse - Type 2 diabetes mellitus with microalbuminuria, without long-term current use of insulin ([facility]) 05/08/2017 PAST SURGICAL HISTORY Procedure Laterality Date - AMPUTATION METATARSAL+TOE,SINGLE Left 12/11/2017 partial 5th toe - COLONOSCOP W/ OR W/O BRSH SPEC 04/11/2016 Colonoscopy - EGD W/O OR W/BRUSH/WASH 04/11/2016 EGD - LUMBAR OR CAUDAL EPIDURAL STEROID INJECTION 02/21/2011 - PAST SURGICAL HISTORY OF Exploratory surgery for cervical ca FAMILY HISTORY Problem Relation Age of Onset - Coronary Artery Disease Father - Stroke Mother - Diabetes Maternal Grandmother Social History Substance Use Topics - Smoking status: Current Every Day Smoker Packs/day: 1.00 Types: Cigarettes - Smokeless tobacco: Never Used Comment: less then a pack. Has smoked since she was 15. - Alcohol use No Prescriptions Prior to Admission: dicyclomine (BENTYL) 20 mg tablet Take 1 tablet by mouth three times daily before meals. Disp: 90 tablet Rfl: 5 Taking mometasone (ELOCON) 0.1 % cream Apply 1 application to affected area once daily. Disp: 45 g Rfl: 0 Taking sertraline (ZOLOFT) 100 mg tablet Take 1 tablet by mouth once daily. Disp: 30 tablet Rfl: 5 Taking insulin glargine (BASAGLAR KWIKPEN U-100 INSULIN) 100 unit/mL (3 mL) inpn Inject 14 Units subcutaneously daily at bedtime. Disp: 5 Pen Rfl: 5 Taking insulin lispro (HUMALOG KWIKPEN INSULIN) 100 unit/mL inpn Inject 5 Units subcutaneously w MEALS. Disp: 5 Pen Rfl: 1 Taking acetaminophen (TYLENOL ARTHRITIS PAIN) 650 mg CR tablet Take 2 tablets by mouth twice daily as needed for Pain. Disp: 120 tablet Rfl: 11 Taking naproxen (NAPROSYN) 500 mg tablet Take 1 tablet by mouth twice daily as needed for Pain. Take with food. Disp: 60 tablet Rfl: 11 Taking omeprazole (PRILOSEC) 20 mg capsule Take 1 capsule by mouth daily before breakfast. 1/2 hr before meal. Disp: 30 capsule Rfl: 11 Taking diphenhydrAMINE (BENADRYL) 50 mg capsule Take 1 capsule by mouth every 6 hours as needed for Itching/Rash. Disp: 120 capsule Rfl: 2 Taking buPROPion XL (WELLBUTRIN XL) 150 mg 24 hr tablet Take 1 tablet by mouth once daily. Disp: 30 tablet Rfl: 11 Taking lisinopril-hydrochlorothiazide (PRINZIDE,ZESTORETIC) 10-12.5 mg per tablet Take 1 tablet by mouth every morning. Disp: 30 tablet Rfl: 11 Taking amLODIPine (NORVASC) 10 mg tablet Take 1 tablet by mouth once daily. Disp: 90 tablet Rfl: 3 Taking busPIRone (BUSPAR) 10 mg tablet Take 1 tablet by mouth three times daily. Disp: 270 tablet Rfl: 3 Taking Insulin [place], Disposable, (PEN NEEDLES) 31 gauge x 1/4 ndle Use one needle with each insulin dose. 4/day Disp: 100 Each Rfl: 11 Taking alcohol swabs (ALCOHOL WIPES) padm Apply 1 application to affected area four times daily. Disp: 120 Each Rfl: 11 Taking blood sugar diagnostic (FREESTYLE LITE STRIPS) test strip Test blood sugar(s) 4 times daily. Dx: Type 2 DM - Uncontrolled E11.65 Insulin: Yes Disp: 150 Strip Rfl: 11 Taking lancets (FREESTYLE LANCETS) 28 gauge misc Test blood sugar(s) 4 times daily. Dx: Type 2 DM - Uncontrolled E11.65 Insulin: Yes Disp: 1 Each Rfl: 11 Taking Simethicone (GAS RELIEF) 125 mg chewable tablet Take 1 tablet by mouth every 6 hours as needed. Disp: 120 tablet Rfl: 11 Taking SUMAtriptan (IMITREX) 50 mg tablet 50mg by mouth as needed for migraine headache; may repeat every 2 hrs as needed for migraine(max 4/day and 9/mo) Disp: 9 tablet Rfl: 5 Taking Current hospital medications: [START ON 12/26/2017] enoxaparin 40 mg injection (LOVENOX) 40 mg SUBCUTANEOUS DAILY ondansetron 4 mg tab(s) (ZOFRAN) 4 mg ORAL q 6 H PRN ondansetron (PF) 4 mg injection (ZOFRAN) 4 mg INTRAVENOUS q 6 H PRN [START ON 12/26/2017] docusate sodium 100 mg cap(s) (COLACE) 100 mg ORAL BID lactated ringers infusion 100 mL/hr INTRAVENOUS CONTINUOUS morphine 2 mg injection 2 mg INTRAVENOUS q 2 H PRN HYDROcodone 5 mg - acetaminophen 325 mg tablet (NORCO) 1-2 tablet ORAL q 4 H PRN acetaminophen 325 mg tab(s) (TYLENOL) 325 mg ORAL q 4 H PRN [START ON 12/26/2017] pantoprazole DR 40 mg tab(s) (PROTONIX) 40 mg ORAL DAILY (6 AM) [START ON 12/26/2017] lisinopril 30 mg tab(s) (ZESTRIL,PRINIVIL) 30 mg ORAL DAILY lisinopril 10 mg tab(s) (ZESTRIL, PRINIVIL) 10 mg ORAL ONCE vancomycin 750 mg in dextrose (iso-osmotic) 150 mL 0.75 g INTRAVENOUS q 12 HR buPROPion XL 150 mg tab(s) (WELLBUTRIN XL) 150 mg ORAL DAILY sertraline 100 mg tab(s) (ZOLOFT) 100 mg ORAL DAILY fluocinonide 0.05 % (LIDEX) TOPICAL DAILY insulin lispro pen (rapid acting) (HumaLOG KWIKPEN) SUBCUTANEOUS w MEALS aztreonam iv piggyback 2 g in dextrose (iso-osmotic) 50 mL (AZACTAM) 2 g INTRAVENOUS q 8 H metroNIDAZOLE 500 mg PREMIX piggyback (FLAGYL) 500 mg INTRAVENOUS q 8 H insulin lispro 5 Units pen (rapid acting) (HumaLOG KWIKPEN) 5 Units SUBCUTANEOUS w MEALS atorvastatin 40 mg tab(s) (LIPITOR) 40 mg ORAL AT BEDTIME diphenhydrAMINE 25 mg (BENADRYL) 25 mg ORAL q 6 H PRN amLODIPine 10 mg tab(s) (NORVASC) 10 mg ORAL DAILY insulin glargine 14 Units pen (long acting) (LANTUS SOLOSTAR, BASAGLAR KWIKPEN) 14 Units SUBCUTANEOUS AT BEDTIME dextrose 40 % 15 g 15 g ORAL PRN glucagon 1 mg injection (GLUCAGEN) 1 mg INTRAMUSCULAR PRN dextrose 50% in water 25 mL syringe 12.5 g INTRAVENOUS PRN Allergies As of Date: 12/21/2017 Allergen Noted Reaction LIPITOR [ATORVASTATIN CALCIUM] 02/23/2010 Other: See Comments PENICILLINS 01/28/2010 Hives PRAVACHOL [PRAVASTATIN SODIUM] 03/04/2010 Intolerance PROZAC [FLUOXETINE HCL] 08/07/2015 Mental Status Change Fully Assessed 12/21/2017 COMPLETE REVIEW OF SYSTEMS: as per HPI Objective PHYSICAL EXAM: Physical Exam Performed: GENERAL: Alert, no distress, cooperative EYES: EOMI NECK: Supple LUNGS: Unlabored breathing on RA CARDIAC: Rhythm: regular rate and rhythm ABDOMEN: Soft, nontender EXTREMITIES: wound vac in place over left lateral foot with SS output, motor and sensation intact, DP and PT on doppler in BLE, compartments soft NEURO: Grossly normal cognition, motor function, and cranial nerves III-XII BP 162/78 Pulse 87 Temp (Src) 98.4 (Oral) Resp 18 Ht 5' 0 (1.52m) Wt 125 lb (56.7kg) SpO2 100% BMI 24.41 kg/(m2). DATA: Diagnostic tests reviewed for today's visit: Most recent labs and imaging results. CBC: Recent Labs 12/25/17 0315 WBC 8.54 RBC 3.74* HB 10.9* HCT 34.2 PLT 404* MCV 91.4 MCH 29.1 MPV 9.5 RDW 14.2 BMP: Recent Labs 12/25/17 0315 NA 142 K 3.8 CHLOR 111* CO2 25 BUN 15 CREAT 0.84 GLUC 116* Impression/Recommendations 62 year old female s/p LLE Angioplasty 11/14/17, L 5th toe amputation 12/11/17, now with abscess at L amp site debrided on 12/25/17 - Cont management per primary team - Wound vac per podiatry - Vanc and Flagyl per ID - ABIs ordered - Unlikely to need vascular intervention at this time, will follow up ABIs Discussed with Dr Torie MD SIGNATURE: Lianet Rivas MD PATIENT NAME: Davina Green DATE: December 25, 2017 TIME: 7:57 PM PAGER: [phone] I saw and evaluated the patient. I reviewed the resident's note and agree, except that expect wound to heal given history but if poor healing persists may need to repeat angio,+/_ intervention Velma Landin MD Thoracic and Vascular Surgery Beeper# [phone] I spent 10+ minutes in the visit, with more than 50% of the total [id number] time of the visit in counseling / coordination of care. NURSING PROG Observed: 12/25/2017 Status: COMPLETED Source: [facility] 4:[address] [facility] OTHER CAMPUS REPOSITORY HNO ID: [id number] Author: Lita (Rn) INES Stinson Service: (none) Author Type: Registered Nurse Type: Nursing Progress Note Filed: 12/25/2017 4:52 PM Note Text: Patient states she wants her daughter, Priscila Walker, to be able to receive updates regarding patient. Daughter's contact information updated in emergency contact section. BRIEF OP NOT Observed: 12/25/2017 Status: COMPLETED Source: [facility] 4:[address] [facility] OTHER CAMPUS REPOSITORY HNO ID: [id number] Author: Brandon Ball Service: Orthopaedic Surgery Author Type: Resident Type: Brief Op Note Filed: 12/25/2017 4:25 PM Note Text: Attestation signed by Arnold Garrett at 12/26/2017 8:11 AM I personally saw and evaluated the patient. I reviewed the resident's note. I agree with the resident's assessment and plan unless otherwise noted. Arnold Garrett DPM, FACFAS Left Foot Wound Irrigation and Debridement with Wound Vac Application BRIEF OPERATIVE / PROCEDURE NOTE LOG ID: [id number] Surgery/Procedure Date: 12/25/2017 Incision/Procedure Start Time: 3:34 PM Incision Close/Procedure End Time: 4:00 PM Surgeon(s)/Proceduralist(s) and Metallurgical Analyst(s): Surgeon(s) and Role: * Arnold Garrett - Primary * Brandon (Juan J Ball - Resident - Assisting No Additional Staff Procedure(s): Procedure(s) (LRB): INCISION AND DRAINAGE ABCESS FOOT AND HEEL (Left) Anesthesia: General Findings: Purulent drainage L foot wound Estimated Blood Loss: 5cc Sp ecimens: Deep wound culture and 5th metatarsal bone sample for culture Complications: None Pre-Op/Pre-Procedure Diagnosis: Abscess [L02.91] Post-Op/Post-Procedure Diagnosis: Abscess [L02.91] Weight Bearing Status: Weight Bearing As Tolerated through heel POST-OP PLAN: 1. Regular diet 2. Pain control 3. WBAT through heel LLE 4. Maintain wound vac 5. DVT ppx: Lovenox 40mg Daily beginning 12/26/17, SCDs 6. PPI ppx: Protonix 7. Abx per ID: Vancomycin, aztreonam, flagyl; probable need for PICC 8. Vascular Surgery consult 9. Follow up intra-operative deep wound and bone cultures 10. PT/OT 11. Wound care on board 12. Plan for future OR date TBD for closure SIGNATURE: Brandon Ball MD PATIENT NAME: Davina Green DATE: December 25, 2017 TIME: 4:18 PM PAGER/CONTACT #: [phone] Observed: 12/25/2017 Status: F Source: [facility] 4:00 PM [facility] ([facility]) REPOSITORY Test performed at [facility] Negative results obtained from specimens submitted on swabs are not reliable due to limited material provided. No acid fast bacilli cultured No acid fast bacilli seen Performed By: #### C_AFB #### [place] [address] Observed: 12/25/2017 Status: F Source: [facility] 4:00 PM [facility] ([facility]) REPOSITORY Test performed at [facility] Negative results obtained from specimens submitted on swabs are not reliable due to limited material provided. No acid fast bacilli cultured No acid fast bacilli seen Performed By: #### C_AFB #### [place] [address] Observed: 12/25/2017 Status: F Source: [facility] 4:00 PM [facility] ([facility]) REPOSITORY Test performed at [facility] No acid fast bacilli cultured No acid fast bacilli seen Performed By: #### C_AFB #### [place] [address] Observed: 12/25/2017 Status: F Source: [facility] 4:00 PM [facility] SYSTEM AND [facility] REPOSITORY Test performed at [facility] Rare Mixed skin arthur. No further identification to follow. Plates will be held for 5 days. No anaerobic organisms cultured Moderate WBC Few Gram positive cocci Performed By: #### C_ANA #### [place] [address] Observed: 12/25/2017 Status: F Source: [facility] 4:00 PM [facility] AND [facility] REPOSITORY Test performed at [facility] No anaerobic organisms cultured Few WBC Few Gram positive cocci ORGANISM: Staphylococcus epidermidis (ID: 1) Few For sensitivity report see Date/ ORGANISM: Aerobic diphtheroids (ID: 2) Rare Performed By: #### C_ANA #### [place] [address] Observed: 12/25/2017 Status: F Source: [place] [facility] 4:00 PM HEALTH SYSTEM AND AER REPOSITORY Test performed at [facility] No anaerobic organisms cultured Rare WBC No organisms seen ORGANISM: Staphylococcus epidermidis (ID: 1) Rare Performed By: #### C_ANA #### [place] [address] Observed: 12/25/2017 Status: F Source: [facility] 4:00 PM HEALTH SYSTEM REPOSITORY Test performed at [facility] No fungus (yeast or mold) cultured Performed By: #### C_FUN #### [place] [address] Observed: 12/25/2017 Status: F Source: [facility] 4:00 PM HEALTH SYSTEM REPOSITORY Test performed at [facility] No fungus (yeast or mold) cultured Performed By: #### C_FUN #### [place] [address] Observed: 12/25/2017 Status: F Source: [facility] 4:00 PM HEALTH SYSTEM REPOSITORY Test performed at [facility] No fungus (yeast or mold) cultured Performed By: #### C_FUN #### [place] [address] BRIEF OP NOT Observed: 12/25/2017 Status: COMPLETED Source: [facility] 3:46 PM CLINIC OTHER CAMPUS REPOSITORY HNO ID: [id number] Author: Arnold Garrett Service: Podiatry Author Type: Physician Type: Brief Op Note Filed: 12/25/2017 3:48 PM Note Text: BRIEF OPERATIVE / PROCEDURE NOTE LOG ID: [id number] Surgery/Procedure Date: 12/25/2017 Incision/Procedure Start Time: 3:34 PM Incision Close/Procedure End Time: Surgeon(s)/Proceduralist(s) and Metallurgical Analyst(s): Surgeon(s) and Role: * Arnold Garrett - Primary No Additional Staff Procedure(s): 1. Incision and drainage, left foot abscess 2. Bone biopsy, 5th metatarsal, left foot 3. Application wound vac, left foot Anesthesia: General Findings: Per dictation Estimated Blood Loss: <25 mls Specimens: None Complications: None Pre-Op/Pre-Procedure Diagnosis: 1. Abscess, left foot 2. Osteomyelitis, 5th metatarsal, left foot 3. Peripheral arterial disease, left LE Post-Op/Post-Procedure Diagnosis: 1. Abscess, left foot 2. Osteomyelitis, 5th metatarsal, left foot 3. Peripheral arterial disease, left LE SIGNATURE: Arnold Garrett DPM, CARROL PATIENT NAME: Davina Green DATE: December 25, 2017 TIME: 3:46 PM PAGER/CONTACT #: [phone] Observed: 12/25/2017 Status: COMPLETED Source: [facility] 3:[address] [facility] OTHER CAMPUS REPOSITORY O ID: [id number] Author: Kerwin Harding Service: Anesthesiology Author Type: Physician Type: Anesthesia PreOp Filed: 12/25/2017 3:10 PM Note Text: ANESTHESIOLOGY DAY OF SURGERY NOTE SERVICE DATE: 12/25/2017 SERVICE TIME: 3:05 PM : 1955 Procedure(s) (LRB): INCISION AND DRAINAGE ABCESS FOOT AND HEEL (Left) Surgeon(s): Arnold Garrett Estimated body mass index is 24.41 kg/m? as calculated from the following: Height as of this encounter: 152.4 cm (5'). Weight as of this encounter: 56.7 kg (125 lb). Most recent hematocrit and potassium results: HCT 34.2 12/25/2017 Potassium 3.8 12/25/2017 ANES DOS/PREOP NOTE: Vitals: 12/24/17 1511 12/24/17 2112 12/25/17 0308 12/25/17 0912 BP: 114/74 158/67 153/84 162/60 Pulse: 94 82 82 79 Resp: Temp: 36.6 ?C (97.9 ?F) 37.3 ?C (99.1 ?F) 37.1 ?C (98.8 ?F) 37.1 ?C (98.8 ?F) TempSrc: Oral Oral Oral Oral SpO2: 100% 97% 100% 100% Weight: Height: ACTIVE PROBLEM LIST Stroke/Cerebrovascular Accident ([facility]) Lumbago-Sciatica Due to Displacement of Lumbar Intervertebral Disc Ddd (Degenerative Disc Disease), Lumbar Cannabis Abuse Lichen Planus Lumbar Facet Arthropathy ([facility]) Essential Hypertension, Benign Nasal Obstruction Myofascial Pain Diabetic Nephropathy With Proteinuria ([facility]) Hyperlipidemia With Target Ldl Less Than 100 History of Cerebrovascular Accident ([facility]) With Residual Deficit Urge Incontinence of Urine Spastic Neurogenic Bladder Moderate Single Current Episode of Major Depressive Disorder ([facility]) Type 2 diabetes mellitus with microalbuminuria, without long- term current use of insulin ([facility]) Diabetic Ulcer of Toe of Left Foot Associated With Type 2 Diabetes Mellitus, Limited to Breakdown of Skin ([facility]) Lumbar Radiculopathy Wound Abscess Depression Diabetes ([facility]) Tobacco Abuse Foot Abscess, Left Penicillin Allergy PAST MEDICAL HISTORY Diagnosis Date - Anxiety - Benign hypertension 08/07/2015 - Cannabis abuse 02/23/2010 - Carotid artery disorder ([facility]) Right sided - Carotid stenosis 03/11/2010 - Cervical cancer ([facility]) - CVA (cerebral infarction) 11/2009 L hemiparesis and decreased coordination - DDD (degenerative disc disease), lumbar 02/23/2010 - Diabetic nephropathy with proteinuria ([facility]) 03/18/2014 - Diabetic ulcer of toe of left foot associated with type 2 diabetes mellitus, limited to breakdown of skin ([facility]) 10/17/2017 - Environmental allergies - Essential hypertension, benign 06/22/2012 - 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 ([facility]) - Hyperlipidemia - Lichen planus 11/09/2010 - Lumbago-sciatica due to displacement of lumbar intervertebral disc 02/23/2010 - Lumbar radiculopathy 10/17/2017 left sciatica - PVD (peripheral vascular disease) ([facility]) 2017 - Spastic neurogenic bladder 05/14/2015 - Tobacco abuse - Type 2 diabetes mellitus with microalbuminuria, without long-term current use of insulin ([facility]) 05/08/2017 PAST SURGICAL HISTORY Procedure Laterality Date - AMPUTATION METATARSAL+TOE,SINGLE Left 12/11/2017 partial 5th toe - COLONOSCOP W/ OR W/O BRSH SPEC 04/11/2016 Colonoscopy - EGD W/O OR W/BRUSH/WASH 04/11/2016 EGD - LUMBAR OR CAUDAL EPIDURAL STEROID INJECTION 02/21/2011 - PAST SURGICAL HISTORY OF Exploratory surgery for cervical ca FAMILY HISTORY Problem Relation Age of Onset - Coronary Artery Disease Father - Stroke Mother - Diabetes Maternal Grandmother Social History: Social History Substance Use Topics - Smoking status: Current Every Day Smoker Packs/day: 1.00 Types: Cigarettes - Smokeless tobacco: Never Used Comment: less then a pack. Has smoked since she was 15. - Alcohol use No No current facility-administered medications on file prior to encounter. Current Outpatient Prescriptions on File Prior to Encounter: dicyclomine (BENTYL) 20 mg tablet Take 1 tablet by mouth three times daily before meals. mometasone (ELOCON) 0.1 % cream Apply 1 application to affected area once daily. sertraline (ZOLOFT) 100 mg tablet Take 1 tablet by mouth once daily. insulin glargine (BASAGLAR KWIKPEN U-100 INSULIN) 100 unit/mL (3 mL) inpn Inject 14 Units subcutaneously daily at bedtime. insulin lispro (HUMALOG KWIKPEN INSULIN) 100 unit/mL inpn Inject 5 Units subcutaneously w MEALS. acetaminophen (TYLENOL ARTHRITIS PAIN) 650 mg CR tablet Take 2 tablets by mouth twice daily as needed for Pain. naproxen (NAPROSYN) 500 mg tablet Take 1 tablet by mouth twice daily as needed for Pain. Take with food. omeprazole (PRILOSEC) 20 mg capsule Take 1 capsule by mouth daily before breakfast. 1/2 hr before meal. diphenhydrAMINE (BENADRYL) 50 mg capsule Take 1 capsule by mouth every 6 hours as needed for Itching/Rash. buPROPion XL (WELLBUTRIN XL) 150 mg 24 hr tablet Take 1 tablet by mouth once daily. lisinopril-hydrochlorothiazide (PRINZIDE,ZESTORETIC) 10-12.5 mg per tablet Take 1 tablet by mouth every morning. amLODIPine (NORVASC) 10 mg tablet Take 1 tablet by mouth once daily. busPIRone (BUSPAR) 10 mg tablet Take 1 tablet by mouth three times daily. Insulin [place], Disposable, (PEN NEEDLES) 31 gauge x 1/4 ndle Use one needle with each insulin dose. 4/day alcohol swabs (ALCOHOL WIPES) padm Apply 1 application to affected area four times daily. blood sugar diagnostic (FREESTYLE LITE STRIPS) test strip Test blood sugar(s) 4 times daily. Dx: Type 2 DM - Uncontrolled E11.65 Insulin: Yes lancets (FREESTYLE LANCETS) 28 gauge misc Test blood sugar(s) 4 times daily. Dx: Type 2 DM - Uncontrolled E11.65 Insulin: Yes Simethicone (GAS RELIEF) 125 mg chewable tablet Take 1 tablet by mouth every 6 hours as needed. SUMAtriptan (IMITREX) 50 mg tablet 50mg by mouth as needed for migraine headache; may repeat every 2 hrs as needed for migraine(max 4/day and 9/mo) Current Facility-Administered Medications: [JUL Hold due to Transfer] lidocaine 10 mg/mL (1 %) 1-2 mg injection (XYLOCAINE) 0.1-0.2 mL INTRADERMAL PRN Arnold Garrett [JUL Hold due to Transfer] lactated ringers infusion 5-30 mL/hr INTRAVENOUS CONTINUOUS Arnold Garrett [JUL Hold due to Transfer] clindamycin 900 mg in D5W 50 mL (CLEOCIN) 900 mg INTRAVENOUS Pre-Op Once Arnold Garrett lactated ringers infusion 125 mL/hr INTRAVENOUS (PACU) CONTINUOUS Kerwin Harding fentaNYL 50 mcg/mL 50 mcg injection (SUBLIMAZE) 50 mcg INTRAVENOUS (PACU) PRN Kewrin Harding HYDROmorphone 0.5 mg injection (DILAUDID) 0.5 mg INTRAVENOUS (PACU) PRN Kerwin Harding oxyCODONE IR 5 mg tab(s) (ROXICODONE) 5 mg ORAL (PACU) PRN Kerwin Harding ondansetron (PF) 4 mg injection (ZOFRAN) 4 mg INTRAVENOUS (PACU) PRN Kerwin Harding prochlorperazine 10 mg injection (COMPAZINE) 10 mg INTRAVENOUS (PACU) PRN Kerwin Harding meperidine (PF) 12.5 mg injection (DEMEROL) 12.5 mg INTRAVENOUS (PACU) PRN Kerwin Harding [JUL Hold due to Transfer] vancomycin 750 mg in dextrose (iso- osmotic) 150 mL 0.75 g INTRAVENOUS q 12 HR Caitlyn Hidalgo 750 mg at 12/25/17 0918 [MAR Hold due to Transfer] buPROPion XL 150 mg tab(s) (WELLBUTRIN XL) 150 mg ORAL DAILY Casey (Daniel) MD Remigio 150 mg at 12/24/17 1639 [JUL Hold due to Transfer] sertraline 100 mg tab(s) (ZOLOFT) 100 mg ORAL DAILY Casey (Res) MD Remigio 100 mg at 12/24/17 1639 [MAR Hold due to Transfer] fluocinonide 0.05 % (LIDEX) TOPICAL DAILY Casey (Res) MD Remigio [MAR Hold due to Transfer] lisinopril 20 mg tab(s) (ZESTRIL, PRINIVIL) 20 mg ORAL DAILY Emma (Res) [place] 20 mg at 12/25/17 0913 [MAR Hold due to Transfer] insulin lispro pen (rapid acting) (HumaLOG KWIKPEN) SUBCUTANEOUS w MEALS Quin (Res) [place] 1 Units at 12/24/17 1747 [MAR Hold due to Transfer] aztreonam iv piggyback 2 g in dextrose (iso-osmotic) 50 mL (AZACTAM) 2 g INTRAVENOUS q 8 H Caitlyn Hidalgo 2 g at 12/25/17 1416 [MAR Hold due to Transfer] metroNIDAZOLE 500 mg PREMIX piggyback (FLAGYL) 500 mg INTRAVENOUS q 8 H Caitlyn Cosme Hidalgo 500 mg at 12/25/17 1455 [MAR Hold due to Transfer] NaCl 0.9% iv infusion 100 mL/hr INTRAVENOUS CONTINUOUS Johnie (Res) Ollie Last Rate: 100 mL/hr at 12/25/17 0452 100 mL/hr at 12/25/17 0452 [MAR Hold due to Transfer] insulin lispro 5 Units pen (rapid acting) (HumaLOG KWIKPEN) 5 Units SUBCUTANEOUS w MEALS Emma (Res) [place] 5 Units at 12/24/17 1746 [MAR Hold due to Transfer] atorvastatin 40 mg tab(s) (LIPITOR) 40 mg ORAL AT BEDTIME Emma (Res) [place] 40 mg at 12/24/17 2113 [MAR Hold due to Transfer] diphenhydrAMINE 25 mg (BENADRYL) 25 mg ORAL q 6 H PRN Emma (Res) [place] 25 mg at 12/25/17 0025 [MAR Hold due to Transfer] amLODIPine 10 mg tab(s) (NORVASC) 10 mg ORAL DAILY Quin (Res) [place] 10 mg at 12/25/17 0913 [MAR Hold due to Transfer] insulin glargine 14 Units pen (long acting) (LANTUS SOLOSTAR, BASAGLAR KWIKPEN) 14 Units SUBCUTANEOUS AT BEDTIME Quin (Res) [place] 14 Units at 12/24/172112 [MAR Hold due to Transfer] enoxaparin 40 mg injection (LOVENOX) 40 mg SUBCUTANEOUS DAILY Quin (Res) [place] 40 mg at 12/24/17 0849 [MAR Hold due to Transfer] 0.9% NaCl 3-5 mL 3-5 mL INTRAVENOUS q 12 H Quin (Res) [place] 3 mL at 12/24/172126 [MAR Hold due to Transfer] dextrose 40 % 15 g 15 g ORAL PRN Quin (Res) [place] Or [MAR Hold due to Transfer] glucagon 1 mg injection (GLUCAGEN) 1 mg INTRAMUSCULAR PRN Quin (Res) [place] Or [MAR Hold due to Transfer] dextrose 50% in water 25 mL syringe 12.5 g INTRAVENOUS PRN Quin (Res) [place] [MAR Hold due to Transfer] oxyCODONE-acetaminophen 5-325 mg 1-2 tablet (PERCOCET) 1-2 tablet ORAL q 6 H PRN Javier (Res) MD Kennedy 1 tablet at 12/25/17 1254 Allergies: ALLERGIES Allergen Reactions - Lipitor [Atorvastat* Other: See Comments fatigue - Penicillins Hives, Swelling Updated 12/22/[address] Chaparrita Hidalgo - Pravachol [Pravasta* Intolerance Fatigue, loss of appetite. - Prozac [Fluoxetine * Mental Status Change sleepiness DOS EXAM: Adequate NPO status: Yes Anesthetic risks, benefits, alternatives, personnel and consent discussed: Yes Patient agrees to proceed: Yes Previous Anesthesia: No history of adverse event. Airway Assessment: MP 3; Neck ROM: Full ROM without neurologic symptoms; Airway Evaluation: Small Mouth Opening Symptoms of Sleep Apnea: None Dentition: Poor dentition Multiple missing teeth Additional Physical Exam: Lungs: Patient health status unchanged since recent history and physical. See history and physical for exam findings. Cardiac: Patient health status unchanged since recent history and physical. See history and physical for exam findings. Additional Pertinent Findings: N/A Blood Products: Not anticipated for this procedure. Anesthetic Plan: General, Standard ASA Monitors Pain Management Plan: Parenteral or Oral and per Surgical Service ASA Class: 4 Other Medical Problems: None Chronic Beta Saurabh medication administered within 24 hours: N/A I have interviewed and examined the patient. I have reviewed the medical record and/or the pre-anesthesia evaluation, pertinent labs, and test results. Significant changes in the patient's condition since the History and Physical, not otherwise documented in primary service progress notes: No This contains updated information obtained within 48 hours of Surgery/Procedure. SIGNATURE: Kerwin Harding MD PATIENT NAME: Davina Green DATE: December 25, 2017 TIME: 3:05 PM CSN: [id number] ALLIED HEALTH Observed: 12/25/2017 Status: COMPLETED Source: [place] 2:57 PM [facility] REPOSITORY HNO ID: [id number] Author: Sheeba Olivera Coord Service: (none) Author Type: (none) Type: Allied Health Filed: 12/25/2017 2:59 PM Note Text: REGIONAL GUIDE NOTE SERVICE DATE: 12/25/2017 SERVICE TIME: 2:58 PM Home Care consult ordered by Emma Alvarez MD SIGNATURE: Sheeba Olivera Coord PATIENT NAME: Davina Green DATE: December 25, 2017 TIME: 2:58 PM CASE MANAGEM Observed: 12/25/2017 Status: COMPLETED Source: [place] 9:51 AM [facility] REPOSITORY HNO ID: [id number] Author: Gina Adorno RN Service: Care Management Author Type: Registered Nurse Type: Care Mgt Progress Note Filed: 12/25/2017 9:54 AM Note Text: CARE MANAGEMENT PROGRESS NOTE SERVICE DATE: 12/25/2017 SERVICE TIME: 9:51 AM LOS: 4 days Needs Prior to Discharge: To Be Determined Chart reviewed. Plan OR today for IANDD. Await OR findings for ID plan; possible PICC and [address] [facility] reviewing; has not yet accepted. Will require insurance pre-cert. SIGNATURE: Gina Adorno RN PATIENT NAME: Davina Green DATE: December 25, 2017 TIME: 9:51 AM PAGER/CONTACT #: [phone] PROGRESS Observed: 12/25/2017 Status: COMPLETED Source: [place] 9:16 AM [facility] REPOSITORY HNO ID: [id number] Author: Casey Flood MD Service: Hospital Medicine Author Type: Resident Type: Progress Notes Filed: 12/25/2017 1:42 PM Note Text: Attestation signed by Live Fabian at 12/25/2017 6:08 PM No new complaints. Awaiting IANDD today on left foot. No other complaints. Overall she is feeling well. NAD. Afebrile 153/84, 82, 16 Lungs: clear CV: RRR Left foot: Area of erythema continues to improve Labs: WBC=8.54 I saw and evaluated the patient. Discussed with the resident and agree with resident's findings and plan as documented in the resident's note. Plan: Will increase lisinopril to 30 mg daily, continue current antibiotics per ID. Live Fabian MD Hospital Medicine Service Progress Note Date of Service: December 25, 2017 Hospital Day: Day 4 Chief Complaint: Left Foot Swelling and Pain s/p 5th digit amputation 24 Hour Course/ Overnight Events: No acute events overnight. States the pain in her left foot is a 2/10 now. No other complaints at this time.MRI L foot done and showed early osteomyelitis. Pt going for I AND D today Subjective/ Review of Systems: 62 year old female with the PMH of diabetes, HTN, CVA presented with left foot pain due to left toe abcess since the amputation. 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 who had concerns for ongoing infection and wanted the abscess to be drained Medications: Current Facility-Administered Medications: vancomycin 750 mg in dextrose (iso-osmotic) 150 mL 0.75 g INTRAVENOUS q 12 HR buPROPion XL 150 mg tab(s) (WELLBUTRIN XL) 150 mg ORAL DAILY sertraline 100 mg tab(s) (ZOLOFT) 100 mg ORAL DAILY fluocinonide 0.05 % (LIDEX) TOPICAL DAILY lisinopril 20 mg tab(s) (ZESTRIL, PRINIVIL) 20 mg ORAL DAILY insulin lispro pen (rapid acting) (HumaLOG KWIKPEN) SUBCUTANEOUS w MEALS aztreonam iv piggyback 2 g in dextrose (iso-osmotic) 50 mL (AZACTAM) 2 g INTRAVENOUS q 8 H metroNIDAZOLE 500 mg PREMIX piggyback (FLAGYL) 500 mg INTRAVENOUS q 8 H NaCl 0.9% iv infusion 100 mL/hr INTRAVENOUS CONTINUOUS insulin lispro 5 Units pen (rapid acting) (HumaLOG KWIKPEN) 5 Units SUBCUTANEOUS w MEALS atorvastatin 40 mg tab(s) (LIPITOR) 40 mg ORAL AT BEDTIME diphenhydrAMINE 25 mg (BENADRYL) 25 mg ORAL q 6 H PRN amLODIPine 10 mg tab(s) (NORVASC) 10 mg ORAL DAILY insulin glargine 14 Units pen (long acting) (LANTUS SOLOSTAR, BASAGLAR KWIKPEN) 14 Units SUBCUTANEOUS AT BEDTIME enoxaparin 40 mg injection (LOVENOX) 40 mg SUBCUTANEOUS DAILY 0.9% NaCl 3-5 mL 3-5 mL INTRAVENOUS q 12 H dextrose 40 % 15 g 15 g ORAL PRN Or glucagon 1 mg injection (GLUCAGEN) 1 mg INTRAMUSCULAR PRN Or dextrose 50% in water 25 mL syringe 12.5 g INTRAVENOUS PRN oxyCODONE-acetaminophen 5-325 mg 1-2 tablet (PERCOCET) 1-2 tablet ORAL q 6 H PRN Physical Exam: BP 162/60 Pulse 79 Temp 37.1 ?C (98.8 ?F) (Oral) Resp 19 Ht 152.4 cm (5') Wt 56.7 kg (125 lb) SpO2 100% BMI 24.41 kg/m? Intake/Output Summary (Last 24 hours) at 12/25/17 1340 Last data filed at 12/25/17 0630 Gross per 24 hour Intake 1450 ml Output 1001 ml Net 449 ml General appearance: Well appearing, alert, in no acute distress, well-hydrated, well nourished. and Thin Head: normocephalic, atraumatic Neck: Supple, no adenopathy; thyroid symmetric, normal size, no bruits Back: Normal exam, no pain to palpation Lungs: Lungs clear to auscultation. No wheezing, rhonchi, rales Heart: RRR without murmur, gallop, or rubs. ?No ectopy Abdomen: ?Abdomen soft, non-tender. Bowel sounds normal. No masses, organomegaly Extremities: Positive findings: left foot 5th digit amputation, erythematous, swelling decreased, pain decreased Diabetic Foot: ?Deformities: left 5th digit amputation Neuro: Negative. Assessment and Plan Assessment AND Plan, all Hosp Problems Active Hospital Problems as of 12/25/2017 Noted - Resolved Hospital Diabetic ulcer of toe of left foot associated with type 2 diabetes mellitus, limited to breakdown of skin ([facility]) 10/17/2017 - Present Current Assessment AND Plan Diabetic Foot Ulcer with Surgical Site Infection s/p left 5th digit amputation -concern for osteomyelitis -appreciate ID recs: Vanc, Aztreonam and Flagyl . -appreciate Ortho recs: MRI foot shows focal fluid collection near the amputation site and erosive changes in the bone at the amputation site. ?-plan for IANDD 12/25 today -was NPO from midnight -Blood culture no growth at day 3 , No MRSA -possible PICC line placement depending on duration of antibiotics -PT/OT -wound care -percocet prn q6hr Diabetes ([facility]) 12/23/2017 - Present Current Assessment AND Plan -A1C 14.5% from October 2017 -lantus -SSI -monitor bg -diabetic education Essential hypertension, benign 06/22/2012 - Present Current Assessment AND Plan -continue home lisinopril and home amlodipine -increased lisinopril to 20 mg -hold HCTZ -follow BP's Hyperlipidemia with target LDL less than 100 03/18/2014 - Present Current Assessment AND Plan -atorvastatin 40mg Tobacco abuse 12/23/2017 - Present Current Assessment AND Plan -smoking cessation encouraged History of cerebrovascular accident (CVA) with residual deficit 04/20/2015 - Present Current Assessment AND Plan CVA and Carotid Stenosis -hold ASA and plavix for now -Pt going for I AND D today Labs: WBC (thou/cmm) Date Value 12/25/2017 8.54 RBC (mil/cmm) Date Value 12/25/2017 3.74 (L) Hemoglobin (g/dL) Date Value 12/08/2017 12.6 HGB (g/dL) Date Value 12/25/2017 10.9 (L) Hematocrit (%) Date Value 12/25/2017 34.2 MCV (fl) Date Value 12/25/2017 91.4 MCH (pg) Date Value 12/25/2017 29.1 MCHC (%) Date Value 12/25/2017 31.9 RDW-CV (%) Date Value 12/08/2017 14.1 Platelet Count (thou/cmm) Date Value 12/25/2017 404 (H) MPV (fl) Date Value 12/25/2017 9.5 Glucose (mg/dL) Date Value 12/25/2017 116 (H) BUN (mg/dL) Date Value 12/25/2017 15 Creatinine (mg/dL) Date Value 12/25/2017 0.84 Sodium (mEq/L) Date Value 12/25/2017 142 Potassium (mEq/L) Date Value 12/25/2017 3.8 Chloride (mEq/L) Date Value 12/25/2017 111 (H) CO2 (mEq/L) Date Value 12/25/2017 25 Protein, Total (g/dL) Date Value 12/21/2017 7.1 Albumin (g/dL) Date Value 12/21/2017 2.6 (L) Calcium (mg/dL) Date Value 12/25/2017 8.4 (L) Alkaline Phosphatase (U/L) Date Value 12/21/2017 100 Bilirubin, Total (mg/dL) Date Value 12/21/2017 0.2 AST (U/L) Date Value 12/21/2017 14 ALT (U/L) Date Value 12/21/2017 14 Hep C Antibody IA (no units) Date Value 11/04/2016 Negative URINLAYSIS pH Date Value Ref Range Status 09/24/2016 7.355 7.320 - 7.420 Final Specific [place], Ur Date Value Ref Range Status 12/22/2017 1.021 1.005 - 1.030 Final Glucose, Urine Date Value Ref Range Status 12/22/2017 NEGATIVE Negative mg/dL Final Bilirubin, Urine Date Value Ref Range Status 12/22/2017 NEGATIVE Negative Final Ketones, Urine Date Value Ref Range Status 12/22/2017 NEGATIVE Negative mg/dL Final Protein, Urine Date Value Ref Range Status 12/22/2017 300 (A) Negative mg/dL Final Urobilinogen, Urine Date Value Ref Range Status 12/22/2017 0.2 0.0 - 1.0 EU/dL Final WBC, Urine Date Value Ref Range Status 12/22/2017 0.4 0.0 - 5.0 /hpf Final Lines/ Drains/ Airways: Lines, Drains, and Airways Line Peripheral 12/22/172229 Short Right Forearm 20 Gauge 2 days DVT PPx: Lovenox 40mg Sub Q Daily Anticoagulant AND Antiplatelet Medications Start Dose Route Frequency Ordered Stop 12/21/170 enoxaparin 40 mg injection (LOVENOX) (Medical At Risk ) 40 mg SUBCUTANEOUS DAILY 12/21/17 2141 -- GI PPx: none Disposition: Anticipate discharge to: Referrral sent to [facility].waiting response Code Status: Code Status: FULL CODE SIGNATURE: Casey Flood MD PATIENT NAME: Davina Green DATE: December 25, 2017 TIME: 9:16 AM PAGER/CONTACT #: [phone] NUTRITION Observed: 12/25/2017 Status: COMPLETED Source: [place] 9:07 AM [facility] REPOSITORY HNO ID: [id number] Author: Johanne Patel Service: Nutrition Therapy Author Type: Registered Dietitian Type: Nutrition Filed: 12/25/2017 2:03 PM Note Text: NUTRITION THERAPY PROGRESS NOTE SERVICE DATE: 12/25/2017 SERVICE TIME: 11:25 RECOMMENDED DIAGNOSIS: NO MALNUTRITION IDENTIFIED per Registered Dietitian on 12/22/17 NUTRITION CARE PLAN Problem, Etiology and Signs/Symptoms: Increased nutrient needs related to toe wound as evidenced by non-healing toe post amputation. Intervention: 1. Encouraged PO intake and protein with each meal to help wound healing. 2. Encouraged nutritional supplements if PO intake declines. Monitor and Evaluation: Goal: Meet >75% of estimated needs Monitor fluid/electrolyte balance Monitor labs, I/Os, vital signs, weight Discharge Nutrition Recommendations: Diet: Carbohydrate Controlled Reason for Visit: Follow-up Per HPI: This patient is a 62 year old female with the PMH of diabetes, HTN, CVA presented with left foot pain due to left toe abcess since the amputation. 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 who had concerns for ongoing infection and wanted the abscess to be drained. The patient says that she noticed ankle and toe swelling since the last 2 days. She rated the pain as 10 in intensity, sharp in nature and constant, relieved by oxycodone. We put her on PO percocet for the pain. She did notice the skin was erythematous. No history of fever, chills, NVD. She does complain of ongoing dizziness ever since she had carotid surgery for CVA . Reports 30 lbs weight loss in the last 6 months despite having normal appetite. Interval History: Wound Care following for left 5th toe amputation site.PT and OT recommending home discharge. Plan for OR today. Awaiting OR findings for ID plan per care management. Present Diet Order: NPO as of 12/25. Previously on Carbohydrate Controlled Diet. Nutritional Intake: >75% estimated energy needs over the past 3 day(s) Patient reported that she continues to eat well. Encouraged patient to consume a source of protein with each meal to promote wound healing. Patient was encouraged to ask for supplements if PO intake decreases. Admission Weight: 56.7 kg (125 lb) Current Weight: 56.7 kg (125 lb) Body mass index is 24.41 kg/m?. normal Current Facility-Administered Medications: vancomycin 750 mg in dextrose (iso-osmotic) 150 mL 0.75 g INTRAVENOUS q 12 HR buPROPion XL 150 mg tab(s) (WELLBUTRIN XL) 150 mg ORAL DAILY sertraline 100 mg tab(s) (ZOLOFT) 100 mg ORAL DAILY fluocinonide 0.05 % (LIDEX) TOPICAL DAILY lisinopril 20 mg tab(s) (ZESTRIL, PRINIVIL) 20 mg ORAL DAILY insulin lispro pen (rapid acting) (HumaLOG KWIKPEN) SUBCUTANEOUS w MEALS aztreonam iv piggyback 2 g in dextrose (iso-osmotic) 50 mL (AZACTAM) 2 g INTRAVENOUS q 8 H metroNIDAZOLE 500 mg PREMIX piggyback (FLAGYL) 500 mg INTRAVENOUS q 8 H NaCl 0.9% iv infusion 100 mL/hr INTRAVENOUS CONTINUOUS insulin lispro 5 Units pen (rapid acting) (HumaLOG KWIKPEN) 5 Units SUBCUTANEOUS w MEALS atorvastatin 40 mg tab(s) (LIPITOR) 40 mg ORAL AT BEDTIME diphenhydrAMINE 25 mg (BENADRYL) 25 mg ORAL q 6 H PRN amLODIPine 10 mg tab(s) (NORVASC) 10 mg ORAL DAILY insulin glargine 14 Units pen (long acting) (LANTUS SOLOSTAR, BASAGLAR KWIKPEN) 14 Units SUBCUTANEOUS AT BEDTIME enoxaparin 40 mg injection (LOVENOX) 40 mg SUBCUTANEOUS DAILY 0.9% NaCl 3-5 mL 3-5 mL INTRAVENOUS q 12 H dextrose 40 % 15 g 15 g ORAL PRN Or glucagon 1 mg injection (GLUCAGEN) 1 mg INTRAMUSCULAR PRN Or dextrose 50% in water 25 mL syringe 12.5 g INTRAVENOUS PRN oxyCODONE-acetaminophen 5-325 mg 1-2 tablet (PERCOCET) 1-2 tablet ORAL q 6 H PRN Intake/Output 12/21/17 07 - 12/22/17 0659 12/22/17 07 - 12/23/17 0659 12/23/17 07 - 12/24/17 0659 12/24/17 07 - 12/25/17 0659 12/25/17 07 - 12/26/17 0659 Intake (ml) -- 300 1000 1450 0 Output (ml) 600 1200 1001 1001 0 Net (ml) -600 -900 -1 449 0 Surgical Incision 12/21/17 Toes - Left Foot (Active) Dressing Status Changed 12/25/2017 6:51 AM Frequency of Dressing Change Daily 12/24/2017 8:00 PM Dressing Change Due 12/25/14 12/24/2017 8:00 PM Dressing /Treatment Type Kerlix Roll;Gauze/ Packing Plain 12/24/2017 8:00 PM Incision Closures Sutures 12/24/2017 8:00 PM Drainage Description None 12/24/2017 8:00 PM Drainage Amount None 12/24/2017 8:00 PM Edges Red;Intact 12/24/2017 8:00 PM Hematoma Yes 12/24/2017 8:00 PM Number of days: 4 MNT Billing Type: Re-assess/15 min 3 units SIGNATURE: JOHANNE PATEL RD PATIENT NAME: Davina Green DATE: December 25, 2017 TIME: 9:08 AM PAGER: [phone] PROGRESS Observed: 12/25/2017 Status: COMPLETED Source: [place] 8:21 AM [facility] OTHER [facility] REPOSITORY O ID: [id number] Author: Caitlyn Hidalgo Service: Infectious Disease Author Type: Physician Type: Progress Notes Filed: 12/25/2017 8:28 AM Note Text: INFECTIOUS DISEASE CONSULT PROGRESS NOTE SERVICE DATE: 12/25/2017 SERVICE TIME: 8:23 AM Subjective INTERVAL HISTORY: Awake, says pain in L foot is 2 out of 10. OR plans for today noted. PERTINENT ROS: Denies fever or chills. Current Facility-Administered Medications: vancomycin 750 mg in dextrose (iso-osmotic) 150 mL 0.75 g INTRAVENOUS q 12 HR buPROPion XL 150 mg tab(s) (WELLBUTRIN XL) 150 mg ORAL DAILY sertraline 100 mg tab(s) (ZOLOFT) 100 mg ORAL DAILY fluocinonide 0.05 % (LIDEX) TOPICAL DAILY lisinopril 20 mg tab(s) (ZESTRIL, PRINIVIL) 20 mg ORAL DAILY insulin lispro pen (rapid acting) (HumaLOG KWIKPEN) SUBCUTANEOUS w MEALS aztreonam iv piggyback 2 g in dextrose (iso-osmotic) 50 mL (AZACTAM) 2 g INTRAVENOUS q 8 H metroNIDAZOLE 500 mg PREMIX piggyback (FLAGYL) 500 mg INTRAVENOUS q 8 H NaCl 0.9% iv infusion 100 mL/hr INTRAVENOUS CONTINUOUS insulin lispro 5 Units pen (rapid acting) (HumaLOG KWIKPEN) 5 Units SUBCUTANEOUS w MEALS atorvastatin 40 mg tab(s) (LIPITOR) 40 mg ORAL AT BEDTIME diphenhydrAMINE 25 mg (BENADRYL) 25 mg ORAL q 6 H PRN amLODIPine 10 mg tab(s) (NORVASC) 10 mg ORAL DAILY insulin glargine 14 Units pen (long acting) (LANTUS SOLOSTAR, BASAGLAR KWIKPEN) 14 Units SUBCUTANEOUS AT BEDTIME enoxaparin 40 mg injection (LOVENOX) 40 mg SUBCUTANEOUS DAILY 0.9% NaCl 3-5 mL 3-5 mL INTRAVENOUS q 12 H dextrose 40 % 15 g 15 g ORAL PRN Or glucagon 1 mg injection (GLUCAGEN) 1 mg INTRAMUSCULAR PRN Or dextrose 50% in water 25 mL syringe 12.5 g INTRAVENOUS PRN oxyCODONE-acetaminophen 5-325 mg 1-2 tablet (PERCOCET) 1-2 tablet ORAL q 6 H PRN Objective PHYSICAL EXAM: Vital Signs: BP 153/84 Pulse 82 Temp 37.1 ?C (98.8 ?F) (Oral) Resp 16 Ht 152.4 cm (5') Wt 56.7 kg (125 lb) SpO2 100% BMI 24.41 kg/m? HEENT moist mouth Neck supple Lungs CTA anteriorly Heart S1 S2 Abdomen soft, flat, NT Extremities L foot erythema seems decreased DATA: Diagnostic Tests Reviewed for Today's Visit: Creatinine 0.8, WBC 8.5 Impression/Recommendations Tobacco abuse POA: Unknown Assessment AND Plan: Advised cessation. Foot abscess, left POA: Unknown Assessment AND Plan: MRI shows 3.5 cm abscess, going to OR today for debridement. Please send cultures from OR. Continue vanco, aztreonam and flagyl for now. I anticipate she will need a PICC and 6 weeks of IV therapy but this isn't determined yet, await OR findings. Penicillin allergy POA: Yes Assessment AND Plan: Complicates management. SIGNATURE: Caitlyn Hidalgo MD, MS, FACP, FIDSA PATIENT NAME: Davina Green DATE: December 25, 2017 TIME: 8:22 AM PAGER/CONTACT #: [phone] PROGRESS Observed: 12/25/2017 Status: COMPLETED Source: [place] 6:13 AM [facility] OTHER [facility] REPOSITORY HNO ID: [id number] Author: Yves Gupta Service: Orthopaedic Surgery Author Type: Resident Type: Progress Notes Filed: 12/25/2017 6:19 AM Note Text: ORTHOPAEDIC SURGERY DAILY PROGRESS NOTE Patient Name: Davina Green Date of Evaluation: 12/25/2017 Admission Date: 12/21/2017 Time of Evaluation: 6:14 AM ASSESSMENT: 62 year old female s/p L 5th ray resection with post operative infection and fluid collection PLAN: -Medical management per primary -Pain Control -PT/OT: Weight Bearing As Tolerated LLE -DVT Prophylaxis: Lovenox 40mg SQ daily x 21 days total. -Ice/elevate LLE -Antibiotics: IV abx per ID -MRI results discussed with Dr. Garrett plan for IANDD today INTERVAL HPI: Patient monitored, no new events overnight. Well controlled pain. Has been NPO since midnight. OBJECTIVE: BP 153/84 Pulse 82 Temp 37.1 ?C (98.8 ?F) (Oral) Resp 16 Ht 152.4 cm (5') Wt 56.7 kg (125 lb) SpO2 100% BMI 24.41 kg/m? Intake/Output Summary (Last 24 hours) 12/24 2300 - 12/25 0659 In: 1150 [IV:1150] Out: 1000 [Urine:1000] Exam: General: NAD, AAOx3 Extremities: Left Lower Extremity: Dressing clean, dry and intact. Surgical site skin edges well approximated and minimal drainage from incision site, erythema circumferentially around incision site SILT S/S/SP/DP/T Motor intact DF/PF/EHL DP pulse palpable, foot warm with pulses Compartments soft, compressible. Tolerates passive stretch of digits. Labs: WBC (thou/cmm) Date Value 12/25/2017 8.54 RBC (mil/cmm) Date Value 12/25/2017 3.74 (L) Hemoglobin (g/dL) Date Value 12/08/2017 12.6 HGB (g/dL) Date Value 12/25/2017 10.9 (L) Hematocrit (%) Date Value 12/25/2017 34.2 MCV (fl) Date Value 12/25/2017 91.4 MCH (pg) Date Value 12/25/2017 29.1 MCHC (%) Date Value 12/25/2017 31.9 RDW-CV (%) Date Value 12/08/2017 14.1 Platelet Count (thou/cmm) Date Value 12/25/2017 404 (H) MPV (fl) Date Value 12/25/2017 9.5 Glucose (mg/dL) Date Value 12/25/2017 116 (H) BUN (mg/dL) Date Value 12/25/2017 15 Creatinine (mg/dL) Date Value 12/25/2017 0.84 Sodium (mEq/L) Date Value 12/25/2017 142 Potassium (mEq/L) Date Value 12/25/2017 3.8 Chloride (mEq/L) Date Value 12/25/2017 111 (H) CO2 (mEq/L) Date Value 12/25/2017 25 Protein, Total (g/dL) Date Value 12/21/2017 7.1 Albumin (g/dL) Date Value 12/21/2017 2.6 (L) Calcium (mg/dL) Date Value 12/25/2017 8.4 (L) Alkaline Phosphatase (U/L) Date Value 12/21/2017 100 Bilirubin, Total (mg/dL) Date Value 12/21/2017 0.2 AST (U/L) Date Value 12/21/2017 14 ALT (U/L) Date Value 12/21/2017 14 Hep C Antibody IA (no units) Date Value 11/04/2016 Negative Imaging: MRI foot shows focal fluid collection near the amputation site and erosive changes in the bone at the amputation site Yves Gupta MD 12/25/2017 6:13 AM HEMOGRAM Collected: 12/25/2017 Status: F Source: [facility] 3:15 AM HEALTH SYSTEM REPOSITORY TYPE CODE TESTS RESULT OUT OF REFERENCE UNITS RANGE LAB WBC(LOINC) 3.98-10.04 thou/cmm WBC 8.54 LAB RBC(LOINC) 3.93-5.22 mil/cmm Low RBC 3.74 LAB HGB(LOINC) 11.2-15.7 g/dL Low Hgb 10.9 LAB HCT(LOINC) 34.1-44.9 % Hct 34.2 LAB MCV(LOINC) 79.4-94.8 fl MCV 91.4 LAB MCH(LOINC) 25.6-32.2 pg MCH 29.1 LAB MCHC(LOINC) 31.6-34.8 % MCHC 31.9 LAB RDW(LOINC) 11.7-14.4 % RDW 14.2 LAB RDWSD(LOINC 36.4-46.3 fl ) High RDW SD 47.8 LAB PLT(LOINC) 182-369 thou/cmm High Platelet 404 LAB MPV(LOINC) 9.4-12.3 fl MPV 9.5 Performed By: #### CBC1 #### [facility] [address] [place] [id number] BASIC PANEL Collected: 12/25/2017 Status: F Source: [facility] 3:15 AM HEALTH SYSTEM REPOSITORY TYPE CODE TESTS RESULT OUT OF REFERENCE UNITS RANGE LAB NA(LOINC) 136-145 mEq/L Sodium Blood 142 LAB K(LOINC) 3.5-5.1 mEq/L Potassium Blood 3.8 LAB CL(LOINC) 98-107 mEq/L Chloride High Blood 111 LAB CO2(LOINC) 21-32 mEq/L CO2 Blood 25 LAB GLU(LOINC) 70-99 mg/dL Glucose High Blood 116 LAB BUN(LOINC) 7-18 mg/dL BUN Blood 15 LAB CREA(LOINC 0.51-0.95 mg/dL ) Creatinine Blood 0.84 LAB CA(LOINC) 8.5-10.1 mg/dL Low Calcium Blood 8.4 LAB ANGAP(LOIN 8-16 C) Anion Gap 10 Performed By: #### P8 #### [facility] [address] [id number] PROGRESS Observed: 12/24/2017 Status: COMPLETED Source: [place] 10:17 AM CLINIC OTHER CAMPUS REPOSITORY O ID: [id number] Author: Casey Flood MD Service: Hospital Medicine Author Type: Resident Type: Progress Notes Filed: 12/24/2017 1:01 PM Note Text: Attestation signed by Live Fabian at 12/24/2017 1:56 PM History reviewed, patient examined. 62 year old white female with PMH + for DM, hypertension admitted with left foot pain s/p 5th toe amputation. Dx with cellulitis/abscess. Currently states she is feeling better. No new complaints. NAD. Afebrile. 132/72, 88, 16 Lungs: Clear CV: RRR Abd: Soft w/o tenderness, bruits Ext: Area of erythema appears decreased when compared to outline of region previously marked Labs: Reviewed Imaging studies reviewed I saw and evaluated the patient. Discussed with the resident and agree with resident's findings and plan as documented in the resident's note. Appreciate ID, ortho input. Plan IANDD on 12/25 Live Fabian MD Hospital Medicine Service Progress Note Date of Service: December 24, 2017 Hospital Day: Day 3 Chief Complaint: Left Foot Swelling and Pain s/p 5th digit amputation 24 Hour Course/ Overnight Events: No acute events overnight. States the pain in her left foot is a 2/10 now. No other complaints at this time. Vancomycin level was high 24 so night dose was held. MRI L foot done and showed early osteomyelitis. Subjective/ Review of Systems: 62 year old female with the PMH of diabetes, HTN, CVA presented with left foot pain due to left toe abcess since the amputation. 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 who had concerns for ongoing infection and wanted the abscess to be drained Medications: Current Facility-Administered Medications: vancomycin 750 mg in dextrose (iso-osmotic) 150 mL 0.75 g INTRAVENOUS q 12 HR lisinopril 20 mg tab(s) (ZESTRIL, PRINIVIL) 20 mg ORAL DAILY insulin lispro pen (rapid acting) (HumaLOG KWIKPEN) SUBCUTANEOUS w MEALS aztreonam iv piggyback 2 g in dextrose (iso-osmotic) 50 mL (AZACTAM) 2 g INTRAVENOUS q 8 H metroNIDAZOLE 500 mg PREMIX piggyback (FLAGYL) 500 mg INTRAVENOUS q 8 H NaCl 0.9% iv infusion 100 mL/hr INTRAVENOUS CONTINUOUS insulin lispro 5 Units pen (rapid acting) (HumaLOG KWIKPEN) 5 Units SUBCUTANEOUS w MEALS atorvastatin 40 mg tab(s) (LIPITOR) 40 mg ORAL AT BEDTIME diphenhydrAMINE 25 mg (BENADRYL) 25 mg ORAL q 6 H PRN amLODIPine 10 mg tab(s) (NORVASC) 10 mg ORAL DAILY insulin glargine 14 Units pen (long acting) (LANTUS SOLOSTAR, BASAGLAR KWIKPEN) 14 Units SUBCUTANEOUS AT BEDTIME enoxaparin 40 mg injection (LOVENOX) 40 mg SUBCUTANEOUS DAILY 0.9% NaCl 3-5 mL 3-5 mL INTRAVENOUS q 12 H dextrose 40 % 15 g 15 g ORAL PRN Or glucagon 1 mg injection (GLUCAGEN) 1 mg INTRAMUSCULAR PRN Or dextrose 50% in water 25 mL syringe 12.5 g INTRAVENOUS PRN oxyCODONE-acetaminophen 5-325 mg 1-2 tablet (PERCOCET) 1-2 tablet ORAL q 6 H PRN Physical Exam: BP 158/83 Pulse 85 Temp 36.7 ?C (98.1 ?F) (Oral) Resp 16 Ht 152.4 cm (5') Wt 56.7 kg (125 lb) SpO2 97% BMI 24.41 kg/m? No intake or output data in the 24 hours ending 12/24/17 1300 General appearance: Well appearing, alert, in no acute distress, well-hydrated, well nourished. and Thin Head: normocephalic, atraumatic Neck: Supple, no adenopathy; thyroid symmetric, normal size, no bruits Back: Normal exam, no pain to palpation Lungs: Lungs clear to auscultation. No wheezing, rhonchi, rales Heart: RRR without murmur, gallop, or rubs. No ectopy Abdomen: Abdomen soft, non-tender. Bowel sounds normal. No masses, organomegaly Extremities: Positive findings: left foot 5th digit amputation, erythematous, swelling decreased, pain decreased Diabetic Foot: Deformities: left 5th digit amputation Neuro: Negative. Assessment and Plan Assessment AND Plan, all Hosp Problems Active Hospital Problems as of 12/24/2017 Noted - Resolved Hospital Diabetic ulcer of toe of left foot associated with type 2 diabetes mellitus, limited to breakdown of skin ([facility]) 10/17/2017 - Present Current Assessment AND Plan Diabetic Foot Ulcer with Surgical Site Infection s/p left 5th digit amputation -concern for osteomyelitis -appreciate ID recs: Vanc, Aztreonam and Flagyl .Vanco levels were 24 so night dose was held. -appreciate Ortho recs: MRI foot shows focal fluid collection near the amputation site and erosive changes in the bone at the amputation site. ?-plan for IANDD 12/25 afternoon NPO from midnight -Blood culture no growth at day 2 , No MRSA -possible PICC line placement depending on duration of antibiotics -PT/OT -wound care -percocet prn q6hr Diabetes (HCC) 12/23/2017 - Present Current Assessment AND Plan -A1C 14.5% from October 2017 -lantus -SSI -monitor bg -diabetic education Essential hypertension, benign 06/22/2012 - Present Current Assessment AND Plan -continue home lisinopril and home amlodipine -increased lisinopril to 20 mg -hold HCTZ -follow BP's Gangrene (HCC) 11/20/2017 - Present Current Assessment AND Plan ? Wound care ? Blood culture ? Wound culture Hyperlipidemia with target LDL less than 100 03/18/2014 - Present Current Assessment AND Plan -atorvastatin 40mg Tobacco abuse 12/23/2017 - Present Current Assessment AND Plan -smoking cessation encouraged History of cerebrovascular accident (CVA) with residual deficit 04/20/2015 - Present Current Assessment AND Plan CVA and Carotid Stenosis -hold ASA and plavix for now pending Ortho's evaluation -if patient does not need to go to the OR will restart ASA/plavix * (Principal)Abscess 12/21/2017 - Present Labs: WBC (thou/cmm) Date Value 12/24/2017 8.20 RBC (mil/cmm) Date Value 12/24/2017 3.33 (L) Hemoglobin (g/dL) Date Value 12/08/2017 12.6 HGB (g/dL) Date Value 12/24/2017 9.9 (L) Hematocrit (%) Date Value 12/24/2017 29.7 (L) MCV (fl) Date Value 12/24/2017 89.2 MCH (pg) Date Value 12/24/2017 29.7 MCHC (%) Date Value 12/24/2017 33.3 RDW-CV (%) Date Value 12/08/2017 14.1 Platelet Count (thou/cmm) Date Value 12/24/2017 358 MPV (fl) Date Value 12/24/2017 9.6 Glucose (mg/dL) Date Value 12/24/2017 166 (H) BUN (mg/dL) Date Value 12/24/2017 21 (H) Creatinine (mg/dL) Date Value 12/24/2017 0.90 Sodium (mEq/L) Date Value 12/24/2017 138 Potassium (mEq/L) Date Value 12/24/2017 3.7 Chloride (mEq/L) Date Value 12/24/2017 110 (H) CO2 (mEq/L) Date Value 12/24/2017 25 Protein, Total (g/dL) Date Value 12/21/2017 7.1 Albumin (g/dL) Date Value 12/21/2017 2.6 (L) Calcium (mg/dL) Date Value 12/24/2017 8.4 (L) Alkaline Phosphatase (U/L) Date Value 12/21/2017 100 Bilirubin, Total (mg/dL) Date Value 12/21/2017 0.2 AST (U/L) Date Value 12/21/2017 14 ALT (U/L) Date Value 12/21/2017 14 Hep C Antibody IA (no units) Date Value 11/04/2016 Negative URINLAYSIS pH Date Value Ref Range Status 09/24/2016 7.355 7.320 - 7.420 Final Specific [place], Ur Date Value Ref Range Status 12/22/2017 1.021 1.005 - 1.030 Final Glucose, Urine Date Value Ref Range Status 12/22/2017 NEGATIVE Negative mg/dL Final Bilirubin, Urine Date Value Ref Range Status 12/22/2017 NEGATIVE Negative Final Ketones, Urine Date Value Ref Range Status 12/22/2017 NEGATIVE Negative mg/dL Final Protein, Urine Date Value Ref Range Status 12/22/2017 300 (A) Negative mg/dL Final Urobilinogen, Urine Date Value Ref Range Status 12/22/2017 0.2 0.0 - 1.0 EU/dL Final WBC, Urine Date Value Ref Range Status 12/22/2017 0.4 0.0 - 5.0 /hpf Final Lines/ Drains/ Airways: Lines, Drains, and Airways Line Peripheral 12/22/172229 Short Right Forearm 20 Gauge 1 day DVT PPx: Lovenox 40mg Sub Q Daily Anticoagulant AND Antiplatelet Medications Start Dose Route Frequency Ordered Stop 12/21/172199 enoxaparin 40 mg injection (LOVENOX) (Medical At Risk ) 40 mg SUBCUTANEOUS DAILY 12/21/172140 -- Disposition: Anticipate discharge to: Referrral sent to [facility].waiting response. Code Status: Code Status: Other: none on file SIGNATURE: Casey Flood MD PATIENT NAME: Davina Green DATE: December 24, 2017 TIME: 10:17 AM PAGER/CONTACT #: [phone] PROGRESS Observed: 12/24/2017 Status: COMPLETED Source: [facility] 6:38 AM CLINIC OTHER CAMPUS REPOSITORY O ID: [id number] Author: Velma Durbin Service: Orthopaedic Surgery Author Type: Resident Type: Progress Notes Filed: 12/24/2017 8:39 AM Note Text: ORTHOPAEDIC SURGERY DAILY PROGRESS NOTE Patient Name: Davina Green Date of Evaluation: 12/24/2017 Admission Date: 12/21/2017 Time of Evaluation: 7:01 AM ASSESSMENT: 62 year old female s/p L 5th ray resection with post operative infection and fluid collection PLAN: -Medical management per primary -Pain Control -PT/OT: Weight Bearing As Tolerated LLE -DVT Prophylaxis: Lovenox 40mg SQ daily x 21 days total. -Ice/elevate LLE -Antibiotics: IV abx per ID -MRI results discussed with Dr. Garrett plan for IANDD 12/25 afternoon INTERVAL HPI: Patient monitored, no new events overnight. Patient states that they are comfortable. Well Controlled pain. Denies nausea/vomitting. OBJECTIVE: BP 132/72 Pulse 88 Temp 37.4 ?C (99.3 ?F) (Oral) Resp 16 Ht 152.4 cm (5') Wt 56.7 kg (125 lb) SpO2 98% BMI 24.41 kg/m? Intake/Output Summary (Last 24 hours) No intake/output data recorded. Exam: General: NAD, AAOx3 Extremities: Left Lower Extremity: Dressing clean, dry and intact. Surgical site skin edges well approximated and minimal drainage from incision site, erythema circumferentially around incision site SILT S/S/SP/DP/T Motor intact DF/PF/EHL DP pulse palpable, foot warm with pulses Compartments soft, compressible. Tolerates passive stretch of digits. Labs: WBC (thou/cmm) Date Value 12/24/2017 8.20 RBC (mil/cmm) Date Value 12/24/2017 3.33 (L) Hemoglobin (g/dL) Date Value 12/08/2017 12.6 HGB (g/dL) Date Value 12/24/2017 9.9 (L) Hematocrit (%) Date Value 12/24/2017 29.7 (L) MCV (fl) Date Value 12/24/2017 89.2 MCH (pg) Date Value 12/24/2017 29.7 MCHC (%) Date Value 12/24/2017 33.3 RDW-CV (%) Date Value 12/08/2017 14.1 Platelet Count (thou/cmm) Date Value 12/24/2017 358 MPV (fl) Date Value 12/24/2017 9.6 Glucose (mg/dL) Date Value 12/24/2017 166 (H) BUN (mg/dL) Date Value 12/24/2017 21 (H) Creatinine (mg/dL) Date Value 12/24/2017 0.90 Sodium (mEq/L) Date Value 12/24/2017 138 Potassium (mEq/L) Date Value 12/24/2017 3.7 Chloride (mEq/L) Date Value 12/24/2017 110 (H) CO2 (mEq/L) Date Value 12/24/2017 25 Protein, Total (g/dL) Date Value 12/21/2017 7.1 Albumin (g/dL) Date Value 12/21/2017 2.6 (L) Calcium (mg/dL) Date Value 12/24/2017 8.4 (L) Alkaline Phosphatase (U/L) Date Value 12/21/2017 100 Bilirubin, Total (mg/dL) Date Value 12/21/2017 0.2 AST (U/L) Date Value 12/21/2017 14 ALT (U/L) Date Value 12/21/2017 14 Hep C Antibody IA (no units) Date Value 11/04/2016 Negative URINLAYSIS pH Date Value Ref Range Status 09/24/2016 7.355 7.320 - 7.420 Final Specific [place], Ur Date Value Ref Range Status 12/22/2017 1.021 1.005 - 1.030 Final Glucose, Urine Date Value Ref Range Status 12/22/2017 NEGATIVE Negative mg/dL Final Bilirubin, Urine Date Value Ref Range Status 12/22/2017 NEGATIVE Negative Final Ketones, Urine Date Value Ref Range Status 12/22/2017 NEGATIVE Negative mg/dL Final Protein, Urine Date Value Ref Range Status 12/22/2017 300 (A) Negative mg/dL Final Urobilinogen, Urine Date Value Ref Range Status 12/22/2017 0.2 0.0 - 1.0 EU/dL Final WBC, Urine Date Value Ref Range Status 12/22/2017 0.4 0.0 - 5.0 /hpf Final Imaging: MRI foot shows focal fluid collection near the amputation site and erosive changes in the bone at the amputation site Velma Durbin MD HEMOGRAM Collected: 12/24/2017 Status: F Source: [facility] 4:30 AM HEALTH SYSTEM REPOSITORY TYPE CODE TESTS RESULT OUT OF REFERENCE UNITS RANGE LAB WBC(LOINC) 3.98-10.04 thou/cmm WBC 8.20 LAB RBC(LOINC) 3.93-5.22 mil/cmm Low RBC 3.33 LAB HGB(LOINC) 11.2-15.7 g/dL Low Hgb 9.9 LAB HCT(LOINC) 34.1-44.9 % Low Hct 29.7 LAB MCV(LOINC) 79.4-94.8 fl MCV 89.2 LAB MCH(LOINC) 25.6-32.2 pg MCH 29.7 LAB MCHC(LOINC) 31.6-34.8 % MCHC 33.3 LAB RDW(LOINC) 11.7-14.4 % RDW 14.1 LAB RDWSD(LOINC 36.4-46.3 fl ) RDW SD 46.1 LAB PLT(LOINC) 182-369 thou/cmm Platelet 358 LAB MPV(LOINC) 9.4-12.3 fl MPV 9.6 Performed By: #### CBC1 #### [place] [address] BASIC PANEL Collected: 12/24/2017 Status: F Source: [facility] 4:30 AM HEALTH SYSTEM REPOSITORY TYPE CODE TESTS RESULT OUT OF REFERENCE UNITS RANGE LAB NA(LOINC) 136-145 mEq/L Sodium Blood 138 LAB K(LOINC) 3.5-5.1 mEq/L Potassium Blood 3.7 LAB CL(LOINC) 98-107 mEq/L Chloride High Blood 110 LAB CO2(LOINC) 21-32 mEq/L CO2 Blood 25 LAB GLU(LOINC) 70-99 mg/dL Glucose High Blood 166 LAB BUN(LOINC) 7-18 mg/dL BUN High Blood 21 LAB CREA(LOINC 0.51-0.95 mg/dL ) Creatinine Blood 0.90 LAB CA(LOINC) 8.5-10.1 mg/dL Low Calcium Blood 8.4 LAB ANGAP(LOIN 8-16 C) Low Anion Gap 7 Performed By: #### P8 #### [place] [address] VANCOMYCIN,TROUGH Collected: Status: F Source: [place] 12/23/2017 8:28 PM [facility] REPOSITORY TYPE CODE TESTS RESULT OUT OF RANGE REFERENCE UNITS LAB VANCT(LOINC 10.0-20.0 mg/L ) High alert 24.0 Vancomycin,T rough Result Comment: RESULT RECHECKED Performed By: #### VANCT #### [place] [address] CASE MANAGEM Observed: 12/23/2017 Status: COMPLETED Source: [place] 10:29 AM CLINIC OTHER CAMPUS REPOSITORY HNO ID: [id number] Author: Africa (Rn) INES Chou Service: (none) Author Type: Registered Nurse Type: Care Mgt Progress Note Filed: 12/23/2017 10:30 AM Note Text: CARE MANAGEMENT PROGRESS NOTE SERVICE DATE: 12/23/2017 SERVICE TIME: 10:29 AM LOS: 2 days Needs Prior to Discharge: To Be Determined Waiting on response from [facility] re acceptance. SIGNATURE: Africa Chou RN PATIENT NAME: Davina Green DATE: December 23, 2017 TIME: 10:29 AM PAGER/CONTACT #: [phone] PROGRESS Observed: 12/23/2017 Status: COMPLETED Source: [place] 10:[address] [facility] OTHER CAMPUS REPOSITORY O ID: [id number] Author: See Burris DO Service: Hospital Medicine Author Type: Resident Type: Progress Notes Filed: 12/23/2017 2:25 PM Note Text: Attestation signed by Nilson Dsouza at 12/23/2017 10:50 PM I saw and evaluated the patient. I discussed the patient's case with the resident and agree with resident's findings and plan as documented in the resident's note. Patient at this time denies fever, chills, nausea, vomiting. Does not report significant pain in the left foot. MRI pending. She does not appear to have good insight into the control of her diabetes. When questioned what her blood sugars run at home she states good but does not give me specific numbers. Previous records indicate poor control with A1c of 12 or higher. Blood sugars in the hospital or action under fair control with prescribed doses of insulin. Suspect noncompliance in the outpatient setting. Patient Active Hospital Problem List: Diabetic ulcer of toe of left foot associated with type 2 diabetes mellitus, limited to breakdown of skin (HCC) (10/17/2017) Diabetes (HCC) (12/23/2017) Essential hypertension, benign (06/22/2012) Gangrene (HCC) (11/20/2017) Hyperlipidemia with target LDL less than 100 (03/18/2014) Tobacco abuse (12/23/2017) History of cerebrovascular accident (CVA) with residual deficit (04/20/2015) Plan: ?MRI results pending at this time. Further orthopedic recommendations pending MRI. ?Continue antibiotics per ID. ?Glycemic control. ?Encouraged smoking cessation. PCP: SHEA Addison MD, MD December 23, 2017 10:47 PM Hospital Medicine Service Progress Note Date of Service: December 23, 2017 Hospital Day: Day 2 Chief Complaint: Left Foot Swelling and Pain s/p 5th digit amputation Initial HPI This patient is a 62 year old female with the PMH of diabetes, HTN, CVA presented with left foot pain due to left toe abcess since the amputation. 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 who had concerns for ongoing infection and wanted the abscess to be drained. The patient says that she noticed ankle and toe swelling since the last 2 days. She rated the pain as 10 in intensity, sharp in nature and constant, relieved by oxycodone. We put her on PO percocet for the pain. She did notice the skin was erythematous. No history of fever, chills, NVD. She does complain of ongoing dizziness ever since she had carotid surgery for CVA . Reports 30 lbs weight loss in the last 6 months despite having normal appetite. Subjective/ Review of Systems: No acute events overnight. States the pain in her left foot is a 2/10 now. No other complaints at this time. Awaiting MRI results of left foot. Medications: Current Facility-Administered Medications: [START ON 12/24/2017] lisinopril 20 mg tab(s) (ZESTRIL, PRINIVIL) 20 mg ORAL DAILY lisinopril 10 mg tab(s) (ZESTRIL, PRINIVIL) 10 mg ORAL ONCE insulin lispro pen (rapid acting) (HumaLOG KWIKPEN) SUBCUTANEOUS w MEALS vancomycin iv piggyback 1 g in D5W 200 mL (VANCOCIN) 1 g INTRAVENOUS q 12 HR aztreonam iv piggyback 2 g in dextrose (iso-osmotic) 50 mL (AZACTAM) 2 g INTRAVENOUS q 8 H metroNIDAZOLE 500 mg PREMIX piggyback (FLAGYL) 500 mg INTRAVENOUS q 8 H NaCl 0.9% iv infusion 100 mL/hr INTRAVENOUS CONTINUOUS insulin lispro 5 Units pen (rapid acting) (HumaLOG KWIKPEN) 5 Units SUBCUTANEOUS w MEALS atorvastatin 40 mg tab(s) (LIPITOR) 40 mg ORAL AT BEDTIME diphenhydrAMINE 25 mg (BENADRYL) 25 mg ORAL q 6 H PRN amLODIPine 10 mg tab(s) (NORVASC) 10 mg ORAL DAILY insulin glargine 14 Units pen (long acting) (LANTUS SOLOSTAR, BASAGLAR KWIKPEN) 14 Units SUBCUTANEOUS AT BEDTIME enoxaparin 40 mg injection (LOVENOX) 40 mg SUBCUTANEOUS DAILY 0.9% NaCl 3-5 mL 3-5 mL INTRAVENOUS q 12 H dextrose 40 % 15 g 15 g ORAL PRN Or glucagon 1 mg injection (GLUCAGEN) 1 mg INTRAMUSCULAR PRN Or dextrose 50% in water 25 mL syringe 12.5 g INTRAVENOUS PRN oxyCODONE-acetaminophen 5-325 mg 1-2 tablet (PERCOCET) 1-2 tablet ORAL q 6 H PRN Physical Exam: BP 124/87 Pulse 109 Temp 36.9 ?C (98.4 ?F) (Oral) Resp 19 Ht 152.4 cm (5') Wt 56.7 kg (125 lb) SpO2 100% BMI 24.41 kg/m? Intake/Output Summary (Last 24 hours) at 12/23/17 1423 Last data filed at 12/23/17 1200 Gross per 24 hour Intake 1300 ml Output 1751 ml Net -451 ml General appearance: Well appearing, alert, in no acute distress, well-hydrated, well nourished. and Thin Head: normocephalic, atraumatic Neck: Supple, no adenopathy; thyroid symmetric, normal size, no bruits Back: Normal exam, no pain to palpation Lungs: Lungs clear to auscultation. No wheezing, rhonchi, rales Heart: RRR without murmur, gallop, or rubs. No ectopy Abdomen: Abdomen soft, non-tender. Bowel sounds normal. No masses, organomegaly Extremities: Positive findings: left foot 5th digit amputation, erythematous, swelling decreased, pain decreased Diabetic Foot: Deformities: left 5th digit amputation Neuro: Negative. Assessment and Plan Active Hospital Problems as of 12/23/2017 Noted - Resolved Essential hypertension, benign 06/22/2012 - Present Current Assessment AND Plan -continue home lisinopril and home amlodipine -increased lisinopril to 20 mg -hold HCTZ -follow BP's Hyperlipidemia with target LDL less than 100 03/18/2014 - Present Current Assessment AND Plan -atorvastatin 40mg History of cerebrovascular accident (CVA) with residual deficit 04/20/2015 - Present Current Assessment AND Plan CVA and Carotid Stenosis -hold ASA and plavix for now pending Ortho's evaluation -if patient does not need to go to the OR will restart ASA/plavix Diabetic ulcer of toe of left foot associated with type 2 diabetes mellitus, limited to breakdown of skin ([facility]) 10/17/2017 - Present Current Assessment AND Plan Diabetic Foot Ulcer with Surgical Site Infection s/p left 5th digit amputation -concern for osteomyelitis -appreciate ID recs: Vanc, Aztreonam and Flagyl -appreciate Ortho recs: awaiting MRI -follow MRI of left foot -follow cultures -possible PICC line placement depending on duration of antibiotics -PT/OT -wound care -percocet prn q6hr Gangrene ([facility]) 11/20/2017 - Present Overview Added automatically from request for surgery [id number] Current Assessment AND Plan ? Wound care ? Blood culture ? Wound culture ? MRI of the foot, for need to consult ID ? Start antibiotics after basic labs are back Diabetes ([facility]) 12/23/2017 - Present Current Assessment AND Plan -A1C 14.5% from October 2017 -lantus -SSI -monitor bg -diabetic education Tobacco abuse 12/23/2017 - Present Current Assessment AND Plan -smoking cessation encouraged Resolved Hospital Problems as of 12/23/2017 None Lines/ Drains/ Airways: Lines, Drains, and Airways Line Peripheral 12/22/17 2230 Short Right Forearm 20 Gauge less than 1 day DVT PPx: Lovenox 40mg Sub Q Daily Anticoagulant AND Antiplatelet Medications Start Dose Route Frequency Ordered Stop 12/21/17 2200 enoxaparin 40 mg injection (LOVENOX) (Medical At Risk ) 40 mg SUBCUTANEOUS DAILY 12/21/17 2141 -- Disposition: Anticipate discharge to: Home/Self Care Code Status: Code Status: Other: none on file SIGNATURE: See Burris DO PATIENT NAME: Davina Green DATE: December 23, 2017 TIME: 2:22 PM PAGER/CONTACT #: [phone] PROGRESS Observed: 12/23/2017 Status: COMPLETED Source: [place] 7:00 AM CLINIC OTHER CAMPUS REPOSITORY HNO ID: [id number] Author: Johnie Levin Service: Orthopaedic Surgery Author Type: Resident Type: Progress Notes Filed: 12/23/2017 7:19 AM Note Text: ORTHOPAEDIC SURGERY DAILY PROGRESS NOTE Patient Name: Davina Green Date of Evaluation: 12/23/2017 Admission Date: 12/21/2017 Time of Evaluation: 7:01 AM ASSESSMENT: 62 year old female admited for eval and possible L foot infection s/p 5th ray resection PLAN: -Medical management per primary -Pain Control -PT/OT: Weight Bearing As Tolerated LUE -DVT Prophylaxis: Lovenox 40mg SQ daily x 21 days total. -Ice/elevate LLE -Antibiotics: IV abx per ID -Follow up MRI results -D/C planning: per primary INTERVAL HPI: Patient monitored, no new events overnight. Patient states that they are comfortable. Well Controlled pain. Denies nausea/vomitting. OBJECTIVE: BP 118/55 Pulse 70 Temp 37 ?C (98.6 ?F) (Oral) Resp 18 Ht 152.4 cm (5') Wt 56.7 kg (125 lb) SpO2 100% BMI 24.41 kg/m? Intake/Output Summary (Last 24 hours) No intake/output data recorded. Exam: General: NAD, AAOx3 Extremities: Left Lower Extremity: Dressing clean, dry and intact. Surgical site skin edges well approximated and minimal drainage from incision site, erythema circumferentially around incision site SILT S/S/SP/DP/T Motor intact DF/PF/EHL DP pulse palpable, foot warm with pulses Compartments soft, compressible. Tolerates passive stretch of digits. Labs: BMP: Sodium 137 12/23/2017 Potassium 4.3 12/23/2017 Chloride 110 12/23/2017 CO2 22 12/23/2017 BUN 22 12/23/2017 Creatinine 0.94 12/23/2017 Glucose 123 12/23/2017 CBC: WBC 9.27 12/23/2017 Hemoglobin 10.8 12/23/2017 Hematocrit 33.3 12/23/2017 PLT 391 12/23/2017 COAGS: INR 1.01 12/21/2017 SED RATE/CRP: WSR 94 12/22/2017 WSR 73 12/08/2017 WSR 78 11/24/2017 CRP 6.65 12/21/2017 CRP 1.8 12/08/2017 CRP 2.6 11/24/2017 Imaging: no new imaging Johnie Levin MD Resident, Orthopaedic Surgery Pager #: [phone] 12/23/2017 7:01 AM Please page [phone] from 5p-6a and on weekends for any issues. HEMOGRAM Collected: 12/23/2017 Status: F Source: [facility] 5:24 AM HEALTH SYSTEM REPOSITORY TYPE CODE TESTS RESULT OUT OF REFERENCE UNITS RANGE LAB WBC(LOINC) 3.98-10.04 thou/cmm WBC 9.27 LAB RBC(LOINC) 3.93-5.22 mil/cmm Low RBC 3.66 LAB HGB(LOINC) 11.2-15.7 g/dL Low Hgb 10.8 LAB HCT(LOINC) 34.1-44.9 % Low Hct 33.3 LAB MCV(LOINC) 79.4-94.8 fl MCV 91.0 LAB MCH(LOINC) 25.6-32.2 pg MCH 29.5 LAB MCHC(LOINC) 31.6-34.8 % MCHC 32.4 LAB RDW(LOINC) 11.7-14.4 % RDW 13.9 LAB RDWSD(LOINC 36.4-46.3 fl ) High RDW SD 46.4 LAB PLT(LOINC) 182-369 thou/cmm High Platelet 391 LAB MPV(LOINC) 9.4-12.3 fl MPV 9.5 Performed By: #### CBC1 #### [facility] [address] [place] [address] BASIC PANEL Collected: 12/23/2017 Status: F Source: [facility] 5:24 AM HEALTH SYSTEM REPOSITORY TYPE CODE TESTS RESULT OUT OF REFERENCE UNITS RANGE LAB NA(LOINC) 136-145 mEq/L Sodium Blood 137 LAB K(LOINC) 3.5-5.1 mEq/L Potassium Blood 4.3 Result Comment: SPECIMEN SLIGHTLY HEMOLYZED LAB CL(LOINC) 98-107 mEq/L Chloride High Blood 110 LAB CO2(LOINC) 21-32 mEq/L CO2 Blood 22 LAB GLU(LOINC) 70-99 mg/dL Glucose High Blood 123 LAB BUN(LOINC) 7-18 mg/dL BUN Blood High 22 LAB CREA(LOINC) 0.51-0.95 mg/dL Creatinine Blood 0.94 LAB CA(LOINC) 8.5-10.1 mg/dL Calcium Blood 8.5 LAB ANGAP(LOINC) 8-16 Anion Gap 9 Performed By: #### P8 #### [facility] [address] [place], [place] [address] MRI FOOT/TOES W/WO IV Observed: 12/22/2017 Status: F Source: [facility] 7:58 PM HEALTH SYSTEM REPOSITORY Performed at [facility] APPROVED BY: Rafi Webb MD EXAM TITLE: MRI LEFT FOOT WITH AND WITHOUT IV CONTRAST: DATE: 12/22/2017 19:32 COMPARISON: Radiographs performed earlier the same day CLINICAL INDICATION/HISTORY: Pain and swelling along the lateral forefoot. Recent amputation. TECHNIQUE: MRI of the left foot performed both with and without the IV administration of 10 mL of Dotarem. FINDINGS: As seen on the recent radiographs the patient is status post amputation at the level of the mid shaft of the fifth metatarsal. At the surgical resection and extending distally, there is a peripherally enhancing fluid collection within the soft tissues measuring approximately 13 x 7 mm in AP and transverse dimensions while extending over a craniocaudal length of approximately 3.5 cm. Foci of air are noted within this collection which could be sterile or nonsterile. There is infiltration and enhancement of the overlying subcutaneous fat and skin. There is abnormal edematous-type signal and enhancement within the distal 15 mm of the remaining fifth metatarsal shaft. This could be reactive or may represent early osteomyelitis. There is no obviou s bone loss or cortical destruction. Mild nonspecific edematous-type signal and enhancement is also seen at the base of the fifth metatarsal, likely reactive. Remaining utilized osseous structures are normal. There is diffuse cellulitic change along the dorsum of the foot. Generalized diffuse subcutaneous and soft tissue edema is also noted throughout the foot. Nonspecific myositis. IMPRESSION: There is a 3.5 cm encapsulated, peripherally enhancing fluid collection at the level of surgical resection at the lateral forefoot. While this could represent a sterile postoperative fluid collection, it is concerning for abscess. Adjacent abnormal signal and enhancement of the distal 15 mm of the remaining fifth metatarsal shaft is suspicious for early osteomyelitis, although reactive changes could have a similar MRI appearance. CASE MANAGEM Observed: 12/22/2017 Status: COMPLETED Source: [facility] 5:02 PM CLINIC OTHER CAMPUS REPOSITORY HNO ID: [id number] Author: Juarez (Specialist) Shoshana Service: Care Management Author Type: (none) Type: Care Mgt Progress Note Filed: 12/22/2017 5:02 PM Note Text: [facility] referral created to [facility] [place]. PROGRESS Observed: 12/22/2017 Status: COMPLETED Source: [facility] 4:24 PM CLINIC OTHER CAMPUS REPOSITORY HNO ID: [id number] Author: See (Res) DO [place] Service: Hospital Medicine Author Type: Resident Type: Progress Notes Filed: 12/22/2017 4:47 PM Note Text: Attestation signed by Richard Temple at 01/03/2018 3:20 PM Please see General Medicine House Service Attending Attestation to History and Physical dated 12/21/2017 for full details. Hospital Medicine Service Progress Note Date of Service: December 22, 2017 Hospital Day: Day 1 Chief Complaint: Left Foot Swelling and Pain s/p 5th digit amputation Initial HPI This patient is a 62 year old female with the PMH of diabetes, HTN, CVA presented with left foot pain due to left toe abcess since the amputation. 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 who had concerns for ongoing infection and wanted the abscess to be drained. The patient says that she noticed ankle and toe swelling since the last 2 days. She rated the pain as 10 in intensity, sharp in nature and constant, relieved by oxycodone. We put her on PO percocet for the pain. She did notice the skin was erythematous. No history of fever, chills, NVD. She does complain of ongoing dizziness ever since she had carotid surgery for CVA . Reports 30 lbs weight loss in the last 6 months despite having normal appetite. Subjective/ Review of Systems: No acute events overnight. Patient states pain is controlled with the percocets. States she is also confused and a little frustrated with all the doctors telling her different information. Medications: Current Facility-Administered Medications: insulin lispro pen (rapid acting) (HumaLOG KWIKPEN) SUBCUTANEOUS w MEALS iv contrast (radiology procedure) INTRAVENOUS DIRECTED PRN vancomycin iv piggyback 1 g in D5W 200 mL (VANCOCIN) 1 g INTRAVENOUS q 12 HR aztreonam iv piggyback 2 g in dextrose (iso-osmotic) 50 mL (AZACTAM) 2 g INTRAVENOUS q 8 H metroNIDAZOLE 500 mg PREMIX piggyback (FLAGYL) 500 mg INTRAVENOUS q 8 H NaCl 0.9% iv infusion 100 mL/hr INTRAVENOUS CONTINUOUS lisinopril 10 mg tab(s) (ZESTRIL, PRINIVIL) 10 mg ORAL DAILY insulin lispro 5 Units pen (rapid acting) (HumaLOG KWIKPEN) 5 Units SUBCUTANEOUS w MEALS atorvastatin 40 mg tab(s) (LIPITOR) 40 mg ORAL AT BEDTIME diphenhydrAMINE 25 mg (BENADRYL) 25 mg ORAL q 6 H PRN amLODIPine 10 mg tab(s) (NORVASC) 10 mg ORAL DAILY insulin glargine 14 Units pen (long acting) (LANTUS SOLOSTAR, BASAGLAR KWIKPEN) 14 Units SUBCUTANEOUS AT BEDTIME enoxaparin 40 mg injection (LOVENOX) 40 mg SUBCUTANEOUS DAILY 0.9% NaCl 3-5 mL 3-5 mL INTRAVENOUS q 12 H dextrose 40 % 15 g 15 g ORAL PRN Or glucagon 1 mg injection (GLUCAGEN) 1 mg INTRAMUSCULAR PRN Or dextrose 50% in water 25 mL syringe 12.5 g INTRAVENOUS PRN oxyCODONE-acetaminophen 5-325 mg 1-2 tablet (PERCOCET) 1-2 tablet ORAL q 6 H PRN Physical Exam: BP 171/61 Pulse 81 Temp 36.9 ?C (98.4 ?F) (Oral) Resp 16 Ht 152.4 cm (5') Wt 56.7 kg (125 lb) SpO2 100% BMI 24.41 kg/m? Intake/Output Summary (Last 24 hours) at 12/22/17 1624 Last data filed at 12/22/17 1030 Gross per 24 hour Intake 0 ml Output 1050 ml Net -1050 ml General appearance: Well appearing, alert, in no acute distress, well-hydrated, well nourished. and Thin Head: normocephalic, atraumatic Neck: Supple, no adenopathy; thyroid symmetric, normal size, no bruits Back: Normal exam, no pain to palpation Lungs: Lungs clear to auscultation. No wheezing, rhonchi, rales Heart: RRR without murmur, gallop, or rubs. No ectopy Abdomen: Abdomen soft, non-tender. Bowel sounds normal. No masses, organomegaly Extremities: Positive findings: left toe amputation, erythematous, swelling decreased Diabetic Foot: Deformities: left 5th digit amputation Neuro: Negative. Assessment and Plan Diabetic Foot Ulcer with Surgical Site Infection s/p left 5th digit amputation -concern for osteomyelitis -appreciate ID recs: Vanc, Aztreonam and Flagyl -appreciate Ortho recs -follow MRI of left foot -follow cultures -possible PICC line placement depending on duration of antibiotics -PT/OT -wound care -percocet prn q6hr Type 2 Diabetes Mellitus -lantus -SSI -monitor bg Hypertension -continue home lisinopril and home amlodipine -hold HCTZ -follow BP's CVA and Carotid Stenosis -hold ASA and plavix for now pending Ortho's evaluation -if patient does not need to go to the OR will restart ASA/plavix Dyslipidemia -atorvastatin 40mg Tobacco Abuse -smoking cessation encouraged Lines/ Drains/ Airways: Lines, Drains, and Airways Line Peripheral 12/21/17 Admission to Hospital Short Left Hand 22 Gauge 1 day DVT PPx: Lovenox 40mg Sub Q Daily Anticoagulant AND Antiplatelet Medications Start Dose Route Frequency Ordered Stop 12/21/170 enoxaparin 40 mg injection (LOVENOX) (Medical At Risk ) 40 mg SUBCUTANEOUS DAILY 12/21/171 -- Disposition: Anticipate discharge to: Home/Self Care Code Status: Code Status: Other: none on file SIGNATURE: See Burris DO PATIENT NAME: Davina Green DATE: December 22, 2017 TIME: 4:24 PM PAGER/CONTACT #: [phone] VENOUS DUPLEX LOWER Observed: 12/22/2017 Status: F Source: [place] [facility] 4:17 PM [facility] REPOSITORY [facility] Cardiovascular Services [address] [place] [address] Venous Duplex US - Shahab Extrem 12/21/17 0807 MR#: [id number] Acct: [id number] Name: DAVINA GREEN Rep #: [id number] : 1955 62 From: Mandy Koehler MD Attending Dr: Mike Christensen Status: DIS IN Ordering Dr: Jose Neely DO Date: 12/20/17 Location: [facility] Sex: F C Admitted: 12/20/17 Reason For Study: LEG SWELLING RIGHT LEFT GSV is normal. GSV is normal. CFV is compressible, spontaneous, phasic, CFV is compressible, spontaneous, phasic, competent and demonstrates normal competent, and demonstrates normal augmentation. augmentation. FV is compressible, spontaneous, phasic, FV is compressible, spontaneous, phasic, competent and demonstrates normal competent and demonstrates normal augmentation. augmentation. POP V is compressible, spontaneous, phasic, POP V is compressible, spontaneous, phasic, competent and demonstrates normal competent and demonstrates normal augmentation. augmentation. T/P Trunk is compressible. T/P Trunk is compressible. PTV is compressible. PTV is compressible. RT PerV is compressible. LT PerV is compressible. Procedure Exam performed in department. A preliminary report was called and/or faxed to [facility]. Interpretation Summary Deep veins of the lower extremities are bilaterally patent and compressible segmentally. There is no evidence of deep vein thrombosis on either side. Valvular competence appears intact within the proximal deep venous systems bilaterally. The greater saphenous veins appear bilaterally patent and compressible segmentally. Ordering Physician: Jose Neely Referring Physician: Allie Pompa Performed By: Linda Lemus RVT 12/22/176 Date Mandy Koehler MD CC: Jose Neely DO; Ivy Jimenez III, MD; Mike Christensen Date Dictated: 12/21/17 0807 Date Transcribed: 12/22/171615 Renewable Energy Technician: Signed THERAPY NT Observed: 12/22/2017 Status: COMPLETED Source: [facility] 3:51 PM CLINIC OTHER CAMPUS REPOSITORY HNO ID: [id number] Author: Sheldon GuillenOtr/LSarina Zuniga OT Service: Occupational Therapy Author Type: Occupational Therapist Type: Therapy (PT/OT/Speech/Resp) Filed: 12/22/2017 3:53 PM Note Text: Occupational Therapy Evaluation SERVICE DATE: 12/22/2017 SERVICE TIME: 1515 to 1530 ROOM: [id number] Recommended Discharge Disposition: Home Recommended Discharge Disposition Comments: with assist Anticipated Discharge Needs: Physical Assist at Home;Equipment Physical Assist at Home for: Cleaning;Laundry;Shopping;Transportation Recommended Discharge Equipment: Wheeled Walker;Shower Chair OT Recommendations to Nursing: To Bathroom for ADL?s /and or Toileting;With assist of 1 person Equipment: Wheeled Walker OT 6 Clicks Score: 23 Precautions/Activity Restrictions: Weight Bearing Restrictions Precaution/Activity Restriction Comments: heel weight bearing Extremity With Weight Bearing Restricted: Left Lower Extremity Left Lower Extremity Weight Bearing Status: Heel Weight Bearing ASSESSMENT: OT Evaluation Low Complexity: Occupational Profile - Brief review of patient's medical record completed (please see current hospital course of evaluation). Occupational Performance - Pt presents with deficits in LE bathing/dressing, functional transfers, functional mobility Complexity in Clinical Decision Making - The extent of clinical reasoning was low, number of treatment options limited, no need for modifications during the evaluation process, no comorbidities present to affect patient's occupational performance. DM, gangrene, wound abscess Patient Disposition at Start of Session: Supine in Bed;Call Thomas in Reach Patient Disposition at End of Session: Supine in Bed;Call Thomas in Reach Tolerated Full Session Occupational Therapy Problem List: Impaired Self Care;Decreased Activity Tolerance;Functional Mobility Impairment Patient /Caregiver Goals: Go Home Goals for Plan of Care: Grooming with: Independent Upper Body Bathing with: Independent Lower Body Bathing with: Independent Lower Body Dressing with: Independent Tolerate (minutes of functional activity): 45 Functional Activity with: Modified Independent Demonstrate Competence With Education with: Independent Transfer: all functional transfers: modified independent (with wheeled walker) PLAN: Treatment Frequency (times per week): 5 (1-4) Current admission Treatment Interventions: Education;Self Care / Home Management;Functional Mobility Training Plan of Care developed with: Patient TREATMENT INTERVENTIONS: Therapy Diagnosis: Reduced mobility-other;Decreased activities of daily living (ADL) Interventions Provided: Evaluation $ Evaluation-Low (66560) Billed Units: 1 unit Educated pt on role of OT in the acute care setting. Total Treatment Time (minutes): 15 FUNCTIONAL G CODE: OT 6 Clicks Score: 23 (12/22/17 1515) Self Care Current Status (G8987): CI (12/22/17 1515) Self Care Goal Status (G8988): CH (12/22/17 1515) Based on clinical assessment and the score on the 6 Clicks Functional Assessment Tool, the G code and corresponding severity modifiers are documented above. SUBJECTIVE: Current Hospital Course: Chart reviewed; 62 YO F approx 2 weeks s/p partial L 5th ray resection presenting with potential surgical site infection Reason for Occupational Therapy Consult: post acute placement Relevant Past Medical History: DM2, wound abscess, gangrene Patient Report: Pt supine, agreeable to session. No c/o pain, recently received pain meds. Pt very grateful for the therapy recommendation and to hear she is doing so well. Home Environment Patient Lives With: ( and son. Was at SNF prior to admit) Assistance Available: 24 Hour (son ) Entry To Home: Stairs;With Rail Number Of Stairs Into Home: 5 Number Of Stairs To Bed/Bath: 10 Stairs to Bed/Bath with: Unilateral Rail Tub/Shower Type: tub shower Equipment Owned: Crutch(es) Prior Functional Level: Within Functional Limits (pt mostly indep with ADLs at facility prior to arrival) OBJECTIVE: Responsiveness: Alert Follows Commands: 3-step Commands CURRENT FUNCTIONAL STATUS: Current Activities of Daily Living Assist Level Feeding Independent Grooming Supervision Bathing Upper Body Stand By Assistance Bathing Lower Body Contact Guard Assistance Dressing Upper Body Independent Dressing Lower Body Verbal Cues Only Toileting Independent Functional Mobility Assist Level Rolling Supine to Sit Supervision Sit to Supine Supervision Scooting Sit to Stand Stand By Assistance Stand to Sit Stand By Assistance Bed to Chair Toilet/Commode Supervision Functional Mobility Stand By Assistance Wheeled Walker Hand Dominance: Right Range Of Motion: Within Functional Limits Strength: Within Functional Limits Activity Tolerance: Standing Activity Standing Activity: Functional mobility to/from bathroom; toilet transfer Standing Activity Tolerance (in minutes): 5 Please see discipline specific clinical documentation flowsheet for complete details for this therapy evaluation/treatment. SIGNATURE: ELI Higgins/Ibeth PATIENT NAME: Davina Green DATE: December 22, 2017 TIME: 3:51 PM THERAPY NT Observed: 12/22/2017 Status: COMPLETED Source: [facility] 3:26 PM CLINIC OTHER CAMPUS REPOSITORY HNO ID: [id number] Author: Johnie (Pt) Amada Service: Physical Therapy Author Type: Physical Therapist Type: Therapy (PT/OT/Speech/Resp) Filed: 12/22/2017 3:30 PM Note Text: Physical Therapy Evaluation SERVICE DATE: 12/22/2017 SERVICE TIME: 1430 to 1500 ROOM: [place] [id number] Recommended Discharge Disposition: Home PT Recommended Discharge Disposition Comments: Pt mobilizing safely with assistive device on stairs and level surfaces. Recommended Discharge Equipment: Wheeled Walker PT Recommendations to Nursing: Ambulate with device;To bathroom Device: Wheeled Walker PT 6 Clicks Score: 21 Precautions/Activity Restrictions: Weight Bearing Restrictions Precaution/Activity Restriction Comments: heel weight bearing Extremity With Weight Bearing Restricted: Left Lower Extremity Left Lower Extremity Weight Bearing Status: Heel Weight Bearing ASSESSMENT : Pt moving well with assistive device and requiring no physical assist to safely move. Recommend Home PT at the time of medical discharge. Patient presents with a medically stable condition with limited functional impairments which minimally impact safe mobility. The patient will require skilled therapy for PT problems that may include balance, gait safety with or without an assitive device and home safety education. . Requires skilled PT for functional mobility training and strengthening. Patient Disposition at Start of Session: (up in the bathroom independent) Patient Disposition at End of Session: Supine in Bed;Call Thomas in Reach Tolerated Full Session Physical Therapy Problem List: Pain;Decreased Strength;Functional Mobility Impairment Patient /Caregiver Goals: Walk Goals for Plan of Care: Able to perform HEP with: Verbal Cues Only Transfer sit to/from stand with: Supervision Ambulate with: Supervision Distance: 75 Device: Wheeled Walker Ambulate up and down steps with: Stand By Assistance Number of steps: 5 Device: Rail;Crutch(es) (goal met) Rehab Potential: Excellent PLAN: Treatment Frequency (times per week): 5 (2-5) Current admission Treatment Interventions: Education;Strengthening;Functional Mobility Training Plan of Care developed with: Patient TREATMENT INTERVENTIONS: Therapy Diagnosis: Reduced mobility-other;General symptoms and signs-other Interventions Provided: Evaluation;Gait Training (04914) $ Evaluation-Low (62379) Billed Units: 1 unit Gait Training (50322) Treatment Minutes: 8 1 unit Skilled Intervention(s): Instruction in sit to stand technique with proper hand placement and body positioning at edge of bed/chair, Instruction in stand to sit technique with LE's touching chair/bed and reaching back for surface, Instruction in WB precautions, Instruction in stair negotiation, Instruction in use of equipment, cues for sequence and pattern. Educated on stair climbing using rail and crutch Total Timed Code Treatment Minutes: 8 Total Treatment Time (minutes): 30 FUNCTIONAL G CODE: PT 6 Clicks Score: 21 (12/22/17 1430) Mobility: Walking and Moving Around Current Status (G8978): CJ (12/22/17 1430) Mobility: Walking and Moving Around Goal Status (G8979): CI (12/22/17 1430) Based on clinical assessment and the score on the 6 Clicks Functional Assessment Tool, the G code and corresponding severity modifiers are documented above. SUBJECTIVE: Current Hospital Course: Chart reviewed; Left foot abscess s/p 5th ray resection-underwent amputation by Dr. Pompa approx 2 weeks ago for gangrene Active Hospital Problems Diagnosis - Wound abscess - Depression - Gangrene (HCC) Added automatically from request for surgery [id number] - Type 2 diabetes mellitus with microalbuminuria, without long-term current use of insulin (HCC) - Diabetic nephropathy with proteinuria (HCC) - Essential hypertension, benign PAST MEDICAL HISTORY Diagnosis Date - Anxiety - Benign hypertension 08/07/2015 - Cannabis abuse 02/23/2010 - Carotid artery disorder (HCC) Right sided - Carotid stenosis 03/11/2010 - Cervical cancer ([facility]) - CVA (cerebral infarction) 11/2009 L hemiparesis and decreased coordination - DDD (degenerative disc disease), lumbar 02/23/2010 - Diabetic nephropathy with proteinuria ([facility]) 03/18/2014 - Diabetic ulcer of toe of left foot associated with type 2 diabetes mellitus, limited to breakdown of skin ([facility]) 10/17/2017 - Environmental allergies - Essential hypertension, benign 06/22/2012 - 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 ([facility]) - Hyperlipidemia - Lichen planus 11/09/2010 - Lumbago-sciatica due to displacement of lumbar intervertebral disc 02/23/2010 - Lumbar radiculopathy 10/17/2017 left sciatica - PVD (peripheral vascular disease) ([facility]) 2017 - Spastic neurogenic bladder 05/14/2015 - Tobacco abuse - Type 2 diabetes mellitus with microalbuminuria, without long-term current use of insulin ([facility]) 05/08/2017 PAST SURGICAL HISTORY Procedure Laterality Date - AMPUTATION METATARSAL+TOE,SINGLE Left 12/11/2017 partial 5th toe - COLONOSCOP W/ OR W/O BRSH SPEC 04/11/2016 Colonoscopy - EGD W/O OR W/BRUSH/WASH 04/11/2016 EGD - LUMBAR OR CAUDAL EPIDURAL STEROID INJECTION 02/21/2011 - PAST SURGICAL HISTORY OF Exploratory surgery for cervical ca Reason for Physical Therapy Consult : post acute placement Patient Report: Pt willing to participate. Home Environment Patient Lives With: ( and son. Was at SNF prior to admit) Assistance Available: 24 Hour (son ) Entry To Home: Stairs;With Rail Number Of Stairs Into Home: 5 Number Of Stairs To Bed/Bath: 10 Stairs to Bed/Bath with: Unilateral Rail Equipment Owned: Crutch(es) OBJECTIVE: CURRENT FUNCTIONAL STATUS: Current Functional Mobility Assist Level Additional Information Rolling Independent Supine to Sit Independent Sit to Supine Independent Scooting Independent Sit to Stand Stand By Assistance Stand to Sit Stand By Assistance Bed to Chair Toilet/Commode Gait Contact Guard Assistance Gait Device: Wheeled Walker Gait Distance (feet): 50x1,15x2 Stairs Contact Guard Assistance Stairs Device: Crutch(es) (crutch and railing) Number of Stairs: 5 Curb Step Car Transfer General Gait Deviations: (heel weight bearing) Range Of Motion: Within Functional Limits Except Left Lower Extremity ROM Comments: L ankle and toes not assessd Strength: Within Functional Limits Except Left Lower Extremity Strength Comments: 4 Balance: (safe with assistive devices) Please see discipline specific clinical documentation flowsheet for complete details for this therapy evaluation/treatment. SIGNATURE: Johnie Ybarra PT PATIENT NAME: Davina Green DATE: December 22, 2017 TIME: 3:26 PM CASE MGT INIT Observed: 12/22/2017 Status: COMPLETED [facility] OTHER [facility] REPOSITORY HNO ID: [id number] Author: Rohini (Rn) INES Hidalgo Service: Care Management Author Type: Registered Nurse Type: Care Mgt Initial Assessment Filed: 12/22/2017 3:44 PM Note Text: CARE MANAGEMENT: ASSESSMENT AND DISCHARGE PLAN SERVICE DATE: 12/22/2017 SERVICE TIME: 3:11 PM PRIMARY CARE PHYSICIAN: Ivy Jimenez III MD ADMISSION STATUS: Inpatient Needs Prior to Discharge: To Be Determined 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 No Advance Directive: Health Literacy: 1. How often do you need to have someone help you when you read instructions, pamphlets, or other written material from your doctor or pharmacy? Never - 1 2. How confident are you filling out medical forms by yourself? Extremely - 1 If Patient scores > 3 on either question, the following interventions were put into place: Patient did not score > 3 FUNCTIONAL AND COGNITIVE/BEHAVIORAL PRIOR TO ADMISSION: Baseline Mental Status: Alert AND Oriented, Person, Place , Time and Situation Functional Status: Independent Does Patient Currently Receive Any Community Services or Home Care? None Equipment Prior to Admission: Crutches Has the Patient Been in a Long-Term Facility in the Past 30 days? Yes. Where and Dates: [facility] SOCIAL: Living Arrangement: Home, Nursing Facility [facility] (Level of Care: UNK Bed Hold Days: UNK) Lives With: N/A Patient From Facility Financial Resources: Disabled Primary Contact: Extended Emergency Contact Information Primary Emergency Contact: Priscila Walker Mobile Relation: Daughter Supportive: Yes Other Important Patient Contacts: None Caregiver Assessment: Caregiver is ready, willing and able to meet the patient's needs as recommended by the inter-professional team? Yes Patient's transition needs and plan for meeting these needs: TBD Does the patient have an acute stroke diagnosis, or has the patient had a stroke during this admission? No Medication Adherence: I am convinced of the importance of my prescription medication: Agree completely - 0 I worry that my prescription medication will do more harm than good to me Disagree completely - 0 I feel financially burdened by my [id number] expenses for my prescription medication: Disagree completely - 0 Patient is categorized as low risk < 2 Are you interested in bedside delivery of your medications? No Food Concerns: In the Last Month, Have You had Trouble Getting Food? No trouble getting food During the Last Month, Have You Worried Whether Your Food Would Run Out Before You Had Enough Money to Buy More? No Is the Patient Psychosocially Complex? No ASSESSMENT AND PLAN: Medical Needs: Wound Care - active or potential Psychosocial Needs: None FREEDOM OF CHOICE EXPLAINED: Yes , AND CHOICE IS [facility] POTENTIAL TRANSITION PLANS Home Home Long-Term OT/tableau analystLong-Term Facility/Intermediate Care Facility To Be Determined Pt came from [facility]. Pt states she is willing to return, but PT has recommended home therapy. Pt is on IV antibiotics, may possibly need after DC. CM to follow for recommendations.. Will need precert to return to facility SIGNATURE: Rohini Hidalgo RN PATIENT NAME: Davina Green DATE: December 22, 2017 TIME: 3:10 PM PAGER/CONTACT #: [id number] PROGRESS Observed: 12/22/2017 Status: COMPLETED Source: [place] 2:[address] [facility] REPOSITORY HNO ID: [id number] Author: Sumanth Butler Service: (none) Author Type: Timber Selector Type: Progress Notes Filed: 12/22/2017 2:10 PM Note Text: Patient will be opted out the Care Gap registry. This was discussed at the teamlet meeting. Per Dr. Barbara Butler MA CONSULT Observed: 12/22/2017 Status: COMPLETED Source: [place] 12:[address] [facility] OTHER CAMPUS REPOSITORY HNO ID: [id number] Author: Brandon Ball Service: Orthopaedic Surgery Author Type: Resident Type: Consults Filed: 12/22/2017 1:01 PM Note Text: Attestation signed by Arnold Garrett at 12/25/2017 7:08 AM I personally saw and evaluated the patient. I reviewed the resident's note. I agree with the resident's assessment and plan unless otherwise noted. Arnold Garrett DPM, FACFAS ORTHOPAEDIC INITIAL CONSULT Patient Name: Davina Green Admission Date: 12/21/2017 Date of Evaluation: 12/22/2017 Time of Evaluation: 12:46 PM HISTORY OF PRESENT ILLNESS: This is a 62 YO F currently admitted to [facility] for evaluation and possible L foot infection s/p 5th ray resection. Patient underwent amputation by Dr. Pompa approx 2 weeks ago for gangrene. Patient's post-operative course was uncomplicated until three days ago where patient began to notice increasing redness and swelling around surgical site. Cultures from patient's surgery were negative for bacterial growth and pathology was negative for osteomyelitis. On today's evaluation patient states that her erythema and swelling has decreased over previous 24 hours. She has been taking antibiotics but does not know what the name of it is. Her pain is better controlled today. She denies any drainage coming from surgical wound. Denies fevers/chills. PAST MEDICAL HISTORY Diagnosis Date - Anxiety - Benign hypertension 08/07/2015 - Cannabis abuse 02/23/2010 - Carotid artery disorder (HCC) Right sided - Carotid stenosis 03/11/2010 - Cervical cancer (HCC) - CVA (cerebral infarction) 11/2009 L hemiparesis and decreased coordination - DDD (degenerative disc disease), lumbar 02/23/2010 - Diabetic nephropathy with proteinuria ([facility]) 03/18/2014 - Diabetic ulcer of toe of left foot associated with type 2 diabetes mellitus, limited to breakdown of skin ([facility]) 10/17/2017 - Environmental allergies - Essential hypertension, benign 06/22/2012 - 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 ([facility]) - Hyperlipidemia - Lichen planus 11/09/2010 - Lumbago-sciatica due to displacement of lumbar intervertebral disc 02/23/2010 - Lumbar radiculopathy 10/17/2017 left sciatica - PVD (peripheral vascular disease) ([facility]) 2018 - Spastic neurogenic bladder 05/14/2015 - Tobacco abuse - Type 2 diabetes mellitus with microalbuminuria, without long-term current use of insulin ([facility]) 05/08/2017 PAST SURGICAL HISTORY Procedure Laterality Date - AMPUTATION METATARSAL+TOE,SINGLE Left 12/11/2017 partial 5th toe - COLONOSCOP W/ OR W/O BRSH SPEC 04/11/2016 Colonoscopy - EGD W/O OR W/BRUSH/WASH 04/11/2016 EGD - LUMBAR OR CAUDAL EPIDURAL STEROID INJECTION 02/21/2011 - PAST SURGICAL HISTORY OF Exploratory surgery for cervical ca Current hospital medications: insulin lispro pen (rapid acting) (HumaLOG KWIKPEN) SUBCUTANEOUS w MEALS iv contrast (radiology procedure) INTRAVENOUS DIRECTED PRN vancomycin iv piggyback 1 g in D5W 200 mL (VANCOCIN) 1 g INTRAVENOUS q 12 HR aztreonam iv piggyback 2 g in dextrose (iso-osmotic) 50 mL (AZACTAM) 2 g INTRAVENOUS q 8 H metroNIDAZOLE 500 mg PREMIX piggyback (FLAGYL) 500 mg INTRAVENOUS q 8 H NaCl 0.9% iv infusion 100 mL/hr INTRAVENOUS CONTINUOUS lisinopril 10 mg tab(s) (ZESTRIL, PRINIVIL) 10 mg ORAL DAILY insulin lispro 5 Units pen (rapid acting) (HumaLOG KWIKPEN) 5 Units SUBCUTANEOUS w MEALS atorvastatin 40 mg tab(s) (LIPITOR) 40 mg ORAL AT BEDTIME amLODIPine 10 mg tab(s) (NORVASC) 10 mg ORAL DAILY insulin glargine 14 Units pen (long acting) (LANTUS SOLOSTAR, BASAGLAR KWIKPEN) 14 Units SUBCUTANEOUS AT BEDTIME enoxaparin 40 mg injection (LOVENOX) 40 mg SUBCUTANEOUS DAILY 0.9% NaCl 3-5 mL 3-5 mL INTRAVENOUS q 12 H dextrose 40 % 15 g 15 g ORAL PRN glucagon 1 mg injection (GLUCAGEN) 1 mg INTRAMUSCULAR PRN dextrose 50% in water 25 mL syringe 12.5 g INTRAVENOUS PRN oxyCODONE-acetaminophen 5-325 mg 1-2 tablet (PERCOCET) 1-2 tablet ORAL q 6 H PRN Allergies: ALLERGIES Allergen Reactions - Lipitor [Atorvastat* Other: See Comments fatigue - Penicillins Hives, Swelling Updated 12/22/[address] Chaparrita Hidalgo - Pravachol [Pravasta* Intolerance Fatigue, loss of appetite. - Prozac [Fluoxetine * Mental Status Change sleepiness FAMILY HISTORY Problem Relation Age of Onset - Coronary Artery Disease Father - Stroke Mother - Diabetes Maternal Grandmother Social History Substance Use Topics - Smoking status: Current Every Day Smoker Packs/day: 1.00 Types: Cigarettes - Smokeless tobacco: Never Used Comment: less then a pack. Has smoked since she was 15. - Alcohol use No REVIEW OF SYSTEMS: GENERAL: Negative for malaise, significant weight loss, night sweats and fever HEENT: No trouble swallowing, No changes in hearing or vision, no nose bleeds or other nasal problems. RESPIRATORY: Negative for cough, wheezing and shortness of breath CARDIOVASCULAR: Negative for chest pain, leg swelling, palpitations, orthopnea GI: Negative for abdominal discomfort, hematochezia, melena, hematemesis, change in bowel habits, diarrhea, constipation, nausea or vomiting. MUSCULOSKELETAL: See HPI PSYCH: Negative for sleep disturbance, mood disorder and recent psychosocial stressors. HEMATOLOGY Negative for prolonged bleeding, bruising easily, and swollen nodes. ENDOCRINE: Negative for cold or heat intolerance, polyuria, polydipsia and goiter. NEURO: Negative for lightheadedness, dizziness, tremor, gait imbalance, syncope and seizures. Comprehensive ROS: Negative for all systems reviewed. RADIOGRAPHS: XR L Foot: trans-5th metatarsal amputation. No other fx/dx identified OTHER STUDIES: Not applicable. LABS: CBC: WBC 9.69 12/22/2017 Hemoglobin 11.4 12/22/2017 Hematocrit 35.2 12/22/2017 PLT 386 12/22/2017 CMP: Sodium 135 12/21/2017 Potassium 4.3 12/21/2017 BUN 31 12/21/2017 Creatinine 0.96 12/21/2017 Glucose 174 12/21/2017 COAGS: INR 1.01 12/21/2017 URINALYSIS: Ketones, Urine NEGATIVE 12/22/2017 Nitrites Urine NEGATIVE 12/22/2017 Specific [place], Ur 1.021 12/22/2017 Protein, Urine 300 12/22/2017 Leukocytes Esterase NEGATIVE 12/22/2017 WBC, Urine 0.4 12/22/2017 SED RATE/CRP: WSR 94 12/22/2017 WSR 73 12/08/2017 WSR 78 11/24/2017 CRP 6.65 12/21/2017 CRP 1.8 12/08/2017 CRP 2.6 11/24/2017 PHYSICAL EXAM: BP 171/61 Pulse 81 Temp (Src) 98.4 (Oral) Resp 16 Ht 5' 0 (1.52m) Wt 125 lb (56.7kg) SpO2 100% BMI 24.41 kg/(m2). General: NAD, AOx3 LLE: Surgical incision well approximated, no drainage expressible, +erythema adjacent to surgical incision and extending proximally over dorsal midfoot No areas of fluctuance Decreased sensation s/s/dp/sp/t +df/pf/ehl +1 dp/pt pulse PROCEDURE: Not applicable IMPRESSION: 62 YO F approx 2 weeks s/p partial L 5th ray resection presenting with potential surgical site infection PLAN: 1. Medical management per primary 2. IV abx per ID 3. Follow up MRI results 4. Pain control 5. Wound care consulted 6. Ice/elevate LLE 7. Discussed with Dr. Garrett who agrees with above plan Brandon Ball MD 12/22/17 FOOT 3V AP/LAT/OBL Observed: 12/22/2017 Status: F Source: [facility] 11:59 AM HEALTH SYSTEM REPOSITORY Performed at [facility] APPROVED BY: Richard Winston MD Addendum Begins * * * * * * * * ORIGINAL REPORT * * * * * * * * LEFT FOOT, DORSAL PLANTAR, OBLIQUE AND LATERAL: CLINICAL INDICATION: Status post recent left fifth ray partial amputation. Left foot swelling in conjunction with a clinical concern for osteomyelitis. COMPARISON: None available. The fifth ray is surgically absent distal to the mid shaft of the metatarsal bone. There is irregularity of the distal metatarsal shaft although there are no obvious cortical erosive or destructive changes. There is generalized loss of bone density. There are no other cortical erosive or destructive changes to suggest osteomyelitis. There is no acute fracture. There is an exuberant plantar calcaneal enthesophyte. Soft tissue covers the distal fifth metatarsal shaft. There are a couple of foci of soft tissue air distal to the fifth metatarsal bone. IMPRESSION: Status post partial amputation of the fifth ray distal to the metatarsal midshaft. There is irregularity with obvious cortical erosive or destructive changes of the distal fifth metatarsal bone. There is soft tissue covering the distal fifth metatarsal bone with foci of soft tissue air distal to the metatarsal shaft which may be postoperative. Correlate clinically for possible gas producing soft tissue infection. If there is persistent clinical concern for osteomyelitis further evaluation with MR imaging is recommended. * * * * * * * * ADDENDUM #1 * * * * * * * * IMPRESSION: Status post partial amputation of the fifth ray distal to the metatarsal midshaft. There is irregularity without obvious cortical erosive or destructive changes of the distal fifth metatarsal bone. There is soft tissue covering the distal fifth metatarsal bone with foci of soft tissue air distal to the metatarsal shaft which may be postoperative. Correlate clinically for possible gas producing soft tissue infection. If there is persistent clinical concern for osteomyelitis further evaluation with MR imaging is recommended. Addendum Ends LEFT FOOT, DORSAL PLANTAR, OBLIQUE AND LATERAL: CLINICAL INDICATION: Status post recent left fifth ray partial amputation. Left foot swelling in conjunction with a clinical concern for osteomyelitis. COMPARISON: None available. The fifth ray is surgically absent distal to the mid shaft of the metatarsal bone. There is irregularity of the distal metatarsal shaft although there are no obvious cortical erosive or destructive changes. There is generalized loss of bone density. There are no other cortical erosive or destructive changes to suggest osteomyelitis. There is no acute fracture. There is an exuberant plantar calcaneal enthesophyte. Soft tissue covers the distal fifth metatarsal shaft. There are a couple of foci of soft tissue air distal to the fifth metatarsal bone. IMPRESSION: Status post partial amputation of the fifth ray distal to the metatarsal midshaft. There is irregularity with obvious cortical erosive or destructive changes of the distal fifth metatarsal bone. There is soft tissue covering the distal fifth metatarsal bone with foci of soft tissue air distal to the metatarsal shaft which may be postoperative. Correlate clinically for possible gas producing soft tissue infection. If there is persistent clinical concern for osteomyelitis further evaluation with MR imaging is recommended. DISCHARGE SUMMARY Observed: 12/22/2017 Status: F Source: [place] 11:03 AM [facility] REPOSITORY [facility] Medical Records Department [address] [place] [address] Discharge Summary 12/21/17 1720 MR#: [id number] Acct: [id number] Name: DAVINA GREEN Rep #: [id number] : [id number] 62 From: Binh ERVIN PCP: Ivy Jimenez III, MD Status: DIS IN Y Location: MS3 [id number] <Binh Hong - Last Filed: 12/21/17 17:20> Discharge Date and Diagnosis Date of Admission: 12/20/17 Date of Discharge: 12/21/17 - Primary Discharge Diagnosis Active and Suspected Problems (Last Updated 12/20/17 @ 17:32 by Jose Neely DO) Cellulitis of left foot (Acute) Nonhealing Left foot wound s/p left 5th digit partial ray amputation 12/11/17 BL PAD with diminished ABIs DMt2 Nicotine abuse HTN Suspected CKDIII - Secondary Discharge Diagnosis Chronic Problems (Last Updated 12/20/17 @ 17:32 by Jose Neely DO) Chronic ulcer of buttock (Chronic) Abscess of buttock (Chronic) Diabetes mellitus (Chronic) Hypertension (Chronic) History of CVA (cerebrovascular accident) (Chronic) Caries (Chronic) Tobacco abuse (Chronic) Tobacco abuse counseling (Chronic) Carotid arterial disease (Chronic) Hyperlipidemia (Chronic) Hospital Course and Treatment Imaging Results: JOANA Report RIGHT: PT 0.72, DP 0.80, Digit 0.51 LEFT: PT 0.53, DP 0.49, Digit 0.21 RAD/Foot min 3 Views IMPRESSION: Mid fifth metatarsal amputation with surrounding soft tissue prominence and likely subcutaneous emphysema within this region suggestive of underlying abscess versus phlegmon in the appropriate clinical setting. Postsurgical changes are also a consideration. For definitive evaluation of osseous infection further evaluation with three-phase nuclear medicine bone scan or MRI may be obtained. MRI/Lower Ext/No Jt/w/o IMPRESSION: Mid fifth metatarsal amputation with distal osseous edema, small subcutaneous focus of air and surrounding inflammatory fluid consistent with soft tissue infection/abscess and early osteomyelitis of the distal metatarsal amputation site in the appropriate clinical setting. Consultations Arlen - AFUA Pompa - podiatry 12/20/17 23:25 Consult: Onc/Wound/coordinator integrated marketing Routine Comment: Reason for Consult:: L foot partial toe Amp 12/13, Cellulitis Procedures: None Summary of Care Provided: Physical exam on day of discharge: See daily progress note. Hospital course: The patient is a 62 year old F with a hx of DMt2, PVD, nicotine abuse (quit 3 weeks prior), nonhealing wounds, recent LLE 5th digit partial ray amputation on 12/11/[address] Pompa (podiatry) for dry gangrene, and anxiety/depression, who presented from Dr. Pompa with worsening of erythema on the wound. An Xray demonstrated possible underlying abscess and she was admitted on vanc and cefepime with podiatry on consult. It did appear inflamed and erythematous without ivy purulence, she had elevated ESR and CRP, however she had no fever or white count. Wound care was consulted. ID was consulted and recommended continuation of the same abx therapy. MRI was obtained and demonstrated possible infection, abscess, osteomyelitis. Podiatry was unsure if this demonstrated abscess or if it was post op changes such as hematoma or seroma. They planned to take her to surgery. In the OR surgery was cancelled as the foot appeared more dusky. JOANA's were obtained with significantly poor ratios left side worse than the right side (as above). Podiatry did not feel comfortable continuing with any intervention without vascular surgery on board as there was a high risk of necrosis. Vascular is currently unavailable here. We contacted [facility] for transfer and the patient was accepted by Dr. Richard Temple as well as vascular surgeon Dr. Jordan. She was transferred in stable condition with stable vitals at this time, when the bed became available. This patient was seen by Binh Hong PA-C under the supervision of Doctor Christensen. [] Discharge Diet: - - as directed by receiving facility Discharge Activity: - - as directed by receiving facility Home Medications: Medications to take at Discharge Amlodipine [Norvasc] 10 mg PO QHS 12/18/15 Lisinopril [Zestril] 10 mg PO DAILY 12/18/15 busPIRone [Buspar] 5 mg PO TID 12/18/15 Sertraline HCl [Zoloft] 25 mg PO DINNER 10/11/16 Simethicone 125 mg PO TID PRN PRN 10/11/16 Clopidogrel Bisulfate [Clopidogrel] 75 mg PO DAILY 12/10/17 Mometasone Furoate [Elocon] 50 gm TP DAILY 12/10/17 Acetaminophen [Tylenol Tablet] 650 mg PO Q6H PRN PRN tablet 12/14/17 Glucerna Shake 120 ml PO TIDCM liquid 12/14/17 Magnesium Hydroxide [Milk Of Magnesia] 30 ml PO DAILY PRN PRN udc 12/14/17 Triamcinolone 0.5% Cream [Kenalog] 1 applic TOPICAL DAILY tube 12/14/17 DiphenhydrAMINE [Benadryl] 25 mg PO TID PRN PRN 12/20/17 Insulin Glargine,Hum.rec.anlog [Lantus] 10 unit SQ QHS 12/20/17 Insulin Lispro [Humalog KwikPen] See Protocol SQ 0600,1600 12/20/17 Nutritional Supplement [Rene - ORANGE FLAVOR] 1 packet PO BIDCM 12/20/17 Oxycodone [Oxyir] 5 - 10 mg PO Q4H PRN PRN 12/20/17 Primary Care Physician: Ivy Jimenez III, MD [Primary Care Provider] - Please follow up with your Primary Care Physician in: as directed Please Follow Up With: Allie Pompa DPM When: as directed Disposition: Acute care Hospital Minutes spent on discharge:: 40 Patient Condition:: Stable Medical Necessity - Tobacco Use Smoking Status: Former smoker Tobacco Use: Cigarettes Meaningful Use Info Meaningful Use Diagnoses (Choose all that apply): None applicable <Mike Christensen E - Last Filed: 12/22/17 11:03> Discharge Date and Diagnosis - Secondary Discharge Diagnosis Chronic Problems (Last Updated 12/20/17 @ 17:32 by Jose Neely DO) Chronic ulcer of buttock (Chronic) Abscess of buttock (Chronic) Diabetes mellitus (Chronic) Hypertension (Chronic) History of CVA (cerebrovascular accident) (Chronic) Caries (Chronic) Tobacco abuse (Chronic) Tobacco abuse counseling (Chronic) Carotid arterial disease (Chronic) Hyperlipidemia (Chronic) Hospital Course and Treatment Imaging Results: Bilateral arterial duplex: Impression: Based upon the findings of this resting noninvasive lower extremity arterial study, there is evidence of mild to moderate arterial occlusive disease in the right lower extremity, and moderate to severe arterial occlusive disease in the left lower extremity. Biphasic waveforms are noted at ankle level on the right. Monophasic waveforms are noted at ankle level on the left. The resting right ankle-brachial index is mildly to moderately diminished. The resting left ankle-brachial index is moderately diminished. The right digital-brachial index is mildly to moderately diminished, consistent with mild to moderate diminution of arterial flow at digital level on the right. The left digital-brachial index is moderately to severely diminished, consistent with moderate to severe impairment of arterial flow at digital level in the left lower extremity. Consultations 12/20/17 23:25 Consult: Onc/Wound/coordinator integrated marketing Routine Comment: Reason for Consult:: L foot partial toe Amp 12/13, Cellulitis Summary of Care Provided: Hospitalist note: Discharge summary above reviewed and I agree with above discharge and transfer plan. Patient was admitted for increased pain, erythema and swelling of the left foot 2 days after she had partial fifth ray amputation of the left foot for gangrene of the left fifth toe that was done on December 11, 2014. She was found to have acute cellulitis of the left foot without evidence of deep tissue infection, abscess or osteomyelitis. X-ray of the left foot revealed soft tissue swelling and questionable fluid collection which could be due to abscess. MRI of the left foot performed and reported as distal osseous edema, small subcutaneous focus of inflammatory changes and fluids which could be due to abscess or airway osteomyelitis. Podiatry medicine who performed the surgery before admission consulted and after revision of the MRI with radiology, foot abscess and osteomyelitis is less likely. Patient was treated with IV cefepime and vancomycin. Her vital signs are stable and she was afebrile on admission and she has no leukocytosis. There was a concern that she may have peripheral arterial disease for which ankle-brachial index performed and was diminished in both legs but more on the left lower extremity. After discussion with podiatry medicine, decision was made that patient needs to be evaluated by vascular surgery and because we have no vascular surgery, this week, we decided to transfer the patient to a tertiary care center for further evaluation regarding the referral arterial disease. Arterial Doppler of the bilateral lower extremities revealed mild to moderate arterial occlusive disease on the right lower extremity and moderate to severe arterial occlusive disease on the left lower extremity. Patient was transferred to [facility] in a stable medical condition for evaluation by vascular surgery. This note was generated with Gen[employer] dictation software. It may contain incorrect words, spelling, and punctuation that were not noted in checking the note before signing. Minutes spent on discharge:: 34 Patient Condition:: Stable Meaningful Use Info Meaningful Use Diagnoses (Choose all that apply): None applicable Code Visit Inpatient E AND M: [id number] Disch Hosp 12/21/17 1733 <Electronically signed by Binh ERVIN> Date Binh ERVIN 12/22/17 1103<Electronically signed by Mike Christensen MD> Cosigner Signature (if applicable): Date Mike Christensen MD CC: NOA Pompa; AZIZA Hong; Ivy Jimenez III, MD; Mike Christensen Signed CONSULT PROG Observed: 12/22/2017 Status: COMPLETED Source: [place] 9:12 AM CLINIC OTHER CAMPUS REPOSITORY [facility] ID: [id number] Author: Petra De La Cruz) INES Baxter Service: Wound/Ostomy Author Type: Registered Nurse Type: Consult Progress Note Filed: 12/22/2017 9:16 AM Note Text: WOUND CARE NURSE CONSULT NOTE SERVICE DATE: 12/22/2017 SERVICE TIME: 0840 REASON FOR VISIT: Wound TIME SPENT (minutes): 30 Documentation from Wound Expert can be found in scanned documents. Patient seen by Lanette OVALLE and beatriz VARGAS. Left 5th toe amputation site surgical incision, sutures intact. Surrounding erythema, no drainage noted. [place] and dry gauze dressing daily. ID and Ortho already consulted. Wound care to follow. SIGNATURE: Petra Baxter RN PATIENT NAME: Davina Green DATE: December 22, 2017 TIME: 9:12 AM CONTACT#: [id number] CONSULT Observed: 12/22/2017 Status: COMPLETED Source: [place] 9:09 AM [facility] REPOSITORY HNO ID: [id number] Author: Caitlyn Hidalgo Service: Infectious Disease Author Type: Physician Type: Consults Filed: 12/22/2017 9:09 AM Note Text: 9:09 AM Consult dictated # [id number] Start vanco, aztreonam and flagyl. Check xray of L foot, may need MRI. NUTRITION Observed: 12/22/2017 Status: COMPLETED Source: [place] 8:53 AM [facility] REPOSITORY HNO ID: [id number] Author: Johanne Zamora) Amanda Service: Nutrition Therapy Author Type: Registered Dietitian Type: Nutrition Filed: 12/22/2017 1:26 PM Note Text: NUTRITION THERAPY INITIAL ASSESSMENT SERVICE DATE: 12/22/2017 SERVICE TIME: 10:50 RECOMMENDED MALNUTRITION DIAGNOSIS: NO MALNUTRITION IDENTIFIED NUTRITION CARE PLAN: Problem, Etiology and Signs/Symptoms: Increased nutrient needs related to toe wound as evidenced by non-healing toe post amputation. Intervention: 1. Encouraged PO intake. Monitor and Evaluation: Goal: Meet >75% of estimated needs Monitor fluid/electrolyte balance Monitor labs, I/Os, vital signs, weight Discharge Nutrition Recommendations: Diet: Carbohydrate Controlled Reason for Assessment: MST 3 Per HPI: This patient is a 62 year old female with the PMH of diabetes, HTN, CVA presented with left foot pain due to left toe abcess since the amputation. 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 who had concerns for ongoing infection and wanted the abscess to be drained. The patient says that she noticed ankle and toe swelling since the last 2 days. She rated the pain as 10 in intensity, sharp in nature and constant, relieved by oxycodone. We put her on PO percocet for the pain. She did notice the skin was erythematous. No history of fever, chills, NVD. She does complain of ongoing dizziness ever since she had carotid surgery for CVA . Reports 30 lbs weight loss in the last 6 months despite having normal appetite. ACTIVE PROBLEM LIST Stroke/Cerebrovascular Accident (Hcc) Lumbago-Sciatica Due to Displacement of Lumbar Intervertebral Disc Ddd (Degenerative Disc Disease), Lumbar Cannabis Abuse Lichen Planus Lumbar Facet Arthropathy ([facility]) Essential Hypertension, Benign Nasal Obstruction Myofascial Pain Diabetic Nephropathy With Proteinuria ([facility]) Hyperlipidemia With Target Ldl Less Than 100 History of Cerebrovascular Accident (Cva) With Residual Deficit Urge Incontinence of Urine Spastic Neurogenic Bladder Moderate Single Current Episode of Major Depressive Disorder ([facility]) Type 2 diabetes mellitus with microalbuminuria, without long- term current use of insulin ([facility]) Diabetic Ulcer of Toe of Left Foot Associated With Type 2 Diabetes Mellitus, Limited to Breakdown of Skin ([facility]) Lumbar Radiculopathy Gangrene ([facility]) Wound Abscess Depression PAST MEDICAL HISTORY Diagnosis Date - Anxiety - Benign hypertension 08/07/2015 - Cannabis abuse 02/23/2010 - Carotid artery disorder ([facility]) Right sided - Carotid stenosis 03/11/2010 - Cervical cancer ([facility]) - CVA (cerebral infarction) 11/2009 L hemiparesis and decreased coordination - DDD (degenerative disc disease), lumbar 02/23/2010 - Diabetic nephropathy with proteinuria ([facility]) 03/18/2014 - Diabetic ulcer of toe of left foot associated with type 2 diabetes mellitus, limited to breakdown of skin ([facility]) 10/17/2017 - Environmental allergies - Essential hypertension, benign 06/22/2012 - 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 ([facility]) - Hyperlipidemia - Lichen planus 11/09/2010 - Lumbago-sciatica due to displacement of lumbar intervertebral disc 02/23/2010 - Lumbar radiculopathy 10/17/2017 left sciatica - PVD (peripheral vascular disease) ([facility]) 2017 - Spastic neurogenic bladder 05/14/2015 - Tobacco abuse - Type 2 diabetes mellitus with microalbuminuria, without long-term current use of insulin ([facility]) 05/08/2017 PAST SURGICAL HISTORY Procedure Laterality Date - AMPUTATION METATARSAL+TOE,SINGLE Left 12/11/2017 partial 5th toe - COLONOSCOP W/ OR W/O BRSH SPEC 04/11/2016 Colonoscopy - EGD W/O OR W/BRUSH/WASH 04/11/2016 EGD - LUMBAR OR CAUDAL EPIDURAL STEROID INJECTION 02/21/2011 - PAST SURGICAL HISTORY OF Exploratory surgery for cervical ca Present Diet Order: Carbohydrate Controlled Enteral Access: none Nutritional Intake Prior to Admission: Patient reported that her appetite was good prior to admission and her PO intake currently remains at baseline. Patient reports that she usually eats 3 meals per day. She said that she was at [facility] yesterday for surgery but [facility] decided to transfer her to [facility] for the procedure. At the time of visit patient reported that she hadn't eaten anything yesterday or today. Patient was upset because nobody was able to answer whether she was able to eat anything today. Nurse came in and gave patient breakfast during visit since diet order was placed. Patient reported 30 pound weight loss in 3 months but didn't seem confident of these numbers. Per HANDP patient Reports 30 lbs weight loss in the last 6 months despite having normal appetite. Patient was able to confirm that her PO intake hasn't changed and she is just losing weight. I wasn't able to verify weight changes per previously recorded weights. GI symptoms: none Abdominal Exam: abdomen is soft and nondistended Is the patient having any pain that is interfering with oral/enteral intake? No ANTHROPOMETRICS Height: 152.4 cm (5') Admission Weight: 56.7 kg (125 lb) Current Weight: 56.7 kg (125 lb) Body mass index is 24.41 kg/m?. normal Weight has decreased by 2.3 kg over 1 month representing 3.9 % weight change which is not clinically significant.. Last Wt 12/21/17 : 56.7 kg (125 lb) - bed wt. 11/24/17 : 59 kg (130 lb) 11/10/17 : 59.4 kg (131 lb) 10/17/17 : 58.5 kg (129 lb) 11/04/16 : 65.3 kg (144 lb) 08/11/16 : 67.6 kg (149 lb) 04/11/16 : 65.7 kg (144 lb 13.5 oz) 03/28/16 : 65.8 kg (145 lb) 08/07/15 : 71.2 kg (157 lb) 04/20/15 : 68.9 kg (152 lb) 03/18/14 : 65.8 kg (145 lb) 11/09/12 : 72.6 kg (160 lb) 06/22/12 : 67.6 kg (149 lb) 02/08/11 : 79.4 kg (175 lb) 11/09/10 : 79.4 kg (175 lb) 10/12/10 : 80.3 kg (177 lb) 03/04/10 : 76.2 kg (168 lb) 02/23/10 : 79.4 kg (175 lb) 01/28/10 : 75.8 kg (167 lb) Usual Body Weight: Patient reported weighing 165 lbs at one point. Patient was last near this weight on 11/09/12 [place] Body Weight: 47.7kg Resting Metabolic Rate: 1052 Estimated kilocalorie needs: 0008-2418 kilocalories determined by 25-30 kcal/kg Estimated protein needs: 68-85 grams determined by 1.2-1.5 g/kg Current weight Estimated fluid needs: 9805-6234 milliliters based on 1 mL per kcal NUTRITION FOCUSED PHYSICAL EXAM: Subcutaneous Fat Loss Orbital Mild Triceps Mild Mid-axillary at the iliac crest No fat loss Muscle Loss Locations: Temporalis Moderate Pectoralis No muscle loss Deltoids No muscle loss Interosseous Mild Latissimus dorsi, trapezius Mild Quadriceps Unable to determine at this time Gastrocnemius Mild Potential micronutrient deficiency revealed in: Skin - dry and flaky Teeth - poor dentition Edema: No Ascites: No Assessment of Functional Status: Functional capacity is unrelated to nutrition status Temperature Max in 24 hours: Temp (24hrs), Av.9 ?C (98.5 ?F), Min:36.8 ?C (98.2 ?F), Max:37.1 ?C (98.8 ?F) BP 139/50 Pulse 68 Temp 37.1 ?C (98.8 ?F) (Oral) Resp 16 Ht 152.4 cm (5') Wt 56.7 kg (125 lb) SpO2 100% BMI 24.41 kg/m? Recent Labs 12/22/17 0422 12/21/17 1045 GLUC -- 174* BUN -- 31* CREAT -- 0.96* NA -- 135* K -- 4.3 CHLOR -- 105 CO2 -- 22 ALB -- 2.6* CRP -- 6.65* HB 11.4 10.8* HCT 35.2 34.6 WBC 9.69 9.23 Potential Signs of Inflammation: hyperglycemia, hypoalbuminemia and high CRP Current Facility-Administered Medications: insulin lispro pen (rapid acting) (HumaLOG KWIKPEN) SUBCUTANEOUS w MEALS iv contrast (radiology procedure) INTRAVENOUS DIRECTED PRN amLODIPine 10 mg tab(s) (NORVASC) 10 mg ORAL DAILY insulin glargine 14 Units pen (long acting) (LANTUS SOLOSTAR, BASAGLAR KWIKPEN) 14 Units SUBCUTANEOUS AT BEDTIME enoxaparin 40 mg injection (LOVENOX) 40 mg SUBCUTANEOUS DAILY 0.9% NaCl 3-5 mL 3-5 mL INTRAVENOUS q 12 H dextrose 40 % 15 g 15 g ORAL PRN Or glucagon 1 mg injection (GLUCAGEN) 1 mg INTRAMUSCULAR PRN Or dextrose 50% in water 25 mL syringe 12.5 g INTRAVENOUS PRN oxyCODONE-acetaminophen 5-325 mg 1-2 tablet (PERCOCET) 1-2 tablet ORAL q [address] 40 mg tab(s) (PROTONIX) 40 mg ORAL DAILY (6 AM) Intake/Output 12/21/17 0700 - 12/22/17 0659 12/22/17 0700 - 12/23/17 0659 Intake (ml) -- -- Output (ml) 600 0 Net (ml) -600 0 Surgical Incision 12/21/17 Toes - Left Foot (Active) Dressing Status Clean, Dry AND Intact 12/21/2017 8:30 PM Drainage Description None 12/21/2017 8:30 PM Drainage Amount None 12/21/2017 8:30 PM Hematoma No 12/21/2017 8:30 PM Number of days: 1 MNT Billing Type: Initial Assess/15 min 5 units SIGNATURE: JOHANNE PATEL RD PATIENT NAME: Davina Peter DATE: December 22, 2017 TIME: 8:53 AM PAGER: [id number] LOWER EXT ARTERIAL Observed: 12/22/2017 Status: F Source: [facility] 7:56 AM [facility] REPOSITORY [facility] Cardiovascular Services [address] [place] [address] [place] [address] 12/22/17 0749 MR#: [id number] Acct: [id number] Name: DAVINA GREEN Rep #: [id number] : 1955 62 From: Mandy Koehler MD Attending Dr: Mike Christensen Status: DIS IN Ordering Dr: Date: 12/22/17 Location: [facility] Sex: F C Admitted: 12/20/17 Arterial Study - Arterial Study Arterial Study: This is a 62-year-old female who presented with a chronic nonhealing wound to the left lower extremity. The patient has a history of severe peripheral arterial occlusive disease. The patient is brought to the noninvasive vascular laboratory at this time for the purpose of bilateral noninvasive lower extremity arterial assessment. Doppler signal assessment was used to evaluate the pulses at ankle level bilaterally. On the right, the posterior tibial and dorsalis pedis pulses were biphasic. On the left, the posterior tibial and dorsalis pedis pulses were monophasic. Segmental limb pressures were obtained bilaterally. The right ankle pressure, as determined by posterior tibial pulse, was measured at 108 mmHg. The right ankle pressure, as determined by dorsalis pedis pulse, was measured at 121 mmHg. The right digital pressure was measured at 77 mmHg. The left ankle pressure, as determined by posterior tibial pulse, was measured at 80 mmHg. The left ankle pressure, as determined by dorsalis pedis pulse, was measured at 74 mmHg. The left digital pressure was measured at 31 mmHg. Pulse-volume recordings were obtained bilaterally. Waveform amplitudes appeared to be normal at ankle level bilaterally. Waveform amplitudes were severely diminished bilaterally at digital level. Resting ankle-brachial indices were calculated bilaterally. The resting right ankle-brachial index was calculated to be 0.80. The resting left ankle-brachial index was calculated to be 0.53. Digital-brachial indices were calculated bilaterally. The right digital-brachial index was calculated to be 0.51. The left digital-brachial index was calculated to be 0.21. Impression: Based upon the findings of this resting noninvasive lower extremity arterial study, there is evidence of mild to moderate arterial occlusive disease in the right lower extremity, and moderate to severe arterial occlusive disease in the left lower extremity. Biphasic waveforms are noted at ankle level on the right. Monophasic waveforms are noted at ankle level on the left. The resting right ankle-brachial index is mildly to moderately diminished. The resting left ankle-brachial index is moderately diminished. The right digital-brachial index is mildly to moderately diminished, consistent with mild to moderate diminution of arterial flow at digital level on the right. The left digital-brachial index is moderately to severely diminished, consistent with moderate to severe impairment of arterial flow at digital level in the left lower extremity. 12/22/17 0756 <Electronically signed by Mandy Koehler MD> Date Mandy Koehler MD CC: Ivy Jimenez III, MD; Mike Lopezbushrasunday Date Dictated: 12/22/17748 Date Transcribed: 12/22/17748 Renewable Energy Technician: PATY Machuca URINALYSIS ROUTINE Collected: 12/22/2017 Status: F Source: [facility] 4:25 AM HEALTH SYSTEM REPOSITORY TYPE CODE TESTS RESULT OUT OF RANGE REFERENCE UNITS LAB COLOR(LOIN C) Urine Color YELLOW LAB APPUR(LOIN C) Urine Appearance CLEAR LAB GLUUR(LOIN Negative mg/dL C) Glucose Urine NEGATIVE LAB KETON(LOIN Negative mg/dL C) Ketone Urine NEGATIVE LAB HGBUR(LOIN Negative C) Hemoglobin,Urin NEGATIVE e LAB PROTU(LOIN Negative mg/dL C) Abnormal Protein Urine 300 LAB NITRI(LOIN Negative C) Nitrites Urine NEGATIVE LAB BILIU(LOIN Negative C) Bilirubin Urine NEGATIVE LAB SPG(LOINC) 1.005-1.030 Specific 1.021 [place], Ur LAB PHUR(LOINC 5.0-8.0 ) pH,Urine 6.5 LAB UROBI(LOIN 0.0-1.0 EU/dL C) Urobilinogen,Ur 0.2 LAB LEUKO(LOIN Negative C) Leukocytes NEGATIVE Esterase LAB RBCU1(LOIN 0.0-5.0 /hpf C) RBC,Urine 4.8 LAB WBCU1(LOIN 0.0-5.0 /hpf C) WBC, Urine 0.4 LAB EPIT1(LOIN 0.0-5.0 /hpf C) Ep Cells Urine 2.4 LAB BACT1(LOIN None C) Bacteria Urine NONE LAB HYCA1(LOIN 0.0-1.0 /lpf C) Hyaline Cast 0.0 Performed By: #### URIN2 #### [facility] [address] [place] [address] HEMOGRAM Collected: 12/22/2017 Status: F Source: [facility] 4:22 AM HEALTH SYSTEM REPOSITORY TYPE CODE TESTS RESULT OUT OF REFERENCE UNITS RANGE LAB WBC(LOINC) 3.98-10.04 thou/cmm WBC 9.69 LAB RBC(LOINC) 3.93-5.22 mil/cmm Low RBC 3.85 LAB HGB(LOINC) 11.2-15.7 g/dL Hgb 11.4 LAB HCT(LOINC) 34.1-44.9 % Hct 35.2 LAB MCV(LOINC) 79.4-94.8 fl MCV 91.4 LAB MCH(LOINC) 25.6-32.2 pg MCH 29.6 LAB MCHC(LOINC) 31.6-34.8 % MCHC 32.4 LAB RDW(LOINC) 11.7-14.4 % RDW 13.9 LAB RDWSD(LOINC 36.4-46.3 fl ) High RDW SD 46.5 LAB PLT(LOINC) 182-369 thou/cmm High Platelet 386 LAB MPV(LOINC) 9.4-12.3 fl MPV 9.7 Performed By: #### CBC1 #### [place] [address] SED RATE Collected: 12/22/2017 Status: F Source: [facility] 4:22 AM HEALTH SYSTEM REPOSITORY TYPE CODE TESTS RESULT OUT OF RANGE REFERENCE UNITS LAB ESR(LOINC) 0-20 mm/hr High Sed Rate 94 Performed By: #### ESR #### [place] [address] CONSULT Observed: 12/22/2017 Status: COMPLETED Source: [place] 12:00 AM CLINIC OTHER CAMPUS REPOSITORY O ID: [id number] Author: Caitlyn Hidalgo Service: Infectious Disease Author Type: Physician Type: Consults Filed: 12/22/2017 10:03 AM Note Text: [facility] - Consultation PATIENT NAME: DAVINA GREEN CSN: [id number] DATE OF : 1955 SEX/AGE: F/62 PATIENT TYPE: I HOSP SVC: INT LOCATION: [id number] DATE OF SERVICE: 12/22/2017 INFECTIOUS DISEASE CONSULTATION REASON FOR CONSULTATION: Left diabetic foot infection, antibiotic management. HISTORY OF PRESENT ILLNESS: This patient is a 62-year-old woman with multiple medical problems including diabetes mellitus type 2, who developed gangrene of her left fifth toe. She underwent an amputation of it about 2 weeks ago. Then, about a week ago, she noted that her left foot was getting red, swollen, and painful. She denies any fevers or chills. She denies any trauma to her foot. She denied any pus or drainage from it. She went back and saw her cooling tower operator, who recommended that she go to the ER for admission. In the ER, she was afebrile. I see an x-ray ordered from 12/19, which was done at [facility]. This shows soft tissue swelling and air laterally after the surgery. She was admitted to the regular nursing floor. The primary team ordered vancomycin and cefepime. They consulted to the Orthopedic Surgery Service. The Wound Center team was consulted and they are currently in the room now evaluating the patient. We have been asked to make further antibiotic recommendations. PAST MEDICAL HISTORY: Diabetes mellitus type 2, hypertension, stroke, anxiety, hypertension, diabetic nephropathy, degenerative disk disease, hyperlipidemia, lichen planus, and peripheral vascular disease and cervical cancer. PAST SURGICAL HISTORY: Left fifth toe amputation as above, epidural steroid injection, and exploratory surgery for cervical cancer. ALLERGIES: Lipitor, penicillin, which causes hives and swelling, Pravachol, and Prozac. CURRENT MEDICATIONS: Normal saline, Norvasc, Benadryl, Lovenox, insulin, and Protonix. SOCIAL HISTORY: The patient is retired. She is an ex-smoker. She quit a few weeks ago and says she smoked half a pack of cigarettes a day. She does not drink alcohol or use drugs. FAMILY HISTORY: Her parents are . They both of myocardial infarctions. REVIEW OF SYSTEMS: She received a flu shot. She received a Pneumovax. She wears glasses. She denied any headaches. She denied blurry vision. She denied coughing, chest pain, or shortness of breath. She denied hemoptysis. She denied abdominal pain. She denied nausea, vomiting, diarrhea, or constipation. She denied dysuria or hematuria. She denied myalgias or arthralgias. She denied easy bruising or easy bleeding. She denied feeling anxious or depressed. The rest of review of systems was negative. PHYSICAL EXAMINATION: VITAL SIGNS: Temperature 37.1, pulse 68, respiratory rate 16, and blood pressure 139/50. GENERAL APPEARANCE: This is a thin middle-aged woman, lying in bed, looks somewhat older than her stated age. HEENT: Normocephalic and atraumatic. Anicteric sclerae. The oral mucosa was moist. There is no thrush. Her dentition was poor. NECK: Supple. LUNGS: Clear to auscultation with diminished breath sounds. I did not hear any wheezing, rales, or rhonchi. CARDIOVASCULAR EXAM: Regular rate and rhythm. S1 and S2. I did not hear any murmurs, rubs, or gallops. ABDOMEN: Soft, flat, and nontender. Positive bowel sounds. EXTREMITIES: There was erythema over the left dorsal side of the foot. There was edema and tenderness. I cannot express any pus or drainage from the incision on the left foot. DP pulses are 1+ bilaterally. SKIN: Warm and dry. No rashes. NEUROLOGIC EXAM: Alert and oriented x3. Cranial nerves II through XII grossly intact. LABORATORY DATA: There is a sedimentation rate of 94. White count 9.6, hemoglobin 10.4, and platelet count 386,000. There is a set of blood cultures yesterday negative. GFR is 58. C-reactive protein 6.6. Sodium 135, potassium 4.3, chloride 105, CO2 is 22, glucose 174, BUN 31, and creatinine 0.9. ASSESSMENT AND PLAN: This is a 62-year-old woman, who presents with a left diabetic foot infection after undergoing a toe amputation. She has had a fifth toe amputation for gangrene about 2 weeks ago. I am concerned about an underlying deep infection. I am going to order an x-ray of the foot and she may need an MRI as well. I am going to order a methicillin-resistant Staphylococcus aureus screen. I am going to encourage right leg elevation. I am going to start her on vancomycin, aztreonam, and Flagyl, which will cover for gram-positives, gram- negatives, and anaerobes. The Orthopedic Surgery Service has been consulted and we will await their recommendations. Thank you for this consultation. I will follow closely with you. Caitlyn Hidalgo MD, MS, FACP, [facility] Infectious Disease RRW:amy /[id number] CNPTOUTREACH Observed: 12/22/2017 Status: COMPLETED Source: [place] 12:00 AM [facility] REPOSITORY Patient Outreach (FAMPWS) DAVINA GREEN ([id number]) 1955 F Date Time Provider Department 12/22/17 [facility] BUTLER[facility] During your visit today, we recorded the following information about you: Sumanth Butler MA 12/22/2017 2:10 PM Signed Patient will be opted out the Care Gap registry. This was discussed at the teamlet meeting. Per Dr. Barbara Butler MA Allergies As of Date: 12/22/2017 Noted Allergy Reaction LIPITOR (ATORVASTATIN CALCIUM) 02/23/2010 14 - Other: See Comments Comments: fatigue PENICILLINS 01/28/2010 4 - Hives 7 - Swelling Comments: Updated 12/22/[address] Chaparrita Hidalgo PRAVACHOL (PRAVASTATIN SODIUM) 03/04/2010 5 - Intolerance Comments: Fatigue, loss of appetite. PROZAC (FLUOXETINE HCL) 08/07/2015 1 - Mental Status Change Comments: sleepiness Date Reviewed: 12/22/2017 Reviewed by: Johanne (Rn) INES Bolton - Fully Assessed Reason for Visit: [facility]/Care Gap Outreach [3605] Prescriptions as of 12/22/2017 Sig: DICYCLOMINE 20 MG TABLET Take 1 tablet by mouth three * MOMETASONE 0.1 % TOPICAL CREAM Apply 1 application to affect* SERTRALINE 100 MG TABLET Take 1 tablet by mouth once d* INSULIN GLARGINE (U-100) 100 * Inject 14 Units subcutaneousl* INSULIN LISPRO (U-100) 100 UN* Inject 5 Units subcutaneously* PEN NEEDLE, DIABETIC 31 GAUGE* Use one needle with each insu* ALCOHOL SWABS Apply 1 application to affect* BLOOD SUGAR DIAGNOSTIC STRIPS Test blood sugar(s) 4 times d* LANCETS 28 GAUGE Test blood sugar(s) 4 times d* SIMETHICONE 125 MG CHEWABLE T* Take 1 tablet by mouth every * SUMATRIPTAN 50 MG TABLET 50mg by mouth as needed for m* ACETAMINOPHEN ER 650 MG TABLE* Take 2 tablets by mouth twice* NAPROXEN 500 MG TABLET Take 1 tablet by mouth twice * OMEPRAZOLE 20 MG CAPSULE,GRABIEL* Take 1 capsule by mouth daily* DIPHENHYDRAMINE 50 MG CAPSULE Take 1 capsule by mouth every* BUPROPION XL 150 MG TAB Take 1 tablet by mouth once d* LISINOPRIL 10 MG-HYDROCHLOROT* Take 1 tablet by mouth every * AMLODIPINE 10 MG TABLET Take 1 tablet by mouth once d* BUSPIRONE 10 MG TABLET Take 1 tablet by mouth three * Problem List As Of Date 12/22/2017 Noted Resolved Stroke/Cerebrovascular Accident [I63.9] INVALID FOR* Lumbago-Sciatica due to Displacement of Lumbar *INVALID FOR* DDD (Degenerative Disc Disease), Lumbar [M51.36]INVALID FOR* Cannabis Abuse [F12.10] INVALID FOR* Lichen planus [L43.9] INVALID FOR* Lumbar facet arthropathy [M46.96] INVALID FOR* Essential hypertension, benign [I10] INVALID FOR* More... Nasal obstruction [J34.89] INVALID FOR* Myofascial pain [M79.1] INVALID FOR* Diabetic nephropathy with proteinuria (HCC) [E1*INVALID FOR* Hyperlipidemia with target LDL less than 100 [E*INVALID FOR* History of cerebrovascular accident (CVA) with *INVALID FOR* Urge incontinence of urine [N39.41] INVALID FOR* Spastic neurogenic bladder [N31.9] INVALID FOR* Moderate single current episode of major depres*INVALID FOR* Type 2 diabetes mellitus with microalbuminuria,*INVALID FOR* More... Diabetic ulcer of toe of left foot associated w*INVALID FOR* Lumbar radiculopathy [M54.16] INVALID FOR* More... Gangrene (HCC) [I96] INVALID FOR* More... Wound abscess [T81.4XXA] INVALID FOR* More... Depression [F32.9] INVALID FOR* More... Encounter Status:Closed by SUMANTH BUTLER on 12/22/17 Observed: 12/21/2017 Status: F Source: [facility] CULT BLOOD 10:50 PM HEALTH SYSTEM REPOSITORY Test performed at [facility] No growth Performed By: #### C_BLO #### [facility] [address] [id number] HISTORY PHYSICAL Observed: 12/21/2017 Status: COMPLETED Source: [place] 10:26 PM CLINIC OTHER CAMPUS REPOSITORY HNO ID: [id number] Author: Richard Temple Service: Hospital Medicine Author Type: Physician Type: HANDP Filed: 12/22/2017 2:51 PM Note Text: Hospital Medicine Service History and Physical Date of Service: December 21, 2017 Admitting Attending: Dr Fabian Primary Care Physician: Ivy Jimenez Chief Complaint: Left foot abscess HPI: This patient is a 62 year old female with the PMH of diabetes, HTN, CVA presented with left foot pain due to left toe abcess since the amputation. 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 who had concerns for ongoing infection and wanted the abscess to be drained. The patient says that she noticed ankle and toe swelling since the last 2 days. She rated the pain as 10 in intensity, sharp in nature and constant, relieved by oxycodone. We put her on PO percocet for the pain. She did notice the skin was erythematous. No history of fever, chills, NVD. She does complain of ongoing dizziness ever since she had carotid surgery for CVA . Reports 30 lbs weight loss in the last 6 months despite having normal appetite. Review of Systems: REVIEW OF SYSTEMS RAINEY: RESPIRATORY: Negative for cough, hemoptysis, wheezing, COPD, dyspnea or shortness of breath CARDIOVASCULAR: Negative for chest pain, leg swelling, hypertension, CHF or palpitations GI: No nausea, vomiting, or diarrhea : No history of dysuria, frequency or incontinence PSYCH: Unable to sleep some nights, + depression NEURO: No history of headaches, syncope, paralysis, seizures or tremors The remainder of the review of systems is noncontributory Past Medical History: PAST MEDICAL HISTORY Diagnosis Date - Anxiety - Benign hypertension 08/07/2015 - Cannabis abuse 02/23/2010 - Carotid artery disorder (HCC) Right sided - Carotid stenosis 03/11/2010 - Cervical cancer (HCC) - CVA (cerebral infarction) 11/2009 L hemiparesis and decreased coordination - DDD (degenerative disc disease), lumbar 02/23/2010 - Diabetic nephropathy with proteinuria ([facility]) 03/18/2014 - Diabetic ulcer of toe of left foot associated with type 2 diabetes mellitus, limited to breakdown of skin ([facility]) 10/17/2017 - Environmental allergies - Essential hypertension, benign 06/22/2012 - 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 ([facility]) - Hyperlipidemia - Lichen planus 11/09/2010 - Lumbago-sciatica due to displacement of lumbar intervertebral disc 02/23/2010 - Lumbar radiculopathy 10/17/2017 left sciatica - PVD (peripheral vascular disease) ([facility]) 2018 - Spastic neurogenic bladder 05/14/2015 - Tobacco abuse - Type 2 diabetes mellitus with microalbuminuria, without long-term current use of insulin ([facility]) 05/08/2017 Past Surgical History: PAST SURGICAL HISTORY Procedure Laterality Date - AMPUTATION METATARSAL+TOE,SINGLE Left 12/11/2017 partial 5th toe - COLONOSCOP W/ OR W/O BRSH SPEC 04/11/2016 Colonoscopy - EGD W/O OR W/BRUSH/WASH 04/11/2016 EGD - LUMBAR OR CAUDAL EPIDURAL STEROID INJECTION 02/21/2011 - PAST SURGICAL HISTORY OF Exploratory surgery for cervical ca Family History: FAMILY HISTORY Problem Relation Age of Onset - Coronary Artery Disease Father - Stroke Mother - Diabetes Maternal Grandmother Social History: Social History Substance Use Topics - Smoking status: Current Every Day Smoker Packs/day: 1.00 Types: Cigarettes - Smokeless tobacco: Never Used Comment: less then a pack. Has smoked since she was 15. - Alcohol use No Medications Prior to Admission: No current facility-administered medications on file prior to encounter. Current Outpatient Prescriptions on File Prior to Encounter: dicyclomine (BENTYL) 20 mg tablet Take 1 tablet by mouth three times daily before meals. mometasone (ELOCON) 0.1 % cream Apply 1 application to affected area once daily. sertraline (ZOLOFT) 100 mg tablet Take 1 tablet by mouth once daily. insulin glargine (BASAGLAR KWIKPEN U-100 INSULIN) 100 unit/mL (3 mL) inpn Inject 14 Units subcutaneously daily at bedtime. insulin lispro (HUMALOG KWIKPEN INSULIN) 100 unit/mL inpn Inject 5 Units subcutaneously w MEALS. acetaminophen (TYLENOL ARTHRITIS PAIN) 650 mg CR tablet Take 2 tablets by mouth twice daily as needed for Pain. naproxen (NAPROSYN) 500 mg tablet Take 1 tablet by mouth twice daily as needed for Pain. Take with food. omeprazole (PRILOSEC) 20 mg capsule Take 1 capsule by mouth daily before breakfast. 1/2 hr before meal. diphenhydrAMINE (BENADRYL) 50 mg capsule Take 1 capsule by mouth every 6 hours as needed for Itching/Rash. buPROPion XL (WELLBUTRIN XL) 150 mg 24 hr tablet Take 1 tablet by mouth once daily. lisinopril-hydrochlorothiazide (PRINZIDE,ZESTORETIC) 10-12.5 mg per tablet Take 1 tablet by mouth every morning. amLODIPine (NORVASC) 10 mg tablet Take 1 tablet by mouth once daily. busPIRone (BUSPAR) 10 mg tablet Take 1 tablet by mouth three times daily. Insulin [place], Disposable, (PEN NEEDLES) 31 gauge x 1/4 ndle Use one needle with each insulin dose. 4/day alcohol swabs (ALCOHOL WIPES) padm Apply 1 application to affected area four times daily. blood sugar diagnostic (FREESTYLE LITE STRIPS) test strip Test blood sugar(s) 4 times daily. Dx: Type 2 DM - Uncontrolled E11.65 Insulin: Yes lancets (FREESTYLE LANCETS) 28 gauge misc Test blood sugar(s) 4 times daily. Dx: Type 2 DM - Uncontrolled E11.65 Insulin: Yes Simethicone (GAS RELIEF) 125 mg chewable tablet Take 1 tablet by mouth every 6 hours as needed. SUMAtriptan (IMITREX) 50 mg tablet 50mg by mouth as needed for migraine headache; may repeat every 2 hrs as needed for migraine(max 4/day and 9/mo) Allergies: ALLERGIES Allergen Reactions - Lipitor [Atorvastat* Other: See Comments fatigue - Penicillins Hives - Pravachol [Pravasta* Intolerance Fatigue, loss of appetite. - Prozac [Fluoxetine * Mental Status Change sleepiness Physical Exam: BP 156/53 Pulse 86 Temp 37 ?C (98.6 ?F) (Oral) Resp 18 Ht 152.4 cm (5') Wt 56.7 kg (125 lb) SpO2 100% BMI 24.41 kg/m? I/Os: General appearance: Well appearing, alert, in no acute distress, well-hydrated, well nourished. Lungs: Lungs clear to auscultation. No wheezing, rhonchi, rales Heart: RRR without murmur, gallop, or rubs. No ectopy Abdomen: Abdomen soft, non-tender. Bowel sounds normal. No masses, organomegaly Assessment and Plan Assessment AND Plan, all Hosp Problems Active Hospital Problems as of 12/21/2017 Noted - Resolved Essential hypertension, benign 06/22/2012 - Present Current Assessment AND Plan ? Continue home med lisinopril Diabetic nephropathy with proteinuria ([facility]) 03/18/2014 - Present Type 2 diabetes mellitus with microalbuminuria, without long- term current use of insulin ([facility]) 05/08/2017 - Present Current Assessment AND Plan ? Lantus ? Sliding scale Gangrene ([facility]) 11/20/2017 - Present Current Assessment AND Plan ? Wound care ? Blood culture ? Wound culture ? MRI of the foot, for need to consult ID ? Start antibiotics after basic labs are back Wound abscess 12/21/2017 - Present Current Assessment AND Plan ? Wound care consulted ? Wound culture ? Blood culture ? PO Percocet for pain Depression 12/21/2017 - Present Current Assessment AND Plan ? Sertraline 100 mg Once daily Patient discussed with Dr. Live Fabian Please see House Medicine Service Attending Attestation for updated assessment and plan. SIGNATURE: Javier Benavides MD PATIENT NAME: Davina Green DATE: December 21, 2017 TIME: 10:26 PM PAGER/CONTACT #: [phone] House Medicine Service Attending Attestation I evaluated the patient and personally participated in the rico components. 62 yo female with hx of HTN, dyslipidemia, CVA with residual left hemiparesis, PAD (carotid stenosis), DM with nephropathy and neuropathy, allergic rhinits, DJD spine/chronic low back pain, neurogenic bladder, depression, anxiety, and marijuana/tobacco use, s/p recent admission for left diabetic foot ulcer s/p angioplasty and partial 5th ray amputation, admitted now with surgical site infection, concern for acute osteomyelitis. HX: Patient is confused regarding the reason for her transfer from [place] to [facility] and the management plan for her left foot. I explained that the foot is still infected, and that she may require additional surgical debridement pending the results of the MRI. She was seen by infectious disease who recommended aztreonam, metronidazole, and vancomycin for anti-microbial therapy. PE: BP 171/61 Pulse 81 Temp 36.9 ?C (98.4 ?F) (Oral) Resp 16 Ht 152.4 cm (5') Wt 56.7 kg (125 lb) SpO2 100% BMI 24.41 kg/m? . WD, thin, NAD. RRR with nl s1 and s2 and no murmurs. LCTAB without crackles, wheezes, or rhonchi. Abdomen soft, NT, ND without masses or HSM. No peripheral edema. Left foot dressing C/D/I. BMP wnl. LFTs notable for TP 7.1, albumin 2.6. ESR 94. BG 197, 96. MDM: Antibiotics per ID. Await orthopedic surgery recommendations pending results of MRI; consider repeating JOANA. Continue amlodipine and add back lisinopril for additional BP control. Patient amenable to repeat trial of statin. Encourage tobacco cessation. Richard Temple MD 12/22/2017 2:46 PM CONSULT PROG Observed: 12/21/2017 Status: COMPLETED Source: [place] 9:53 PM [facility] REPOSITORY HNO ID: [id number] Author: Raj GuillenD[facility] – DrumrightPAULINE Bae Service: Hospital Medicine Author Type: Health Casing Splitter Type: Consult Progress Note Filed: 12/21/2017 9:56 PM Note Text: Called office of [place], just needs to be put on list. CONSULT PROG Observed: 12/21/2017 Status: COMPLETED Source: [place] 9:51 PM [facility] REPOSITORY HNO ID: [id number] Author: PAULINE Hansen (Huc) Service: Hospital Medicine Author Type: Health Casing Splitter Type: Consult Progress Note Filed: 12/21/2017 9:51 PM Note Text: Left voicemail for Woundcare at 9:51PM. [facility] NURSING PROG Observed: 12/21/2017 Status: COMPLETED Source: [place] 8:56 PM [facility] REPOSITORY HNO ID: [id number] Author: Bret (Rn) INES Acosta Service: (none) Author Type: Registered Nurse Type: Nursing Progress Note Filed: 12/21/2017 8:56 PM Note Text: House Med resident notified that pt is here. Vital signs stable and pt resting comfortably in bed. Will continue to monitor. BEDSIDE GLUCOSE Collected: 12/21/2017 Status: F Source: [place] 4:40 PM [facility] REPOSITORY TYPE CODE TESTS RESULT OUT OF REFERENCE UNITS RANGE LAB L501.080 70-110 mg/dL High BEDSIDE GLU 130 Result Comment: MANAGEMENT OF PATIENT CARE PER NURSING PROTOCOL Performed By: #### L501.080 #### [facility] Point of Care [address] [place] [address] CONSULTATION Observed: 12/21/2017 Status: F Source: [place] 4:29 PM [facility] REPOSITORY [facility] Medical Records Department [address] [place] [address] Consultation 12/21/17 0816 MR#: [id number] Acct: [id number] Name: DAVINA GREEN Rep #: [id number] : 1955 62 From: Allie Pompa DPM PCP: Ivy Jimenez III, MD Status: ADM IN Y [place] [facility] [id number] ADDENDUM by NOA Pompa on 12/21/17 at 1629 Code Visit I have evaluated this patient and I have ordered JOANA on left foot. Patient has JOANA of 0.53 and 0.49 to left posterior tibial and left dorsalis pedis respectively. I have reviewed MRI and I have personally discussed with radiology. Given recent surgery, I suspect the inflammation on 5th metatarsal is post-surgical. there is a small foci of fluid and I suspect this to be seroma vs small hematoma. Certainly abscess is possible given redness but there is no fluctuance on exam. This patient is on antibiotic and redness appears to be improving. Her pain is well controlled on oral pain medication. I have discussed this case with patient and infectious disease. Patient does appear hemodynamically stable on antibiotics. Given her JOANA and darkening of incision, I would recommend transfer to [facility] or [facility] for further vascular work-up as we have no available vascular surgeons at this time at [facility]. I have significant concerns regarding any intervention from a podiatric stand point. I am concerned if intervention is performed without having vascular on board, if her foot becomes necrotic, there is no vascular surgeon at [place] that can intervene. I have spoken with hospitalist who will facilitate transfer 12/21/17 1629 <Electronically signed by Allie Pompa DPM> Date Allie Pompa DPM cc: NOA Pompa; Ivy Jimenez III, MD; Velma Mckinley MD * Signed Reason for Consult Date of Consultation: 12/21/17 Reason for Consultation: CELLULITIS OF LEFT FOOT History of Present Illness: The patient is a 62 year old F who has history of pad and gangrene underwent amputation of left 5th ray last week. intra-op cultures and pathology did not show any infection. she was discharged last and she was found to be doing very well. she had bandage changed on Monday of last week and her foot was stable per patient. over the past few days, her left foot began to swell and become increasingly painful. she was seen by me yesterday at which time, she was found to have redness and pain of left foot. she denies n/v/f/c. she does have pain to left foot. she was admitted to hospital where xrays and mri were performed. ] Past Medical History Past Medical History (Chronic Problems): Chronic Problems (Last Updated 12/20/17 @ 17:32 by Jose Neely DO) Chronic ulcer of buttock (Chronic) Abscess of buttock (Chronic) Diabetes mellitus (Chronic) Hypertension (Chronic) History of CVA (cerebrovascular accident) (Chronic) Caries (Chronic) Tobacco abuse (Chronic) Tobacco abuse counseling (Chronic) Carotid arterial disease (Chronic) Hyperlipidemia (Chronic) Medical History: Medical History (Last Updated 12/20/17 @ 17:32 by Jose Neely DO) PVD (peripheral vascular disease) (Acute) I73.9 Carotid arterial disease (Chronic) I77.9 Hyperlipidemia (Chronic) E78.5 Nicotine dependence (Acute) F17.200 Cellulitis and abscess of buttock (Acute) 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 Z89.422 Asthma J45.909 CVA (cerebral vascular accident) I63.9 Chronic back pain M54.9, G89.29 Depression F32.9 Diabetes E11.9 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 HTN (hypertension) I10 Allergies Penicillins Allergy (Verified 09/13/17 18:40) Rash Home Medications: Ambulatory Orders Medication Instructions Recorded Amlodipine [Norvasc] 10 mg PO QHS 12/18/15 Lisinopril [Zestril] 10 mg PO DAILY 12/18/15 busPIRone [Buspar] 5 mg PO TID 12/18/15 Sertraline HCl [Zoloft] 25 mg PO DINNER 10/11/16 Surgical History: Surgical History (Last Reviewed 12/20/17 @ 17:32 by Jose Neely DO) History of esophagogastroduodenoscopy (EGD) Z98.890 S/P carotid endarterectomy Z98.890 S/P colonoscopy Z98.890 Surgical History: - - Patient has undergone right carotid endarterectomy by Dr. Velma Jimenez approximately 7 years ago. She is a Ab0. Smoking Status: Former smoker Tobacco Use: Cigarettes Alcohol: None Drugs: None - *Family History Maternal Family History: Family History (Last Updated 11/08/17 @ 13:38 by Melva Ashby) Mother No problems noted. History Items: - - Patient's father in his 40s from myocardial infarction. Patient's mother in her 40s from a cerebrovascular accident. Patient Problems: Active and Suspected Problems (Last Updated 12/20/17 @ 17:32 by Jose Neely DO) Cellulitis of left foot (Acute) Objective: patient is alert and orientated. she does not appear to be in any distress left foot with surgical incision approximated with no dehisence. there is redness that does appear to be improving from yesterday outline. there is no drainage noted. there is pain to palpation of left 5th metatarsal. xray and mri reviewed. there is very small collection of fluid which could indicate abscess vs blood collection - Physical Exam Vital Signs Temp Pulse Resp BP Pulse Ox 98.5 F 68 16 128/78 H 98 12/21/17 03:01 12/21/17 03:01 12/21/17 03:01 12/21/17 03:01 12/21/17 03:01 Oxygen Delivery Method Room Air Weight: 61.4 kg Body Mass Index (BMI) 26.4 Intake and Output for Last 24 Hours Intake Total 663 / 663 301 / 301 Balance 663 / 663 301 / 301 Laboratory Tests Past 24 Hrs WBC 10.5 RBC 3.88 L Hgb 11.4 L POC Glucose POC Glucose 157 H 243 H 174 H Assessment/Plan All Active Problems (Last Updated 12/20/17 @ 17:32 by Jose Neely DO) Abscess of right buttock (Acute) 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 on exam, she has redness, pain but there does not appear to be any drainage. MRI reviewed. there is very small collection of fluid which could be abscess vs small collection of post-op blood. there is inflammation on bone but I suspect this to be post-surgical. given her pain, redness and concern of underlying fluid collection, we did discuss performing incision and drainage, irrigation of left foot wound, obtaining deep cultures of fluid and bone. patient informed that if we perform this procedure, there is possibility that we may not find any significant pus. She understands this. She does agree to proceed with incision and drainage. I did inform patient that I would perform I AND D today, pack open for 3 days and close on Monday. Today, the tissue quality does appear adequate to proceed with a scheduled closure of any surgical I AND D. if tissue quality changes, one may need to consider wound vac. I will consult ID. will discuss with operating room regarding or availability for today 12/21/17 0503 <Electronically signed by Allie Pompa DPM> Date Allie Pompa DPM Cosigner Signature (if applicable): Date CC: NOA Pompa; Ivy Jimenez III, MD; Velma Mckinley MD Signed BEDSIDE GLUCOSE Collected: 12/21/2017 Status: F Source: [place] 2:40 PM [facility] REPOSITORY TYPE CODE TESTS RESULT OUT OF REFERENCE UNITS RANGE LAB L501.080 70-110 mg/dL High BEDSIDE GLU 112 Result Comment: MANAGEMENT OF PATIENT CARE PER NURSING PROTOCOL Performed By: #### L501.080 #### [facility] Point of Care [address] [place], [place] [id number] Observed: 12/21/2017 Status: F Source: [facility][1] BLOOD 12:54 PM HEALTH SYSTEM REPOSITORY Test performed at [facility] No growth Performed By: #### C_BLO #### [facility] [address] [place], [place] [address] BEDSIDE GLUCOSE Collected: 12/21/2017 Status: F Source: [place] 11:45 AM [facility] REPOSITORY TYPE CODE TESTS RESULT OUT OF REFERENCE UNITS RANGE LAB L501.080 70-110 mg/dL High BEDSIDE GLU 125 Result Comment: MANAGEMENT OF PATIENT CARE PER NURSING PROTOCOL Performed By: #### L501.080 #### [facility] Point of Care [address] [place] [address] HEMOGRAM Collected: 12/21/2017 Status: F Source: [facility] 10:45 AM HEALTH SYSTEM REPOSITORY TYPE CODE TESTS RESULT OUT OF REFERENCE UNITS RANGE LAB WBC(LOINC) 3.98-10.04 thou/cmm WBC 9.23 LAB RBC(LOINC) 3.93-5.22 mil/cmm Low RBC 3.70 LAB HGB(LOINC) 11.2-15.7 g/dL Low Hgb 10.8 LAB HCT(LOINC) 34.1-44.9 % Hct 34.6 LAB MCV(LOINC) 79.4-94.8 fl MCV 93.5 LAB MCH(LOINC) 25.6-32.2 pg MCH 29.2 LAB MCHC(LOINC) 31.6-34.8 % Low MCHC 31.2 LAB RDW(LOINC) 11.7-14.4 % RDW 13.9 LAB RDWSD(LOINC 36.4-46.3 fl ) High RDW SD 47.6 LAB PLT(LOINC) 182-369 thou/cmm High Platelet 376 LAB MPV(LOINC) 9.4-12.3 fl MPV 9.6 Performed By: #### CBC1 #### [facility] [address] [id number] PROTIME Collected: 12/21/2017 Status: F Source: [facility] 10:45 AM HEALTH SYSTEM REPOSITORY TYPE CODE TESTS RESULT OUT OF REFERENCE UNITS RANGE LAB PTI(LOINC) 9.3-11.9 sec Prothrombin Time 10.6 LAB INR(LOINC) INR 1.01 Result Comment: Standard Therapy 2.0-3.0 High Dose 2.5-3.5 Performed By: #### PT #### [facility] [address] [place] [address] COMPREHENSIVE PANEL Collected: 12/21/2017 Status: F Source: [facility] 10:45 HEALTH SYSTEM REPOSITORY TYPE CODE TESTS RESULT OUT OF REFERENCE UNITS RANGE LAB NA(LOINC) 136-145 mEq/L Low Sodium Blood 135 LAB K(LOINC) 3.5-5.1 mEq/L Potassium Blood 4.3 LAB CL(LOINC) 98-107 mEq/L Chloride Blood 105 LAB CO2(LOINC) 21-32 mEq/L CO2 Blood 22 LAB GLU(LOINC) 70-99 mg/dL Glucose High Blood 174 LAB BUN(LOINC) 7-18 mg/dL BUN Blood High 31 LAB CREA(LOINC 0.51-0.95 mg/dL ) Creatinine High Blood 0.96 LAB CA(LOINC) 8.5-10.1 mg/dL Calcium Blood 8.6 LAB ALB(LOINC) 3.4-5.0 g/dL Low Albumin Blood 2.6 LAB TP(LOINC) 6.4-8.2 g/dL Total Protein 7.1 LAB AST(LOINC) 9-37 U/L AST-SGOT Blood 14 LAB ALT(LOINC) 12-78 U/L ALT-SGPT Blood 14 LAB ALKP(LOINC 46-116 U/L ) Alk Phosphatase 100 LAB BILIT(LOIN 0.2-1.0 mg/dL C) Total Bilirubin 0.2 LAB ANGAP(LOIN 8-16 C) Anion Gap 12 Performed By: #### P14 #### [facility] [address] [place], [place] [address] CRP Collected: 12/21/2017 Status: F Source: [facility] 10:45 AM HEALTH SYSTEM REPOSITORY TYPE CODE TESTS RESULT OUT OF RANGE REFERENCE UNITS LAB CRP3(LOINC) 0.00-0.30 mg/dL High CRP 6.65 Performed By: #### CRP3 #### [facility] [address] [place], [place] [address] CONSULTATION Observed: 12/21/2017 Status: F Source: [place] 10:41 AM [facility] REPOSITORY [facility] Medical Records Department [address] [place] [address] Consultation 12/21/17 1035 MR#: [id number] Acct: [id number] Name: DAVINA GREEN Rep #: [id number] : 1955 62 From: Velma Mckinley MD PCP: Ivy Jimenez III, MD Status: ADM IN Y Location: [place] [address] Problem List (1) Cellulitis of left foot Status: Acute Reason for Consult: foot swelling and redness Consulted by: Dr. 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 Pompa on 12/11. Discharged to [facility], had progressive foot pain, swelling, mild redness, some bloody drainage on dressing. No fever or chills, no outpt abx. Due to foot changes, sent to hospital, started on vanc/aztreonam, plan is for OR exploration today. Feeling ok. Reports swelling with PCN in past, no issues with keflex. Full ROS performed and neg except as noted above. - Medical History Past Medical History (Chronic Problems): Chronic Problems (Last Updated 12/20/17 @ 17:32 by Jose Neely DO) Chronic ulcer of buttock (Chronic) Abscess of buttock (Chronic) Diabetes mellitus (Chronic) Hypertension (Chronic) History of CVA (cerebrovascular accident) (Chronic) Caries (Chronic) Tobacco abuse (Chronic) Tobacco abuse counseling (Chronic) Carotid arterial disease (Chronic) Hyperlipidemia (Chronic) Allergies/Adverse Reactions: Allergies Penicillins Allergy (Severe, Verified 12/21/17 10:35) Swelling tolerated keflex in past with no issue Home Medications: Ambulatory Orders Medication Instructions Recorded Amlodipine [Norvasc] 10 mg PO QHS 12/18/15 Lisinopril [Zestril] 10 mg PO DAILY 12/18/15 busPIRone [Buspar] 5 mg PO TID 12/18/15 Sertraline HCl [Zoloft] 25 mg PO DINNER 10/11/16 - Social History SMOKING STATUS:: Former smoker Vital Signs Temp Pulse Resp BP Pulse Ox 98.3 F 78 18 141/70 H 94 12/21/17 08:45 12/21/17 08:45 12/21/17 08:45 12/21/17 08:45 12/21/17 08:45 Oxygen Delivery Method Room Air Weight: 61.4 kg Body Mass Index (BMI) 26.4 Laboratory Tests Past 24 Hrs WBC 10.5 RBC 3.88 L Hgb 11.4 L - Other Studies Radiology: [] reviewed Other Studies: [] Route of nutrition/ use of supplements: [] Nutritional Intake: [] IV Site: [] Marino Catheter: [] - Physical Exam General: Alert, Oriented x3, Cooperative, No apparent distress HEENT: Atraumatic, PERRLA, EOMI Neck: Supple, No Nodes Lungs: Clear to auscultation, Normal air movement Cardiovascular: Regular rate, Regular Rhythm Abdomen: Bowel Sounds Present, Soft, Non Tender, Non-Distended Extremities: Edema - mild Skin: Incision - L foot sutures intact, mild surrounding redness IV Site: Peripheral, without redness Musculoskeletal: No Tenderness to Palpation of Joints or Extremities Neurological: Cranial nerves II-XII grossly intact - Assessment/Plan Antibiotics: [] Assessment/Plan: [] Active and Suspected Problems (Last Updated 12/20/17 @ 17:32 by Jose Neely DO) Cellulitis of left foot (Acute) S/p 5th ray resection 12/11/[address] Pompa, now with some redness and swelling. MRI showed fluid collection. Will cover empirically with vanc/cefepime while surgery and cxs are pending. Reports tolerating keflex in past. Thank you, will follow, d/w Dr. Pompa. 12/21/17 1041 <Electronically signed by Velma Mckinley MD> Date Vel[facility]ckinley [facility] Signature (if applicable): Date CC: NOA Pompa; Ivy Jimenez III, MD; Velma Mckinley MD Signed BEDSIDE GLUCOSE Collected: 12/21/2017 Status: F Source: [place] 6:50 AM [facility] REPOSITORY TYPE CODE TESTS RESULT OUT OF REFERENCE UNITS RANGE LAB L501.080 70-110 mg/dL High BEDSIDE GLU 157 Result Comment: MANAGEMENT OF PATIENT CARE PER NURSING PROTOCOL Performed By: #### L501.080 #### [facility] Point of Care [address] [place] [address] HOSP Observed: 12/21/2017 Status: COMPLETED Source: [place] 12:00 AM CLINIC OTHER CAMPUS REPOSITORY Patient:Davnia Green MRN: <[id number]> Height:5' 0(1.524 m) Weight:125 lb (56.7 kg) Outpatient Medications as of 12/27/17: dicyclomine (BENTYL) 20 mg tablet mometasone (ELOCON) 0.1 % cream sertraline (ZOLOFT) 100 mg tablet insulin glargine (BASAGLAR KWIKPEN U-100 INSULIN) 100 unit/mL (3 mL) inpn insulin lispro (HUMALOG KWIKPEN INSULIN) 100 unit/mL inpn Insulin [place], Disposable, (PEN NEEDLES) 31 gauge x 1/4 ndle alcohol swabs (ALCOHOL WIPES) padm blood sugar diagnostic (FREESTYLE LITE STRIPS) test strip lancets (FREESTYLE LANCETS) 28 gauge misc Simethicone (GAS RELIEF) 125 mg chewable tablet SUMAtriptan (IMITREX) 50 mg tablet acetaminophen (TYLENOL ARTHRITIS PAIN) 650 mg CR tablet naproxen (NAPROSYN) 500 mg tablet omeprazole (PRILOSEC) 20 mg capsule diphenhydrAMINE (BENADRYL) 50 mg capsule buPROPion XL (WELLBUTRIN XL) 150 mg 24 hr tablet lisinopril-hydrochlorothiazide (PRINZIDE,ZESTORETIC) 10-12.5 mg per tablet amLODIPine (NORVASC) 10 mg tablet busPIRone (BUSPAR) 10 mg tablet Admission/Clinic Administered Medications as of 12/27/17: dextrose 5% in LR infusion (D5-LR) 0.9% NaCl 10 mL 0.9% NaCl 20 mL enoxaparin 40 mg injection (LOVENOX) ondansetron 4 mg tab(s) (ZOFRAN) ondansetron (PF) 4 mg injection (ZOFRAN) docusate sodium 100 mg cap(s) (COLACE) morphine 2 mg injection HYDROcodone 5 mg - acetaminophen 325 mg tablet (NORCO) acetaminophen 325 mg tab(s) (TYLENOL) pantoprazole DR 40 mg tab(s) (PROTONIX) lisinopril 30 mg tab(s) (ZESTRIL,PRINIVIL) vancomycin 750 mg in dextrose (iso-osmotic) 150 mL buPROPion XL 150 mg tab(s) (WELLBUTRIN XL) sertraline 100 mg tab(s) (ZOLOFT) fluocinonide 0.05 % (LIDEX) insulin lispro pen (rapid acting) (HumaLOG KWIKPEN) aztreonam iv piggyback 2 g in dextrose (iso-osmotic) 50 mL (AZACTAM) metroNIDAZOLE 500 mg PREMIX piggyback (FLAGYL) insulin lispro 5 Units pen (rapid acting) (HumaLOG KWIKPEN) atorvastatin 40 mg tab(s) (LIPITOR) diphenhydrAMINE 25 mg (BENADRYL) amLODIPine 10 mg tab(s) (NORVASC) insulin glargine 14 Units pen (long acting) (LANTUS SOLOSTAR, BASAGLAR KWIKPEN) dextrose 40 % 15 g glucagon 1 mg injection (GLUCAGEN) dextrose 50% in water 25 mL syringe Problem List: Stroke/cerebrovascular accident (HCC) [I63.9] Lumbago-sciatica due to displacement of lumbar intervertebral disc [M51.27] DDD (degenerative disc disease), lumbar [M51.36] Cannabis abuse [F12.10] Lichen planus [L43.9] Lumbar facet arthropathy (HCC) [M46.96] Essential hypertension, benign [I10] Nasal obstruction [J34.89] Myofascial pain [M79.1] Diabetic nephropathy with proteinuria (HCC) [E11.21] Hyperlipidemia with target LDL less than 100 [E78.5] History of cerebrovascular accident (CVA) with residual deficit [I69.30] Urge incontinence of urine [N39.41] Spastic neurogenic bladder [N31.9] Moderate single current episode of major depressive disorder (HCC) [F32.1] Type 2 diabetes mellitus with microalbuminuria, without long- term current use of insulin (HCC) [E11.29, R80.9] Diabetic ulcer of toe of left foot associated with type 2 diabetes mellitus, limited to breakdown of skin (HCC) [E11.621, L97.521] Lumbar radiculopathy [M54.16] Wound abscess [T81.4XXA] Depression [F32.9] Diabetes (HCC) [E11.9] Tobacco abuse [Z72.0] Foot abscess, left [L02.612] Penicillin allergy [Z88.0] Allergies: Lipitor [Atorvastatin Calcium] Penicillins Pravachol [Pravastatin Sodium] Prozac [Fluoxetine Hcl] Date Verified: 12/27/17 Lab Values Lab Value Units Date High Low POTA* 3.7 mEq/L 12/27/2017 5.1 3.5 SAMSON* 31.7 % 12/27/2017 44.9 34.1 Progress Notes ([facility]): Sumanth Butler MA 12/22/2017 2:10 PM Signed Patient will be opted out the Care Gap registry. This was discussed at the teamlet meeting. Per Dr. Barbara Butler MA Progress Notes ([facility]): Enma Silveira 12/22/2017 1:11 PM Signed Mr. Rodriguez (did not understand last name on voice mail message) a cooling tower operator at [facility]/[employer] left a voice mail message that he would like to speak to you regarding the care of Ms. Green at [facility]. His cell number is [phone] Enma Silveira BEDSIDE GLUCOSE Collected: 12/20/2017 Status: F Source: [place] 10:27 PM [facility] REPOSITORY TYPE CODE TESTS RESULT OUT OF REFERENCE UNITS RANGE LAB L501.080 70-110 mg/dL High BEDSIDE GLU 243 Result Comment: MANAGEMENT OF PATIENT CARE PER NURSING PROTOCOL Performed By: #### L501.080 #### [facility] Point of Care [address] [place] [address] BEDSIDE GLUCOSE Collected: 12/20/2017 Status: F Source: [place] 7:20 PM [facility] REPOSITORY TYPE CODE TESTS RESULT OUT OF REFERENCE UNITS RANGE LAB L501.080 70-110 mg/dL High BEDSIDE GLU 174 Result Comment: MANAGEMENT OF PATIENT CARE PER NURSING PROTOCOL Performed By: #### L501.080 #### [facility] Point of Care [address] [place] [address] FOOT MIN 3 VIEWS Observed: 12/20/2017 Status: F Source: [place] 7:10 PM [facility] REPOSITORY [facility] Imaging Services [address] [place] [address] Foot min 3 Views MR#: [id number] Acct: [id number] Name: Davina Green Rep #: [id number] : 1955 F 62 From: Live Turner DO PCP: Ivy Jimenez III, MD Status: ADM IN Study: Foot min 3 Views Date of Exam: 12/20/17 Exam# [id number] Ordering Dr: Allie Pompa DPM STUDY: X-RAY - LEFT FOOT CLINICAL: Female, 62 years old. Infection, left foot, cellulitis. TECHNIQUE: 3 view(s) of the foot. COMPARISON: None. FINDINGS: There is demineralization of the rear and midfoot bones. Normal visualized subtalar, talonavicular, calcaneocuboid, tarsal and tarsometatarsal articulations. There is amputation of the mid fifth metatarsal with adjacent soft tissue swelling and lucency suggestive of subcutaneous cutaneous emphysema near the amputation site. Diffuse demineralization of the remaining metatarsals are present. Normal metatarsophalangeal joint of the great toe. Normal tibial and fibular sesamoid bones. There is degenerative arthrosis of the interphalangeal joint of the great toe. Normal phalanges of the great toe. Normal second through fifth metatarsophalangeal joints. Normal interphalangeal joints and phalanges of the lesser toes. The soft tissue structures are unremarkable. RAD/Foot min 3 Views IMPRESSION: Mid fifth metatarsal amputation with surrounding soft tissue prominence and likely subcutaneous emphysema within this region suggestive of underlying abscess versus phlegmon in the appropriate clinical setting. Postsurgical changes are also a consideration. For definitive evaluation of osseous infection further evaluation with three-phase nuclear medicine bone scan or MRI may be obtained. Electronically Signed: Live Turner DO at 20:33 EDT , Service support , CC: NOA Pompa; Ivy Jimenez III, MD Renewable Energy Technician: Signed MRSA WOUND DNA BY Collected: 12/20/2017 Status: F Source: [place] PCR 6:10 PM [facility] REPOSITORY TYPE CODE TESTS RESULT OUT OF RANGE REFERENCE UNITS LAB L8200.1100 Negative Normal MRSA Negative RESULT LAB L8200.1150 Negative Normal SA RESULT NEGATIVE Performed By: #### L8200.1075 #### [facility] [address] [place], [address] CBC W/DIFF, AUTOMATED Collected: 12/20/2017 Status: F Source: [place] 5:58 PM [facility] REPOSITORY TYPE CODE TESTS RESULT OUT OF RANGE REFERENCE UNITS LAB L100.1000 4.4-11.0 K/mm3 Normal WBC 10.5 LAB L100.1200 4.2-5.4 M/mm3 Low RBC 3.88 LAB L100.1300 12.0-15.0 g/dl Low HGB 11.4 LAB L100.1400 37-47 % Low HCT 34.9 LAB L100.1500 81-99 fL Normal MCV 89.9 LAB L100.1600 27.0-32.0 pg Normal MCH 29.4 LAB L100.1700 32-36 g/gl Normal MCHC 32.7 LAB L100.1810 11.6-14.6 % Normal RDW CV 14.0 LAB L100.1820 35.1-43.9 fl High RDW SD 45.7 LAB L100.1900 150-450 K/mm3 Normal PLT 428 LAB L100.2000 6.2-12.0 fl Normal MPV 9.5 LAB L100.2100 47-70 % Normal NEUT% 68.2 LAB L100.2200 19-41 % Normal LY% 21.6 LAB L100.2300 0-10 % Normal MONO% 6.8 LAB L100.2400 0-5 % Normal EO% 2.7 LAB L100.2500 0-1 % Normal BASO% 0.5 LAB L100.2550 0.0-0.9 % Normal IM GRAN % 0.200 Result Comment: IG% - Immature Granulocytes (promyelocytes, myelocytes and metamyelocytes) > 1% indicates that a LEFT SHIFT is Present. LAB L100.2620 2.0-7.7 X10 3/uL Normal Absolute Neut 7.2 LAB L100.2720 0.83-4.51 X10 3/ul Normal Absolute Lymph 2.27 Performed By: #### L100.0100, L101.9900 #### [facility] [address] [place], [place], [id number] ERYTHROCYTE SED RATE Collected: 12/20/2017 Status: F Source: [place] 5:58 PM [facility] REPOSITORY TYPE CODE TESTS RESULT OUT OF RANGE REFERENCE UNITS LAB L102.0000 0-30 mm/hr High SED RATE 84 Performed By: #### L100.0100, L101.9900 #### [facility] [address] [place], [place], [id number] BASIC METABOLIC Collected: 12/20/2017 Status: F Source: [place] PROFILE (BMP) 5:58 PM [facility] REPOSITORY TYPE CODE TESTS RESULT OUT OF RANGE REFERENCE UNITS LAB L501.0100 74-106 mg/dL High GLU 161 Result Comment: Fasting Glucose result greater than or equal to 126 mg/dL suggests DIABETES MELLITUS per A.D.A. criteria. Please note revised GLUCOSE reference range effective 2017. LAB L501.1000 7-18 mg/dL High BUN 24 LAB L501.1100 0.55-1.02 mg/dL High CREAT,SERUM 1.12 Result Comment: The validity of the calculated GFR AND GFRAA in patients over 70 years has not been determined. Clinical correlation is essential. LAB L501.1110 >60 mL/min Low EST GFR 52 Result Comment: Non- GFR Calc LAB L501.1115 >60 mL/min Normal EST GFR - AA 63 Result Comment: GFR Calc LAB L501.1255 ml/min Normal Estimated CRCL 37.41 LAB L501.1300 10-20 RATIO High BUN/CRE 21.4 LAB L501.2200 8.5-10 mg/dL Normal .1 CA 9.0 LAB L501.5300 136-14 mmol/L Normal 5 NA 138 LAB L501.5600 3.5-5. mmol/L Normal 1 K 4.2 LAB L501.5900 98-107 mmol/L Normal CL 102 LAB L501.6100 21.0-3 mmol/L Normal 2.0 CO2 30.0 LAB L501.6200 5-15 Normal GAP 6 Performed By: #### L500.2500, L501.6710 #### [facility] [address] [facility] [place], [place], [address] CRP Collected: 12/20/2017 Status: F Source: [place] 5:58 PM [facility] REPOSITORY TYPE CODE TESTS RESULT OUT OF RANGE REFERENCE UNITS LAB L501.6710 0.0-3.0 mg/L High 59.50 C-REACTIVE PROT Result Comment: C-Reactive Protein (CRP) provides useful information for the diagnosis, therapy and monitoring of inflammatory processes and associated diseases. For the evaluation of Relative Risk for Cardiovascular Disease, a High Sensitivity CRP (HSCRP) should be ordered. Performed By: #### L500.2500, L501.6710 #### [facility] [address] [facility] [place], [place], [address] HISTORY AND PHYSICAL Observed: 12/20/2017 Status: F Source: [place] EXAM 5:36 PM [facility] REPOSITORY [facility] Medical Records Department [address] [place] [address] History and Physical 12/20/17 1730 MR#: [id number] Acct: [id number] Name: Davina Green Rep #: [id number] : 1955 62 From: Jose Neely DO PCP: Ivy Jimenez III, MD Status: ADM JAYLIN Y Location: [place] [id number] Problem List (1) Cellulitis of left foot Status: Acute History of Present Illness Date of Admission: 12/20/17 Chief Complaint: erythema and pain of left foot. The patient is a 62 year old F who underwent a partial fifth ray amputation of her left foot for dry gangrene. That was performed on the . Patient's course was unremarkable. Patient was heel weightbearing which she was states that she was following diligently. 2 days ago, patient noticed increased pain in her left foot and subsequently increased erythema. Patient saw Dr. Pompa who is concerned about cellulitis and possibly an underlying abscess and recommended hospitalization for IV antibiotics and MRI of her foot. He noted that the margins of her wounds were well approximated and did not get any purulence. [] Past Medical History Past Medical History (Chronic Problems): Chronic Problems (Last Reviewed 12/10/17 @ 11:23 by Jose Neely DO) Tobacco abuse (Chronic) Caries (Chronic) Carotid arterial disease (Chronic) History of CVA (cerebrovascular accident) (Chronic) Hyperlipidemia (Chronic) Hypertension (Chronic) Diabetes mellitus (Chronic) Abscess of buttock (Chronic) Tobacco abuse counseling (Chronic) Chronic ulcer of buttock (Chronic) Medical History: Medical History (Last Updated 12/20/17 @ 17:32 by Jose Neely DO) PVD (peripheral vascular disease) (Acute) I73.9 Carotid arterial disease (Chronic) I77.9 Hyperlipidemia (Chronic) E78.5 Nicotine dependence (Acute) F17.200 Cellulitis and abscess of buttock (Acute) 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 Z89.422 Asthma J45.909 CVA (cerebral vascular accident) I63.9 Chronic back pain M54.9, G89.29 Depression F32.9 Diabetes E11.9 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 HTN (hypertension) I10 Allergies Penicillins Allergy (Verified 09/13/17 18:40) Rash Home Medications: Ambulatory Orders Medication Instructions Recorded Amlodipine [Norvasc] 10 mg PO QHS 12/18/15 Surgical History: Surgical History (Last Reviewed 12/20/17 @ 17:32 by Jose Neely DO) History of esophagogastroduodenoscopy (EGD) Z98.890 S/P carotid endarterectomy Z98.890 S/P colonoscopy Z98.890 Surgical History: - - Patient has undergone right carotid endarterectomy by Dr. Velma Jimenez approximately 7 years ago. She is a Ab0. Smoking Status: Former smoker Tobacco Use: Cigarettes Alcohol: None Drugs: None - *Family History Maternal Family History: Family History (Last Updated 11/08/17 @ 13:38 by Melva Ashby) Mother No problems noted. History Items: - - Patient's father in his 40s from myocardial infarction. Patient's mother in her 40s from a cerebrovascular accident. Review of Systems Constitutional: Denies: Chills, Fever, Weight Change HEENT: Denies: Head Aches, Sinus Congestion, Sinus Drainage Cardiovascular: Denies: Chest Pain, Palpitations Respiratory: Denies: Cough, Shortness of breath at rest, Sputum production Gastrointestinal: Denies: Abdominal Pain, Nausea, Vomiting Genitourinary: Denies: Dysuria Musculoskeletal: Reports: - - foot pain.. Denies: Joint Pain, Joint Tenderness Skin: Reports: - - erythema of left foot. Comment: All review of systems are negative except as mentioned in the history of present illness and the other review of systems. VTE Information - Inpt Only VTE Present on Admission: No VTE Pharm Prophylaxis ordered?: Yes Patient Problems: Active and Suspected Problems (Last Reviewed 12/10/17 @ 11:23 by Jose Neely DO) Cellulitis of left foot (Acute) - Physical Exam General: Alert, Cooperative, No apparent distress HEENT: Atraumatic, Normocephalic Oral: Moist Mucosa, No Gingival or Mucosal Lesions/ Ulcerations Neck: No Nodes, Thyroid Normal Size and Texture Lungs: Clear to auscultation, Normal air movement, No rhonchi, No wheeze Cardiovascular: Regular rate, Regular Rhythm, Normal S1, Normal S2 Abdomen: Bowel Sounds Present, Soft, Non Tender, Non-Distended, No Hepato-splenomegaly Extremities: - - Trace edema of the left lower extremity. Slight edema of the left ankle and dorsum of her left foot. Skin: - - Left lateral foot incision is clean and intact. No purulence can be expressed. Very tender palpation. No fluctuance. Does have some erythema extending proximally. 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 Left foot cellulitis * Patient will be put on broad-spectrum antibiotics with vancomycin and aztreonam. Patient has penicillin allergy. * Podiatry will be on consult * Check an MRI of her foot * Check duplex to evaluate for any DVT as patient has limited weightbearing status 2. Diabetes mellitus type 2 * Continue with her home medications plus sliding scale 3. Peripheral arterial disease * Continue with Plavix * Follow-up Dr. Jimenez as outpatient 4. DVT prophylaxis with low molecular weight heparin Code Visit Inpatient E AND M: [id number] Init Hosp L2 12/20/17 1736 <Electronically signed by Jose Neely DO> Date Jose Neely DO Cosigner Signature: Date (if applicable) CC: Jose Neely DO; Ivy Jimenez III, MD Signed LOWER EXT/NO JT/W/O Observed: 12/20/2017 Status: F Source: [place] 5:30 PM [facility] REPOSITORY [facility] Imaging Services [address] [place] [address] Lower Ext/No Jt/w/o MR#: [id number] Acct: [id number] Name: DAVINA GREEN Rep #: [id number] : 1955 F 62 From: Live Turner DO PCP: Ivy Jimenez III, MD Status: ADM IN Study: Lower Ext/No Jt/w/o Date of Exam: 12/20/17 Exam# [id number] Ordering Dr: Jose Neely DO ADDENDUM by Aren Osman MD on 12/21/17 at 0844 MRI/Lower Ext/No Jt/w/o 12/21/17 08 Date cc: Jose Neely DO; Ivy Jimenez III, MD * Signed ADDENDUM by Aren Osman MD on 12/21/17 at 0844 ADDENDUM This addendum is issued in Dr. Turner's absence. The images were discussed with Dr. Pompa. The mild bone edema in the distal aspect of the fifth metatarsal at the fracture site is likely related to recent amputation. The small fluid collection at the amputation site may represent a seroma/hematoma rather than abscess. Electronically Signed: Aren Osman MD at 8:44 EDT Tel , Service support , 12/21/17 0844 Date cc: Jose Neely DO; Ivy Jimenez III, MD * Signed STUDY: MRI LEFT MIDFOOT REASON FOR EXAM: Female, 62 years old. Foot swelling after surgery 10 days ago. TECHNIQUE: Standardized fat and water weighted pulse sequences were obtained in all 3 orthogonal planes. COMPARISON: None. FINDINGS: Normal talonavicular articulation. Normal calcaneocuboid articulation. Normal navicular-cuneiform articulations. Normal intercuneiform articulations. Normal first tarsometatarsal articulation. Normal Lisfranc ligament. Normal second and third tarsometatarsal articulations. Normal cuboid fourth and cuboid fifth tarsometatarsal articulation. There is demonstrated amputation of the mid fifth metatarsal with noted surrounding edema and inflammation as seen on sagittal series 9 image 7. There is noted increased osseous edema of the distal metatarsal amputation site. There is a small focus of air within the soft tissues with surrounding edema present. Normal tibialis anterior tendon. Normal extensor hallucis longus tendon. Normal extensor digitorum longus tendons. Normal peroneus longus tendon and distal insertion. Normal peroneus brevis tendon and distal insertion. Normal intrinsic muscles of the mid and forefoot region. Normal extensor digitorum brevis muscle. Normal subcutis adipose space. MRI/Lower Ext/No Jt/w/o IMPRESSION: Mid fifth metatarsal amputation with distal osseous edema, small subcutaneous focus of air and surrounding inflammatory fluid consistent with soft tissue infection/abscess and early osteomyelitis of the distal metatarsal amputation site in the appropriate clinical setting. Electronically Signed: Live Turner DO at 22:15 EDT , Service support , CC: Jose Neely DO; Ivy Jimenez III, MD Renewable Energy Technician: Signed PROGRESS Observed: 12/20/2017 Status: COMPLETED Source: [place] 2:16 PM [facility] REPOSITORY HNO ID: [id number] Author: Allie Pompa Service: (none) Author Type: Physician Type: Progress Notes Filed: 12/20/2017 3:11 PM Note Text: Allie Pompa DPM Department of Podiatry [address] [place] [address] Dept: [phone] Dept DOS: 12/11/17 POD: 9 POV: 1 Surgical side: left. This 62 year old presents post op partial 5th ray amputation Pain level: 9/10 Denies vomiting, Denies fever, Denies chills, Denies shortness of breath. Pain Control: medication. Weightbearing status: Non Weight Bearing Patient had surgery last Monday for gangrene. She had pain for the first 2 post-op days. She was discharged on to rehab. Her foot was looking good and that her pain was improved. Cultures from surgery had no bacterial growth and pathology was negative for osteomyelitis. She had been doing very well and Monday her dressing was changed and she was doing well. Over the past day or so, she started feeling more swelling and more pain. She denies n/v/f/c. She states that she is nwb but she feels therapy has been really working her hard. Patient states she has not had much pain up until the past 2 days. She states her foot and ankle have both been painful and she has noticed swelling. She is taking oxycodone for pain and she states that helps. She is concerned about her pain and swelling. Objective: Incision site is well coapted with no evidenceof dehiscence. Sutures:intact. There is erythema to left foot. There is mild maceration to left lateral foot. No drainage. No lymphadenopathy. No lymphangitis. Patient has no pain to palpation of left calf. Negative Iverson's test. Assessment: (Z98.890) Post-operative state (primary encounter diagnosis) (L03.032, L02.612) Cellulitis and abscess of toe of left foot Plan: Patient was examined and informed of current findings She is 10 days s/p amputation of left 1st ray. She had been doing well at discharge from hospital. Cultures were negative for ostoemyelitis and pathology was negative. She had dressing change this past Monday and she was doing well. On exam today, she has redness, pain, swelling, no drainage. Discussed appearance of foot. Recommend admission to hospital. Recommend starting antibiotics. Recommend MRI for evaluation of underlying abscess. If infection present, will need incision and drainage and likely wound vac application. If no deep space infection, recommend iv antibiotics for few days and then switch to po. Patient will need mri of left foot. ID consult may be of benefit. Allie Pompa DPM CNOV Observed: 12/20/2017 Status: COMPLETED Source: [place] 1:55 PM [facility] REPOSITORY Office Visit (PODIWS) DAVINA GREEN ([id number]) 1955 F Date Time Provider Department 12/20/17 1:55 PM ALLIE POMPA PODIWS During your visit today, we recorded the following information about you: Allie Pompa DPM 12/20/2017 3:11 PM Signed Allie Pompa DPM Department of Podiatry [address] [facility] [address] Dept: [phone] Dept DOS: 12/11/17 POD: 9 POV: 1 Surgical side: left. This 62 year old presents post op partial 5th ray amputation Pain level: 9/10 Denies vomiting, Denies fever, Denies chills, Denies shortness of breath. Pain Control: medication. Weightbearing status: Non Weight Bearing Patient had surgery last Monday for gangrene. She had pain for the first 2 post-op days. She was discharged on to rehab. Her foot was looking good and that her pain was improved. Cultures from surgery had no bacterial growth and pathology was negative for osteomyelitis. She had been doing very well and Monday her dressing was changed and she was doing well. Over the past day or so, she started feeling more swelling and more pain. She denies n/v/f/c. She states that she is nwb but she feels therapy has been really working her hard. Patient states she has not had much pain up until the past 2 days. She states her foot and ankle have both been painful and she has noticed swelling. She is taking oxycodone for pain and she states that helps. She is concerned about her pain and swelling. Objective: Incision site is well coapted with no evidenceof dehiscence. Sutures:intact. There is erythema to left foot. There is mild maceration to left lateral foot. No drainage. No lymphadenopathy. No lymphangitis. Patient has no pain to palpation of left calf. Negative Iverson's test. Assessment: (Z98.890) Post-operative state (primary encounter diagnosis) (L03.032, L02.612) Cellulitis and abscess of toe of left foot Plan: Patient was examined and informed of current findings She is 10 days s/p amputation of left 1st ray. She had been doing well at discharge from hospital. Cultures were negative for ostoemyelitis and pathology was negative. She had dressing change this past Monday and she was doing well. On exam today, she has redness, pain, swelling, no drainage. Discussed appearance of foot. Recommend admission to hospital. Recommend starting antibiotics. Recommend MRI for evaluation of underlying abscess. If infection present, will need incision and drainage and likely wound vac application. If no deep space infection, recommend iv antibiotics for few days and then switch to po. Patient will need mri of left foot. ID consult may be of benefit. Allie Pompa DPM Referring Provider: ALLIE POMPA [[id number]] Allergies As of Date: 12/20/2017 Noted Allergy Reaction LIPITOR (ATORVASTATIN CALCIUM) 02/23/2010 14 - Other: See Comments Comments: fatigue PENICILLINS 01/28/2010 4 - Hives PRAVACHOL (PRAVASTATIN SODIUM) 03/04/2010 5 - Intolerance Comments: Fatigue, loss of appetite. PROZAC (FLUOXETINE HCL) 08/07/2015 1 - Mental Status Change Comments: sleepiness Date Reviewed: 12/20/2017 Reviewed by: Jodie Calderón RN - Fully Assessed Reason for Visit: Surgical Followup [104] Primary Visit Diagnosis:Post-operative state [Z98.890] Other Visit Diagnosis:Cellulitis and abscess of toe of left foot [L03.032, L02.612] Prescriptions as of 12/20/2017 Sig: DICYCLOMINE 20 MG TABLET Take 1 tablet by mouth three * MOMETASONE 0.1 % TOPICAL CREAM Apply 1 application to affect* SERTRALINE 100 MG TABLET Take 1 tablet by mouth once d* INSULIN GLARGINE (U-100) 100 * Inject 14 Units subcutaneousl* INSULIN LISPRO (U-100) 100 UN* Inject 5 Units subcutaneously* PEN NEEDLE, DIABETIC 31 GAUGE* Use one needle with each insu* ALCOHOL SWABS Apply 1 application to affect* BLOOD SUGAR DIAGNOSTIC STRIPS Test blood sugar(s) 4 times d* LANCETS 28 GAUGE Test blood sugar(s) 4 times d* SIMETHICONE 125 MG CHEWABLE T* Take 1 tablet by mouth every * SUMATRIPTAN 50 MG TABLET 50mg by mouth as needed for m* ACETAMINOPHEN ER 650 MG TABLE* Take 2 tablets by mouth twice* NAPROXEN 500 MG TABLET Take 1 tablet by mouth twice * OMEPRAZOLE 20 MG CAPSULE,GRABIEL* Take 1 capsule by mouth daily* DIPHENHYDRAMINE 50 MG CAPSULE Take 1 capsule by mouth every* BUPROPION XL 150 MG TAB Take 1 tablet by mouth once d* LISINOPRIL 10 MG-HYDROCHLOROT* Take 1 tablet by mouth every * AMLODIPINE 10 MG TABLET Take 1 tablet by mouth once d* BUSPIRONE 10 MG TABLET Take 1 tablet by mouth three * Problem List As Of Date 12/20/2017 Noted Resolved Stroke/Cerebrovascular Accident [I63.9] INVALID FOR* Lumbago-Sciatica due to Displacement of Lumbar *INVALID FOR* DDD (Degenerative Disc Disease), Lumbar [M51.36]INVALID FOR* Cannabis Abuse [F12.10] INVALID FOR* Lichen planus [L43.9] INVALID FOR* Lumbar facet arthropathy [M46.96] INVALID FOR* Essential hypertension, benign [I10] INVALID FOR* Nasal obstruction [J34.89] INVALID FOR* Myofascial pain [M79.1] INVALID FOR* Diabetic nephropathy with proteinuria (HCC) [E1*INVALID FOR* Hyperlipidemia with target LDL less than 100 [E*INVALID FOR* History of cerebrovascular accident (CVA) with *INVALID FOR* Urge incontinence of urine [N39.41] INVALID FOR* 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 Gangrene (HCC) [I96] INVALID FOR* More... Encounter Status:Closed by PEÑAALLIE NOA on 12/20/17 CBC-COMPLETE BLOOD CNT Collected: 12/20/2017 Status: F Source: [place] NO DIFF 6:30 AM [facility] REPOSITORY TYPE CODE TESTS RESULT OUT OF RANGE REFERENCE UNITS LAB L100.1000 4.4-11.0 K/mm3 Normal WBC 9.4 LAB L100.1200 4.2-5.4 M/mm3 Low RBC 3.71 LAB L100.1300 12.0-15.0 g/dl Low HGB 10.8 LAB L100.1400 37-47 % Low HCT 33.4 LAB L100.1500 81-99 fL Normal MCV 90.0 LAB L100.1600 27.0-32.0 pg Normal MCH 29.1 LAB L100.1700 32-36 g/gl Normal MCHC 32.3 LAB L100.1810 11.6-14.6 % Normal RDW CV 14.1 LAB L100.1820 35.1-43.9 fl High RDW SD 46.5 LAB L100.1900 150-450 K/mm3 Normal PLT 374 LAB L100.2000 6.2-12.0 fl Normal MPV 9.5 Performed By: #### L100.0500 #### [facility] [address] [place], [address] BASIC METABOLIC Collected: 12/20/2017 Status: F Source: [place] PROFILE (BMP) 6:30 AM [facility] REPOSITORY TYPE CODE TESTS RESULT OUT OF RANGE REFERENCE UNITS LAB L501.0100 74-106 mg/dL High GLU 130 Result Comment: Fasting Glucose result greater than or equal to 126 mg/dL suggests DIABETES MELLITUS per A.D.A. criteria. Please note revised GLUCOSE reference range effective 2017. LAB L501.1000 7-18 mg/dL High BUN 26 LAB L501.1100 0.55-1.02 mg/dL High CREAT,SERUM 1.13 Result Comment: The validity of the calculated GFR AND GFRAA in patients over 70 years has not been determined. Clinical correlation is essential. LAB L501.1110 >60 mL/min Low EST GFR 52 Result Comment: Non- GFR Calc LAB L501.1115 >60 mL/min Normal EST GFR - AA 63 Result Comment: GFR Calc LAB L501.1300 10-20 RATIO High BUN/CRE 23.0 LAB L501.2200 8.5-10.1 mg/dL CA Normal 8.6 LAB L501.5300 136-145 mmol/L NA Normal 141 LAB L501.5600 3.5-5.1 mmol/L K Normal 4.2 LAB L501.5900 98-107 mmol/L CL Normal 106 LAB L501.6100 21.0-32.0 mmol/L Normal CO2 29.0 LAB L501.6200 5-15 Normal GAP 6 Performed By: #### L500.2500 #### [facility] [address] [facility] [place], [address] 12 LEAD ELECTROCARDIOGRAM Observed: 12/19/2017 Status: F Source: [place] 2:06 PM [facility] REPOSITORY [facility] Cardiovascular Services [address] [place] [address] 12 Lead EKG 12/10/17 1332 MR#: [id number] Acct: [id number] Name: DAVINA GREEN Rep #: [id number] : 1955 62 From: Nilson Hill MD Attending Dr: Jacob Byrd MD Status: DIS IN Ordering Dr: Jose Neely DO Date: 12/10/17 [place] [facility] [place] F C Admitted: 12/10/17 Test Reason : PRE-OP Blood Pressure : / mmHG Vent. Rate : 079 BPM Atrial Rate : 079 BPM P-R Int : 128 ms QRS Dur : 080 ms QT Int : 408 ms P-R-T Axes : 064 017 058 degrees QTc Int : 467 ms Poor data quality, interpretation may be adversely affected Normal sinus rhythm Normal ECG Confirmed by NILSON HILL ([id number]), editorial director RAYMUNDO LEIJA ([id number]) on 12/19/2017 2:06:04 PM Referred By: SHERRIE Confirmed By:NILSON HILL 12/19/17 1406 Date Nilson Hill MD CC: Jacob Byrd MD; Jose Neely DO; Ivy Jimenez III, MD Signed PROGRESS Observed: 12/18/2017 Status: COMPLETED Source: [place] 7:57 PM [facility] REPOSITORY HNO ID: [id number] Author: Jarocho Arellano MA Service: (none) Author Type: [employer] Type: Progress Notes Filed: 12/18/2017 7:59 PM Note Text: TRANSITION CARE MANAGEMENT (TCM) INITIAL CONTACT [employer] Outreach Provider Action/FYI: Admitted to [facility] on 12/10 for gangrene, d/c on 12/14 Initial contact with patient post discharge, spoke to patient. Patient identified by name and . SUMMARY: -Pt discharged from [facility] on 12/14/2017. -Admitted for: gangrene Do you have a hospital follow up appointment with your PCP? No, following up with podiatry since gangrene was in her toe MEDICATIONS: Many patients have questions or concerns about their medications once they are home. Were you prescribed any new medications? No Were you told to hold any medications? No Were any of your medications discontinued? No Do you have any questions about getting or taking your medications? No Your discharge instructions/After visit Summary (AVS) are important in guiding you through the recovery process. Is there anything I might help you understand? No Do you have all the necessary equipment and supplies at home? Yes Medical records from recent hospitalization: Placed for provider to review Jarocho Arellano CMA CNPTOUTREACH Observed: 12/18/2017 Status: COMPLETED Source: [place] 12:00 AM [facility] REPOSITORY Patient Outreach (FAMPWS) DAVINA GREEN ([id number]) 1955 F Date Time Provider Department 12/18/17 JAROCHO ARELLANO CMA During your visit today, we recorded the following information about you: Jarocho Arellano CMA, MA 12/18/2017 7:59 PM Signed TRANSITION CARE MANAGEMENT (TCM) INITIAL CONTACT [employer] Outreach Provider Action/FYI: Admitted to [facility] on 12/10 for gangrene, d/c on 12/14 Initial contact with patient post discharge, spoke to patient. Patient identified by name and . SUMMARY: -Pt discharged from [facility] on 12/14/2017. -Admitted for: gangrene Do you have a hospital follow up appointment with your PCP? No, following up with podiatry since gangrene was in her toe MEDICATIONS: Many patients have questions or concerns about their medications once they are home. Were you prescribed any new medications? No Were you told to hold any medications? No Were any of your medications discontinued? No Do you have any questions about getting or taking your medications? No Your discharge instructions/After visit Summary (AVS) are important in guiding you through the recovery process. Is there anything I might help you understand? No Do you have all the necessary equipment and supplies at home? Yes Medical records from recent hospitalization: Placed for provider to review Jarocho Arellano CMA Allergies As of Date: 12/18/2017 Noted Allergy Reaction LIPITOR (ATORVASTATIN CALCIUM) 02/23/2010 14 - Other: See Comments Comments: fatigue PENICILLINS 01/28/2010 4 - Hives PRAVACHOL (PRAVASTATIN SODIUM) 03/04/2010 5 - Intolerance Comments: Fatigue, loss of appetite. PROZAC (FLUOXETINE HCL) 08/07/2015 1 - Mental Status Change Comments: sleepiness Date Reviewed: 12/08/2017 Reviewed by: Lita Valdes LPN - Fully Assessed Reason for Visit: Transition Of Care [8874] Cmt: Admitted to [facility] on 12/10 for gangrene, d/c on 12/14 Prescriptions as of 12/18/2017 Sig: DICYCLOMINE 20 MG TABLET Take 1 tablet by mouth three * MOMETASONE 0.1 % TOPICAL CREAM Apply 1 application to affect* SERTRALINE 100 MG TABLET Take 1 tablet by mouth once d* INSULIN GLARGINE (U-100) 100 * Inject 14 Units subcutaneousl* INSULIN LISPRO (U-100) 100 UN* Inject 5 Units subcutaneously* PEN NEEDLE, DIABETIC 31 GAUGE* Use one needle with each insu* ALCOHOL SWABS Apply 1 application to affect* BLOOD SUGAR DIAGNOSTIC STRIPS Test blood sugar(s) 4 times d* LANCETS 28 GAUGE Test blood sugar(s) 4 times d* SIMETHICONE 125 MG CHEWABLE T* Take 1 tablet by mouth every * SUMATRIPTAN 50 MG TABLET 50mg by mouth as needed for m* ACETAMINOPHEN ER 650 MG TABLE* Take 2 tablets by mouth twice* NAPROXEN 500 MG TABLET Take 1 tablet by mouth twice * OMEPRAZOLE 20 MG CAPSULE,GRABIEL* Take 1 capsule by mouth daily* DIPHENHYDRAMINE 50 MG CAPSULE Take 1 capsule by mouth every* BUPROPION XL 150 MG TAB Take 1 tablet by mouth once d* LISINOPRIL 10 MG-HYDROCHLOROT* Take 1 tablet by mouth every * AMLODIPINE 10 MG TABLET Take 1 tablet by mouth once d* BUSPIRONE 10 MG TABLET Take 1 tablet by mouth three * Problem List As Of Date 12/18/2017 Noted Resolved Stroke/Cerebrovascular Accident [I63.9] INVALID FOR* Lumbago-Sciatica due to Displacement of Lumbar *INVALID FOR* DDD (Degenerative Disc Disease), Lumbar [M51.36]INVALID FOR* Cannabis Abuse [F12.10] INVALID FOR* Lichen planus [L43.9] INVALID FOR* Lumbar facet arthropathy [M46.96] INVALID FOR* Essential hypertension, benign [I10] INVALID FOR* Nasal obstruction [J34.89] INVALID FOR* Myofascial pain [M79.1] INVALID FOR* Diabetic nephropathy with proteinuria (HCC) [E1*INVALID FOR* Hyperlipidemia with target LDL less than 100 [E*INVALID FOR* History of cerebrovascular accident (CVA) with *INVALID FOR* Urge incontinence of urine [N39.41] INVALID FOR* 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 Gangrene (HCC) [I96] INVALID FOR* More... Encounter Status:Closed by JAROCHO ARELLANO CMA on 12/18/17 DISCHARGE SUMMARY Observed: 12/14/2017 Status: F Source: [place] 1:15 PM [facility] REPOSITORY [facility] Medical Records Department [address] [place] [address] Discharge Summary 12/14/17 0908 MR#: [id number] Acct: [id number] Name: DAVINA GREEN Rep #: [id number] : 1955 62 From: Jacob Byrd MD PCP: Ivy Jimenez III, MD Status: DIS IN Y Location: [place] [address] Discharge Date and Diagnosis - Problem List Patient Problems: Active and Suspected Problems (Last Reviewed 12/10/17 @ 11:23 by Jose Neely DO) Gangrene (Acute) Date of Admission: 12/10/17 Date of Discharge: 12/14/17 - Primary Discharge Diagnosis Active and Suspected Problems (Last Reviewed 12/10/17 @ 11:23 by Jose Neely DO) Gangrene (Acute) - Secondary Discharge Diagnosis Chronic Problems (Last Reviewed 12/10/17 @ 11:23 by Jose Neely DO) Tobacco abuse (Chronic) Caries (Chronic) Carotid arterial disease (Chronic) History of CVA (cerebrovascular accident) (Chronic) Hyperlipidemia (Chronic) Hypertension (Chronic) Diabetes mellitus (Chronic) Abscess of buttock (Chronic) Tobacco abuse counseling (Chronic) Chronic ulcer of buttock (Chronic) Hospital Course and Treatment Imaging Results: Clinical Impression(s) from Imaging Studies Foot X-Ray 12/11/17 18:10 IMPRESSION: There are surgical changes laterally after amputation of the fifth toe and distal fifth metatarsal. Electronically Signed: Petty Richards MD at 18:56 EDT Tel Direct: [phone], Service support , Summary of Care Provided: Patient is a 62-year-old lady with past medical history significant for diabetes mellitus type 2 who presented with left fifth toe gangrene. Consult has been placed to podiatry plan is for patient undergo surgical intervention 1. Left fifth toe gangrene patient with underlying peripheral arterial disease as well as diabetes mellitus type 2. Consult was placed to podiatry Dr. Dr. Pompa who did perform partial 5th ray amputation of left foot on 12/11/2017. Cultures were sent following patient amputation and did remain negative 2. Peripheral arterial disease status post right carotid endarterectomy as well as angioplasty involving popliteal as well as superficial femoral artery on 11/14/[address] Jimenez 3. Diabetes mellitus type II: Uncontrolled with hemoglobin A1c of 10. Prescription was written for long-acting insulin Lantus 10 units daily in addition to sliding scale insulin 4. Hypertension-blood pressure controlled, home medications continued with dose adjustment as needed 5. Tobacco dependence counseled on cessation, offered nicotine patch for tobacco cravings Discharge Diet: 1800 Calorie Control Diet Home Medications: Medications to take at Discharge Amlodipine [Norvasc] 10 mg PO QHS 12/18/15 Lisinopril [Zestril] 10 mg PO DAILY 12/18/15 busPIRone [Buspar] 5 mg PO TID 12/18/15 Sertraline HCl [Zoloft] 25 mg PO DINNER 10/11/16 Simethicone 125 mg PO TID PRN PRN 10/11/16 Clopidogrel Bisulfate [Clopidogrel] 75 mg PO DAILY 12/10/17 Mometasone Furoate [Elocon] 50 gm TP DAILY 12/10/17 Acetaminophen [Tylenol Tablet] 650 mg PO Q6H PRN PRN tablet 12/14/17 Glucerna Shake 120 ml PO TIDCM liquid 12/14/17 Insulin Glargine,Hum.rec.anlog [Lantus] 10 unit SQ DAILY #200 ml 12/14/17 Insulin Lispro [Humalog KwikPen] See Protocol SQ ACHS insuln.pen 12/14/17 Magnesium Hydroxide [Milk Of Magnesia] 30 ml PO DAILY PRN PRN udc 12/14/17 Oxycodone [Oxyir] 5 mg PO Q4H PRN PRN 5 Days #16 tab 12/14/17 Triamcinolone 0.5% Cream [Kenalog] 1 applic TOPICAL DAILY tube 12/14/17 Following Prescrptions Were Given to Patient: Insulin Glargine,Hum.rec.anlog [Lantus] 10 unit SQ DAILY #200 ml Oxycodone [Oxyir] 5 mg PO Q4H PRN PRN 5 Days #16 tab PRN Reason: Severe Pain (6-10/10) Primary Care Physician: Ivy Jimenez III, MD [Primary Care Provider] - Please follow up with your Primary Care Physician in: in 1- 2 weeks Please Follow Up With: Allie Pompa DPM When: on 12/18/17 Disposition: Long-Term facility Minutes spent on discharge:: 45 Patient Condition:: Stable Medical Necessity - Tobacco Use Smoking Status: Former smoker Tobacco Use: Cigarettes Meaningful Use Info Meaningful Use Diagnoses (Choose all that apply): None applicable Code Visit Inpatient BILLIE: [id number] Disch Hosp 12/14/17 1315 <Electronically signed by Jacob Byrd MD> Date Jacob Byrd MD Cosigner Signature (if applicable): Date CC: Jacob Byrd MD; Ivy Jimenez III, MD Signed BEDSIDE GLUCOSE Collected: 12/14/2017 Status: F Source: [place] 12:50 PM [facility] REPOSITORY TYPE CODE TESTS RESULT OUT OF REFERENCE UNITS RANGE LAB L501.080 70-110 mg/dL High BEDSIDE GLU 252 Result Comment: MANAGEMENT OF PATIENT CARE PER NURSING PROTOCOL Performed By: #### L501.080 #### [facility] Point of Care [address] [place] [address]. [place] [address] TRANSFER TO [facility] Observed: 12/14/2017 Status: F Source: [facility] 9:03 AM [facility] REPOSITORY [facility] Medical Records Department [address] [place], [place] [address] [address] Transfer to Extended Care MR#: [id number] Acct: [id number] Name: DAVINA GREEN Rep #: [id number] : 1955 62 From: Jacob Byrd MD PCP: Ivy Jimenez III, MD Status: ADM IN [facility]eth (Patient) (Health Ins. Claim No.) (Day of Discharge to Facility) Certification of patient admission REQUIRED AT TIME OF ADMISSION. I CERTIFY THAT POST-HOSPITAL ECF SERVICES ARE REQUIRED TO BE GIVEN ON AN IN-PATIENT BASIS BECAUSE OF THE ABOVE NAMED PATIENT'S NEED FOR [facility] CARE ON A CONTINUING BASIS FOR THE CONDITION(S) FOR WHICH HE/SHE WAS RECEIVING IN-PATIENT HOSPITAL SERVICES PRIOR TO HIS/HER TRANSFER TO [facility]. 12/14/17902 <Electronically signed by Jacob Byrd MD> Date Jacob Byrd MD - Diet 12/11/17 18:50 Diet: Calorie Controlled Is pt able to select menu?: Yes How many daily calories?: 1800 calorie - Wound(s) LT FOOT Wound Type: Surgical Incision Dressing Change: Dry Sterile Dressing BACK Wound Type: LICHEN PLANUS LESIONS ABD Wound Type: LICHEN PLANUS LESION - Therapies Weight Bearing: Partial weight bearing Physical Therapy: Eval and Treat Occupational Therapy: Eval and Treat - Allergies/Procedures Done in Hospital Allergies/Adverse Reactions: Allergies Penicillins Allergy (Verified 09/13/17 18:40) Rash - Type of Care/Length of Stay Estimated LOS: Convalescent Care Less Than 30 days Type of Care Needed: Skilled Rehab Potential: Good Prognosis: Good - Additional Orders/Day of Discharge Day of Discharge: 12/14/17 - Dietary and Speech Recommendations Dietitian Recommendations/Changes: Rec diet change to 1600 Calorie Controlled to better meet nutritional needs. Rec 1 pkt Rene BID for improved wound healing. - Follow Up Care Primary Care Physician: Ivy Jimenez III, MD [Primary Care Provider] - Please follow up with your Primary Care Physician in: in 1- 2 weeks Please Follow Up With: Allie Pompa DPM When: on 12/18/17 12/14/17902 <Electronically signed by Jacob Byrd MD> Date Jacob Byrd MD CC: NOA Pompa; Ivy Jimenez III, MD Signed BEDSIDE GLUCOSE Collected: 12/14/2017 Status: F Source: [place] 6:22 AM [facility] REPOSITORY TYPE CODE TESTS RESULT OUT OF REFERENCE UNITS RANGE LAB L501.080 70-110 mg/dL High BEDSIDE GLU 212 Result Comment: MANAGEMENT OF PATIENT CARE PER NURSING PROTOCOL Performed By: #### L501.080 #### [facility] Point of Care [address] [place], [place] [address] CBC-COMPLETE BLOOD CNT Collected: 12/14/2017 Status: F Source: [place] NO DIFF 6:20 AM [facility] REPOSITORY TYPE CODE TESTS RESULT OUT OF RANGE REFERENCE UNITS LAB L100.1000 4.4-11.0 K/mm3 Normal WBC 8.8 LAB L100.1200 4.2-5.4 M/mm3 Low RBC 4.09 LAB L100.1300 12.0-15.0 g/dl Normal HGB 12.2 LAB L100.1400 37-47 % Low HCT 36.9 LAB L100.1500 81-99 fL Normal MCV 90.2 LAB L100.1600 27.0-32.0 pg Normal MCH 29.8 LAB L100.1700 32-36 g/gl Normal MCHC 33.1 LAB L100.1810 11.6-14.6 % Normal RDW CV 14.2 LAB L100.1820 35.1-43.9 fl High RDW SD 46.5 LAB L100.1900 150-450 K/mm3 Normal PLT 391 LAB L100.2000 6.2-12.0 fl Normal MPV 9.5 Performed By: #### L100.0500 #### [facility] [address] [place], [place], [id number] BASIC METABOLIC Collected: 12/14/2017 Status: F Source: [place] PROFILE (BMP) 6:20 AM [facility] REPOSITORY TYPE CODE TESTS RESULT OUT OF RANGE REFERENCE UNITS LAB L501.0100 74-106 mg/dL High GLU 189 Result Comment: Fasting Glucose result greater than or equal to 126 mg/dL suggests DIABETES MELLITUS per A.D.A. criteria. Please note revised GLUCOSE reference range effective 2017. LAB L501.1000 7-18 mg/dL Normal BUN 16 LAB L501.1100 0.55-1.02 mg/dL High CREAT,SERUM 1.11 Result Comment: The validity of the calculated GFR AND GFRAA in patients over 70 years has not been determined. Clinical correlation is essential. LAB L501.1110 >60 mL/min Low EST GFR 53 Result Comment: Non- GFR Calc LAB L501.1115 >60 mL/min Normal EST GFR - AA 64 Result Comment: GFR Calc LAB L501.1255 ml/min Normal Estimated CRCL 37.75 LAB L501.1300 10-20 RATIO Normal BUN/CRE 14.4 LAB L501.2200 8.5-10 mg/dL Normal .1 CA 8.8 LAB L501.5300 136-14 mmol/L Low 5 NA 135 LAB L501.5600 3.5-5. mmol/L Normal 1 K 4.1 LAB L501.5900 98-107 mmol/L Normal CL 103 LAB L501.6100 21.0-3 mmol/L Normal 2.0 CO2 25.0 LAB L501.6200 5-15 Normal GAP 7 Performed By: #### L500.2500 #### [facility] [address] [facility] [place], [address] BEDSIDE GLUCOSE Collected: 12/13/2017 Status: F Source: [place] 9:45 PM [facility] [facility] TYPE CODE TESTS RESULT OUT OF REFERENCE UNITS RANGE LAB L501.080 70-110 mg/dL High BEDSIDE GLU 186 Result Comment: MANAGEMENT OF PATIENT CARE PER NURSING PROTOCOL Performed By: #### L501.080 #### [facility] Point of Care [address] [facility] [place] [address] BEDSIDE GLUCOSE Collected: 12/13/2017 Status: F Source: [place] 3:40 PM [facility] REPOSITORY TYPE CODE TESTS RESULT OUT OF REFERENCE UNITS RANGE LAB L501.080 70-110 mg/dL High BEDSIDE GLU 194 Result Comment: MANAGEMENT OF PATIENT CARE PER NURSING PROTOCOL Performed By: #### L501.080 #### [facility] Point of Care [address] [place] [address] BEDSIDE GLUCOSE Collected: 12/13/2017 Status: F Source: [place]EE[place] 11:27 AM [facility] REPOSITORY TYPE CODE TESTS RESULT OUT OF REFERENCE UNITS RANGE LAB L501.080 70-110 mg/dL High BEDSIDE GLU 238 Result Comment: MANAGEMENT OF PATIENT CARE PER NURSING PROTOCOL Performed By: #### L501.080 #### [facility] Point of Care [address] [place] [address] CBC-COMPLETE BLOOD CNT Collected: 12/13/2017 Status: F Source: [place] NO DIFF 8:15 AM [facility] REPOSITORY TYPE CODE TESTS RESULT OUT OF RANGE REFERENCE UNITS LAB L100.1000 4.4-11.0 K/mm3 Normal WBC 8.8 LAB L100.1200 4.2-5.4 M/mm3 Low RBC 3.81 LAB L100.1300 12.0-15.0 g/dl Low HGB 11.2 LAB L100.1400 37-47 % Low HCT 34.2 LAB L100.1500 81-99 fL Normal MCV 89.8 LAB L100.1600 27.0-32.0 pg Normal MCH 29.4 LAB L100.1700 32-36 g/gl Normal MCHC 32.7 LAB L100.1810 11.6-14.6 % Normal RDW CV 14.4 LAB L100.1820 35.1-43.9 fl High RDW SD 47.2 LAB L100.1900 150-450 K/mm3 Normal PLT 351 LAB L100.2000 6.2-12.0 fl Normal MPV 9.2 Performed By: #### L100.0500 #### [facility] [address] [place], [place], [address] BASIC METABOLIC Collected: 12/13/2017 Status: F Source: [place] PROFILE (BMP) 8:15 AM [facility] REPOSITORY TYPE CODE TESTS RESULT OUT OF RANGE REFERENCE UNITS LAB L501.0100 74-106 mg/dL High GLU 194 Result Comment: Fasting Glucose result greater than or equal to 126 mg/dL suggests DIABETES MELLITUS per A.D.A. criteria. Please note revised GLUCOSE reference range effective 2017. LAB L501.1000 7-18 mg/dL Normal BUN 17 LAB L501.1100 0.55-1.02 mg/dL High CREAT,SERUM 1.16 Result Comment: The validity of the calculated GFR AND GFRAA in patients over 70 years has not been determined. Clinical correlation is essential. LAB L501.1110 >60 mL/min Low EST GFR 50 Result Comment: Non- GFR Calc LAB L501.1115 >60 mL/min Normal EST GFR - AA 61 Result Comment: GFR Calc LAB L501.1255 ml/min Normal Estimated CRCL 36.12 LAB L501.1300 10-20 RATIO Normal BUN/CRE 14.7 LAB L501.2200 8.5-10 mg/dL Normal .1 CA 8.9 LAB L501.5300 136-14 mmol/L Normal 5 NA 138 LAB L501.5600 3.5-5. mmol/L Normal 1 K 4.1 LAB L501.5900 98-107 mmol/L Normal CL 102 LAB L501.6100 21.0-3 mmol/L Normal 2.0 CO2 31.0 LAB L501.6200 5-15 Normal GAP 5 Performed By: #### L500.2500, L501.5200 #### [facility] [address] [facility] [place], [address] MAGNESIUM Collected: 12/13/2017 Status: F Source: [place]EE[place] 8:15 AM [facility] REPOSITORY TYPE CODE TESTS RESULT OUT OF RANGE REFERENCE UNITS LAB L501.5200 1.6-2.6 mg/dL Normal MG 2.3 Performed By: #### L500.2500, L501.5200 #### [facility] [address] [facility] [address] BEDSIDE GLUCOSE Collected: 12/13/2017 Status: F Source: [place] 6:51 AM [facility] REPOSITORY TYPE CODE TESTS RESULT OUT OF REFERENCE UNITS RANGE LAB L501.080 70-110 mg/dL High BEDSIDE GLU 172 Result Comment: MANAGEMENT OF PATIENT CARE PER NURSING PROTOCOL Performed By: #### L501.080 #### [facility] Point of Care [address] [place] [address] BEDSIDE GLUCOSE Collected: 12/12/2017 Status: F Source: [place]EE[place] 9:32 PM [facility] REPOSITORY TYPE CODE TESTS RESULT OUT OF REFERENCE UNITS RANGE LAB L501.080 70-110 mg/dL High BEDSIDE GLU 216 Result Comment: MANAGEMENT OF PATIENT CARE PER NURSING PROTOCOL Performed By: #### L501.080 #### [facility] Point of Care [address] [place], [place] [id number] BEDSIDE GLUCOSE Collected: 12/12/2017 Status: F Source: [place]EE[place] 4:33 PM [facility] REPOSITORY TYPE CODE TESTS RESULT OUT OF REFERENCE UNITS RANGE LAB L501.080 70-110 mg/dL High BEDSIDE GLU 161 Result Comment: MANAGEMENT OF PATIENT CARE PER NURSING PROTOCOL Performed By: #### L501.080 #### [facility] Point of Care [address] [place] [address] BEDSIDE GLUCOSE Collected: 12/12/2017 Status: F Source: [place] 11:47 AM [facility] REPOSITORY TYPE CODE TESTS RESULT OUT OF REFERENCE UNITS RANGE LAB L501.080 70-110 mg/dL High BEDSIDE GLU 268 Result Comment: MANAGEMENT OF PATIENT CARE PER NURSING PROTOCOL Performed By: #### L501.080 #### [facility] Point of Care [address] [place], [place] [id number] BEDSIDE GLUCOSE Collected: 12/12/2017 Status: F Source: [place] 6:37 AM [facility] REPOSITORY TYPE CODE TESTS RESULT OUT OF REFERENCE UNITS RANGE LAB L501.080 70-110 mg/dL High BEDSIDE GLU 189 Result Comment: Insulin Given MANAGEMENT OF PATIENT CARE PER NURSING PROTOCOL Performed By: #### L501.080 #### [facility] Point of Care [address] [place], [place] [id number] BEDSIDE GLUCOSE Collected: 12/11/2017 Status: F Source: [place]EE[place] 10:40 PM [facility] REPOSITORY TYPE CODE TESTS RESULT OUT OF REFERENCE UNITS RANGE LAB L501.080 70-110 mg/dL High BEDSIDE GLU 169 Result Comment: MANAGEMENT OF PATIENT CARE PER NURSING PROTOCOL Performed By: #### L501.080 #### [facility] Point of Care [address] [place] [address] BEDSIDE GLUCOSE Collected: 12/11/2017 Status: F Source: [place]EE[place] 6:57 PM [facility] REPOSITORY TYPE CODE TESTS RESULT OUT OF REFERENCE UNITS RANGE LAB L501.080 70-110 mg/dL High BEDSIDE GLU 140 Result Comment: MANAGEMENT OF PATIENT CARE PER NURSING PROTOCOL Performed By: #### L501.080 #### [facility] Point of Care [address] [place] [address] OPERATIVE REPORT Observed: 12/11/2017 Status: F Source: [place] 6:13 PM [facility] REPOSITORY [facility] Medical Records Department [address] [place] [address] Operative Report 12/11/17 1804 MR#: [id number] Acct: [id number] Name: DAVINA GREEN Rep #: [id number] : 1955 62 From: Allie Pompa DPM PCP: Ivy Jimenez III, MD Status: ADM IN Y Location: [place] [address] Report of Operation Date of Procedure: 12/11/17 Pre-Operative Diagnosis: gangrene of left 5th toe Post-Operative Diagnosis: gangrene of left 5th toe Surgery/Procedure Performed:: partial 5th ray amputation of left foot Description of Surgical Findings:: Patient is a 62 year old female with history of pad who has gangrene of left 5th toe. She underwent vascular intervention by Dr. Velma Jimenez last month. She was scheduled for amputation in late October but failed to make her appointment with Dr. Ivy Jimenez for surgical clearance. she is admitted to [facility] for amputation. she has dry gangrene of left 5th toe. we have discussed plan of amputation. I have discussed risks of surgery not limited to infection, pain, swelling, bleeding, nonhealing of amputation, need for more proximal amputation not limited to foot or leg. I have examined patient and have found pulses to be palpable and audible. I have discussed repeat pvr but she would like to hold on this and proceed with amputation. I have discussed all risks with patient not limited to the above. she consents to proceed with surgery. I have also spoken with patient regarding plan for snf placement at discharge. she is in agreement. patient was transferred from pre-op holding area to operating room and placed on operating room table in supine position. she was identified by name and procedure. the left foot was prepped and draped in usual aseptic technique. Time out was performed making note of procedure and personal involved. the left foot was injected with 8 cc of 1% lidocaine plain. attention was directed to left foot. a tourniquet had been applied but never used. a lateral incision along 5th ray was performed. the entire black toe at level of mtpj was disarticulated. I dissected down to metatarsal shaft. using a sagittal saw, the distal 5th ray was resected from dorsal distal to plantar proximal and cut slightly oblique from lateral to medial. the foot was then irrigated with pulse lavage, about 3000 cc. clean instruments were then exchanged. a sample was taken from remaining 5th metatarsal and sent for pathology and micro. a wound culture was also taken. the incision was then reapproximated in layers. hemostasis was obtained prior to closure. a post-op dressing was applied consisting of adaptic, 4x4, faviola and alejandra it should be noted that there is a very small abrasion of anterior ankle that was well padded with adaptic, 4x4 guaze and alejandra patient was transferred to pacu in stable condition will plan for admission to rehab in 1-2 days cattery operator: None Type of Anesthesia:: Local MAC Specimen's removed: 5th metatarsal for pathology and micro. pcr Drains: None Estimated Blood Loss (mL): <5 cc - Admit VTE Documentation VTE Present on Admission: No VTE Pharm Prophylaxis ordered?: No 12/11/17 181 <Electronically signed by Allie Pompa DPM> Date Allie Pompa DPM CC: DPRadha Pompa; Ivy Jimenez III, MD Signed FOOT MIN 3 VIEWS Observed: 12/11/2017 Status: F Source: [place] 6:01 PM [facility] REPOSITORY [facility] Imaging Services [address] [place] [address] Foot min 3 Views MR#: [id number] Acct: [id number] Name: DAVINA GREEN Rep #: [id number] : 1955 F 62 From: Petty Richards MD PCP: Ivy Jimenez III, MD Status: ADM IN Study: Foot min 3 Views Date of Exam: 12/11/17 Exam# [id number] Ordering Dr: Allie Pompa DPM STUDY: X-RAY - LEFT FOOT CLINICAL: Female, 62 years old. Post operative assessment TECHNIQUE: Three view(s) of the foot were obtained. COMPARISON: None. FINDINGS: Bones: There is surgical resection of the distal fifth metatarsal and fifth toe. There is a moderate spur off the inferior calcaneus. Joints: The visualized joints are unremarkable. Soft tissues: There is soft tissue swelling and air laterally after surgery. Foreign body: None RAD/Foot min 3 Views IMPRESSION: There are surgical changes laterally after amputation of the fifth toe and distal fifth metatarsal. Electronically Signed: Petty Richards MD at 18:56 EDT Tel Direct: [phone], Service support , CC: NOA Pompa; Ivy Jimenez III, MD Renewable Energy Technician: Signed MRSA WOUND DNA BY Collected: 12/11/2017 Status: F Source: [place] PCR 5:00 PM [facility] REPOSITORY Order Comment: Comments: 5th METATARSAL, LEFT TYPE CODE TESTS RESULT OUT OF RANGE REFERENCE UNITS LAB L8200.1100 Negative Normal MRSA Negative RESULT LAB L8200.1150 Negative Normal SA RESULT NEGATIVE Performed By: #### L8200.1075 #### [facility] [address] [facility] [place], [address] Observed: 12/11/2017 Status: F Source: [place] CULTURE, DEEP WOUND 5:00 PM [facility] REPOSITORY Order Date: 12/28/16 Comments: 5th METATARSAL, LEFT Gram Stain Gram Stain No organisms seen Wound Culture No growth aerobically. Cult, Anaerobic No anaerobic bacteria isolated. Performed By: #### M100.1500 #### [facility] [address] [facility] [place], [address] BEDSIDE GLUCOSE Collected: 12/11/2017 Status: F Source: [place] 2:28 PM [facility] REPOSITORY TYPE CODE TESTS RESULT OUT OF REFERENCE UNITS RANGE LAB L501.080 70-110 mg/dL High BEDSIDE GLU 148 Result Comment: MANAGEMENT OF PATIENT CARE PER NURSING PROTOCOL Performed By: #### L501.080 #### [facility] Point of Care [address] [place] [address] FOOT MIN 3 VIEWS Observed: 12/11/2017 Status: F Source: [place] 11:43 AM [facility] REPOSITORY [facility] Imaging Services [address] [place] [address] Foot min 3 Views MR#: [id number] Acct: [id number] Name: DAVINA GREEN Rep #: [id number] : 1955 F 62 From: Petty Richards MD PCP: Ivy Jimenez III, MD Status: PRE SDC Study: Foot min 3 Views Date of Exam: 12/11/17 Exam# [id number] Ordering Dr: Allie Pompa DPM STUDY: X-RAY - LEFT FOOT CLINICAL: Female, 62 years old. Intraoperative assessment TECHNIQUE: Five view(s) of the foot were obtained. COMPARISON: None. FINDINGS: There is surgical resection of the fifth toe and distal fifth metatarsal. A soft tissue defect is present in this location. Fluoroscopy time 26 seconds. Dose 2.67 cGy. RAD/Foot min 3 Views IMPRESSION: Limited views of the left foot were obtained intraoperatively. Electronically Signed: Petty Richards MD at 18:27 EDT Tel Direct: [phone], Service support , CC: NOA Pompa; Ivy Jimenez III, MD Renewable Energy Technician: Signed BEDSIDE GLUCOSE Collected: 12/11/2017 Status: F Source: [place] 11:38 AM [facility] REPOSITORY TYPE CODE TESTS RESULT OUT OF REFERENCE UNITS RANGE LAB L501.080 70-110 mg/dL High BEDSIDE GLU 214 Result Comment: MANAGEMENT OF PATIENT CARE PER NURSING PROTOCOL Performed By: #### L501.080 #### [facility] Point of Care [address] [place] [address] CONSULTATION Observed: 12/11/2017 Status: F Source: [place] 8:39 AM [facility] REPOSITORY [facility] Medical Records Department [address] [place] [address] Consultation 12/11/17 0833 MR#: [id number] Acct: [id number] Name: DAVINA GREEN Rep #: [id number] : 1955 62 From: Allie Pompa DPM PCP: Ivy Jimenez III, MD Status: ADM IN Y [place] [id number] Reason for Consult Date of Consultation: 12/11/17 Reason for Consultation: gangrene of left 5th toe History of Present Illness: The patient is a 62 year old F with gangrene of left 5th toe. underwent vascular procedure last month with Dr. velma Jimenez. Was scheduled for amputation but did not get surgically cleared. I had arranged for a follow-up appointment with Dr. Ivy Jimenez on November 28 but patient did not show up. COntinues to have dry gangrene with worsening pain to left 5th toe. she presented to my clinic on Monday last week and we decided to arrange admission to hospital for clearance and for amputation. she denies sob or chest pain. Past Medical History Past Medical History (Chronic Problems): Chronic Problems (Last Reviewed 12/10/17 @ 11:23 by Jose Neely DO) Tobacco abuse (Chronic) Caries (Chronic) Carotid arterial disease (Chronic) History of CVA (cerebrovascular accident) (Chronic) Hyperlipidemia (Chronic) Hypertension (Chronic) Diabetes mellitus (Chronic) Abscess of buttock (Chronic) Tobacco abuse counseling (Chronic) Chronic ulcer of buttock (Chronic) Medical History: Medical History (Last Reviewed 12/10/17 @ 11:23 by Jose Neely DO) PVD (peripheral vascular disease) (Acute) I73.9 Carotid arterial disease (Chronic) I77.9 Hyperlipidemia (Chronic) E78.5 Nicotine dependence (Acute) F17.200 Cellulitis and abscess of buttock (Acute) 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 Asthma J45.909 CVA (cerebral vascular accident) I63.9 Chronic back pain M54.9, G89.29 Depression F32.9 Diabetes E11.9 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 Velma Jimenez approximately 7 years ago. She is a Ab0. Lives: Spouse/ Significant Other Smoking Status: Former smoker Tobacco Use: Cigarettes Alcohol: None Drugs: None - *Family History Maternal Family History: Family History (Last Updated 11/08/17 @ 13:38 by Melva Ashby) Mother No problems noted. History Items: - - Patient's father in his 40s from myocardial infarction. Patient's mother in her 40s from a cerebrovascular accident. Patient Problems: Active and Suspected Problems (Last Reviewed 12/10/17 @ 11:23 by Jose Neely DO) Gangrene (Acute) Objective: patient is alert and orientated x 3. she does not appear in any distress vascular: DP and PT pulses are faint but are biphasic to doppler. skin is warm. no redness present. there is dry gangrene of left 5th toe. derm: dry gangrene present to left 5th toe. 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 I suspect she will require partial 5th ray amputation due to extent of gangrene involving toe. I did discuss risks of procedure not limited to infection, pain, swelling, bleeding, hematoma, nonhealing of surgical amptuation requiring more proximal amputation. I did inform patient that smoking does delay healing and places her at risk of nonhealing. we did discuss repeat vascular studies today. I did use doppler and she has biphasic flow to level of toes. she does not wish to delay this procedure any longer. she wants to proceed with surgery today. all questions answered. patient consents to proceed. 12/11/17 0839 <Electronically signed by Allie Pompa DPM> Date Allie Pompa DPM Cosigner Signature (if applicable): Date CC: NOA Pompa; Ivy Jimenez III, MD Signed BONE (FX/NONFRACTURE) Observed: 12/11/2017 Status: F Source: [place] 7:30 AM [facility] REPOSITORY Patient: DAVINA GREEN : 1955 (62/F) Acct Num: [id number] Phys: Jacob Byrd MD Unit Num: [id number] Loc: MS3 OC051-0 Specimen: [id number] Received: 12/12/17 - 105 Spec Type: Bone TISSUES TISSUES: Toe, NOS GROSS DESCRIPTION Received in fixative is one container labeled with the patient's name and designated left fifth metatarsal. The specimen consists of an irregular fragment of eng bone measuring 1.5 x 0.8 x 0.3 cm. The specimen is submitted in its entirety in one cassette after decalcification. / AM:de 12/12/17 TC:5 CPT: 29489, 67991 HEADER OPERATION: Amputation of fifth left toe, partial left fifth ray amputation PRE-OP DIAGNOSIS: Left fifth toe gangrene TISSUE SUBMITTED: Left fifth metatarsal bone MICROSCOPIC DESCRIPTION Slides are reviewed. MICROSCOPIC DIAGNOSIS Left fifth metatarsal bone: A piece of bone, negative for acute osteomyelitis and adherent fragment of fibroconnective and skeletal muscle tissue. SJ:de 12/15/17 Signed Alec Tan 12/15/17 <signature on file> Performed By: #### PBON #### [facility] [address] [place], [address] BEDSIDE GLUCOSE Collected: 12/11/2017 Status: F Source: [place] 6:33 AM [facility] REPOSITORY TYPE CODE TESTS RESULT OUT OF REFERENCE UNITS RANGE LAB L501.080 70-110 mg/dL High BEDSIDE GLU 199 Result Comment: MANAGEMENT OF PATIENT CARE PER NURSING PROTOCOL Performed By: #### L501.080 #### [facility] Point of Care [address] [facility] [place] [address] CBC W/DIFF, AUTOMATED Collected: 12/11/2017 Status: F Source: [place] 5:24 AM [facility] REPOSITORY TYPE CODE TESTS RESULT OUT OF RANGE REFERENCE UNITS LAB L100.1000 4.4-11.0 K/mm3 Normal WBC 8.3 LAB L100.1200 4.2-5.4 M/mm3 Low RBC 3.90 LAB L100.1300 12.0-15.0 g/dl Low HGB 11.6 LAB L100.1400 37-47 % Low HCT 34.6 LAB L100.1500 81-99 fL Normal MCV 88.7 LAB L100.1600 27.0-32.0 pg Normal MCH 29.7 LAB L100.1700 32-36 g/gl Normal MCHC 33.5 LAB L100.1810 11.6-14.6 % Normal RDW CV 14.1 LAB L100.1820 35.1-43.9 fl High RDW SD 45.3 LAB L100.1900 150-450 K/mm3 Normal PLT 398 LAB L100.2000 6.2-12.0 fl Normal MPV 8.9 LAB L100.2100 47-70 % Normal NEUT% 51.7 LAB L100.2200 19-41 % Normal LY% 29.7 LAB L100.2300 0-10 % Normal MONO% 8.0 LAB L100.2400 0-5 % High EO% 10.0 LAB L100.2500 0-1 % Normal BASO% 0.5 LAB L100.2550 0.0-0.9 % Normal IM GRAN % 0.100 Result Comment: IG% - Immature Granulocytes (promyelocytes, myelocytes and metamyelocytes) > 1% indicates that a LEFT SHIFT is Present. LAB L100.2620 2.0-7.7 X10 3/uL Normal Absolute Neut 4.3 LAB L100.2720 0.83-4.51 X10 3/ul Normal Absolute Lymph 2.46 Performed By: #### L100.0100 #### [facility] [address] [place] [address], [id number] PROTHROMBIN TIME W/INR Collected: 12/11/2017 Status: F Source: [place] 5:24 AM [facility] REPOSITORY TYPE CODE TESTS RESULT OUT OF RANGE REFERENCE UNITS LAB L300.4150 11.7-14.9 SECONDS Normal PROTIME 13.0 LAB L300.4200 Normal INR 1.0 Performed By: #### L300.3900, L300.4310 #### [facility] [address] [place], [place], [address] PARTIAL THROMBOPLAST Collected: 12/11/2017 Status: F Source: [place] TIME 5:24 AM [facility] REPOSITORY TYPE CODE TESTS RESULT OUT OF RANGE REFERENCE UNITS LAB L300.4310 24.1-36.2 Seconds Normal PTT 33.1 Performed By: #### L300.3900, L300.4310 #### [facility] [address] [place], [place], [id number] BASIC METABOLIC Collected: 12/11/2017 Status: F Source: [place] PROFILE (BMP) 5:24 AM [facility] REPOSITORY TYPE CODE TESTS RESULT OUT OF RANGE REFERENCE UNITS LAB L501.0100 74-106 mg/dL High GLU 171 Result Comment: Fasting Glucose result greater than or equal to 126 mg/dL suggests DIABETES MELLITUS per A.D.A. criteria. Please note revised GLUCOSE reference range effective 2017. LAB L501.1000 7-18 mg/dL Normal BUN 17 LAB L501.1100 0.55-1.02 mg/dL High CREAT,SERUM 1.06 Result Comment: The validity of the calculated GFR AND GFRAA in patients over 70 years has not been determined. Clinical correlation is essential. LAB L501.1110 >60 mL/min Low EST GFR 56 Result Comment: Non- GFR Calc LAB L501.1115 >60 mL/min Normal EST GFR - AA 68 Result Comment: GFR Calc LAB L501.1255 ml/min Normal Estimated CRCL 39.53 LAB L501.1300 10-20 RATIO Normal BUN/CRE 16.0 LAB L501.2200 8.5-10 mg/dL Low .1 CA 8.2 LAB L501.5300 136-14 mmol/L Normal 5 NA 137 LAB L501.5600 3.5-5. mmol/L Normal 1 K 3.5 LAB L501.5900 98-107 mmol/L Normal CL 101 LAB L501.6100 21.0-3 mmol/L Normal 2.0 CO2 29.0 LAB L501.6200 5-15 Normal GAP 7 Performed By: #### L500.2500, L500.3400 #### [facility] [address] [place], [place], [id number] LIVER PROFILE Collected: 12/11/2017 Status: F Source: [place] 5:24 AM [facility] REPOSITORY TYPE CODE TESTS RESULT OUT OF RANGE REFERENCE UNITS LAB L501.1500 6.4-8.2 g/dL Normal T PROT 6.9 LAB L501.1800 3.2-5.0 g/dL Low ALB 2.7 LAB L501.1950 2.2-4.2 g/dL Normal GLOB 4.2 LAB L501.4100 15-37 U/L Normal AST 16 LAB L501.4305 45-117 U/L Normal ALK P 116 LAB L501.4405 13-56 U/L Normal ALT 15 LAB L501.4600 0.20-1.00 mg/dL Low T BILI 0.10 LAB L501.4700 0.00-0.30 mg/dL Normal D BILI < 0.05 Performed By: #### L500.2500, L500.3400 #### [facility] [address] [place], [address] BEDSIDE GLUCOSE Collected: 12/10/2017 Status: F Source: [place] 8:58 PM [facility] REPOSITORY TYPE CODE TESTS RESULT OUT OF REFERENCE UNITS RANGE LAB L501.080 70-110 mg/dL High BEDSIDE GLU 224 Result Comment: MANAGEMENT OF PATIENT CARE PER NURSING PROTOCOL Performed By: #### L501.080 #### [facility] Point of Care [address] [place] [address] BEDSIDE GLUCOSE Collected: 12/10/2017 Status: F Source: [place] 5:08 PM [facility] REPOSITORY TYPE CODE TESTS RESULT OUT OF REFERENCE UNITS RANGE LAB L501.080 70-110 mg/dL High BEDSIDE GLU 183 Result Comment: MANAGEMENT OF PATIENT CARE PER NURSING PROTOCOL Performed By: #### L501.080 #### [facility] Point of Care [address] [place] [address] BEDSIDE GLUCOSE Collected: 12/10/2017 Status: F Source: [place] 11:56 AM [facility] REPOSITORY TYPE CODE TESTS RESULT OUT OF REFERENCE UNITS RANGE LAB L501.080 70-110 mg/dL High BEDSIDE GLU 201 Result Comment: MANAGEMENT OF PATIENT CARE PER NURSING PROTOCOL Performed By: #### L501.080 #### [facility] Point of Care [address] [place] [address] CBC W/DIFF, AUTOMATED Collected: 12/10/2017 Status: F Source: [place] 11:40 AM [facility] REPOSITORY TYPE CODE TESTS RESULT OUT OF RANGE REFERENCE UNITS LAB L100.1000 4.4-11.0 K/mm3 Normal WBC 8.8 LAB L100.1200 4.2-5.4 M/mm3 Low RBC 4.08 LAB L100.1300 12.0-15.0 g/dl Low HGB 11.9 LAB L100.1400 37-47 % Low HCT 36.0 LAB L100.1500 81-99 fL Normal MCV 88.2 LAB L100.1600 27.0-32.0 pg Normal MCH 29.2 LAB L100.1700 32-36 g/gl Normal MCHC 33.1 LAB L100.1810 11.6-14.6 % Normal RDW CV 14.3 LAB L100.1820 35.1-43.9 fl High RDW SD 46.2 LAB L100.1900 150-450 K/mm3 Normal PLT 387 LAB L100.2000 6.2-12.0 fl Normal MPV 8.8 LAB L100.2100 47-70 % Normal NEUT% 69.0 LAB L100.2200 19-41 % Normal LY% 20.0 LAB L100.2300 0-10 % Normal MONO% 4.1 LAB L100.2400 0-5 % High EO% 6.6 LAB L100.2500 0-1 % Normal BASO% 0.3 LAB L100.2550 0.0-0.9 % Normal IM GRAN % 0.000 Result Comment: IG% - Immature Granulocytes (promyelocytes, myelocytes and metamyelocytes) > 1% indicates that a LEFT SHIFT is Present. LAB L100.2620 2.0-7.7 X10 3/uL Normal Absolute Neut 6.0 LAB L100.2720 0.83-4.51 X10 3/ul Normal Absolute Lymph 1.75 Performed By: #### L100.0100 #### [facility] [address] [place], [place], [id number] COMPREHENSIVE METABOLIC Collected: 12/10/2017 Status: F Source: [place] [facility] 11:40 AM [facility] REPOSITORY TYPE CODE TESTS RESULT OUT OF RANGE REFERENCE UNITS LAB L501.0100 74-106 mg/dL High GLU 183 Result Comment: Fasting Glucose result greater than or equal to 126 mg/dL suggests DIABETES MELLITUS per A.D.A. criteria. Please note revised GLUCOSE reference range effective 2017. LAB L501.1000 7-18 mg/dL High BUN 19 LAB L501.1100 0.55-1.02 mg/dL High CREAT,SERUM 1.24 Result Comment: The validity of the calculated GFR AND GFRAA in patients over 70 years has not been determined. Clinical correlation is essential. LAB L501.1110 >60 mL/min Low EST GFR 47 Result Comment: Non- GFR Calc LAB L501.1115 >60 mL/min Low EST GFR - AA 56 Result Comment: GFR Calc LAB L501.1255 ml/min Normal Estimated CRCL 33.79 LAB L501.1300 10-20 RATIO Normal BUN/CRE 15.3 LAB L501.1500 6.4-8. g/dL Normal 2 T PROT 7.3 LAB L501.1800 3.2-5. g/dL Low 0 ALB 3.1 LAB L501.1950 2.2-4. g/dL Normal 2 GLOB 4.2 LAB L501.2000 0.9-2. RATIO Low 4 A/G 0.7 LAB L501.2200 8.5-10 mg/dL Normal .1 CA 8.9 LAB L501.4100 15-37 U/L Low AST 13 LAB L501.4305 45-117 U/L Normal ALK P 116 LAB L501.4405 13-56 U/L Normal ALT 16 LAB L501.4600 0.20-1 mg/dL Normal .00 T BILI 0.20 LAB L501.5300 136-14 mmol/L Normal 5 NA 136 LAB L501.5600 3.5-5. mmol/L Normal 1 K 4.1 LAB L501.5900 98-107 mmol/L Normal CL 98 LAB L501.6100 21.0-3 mmol/L Normal 2.0 CO2 29.0 LAB L501.6200 5-15 Normal GAP 9 Performed By: #### L500.4050 #### [facility] [address] [place], [address] HEMOGLOBIN A1C Collected: 12/10/2017 Status: F Source: [place] 11:40 AM [facility] REPOSITORY TYPE CODE TESTS RESULT OUT OF RANGE REFERENCE UNITS LAB L501.9985 4.2-6.3 % High HGB A1C 10.2 Performed By: #### L501.9985 #### [facility] [address] [place], [address] HISTORY AND PHYSICAL Observed: 12/10/2017 Status: F Source: [place] EXAM 11:30 AM [facility] REPOSITORY [facility] Medical Records Department [address] [place] [address] History and Physical 12/10/17 1120 MR#: [id number] Acct: [id number] Name: DAVINA GREEN Rep #: [id number] : 1955 62 From: Jose Neely DO PCP: Ivy Jimenez III, MD Status: ADM JAYLIN Y Location: [place] [address] Problem List (1) Gangrene Status: Acute History of Present Illness Date of Admission: 12/10/17 Chief Complaint: Gangrene left 5th toe. The patient is a 62 year old F who has developed gangrene of the left fifth toe. Began several months ago. No antecedent trauma. Patient saw Dr. Pompa and patient was referred to vascular surgery with Dr. Jimenez. Patient underwent an angioplasty on November 14 where she had an angiogram and angioplasty of the popliteal superior facial femoral artery. Patient was to follow-up with her primary care doctors but due to transportation issues unable to do so for further medical clearance. Dr. Pompa requested admission today with anticipation of surgery on the for further medical clearance as patient was unable to do so on an outpatient basis. Early, the patient feels well other than pain and discomfort in her left fifth toe. Patient states that she resides in an apartment and has to take stairs to get upstairs. Patient stated that she has limited due to pain in her foot but does not get chest pain or shortness of breath. Prior to the gangrene, patient was active at her house and team cleaning without any difficulty. [] Past Medical History Past Medical History (Chronic Problems): Chronic Problems (Last Updated 11/08/17 @ 13:34 by Melva Ashby) Tobacco abuse (Chronic) Caries (Chronic) Carotid arterial disease (Chronic) History of CVA (cerebrovascular accident) (Chronic) Hyperlipidemia (Chronic) Hypertension (Chronic) Diabetes mellitus (Chronic) Abscess of buttock (Chronic) Tobacco abuse counseling (Chronic) Chronic ulcer of buttock (Chronic) Medical History: Medical History (Last Reviewed 12/10/17 @ 11:23 by Jose Neely DO) PVD (peripheral vascular disease) (Acute) I73.9 Carotid arterial disease (Chronic) I77.9 Hyperlipidemia (Chronic) E78.5 Nicotine dependence (Acute) F17.200 Cellulitis and abscess of buttock (Acute) 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 Asthma J45.909 CVA (cerebral vascular accident) I63.9 Chronic back pain M54.9, G89.29 Depression F32.9 Diabetes E11.9 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 Velma Jimenez approximately 7 years ago. She is a Ab0. Lives: Spouse/ Significant Other Smoking Status: Heavy Smoker (>10/day) Tobacco Use: Cigarettes Alcohol: None Drugs: None - *Family History Maternal Family History: Family History (Last Updated 11/08/17 @ 13:38 by Melva Ashby) Mother No problems noted. History Items: - - Patient's father in his 40s from myocardial infarction. Patient's mother in her 40s from a cerebrovascular accident. Review of Systems Constitutional: Denies: Chills, Fever, Weight Change Eyes: Reports: Blurred vision - When she does not get enough water. Denies: Double vision HEENT: Denies: Head Aches, Sinus Congestion, Sinus Drainage Cardiovascular: Denies: Chest Pain, Palpitations Respiratory: Denies: Cough, Shortness of breath at rest, Sputum production Gastrointestinal: Denies: Abdominal Pain, Nausea, Vomiting Genitourinary: Denies: Dysuria Musculoskeletal: Denies: Joint Pain, Joint Tenderness Skin: Reports: - - Gangrene left fifth toe. Denies: Dryness, Jaundice Neurological: Denies: Numbness, Tingling, Focal weakness Psychiatric: Denies: Anxiety, Depression Endocrine: Denies: Change in Body Habitus Hematologic/ Lymphatic: Denies: Easy Bruising, Easy Bleeding, Hx of blood clot Comment: All review of systems are negative except as mentioned in the history of present illness and the other review of systems. VTE Information - Inpt Only VTE Present on Admission: No VTE Mechan Device Prophylaxis: SCD's Patient Problems: Active and Suspected Problems (Last Updated 11/08/17 @ 13:34 by Melva Ashby) Gangrene (Acute) - Physical Exam General: Alert, Cooperative, No apparent distress HEENT: Atraumatic, Normocephalic Oral: Moist Mucosa, - - Poor dentition Neck: No Nodes, Thyroid Normal Size and Texture Lungs: Clear to auscultation, Normal air movement, No rhonchi, No wheeze Cardiovascular: Regular rate, Regular Rhythm, Normal S1, Normal S2, No murmurs Abdomen: Bowel Sounds Present, Soft, Non Tender, Non-Distended, No Hepato-splenomegaly Extremities: No edema, No Calf Tenderness Skin: No rashes, - - Well demarcated gangrene involving as the entirety of her left fifth toe. Musculoskeletal: No Tenderness to Palpation of Joints or Extremities, No Muscle Wasting Neurological: Sensory exam intact to light touch and pain, Coordination normal Psych/Mental Status: Normal Affect, Appropriate Vital Signs Temp Pulse Resp BP Pulse Ox 37.1 C 89 16 125/82 H 97 12/10/17 10:29 12/10/17 10:29 12/10/17 10:29 12/10/17 10:29 12/10/17 10:29 Oxygen Delivery Method Room Air Weight: 58.2 kg Body Mass Index (BMI) 25.0 Assessment/Plan All Active Problems (Last Updated 11/08/17 @ 13:34 by Melva Ashby) 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 (Acute) Gangrene (Acute) PVD (peripheral vascular disease) (Acute) Nicotine dependence (Acute) Cellulitis and abscess of buttock (Acute) Abscess of right buttock (Acute) 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 Left fifth toe gangrene * Appears to be dry * Patient was assessed for medical clearance. Patient has a good performance status prior to the gangrene setting in. Performance is only limited due to pain. Barring any issues regards to labs and EKG I feel that the patient should be medically cleared to proceed with amputation on the . If any lab work or EKG findings come up that may prevent that from occurring right away an addendum will be performed to this history and physical. * Consult to podiatry for surgery * I do not see any indication for antibiotics at this time * Discussed with patient about the importance of stopping smoking. Patient tells me that she stopped smoking but technically it has only been 1 day so the patient previously has a [id number] of smoking. I explained the risks of further atherosclerosis and poor wound healing associated with continued smoking 2. Peripheral arterial disease * Patient is already status post right carotid endarterectomy and had angioplasty of her popliteal and superficial femoral arteries on November [address] Jimenez * Patient is on Plavix for that and that will continue. Dr. Pompa is aware. 3. Diabetes mellitus type 2 * Patient is on no medications for her diabetes. * This is certainly complicating the gangrene and her peripheral arterial disease * Will check a hemoglobin A1c * Put her on sliding scale 4. Tobacco abuse * Discussed benefits of quitting smoking. Please see above for further details 5. DVT prophylaxis: Patient will be put on SCDs for now. I am not going to order chemical prophylaxis at this point time as patient is going to be requiring surgery on the . That could be considered after surgery. Code Visit Inpatient E AND M: [id number] Init Hosp L3 12/10/17 1130 <Electronically signed by Jose Neely DO> Date Jose Neely DO Cosigner Signature: Date (if applicable) CC: NOA Pompa; Jose Neely DO; Ivy Jimenez III, MD Signed CBC AND DIFFERENTIAL Collected: 12/08/2017 Status: F Source: [place] 2:57 PM [facility] REPOSITORY TYPE CODE TESTS RESULT OUT OF REFERENCE UNITS RANGE LAB WBC 3.70-11.00 k/uL WBC 8.52 LAB RBC 3.90-5.20 m/uL RBC 4.22 LAB HGB 11.5-15.5 g/dL Hemoglobin 12.6 LAB HCT 36.0-46.0 % Hematocrit 37.4 LAB MCV 80.0-100.0 fL MCV 88.6 LAB MCH 26.0-34.0 pG MCH 29.9 LAB MCHC 30.5-36.0 g/dL MCHC 33.7 LAB RDWCV 11.5-15.0 % RDW-CV 14.1 LAB PLTCT 150-400 k/uL Platelet High Count 464 LAB MPV 9.0-12.7 fL MPV 9.4 LAB ANEUT % Neut% 65.9 LAB AANEUT 1.45-7.50 k/uL Abs Neut 5.61 LAB ALYMP % Lymph% 21.7 LAB AALYMP 1.00-4.00 k/uL Abs Lymph 1.85 LAB AMONO % [place]% 6.1 LAB AAMONO <0.87 k/uL Abs [place] 0.52 LAB AEOS % Eosin% 5.4 LAB AAEOS <0.46 k/uL Abs High Eosin 0.46 LAB ABASO % Baso% 0.9 LAB AABASO <0.11 k/uL Abs Baso 0.08 LAB AUNRBC 0 /100 WBC NRBCs 0.0 LAB ABNRBC <0.01 k/uL Absolute nRBC <0.01 LAB DTYP DTYPE Auto Diff Performed By: #### CBCDIF, WSR, CRP #### [facility] [address] [place], [place] [address] SED RATE WESTERGREN Collected: 12/08/2017 Status: F Source: [place] 2:57 PM [facility] REPOSITORY TYPE CODE TESTS RESULT OUT OF REFERENCE UNITS RANGE LAB WSR 0-20 mm/hr Sed Rate High [place] 73 Performed By: #### CBCDIF, WSR, CRP #### [facility] [address], [place] [address] C-REACTIVE PROTEIN Collected: 12/08/2017 Status: F Source: [place] 2:57 PM [facility] REPOSITORY TYPE CODE TESTS RESULT OUT OF REFERENCE UNITS RANGE LAB CRP <0.9 mg/dL High C-Reactive 1.8 Protein Performed By: #### CBCDIF, WSR, CRP #### [facility] [place] [address] [place], [place] [address] XR FOOT 3V AP/LAT/OBL Observed: 12/08/2017 Status: F Source: [facility] 2:46 PM [facility] REPOSITORY * * *Final Report* * * DATE OF EXAM: Dec 08 2017 2:46PM WRX [id number] - XR FOOT 3V AP/LAT/OBL LT / PROCEDURE REASON: multiple diagnoses * * * * Physician Interpretation * * * * Left foot HISTORY: 62 years old Clinical information: Gangrene, not elsewhere classified Peripheral vascular disease, unspecified pt states has gang green in left 5th toe for 2 months, toe is black TECHNIQUE: Images: XR FOOT 3V AP/LAT/OBL LT Comparison: 11/01/2017. RESULT: Findings: No acute bony destruction or fracture. Attenuation density along fifth toe soft tissues could represent soft tissue calcification or the densities on the skin. No subluxation. There is a calcaneal enthesophyte at the origin of the plantar fascia. IMPRESSION: No acute bony finding Possible soft tissue calcification little toe versus density on the skin. Plantar spur Renewable Energy Technician: [facility] Transcribe Date/Time: Dec 08 2017 4:38P Dictated by : ROLAND HASSAN MD This examination was interpreted and the report reviewed and electronically signed by: ROLAND HASSAN MD on Dec 08 2017 4:40PM EST [id number] Observed: 12/08/2017 Status: COMPLETED Source: [place] 2:36 PM [facility] REPOSITORY HNO ID: [id number] Author: Juarez Vargas (Rt) Emily Yusuf Service: (none) Author Type: Knockdown Man Type: Progress Notes Filed: 12/08/2017 2:46 PM Note Text: Radiology Service Progress Note PATIENT NAME: Davina Green DATE OF SERVICE: December 08, 2017 TIME: 2:36 PM PATIENT IDENTITY VERIFICATION COMPLETED USING TWO (2) METHODS: Patient confirmed name verbally and Date of . PATIENT GENDER DATA: Female. status: : No status: NO. PATIENT RELEVANT IMPLANT DATA REVIEWED: Not Applicable RADIOLOGY DEPARTMENT: General X-ray: Exam(s) Completed: Lower Extremity X-Ray(s): Foot, Left: PERIPHERAL IV DATA: Not applicable SIGNED BY: RT Manuel December 08, 2017 2:36 PM PROGRESS Observed: 12/08/2017 Status: COMPLETED Source: [place] 2:[address] [facility] REPOSITORY O ID: [id number] Author: Allie Pompa Service: (none) Author Type: Physician Type: Progress Notes Filed: 12/08/2017 10:03 PM Note Text: Follow up podiatric office visit for: Chief Complaint: This 62 year old who presents for follow up:gangrene of left 5th toe. Patient has been doing the following since last visit: patient continues with betadine. She was originally scheduled for amputation last month but she was not cleared. She was scheduled with Dr. Jimenez on November 28 for surgical clearance but patient did not make her appointment. She continues to complain of painful gangrene of left 5th toe. She denies any drainage. She denies any n/v/f/c. She continues to smoke 1/4-1/2 pack per day. She has no other complaints at this time. PAIN EVALUATION 12/08/2017 Pain Score: 8 Pain Location: Foot-Left Description: Burning;Sharp Duration Amount of Time: - ongoing Duration Units: Months Frequency: Continuous Hemoglobin A1C Date Value Ref Range Status 11/04/2016 12.3 (H) 4.3 - 5.6 % Final Comment: [place] [employer] guidelines indicate that patients with HgbA1c in the range 5.7-6.4% are at increased risk for development of diabetes, and intervention by lifestyle modification may be beneficial. HgbA1c greater or equal to 6.5% is considered diagnostic of diabetes. Hemoglobin A1C (POCT) Date Value Ref Range Status 11/10/2017 14.5 (A) 4.2 - 5.6 % Final Comment: Point of care (POC) Hemoglobin A1c (HGBA1C) testing is intended to assess glucose control and provide a management tool for patients known to have diabetes and their healthcare providers. Target HGBA1C levels may depend on specific clinical circumstances. POC HGBA1C is not intended for use as a diagnostic or screening test; laboratory-based testing should be used for diagnostic purposes. The following information is supplemental and may not be applicable to specific diabetes management situations: The POC device librarian special collections provides a normal range of 4.2% to 6.5% for the HGBA1C POC test. However, the [place] [employer] guidelines indicate that patients with HGBA1C in the range of 5.7% to 6.4% are at increased risk for development of diabetes and that intervention by lifestyle modification may be beneficial. A HGBA1C level greater than or equal to 6.5% is considered diagnostic of diabetes, pending confirmatory testing. Use of HGBA1C testing to evaluate glucose control may not be appropriate for patients with hemoglobin variants or other conditions (e.g. anemia) that alter red blood cell lifespan. PCP: Ivy Jimenez III MD PAST MEDICAL HISTORY Diagnosis Date - Anxiety - Benign hypertension 08/07/2015 - Cannabis abuse 02/23/2010 - Carotid artery disorder (HCC) Right sided - Carotid stenosis 03/11/2010 - Cervical cancer ([facility]) - CVA (cerebral infarction) 11/2009 L hemiparesis and decreased coordination - DDD (degenerative disc disease), lumbar 02/23/2010 - Diabetes ([facility]) - Diabetes mellitus ([facility]) 02/23/2010 - Diabetic nephropathy with proteinuria ([facility]) 03/18/2014 - Diabetic ulcer of toe of left foot associated with type 2 diabetes mellitus, limited to breakdown of skin ([facility]) 10/17/2017 - Environmental allergies - Essential hypertension, benign 06/22/2012 - 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 ([facility]) - Hyperlipidemia - Hyperlipidemia LDL goal < 100 03/18/2014 - Lichen planus 11/09/2010 - Lumbago-sciatica due to displacement of lumbar intervertebral disc 02/23/2010 - Lumbar radiculopathy 10/17/2017 left sciatica - Moderate single current episode of major depressive disorder ([facility]) 08/07/2015 - PVD (peripheral vascular disease) ([facility]) 2017 - Spastic neurogenic bladder 05/14/2015 - Tobacco abuse - Type 2 diabetes mellitus with microalbuminuria, without long-term current use of insulin ([facility]) 05/08/2017 Current Outpatient Prescriptions: dicyclomine (BENTYL) 20 mg tablet Take 1 tablet by mouth three times daily before meals. mometasone (ELOCON) 0.1 % cream Apply 1 application to affected area once daily. sertraline (ZOLOFT) 100 mg tablet Take 1 tablet by mouth once daily. insulin glargine (BASAGLAR KWIKPEN U-100 INSULIN) 100 unit/mL (3 mL) inpn Inject 14 Units subcutaneously daily at bedtime. insulin lispro (HUMALOG KWIKPEN INSULIN) 100 unit/mL inpn Inject 5 Units subcutaneously w MEALS. Insulin [place], Disposable, (PEN NEEDLES) 31 gauge x 1/4 ndle Use one needle with each insulin dose. 4/day alcohol swabs (ALCOHOL WIPES) padm Apply 1 application to affected area four times daily. blood sugar diagnostic (FREESTYLE LITE STRIPS) test strip Test blood sugar(s) 4 times daily. Dx: Type 2 DM - Uncontrolled E11.65 Insulin: Yes lancets (FREESTYLE LANCETS) 28 gauge misc Test blood sugar(s) 4 times daily. Dx: Type 2 DM - Uncontrolled E11.65 Insulin: Yes Simethicone (GAS RELIEF) 125 mg chewable tablet Take 1 tablet by mouth every 6 hours as needed. SUMAtriptan (IMITREX) 50 mg tablet 50mg by mouth as needed for migraine headache; may repeat every 2 hrs as needed for migraine(max 4/day and 9/mo) acetaminophen (TYLENOL ARTHRITIS PAIN) 650 mg CR tablet Take 2 tablets by mouth twice daily as needed for Pain. naproxen (NAPROSYN) 500 mg tablet Take 1 tablet by mouth twice daily as needed for Pain. Take with food. omeprazole (PRILOSEC) 20 mg capsule Take 1 capsule by mouth daily before breakfast. 1/2 hr before meal. diphenhydrAMINE (BENADRYL) 50 mg capsule Take 1 capsule by mouth every 6 hours as needed for Itching/Rash. buPROPion XL (WELLBUTRIN XL) 150 mg 24 hr tablet Take 1 tablet by mouth once daily. lisinopril-hydrochlorothiazide (PRINZIDE,ZESTORETIC) 10-12.5 mg per tablet Take 1 tablet by mouth every morning. amLODIPine (NORVASC) 10 mg tablet Take 1 tablet by mouth once daily. busPIRone (BUSPAR) 10 mg tablet Take 1 tablet by mouth three times daily. No current facility-administered medications for this visit. ALLERGIES Allergen Reactions - Lipitor [Atorvastat* Other: See Comments fatigue - Penicillins Hives - Pravachol [Pravasta* Intolerance Fatigue, loss of appetite. - Prozac [Fluoxetine * Mental Status Change sleepiness PAST SURGICAL HISTORY Procedure Laterality Date - COLONOSCOP W/ OR W/O BRSH SPEC 04/11/2016 Colonoscopy - EGD W/O OR W/BRUSH/WASH 04/11/2016 EGD - LUMBAR OR CAUDAL EPIDURAL STEROID INJECTION 02/21/2011 - PAST SURGICAL HISTORY OF Exploratory surgery for cervical ca REVIEW OF SYSTEMS: CONSTITUTIONAL: No fevers, chills, nightsweats, unintended weight loss HEENT: Denies frequent or severe heaches, nasal congestion/sinus symptoms, problematic allergy problems. EYES: No diplopia or blurry vision. CARDIOVASCULAR: No chest pain, dyspnea, palpitations, orthopnea, PND, ankle edema. PULM: No dyspnea, unexplained cough. GI: No dysphagia/odynophagia, problematic reflux, constipation, diarrhea, changes in stool habits, hematochezia, melena. : No new urinary complaints, including dysuria, gross hematuria or pyuria. NEURO: No new balance problems, peripheral weakness/paresthesias or numbness of concern. MUSC-SKEL: No new joint pain, swelling, or erythema. PSY: No concerns regarding depression, anxiety or panic. INTEGUMENTARY: Gangrene of left 5th toe Physical Exam: Constitutional: Pt is a well developed 62 year old female who is alert, oriented, cooperative and in no apparent distress. OBJECTIVE: Vascular: DP and PT pulses are nonpalpable to left foot. DP and PT are biphasic with doppler. Left 5th toe is black to level of mtpj. There is no signs of infection gangrene. Dermatological: Dry gangrene is noted to left 5th toe to level of mtpj. Musculoskeletal/Orthopaedic: Patient has pain to palpation of left 5th toe ASSESSMENT: (I96) Gangrene (HCC) (primary encounter diagnosis) (I73.9) PAD (peripheral artery disease) ([facility]) PLAN: 1. History and physical examination completed today. 2. Patient was examined. She has dry noninfected gangrene of left 5th toe. She had been scheduled for amputation last month but was not cleared for surgery. She had an appointment arranged for November 28 for surgical clearance but patient did show up for her appointment. She continues to have pain of left 5th toe with stable dry gangrene. I have discussed with patient the need to take responsibility and make her follow- up so that we can proceed with surgery. I am willing to perform her amputation provided we get her cleared. Today, I spoke with [facility]. I am going to admit patient to hospital for surgical clearance and will proceed with amptuation on Monday. She will present to hospital on Monday. I informed patient that I plan on performing partial 5th ray amputation. She has hx of pad and continues to smoke. Her biggest risk is nonhealing of surgical amputation and need for more proximal amputation. Patient understands this risk and agrees to proceed. 3. I will order cbc, esr, crp and xrays of left foot 4. Patient will present to hospital on Monday and will plan for surgery some time Monday. She will continue with plavix as she is s/p vascular intervention. Allie Pompa DPM CNOV Observed: 12/08/2017 Status: COMPLETED Source: [place] 1:40 PM [facility] REPOSITORY Office Visit (PODIWS) DAVINA GREEN ([id number]) 1955 F Date Time Provider Department 12/08/17 1:40 PM ALLIE POMPA PODIWS During your visit today, we recorded the following information about you: Allie Pompa DPM 12/08/2017 10:03 PM Signed Follow up podiatric office visit for: Chief Complaint: This 62 year old who presents for follow up:gangrene of left 5th toe. Patient has been doing the following since last visit: patient continues with betadine. She was originally scheduled for amputation last month but she was not cleared. She was scheduled with Dr. Jimenez on November 28 for surgical clearance but patient did not make her appointment. She continues to complain of painful gangrene of left 5th toe. She denies any drainage. She denies any n/v/f/c. She continues to smoke 1/4-1/2 pack per day. She has no other complaints at this time. PAIN EVALUATION 12/08/2017 Pain Score: 8 Pain Location: Foot-Left Description: Burning;Sharp Duration Amount of Time: - ongoing Duration Units: Months Frequency: Continuous Hemoglobin A1C Date Value Ref Range Status 11/04/2016 12.3 (H) 4.3 - 5.6 % Final Comment: [place] [employer] guidelines indicate that patients with HgbA1c in the range 5.7-6.4% are at increased risk for development of diabetes, and intervention by lifestyle modification may be beneficial. HgbA1c greater or equal to 6.5% is considered diagnostic of diabetes. Hemoglobin A1C (POCT) Date Value Ref Range Status 11/10/2017 14.5 (A) 4.2 - 5.6 % Final Comment: Point of care (POC) Hemoglobin A1c (HGBA1C) testing is intended to assess glucose control and provide a management tool for patients known to have diabetes and their healthcare providers. Target HGBA1C levels may depend on specific clinical circumstances. POC HGBA1C is not intended for use as a diagnostic or screening test; laboratory-based testing should be used for diagnostic purposes. The following information is supplemental and may not be applicable to specific diabetes management situations: The POC device librarian special collections provides a normal range of 4.2% to 6.5% for the HGBA1C POC test. However, the [place] [employer] guidelines indicate that patients with HGBA1C in the range of 5.7% to 6.4% are at increased risk for development of diabetes and that intervention by lifestyle modification may be beneficial. A HGBA1C level greater than or equal to 6.5% is considered diagnostic of diabetes, pending confirmatory testing. Use of HGBA1C testing to evaluate glucose control may not be appropriate for patients with hemoglobin variants or other conditions (e.g. anemia) that alter red blood cell lifespan. PCP: Ivy Jimenez III MD PAST MEDICAL HISTORY Diagnosis Date - Anxiety - Benign hypertension 08/07/2015 - Cannabis abuse 02/23/2010 - Carotid artery disorder (HCC) Right sided - Carotid stenosis 03/11/2010 - Cervical cancer ([facility]) - CVA (cerebral infarction) 11/2009 L hemiparesis and decreased coordination - DDD (degenerative disc disease), lumbar 02/23/2010 - Diabetes ([facility]) - Diabetes mellitus ([facility]) 02/23/2010 - Diabetic nephropathy with proteinuria ([facility]) 03/18/2014 - Diabetic ulcer of toe of left foot associated with type 2 diabetes mellitus, limited to breakdown of skin ([facility]) 10/17/2017 - Environmental allergies - Essential hypertension, benign 06/22/2012 - 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 ([facility]) - Hyperlipidemia - Hyperlipidemia LDL goal < 100 03/18/2014 - Lichen planus 11/09/2010 - Lumbago-sciatica due to displacement of lumbar intervertebral disc 02/23/2010 - Lumbar radiculopathy 10/17/2017 left sciatica - Moderate single current episode of major depressive disorder ([facility]) 08/07/2015 - PVD (peripheral vascular disease) ([facility]) 2017 - Spastic neurogenic bladder 05/14/2015 - Tobacco abuse - Type 2 diabetes mellitus with microalbuminuria, without long-term current use of insulin ([facility]) 05/08/2017 Current Outpatient Prescriptions: dicyclomine (BENTYL) 20 mg tablet Take 1 tablet by mouth three times daily before meals. mometasone (ELOCON) 0.1 % cream Apply 1 application to affected area once daily. sertraline (ZOLOFT) 100 mg tablet Take 1 tablet by mouth once daily. insulin glargine (BASAGLAR KWIKPEN U-100 INSULIN) 100 unit/mL (3 mL) inpn Inject 14 Units subcutaneously daily at bedtime. insulin lispro (HUMALOG KWIKPEN INSULIN) 100 unit/mL inpn Inject 5 Units subcutaneously w MEALS. Insulin [place], Disposable, (PEN NEEDLES) 31 gauge x 1/4 ndle Use one needle with each insulin dose. 4/day alcohol swabs (ALCOHOL WIPES) padm Apply 1 application to affected area four times daily. blood sugar diagnostic (FREESTYLE LITE STRIPS) test strip Test blood sugar(s) 4 times daily. Dx: Type 2 DM - Uncontrolled E11.65 Insulin: Yes lancets (FREESTYLE LANCETS) 28 gauge misc Test blood sugar(s) 4 times daily. Dx: Type 2 DM - Uncontrolled E11.65 Insulin: Yes Simethicone (GAS RELIEF) 125 mg chewable tablet Take 1 tablet by mouth every 6 hours as needed. SUMAtriptan (IMITREX) 50 mg tablet 50mg by mouth as needed for migraine headache; may repeat every 2 hrs as needed for migraine(max 4/day and 9/mo) acetaminophen (TYLENOL ARTHRITIS PAIN) 650 mg CR tablet Take 2 tablets by mouth twice daily as needed for Pain. naproxen (NAPROSYN) 500 mg tablet Take 1 tablet by mouth twice daily as needed for Pain. Take with food. omeprazole (PRILOSEC) 20 mg capsule Take 1 capsule by mouth daily before breakfast. 1/2 hr before meal. diphenhydrAMINE (BENADRYL) 50 mg capsule Take 1 capsule by mouth every 6 hours as needed for Itching/Rash. buPROPion XL (WELLBUTRIN XL) 150 mg 24 hr tablet Take 1 tablet by mouth once daily. lisinopril-hydrochlorothiazide (PRINZIDE,ZESTORETIC) 10-12.5 mg per tablet Take 1 tablet by mouth every morning. amLODIPine (NORVASC) 10 mg tablet Take 1 tablet by mouth once daily. busPIRone (BUSPAR) 10 mg tablet Take 1 tablet by mouth three times daily. No current facility-administered medications for this visit. ALLERGIES Allergen Reactions - Lipitor [Atorvastat* Other: See Comments fatigue - Penicillins Hives - Pravachol [Pravasta* Intolerance Fatigue, loss of appetite. - Prozac [Fluoxetine * Mental Status Change sleepiness PAST SURGICAL HISTORY Procedure Laterality Date - COLONOSCOP W/ OR W/O [facility] SPEC 04/11/2016 Colonoscopy - EGD W/O OR W/BRUSH/WASH 04/11/2016 EGD - LUMBAR OR CAUDAL EPIDURAL STEROID INJECTION 02/21/2011 - PAST SURGICAL HISTORY OF Exploratory surgery for cervical ca REVIEW OF SYSTEMS: CONSTITUTIONAL: No fevers, chills, nightsweats, unintended weight loss HEENT: Denies frequent or severe heaches, nasal congestion/sinus symptoms, problematic allergy problems. EYES: No diplopia or blurry vision. CARDIOVASCULAR: No chest pain, dyspnea, palpitations, orthopnea, PND, ankle edema. PULM: No dyspnea, unexplained cough. GI: No dysphagia/odynophagia, problematic reflux, constipation, diarrhea, changes in stool habits, hematochezia, melena. : No new urinary complaints, including dysuria, gross hematuria or pyuria. NEURO: No new balance problems, peripheral weakness/paresthesias or numbness of concern. MUSC-SKEL: No new joint pain, swelling, or erythema. PSY: No concerns regarding depression, anxiety or panic. INTEGUMENTARY: Gangrene of left 5th toe Physical Exam: Constitutional: Pt is a well developed 62 year old female who is alert, oriented, cooperative and in no apparent distress. OBJECTIVE: Vascular: DP and PT pulses are nonpalpable to left foot. DP and PT are biphasic with doppler. Left 5th toe is black to level of mtpj. There is no signs of infection gangrene. Dermatological: Dry gangrene is noted to left 5th toe to level of mtpj. Musculoskeletal/Orthopaedic: Patient has pain to palpation of left 5th toe ASSESSMENT: (I96) Gangrene (HCC) (primary encounter diagnosis) (I73.9) PAD (peripheral artery disease) ([facility]) PLAN: 1. History and physical examination completed today. 2. Patient was examined. She has dry noninfected gangrene of left 5th toe. She had been scheduled for amputation last month but was not cleared for surgery. She had an appointment arranged for November 28 for surgical clearance but patient did show up for her appointment. She continues to have pain of left 5th toe with stable dry gangrene. I have discussed with patient the need to take responsibility and make her follow-up so that we can proceed with surgery. I am willing to perform her amputation provided we get her cleared. Today, I spoke with [facility]. I am going to admit patient to hospital for surgical clearance and will proceed with amptuation on Monday. She will present to hospital on Monday. I informed patient that I plan on performing partial 5th ray amputation. She has hx of pad and continues to smoke. Her biggest risk is nonhealing of surgical amputation and need for more proximal amputation. Patient understands this risk and agrees to proceed. 3. I will order cbc, esr, crp and xrays of left foot 4. Patient will present to hospital on Monday and will plan for surgery some time Monday. She will continue with plavix as she is s/p vascular intervention. Allie Pompa DPM Referring Provider: ALLIE POMPA [[id number]] Allergies As of Date: 12/08/2017 Noted Allergy Reaction LIPITOR (ATORVASTATIN CALCIUM) 02/23/2010 14 - Other: See Comments Comments: fatigue PENICILLINS 01/28/2010 4 - Hives PRAVACHOL (PRAVASTATIN SODIUM) 03/04/2010 5 - Intolerance Comments: Fatigue, loss of appetite. PROZAC (FLUOXETINE HCL) 08/07/2015 1 - Mental Status Change Comments: sleepiness Date Reviewed: 12/08/2017 Reviewed by: Lita Valdes LPN - Fully Assessed Reason for Visit: Established Patient [175] Cmt: follow up gangrene left 5th toe Primary Visit Diagnosis:Gangrene (HCC) [I96] Other Visit Diagnosis:PAD (peripheral artery disease) ([facility]) [I73.9] Order(s):XR FOOT GENERAL 3V AP/LAT/OBL LT [[id number]] Order #: [id number] FUTURE CBC + DIFF [SQCBCDIF] Order #: [id number] FUTURE SED RATE WESTERGREN [SQWSR] Order #: [id number] FUTURE C-REACTIVE PROTEIN (CRP) [SQCRP] Order #: [id number] FUTURE HYDROcodone-acetaminophen (NORCO) 5-325 mg per tabletTake 1 tablet by mouth every 6 hours as needed for up to 7 days.Disp: 28 tabletRfl: 0 Prescriptions as of 12/08/2017 Sig: HYDROCODONE 5 MG-ACETAMINOPHE* Take 1 tablet by mouth every * DICYCLOMINE 20 MG TABLET Take 1 tablet by mouth three * MOMETASONE 0.1 % TOPICAL CREAM Apply 1 application to affect* SERTRALINE 100 MG TABLET Take 1 tablet by mouth once d* INSULIN GLARGINE (U-100) 100 * Inject 14 Units subcutaneousl* INSULIN LISPRO (U-100) 100 UN* Inject 5 Units subcutaneously* PEN NEEDLE, DIABETIC 31 GAUGE* Use one needle with each insu* ALCOHOL SWABS Apply 1 application to affect* BLOOD SUGAR DIAGNOSTIC STRIPS Test blood sugar(s) 4 times d* LANCETS 28 GAUGE Test blood sugar(s) 4 times d* SIMETHICONE 125 MG CHEWABLE T* Take 1 tablet by mouth every * SUMATRIPTAN 50 MG TABLET 50mg by mouth as needed for m* ACETAMINOPHEN ER 650 MG TABLE* Take 2 tablets by mouth twice* NAPROXEN 500 MG TABLET Take 1 tablet by mouth twice * OMEPRAZOLE 20 MG CAPSULE,GRABIEL* Take 1 capsule by mouth daily* DIPHENHYDRAMINE 50 MG CAPSULE Take 1 capsule by mouth every* BUPROPION XL 150 MG TAB Take 1 tablet by mouth once d* LISINOPRIL 10 MG-HYDROCHLOROT* Take 1 tablet by mouth every * AMLODIPINE 10 MG TABLET Take 1 tablet by mouth once d* BUSPIRONE 10 MG TABLET Take 1 tablet by mouth three * Problem List As Of Date 12/08/2017 Noted Resolved Stroke/Cerebrovascular Accident [I63.9] INVALID FOR* Lumbago-Sciatica due to Displacement of Lumbar *INVALID FOR* DDD (Degenerative Disc Disease), Lumbar [M51.36]INVALID FOR* Cannabis Abuse [F12.10] INVALID FOR* Lichen planus [L43.9] INVALID FOR* Lumbar facet arthropathy [M46.96] INVALID FOR* Essential hypertension, benign [I10] INVALID FOR* Nasal obstruction [J34.89] INVALID FOR* Myofascial pain [M79.1] INVALID FOR* Diabetic nephropathy with proteinuria (HCC) [E1*INVALID FOR* Hyperlipidemia with target LDL less than 100 [E*INVALID FOR* History of cerebrovascular accident (CVA) with *INVALID FOR* Urge incontinence of urine [N39.41] INVALID FOR* 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 Gangrene (HCC) [I96] INVALID FOR* More... Prescriptions ordered this encounter Disp Refills Start End HYDROCODONE 5 MG-ACETAMINOPHEN 325 M* 28 t* 0 12/08/2017 12/15/2017 Class: Print RX Cmt: Gangrene of left 5th toe Route: ORAL Sig: Take 1 tablet by mouth every 6 hours as needed for up to 7 days. Encounter Status:Closed by ALLIE POMPA DPM on 12/08/17 CBC AND DIFFERENTIAL Collected: 11/24/2017 Status: F Source: [place] 5:[address] [facility] REPOSITORY TYPE CODE TESTS RESULT OUT OF REFERENCE UNITS RANGE LAB WBC 3.70-11.00 k/uL WBC 10.19 LAB RBC 3.90-5.20 m/uL RBC 4.64 LAB HGB 11.5-15.5 g/dL Hemoglobin 13.6 LAB HCT 36.0-46.0 % Hematocrit 42.3 LAB MCV 80.0-100.0 fL MCV 91.2 LAB MCH 26.0-34.0 pG MCH 29.3 LAB MCHC 30.5-36.0 g/dL MCHC 32.2 LAB RDWCV 11.5-15.0 % RDW-CV 14.5 LAB PLTCT 150-400 k/uL Platelet High Count 507 LAB MPV 9.0-12.7 fL MPV 9.0 LAB ANEUT % Neut% 62.3 LAB AANEUT 1.45-7.50 k/uL Abs Neut 6.35 LAB ALYMP % Lymph% 24.9 LAB AALYMP 1.00-4.00 k/uL Abs Lymph 2.54 LAB AMONO % [place]% 6.9 LAB AAMONO <0.87 k/uL Abs [place] 0.70 LAB AEOS % Eosin% 5.1 LAB AAEOS <0.46 k/uL Abs High Eosin 0.52 LAB ABASO % Baso% 0.8 LAB AABASO <0.11 k/uL Abs Baso 0.08 LAB AUNRBC 0 /100 WBC NRBCs 0.0 LAB ABNRBC <0.01 k/uL Absolute nRBC <0.01 LAB DTYP DTYPE Auto Diff Performed By: #### CBCDIF, WSR, CRP #### [facility] [address] [address] [place], [place] [address] SED RATE WESTERGREN Collected: 11/24/2017 Status: F Source: [place] 5:00 PM [facility] REPOSITORY TYPE CODE TESTS RESULT OUT OF REFERENCE UNITS RANGE LAB WSR 0-20 mm/hr Sed Rate High [place] 78 Performed By: #### CBCDIF, WSR, CRP #### [facility] [place], [place] [address] C-REACTIVE PROTEIN Collected: 11/24/2017 Status: F Source: [place] 5:00 PM [facility] REPOSITORY TYPE CODE TESTS RESULT OUT OF REFERENCE UNITS RANGE LAB CRP <0.9 mg/dL High C-Reactive 2.6 Protein Performed By: #### CBCDIF, WSR, CRP #### [facility] [address] [place], [place] [address] ECG COMPLETE W Observed: 11/24/2017 Status: F Source: [place] INTERPRETATION 3:39 PM [facility] REPOSITORY NAME : DAVINA GREEN PID : [id number] : 1955 Gender : Female Race : ORD : [id number] Procedure Date : Nov 24 2017 15:39:04 Edit Date : May 05 2018 13:01:48 Diagnosis:NORMAL SINUS RHYTHM INFERIOR MYOCARDIAL INFARCTION , AGE UNDETERMINED ABNORMAL ECG Confirmed by SEE DIALLO D.O. ([id number]) on 05/05/2018 1:01:41 PM Ventricular Rate : 90 BPM Atrial Rate : 90 BPM P-R Interval : 118 ms QRS Duration : 94 ms Q-T Interval : 398 ms QTC Calculation(Bezet) : 486 ms P Rock : 68 degrees R Rock : -20 degrees T Rock : 68 degrees Test Reason : Location : 185 : [facility] Overread By : SEE DIALLO D.O. Edited By : SEE DIALLO D.O. Referred By : CANDICE STEVEN Acquired by : WELLINGTON ENRIQUE Observed: 11/24/2017 Status: COMPLETED Source: [place] 3:24 PM [facility] REPOSITORY HNO ID: [id number] Author: Candice Steven Service: (none) Author Type: Physician Type: Progress Notes Filed: 11/24/2017 6:17 PM Note Text: Reason for Visit Patient presents with: Same Day Appointment: preop clearance with ekg per surgery possibly Monday Davina Green is a 62 year old female who presents here today for Above Complaints.. Health Maintenance DILATED RETINAL EXAM DTAP,TDAP,TD(1 - Tdap) HPV EVERY 5 YEARS ZOSTER VACCINE (SHINGRIX)(1 of 2) PAP EVERY 5 YEARS URINE ALBUMIN CREATININE RATIO LDL Patient is new to [place], she is a poorly controlled Diabetic hba1c , smoker for 20 years, had severe PAD, and gangrene of the left little toe, dry, she is going to have amputation under anesthesia. Had angioplasty of the left leg last week. ? Patient presents for preop clearance for dry gangrene. Upcoming surgery for: dry gangrene Hx of previous anesthesia problems: No. Family hx of anesthesia problems: No. Current signs of infection: No. Chest pain: no Shortness of breath: Yes. Known sleep apnea: No. Hx of clotting issues: No. Current bleeding or bruising: No. METS: Walk indoors, such as around the house (1.75 METs): YES Do light work around the house, such as dusting or washing dishes (2.70 METs): YES Take care of self; that is eating, dressing, bathing, using the toilet (2.75 METs): YES Walk a block or two on level ground (2.75 METs): YES Do moderate work around the house such as vacuuming, sweeping floors, but cannot Carry in groceries (3.50 METs): YES ? She has not been taking any OTC medication including vitamins. ? PAST MEDICAL/SURGICAL/FAMILY/SOCIAL HISTORY ? PAST MEDICAL HISTORY PAST MEDICAL HISTORY Diagnosis Date - Anxiety ? - Back pain ? - Depression ? - Diverticulosis ? - DM (diabetes mellitus) (HCC) 12/24/2016 - Fibromyalgia, primary ? ? Dr.Mark Lock - GERD (gastroesophageal reflux disease) ? - HTN (hypertension) ? - Insomnia ? - Leg swelling ? - Migraines ? - NAFLD (nonalcoholic fatty liver disease) ? - Obstructive sleep apnea 09/17/2013 ? PSG AND titration done @ [place] - [facility] 16.78 - Panic attacks ? - PCOS (polycystic ovarian syndrome) ? - Restless leg ? - Snoring ? ? PAST SURGICAL HISTORY PAST SURGICAL HISTORY Procedure Laterality Date - COLONOSCOP W/ OR W/O [facility] SPEC ? 06/20/2016 ? Colonoscopy - COLONOSCOPY ? 2000 ? [place] - IANDD ABSC COMPL OR MULTI ? ? ? breast: right - LEXISCAN STRESS TEST ? 11/29/13 - LIVER BIOPSY ? ? ? FAMILY HISTORY FAMILY HISTORY Problem Relation Age of Onset - Heart Mother ? ? ? 52 yrs - Hypertension Mother ? - Arthritis Mother ? - Heart disease Father ? ? ? 38 yrs - Diabetes Father ? - diverticulitis [OTHER] Paternal Grandmother ? - None Sister ? - Hypertension Brother ? - pituitatry tumor [OTHER] Brother ? - hypothyrodism [OTHER] Brother ? - Hypertension Brother ? - hyperpararodism [OTHER] Brother ? ? SOCIAL HISTORY SOCIAL HISTORY Social History Marital status: Spouse name: Years of education: Number of children: 0 ? Occupational History Occupation Employer Comment [employer]* ? Social History Main Topics Smoking status: Current Every Day Smoker Packs/day: 0.50 Years: 20.00 Types: Cigarettes Smokeless tobacco: Never Used Comment: 6-8 cigarettes per day - less then 1 pack Alcohol use: No Drug use: No Sexual activity: Not Currently ? Other Topics Concern Caffeine Concern Yes Special Diet No Comment:diabetic Exercise No Comment:sedentary ? ? MEDICATIONS/ALLERGIES CURRENT MEDICATIONS ? Current Outpatient Prescriptions: neomycin 500 mg tablet Take 2 tablets by mouth at 9pm and take 2 tablets by mouth at 11pm the night before surgery. Disp: 4 tablet Rfl: 0 metroNIDAZOLE (FLAGYL) 500 mg tablet Take 1 tablet by mouth at 9pm and take 1 tablet by mouth at 11pm the night before surgery. Disp: 2 tablet Rfl: 0 polyethylene glycol 3350 (MIRALAX) 17 gram/dose powder Take 51.4 g by mouth as directed. Take Entire bottle Disp: 238 g Rfl: 0 bisacodyl EC (DULCOLAX, BISACODYL,) 5 mg EC tablet Take 1 tablet by mouth as directed. for constipation. Disp: 4 tablet Rfl: 0 ergocalciferol, vitamin D2, (VITAMIN D) 50,000 unit capsule Take 1 capsule by mouth once each week. Disp: 24 capsule Rfl: 0 glimepiride (AMARYL) 4 mg tablet TAKE 1 TABLET IN THE MORNING AND HALF A TABLET IN THE EVENING. Disp: 45 tablet Rfl: 2 fexofenadine (DIONY) 180 mg tablet Take 1 tablet by mouth once daily. Disp: 30 tablet Rfl: 11 losartan (COZAAR) 25 mg tablet Take 2 tablets by mouth once daily. Disp: 30 tablet Rfl: 11 atorvastatin (LIPITOR) 40 mg tablet Take 1 tablet by mouth once daily. Disp: 30 tablet Rfl: 11 metFORMIN ER (GLUCOPHAGE XR) 500 mg 24 hr tablet Take 2 tablets by mouth twice daily before meals. Disp: 120 tablet Rfl: 11 blood sugar diagnostic (BLOOD GLUCOSE TEST) test strip Test blood sugar(s) 3 times daily. Dx: diabetes type 2 uncontrolled. Insulin: No Disp: 90 Strip Rfl: 11 gabapentin (NEURONTIN) 600 mg tablet Takes 2 tablets by mouth at bedtime to equal 1200mg Disp: 60 tablet Rfl: 2 Blood Glucose Control, Normal soln Test controls as needed. Dx: Type 2 DM - Uncontrolled E11.65 Disp: 1 Each Rfl: 3 Lancets lancets Test blood sugar(s) 3 times daily. Dx: diabetes mellitus, uncontrolled . Insulin: no Disp: 100 Each Rfl: 11 Blood[place]Glucose Meter [facility] [place] [place] 1 meter Kit. Dx: Diabetes mellitus, type 2 uncontrolled Insulin: No Disp: 1 Each Rfl: 0 Hydrochlorothiazide 12.5 mg capsule Take 1 capsule by mouth once daily. Disp: 30 capsule Rfl: 12 Blood Pressure Cuff - Home Use BLOOD PRESSURE CUFF FOR HOME USE. DX: I10 Disp: 1 Each Rfl: 0 ibuprofen (MOTRIN) 200 mg tablet Take 1-2 tablets by mouth every 6 hours as needed for Pain (Take with food.). Disp: Rfl: 0 ? No current facility-administered medications for this visit. ALLERGIES ALLERGIES Allergen Reactions - Clindamycin Diarrhea, Vomiting - Biaxin [Clarithromy* Diarrhea, Vomiting - Cefdinir Rash, Diarrhea, Itching - Codeine Other: See Comments ? ? syncope - Flonase [Fluticason* Other: See Comments ? ? gave her open sores in nares - Lisinopril Diarrhea, Vomiting, Other: See Comments ? ? fainting - Naprosyn [Naproxen] Other: See Comments ? ? make belike she is drunk - Penicillins Rash - Requip [Ropinirole] GI Upset, Other: See Comments ? ? chest pain - Sulfur Other: See Comments ? ? SORES IN MOUTH ? ? REVIEW OF SYSTEMS General: Gradual weight loss for past couple years, malaise or fevers. Neuro: had stroke in 2009,had carotid endarterectomy, No hemiplegia, paraplegia or quadriplegia. No neurological symptoms or problems. Respiratory: Obstructive Sleep Apnea (on CPAP) Cardiovascular: Hypertension requiring meds GI: GERD, NAFLD per GI notes : No history of UTI in past 6 weeks. No history of renal failure. Not currently on or requiring dialysis. No history of symptoms or problems. [employer]ATOR: LMP: 03/10/2017 Endocrine: Diabetes Mellitus poorly controlled, non compliant with Diabetic Neuropathy, nephropathy. Hematology: No history of bleeding or clotting disorder. No history of hematological symptoms or problems. Oncology: No history of CA metastasis, chemo within 30 days, or radiotherapy within 90 days. No history of oncological symptoms or problems. Psych: Depression Skin: Negative for lesions, rash, and itching. ? PHYSICAL EXAM VITALS: BP 150/68 Pulse 66 Temp (Src) 98.1 (Oral) Ht 5' 4 (1.63m) Wt 281 lb 1.6 oz (127.5kg) SpO2 99% LMP 03/10/2017 BMI 48.23 kg/(m2). General: Alert and oriented Skin: Normal color, no rash, no lesions. HEENT: EOM, pupils equal, round and reactive. Cardiovascular: Normal S1 AND S2, no rubs, murmurs or gallops. No JVD. Pulse regular. Lungs: Normal breath sounds, no wheezes or crackles. Abdomen: Soft, non-tender, no rigidity. Extremities: No deformity, no edema or tenderness, no joint swelling or clubbing. Neurological: Normal cognition and motor skills. Pulses: Carotid and radial pulses normal +2. ? ASSESSMENT Ms. Davina Green, 62 old female referred to me for preoperative evaluation. Patient has the following medical comorbidities which might affect the perioperative course: - Type II Diabetes with peripheral neuropathy, nephropathy, poorly controlled Diabetes Mellitus non compliance. Patient is on oral medications. - Hypertension, well controlled. - BP runs high when off losartan and given dependence will have her take losartan on day of surgery ? Patient's RCRI (Revised Cardiac Risk Index: CAD/CHF/Stroke or TIA/SCr>2/DM on Insulin/High Risk Surgery) score is 0 and is at low risk for major adverse cardiac events in the perioperative period. ? Diagnostic tests reviewed for today's visit: Most recent labs ? PLAN/RECOMMENDATIONS CARDIAC: Following additional test(s) requested for risk assessment / evaluation prior to surgery: EKG and echo ?She would need echo before proceeding for surgery because she has an age indeterminate infarct in the inferior leads on EKG which was not present In 2010. We just need to confirm if her systolic fucntion is good PULMONARY: Patients pulmonary status is stable Patient is at increased risk for postoperative pulmonary complications due to her smoking status ? ENDOCRINE: DIABETES: -needs to take her long acting insulin on the darleen of surgery - Patient has been instructed on Preoperative DM medication management. ? VASCULAR/ANTICOAGULATION: VTE prophylaxis as deemed appropriate by the surgical service. ? ? Patient Instructions: As per patient instructions section. General Preoperative/Medication/Fasting Instructions ? I have discussed the above recommendations with the patient in detail, in ivy and lay terms, and provided a written summary of instructions as needed. We have discussed that no surgery is without risk, but that the goal of preoperative assessment is to optimize that risk, and that was clearly understood by the patient. I have given ample opportunity for the patient to ask questions, and answered all questions to their stated satisfaction. ? The following test results were reviewed and were normal or within acceptable limits for the proposed surgery/procedure. -EKG: shows inferior infarct, which was not present in 2010. Review of Systems CONSTITUTIONAL: No fevers, chills night sweats, unintended weight loss CARDIOVASCULAR: No chest pain, dyspnea, palpitations, orthopnea, PND, ankle edema. PULM: No dyspnea, unexplained cough. GI: No dysphagia/odynophagia, problematic reflux, constipation, diarrhea, changes in stool habits, hematochezia, melena. : No new urinary complaints, including dysuria, gross hematuria or pyuria. NEURO: No new balance problems, peripheral weakness/paresthesias or numbness of concern. Physical Exam BP 102/60 (BP Site: Left Arm, BP Position: Sitting, BP Cuff Size: Regular Adult) Pulse 101 Resp 16 Ht 152.4 cm (5') Wt 59 kg (130 lb) SpO2 96% BMI 25.39 kg/m? General appearance: Well appearing, alert, in no acute distress, well nourished. Skin: Skin color, texture, turgor normal, no suspicious rashes or lesions Head: Normocephalic, no masses, lesions, tenderness or abnormalities Eyes: Anicteric sclera. Pupils are equally round and reactive to light. Extraocular movements are intact. Lungs: Lungs clear to auscultation. No wheezing, rhonchi, rales Heart: RRR without murmur, gallop, or rubs. Extremities: No deformities, edema, skin discoloration, clubbing or cyanosis. Good capillary refill. ASSESSMENT/PLAN: 1. Preop examination - ICD9: V72.84, ICD10: Z01.818 (primary diagnosis) On the RCRI she has 2 positive points, if she has cardiac issues it would be 3, which would place her at high risk, although the procedure itself is low risk , hence we need to the risk assessment . Her procedure it self it low risk, but with her smoking status, unclear lung status and unclear cardiac status I am not comfortable in clearing her for surgery without at least an echo. Which is ordered kash She also has to give a chest xray and has to give more lab work which she has not yet. - ECG COMPLETE W INTERPRETATION - ECHO- kash - ECHO - XR CHEST 2V FRONTAL/LAT 2. Cerebrovascular accident (CVA), unspecified mechanism (HCC) - ICD9: 434.91, ICD10: I63.9 3. Essential hypertension, benign - ICD9: 401.1, ICD10: I10 Stable. 4. Diabetic nephropathy with proteinuria (HCC) - ICD9: 250.40, 583.81, ICD10: E11.21 She smokes tobacco a pack a day and continues it Spent more than 40 mins with the patient in dirrect FTF to come to this consclusion It the procedure has to be done on an emergency basis anyway it needs to be and they will proceed. CANDICE STEVEN MD CNOV Observed: 11/24/2017 Status: COMPLETED Source: [place] 3:00 PM [facility] REPOSITORY Office Visit (INTMWS) PETER,JOY ([id number]) 1955 F Date Time Provider Department 11/24/17 3:00 PM CANDICE STEVEN INTMWS During your visit today, we recorded the following information about you: Temperature Pulse Respiration Blood pressure 97 degrees 101/minute 16/minute 102/60 Weight Height 59 kg 1.524 m CANDICE STEVEN MD 11/24/2017 6:17 PM Signed Reason for Visit Patient presents with: Same Day Appointment: preop clearance with ekg per surgery possibly Monday Davina Green is a 62 year old female who presents here today for Above Complaints.. Health Maintenance DILATED RETINAL EXAM DTAP,TDAP,TD(1 - Tdap) HPV EVERY 5 YEARS ZOSTER VACCINE (SHINGRIX)(1 of 2) PAP EVERY 5 YEARS URINE ALBUMIN CREATININE RATIO LDL Patient is new to me, she is a poorly controlled Diabetic hba1c , smoker for 20 years, had severe PAD, and gangrene of the left little toe, dry, she is going to have amputation under anesthesia. Had angioplasty of the left leg last week. ? Patient presents for preop clearance for dry gangrene. Upcoming surgery for: dry gangrene Hx of previous anesthesia problems: No. Family hx of anesthesia problems: No. Current signs of infection: No. Chest pain: no Shortness of breath: Yes. Known sleep apnea: No. Hx of clotting issues: No. Current bleeding or bruising: No. METS: Walk indoors, such as around the house (1.75 METs): YES Do light work around the house, such as dusting or washing dishes (2.70 METs): YES Take care of self; that is eating, dressing, bathing, using the toilet (2.75 METs): YES Walk a block or two on level ground (2.75 METs): YES Do moderate work around the house such as vacuuming, sweeping floors, but cannot Carry in groceries (3.50 METs): YES ? She has not been taking any OTC medication including vitamins. ? PAST MEDICAL/SURGICAL/FAMILY/SOCIAL HISTORY ? PAST MEDICAL HISTORY PAST MEDICAL HISTORY Diagnosis Date - Anxiety ? - Back pain ? - Depression ? - Diverticulosis ? - DM (diabetes mellitus) (HCC) 12/24/2016 - Fibromyalgia, primary ? ? Dr.Mark Lock - GERD (gastroesophageal reflux disease) ? - HTN (hypertension) ? - Insomnia ? - Leg swelling ? - Migraines ? - NAFLD (nonalcoholic fatty liver disease) ? - Obstructive sleep apnea 09/17/2013 ? PSG AND titration done @ [place] - [facility] 16.78 - Panic attacks ? - PCOS (polycystic ovarian syndrome) ? - Restless leg ? - Snoring ? ? PAST SURGICAL HISTORY PAST SURGICAL HISTORY Procedure Laterality Date - COLONOSCOP W/ OR W/O [facility] SPEC ? 06/20/2016 ? Colonoscopy - COLONOSCOPY ? 2000 ? -[place] - IANDD ABSC COMPL OR MULTI ? ? ? breast: right - LEXISCAN STRESS TEST ? 11/29/13 - LIVER BIOPSY ? ? ? FAMILY HISTORY FAMILY HISTORY Problem Relation Age of Onset - Heart Mother ? ? ? 52 yrs - Hypertension Mother ? - Arthritis Mother ? - Heart disease Father ? ? ? 38 yrs - Diabetes Father ? - diverticulitis [OTHER] Paternal Grandmother ? - None Sister ? - Hypertension Brother ? - pituitatry tumor [OTHER] Brother ? - hypothyrodism [OTHER] Brother ? - Hypertension Brother ? - hyperpararodism [OTHER] Brother ? ? SOCIAL HISTORY SOCIAL HISTORY Social History Marital status: Spouse name: Years of education: Number of children: 0 ? Occupational History Occupation Employer Comment [employer]* ? Social History Main Topics Smoking status: Current Every Day Smoker Packs/day: 0.50 Years: 20.00 Types: Cigarettes Smokeless tobacco: Never Used Comment: 6-8 cigarettes per day - less then 1 pack Alcohol use: No Drug use: No Sexual activity: Not Currently ? Other Topics Concern Caffeine Concern Yes Special Diet No Comment:diabetic Exercise No Comment:sedentary ? ? MEDICATIONS/ALLERGIES CURRENT MEDICATIONS ? Current Outpatient Prescriptions: neomycin 500 mg tablet Take 2 tablets by mouth at 9pm and take 2 tablets by mouth at 11pm the night before surgery. Disp: 4 tablet Rfl: 0 metroNIDAZOLE (FLAGYL) 500 mg tablet Take 1 tablet by mouth at 9pm and take 1 tablet by mouth at 11pm the night before surgery. Disp: 2 tablet Rfl: 0 polyethylene glycol 3350 (MIRALAX) 17 gram/dose powder Take 51.4 g by mouth as directed. Take Entire bottle Disp: 238 g Rfl: 0 bisacodyl EC (DULCOLAX, BISACODYL,) 5 mg EC tablet Take 1 tablet by mouth as directed. for constipation. Disp: 4 tablet Rfl: 0 ergocalciferol, vitamin D2, (VITAMIN D) 50,000 unit capsule Take 1 capsule by mouth once each week. Disp: 24 capsule Rfl: 0 glimepiride (AMARYL) 4 mg tablet TAKE 1 TABLET IN THE MORNING AND HALF A TABLET IN THE EVENING. Disp: 45 tablet Rfl: 2 fexofenadine (DIONY) 180 mg tablet Take 1 tablet by mouth once daily. Disp: 30 tablet Rfl: 11 losartan (COZAAR) 25 mg tablet Take 2 tablets by mouth once daily. Disp: 30 tablet Rfl: 11 atorvastatin (LIPITOR) 40 mg tablet Take 1 tablet by mouth once daily. Disp: 30 tablet Rfl: 11 metFORMIN ER (GLUCOPHAGE XR) 500 mg 24 hr tablet Take 2 tablets by mouth twice daily before meals. Disp: 120 tablet Rfl: 11 blood sugar diagnostic (BLOOD GLUCOSE TEST) test strip Test blood sugar(s) 3 times daily. Dx: diabetes type 2 uncontrolled. Insulin: No Disp: 90 Strip Rfl: 11 gabapentin (NEURONTIN) 600 mg tablet Takes 2 tablets by mouth at bedtime to equal 1200mg Disp: 60 tablet Rfl: 2 Blood Glucose Control, Normal soln Test controls as needed. Dx: Type 2 DM - Uncontrolled E11.65 Disp: 1 Each Rfl: 3 Lancets lancets Test blood sugar(s) 3 times daily. Dx: diabetes mellitus, uncontrolled . Insulin: no Disp: 100 Each Rfl: 11 Blood[place]Glucose Meter [facility] [place] 1 meter Kit. Dx: Diabetes mellitus, type 2 uncontrolled Insulin: No Disp: 1 Each Rfl: 0 Hydrochlorothiazide 12.5 mg capsule Take 1 capsule by mouth once daily. Disp: 30 capsule Rfl: 12 Blood Pressure Cuff - Home Use BLOOD PRESSURE CUFF FOR HOME USE. DX: I10 Disp: 1 Each Rfl: 0 ibuprofen (MOTRIN) 200 mg tablet Take 1-2 tablets by mouth every 6 hours as needed for Pain (Take with food.). Disp: Rfl: 0 ? No current facility-administered medications for this visit. ALLERGIES ALLERGIES Allergen Reactions - Clindamycin Diarrhea, Vomiting - Biaxin [Clarithromy* Diarrhea, Vomiting - Cefdinir Rash, Diarrhea, Itching - Codeine Other: See Comments ? ? syncope - Flonase [Fluticason* Other: See Comments ? ? gave her open sores in nares - Lisinopril Diarrhea, Vomiting, Other: See Comments ? ? fainting - Naprosyn [Naproxen] Other: See Comments ? ? make belike she is drunk - Penicillins Rash - Requip [Ropinirole] GI Upset, Other: See Comments ? ? chest pain - Sulfur Other: See Comments ? ? SORES IN MOUTH ? ? REVIEW OF SYSTEMS General: Gradual weight loss for past couple years, malaise or fevers. Neuro: had stroke in 2010,had carotid endarterectomy, No hemiplegia, paraplegia or quadriplegia. No neurological symptoms or problems. Respiratory: Obstructive Sleep Apnea (on CPAP) Cardiovascular: Hypertension requiring meds GI: GERD, NAFLD per GI notes : No history of UTI in past 6 weeks. No history of renal failure. Not currently on or requiring dialysis. No history of symptoms or problems. [employer]: LMP: 03/10/2017 Endocrine: Diabetes Mellitus poorly controlled, non compliant with Diabetic Neuropathy, nephropathy. Hematology: No history of bleeding or clotting disorder. No history of hematological symptoms or problems. Oncology: No history of CA metastasis, chemo within 30 days, or radiotherapy within 90 days. No history of oncological symptoms or problems. Psych: Depression Skin: Negative for lesions, rash, and itching. ? PHYSICAL EXAM VITALS: BP 150/68 Pulse 66 Temp (Src) 98.1 (Oral) Ht 5' 4 (1.63m) Wt 281 lb 1.6 oz (127.5kg) SpO2 99% LMP 03/10/2017 BMI 48.23 kg/(m2). General: Alert and oriented Skin: Normal color, no rash, no lesions. HEENT: EOM, pupils equal, round and reactive. Cardiovascular: Normal S1 AND S2, no rubs, murmurs or gallops. No JVD. Pulse regular. Lungs: Normal breath sounds, no wheezes or crackles. Abdomen: Soft, non-tender, no rigidity. Extremities: No deformity, no edema or tenderness, no joint swelling or clubbing. Neurological: Normal cognition and motor skills. Pulses: Carotid and radial pulses normal +2. ? ASSESSMENT Ms. Davina Green, 62 old female referred to me for preoperative evaluation. Patient has the following medical comorbidities which might affect the perioperative course: - Type II Diabetes with peripheral neuropathy, nephropathy, poorly controlled Diabetes Mellitus non compliance. Patient is on oral medications. - Hypertension, well controlled. - BP runs high when off losartan and given dependence will have her take losartan on day of surgery ? Patient's RCRI (Revised Cardiac Risk Index: CAD/CHF/Stroke or TIA/SCr>2/DM on Insulin/High Risk Surgery) score is 0 and is at low risk for major adverse cardiac events in the perioperative period. ? Diagnostic tests reviewed for today's visit: Most recent labs ? PLAN/RECOMMENDATIONS CARDIAC: Following additional test(s) requested for risk assessment / evaluation prior to surgery: EKG and echo ?She would need echo before proceeding for surgery because she has an age indeterminate infarct in the inferior leads on EKG which was not present In 2009. We just need to confirm if her systolic fucntion is good PULMONARY: Patients pulmonary status is stable Patient is at increased risk for postoperative pulmonary complications due to her smoking status ? ENDOCRINE: DIABETES: -needs to take her long acting insulin on the darleen of surgery - Patient has been instructed on Preoperative DM medication management. ? VASCULAR/ANTICOAGULATION: VTE prophylaxis as deemed appropriate by the surgical service. ? ? Patient Instructions: As per patient instructions section. General Preoperative/Medication/Fasting Instructions ? I have discussed the above recommendations with the patient in detail, in ivy and lay terms, and provided a written summary of instructions as needed. We have discussed that no surgery is without risk, but that the goal of preoperative assessment is to optimize that risk, and that was clearly understood by the patient. I have given ample opportunity for the patient to ask questions, and answered all questions to their stated satisfaction. ? The following test results were reviewed and were normal or within acceptable limits for the proposed surgery/procedure. -EKG: shows inferior infarct, which was not present in 2010. Review of Systems CONSTITUTIONAL: No fevers, chills night sweats, unintended weight loss CARDIOVASCULAR: No chest pain, dyspnea, palpitations, orthopnea, PND, ankle edema. PULM: No dyspnea, unexplained cough. GI: No dysphagia/odynophagia, problematic reflux, constipation, diarrhea, changes in stool habits, hematochezia, melena. : No new urinary complaints, including dysuria, gross hematuria or pyuria. NEURO: No new balance problems, peripheral weakness/paresthesias or numbness of concern. Physical Exam BP 102/60 (BP Site: Left Arm, BP Position: Sitting, BP Cuff Size: Regular Adult) Pulse 101 Resp 16 Ht 152.4 cm (5') Wt 59 kg (130 lb) SpO2 96% BMI 25.39 kg/m? General appearance: Well appearing, alert, in no acute distress, well nourished. Skin: Skin color, texture, turgor normal, no suspicious rashes or lesions Head: Normocephalic, no masses, lesions, tenderness or abnormalities Eyes: Anicteric sclera. Pupils are equally round and reactive to light. Extraocular movements are intact. Lungs: Lungs clear to auscultation. No wheezing, rhonchi, rales Heart: RRR without murmur, gallop, or rubs. Extremities: No deformities, edema, skin discoloration, clubbing or cyanosis. Good capillary refill. ASSESSMENT/PLAN: 1. Preop examination - ICD9: V72.84, ICD10: Z01.818 (primary diagnosis) On the RCRI she has 2 positive points, if she has cardiac issues it would be 3, which would place her at high risk, although the procedure itself is low risk , hence we need to the risk assessment . Her procedure it self it low risk, but with her smoking status, unclear lung status and unclear cardiac status I am not comfortable in clearing her for surgery without at least an echo. Which is ordered kash She also has to give a chest xray and has to give more lab work which she has not yet. - ECG COMPLETE W INTERPRETATION - ECHO- kash - ECHO - XR CHEST 2V FRONTAL/LAT 2. Cerebrovascular accident (CVA), unspecified mechanism (HCC) - ICD9: 434.91, ICD10: I63.9 3. Essential hypertension, benign - ICD9: 401.1, ICD10: I10 Stable. 4. Diabetic nephropathy with proteinuria (HCC) - ICD9: 250.40, 583.81, ICD10: E11.21 She smokes tobacco a pack a day and continues it Spent more than 40 mins with the patient in dirrect FTF to come to this consclusion It the procedure has to be done on an emergency basis anyway it needs to be and they will proceed. CANDICE STEVEN MD Referring Provider: ALLIE POMPA [[id number]] Allergies As of Date: 11/24/2017 Noted Allergy Reaction LIPITOR (ATORVASTATIN CALCIUM) 02/23/2010 14 - Other: See Comments Comments: fatigue PENICILLINS 01/28/2010 4 - Hives PRAVACHOL (PRAVASTATIN SODIUM) 03/04/2010 5 - Intolerance Comments: Fatigue, loss of appetite. PROZAC (FLUOXETINE HCL) 08/07/2015 1 - Mental Status Change Comments: sleepiness Date Reviewed: 11/24/2017 Reviewed by: Rossy Palacios LPN - Fully Assessed Reason for Visit: Same Day Appointment [255] Cmt: preop clearance with ekg per surgery possibly Monday Reason For Visit History Recorded Primary Visit Diagnosis:Preop examination [Z01.818] Other Visit Diagnoses:Cerebrovascular accident (CVA), unspecified mechanism (HCC) [I63.9] Essential hypertension, benign [I10] Diabetic nephropathy with proteinuria (HCC) [E11.21] History of cerebrovascular accident (CVA) with residual deficit [I69.30] Order(s):ECG COMPLETE W INTERPRETATION [ECG01] Order #: [id number] FUTURE ECHO [[id number]] Order #: [id number]: 1 FUTURE XR CHEST 2V FRONTAL/LAT [[id number]] Order #: [id number] FUTURE Prescriptions as of 11/24/2017 Sig: DOXYCYCLINE MONOHYDRATE 100 M* Take 1 capsule by mouth twice* HYDROCODONE 5 MG-ACETAMINOPHE* Take 1 tablet by mouth every * DICYCLOMINE 20 MG TABLET Take 1 tablet by mouth three * MOMETASONE 0.1 % TOPICAL CREAM Apply 1 application to affect* DOXYCYCLINE MONOHYDRATE 100 M* Take 1 capsule by mouth twice* SERTRALINE 100 MG TABLET Take 1 tablet by mouth once d* INSULIN GLARGINE (U-100) 100 * Inject 14 Units subcutaneousl* INSULIN LISPRO (U-100) 100 UN* Inject 5 Units subcutaneously* PEN NEEDLE, DIABETIC 31 GAUGE* Use one needle with each insu* ALCOHOL SWABS Apply 1 application to affect* BLOOD SUGAR DIAGNOSTIC STRIPS Test blood sugar(s) 4 times d* LANCETS 28 GAUGE Test blood sugar(s) 4 times d* SIMETHICONE 125 MG CHEWABLE T* Take 1 tablet by mouth every * SUMATRIPTAN 50 MG TABLET 50mg by mouth as needed for m* ACETAMINOPHEN ER 650 MG TABLE* Take 2 tablets by mouth twice* NAPROXEN 500 MG TABLET Take 1 tablet by mouth twice * OMEPRAZOLE 20 MG CAPSULE,GRABIEL* Take 1 capsule by mouth daily* DIPHENHYDRAMINE 50 MG CAPSULE Take 1 capsule by mouth every* BUPROPION XL 150 MG TAB Take 1 tablet by mouth once d* LISINOPRIL 10 MG-HYDROCHLOROT* Take 1 tablet by mouth every * AMLODIPINE 10 MG TABLET Take 1 tablet by mouth once d* BUSPIRONE 10 MG TABLET Take 1 tablet by mouth three * Problem List As Of Date 11/24/2017 Noted Resolved Stroke/Cerebrovascular Accident [I63.9] INVALID FOR* Lumbago-Sciatica due to Displacement of Lumbar *INVALID FOR* DDD (Degenerative Disc Disease), Lumbar [M51.36]INVALID FOR* Cannabis Abuse [F12.10] INVALID FOR* Lichen planus [L43.9] INVALID FOR* Lumbar facet arthropathy [M46.96] INVALID FOR* Essential hypertension, benign [I10] INVALID FOR* Nasal obstruction [J34.89] INVALID FOR* Myofascial pain [M79.1] INVALID FOR* Diabetic nephropathy with proteinuria (HCC) [E1*INVALID FOR* Hyperlipidemia with target LDL less than 100 [E*INVALID FOR* History of cerebrovascular accident (CVA) with *INVALID FOR* Urge incontinence of urine [N39.41] INVALID FOR* 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 Gangrene (HCC) [I96] INVALID FOR* More... Encounter Status:Closed by CANDICE STEVEN MD on 11/24/17 PROGRESS Observed: 11/22/2017 Status: COMPLETED Source: [place] 4:31 PM [facility] REPOSITORY HNO ID: [id number] Author: Allie Pompa Service: (none) Author Type: Physician Type: Progress Notes Filed: 11/23/2017 11:31 AM Note Text: ? Allie Pompa DPM Department of Podiatry [address] [facility] [address] Dept: [phone] Dept 11/22/2017 Follow Up Podiatric Office Visit: HPI: Davina Green is a 62 year old female. Patient presents for follow up for gangrene, L 5th toe. Patient complains of pain. Pain is rated at 5/10, and described as sharp. Surgery is scheduled for 11/27/17 at [facility]. Patient has not completed labs and XR as ordered at last office visit. Physical Exam: Constitutional: Pt is a well developed 62 year old female who is alert, oriented and cooperative Eyes: Following during examination. No redness or drainage. Respiratory: RR normal and nonlabored. Even breathing. No evidence of distress or shortness of breath. Psychology: Patient is engaged during conversation. Normal affect and mood. Does not appear depressed or anxious during encounter. Vascular: Dorsalis pedis and posterior tibial pulses faint to left foot but clearly audible Left 5th toe is black with stable, noninfected dry gangrene Capillary Fill time > 5 seconds to digits Skin temperature warm to warm proximal to distal left Hair growth present to digits Neurological: intact light touch/epicritic sensation Dermatological: Stable, noninfected dry gangrene to left 5th toe. There is demarcation to left 5th mtpj Musculoskeletal/Orthopaedic: Patient has pain to palpation of left 5th mtpj Foot type is neutral structurally AJ ROM is full with knee extended and flexed 1st MPJ is full when loaded and no pain or crepitus are noted with ROM. MTJ, STJ are full and free of pain and crepitus. +5/5 muscle strength dorsiflexion, plantarflexion, inversion, eversion b/l Radiographs: patient has yet to get updated xray order ASSESSMENT: (I96) Gangrene (HCC) PLAN: 1. History and physical examination performed. 2. Patient was examined and informed of current findings. 3. I did discuss appearance of left 5th toe. There has been demarcation of left 5th toe to 5th mtpj. Proximal to 5th mtpj appears healthy. I did discuss plan for partial 5th ray amputation. I have spoken with Dr. Velma Jimenez who has performed her lower extremity arteriogram. He has requested waiting at minimum of 1 week until amputation. At this time, she is tentatively scheduled for partial 5th ray amputation on Monday. Discussed procedure in great detail. Her greatest risk is nonhealing of amputation given pad and need for more proximal amputation. She continues to smoke and this certainly is detrimental to her healing. This was clearly discussed with patient. Other risks include nonhealing of surgical incision requiring advanced wound care. She clearly understands possible need for more proximal amputation should this fail to heal. I did discuss role of hyperbarics following amputation. Will discuss referral to wound clinic in event this does not heal in timely fashion. 4. Patient had orders for cbc,esr,crp and xrays scheduled on Monday. She has not yet fullfilled these orders. Recommend she do this 5. Discussed performing as outpatient procedure vs inpatient stay. She would prefer outpatient stay. If condition worsens, she is to present to ed otherwise, will plan to proceed as scheduled for Monday. I have spoken with Dr. Jimenez who agrees Monday will be fine. He would prefer that she remain on plavix if possible. I will discuss with anesthesia. 6. Continue with betadine to left foot 7. Consents have been signed. Allie Pompa DPM CNOV Observed: 11/22/2017 Status: COMPLETED Source: [place] 3:45 PM [facility] REPOSITORY Office Visit (PODIWS) DAVINA GREEN ([id number]) 1955 F Date Time Provider Department 11/22/17 3:45 PM ALLIE POMPA PODMIGUEL During your visit today, we recorded the following information about you: Allie Pompa DPM 11/23/2017 11:31 AM Signed ? Allie Pompa DPM Department of Podiatry [address] [place] [id number] Dept: [phone] Dept 11/22/2017 Follow Up Podiatric Office Visit: HPI: Davina Green is a 62 year old female. Patient presents for follow up for gangrene, L 5th toe. Patient complains of pain. Pain is rated at 5/10, and described as sharp. Surgery is scheduled for 11/27/17 at [facility]. Patient has not completed labs and XR as ordered at last office visit. Physical Exam: Constitutional: Pt is a well developed 62 year old female who is alert, oriented and cooperative Eyes: Following during examination. No redness or drainage. Respiratory: RR normal and nonlabored. Even breathing. No evidence of distress or shortness of breath. Psychology: Patient is engaged during conversation. Normal affect and mood. Does not appear depressed or anxious during encounter. Vascular: Dorsalis pedis and posterior tibial pulses faint to left foot but clearly audible Left 5th toe is black with stable, noninfected dry gangrene Capillary Fill time > 5 seconds to digits Skin temperature warm to warm proximal to distal left Hair growth present to digits Neurological: intact light touch/epicritic sensation Dermatological: Stable, noninfected dry gangrene to left 5th toe. There is demarcation to left 5th mtpj Musculoskeletal/Orthopaedic: Patient has pain to palpation of left 5th mtpj Foot type is neutral structurally AJ ROM is full with knee extended and flexed 1st MPJ is full when loaded and no pain or crepitus are noted with ROM. MTJ, STJ are full and free of pain and crepitus. +5/5 muscle strength dorsiflexion, plantarflexion, inversion, eversion b/l Radiographs: patient has yet to get updated xray order ASSESSMENT: (I96) Gangrene (HCC) PLAN: 1. History and physical examination performed. 2. Patient was examined and informed of current findings. 3. I did discuss appearance of left 5th toe. There has been demarcation of left 5th toe to 5th mtpj. Proximal to 5th mtpj appears healthy. I did discuss plan for partial 5th ray amputation. I have spoken with Dr. Velma Jimenez who has performed her lower extremity arteriogram. He has requested waiting at minimum of 1 week until amputation. At this time, she is tentatively scheduled for partial 5th ray amputation on Monday. Discussed procedure in great detail. Her greatest risk is nonhealing of amputation given pad and need for more proximal amputation. She continues to smoke and this certainly is detrimental to her healing. This was clearly discussed with patient. Other risks include nonhealing of surgical incision requiring advanced wound care. She clearly understands possible need for more proximal amputation should this fail to heal. I did discuss role of hyperbarics following amputation. Will discuss referral to wound clinic in event this does not heal in timely fashion. 4. Patient had orders for cbc,esr,crp and xrays scheduled on Monday. She has not yet fullfilled these orders. Recommend she do this 5. Discussed performing as outpatient procedure vs inpatient stay. She would prefer outpatient stay. If condition worsens, she is to present to ed otherwise, will plan to proceed as scheduled for Monday. I have spoken with Dr. Jimenez who agrees Monday will be fine. He would prefer that she remain on plavix if possible. I will discuss with anesthesia. 6. Continue with betadine to left foot 7. Consents have been signed. Allie Pompa DPM Referring Provider: ALLIE POMPA [[id number]] Allergies As of Date: 11/22/2017 Noted Allergy Reaction LIPITOR (ATORVASTATIN CALCIUM) 02/23/2010 14 - Other: See Comments Comments: fatigue PENICILLINS 01/28/2010 4 - Hives PRAVACHOL (PRAVASTATIN SODIUM) 03/04/2010 5 - Intolerance Comments: Fatigue, loss of appetite. PROZAC (FLUOXETINE HCL) 08/07/2015 1 - Mental Status Change Comments: sleepiness Date Reviewed: 11/22/2017 Reviewed by: Jodie Calderón RN - Fully Assessed Reason for Visit: Recheck [92] Cmt: gangrene, L 5th toe Primary Visit Diagnosis:Post-operative state [Z98.890] Other Visit Diagnosis:Gangrene (HCC) [I96] Order(s):[START ON 11/26/2017] doxycycline monohydrate (MONODOX) 100 mg capsuleTake 1 capsule by mouth twice daily for 7 days.Disp: 14 capsuleRfl: 0 [START ON 11/26/2017] HYDROcodone-acetaminophen (NORCO) 5-325 mg per tabletTake 1 tablet by mouth every 6 hours as needed for up to 7 days. Earliest Fill Date: 11/26/17Disp: 28 tabletRfl: 0 Prescriptions as of 11/22/2017 Sig: DICYCLOMINE 20 MG TABLET Take 1 tablet by mouth three * MOMETASONE 0.1 % TOPICAL CREAM Apply 1 application to affect* DOXYCYCLINE MONOHYDRATE 100 M* Take 1 capsule by mouth twice* SERTRALINE 100 MG TABLET Take 1 tablet by mouth once d* INSULIN GLARGINE (U-100) 100 * Inject 14 Units subcutaneousl* INSULIN LISPRO (U-100) 100 UN* Inject 5 Units subcutaneously* PEN NEEDLE, DIABETIC 31 GAUGE* Use one needle with each insu* ALCOHOL SWABS Apply 1 application to affect* BLOOD SUGAR DIAGNOSTIC STRIPS Test blood sugar(s) 4 times d* LANCETS 28 GAUGE Test blood sugar(s) 4 times d* SIMETHICONE 125 MG CHEWABLE T* Take 1 tablet by mouth every * SUMATRIPTAN 50 MG TABLET 50mg by mouth as needed for m* ACETAMINOPHEN ER 650 MG TABLE* Take 2 tablets by mouth twice* NAPROXEN 500 MG TABLET Take 1 tablet by mouth twice * OMEPRAZOLE 20 MG CAPSULE,GRABIEL* Take 1 capsule by mouth daily* DIPHENHYDRAMINE 50 MG CAPSULE Take 1 capsule by mouth every* BUPROPION XL 150 MG TAB Take 1 tablet by mouth once d* LISINOPRIL 10 MG-HYDROCHLOROT* Take 1 tablet by mouth every * AMLODIPINE 10 MG TABLET Take 1 tablet by mouth once d* BUSPIRONE 10 MG TABLET Take 1 tablet by mouth three * DOXYCYCLINE MONOHYDRATE 100 M* Take 1 capsule by mouth twice* HYDROCODONE 5 MG-ACETAMINOPHE* Take 1 tablet by mouth every * Problem List As Of Date 11/22/2017 Noted Resolved Stroke/Cerebrovascular Accident [I63.9] INVALID FOR* Lumbago-Sciatica due to Displacement of Lumbar *INVALID FOR* DDD (Degenerative Disc Disease), Lumbar [M51.36]INVALID FOR* Cannabis Abuse [F12.10] INVALID FOR* Lichen planus [L43.9] INVALID FOR* Lumbar facet arthropathy [M46.96] INVALID FOR* Essential hypertension, benign [I10] INVALID FOR* Nasal obstruction [J34.89] INVALID FOR* Myofascial pain [M79.1] INVALID FOR* Diabetic nephropathy with proteinuria (HCC) [E1*INVALID FOR* Hyperlipidemia with target LDL less than 100 [E*INVALID FOR* History of cerebrovascular accident (CVA) with *INVALID FOR* Urge incontinence of urine [N39.41] INVALID FOR* 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 Gangrene (HCC) [I96] INVALID FOR* More... Prescriptions ordered this encounter Disp Refills Start End DOXYCYCLINE MONOHYDRATE 100 MG CAPSU* 14 c* 0 11/26/2017 12/03/2017 Route: ORAL Sig: Take 1 capsule by mouth twice daily for 7 days. HYDROCODONE 5 MG-ACETAMINOPHEN 325 M* 28 t* 0 11/26/2017 12/03/2017 Class: Print RX Cmt: s/p amputation of toe Route: ORAL Sig: Take 1 tablet by mouth every 6 hours as needed for up to 7 days. Earliest Fill Date: 11/26/17 Encounter Status:Closed by ALLIE POMPA DPM on 11/23/17 PROGRESS Observed: 11/20/2017 Status: COMPLETED Source: [place] 2:27 PM [facility] O ID: [id number] Author: Allie Pompa Service: (none) Author Type: Physician Type: Progress Notes Filed: 11/20/2017 8:04 PM Note Text: ? Allie Pompa DPM Department of Podiatry [address] [place] [address] Dept: [phone] Dept 11/20/2017 Follow Up Podiatric Office Visit: HPI: Davina Green is a 62 year old female. Patient presents for follow up for gangrene, L 5th toe. Patient denies pain at this time. Patient has been applying betadine and gauze daily to toe. Since last visit with me she has had vascular intervention, Abdominal pelvic left lower extremity arteriogram with left peroneal and tibioperoneal trunk and popliteal and superficial femoral artery tapered 2.5-3 mm 210 mm Divya cross angioplasty, at [facility] on 11/14/17. Patient says that toe is worsening. Patient continues to smoke. Reports blood glucose home reading at 282 mg/dL this AM. Physical Exam: Constitutional: Pt is a well developed 62 year old female who is alert, oriented and cooperative Eyes: Following during examination. No redness or drainage. Respiratory: RR normal and nonlabored. Even breathing. No evidence of distress or shortness of breath. Psychology: Patient is engaged during conversation. Normal affect and mood. Does not appear depressed or anxious during encounter. Vascular: Dorsalis pedis and posterior tibial pulses non palpable to L foot Biphasic dorsalis pedis pulse and monophasic posterior tibial pulse on doppler to L foot Skin temperature warm to cool proximal to distal b/l Hair growth absent to digits Left 5th toe to mtpj has dry gangrene with no drainage. Neurological: diminished light touch/epicritic sensation Dermatological: Dry gangrene to L 5th toe. No erythema, no drainage. Musculoskeletal/Orthopaedic: Patient has pain to palpation of left 5th toe Foot type is neutral structurally AJ ROM is full with knee extended and flexed 1st MPJ is full when loaded and no pain or crepitus are noted with ROM. MTJ, STJ are full and free of pain and crepitus. +5/5 muscle strength dorsiflexion, plantarflexion, inversion, eversion b/l ASSESSMENT: (I96) Gangrene (HCC) (primary encounter diagnosis) PLAN: Discussed the appearance of left 5th toe. It is gangranous with no drainage or acute signs of infection. She is s/p vascular intervention. I have spoken with vascular surgery who recommends monitoring for one week and proceeding with amputation. Discussed L 5th ray amputation. Need to monitor closely for any further demarcation. Due to extent of gangrene to level of mtpj, she will likely require partial 5th ray amp to achieve closure. Major risks discussed with partial 5th ray amputation is ability to heal. Certainly with her vascular status and continued use of tobacco pose risk of failure to heal and potential need for further amputation. Other risks include slow wound healing resulting in infection and more proximal amputation or need for advanced wound care. Pain, swelling, bleeding and hematoma are other risks. Currently, L 5th toe appears stable. Patient and patient's daughter aware that this is not viable tissue/toe and understand need for amputation. Continue to apply betadine daily. Patient understands importance of quitting smoking. Patient understands risk that amputation may not heal. The patient has therefore been indicated for surgical intervention consisting of L 5th ray amputation. We discussed the rationale for, risks of, and prolonged recovery associated with this surgery. The patient expressed understanding of all issues including risks of infection, nerve damage, wound dehiscence, incomplete relief of pain, inability to return to the patient's desired level of function, generalized dissatisfaction with the surgical procedure and outcome, deep vein thrombosis (DVT), pulmonary embolus, (PE), cardiac complications and . The patient was counseled that no weight will be allowed on the surgical leg for approximately 3-4 weeks or until the patient is instructed that it is safe to initiate weightbearing. Will have patient return to clinic this week to check status. If symptoms worsen, present to ED immediately. The documentation for this note was completed by Jazmine Bateman Ma acting as scribe for Allie Pompa DPM. November 20, 2017 2:27 PM. I agree with the Chief Complaint, ROS, and Past Histories independently gathered by the clinical retail support associate and the remaining scribed note accurately describes my personal service to the patient. Allie Pompa DPM CNOV Observed: 11/20/2017 Status: COMPLETED Source: [place] 2:[address] [facility] REPOSITORY Office Visit (PODIWS) DAVINA GREEN ([id number]) 1955 F Date Time Provider Department 11/20/17 2:10 PM ALLIE POMPA During your visit today, we recorded the following information about you: Allie Pompa DPM 11/20/2017 8:04 PM Signed ? Allie Pompa DPM Department of Podiatry [address] [facility] [address] Dept: [phone] Dept 11/20/2017 Follow Up Podiatric Office Visit: HPI: Davina Green is a 62 year old female. Patient presents for follow up for gangrene, L 5th toe. Patient denies pain at this time. Patient has been applying betadine and gauze daily to toe. Since last visit with me she has had vascular intervention, Abdominal pelvic left lower extremity arteriogram with left peroneal and tibioperoneal trunk and popliteal and superficial femoral artery tapered 2.5-3 mm 210 mm Divya cross angioplasty, at [facility] on 11/14/17. Patient says that toe is worsening. Patient continues to smoke. Reports blood glucose home reading at 282 mg/dL this AM. Physical Exam: Constitutional: Pt is a well developed 62 year old female who is alert, oriented and cooperative Eyes: Following during examination. No redness or drainage. Respiratory: RR normal and nonlabored. Even breathing. No evidence of distress or shortness of breath. Psychology: Patient is engaged during conversation. Normal affect and mood. Does not appear depressed or anxious during encounter. Vascular: Dorsalis pedis and posterior tibial pulses non palpable to L foot Biphasic dorsalis pedis pulse and monophasic posterior tibial pulse on doppler to L foot Skin temperature warm to cool proximal to distal b/l Hair growth absent to digits Left 5th toe to mtpj has dry gangrene with no drainage. Neurological: diminished light touch/epicritic sensation Dermatological: Dry gangrene to L 5th toe. No erythema, no drainage. Musculoskeletal/Orthopaedic: Patient has pain to palpation of left 5th toe Foot type is neutral structurally AJ ROM is full with knee extended and flexed 1st MPJ is full when loaded and no pain or crepitus are noted with ROM. MTJ, STJ are full and free of pain and crepitus. +5/5 muscle strength dorsiflexion, plantarflexion, inversion, eversion b/l ASSESSMENT: (I96) Gangrene (HCC) (primary encounter diagnosis) PLAN: Discussed the appearance of left 5th toe. It is gangranous with no drainage or acute signs of infection. She is s/p vascular intervention. I have spoken with vascular surgery who recommends monitoring for one week and proceeding with amputation. Discussed L 5th ray amputation. Need to monitor closely for any further demarcation. Due to extent of gangrene to level of mtpj, she will likely require partial 5th ray amp to achieve closure. Major risks discussed with partial 5th ray amputation is ability to heal. Certainly with her vascular status and continued use of tobacco pose risk of failure to heal and potential need for further amputation. Other risks include slow wound healing resulting in infection and more proximal amputation or need for advanced wound care. Pain, swelling, bleeding and hematoma are other risks. Currently, L 5th toe appears stable. Patient and patient's daughter aware that this is not viable tissue/toe and understand need for amputation. Continue to apply betadine daily. Patient understands importance of quitting smoking. Patient understands risk that amputation may not heal. The patient has therefore been indicated for surgical intervention consisting of L 5th ray amputation. We discussed the rationale for, risks of, and prolonged recovery associated with this surgery. The patient expressed understanding of all issues including risks of infection, nerve damage, wound dehiscence, incomplete relief of pain, inability to return to the patient's desired level of function, generalized dissatisfaction with the surgical procedure and outcome, deep vein thrombosis (DVT), pulmonary embolus, (PE), cardiac complications and . The patient was counseled that no weight will be allowed on the surgical leg for approximately 3-4 weeks or until the patient is instructed that it is safe to initiate weightbearing. Will have patient return to clinic this week to check status. If symptoms worsen, present to ED immediately. The documentation for this note was completed by Jazmine Bateman Ma acting as scribe for Allie Pompa DPM. November 20, 2017 2:27 PM. I agree with the Chief Complaint, ROS, and Past Histories independently gathered by the clinical retail support associate and the remaining scribed note accurately describes my personal service to the patient. Allie Pompa DPM Referring Provider: ALLIE POMPA [[id number]] Allergies As of Date: 11/20/2017 Noted Allergy Reaction LIPITOR (ATORVASTATIN CALCIUM) 02/23/2010 14 - Other: See Comments Comments: fatigue PENICILLINS 01/28/2010 4 - Hives PRAVACHOL (PRAVASTATIN SODIUM) 03/04/2010 5 - Intolerance Comments: Fatigue, loss of appetite. PROZAC (FLUOXETINE HCL) 08/07/2015 1 - Mental Status Change Comments: sleepiness Date Reviewed: 11/20/2017 Reviewed by: Jazmine Bateman Ma - Fully Assessed Reason for Visit: Pre-Op Exam [87] Primary Visit Diagnosis:Gangrene (HCC) [I96] Order(s):SED RATE WESTERGREN [SQWSR] Order #: [id number] FUTURE C-REACTIVE PROTEIN (CRP) [SQCRP] Order #: [id number] FUTURE CBC + DIFF [SQCBCDIF] Order #: [id number] FUTURE XR FOOT GENERAL 3V AP/LAT/OBL LT [[id number]] Order #: [id number] FUTURE doxycycline monohydrate (MONODOX) 100 mg capsuleTake 1 capsule by mouth twice daily for 7 days.Disp: 14 capsuleRfl: 0 Prescriptions as of 11/20/2017 Sig: DOXYCYCLINE MONOHYDRATE 100 M* Take 1 capsule by mouth twice* SERTRALINE 100 MG TABLET Take 1 tablet by mouth once d* INSULIN GLARGINE (U-100) 100 * Inject 14 Units subcutaneousl* INSULIN LISPRO (U-100) 100 UN* Inject 5 Units subcutaneously* PEN NEEDLE, DIABETIC 31 GAUGE* Use one needle with each insu* ALCOHOL SWABS Apply 1 application to affect* BLOOD SUGAR DIAGNOSTIC STRIPS Test blood sugar(s) 4 times d* LANCETS 28 GAUGE Test blood sugar(s) 4 times d* SIMETHICONE 125 MG CHEWABLE T* Take 1 tablet by mouth every * SUMATRIPTAN 50 MG TABLET 50mg by mouth as needed for m* ACETAMINOPHEN ER 650 MG TABLE* Take 2 tablets by mouth twice* NAPROXEN 500 MG TABLET Take 1 tablet by mouth twice * OMEPRAZOLE 20 MG CAPSULE,GRABIEL* Take 1 capsule by mouth daily* DIPHENHYDRAMINE 50 MG CAPSULE Take 1 capsule by mouth every* BUPROPION XL 150 MG TAB Take 1 tablet by mouth once d* X MOMETASONE 0.1 % TOPICAL CREAM Apply 1 application to affect* X DICYCLOMINE 20 MG TABLET Take 1 tablet by mouth three * LISINOPRIL 10 MG-HYDROCHLOROT* Take 1 tablet by mouth every * AMLODIPINE 10 MG TABLET Take 1 tablet by mouth once d* BUSPIRONE 10 MG TABLET Take 1 tablet by mouth three * Problem List As Of Date 11/20/2017 Noted Resolved Stroke/Cerebrovascular Accident [I63.9] INVALID FOR* Lumbago-Sciatica due to Displacement of Lumbar *INVALID FOR* DDD (Degenerative Disc Disease), Lumbar [M51.36]INVALID FOR* Cannabis Abuse [F12.10] INVALID FOR* Lichen planus [L43.9] INVALID FOR* Lumbar facet arthropathy [M46.96] INVALID FOR* Essential hypertension, benign [I10] INVALID FOR* Nasal obstruction [J34.89] INVALID FOR* Myofascial pain [M79.1] INVALID FOR* Diabetic nephropathy with proteinuria (HCC) [E1*INVALID FOR* Hyperlipidemia with target LDL less than 100 [E*INVALID FOR* History of cerebrovascular accident (CVA) with *INVALID FOR* Urge incontinence of urine [N39.41] INVALID FOR* 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 Gangrene (HCC) [I96] INVALID FOR* More... Prescriptions ordered this encounter Disp Refills Start End DOXYCYCLINE MONOHYDRATE 100 MG CAPSU* 14 c* 0 11/20/2017 11/27/2017 Route: ORAL Sig: Take 1 capsule by mouth twice daily for 7 days. Encounter Status:Closed by ALLIE POMPA DPM on 11/20/17 [place] Observed: 11/20/2017 Status: COMPLETED Source: [place] 12:00 AM [facility] REPOSITORY Telephone (PODIWS) PETERDAVINA KAHN ([id number]) 1955 F Date Time Provider Department 11/20/17 ALLIE POMPA During your visit today, we recorded the following information about you: Jazmine Bateman Ma 11/20/2017 3:34 PM Signed Patient scheduled for L 5th ray partial amputation at [facility] on 11/27/17. Patient had to leave before mona op information could be discussed at visit today. Patient will be given information and packet at OV on 11/22/17. Surgical Request filed. Jazmine Pompa DPM 11/20/2017 3:40 PM Signed Thank you NOA Hernandez Ma 11/24/2017 9:50 AM Signed Page from [facility] calling to report that patient she has been unsuccessful in reaching patient to schedule [facility]. States that she has called [facility] and left message as well as contacted her EC and asked EC to have patient contact. Reports that EC verbalized that they would relay message and have patient contact. She has not yet. After speaking with Page, I attempted to contact patient, no answer and voicemail not set up. Attempted to contact EC, no answer. Jazmine Pompa DPM 11/24/2017 11:59 AM Signed I also just tried to contact Davina and her daughter. No answer to both numbers. Left message for her daughter to get in touch. If she does not return phone call, then she will have to reschedule NOA Hernandez Ma 11/24/2017 2:32 PM Signed Spoke with patient and informed that PACC must be completed prior to surgery. Nothing available today. Dr. Pompa informed, will attempt to add patient on OR at [facility] on Monday11/27/17. Phone call to PCPs office to inquire if patient can be seen today for updated HANDP. Awaiting response from PCP office. If patient can be seen today by PCP; will need to notify patient of appointment time and inform her that she needs to have labs drawn today. He has neglected to do so as of this time. Will also need to complete [facility] scheduling forms and call OR to schedule and fax information to them. Status of OR pending availability to see patient Jazmine Bateman Ma 11/24/2017 2:32 PM Signed Spoke with patient. Patient informed to be at Dr. Steven's office at 1500 today. Patient informed that it is necessary she have labs done, she has not completed them despite being advised twice this week. Allie Pompa DPM 11/24/2017 2:34 PM Signed If patient does not get this done, she can present to emergency room and be admitted from ed. It is such a shame that this patient family is making this more difficult than it needed to be NOA Hernandez RN 11/24/2017 2:43 PM Signed Surgery for [facility] scheduled as follows: Patient scheduled for L 5th metatarsal amputation on 11/27/17, OR scheduling form faxed to [phone] Consent, Periop, and PAT orders faxed to [facility] at [phone] Patient scheduled for updated HANDP with Dr. Steven at 1500 today. Will need to fax note and additional testing (if any) to [facility] Referral placed in Epic: Yes She was notified of all dates and times. Patient instructed to call our office immediately with any concerns or questions. [facility] booklet, chlorhexidine soap, and instructions given. Jazmine Bateman Ma 11/24/2017 4:40 PM Signed TC from [place] in Dr. Steven's office. Patient is NOT cleared for scheduled surgery at this time. [facility] OR notified and surgery cancelled. Page to Dr. Pompa to inform as well. Jazmine Pompa DPM 11/28/2017 4:17 PM Signed Patient seeing Dr. Jimenez and will wait for echo. Will need patient to come in within one week to evaluate toe NOA Hernandez Ma 12/04/2017 4:18 PM Signed Phone call to patient to inquire status. Patient states that she FTC appointment with Dr. Jimenez. States that she was under the impression Dr. Steven would be doing the echo and she didn't understand why I need to schedule. Explained in detail the reason for the Echo being ordered. Patient informed that Dr. Steven does not need to be present for the Echo, that it is done in Cardiology and Dr. Steven will receive the results. Patient verbalized understanding. Patient states that she is only able to find transportation in afternoons. Patient scheduled for Echo 12/12/17 at 1330. Patient states that her toe looks the same, has not gotten worse, but not better. Explained to patient the importance of keeping and coming to scheduled appointments. Dr. Pompa, OK to schedule patient next Monday after her echo? Jazmine Pompa DPM 12/04/2017 4:27 PM Signed Yes, that is fine NOA Hernandez Ma 12/05/2017 8:27 AM Signed Patient scheduled for OV on 12/12/[address] Pompa after Echo. Appt scheduled at 1525; patient can come after echo. Will need to notify patient. Jazmine Bateman Ma 12/12/2017 8:29 AM Signed Patient currently admitted at [facility]. Jazmine Bateman Ma Allergies As of Date: 11/20/2017 Noted Allergy Reaction LIPITOR (ATORVASTATIN CALCIUM) 02/23/2010 14 - Other: See Comments Comments: fatigue PENICILLINS 01/28/2010 4 - Hives PRAVACHOL (PRAVASTATIN SODIUM) 03/04/2010 5 - Intolerance Comments: Fatigue, loss of appetite. PROZAC (FLUOXETINE HCL) 08/07/2015 1 - Mental Status Change Comments: sleepiness Date Reviewed: 11/20/2017 Reviewed by: Jazmine Bateman Ma - Fully Assessed Reason for Visit: Schedule Surgery [1330] Primary Visit Diagnosis:Gangrene (HCC) [I96] Other Visit Diagnosis:Pre-op exam [Z01.818] Order(s):CBC + DIFF [SQCBCDIF] Order #: [id number] FUTURE BASIC METABOLIC PNL [SQBMP] Order #: [id number] FUTURE Prescriptions as of 11/20/2017 Sig: DICYCLOMINE 20 MG TABLET Take 1 tablet by mouth three * MOMETASONE 0.1 % TOPICAL CREAM Apply 1 application to affect* DOXYCYCLINE MONOHYDRATE 100 M* Take 1 capsule by mouth twice* SERTRALINE 100 MG TABLET Take 1 tablet by mouth once d* INSULIN GLARGINE (U-100) 100 * Inject 14 Units subcutaneousl* INSULIN LISPRO (U-100) 100 UN* Inject 5 Units subcutaneously* PEN NEEDLE, DIABETIC 31 GAUGE* Use one needle with each insu* ALCOHOL SWABS Apply 1 application to affect* BLOOD SUGAR DIAGNOSTIC STRIPS Test blood sugar(s) 4 times d* LANCETS 28 GAUGE Test blood sugar(s) 4 times d* SIMETHICONE 125 MG CHEWABLE T* Take 1 tablet by mouth every * SUMATRIPTAN 50 MG TABLET 50mg by mouth as needed for m* ACETAMINOPHEN ER 650 MG TABLE* Take 2 tablets by mouth twice* NAPROXEN 500 MG TABLET Take 1 tablet by mouth twice * OMEPRAZOLE 20 MG CAPSULE,GRABIEL* Take 1 capsule by mouth daily* DIPHENHYDRAMINE 50 MG CAPSULE Take 1 capsule by mouth every* BUPROPION XL 150 MG TAB Take 1 tablet by mouth once d* LISINOPRIL 10 MG-HYDROCHLOROT* Take 1 tablet by mouth every * AMLODIPINE 10 MG TABLET Take 1 tablet by mouth once d* BUSPIRONE 10 MG TABLET Take 1 tablet by mouth three * Problem List As Of Date 11/20/2017 Noted Resolved Stroke/Cerebrovascular Accident [I63.9] INVALID FOR* Lumbago-Sciatica due to Displacement of Lumbar *INVALID FOR* DDD (Degenerative Disc Disease), Lumbar [M51.36]INVALID FOR* Cannabis Abuse [F12.10] INVALID FOR* Lichen planus [L43.9] INVALID FOR* Lumbar facet arthropathy [M46.96] INVALID FOR* Essential hypertension, benign [I10] INVALID FOR* Nasal obstruction [J34.89] INVALID FOR* Myofascial pain [M79.1] INVALID FOR* Diabetic nephropathy with proteinuria (HCC) [E1*INVALID FOR* Hyperlipidemia with target LDL less than 100 [E*INVALID FOR* History of cerebrovascular accident (CVA) with *INVALID FOR* Urge incontinence of urine [N39.41] INVALID FOR* 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 Gangrene (HCC) [I96] INVALID FOR* More... Letter Text Podiatric Medicine and Surgery Allie Pompa DPM [facility] [address] [place] [address] SURGERY CONFIRMATION FORM Your surgery is scheduled for: 11/27/2017 at the [facility]. You will be contacted by 3pm the day prior (Monday) to your surgery to review pre-operative instructions and confirm your arrival time. If you have not received a telephone call by 3pm, please contact [facility] at [phone]. Use Entrance A near the back of the hospital, where there is a covered patient drop off area. Take the elevator to the 1st floor and report to the Surgery Information Desk for check in. You will need to make sure that you have a responsible adult to drive you home the day of surgery. Plan to rest at home, same day surgery does not mean same day recovery. Proper rest helps you recover sooner. You will also need to bring a copy of your living will and/or health care power of deputy attorney general, provided you have one. Hold all NSAIDS 7 days prior to surgical date. Hold all anticoagulants 5 days prior to surgical date, with permission of prescribing physician. The night before: Nothing to eat or drink after midnight. The day of: Take prescribed medications as approved by physician with small sips of water. Please do not wear any forms of jewelry, make up, or nail mongolian/toenail mongolian. Make sure to leave all valuables at home. Your post-op appointments with Dr. Pompa are scheduled as follows: Monday, 12/01 at 1:40pm; 12/08 at 1:40pm, and 12/15 at 11:10am You will receive a phone call to schedule an appointment in Pre-Anesthesia Consultation Clinic prior to your surgical date. This appointment will help determine if you have any risk factors for undergoing anesthesia. If you have any further questions, please do not hesitate to contact our office. 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 61-year-old female was taken to the special procedures lab. Throughout the procedure she received a total of 100 mcg fentanyl and 1 mg Versed is intravenous sedation. Bilateral groins were sterilely prepped and draped. It is of additional note that during the procedure she received a total of 20 mg of hydralazine in aliquots and 50 mg of labetalol and aliquots for hypertension control. The patient did not take her routine hypertensive medications this morning Under ultrasound guidance the right common femoral artery was identified. 2% lidocaine was instilled as a local anesthetic. Throughout the procedure total 10 cc was used. Micropuncture needle was inserted. Micropuncture wire inserted. 6 Omani short sheath dilator was inserted using 035 Glidewire 5 Omani universal flush catheter placed into the mid infrarenal abdominal aorta. Using Visipaque contrast the rate of 15 cc a second for 15 cc an AP aortogram was obtained. Then using Glidewire of the universal flush catheter was placed into the left common femoral artery. Static views of the left thigh were obtained. Then I switched out for 035 Quick cross catheter and using the Glidewire Access the left superficial femoral artery was then tediously able to advance through areas of high-grade stenosis within the left superficial femoral artery is able to advance the Quick cross in the popliteal. Images of the left lower extremity demonstrated a complete occlusion of the left tibial and posterior tibial. There was an 8 cm long occlusion of left peroneal. Using the Glidewire was able to get to the peroneal occlusion. Then I used a 018 connect wire which was able to advance the Quick cross catheter then I switched to a 014 command wire and was finally able to get into the peroneal artery distally to the level of the ankle. Place the catheter that position was able to get images. Demonstrated true lumen. It is of note that prior to doing all of that left lower extremity work I did exchange out over an 035 Magic wire and removed the 5 Omani sheath and placed a 7 Omani destination sheath. And it was at that time that the patient received 7000 units of heparin and based upon ACT measurements in aliquots she received additional 1000 and then 1000 units of heparin. Having now achieved access past all areas of occlusion the vessels were measured they were noted be very fragile during the manipulations vessels measured out the SFA to be only 3 mm so I used a tapered 2.5-3 mm 210 mm long Divya cross balloon and perform balloon angioplasty of the entire length of the left peroneal of the left tibioperoneal trunk left popliteal and left SFA. This was performed up to 14 mary ann of pressure and each that was held for 3 minutes. At the completion there was still relative stenosis at Noam's canal. I retreated that area with the Divya cross balloon. Final images now demonstrated dramatic improvement with in-line flow. She tolerated procedure well devices were removed a minx device was deployed in the right groin there appear to be good hemostasis pressure was additionally held she was taken to the recovery area in satisfactory condition left foot now appear to be pink there was a much improved Doppler signal overlying the distal left peroneal with collateral flow noted to the dorsalis pedis. Images demonstrate calcification of the abdominal aorta there is 50% stenosis of the proximal left common iliac a 3 similar long area of 50% stenosis of the left external iliac the bilateral common femorals and profunda femoris are patent. The left superficial femoral artery has 2 areas of high-grade stenosis 1 at Noam's canal being about 80% stenosis and one at the superior popliteal about 90% stenosis. The left anterior tibial is patent for about 10 cm then it occludes. The left posterior tibial is completely occluded. Left peroneal is occluded for approximately 8 cm and then it re-appears. There is some collateral flow then down at the ankle. Subsequent to the angioplasty now there is straight in-line flow through the superficial femoral artery popliteal tibioperoneal trunk and peroneal arteries. There is still moderate irregular disease at Noam's canal. Because of the very diminutive size of her vessels I did not feel that we treating that area any further at this time would be beneficial. She had a very limited area of dissection that is not flow limiting. Her foot clinically is improved. Total contrast used was 85 cc I have been able to discuss the this intervention with Dr. Allie Pompa who will also be following up with her. Velma Jimenez M.D., F.A.C.S. Type of Anesthesia:: IV Sedation 11/14/[id number] <Electronically signed by Velma Jimenez MD> Date Velma Jimenez MD CC: Ivy Jimenez III, MD; Velma Jimenez MD Signed ACT ACTIVATED CLOTTING Collected: 11/14/2017 Status: F Source: [place] TIME 10:21 AM [facility] REPOSITORY TYPE CODE TESTS RESULT OUT OF RANGE REFERENCE UNITS LAB L9100.0100 74-137 sec High ACTk CLOT 230 TIME Performed By: #### L9100.0100 #### [facility] Point of Care [address] [place] [address] ACT ACTIVATED CLOTTING Collected: 11/14/2017 Status: F Source: [place] TIME 9:56 AM [facility] REPOSITORY TYPE CODE TESTS RESULT OUT OF RANGE REFERENCE UNITS LAB L9100.0100 74-137 sec High ACTk CLOT 235 TIME Performed By: #### L9100.0100 #### [facility] Point of Care [address] [place] [address] ACT ACTIVATED CLOTTING Collected: 11/14/2017 Status: F Source: [place] TIME 9:36 AM [facility] REPOSITORY TYPE CODE TESTS RESULT OUT OF RANGE REFERENCE UNITS LAB L9100.0100 74-137 sec High ACTk CLOT 224 TIME Performed By: #### L9100.0100 #### [facility] Point of Care [address] [place], [place] [address] ACT ACTIVATED CLOTTING Collected: 11/14/2017 Status: F Source: [place] TIME 8:54 AM [facility] REPOSITORY TYPE CODE TESTS RESULT OUT OF RANGE REFERENCE UNITS LAB L9100.0100 74-137 sec Normal ACTk CLOT 136 TIME Performed By: #### L9100.0100 #### [facility] Point of Care [address] [place], [place] [id number] CBC-COMPLETE BLOOD CNT Collected: 11/14/2017 Status: F Source: [place] NO DIFF 7:32 AM [facility] REPOSITORY TYPE CODE TESTS RESULT OUT OF RANGE REFERENCE UNITS LAB L100.1000 4.4-11.0 K/mm3 High WBC 11.4 LAB L100.1200 4.2-5.4 M/mm3 Normal RBC 4.81 LAB L100.1300 12.0-15.0 g/dl Normal HGB 14.4 LAB L100.1400 37-47 % Normal HCT 41.5 LAB L100.1500 81-99 fL Normal MCV 86.3 LAB L100.1600 27.0-32.0 pg Normal MCH 29.9 LAB L100.1700 32-36 g/gl Normal MCHC 34.7 LAB L100.1810 11.6-14.6 % Normal RDW CV 13.8 LAB L100.1820 35.1-43.9 fl Normal RDW SD 43.0 LAB L100.1900 150-450 K/mm3 Normal PLT 434 LAB L100.2000 6.2-12.0 fl Normal MPV 9.4 Performed By: #### L100.0500 #### [facility] [address] [place], [place], [id number] BASIC METABOLIC Collected: 11/14/2017 Status: F Source: [place] PROFILE (BMP) 7:32 AM [facility] REPOSITORY TYPE CODE TESTS RESULT OUT OF RANGE REFERENCE UNITS LAB L501.0100 74-106 mg/dL High GLU 223 Result Comment: Glucose result greater than or equal to 200 mg/dL suggests DIABETES MELLITUS per A.D.A. criteria. Please note revised GLUCOSE reference range effective 2017. LAB L501.1000 7-18 mg/dL Normal BUN 18 LAB L501.1100 0.55-1.02 mg/dL High CREAT,SERUM 1.24 Result Comment: The validity of the calculated GFR AND GFRAA in patients over 70 years has not been determined. Clinical correlation is essential. LAB L501.1110 >60 mL/min Low EST GFR 47 Result Comment: Non- GFR Calc LAB L501.1115 >60 mL/min Low EST GFR - AA 56 Result Comment: GFR Calc LAB L501.1255 ml/min Normal Estimated CRCL 34.22 LAB L501.1300 10-20 RATIO Normal BUN/CRE 14.5 LAB L501.2200 8.5-10 mg/dL Normal .1 CA 8.8 LAB L501.5300 136-14 mmol/L Normal 5 NA 138 LAB L501.5600 3.5-5. mmol/L Normal 1 K 3.8 Result Comment: Slight Hemolysis, Result may be falsely increased. LAB L501.5900 98-107 mmol/L Normal CL 103 LAB L501.6100 21.0-32.0 mmol/L Normal CO2 25.0 LAB L501.6200 5-15 Normal GAP 10 Performed By: #### L500.2500 #### [facility] [place], [address] [facility] Observed: 11/14/2017 Status: COMPLETED Source: [place] 12:00 AM [facility] REPOSITORY Telephone (PODIWS) DAVINA GREEN ([id number]) 1955 F Date Time Provider Department 11/14/17 ALLIE POMPAS During your visit today, we recorded the following information about you: Jodie Calderón RN 11/14/2017 3:53 PM Signed Phone call to patient to schedule follow up this week with Dr. Pompa to plan for amputation of R 5th toe. Pt asked that this nurse call her back tomorrow because she just got home from the hospital and wants to go to sleep. Will call pt tomorrow to schedule follow up. Jodie Calderón RN 11/15/2017 2:08 PM Signed Attempted to contact pt to schedule appointment but she did not answer and her VM box is not set up. Jodie Calderón RN 2017 8:36 AM Signed Attempted to contact pt. No answer. VM box not set up. Allie Pompa DPM 2017 9:09 AM Signed Attempted to contact patient to discuss her 5th toe and to set up an appointment as she has gangrene and recently underwent vascular intervention. No answer. Voice message not set up. Will try to contact her daughter Allie NOA Pompa RN 2017 9:49 AM Signed Patient returned phone call. Offered to schedule patient an appointment for tomorrow to follow up and schedule surgery but she declined stating she did not have transportation and asked for an appointment on Monday, 11/20 instead. Patient scheduled at 2:10 on 10/20/17. Inquired pt about status of her toe, she states it is about the same, no worse. Denies any pain. Allergies As of Date: 11/14/2017 Noted Allergy Reaction LIPITOR (ATORVASTATIN CALCIUM) 02/23/2010 14 - Other: See Comments Comments: fatigue PENICILLINS 01/28/2010 4 - Hives PRAVACHOL (PRAVASTATIN SODIUM) 03/04/2010 5 - Intolerance Comments: Fatigue, loss of appetite. PROZAC (FLUOXETINE HCL) 08/07/2015 1 - Mental Status Change Comments: sleepiness Date Reviewed: 11/11/2017 Reviewed by: Heather Vargas (Rn) Maikol - Fully Assessed Reason for Visit: Follow up Appointment [Other] Prescriptions as of 11/14/2017 Sig: INSULIN GLARGINE (U-100) 100 * Inject 14 Units subcutaneousl* INSULIN LISPRO (U-100) 100 UN* Inject 5 Units subcutaneously* PEN NEEDLE, DIABETIC 31 GAUGE* Use one needle with each insu* ALCOHOL SWABS Apply 1 application to affect* BLOOD SUGAR DIAGNOSTIC STRIPS Test blood sugar(s) 4 times d* LANCETS 28 GAUGE Test blood sugar(s) 4 times d* SIMETHICONE 125 MG CHEWABLE T* Take 1 tablet by mouth every * SUMATRIPTAN 50 MG TABLET 50mg by mouth as needed for m* ACETAMINOPHEN ER 650 MG TABLE* Take 2 tablets by mouth twice* NAPROXEN 500 MG TABLET Take 1 tablet by mouth twice * OMEPRAZOLE 20 MG CAPSULE,GRABIEL* Take 1 capsule by mouth daily* DIPHENHYDRAMINE 50 MG CAPSULE Take 1 capsule by mouth every* BUPROPION XL 150 MG TAB Take 1 tablet by mouth once d* MOMETASONE 0.1 % TOPICAL CREAM Apply 1 application to affect* DICYCLOMINE 20 MG TABLET Take 1 tablet by mouth three * LISINOPRIL 10 MG-HYDROCHLOROT* Take 1 tablet by mouth every * AMLODIPINE 10 MG TABLET Take 1 tablet by mouth once d* X SERTRALINE 100 MG TABLET Take 1 tablet by mouth once d* BUSPIRONE 10 MG TABLET Take 1 tablet by mouth three * Problem List As Of Date 11/14/2017 Noted Resolved Stroke/Cerebrovascular Accident [I63.9] INVALID FOR* Lumbago-Sciatica due to Displacement of Lumbar *INVALID FOR* DDD (Degenerative Disc Disease), Lumbar [M51.36]INVALID FOR* Cannabis Abuse [F12.10] INVALID FOR* Lichen planus [L43.9] INVALID FOR* Lumbar facet arthropathy [M46.96] INVALID FOR* Essential hypertension, benign [I10] INVALID FOR* Nasal obstruction [J34.89] INVALID FOR* Myofascial pain [M79.1] INVALID FOR* Diabetic nephropathy with proteinuria (HCC) [E1*INVALID FOR* Hyperlipidemia with target LDL less than 100 [E*INVALID FOR* History of cerebrovascular accident (CVA) with *INVALID FOR* Urge incontinence of urine [N39.41] INVALID FOR* 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 Encounter Status:Closed by ALLIE POMPA DPM on 11/16/17 PROGRESS Observed: 11/10/2017 Status: COMPLETED Source: [place] 5:[address] [facility] REPOSITORY HNO ID: [id number] Author: Anthony Renee (Valeri) Akbar Service: (none) Author Type: Nurse Practitioner Type: Progress Notes Filed: 11/10/2017 6:00 PM Note Text: Chief Complaint Patient presents with: Diabetic Teaching: insulin start HPI Davina Green is a 61 year old female who presents here today for Above Complaints. Patient of Dr. Ivy Jimenez III, here with Uncontrolled T2DM, Gangrene left foot, scheduled for surgery for amputation, yet to be determined how extensive, toe, foot or lower leg. Referred by Dr. Velma Jimenez's office for urgent visit and help with glycemic control, insulin start. Patient is brought in by daughter. Present for part of the visit. Patient reports taking no DM medications thought Actos and Glimepiride were on her medication list. She does report and confirmed taking all her other medications. She does not know her BS readings, not testing, no glucometer. She had PAT labs done at [facility], and reported BS over 400. Admits to nocturia 3 x /night, + polydipsia. Never used insulin. Reports eats 3 meals/day. The ROS is otherwise negative. Past medical history, appointments, medications, allergies reviewed. Patient Allergies ALLERGIES Allergen Reactions - Lipitor [Atorvastat* Other: See Comments fatigue - Penicillins Hives - Pravachol [Pravasta* Intolerance Fatigue, loss of appetite. - Prozac [Fluoxetine * Mental Status Change sleepiness Current Medications Current Outpatient Prescriptions on File Prior to Visit: Simethicone (GAS RELIEF) 125 mg chewable tablet Take 1 tablet by mouth every 6 hours as needed. SUMAtriptan (IMITREX) 50 mg tablet 50mg by mouth as needed for migraine headache; may repeat every 2 hrs as needed for migraine(max 4/day and 9/mo) acetaminophen (TYLENOL ARTHRITIS PAIN) 650 mg CR tablet Take 2 tablets by mouth twice daily as needed for Pain. naproxen (NAPROSYN) 500 mg tablet Take 1 tablet by mouth twice daily as needed for Pain. Take with food. omeprazole (PRILOSEC) 20 mg capsule Take 1 capsule by mouth daily before breakfast. 1/2 hr before meal. diphenhydrAMINE (BENADRYL) 50 mg capsule Take 1 capsule by mouth every 6 hours as needed for Itching/Rash. buPROPion XL (WELLBUTRIN XL) 150 mg 24 hr tablet Take 1 tablet by mouth once daily. mometasone (ELOCON) 0.1 % cream Apply 1 application to affected area once daily. dicyclomine (BENTYL) 20 mg tablet Take 1 tablet by mouth three times daily before meals. lisinopril-hydrochlorothiazide (PRINZIDE,ZESTORETIC) 10-12.5 mg per tablet Take 1 tablet by mouth every morning. amLODIPine (NORVASC) 10 mg tablet Take 1 tablet by mouth once daily. sertraline (ZOLOFT) 100 mg tablet Take 1 tablet by mouth once daily. busPIRone (BUSPAR) 10 mg tablet Take 1 tablet by mouth three times daily. No current facility-administered medications on file prior to visit. Previous Medical History PAST MEDICAL HISTORY Diagnosis Date - Anxiety - Benign hypertension 08/07/2015 - Cannabis abuse 02/23/2010 - Carotid artery disorder ([facility]) Right sided - Carotid stenosis 03/11/2010 - Cervical cancer ([facility]) - CVA (cerebral infarction) 11/2009 L hemiparesis and decreased coordination - DDD (degenerative disc disease), lumbar 02/23/2010 - Diabetes ([facility]) - Diabetes mellitus ([facility]) 02/23/2010 - Diabetic nephropathy with proteinuria ([facility]) 03/18/2014 - Diabetic ulcer of toe of left foot associated with type 2 diabetes mellitus, limited to breakdown of skin ([facility]) 10/17/2017 - Environmental allergies - Essential hypertension, benign 06/22/2012 - Hyperlipidemia - Hyperlipidemia LDL goal < 100 03/18/2014 - Lichen planus 11/09/2010 - Lumbago-sciatica due to displacement of lumbar intervertebral disc 02/23/2010 - Lumbar radiculopathy 10/17/2017 left sciatica - Moderate single current episode of major depressive disorder ([facility]) 08/07/2015 - PVD (peripheral vascular disease) ([facility]) 2017 - Spastic neurogenic bladder 05/14/2015 - Tobacco abuse - Type 2 diabetes mellitus with microalbuminuria, without long-term current use of insulin ([facility]) 05/08/2017 Previous Surgical History PAST SURGICAL HISTORY Procedure Laterality Date - COLONOSCOP W/ OR W/O BRSH SPEC 04/11/2016 Colonoscopy - EGD W/O OR W/BRUSH/WASH 04/11/2016 EGD - LUMBAR OR CAUDAL EPIDURAL STEROID INJECTION 02/21/2011 - PAST SURGICAL HISTORY OF Exploratory surgery for cervical ca Family History FAMILY HISTORY Problem Relation Age of Onset - Coronary Artery Disease Father - Stroke Mother - Diabetes Maternal Grandmother Social History Social History Marital status: Spouse name: Years of education: Number of children: Social History Main Topics Smoking status: Current Every Day Smoker Packs/day: 1.00 Years: 0.00 Types: Cigarettes Smokeless tobacco: Never Used Comment: less then a pack. Has smoked since she was 15. Alcohol use: No Drug use: Yes Comment: rare marijuana use Sexual activity: Yes Partners with: Male EXAM: BP 126/84 Pulse 60 Temp 36.6 ?C (97.9 ?F) (Tympanic) Resp 16 Wt 59.4 kg (131 lb) BMI 25.58 kg/m? General Appearance: Unwell appearing, not toxic, alert, in no acute distress, well-hydrated, well nourished.. Skin: Skin color, texture, turgor normal, no suspicious rashes or lesions. Return demo blood sugar check with Freestyle [id number]. Component Latest Ref Rng AND Units 11/10/2017 Hemoglobin A1C (POCT) 4.2 - 5.6 % 14.5 (A) ASSESSMENT/PLAN: 1. Type 2 diabetes mellitus with peripheral vascular disease (HCC) - ICD9: 250.70, 443.81, ICD10: E11.51 (primary diagnosis) uncontrolled The patient is new to me. - Add Humalog/Novolog insulin Basaglar Insulin - Blood glucose monitoring on a four times a day schedule, before meals. - Follow up in 1 week, if able, sooner should any other issues arise. - Discussed diabetic education issues of hypoglycemic symptoms, hyperglycemic symptoms, medications- side effects and need for compliance and use and side effects of insulin with patient. - Patient instructed on all aspects of insulin, how to self inject, storage and handling, onset of action and duration of the medication. Will have PCP office reach out to patient tomorrow to see how doing with self injections and BS readings as likely her insulin doses with need to be titrated. Insulin dose 0.2 units/kg for each basal and bolus insulin. -Self injection with sterile saline with syringe completed with accurate technique to show what to expect with self injection. Patient did return demo several times with practice pen into injection pillow accurately. - ALCOHOL SWABS 2. Diabetic ulcer of toe of left foot associated with type 2 diabetes mellitus, limited to breakdown of skin (HCC) - ICD9: 250.80, 707.15, ICD10: E11.621, L97.521 -As above - INSULIN GLARGINE (U-100) 100 UNIT/ML (3 ML) SUBCUTANEOUS PEN - INSULIN LISPRO (U-100) 100 UNIT/ML SUBCUTANEOUS PEN - PEN NEEDLE, DIABETIC 31 GAUGE X 1/4 - HEMOGLOBIN A1C (POC) - ALCOHOL SWABS During this patient visit I have spent approximately 60 minutes in counseling and/or education regarding medications and coordinating care. Anthony High MSN COMMUNICATIONS PROGRAM MANAGER.CREDIT CONTROL ADMINISTRATOR CNOV Observed: 11/10/2017 Status: COMPLETED Source: [place] 2:20 PM [facility] REPOSITORY Office Visit (FAMPWS) DAVINA GREEN ([id number]) 1955 F Date Time Provider Department 11/10/17 2:20 PM ANTHONY HIGH (NURSE PRACTITIONER ADULT) FAMPWS During your visit today, we recorded the following information about you: Temperature Pulse Respiration Blood pressure 97.9 degrees 60/minute 16/minute 126/84 Weight 59.4 kg LEONIDAS Wolff COMMUNICATIONS PROGRAM MANAGER.CREDIT CONTROL ADMINISTRATOR 11/10/2017 3:32 PM Signed General Insulin Pen Instructions- Basaglar-Bedtime insulin Starting dose is 12 units. Meal insulin, Humalog or Lispro (generic) 4 units with each meal. 1. The insulin lasts 24 hours after a shot. Give this once daily, around the same time each day. 2. We discussed sites of injection and rotating so as not to give this in the same location daily. 3. When giving the shot in your belly, stay away from you belly button, 1-2 inches and any scars or wounds. Give insulin into the soft fatty part. 4. The box of pens comes as 5 pens in a box. Take one out, leave rest in refridgerator. 5. The pen (in use) can be left at room temperature. Do not leave it at extremes of temperatures. 6. Use one new pen needle per injection, the length to be 1/2 or 10/11 only - No shorter. 7. Always test the pen with 2 units each time before you give your dose. 7. Test your blood sugar as directed and record it. This tells us if the insulin dose is working. 8. Dose adjustments can be made and are usually once per week. 9. Call office if any problems with dose, symptoms of low blood sugar, or difficutly with the injection. Please call [phone] anytime you need help. 10. Pens that you are using at room temperature should only be used for 10-28 days depending on type of insulin. They should be discarded after that time. 11. The insulin pen you are using should be discarded as follows:Apidra and Lantus pens, cartridges - 28 days, then throw away Anthony High, MSN COMMUNICATIONS PROGRAM MANAGER.CREDIT CONTROL ADMINISTRATOR 11/10/2017 6:00 PM Signed Chief Complaint Patient presents with: Diabetic Teaching: insulin start HPI Davina Green is a 61 year old female who presents here today for Above Complaints. Patient of Dr. Ivy Jimenez III, here with Uncontrolled T2DM, Gangrene left foot, scheduled for surgery for amputation, yet to be determined how extensive, toe, foot or lower leg. Referred by Dr. Velma Jimenez's office for urgent visit and help with glycemic control, insulin start. Patient is brought in by daughter. Present for part of the visit. Patient reports taking no DM medications thought Actos and Glimepiride were on her medication list. She does report and confirmed taking all her other medications. She does not know her BS readings, not testing, no glucometer. She had PAT labs done at [facility], and reported BS over 400. Admits to nocturia 3 x /night, + polydipsia. Never used insulin. Reports eats 3 meals/day. The ROS is otherwise negative. Past medical history, appointments, medications, allergies reviewed. Patient Allergies ALLERGIES Allergen Reactions - Lipitor [Atorvastat* Other: See Comments fatigue - Penicillins Hives - Pravachol [Pravasta* Intolerance Fatigue, loss of appetite. - Prozac [Fluoxetine * Mental Status Change sleepiness Current Medications Current Outpatient Prescriptions on File Prior to Visit: Simethicone (GAS RELIEF) 125 mg chewable tablet Take 1 tablet by mouth every 6 hours as needed. SUMAtriptan (IMITREX) 50 mg tablet 50mg by mouth as needed for migraine headache; may repeat every 2 hrs as needed for migraine(max 4/day and 9/mo) acetaminophen (TYLENOL ARTHRITIS PAIN) 650 mg CR tablet Take 2 tablets by mouth twice daily as needed for Pain. naproxen (NAPROSYN) 500 mg tablet Take 1 tablet by mouth twice daily as needed for Pain. Take with food. omeprazole (PRILOSEC) 20 mg capsule Take 1 capsule by mouth daily before breakfast. 1/2 hr before meal. diphenhydrAMINE (BENADRYL) 50 mg capsule Take 1 capsule by mouth every 6 hours as needed for Itching/Rash. buPROPion XL (WELLBUTRIN XL) 150 mg 24 hr tablet Take 1 tablet by mouth once daily. mometasone (ELOCON) 0.1 % cream Apply 1 application to affected area once daily. dicyclomine (BENTYL) 20 mg tablet Take 1 tablet by mouth three times daily before meals. lisinopril-hydrochlorothiazide (PRINZIDE,ZESTORETIC) 10-12.5 mg per tablet Take 1 tablet by mouth every morning. amLODIPine (NORVASC) 10 mg tablet Take 1 tablet by mouth once daily. sertraline (ZOLOFT) 100 mg tablet Take 1 tablet by mouth once daily. busPIRone (BUSPAR) 10 mg tablet Take 1 tablet by mouth three times daily. No current facility-administered medications on file prior to visit. Previous Medical History PAST MEDICAL HISTORY Diagnosis Date - Anxiety - Benign hypertension 08/07/2015 - Cannabis abuse 02/23/2010 - Carotid artery disorder (HCC) Right sided - Carotid stenosis 03/11/2010 - Cervical cancer (HCC) - CVA (cerebral infarction) 11/2009 L hemiparesis and decreased coordination - DDD (degenerative disc disease), lumbar 02/23/2010 - Diabetes (HCC) - Diabetes mellitus (HCC) 02/23/2010 - Diabetic nephropathy with proteinuria (HCC) 03/18/2014 - Diabetic ulcer of toe of left foot associated with type 2 diabetes mellitus, limited to breakdown of skin ([facility]) 10/17/2017 - Environmental allergies - Essential hypertension, benign 06/22/2012 - Hyperlipidemia - Hyperlipidemia LDL goal < 100 03/18/2014 - Lichen planus 11/09/2010 - Lumbago-sciatica due to displacement of lumbar intervertebral disc 02/23/2010 - Lumbar radiculopathy 10/17/2017 left sciatica - Moderate single current episode of major depressive disorder (HCC) 08/07/2015 - PVD (peripheral vascular disease) ([facility]) 2017 - Spastic neurogenic bladder 05/14/2015 - Tobacco abuse - Type 2 diabetes mellitus with microalbuminuria, without long-term current use of insulin ([facility]) 05/08/2017 Previous Surgical History PAST SURGICAL HISTORY Procedure Laterality Date - COLONOSCOP W/ OR W/O BRSH SPEC 04/11/2016 Colonoscopy - EGD W/O OR W/BRUSH/WASH 04/11/2016 EGD - LUMBAR OR CAUDAL EPIDURAL STEROID INJECTION 02/21/2011 - PAST SURGICAL HISTORY OF Exploratory surgery for cervical ca Family History FAMILY HISTORY Problem Relation Age of Onset - Coronary Artery Disease Father - Stroke Mother - Diabetes Maternal Grandmother Social History Social History Marital status: Spouse name: Years of education: Number of children: Social History Main Topics Smoking status: Current Every Day Smoker Packs/day: 1.00 Years: 0.00 Types: Cigarettes Smokeless tobacco: Never Used Comment: less then a pack. Has smoked since she was 15. Alcohol use: No Drug use: Yes Comment: rare marijuana use Sexual activity: Yes Partners with: Male EXAM: BP 126/84 Pulse 60 Temp 36.6 ?C (97.9 ?F) (Tympanic) Resp 16 Wt 59.4 kg (131 lb) BMI 25.58 kg/m? General Appearance: Unwell appearing, not toxic, alert, in no acute distress, well-hydrated, well nourished.. Skin: Skin color, texture, turgor normal, no suspicious rashes or lesions. Return demo blood sugar check with Freestyle [id number]. Component Latest Ref Rng AND Units 11/10/2017 Hemoglobin A1C (POCT) 4.2 - 5.6 % 14.5 (A) ASSESSMENT/PLAN: 1. Type 2 diabetes mellitus with peripheral vascular disease (HCC) - ICD9: 250.70, 443.81, ICD10: E11.51 (primary diagnosis) uncontrolled The patient is new to me. - Add Humalog/Novolog insulin Basaglar Insulin - Blood glucose monitoring on a four times a day schedule, before meals. - Follow up in 1 week, if able, sooner should any other issues arise. - Discussed diabetic education issues of hypoglycemic symptoms, hyperglycemic symptoms, medications- side effects and need for compliance and use and side effects of insulin with patient. - Patient instructed on all aspects of insulin, how to self inject, storage and handling, onset of action and duration of the medication. Will have PCP office reach out to patient tomorrow to see how doing with self injections and BS readings as likely her insulin doses with need to be titrated. Insulin dose 0.2 units/kg for each basal and bolus insulin. -Self injection with sterile saline with syringe completed with accurate technique to show what to expect with self injection. Patient did return demo several times with practice pen into injection pillow accurately. - ALCOHOL SWABS 2. Diabetic ulcer of toe of left foot associated with type 2 diabetes mellitus, limited to breakdown of skin (HCC) - ICD9: 250.80, 707.15, ICD10: E11.621, L97.521 -As above - INSULIN GLARGINE (U-100) 100 UNIT/ML (3 ML) SUBCUTANEOUS PEN - INSULIN LISPRO (U-100) 100 UNIT/ML SUBCUTANEOUS PEN - PEN NEEDLE, DIABETIC 31 GAUGE X 1/4 - HEMOGLOBIN A1C (POC) - ALCOHOL SWABS During this patient visit I have spent approximately 60 minutes in counseling and/or education regarding medications and coordinating care. Anthony High, MSN COMMUNICATIONS PROGRAM MANAGER.CREDIT CONTROL ADMINISTRATOR Referring Provider: IVY JIMENEZ III [[id number]] Allergies As of Date: 11/10/2017 Noted Allergy Reaction LIPITOR (ATORVASTATIN CALCIUM) 02/23/2010 14 - Other: See Comments Comments: fatigue PENICILLINS 01/28/2010 4 - Hives PRAVACHOL (PRAVASTATIN SODIUM) 03/04/2010 5 - Intolerance Comments: Fatigue, loss of appetite. PROZAC (FLUOXETINE HCL) 08/07/2015 1 - Mental Status Change Comments: sleepiness Date Reviewed: 11/10/2017 Reviewed by: Wale Evans LPN - Fully Assessed Reason for Visit: Diabetic Teaching [250] Cmt: insulin start Primary Visit Diagnosis:Type 2 diabetes mellitus with peripheral vascular disease (HCC) [E11.51] Other Visit Diagnosis:Diabetic ulcer of toe of left foot associated with type 2 diabetes mellitus, limited to breakdown of skin (HCC) [E11.621, L97.521] Order(s):insulin glargine (BASAGLAR KWIKPEN U-100 INSULIN) 100 unit/mL (3 mL) inpnInject 12 Units subcutaneously daily at bedtime.Disp: 5 PenRfl: 5 insulin lispro (HUMALOG KWIKPEN INSULIN) 100 unit/mL inpnInject 4 Units subcutaneously w MEALS.Disp: 5 PenRfl: 1 Insulin [place], Disposable, (PEN NEEDLES) 31 gauge x 1/4 ndleUse one needle with each insulin dose. 4/dayDisp: 100 EachRfl: 11 HEMOGLOBIN A1C (POC) [[id number]] Order #: [id number]. #:[id number] alcohol swabs (ALCOHOL WIPES) padmApply 1 application to affected area four times daily.Disp: 120 EachRfl: 11 blood sugar diagnostic (FREESTYLE LITE STRIPS) test stripTest blood sugar(s) 4 times daily. Dx: Type 2 DM - Uncontrolled E11.65 Insulin: YesDisp: 150 StripRfl: 11 lancets (FREESTYLE LANCETS) 28 gauge miscTest blood sugar(s) 4 times daily. Dx: Type 2 DM - Uncontrolled E11.65 Insulin: YesDisp: 1 EachRfl: 11 Prescriptions as of 11/10/2017 Sig: SIMETHICONE 125 MG CHEWABLE T* Take 1 tablet by mouth every * SUMATRIPTAN 50 MG TABLET 50mg by mouth as needed for m* ACETAMINOPHEN ER 650 MG TABLE* Take 2 tablets by mouth twice* NAPROXEN 500 MG TABLET Take 1 tablet by mouth twice * OMEPRAZOLE 20 MG CAPSULE,GRABIEL* Take 1 capsule by mouth daily* DIPHENHYDRAMINE 50 MG CAPSULE Take 1 capsule by mouth every* BUPROPION XL 150 MG TAB Take 1 tablet by mouth once d* MOMETASONE 0.1 % TOPICAL CREAM Apply 1 application to affect* DICYCLOMINE 20 MG TABLET Take 1 tablet by mouth three * LISINOPRIL 10 MG-HYDROCHLOROT* Take 1 tablet by mouth every * AMLODIPINE 10 MG TABLET Take 1 tablet by mouth once d* SERTRALINE 100 MG TABLET Take 1 tablet by mouth once d* BUSPIRONE 10 MG TABLET Take 1 tablet by mouth three * INSULIN GLARGINE (U-100) 100 * Inject 12 Units subcutaneousl* INSULIN LISPRO (U-100) 100 UN* Inject 4 Units subcutaneously* PEN NEEDLE, DIABETIC 31 GAUGE* Use one needle with each insu* ALCOHOL SWABS Apply 1 application to affect* BLOOD SUGAR DIAGNOSTIC STRIPS Test blood sugar(s) 4 times d* LANCETS 28 GAUGE Test blood sugar(s) 4 times d* Medication notes this encounter GLIMEPIRIDE 2 MG TABLET >> Anthony High, MSN COMMUNICATIONS PROGRAM MANAGER.CREDIT CONTROL ADMINISTRATOR 11/10/2017 2:37 PM Did not take PIOGLITAZONE 15 MG TABLET >> Anthony High MSN COMMUNICATIONS PROGRAM MANAGER.CREDIT CONTROL ADMINISTRATOR 11/10/2017 2:56 PM Never took medication Problem List As Of Date 11/10/2017 Noted Resolved Stroke/Cerebrovascular Accident [I63.9] INVALID FOR* Lumbago-Sciatica due to Displacement of Lumbar *INVALID FOR* DDD (Degenerative Disc Disease), Lumbar [M51.36]INVALID FOR* Cannabis Abuse [F12.10] INVALID FOR* Lichen planus [L43.9] INVALID FOR* Lumbar facet arthropathy [M46.96] INVALID FOR* Essential hypertension, benign [I10] INVALID FOR* Nasal obstruction [J34.89] INVALID FOR* Myofascial pain [M79.1] INVALID FOR* Diabetic nephropathy with proteinuria (HCC) [E1*INVALID FOR* Hyperlipidemia with target LDL less than 100 [E*INVALID FOR* History of cerebrovascular accident (CVA) with *INVALID FOR* Urge incontinence of urine [N39.41] INVALID FOR* 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 Other instructions from your clinician: General Insulin Pen Instructions- Basaglar-Bedtime insulin Starting dose is 12 units. Meal insulin, Humalog or Lispro (generic) 4 units with each meal. 1. The insulin lasts 24 hours after a shot. Give this once daily, around the same time each day. 2. We discussed sites of injection and rotating so as not to give this in the same location daily. 3. When giving the shot in your belly, stay away from you belly button, 1-2 inches and any scars or wounds. Give insulin into the soft fatty part. 4. The box of pens comes as 5 pens in a box. Take one out, leave rest in refridgerator. 5. The pen (in use) can be left at room temperature. Do not leave it at extremes of temperatures. 6. Use one new pen needle per injection, the length to be 1/2 or 10/11 only - No shorter. 7. Always test the pen with 2 units each time before you give your dose. 7. Test your blood sugar as directed and record it. This tells us if the insulin dose is working. 8. Dose adjustments can be made and are usually once per week. 9. Call office if any problems with dose, symptoms of low blood sugar, or difficutly with the injection. Please call [phone] anytime you need help. 10. Pens that you are using at room temperature should only be used for 10-28 days depending on type of insulin. They should be discarded after that time. 11. The insulin pen you are using should be discarded as follows:Apidra and Lantus pens, cartridges - 28 days, then throw away Prescriptions ordered this encounter Disp Refills Start End INSULIN GLARGINE (U-100) 100 UNIT/ML* 5 Pen 5 11/10/2017 Route: SUBCUTANEOUS Sig: Inject 12 Units subcutaneously daily at bedtime. INSULIN LISPRO (U-100) 100 UNIT/ML S* 5 Pen 1 11/10/2017 Route: SUBCUTANEOUS Sig: Inject 4 Units subcutaneously w MEALS. PEN NEEDLE, DIABETIC 31 GAUGE X 1/4 100 * 11/10/2017 Sig: Use one needle with each insulin dose. 4/day ALCOHOL SWABS 120 * 11 11/10/2017 Route: TOPICAL Sig: Apply 1 application to affected area four times daily. BLOOD SUGAR DIAGNOSTIC STRIPS 150 * 11/10/2017 Sig: Test blood sugar(s) 4 times daily. Dx: Type 2 DM - Uncontrolled E11.65 Insulin: Yes LANCETS 28 GAUGE 1 Ea* 11 11/10/2017 Sig: Test blood sugar(s) 4 times daily. Dx: Type 2 DM - Uncontrolled E11.65 Insulin: Yes Medications Discontinued During This Encounter glimepiride (AMARYL) 2 mg tablet 30 t* 11 11/04/2016 11/10/2017 Route: ORAL Sig: Take 1 tablet by mouth daily with breakfast. Patient not taking: Reported on 10/17/2017 Disc: Discontinued by Patient pioglitazone (ACTOS) 15 mg tablet 30 t* 11 11/04/2016 11/10/2017 Route: ORAL Sig: Take 1 tablet by mouth once daily. Disc: Discontinued by Patient furosemide (LASIX) 20 mg tablet 30 t* 2 11/05/2016 11/10/2017 Route: ORAL Sig: Take 1 tablet by mouth once daily. Patient not taking: Reported on 10/17/2017 Disc: Course of therapy completed nystatin (MYCOSTATIN) powder 60 g 11 10/07/2016 11/10/2017 Route: TOPICAL Sig: Apply 1 application to affected area twice daily. Disc: Course of therapy completed Disposition: Return in about 1 week (around 11/17/2017). Follow-up and Disposition History Recorded Encounter Status:Closed by ANTHONY HIGH CNP on 11/10/17 SURGERY VISIT REPORT Observed: 11/08/2017 Status: F Source: [place] 7:41 PM [facility] REPOSITORY [facility] [address] [place] [address] [address] [place] [address] OFFICE VISIT Date of Service: 11/08/17 MR#: [id number] Acct: [id number] Name: PETERDAVINA Ibeth Rep #: [id number] : 1955 Provider: Velma Jimenez MD Age/Sex: 61/F Location: [facility] Status: Signed Intake Vital Signs11/08/17 Height 5 ft 11/08/17 Weight: 139 lb 2 oz 11/08/17 Body Mass Index (BMI) 27.1 11/08/17 Blood Pressure 132/87 Intake Visit Reasons: GANGRENE TOES Chief Complaint: left 5th toe gangrene Pulp Grinder Required: No Is patient in pain?: Yes Allergies Penicillins Allergy (Verified 09/13/17 18:40) Rash Medications Amlodipine [Norvasc] 10 mg PO DAILY 12/18/15 [History Confirmed 11/08/17] Lisinopril [Zestril] 10 mg PO DAILY 12/18/15 [History Confirmed 11/08/17] busPIRone [Buspar] 5 mg PO DAILY 12/18/15 [History Confirmed 11/08/17] Aspirin/Acetaminophen/Caffeine [Excedrin Migraine Caplet] 1 ea PO PRN PRN 09/22/16 [History Confirmed 11/08/17] Sertraline HCl [Zoloft] 25 mg PO DAILY 10/11/16 [History Confirmed 11/08/17] Simethicone 125 mg PO TID 10/11/16 [History Confirmed 11/08/17] Permethrin 5% [Permethrin] 60 gm TOPICAL X1 #1 cream..g. 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 Social History Smoking Status: Current every day smoker HPI HPI HPI: DAVINA GREEN, is a 61 F who presents to the office today for surgical consultation regarding dry gangrene of her left fifth digit. The patient is referred by cooling tower operator Dr. Pompa in the patient's primary care physician is Dr. Ivy Jimenez, SHE[facility]. During the discussion her suggest that the patient is extraordinarily medically noncompliant. She has had a previous stroke with residual facial weakness deficit. She continues to smoke cigarettes at the rate of at least a pack per day. She has diabetes but does not take medication nor does she check her blood sugars. She states that at least for several weeks now she has had darkness of her left fifth toe. She states that for the past week she has had a red streak up the left foot. She has not notified any of her previous physicians of this issue. She complains of pain. She denies fever or chills or sweats. On November 01, 2017 she had noninvasive testing. The right ABIs were 0.87 and the left JOANA 0.51. Vessels were noncompliant. She is not on any anticoagulant. She does not note any chronic renal failure. She states that she has never had a previous myocardial infarction. ROS General General: Yes weight change and fatigue; no appetite, colon cancer, breast cancer or weakness HEENT HEENT: Yes swollen glands; no difficulty swallowing, eye injury, eye surgery or hoarseness Endo Endocrine: Yes diabetes mellitus; no thyroid disease, thyroid cancer, Hair loss, heat intolerance or cold intolerance Musc Musculoskeletal: Yes back problems; no arthritis, rheumatoid arthritis, gout or joint pain Cardio Cardiovascular: Yes high blood pressure; no murmur, pacemaker, heart disease, atrial fibrillation, heart attack, heart stent, palpitations, shortness of breat with exertion or chest pain Resp Respiratory: No shortness of breath, No sleep apnea, No cough, No COPD, Yes asthma, No emphysema, No wheezing Gastro Gastrointestinal: No abdominal pain, No nausea or vomiting, No diarrhea, No constipation, No blood in stool, No acid reflux, No hemorrhoids, No ulcers, No gallbladder problem, No black,tarry stools [place]on Hematologic: No blood thinners, No blood disorders, No bleeding, No anemia, No blood clots Neuro Neurologic: No weakness Exam Const General: frail appearing Nutritional Appearance: underweight Orientation: alert, awake, oriented x3 Other: Extraordinarily heavy odor of tobacco HENMT Other: Facial droop on right. Significant loss of dentition Eyes General: appearance normal, both eyes and all related structures Chest Other: Increased anterior posterior diameter Resp Other: Scattered dry bibasilar rales Cardio Rate: regular rate Rhythm: regular rhythm Heart Sounds: no murmurs Other: Bilateral carotids are 2+. No bruits. Well-healed surgical incision right neck from carotid endarterectomy. Bilateral brachials 2+. Bilateral radials 2+. Bilateral femorals 1-2+. Bilateral popliteals difficult to appreciate. Nonpalpable lateral DP and PT pulses GI Palpation: soft, no hepatosplenomegaly Auscultation: normal bowel sounds Other: Not pulsatile Musc Cervical Spine: normal cervical lordosis Neuro Cognition: normal cognition Extrem Other: Gangrene left fifth toe with lymphatic streaking from the left fifth toe to the dorsum of the foot. Venous filling is noted. Dependent rubor and elevation pallor bilateral feet. Moisture of the fifth toe noted. Psych Affect: normal affect Assessment AND Plan Problems 1. Tobacco abuse Z72.0 2. Right-sided carotid artery disease I77.9 3. Type 2 diabetes mellitus with diabetic peripheral angiopathy and gangrene, without long-term current use of insulin E11.52 4. PVD (peripheral vascular disease) I73.9 Plan The patient will go to the [facility] infusion center and receive 1 g of Invanz. We will initiate her on Bactrim therapy. She will recontact us tomorrow with a progress report. We will schedule her for a abdominal pelvic left lower extremity arteriogram at absolute earliest convenience. We will recommend Betadine pain in the left fifth digit with allowing to dry and careful gauze protection of the fifth digit. With the patient and her present she is absolutely keenly aware of the risk of loss of toe loss of foot loss of leg. She is aware of the potential risk of sepsis. She has been vigorously encouraged to immediately stop her tobacco use. She has been educated that it is hoped that an endovascular approach will be able to be utilized and improve her vascular flow to the left lower extremity. Absolutely no guarantees of success have been offered. She has had an opportunity to ask and have questions answered. She is well aware that Dr. Pompa anticipates future left fifth digit amputation. At this time I do not believe she has enough vascular flow to resolve that issue and she appears to have developed wet gangrene with progressive infection for which as noted we will get her started on IV antibiotics with conversion to oral. I appreciate the opportunity of assisting with her surgical care. I believe that her medical noncompliance and ongoing tobacco use likely result in a very poor outcome. We will obtain appropriate laboratory. After the patient left the office laboratory became available demonstrating a markedly elevated glucose consistent with the patient's noncompliance. We will try to recruit assistance from Dr. Ivy Jimenez III for medical management that to improve her long-term wound healing and infection resistance. Cc: Dr. Ivy Jimenez III and Dr. Peña Jimenez M.D., F.A.C.S. Orders Orders: Coding Level of Care Code Comprehensive,moderate Diagnoses Tobacco abuse Z72.0 Right-sided carotid artery disease I77.9 Laterality: right Type 2 diabetes mellitus with diabetic peripheral angiopathy and gangrene, without long-term current use of insulin E11.52 Diabetes mellitus type: type 2 Diabetes mellitus complication status: with circulatory complication Diabetes mellitus complication detail: with peripheral angiopathy with gangrene Diabetes mellitus senior living insulin use: without keno terminal operator use PVD (peripheral vascular disease) I73.9 11/08/171940 <Electronically signed by Velma Jimenez MD> Date Velma Jimenez MD Cosigner Signature: Date (if applicable) CC: NOA Pompa; Ivy Jimenez III, MD CBC W/DIFF, AUTOMATED Collected: 11/08/2017 Status: F Source: [place] 2:53 PM [facility] REPOSITORY TYPE CODE TESTS RESULT OUT OF RANGE REFERENCE UNITS LAB L100.1000 4.4-11.0 K/mm3 High WBC 12.2 LAB L100.1200 4.2-5.4 M/mm3 Normal RBC 5.07 LAB L100.1300 12.0-15.0 g/dl High HGB 15.1 LAB L100.1400 37-47 % Normal HCT 43.1 LAB L100.1500 81-99 fL Normal MCV 85.0 LAB L100.1600 27.0-32.0 pg Normal MCH 29.8 LAB L100.1700 32-36 g/gl Normal MCHC 35.0 LAB L100.1810 11.6-14.6 % Normal RDW CV 13.6 LAB L100.1820 35.1-43.9 fl Normal RDW SD 42.0 LAB L100.1900 150-450 K/mm3 Normal PLT 387 LAB L100.2000 6.2-12.0 fl Normal MPV 9.5 LAB L100.2100 47-70 % High NEUT% 73.8 LAB L100.2200 19-41 % Low LY% 15.0 LAB L100.2300 0-10 % Normal MONO% 5.1 LAB L100.2400 0-5 % High EO% 5.8 LAB L100.2500 0-1 % Normal BASO% 0.2 LAB L100.2550 0.0-0.9 % Normal IM GRAN % 0.100 Result Comment: IG% - Immature Granulocytes (promyelocytes, myelocytes and metamyelocytes) > 1% indicates that a LEFT SHIFT is Present. LAB L100.2620 2.0-7.7 X10 3/uL High Absolute Neut 9.0 LAB L100.2720 0.83-4.51 X10 3/ul Normal Absolute Lymph 1.82 Performed By: #### L100.0100, L500.2500 #### [facility] [address] [place], [place], [address] BASIC METABOLIC Collected: 11/08/2017 Status: F Source: [place] PROFILE (BMP) 2:53 PM [facility] REPOSITORY TYPE CODE TESTS RESULT OUT OF RANGE REFERENCE UNITS LAB L501.0100 74-106 mg/dL High GLU 405 Result Comment: Glucose result greater than or equal to 200 mg/dL suggests DIABETES MELLITUS per A.D.A. criteria. Please note revised GLUCOSE reference range effective 2017. LAB L501.1000 7-18 mg/dL Normal BUN 17 LAB L501.1100 0.55-1.02 mg/dL High CREAT,SERUM 1.36 Result Comment: The validity of the calculated GFR AND GFRAA in patients over 70 years has not been determined. Clinical correlation is essential. LAB L501.1110 >60 mL/min Low EST GFR 42 Result Comment: Non- GFR Calc LAB L501.1115 >60 mL/min Low EST GFR - AA 51 Result Comment: GFR Calc LAB L501.1255 ml/min Normal Estimated CRCL 31.20 LAB L501.1300 10-20 RATIO Normal BUN/CRE 12.5 LAB L501.2200 8.5-10 mg/dL Normal .1 CA 9.2 LAB L501.5300 136-14 mmol/L Low 5 NA 129 LAB L501.5600 3.5-5. mmol/L Normal 1 K 4.0 Result Comment: Slight Hemolysis, Result may be falsely increased. LAB L501.5900 98-107 mmol/L Low CL 94 LAB L501.6100 21.0-32.0 mmol/L Normal CO2 28.0 LAB L501.6200 5-15 Normal GAP 7 Performed By: #### L100.0100, L500.2500 #### [facility] [address] [place], [address] XR FOOT 3V AP/LAT/OBL Observed: 11/01/2017 Status: F Source: [facility] 4:29 PM [facility] REPOSITORY * * *Final Report* * * DATE OF EXAM: Nov 01 2017 4:29PM WRX [id number] - XR FOOT 3V AP/LAT/OBL LT / PROCEDURE REASON: multiple diagnoses * * * * Physician Interpretation * * * * LEFT FOOT INDICATIONS: Peripheral vascular disease. Gangrene. TECHNIQUE: AP and lateral standing and oblique views were performed. RESULT: There is a small soft tissue lucency seen involving the distal aspect of the great toe. There is no evidence of bony destruction of the tuft of the distal phalanx of the great toe. The remaining osseous structures are osteopenic but intact. There is mild narrowing of the first metatarsal phalangeal joint. The remaining joint spaces are maintained. There are no erosive changes identified. There is a calcaneal spur at the insertion of the plantar fascia. IMPRESSION: SOFT TISSUE DEFECT LIKELY REPRESENTING ULCERATION ASSOCIATED WITH THE GREAT TOE. NO EVIDENCE OF UNDERLYING OSTEOMYELITIS. CALCANEAL SPUR. MILD DEGENERATIVE DISEASE OF THE FIRST METATARSOPHALANGEAL JOINT. Renewable Energy Technician: VAZQUEZ Transcribe Date/Time: Nov 03 2017 9:03A Dictated by : BRIELLE PERDOMO MD This examination was interpreted and the report reviewed and electronically signed by: BRIELLE PERDOMO MD on Nov 03 2017 9:09AM EST [id number] PROGRESS Observed: 11/01/2017 Status: COMPLETED Source: [place] 4:21 PM [facility] REPOSITORY HNO ID: [id number] Author: Monica Cristina (Rt) Emily Iverson Service: (none) Author Type: Knockdown Man Type: Progress Notes Filed: 11/01/2017 4:29 PM Note Text: Radiology Service Progress Note PATIENT NAME: Davina Green DATE OF SERVICE: November 01, 2017 TIME: 4:21 PM PATIENT IDENTITY VERIFICATION COMPLETED USING TWO (2) METHODS: Patient confirmed name verbally and Date of . PATIENT GENDER DATA: Female. status: : No status: NO. PATIENT RELEVANT IMPLANT DATA REVIEWED: Not Applicable RADIOLOGY DEPARTMENT: General X-ray: Exam(s) Completed: Lower Extremity X-Ray(s): Foot, Left and Wt. Bearing: PERIPHERAL IV DATA: Not applicable SIGNED BY: RT Joaquin November 01, 2017 4:21 PM PROGRESS Observed: 11/01/2017 Status: COMPLETED Source: [place] 2:[address] [facility] REPOSITORY O ID: [id number] Author: Allie Pompa Service: (none) Author Type: Physician Type: Progress Notes Filed: 11/01/2017 4:32 PM Note Text: ? Allie Pompa DPM Department of Podiatry [address] [facility] [address] Dept: [phone] Dept 11/01/2017 Initial Podiatric Office Visit: HPI: Davina Green is a 61 year old female. Patient presents with:black left 5th toe for the past 2 weeks. Patient complains of pain. Pain is rated at 10/10, and described as stabbing and burning. She does not recall any injury or bumping toe. She smokes 1 PPD of cigarettes. She is a diabetic but does not check her blood sugar at home. Hemoglobin A1C (%) Date Value 11/04/2016 12.3 PCP: Ivy Jimenez III MD PAST MEDICAL HISTORY Diagnosis Date - Anxiety - Benign hypertension 08/07/2015 - Cannabis abuse 02/23/2010 - Carotid stenosis 03/11/2010 - Cervical cancer (HCC) - CVA (cerebral infarction) 11/2009 L hemiparesis and decreased coordination - DDD (degenerative disc disease), lumbar 02/23/2010 - Diabetes (HCC) - Diabetes mellitus (HCC) 02/23/2010 - Diabetic nephropathy with proteinuria (HCC) 03/18/2014 - Diabetic ulcer of toe of left foot associated with type 2 diabetes mellitus, limited to breakdown of skin ([facility]) 10/17/2017 - Environmental allergies - Essential hypertension, benign 06/22/2012 - Hyperlipidemia - Hyperlipidemia LDL goal < 100 03/18/2014 - Lichen planus 11/09/2010 - Lumbago-sciatica due to displacement of lumbar intervertebral disc 02/23/2010 - Lumbar radiculopathy 10/17/2017 left sciatica - Moderate single current episode of major depressive disorder ([facility]) 08/07/2015 - Spastic neurogenic bladder 05/14/2015 - Type 2 diabetes mellitus with microalbuminuria, without long-term current use of insulin ([facility]) 05/08/2017 Current Outpatient Prescriptions: Simethicone (GAS RELIEF) 125 mg chewable tablet Take 1 tablet by mouth every 6 hours as needed. SUMAtriptan (IMITREX) 50 mg tablet 50mg by mouth as needed for migraine headache; may repeat every 2 hrs as needed for migraine(max 4/day and 9/mo) acetaminophen (TYLENOL ARTHRITIS PAIN) 650 mg CR tablet Take 2 tablets by mouth twice daily as needed for Pain. naproxen (NAPROSYN) 500 mg tablet Take 1 tablet by mouth twice daily as needed for Pain. Take with food. omeprazole (PRILOSEC) 20 mg capsule Take 1 capsule by mouth daily before breakfast. 1/2 hr before meal. diphenhydrAMINE (BENADRYL) 50 mg capsule Take 1 capsule by mouth every 6 hours as needed for Itching/Rash. buPROPion XL (WELLBUTRIN XL) 150 mg 24 hr tablet Take 1 tablet by mouth once daily. mometasone (ELOCON) 0.1 % cream Apply 1 application to affected area once daily. dicyclomine (BENTYL) 20 mg tablet Take 1 tablet by mouth three times daily before meals. lisinopril-hydrochlorothiazide (PRINZIDE,ZESTORETIC) 10-12.5 mg per tablet Take 1 tablet by mouth every morning. amLODIPine (NORVASC) 10 mg tablet Take 1 tablet by mouth once daily. pioglitazone (ACTOS) 15 mg tablet Take 1 tablet by mouth once daily. sertraline (ZOLOFT) 100 mg tablet Take 1 tablet by mouth once daily. busPIRone (BUSPAR) 10 mg tablet Take 1 tablet by mouth three times daily. nystatin (MYCOSTATIN) powder Apply 1 application to affected area twice daily. furosemide (LASIX) 20 mg tablet Take 1 tablet by mouth once daily. (Patient not taking: Reported on 10/17/2017 ) glimepiride (AMARYL) 2 mg tablet Take 1 tablet by mouth daily with breakfast. (Patient not taking: Reported on 10/17/2017 ) No current facility-administered medications for this visit. ALLERGIES Allergen Reactions - Lipitor [Atorvastat* Other: See Comments fatigue - Penicillins Hives - Pravachol [Pravasta* Intolerance Fatigue, loss of appetite. - Prozac [Fluoxetine * Mental Status Change sleepiness PAST SURGICAL HISTORY Procedure Laterality Date - COLONOSCOP W/ OR W/O BRSH SPEC 04/11/2016 Colonoscopy - EGD W/O OR W/BRUSH/WASH 04/11/2016 EGD - LUMBAR OR CAUDAL EPIDURAL STEROID INJECTION 02/21/2011 - PAST SURGICAL HISTORY OF Exploratory surgery for cervical ca FAMILY HISTORY Problem Relation Age of Onset - Coronary Artery Disease Father - Stroke Mother - Diabetes Maternal Grandmother Social History Marital status: Spouse name: Years of education: Number of children: Social History Main Topics Smoking status: Current Every Day Smoker Packs/day: 1.00 Years: 0.00 Types: Cigarettes Smokeless tobacco: Never Used Comment: less then a pack. Has smoked since she was 15. Alcohol use: No Drug use: Yes Comment: rare marijuana use Sexual activity: Yes Partners with: Male REVIEW OF SYSTEMS: CONSTITUTIONAL: No fevers, chills, nightsweats, unintended weight loss HEENT: Denies frequent or severe heaches, nasal congestion/sinus symptoms, problematic allergy problems. EYES: No diplopia or blurry vision. CARDIOVASCULAR: No chest pain, dyspnea, palpitations, orthopnea, PND, ankle edema. PULM: No dyspnea, unexplained cough. GI: No dysphagia/odynophagia, problematic reflux, constipation, diarrhea, changes in stool habits, hematochezia, melena. : No new urinary complaints, including dysuria, gross hematuria or pyuria. NEURO: No new balance problems, peripheral weakness/paresthesias or numbness of concern. MUSC-SKEL: No new joint pain, swelling, or erythema. PSY: No concerns regarding depression, anxiety or panic. INTEGUMENTARY: No new skin changes (rash, new or changing mole, new growth) Physical Exam: Constitutional: Pt is a well developed 61 year old female who is alert, oriented and cooperative Eyes: Following during examination. No redness or drainage. Respiratory: RR normal and nonlabored. Even breathing. No evidence of distress or shortness of breath. Psychology: Patient is engaged during conversation. Normal affect and mood. Does not appear depressed or anxious during encounter. Vascular: Dorsalis pedis and posterior tibial pulses nonpalpable b/l Capillary Fill time >5 seconds to digits 1-5 b/l Skin temperature warm to cool proximal to distal b/l Hair growth absent to digits Biphasic dorsalis pedis, right Monophasic dorsalis pedis, left Biphasic posterior tibial, right Nonaudible posterior tibial, left Neurological: decreased light touch/epicritic sensation Vibratory sensation intact to hallux b/l intact protective sensation, Dermatological: Nails 1-5 b/l appear thick and long and painful. Webspaces clean and dry 1-4 b/l. Skin appears well hydrated and supple. Dry gangrene to left 5th toe. Does not appear to be infected. Callosities absent.Open lesions absent. Musculoskeletal/Orthopaedic: Patient has pain to palpation of left 5th toe Foot type is neutral structurally AJ ROM is full with knee extended and flexed 1st MPJ is full when loaded and no pain or crepitus are noted with ROM. MTJ, STJ are full and free of pain and crepitus. +5/5 muscle strength dorsiflexion, plantarflexion, inversion, eversion b/l ASSESSMENT: (I96) Gangrene of toe of left foot ([facility]) (primary encounter diagnosis) Comment: No signs of infection at present. Explained to patient that this will most likely require amputation. Explained that vascular studies need to be done to determine blood flow. Options include going to hospital now vs PVR tomorrow and then going to hospital. In absence of infection, we can order stat pvr and refer to vascular thereafter. She needs to stop smoking. Plan: 1. Patient was seen and evaluated 2. Xrays ordered today 3. PVR ordered (I73.9) PAD (peripheral artery disease) ([facility]) Comment: Plan: 1. PVR ordered (E11.40) Type 2 diabetes mellitus with diabetic neuropathy, unspecified whether keno terminal operator insulin use ([facility]) Plan: Same as above Onychomycosis: toenails 1-5 right and 1-4 left were debrided in length and thickness. Did not debrided left 5th toe due to pain. Pain in left foot Pain in right foot The documentation for this note was completed by Jodie Calderón RN acting as scribe for Allie Pompa DPM. November 01, 2017 2:54 PM. I agree with the Chief Complaint, ROS, and Past Histories independently gathered by the clinical retail support associate and the remaining scribed note accurately describes my personal service to the patient. Allie Pompa DPM CNOV Observed: 11/01/2017 Status: COMPLETED Source: [place] 2:25 PM [facility] REPOSITORY Office Visit (PODIWS) PETERDAVINA KAHN ([id number]) 1955 F Date Time Provider Department 11/01/17 2:25 PM ALLIE POMPA PODMIGUEL During your visit today, we recorded the following information about you: Allie Pompa DPM 11/01/2017 4:32 PM Signed ? Allie Pompa DPM Department of Podiatry [address] [facility] [address] Dept: [phone] Dept 11/01/2017 Initial Podiatric Office Visit: HPI: Davina Green is a 61 year old female. Patient presents with:black left 5th toe for the past 2 weeks. Patient complains of pain. Pain is rated at 10/10, and described as stabbing and burning. She does not recall any injury or bumping toe. She smokes 1 PPD of cigarettes. She is a diabetic but does not check her blood sugar at home. Hemoglobin A1C (%) Date Value 11/04/2016 12.3 PCP: Ivy Jimenez III MD PAST MEDICAL HISTORY Diagnosis Date - Anxiety - Benign hypertension 08/07/2015 - Cannabis abuse 02/23/2010 - Carotid stenosis 03/11/2010 - Cervical cancer (HCC) - CVA (cerebral infarction) 11/2009 L hemiparesis and decreased coordination - DDD (degenerative disc disease), lumbar 02/23/2010 - Diabetes (HCC) - Diabetes mellitus (HCC) 02/23/2010 - Diabetic nephropathy with proteinuria (HCC) 03/18/2014 - Diabetic ulcer of toe of left foot associated with type 2 diabetes mellitus, limited to breakdown of skin ([facility]) 10/17/2017 - Environmental allergies - Essential hypertension, benign 06/22/2012 - Hyperlipidemia - Hyperlipidemia LDL goal < 100 03/18/2014 - Lichen planus 11/09/2010 - Lumbago-sciatica due to displacement of lumbar intervertebral disc 02/23/2010 - Lumbar radiculopathy 10/17/2017 left sciatica - Moderate single current episode of major depressive disorder ([facility]) 08/07/2015 - Spastic neurogenic bladder 05/14/2015 - Type 2 diabetes mellitus with microalbuminuria, without long-term current use of insulin ([facility]) 05/08/2017 Current Outpatient Prescriptions: Simethicone (GAS RELIEF) 125 mg chewable tablet Take 1 tablet by mouth every 6 hours as needed. SUMAtriptan (IMITREX) 50 mg tablet 50mg by mouth as needed for migraine headache; may repeat every 2 hrs as needed for migraine(max 4/day and 9/mo) acetaminophen (TYLENOL ARTHRITIS PAIN) 650 mg CR tablet Take 2 tablets by mouth twice daily as needed for Pain. naproxen (NAPROSYN) 500 mg tablet Take 1 tablet by mouth twice daily as needed for Pain. Take with food. omeprazole (PRILOSEC) 20 mg capsule Take 1 capsule by mouth daily before breakfast. 1/2 hr before meal. diphenhydrAMINE (BENADRYL) 50 mg capsule Take 1 capsule by mouth every 6 hours as needed for Itching/Rash. buPROPion XL (WELLBUTRIN XL) 150 mg 24 hr tablet Take 1 tablet by mouth once daily. mometasone (ELOCON) 0.1 % cream Apply 1 application to affected area once daily. dicyclomine (BENTYL) 20 mg tablet Take 1 tablet by mouth three times daily before meals. lisinopril-hydrochlorothiazide (PRINZIDE,ZESTORETIC) 10-12.5 mg per tablet Take 1 tablet by mouth every morning. amLODIPine (NORVASC) 10 mg tablet Take 1 tablet by mouth once daily. pioglitazone (ACTOS) 15 mg tablet Take 1 tablet by mouth once daily. sertraline (ZOLOFT) 100 mg tablet Take 1 tablet by mouth once daily. busPIRone (BUSPAR) 10 mg tablet Take 1 tablet by mouth three times daily. nystatin (MYCOSTATIN) powder Apply 1 application to affected area twice daily. furosemide (LASIX) 20 mg tablet Take 1 tablet by mouth once daily. (Patient not taking: Reported on 10/17/2017 ) glimepiride (AMARYL) 2 mg tablet Take 1 tablet by mouth daily with breakfast. (Patient not taking: Reported on 10/17/2017 ) No current facility-administered medications for this visit. ALLERGIES Allergen Reactions - Lipitor [Atorvastat* Other: See Comments fatigue - Penicillins Hives - Pravachol [Pravasta* Intolerance Fatigue, loss of appetite. - Prozac [Fluoxetine * Mental Status Change sleepiness PAST SURGICAL HISTORY Procedure Laterality Date - COLONOSCOP W/ OR W/O BRSH SPEC 04/11/2016 Colonoscopy - EGD W/O OR W/BRUSH/WASH 04/11/2016 EGD - LUMBAR OR CAUDAL EPIDURAL STEROID INJECTION 02/21/2011 - PAST SURGICAL HISTORY OF Exploratory surgery for cervical ca FAMILY HISTORY Problem Relation Age of Onset - Coronary Artery Disease Father - Stroke Mother - Diabetes Maternal Grandmother Social History Marital status: Spouse name: Years of education: Number of children: Social History Main Topics Smoking status: Current Every Day Smoker Packs/day: 1.00 Years: 0.00 Types: Cigarettes Smokeless tobacco: Never Used Comment: less then a pack. Has smoked since she was 15. Alcohol use: No Drug use: Yes Comment: rare marijuana use Sexual activity: Yes Partners with: Male REVIEW OF SYSTEMS: CONSTITUTIONAL: No fevers, chills, nightsweats, unintended weight loss HEENT: Denies frequent or severe heaches, nasal congestion/sinus symptoms, problematic allergy problems. EYES: No diplopia or blurry vision. CARDIOVASCULAR: No chest pain, dyspnea, palpitations, orthopnea, PND, ankle edema. PULM: No dyspnea, unexplained cough. GI: No dysphagia/odynophagia, problematic reflux, constipation, diarrhea, changes in stool habits, hematochezia, melena. : No new urinary complaints, including dysuria, gross hematuria or pyuria. NEURO: No new balance problems, peripheral weakness/paresthesias or numbness of concern. MUSC-SKEL: No new joint pain, swelling, or erythema. PSY: No concerns regarding depression, anxiety or panic. INTEGUMENTARY: No new skin changes (rash, new or changing mole, new growth) Physical Exam: Constitutional: Pt is a well developed 61 year old female who is alert, oriented and cooperative Eyes: Following during examination. No redness or drainage. Respiratory: RR normal and nonlabored. Even breathing. No evidence of distress or shortness of breath. Psychology: Patient is engaged during conversation. Normal affect and mood. Does not appear depressed or anxious during encounter. Vascular: Dorsalis pedis and posterior tibial pulses nonpalpable b/l Capillary Fill time >5 seconds to digits 1-5 b/l Skin temperature warm to cool proximal to distal b/l Hair growth absent to digits Biphasic dorsalis pedis, right Monophasic dorsalis pedis, left Biphasic posterior tibial, right Nonaudible posterior tibial, left Neurological: decreased light touch/epicritic sensation Vibratory sensation intact to hallux b/l intact protective sensation, Dermatological: Nails 1-5 b/l appear thick and long and painful. Webspaces clean and dry 1-4 b/l. Skin appears well hydrated and supple. Dry gangrene to left 5th toe. Does not appear to be infected. Callosities absent.Open lesions absent. Musculoskeletal/Orthopaedic: Patient has pain to palpation of left 5th toe Foot type is neutral structurally AJ ROM is full with knee extended and flexed 1st MPJ is full when loaded and no pain or crepitus are noted with ROM. MTJ, STJ are full and free of pain and crepitus. +5/5 muscle strength dorsiflexion, plantarflexion, inversion, eversion b/l ASSESSMENT: (I96) Gangrene of toe of left foot ([facility]) (primary encounter diagnosis) Comment: No signs of infection at present. Explained to patient that this will most likely require amputation. Explained that vascular studies need to be done to determine blood flow. Options include going to hospital now vs PVR tomorrow and then going to hospital. In absence of infection, we can order stat pvr and refer to vascular thereafter. She needs to stop smoking. Plan: 1. Patient was seen and evaluated 2. Xrays ordered today 3. PVR ordered (I73.9) PAD (peripheral artery disease) ([facility]) Comment: Plan: 1. PVR ordered (E11.40) Type 2 diabetes mellitus with diabetic neuropathy, unspecified whether senior living insulin use ([facility]) Plan: Same as above Onychomycosis: toenails 1-5 right and 1-4 left were debrided in length and thickness. Did not debrided left 5th toe due to pain. Pain in left foot Pain in right foot The documentation for this note was completed by Jodie Calderón RN acting as scribe for Allie Pompa DPM. November 01, 2017 2:54 PM. I agree with the Chief Complaint, ROS, and Past Histories independently gathered by the clinical retail support associate and the remaining scribed note accurately describes my personal service to the patient. Allie Pompa DPM Referring Provider: IVY JIMENEZ III [[id number]] Allergies As of Date: 11/01/2017 Noted Allergy Reaction LIPITOR (ATORVASTATIN CALCIUM) 02/23/2010 14 - Other: See Comments Comments: fatigue PENICILLINS 01/28/2010 4 - Hives PRAVACHOL (PRAVASTATIN SODIUM) 03/04/2010 5 - Intolerance Comments: Fatigue, loss of appetite. PROZAC (FLUOXETINE HCL) 08/07/2015 1 - Mental Status Change Comments: sleepiness Date Reviewed: 11/01/2017 Reviewed by: Jodie Calderón RN - Fully Assessed Reason for Visit: New Patient [172] Cmt: left 5th toe Primary Visit Diagnosis:Gangrene of toe of left foot ([facility]) [I96] Other Visit Diagnoses:PAD (peripheral artery disease) ([facility]) [I73.9] Type 2 diabetes mellitus with diabetic neuropathy, unspecified whether keno terminal operator insulin use ([facility]) [E11.40] Order(s):XR FOOT GENERAL 3V AP/LAT/OBL LT [7754314] Order #: [id number] FUTURE PVR ANK PRESS [facility] [[id number]] Order #: [id number] FUTURE Prescriptions as of 11/01/2017 Sig: SIMETHICONE 125 MG CHEWABLE T* Take 1 tablet by mouth every * SUMATRIPTAN 50 MG TABLET 50mg by mouth as needed for m* ACETAMINOPHEN ER 650 MG TABLE* Take 2 tablets by mouth twice* NAPROXEN 500 MG TABLET Take 1 tablet by mouth twice * OMEPRAZOLE 20 MG CAPSULE,GRABIEL* Take 1 capsule by mouth daily* DIPHENHYDRAMINE 50 MG CAPSULE Take 1 capsule by mouth every* BUPROPION XL 150 MG TAB Take 1 tablet by mouth once d* MOMETASONE 0.1 % TOPICAL CREAM Apply 1 application to affect* DICYCLOMINE 20 MG TABLET Take 1 tablet by mouth three * LISINOPRIL 10 MG-HYDROCHLOROT* Take 1 tablet by mouth every * AMLODIPINE 10 MG TABLET Take 1 tablet by mouth once d* PIOGLITAZONE 15 MG TABLET Take 1 tablet by mouth once d* SERTRALINE 100 MG TABLET Take 1 tablet by mouth once d* BUSPIRONE 10 MG TABLET Take 1 tablet by mouth three * NYSTATIN 100,000 UNIT/GRAM TO* Apply 1 application to affect* FUROSEMIDE 20 MG TABLET Take 1 tablet by mouth once d* Patient not taking: Reported on 10/17/2017 GLIMEPIRIDE 2 MG TABLET Take 1 tablet by mouth daily * Patient not taking: Reported on 10/17/2017 Problem List As Of Date 11/01/2017 Noted Resolved Stroke/Cerebrovascular Accident [I63.9] INVALID FOR* Lumbago-Sciatica due to Displacement of Lumbar *INVALID FOR* DDD (Degenerative Disc Disease), Lumbar [M51.36]INVALID FOR* Cannabis Abuse [F12.10] INVALID FOR* Lichen planus [L43.9] INVALID FOR* Lumbar facet arthropathy [M46.96] INVALID FOR* Essential hypertension, benign [I10] INVALID FOR* Nasal obstruction [J34.89] INVALID FOR* Myofascial pain [M79.1] INVALID FOR* Diabetic nephropathy with proteinuria (HCC) [E1*INVALID FOR* Hyperlipidemia with target LDL less than 100 [E*INVALID FOR* History of cerebrovascular accident (CVA) with *INVALID FOR* Urge incontinence of urine [N39.41] INVALID FOR* 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 Encounter Status:Closed by ALLIE POMPA DPM on 11/01/17 PROGRESS Observed: 10/17/2017 Status: COMPLETED Source: [place] 2:[address] [facility] [place] REPOSITORY HNO ID: [id number] Author: Ivy Jimenez III Service: (none) Author Type: Physician Type: Progress Notes Filed: 10/17/2017 6:45 PM Note Text: SUBJECTIVE: This is a 61 year old female that is here today for ER Follow Up. 1. 09/13/17: report reviewed. for eval of severe NICHOLS. CT brain = old infarct in white matter. Er record reported that the NICHOLS resolved with benadryl and compazine, but pt states that that medication made my back pain and NICHOLS worse. 2. ch low back pain radiating down LLE. Present for yrs. Course of PT yrs ago when she lived in [place]. Does not do any home exercises. MRI LS spine 2010 below: 3. depression on zoloft 100mg daily. Ch NICHOLS and back pain. Still depressed. Requires son to push her in a wheelchair though he is sure that she could walk. 4. ch abd pain . Metformin caused diarrhea so she stopped it. Takes excedrin 2/day to treat NICHOLS, w/o benefit. Bentyl not helpful. Lots of belching and gas in spite of Gasx 3/day 5. generalized itching, including scalp for past 3 wks, but she had this when she went to er 09/13. She was dx as possible scabies, but she refuses to take the permethrin because she refuses to believe that she has scabies. Generalized itching leading to petechial rash on forearms. 6. diabetes mellitus II--poor diet and little activity. DATE OF EXAM: Oct 19 2010 ?3:23PM ? [facility] ? 0561 ?- ?MRI LUMBAR SPINE WWO CONTRAST ?/ PROCEDURE REASON: DDD (DEGENERATIVE DISC DISEASE), LUMBAR * * * * Physician Interpretation * * * * RESULT: HISTORY: ?Degenerative disk disease, low back pain, cervical cancer, left sided radiculopathy COMPARISON: None. ? ? EXAMINATION: Routine lumbosacral spine protocol without and with gadolinium. Intravenous Magnevist injected 16 cc RESULTS: Counting reference: ?Lumbosacral junction. ?For the purposes of this report, L5S1 is considered the last lumbar type disc space and L4-5 is considered the level of the iliac crest. ?Transitional vertebra is counted as L5 Alignment: ? ?There is very minimal antral listhesis L4-L5 There is mild levoscoliosis upper lumbar spine Bone marrow signal/fracture: ? ?No evidence of pathologic marrow infiltration. ?No evidence of prior fracture. Conus: ? ?The conus is within normal limits of signal intensity and morphology. ?The conus terminates normally at L1. Paraspinal soft tissues: ? ?Paraspinal soft tissues are unremarkable. Lower thoracic spine: ?Visualized lower thoracic canal and foramina are patent. L1-L2: ? ?Canal and foramina are patent. L2-L3: ? ?Canal and foramina are patent L3-L4: ? ?Bilateral mild facet joint hypertrophy. L4-L5: ? ?Mild disk degeneration with a mild right and severe left facet joint hypertrophy. ?There is minimal right and mild left foramina encroachment. ?There is mild reactive particles change at L4-L5. ?Mild relative central spinal canal stenosis L5-S1: ? ?There is mild disk degeneration with minimal posterior disk bulging, there is moderate left facet joint hypertrophy. ?Mild left foramina encroachment Sacrum and iliac wings: ? ?The visualized sacrum and iliac wings are within normal limits. ?The presacral soft tissues are normal in appearance. 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 PAST MEDICAL HISTORY Diagnosis Date - Anxiety - Benign hypertension 08/07/2015 - Cannabis abuse 02/23/2010 - Carotid stenosis 03/11/2010 - Cervical cancer (HCC) - CVA (cerebral infarction) 11/2009 L hemiparesis and decreased coordination - DDD (degenerative disc disease), lumbar 02/23/2010 - Diabetes (HCC) - Diabetes mellitus (HCC) 02/23/2010 - Diabetic nephropathy with proteinuria (HCC) 03/18/2014 - Environmental allergies - Essential hypertension, benign 06/22/2012 - Hyperlipidemia - Hyperlipidemia LDL goal < 100 03/18/2014 - Lichen planus 11/09/2010 - Lumbago-sciatica due to displacement of lumbar intervertebral disc 02/23/2010 - Moderate single current episode of major depressive disorder ([facility]) 08/07/2015 - Spastic neurogenic bladder 05/14/2015 - Type 2 diabetes mellitus with microalbuminuria, without long-term current use of insulin ([facility]) 05/08/2017 Current Outpatient Prescriptions on File Prior to Visit: mometasone (ELOCON) 0.1 % cream Apply 1 application to affected area once daily. GAS RELIEF 125 mg chewable tablet Take 1 tablet by mouth three times daily before meals. dicyclomine (BENTYL) 20 mg tablet Take 1 tablet by mouth three times daily before meals. ibuprofen (MOTRIN) 200 mg tablet TAKE 1 TO 2 TABLETS BY MOUTH EVERY 6 HOURS NEEDED FOR PAIN WITH FOOD lisinopril-hydrochlorothiazide (PRINZIDE,ZESTORETIC) 10-12.5 mg per tablet Take 1 tablet by mouth every morning. amLODIPine (NORVASC) 10 mg tablet Take 1 tablet by mouth once daily. sertraline (ZOLOFT) 100 mg tablet Take 1 tablet by mouth once daily. busPIRone (BUSPAR) 10 mg tablet Take 1 tablet by mouth three times daily. nystatin (MYCOSTATIN) powder Apply 1 application to affected area twice daily. loratadine (CLARITIN) 10 mg tablet Take 1 tablet by mouth once daily as needed. FOR ALLERGY SYMPTOMS furosemide (LASIX) 20 mg tablet Take 1 tablet by mouth once daily. (Patient not taking: Reported on 10/17/2017 ) metFORMIN (GLUCOPHAGE) 500 mg tablet Take 1 tablet by mouth twice daily with meals. . (Patient not taking: Reported on 10/17/2017 ) glimepiride (AMARYL) 2 mg tablet Take 1 tablet by mouth daily with breakfast. (Patient not taking: Reported on 10/17/2017 ) pioglitazone (ACTOS) 15 mg tablet Take 1 tablet by mouth once daily. (Patient not taking: Reported on 10/17/2017 ) No current facility-administered medications on file prior to visit. FAMILY HISTORY Problem Relation Age of Onset - Coronary Artery Disease Father - Stroke Mother - Diabetes Maternal Grandmother Social History Substance Use Topics - Smoking status: Current Every Day Smoker Packs/day: 1.00 Types: Cigarettes - Smokeless tobacco: Never Used Comment: less then a pack. Has smoked since she was 15. - Alcohol use No BP 137/86 Pulse 94 Resp 24 Wt 58.5 kg (129 lb) BMI 25.19 kg/m? OBJECTIVE: APPEARANCE Well appearing, alert, in acute distress , well- hydrated, well nourished, worried/flat affect., frequent itching and belching NECK Supple, no adenopathy; thyroid symmetric, normal size, no bruits HEART RRR with normal S1 and S2, no murmurs, no gallops, no JVD appreciated LUNG clear to auscultation ABDOMEN bowel sounds normoactive, no bruits, soft, non-tender, non-distended, without organomegaly or palpable masses, mild tenderness in epigastrium and right upper quadrant without rigidity, rebound, mass, organomegaly BACK: Mild tenderness in palpating the LS spine midline. Forward flexion to the knees causes some complaint of pain in the LS spine midline, but hyperextension causes a more intense pain in this area. No radiation of pain NEURO Awake, alert and oriented x 3, Normal gait and No involuntary motions. Extremities: No pedal edema Feet: Shoes and socks removed, normal distal pulses, sensitive to 10 gm monofilament and Small callus sole of the left foot overlying the fifth MTP joint. Superficial ulcer with black tissue overlying pad of left fifth toe SKIN superficial petechiae on the extensor surfaces of the forearms bilaterally. Multiple sores from excoriation on the upper arms, forearms, upper back, lateral aspect of the lower legs bilaterally. Multiple scars upper back. Several excoriations in the scalp. No evidence of lice. Superficial ulcer with black tissue overlying on the pad of the left fifth toe Appearance: unkempted, disheveled, cooperative and pleasant Behavior: poor eye contact Speech: fluent and coherent Mood: depressed Affect: constricted Perceptions: none Thought process: goal directed Thought Content: preoccupations with NICHOLS, abd pain, itching, scalp sores Intelligence level: normal Insight: fair Judgment: fair ASSESSMENT: depression--poor control Possible migraine headache Excedrin-induced gastritis Lumbar facet arthropathy with left sciatica Chronic itching Diabetic L foot ulcer, superficial Diabetes mellitus?poor control Hypertension?at goal Hyperlipidemia with goal LDL less than 100 PLAN: healthy diabetic diet and regular exercise eat less sugar, bread, potato, pasta, rice, corn, corn syrup, saturated fats labs as ordered imitrex 50mg as needed for migraine headache, may repeat every 2 hrs as needed for migraine (max 4 doses /day and 9 doses/wk) Benadryl 50mg four times/day as needed for itching prilosec 20mg every AM for stomach pain tylenol arthritis 1300mg + naproxen 500mg twice/day as needed for low back pain PT evaluation and treat for back pain LS spine xray refer to podiatry add wellbutrin XL 150mg every AM for depression follow up with Anthony High CNP in 6 wks 60 min visit SHEA Addison MD, III MD CNOV Observed: 10/17/2017 Status: COMPLETED Source: [place] 2:40 PM [facility] DAVINA GREEN ([id number]) 1955 F Date Time Provider Department 10/17/17 2:40 PM IVY JIMENEZ III During your visit today, we recorded the following information about you: Pulse Respiration Blood pressure Weight 94/minute 24/minute 137/86 58.5 kg Ivy Jimenez III MD 10/17/2017 6:45 PM Signed SUBJECTIVE: This is a 61 year old female that is here today for ER Follow Up. 1. 09/13/17: report reviewed. for eval of severe NICHOLS. CT brain = old infarct in white matter. Er record reported that the NICHOLS resolved with benadryl and compazine, but pt states that that medication made my back pain and NICHOLS worse. 2. ch low back pain radiating down LLE. Present for yrs. Course of PT yrs ago when she lived in [place]. Does not do any home exercises. MRI LS spine 2010 below: 3. depression on zoloft 100mg daily. Ch NICHOLS and back pain. Still depressed. Requires son to push her in a wheelchair though he is sure that she could walk. 4. ch abd pain . Metformin caused diarrhea so she stopped it. Takes excedrin 2/day to treat NICHOLS, w/o benefit. Bentyl not helpful. Lots of belching and gas in spite of Gasx 3/day 5. generalized itching, including scalp for past 3 wks, but she had this when she went to er 09/13. She was dx as possible scabies, but she refuses to take the permethrin because she refuses to believe that she has scabies. Generalized itching leading to petechial rash on forearms. 6. diabetes mellitus II--poor diet and little activity. DATE OF EXAM: Oct 19 2010 ?3:23PM ? [facility] ? 0561 ?- ?MRI LUMBAR SPINE WWO CONTRAST ?/ PROCEDURE REASON: DDD (DEGENERATIVE DISC DISEASE), LUMBAR * * * * Physician Interpretation * * * * RESULT: HISTORY: ?Degenerative disk disease, low back pain, cervical cancer, left sided radiculopathy COMPARISON: None. ? ? EXAMINATION: Routine lumbosacral spine protocol without and with gadolinium. Intravenous Magnevist injected 16 cc RESULTS: Counting reference: ?Lumbosacral junction. ?For the purposes of this report, L5S1 is considered the last lumbar type disc space and L4-5 is considered the level of the iliac crest. ?Transitional vertebra is counted as L5 Alignment: ? ?There is very minimal antral listhesis L4-L5 There is mild levoscoliosis upper lumbar spine Bone marrow signal/fracture: ? ?No evidence of pathologic marrow infiltration. ?No evidence of prior fracture. Conus: ? ?The conus is within normal limits of signal intensity and morphology. ?The conus terminates normally at L1. Paraspinal soft tissues: ? ?Paraspinal soft tissues are unremarkable. Lower thoracic spine: ?Visualized lower thoracic canal and foramina are patent. L1-L2: ? ?Canal and foramina are patent. L2-L3: ? ?Canal and foramina are patent L3-L4: ? ?Bilateral mild facet joint hypertrophy. L4-L5: ? ?Mild disk degeneration with a mild right and severe left facet joint hypertrophy. ?There is minimal right and mild left foramina encroachment. ?There is mild reactive particles change at L4-L5. ?Mild relative central spinal canal stenosis L5-S1: ? ?There is mild disk degeneration with minimal posterior disk bulging, there is moderate left facet joint hypertrophy. ?Mild left foramina encroachment Sacrum and iliac wings: ? ?The visualized sacrum and iliac wings are within normal limits. ?The presacral soft tissues are normal in appearance. 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 PAST MEDICAL HISTORY Diagnosis Date - Anxiety - Benign hypertension 08/07/2015 - Cannabis abuse 02/23/2010 - Carotid stenosis 03/11/2010 - Cervical cancer (HCC) - CVA (cerebral infarction) 11/2009 L hemiparesis and decreased coordination - DDD (degenerative disc disease), lumbar 02/23/2010 - Diabetes (HCC) - Diabetes mellitus ([facility]) 02/23/2010 - Diabetic nephropathy with proteinuria ([facility]) 03/18/2014 - Environmental allergies - Essential hypertension, benign 06/22/2012 - Hyperlipidemia - Hyperlipidemia LDL goal < 100 03/18/2014 - Lichen planus 11/09/2010 - Lumbago-sciatica due to displacement of lumbar intervertebral disc 02/23/2010 - Moderate single current episode of major depressive disorder ([facility]) 08/07/2015 - Spastic neurogenic bladder 05/14/2015 - Type 2 diabetes mellitus with microalbuminuria, without long-term current use of insulin ([facility]) 05/08/2017 Current Outpatient Prescriptions on File Prior to Visit: mometasone (ELOCON) 0.1 % cream Apply 1 application to affected area once daily. GAS RELIEF 125 mg chewable tablet Take 1 tablet by mouth three times daily before meals. dicyclomine (BENTYL) 20 mg tablet Take 1 tablet by mouth three times daily before meals. ibuprofen (MOTRIN) 200 mg tablet TAKE 1 TO 2 TABLETS BY MOUTH EVERY 6 HOURS NEEDED FOR PAIN WITH FOOD lisinopril-hydrochlorothiazide (PRINZIDE,ZESTORETIC) 10-12.5 mg per tablet Take 1 tablet by mouth every morning. amLODIPine (NORVASC) 10 mg tablet Take 1 tablet by mouth once daily. sertraline (ZOLOFT) 100 mg tablet Take 1 tablet by mouth once daily. busPIRone (BUSPAR) 10 mg tablet Take 1 tablet by mouth three times daily. nystatin (MYCOSTATIN) powder Apply 1 application to affected area twice daily. loratadine (CLARITIN) 10 mg tablet Take 1 tablet by mouth once daily as needed. FOR ALLERGY SYMPTOMS furosemide (LASIX) 20 mg tablet Take 1 tablet by mouth once daily. (Patient not taking: Reported on 10/17/2017 ) metFORMIN (GLUCOPHAGE) 500 mg tablet Take 1 tablet by mouth twice daily with meals. . (Patient not taking: Reported on 10/17/2017 ) glimepiride (AMARYL) 2 mg tablet Take 1 tablet by mouth daily with breakfast. (Patient not taking: Reported on 10/17/2017 ) pioglitazone (ACTOS) 15 mg tablet Take 1 tablet by mouth once daily. (Patient not taking: Reported on 10/17/2017 ) No current facility-administered medications on file prior to visit. FAMILY HISTORY Problem Relation Age of Onset - Coronary Artery Disease Father - Stroke Mother - Diabetes Maternal Grandmother Social History Substance Use Topics - Smoking status: Current Every Day Smoker Packs/day: 1.00 Types: Cigarettes - Smokeless tobacco: Never Used Comment: less then a pack. Has smoked since she was 15. - Alcohol use No BP 137/86 Pulse 94 Resp 24 Wt 58.5 kg (129 lb) BMI 25.19 kg/m? OBJECTIVE: APPEARANCE Well appearing, alert, in acute distress , well- hydrated, well nourished, worried/flat affect., frequent itching and belching NECK Supple, no adenopathy; thyroid symmetric, normal size, no bruits HEART RRR with normal S1 and S2, no murmurs, no gallops, no JVD appreciated LUNG clear to auscultation ABDOMEN bowel sounds normoactive, no bruits, soft, non-tender, non-distended, without organomegaly or palpable masses, mild tenderness in epigastrium and right upper quadrant without rigidity, rebound, mass, organomegaly BACK: Mild tenderness in palpating the LS spine midline. Forward flexion to the knees causes some complaint of pain in the LS spine midline, but hyperextension causes a more intense pain in this area. No radiation of pain NEURO Awake, alert and oriented x 3, Normal gait and No involuntary motions. Extremities: No pedal edema Feet: Shoes and socks removed, normal distal pulses, sensitive to 10 gm monofilament and Small callus sole of the left foot overlying the fifth MTP joint. Superficial ulcer with black tissue overlying pad of left fifth toe SKIN superficial petechiae on the extensor surfaces of the forearms bilaterally. Multiple sores from excoriation on the upper arms, forearms, upper back, lateral aspect of the lower legs bilaterally. Multiple scars upper back. Several excoriations in the scalp. No evidence of lice. Superficial ulcer with black tissue overlying on the pad of the left fifth toe Appearance: unkempted, disheveled, cooperative and pleasant Behavior: poor eye contact Speech: fluent and coherent Mood: depressed Affect: constricted Perceptions: none Thought process: goal directed Thought Content: preoccupations with NICHOLS, abd pain, itching, scalp sores Intelligence level: normal Insight: fair Judgment: fair ASSESSMENT: depression--poor control Possible migraine headache Excedrin-induced gastritis Lumbar facet arthropathy with left sciatica Chronic itching Diabetic L foot ulcer, superficial Diabetes mellitus?poor control Hypertension?at goal Hyperlipidemia with goal LDL less than 100 PLAN: healthy diabetic diet and regular exercise eat less sugar, bread, potato, pasta, rice, corn, corn syrup, saturated fats labs as ordered imitrex 50mg as needed for migraine headache, may repeat every 2 hrs as needed for migraine (max 4 doses /day and 9 doses/wk) Benadryl 50mg four times/day as needed for itching prilosec 20mg every AM for stomach pain tylenol arthritis 1300mg + naproxen 500mg twice/day as needed for low back pain PT evaluation and treat for back pain LS spine xray refer to podiatry add wellbutrin XL 150mg every AM for depression follow up with Anthony High CNP in 6 wks 60 min visit SHEA Addison MD, III MD Frank A Cebul, III MD 10/17/2017 3:15 PM Signed PLAN: healthy diabetic diet and regular exercise eat less sugar, bread, potato, pasta, rice, corn, corn syrup, saturated fats labs as ordered imitrex 50mg as needed for migraine headache, may repeat every 2 hrs as needed for migraine (max 4 doses /day and 9 doses/wk) Benadryl 50mg four times/day as needed for itching prilosec 20mg every AM for stomach pain tylenol arthritis 1300mg + naproxen 500mg twice/day as needed for low back pain PT evaluation and treat for back pain LS spine xray refer to podiatry add wellbutrin XL 150mg every AM for depression follow up with Anthony High CNP in 6 wks Ivy Jimenez III MD Referring Provider: SELF [200] Allergies As of Date: 10/17/2017 Noted Allergy Reaction LIPITOR (ATORVASTATIN CALCIUM) 02/23/2010 14 - Other: See Comments Comments: fatigue PENICILLINS 01/28/2010 4 - Hives PRAVACHOL (PRAVASTATIN SODIUM) 03/04/2010 5 - Intolerance Comments: Fatigue, loss of appetite. PROZAC (FLUOXETINE HCL) 08/07/2015 1 - Mental Status Change Comments: sleepiness Date Reviewed: 10/17/2017 Reviewed by: Amelia Olson LPN - Fully Assessed Reason for Visit: Recheck [92] Cmt: Follow up Primary Visit Diagnosis:DDD (degenerative disc disease), lumbar [M51.36] Other Visit Diagnoses:Lichen planus [L43.9] Lumbar facet arthropathy (HCC) [M46.96] Essential hypertension, benign [I10] Type 2 diabetes mellitus with microalbuminuria, without long-term current use of insulin (HCC) [E11.29, R80.9] Intractable migraine without status migrainosus, unspecified migraine type [G43.919] Itching [L29.9] Chronic gastritis with bleeding, unspecified gastritis type [K29.51] Hyperlipidemia LDL goal <100 [E78.5] Diabetic ulcer of toe of left foot associated with type 2 diabetes mellitus, limited to breakdown of skin (HCC) [E11.621, L97.521] Lumbar radiculopathy [M54.16] Order(s):Simethicone (GAS RELIEF) 125 mg chewable tabletTake 1 tablet by mouth every 6 hours as needed.Disp: 120 tabletRfl: 11 SUMAtriptan (IMITREX) 50 mg [id number] by mouth as needed for migraine headache; may repeat every 2 hrs as needed for migraine(max 4/day and 9/mo)Disp: 9 tabletRfl: 5 acetaminophen (TYLENOL ARTHRITIS PAIN) 650 mg CR tabletTake 2 tablets by mouth twice daily as needed for Pain.Disp: 120 tabletRfl: 11 naproxen (NAPROSYN) 500 mg tabletTake 1 tablet by mouth twice daily as needed for Pain. Take with food.Disp: 60 tabletRfl: 11 omeprazole (PRILOSEC) 20 mg capsuleTake 1 capsule by mouth daily before breakfast. 1/2 hr before meal.Disp: 30 capsuleRfl: 11 diphenhydrAMINE (BENADRYL) 50 mg capsuleTake 1 capsule by mouth every 6 hours as needed for Itching/Rash.Disp: 120 capsuleRfl: 2 buPROPion XL (WELLBUTRIN XL) 150 mg 24 hr tabletTake 1 tablet by mouth once daily.Disp: 30 tabletRfl: 11 ALBUMIN/CREAT RATIO RND UR [SQUACR] Order #: [id number] FUTURE HGB A1C [CUECV1X] Order #: [id number] FUTURE LIPID PANEL BASIC [SQLIPB] Order #: [id number] FUTURE COMP METABOLIC PANEL [SQCMP] Order #: [id number] FUTURE CONSULT TO PODIATRY [9070] Order #: [id number]: 1 XR LUMBAR GENERAL 3V AP/LAT/L5-S1 [1635958] Order #: [id number] FUTURE CONSULT TO PHYSICAL THERAPY [9050] Order #: [id number]: 1 Prescriptions as of 10/17/2017 Sig: SIMETHICONE 125 MG CHEWABLE T* Take 1 tablet by mouth every * MOMETASONE 0.1 % TOPICAL CREAM Apply 1 application to affect* DICYCLOMINE 20 MG TABLET Take 1 tablet by mouth three * LISINOPRIL 10 MG-HYDROCHLOROT* Take 1 tablet by mouth every * AMLODIPINE 10 MG TABLET Take 1 tablet by mouth once d* SERTRALINE 100 MG TABLET Take 1 tablet by mouth once d* BUSPIRONE 10 MG TABLET Take 1 tablet by mouth three * NYSTATIN 100,000 UNIT/GRAM TO* Apply 1 application to affect* SUMATRIPTAN 50 MG TABLET 50mg by mouth as needed for m* ACETAMINOPHEN ER 650 MG TABLE* Take 2 tablets by mouth twice* NAPROXEN 500 MG TABLET Take 1 tablet by mouth twice * OMEPRAZOLE 20 MG CAPSULE,GRABIEL* Take 1 capsule by mouth daily* DIPHENHYDRAMINE 50 MG CAPSULE Take 1 capsule by mouth every* BUPROPION XL 150 MG TAB Take 1 tablet by mouth once d* FUROSEMIDE 20 MG TABLET Take 1 tablet by mouth once d* Patient not taking: Reported on 10/17/2017 GLIMEPIRIDE 2 MG TABLET Take 1 tablet by mouth daily * Patient not taking: Reported on 10/17/2017 PIOGLITAZONE 15 MG TABLET Take 1 tablet by mouth once d* Patient not taking: Reported on 10/17/2017 Problem List As Of Date 10/17/2017 Noted Resolved Stroke/Cerebrovascular Accident [I63.9] INVALID FOR* Lumbago-Sciatica due to Displacement of Lumbar *INVALID FOR* DDD (Degenerative Disc Disease), Lumbar [M51.36]INVALID FOR* Cannabis Abuse [F12.10] INVALID FOR* Lichen planus [L43.9] INVALID FOR* Lumbar facet arthropathy [M46.96] INVALID FOR* Essential hypertension, benign [I10] INVALID FOR* Nasal obstruction [J34.89] INVALID FOR* Myofascial pain [M79.1] INVALID FOR* Diabetic nephropathy with proteinuria (HCC) [E1*INVALID FOR* Hyperlipidemia with target LDL less than 100 [E*INVALID FOR* History of cerebrovascular accident (CVA) with *INVALID FOR* Urge incontinence of urine [N39.41] INVALID FOR* 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 Other instructions from your clinician: PLAN: healthy diabetic diet and regular exercise eat less sugar, bread, potato, pasta, rice, corn, corn syrup, saturated fats labs as ordered imitrex 50mg as needed for migraine headache, may repeat every 2 hrs as needed for migraine (max 4 doses /day and 9 doses/wk) Benadryl 50mg four times/day as needed for itching prilosec 20mg every AM for stomach pain tylenol arthritis 1300mg + naproxen 500mg twice/day as needed for low back pain PT evaluation and treat for back pain LS spine xray refer to podiatry add wellbutrin XL 150mg every AM for depression follow up with Anthony High CNP in 6 wks Ivy Jimenez III MD Prescriptions ordered this encounter Disp Refills Start End SIMETHICONE 125 MG CHEWABLE TABLET 120 * 11 10/17/2017 Route: ORAL Sig: Take 1 tablet by mouth every 6 hours as needed. SUMATRIPTAN 50 MG TABLET 9 ta* 5 10/17/2017 Simg by mouth as needed for migraine headache; may repeat every 2 hrs as needed for migraine(max 4/day and 9/mo) ACETAMINOPHEN ER 650 MG TABLET,EXTEN* 120 * 11 10/17/2017 Route: ORAL Sig: Take 2 tablets by mouth twice daily as needed for Pain. NAPROXEN 500 MG TABLET 60 t* 11 10/17/2017 Route: ORAL Sig: Take 1 tablet by mouth twice daily as needed for Pain. Take with food. OMEPRAZOLE 20 MG CAPSULE,DELAYED REL* 30 c* 11 10/17/2017 Route: ORAL Sig: Take 1 capsule by mouth daily before breakfast. 1/2 hr before meal. DIPHENHYDRAMINE 50 MG CAPSULE 120 * 2 10/17/2017 Route: ORAL Sig: Take 1 capsule by mouth every 6 hours as needed for Itching/Rash. BUPROPION XL 150 MG TAB 30 t* 11 10/17/2017 Route: ORAL Sig: Take 1 tablet by mouth once daily. Medications Discontinued During This Encounter metFORMIN (GLUCOPHAGE) 500 mg tablet 60 t* 11 11/04/2016 10/17/2017 Route: ORAL Sig: Take 1 tablet by mouth twice daily with meals. . Patient not taking: Reported on 10/17/2017 Disc: Adverse Reaction loratadine (CLARITIN) 10 mg tablet 30 t* 12 06/10/2016 10/17/2017 Route: ORAL Sig: Take 1 tablet by mouth once daily as needed. FOR ALLERGY SYMPTOMS Disc: Clinical Decision ibuprofen (MOTRIN) 200 mg tablet 100 * 1 05/02/2017 10/17/2017 Cmt: Med-sync patient. If too soon, we will put new RX on hold for next cycle. Sig: TAKE 1 TO 2 TABLETS BY MOUTH EVERY 6 HOURS NEEDED FOR PAIN WITH FOOD Disc: Clinical Decision GAS RELIEF 125 mg chewable tablet 90 t* 3 08/21/2017 10/17/2017 Cmt: Med-sync patient. If too soon, we will put new RX on hold for next cycle. Sig: Take 1 tablet by mouth three times daily before meals. Disc: Reason for discontinue is not on file. Encounter Status:Closed by IVY JIMENEZ III, MD on 10/17/17 CNPTOUTREACH Observed: 10/03/2017 Status: COMPLETED Source: [place] 12:00 AM [facility] REPOSITORY Patient Outreach (INTMWH) DAVINA GREEN ([id number]) 1955 F Date Time Provider Department 10/03/17 IVY JIMENEZ III [facility] During your visit today, we recorded the following information about you: Allergies As of Date: 10/03/2017 Noted Allergy Reaction DELETED: LIPITOR (ATORVASTATIN CA*02/23/2010 14 - Other: See Comments Comments: fatigue PENICILLINS 01/28/2010 4 - Hives PRAVACHOL (PRAVASTATIN SODIUM) 03/04/2010 5 - Intolerance Comments: Fatigue, loss of appetite. PROZAC (FLUOXETINE HCL) 08/07/2015 1 - Mental Status Change Comments: sleepiness Date Reviewed: 11/04/2016 Reviewed by: Lia Ashby Ma - Fully Assessed Visit Diagnosis:Medication management [Z79.899] Order(s):ALBUMIN/CREAT RATIO RND UR [SQUACR] Order #: [id number] FUTURE BASIC METABOLIC PNL [SQBMP] Order #: [id number] FUTURE HGB A1C [KURBZ6P] Order #: [id number] FUTURE LIPID PANEL BASIC [SQLIPB] Order #: [id number] FUTURE Prescriptions as of 10/03/2017 Sig: X MOMETASONE 0.1 % TOPICAL CREAM Apply 1 application to affect* X GAS RELIEF 125 MG CHEWABLE TA* Take 1 tablet by mouth three * X DICYCLOMINE 20 MG TABLET Take 1 tablet by mouth three * X IBUPROFEN 200 MG TABLET TAKE 1 TO 2 TABLETS BY MOUTH * X LISINOPRIL 10 MG-HYDROCHLOROT* Take 1 tablet by mouth every * X AMLODIPINE 10 MG TABLET Take 1 tablet by mouth once d* X FUROSEMIDE 20 MG TABLET Take 1 tablet by mouth once d* Patient not taking: Reported on 10/17/2017 X METFORMIN 500 MG TABLET Take 1 tablet by mouth twice * Patient not taking: Reported on 10/17/2017 X GLIMEPIRIDE 2 MG TABLET Take 1 tablet by mouth daily * Patient not taking: Reported on 10/17/2017 X PIOGLITAZONE 15 MG TABLET Take 1 tablet by mouth once d* X SERTRALINE 100 MG TABLET Take 1 tablet by mouth once d* X BUSPIRONE 10 MG TABLET Take 1 tablet by mouth three * X NYSTATIN 100,000 UNIT/GRAM TO* Apply 1 application to affect* X LORATADINE 10 MG TABLET Take 1 tablet by mouth once d* Problem List As Of Date 10/03/2017 Noted Resolved Stroke/Cerebrovascular Accident [I63.9] INVALID FOR* Lumbago-Sciatica due to Displacement of Lumbar *INVALID FOR* DDD (Degenerative Disc Disease), Lumbar [M51.36]INVALID FOR* Cannabis Abuse [F12.10] INVALID FOR* Lichen planus [L43.9] INVALID FOR* More... Lumbar facet arthropathy [M47.816] INVALID FOR* Essential hypertension, benign [I10] INVALID FOR* More... Nasal obstruction [J34.89] INVALID FOR* Myofascial pain [M79.18] INVALID FOR* Diabetic nephropathy with proteinuria (HCC) [E1*INVALID FOR* Hyperlipidemia with target LDL less than 100 [E*INVALID FOR* More... History of cerebrovascular accident (CVA) with *INVALID FOR* More... 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 Encounter Status:Closed by GRETCHEN PRODUSER on 03/09/18 EMERGENCY DEPARTMENT Observed: 09/13/2017 Status: F Source: [place] SUMMARY 10:35 PM [facility] REPOSITORY [facility] Medical Records Department [address] [place] [address] Emergency Department Summary 09/13/17 2131 MR#: [id number] Acct: [id number] Name: DAVINA GREEN Rep #: [id number] : 1955 61 From: See Mariano MD PCP: Ivy Jimenez III, MD Status: DEP ER - ER Visit Summary Date of Service: 09/13/17 Chief Complaint: Headache, rash History of Present Illness: The patient is a 61 F with headache and rash. Patient states over the past 3 days, she has had gradually progressive headache. She states similar to prior that she has had in the past. The patient does have a history of prior stroke, but states this feels very different. She is also concerned because she has a rash. She states on her arms and back, she has had central red areas that have been increasingly itchy. She denies any definitive exposure. She denies any fever or chills. The patient is a diabetic and does have history of hypertension, but states she has been compliant with her medications. Physical Examination: Well-appearing patient is in no acute distress. Head is normocephalic, atraumatic. Pupils equal round reactive, extraocular muscles intact. There is no temporal artery tenderness. There is no vesicular rash. Neck supple. Kernig's and Brudzinski's are negative. Heart regular rate and rhythm. Lungs clear, chest nontender. Abdomen soft, nontender, nondistended. Neuro exam displays no focal or lateralizing deficit. 2+ symmetric lower extremity reflexes. No clonus. No ataxia or gait abnormality. Skin does show multiple excoriated areas on the dorsal surface of both arms and upper shoulders. It is consistent with scabies. Test Results: [] Emergency Department Course and Treatment: The patient has a benign neurologic examination. However, given her age I did obtain a head CT. This is unremarkable. She has no meningismus. She has no encephalopathy. I do feel this is more migrainous in nature. The patient was treated with Compazine and Benadryl. She had total resolution of her headache. Her rash does seem more consistent with a scabies. She will be treated with permethrin cream. Given the excoriation and erythema, I will add Keflex. She was counseled on concerning symptoms. She will be discharged home. Treatment Plan: [] Disposition: Discharge Impression:. Headache 2. Scabies This note was generated with [employer] dictation software. It may contain incorrect words, spelling, and punctuation that were not noted in review of the chart prior to signing ED Disposition - Plan for ED Patient: Disposition: Home or Assisted Living Chief Complaint: Headache Instructions: ED Headache Migraine, ED Scabies Prescriptions: Cephalexin [Keflex] 500 mg PO Q6 #40 cap Permethrin 5% [Permethrin] 60 gm TOPICAL X1 #1 cream..g. Referrals: Ivy Jimenez III, MD [Primary Care Provider] - What to do if you have Problems For any increased pain, shortness of breath, bleeding, nausea or vomiting, chest pain, or any unexpected problems, contact your Primary Care Provider. Call [facility] ([phone]) or report to the closest Emergency Room. Call 911 if necessary. 09/13/172234 <Electronically signed by See Mariano MD> Date See Mariano MD Cosigner Signature (If Indicated): Date CC: Ivy Jimenez III, MD CBC W/DIFF, AUTOMATED Collected: 09/13/2017 Status: F Source: [place] 8:05 PM [facility] REPOSITORY TYPE CODE TESTS RESULT OUT OF RANGE REFERENCE UNITS LAB L100.1000 4.4-11.0 K/mm3 Normal WBC 10.9 LAB L100.1200 4.2-5.4 M/mm3 Normal RBC 5.04 LAB L100.1300 12.0-15.0 g/dl High HGB 15.1 LAB L100.1400 37-47 % Normal HCT 42.5 LAB L100.1500 81-99 fL Normal MCV 84.3 LAB L100.1600 27.0-32.0 pg Normal MCH 30.0 LAB L100.1700 32-36 g/gl Normal MCHC 35.5 LAB L100.1810 11.6-14.6 % Normal RDW CV 13.5 LAB L100.1820 35.1-43.9 fl Normal RDW SD 41.7 LAB L100.1900 150-450 K/mm3 Normal PLT 368 LAB L100.2000 6.2-12.0 fl Normal MPV 10.1 LAB L100.2100 47-70 % Normal NEUT% 61.1 LAB L100.2200 19-41 % Normal LY% 28.6 LAB L100.2300 0-10 % Normal MONO% 6.5 LAB L100.2400 0-5 % Normal EO% 2.9 LAB L100.2500 0-1 % Normal BASO% 0.6 LAB L100.2550 0.0-0.9 % Normal IM GRAN % 0.300 Result Comment: IG% - Immature Granulocytes (promyelocytes, myelocytes and metamyelocytes) > 1% indicates that a LEFT SHIFT is Present. LAB L100.2620 2.0-7.7 X10 3/uL Normal Absolute Neut 6.7 LAB L100.2720 0.83-4.51 X10 3/ul Normal Absolute Lymph 3.11 Performed By: #### L100.0100 #### [facility] [address] [place], [place], [address] BASIC METABOLIC Collected: 09/13/2017 Status: F Source: [place] PROFILE (BMP) 8:05 PM [facility] REPOSITORY TYPE CODE TESTS RESULT OUT OF RANGE REFERENCE UNITS LAB L501.0100 74-106 mg/dL High GLU 395 Result Comment: Glucose result greater than or equal to 200 mg/dL suggests DIABETES MELLITUS per A.D.A. criteria. Please note revised GLUCOSE reference range effective 2017. LAB L501.1000 7-18 mg/dL Normal BUN 17 LAB L501.1100 0.55-1.02 mg/dL High CREAT,SERUM 1.18 Result Comment: The validity of the calculated GFR AND GFRAA in patients over 70 years has not been determined. Clinical correlation is essential. LAB L501.1110 >60 mL/min Low EST GFR 49 Result Comment: Non- GFR Calc LAB L501.1115 >60 mL/min Normal EST GFR - AA 60 Result Comment: GFR Calc LAB L501.1255 ml/min Normal Estimated CRCL 35.96 LAB L501.1300 10-20 RATIO Normal BUN/CRE 14.4 LAB L501.2200 8.5-10 mg/dL Normal .1 CA 8.7 LAB L501.5300 136-14 mmol/L Low 5 NA 131 LAB L501.5600 3.5-5. mmol/L Normal 1 K 3.7 LAB L501.5900 98-107 mmol/L Low CL 97 LAB L501.6100 21.0-3 mmol/L Normal 2.0 CO2 25.0 LAB L501.6200 5-15 Normal GAP 9 Performed By: #### L500.2500 #### [facility] [address] [facility] [place], [address] BRAIN/HEAD WITHOUT Observed: 09/13/2017 Status: F Source: [place] CONTRAST 7:55 PM [facility] REPOSITORY [facility] Imaging Services [address] [place] [address] Brain/Head without Contrast MR#: [id number] Acct: [id number] Name: DAVINA GREEN Rep #: [id number] : 1955 F 61 From: Richard Grajeda MD PCP: Ivy Jimenez III, MD Status: REG ER Study: Brain/Head without Contrast Date of Exam: 09/13/17 Exam# [id number] Ordering Dr: See Mariano MD STUDY: CT BRAIN WITHOUT CONTRAST REASON FOR EXAM: Female, 61 years old. Headache and body rash with history of stroke RADIATION DOSAGE (If Supplied By Facility): CTDIvol = ( 44.99 ) mGy, DLP = ( 779.24 ) mGycm TECHNIQUE: Transaxial CT imaging of the brain was performed without administration of intravenous contrast material. Individualized dose optimization techniques were used for this CT. COMPARISON: None. FINDINGS: Normal soft tissue structures. Normal calvarium. Normal size ventricles and extra-axial spaces for the patient's age. Periventricular white matter ischemic changes are noted.. Normal basal ganglia. Old lacunar infarct of the left thalamus.. Diffuse hypoattenuation high in the right frontal parietal region consistent with old infarct. Normal brainstem. Normal cerebellum. There is no intracranial hemorrhage. There are no findings of an acute ischemic infarction. Normal visualized paranasal sinuses. CT/Brain/Head without Contrast IMPRESSION: Periventricular white matter ischemic changes and old left thalamic infarct as well as old right frontal parietal infarct. No mass or acute bleed. If concern for acute infarct MRI recommended. Electronically Signed: Richard Grajeda MD at 21:08 EDT , Service support , CC: Ivy Jimenez III, MD; See Mariano MD Renewable Energy Technician: Signed ALLERGIES ALLERGIES DATE TYPE / NAME / CODE REACTION SEVERITY SOURCE CODE 05/24/2018 Drug Penicillins/R15824 Swelling [facility] [place] Allergy/41 0476(RXNORM) Formerly [facility] [id number]( Hospital OMED CT) Repository 08/07/2015 DRUG FLUOXETINE HCL Mental Chg [facility] INGREDI/41 Other [place] [id number]( Repository OMED CT) 03/04/2010 DRUG [facility]STATIN [facility]UM [facility] [place] [id number]( Repository OMED CT) 02/23/2010 DRUG ATORVASTATIN OTHER: SEE C [facility] INGREDI/41 CALCIUM Other [place] 1487486( Repository OMED CT) 01/28/2010 Drug PENICILLINS HIVES [facility] Class/4195 Other [place] 16893(SNOM Repository ED CT) NG/0813542 ATORVASTATIN [facility] 06(SNOMED CALCIUM [facility]) Repository NG/9259516 PENICILLINS [facility] 06(SNOMED [facility]) Repository NG/1428150 PRAVASTATIN SODIUM [facility] 06(SNOMED [facility]) Repository NG/0291721 FLUOXETINE HCL [facility] 06(SNOMED [facility]) Repository ENCOUNTERS ENCOUNTERS ADMIT/DISCHARGE ACCOUNT NUMBER ADMITTING ENCOUNTER LOCATION SOURCE CLASS 06/11/2018 [id number] Agyep[place], Ambulatory BMSBuilding: [place] Suresh BMS.[facility] Repository 06/11/2018 [id number] Agyepong, Ambulatory BMSBuilding: [place] Suresh BMS.[facility] Repository 06/11/2018 [id number] Agyepong, Ambulatory BMSBuilding: Reece [place] BMS.[facility] Repository 06/11/2018/06/13/19 [id number] Agyepong, Inpatient [place] [facility] [address] [place] Encounter [facility] ding:PCURoom Repository : UYD065Uah: 1 06/07/2018/06/07/19 [id number] Ambulatory [address] Repository 06/07/2018/06/11/19 [id number] Ambulatory [address] Repository 05/24/2018/05/31/19 [id number] FRANTZ IYER Inpatient UHCBuilding: [place] [address] Encounter DQ37Gjtt: Hospitals Q4692Kut: Repository [id number] 05/24/2018/05/24/20 [id number] Emergency [address] ding:ED Repository 05/10/2018/05/20/20 [id number] welljuan, Inpatient UHCBuilding: [place] [address] [address] Norris Encounter LQ17Ckup: Hospitals [id number]: Repository [id number] 05/08/2018/05/10/20 [id number] Joe Haddad Inpatient [place] [address] Encounter [facility] ding:PCURoom Repository : NZB145Qjj: 1 05/08/2018 [id number] Joe Haddad Ambulatory BMSBuilding: [place] BMS.[facility] Repository 05/08/2018 [id number] Joe Haddad Ambulatory BMSBuilding: [place]iv[place] BMS..[facility] Repository 05/08/2018 [id number] Joe Haddad Ambulatory BMSBuilding: [place] BMS.[facility] Repository 05/08/2018/05/10/20 [id number] Ambulatory BMSBuilding: [facility]iv[place] [facility] Repository 05/08/2018 [id number] Joe Haddad Ambulatory BMSBuilding: [place]iv[place] BMS.[facility] Repository 04/11/2018/04/12/20 [id number] Ambulatory [address] Repository 02/23/2018/02/27/20 [id number] Ambulatory [address] Repository 02/16/2018/02/21/20 [id number] Ambulatory [address] [place] Repository 02/16/2018/02/21/20 [id number] Ambulatory [address] Repository 02/06/[id number] [facility] MEDICAL Repository [place] ng:AGHWG1 01/30/[id number] [facility] MEDICAL Repository CENTERBuildi ng:AGHWG1 01/23/2018/01/26/20 [id number] Ambulatory [address] Main [place] Repository 12/21/2017/01/10/20 [id number] [facility], Inpatient [address] [place] Repository 12/21/2017/01/10/20 [id number] [facility], Inpatient [place] [address] [facility] CENTERBuildi nRoom: 4214Bed: 12/20/2017 [id number] Jose Neely Ambulatory BMSBuilding: Reece BMS.[facility] Repository 12/20/2017/12/22/19 [id number] [facility] ding:[id number] Repository : YA419Eur: 12/20/2017 [id number] Jose Neely Ambulatory BMSBuilding: Bivins BMS.[facility] Repository 12/20/2017/12/22/19 [id number] Ambulatory [address] Repository 12/20/2017 [id number] Ambulatory [facility] ding:OLS.WHL Repository CAR 12/11/2017 [id number] Ambulatory [facility] ding:RAD Repository 12/10/2017/12/15/19 [id number] Agyepong, Inpatient [place] Reece 18 [facility] ding:SV1Xhid Repository : AC149Kch: 12/10/2017 [id number] Agyenicoleg, Ambulatory BMSBuilding: Bivins [place] BMS.[facility] Repository 12/10/2017 [id number] Agyepong, Ambulatory BMSBuilding: Bivins [place] BMS.[facility] Repository 12/10/2017 [id number] Agyepong, Ambulatory BMSBuilding: Reece Suresh BMS.[facility] Repository 12/10/2017 [id number] Agyepong, Ambulatory BMSBuilding: Reece Suresh BMS.[facility] Repository 12/10/2017/12/15/19 [id number] Ambulatory BMSBuilding: Reece 18 [facility] Repository 12/10/2017 [id number] Agyepong, Ambulatory BMSBuilding: Reece Suresh BMS.[facility] Repository 12/08/2017/12/09/19 [id number] Ambulatory [address] [place] Repository 12/08/2017/12/09/19 [id number] Ambulatory [address] [place] Repository 12/08/2017/12/09/19 [id number] Ambulatory [address] [place] Repository 11/24/2017/11/25/19 [id number] Ambulatory [address] [place] Repository 11/24/2017/11/25/19 [id number] Ambulatory [address] [place] Repository 11/22/2017/11/28/19 [id number] Ambulatory [address] [place] Repository 11/20/2017/11/23/19 [id number] Ambulatory [address] Repository 11/14/2017/11/15/19 [id number] Ambulatory [address] ding:CLSP Repository 11/14/2017 [id number] Ambulatory BMSBuilding: Reece ARREAGA.CF.[facility]ly [facility], later [facility] Repository 11/10/2017/11/15/19 [id number] Ambulatory [address] Repository 11/08/2017 [id number] Ambulatory [facility] ding:MEDOUTP Repository 11/08/2017/11/09/19 [id number] Ambulatory BMSBuilding: Reece 18 BMS.Formerly [facility], later [facility] Repository 11/01/2017/11/02/19 [id number] Ambulatory [address] Repository 11/01/2017/11/02/19 [id number] Ambulatory [address] [place] Repository 11/01/2017/11/04/19 [id number] Ambulatory [address] Repository 10/17/2017/10/19/19 [id number] Ambulatory [address] Repository 09/13/2017/09/14/19 [id number] Emergency Reece Reece [address] [place] [address] ding:ED Repository PAYERS PAYERS ENCOUNTER GUARANTOR PAYER SUBSCRIBER SOURCE 06/11/2018 MANDY Primary DAVINA Newell [id number] E Insurance:CARESOURCEP MCNAMARADOB: Formerly [facility] NISH hernandez Number: [id number] [id number] Repository 00263Gpi: ([phone]) Date:2018-06-11P O [phone] () [address]ATTN: [place] [address]FI: 06/11/2018 Secondary NOT GIVENUNK Bivins Insurance:SELF PAY [facility] Number: Effective Repository Date:2018-06-11 06/11/2018 MANDY Primary DAVINA Newell [id number] E Insurance:CARESOURCEP MCCRISSDOB: Formerly [facility] NISH hernandez Number: [id number] [id number] Repository 96[address]Vrp: ([phone]) Date:2018-06-11P O [phone] () [address]ATTN: [place] [address]GR: 06/11/2018 Secondary NOT GIVENUNK Reece Insurance:SELF PAY [facility] Number: Effective Repository Date:2018-06-11 06/11/2018 MANDY Primary DAVINA Newell [id number] E Insurance:CARESOURCEP PETERDOB: Formerly [facility] NISH hernandez Number: [id number] [id number] Repository 84[address]Jdu: (034) Date:2018-06-11P O [phone] () [address]ATTN: [place] [address]SF: 06/11/2018 Secondary NOT GIVENUNK Reece Insurance:SELF PAY [facility] Number: Effective Repository Date:2018-06-11 06/11/2018 MANDY Primary DAVINA Newell [id number] E Insurance:CARESOURCEP TEOFILOARADOB: [facility] Number: [id number] [id number] Repository 894[address]Mix: (132) Date:2018-06-11P O [phone] () [address]: [place] [address]DV: 06/11/2018 Secondary NOT GIVENUNK Reece Insurance:SELF PAY [facility] Number: Effective Repository Date:2018-06-11 05/24/2018 DAVINA JASPALB: Primary DAVINA JASPALB: Allen E Insurance:[facility] [id number] Number: E [facility] Repository [address] [place] [address] [id number] [place] [address] [phone]: ([phone]) Date:Plan [phone]: () Name:[facility] [phone] () [address] [place] [address] [id number]: 05/24/2018 MANDY Primary NOT GIVENUNK Reece [id number] E Insurance:SELF PAY [address] Number: Effective Repository [phone]: ([phone]) Date:2018-05-24 [phone] () 05/10/2018 DAVINA JASPALB: Primary DAVINA JASPALB: Allen E Insurance:[facility] [id number] Number: E [facility] Repository [address] [place] [address] [id number] [place] [address] [phone]: ([phone]) Date:Plan [phone]: () Name:[facility] [phone] () [address] [place] [address] [id number]: 05/08/2018 MANDY Primary DAVINA [id number] E Insurance:CARESOURCEP PETERDOB: Community NISH hernandez Number: [id number] [id number] Repository [address]66[address]Snw: ([phone]) Date:2018-05-08 O [phone] () [address]ATTN: [place] [address]UO: 05/08/2018 Secondary NOT GIVENUNK Reece Insurance:SELF PAY [facility] Number: Effective Repository Date:2018-05-08 05/08/2018 Mandy Primary DAVINA Newell [id number] E Insurance:CARESOURCEP PETERDOB: Formerly [facility] Nish hernandez Number: [id number] [id number] Repository [address]Tio: ([phone]) Date:2018-05-08 O [phone] () [address]ATTN: [place] [address]IR: 05/08/2018 Secondary NOT GIVENUNK Reece Insurance:SELF PAY [facility] Number: Effective Repository Date:2018-05-08 05/08/2018 Mandy Primary DAVINA Newell [id number] E Insurance:CARESOURCEP PETERDOB: Formerly [facility] Nish hernandez Number: [id number] [id number] Repository [address]Huq: ([phone]) Date:2018-05-08 O [phone] () [address]ATTN: [place] [address]HZ: 05/08/2018 Secondary NOT GIVENUNK Bivins Insurance:SELF PAY [facility] Number: Effective Repository Date:2018-05-08 05/08/2018 MANDY Primary DAVINA Newell [id number] E Insurance:CARESOURCEP MCCRISSDOB: Formerly [facility] NISH hernandez Number: [id number] [id number] Repository [address]Het: ([phone]) Date:2018-05-08P O [phone] () [address]ATTN: [place] [address]MW: 05/08/2018 Secondary NOT GIVENUNK Reece Insurance:SELF PAY [facility] Number: Effective Repository Date:2018-05-08 05/08/2018 MANDY Primary DAVINA Newell [id number] E Insurance:CARESOURCEP PETERDOB: Formerly [facility] NISH hernandez Number: [id number] [id number] Repository 927[address]Vsk: (344) Date:2018-05-08 O [phone] () [address]ATTN: [place] [address]IW: 05/08/2018 Secondary NOT GIVENUNK Bivins Insurance:SELF PAY [facility] Number: Effective Repository Date:2018-05-08 05/08/2018 MANDY Primary DAVINA Newell [id number] E Insurance:CARESOURCEP VENKATSEEDOB: Formerly [facility] NISH hernandez Number: [id number] [id number] Repository [address]Jfi: ([phone]) Date:2018-05-08 O [phone] () [address]ATTN: [place] [address]QK: 05/08/2018 Secondary NOT GIVENUNK Bivins Insurance:SELF PAY [facility] Number: Effective Repository Date:2018-05-08 02/06/2018 DAVINA MCTEOFILOARADOB: Primary DAVINA MCTEOFILOARADOB: [facility] E Insurance:CARESOURCE [id number] [place] MED[place] Number: [id number]: (184 [id number] [phone] (HP) Date: 01/30/2018 DAVINA MCTEOFILOARADOB: Primary DAVINA MCTEOFILOARADOB: [facility] E Insurance:[facility] [id number] [facility] [place] MED[place] Number: [address]Wqk: 614) [id number] [phone] (HP) Date: 12/21/2017 DAVINA MCTEOFILOARADOB: Primary DAVINA MCTEOFILOARADOB: [facility] E Insurance:[facility] [id number] [facility] [place] MED[place] Rep[place] Number: [id number]: 614 [id number] [phone] (HP) Date: 12/20/2017 Mandy Primary DAVINA L Bivins [id number] E Insurance:[facility]: [facility] Number: [id number] [id number] Repository [address]Mcs: ([phone]) Date:2017-12-20P O [phone] (HP) [address]ATTN: [place] [address]WA: 12/20/2017 Secondary NOT GIVENUNK Bivins Insurance:SELF PAY [facility] Number: Effective Repository Date:2017-12-20 12/20/2017 Mandy Primary DAVINA L Reece [id number] E Insurance:[facility] OAKSARADOB: [facility] Number: [id number] [id number] Repository [address]Mcp: ([phone]) Date:2017-12-20P O [phone] (HP) [address]ATTN: [place] [address]EM: 12/20/2017 Secondary NOT GIVENUNK Bivins Insurance:SELF PAY [facility] Number: Effective Repository Date:2017-12-20 12/20/2017 Mandy Primary DAVINA Newell [id number] E Insurance:CARESOURCEP MCTEOFILOARADOB: Community Nish hernandez Number: [id number] [id number] Repository [address]Fgu: ([phone]) Date:2017-12-20P O [phone] () [address]ATTN: [place] [address]ZO: 12/20/2017 Secondary NOT GIVENUNK Bivins Insurance:SELF PAY [facility] Number: Effective Repository Date:2017-12-20 12/20/2017 Mandy Primary Davina Newell [id number] E Insurance:CARESOURCEP VenkataraDOB: Formerly [facility] Nish hernandez Number: [id number] [id number] Repository [address]Snv: ([phone]) Date:2017-12-20P O [phone] () [address]ATTN: [place] [address]UM: 12/20/2017 Secondary NOT GIVENUNK Bivins Insurance:SELF PAY [facility] Number: Effective Repository Date:2017-12-20 12/11/2017 Mandy Primary DAVINA Newell [id number] E Insurance:CARESOURCEP VENKATARADOB: Formerly [facility] Nish hernandez Number: [id number] [id number] Repository [address]Udk: ([phone]) Date:2017-11-24P O [phone] () [address]ATTN: [place] [address]QW: 12/11/2017 Secondary NOT GIVENUNK Reece Insurance:SELF PAY [facility] Number: Effective Repository Date:2017-11-24 12/10/2017 Mandy Primary DAVINA Newell [id number] E Insurance:CARESOURCEP PETERDOB: Formerly [facility] Nish hernandez Number: [id number] [id number] Repository 18[address]Roq: ([phone]) Date:2017-12-10P O [phone] () [address]ATTN: [place] [address]JX: 12/10/2017 Secondary NOT GIVENUNK Reece Insurance:SELF PAY [facility] Number: Effective Repository Date:2017-12-10 12/10/2017 Mandy Primary DAVINA Newell [id number] E Insurance:CARESOURCEP PETERDOB: Formerly [facility] Nish hernandez Number: [id number] [id number] Repository 6[address]Zbm: ([phone]) Date:2017-12-10P O [phone] () [address]ATTN: [place] [address]GW: 12/10/2017 Secondary NOT GIVENUNK Reece Insurance:SELF PAY [facility] Number: Effective Repository Date:2017-12-10 12/10/2017 Mandy Primary DAVINA L Reece [id number] E Insurance:CARESOURCEP PETERDOB: Formerly [facility] Nish hernandez Number: [id number] [id number] Repository [address]Kvz: ([phone]) Date:2017-12-10P O [phone] () [address]ATTN: [place] [address]VZ: 12/10/2017 Secondary NOT GIVENUNK Reece Insurance:SELF PAY [facility] Number: Effective Repository Date:2017-12-10 12/10/2017 Mandy Primary DAVINA Newell [id number] E Insurance:CARESOURCEP PETERDOB: Formerly [facility] Mingokylie hernandez Number: [id number] [id number] Repository 464[address]Bfh: ([phone]) Date:2017-12-10P O [phone] (HP) [address]ATTN: [place] [address]RT: 12/10/2017 Secondary NOT GIVENUNK Reece Insurance:SELF PAY [facility] Number: Effective Repository Date:2017-12-10 12/10/2017 Mandy Primary DAVINA L Reece [id number] E Insurance:CARESOURCEP MCNAMARADOB: [facility] [address] Number: [id number] [id number] Repository 857[address]Ggm: (294) Date:2017-12-10P O [phone] () [address]ATTN: [place] [address]DS: 12/10/2017 Secondary NOT GIVENUNK Reece Insurance:SELF PAY [facility] Number: Effective Repository Date:2017-12-10 12/10/2017 Mandy Primary DAVINA L Reece [id number] E Insurance:CARESOURCEP MCNAMARADOB: Formerly [facility] [address] Number: [id number] [id number] Repository 364[address]Vnn: ([phone]) Date:2017-12-10P O [phone] () [address]ATTN: [place] [address]UI: 12/10/2017 Secondary NOT GIVENUNK Reece Insurance:SELF PAY [facility] Number: Effective Repository Date:2017-12-10 12/10/2017 Mandy Primary DAVINA L Reece [id number] E Insurance:CARESOURCEP MCNAMARADOB: Community [address] Number: [id number] [id number] Repository 316[address]Kdr: ([phone]) Date:2017-12-10P O [phone] (HP) [address]ATTN: [place] [address]AD: 12/10/2017 Secondary NOT GIVENUNK Bivins Insurance:SELF PAY [facility] Number: Effective Repository Date:2017-12-10 11/14/2017 Mandy Primary DAVINA [id number] E Insurance:CARESOURCEP MCTEOFILOARADOB: Community Mingokylie hernandez Number: [id number] [id number] Repository 65[address]Bds: ([phone]) Date:2017-11-08 O [phone] () [address]ATTN: [place] [address]HE: 11/14/2017 Secondary NOT GIVENUNK Bivins Insurance:SELF PAY [facility] Number: Effective Repository Date:2017-11-08 11/14/2017 Mandy Primary DAVINA Newell [id number] E Insurance:CARESOURCEP MCNAMARADOB: Formerly [facility] Mingokylie hernandez Number: [id number] [id number] Repository [address]38[address]Hvl: ([phone]) Date:2017-11-08P O [phone] () [address]ATTN: [place] [address]PU: 11/14/2017 Secondary NOT GIVENUNK Reece Insurance:SELF PAY [facility] Number: Effective Repository Date:2017-11-14 11/08/2017 Mandy Primary DAVINA Newell [id number] E Insurance:CARESOURCEP MCTEOFILOARADOB: Community Ming[place]ylie hernandez Number: [id number] [id number] Repository 313[address]Gkf: ([phone]) Date:2017-11-08P O [phone] () [address]ATTN: [place] [address]NW: 11/08/2017 Secondary NOT GIVENUNK Bivins Insurance:SELF PAY [facility] Number: Effective Repository Date:2017-11-08 11/08/2017 Mandy Primary DAVINA Newell [id number] E Insurance:CARESOURCEP PETERDOB: Formerly [facility] Nish hernandez Number: [id number] [id number] Repository [address]Vol: ([phone]) Date:2017-11-07 O [phone] () [address]ATTN: [place] [address]MY: 11/08/2017 Secondary NOT GIVENUNK Reece Insurance:SELF PAY [facility] Number: Effective Repository Date:2017-11-08 09/13/2017 Mandy Primary DAVINA Newell [id number] E Insurance:CARESOURCLEA JASPALB: Formerly [facility] Nish hernandez Number: [id number] [id number] Repository [address]Cun: ([phone]) Date:2017-09-13P O [phone] () [address]ATTN: [place] [address]AQ: 09/13/2017 Secondary NOT GIVENUNK Reece Insurance:SELF PAY [facility] Number: Effective Repository Date:2017-09-13
== END 2018-05-10 18:14 | disposition short-term general hospital (02) | DRG 191 ==
LOC: ED 02:06 → PCU 03:48
PROVIDERS: Internal Medicine Cardiovascular Disease; Admitting Provider Family Medicine; Emergency Provider Emergency Medicine; Family Provider Family Medicine; PCP Family Medicine; Visit Provider Hospitalist
DX: I25.110 Atherosclerotic heart disease of native coronary artery with unstable angina pectoris (principal); I50.21 Acute systolic (congestive) heart failure; F17.200 Nicotine dependence, unspecified, uncomplicated; Z23 Encounter for immunization; I34.0 Nonrheumatic mitral (valve) insufficiency; E78.5 Hyperlipidemia, unspecified; N18.3 Chronic kidney disease, stage 3 (moderate); I13.0 Hypertensive heart and chronic kidney disease with heart failure and stage 1 through stage 4 chronic kidney disease, or unspecified chronic kidney disease; E11.22 Type 2 diabetes mellitus with diabetic chronic kidney disease; E11.51 Type 2 diabetes mellitus with diabetic peripheral angiopathy without gangrene; Z86.73 Personal history of transient ischemic attack (TIA), and cerebral infarction without residual deficits; Z89.422 Acquired absence of other left toe(s); Z79.4 Long term (current) use of insulin; Z79.899 Other long term (current) drug therapy; Z82.49 Family history of ischemic heart disease and other diseases of the circulatory system
CPT/HCPCS: 36415; 71045; 71275; 80048; 80053; 80061; 82962; 83880; 84484; 85025; 85027; 85379; 85610; 85730; 93005; 93306; 93458; 97802; 97803; 99152; 99153; 99285; J7030; J7040; Q9967; 90686; A4216; C1769; J1940; J2405

== ENCOUNTER 2018-05-24 06:33 | Emergency (ER) | payer MEDICAID, SELFPAY ==
[2018-05-08 04:16] VITALS: BMI 28.5
[2018-05-24] VITALS (7 sets, daily range): BP systolic 137–180; BP diastolic 70–93; PULSE 86–104; RESP 12–32; TEMP 36.4–37.1; O2SAT 87–99; BMI 27.3
--- NOTE | 2018-05-24 06:40 | RAD_ITS ---
STUDY: X-RAY CHEST REASON FOR EXAM: Female, 62 years old. SOB TECHNIQUE: Single frontal view of the chest. COMPARISON: 05/08/2018 FINDINGS: Progressing right basilar alveolar disease. There is no demonstrated pleural abnormality. Stable cardiomediastinal silhouette. Normal mediastinum and tom. Normal visualized pulmonary arteries. Normal visualized aortic arch and descending thoracic aorta. Normal visualized thoracic spine. Normal visualized ribs, clavicles, and shoulders. There is no demonstrated abnormality of the visualized soft tissue structures of the upper abdomen. RAD/Chest 1 View (Portable) IMPRESSION: Progressing right basilar alveolar disease. Electronically Signed: aJcob Alicea MD at 7:26 EST Tel , Service support ,
--- NOTE | 2018-05-24 06:40 | EKG12_ITS ---
Test Reason : SOB Blood Pressure : / mmHG Vent. Rate : 102 BPM Atrial Rate : 102 BPM P-R Int : 144 ms QRS Dur : 088 ms QT Int : 332 ms P-R-T Axes : 062 083 021 degrees QTc Int : 432 ms Sinus tachycardia Septal infarct , age undetermined , cannot be excluded Nonspecific T wave abnormality Abnormal ECG Confirmed by ANDREA GARCIA, JOE ([id number]), writer editor RAYMUNDO PATEL ([id number]) on 05/28/2018 1:14:59 PM Referred By: ANA ROSA Confirmed By:JOE MENDEZ MD
[2018-05-24] MEDS: Aspirin 81 MG TAB.CHEW 324 MG PO (06:48)
--- NOTE | 2018-05-24 06:56 | ED.RN ---
olaf and dr delgado notified of sepsis alert
[2018-05-24] MEDS: Ipratropium/Albuterol Sulfate 3 ML AMPUL.NEB INHALATION (06:57)
[2018-05-24 06:58] LABS: Absolute Lymphocyte Count 2.97 X10^3/ul (0.83-4.51); Absolute Neutrophil Count 5.6 X10^3/uL (2.0-7.7); Basophil# 0.09 X10^3/uL; Basophil% 0.8 % (0-1); Eosinophil# 1.47 X10^3/uL; Eosinophils% 13.5 % (0-5); Hemoglobin 12.7 g/dl (12.0-15.0); Lymphocyte # 2.97 X10^3/ul (4.0); Lymphocyte % 27.3 % (19-41); Mean Corp Hgb Conc 32.6 g/gl (32-36); Mean Corpuscular Hgb 29.2 pg (27.0-32.0); Mean Corpuscular Volume 89.7 fL (81-99); Mean Platelet Vol. 10.1 fl (6.2-12.0); Monocyte# 0.73 X10^3/uL; Monocyte% 6.7 % (0-10); Neutrophil % 51.5 % (47-70); Platelet Count 363 K/mm3 (150-450); RBC Distribution Width CV 15.5 % (11.6-14.6); RBC Distribution Width SD 50.2 fl (35.1-43.9); Red Blood Count 4.35 M/mm3 (4.2-5.4); White Blood Count 10.9 K/mm3 (4.4-11.0)
[2018-05-24 06:59] LABS: POSITIVE COUNT NO; POSITIVE DIFFERENTIAL NO; POSITIVE MORPHOLOGY NO
[2018-05-24 07:20] LABS: Anion Gap 9 (5-15); BUN 11 mg/dL (7-18); BUN/Creat Ratio 8.1 RATIO (10-20); Calcium,Total 8.8 mg/dL (8.5-10.1); Chloride 111 mmol/L (98-107); Creatinine, Serum 1.35 mg/dL (0.55-1.02); EST Glomerular Filtration Rate 42 mL/min (>60); Est Glom Filt Rate - Afr Amer 51 mL/min (>60); Estimated Creatinine Clearance 31.04 ml/min; Glucose 111 mg/dL (74-106); Potassium 4.6 mmol/L (3.5-5.1); Sodium Level 142 mmol/L (136-145)
[2018-05-24 07:23] LABS: Lactic Acid 1.3 mmol/L (0.4-2.0)
[2018-05-24 07:32] LABS: BNP,B-Type NATRIURETIC PEPTIDE 3512.5 pg/mL (0-100)
--- NOTE | 2018-05-24 07:41 | ED.VISSUMM ---
- ER Visit Summary Date of Service: 05/24/18 Chief Complaint: Shortness of breath History of Present Illness: The patient is a 62 F who presents with shortness of breath. It began about 2-3 hours before presentation. She also complains of chest tightness which is 10 out of 10. She complains of a productive cough and some diarrhea. She was recently hospitalized for acute congestive heart failure. She was found to have triple-vessel disease. She was transferred to [facility] because it was felt she like he needed a CABG. She did not undergo CABG but did undergo stenting and was told that she likely needs another stent. Physical Examination: Afebrile blood pressure 180/93 heart rate 104 pulse ox 87% on room air Heart regular rhythm tachycardia Patient has bilateral rales increased work of breathing speaking in short sentences Abdomen soft Extremities are nontender without edema Alert Test Results: EKG shows sinus rhythm at a rate of 102. Labs notable for creatinine 1.35. Troponin is 1.6. BNP is 3512. Emergency Department Course and Treatment: Patient was given aspirin and placed on cash applications representative. She was placed on BiPAP. She did have improvement on BiPAP. Her chest x-ray shows progressing right alveolar disease. On my review this does appear this was CHF which fits her clinical picture. Given her troponin of 1.6 I do believe this is an STEMI. We discussed anticoagulation but she states that she had significant bleeding complications at the time of her heart cath and she may also need surgical intervention given her history. Therefore we deferred on anticoagulation. She was given IV Lasix. We also applied Nitropaste to the chest. Patient will be transferred to [facility]. Treatment Plan: [] Disposition: Transfer Impression: NSTEMI CHF This note was generated with [employer] dictation software. It may contain incorrect words, spelling, and punctuation that were not noted in review of the chart prior to signing ED Disposition - Plan for ED Patient: Chief Complaint: Shortness of Breath Referrals: Evens Jimenez III, MD [Primary Care Provider] -
--- NOTE | 2018-05-24 07:45 | NURSING ---
CALLED [facility], TALKED TO IVANNA, IN THE TRANSFER CENTER.
--- NOTE | 2018-05-24 07:50 | ED.DCSUM_ITS ---
- ER Visit Summary Date of Service: 05/24/18 Chief Complaint: Shortness of breath History of Present Illness: The patient is a 62 F who presents with shortness of breath. It began about 2-3 hours before presentation. She also complains of chest tightness which is 10 out of 10. She complains of a productive cough and some diarrhea. She was recently hospitalized for acute congestive heart failure. She was found to have triple-vessel disease. She was transferred to [facility] because it was felt she like he needed a CABG. She did not undergo CABG but did undergo stenting and was told that she likely needs another stent. Physical Examination: Afebrile blood pressure 180/93 heart rate 104 pulse ox 87% on room air Heart regular rhythm tachycardia Patient has bilateral rales increased work of breathing speaking in short sentences Abdomen soft Extremities are nontender without edema Alert Test Results: EKG shows sinus rhythm at a rate of 102. Labs notable for creatinine 1.35. Troponin is 1.6. BNP is 3512. Emergency Department Course and Treatment: Patient was given aspirin and placed on secured entrance monitor. She was placed on BiPAP. She did have improvement on BiPAP. Her chest x-ray shows progressing right alveolar disease. On my review this does appear this was CHF which fits her clinical picture. Given her troponin of 1.6 I do believe this is an STEMI. We discussed anticoagulation but she states that she had significant bleeding complications at the time of her heart cath and she may also need surgical intervention given her history. Therefore we deferred on anticoagulation. She was given IV Lasix. We also applied Nitropaste to the chest. Patient will be transferred to [facility]. Treatment Plan: [] Disposition: Transfer Impression: NSTEMI CHF This note was generated with [employer] dictation software. It may contain incorrect words, spelling, and punctuation that were not noted in review of the chart prior to signing ED Disposition - Plan for ED Patient: Chief Complaint: Shortness of Breath Referrals: Evens Jimenez III, MD [Primary Care Provider] -
[2018-05-24] MEDS: Furosemide 40 MG/4 ML Vial IV (07:58)
[2018-05-24] MEDS: Nitroglycerin Oint 1 INCH PACKET TRANSDERM. (07:58)
--- NOTE | 2018-05-24 08:02 | NURSING ---
[id number] DR IYER, CHANELLE, , FOR DR OSEGUERA
--- NOTE | 2018-05-24 08:34 | NURSING ---
CALLED [facility] FOR TRANSPORT. [facility]W IN [place]
--- NOTE | 2018-05-24 09:22 | ED.RN ---
ATTEMPTED TO CALL PTS AND DA[facility]TER MULTIPLE TIMES BUT UNABLE TO MAKE CONTACT. PT IS AWARE.
== END 2018-05-24 09:33 | disposition short-term general hospital (02) ==
PROVIDERS: Emergency Provider Emergency Medicine; Family Provider Family Medicine; PCP Family Medicine
DX: I21.4 Non-ST elevation (NSTEMI) myocardial infarction (principal); I25.10 Atherosclerotic heart disease of native coronary artery without angina pectoris; I11.0 Hypertensive heart disease with heart failure; I50.9 Heart failure, unspecified; E11.9 Type 2 diabetes mellitus without complications; Z95.5 Presence of coronary angioplasty implant and graft; Z79.4 Long term (current) use of insulin; Z79.82 Long term (current) use of aspirin; Z79.899 Other long term (current) drug therapy
CPT/HCPCS: 71045; 80048; 83605; 83880; 84484; 85025; 87040; 93005; 94002; 94640; 96374; 99285; A4216; J1940

== ENCOUNTER 2018-06-11 01:58 | Inpatient (IN) | payer MEDICAID, SELFPAY ==
[2018-05-24 06:34] VITALS: BMI 27.3
[2018-06-11] VITALS (31 sets, daily range): BP systolic 127–210; BP diastolic 57–111; PULSE 76–130; RESP 12–40; TEMP 36.3–36.9; O2SAT 88–100; BMI 30.5; BMI 28.5; BMI 28.6
[2018-06-11 02:11] LABS: Bedside Glucose 70 mg/dL (70-110)
--- NOTE | 2018-06-11 02:11 | EKG12_ITS ---
Test Reason : Blood Pressure : / mmHG Vent. Rate : 129 BPM Atrial Rate : 129 BPM P-R Int : 120 ms QRS Dur : 082 ms QT Int : 390 ms P-R-T Axes : 060 073 067 degrees QTc Int : 571 ms Sinus tachycardia Low voltage QRS Septal infarct , age undetermined Abnormal ECG Confirmed by GENA GARCIA, JAMIE ([id number]), editorial clerk RAYMUNDO PATEL ([id number]) on 06/12/2018 5:13:59 PM Referred By: Kerwin Brizuela Confirmed By:JAMIE AVERY MD
--- NOTE | 2018-06-11 02:11 | RAD_ITS ---
STUDY: X-RAY CHEST REASON FOR EXAM: Female, 62 years old. Congestive heart failure and increasing shortness of breath. TECHNIQUE: Single AP portable view of the chest. COMPARISON: May 24, 2018. FINDINGS: Cardiac monitoring leads are present. The lungs are hyperexpanded. There are mixed interstitial and airspace opacities at the right lung base. There is diffuse interstitial thickening in both lungs. There is no demonstrated pleural abnormality. There is mild cardiac enlargement. There is enlargement of the hilar areas, right greater than left suggesting possible lymphadenopathy. There is prominence of the pulmonary hilar arteries without peripheral pulmonary vascular congestion. There is atherosclerotic tortuosity of the aortic arch and descending thoracic aorta. There is demineralization of the osseous structures. There are degenerative changes of both shoulders. There is no demonstrated abnormality of the visualized soft tissue structures of the upper abdomen. RAD/Chest 1 View (Portable) IMPRESSION: 1. Cardiomegaly with pulmonary congestion. 2. Prominence of the hilar areas may be the result of lymphadenopathy or prominent pulmonary arteries. 3. Persistent right basilar heterogeneous air space disease. Electronically Signed: Ana Leija MD at 2:53 EST , Service support ,
[2018-06-11] MEDS: Nitroglycerin Oint 1 INCH PACKET TRANSDERM. ×4 (02:22→17:31)
[2018-06-11] MEDS: Aspirin 81 MG TAB.CHEW 324 MG PO (02:22)
[2018-06-11 02:30] LABS: Absolute Lymphocyte Count 2.59 X10^3/ul (0.83-4.51); Absolute Neutrophil Count 7.8 X10^3/uL (2.0-7.7); Basophil# 0.06 X10^3/uL; Basophil% 0.5 % (0-1); Eosinophil# 0.91 X10^3/uL; Eosinophils% 7.3 % (0-5); Hematocrit 36.6 % (37-47); Lymphocyte # 2.59 X10^3/ul (4.0); Lymphocyte % 20.9 % (19-41); Mean Corp Hgb Conc 32.8 g/gl (32-36); Mean Corpuscular Hgb 29.3 pg (27.0-32.0); Mean Corpuscular Volume 89.3 fL (81-99); Mean Platelet Vol. 9.3 fl (6.2-12.0); Monocyte# 1.04 X10^3/uL; Monocyte% 8.4 % (0-10); Neutrophil # 7.79 X10^3/uL (2.7-7.7); Neutrophil % 62.7 % (47-70); POSITIVE COUNT NO; POSITIVE DIFFERENTIAL NO; POSITIVE MORPHOLOGY NO; Platelet Count 346 K/mm3 (150-450); RBC Distribution Width CV 14.9 % (11.6-14.6); White Blood Count 12.4 K/mm3 (4.4-11.0)
[2018-06-11 02:46] LABS: Bedside Glucose 108 mg/dL (70-110)
[2018-06-11] MEDS: LORazepam 2 MG/ML Syringe 0.5 MG IV (02:51)
[2018-06-11 02:52] LABS: Anion Gap 11 (5-15); BUN 32 mg/dL (7-18); Calcium,Total 9.2 mg/dL (8.5-10.1); Chloride 106 mmol/L (98-107); Creatinine, Serum 1.39 mg/dL (0.55-1.02); EST Glomerular Filtration Rate 41 mL/min (>60); Est Glom Filt Rate - Afr Amer 49 mL/min (>60); Estimated Creatinine Clearance 30.14 ml/min; Glucose 87 mg/dL (74-106); Potassium 4.9 mmol/L (3.5-5.1); Sodium Level 138 mmol/L (136-145)
--- NOTE | 2018-06-11 03:16 | ED.DCSUM_ITS ---
- ER Visit Summary Date of Service: 06/11/18 Chief Complaint: Shortness of breath History of Present Illness: The patient is a 62 F presenting for evaluation secondary to shortness of breath. Patient has an underlying history of coronary artery disease and CHF with recent high risk stenting in [place]. Patient reports that she has been having intermittent issues with shortness of breath since the stenting procedure, and is supposed to have another stent placed here in the coming weeks. Patient states that about an hour prior to arrival she started noticed significant shortness of breath with some chest discomfort. Patient denies that she has had any sort of an factious prodrome associated with this including cough or fever. She does endorse that she has been getting some leg swelling associated with this. Patient was noted to be hypoxic on room air, and is not oxygen dependent. Patient did recently quit smoking about 2 months ago. Physical Examination: Vital signs are notable for blood pressure 210/110, heart rate of 120, respirations of 40, pulse ox of 88% on 2 L. Well-nourished female visibly dyspneic. Head normocephalic. No JVD was noted. Heart was tachycardic and regular without murmurs. Respirations were tachypneic, with evidence of rales in the bases bilaterally. Abdomen was soft and not tender. There is +1 bilaterally symmetric lower extremity edema noted on the patient. Remainder of physical otherwise unremarkable. Test Results: EKG demonstrates sinus tachycardia with a rate in the 120s that was grossly unchanged from prior EKG the end of April. Chest x-ray shows pulmonary vascular congestion consistent with CHF. CBC demonstrates leukocytosis of 12, chemistry essentially unremarkable mild increase in the patient's BUN to 30. Patient's BNP was markedly elevated in the 1999's, troponin in the indeterminate range. Emergency Department Course and Treatment: Patient presented with respiratory distress and hypoxia in the setting of recent CHF. Patient was noted to be profoundly hypertensive and have rales in the bases. The leading diagnostic concern was congestive heart failure. Patient had an inch of nitroglycerin paste placed on her chest and was given aspirin. She was placed on BiPAP for supplemental oxygen as well as preload reduction. Patient's blood pressure did improve into the 170s systolic and her respiratory status improved. Patient's chest x-ray confirmed pulmonary vascular congestion, BNP was elevated, troponin was elevated to a indeterminate level. Patient was given 80 mg of Lasix. She does have a mild white blood cell count elevation, but she had no infectious prodrome so I do not believe that we are dealing with pneumonia in this case. Patient will be admitted under the hospitalist. Disposition: Admission Impression: 1. CHF exacerbation 2. Hypoxic respiratory failure Critical care time 40 minutes This note was generated with [employer] dictation software. It may contain incorrect words, spelling, and punctuation that were not noted in review of the chart prior to signing ED Disposition - Plan for ED Patient: Chief Complaint: Shortness of Breath Referrals: Evens Jimenez III, MD [Primary Care Provider] -
[2018-06-11] MEDS: Furosemide 100 MG/10 ML Vial 80 MG IV (04:06)
[2018-06-11] MEDS: Morphine 2 MG/ML Syringe 1 MG IV ×3 (04:07→17:43)
--- NOTE | 2018-06-11 04:29 | HP.PCM_ITS ---
Problem List (1) Flash pulmonary edema Status: Acute (2) Acute exacerbation of CHF (congestive heart failure) Status: Acute Qualifiers: Heart failure type: systolic Qualified Code(s): I50.23 - Acute on chronic systolic (congestive) heart failure History of Present Illness Date of Admission: 06/11/18 Chief Complaint: shortness of breath The patient is a 62 year old F with a significant history of anxiety; CAD status post 3 stents; systolic heart failure NYHA class III diabetes mellitus; CKD stage III; COPD who presented with sudden onset shortness of breath that started after she woke up from her sleep. Her symptoms started few hours before her admission. Her shortness of breath increases with exertion. Associated with her symptoms is swelling of her legs. Further patient reports substernal sharp chest pain of 10 out of 10 in severity. Her pain is nonradiating. Pain is constant. There are no relieving or aggravating factors. She denies orthopnea. Patient was previously admitted to our [facility] on 05/08/2018. On 05/09/2018 patient had a cardiac catheterization. She was found to have three-vessel disease with a grade 3 mitral valve insufficiency. Her cardiac catheterization here was with Dr. Good, starch cooker. Her catheterization also showed left ventricular ejection fraction of 30% with inferior basal akinesis; and anterior hypokinesis. She was transferred to [facility] on 05/09/2018 for multivessel coronary artery disease where she received 3 stents. Patient reports that she is supposed to get another stent. On this presentation chest x-ray showed cardiomegaly with pulmonary congestion; prominence of haler areas which may be the result of lymphadenopathy or prominent pulmonary arteries; persistent right basilar heterogeneous airspace disease. Patient was transitioned from nonrebreather mask to 2 L nasal cannula. On 2 L nasal cannula her oxygen saturation was 88%. At emergency departments she was placed on BiPAP to reduce preload and afterload. Her BNP was severely elevated at 2,243.8. At emergency department patient received lorazepam. Patient received Lasix 80 mg IV. Nitroglycerin patch was placed on patient chest. Also she was given aspirin 324 mg. She is a former smoker who quit smoking about a month and a half ago. Past Medical History Past Medical History (Chronic Problems): Chronic Problems (Last Reviewed 06/11/18 @ 05:13 by Kerwin Brizuela MD) Chronic ulcer of buttock (Chronic) Diabetes mellitus (Chronic) Hypertension (Chronic) History of CVA (cerebrovascular accident) (Chronic) Tobacco abuse (Chronic) PVD (peripheral vascular disease) (Chronic) Carotid arterial disease (Chronic) Hyperlipidemia (Chronic) Medical History: Medical History (Last Reviewed 06/11/18 @ 05:13 by Kerwin Brizuela MD) PVD (peripheral vascular disease) (Chronic) I73.9 Carotid arterial disease (Chronic) I77.9 Hyperlipidemia (Chronic) E78.5 Asthma J45.909 CVA (cerebral vascular accident) I63.9 Chronic back pain M54.9, G89.29 Depression F32.9 Diabetes E11.9 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 Z89.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 HTN (hypertension) I10 Allergies Penicillins Allergy (Severe, Verified 05/24/18 06:43) Swelling tolerated keflex in past with no issue Home Medications: Ambulatory Orders Medication Instructions Recorded Amlodipine [Norvasc] 10 mg PO QHS 12/18/15 Lisinopril [Zestril] 10 mg PO DAILY 12/18/15 busPIRone [Buspar] 5 mg PO TID 12/18/15 Mometasone Furoate [Elocon] 50 gm TP DAILY PRN 12/10/17 Acetaminophen [Tylenol Tablet] 650 mg PO Q6H PRN PRN tablet 12/14/17 Insulin Glargine,Hum.rec.anlog 18 unit SQ QHS 12/20/17 [Lantus] Insulin Lispro [Humalog KwikPen] 6 unit SQ 0700,1200,1700 12/20/17 Atorvastatin Calcium [Lipitor] 40 mg PO QHS 05/08/18 Sumatriptan Succinate [Imitrex] 50 mg PO DAILY PRN 05/08/18 Aspirin [Aspirin EC] 81 mg PO DAILY 05/24/18 Carvedilol 3.125 mg PO DAILY 05/24/18 Clopidogrel Bisulfate [Clopidogrel] 75 mg PO DAILY 05/24/18 [place]-3 Fatty Acids [[place]-3] 2 cap PO BID 05/24/18 traMADol [Ultram] 50 mg PO Q6H PRN PRN 06/11/18 Surgical History: Surgical History (Last Reviewed 06/11/18 @ 05:13 by Kerwin Brizuela MD) History of esophagogastroduodenoscopy (EGD) Z98.890 S/P carotid endarterectomy Z98.890 S/P colonoscopy Z98.890 Surgical History: - - Patient has undergone right carotid endarterectomy by Dr. Siva Jimenez approximately 7 years ago. She is a Ab0. Amputation of small toe of left foot Smoking Status: Former smoker - *Family History Maternal Family History: Family History (Last Updated 11/08/17 @ 13:38 by Melva Ashby) Mother No problems noted. History Items: Heart Disease, - - Patient's father in his 40s from myocardial infarction. Patient's mother in her 40s from a cerebrovascular accident. Paternal Family History: Family History (Last Updated 11/08/17 @ 13:38 by Melva Ashby) Mother No problems noted. History Items: Heart Disease - There was heart disease in both maternal and paternal side. Review of Systems Constitutional: Denies: Chills, Fever, Weight Change HEENT: Denies: Head Aches, Sinus Congestion, Sinus Drainage Cardiovascular: Reports: Chest Pain. Denies: Palpitations Respiratory: Reports: Shortness of breath at rest. Denies: Cough, Sputum production Gastrointestinal: Denies: Abdominal Pain, Nausea, Vomiting Genitourinary: Denies: Dysuria Musculoskeletal: Denies: Joint Pain, Joint Tenderness Skin: Denies: Rash, Wounds Neurological: Denies: Numbness, Tingling, Focal weakness Psychiatric: Denies: Anxiety, Depression, Homicidal Ideations, Suicidal Ideation s Hematologic/ Lymphatic: Denies: Easy Bruising, Easy Bleeding VTE Information - Inpt Only VTE Present on Admission: No VTE Mechan Device Prophylaxis: None VTE Pharm Prophylaxis ordered?: Yes Patient Problems: Active and Suspected Problems (Last Reviewed 06/11/18 @ 05:13 by Kerwin Brizuela MD) Flash pulmonary edema (Acute) Acute exacerbation of CHF (congestive heart failure) (Acute) - Physical Exam General: Alert, Oriented x3, Cooperative HEENT: Atraumatic, PERRLA, EOMI, Normocephalic Neck: Supple, No JVD, Negative Carotid Bruits Lungs: Rhonchi, Tachypneic, Using Accessory Muscles Cardiovascular: Regular rate, No murmurs Abdomen: Bowel Sounds Present, Soft, Non Tender Extremities: Capillary Refill Less than 3 Seconds, Edema - 2+ on the right ankle and lateral side of right foot. Skin: No rashes, No breakdown Musculoskeletal: No Muscle Wasting Neurological: Neuro grossly intact Psych/Mental Status: Normal Affect, Appropriate Vital Signs Temp Pulse Resp BP Pulse Ox 98.5 F 96 24 H 129/77 H 95 06/11/18 01:59 06/11/18 03:34 06/11/18 03:34 06/11/18 03:34 06/11/18 03:34 Oxygen Flow Rate (L/min) 4 Oxygen Delivery Method Bi-pap Weight: 71 kg Body Mass Index (BMI) 30.5 Laboratory Tests Past 24 Hrs 06/11/18 06/11/18 06/11/18 02:22 02:22 02:22 WBC 12.4 H RBC 4.10 L Hgb 12.0 Hct 36.6 L MCV 89.3 MCH 29.3 MCHC 32.8 RDW 14.9 H RDW Differential 48.0 H Plt Count 346 MPV 9.3 Immature Gran % (Auto) 0.200 Neut % (Auto) 62.7 Lymph % (Auto) 20.9 [place] % (Auto) 8.4 Eos % (Auto) 7.3 H Baso % (Auto) 0.5 Absolute Neuts (auto) 7.8 H Absolute Lymphs (auto) 2.59 Total Counted Not Reportable Sodium 138 Potassium 4.9 Chloride 106 Carbon Dioxide 21.0 Anion Gap 11 BUN 32 H Creatinine 1.39 H Estim Creat Clear Calc 30.14 Est GFR (MDRD) Af Amer 49 L Est GFR (MDRD) Non-Af 41 L BUN/Creatinine Ratio 23.0 H Glucose 87 Calcium 9.2 Troponin I 0.058 H B-Natriuretic Peptide 2243.8 H POC Glucose 06/11/18 06/11/18 02:38 02:05 POC Glucose 108 70 Assessment/Plan All Active Problems (Last Reviewed 06/11/18 @ 05:13 by Kerwin Brizuela MD) Flash pulmonary edema (Acute) Acute exacerbation of CHF (congestive heart failure) (Acute) The patient is a 62 year old F with a significant history of anxiety; CAD status post 3 stents; systolic heart failure JASKARAN class III diabetes mellitus; COPD who presented with sudden onset shortness of breath; and chest pain and found to have pulmonary congestion and elevated BNP consistent with acute exacerbation of systolic heart failure with flash pulmonary edema. Acute exacerbation of heart failure with reduced ejection Fraction (NYHA Class III) with flash pulmonary edema Chest x-ray independently reviewed showed pulmonary edema. BNP on admission was 2243.8. Review of old records showed BNP on 05/24 2018 was 3512.5 BNP on 05/08/2018 was 3,127.7 Patient received Lasix 80 mg IV x1 at the emergency department. Will give patient another dose of Lasix, 40mg IV, in a.m. Her potassium on admission was 4.9. We will repeat her BMP. Consider potassium administration while patient on Lasix. Placed on BiPAP at emergency department with setting /4. BiPAP setting change to /. We will keep n.p.o. while patient is on BiPAP. Consider starting a 2 g sodium diet when patient is off BiPAP. Strict intake and output. Daily weights. Elevate bilateral lower extremities Jovany wrap to bilateral legs Obtain medical records from [facility] Creatinine on admission was 1.39. This is about her baseline. Lisinopril and Coreg continued. Consider titrating guideline directed medication since there is room on blood pressure. Nitroglycerin paste was placed on patient to the emergency department. We will continue nitroglycerin paste. Morphine 1milligrams IV x 1 once ordered for Pulmonary congestion. PRN morphine IV for shortness of breath and chest pain. Her troponin at emergency department was 0.058. Serial troponin ordered. Review of records show that on 05/24/2018 her troponin was 1.60. Consider cardiology consult. We will get a comprehensive respiratory pathogen panel. Since patient has history of COPD and her lungs sounded rhonchus scheduled DuoNeb was ordered. Elevated troponin Trend as above. Likely from demand ischemia from CHF exacerbation. Aspirin continued High intensity statin continued History of CAD Aspirin, Plavix, high intensity statin, metoprolol and lisinopril continued. Leukocytosis Her WBC on admission was 12.4 K. Review of old records shows that at baseline her white blood count is normal. Likely reactive. Trend. Diabetes mellitus On presentation her blood glucose on BMP was 87; and on fingerstick blood sugar was 108. This is within goal. Patient is on long-acting insulin and prandial insulin at home. Since patient is on BiPAP and she is n.p.o. except meds would hold off home insulin and place patient on correction scale insulin. CKD stage III On admission her creatinine was within baseline. COPD Does not appear to be in COPD exacerbation. All her symptoms probably is from heart failure. However because her lung was rhonchus which could indeed be from heart failure will put patient on DuoNeb. Home breathing treatment continued. Anxiety Disorder Buspirone continued Received x1 dose of Ativan at the emergency department. DVT Prophylaxis Subcutaneous heparin. Code Visit Inpatient E&M: 09471 Init Hosp L3
[2018-06-11] MEDS: Ipratropium/Albuterol Sulfate 3 ML AMPUL.NEB INHALATION ×3 (06:29→19:40)
[2018-06-11 06:33] LABS: Anion Gap 12 (5-15); BUN 34 mg/dL (7-18); BUN/Creat Ratio 23.9 RATIO (10-20); Calcium,Total 8.7 mg/dL (8.5-10.1); Chloride 105 mmol/L (98-107); Creatinine, Serum 1.42 mg/dL (0.55-1.02); EST Glomerular Filtration Rate 40 mL/min (>60); Est Glom Filt Rate - Afr Amer 48 mL/min (>60); Estimated Creatinine Clearance 29.51 ml/min; Glucose 125 mg/dL (74-106); Potassium 3.6 mmol/L (3.5-5.1); Sodium Level 142 mmol/L (136-145)
[2018-06-11 06:35] LABS: Bedside Glucose 121 mg/dL (70-110)
[2018-06-11] MEDS: Heparin Injection (Vial) 5,000 UNIT/ML VIAL 5000 UNIT SC ×3 (07:05→20:38)
--- NOTE | 2018-06-11 08:10 | PCM.HOSP.N ---
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 Shortness of breath associated with substernal chest pain which is localized. Patient had cardiac cath on 05/09/2018 found to three-vessel disease with grade 3 MR with EF 30%, inferior basal akinesis and anterior hypokinesis. She had PCI with 3 stents done in [facility] on 05/09/2018. Chest x-ray showed cardiomegaly with pulmonary congestion prominence of hilar region. EKG in ED showed sinus tachycardia at 129 bpm with previous septal infarct. Currently patient is on BiPAP. States his shortness of breath is better. Acute exacerbation of chronic systolic heart failure with flash pulmonary edema: On noninvasive positive pressure ventilation, FiO2 35% at 12/6. Lower extremities edematous and has Jovany wrap bandage. On medical management. [place] Laborer has been consulted 2. Elevated troponins: 0.058, 0.071. 3. Coronary artery disease status post three-vessel disease status post PCI: Obtain medical record from [facility]mad[facility] clinic to get more information on PCI. On medical management. Aspirin, Plavix, high intensity statin, metoprolol and lisinopril continued. 4. Diabetes mellitus type 2: 5. CKD stage III 6. COPD: Currently seems her symptoms mainly due to heart failure exacerbation not from COPD exacerbation 7. DVT prophylaxis: On subcutaneous heparin
--- NOTE | 2018-06-11 08:31 | CCHN_ITS ---
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 Shortness of breath associated with substernal chest pain which is localized. Patient had cardiac cath on 05/09/2018 found to three-vessel disease with grade 3 MR with EF 30%, inferior basal akinesis and anterior hypokinesis. She had PCI with 3 stents done in [facility] on 05/09/2018. Chest x-ray showed cardiomegaly with pulmonary congestion prominence of hilar region. EKG in ED showed sinus tachycardia at 129 bpm with previous septal infarct. Currently patient is on BiPAP. States his shortness of breath is better. Acute exacerbation of chronic systolic heart failure with flash pulmonary edema: On noninvasive positive pressure ventilation, FiO2 35% at 12/6. Lower extremities edematous and has Jovany wrap bandage. On medical management. [employer] Tiler has been consulted 2. Elevated troponins: 0.058, 0.071. 3. Coronary artery disease status post three-vessel disease status post PCI: Obtain medical record from [facility]madin clinic to get more information on PCI. On medical management. Aspirin, Plavix, high intensity statin, metoprolol and lisinopril continued. 4. Diabetes mellitus type 2: 5. CKD stage III 6. COPD: Currently seems her symptoms mainly due to heart failure exacerbation not from COPD exacerbation 7. DVT prophylaxis: On subcutaneous heparin
[2018-06-11] MEDS: Clopidogrel Bisulfate 75 MG Tablet PO (09:18)
[2018-06-11] MEDS: busPIRone 5 MG Tablet PO ×3 (09:18→20:38)
[2018-06-11] MEDS: Carvedilol 3.125 MG TABLET PO (09:18)
[2018-06-11] MEDS: Furosemide 40 MG/4 ML Vial IV (09:19)
[2018-06-11] MEDS: 0.9% NaCl Peripheral Flush Adult/Peds IV ×2 (09:19→17:44)
[2018-06-11 11:46] LABS: Bedside Glucose 97 mg/dL (70-110)
--- NOTE | 2018-06-11 13:33 | CASEMGMT ---
SAM CM Readmission Note. Pt presented with shortness of breath. Hx of CHF, CKD stage III, COPD. Pt required Bipap 05/03, 35%. Recent hx of PCI and 3 stents 05/09/18. Previous admission: 05/08-05/10/18. Patient was discharged home. Pt lives with and son who assist with care needs. PT/OT ordered, evaluations pending. DC Plan: undetermined. PT/OT evaluations pending.
[2018-06-11] MEDS: Bisacodyl 5 MG Tablet PO (14:26)
--- NOTE | 2018-06-11 15:06 | CHAPLAIN ---
Type of Pastoral Visit _x__ Initial Visit ___ Follow-up Visit ___ On-call Visit ___ General Patient Visit ___ Spiritual Assessment ___ Family Conference ___ Bereavement ___ Rapid Response ___ Code Blue ___ Other (describe below) Pastoral Care Referral From _x__ Patient ___ Family ___ Nurse ___ Physician ___ Curb Builder ___ Nurses Assistant ___ Other (describe below) Sacrament/Intervention _x__ Active listening ___ Anointing ___ Buddhist ___ Bereavement ___ Communion _x__ Emily exploration ___ _x__ Life review _x__ Prayer ___ Reconciliation ___ Sacrament of Sick _x__ Supportive presence ___ Wedding ___ Other (describe below) Pastoral Comments patient reports having anxiety about her health, her breathing, and the wait for scheduled surgery in [place]; pt requests prayers and presence; pt would like future visits of spiritual care
[2018-06-11 17:40] LABS: Bedside Glucose 198 mg/dL (70-110)
[2018-06-11] MEDS: Insulin Lispro 100 UNIT/ML INSULN.PEN SQ (17:43)
[2018-06-11] MEDS: traMADol 50 MG Tablet PO (20:38)
[2018-06-11] MEDS: Atorvastatin Calcium 40 MG Tablet PO (20:38)
[2018-06-12] VITALS (12 sets, daily range): BP systolic 113–146; BP diastolic 61–73; PULSE 77–98; RESP 15–18; TEMP 36.7–36.9; O2SAT 92–98
[2018-06-12] MEDS: Nitroglycerin Oint 1 INCH PACKET TRANSDERM. ×4 (00:23→18:31)
[2018-06-12 00:40] LABS: Bedside Glucose 136 mg/dL (70-110)
[2018-06-12] MEDS: traMADol 50 MG Tablet PO ×2 (04:43→14:07)
[2018-06-12] MEDS: Heparin Injection (Vial) 5,000 UNIT/ML VIAL 5000 UNIT SC ×3 (04:49→21:27)
[2018-06-12] MEDS: busPIRone 5 MG Tablet PO ×3 (04:51→21:27)
[2018-06-12 06:22] LABS: Absolute Neutrophil Count 3.4 X10^3/uL (2.0-7.7); Basophil# 0.04 X10^3/uL; Basophil% 0.6 % (0-1); Eosinophil# 0.69 X10^3/uL; Eosinophils% 9.9 % (0-5); Hematocrit 29.2 % (37-47); Hemoglobin 9.3 g/dl (12.0-15.0); Lymphocyte % 31.6 % (19-41); Mean Corp Hgb Conc 31.8 g/gl (32-36); Mean Corpuscular Hgb 28.5 pg (27.0-32.0); Mean Corpuscular Volume 89.6 fL (81-99); Mean Platelet Vol. 9.3 fl (6.2-12.0); Monocyte# 0.63 X10^3/uL; Monocyte% 9.1 % (0-10); Neutrophil # 3.39 X10^3/uL (2.7-7.7); Neutrophil % 48.7 % (47-70); Platelet Count 319 K/mm3 (150-450); RBC Distribution Width CV 14.8 % (11.6-14.6); RBC Distribution Width SD 48.6 fl (35.1-43.9); Red Blood Count 3.26 M/mm3 (4.2-5.4)
[2018-06-12 06:25] LABS: POSITIVE COUNT NO; POSITIVE DIFFERENTIAL NO; POSITIVE MORPHOLOGY NO
[2018-06-12 07:11] LABS: Bedside Glucose 122 mg/dL (70-110)
--- NOTE | 2018-06-12 08:09 | PCM.PN.HOSP ---
Patient Problems: Active and Suspected Problems (Last Reviewed 06/11/18 @ 05:13 by Kerwin Brizuela MD) Flash pulmonary edema (Acute) Acute exacerbation of CHF (congestive heart failure) (Acute) Subjective: Patient movement on shortness of breath and BiPAP. No fever or chills. Blood pressure is controlled. Heart rate regular. Pulse ox 92% on room air Vitals/I&O's: Vital Signs Temp Pulse Resp BP Pulse Ox 98.3 F 80 18 113/62 96 06/12/18 04:24 06/12/18 07:15 06/12/18 04:24 06/12/18 04:24 06/12/18 04:24 Oxygen Flow Rate (L/min) 1 Oxygen Delivery Method Room Air Weight: 141 lb 1.533 oz Body Mass Index (BMI) 28.5 Intake and Output for Last 24 Hours 06/10/18 06/11/18 06/12/18 23:59 23:59 23:59 Intake Total 570 / 570 200 / 200 Output Total 3150 / 3150 200 / 200 Balance -2580 / -2580 0 / 0 General: Alert, Oriented x3, Cooperative HEENT: Atraumatic, PERRLA, EOMI, Normocephalic Neck: Supple, No JVD, Negative Carotid Bruits Lungs: Diminished - Air entry is diminished in bilateral lung bases, Rales - Basilar rales present, Short of Breath - Shortness of breath improved Cardiovascular: Regular rate, Regular Rhythm, Normal S1, Normal S2, Murmur - Systolic murmur present over left lower sternal border and apex Abdomen: Bowel Sounds Present, Soft, Non Tender, Non-Distended Extremities: Capillary Refill Less than 3 Seconds, Edema Skin: No rashes, No breakdown Musculoskeletal: No Tenderness to Palpation of Joints or Extremities, Arthritic Changes, Muscle Wasting Neurological: Cranial nerves II-XII grossly intact Psych/Mental Status: Normal Affect, Appropriate Microbiology Past 72 Hours 06/11/18 05:10 Mucosa - Nose Respiratory Panel (PCR) - Final Laboratory Results 06/11/18 09:20: Troponin I 0.068 H 06/11/18 11:34: POC Glucose 97 06/11/18 17:24: POC Glucose 198 H 06/12/18 00:25: POC Glucose 136 H 06/12/18 05:55: WBC 7.0, RBC 3.26 L, Hgb 9.3 L, Hct 29.2 L, MCV 89.6, MCH 28.5, MCHC 31.8 L, RDW 14.8 H, RDW Differential 48.6 H, Plt Count 319, MPV 9.3, Immature Gran % (Auto) 0.100, Neut % (Auto) 48.7, Lymph % (Auto) 31.6, [place] % (Auto) 9.1, Eos % (Auto) 9.9 H, Baso % (Auto) 0.6, Absolute Neuts (auto) 3.4, Absolute Lymphs (auto) 2.20, Total Counted Not Reportable 06/12/18 06:51: POC Glucose 122 H Current Medications Acetaminophen (Tylenol) 650 mg PO Q6H PRN PRN PRN Reason: Mild Pain (1-3)/Temp > 100.7 F Albuterol/Ipratropium (Duoneb) 3 ml INHALATION Q6HWA.RT [facility] Last Admin: 06/11/18 19:40 Dose: 3 ml Aspirin (Ecotrin) 81 mg PO DAILYCOX BRANSON Atorvastatin Calcium (Lipitor) 40 mg PO QHS [facility] Last Admin: 06/11/18 20:38 Dose: 40 mg Bisacodyl (Dulcolax) 5 mg PO DAILY PRN PRN PRN Reason: Constipation Last Admin: 06/11/18 14:26 Dose: 5 mg Buspirone HCl (Buspar) 5 mg PO TID [facility] Last Admin: 06/12/18 04:51 Dose: 5 mg Carvedilol (Coreg) 3.125 mg PO DAILYCOX BRANSON Last Admin: 06/11/18 09:18 Dose: 3.1249 mg Clopidogrel Bisulfate (Plavix) 75 mg PO DAILY [facility] Last Admin: 06/11/18 09:18 Dose: 75 mg Dextrose (D50w Syringe) 0 gm IV X1 PRN; Protocol PRN Reason: Hypoglycemia Docusate Sodium (Colace) 100 mg PO BID PRN PRN PRN Reason: Constipation Ergocalciferol (Vitamin D) 50,000 unit PO We@1000 [facility] Furosemide (Lasix) 40 mg PO DAILY [facility] Glucagon () 1 mg IM .X1 PRN PRN Reason: Hypoglycemia Heparin Sodium (Porcine) (Heparin Na) 5,000 unit SC Q8 [facility] Last Admin: 06/12/18 04:49 Dose: 5,000 unit Sodium Chloride () 250 mls @ 15 mls/hr IV .[id number] PRN PRN Reason: SALINE FLUSH Insulin Human Lispro (Humalog Kwikpen (Bkc)) 0 unit SQ Q6 [facility]; Protocol Last Admin: 06/12/18 06:55 Dose: Not Given Lisinopril (Zestril) 10 mg PO DAILY [facility] Last Admin: 06/11/18 09:28 Dose: Not Given Magnesium Hydroxide (Milk Of Magnesia) 30 ml PO DAILY PRN PRN Reason: Constipation Morphine Sulfate () 1 mg IV Q3H PRN PRN PRN Reason: SOB/Severe Pain Last Admin: 06/11/18 17:43 Dose: 1 mg Nitroglycerin (Nitrobid) 1 inch TRANSDERM. Q6 [facility] Last Admin: 06/12/18 04:59 Dose: 1 inch Ondansetron HCl (Zofran) 4 mg IV Q8H PRN PRN PRN Reason: Nausea Rizatriptan Benzoate (Maxalt) 10 mg PO DAILY PRN PRN PRN Reason: MIGRAINE SYMPTOMS Sodium Chloride () 5 - 15 ml IV UD PRN PRN Reason: SALINE FLUSH Last Admin: 06/11/18 17:44 Dose: 10 ml Sodium Chloride ([place] Nasal [place]) 1 spray NASAL PRN PRN PRN Reason: NASAL DRYNESS Tramadol HCl (Ultram) 50 mg PO Q8H PRN PRN PRN Reason: PAIN Last Admin: 06/12/18 04:43 Dose: 50 mg Triamcinolone Acetonide (Triamcinolone Acetonide) 1 applic TP DAILY PRN PRN PRN Reason: ITCHING Medical Necessity - Tobacco Use Smoking Status: Former smoker Tobacco Use: Cigarettes Assessment/Plan All Active Problems (Last Reviewed 06/11/18 @ 05:13 by Kerwin Brizuela MD) Flash pulmonary edema (Acute) Acute exacerbation of CHF (congestive heart failure) (Acute) This is a 62-year-old female with history of coronary artery disease status post 3 stents, chronic systolic heart failure, NYHA class III, CKD stage III and COPD is being admitted in ICU with sudden onset of shortness of breath that woke her up about few hours before admission. Shortness of breath associated with substernal chest pain which is localized. Patient had cardiac cath on 05/09/2018 found to three-vessel disease with grade 3 MR with EF 30%, inferior basal akinesis and anterior hypokinesis. She had PCI with 3 stents done in [facility] on 05/09/2018. Chest x-ray showed cardiomegaly with pulmonary congestion prominence of hilar region. EKG in ED showed sinus tachycardia at 129 bpm with previous septal infarct. 1. Acute exacerbation of chronic systolic heart failure with flash pulmonary edema: On noninvasive positive pressure ventilation, FiO2 35% at 05/03. Patient tolerated BiPAP well and feels much better. Lower extremities edematous and has Jovany wrap bandage. On medical management with Lasix 40 mg daily lisinopril, Coreg, aspirin and Plavix and statin. 2. Elevated troponins: 0.058, 0.071, most clearly from CHF exacerbation. Denies chest pain. 3. Coronary artery disease status post three-vessel disease status post PCI: Obtain medical record from Coumadin clinic to get more information on PCI. On medical management. Aspirin, Plavix, high intensity statin, metoprolol and lisinopril continued.She is scheduled for elective PCI in [facility] this month. 4. Diabetes mellitus type 2: On Accu-Cheks. 5. CKD stage III 6. COPD: Currently seems her symptoms mainly due to heart failure exacerbation not from COPD exacerbation 7. DVT prophylaxis: On subcutaneous heparin Active Medications Acetaminophen (Tylenol) 650 mg PO Q6H PRN PRN PRN Reason: Mild Pain (1-3)/Temp > 100.7 F Albuterol/Ipratropium (Duoneb) 3 ml INHALATION Q6HWA.RT [facility] Last Admin: 06/12/18 13:23 Dose: 3 ml Aspirin (Ecotrin) 81 mg PO DAILYCM [facility] Last Admin: 06/12/18 09:25 Dose: 81 mg Atorvastatin Calcium (Lipitor) 40 mg PO QHS [facility] Last Admin: 06/11/18 20:38 Dose: 40 mg Bisacodyl (Dulcolax) 5 mg PO DAILY PRN PRN PRN Reason: Constipation Last Admin: 06/11/18 14:26 Dose: 5 mg Buspirone HCl (Buspar) 5 mg PO TID [facility] Last Admin: 06/12/18 14:08 Dose: 5 mg Carvedilol (Coreg) 3.125 mg PO DAILYCOX BRANSON Last Admin: 06/12/18 09:25 Dose: 3.1249 mg Clopidogrel Bisulfate (Plavix) 75 mg PO DAILY [facility] Last Admin: 06/12/18 09:25 Dose: 75 mg Dextrose (D50w Syringe) 0 gm IV X1 PRN; Protocol PRN Reason: Hypoglycemia Docusate Sodium (Colace) 100 mg PO BID PRN PRN PRN Reason: Constipation Last Admin: 06/12/18 11:43 Dose: 100 mg Ergocalciferol (Vitamin D) 50,000 unit PO We@1000 ALB[facility]O Furosemide (Lasix) 40 mg PO DAILY [facility] Last Admin: 06/12/18 09:25 Dose: 40 mg Glucagon () 1 mg IM .X1 PRN PRN Reason: Hypoglycemia Heparin Sodium (Porcine) (Heparin Na) 5,000 unit SC Q8 [facility] Last Admin: 06/12/18 14:09 Dose: 5,000 unit Sodium Chloride () 250 mls @ 15 mls/hr IV .[id number] PRN PRN Reason: SALINE FLUSH Insulin Human Lispro (Humalog Kwikpen (Bkc)) 0 unit SQ Q6 [facility]; Protocol Last Admin: 06/12/18 11:45 Dose: 1 u Lisinopril (Zestril) 10 mg PO DAILY [facility] Last Admin: 06/12/18 09:27 Dose: Not Given Magnesium Hydroxide (Milk Of Magnesia) 30 ml PO DAILY PRN PRN Reason: Constipation Morphine Sulfate () 1 mg IV Q3H PRN PRN PRN Reason: SOB/Severe Pain Last Admin: 06/11/18 17:43 Dose: 1 mg Nitroglycerin (Nitrobid) 1 inch TRANSDERM. Q6 [facility] Last Admin: 06/12/18 11:45 Dose: 1 inch Ondansetron HCl (Zofran) 4 mg IV Q8H PRN PRN PRN Reason: Nausea Rizatriptan Benzoate (Maxalt) 10 mg PO DAILY PRN PRN PRN Reason: MIGRAINE SYMPTOMS Sodium Chloride () 5 - 15 ml IV UD PRN PRN Reason: SALINE FLUSH Last Admin: 06/11/18 17:44 Dose: 10 ml Sodium Chloride ([place] Nasal [place]) 1 spray NASAL PRN PRN PRN Reason: NASAL DRYNESS Last Admin: 06/12/18 14:11 Dose: 1 spray Tramadol HCl (Ultram) 50 mg PO Q8H PRN PRN PRN Reason: PAIN Last Admin: 06/12/18 14:07 Dose: 50 mg Triamcinolone Acetonide (Triamcinolone Acetonide) 1 applic TP DAILY PRN PRN PRN Reason: ITCHING Microbiology Past 72 Hours 06/11/18 05:10 Mucosa - Nose Respiratory Panel (PCR) - Final Laboratory Results 06/11/18 17:24: POC Glucose 198 H 06/12/18 00:25: POC Glucose 136 H 06/12/18 05:55: WBC 7.0, RBC 3.26 L, Hgb 9.3 L, Hct 29.2 L, MCV 89.6, MCH 28.5, MCHC 31.8 L, RDW 14.8 H, RDW Differential 48.6 H, Plt Count 319, MPV 9.3, Immature Gran % (Auto) 0.100, Neut % (Auto) 48.7, Lymph % (Auto) 31.6, [place] % (Auto) 9.1, Eos % (Auto) 9.9 H, Baso % (Auto) 0.6, Absolute Neuts (auto) 3.4, Absolute Lymphs (auto) 2.20, Total Counted Not Reportable 06/12/18 05:55: Sodium 137, Potassium 3.7, Chloride 104, Carbon Dioxide 27.0, Anion Gap 6, BUN 35 H, Creatinine 1.44 H, Estim Creat Clear Calc 29.10, Est GFR (MDRD) Af Amer 47 L, Est GFR (MDRD) Non-Af 39 L, BUN/Creatinine Ratio 24.3 H, Glucose 122 H, Calcium 8.1 L 06/12/18 06:51: POC Glucose 122 H 06/12/18 11:36: POC Glucose 166 H Code Visit Inpatient E&M: 16360 Subs Hosp L3
--- NOTE | 2018-06-12 09:09 | ART_ITS ---
Reason For Study: Left foot pain Procedure A bilateral lower extremity continuous wave Doppler with analog waveform analysis and ankle brachial indexes. Left Segmental Pressures Left brachial= 138mmHg. Left posterior tibial artery = 87mmHg. Left dorsalis pedis artery = 85mmHg. Left digit = 55 mmHg. The left dorsalis pedis waveforms are monophasic. The left posterior tibial artery waveforms are monophasic. Right Segmental Pressures Right brachial= 150mmHg. Right posterior tibial artery = 115mmHg. Right dorsalis pedis artery = 107mmHg. Right digit = 79 mmHg. The right dorsalis pedis waveforms are biphasic. The right posterior tibial artery waveforms are biphasic. Indices The right ankle brachial index by the dorsalis pedis is 0.71. The right ankle brachial index by the posterior tibial artery is 0.77. The right digital-brachial index is 0.53. The left ankle brachial index by the dorsalis pedis is 0.57. The left ankle brachial index by the posterior tibial artery is 0.58. The left digital-brachial index is 0.37. Interpretation Summary Abnormal right lower extremity ankle brachial indices well within the range of vascular claudication. The level of the disease cannot be determined on this examination. Markedly abnormal digital PPG consistent with distal small vessel disease. Abnormal left lower extremity ankle brachial indices within the range of rest pain. Abnormal PT and DP doppler waveforms consistent with critical ischemia. Markedly abnormal digital waveforms consistent with severe small vessel disease. Ordering Physician: Jim Sharma Referring Physician: SHEA Jimenez M.D. Performed By: Angel Mccloud RVT
[2018-06-12] MEDS: Carvedilol 3.125 MG TABLET PO (09:25)
[2018-06-12] MEDS: Aspirin E.C. 81 MG Tablet PO (09:25)
[2018-06-12] MEDS: Clopidogrel Bisulfate 75 MG Tablet PO (09:25)
[2018-06-12] MEDS: Furosemide 40 MG Tablet PO (09:25)
[2018-06-12 09:31] LABS: Anion Gap 6 (5-15); BUN 35 mg/dL (7-18); BUN/Creat Ratio 24.3 RATIO (10-20); Calcium,Total 8.1 mg/dL (8.5-10.1); Chloride 104 mmol/L (98-107); Creatinine, Serum 1.44 mg/dL (0.55-1.02); EST Glomerular Filtration Rate 39 mL/min (>60); Est Glom Filt Rate - Afr Amer 47 mL/min (>60); Glucose 122 mg/dL (74-106); Potassium 3.7 mmol/L (3.5-5.1); Sodium Level 137 mmol/L (136-145)
[2018-06-12] MEDS: Docusate Sodium 100 MG Capsule PO (11:43)
[2018-06-12] MEDS: Insulin Lispro 100 UNIT/ML INSULN.PEN SQ (11:45)
[2018-06-12 12:05] LABS: Bedside Glucose 166 mg/dL (70-110)
[2018-06-12] MEDS: Ipratropium/Albuterol Sulfate 3 ML AMPUL.NEB INHALATION (13:23)
[2018-06-12] MEDS: Sodium Chloride 0.65% 1 SPRAY SPRAY.BTL NASAL (14:11)
[2018-06-12 16:55] LABS: Bedside Glucose 136 mg/dL (70-110)
[2018-06-12] MEDS: Acetaminophen 325 MG Tablet 650 MG PO (18:30)
[2018-06-12] MEDS: Ondansetron 4 MG/2 ML Vial IV (18:30)
[2018-06-12] MEDS: Atorvastatin Calcium 40 MG Tablet PO (21:27)
--- NOTE | 2018-06-12 23:51 | CPS ---
pt refuses bipap
[2018-06-13] VITALS (12 sets, daily range): BP systolic 95–162; BP diastolic 60–77; PULSE 76–105; RESP 14–18; TEMP 36.8–37.5; O2SAT 86–97
[2018-06-13] MEDS: Nitroglycerin Oint 1 INCH PACKET TRANSDERM. ×2 (00:39→11:09)
[2018-06-13 00:51] LABS: Bedside Glucose 126 mg/dL (70-110)
[2018-06-13 06:41] LABS: Anion Gap 8 (5-15); BUN 30 mg/dL (7-18); BUN/Creat Ratio 19.2 RATIO (10-20); Calcium,Total 8.2 mg/dL (8.5-10.1); Chloride 104 mmol/L (98-107); Creatinine, Serum 1.56 mg/dL (0.55-1.02); EST Glomerular Filtration Rate 36 mL/min (>60); Est Glom Filt Rate - Afr Amer 43 mL/min (>60); Estimated Creatinine Clearance 26.86 ml/min; Glucose 128 mg/dL (74-106); Potassium 4.2 mmol/L (3.5-5.1); Sodium Level 139 mmol/L (136-145)
[2018-06-13 07:15] LABS: Bedside Glucose 125 mg/dL (70-110)
[2018-06-13] MEDS: Heparin Injection (Vial) 5,000 UNIT/ML VIAL 5000 UNIT SC ×2 (07:23→14:01)
[2018-06-13] MEDS: busPIRone 5 MG Tablet PO ×2 (07:23→14:01)
[2018-06-13] MEDS: Ipratropium/Albuterol Sulfate 3 ML AMPUL.NEB INHALATION (07:25)
--- NOTE | 2018-06-13 08:56 | PCM.DC ---
- Discharge Diagnoses Current Active Problems: Current Active and Chronic Problems (Last Reviewed 06/11/18 @ 05:13 by Kerwin Brizuela MD) Flash pulmonary edema (Acute) Acute exacerbation of CHF (congestive heart failure) (Acute) You will use the following diet at home:: Calorie/Carbohydrate Controlled (specify 1200, 1400, etc) - 1800 ADA diet, Cardiac Your food should be the consistency of: Regular Discharge Activity: May Not Drive Call your doctor if you observe: Fever of 101 or Higher, Shortness of breath, Dizziness, Fainting spells, Swelling in the ankles, Chest pain, Increased palpitations (irregular heartbeat) Additional Instructions: F/U for scheduled PCI with [facility], Dr Flor Allergies/Adverse Reactions: Allergies Penicillins Allergy (Severe, Verified 05/24/18 06:43) Swelling tolerated keflex in past with no issue Medications to take at Discharge Mometasone Furoate [Elocon] 50 gm TP DAILY PRN 12/10/17 Acetaminophen [Tylenol Tablet] 650 mg PO Q6H PRN PRN tablet 12/14/17 Insulin Lispro [Humalog KwikPen] 6 unit SQ 0700,1200,1700 12/20/17 Atorvastatin Calcium [Lipitor] 40 mg PO QHS 05/08/18 Sumatriptan Succinate [Imitrex] 50 mg PO DAILY PRN 05/08/18 Aspirin [Aspirin EC] 81 mg PO DAILY 05/24/18 Carvedilol 3.125 mg PO BID 05/24/18 Clopidogrel Bisulfate [Clopidogrel] 75 mg PO DAILY 05/24/18 Scotts-3 Fatty Acids [[place]-3] 2 cap PO BID 05/24/18 Docusate Sodium 100 mg PO BID PRN PRN 06/11/18 Ergocalciferol (Vitamin D2) [Vitamin D2] 50,000 unit PO QWEEK 06/11/18 Furosemide 40 mg PO DAILY 06/11/18 Sodium Chloride 0.65% [[place] Nasal [place]] 1 spray NASAL PRN PRN 06/11/18 traMADol [Ultram] 50 mg PO Q8H PRN PRN 06/11/18 Albuterol Inhaler [Ventolin Hfa] 2 puff INHALATION Q4H PRN PRN #1 inhaler 06/13/18 Insulin Glargine,Hum.rec.anlog [Lantus] 10 unit SQ QHS #0 06/13/18 Ipratropium/Albuterol Sulfate [Duoneb] 3 ml INHALATION Q6H #30 ampul.neb 06/13/18 busPIRone [Buspar] 5 mg PO TID #0 06/13/18 The following prescriptions were given: Albuterol Inhaler [Ventolin Hfa] 2 puff INHALATION Q4H PRN PRN #1 inhaler PRN Reason: sob Primary Care Physician: Evens Jimenez III, MD [Primary Care Provider] - Please follow up with your Primary Care Physician in: in 2 week Test Results: Test results from this visit will be discussed in further detail at your follow-up appointment, if applicable. Please Follow Up With: Charles Good MD When: in 3-4 weeks
--- NOTE | 2018-06-13 09:03 | DCINST_ITS ---
- Discharge Diagnoses Current Active Problems: Current Active and Chronic Problems (Last Reviewed 06/11/18 @ 05:13 by Kerwin Brizuela MD) Flash pulmonary edema (Acute) Acute exacerbation of CHF (congestive heart failure) (Acute) You will use the following diet at home:: Calorie/Carbohydrate Controlled (specify 1200, 1400, etc) - 1800 ADA diet, Cardiac Your food should be the consistency of: Regular Discharge Activity: May Not Drive Call your doctor if you observe: Fever of 101 or Higher, Shortness of breath, Dizziness, Fainting spells, Swelling in the ankles, Chest pain, Increased palpitations (irregular heartbeat) Additional Instructions: F/U for scheduled PCI with [facility], Dr Flor Allergies/Adverse Reactions: Allergies Penicillins Allergy (Severe, Verified 05/24/18 06:43) Swelling tolerated keflex in past with no issue Medications to take at Discharge Mometasone Furoate [Elocon] 50 gm TP DAILY PRN 12/10/17 Acetaminophen [Tylenol Tablet] 650 mg PO Q6H PRN PRN tablet 12/14/17 Insulin Lispro [Humalog KwikPen] 6 unit SQ 0700,1200,1700 12/20/17 Atorvastatin Calcium [Lipitor] 40 mg PO QHS 05/08/18 Sumatriptan Succinate [Imitrex] 50 mg PO DAILY PRN 05/08/18 Aspirin [Aspirin EC] 81 mg PO DAILY 05/24/18 Carvedilol 3.125 mg PO BID 05/24/18 Clopidogrel Bisulfate [Clopidogrel] 75 mg PO DAILY 05/24/18 [place]-3 Fatty Acids [[place]-3] 2 cap PO BID 05/24/18 Docusate Sodium 100 mg PO BID PRN PRN 06/11/18 Ergocalciferol (Vitamin D2) [Vitamin D2] 50,000 unit PO QWEEK 06/11/18 Furosemide 40 mg PO DAILY 06/11/18 Sodium Chloride 0.65% [[place] Nasal [place]] 1 spray NASAL PRN PRN 06/11/18 traMADol [Ultram] 50 mg PO Q8H PRN PRN 06/11/18 Albuterol Inhaler [Ventolin Hfa] 2 puff INHALATION Q4H PRN PRN #1 inhaler 06/13/18 Insulin Glargine,Hum.rec.anlog [Lantus] 10 unit SQ QHS #0 06/13/18 Ipratropium/Albuterol Sulfate [Duoneb] 3 ml INHALATION Q6H #30 ampul.neb 06/13/18 busPIRone [Buspar] 5 mg PO TID #0 06/13/18 The following prescriptions were given: Albuterol Inhaler [Ventolin Hfa] 2 puff INHALATION Q4H PRN PRN #1 inhaler PRN Reason: sob Primary Care Physician: Evens Jimenez III, MD [Primary Care Provider] - Please follow up with your Primary Care Physician in: in 2 week Test Results: Test results from this visit will be discussed in further detail at your follow- up appointment, if applicable. Please Follow Up With: Charles Good MD When: in 3-4 weeks
--- NOTE | 2018-06-13 09:15 | DS.PCM_ITS ---
Discharge Date and Diagnosis Date of Admission: 06/11/18 Date of Discharge: 06/13/18 - Primary Discharge Diagnosis Active and Suspected Problems (Last Reviewed 06/11/18 @ 05:13 by Kerwin Brizuela MD) Flash pulmonary edema (Acute) Acute exacerbation of CHF (congestive heart failure) (Acute) - Secondary Discharge Diagnosis Chronic Problems (Last Reviewed 06/11/18 @ 05:13 by Kerwin Brizuela MD) Chronic ulcer of buttock (Chronic) Diabetes mellitus (Chronic) Hypertension (Chronic) History of CVA (cerebrovascular accident) (Chronic) Tobacco abuse (Chronic) PVD (peripheral vascular disease) (Chronic) Carotid arterial disease (Chronic) Hyperlipidemia (Chronic) Hospital Course and Treatment Summary of Care Provided: [] his is a 62-year-old female with history of coronary artery disease status post 3 stents, chronic systolic heart failure, NYHA class III, CKD stage III and COPD is being admitted in ICU with sudden onset of shortness of breath that woke her up about few hours before admission. Shortness of breath associated with substernal chest pain which is localized. Patient had cardiac cath on 05/09/2018 found to three-vessel disease with grade 3 MR with EF 30%, inferior basal akinesis and anterior hypokinesis. She had PCI with 3 stents done in [facility] on 05/09/2018. Chest x-ray showed cardiomegaly with pulmonary congestion prominence of hilar region. EKG in ED showed sinus tachycardia at 129 bpm with previous septal infarct. 1. Acute exacerbation of chronic systolic and diastolic combined heart failure with flash pulmonary edema and grade 3 mitral regurgitation, valvular heart disease: On noninvasive positive pressure ventilation, FiO2 35% at /6. Patient tolerated BiPAP well and feels much better. Lower extremities edematous and has Jovany wrap bandage. On medical management with Lasix 40 mg daily lisinopril, Coreg, aspirin and Plavix and statin. 2. Elevated troponins: 0.058, 0.071, most clearly from CHF exacerbation. Denies chest pain. Dizziness, exact etiology unclear. Orthostatic vitals are negative. Patient was given prescription of Antivert. Advised follow-up with ENT to rule out in ner ear cause. Patient does not have other cerebellar signs including dysarthria, ataxia, nystagmus. 3. Coronary artery disease status post three-vessel disease status post PCI: Obtain medical record from [facility] clinic to get more information on PCI. On medical management. Aspirin, Plavix, high intensity statin, metoprolol and lisinopril continued.She is scheduled for elective PCI in [facility] this month. Medical record from [facility] reviewed. As per [facility] note, she was hospitalized from 05/10/2018 to 05/17/2018 for CABG evaluation. At that time echo was done and shows EF 37% with diastolic dysfunction. Chest x-ray showed venous congestion. 4. Diabetes mellitus type 2: On Accu-Cheks. 5. CKD stage III 6. COPD: Currently seems her symptoms mainly due to heart failure exacerbation not from COPD exacerbation 7. DVT prophylaxis: On subcutaneous heparin Discharge medication reconciliation done. Discharge follow-up instructions completed. Discharge process discussed with the patient and all questions were answered to patient's satisfaction. Patient advised to follow-up with the [facility] medical data analyst, Dr. Monteiro for elective PCI. Total time spent, exact 35 minutes on discharge meds reconciliation, examination, review of imaging and blood test and discussion with the patient on follow-up instructions. Subjective: Patient shortness of breath is much better. No fever. Orthostatic is negative. Blood pressure remains similar and different posture of lying, sitting and standing. Complaint of dizziness but seems from anxiety no significant obvious etiology. Objective: General: Alert, Oriented x3, Cooperative HEENT: Atraumatic, PERRLA, EOMI, Normocephalic. No nystagmus Neck: Supple, No JVD, Negative Carotid Bruits Lungs: Diminished - Air entry is diminished in bilateral lung bases, bibasilar occasional rales, Shortness of breath improved Cardiovascular: Regular rate, Regular Rhythm, Normal S1, Normal S2, Murmur - Systolic murmur present over left lower sternal border and apex Abdomen: Bowel Sounds Present, Soft, Non Tender, Non-Distended Extremities: Capillary Refill Less than 3 Seconds, Edema Skin: No rashes, No breakdown Musculoskeletal: No Tenderness to Palpation of Joints or Extremities, Arthritic Changes, Muscle Wasting Neurological: Cranial nerves II-XII grossly intact Psych/Mental Status: Normal Affect, Appropriate - Physical Exam Vital Signs Temp Pulse Resp BP Pulse Ox 98.3 F 84 18 95/62 93 06/13/18 02:45 06/13/18 07:32 06/13/18 07:25 06/13/18 07:23 06/13/18 07:49 Oxygen Flow Rate (L/min) 1 Oxygen Delivery Method Room Air Weight: 139 lb 15.896 oz Body Mass Index (BMI) 28.5 Intake and Output for Last 24 Hours 06/11/18 06/12/18 06/13/18 23:59 23:59 23:59 Intake Total 570 / 570 1050 / 1050 240 / 240 Output Total 3150 / 3150 300 / 300 100 / 100 Balance -2580 / -2580 750 / 750 140 / 140 Microbiology Past 72 Hours 06/11/18 05:10 Respiratory Panel (PCR) - Final Mucosa - Nose Laboratory Tests Past 24 Hrs 06/12/18 06/13/18 05:55 05:45 Sodium 137 139 Potassium 3.7 4.2 Chloride 104 104 Carbon Dioxide 27.0 27.0 Anion Gap 6 8 BUN 35 H 30 H Creatinine 1.44 H 1.56 H Estim Creat Clear Calc 29.10 26.86 Est GFR (MDRD) Af Amer 47 L 43 L Est GFR (MDRD) Non-Af 39 L 36 L BUN/Creatinine Ratio 24.3 H 19.2 Glucose 122 H 128 H Calcium 8.1 L 8.2 L POC Glucose 06/13/18 06/13/18 06/12/18 07:10 00:46 16:52 POC Glucose 125 H 126 H 136 H 06/12/18 11:36 POC Glucose 166 H Discharge Activity: May Not Drive Call your doctor if you observe: Fever of 101 or Higher, Shortness of breath, Dizziness, Fainting spells, Swelling in the ankles, Chest pain, Increased palpitations (irregular heartbeat) Home Medications: Medications to take at Discharge Mometasone Furoate [Elocon] 50 gm TP DAILY PRN 12/10/17 Acetaminophen [Tylenol Tablet] 650 mg PO Q6H PRN PRN tablet 12/14/17 Insulin Lispro [Humalog KwikPen] 6 unit SQ 0700,1200,1700 12/20/17 Atorvastatin Calcium [Lipitor] 40 mg PO QHS 05/08/18 Sumatriptan Succinate [Imitrex] 50 mg PO DAILY PRN 05/08/18 Aspirin [Aspirin EC] 81 mg PO DAILY 05/24/18 Carvedilol 3.125 mg PO BID 05/24/18 Clopidogrel Bisulfate [Clopidogrel] 75 mg PO DAILY 05/24/18 [place]-3 Fatty Acids [[place]-3] 2 cap PO BID 05/24/18 Docusate Sodium 100 mg PO BID PRN PRN 06/11/18 Ergocalciferol (Vitamin D2) [Vitamin D2] 50,000 unit PO QWEEK 06/11/18 Furosemide 40 mg PO DAILY 06/11/18 Sodium Chloride 0.65% [[place] Nasal [place]] 1 spray NASAL PRN PRN 06/11/18 traMADol [Ultram] 50 mg PO Q8H PRN PRN 06/11/18 Albuterol Inhaler [Ventolin Hfa] 2 puff INHALATION Q4H PRN PRN #1 inhaler 06/13/18 Insulin Glargine,Hum.rec.anlog [Lantus] 10 unit SQ QHS #0 06/13/18 Ipratropium/Albuterol Sulfate [Duoneb] 3 ml INHALATION Q6H #30 ampul.neb 06/13/18 busPIRone [Buspar] 5 mg PO TID #0 06/13/18 Following Prescrptions Were Given to Patient: Albuterol Inhaler [Ventolin Hfa] 2 puff INHALATION Q4H PRN PRN #1 inhaler PRN Reason: sob Ipratropium/Albuterol Sulfate [Duoneb] 3 ml INHALATION Q6H #30 ampul.[facility] Primary Care Physician: Evens Jimenez III, MD [Primary Care Provider] - Please follow up with your Primary Care Physician in: in 2 week Please Follow Up With: Charles Good MD When: in 3-4 weeks Medical Necessity - Tobacco Use Smoking Status: Former smoker Tobacco Use: Cigarettes Meaningful Use Info Meaningful Use Diagnoses (Choose all that apply): CHF - CHF JOVANY/ARB ordered at discharge?: Yes Documented LVEF (%): 35 Code Visit Inpatient E&M: 81526 Disch Hosp
--- NOTE | 2018-06-13 09:31 | CASEMGMT ---
Addendum entered by Steph Melton 06/13/18 10:30: This SAM GUTHRIE received call back from ANTONIO Hunter rep at [facility], and she states that she received fax and she is sending to [place] at this time and will call this RN CM back is any further questions/concerns/needs. Sondra VARGAS CM Original Note: Pt states she is active with [facility] at this time. Resumption of care order placed and [facility] aware of pt discharge and states pt is active for RN, PT/OT. Order, discharge summary/instructions, and face sheet faxed to [place] at this time. Dr. Sharma states that pt also needs a nebulizer at discharge and pt would like it sent to [facility] so order faxed with facesheet to [facility] at this time. Call to [facility] and the DME rep is not in yet so message left with her regarding pt at this time. Pt did c/o some dizziness with standing up and Dr. Sharma was made aware at this time. He ordered antivert and orthostatic vitals for pt at this time. Kvng VARGAS aware and voices understanding. Pt states that she does not have a ride until later today. Sondra VARGAS CM
[2018-06-13] MEDS: Furosemide 40 MG Tablet PO (11:08)
[2018-06-13] MEDS: Carvedilol 3.125 MG TABLET PO (11:08)
[2018-06-13] MEDS: Aspirin E.C. 81 MG Tablet PO (11:08)
[2018-06-13] MEDS: Clopidogrel Bisulfate 75 MG Tablet PO (11:08)
[2018-06-13] MEDS: Lisinopril 10 MG Tablet PO (11:09)
--- NOTE | 2018-06-13 11:14 | PCM.DC.SUM ---
Discharge Date and Diagnosis Date of Admission: 06/11/18 Date of Discharge: 06/13/18 - Primary Discharge Diagnosis Active and Suspected Problems (Last Reviewed 06/11/18 @ 05:13 by Kerwin Brizuela MD) Flash pulmonary edema (Acute) Acute exacerbation of CHF (congestive heart failure) (Acute) - Secondary Discharge Diagnosis Chronic Problems (Last Reviewed 06/11/18 @ 05:13 by Kerwin Brizuela MD) Chronic ulcer of buttock (Chronic) Diabetes mellitus (Chronic) Hypertension (Chronic) History of CVA (cerebrovascular accident) (Chronic) Tobacco abuse (Chronic) PVD (peripheral vascular disease) (Chronic) Carotid arterial disease (Chronic) Hyperlipidemia (Chronic) Hospital Course and Treatment Summary of Care Provided: [] his is a 62-year-old female with history of coronary artery disease status post 3 stents, chronic systolic heart failure, NYHA class III, CKD stage III and COPD is being admitted in ICU with sudden onset of shortness of breath that woke her up about few hours before admission. Shortness of breath associated with substernal chest pain which is localized. Patient had cardiac cath on 05/09/2018 found to three-vessel disease with grade 3 MR with EF 30%, inferior basal akinesis and anterior hypokinesis. She had PCI with 3 stents done in [facility] on 05/09/2018. Chest x-ray showed cardiomegaly with pulmonary congestion prominence of hilar region. EKG in ED showed sinus tachycardia at 129 bpm with previous septal infarct. 1. Acute exacerbation of chronic systolic and diastolic combined heart failure with flash pulmonary edema and grade 3 mitral regurgitation, valvular heart disease: On noninvasive positive pressure ventilation, FiO2 35% at /6. Patient tolerated BiPAP well and feels much better. Lower extremities edematous and has Jovany wrap bandage. On medical management with Lasix 40 mg daily lisinopril, Coreg, aspirin and Plavix and statin. 2. Elevated troponins: 0.058, 0.071, most clearly from CHF exacerbation. Denies chest pain. Dizziness, exact etiology unclear. Orthostatic vitals are negative. Patient was given prescription of Antivert. Advised follow-up with ENT to rule out inner ear cause. Patient does not have other cerebellar signs including dysarthria, ataxia, nystagmus. 3. Coronary artery disease status post three-vessel disease status post PCI: Obtain medical record from [facility] clinic to get more information on PCI. On medical management. Aspirin, Plavix, high intensity statin, metoprolol and lisinopril continued.She is scheduled for elective PCI in [facility] this month. Medical record from [facility] reviewed. As per [facility] note, she was hospitalized from 05/10/2018 to 05/17/2018 for CABG evaluation. At that time echo was done and shows EF 37% with diastolic dysfunction. Chest x-ray showed venous congestion. 4. Diabetes mellitus type 2: On Accu-Cheks. 5. CKD stage III 6. COPD: Currently seems her symptoms mainly due to heart failure exacerbation not from COPD exacerbation 7. DVT prophylaxis: On subcutaneous heparin Discharge medication reconciliation done. Discharge follow-up instructions completed. Discharge process discussed with the patient and all questions were answered to patient's satisfaction. Patient advised to follow-up with the [facility] sales associate key holder, Dr. Monteiro for elective PCI. Total time spent, exact 35 minutes on discharge meds reconciliation, examination, review of imaging and blood test and discussion with the patient on follow-up instructions. Subjective: Patient shortness of breath is much better. No fever. Orthostatic is negative. Blood pressure remains similar and different posture of lying, sitting and standing. Complaint of dizziness but seems from anxiety no significant obvious etiology. Objective: General: Alert, Oriented x3, Cooperative HEENT: Atraumatic, PERRLA, EOMI, Normocephalic. No nystagmus Neck: Supple, No JVD, Negative Carotid Bruits Lungs: Diminished - Air entry is diminished in bilateral lung bases, bibasilar occasional rales, Shortness of breath improved Cardiovascular: Regular rate, Regular Rhythm, Normal S1, Normal S2, Murmur - Systolic murmur present over left lower sternal border and apex Abdomen: Bowel Sounds Present, Soft, Non Tender, Non-Distended Extremities: Capillary Refill Less than 3 Seconds, Edema Skin: No rashes, No breakdown Musculoskeletal: No Tenderness to Palpation of Joints or Extremities, Arthritic Changes, Muscle Wasting Neurological: Cranial nerves II-XII grossly intact Psych/Mental Status: Normal Affect, Appropriate - Physical Exam Vital Signs Temp Pulse Resp BP Pulse Ox 98.3 F 84 18 95/62 93 06/13/18 02:45 06/13/18 07:32 06/13/18 07:25 06/13/18 07:23 06/13/18 07:49 Oxygen Flow Rate (L/min) 1 Oxygen Delivery Method Room Air Weight: 139 lb 15.896 oz Body Mass Index (BMI) 28.5 Intake and Output for Last 24 Hours 06/11/18 06/12/18 06/13/18 23:59 23:59 23:59 Intake Total 570 / 570 1050 / 1050 240 / 240 Output Total 3150 / 3150 300 / 300 100 / 100 Balance -2580 / -2580 750 / 750 140 / 140 Microbiology Past 72 Hours 06/11/18 05:10 Respiratory Panel (PCR) - Final Mucosa - Nose Laboratory Tests Past 24 Hrs 06/12/18 06/13/18 05:55 05:45 Sodium 137 139 Potassium 3.7 4.2 Chloride 104 104 Carbon Dioxide 27.0 27.0 Anion Gap 6 8 BUN 35 H 30 H Creatinine 1.44 H 1.56 H Estim Creat Clear Calc 29.10 26.86 Est GFR (MDRD) Af Amer 47 L 43 L Est GFR (MDRD) Non-Af 39 L 36 L BUN/Creatinine Ratio 24.3 H 19.2 Glucose 122 H 128 H Calcium 8.1 L 8.2 L POC Glucose 06/13/18 06/13/18 06/12/18 07:10 00:46 16:52 POC Glucose 125 H 126 H 136 H 06/12/18 11:36 POC Glucose 166 H Discharge Activity: May Not Drive Call your doctor if you observe: Fever of 101 or Higher, Shortness of breath, Dizziness, Fainting spells, Swelling in the ankles, Chest pain, Increased palpitations (irregular heartbeat) Home Medications: Medications to take at Discharge Mometasone Furoate [Elocon] 50 gm TP DAILY PRN 12/10/17 Acetaminophen [Tylenol Tablet] 650 mg PO Q6H PRN PRN tablet 12/14/17 Insulin Lispro [Humalog KwikPen] 6 unit SQ 0700,1200,1700 12/20/17 Atorvastatin Calcium [Lipitor] 40 mg PO QHS 05/08/18 Sumatriptan Succinate [Imitrex] 50 mg PO DAILY PRN 05/08/18 Aspirin [Aspirin EC] 81 mg PO DAILY 05/24/18 Carvedilol 3.125 mg PO BID 05/24/18 Clopidogrel Bisulfate [Clopidogrel] 75 mg PO DAILY 05/24/18 [place]-3 Fatty Acids [[place]-3] 2 cap PO BID 05/24/18 Docusate Sodium 100 mg PO BID PRN PRN 06/11/18 Ergocalciferol (Vitamin D2) [Vitamin D2] 50,000 unit PO QWEEK 06/11/18 Furosemide 40 mg PO DAILY 06/11/18 Sodium Chloride 0.65% [[place] Nasal [place]] 1 spray NASAL PRN PRN 06/11/18 traMADol [Ultram] 50 mg PO Q8H PRN PRN 06/11/18 Albuterol Inhaler [Ventolin Hfa] 2 puff INHALATION Q4H PRN PRN #1 inhaler 06/13/18 Insulin Glargine,Hum.rec.anlog [Lantus] 10 unit SQ QHS #0 06/13/18 Ipratropium/Albuterol Sulfate [Duoneb] 3 ml INHALATION Q6H #30 ampul.neb 06/13/18 busPIRone [Buspar] 5 mg PO TID #0 06/13/18 Following Prescrptions Were Given to Patient: Albuterol Inhaler [Ventolin Hfa] 2 puff INHALATION Q4H PRN PRN #1 inhaler PRN Reason: sob Ipratropium/Albuterol Sulfate [Duoneb] 3 ml INHALATION Q6H #30 ampul.[facility] Primary Care Physician: Evens Jimenez III, MD [Primary Care Provider] - Please follow up with your Primary Care Physician in: in 2 week Please Follow Up With: Charles Good MD When: in 3-4 weeks Medical Necessity - Tobacco Use Smoking Status: Former smoker Tobacco Use: Cigarettes Meaningful Use Info Meaningful Use Diagnoses (Choose all that apply): CHF - CHF JOVANY/ARB ordered at discharge?: Yes Documented LVEF (%): 35 Code Visit Inpatient E&M: 21527 Disch Hosp
[2018-06-13] MEDS: traMADol 50 MG Tablet PO (11:19)
[2018-06-13] MEDS: Meclizine HCl 25 MG Tablet PO (11:20)
--- NOTE | 2018-06-13 11:42 | CASEMGMT ---
RN said patient is having a difficult time with the fact that she is being discharged. Per RN she has been in and out of hospital quite a bit lately and she has had some significant health issues. SW checked in with patient, introduced self and role at [facility]. Patient shared her concerns and frustrations with SW. SW listened and provided emotional support. She said she just needs to calm down. SW asked her how SW could help her do this. Patient politely said she needs to stop talking about it. SW told her SW understands and SW could let her relax. SW told her SW's name again and let her know SW is available should she want to talk more. She thanked SW for stopping by. SW let RN know above. Shanique CONNOR MSW
[2018-06-13 11:56] LABS: Bedside Glucose 119 mg/dL (70-110)
--- NOTE | 2018-06-13 13:56 | CASEMGMT ---
Call to Shital, pt's [facility] CM, and she is updated on all at this time. Pt is scheduled to see Dr. Jimenez tomorrow 06/14/18 at 1540. Pt states she is aware of the appt but unsure if she is able to go d/t 'this dizziness.' Pt states that she has had the same dizziness 'for awhile.' Pt states that this is not a new symptom for her at this time. Pt states she is just very frustrated that 'none of these doctors can figure out what this dizziness is from.' Pt states lives in a 2nd story apartment and does struggle with getting up the stairs with her cane. Pt states that she would like to go home and declines SNF at this time. Yanira SW did attempt to speak with pt regarding her recent testing/dx and anxiety related to same but pt refused to speak with her at that time. Pt states that neither she nor her drive and that they rely on their daughter(who lives across the stringer) to get them where they need to go. Sondra VARGAS CM
[2018-06-13] MEDS: 0.9% NaCl Peripheral Flush Adult/Peds IV (14:00)
[2018-06-13] MEDS: Ondansetron 4 MG/2 ML Vial IV (14:00)
--- NOTE | 2018-06-14 16:04 | CASEMGMT ---
SAM GUTHRIE Discharge Follow-up Phone Call: NARINDERJimmie: Kirsten Strata: 4 Call Date: 06/14/18 Discharge Date: 06/13/18 Time of Call:1600 Duration: 3 min Admitting Diagnosis: CHF, Hypoxic resp failure SAM GUTHRIE completed follow-up phone call after recent hospitalization. Patient states she is doing okay, has been resting. Patient was scheduled to see PCP but rescheduled it for Monday. Patient had no questions regarding discharge instructions. Patient was able to fill prescriptions without any issues. Patient states her breathing is better and has been completing her treatments.
== END 2018-06-13 17:23 | disposition home or self-care (01) | DRG 194 ==
LOC: ED 03:17 → ICU 04:04 → PCU 16:49
PROVIDERS: Admitting Provider Hospitalist; Emergency Provider Emergency Medicine; Family Provider Family Medicine; PCP Family Medicine; Referring Provider Hospitalist; Visit Provider Internal Medicine
DX: I13.0 Hypertensive heart and chronic kidney disease with heart failure and stage 1 through stage 4 chronic kidney disease, or unspecified chronic kidney disease (principal); E11.22 Type 2 diabetes mellitus with diabetic chronic kidney disease; N18.3 Chronic kidney disease, stage 3 (moderate); I50.43 Acute on chronic combined systolic (congestive) and diastolic (congestive) heart failure; E78.5 Hyperlipidemia, unspecified; I25.10 Atherosclerotic heart disease of native coronary artery without angina pectoris; R42 Dizziness and giddiness; J44.9 Chronic obstructive pulmonary disease, unspecified; Z87.891 Personal history of nicotine dependence; Z95.5 Presence of coronary angioplasty implant and graft; Z86.73 Personal history of transient ischemic attack (TIA), and cerebral infarction without residual deficits; J96.91 Respiratory failure, unspecified with hypoxia
CPT/HCPCS: 36415; 71045; 80048; 82962; 83880; 84484; 85025; 87633; 93005; 93922; 94002; 94640; 97162; 97165; 99285; J7030; A4216; J1940; J2405

== ENCOUNTER 2018-07-02 09:59 | Inpatient (IN) | payer MEDICAID, SELFPAY ==
[2018-06-11 04:27] VITALS: BMI 28.5
[2018-07-02] VITALS (13 sets, daily range): BP systolic 143–183; BP diastolic 67–88; PULSE 84–103; RESP 18–33; TEMP 36.7–37.2; O2SAT 88–100; BMI 27.3; BMI 27.1
--- NOTE | 2018-07-02 10:30 | EKG12_ITS ---
Test Reason : Blood Pressure : / mmHG Vent. Rate : 095 BPM Atrial Rate : 095 BPM P-R Int : 148 ms QRS Dur : 084 ms QT Int : 400 ms P-R-T Axes : 070 071 073 degrees QTc Int : 502 ms Sinus rhythm with occasional Premature ventricular complexes Septal infarct , age undetermined Abnormal ECG Confirmed by GENA GARCIA, JAMIE ([id number]), slot editor RAYMUNDO PATEL ([id number]) on 07/04/2018 1:53:36 PM Referred By: TOD Confirmed By:JAMIE AVERY MD
--- NOTE | 2018-07-02 10:30 | RAD_ITS ---
STUDY: X-RAY CHEST REASON FOR EXAM: Female, 62 years old. Increasing shortness of breath. TECHNIQUE: Single AP portable view of the chest. COMPARISON: Comparison is made with prior study dated June 11, 2018. FINDINGS: EKG electrodes are seen. There is evidence of increased interstitial markings in both lungs with vascular congestion in keeping with CHF. Blunting of both costophrenic angles. There is borderline cardiomegaly. Normal mediastinum and tom. Normal visualized pulmonary arteries. There is atherosclerotic tortuosity of the aortic arch and descending thoracic aorta. There are diffuse degenerative changes of the visualized thoracic spine. Normal visualized ribs, clavicles, and shoulders. There is no demonstrated abnormality of the visualized soft tissue structures of the upper abdomen. RAD/Chest 1 View (Portable) IMPRESSION: CHF. Electronically Signed: Veto Giordano MD at 11:09 EST , Service support ,
[2018-07-02] MEDS: Ipratropium/Albuterol Sulfate 3 ML AMPUL.NEB INHALATION ×2 (10:36→19:04)
[2018-07-02 12:06] LABS: Absolute Lymphocyte Count 1.04 X10^3/ul (0.83-4.51); Absolute Neutrophil Count 7.2 X10^3/uL (2.0-7.7); Basophil# 0.05 X10^3/uL; Basophil% 0.6 % (0-1); Eosinophil# 0.32 X10^3/uL; Eosinophils% 3.6 % (0-5); Hematocrit 38.5 % (37-47); Hemoglobin 12.5 g/dl (12.0-15.0); Lymphocyte # 1.04 X10^3/ul (4.0); Lymphocyte % 11.8 % (19-41); Mean Corp Hgb Conc 32.5 g/gl (32-36); Mean Corpuscular Hgb 29.2 pg (27.0-32.0); Mean Platelet Vol. 9.5 fl (6.2-12.0); Monocyte# 0.25 X10^3/uL; Monocyte% 2.8 % (0-10); Neutrophil # 7.16 X10^3/uL (2.7-7.7); Neutrophil % 81.1 % (47-70); Platelet Count 308 K/mm3 (150-450); RBC Distribution Width CV 14.8 % (11.6-14.6); RBC Distribution Width SD 48.6 fl (35.1-43.9); Red Blood Count 4.28 M/mm3 (4.2-5.4); White Blood Count 8.8 K/mm3 (4.4-11.0)
[2018-07-02 12:07] LABS: POSITIVE COUNT NO; POSITIVE DIFFERENTIAL NO; POSITIVE MORPHOLOGY NO
[2018-07-02 12:25] LABS: Anion Gap 12 (5-15); BUN 22 mg/dL (7-18); BUN/Creat Ratio 14.4 RATIO (10-20); Chloride 103 mmol/L (98-107); Creatinine, Serum 1.53 mg/dL (0.55-1.02); EST Glomerular Filtration Rate 37 mL/min (>60); Est Glom Filt Rate - Afr Amer 44 mL/min (>60); Estimated Creatinine Clearance 27.38 ml/min; Glucose 164 mg/dL (74-106); Potassium 3.8 mmol/L (3.5-5.1); Sodium Level 142 mmol/L (136-145)
--- NOTE | 2018-07-02 13:48 | ED.VISSUMM ---
- ER Visit Summary Date of Service: 07/02/18 Chief Complaint: Patient presents with shortness of breath. She has a history of COPD, she also has a history of PTCA and [place] about a month and a half ago. No current chest pain but she does say it is tight in her chest. She presents with hypoxia. No fever chills or cough. Denies any increased weight or edema. Physical Examination: She appears in some respiratory distress Moist mucous membranes, no obvious facial deformity. No significant rhinorrhea or posterior oropharynx erythema No C-spine tenderness supple neck. Regular rate and rhythm without any obvious murmurs Patient has both wheezing and rhonchi, speaking in full sentences without any obvious respiratory distress, unless she ambulates in the she becomes quite tachypneic. Abdomen soft and nontender no guarding or rebound Moves all extremities without any difficulty or pain. Skin does not show any obvious rashes or lesions, no trauma. Alert oriented ?3 with no gross focal deficit Emergency Department Course and Treatment: Patient is found to have CHF, I believe she also had some COPD exacerbation since she improved with nebulizers, she also had wheezing. When she ambulates she is 88% on room air and thus requires oxygen. I believe she needs to be admitted because she is hypoxic, she had her stents in [place] but does not wish to go back there if there is a cardiac etiology she wishes to stay at this hospital, we do have interventional cardiology does not feel comfortable admitting her, she will need an echocardiogram repeat troponins and repeat EKGs. At this time EKG is unremarkable with chronic changes, chest x-ray shows some CHF. Troponin is intermediate. Disposition: To the hospital in guarded condition Impression: CHF exacerbation Hypoxia requiring oxygen COPD This note was generated with [employer] dictation software. It may contain incorrect words, spelling, and punctuation that were not noted in review of the chart prior to signing ED Disposition - Plan for ED Patient: Referrals: Evens Jimenez III, MD [Primary Care Provider] -
--- NOTE | 2018-07-02 14:13 | HP.PCM_ITS ---
Problem List (1) COPD exacerbation Status: Acute (2) Acute exacerbation of CHF (congestive heart failure) Status: Acute Qualifiers: Heart failure type: systolic Qualified Code(s): I50.23 - Acute on chronic systolic (congestive) heart failure (3) Diabetes mellitus Status: Chronic Qualifiers: Diabetes mellitus type: type 2 Diabetes mellitus senior living insulin use: with manager intermediate use Diabetes mellitus complication status: with unspecified complications Qualified Code(s): E11.8 - Type 2 diabetes mellitus with unspecified complications; Z79.4 - senior living (current) use of insulin (4) Hypertension Status: Chronic Qualifiers: Hypertension type: essential hypertension (5) Tobacco abuse Status: Chronic (6) PVD (peripheral vascular disease) Status: Chronic (7) Carotid arterial disease Status: Chronic Qualifiers: Laterality: right (8) Hyperlipidemia Status: Chronic Qualifiers: Hyperlipidemia type: unspecified Qualified Code(s): E78.5 - Hyperlipidemia, unspecified History of Present Illness Date of Admission: 07/02/18 Chief Complaint: Shortness of breath - 1 week The patient is a 62 year old F with past medical history of COPD, former nicotine use disorder, recently stopped smoking, CAD status post 3 stent, chronic systolic heart failure, recently admitted and discharged about 2 weeks ago with acute on chronic systolic CHF. Patient recently had a cardiac catheter done in April 2018 and findings showed LAD lesions in multiple areas, 90%, left circumflex artery with mid circumflex 80-90%, mid to distal 80-90% stenosis of left circumflex artery, left to right collaterals noted, EF was 35%. Patient was referred to the [facility]. She is reported to have had angioplasty and was subsequently discharged. Patient states that she is due to have a couple more procedures but is having difficulty going back to the [facility]. She states that since her discharge, she has not done anything new, been compliant with her diet and medications. Vitals in the ED show temperature of 90 8.0F, heart rate 96, blood pressure 183/88, respiratory rate was 28, she was saturating 88% on room air. Her admitting blood work showed unremarkable CBCD. BMP was unremarkable except for BUN of 22, creatinine 1.53, troponin was elevated at 0.044, BNpep was 1902.6. Her admitting chest x-ray was suggestive of CHF. Past Medical History Past Medical History (Chronic Problems): Chronic Problems (Last Reviewed 06/11/18 @ 05:13 by Kerwin Brizuela MD) Chronic ulcer of buttock (Chronic) Diabetes mellitus (Chronic) Hypertension (Chronic) History of CVA (cerebrovascular accident) (Chronic) Tobacco abuse (Chronic) PVD (peripheral vascular disease) (Chronic) Carotid arterial disease (Chronic) Hyperlipidemia (Chronic) Medical History: Medical History (Last Reviewed 06/11/18 @ 05:13 by Kerwin Brizuela MD) PVD (peripheral vascular disease) (Chronic) I73.9 Carotid arterial disease (Chronic) I77.9 Hyperlipidemia (Chronic) E78.5 Asthma J45.909 CVA (cerebral vascular accident) I63.9 Chronic back pain M54.9, G89.29 Depression F32.9 Diabetes E11.9 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 Z89.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 HTN (hypertension) I10 Allergies Penicillins Allergy (Severe, Verified 05/24/18 06:43) Swelling tolerated keflex in past with no issue Home Medications: Ambulatory Orders Medication Instructions Recorded Mometasone Furoate [[place]] 50 gm TP DAILY PRN 12/10/17 Insulin Lispro [Humalog KwikPen] 3 unit SQ TIDCM 12/20/17 Atorvastatin Calcium [Lipitor] 40 mg PO QHS 05/08/18 Aspirin [Aspirin EC] 81 mg PO DAILY 05/24/18 Carvedilol 3.125 mg PO BID 05/24/18 Clopidogrel Bisulfate [Clopidogrel] 75 mg PO DAILY 05/24/18 [place]-3 Fatty Acids [[place]-3] 2,000 mg PO BID 05/24/18 Ergocalciferol (Vitamin D2) 50,000 unit PO WE 06/11/18 [Vitamin D2] Furosemide 40 mg PO DAILY 06/11/18 Sodium Chloride 0.65% [[place] Nasal 1 spray NASAL PRN PRN 06/11/18 [place]] traMADol [Ultram] 50 mg PO Q8H PRN PRN 06/11/18 Insulin Glargine,Hum.rec.anlog 10 unit SQ QHS #0 06/13/18 [Lantus] Acetaminophen [Tylenol Arthritis] 1,300 mg PO BID PRN PRN 07/02/18 Buspirone HCl 10 mg PO TID 07/02/18 Ipratropium/Albuterol Sulfate 3 ml INHALATION Q6H PRN PRN 07/02/18 [Duoneb] Loratadine 10 mg PO DAILY 07/02/18 Sennosides/Docusate Sodium 2 tab PO BID 07/02/18 [Senna-Docusate Sodium Tablet] Sertraline HCl 50 mg PO DAILY 07/02/18 Surgical History: Surgical History (Last Reviewed 06/11/18 @ 05:13 by Kerwin Brizuela MD) History of esophagogastroduodenoscopy (EGD) Z98.890 S/P carotid endarterectomy Z98.890 S/P colonoscopy Z98.890 Surgical History: - - Patient has undergone right carotid endarterectomy by Dr. iSva Jimenez approximately 7 years ago. She is a Ab0. 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 History Items: Heart Disease, - - Patient's father in his 40s from myocardial infarction. Patient's mother in her 40s from a cerebrovascular accident. Paternal Family History: Family History (Last Updated 11/08/17 @ 13:38 by Melva Ashby) Mother No problems noted. History Items: Heart Disease - There was heart disease in both maternal and paternal side. Review of Systems Constitutional: Reports: Weakness. Denies: Anorexia, Chills, Fever, Weight Change Eyes: Denies: Blurred vision, Cataracts, Conjunctivae Inflammation, Pain, Redness HEENT: Denies: Head Aches, Hearing Changes, Nasal bleeding, Nasal Congestion, Sinus Congestion, Sinus Drainage, Sore Throat Cardiovascular: Reports: Orthopnea, Paroxysmal Noc. Dyspnea. Denies: Chest Pain, Claudication, Edema, Light Headedness, Palpitations Respiratory: Reports: Shortness of Breath, Shortness of breath at rest, Shortness of breath upon exertion, Wheezing. Denies: Cough, Hemoptysis, Sputum production Gastrointestinal: Denies: Abdominal Pain, Hematemesis, Hematochezia, Nausea, Vomiting Genitourinary: Denies: Dysuria, Frequency, Incontinence Gynecological: Denies: Breast symptoms, Excessively long or heavy periods Musculoskeletal: Denies: Joint Pain, Joint stiffness, Joint swelling, Joint Tenderness Skin: Denies: Rash, Wounds Neurological: Denies: Numbness, Tingling, Focal weakness Psychiatric: Denies: Anxiety, Depression, Homicidal Ideations, Suicidal Ideations Hematologic/ Lymphatic: Denies: Easy Bruising, Easy Bleeding VTE Information - Inpt Only VTE Present on Admission: No VTE Pharm Prophylaxis ordered?: Yes Patient Problems: Active and Suspected Problems (Last Reviewed 06/11/18 @ 05:13 by Kerwin Brizuela MD) COPD exacerbation (Acute) - Physical Exam General: Alert, Oriented x3, Cooperative, - - Mild respiratory distress, on 4 L of oxygen HEENT: Atraumatic, PERRLA, EOMI, Normocephalic Oral: Moist Mucosa Neck: Supple, No JVD, Negative Carotid Bruits Lungs: Normal air movement, Diminished - at bilateral lung bases Cardiovascular: Regular rate, Regular Rhythm, Normal S1, Normal S2, No murmurs Abdomen: Bowel Sounds Present, Soft, Non Tender, Non-Distended, No Hepato- splenomegaly Extremities: Edema - trace bilateral Skin: No rashes, No breakdown Musculoskeletal: No Tenderness to Palpation of Joints or Extremities Lymphatic: No Cervical, Supraclavicular, or Inguinal Adenopathy Neurological: Cranial nerves II-XII grossly intact, Neuro grossly intact Psych/Mental Status: Normal Affect, Appropriate Vital Signs Temp Pulse Resp BP Pulse Ox 98.0 F 84 18 179/86 H 98 07/02/18 10:15 07/02/18 13:43 07/02/18 13:43 07/02/18 13:43 07/02/18 13:43 Oxygen Flow Rate (L/min) 4 Oxygen Delivery Method Room Air Weight: 63.503 kg Body Mass Index (BMI) 27.3 Microbiology Past 72 Hours 07/02/18 10:55 Influenza Types A,B Direct FA (DOROTEO) - Final Mucosa - Nose Laboratory Tests Past 24 Hrs 07/02/18 07/02/18 11:50 11:50 WBC 8.8 RBC 4.28 Hgb 12.5 Hct 38.5 MCV 90.0 MCH 29.2 MCHC 32.5 RDW 14.8 H RDW Differential 48.6 H Plt Count 308 MPV 9.5 Immature Gran % (Auto) 0.100 Neut % (Auto) 81.1 H Lymph % (Auto) 11.8 L [place] % (Auto) 2.8 Eos % (Auto) 3.6 Baso % (Auto) 0.6 Absolute Neuts (auto) 7.2 Absolute Lymphs (auto) 1.04 Total Counted Not Reportable Sodium 142 Potassium 3.8 Chloride 103 Carbon Dioxide 27.0 Anion Gap 12 BUN 22 H Creatinine 1.53 H Estim Creat Clear Calc 27.38 Est GFR (MDRD) Af Amer 44 L Est GFR (MDRD) Non-Af 37 L BUN/Creatinine Ratio 14.4 Glucose 164 H Calcium 9.0 Troponin I 0.044 Assessment/Plan All Active Problems (Last Reviewed 06/11/18 @ 05:13 by Kerwin Brizuela MD) Flash pulmonary edema (Acute) Acute exacerbation of CHF (congestive heart failure) (Acute) COPD exacerbation (Acute) 62 year old F with past medical history of COPD, former nicotine use disorder, recently stopped smoking, CAD status post 3 stent, chronic systolic heart failure, recently admitted and discharged about 2 weeks ago with acute on chronic systolic CHF. 1. Acute hypoxic respiratory failure, admitting SPO2 was 88% on room air, secondary to acute on chronic systolic CHF Plan: Admit to PCU, monitor on telemetry, continue heart failure treatment, IV Lasix, incentive spirometer, wean off oxygen for SPO2 more than 94% 2. Acute on chronic systolic CHF, EF 35%, unknown etiology for current exacerbation, likely related to diet, admitting BNP lipase more than 1900, chest x-ray consistent with CHF, continue on IV Lasix, strict I's and O's, CHF protocol, low-salt diet, fluid restriction 3. Possible acute COPD exacerbation, influenza screen negative, respiratory panel pending, no wheezes on my exam; would be soon after breathing treatments and steroids, will continue on breathing treatment and IV steroids for now Consider discontinuation of IV steroids if patient continues not to have wheezes on exam 4. Elevated d-dimer, d-dimer is 0.73 unclear etiology, unable to do CTA because of CKD, unable to do VQ scan to rule out PE until morning, will give Lovenox 60 mg x1, pending VQ scan in the a.m. 5. Elevated troponins, history of CAD status post stents, likely second to demand ischemia, Patient request cardiology consult as she is hoping not to go back to the [facility] for further PCI; hopes to stay in [facility]. 6. Hyperlipidemia, on statin 7. Hypertension, uncontrolled, on carvedilol, will monitor with hydralazine as needed 8. Type II DM, on home insulin, will continue with Accu-Cheks and insulin sliding scale 9. CKD stage III, Cr at baseline, will trend with Lasix treatments 10. DVT PPx- Lovenox SC -received therapeutic dosing x Code Visit Inpatient E&M: 98386 Init Hosp L3
[2018-07-02] MEDS: Furosemide 40 MG/4 ML Vial IV ×2 (14:28→17:48)
--- NOTE | 2018-07-02 14:30 | NURSING ---
116 PAINTSIL ACUTE HYPOXIC RESP FAILURE
[2018-07-02] MEDS: Acetaminophen 325 MG Tablet 650 MG PO (15:33)
[2018-07-02 15:46] LABS: Bedside Glucose 129 mg/dL (70-110)
[2018-07-02 16:07] LABS: D-Dimer Quantitative (DVT/PE) 0.73 FEU/ug/m (0.27-0.49)
--- NOTE | 2018-07-02 17:00 | NM_ITS ---
CLINICAL: Female, 62 years old. 2 month history of shortness of breath. Prior coronary artery catheterization. NUCLEAR VENTILATION/PERFUSION - LUNG TECHNIQUE: The patient was administered 5.7 mCi of Tc MAA followed by a perfusion lung scan. The patient was administered 46.3 mCi of Tc DTPA aerosol followed by a ventilation lung scan. Comparison made to prior chest radiograph dated . FINDINGS: The pulmonary perfusion study demonstrates uniform perfusion throughout both lung castorena. There are no demonstrated segmental or subsegmental perfusion defects The ventilation study demonstrates uniform ventilation throughout both lung castorena. There are no segmental or subsegmental ventilation abnormalities. NM/Lung Scan Vent/Perf IMPRESSION: Normal 99m Tc MAA pulmonary perfusion Tc DTPA aerosol ventilation imaging survey, according to revised PIOPED interpretive criteria. Electronically Signed: Veto Giordano MD at 12:41 EST , Service support ,
--- NOTE | 2018-07-02 17:02 | PCM.CONS.C ---
Reason for Consult Date of Consultation: 07/02/18 Reason for Consultation: Shortness of breath History of Present Illness: The patient is a 62 year old F who had presented here to the hospital with shortness of breath approximately 2 months ago. She was diagnosed as having congestive heart failure and had left ventricular systolic dysfunction with an estimated ejection fraction of 35% with segmental wall motion abnormalities. She also underwent a cardiac catheterization during that visit which demonstrated the following:Left main coronary artery normal. Left anterior descending artery with long areas of multiple 90% stenosis. Left circumflex artery with mid circumflex 80-90% stenosis and mid to distal 80-90% stenosis. Left to right collaterals noted. Dominant right coronary artery which is totally occluded. Severe left ventricular systolic dysfunction with akinetic inferior wall. Based on the above she was transferred to a tertiary care hospital for consideration for coronary artery bypass surgery as well as mitral valve repair. It appears she underwent multivessel angioplasty there and was discharged. The exact procedure results are not available to me at this time and not being obtained. However she presented to the emergency room with the above with no chest pain and wanted to be at bedside here for further evaluation and management. She also has a history of hypertension which appears to be better controlled now as well as hyperlipidemia and obesity. Past Medical History Allergies/Adverse Reactions: Allergies Penicillins Allergy (Severe, Verified 05/24/18 06:43) Swelling tolerated keflex in past with no issue Home Medications: Ambulatory Orders Medication Instructions Recorded Mometasone Furoate [[place]] 50 gm TP DAILY PRN 12/10/17 Insulin Lispro [Humalog KwikPen] 3 unit SQ TIDCM 12/20/17 Atorvastatin Calcium [Lipitor] 40 mg PO QHS 05/08/18 Aspirin [Aspirin EC] 81 mg PO DAILY 05/24/18 Carvedilol 3.125 mg PO BID 05/24/18 Clopidogrel Bisulfate [Clopidogrel] 75 mg PO DAILY 05/24/18 [place]-3 Fatty Acids [[place]-3] 2,000 mg PO BID 05/24/18 Ergocalciferol (Vitamin D2) 50,000 unit PO WE 06/11/18 [Vitamin D2] Furosemide 40 mg PO DAILY 06/11/18 Sodium Chloride 0.65% [[place] Nasal 1 spray NASAL PRN PRN 06/11/18 [place]] traMADol [Ultram] 50 mg PO Q8H PRN PRN 06/11/18 Insulin Glargine,Hum.rec.anlog 10 unit SQ QHS #0 06/13/18 [Lantus] Acetaminophen [Tylenol Arthritis] 1,300 mg PO BID PRN PRN 07/02/18 Buspirone HCl 10 mg PO TID 07/02/18 Ipratropium/Albuterol Sulfate 3 ml INHALATION Q6H PRN PRN 07/02/18 [Duoneb] Loratadine 10 mg PO DAILY 07/02/18 Sennosides/Docusate Sodium 2 tab PO BID 07/02/18 [Senna-Docusate Sodium Tablet] Sertraline HCl 50 mg PO DAILY 07/02/18 Past Medical History (Chronic Problems): Chronic Problems (Last Reviewed 06/11/18 @ 05:13 by Kerwin Brizuela MD) Chronic ulcer of buttock (Chronic) Diabetes mellitus (Chronic) Hypertension (Chronic) History of CVA (cerebrovascular accident) (Chronic) Tobacco abuse (Chronic) PVD (peripheral vascular disease) (Chronic) Carotid arterial disease (Chronic) Hyperlipidemia (Chronic) Surgical History: - - Patient has undergone right carotid endarterectomy by Dr. Siva Jimenez approximately 7 years ago. She is a Ab0. 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 History Items: Heart Disease, - - Patient's father in his 40s from myocardial infarction. Patient's mother in her 40s from a cerebrovascular accident. Paternal Family History: Family History (Last Updated 11/08/17 @ 13:38 by Melva Ashby) Mother No problems noted. History Items: Heart Disease - There was heart disease in both maternal and paternal side. Smoking Status: Former smoker Tobacco Use: Cigarettes Alcohol: None Drugs: None Review of Systems - Review of Systems General: Reports: Fatigue, Malaise. Denies: Fever, Night Sweats HEENT: Denies: Vision Change Cardiovascular: Reports: Shortness of Breath, Shortness of Breath at Rest. Denies: Chest Discomfort, Orthopnea, PND, Peripheral Edema, Palpitations, Lightheadedness, Dizziness, Near Syncope, Syncope Respiratory: Denies: Cough, Sputum Production, Hemoptysis Gastrointestinal: Denies: Hematemesis, Hematochezia, Melena Genitourinary: Denies: Dysuria, Hematuria Muscoloskeletal: Denies: Myalgias Skin: Denies: Rash Psychiatric: Denies: Anxiety Endocrine: Denies: Heat Intolerance Hematologic/ Lymphatic: Denies: Anemia Subjectve: Pleasant lady in no apparent distress Objective: Vital Signs Temp Pulse Resp BP Pulse Ox 98.6 F 88 20 H 159/73 H 100 07/02/18 15:09 07/02/18 15:29 07/02/18 15:09 07/02/18 15:09 07/02/18 15:09 Oxygen Flow Rate (L/min) 1 Oxygen Delivery Method Nasal Cannula Weight: 139 lb 1.6 oz Body Mass Index (BMI) 27.1 General: Awake, Alert, Oriented x 3 HEENT: PERRL, EOMI, Sclera Non Icteric Neck: Supple, Good ROM, No Lymph Node Enlargement Lungs: Clear to auscultation Cardiovascular: Regular Rhythm, Normal S1, Normal S2, No Murmurs, No Rubs, No Gallops Vascular: No Carotid Bruits, Normal Femoral Pulses, Normal Radial Pulses, Normal Dorsalis Pedal Pulse, Normal Posterior Tibial Pulses Abdomen: Bowel Sounds Present, Soft, Non Tender, No HSM, No Organomegaly Extremities: No Cyanosis, No Clubbing, No edema Musculoskeletal: No Erythema Skin: No Rashes Lymphatic: No Lymph Node Enlargement Neurological: No Focal Motor or Sensory Deficit Psych/Mental Status: Appropriate 07/02/18 11:50: WBC 8.8, RBC 4.28, Hgb 12.5, Hct 38.5, MCV 90.0, MCH 29.2, MCHC 32.5, RDW 14.8 H, RDW Differential 48.6 H, Plt Count 308, MPV 9.5, Immature Gran % (Auto) 0.100, Neut % (Auto) 81.1 H, Lymph % (Auto) 11.8 L, [place] % (Auto) 2.8, Eos % (Auto) 3.6, Baso % (Auto) 0.6, Absolute Neuts (auto) 7.2, Total Counted Not Reportable 07/02/18 11:50: Sodium 142, Potassium 3.8, Chloride 103, Carbon Dioxide 27.0, Anion Gap 12, BUN 22 H, Creatinine 1.53 H, Est GFR (MDRD) Af Amer 44 L, Est GFR (MDRD) Non-Af 37 L, BUN/Creatinine Ratio 14.4, Glucose 164 H, Calcium 9.0, Troponin I 0.044 07/02/18 11:50: B-Natriuretic Peptide 1902.6 H 07/02/18 15:35: D-Dimer Quant (PE/DVT) 0.73 H* 07/02/18 15:35: Troponin I 0.048 H Rhythm: EKG: Normal sinus rhythm with no acute changes Assessment/Plan 1. Shortness of breath The etiology of the above is not entirely clear at this particular time. She did have a history of reduced left ventricular systolic function with moderate mitral regurgitation. It appears that she has had some revascularization and it may be prudent to reassess her left ventricular function with an echocardiogram and depending on the findings further recommendations will then be made. 2. Multivessel coronary artery disease Patient has known multivessel coronary artery disease status post revascularization at the [facility] I will review her films to see where she has been revascularized and make further recommendations. 3. History of congestive heart failure Patient has known history of congestive heart failure on diuretics and beta blockers as well as ALEJANDRA inhibitors. The above will be adjusted and optimized. Thank you for allowing me to participate in the care of your patient. Please don't hesitate to call if any issues arise
--- NOTE | 2018-07-02 17:08 | CON.PCM_ITS ---
Reason for Consult Date of Consultation: 07/02/18 Reason for Consultation: Shortness of breath History of Present Illness: The patient is a 62 year old F who had presented here to the hospital with shortness of breath approximately 2 months ago. She was diagnosed as having congestive heart failure and had left ventricular systolic dysfunction with an estimated ejection fraction of 35% with segmental wall motion abnormalities. She also underwent a cardiac catheterization during that visit which demonstrated the following:Left main coronary artery normal. Left anterior descending artery with long areas of multiple 90% stenosis. Left circumflex artery with mid circumflex 80-90% stenosis and mid to distal 80- 90% stenosis. Left to right collaterals noted. Dominant right coronary artery which is totally occluded. Severe left ventricular systolic dysfunction with akinetic inferior wall. Based on the above she was transferred to a tertiary care hospital for consideration for coronary artery bypass surgery as well as mitral valve repair. It appears she underwent multivessel angioplasty there and was discharged. The exact procedure results are not available to me at this time and not being obtained. However she presented to the emergency room with the above with no chest pain and wanted to be at bedside here for further evaluation and management. She also has a history of hypertension which appears to be better controlled now as well as hyperlipidemia and obesity. Past Medical History Allergies/Adverse Reactions: Allergies Penicillins Allergy (Severe, Verified 05/24/18 06:43) Swelling tolerated keflex in past with no issue Home Medications: Ambulatory Orders Medication Instructions Recorded Mometasone Furoate [Elocon] 50 gm TP DAILY PRN 12/10/17 Insulin Lispro [Humalog KwikPen] 3 unit SQ TIDCM 12/20/17 Atorvastatin Calcium [Lipitor] 40 mg PO QHS 05/08/18 Aspirin [Aspirin EC] 81 mg PO DAILY 05/24/18 Carvedilol 3.125 mg PO BID 05/24/18 Clopidogrel Bisulfate [Clopidogrel] 75 mg PO DAILY 05/24/18 Cleghorn-3 Fatty Acids [Cleghorn-3] 2,000 mg PO BID 05/24/18 Ergocalciferol (Vitamin D2) 50,000 unit PO WE 06/11/18 [Vitamin D2] Furosemide 40 mg PO DAILY 06/11/18 Sodium Chloride 0.65% [Valders Nasal 1 spray NASAL PRN PRN 06/11/18 Harrison] traMADol [Ultram] 50 mg PO Q8H PRN PRN 06/11/18 Insulin Glargine,Hum.rec.anlog 10 unit SQ QHS #0 06/13/18 [Lantus] Acetaminophen [Tylenol Arthritis] 1,300 mg PO BID PRN PRN 07/02/18 Buspirone HCl 10 mg PO TID 07/02/18 Ipratropium/Albuterol Sulfate 3 ml INHALATION Q6H PRN PRN 07/02/18 [Duoneb] Loratadine 10 mg PO DAILY 07/02/18 Sennosides/Docusate Sodium 2 tab PO BID 07/02/18 [Senna-Docusate Sodium Tablet] Sertraline HCl 50 mg PO DAILY 07/02/18 Past Medical History (Chronic Problems): Chronic Problems (Last Reviewed 06/11/18 @ 05:13 by Kerwin Brizuela MD) Chronic ulcer of buttock (Chronic) Diabetes mellitus (Chronic) Hypertension (Chronic) History of CVA (cerebrovascular accident) (Chronic) Tobacco abuse (Chronic) PVD (peripheral vascular disease) (Chronic) Carotid arterial disease (Chronic) Hyperlipidemia (Chronic) Surgical History: - - Patient has undergone right carotid endarterectomy by Dr. Siva Jimenez approximately 7 years ago. She is a Ab0. 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 History Items: Heart Disease, - - Patient's father in his 40s from myocardial infarction. Patient's mother in her 40s from a cerebrovascular accident. Paternal Family History: Family History (Last Updated 11/08/17 @ 13:38 by Melva Ashby) Mother No problems noted. History Items: Heart Disease - There was heart disease in both maternal and paternal side. Smoking Status: Former smoker Tobacco Use: Cigarettes Alcohol: None Drugs: None Review of Systems - Review of Systems General: Reports: Fatigue, Malaise. Denies: Fever, Night Sweats HEENT: Denies: Vision Change Cardiovascular: Reports: Shortness of Breath, Shortness of Breath at Rest. Denies: Chest Discomfort, Orthopnea, PND, Peripheral Edema, Palpitations, Lightheadedness, Dizziness, Near Syncope, Syncope Respiratory: Denies: Cough, Sputum Production, Hemoptysis Gastrointestinal: Denies: Hematemesis, Hematochezia, Melena Genitourinary: Denies: Dysuria, Hematuria Muscoloskeletal: Denies: Myalgias Skin: Denies: Rash Psychiatric: Denies: Anxiety Endocrine: Denies: Heat Intolerance Hematologic/ Lymphatic: Denies: Anemia Subjectve: Pleasant lady in no apparent distress Objective: Vital Signs Temp Pulse Resp BP Pulse Ox 98.6 F 88 20 H 159/73 H 100 07/02/18 15:09 07/02/18 15:29 07/02/18 15:09 07/02/18 15:09 07/02/18 15:09 Oxygen Flow Rate (L/min) 1 Oxygen Delivery Method Nasal Cannula Weight: 139 lb 1.6 oz Body Mass Index (BMI) 27.1 General: Awake, Alert, Oriented x 3 HEENT: PERRL, EOMI, Sclera Non Icteric Neck: Supple, Good ROM, No Lymph Node Enlargement Lungs: Clear to auscultation Cardiovascular: Regular Rhythm, Normal S1, Normal S2, No Murmurs, No Rubs, No Gallops Vascular: No Carotid Bruits, Normal Femoral Pulses, Normal Radial Pulses, Normal Dorsalis Pedal Pulse, Normal Posterior Tibial Pulses Abdomen: Bowel Sounds Present, Soft, Non Tender, No HSM, No Organomegaly Extremities: No Cyanosis, No Clubbing, No edema Musculoskeletal: No Erythema Skin: No Rashes Lymphatic: No Lymph Node Enlargement Neurological: No Focal Motor or Sensory Deficit Psych/Mental Status: Appropriate 07/02/18 11:50: WBC 8.8, RBC 4.28, Hgb 12.5, Hct 38.5, MCV 90.0, MCH 29.2, MCHC 32.5, RDW 14.8 H, RDW Differential 48.6 H, Plt Count 308, MPV 9.5, Immature Gran % (Auto) 0.100, Neut % (Auto) 81.1 H, Lymph % (Auto) 11.8 L, [place] % (Auto) 2.8, Eos % (Auto) 3.6, Baso % (Auto) 0.6, Absolute Neuts (auto) 7.2, Total Counted Not Reportable 07/02/18 11:50: Sodium 142, Potassium 3.8, Chloride 103, Carbon Dioxide 27.0, Anion Gap 12, BUN 22 H, Creatinine 1.53 H, Est GFR (MDRD) Af Amer 44 L, Est GFR (MDRD) Non-Af 37 L, BUN/Creatinine Ratio 14.4, Glucose 164 H, Calcium 9.0, Troponin I 0.044 07/02/18 11:50: B-Natriuretic Peptide 1902.6 H 07/02/18 15:35: D-Dimer Quant (PE/DVT) 0.73 H* 07/02/18 15:35: Troponin I 0.048 H Rhythm: EKG: Normal sinus rhythm with no acute changes Assessment/Plan 1. Shortness of breath * The etiology of the above is not entirely clear at this particular time. She did have a history of reduced left ventricular systolic function with moderate mitral regurgitation. It appears that she has had some revascularization and it may be prudent to reassess her left ventricular function with an echocardiogram and depending on the findings further recommendations will then be made. * 2. Multivessel coronary artery disease * Patient has known multivessel coronary artery disease status post revascularization at the [facility] * I will review her films to see where she has been revascularized and make further recommendations. * 3. History of congestive heart failure * Patient has known history of congestive heart failure on diuretics and beta blockers as well as ALEJANDRA inhibitors. * The above will be adjusted and optimized. * * Thank you for allowing me to participate in the care of your patient. Please don't hesitate to call if any issues arise
[2018-07-02] MEDS: traMADol 50 MG Tablet PO (17:12)
--- NOTE | 2018-07-02 17:12 | ECHOD_ITS ---
Reason For Study: DYSPNEA Procedure This was a 2D Doppler, Color Flow transthoracic echocardiogram. Exam performed portable in patient room. Left Ventricle Normal LV size. The estimated ejection fraction is 45 %. Mild to moderate segmental systolic dysfunction (see wall motion). Stage 3 diastolic dysfunction. Infero-Basal: Akinetic. There is mild global hypokinesis of the left ventricle. Right Ventricle Normal right ventricle. Normal systolic function. Atria Normal left atrium. Normal right atrium. Mitral Valve Bileaflet diffuse mitral valve thickening. Moderate (2+) eccentric mitral valve insufficiency. Tricuspid Valve Normal tricuspid valve. Mild focal thickening of the tricuspid valve, anterior leaflet. Moderate (2+) tricuspid valve insufficiency. Pulmonary artery systolic pressure is 60 mmHg. Moderate pulmonary hypertension. Aortic Valve Trisinus/trileaflet aortic valve. Mild focal aortic valve calcification. Trivial aortic valve insufficiency. Pulmonic Valve The pulmonic valve is not well visualized. Great Vessels Normal aortic root. The pulmonary artery is normal size. Normal inferior vena cava. Pericardium/Pleural No pericardial effusion. MMode/2D Measurements & Calculations LVIDd: 5.0 cm IVSd: 1.1 cm Ao root diam: 2.9 cm LVIDs: 3.6 cm LVPWd: 1.1 cm RVDd: 3.5 cm FS: 26.5 % LAV(MOD-bp): 50.3 ml LVAd ap4: 30.4 cm2 SV(MOD-sp4): 52.4 ml LAV(MOD-bp) Indexed: 31.7 ml/m2 EDV(MOD-sp4): 102.9 ml LAV(MOD-sp2): 42.6 ml EDV(sp4-el): 105.6 ml LAV(MOD-sp4): 58.4 ml LVAs ap4: 19.9 cm2 ESV(MOD-sp4): 50.5 ml ESV(sp4-el): 52.0 ml EF(MOD-sp4): 50.9 % EF(sp4-el): 50.8 % SV(sp4-el): 53.6 ml LA A4 area: 19.5 cm2 LA dimension(2D): 4.2 cm RA A4 area: 11.2 cm2 Time Measurements MV dec time: 0.10 sec Doppler Measurements & Calculations MV E max singh: 143.5 cm/sec Med Peak E' Singh: 4.9 cm/sec Ao V2 max: 153.8 cm/sec MV A max singh: 78.8 cm/sec E/E' med: 29.3 Ao max P.5 mmHg MV E/A: 1.8 LV V1 max: 89.6 cm/sec TR max singh: 373.8 cm/sec LV V1 max P.9 mmHg TR max P.3 mmHg Interpretation Summary Normal LV size. The estimated ejection fraction is 45 %. Mild to moderate segmental systolic dysfunction (see wall motion). Stage 3 diastolic dysfunction. Moderate (2+) eccentric mitral valve insufficiency. Pulmonary artery systolic pressure is 60 mmHg. Moderate pulmonary hypertension. Compared to the previous the pulmonary pressures are worse. Ordering Physician: Charles Good Referring Physician: IVY DOOLEY Performed By: Danielle Tariq, HANSEL, RVT
[2018-07-02] MEDS: Enoxaparin 60 MG/0.6 ML Syringe SC (17:45)
[2018-07-02] MEDS: Insulin Lispro 100 UNIT/ML INSULN.PEN SC (17:46)
[2018-07-02] MEDS: busPIRone 5 MG Tablet 10 MG PO (17:47)
[2018-07-02] MEDS: Carvedilol 3.125 MG TABLET PO (21:20)
[2018-07-02] MEDS: Senna/Docusate Sodium 1 Tablet 2 TABLET PO (21:20)
[2018-07-02] MEDS: Atorvastatin Calcium 40 MG Tablet PO (21:20)
[2018-07-02] MEDS: Ketorolac 15 MG/ML Vial IV (21:25)
[2018-07-02] MEDS: Zolpidem Tartrate 5 MG Tablet PO (21:25)
[2018-07-02] MEDS: Insulin Lispro 100 UNIT/ML INSULN.PEN SQ (21:32)
[2018-07-02 21:56] LABS: Bedside Glucose 311 mg/dL (70-110)
[2018-07-03] VITALS (14 sets, daily range): BP systolic 111–152; BP diastolic 58–81; PULSE 81–102; RESP 18–21; TEMP 36.4–36.9; O2SAT 92–98
[2018-07-03] MEDS: busPIRone 5 MG Tablet 10 MG PO ×3 (05:23→21:07)
[2018-07-03 06:34] LABS: Absolute Neutrophil Count 4.1 X10^3/uL (2.0-7.7); Basophil# 0.01 X10^3/uL; Basophil% 0.2 % (0-1); Hematocrit 34.2 % (37-47); Hemoglobin 11.2 g/dl (12.0-15.0); Lymphocyte % 19.1 % (19-41); Mean Corp Hgb Conc 32.7 g/gl (32-36); Mean Corpuscular Hgb 28.8 pg (27.0-32.0); Mean Corpuscular Volume 87.9 fL (81-99); Mean Platelet Vol. 9.8 fl (6.2-12.0); Monocyte# 0.13 X10^3/uL; Monocyte% 2.5 % (0-10); Neutrophil # 4.09 X10^3/uL (2.7-7.7); Platelet Count 290 K/mm3 (150-450); RBC Distribution Width CV 14.7 % (11.6-14.6); RBC Distribution Width SD 47.6 fl (35.1-43.9); Red Blood Count 3.89 M/mm3 (4.2-5.4); White Blood Count 5.2 K/mm3 (4.4-11.0)
[2018-07-03 06:39] LABS: POSITIVE COUNT NO; POSITIVE DIFFERENTIAL NO; POSITIVE MORPHOLOGY NO
[2018-07-03 06:51] LABS: Bedside Glucose 219 mg/dL (70-110)
[2018-07-03 06:57] LABS: Anion Gap 12 (5-15); BUN 29 mg/dL (7-18); BUN/Creat Ratio 17.3 RATIO (10-20); Calcium,Total 8.7 mg/dL (8.5-10.1); Chloride 101 mmol/L (98-107); Creatinine, Serum 1.68 mg/dL (0.55-1.02); EST Glomerular Filtration Rate 33 mL/min (>60); Est Glom Filt Rate - Afr Amer 40 mL/min (>60); Estimated Creatinine Clearance 24.94 ml/min; Glucose 232 mg/dL (74-106); Potassium 3.6 mmol/L (3.5-5.1); Sodium Level 137 mmol/L (136-145)
[2018-07-03] MEDS: Ipratropium/Albuterol Sulfate 3 ML AMPUL.NEB INHALATION ×4 (07:04→19:57)
--- NOTE | 2018-07-03 07:50 | PCM.PN.CARD ---
Subjectve: Patient seen and evaluated. Appears to be doing better this morning. Objective: Vital Signs Temp Pulse Resp BP Pulse Ox 97.6 F L 84 18 134/81 H 96 07/03/18 03:33 07/03/18 03:33 07/03/18 03:33 07/03/18 03:33 07/03/18 03:33 Oxygen Flow Rate (L/min) 0.5 Oxygen Delivery Method Room Air Weight: 136 lb 10.986 oz Body Mass Index (BMI) 27.1 Intake and Output for Last 24 Hours 07/01/18 07/02/18 07/03/18 23:59 23:59 23:59 Intake Total 100 / 100 920 / 920 Output Total 200 / 200 700 / 700 Balance -100 / -100 220 / 220 General: Awake, Alert, Oriented x 3 HEENT: PERRL, EOMI, Sclera Non Icteric Neck: Supple, Good ROM, No Lymph Node Enlargement Lungs: Clear to auscultation Cardiovascular: Regular Rhythm, Normal S1, Normal S2, No Rubs, No Gallops Murmur Murmur: Grade 2/6, Soft, Holosystolic, LLSB Vascular: No Carotid Bruits, Normal Femoral Pulses, Normal Radial Pulses, Normal Dorsalis Pedal Pulse, Normal Posterior Tibial Pulses Abdomen: Bowel Sounds Present, Soft, Non Tender, No HSM, No Organomegaly Extremities: No Cyanosis, No Clubbing, No edema Musculoskeletal: No Erythema Skin: No Rashes Lymphatic: No Lymph Node Enlargement Neurological: No Focal Motor or Sensory Deficit Psych/Mental Status: Appropriate 07/02/18 11:50: WBC 8.8, RBC 4.28, Hgb 12.5, Hct 38.5, MCV 90.0, MCH 29.2, MCHC 32.5, RDW 14.8 H, RDW Differential 48.6 H, Plt Count 308, MPV 9.5, Immature Gran % (Auto) 0.100, Neut % (Auto) 81.1 H, Lymph % (Auto) 11.8 L, [place] % (Auto) 2.8, Eos % (Auto) 3.6, Baso % (Auto) 0.6, Absolute Neuts (auto) 7.2, Total Counted Not Reportable 07/02/18 11:50: Sodium 142, Potassium 3.8, Chloride 103, Carbon Dioxide 27.0, Anion Gap 12, BUN 22 H, Creatinine 1.53 H, Est GFR (MDRD) Af Amer 44 L, Est GFR (MDRD) Non-Af 37 L, BUN/Creatinine Ratio 14.4, Glucose 164 H, Calcium 9.0, Troponin I 0.044 07/02/18 11:50: B-Natriuretic Peptide 1902.6 H 07/02/18 15:35: D-Dimer Quant (PE/DVT) 0.73 H* 07/02/18 15:35: Troponin I 0.048 H 07/02/18 18:27: Troponin I 0.047 H 07/03/18 05:55: WBC 5.2, RBC 3.89 L, Hgb 11.2 L, Hct 34.2 L, MCV 87.9, MCH 28.8, MCHC 32.7, RDW 14.7 H, RDW Differential 47.6 H, Plt Count 290, MPV 9.8, Immature Gran % (Auto) 0.200, Neut % (Auto) 78.0 H, Lymph % (Auto) 19.1, [place]ascade % (Auto) 2.5, Eos % (Auto) 0.0, Baso % (Auto) 0.2, Absolute Neuts (auto) 4.1, Total Counted Not Reportable 07/03/18 05:55: Sodium 137, Potassium 3.6, Chloride 101, Carbon Dioxide 24.0, Anion Gap 12, BUN 29 H, Creatinine 1.68 H, Est GFR (MDRD) Af Amer 40 L, Est GFR (MDRD) Non-Af 33 L, BUN/Creatinine Ratio 17.3, Glucose 232 H, Calcium 8.7 Rhythm: EKG: ECHO: Stress Test: Cardiac Cath: PCI: CT Surgery: Holter monitor: EPS: PPM: CXR: Chest CT Scan: Medical Necessity - Tobacco Use Smoking Status: Former smoker Tobacco Use: Non-smoker Assessment/Plan 1. Shortness of breath The etiology of the above is not entirely clear at this particular time. She did have a history of reduced left ventricular systolic function with moderate mitral regurgitation. It appears that she has had some revascularization and it may be prudent to reassess her left ventricular function with an echocardiogram and depending on the findings further recommendations will then be made. 2. Multivessel coronary artery disease Patient has known multivessel coronary artery disease status post revascularization at the [facility] I will review her films to see where she has been revascularized and make further recommendations. Will likely recatheterize her on Monday and reassess her coronary anatomy. 3. History of congestive heart failure Patient has known history of congestive heart failure on diuretics and beta blockers as well as ALEJANDRA inhibitors. The above will be adjusted and optimized. Thank you for allowing me to participate in the care of your patient. Please don't hesitate to call if any issues arise
[2018-07-03] MEDS: Ketorolac 15 MG/ML Vial IV ×2 (08:44→16:48)
[2018-07-03] MEDS: 0.9% NaCl Peripheral Flush Adult/Peds IV ×3 (08:44→18:29)
[2018-07-03] MEDS: Glucerna Shake 120 ML LIQUID PO ×3 (08:46→18:33)
[2018-07-03] MEDS: Carvedilol 3.125 MG TABLET PO ×2 (08:47→21:07)
[2018-07-03] MEDS: Aspirin E.C. 81 MG Tablet PO (08:47)
[2018-07-03] MEDS: Loratadine 10 MG Tablet PO (08:47)
[2018-07-03] MEDS: Furosemide 40 MG Tablet PO (08:48)
[2018-07-03] MEDS: Clopidogrel Bisulfate 75 MG Tablet PO (08:48)
[2018-07-03] MEDS: Sertraline 50 MG Tablet PO (08:49)
--- NOTE | 2018-07-03 08:58 | RAD_ITS ---
STUDY: X-RAY CHEST REASON FOR EXAM: Female, 62 years old. Acute respiratory failure. TECHNIQUE: PA and lateral views of the chest. COMPARISON: Comparison is made with prior study dated July 02, 2018. FINDINGS: EKG electrodes are seen. Stable blunting of the right cardiac phrenic angle with mild residual right basilar atelectasis. The CHF has improved. Minimal changes persist. There is borderline cardiomegaly. Normal mediastinum and tom. Normal visualized pulmonary arteries. Normal visualized aortic arch and descending thoracic aorta. There are diffuse degenerative changes of the visualized thoracic spine. Normal visualized ribs, clavicles, and shoulders. There is no demonstrated abnormality of the visualized soft tissue structures of the upper abdomen. RAD/Chest PA and Lateral IMPRESSION: Improvement in the CHF with residual blunting of the right costophrenic angle and mild increased markings at the right lung base. Electronically Signed: Veto Giordano MD at 15:20 EST , Service support ,
--- NOTE | 2018-07-03 11:10 | CASEMGMT ---
RN CM Assessment Presentation: COPD/CHF exacerbation. Shortness of breath at home, 88% RA on admission. Presently pt is on RA Intro role of CM and purpose of RN CM assessment. PCP: Dr. Evens Jimenez III Preferred Pharmacy: [facility] Insurance: [employer] Prescription Benefit: yes LNOK: , Sunil Solorio Living Arrangements: Second floor apartment with total 18 steps into apartment. Pt states she is able to do stairs, but goes slow and has someone help her. States she is generally independent @ home and assists when needed. Transportation: Neither or pt drive. She states she uses [employer]. Spoke with pt re: [facility] Transportation for hospital affiliated appointments. Anticipate will use [facility] Transportation for ride home. DME: WW, cane, quad cane, shower chair, nebulizer. [employer] ok for DME needs. HHC: [facility] HHS: RN/PT/OT. Call to [facility] to update and information faxed. DC PLAN: Anticipate home w/resumption [facility] on dc. May need Home oxygen testing if using O2 @ [facility]
[2018-07-03] MEDS: Insulin Lispro 100 UNIT/ML INSULN.PEN SC ×3 (11:33→18:35)
[2018-07-03] MEDS: traMADol 50 MG Tablet PO (11:33)
[2018-07-03] MEDS: Insulin Lispro 100 UNIT/ML INSULN.PEN SQ ×4 (11:34→21:10)
[2018-07-03 11:46] LABS: Bedside Glucose 319 mg/dL (70-110)
--- NOTE | 2018-07-03 12:38 | PCA ---
states she had stents placed at [facility] at the end of 2018.faxed signed release of info to [facility] medical records dept. at 0830. 12 noon- return fax from [facility] states she was not a patient there. Asked her again where she had stent procedure, [facility] states [facility] in [place]. Release of info sent to [facility] at 1220. Followed with phone call and voicemail.
--- NOTE | 2018-07-03 13:09 | PN_ITS ---
<Indu Royal - Last Filed: 07/03/18 13:09> Patient Problems: Active and Suspected Problems (Last Reviewed 06/11/18 @ 05:13 by Kerwin Brizuela MD) COPD exacerbation (Acute) Subjective: Patient seen and examined. Reports shortness of breath is improved from admission. Reports increased shortness of breath when lying flat. Denies other associated complaints. - Physical Exam General: Alert, Oriented x3, Cooperative, No apparent distress, - - Appears older than stated age HEENT: Atraumatic, PERRLA, EOMI, Normocephalic Oral: Moist Mucosa Neck: Supple, No JVD, Negative Carotid Bruits Lungs: Clear to auscultation, Diminished Cardiovascular: Regular rate, Regular Rhythm, Normal S1, Normal S2, No murmurs Abdomen: Bowel Sounds Present, Soft, Non Tender, Non-Distended Extremities: No clubbing, No cyanosis, No edema, Capillary Refill Less than 3 Seconds Skin: No rashes, No breakdown Musculoskeletal: No Tenderness to Palpation of Joints or Extremities Neurological: Cranial nerves II-XII grossly intact, Neuro grossly intact Psych/Mental Status: Normal Affect, Appropriate Vital Signs Temp Pulse Resp BP Pulse Ox 97.8 F 82 19 H 134/72 H 97 07/03/18 08:34 07/03/18 11:03 07/03/18 11:03 07/03/18 08:34 07/03/18 08:34 Oxygen Flow Rate (L/min) 0.5 Oxygen Delivery Method Room Air Weight: 136 lb 10.986 oz Body Mass Index (BMI) 27.1 Intake and Output for Last 24 Hours 07/01/18 07/02/18 07/03/18 23:59 23:59 23:59 Intake Total 100 / 100 1545 / 1545 Output Total 200 / 200 800 / 800 Balance -100 / -100 745 / 745 Microbiology Past 72 Hours 07/02/18 16:10 Respiratory Panel (PCR) - Final Mucosa - Nasopharyngeal 07/02/18 10:55 Influenza Types A,B Direct FA (DOROTEO) - Final Mucosa - Nose Laboratory Tests Past 24 Hrs 07/02/18 07/02/18 07/02/18 11:50 15:35 15:35 WBC RBC Hgb Hct MCV MCH MCHC RDW RDW Differential Plt Count MPV Immature Gran % (Auto) Neut % (Auto) Lymph % (Auto) [place] % (Auto) Eos % (Auto) Baso % (Auto) Absolute Neuts (auto) Absolute Lymphs (auto) Total Counted D-Dimer Quant (PE/DVT) 0.73 H* Sodium Potassium Chloride Carbon Dioxide Anion Gap BUN Creatinine Estim Creat Clear Calc Est GFR (MDRD) Af Amer Est GFR (MDRD) Non-Af BUN/Creatinine Ratio Glucose Calcium Troponin I 0.048 H B-Natriuretic Peptide 1902.6 H 07/02/18 07/03/18 07/03/18 18:27 05:55 05:55 WBC 5.2 RBC 3.89 L Hgb 11.2 L Hct 34.2 L MCV 87.9 MCH 28.8 MCHC 32.7 RDW 14.7 H RDW Differential 47.6 H Plt Count 290 MPV 9.8 Immature Gran % (Auto) 0.200 Neut % (Auto) 78.0 H Lymph % (Auto) 19.1 [place] % (Auto) 2.5 Eos % (Auto) 0.0 Baso % (Auto) 0.2 Absolute Neuts (auto) 4.1 Absolute Lymphs (auto) 1.00 Total Counted Not Reportable D-Dimer Quant (PE/DVT) Sodium 137 Potassium 3.6 Chloride 101 Carbon Dioxide 24.0 Anion Gap 12 BUN 29 H Creatinine 1.68 H Estim Creat Clear Calc 24.94 Est GFR (MDRD) Af Amer 40 L Est GFR (MDRD) Non-Af 33 L BUN/Creatinine Ratio 17.3 Glucose 232 H Calcium 8.7 Troponin I 0.047 H B-Natriuretic Peptide POC Glucose 07/03/18 07/03/18 07/02/18 11:25 06:44 21:29 POC Glucose 319 H 219 H 311 H 07/02/18 15:38 POC Glucose 129 H Medical Necessity - Tobacco Use Smoking Status: Former smoker Tobacco Use: Non-smoker Assessment/Plan All Active Problems (Last Reviewed 06/11/18 @ 05:13 by Kerwin Brizuela MD) Flash pulmonary edema (Acute) Acute exacerbation of CHF (congestive heart failure) (Acute) COPD exacerbation (Acute) 1. Acute hypoxic respiratory insufficiency secondary to acute on chronic combined systolic/diastolic CHF-BNP greater than 1900. Chest x-ray on admission consistent with CHF. Echocardiogram showed an EF of 45%, mild to moderate segmental systolic dysfunction, stage III diastolic dysfunction, moderate mitral valve insufficiency, pulmonary artery systolic pressure 60 mmHg. Transition to p.o. Lasix per cardiology. Strict I&O. Daily weight. Fluid restriction. Cardiology following. Plan for cardiac catheterization on Monday to reassess coronary arteries given history of CAD status post revascularization. D-dimer elevated, VQ scan negative. Repeat chest x-ray pending. 2. Indeterminate troponin-suspected demand ischemia secondary to #1. However plan for cath to rule out underlying CAD etiology. 3. CAD status post PCI-continue aspirin, Plavix, statin, carvedilol. Plan for cardiac catheterization on Monday as noted above. 4. Chronic COPD-do not suspect acute exacerbation. Respiratory and influenza negative. Patient denies URI sx. IV steroids discontinued. 5. Hypertension-stable, continue carvedilol regimen. 6. Type 2 diabetes [id number] with sliding scale insulin. 7. Chronic kidney disease stage III-at baseline, trend BMP. 8. Hyperlipidemia-continue statin. 9. History of tobacco use-patient states she has been tobacco free for 2 months. Encouraged continued cessation. DVT prophylaxis-Lovenox subcu This patient was seen by ORIN Hadley under the supervision of Dr. Neely. <Jose Neely - Last Filed: 07/03/18 17:07> Subjective: Breathing better. Reports daily, persistent headaches. Has never seen a headache specialist. - Physical Exam General: Alert, No apparent distress, - HEENT: Atraumatic, Normocephalic Oral: Moist Mucosa, No Gingival or Mucosal Lesions/ Ulcerations Neck: No JVD, Negative Hepatojugular Reflux Lungs: Diminished Cardiovascular: Regular rate, Regular Rhythm, Normal S1, Normal S2, No murmurs Abdomen: Bowel Sounds Present, Soft, Non Tender, Non-Distended Extremities: No edema, No Calf Tenderness Psych/Mental Status: Normal Affect, Appropriate Vital Signs Temp Pulse Resp BP Pulse Ox 36.9 C 86 20 H 111/58 L 98 07/03/18 14:48 07/03/18 14:59 07/03/18 14:59 07/03/18 14:48 07/03/18 14:48 Oxygen Flow Rate (L/min) 2 Oxygen Delivery Method Nasal Cannula Weight: 62 kg Body Mass Index (BMI) 27.1 Intake and Output for Last 24 Hours 07/01/18 07/02/18 07/03/18 23:59 23:59 23:59 Intake Total 100 / 100 1545 / 1545 Output Total 200 / 200 800 / 800 Balance -100 / -100 745 / 745 Microbiology Past 72 Hours 07/02/18 16:10 Respiratory Panel (PCR) - Final Mucosa - Nasopharyngeal 07/02/18 10:55 Influenza Types A,B Direct FA (DOROTEO) - Final Mucosa - Nose Laboratory Tests Past 24 Hrs 07/02/18 07/03/18 07/03/18 18:27 05:55 05:55 WBC 5.2 RBC 3.89 L Hgb 11.2 L Hct 34.2 L MCV 87.9 MCH 28.8 MCHC 32.7 RDW 14.7 H RDW Differential 47.6 H Plt Count 290 MPV 9.8 Immature Gran % (Auto) 0.200 Neut % (Auto) 78.0 H Lymph % (Auto) 19.1 [place] % (Auto) 2.5 Eos % (Auto) 0.0 Baso % (Auto) 0.2 Absolute Neuts (auto) 4.1 Absolute Lymphs (auto) 1.00 Total Counted Not Reportable Sodium 137 Potassium 3.6 Chloride 101 Carbon Dioxide 24.0 Anion Gap 12 BUN 29 H Creatinine 1.68 H Estim Creat Clear Calc 24.94 Est GFR (MDRD) Af Amer 40 L Est GFR (MDRD) Non-Af 33 L BUN/Creatinine Ratio 17.3 Glucose 232 H Calcium 8.7 Troponin I 0.047 H POC Glucose 07/03/18 07/03/18 07/03/18 13:53 11:25 06:44 POC Glucose 352 H 319 H 219 H 07/02/18 21:29 POC Glucose 311 H Assessment/Plan Patient seen and examined independently. Data reviewed. I agree with the above note by the nurse practitioner. 1. Acute hypoxic respiratory insufficiency Improved. Currently stable off oxygen Secondary to CHF 2. acute HFrEF Back on the oral Lasix. Appears compensated at this time. 3. Migraine Patient has daily migraines for several months but has never sought attention for that. Her current headache is in line with her chronic migraines. May be a component of analgesic rebound therefore, I will discontinue the Ultram. We will give her a dose of to see if that can break the cycle of her migraines. Start Topamax 100/daily for prophylaxis. Code Visit Inpatient E&M: 18480 Subs Hosp L2
[2018-07-03] MEDS: Acetaminophen 325 MG Tablet 650 MG PO (13:58)
[2018-07-03 14:11] LABS: Bedside Glucose 352 mg/dL (70-110)
--- NOTE | 2018-07-03 15:08 | PCA ---
Records received from [facility]
--- NOTE | 2018-07-03 16:07 | PCM.PN.BLA ---
Progress Note The records were obtained from [facility] and it was noted that she underwent a repeat cardiac catheterization on 05/18/2018. It demonstrated severe triple-vessel disease as was noted prior and she underwent angioplasty and stenting with a 2.0 x 30 mm resolute stent and a 3.0 x 22 mm drug-eluting stent from the middle third of the left circumflex artery into the third obtuse marginal vessel. She also underwent successful deployment of an overlapping resolute 2.0 x 30 mm [place] stent and a 2.5 x 34 mm drug-eluting stents from the proximal LAD into the middle third of the first diagonal vessel. The plan was for the patient to come back for a chronic total occlusion intervention in a month to the right coronary artery. The patient apparently required transfusion of 3 units of packed red blood cells. Echocardiogram which was performed at that time also demonstrated an ejection fraction of 35% with moderate mitral regurgitation and estimated right ventricular systolic pressure almost 50 mmHg. Based on the above I may recommend that we relook at her coronary anatomy next week and make a decision regarding sending her back for a [employer] M[employer] OPERATOR angioplasty or mitral valve percutaneous clip.
--- NOTE | 2018-07-03 16:12 | PN_ITS ---
Progress Note The records were obtained from [facility] and it was noted that she underwent a repeat cardiac catheterization on 05/18/2018. It demonstrated severe triple-vessel disease as was noted prior and she underwent angioplasty and stenting with a 2.0 x 30 mm resolute stent and a 3.0 x 22 mm drug-eluting stent from the middle third of the left circumflex artery into the third obtuse marginal vessel. She also underwent successful deployment of an overlapping resolute 2.0 x 30 mm [place] stent and a 2.5 x 34 mm drug-eluting stents from the proximal LAD into the middle third of the first diagonal vessel. The plan was for the patient to come back for a chronic total occlusion intervention in a month to the right coronary artery. The patient apparently required transfusion of 3 units of packed red blood cells. Echocardiogram which was performed at that time also demonstrated an ejection fraction of 35% with moderate mitral regurgitation and estimated right ventricular systolic pressure almost 50 mmHg. Based on the above I may recommend that we relook at her coronary anatomy next week and make a decision regarding sending her back for a TUNA [employer] SE[employer]ER angioplasty or mitral valve percutaneous clip.
--- NOTE | 2018-07-03 16:44 | ECHOTEE_ITS ---
Reason For Study: MURMUR Medication SARA probe passed without difficulty. No complications were noted. Cetacaine Topical Kirkman given X3 orally. Versed 1 mg given slow IVP. Fentanyl 25 mcg given slow IVP. Left Ventricle Normal LV size. The estimated ejection fraction is 45 %. Posterior-Basal: Hypokinetic. There are regional wall motion abnormalities as specified. Anterio-Basal: Normal. Infero-Basal: Akinetic. Basal inferoseptal: Hypokinetic. The rest of the wall segments are normal. Atria Intact atrial septum. The left atrium is moderately enlarged. No thrombus is detected in the left atrial appendage. Normal right atrium. Mitral Valve Mild diffuse mitral valve thickening. Moderately severe (3+) eccentric mitral valve insufficiency. Tricuspid Valve Normal tricuspid valve. Moderate (2+) tricuspid valve insufficiency. Aortic Valve Trisinus/trileaflet aortic valve. Pulmonic Valve Normal pulmonic valve. Vessels Normal aortic root. Moderate atherosclerosis of the aortic arch. Mobile atheroma(s)of the aortic arch. Mobile structure measuring 0.7 cm. Pericardium No pericardial effusion. Interpretation Summary Normal LV size. The estimated ejection fraction is 45 %. Mild diffuse mitral valve thickening. Moderately severe (3+) eccentric mitral valve insufficiency. Moderate (2+) tricuspid valve insufficiency. Ordering Physician: Charles Good Referring Physician: IVY DOOLEY Performed By: Danielle Tariq, RDCS, RVT
[2018-07-03 17:16] LABS: Bedside Glucose 244 mg/dL (70-110)
[2018-07-03] MEDS: Topiramate 100 MG Tablet PO (18:33)
[2018-07-03] MEDS: Atorvastatin Calcium 40 MG Tablet PO (21:07)
[2018-07-03] MEDS: Zolpidem Tartrate 5 MG Tablet PO (21:12)
[2018-07-03 23:06] LABS: Bedside Glucose 222 mg/dL (70-110)
[2018-07-04] VITALS (17 sets, daily range): BP systolic 109–156; BP diastolic 54–82; PULSE 82–106; RESP 16–24; TEMP 36.4–37.2; O2SAT 94–98; BMI 26.6
[2018-07-04] MEDS: busPIRone 5 MG Tablet 10 MG PO ×3 (06:16→21:44)
[2018-07-04 06:23] LABS: Hematocrit 32.8 % (37-47); Hemoglobin 10.4 g/dl (12.0-15.0); Mean Corp Hgb Conc 31.7 g/gl (32-36); Mean Corpuscular Hgb 28.3 pg (27.0-32.0); Mean Corpuscular Volume 89.4 fL (81-99); Mean Platelet Vol. 10.2 fl (6.2-12.0); Platelet Count 287 K/mm3 (150-450); RBC Distribution Width CV 14.4 % (11.6-14.6); Red Blood Count 3.67 M/mm3 (4.2-5.4); White Blood Count 9.5 K/mm3 (4.4-11.0)
[2018-07-04 06:25] LABS: Scan Indicated on CBC? Y/N NO
[2018-07-04 06:42] LABS: Anion Gap 12 (5-15); BUN 47 mg/dL (7-18); BUN/Creat Ratio 24.4 RATIO (10-20); Calcium,Total 8.5 mg/dL (8.5-10.1); Chloride 98 mmol/L (98-107); Creatinine, Serum 1.93 mg/dL (0.55-1.02); EST Glomerular Filtration Rate 28 mL/min (>60); Est Glom Filt Rate - Afr Amer 34 mL/min (>60); Estimated Creatinine Clearance 21.71 ml/min; Glucose 296 mg/dL (74-106); Sodium Level 135 mmol/L (136-145)
[2018-07-04] MEDS: Ipratropium/Albuterol Sulfate 3 ML AMPUL.NEB INHALATION ×3 (06:48→18:19)
[2018-07-04 07:16] LABS: Bedside Glucose 264 mg/dL (70-110)
--- NOTE | 2018-07-04 12:14 | PCM.PROGNOTE ---
<Indu Royal - Last Filed: 07/04/18 12:25> Patient Problems: Active and Suspected Problems (Last Reviewed 06/11/18 @ 05:13 by Kerwin Brizuela MD) COPD exacerbation (Acute) Subjective: Patient seen and examined. Shortness of breath improved. Underwent SARA this morning. Denies current complaints. - Physical Exam General: Alert, Oriented x3, Cooperative HEENT: Atraumatic, PERRLA, EOMI, Normocephalic Neck: Supple, No JVD, Negative Carotid Bruits Lungs: Clear to auscultation, Diminished Cardiovascular: Regular rate, Regular Rhythm, Normal S1, Normal S2, No murmurs Abdomen: Bowel Sounds Present, Soft, Non Tender, Non-Distended Extremities: No clubbing, No cyanosis, No edema, Capillary Refill Less than 3 Seconds Skin: No rashes, No breakdown Musculoskeletal: No Tenderness to Palpation of Joints or Extremities Neurological: Cranial nerves II-XII grossly intact, Neuro grossly intact Psych/Mental Status: Normal Affect, Appropriate Vital Signs Temp Pulse Resp BP Pulse Ox 98 F 91 16 109/54 L 96 07/04/18 11:48 07/04/18 11:48 07/04/18 11:48 07/04/18 11:48 07/04/18 11:48 Oxygen Flow Rate (L/min) 2 Oxygen Delivery Method Room Air Weight: 138 lb 14.259 oz Body Mass Index (BMI) 26.6 Intake and Output for Last 24 Hours 07/02/18 07/03/18 07/04/18 23:59 23:59 23:59 Intake Total 100 / 100 2510 / 2510 30 / 30 Output Total 200 / 200 800 / 800 300 / 300 Balance -100 / -100 1710 / 1710 -270 / -270 Microbiology Past 72 Hours 07/02/18 16:10 Respiratory Panel (PCR) - Final Mucosa - Nasopharyngeal 07/02/18 10:55 Influenza Types A,B Direct FA (DOROTEO) - Final Mucosa - Nose Laboratory Tests Past 24 Hrs 07/04/18 07/04/18 05:25 05:25 WBC 9.5 RBC 3.67 L Hgb 10.4 L Hct 32.8 L MCV 89.4 MCH 28.3 MCHC 31.7 L RDW 14.4 RDW Differential 46.0 H Plt Count 287 MPV 10.2 Sodium 135 L Potassium 4.0 Chloride 98 Carbon Dioxide 25.0 Anion Gap 12 BUN 47 H Creatinine 1.93 H Estim Creat Clear Calc 21.71 Est GFR (MDRD) Af Amer 34 L Est GFR (MDRD) Non-Af 28 L BUN/Creatinine Ratio 24.4 H Glucose 296 H Calcium 8.5 POC Glucose 07/04/18 07/03/18 07/03/18 07:08 21:00 16:40 POC Glucose 264 H 222 H 244 H 07/03/18 13:53 POC Glucose 352 H Medical Necessity - Tobacco Use Smoking Status: Former smoker Tobacco Use: Non-smoker Assessment/Plan All Active Problems (Last Reviewed 06/11/18 @ 05:13 by Kerwin Brizuela MD) Flash pulmonary edema (Acute) Acute exacerbation of CHF (congestive heart failure) (Acute) COPD exacerbation (Acute) 1. Acute hypoxic respiratory insufficiency secondary to acute on chronic combined systolic/diastolic CHF-BNP greater than 1900. Chest x-ray on admission consistent with CHF. Echocardiogram showed an EF of 45%, mild to moderate segmental systolic dysfunction, stage III diastolic dysfunction, moderate mitral valve insufficiency, pulmonary artery systolic pressure 60 mmHg. Continue p.o. Lasix.. Strict I&O. Daily weight. Fluid restriction. D-dimer elevated, VQ scan negative. Repeat chest x-ray with improvement in CHF. Oxygen now stable on room air. Patient will need walking pulse ox prior to discharge. Cardiology following. Per outside records, patient underwent cardiac catheterization at [facility] May 18, 2018 which demonstrated severe triple-vessel disease and she underwent angioplasty at that time. She was to come back at a later date for further intervention. Patient underwent SARA to assess mitral valve. Plan for pharmacologic stress test , 07/05/2018. 2. Indeterminate troponin-suspected demand ischemia secondary to #1. Stress test planned for tomorrow as noted above. 3. CAD status post PCI-continue aspirin, Plavix, statin, carvedilol. 4. Chronic COPD-do not suspect acute exacerbation. Respiratory and influenza negative. Patient denies URI sx. IV steroids discontinued. 5. Hypertension-stable, continue carvedilol regimen. 6. Type 2 diabetes pymcpshv-[id number]-[id number] with sliding scale insulin. 7. Chronic kidney disease stage III-at baseline, trend BMP. 8. Hyperlipidemia-continue statin. 9. History of tobacco use-patient states she has been tobacco free for 2 months. Encouraged continued cessation. 10. Acute on chronic migraines-avoid narcotics. Improved status post IV Decadron x1. Started on Topamax for prophylaxis. DVT prophylaxis-Lovenox subcu This patient was seen by ORIN Hadley under the supervision of Dr. Neely. <Jose Neely - Last Filed: 07/04/18 14:52> Subjective: headache improved, but still ongoing. - Physical Exam General: Alert, Cooperative HEENT: Atraumatic, Normocephalic Lungs: Clear to auscultation, Diminished Cardiovascular: Regular rate, Regular Rhythm, Normal S1, Normal S2, No murmurs Abdomen: Bowel Sounds Present, Soft, Non Tender, Non-Distended, No Hepato-splenomegaly Extremities: No edema, No Calf Tenderness Skin: No rashes, No breakdown Psych/Mental Status: Normal Affect, Appropriate Vital Signs Temp Pulse Resp BP Pulse Ox 36.6 C 91 16 109/54 L 96 07/04/18 11:48 07/04/18 11:48 07/04/18 11:48 07/04/18 11:48 07/04/18 11:48 Oxygen Flow Rate (L/min) 2 Oxygen Delivery Method Room Air Weight: 63 kg Body Mass Index (BMI) 26.6 Intake and Output for Last 24 Hours 07/02/18 07/03/18 07/04/18 23:59 23:59 23:59 Intake Total 100 / 100 2510 / 2510 30 / 30 Output Total 200 / 200 800 / 800 300 / 300 Balance -100 / -100 1710 / 1710 -270 / -270 Microbiology Past 72 Hours 07/02/18 16:10 Respiratory Panel (PCR) - Final Mucosa - Nasopharyngeal 07/02/18 10:55 Influenza Types A,B Direct FA (DOROTEO) - Final Mucosa - Nose Laboratory Tests Past 24 Hrs 07/04/18 07/04/18 05:25 05:25 WBC 9.5 RBC 3.67 L Hgb 10.4 L Hct 32.8 L MCV 89.4 MCH 28.3 MCHC 31.7 L RDW 14.4 RDW Differential 46.0 H Plt Count 287 MPV 10.2 Sodium 135 L Potassium 4.0 Chloride 98 Carbon Dioxide 25.0 Anion Gap 12 BUN 47 H Creatinine 1.93 H Estim Creat Clear Calc 21.71 Est GFR (MDRD) Af Amer 34 L Est GFR (MDRD) Non-Af 28 L BUN/Creatinine Ratio 24.4 H Glucose 296 H Calcium 8.5 POC Glucose 07/04/18 07/04/18 07/03/18 11:45 07:08 21:00 POC Glucose 196 H 264 H 222 H 07/03/18 16:40 POC Glucose 244 H Assessment/Plan Patient seen and examined independently. Data reviewed. I agree with the above note by the nurse practitioner. 1. Acute hypoxic respiratory insufficiency Improved. Currently stable off oxygen Secondary to CHF 2. acute HFrEF Improved back on the oral Lasix. Appears compensated at this time. SARA and stress test pending. 3. Migraine Improved but still persistent Status post one-time dose of IV Decadron . Continue with Topamax for prophylaxis Follow-up with neurology as outpatient Code Visit Inpatient E&M: 96655 Subs Hosp L2
--- NOTE | 2018-07-04 12:21 | PN_ITS ---
Addendum entered and electronically signed by ORIN Hadley 07/04/18 12:26: Code Visit Patient noted to have acute kidney injury on chronic kidney disease stage III- suspect secondary to diuretic regimen. Transition to oral Lasix yesterday. Trend BMP. Original Note: <Indu Royal - Last Filed: 07/04/18 12:25> Patient Problems: Active and Suspected Problems (Last Reviewed 06/11/18 @ 05:13 by Kerwin Brizuela MD) COPD exacerbation (Acute) Subjective: Patient seen and examined. Shortness of breath improved. Underwent SARA this morning. Denies current complaints. - Physical Exam General: Alert, Oriented x3, Cooperative HEENT: Atraumatic, PERRLA, EOMI, Normocephalic Neck: Supple, No JVD, Negative Carotid Bruits Lungs: Clear to auscultation, Diminished Cardiovascular: Regular rate, Regular Rhythm, Normal S1, Normal S2, No murmurs Abdomen: Bowel Sounds Present, Soft, Non Tender, Non-Distended Extremities: No clubbing, No cyanosis, No edema, Capillary Refill Less than 3 Seconds Skin: No rashes, No breakdown Musculoskeletal: No Tenderness to Palpation of Joints or Extremities Neurological: Cranial nerves II-XII grossly intact, Neuro grossly intact Psych/Mental Status: Normal Affect, Appropriate Vital Signs Temp Pulse Resp BP Pulse Ox 98 F 91 16 109/54 L 96 07/04/18 11:48 07/04/18 11:48 07/04/18 11:48 07/04/18 11:48 07/04/18 11:48 Oxygen Flow Rate (L/min) 2 Oxygen Delivery Method Room Air Weight: 138 lb 14.259 oz Body Mass Index (BMI) 26.6 Intake and Output for Last 24 Hours 07/02/18 07/03/18 07/04/18 23:59 23:59 23:59 Intake Total 100 / 100 2510 / 2510 30 / 30 Output Total 200 / 200 800 / 800 300 / 300 Balance -100 / -100 1710 / 1710 -270 / -270 Microbiology Past 72 Hours 07/02/18 16:10 Respiratory Panel (PCR) - Final Mucosa - Nasopharyngeal 07/02/18 10:55 Influenza Types A,B Direct FA (DOROTEO) - Final Mucosa - Nose Laboratory Tests Past 24 Hrs 07/04/18 07/04/18 05:25 05:25 WBC 9.5 RBC 3.67 L Hgb 10.4 L Hct 32.8 L MCV 89.4 MCH 28.3 MCHC 31.7 L RDW 14.4 RDW Differential 46.0 H Plt Count 287 MPV 10.2 Sodium 135 L Potassium 4.0 Chloride 98 Carbon Dioxide 25.0 Anion Gap 12 BUN 47 H Creatinine 1.93 H Estim Creat Clear Calc 21.71 Est GFR (MDRD) Af Amer 34 L Est GFR (MDRD) Non-Af 28 L BUN/Creatinine Ratio 24.4 H Glucose 296 H Calcium 8.5 POC Glucose 07/04/18 07/03/18 07/03/18 07:08 21:00 16:40 POC Glucose 264 H 222 H 244 H 07/03/18 13:53 POC Glucose 352 H Medical Necessity - Tobacco Use Smoking Status: Former smoker Tobacco Use: Non-smoker Assessment/Plan All Active Problems (Last Reviewed 06/11/18 @ 05:13 by Kerwin Brizuela MD) Flash pulmonary edema (Acute) Acute exacerbation of CHF (congestive heart failure) (Acute) COPD exacerbation (Acute) 1. Acute hypoxic respiratory insufficiency secondary to acute on chronic combined systolic/diastolic CHF-BNP greater than 1900. Chest x-ray on admission consistent with CHF. Echocardiogram showed an EF of 45%, mild to moderate segmental systolic dysfunction, stage III diastolic dysfunction, moderate mitral valve insufficiency, pulmonary artery systolic pressure 60 mmHg. Continue p.o. Lasix.. Strict I&O. Daily weight. Fluid restriction. D-dimer elevated, VQ scan negative. Repeat chest x-ray with improvement in CHF. Oxygen now stable on room air. Patient will need walking pulse ox prior to discharge. Cardiology following. Per outside records, patient underwent cardiac catheterization at [facility] 18, 2018 which demonstrated severe triple-vessel disease and she underwent angioplasty at that time. She was to come back at a later date for further intervention. Patient underwent SARA to assess mitral valve. Plan for pharmacologic stress test , 07/05/2018. 2. Indeterminate troponin-suspected demand ischemia secondary to #1. Stress test planned for tomorrow as noted above. 3. CAD status post PCI-continue aspirin, Plavix, statin, carvedilol. 4. Chronic COPD-do not suspect acute exacerbation. Respiratory and influenza negative. Patient denies URI sx. IV steroids discontinued. 5. Hypertension-stable, continue carvedilol regimen. 6. Type 2 diabetes [id number] with sliding scale insulin. 7. Chronic kidney disease stage III-at baseline, trend BMP. 8. Hyperlipidemia-continue statin. 9. History of tobacco use-patient states she has been tobacco free for 2 months. Encouraged continued cessation. 10. Acute on chronic migraines-avoid narcotics. Improved status post IV Decadron x1. Started on Topamax for prophylaxis. DVT prophylaxis-Lovenox subcu This patient was seen by ORIN Hadley under the supervision of Dr. Neely. <Jose Neely - Last Filed: 07/04/18 14:52> Subjective: headache improved, but still ongoing. - Physical Exam General: Alert, Cooperative HEENT: Atraumatic, Normocephalic Lungs: Clear to auscultation, Diminished Cardiovascular: Regular rate, Regular Rhythm, Normal S1, Normal S2, No murmurs Abdomen: Bowel Sounds Present, Soft, Non Tender, Non-Distended, No Hepato- splenomegaly Extremities: No edema, No Calf Tenderness Skin: No rashes, No breakdown Psych/Mental Status: Normal Affect, Appropriate Vital Signs Temp Pulse Resp BP Pulse Ox 36.6 C 91 16 109/54 L 96 07/04/18 11:48 07/04/18 11:48 07/04/18 11:48 07/04/18 11:48 07/04/18 11:48 Oxygen Flow Rate (L/min) 2 Oxygen Delivery Method Room Air Weight: 63 kg Body Mass Index (BMI) 26.6 Intake and Output for Last 24 Hours 07/02/18 07/03/18 07/04/18 23:59 23:59 23:59 Intake Total 100 / 100 2510 / 2510 30 / 30 Output Total 200 / 200 800 / 800 300 / 300 Balance -100 / -100 1710 / 1710 -270 / -270 Microbiology Past 72 Hours 07/02/18 16:10 Respiratory Panel (PCR) - Final Mucosa - Nasopharyngeal 07/02/18 10:55 Influenza Types A,B Direct FA (DOROTEO) - Final Mucosa - Nose Laboratory Tests Past 24 Hrs 07/04/18 07/04/18 05:25 05:25 WBC 9.5 RBC 3.67 L Hgb 10.4 L Hct 32.8 L MCV 89.4 MCH 28.3 MCHC 31.7 L RDW 14.4 RDW Differential 46.0 H Plt Count 287 MPV 10.2 Sodium 135 L Potassium 4.0 Chloride 98 Carbon Dioxide 25.0 Anion Gap 12 BUN 47 H Creatinine 1.93 H Estim Creat Clear Calc 21.71 Est GFR (MDRD) Af Amer 34 L Est GFR (MDRD) Non-Af 28 L BUN/Creatinine Ratio 24.4 H Glucose 296 H Calcium 8.5 POC Glucose 07/04/18 07/04/18 07/03/18 11:45 07:08 21:00 POC Glucose 196 H 264 H 222 H 07/03/18 16:40 POC Glucose 244 H Assessment/Plan Patient seen and examined independently. Data reviewed. I agree with the above note by the nurse practitioner. 1. Acute hypoxic respiratory insufficiency Improved. Currently stable off oxygen Secondary to CHF 2. acute HFrEF Improved back on the oral Lasix. Appears compensated at this time. SARA and stress test pending. 3. Migraine Improved but still persistent Status post one-time dose of IV Decadron . Continue with Topamax for prophylaxis Follow-up with neurology as outpatient Code Visit Inpatient E&M: 21585 Subs Hosp L2
[2018-07-04 12:27] LABS: Bedside Glucose 196 mg/dL (70-110)
[2018-07-04] MEDS: Loratadine 10 MG Tablet PO (14:05)
[2018-07-04] MEDS: Aspirin E.C. 81 MG Tablet PO (14:05)
[2018-07-04] MEDS: Carvedilol 3.125 MG TABLET PO ×2 (14:06→21:44)
[2018-07-04] MEDS: Senna/Docusate Sodium 1 Tablet 2 TABLET PO ×2 (14:07→21:45)
[2018-07-04] MEDS: Furosemide 40 MG Tablet PO (14:07)
[2018-07-04] MEDS: Clopidogrel Bisulfate 75 MG Tablet PO (14:07)
[2018-07-04] MEDS: Sertraline 50 MG Tablet PO (14:08)
[2018-07-04] MEDS: Topiramate 100 MG Tablet PO (14:08)
[2018-07-04] MEDS: Glucerna Shake 120 ML LIQUID PO (14:09)
--- NOTE | 2018-07-04 14:13 | CHAPLAIN ---
Type of Pastoral Visit _x__ Initial Visit ___ Follow-up Visit ___ On-call Visit ___ General Patient Visit ___ Spiritual Assessment ___ Family Conference ___ Bereavement ___ Rapid Response ___ Code Blue ___ Other (describe below) Pastoral Care Referral From _x__ Patient ___ Family ___ Nurse ___ Physician ___ Laborer Bituminous Paving ___ Casino Supervisor ___ Other (describe below) Sacrament/Intervention _x__ Active listening ___ Anointing ___ Hindu ___ Bereavement ___ Communion ___ Emily exploration ___ ___ Life review _x__ Prayer ___ Reconciliation ___ Sacrament of Sick _x__ Supportive presence ___ Wedding ___ Other (describe below) Pastoral Comments patient had requested visit from Spiritual Care yesterday but was not accomplished; pt has anxiety and asks for prayer; pt remembers this customer experience strategist from a previous admission
[2018-07-04 15:26] LABS: Bedside Glucose 206 mg/dL (70-110)
[2018-07-04] MEDS: Insulin Lispro 100 UNIT/ML INSULN.PEN SQ ×2 (15:39→21:44)
[2018-07-04] MEDS: Insulin Lispro 100 UNIT/ML INSULN.PEN SC (15:39)
[2018-07-04] MEDS: Atorvastatin Calcium 40 MG Tablet PO (21:45)
[2018-07-04] MEDS: Zolpidem Tartrate 5 MG Tablet PO (21:46)
[2018-07-04 23:37] LABS: Bedside Glucose 180 mg/dL (70-110)
[2018-07-04] MEDS: Ketorolac 15 MG/ML Vial IV (23:40)
[2018-07-04] MEDS: 0.9% NaCl Peripheral Flush Adult/Peds IV (23:41)
[2018-07-05] VITALS (10 sets, daily range): BP systolic 133–158; BP diastolic 68–94; PULSE 78–92; RESP 16–18; TEMP 36.8–37.2; O2SAT 95–99
[2018-07-05] MEDS: 0.9% NaCl Peripheral Flush Adult/Peds IV (05:00)
[2018-07-05 05:25] LABS: Hematocrit 32.6 % (37-47); Hemoglobin 10.1 g/dl (12.0-15.0); Mean Corpuscular Hgb 28.3 pg (27.0-32.0); Mean Corpuscular Volume 91.3 fL (81-99); Platelet Count 302 K/mm3 (150-450); RBC Distribution Width CV 14.5 % (11.6-14.6); Red Blood Count 3.57 M/mm3 (4.2-5.4); White Blood Count 8.9 K/mm3 (4.4-11.0)
[2018-07-05 05:27] LABS: Scan Indicated on CBC? Y/N NO
[2018-07-05 05:33] LABS: Anion Gap 11 (5-15); BUN 45 mg/dL (7-18); BUN/Creat Ratio 25.7 RATIO (10-20); Calcium,Total 8.3 mg/dL (8.5-10.1); Chloride 107 mmol/L (98-107); Creatinine, Serum 1.75 mg/dL (0.55-1.02); EST Glomerular Filtration Rate 31 mL/min (>60); Est Glom Filt Rate - Afr Amer 38 mL/min (>60); Estimated Creatinine Clearance 23.94 ml/min; Glucose 109 mg/dL (74-106); Potassium 3.4 mmol/L (3.5-5.1); Sodium Level 140 mmol/L (136-145)
[2018-07-05 05:34] LABS: International Normalized Ratio 1.1; Prothrombin Time (Protime)PT. 13.7 SECONDS (11.7-14.9)
[2018-07-05 05:35] LABS: Partial Thromboplast Time 23.1 Seconds (24.1-36.2)
--- NOTE | 2018-07-05 05:55 | EKG12_ITS ---
Test Reason : AM EKG Blood Pressure : / mmHG Vent. Rate : 078 BPM Atrial Rate : 078 BPM P-R Int : 138 ms QRS Dur : 088 ms QT Int : 424 ms P-R-T Axes : 068 070 088 degrees QTc Int : 483 ms Normal sinus rhythm Possible Left atrial enlargement Septal infarct (cited on or before 08-MAY-2018) Abnormal ECG Confirmed by GENA GARCIA, JAMIE ([id number]), features editor RAYMUNDO PATEL ([id number]) on 07/12/2018 11:52:45 AM Referred By: SHERRIE Confirmed By:JAMIE AVERY MD
[2018-07-05] MEDS: busPIRone 5 MG Tablet 10 MG PO ×2 (06:04→13:22)
[2018-07-05] MEDS: Aspirin E.C. 81 MG Tablet PO (06:04)
[2018-07-05] MEDS: Clopidogrel Bisulfate 75 MG Tablet PO (06:04)
--- NOTE | 2018-07-05 06:51 | PCM.PN.CARD ---
Subjectve: Patient seen and evaluated. Appears to be stable this morning. Objective: Vital Signs Temp Pulse Resp BP Pulse Ox 98.6 F 78 17 143/71 H 97 07/05/18 05:59 07/05/18 05:59 07/05/18 05:59 07/05/18 05:59 07/05/18 05:59 Oxygen Flow Rate (L/min) 2 Oxygen Delivery Method Room Air Weight: 136 lb 10.986 oz Body Mass Index (BMI) 26.6 Intake and Output for Last 24 Hours 07/03/18 07/04/18 07/05/18 23:59 23:59 23:59 Intake Total 2510 / 2510 850 / 850 Output Total 800 / 800 300 / 300 Balance 1710 / 1710 550 / 550 General: Awake, Alert, Oriented x 3 HEENT: PERRL, EOMI, Sclera Non Icteric Neck: Supple, Good ROM, No Lymph Node Enlargement Lungs: Clear to auscultation Cardiovascular: Regular Rhythm, Normal S1, Normal S2, No Rubs, No Gallops Murmur Murmur: Grade 2/6, Soft, Holosystolic, LLSB Vascular: No Carotid Bruits, Normal Femoral Pulses, Normal Radial Pulses, Normal Dorsalis Pedal Pulse, Normal Posterior Tibial Pulses Abdomen: Bowel Sounds Present, Soft, Non Tender, No HSM, No Organomegaly Extremities: No Cyanosis, No Clubbing, No edema Musculoskeletal: No Erythema Skin: No Rashes Lymphatic: No Lymph Node Enlargement Neurological: No Focal Motor or Sensory Deficit Psych/Mental Status: Appropriate 07/05/18 05:05: WBC 8.9, RBC 3.57 L, Hgb 10.1 L, Hct 32.6 L, MCV 91.3, MCH 28.3, MCHC 31.0 L, RDW 14.5, RDW Differential 47.0 H, Plt Count 302, MPV 10.0 07/05/18 05:05: Sodium 140, Potassium 3.4 L, Chloride 107, Carbon Dioxide 22.0, Anion Gap 11, BUN 45 H, Creatinine 1.75 H, Est GFR (MDRD) Af Amer 38 L, Est GFR (MDRD) Non-Af 31 L, BUN/Creatinine Ratio 25.7 H, Glucose 109 H, Calcium 8.3 L 07/05/18 05:05: PT 13.7, INR 1.1, APTT 23.1 L Rhythm: EKG: ECHO: Stress Test: Cardiac Cath: PCI: CT Surgery: Holter monitor: EPS: PPM: CXR: Chest CT Scan: Medical Necessity - Tobacco Use Smoking Status: Former smoker Tobacco Use: Non-smoker Assessment/Plan 1. Shortness of breath The etiology of the above is most likely secondary to the mitral regurgitation. She did have a history of reduced left ventricular systolic function with moderate severe mitral regurgitation by transesophageal echocardiogram which was performed yesterday. 2. Multivessel coronary artery disease Patient has known multivessel coronary artery disease status post revascularization at the [facility] Her data has been reviewed and she may need a reevaluation with a cardiac catheterization next week as an outpatient to determine whether she can have her mitral valve intervened on without further coronary revascularization In the meantime she would undergo pharmacologic myocardial perfusion scan to see whether there is any viability of her inferior wall. 3. History of congestive heart failure Patient has known history of congestive heart failure on diuretics and beta blockers as well as ALEJANDRA inhibitors as appropriate. The above will be adjusted and optimized. 4. Valve disease She appears to have moderately severe mitral valve disease. If she is well revascularized then she may be considered a candidate for mitral valve clip rather than open heart surgery. Will make this decision as an outpatient. Thank you for allowing me to participate in the care of your patient. Please don't hesitate to call if any issues arise
--- NOTE | 2018-07-05 06:54 | PN.CARD_ITS ---
Subjectve: Patient seen and evaluated. Appears to be stable this morning. Objective: Vital Signs Temp Pulse Resp BP Pulse Ox 98.6 F 78 17 143/71 H 97 07/05/18 05:59 07/05/18 05:59 07/05/18 05:59 07/05/18 05:59 07/05/18 05:59 Oxygen Flow Rate (L/min) 2 Oxygen Delivery Method Room Air Weight: 136 lb 10.986 oz Body Mass Index (BMI) 26.6 Intake and Output for Last 24 Hours 07/03/18 07/04/18 07/05/18 23:59 23:59 23:59 Intake Total 2510 / 2510 850 / 850 Output Total 800 / 800 300 / 300 Balance 1710 / 1710 550 / 550 General: Awake, Alert, Oriented x 3 HEENT: PERRL, EOMI, Sclera Non Icteric Neck: Supple, Good ROM, No Lymph Node Enlargement Lungs: Clear to auscultation Cardiovascular: Regular Rhythm, Normal S1, Normal S2, No Rubs, No Gallops Murmur Murmur: Grade 2/6, Soft, Holosystolic, LLSB Vascular: No Carotid Bruits, Normal Femoral Pulses, Normal Radial Pulses, Normal Dorsalis Pedal Pulse, Normal Posterior Tibial Pulses Abdomen: Bowel Sounds Present, Soft, Non Tender, No HSM, No Organomegaly Extremities: No Cyanosis, No Clubbing, No edema Musculoskeletal: No Erythema Skin: No Rashes Lymphatic: No Lymph Node Enlargement Neurological: No Focal Motor or Sensory Deficit Psych/Mental Status: Appropriate 07/05/18 05:05: WBC 8.9, RBC 3.57 L, Hgb 10.1 L, Hct 32.6 L, MCV 91.3, MCH 28.3, MCHC 31.0 L, RDW 14.5, RDW Differential 47.0 H, Plt Count 302, MPV 10.0 07/05/18 05:05: Sodium 140, Potassium 3.4 L, Chloride 107, Carbon Dioxide 22.0, Anion Gap 11, BUN 45 H, Creatinine 1.75 H, Est GFR (MDRD) Af Amer 38 L, Est GFR (MDRD) Non-Af 31 L, BUN/Creatinine Ratio 25.7 H, Glucose 109 H, Calcium 8.3 L 07/05/18 05:05: PT 13.7, INR 1.1, APTT 23.1 L Rhythm: EKG: ECHO: Stress Test: Cardiac Cath: PCI: CT Surgery: Holter monitor: EPS: PPM: CXR: Chest CT Scan: Medical Necessity - Tobacco Use Smoking Status: Former smoker Tobacco Use: Non-smoker Assessment/Plan 1. Shortness of breath * The etiology of the above is most likely secondary to the mitral regurgitation. She did have a history of reduced left ventricular systolic function with moderate severe mitral regurgitation by transesophageal echocardiogram which was performed yesterday. * 2. Multivessel coronary artery disease * Patient has known multivessel coronary artery disease status post revascularization at the [facility] * Her data has been reviewed and she may need a reevaluation with a cardiac catheterization next week as an outpatient to determine whether she can have her mitral valve intervened on without further coronary revascularization * In the meantime she would undergo pharmacologic myocardial perfusion scan to see whether there is any viability of her inferior wall. 3. History of congestive heart failure * Patient has known history of congestive heart failure on diuretics and beta blockers as well as ALEJANDRA inhibitors as appropriate. * The above will be adjusted and optimized. * 4. Valve disease She appears to have moderately severe mitral valve disease. If she is well revascularized then she may be considered a candidate for mitral valve clip rather than open heart surgery. Will make this decision as an outpatient. * Thank you for allowing me to participate in the care of your patient. Please don't hesitate to call if any issues arise
[2018-07-05 08:12] LABS: Bedside Glucose 109 mg/dL (70-110)
--- NOTE | 2018-07-05 08:20 | PCA ---
pt off floor
--- NOTE | 2018-07-05 08:34 | STRESSREP ---
Stress Test Report Pharmacologic myocardial perfusion stress test. 62-year-old lady with a history of coronary artery disease. Stress protocol: Resting EKG demonstrates normal sinus rhythm with rate of 75 bpm poor R wave progression is noted. Resting blood pressure 148/84 mmHg. 0.4 mg of regadenoson was infused per usual protocol followed by rapid intravenous saline flush injection continuous EKG monitoring was performed. Patient maintained sinus rhythm throughout the recording. At rest there were nonspecific ST-T wave changes noted at peak infusion there is mildly downsloping ST depression noted in leads II, III and aVF with occasional PVCs. The above is suggestive but not diagnostic of ischemia. The resting blood pressure 148/84 with a peak blood pressure of the same. Myocardial perfusion protocol. 11.2 mCi of technetium 99m sestamibi was injected at rest. 0.4 mg of regadenoson was infused per usual protocol peak infusion 33.3 mCi of technetium 99m sestamibi was injected stress images were obtained stress and rest images were reconstructed and compared in the short axis vertical long horizontal long axis. Gated images were also obtained next Perfusion SPECT analysis. Review of the images demonstrate normal perfusion noted in the mid septum anterior wall and lateral wall. There is a defect of medium size noted in the basal inferior septal wall, the basal inferior wall and mid inferior wall. The inferior apical wall also has moderately reduced perfusion. The resting images demonstrate improvement in these areas except for the basal inferior wall suggesting ischemia noted in the mid inferior and apical inferior wall with a fixed defect suggestive of an infarct in the basal inferior wall. Next Gated SPECT analysis: The gated ejection fraction is noted to be 50% with basal inferior hypokinesis. Conclusion: Pharmacologic myocardial perfusion stress test with evidence of mid inferior and apical inferior ischemia. Previous basal inferior infarct. Mild cardiomyopathy present.
[2018-07-05] MEDS: Ketorolac 15 MG/ML Vial IV ×2 (08:40→14:52)
[2018-07-05] MEDS: Glucerna Shake 120 ML LIQUID PO ×2 (08:42→12:08)
[2018-07-05] MEDS: Carvedilol 3.125 MG TABLET PO (10:35)
[2018-07-05] MEDS: Sertraline 50 MG Tablet PO (10:35)
[2018-07-05] MEDS: Furosemide 40 MG Tablet PO (10:35)
[2018-07-05] MEDS: Topiramate 100 MG Tablet PO (10:35)
[2018-07-05] MEDS: Loratadine 10 MG Tablet PO (10:39)
[2018-07-05] MEDS: Ipratropium/Albuterol Sulfate 3 ML AMPUL.NEB INHALATION (10:54)
--- NOTE | 2018-07-05 12:03 | DCINST_ITS ---
- Discharge Diagnoses Current Active Problems: Current Active and Chronic Problems (Last Reviewed 06/11/18 @ 05:13 by Kerwin Brizuela MD) COPD exacerbation (Acute) You will use the following diet at home:: Calorie/Carbohydrate Controlled (specify 1200, 1400, etc) - 1800 calories/day, Cardiac, Fluid restricted (specif y 2000 mls, 1500 mls) - 1500 cc/day Your food should be the consistency of: Regular Your liquids should be the consistency of: Regular/Thin Discharge Activity: Return to Normal Activity Call your doctor if you observe: Fever of 101 or Higher, Shortness of breath, Swelling in the ankles, Chest pain Instructions: Taking Medication to Control Heart Failure, What Is Heart Failure?, Heart Failure: Tracking Your Weight, Heart Failure: Procedures That May Help, Heart Failure: Making Changes to Your Diet, Heart Failure: Evaluating Your Heart, Heart Failure: Medications to Help Your Heart, Discharge Instructions for Heart Failure Allergies/Adverse Reactions: Allergies Penicillins Allergy (Severe, Verified 05/24/18 06:43) Swelling tolerated keflex in past with no issue Medications to take at Discharge Mometasone Furoate [Elocon] 50 gm TP DAILY PRN 12/10/17 Insulin Lispro [Humalog KwikPen] 3 unit SQ TIDCM 12/20/17 Atorvastatin Calcium [Lipitor] 40 mg PO QHS 05/08/18 Aspirin [Aspirin EC] 81 mg PO DAILY 05/24/18 Carvedilol 3.125 mg PO BID 05/24/18 Clopidogrel Bisulfate [Clopidogrel] 75 mg PO DAILY 05/24/18 [place]-3 Fatty Acids [[place]-3] 2,000 mg PO BID 05/24/18 Ergocalciferol (Vitamin D2) [Vitamin D2] 50,000 unit PO WE 06/11/18 Furosemide 40 mg PO DAILY 06/11/18 Sodium Chloride 0.65% [[place] Nasal [place]] 1 spray NASAL PRN PRN 06/11/18 Insulin Glargine,Hum.rec.anlog [Lantus] 10 unit SQ QHS #0 06/13/18 Buspirone HCl 10 mg PO TID 07/02/18 Ipratropium/Albuterol Sulfate [Duoneb] 3 ml INHALATION Q6H PRN PRN 07/02/18 Loratadine 10 mg PO DAILY 07/02/18 Sennosides/Docusate Sodium [Senna-Docusate Sodium Tablet] 2 tab PO BID 07/02/18 Sertraline HCl 50 mg PO DAILY 07/02/18 Acetaminophen [Tylenol Tablet] 1,000 mg PO TID PRN tablet 07/05/18 Topiramate [Topamax] 100 mg PO DAILY #30 tablet 07/05/18 The following prescriptions were given: Topiramate [Topamax] 100 mg PO DAILY #30 tablet Primary Care Physician: Evens Jimenez III, MD [Primary Care Provider] - Within 2 Weeks Test Results: Test results from this visit will be discussed in further detail at your follow- up appointment, if applicable. Please Follow Up With: Charles Good MD When: next week Please Follow Up With: Joel Matos MD - neurology for migraine evaluation. When: 1-2 months Proposed Discharge Date: 07/05/18
--- NOTE | 2018-07-05 12:04 | PCM.DC.SUM ---
Discharge Date and Diagnosis - Problem List Patient Problems: Active and Suspected Problems (Last Reviewed 06/11/18 @ 05:13 by Kerwin Brizuela MD) Flash pulmonary edema (Acute) Acute exacerbation of CHF (congestive heart failure) (Acute) Date of Admission: 07/02/18 Date of Discharge: 07/05/18 - Secondary Discharge Diagnosis Chronic Problems (Last Reviewed 06/11/18 @ 05:13 by Kerwin Brizuela MD) Chronic ulcer of buttock (Chronic) Diabetes mellitus (Chronic) Hypertension (Chronic) History of CVA (cerebrovascular accident) (Chronic) Tobacco abuse (Chronic) PVD (peripheral vascular disease) (Chronic) Carotid arterial disease (Chronic) Hyperlipidemia (Chronic) Hospital Course and Treatment Imaging Results: 07/05/18 05:45 Nuclear Stress Test - Chemical [NM] Routine Clinical Impression(s) from Imaging Studies Chest X-Ray 07/02/18 10:30 IMPRESSION: CHF. Electronically Signed: Veto Giordano MD at 11:09 EST , Service support , Lung Scan-VQ NM 07/02/18 17:00 IMPRESSION: Normal 99m Tc MAA pulmonary perfusion Tc DTPA aerosol ventilation imaging survey, according to revised PIOPED interpretive criteria. Electronically Signed: Veto Giordano MD at 12:41 EST , Service support , Chest X-Ray 07/03/18 08:58 IMPRESSION: Improvement in the CHF with residual blunting of the right costophrenic angle and mild increased markings at the right lung base. Electronically Signed: Veto Giordano MD at 15:20 EST , Service support , Charles Good MD: cardiology. Operations: None Procedures: 2-D Echocardiogram, Stress test Summary of Care Provided: The patient is a 62 year old F presents with shortness of breath that been going on for a week. Chest x-ray was consistent with CHF, BNP was elevated at 1902.6. Patient was started on IV Lasix and steadily improved. Patient is currently on room air and has been transitioned back to her normal Lasix dosing of 40 mg/day. Echocardiogram showed on EF of 45% with moderate pulmoary HTN with RVSP of 60mmHg. SARA showed moderately severe MVI and Moderate TVI. Stress test was positive with evidence of mid inferior and apical inferior ischemia. Patient was seen by cardiology with Dr. Good, who has advised discharge with an outpt [facility] and will evaluate for MVR. Complicating her care was a migraine. Patient had had migraines daily for months. She received a 1 time dose of decadron, which alleviated her headache. Given the chronicity, she was started on Topamax for migraine prophylaxis. She is instructed to follow up with neurology as outpt for evaluation.[] Patient Problems: Active and Suspected Problems (Last Reviewed 06/11/18 @ 05:13 by Kerwin Brizuela MD) Flash pulmonary edema (Acute) Acute exacerbation of CHF (congestive heart failure) (Acute) - Physical Exam General: Alert, No apparent distress HEENT: Atraumatic, Normocephalic Oral: Moist Mucosa, No Gingival or Mucosal Lesions/ Ulcerations Neck: No Nodes, Thyroid Normal Size and Texture Lungs: Clear to auscultation, Normal air movement, No rhonchi, No wheeze Cardiovascular: Regular rate, Regular Rhythm, Normal S1, Normal S2, No murmurs Abdomen: Bowel Sounds Present, Soft, Non Tender, Non-Distended, No Hepato-splenomegaly Extremities: No edema, No Calf Tenderness Vital Signs Temp Pulse Resp BP Pulse Ox 36.8 C 87 16 158/94 H 99 07/05/18 08:32 07/05/18 10:59 07/05/18 08:32 07/05/18 08:32 07/05/18 09:51 Oxygen Flow Rate (L/min) 2 Oxygen Delivery Method Room Air Weight: 62 kg Body Mass Index (BMI) 26.6 Intake and Output for Last 24 Hours 07/03/18 07/04/18 07/05/18 23:59 23:59 23:59 Intake Total 2510 / 2510 850 / 850 250 / 250 Output Total 800 / 800 300 / 300 Balance 1710 / 1710 550 / 550 250 / 250 Microbiology Past 72 Hours 07/02/18 16:10 Respiratory Panel (PCR) - Final Mucosa - Nasopharyngeal 07/02/18 10:55 Influenza Types A,B Direct FA (DOROTEO) - Final Mucosa - Nose Laboratory Tests Past 24 Hrs 07/05/18 07/05/18 07/05/18 05:05 05:05 05:05 WBC 8.9 RBC 3.57 L Hgb 10.1 L Hct 32.6 L MCV 91.3 MCH 28.3 MCHC 31.0 L RDW 14.5 RDW Differential 47.0 H Plt Count 302 MPV 10.0 PT 13.7 INR 1.1 APTT 23.1 L Sodium 140 Potassium 3.4 L Chloride 107 Carbon Dioxide 22.0 Anion Gap 11 BUN 45 H Creatinine 1.75 H Estim Creat Clear Calc 23.94 Est GFR (MDRD) Af Amer 38 L Est GFR (MDRD) Non-Af 31 L BUN/Creatinine Ratio 25.7 H Glucose 109 H Calcium 8.3 L POC Glucose 07/05/18 07/04/18 07/04/18 06:06 21:41 15:23 POC Glucose 109 180 H 206 H 07/04/18 11:45 POC Glucose 196 H Discharge Diet: Low fat/ Low Cholesterol, 1800 Calorie Control Diet, 6 Cup Fluid Restriction, 2000 mg Sodium Diet Discharge Activity: Return to Normal Activity Call your doctor if you observe: Fever of 101 or Higher, Shortness of breath, Swelling in the ankles, Chest pain Home Medications: Medications to take at Discharge Mometasone Furoate [Elocon] 50 gm TP DAILY PRN 12/10/17 Insulin Lispro [Humalog KwikPen] 3 unit SQ TIDCM 12/20/17 Atorvastatin Calcium [Lipitor] 40 mg PO QHS 05/08/18 Aspirin [Aspirin EC] 81 mg PO DAILY 05/24/18 Carvedilol 3.125 mg PO BID 05/24/18 Clopidogrel Bisulfate [Clopidogrel] 75 mg PO DAILY 05/24/18 [place]-3 Fatty Acids [[place]-3] 2,000 mg PO BID 05/24/18 Ergocalciferol (Vitamin D2) [Vitamin D2] 50,000 unit PO WE 06/11/18 Furosemide 40 mg PO DAILY 06/11/18 Sodium Chloride 0.65% [[place] Nasal [place]] 1 spray NASAL PRN PRN 06/11/18 Insulin Glargine,Hum.rec.anlog [Lantus] 10 unit SQ QHS #0 06/13/18 Buspirone HCl 10 mg PO TID 07/02/18 Ipratropium/Albuterol Sulfate [Duoneb] 3 ml INHALATION Q6H PRN PRN 07/02/18 Loratadine 10 mg PO DAILY 07/02/18 Sennosides/Docusate Sodium [Senna-Docusate Sodium Tablet] 2 tab PO BID 07/02/18 Sertraline HCl 50 mg PO DAILY 07/02/18 Acetaminophen [Tylenol Tablet] 1,000 mg PO TID PRN tablet 07/05/18 Topiramate [Topamax] 100 mg PO DAILY #30 tablet 07/05/18 Following Prescrptions Were Given to Patient: Topiramate [Topamax] 100 mg PO DAILY #30 tablet Primary Care Physician: Evens Jimenez III, MD [Primary Care Provider] - Within 2 Weeks Please Follow Up With: Charles Good MD When: next week Please Follow Up With: Joel Matos MD - neurology for migraine evaluation. When: 1-2 months Patient Instructions: Taking Medication to Control Heart Failure, What Is Heart Failure?, Heart Failure: Tracking Your Weight, Heart Failure: Procedures That May Help, Heart Failure: Making Changes to Your Diet, Heart Failure: Evaluating Your Heart, Heart Failure: Medications to Help Your Heart, Discharge Instructions for Heart Failure Disposition: Home Minutes spent on discharge:: 35 Patient Condition:: Fair Medical Necessity - Tobacco Use Smoking Status: Former smoker Tobacco Use: Non-smoker Meaningful Use Info Meaningful Use Diagnoses (Choose all that apply): None applicable Code Visit Inpatient E&M: 74038 Disch Hosp
[2018-07-05 12:07] LABS: Bedside Glucose 158 mg/dL (70-110)
[2018-07-05] MEDS: Insulin Lispro 100 UNIT/ML INSULN.PEN SQ (12:09)
[2018-07-05] MEDS: Insulin Lispro 100 UNIT/ML INSULN.PEN SC (12:10)
--- NOTE | 2018-07-05 12:18 | DS.PCM_ITS ---
Discharge Date and Diagnosis - Problem List Patient Problems: Active and Suspected Problems (Last Reviewed 06/11/18 @ 05:13 by Kerwin Brizuela MD) Flash pulmonary edema (Acute) Acute exacerbation of CHF (congestive heart failure) (Acute) Date of Admission: 07/02/18 Date of Discharge: 07/05/18 - Secondary Discharge Diagnosis Chronic Problems (Last Reviewed 06/11/18 @ 05:13 by Krewin Brizuela MD) Chronic ulcer of buttock (Chronic) Diabetes mellitus (Chronic) Hypertension (Chronic) History of CVA (cerebrovascular accident) (Chronic) Tobacco abuse (Chronic) PVD (peripheral vascular disease) (Chronic) Carotid arterial disease (Chronic) Hyperlipidemia (Chronic) Hospital Course and Treatment Imaging Results: 07/05/18 05:45 Nuclear Stress Test - Chemical [NM] Routine Clinical Impression(s) from Imaging Studies Chest X-Ray 07/02/18 10:30 IMPRESSION: CHF. Electronically Signed: Veto Giordano MD at 11:09 EST , Service support , Lung Scan-VQ NM 07/02/18 17:00 IMPRESSION: Normal 99m Tc MAA pulmonary perfusion Tc DTPA aerosol ventilation imaging survey, according to revised PIOPED interpretive criteria. Electronically Signed: Veto Giordano MD at 12:41 EST , Service support , Chest X-Ray 07/03/18 08:58 IMPRESSION: Improvement in the CHF with residual blunting of the right costophrenic angle and mild increased markings at the right lung base. Electronically Signed: Veto Giordano MD at 15:20 EST , Service support , Charles Good MD: cardiology. Operations: None Procedures: 2-D Echocardiogram, Stress test Summary of Care Provided: The patient is a 62 year old F presents with shortness of breath that been going on for a week. Chest x-ray was consistent with CHF, BNP was elevated at 1902.6. Patient was started on IV Lasix and steadily improved. Patient is currently on room air and has been transitioned back to her normal Lasix dosing of 40 mg/day. Echocardiogram showed on EF of 45% with moderate pulmoary HTN with RVSP of 60mmHg. SARA showed moderately severe MVI and Moderate TVI. Stress test was positive with evidence of mid inferior and apical inferior ischemia. Patient was seen by cardiology with Dr. Good, who has advised discharge with an outpt [facility] and will evaluate for MVR. Complicating her care was a migraine. Patient had had migraines daily for months. She received a 1 time dose of decadron, which alleviated her headache. Given the chronicity, she was started on Topamax for migraine prophylaxis. She is instructed to follow up with neurology as outpt for evaluation.[] Patient Problems: Active and Suspected Problems (Last Reviewed 06/11/18 @ 05:13 by Kerwin Brizuela MD) Flash pulmonary edema (Acute) Acute exacerbation of CHF (congestive heart failure) (Acute) - Physical Exam General: Alert, No apparent distress HEENT: Atraumatic, Normocephalic Oral: Moist Mucosa, No Gingival or Mucosal Lesions/ Ulcerations Neck: No Nodes, Thyroid Normal Size and Texture Lungs: Clear to auscultation, Normal air movement, No rhonchi, No wheeze Cardiovascular: Regular rate, Regular Rhythm, Normal S1, Normal S2, No murmurs Abdomen: Bowel Sounds Present, Soft, Non Tender, Non-Distended, No Hepato- splenomegaly Extremities: No edema, No Calf Tenderness Vital Signs Temp Pulse Resp BP Pulse Ox 36.8 C 87 16 158/94 H 99 07/05/18 08:32 07/05/18 10:59 07/05/18 08:32 07/05/18 08:32 07/05/18 09:51 Oxygen Flow Rate (L/min) 2 Oxygen Delivery Method Room Air Weight: 62 kg Body Mass Index (BMI) 26.6 Intake and Output for Last 24 Hours 07/03/18 07/04/18 07/05/18 23:59 23:59 23:59 Intake Total 2510 / 2510 850 / 850 250 / 250 Output Total 800 / 800 300 / 300 Balance 1710 / 1710 550 / 550 250 / 250 Microbiology Past 72 Hours 07/02/18 16:10 Respiratory Panel (PCR) - Final Mucosa - Nasopharyngeal 07/02/18 10:55 Influenza Types A,B Direct FA (DOROTEO) - Final Mucosa - Nose Laboratory Tests Past 24 Hrs 07/05/18 07/05/18 07/05/18 05:05 05:05 05:05 WBC 8.9 RBC 3.57 L Hgb 10.1 L Hct 32.6 L MCV 91.3 MCH 28.3 MCHC 31.0 L RDW 14.5 RDW Differential 47.0 H Plt Count 302 MPV 10.0 PT 13.7 INR 1.1 APTT 23.1 L Sodium 140 Potassium 3.4 L Chloride 107 Carbon Dioxide 22.0 Anion Gap 11 BUN 45 H Creatinine 1.75 H Estim Creat Clear Calc 23.94 Est GFR (MDRD) Af Amer 38 L Est GFR (MDRD) Non-Af 31 L BUN/Creatinine Ratio 25.7 H Glucose 109 H Calcium 8.3 L POC Glucose 07/05/18 07/04/18 07/04/18 06:06 21:41 15:23 POC Glucose 109 180 H 206 H 07/04/18 11:45 POC Glucose 196 H Discharge Diet: Low fat/ Low Cholesterol, 1800 Calorie Control Diet, 6 Cup Fluid Restriction, 2000 mg Sodium Diet Discharge Activity: Return to Normal Activity Call your doctor if you observe: Fever of 101 or Higher, Shortness of breath, Swelling in the ankles, Chest pain Home Medications: Medications to take at Discharge Mometasone Furoate [Elocon] 50 gm TP DAILY PRN 12/10/17 Insulin Lispro [Humalog KwikPen] 3 unit SQ TIDCM 12/20/17 Atorvastatin Calcium [Lipitor] 40 mg PO QHS 05/08/18 Aspirin [Aspirin EC] 81 mg PO DAILY 05/24/18 Carvedilol 3.125 mg PO BID 05/24/18 Clopidogrel Bisulfate [Clopidogrel] 75 mg PO DAILY 05/24/18 [place]-3 Fatty Acids [[place]-3] 2,000 mg PO BID 05/24/18 Ergocalciferol (Vitamin D2) [Vitamin D2] 50,000 unit PO WE 06/11/18 Furosemide 40 mg PO DAILY 06/11/18 Sodium Chloride 0.65% [[place] Nasal [place]] 1 spray NASAL PRN PRN 06/11/18 Insulin Glargine,Hum.rec.anlog [Lantus] 10 unit SQ QHS #0 06/13/18 Buspirone HCl 10 mg PO TID 07/02/18 Ipratropium/Albuterol Sulfate [Duoneb] 3 ml INHALATION Q6H PRN PRN 07/02/18 Loratadine 10 mg PO DAILY 07/02/18 Sennosides/Docusate Sodium [Senna-Docusate Sodium Tablet] 2 tab PO BID 07/02/18 Sertraline HCl 50 mg PO DAILY 07/02/18 Acetaminophen [Tylenol Tablet] 1,000 mg PO TID PRN tablet 07/05/18 Topiramate [Topamax] 100 mg PO DAILY #30 tablet 07/05/18 Following Prescrptions Were Given to Patient: Topiramate [Topamax] 100 mg PO DAILY #30 tablet Primary Care Physician: Evens Jimenez III, MD [Primary Care Provider] - Within 2 Weeks Please Follow Up With: Charles Good MD When: next week Please Follow Up With: Joel Matos MD - neurology for migraine evaluation. When: 1-2 months Patient Instructions: Taking Medication to Control Heart Failure, What Is Heart Failure?, Heart Failure: Tracking Your Weight, Heart Failure: Procedures That May Help, Heart Failure: Making Changes to Your Diet, Heart Failure: Evaluating Your Heart, Heart Failure: Medications to Help Your Heart, Discharge Instructions for Heart Failure Disposition: Home Minutes spent on discharge:: 35 Patient Condition:: Fair Medical Necessity - Tobacco Use Smoking Status: Former smoker Tobacco Use: Non-smoker Meaningful Use Info Meaningful Use Diagnoses (Choose all that apply): None applicable Code Visit Inpatient E&M: 03214 Disch Hosp
--- NOTE | 2018-07-05 14:13 | CASEMGMT ---
[facility] called [facility] and let them know about patient's discharge. [facility] also faxed over order to resume home health and d/c instructions. Shanique CONNOR MSW
[2018-07-05 16:21] LABS: Bedside Glucose 223 mg/dL (70-110)
--- NOTE | 2018-07-06 14:51 | CASEMGMT ---
SAM GUTHRIE DC PHONE CALL DC DATE: 07/05/18 DC DISPOSITION: Home with [facility]. 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 Pt has [facility] ordered to go to home. Shan NGUYEN [facility]
== END 2018-07-05 17:38 | disposition home or self-care (01) | DRG 194 ==
LOC: ED 11:02 → PCU 14:25
PROVIDERS: Internal Medicine Cardiovascular Disease; Nurse Practitioner Family; Admitting Provider Internal Medicine; Emergency Provider Emergency Medicine; Family Provider Family Medicine; PCP Family Medicine
DX: I13.0 Hypertensive heart and chronic kidney disease with heart failure and stage 1 through stage 4 chronic kidney disease, or unspecified chronic kidney disease (principal); E11.22 Type 2 diabetes mellitus with diabetic chronic kidney disease; N18.3 Chronic kidney disease, stage 3 (moderate); I50.21 Acute systolic (congestive) heart failure; J44.1 Chronic obstructive pulmonary disease with (acute) exacerbation; I25.10 Atherosclerotic heart disease of native coronary artery without angina pectoris; I34.0 Nonrheumatic mitral (valve) insufficiency; I73.9 Peripheral vascular disease, unspecified; I36.1 Nonrheumatic tricuspid (valve) insufficiency; I65.29 Occlusion and stenosis of unspecified carotid artery; E78.5 Hyperlipidemia, unspecified; G43.909 Migraine, unspecified, not intractable, without status migrainosus; Z95.5 Presence of coronary angioplasty implant and graft; Z86.73 Personal history of transient ischemic attack (TIA), and cerebral infarction without residual deficits; Z79.4 Long term (current) use of insulin; Z79.82 Long term (current) use of aspirin; Z79.899 Other long term (current) drug therapy; Z87.891 Personal history of nicotine dependence
CPT/HCPCS: 36415; 71045; 71046; 78452; 78582; 80048; 82962; 83880; 84484; 85025; 85027; 85379; 85610; 85730; 87633; 87804; 93005; 93017; 93306; 93312; 93320; 93325; 94640; 97802; 99285; 99406; A9500; A9540; A9567; J7040; A4216; J1940; J2310; J2785

== ENCOUNTER 2018-07-11 06:51 | Day surgery (SDC) | payer MEDICAID, SELFPAY ==
[2018-07-04 00:48] VITALS: BMI 26.6
[2018-07-10 07:13] VITALS: BMI 26.2
[2018-07-11 07:20] LABS: Anion Gap 11 (5-15); BUN 19 mg/dL (7-18); Calcium,Total 8.5 mg/dL (8.5-10.1); Chloride 112 mmol/L (98-107); Creatinine, Serum 1.46 mg/dL (0.55-1.02); EST Glomerular Filtration Rate 39 mL/min (>60); Est Glom Filt Rate - Afr Amer 47 mL/min (>60); Estimated Creatinine Clearance 30.15 ml/min; Glucose 145 mg/dL (74-106); Potassium 3.8 mmol/L (3.5-5.1); Sodium Level 145 mmol/L (136-145)
--- NOTE | 2018-07-11 08:52 | CL.D_ITS ---
Patient Name: DAVINA DAVIS Study Date: 07/11/2018 Performing: Charles Good MD Ht: 61.02 inches 155 cm : 1955 Wt: 138.89 lbs 63 kg Age: 62 Gender: female BSA: 1.62 PROCEDURE(S) PERFORMED [id number] CLINICAL PROFILE AND INDICATIONS Indications: Valvular Disease Heart Failure: NYHA Class: 2, Newly Diagnosed: Yes, Heart Failure Type: Systolic Stress/Imaging Stress Test w/SPECT MPI: Yes Result: Positive Intermediate RiskStress Test with SP ECT MPI: Positive Intermediate Risk CAD Presentations: Symptom unlikely to be ischemic. CONCLUSIONS Severe CAD with previously placed stents in the circumflex artery and LAD noted to be patent with tot ally occluded right coronary artery. Moderate to moderately severe pulmonary hypertension. Moderate ly severe mitral regurgitation. RECOMMENDATIONS Surgery consult for valvular disease. may also need interval PCI of LAD Will consider an evaluation for mitral valve clip. We will send the films to [facility] for an opinion and get back to patient. DESCRIPTION OF PROCEDURE The patient arrived to the procedure lab. The risks and benefits of the procedure as well as a full d escription of our services here and current unavailability of surgical backup were fully explained to the patient and/or their significant other prior to the catheterization. The Timeout was completed, verifying the correct patient and procedure. The patient's procedural site was prepped and draped in the usual fashion. Local anesthetic was given subcutaneously to right groin region with Lidocaine 2%. Using a modified Seldinger technique, arterial access was obtained via the right femoral artery, a 5 Fr sheath was inserted. Venous access was obtained via the right femoral vein, a 7Fr sheath was inser edda. A 7Fr thermal dilution catheter was inserted and right heart pressures were recorded, it was the n advanced to PA position for cardiac outputs. Thermal dilution cardiac outputs were then recorded. O 2 saturations were then obtained. The Thermal dilution catheter was then removed. Left Coronary Artery selective angiography was performed in multiple views using a 5 Fr. JL4 catheter. Rig ht Coronary Artery selective angiography was then performed in multiple views using a 5 Fr. 3DRC ([facility]) catheter.Contrast was injected through the sheath and the Right Iliac and Femoral artery were assessed for possible closure device.The arterial sheath was then pulled and manual compression appli ed until hemostasis achieved. The venous sheath was then pulled and manual compression applied until hemostasis achieved CORONARY ANGIOGRAPHY DOMINANCE: Right Dominant LEFT HEART ASSESSMENT Left Ventricular Ejection Fraction: by Echo 45 % RIGHT HEART ASSESSMENT Thermal CO: 3.66 Thermal CI: 2.26 Melany CO: 4.75 Melany CI: 2.93 PW: 33/ 31 PA: 60/29 44 RV: 64/13 15 RA: 15 PVR: 284 SVR: 2317 Pulmonary Hypertension Moderate Right Heart pressures - elevated LEFT MAIN: Angiographically normal LEFT ANTERIOR DECENDING ARTERY: MID LAD: Previously placed stent is patent: It traverses the proximal LAD to the diagonal vessel DISTAL LAD: 80 diffuse stenosis % Stenosis CIRCUMFLEX ARTERY: MID CIRC: Previously placed stent is patent DISTAL CIRC: 60 % Stenosis OM 1: Proximal - Mild luminal irregularities OM 2: Proximal - Mild luminal irregularities RIGHT CORONARY ARTERY: OSTIAL RCA: is occluded VALVE FINDINGS: Mitral Valve Insufficiency - Grade 3 COMPLICATIONS No Complications PROCEDURE MEDICATIONS Versed 1 mg IV Baby Aspirin (81mg) 1 Tabs PO @ 07/11/2018 08:09:43 Plavix 75 mg PO 07/11/2018 08:10:10 SUMMARY OF HEMODYNAMIC DATA Time AIR REST RA (15) SV 08:20:11 RV 64/13, 15 08:20:41 PW 33/29 (31) PV 08:21:39 PA 60/29 (44) PA 08:21:55 RV 67/6, 15 08:25:53 RA 16 (15) 08:26:00 AO 177/84 (121) SA 08:28:15 ECG 08:51:12 Type SV CO (l/m) CI (l/m/ HR Time AIR REST Thermal 39.40 3.66 2.26 93 07:35:45 Melany 51.10 4.75 2.93 93 07:35:45 Label % O2 Pres/Loc Time AIR REST AO 94 PV 08:33:09 PA 53 PA 08:33:14 RA 61 SV 08:33:27 Signed By Charles Good MD On 07/11/2018 9:00:52 AM Signed By Charles Good MD On 07/11/2018 08:50:59 Charles Good MD
[2018-07-11 08:56] LABS: Blood Gas Specimen Type VEN; VBG BASE EXCESS -9 mmol/L (-1.0-3.5); VBG Bicarbonate 17 mmol/L (22-26); VBG Oxygen Content 18 mmol/L (23-33); VBG PO2 31 mmHg (25-40); VBG SO2 53 % (50-70); VBG pCO2 34.6 mmHg (41-51); VBG pH 7.31 (7.32-7.42)
[2018-07-11 08:56] LABS: Blood Gas Specimen Type VEN; VBG BASE EXCESS -8 mmol/L (-1.0-3.5); VBG Bicarbonate 17 mmol/L (22-26); VBG Oxygen Content 18 mmol/L (23-33); VBG PO2 33 mmHg (25-40); VBG SO2 61 % (50-70); VBG pCO2 32.7 mmHg (41-51); VBG pH 7.33 (7.32-7.42)
[2018-07-11 08:56] LABS: Base Excess -9 mmol/L (-2 to +2); Bicarbonate 16.5 mmol/L (22-26); Blood Gas Specimen Type ART; PO2 71 mmHG (75-100); SO2 94 % (95-99); Total Carbon Dioxide 17 mmol/L; pCO2 27.8 mmHg (35-45); pH 7.38 (7.35-7.45)
== END 2018-07-11 14:24 | disposition home or self-care (01) ==
PROVIDERS: Family Provider Family Medicine; PCP Family Medicine; Referring Provider Internal Medicine Cardiovascular Disease; Visit Provider Internal Medicine Cardiovascular Disease
DX: I25.10 Atherosclerotic heart disease of native coronary artery without angina pectoris (principal); R06.02 Shortness of breath; I11.0 Hypertensive heart disease with heart failure; I50.20 Unspecified systolic (congestive) heart failure; I34.0 Nonrheumatic mitral (valve) insufficiency; I27.20 Pulmonary hypertension, unspecified; I73.9 Peripheral vascular disease, unspecified; E78.5 Hyperlipidemia, unspecified; E11.9 Type 2 diabetes mellitus without complications; Z95.5 Presence of coronary angioplasty implant and graft; Z79.4 Long term (current) use of insulin; Z79.82 Long term (current) use of aspirin; Z79.899 Other long term (current) drug therapy; Z87.891 Personal history of nicotine dependence; Z86.73 Personal history of transient ischemic attack (TIA), and cerebral infarction without residual deficits
CPT/HCPCS: 36415; 80048; 82803; 93456; 99152; 99153; C1751; C1769; C1894; Q9967

== ENCOUNTER 2018-07-24 09:01 | Inpatient (IN) | payer MEDICAID, SELFPAY ==
[2018-07-10 07:13] VITALS: BMI 26.2
[2018-07-24] VITALS (20 sets, daily range): BP systolic 120–171; BP diastolic 57–105; PULSE 11–112; RESP 12–40; TEMP 36.4–37.2; O2SAT 93–100; BMI 28.0; BMI 25.7
--- NOTE | 2018-07-24 09:12 | RAD_ITS ---
STUDY: X-RAY CHEST REASON FOR EXAM: Female, 62 years old. Shortness of breath/dyspnea. TECHNIQUE: Single AP portable view of the chest. COMPARISON: Comparison is made with prior study dated July 03, 2018. FINDINGS: EKG electrodes are seen. There is evidence of vascular congestion and mild degree of CHF. There is no demonstrated pleural abnormality. There is mild cardiac enlargement. Normal mediastinum and tom. Normal visualized pulmonary arteries. Normal visualized aortic arch and descending thoracic aorta. There are diffuse degenerative changes of the visualized thoracic spine. Normal visualized ribs, clavicles, and shoulders. There is no demonstrated abnormality of the visualized soft tissue structures of the upper abdomen. RAD/Chest 1 View (Portable) IMPRESSION: Findings in keeping with passive congestion and CHF. Electronically Signed: Veto Giordano, at 9:58 EST , Service support ,
--- NOTE | 2018-07-24 09:12 | EKG12_ITS ---
Test Reason : SOB Blood Pressure : / mmHG Vent. Rate : 100 BPM Atrial Rate : 100 BPM P-R Int : 114 ms QRS Dur : 096 ms QT Int : 374 ms P-R-T Axes : 051 064 044 degrees QTc Int : 482 ms Normal sinus rhythm Possible Left atrial enlargement Nonspecific ST abnormality Abnormal ECG Confirmed by GENA GARCIA, JAMIE ([id number]), general expeditor DEANGELO CORONEL ([id number] on 07/26/2018 3:46:01 PM Referred By: JOVITA Confirmed By:JAMIE AVERY MD
--- NOTE | 2018-07-24 09:16 | ED.DCSUM_ITS ---
- ER Visit Summary Date of Service: 07/24/18 Chief Complaint: Shortness of breath History of Present Illness: The patient is a 62 F presenting with shortness of breath. Patient awoke this morning very short of breath. She denies chest pain. She has had a nonproductive cough. She was recently in the hospital for similar complaints. She does not wear home O2. EMS was called. Her oxygen sat was in the 70s on their arrival. Physical Examination: Blood pressure 120/66, temperature 97.5, heart rate 104, respiratory rate 40. 93% on nonrebreather mask. Alert moderate distress. HEENT exam is unremarkable. Neck is supple. Lungs are wheezing bilaterally. Accessory muscle use Heart is regular rate and rhythm. Abdomen is soft nontender nondistended. Extremities are unremarkable. Skin is warm and dry. No focal neurologic deficit. Remainder of exam is unremarkable. Emergency Department Course and Treatment: Patient was placed on BiPAP on her arrival. Chest x-ray shows CHF. EKG is sinus rate of 100 with no acute ischemic changes. CBC, chemistries unremarkable other than hemoglobin 11.0, glucose 248, BUN 39, creatinine 1.55. Troponin 0.026. Patient was given Lasix IV. She is improved on BiPAP. Discussed with the hospitalist for admission. Disposition: Admission Impression: CHF exacerbation, hypoxia This note was generated with [employer] dictation software. It may contain incorrect words, spelling, and punctuation that were not noted in review of the chart prior to signing ED Disposition - Plan for ED Patient: Referrals: Evens Jimenez III, MD [Primary Care Provider] -
[2018-07-24] MEDS: Ipratropium/Albuterol Sulfate 3 ML AMPUL.NEB INHALATION ×3 (09:24→19:54)
[2018-07-24 09:27] LABS: Absolute Lymphocyte Count 1.25 X10^3/ul (0.83-4.51); Basophil# 0.06 X10^3/uL; Basophil% 0.7 % (0-1); Eosinophil# 0.63 X10^3/uL; Eosinophils% 7.6 % (0-5); Hematocrit 35.1 % (37-47); Lymphocyte # 1.25 X10^3/ul (4.0); Mean Corp Hgb Conc 31.3 g/gl (32-36); Mean Corpuscular Hgb 28.9 pg (27.0-32.0); Mean Corpuscular Volume 92.1 fL (81-99); Monocyte# 0.39 X10^3/uL; Monocyte% 4.7 % (0-10); Neutrophil # 5.98 X10^3/uL (2.7-7.7); Neutrophil % 71.8 % (47-70); Platelet Count 296 K/mm3 (150-450); RBC Distribution Width CV 14.8 % (11.6-14.6); RBC Distribution Width SD 48.3 fl (35.1-43.9); Red Blood Count 3.81 M/mm3 (4.2-5.4); White Blood Count 8.3 K/mm3 (4.4-11.0)
[2018-07-24 09:28] LABS: POSITIVE COUNT NO; POSITIVE DIFFERENTIAL NO; POSITIVE MORPHOLOGY NO
[2018-07-24] MEDS: Albuterol 2.5 MG/3 ML VIAL.NEB. INHALATION (09:29)
[2018-07-24 09:41] LABS: Anion Gap 12 (5-15); BUN 39 mg/dL (7-18); BUN/Creat Ratio 25.2 RATIO (10-20); Calcium,Total 8.7 mg/dL (8.5-10.1); Chloride 106 mmol/L (98-107); Creatinine, Serum 1.55 mg/dL (0.55-1.02); EST Glomerular Filtration Rate 36 mL/min (>60); Est Glom Filt Rate - Afr Amer 44 mL/min (>60); Estimated Creatinine Clearance 33.86 ml/min; Glucose 248 mg/dL (74-106); Potassium 4.7 mmol/L (3.5-5.1); Sodium Level 141 mmol/L (136-145)
--- NOTE | 2018-07-24 11:11 | NURSING ---
RICHELLE MERCADO CHF EXAC
[2018-07-24] MEDS: Furosemide 40 MG/4 ML Vial IV ×2 (11:29→17:40)
--- NOTE | 2018-07-24 11:42 | HP.PCM_ITS ---
Problem List (1) Secondary pulmonary arterial hypertension Status: Chronic (2) History of coronary artery stent placement Status: Resolved (3) Atherosclerosis of coronary artery of nome heart without angina pectoris Status: Chronic (4) Nonrheumatic mitral (valve) insufficiency Status: Chronic (5) Flash pulmonary edema Status: Acute (6) Acute exacerbation of CHF (congestive heart failure) Status: Acute Qualifiers: Heart failure type: systolic Qualified Code(s): I50.23 - Acute on chronic systolic (congestive) heart failure (7) COPD exacerbation Status: Resolved (8) Chronic ulcer of buttock Status: Resolved (9) Diabetes mellitus Status: Chronic Qualifiers: Diabetes mellitus type: type 2 Diabetes mellitus senior care insulin use: with metal hanging supervisor use Diabetes mellitus complication status: with unspecified complications Qualified Code(s): E11.8 - Type 2 diabetes mellitus with unspecified complications; Z79.4 - economist research assistant (current) use of insulin (10) Hypertension Status: Chronic Qualifiers: Hypertension type: essential hypertension (11) History of CVA (cerebrovascular accident) Status: Chronic (12) Tobacco abuse Status: Chronic (13) PVD (peripheral vascular disease) Status: Chronic (14) Carotid arterial disease Status: Chronic Qualifiers: Laterality: right (15) Hyperlipidemia Status: Chronic Qualifiers: Hyperlipidemia type: unspecified Qualified Code(s): E78.5 - Hyperlipidemia, unspecified History of Present Illness Date of Admission: 07/24/18 Chief Complaint: Shortness of breath since woke up today The patient is a 62 year old F with multiple cardiac history and COPD as listed below came to ER with sudden onset of shortness of breath when she woke up today. She also complained of midsternal localized chest pain/pressure without radiation that is resolved now. She has dry cough. In ED, she was very short of breath, tachypneic respiratory rate 40, pulse ox 70% on room air and 93 on nonrebreather, tachycardic 105/min. She was put on BiPAP and her breathing has improved since then. She was discharged on 07/05/2018 after evaluation of acute heart failure with reduced EF secondary to moderately severe MR, moderate TR and mid inferior and apical inferior ischemia on a stress test for outpatient [facility]. She had cardiac cath on 07/11 found severe coronary artery disease with totally occluded RCA and previously patent stents in circumflex and LAD. Moderately to severe pulmonary hypertension and moderately severe MR. There is planning for surgical consult for valvular disease in [facility] as an outpatient but before that patient is admitted. Chest x-ray shows passive congestion and CHF. Past Medical History Past Medical History (Chronic Problems): Chronic Problems (Last Reviewed 06/11/18 @ 05:13 by Kerwin Brizuela MD) Secondary pulmonary arterial hypertension (Chronic) Atherosclerosis of coronary artery of nome heart without angina pectoris (Chronic) Nonrheumatic mitral (valve) insufficiency (Chronic) Diabetes mellitus (Chronic) Hypertension (Chronic) History of CVA (cerebrovascular accident) (Chronic) Tobacco abuse (Chronic) PVD (peripheral vascular disease) (Chronic) Carotid arterial disease (Chronic) Hyperlipidemia (Chronic) Medical History: Medical History (Last Reviewed 06/11/18 @ 05:13 by Kerwin Brizuela MD) PVD (peripheral vascular disease) (Chronic) I73.9 Carotid arterial disease (Chronic) I77.9 Hyperlipidemia (Chronic) E78.5 Asthma J45.909 CVA (cerebral vascular accident) I63.9 Chronic back pain M54.9, G89.29 Depression F32.9 Diabetes E11.9 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 Z89.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 HTN (hypertension) I10 Allergies Penicillins Allergy (Severe, Verified 07/24/18 09:05) Swelling tolerated keflex in past with no issue Home Medications: Ambulatory Orders Medication Instructions Recorded Insulin Lispro [Humalog KwikPen] 3 unit SQ TIDCM 12/20/17 Atorvastatin Calcium [Lipitor] 40 mg PO QHS 05/08/18 Aspirin [Aspirin EC] 81 mg PO DAILY 05/24/18 Clopidogrel Bisulfate [Clopidogrel] 75 mg PO DAILY 05/24/18 Saxis-3 Fatty Acids [Saxis-3] 2,000 mg PO BID 05/24/18 Ergocalciferol (Vitamin D2) 50,000 unit PO WE 06/11/18 [Vitamin D2] Furosemide 40 mg PO DAILY 06/11/18 Sodium Chloride 0.65% [[place] Nasal 1 spray NASAL PRN PRN 06/11/18 [place]] Buspirone HCl 10 mg PO TID 07/02/18 Ipratropium/Albuterol Sulfate 3 ml INHALATION Q6H PRN PRN 07/02/18 [Duoneb] Loratadine 10 mg PO DAILY 07/02/18 amlodipine 5 mg tablet 5 mg PO DAILY #30 tab 07/11/18 isosorbide mononitrate ER 30 mg 30 mg PO DAILY #30 tab 07/11/18 tablet,extended release 24 hr Acetaminophen [Tylenol Tablet] 1,000 mg PO BID PRN PRN 07/24/18 Carvedilol 6.25 mg PO BID 07/24/18 Gabapentin [Neurontin] 100 mg PO TID PRN PRN 07/24/18 Insulin Glargine,Hum.rec.anlog 10 unit SQ QHS 07/24/18 [Basaglar Kwikpen U-100] Senna [Senokot] 2 tablet PO BID 07/24/18 Surgical History: Surgical History (Last Updated 07/11/18 @ 09:28 by Karin Clayton) History of esophagogastroduodenoscopy (EGD) Z98.890 S/P carotid endarterectomy Z98.890 S/P colonoscopy Z98.890 History of right and left heart catheterization Onset Date: 07/11/18 Z98.890 Surgical History: - - Patient has undergone right carotid endarterectomy by Dr. Siva Jimenez approximately 7 years ago. She is a Ab0. Amputation of small toe of left foot Psychiatric History: Anxiety, Depression CLOD PULLER History: No pertinent CLOD PULLER history Smoking Status: Former smoker - Started at the age of 16, a pack per day and quit about 2 months ago in April 2018. About 46 pack years of smoking - *Family History Maternal Family History: Family History (Last Updated 11/08/17 @ 13:38 by Melva Ashby) Mother No problems noted. History Items: Heart Disease, - - Patient's father in his 40s from myocardial infarction. Patient's mother in her 40s from a cerebrovascular accident. Paternal Family History: Family History (Last Updated 11/08/17 @ 13:38 by Melva Ashby) Mother No problems noted. History Items: Heart Disease - There was heart disease in both maternal and paternal side. Review of Systems Constitutional: Denies: Chills, Fever, Weight Change HEENT: Denies: Head Aches, Sinus Congestion, Sinus Drainage Cardiovascular: Denies: Chest Pain, Palpitations Respiratory: Denies: Cough, Shortness of breath at rest, Sputum production Gastrointestinal: Reports: Abdominal Pain - Complaint of left abdominal pain for a few days. Had bowel movement today and denies abnormality including blood or mucus. On a stool softener. Denies nausea or vomiting or hematemesis. Denies: Hematemesis, Hematochezia, Nausea, Melena, Vomiting Genitourinary: Denies: Dysuria Musculoskeletal: Denies: Joint Pain, Joint Tenderness Skin: Denies: Rash, Wounds Neurological: Denies: Numbness, Tingling, Focal weakness Psychiatric: Denies: Anxiety, Depression, Homicidal Ideations, Suicidal Ideations Hematologic/ Lymphatic: Denies: Easy Bruising, Easy Bleeding VTE Information - Inpt Only VTE Present on Admission: No VTE Mechan Device Prophylaxis: None VTE Pharm Prophylaxis ordered?: Yes - Physical Exam General: Alert, Oriented x3, Cooperative HEENT: Atraumatic, PERRLA, EOMI, Normocephalic Oral: Dry Mucosa Neck: Supple, No JVD, Negative Carotid Bruits Lungs: Diminished - Air entry is diminished bilaterally., Rales, Rhonchi, Short of Breath Cardiovascular: Regular rate, Regular Rhythm, Normal S1, Normal S2, Murmur - Systolic murmur present over mitral area and left lower sternal border. Abdomen: Bowel Sounds Present, Soft, Non-Distended, Obese, Tender - Mild deep tenderness present over left side of her abdomen. No guarding or rigidity. No history of hysterectomy. Extremities: No edema, Capillary Refill Less than 3 Seconds Skin: No rashes, No breakdown Musculoskeletal: No Tenderness to Palpation of Joints or Extremities Neurological: Cranial nerves II-XII grossly intact Psych/Mental Status: Normal Affect, Appropriate Vital Signs Temp Pulse Resp BP Pulse Ox 97.6 F L 95 24 H 171/81 H 93 07/24/18 11:31 07/24/18 11:31 07/24/18 11:31 07/24/18 11:31 07/24/18 11:31 Oxygen Flow Rate (L/min) 4 Oxygen Delivery Method Nasal Cannula Weight: 168 lb 6.931 oz Body Mass Index (BMI) 28.0 Laboratory Tests Past 24 Hrs 07/24/18 07/24/18 09:13 09:13 WBC 8.3 RBC 3.81 L Hgb 11.0 L Hct 35.1 L MCV 92.1 MCH 28.9 MCHC 31.3 L RDW 14.8 H RDW Differential 48.3 H Plt Count 296 MPV 10.0 Immature Gran % (Auto) 0.200 Neut % (Auto) 71.8 H Lymph % (Auto) 15.0 L [place] % (Auto) 4.7 Eos % (Auto) 7.6 H Baso % (Auto) 0.7 Absolute Neuts (auto) 6.0 Absolute Lymphs (auto) 1.25 Total Counted Not Reportable Sodium 141 Potassium 4.7 Chloride 106 Carbon Dioxide 23.0 Anion Gap 12 BUN 39 H Creatinine 1.55 H Estim Creat Clear Calc 33.86 Est GFR (MDRD) Af Amer 44 L Est GFR (MDRD) Non-Af 36 L BUN/Creatinine Ratio 25.2 H Glucose 248 H Calcium 8.7 Troponin I 0.026 Assessment/Plan All Active Problems (Last Reviewed 06/11/18 @ 05:13 by Kerwin Brizuela MD) History of coronary artery stent placement (Resolved) Flash pulmonary edema (Acute) Acute exacerbation of CHF (congestive heart failure) (Acute) COPD exacerbation (Resolved) Chronic ulcer of buttock (Resolved) The patient is a 62 year old F with multiple cardiac history and COPD as listed below came to ER with sudden onset of shortness of breath when she woke up today. She also complained of midsternal localized chest pain/pressure without radiation that is resolved now. She has dry cough. In ED, she was very short of breath, tachypneic respiratory rate 40, pulse ox 70% on room air and 93 on nonrebreather, tachycardic 105/min. She was put on BiPAP and her breathing has improved since then. She was discharged on 07/05/2018 after evaluation of acute heart failure with re duced EF secondary to moderately severe MR, moderate TR and mid inferior and apical inferior ischemia on a stress test for outpatient [facility]. She had cardiac cath on 07/11 found severe coronary artery disease with totally occluded RCA and previously patent stents in circumflex and LAD. Moderately to severe pulmonary hypertension and moderately severe MR. There is planning for surgical consult for valvular disease in [facility] as an outpatient but before that patient is admitted. Chest x-ray shows passive congestion and CHF. Patient also complained of left- sided abdominal pain for a few days. Normal bowel movement. Has increased frequency and urgency, chronic urinary incontinence but denies burning micturition. 1. Acute on chronic systolic heart failure with pulmonary edema most probably secondary to severe MR with moderately severe pulmonary hypertension: Patient is being admitted in PCU. On IV Lasix 40 mg every 12 hourly. Troponin is negative. Twelve-lead EKG shows normal sinus rhythm at 100 bpm. On heart failure protocol including aspirin, diuretic, Coreg and atorvastatin. Monitor electrolytes and kidney function. 2. Acute hypoxic respiratory failure secondary to pulmonary edema: On intermittent BiPAP. Oxygen therapy. 3. Left-sided mild abdominal pain, exact etiology unclear: Does not seem to be infectious or inflammatory, suspect from constipation: Plain x-ray KUB ordered. UA is ordered. 4. Valvular heart disease including moderately severe MR, moderate TR and moderately severe pulmonary hypertension: Patient had complete cardiac workup before including echo, stress test and cardiac cath. Discussed with the white sugar supervisor and she may be considered after stabilization. Will update white sugar supervisor tomorrow and further recommendation accordingly. 5. Coronary artery disease with multiple stents: Cardiac cath as reported above. Currently, does not seem patient has acute coronary syndrome. Follow one more troponin. 6. COPD: No exacerbation. Continue baseline DuoNeb and inhaler. 7. Diabetes mellitus type 2 with hyperglycemia: A1c tomorrow a.m. Accu-Chek before meals and at bedtime cover with Humalog sliding scale. Is started on Lantus 10 units subcutaneous at bedtime daily. 8. Other comorbidities could hypertension, CVA, hypothyroidism and dyslipidemia: Multiple comorbidities complicates the present care and expect difficult and delay recovery DVT prophylaxis: On Lovenox 40 mg subcut daily. Clinical Impression(s) from Imaging Studies Chest X-Ray 07/24/18 09:12 IMPRESSION: Findings in keeping with passive congestion and CHF. Code Visit Inpatient E&M: 52028 Init Hosp L3
--- NOTE | 2018-07-24 12:25 | CASEMGMT ---
RN CM Assessment Introduced role of RN CM to patient. Patient is alert, oriented and able to participate in RN CM Assessment. Care providers, pharmacy, and demographics verified. Presentation: Admitted for Acute resp failure, Pulmonary Edema, CHF. CC: SOB, O2 sat 70's with EMS, Not on Home O2. Re-Admit: 06/11/18-06/13/18 for Acute CHF exacerbation, 07/02/18-07/05/18 for Acute CHF exacerbation. Patient was given a cylinder to measure her fluid restriction at home, unsure what daily max allowance, thinks 1.5liters daily. does have a scale and weighs herself at home, instructed to call her doctor if gains more than 3lbs/day, States just drinks water when she is thirsty, uses a salt substitute, CM educated and encouraged fluid restriction/monitoring, salt monitoring, and daily weights, advise to call her doctor if noticing weight gain or symptoms to possibly adjust medication. Acknowledged and Stated understanding. PCP: Dr Evens Jimenez Specialists: Cardio- Dr Good Preferred Pharmacy: [facility] Insurance: [employer] Prescription Benefit: Yes LNOK: [employer] Living Arrangements: Patient is on SSDI not working, lives with who does not work, 30yo son who is on disability in a [facility] apartment, approx 10 stairs inside and 7 outside. Ambulates with can and walker. Independent with ADL's. Does not drive. Daughter lives across from her drives for grocery shopping or appointments or her other son who lives near by transports as well. Transportation: Son or daughter DME: Cane, walker, shower chair, Nebulizer. No preference on DME Company. HHC: Used [facility] in the past, no preference on Agency. SNF: SNF in [facility] in the past, no preference if needed. DC PLAN: Home with possible Home O2, Possible HH RN for Heart Failure education/teaching.
--- NOTE | 2018-07-24 12:34 | RAD_ITS ---
STUDY: X-RAY - ABDOMEN/PELVIS REASON FOR EXAM: Female, 62 years old. Left abdominal pain TECHNIQUE: 5 views COMPARISON: None. FINDINGS: Interstitial prominence at the visualized lung bases. There is an unremarkable bowel gas pattern. Mild colonic fecal retention. There is no demonstrated free abdominal air. The visualized liver, spleen and kidneys are grossly normal in size and morphology. Normal soft tissue structures. Degenerative changes of the vertebral column and hips. RAD/Abd Inc Decub and/or Erect IMPRESSION: Mild colonic fecal retention. No sign of bowel obstruction. Interstitial prominence at the lung bases. Electronically Signed: Spencer Murphy DO at 18:55 EST Tel [phone], Service support ,
--- NOTE | 2018-07-24 13:07 | NURSING ---
Spoke with Halina in ER - no lactic orders per MD - all CHF related per orders
[2018-07-24 13:08] LABS: BNP,B-Type NATRIURETIC PEPTIDE 758.4 pg/mL (0-100)
[2018-07-24 13:31] LABS: Bedside Glucose 265 mg/dL (70-110)
[2018-07-24] MEDS: busPIRone 5 MG Tablet 10 MG PO ×2 (15:04→21:08)
[2018-07-24] MEDS: Enoxaparin 40 MG/0.4 ML Syringe SC (15:05)
[2018-07-24] MEDS: Insulin Lispro 100 UNIT/ML INSULN.PEN SQ ×2 (17:39→21:09)
[2018-07-24] MEDS: Glucerna Shake 120 ML LIQUID PO (17:40)
[2018-07-24] MEDS: Carvedilol 6.25 MG Tablet PO (17:40)
[2018-07-24] MEDS: Insulin Lispro 100 UNIT/ML INSULN.PEN SC (17:40)
[2018-07-24] MEDS: 0.9% NaCl Peripheral Flush Adult/Peds IV (17:40)
[2018-07-24 17:51] LABS: Bedside Glucose 173 mg/dL (70-110)
[2018-07-24 21:06] LABS: Bedside Glucose 169 mg/dL (70-110)
[2018-07-24] MEDS: Atorvastatin Calcium 40 MG Tablet PO (21:08)
[2018-07-24] MEDS: Zolpidem Tartrate 5 MG Tablet PO (21:08)
[2018-07-24] MEDS: Sodium Chloride 0.65% 1 SPRAY SPRAY.BTL NASAL (21:19)
[2018-07-24] MEDS: Acetaminophen 325 MG Tablet 650 MG PO (21:24)
[2018-07-24] MEDS: Gabapentin 100 MG Capsule PO (21:33)
[2018-07-25] VITALS (12 sets, daily range): BP systolic 118–158; BP diastolic 38–102; PULSE 76–88; RESP 18–20; TEMP 36.7–37.2; O2SAT 96–100
[2018-07-25] MEDS: busPIRone 5 MG Tablet 10 MG PO ×3 (06:47→21:59)
[2018-07-25 06:52] LABS: Anion Gap 10 (5-15); BUN 41 mg/dL (7-18); BUN/Creat Ratio 26.1 RATIO (10-20); Calcium,Total 8.2 mg/dL (8.5-10.1); Chloride 108 mmol/L (98-107); Cholesterol 128 mg/dL (200); Creatinine, Serum 1.57 mg/dL (0.55-1.02); EST Glomerular Filtration Rate 35 mL/min (>60); Est Glom Filt Rate - Afr Amer 43 mL/min (>60); Estimated Creatinine Clearance 32.08 ml/min; Glucose 155 mg/dL (74-106); High Density Lipoprotein 58 mg/dL; Magnesium 2.4 mg/dL (1.6-2.6); Potassium 3.6 mmol/L (3.5-5.1); Sodium Level 143 mmol/L (136-145); Triglycerides 134 mg/dL; Very Low Density Lipoprotein 27 mg/dL (5-40)
[2018-07-25 07:00] LABS: Bedside Glucose 171 mg/dL (70-110)
[2018-07-25 08:33] LABS: Hemoglobin A1c 6.9 % (4.2-6.3)
[2018-07-25] MEDS: Enoxaparin 40 MG/0.4 ML Syringe SC (08:51)
[2018-07-25] MEDS: Aspirin E.C. 81 MG Tablet PO (08:51)
[2018-07-25] MEDS: Carvedilol 6.25 MG Tablet PO ×2 (08:51→16:43)
[2018-07-25] MEDS: Clopidogrel Bisulfate 75 MG Tablet PO (08:52)
[2018-07-25] MEDS: Isosorbide Mononitrate 30 MG Tablet PO (08:52)
[2018-07-25] MEDS: Insulin Lispro 100 UNIT/ML INSULN.PEN SQ ×4 (08:53→21:55)
[2018-07-25] MEDS: Furosemide 40 MG/4 ML Vial IV ×2 (08:53→16:45)
[2018-07-25] MEDS: Glucerna Shake 120 ML LIQUID PO ×3 (08:53→16:43)
[2018-07-25] MEDS: Insulin Lispro 100 UNIT/ML INSULN.PEN SC ×3 (08:54→16:43)
[2018-07-25] MEDS: Acetaminophen 325 MG Tablet 650 MG PO ×2 (09:03→15:13)
[2018-07-25] MEDS: 0.9% NaCl Peripheral Flush Adult/Peds IV ×2 (09:03→16:45)
[2018-07-25] MEDS: Gabapentin 100 MG Capsule PO (10:47)
[2018-07-25] MEDS: Loratadine 10 MG Tablet PO (10:47)
[2018-07-25] MEDS: Ipratropium/Albuterol Sulfate 3 ML AMPUL.NEB INHALATION (11:07)
[2018-07-25] MEDS: Ketorolac 15 MG/ML Vial IV (11:16)
[2018-07-25 11:45] LABS: Bedside Glucose 253 mg/dL (70-110)
--- NOTE | 2018-07-25 14:15 | PCM.PN.HOSP ---
Subjective: Patient is still short of breath. Although subjectively she feels better but is wheezing. Vitals/I&O's: Vital Signs Temp Pulse Resp BP Pulse Ox 99.0 F 87 18 158/75 H 97 07/25/18 13:58 07/25/18 13:58 07/25/18 13:58 07/25/18 13:58 07/25/18 13:58 Oxygen Flow Rate (L/min) 3 Oxygen Delivery Method Room Air Weight: 154 lb 5.177 oz Body Mass Index (BMI) 25.7 Intake and Output for Last 24 Hours 07/23/18 07/24/18 07/25/18 23:59 23:59 23:59 Intake Total 520 / 520 520 / 520 Output Total 700 / 700 300 / 300 Balance -180 / -180 220 / 220 General: Alert, Oriented x3, Cooperative HEENT: Atraumatic, PERRLA, EOMI, Normocephalic Neck: Supple, No JVD, Negative Carotid Bruits Lungs: No wheeze, Diminished - Air entry is diminished., Rales Cardiovascular: Regular rate, Regular Rhythm, Normal S1, Normal S2, No murmurs, Murmur - Systolic murmur present over mitral area and left lower sternal border. Abdomen: Bowel Sounds Present, Soft, Non Tender, Non-Distended Extremities: Capillary Refill Less than 3 Seconds, Edema Skin: No rashes, No breakdown Musculoskeletal: No Tenderness to Palpation of Joints or Extremities Neurological: Cranial nerves II-XII grossly intact Psych/Mental Status: Normal Affect, Appropriate Laboratory Results 07/24/18 15:32: Troponin I 0.038 07/24/18 17:32: POC Glucose 173 H 07/24/18 20:00: Troponin I 0.040 07/24/18 21:01: POC Glucose 169 H 07/25/18 05:40: Sodium 143, Potassium 3.6, Chloride 108 H, Carbon Dioxide 25.0, Anion Gap 10, BUN 41 H, Creatinine 1.57 H, Estim Creat Clear Calc 32.08, Est GFR (MDRD) Af Amer 43 L, Est GFR (MDRD) Non-Af 35 L, BUN/Creatinine Ratio 26.1 H, Glucose 155 H, Calcium 8.2 L, Magnesium 2.4, Triglycerides 134, Cholesterol 128, LDL Cholesterol 43, VLDL Cholesterol 27, HDL Cholesterol 58, TSH 1.70 02/27/19 05:40: Hemoglobin A1c 6.9 H 07/25/18 06:47: POC Glucose 171 H 07/25/18 11:10: POC Glucose 253 H Current Medications Acetaminophen (Tylenol) 650 mg PO Q6H PRN PRN PRN Reason: PAIN Last Admin: 07/25/18 09:03 Dose: 650 mg Al Hydroxide/Mg Hydroxide (Mylanta Ii) 30 ml PO Q6H PRN PRN PRN Reason: Gastric Burning Albuterol/Ipratropium (Duoneb) 3 ml INHALATION Q6H PRN PRN PRN Reason: SOB &/OR WHEEZING Last Admin: 07/25/18 11:07 Dose: 3 ml Aspirin (Ecotrin) 81 mg PO DAILY@0800 [facility] Last Admin: 07/25/18 08:51 Dose: 81 mg Atorvastatin Calcium (Lipitor) 40 mg PO QHS [facility] Last Admin: 07/24/18 21:08 Dose: 40 mg Bisacodyl (Dulcolax) 10 mg RECTAL DAILY PRN PRN PRN Reason: Constipation Buspirone HCl (Buspar) 10 mg PO TID [facility] Last Admin: 07/25/18 13:56 Dose: 10 mg Carvedilol (Coreg) 6.25 mg PO BIDCM [facility] Last Admin: 07/25/18 08:51 Dose: 6.25 mg Clopidogrel Bisulfate (Plavix) 75 mg PO DAILY [facility] Last Admin: 07/25/18 08:52 Dose: 75 mg Dextrose (D50w Syringe) 0 gm IV X1 PRN; Protocol PRN Reason: Hypoglycemia Enoxaparin Sodium (Lovenox) 40 mg SC DAILY [facility] Last Admin: 07/25/18 08:51 Dose: 40 mg Ergocalciferol (Vitamin D) 50,000 unit PO WE [facility] Last Admin: 07/25/18 08:52 Dose: 50,000 unit Furosemide (Lasix) 40 mg IV BIDLX [facility] Last Admin: 07/25/18 08:53 Dose: 40 mg Gabapentin (Neurontin) 100 mg PO TID PRN PRN PRN Reason: PAIN Last Admin: 07/25/18 10:47 Dose: 100 mg Glucagon () 1 mg IM .X1 PRN PRN Reason: Hypoglycemia Insulin Glargine (Lantus (Bkc)) 10 units SC QHS [facility] Last Admin: 07/24/18 21:21 Dose: 10 u Insulin Human Lispro (Humalog Kwikpen (Bkc)) 0 unit SQ ACHS [facility]; Protocol Last Admin: 07/25/18 11:16 Dose: 4 u Insulin Human Lispro (Humalog Kwikpen (Bkc)) 3 unit SC TIDCM [facility] Last Admin: 07/25/18 11:16 Dose: 3 units Isosorbide Mononitrate (Imdur) 30 mg PO DAILY [facility] Last Admin: 07/25/18 08:52 Dose: 30 mg Loratadine (Claritin) 10 mg PO DAILY PRN PRN Reason: nasal congesation Last Admin: 07/25/18 10:47 Dose: 10 mg Nutritional Formula (Lactose Free) (Glucerna Shake) 120 ml PO TIDCM [facility] Last Admin: 07/25/18 11:16 Dose: 120 ml Ondansetron HCl (Zofran) 4 mg IV Q8H PRN PRN PRN Reason: Nausea Polyethylene Glycol (Miralax) 17 gm PO DAILY [facility] Last Admin: 07/25/18 08:51 Dose: Not Given Sodium Chloride ([place] Nasal [place]) 1 spray NASAL 4X/DAY PRN PRN PRN Reason: NASAL DRYNESS Last Admin: 07/24/18 21:19 Dose: 1 spray Sodium Chloride () 5 - 15 ml IV UD PRN PRN Reason: SALINE FLUSH Last Admin: 07/25/18 09:03 Dose: 10 ml Zolpidem Tartrate (Ambien (Generic)) 5 mg PO QHS PRN PRN PRN Reason: INSOMNIA Last Admin: 07/24/18 21:08 Dose: 5 mg Medical Necessity - Tobacco Use Smoking Status: Former smoker Assessment/Plan All Active Problems (Last Reviewed 06/11/18 @ 05:13 by Kerwin Brizuela MD) History of coronary artery stent placement (Resolved) Flash pulmonary edema (Acute) Acute exacerbation of CHF (congestive heart failure) (Acute) COPD exacerbation (Resolved) Chronic ulcer of buttock (Resolved) The patient is a 62 year old F with multiple cardiac history and COPD as listed below came to ER with sudden onset of shortness of breath when she woke up today. She also complained of midsternal localized chest pain/pressure without radiation that is resolved now. She has dry cough. In ED, she was very short of breath, tachypneic respiratory rate 40, pulse ox 70% on room air and 93 on nonrebreather, tachycardic 105/min. She was put on BiPAP and her breathing has improved since then. She was discharged on 07/05/2018 after evaluation of acute heart failure with reduced EF secondary to moderately severe MR, moderate TR and mid inferior and apical inferior ischemia on a stress test for outpatient [facility]. She had cardiac cath on 07/11 found severe coronary artery disease with totally occluded RCA and previously patent stents in circumflex and LAD. Moderately to severe pulmonary hypertension and moderately severe MR. There is planning for surgical consult for valvular disease in [facility] as an outpatient but before that patient is admitted. Chest x-ray shows passive congestion and CHF. Patient also complained of left-sided abdominal pain for a few days. Normal bowel movement. Has increased frequency and urgency, chronic urinary incontinence but denies burning micturition. 1. Acute on chronic systolic heart failure with pulmonary edema most probably secondary to severe MR with moderately severe pulmonary hypertension: Patient is being admitted in PCU. On IV Lasix 40 mg every 12 hourly. Troponin is negative. Twelve-lead EKG shows normal sinus rhythm at 100 bpm. On heart failure protocol including aspirin, diuretic, Coreg and atorvastatin. Monitor electrolytes and kidney function. Creatinine is 1.57 at baseline. TSH within normal limit. Fasting profile within normal limit 2. Acute hypoxic respiratory failure secondary to pulmonary edema: On intermittent BiPAP. Oxygen therapy. 3. Left-sided mild abdominal pain, probably from constipation does not seem to be infectious or inflammatory, suspect from constipation: Plain x-ray KUB shows colonic fecal retention. UA is ordered. 4. Valvular heart disease including moderately severe MR, moderate TR and moderately severe pulmonary hypertension: Patient had complete cardiac workup before including echo, stress test and cardiac cath. Discussed with the assembler bicycle and she may be considered after stabilization. Will update assembler bicycle tomorrow and further recommendation accordingly. 5. Coronary artery disease with multiple stents: Cardiac cath as reported above. Currently, does not seem patient has acute coronary syndrome. Follow one more troponin. 6. COPD: No exacerbation. Continue baseline DuoNeb and inhaler. 7. Diabetes mellitus type 2 with hyperglycemia: A1c tomorrow 6.9. Accu-Chek before meals and at bedtime cover with Humalog sliding scale. Is started on Lantus 10 units subcutaneous at bedtime daily. 8. Other comorbidities could hypertension, CVA, hypothyroidism and dyslipidemia: Multiple comorbidities complicates the present care and expect difficult and delay recovery DVT prophylaxis: On Lovenox 40 mg subcut daily. Clinical Impression(s) from Imaging Studies Chest X-Ray 07/24/18 09:12 IMPRESSION: Findings in keeping with passive congestion and CHF. Laboratory Results 07/24/18 15:32: Troponin I 0.038 07/24/18 17:32: POC Glucose 173 H 07/24/18 20:00: Troponin I 0.040 07/24/18 21:01: POC Glucose 169 H 07/25/18 05:40: Sodium 143, Potassium 3.6, Chloride 108 H, Carbon Dioxide 25.0, Anion Gap 10, BUN 41 H, Creatinine 1.57 H, Estim Creat Clear Calc 32.08, Est GFR (MDRD) Af Amer 43 L, Est GFR (MDRD) Non-Af 35 L, BUN/Creatinine Ratio 26.1 H, Glucose 155 H, Calcium 8.2 L, Magnesium 2.4, Triglycerides 134, Cholesterol 128, LDL Cholesterol 43, VLDL Cholesterol 27, HDL Cholesterol 58, TSH 1.70 07/25/18 05:40: Hemoglobin A1c 6.9 H 07/25/18 06:47: POC Glucose 171 H 07/25/18 11:10: POC Glucose 253 H Clinical Impression(s) from Imaging Studies Chest X-Ray 07/24/18 09:12 IMPRESSION: Findings in keeping with passive congestion and CHF. Abdomen X-Ray 07/24/18 12:34 IMPRESSION: Mild colonic fecal retention. No sign of bowel obstruction. Interstitial prominence at the lung bases. Code Visit Inpatient E&M: 51854 Init Hosp L3
--- NOTE | 2018-07-25 14:19 | PN_ITS ---
Subjective: Patient is still short of breath. Although subjectively she feels better but is wheezing. Vitals/I&O's: Vital Signs Temp Pulse Resp BP Pulse Ox 99.0 F 87 18 158/75 H 97 07/25/18 13:58 07/25/18 13:58 07/25/18 13:58 07/25/18 13:58 07/25/18 13:58 Oxygen Flow Rate (L/min) 3 Oxygen Delivery Method Room Air Weight: 154 lb 5.177 oz Body Mass Index (BMI) 25.7 Intake and Output for Last 24 Hours 07/23/18 07/24/18 07/25/18 23:59 23:59 23:59 Intake Total 520 / 520 520 / 520 Output Total 700 / 700 300 / 300 Balance -180 / -180 220 / 220 General: Alert, Oriented x3, Cooperative HEENT: Atraumatic, PERRLA, EOMI, Normocephalic Neck: Supple, No JVD, Negative Carotid Bruits Lungs: No wheeze, Diminished - Air entry is diminished., Rales Cardiovascular: Regular rate, Regular Rhythm, Normal S1, Normal S2, No murmurs, Murmur - Systolic murmur present over mitral area and left lower sternal border. Abdomen: Bowel Sounds Present, Soft, Non Tender, Non-Distended Extremities: Capillary Refill Less than 3 Seconds, Edema Skin: No rashes, No breakdown Musculoskeletal: No Tenderness to Palpation of Joints or Extremities Neurological: Cranial nerves II-XII grossly intact Psych/Mental Status: Normal Affect, Appropriate Laboratory Results 07/24/18 15:32: Troponin I 0.038 07/24/18 17:32: POC Glucose 173 H 07/24/18 20:00: Troponin I 0.040 07/24/18 21:01: POC Glucose 169 H 07/25/18 05:40: Sodium 143, Potassium 3.6, Chloride 108 H, Carbon Dioxide 25.0, Anion Gap 10, BUN 41 H, Creatinine 1.57 H, Estim Creat Clear Calc 32.08, Est GFR (MDRD) Af Amer 43 L, Est GFR (MDRD) Non-Af 35 L, BUN/Creatinine Ratio 26.1 H, Glucose 155 H, Calcium 8.2 L, Magnesium 2.4, Triglycerides 134, Cholesterol 128, LDL Cholesterol 43, VLDL Cholesterol 27, HDL Cholesterol 58, TSH 1.70 02/27/19 05:40: Hemoglobin A1c 6.9 H 07/25/18 06:47: POC Glucose 171 H 07/25/18 11:10: POC Glucose 253 H Current Medications Acetaminophen (Tylenol) 650 mg PO Q6H PRN PRN PRN Reason: PAIN Last Admin: 07/25/18 09:03 Dose: 650 mg Al Hydroxide/Mg Hydroxide (Mylanta Ii) 30 ml PO Q6H PRN PRN PRN Reason: Gastric Burning Albuterol/Ipratropium (Duoneb) 3 ml INHALATION Q6H PRN PRN PRN Reason: SOB &/OR WHEEZING Last Admin: 07/25/18 11:07 Dose: 3 ml Aspirin (Ecotrin) 81 mg PO DAILY@0800 [facility] Last Admin: 07/25/18 08:51 Dose: 81 mg Atorvastatin Calcium (Lipitor) 40 mg PO QHS [facility] Last Admin: 07/24/18 21:08 Dose: 40 mg Bisacodyl (Dulcolax) 10 mg RECTAL DAILY PRN PRN PRN Reason: Constipation Buspirone HCl (Buspar) 10 mg PO TID [facility] Last Admin: 07/25/18 13:56 Dose: 10 mg Carvedilol (Coreg) 6.25 mg PO BIDCM [facility] Last Admin: 07/25/18 08:51 Dose: 6.25 mg Clopidogrel Bisulfate (Plavix) 75 mg PO DAILY [facility] Last Admin: 07/25/18 08:52 Dose: 75 mg Dextrose (D50w Syringe) 0 gm IV X1 PRN; Protocol PRN Reason: Hypoglycemia Enoxaparin Sodium (Lovenox) 40 mg SC DAILY [facility] Last Admin: 07/25/18 08:51 Dose: 40 mg Ergocalciferol (Vitamin D) 50,000 unit PO WE [facility] Last Admin: 07/25/18 08:52 Dose: 50,000 unit Furosemide (Lasix) 40 mg IV BIDLX [facility] Last Admin: 07/25/18 08:53 Dose: 40 mg Gabapentin (Neurontin) 100 mg PO TID PRN PRN PRN Reason: PAIN Last Admin: 07/25/18 10:47 Dose: 100 mg Glucagon () 1 mg IM .X1 PRN PRN Reason: Hypoglycemia Insulin Glargine (Lantus (Bkc)) 10 units SC QHS [facility] Last Admin: 07/24/18 21:21 Dose: 10 u Insulin Human Lispro (Humalog Kwikpen (Bkc)) 0 unit SQ ACHS [facility]; Protocol Last Admin: 07/25/18 11:16 Dose: 4 u Insulin Human Lispro (Humalog Kwikpen (Bkc)) 3 unit SC TIDCM [facility] Last Admin: 07/25/18 11:16 Dose: 3 units Isosorbide Mononitrate (Imdur) 30 mg PO DAILY [facility] Last Admin: 07/25/18 08:52 Dose: 30 mg Loratadine (Claritin) 10 mg PO DAILY PRN PRN Reason: nasal congesation Last Admin: 07/25/18 10:47 Dose: 10 mg Nutritional Formula (Lactose Free) (Glucerna Shake) 120 ml PO TIDCM [facility] Last Admin: 07/25/18 11:16 Dose: 120 ml Ondansetron HCl (Zofran) 4 mg IV Q8H PRN PRN PRN Reason: Nausea Polyethylene Glycol (Miralax) 17 gm PO DAILY [facility] Last Admin: 07/25/18 08:51 Dose: Not Given Sodium Chloride ([place] Nasal [place]) 1 spray NASAL 4X/DAY PRN PRN PRN Reason: NASAL DRYNESS Last Admin: 07/24/18 21:19 Dose: 1 spray Sodium Chloride () 5 - 15 ml IV UD PRN PRN Reason: SALINE FLUSH Last Admin: 07/25/18 09:03 Dose: 10 ml Zolpidem Tartrate (Ambien (Generic)) 5 mg PO QHS PRN PRN PRN Reason: INSOMNIA Last Admin: 07/24/18 21:08 Dose: 5 mg Medical Necessity - Tobacco Use Smoking Status: Former smoker Assessment/Plan All Active Problems (Last Reviewed 06/11/18 @ 05:13 by Kerwin Brizuela MD) History of coronary artery stent placement (Resolved) Flash pulmonary edema (Acute) Acute exacerbation of CHF (congestive heart failure) (Acute) COPD exacerbation (Resolved) Chronic ulcer of buttock (Resolved) The patient is a 62 year old F with multiple cardiac history and COPD as listed below came to ER with sudden onset of shortness of breath when she woke up today. She also complained of midsternal localized chest pain/pressure without radiation that is resolved now. She has dry cough. In ED, she was very short of breath, tachypneic respiratory rate 40, pulse ox 70% on room air and 93 on no nrebreather, tachycardic 105/min. She was put on BiPAP and her breathing has improved since then. She was discharged on 07/05/2018 after evaluation of acute heart failure with reduced EF secondary to moderately severe MR, moderate TR and mid inferior and apical inferior ischemia on a stress test for outpatient [facility]. She had cardiac cath on 07/11 found severe coronary artery disease with totally occluded RCA and previously patent stents in circumflex and LAD. Moderately to severe pulmonary hypertension and moderately severe MR. There is planning for surgical consult for valvular disease in [facility] as an outpatient but before that patient is admitted. Chest x-ray shows passive congestion and CHF. Patient also complained of left- sided abdominal pain for a few days. Normal bowel movement. Has increased frequency and urgency, chronic urinary incontinence but denies burning micturition. 1. Acute on chronic systolic heart failure with pulmonary edema most probably secondary to severe MR with moderately severe pulmonary hypertension: Patient is being admitted in PCU. On IV Lasix 40 mg every 12 hourly. Troponin is negative. Twelve-lead EKG shows normal sinus rhythm at 100 bpm. On heart failure protocol including aspirin, diuretic, Coreg and atorvastatin. Monitor electrolytes and kidney function. Creatinine is 1.57 at baseline. TSH within normal limit. Fasting profile within normal limit 2. Acute hypoxic respiratory failure secondary to pulmonary edema: On intermittent BiPAP. Oxygen therapy. 3. Left-sided mild abdominal pain, probably from constipation does not seem to be infectious or inflammatory, suspect from constipation: Plain x-ray KUB shows colonic fecal retention. UA is ordered. 4. Valvular heart disease including moderately severe MR, moderate TR and mo derately severe pulmonary hypertension: Patient had complete cardiac workup before including echo, stress test and cardiac cath. Discussed with the continuing education specialist and she may be considered after stabilization. Will update continuing education specialist tomorrow and further recommendation accordingly. 5. Coronary artery disease with multiple stents: Cardiac cath as reported above. Currently, does not seem patient has acute coronary syndrome. Follow one more troponin. 6. COPD: No exacerbation. Continue baseline DuoNeb and inhaler. 7. Diabetes mellitus type 2 with hyperglycemia: A1c tomorrow 6.9. Accu-Chek before meals and at bedtime cover with Humalog sliding scale. Is started on Lantus 10 units subcutaneous at bedtime daily. 8. Other comorbidities could hypertension, CVA, hypothyroidism and dysl ipidemia: Multiple comorbidities complicates the present care and expect difficult and delay recovery DVT prophylaxis: On Lovenox 40 mg subcut daily. Clinical Impression(s) from Imaging Studies Chest X-Ray 07/24/18 09:12 IMPRESSION: Findings in keeping with passive congestion and CHF. Laboratory Results 07/24/18 15:32: Troponin I 0.038 07/24/18 17:32: POC Glucose 173 H 07/24/18 20:00: Troponin I 0.040 07/24/18 21:01: POC Glucose 169 H 07/25/18 05:40: Sodium 143, Potassium 3.6, Chloride 108 H, Carbon Dioxide 25.0, Anion Gap 10, BUN 41 H, Creatinine 1.57 H, Estim Creat Clear Calc 32.08, Est GFR (MDRD) Af Amer 43 L, Est GFR (MDRD) Non-Af 35 L, BUN/Creatinine Ratio 26.1 H, Glucose 155 H, Calcium 8.2 L, Magnesium 2.4, Triglycerides 134, Cholesterol 128, LDL Cholesterol 43, VLDL Cholesterol 27, HDL Cholesterol 58, TSH 1.70 07/25/18 05:40: Hemoglobin A1c 6.9 H 07/25/18 06:47: POC Glucose 171 H 07/25/18 11:10: POC Glucose 253 H Clinical Impression(s) from Imaging Studies Chest X-Ray 07/24/18 09:12 IMPRESSION: Findings in keeping with passive congestion and CHF. Abdomen X-Ray 07/24/18 12:34 IMPRESSION: Mild colonic fecal retention. No sign of bowel obstruction. Interstitial prominence at the lung bases. Code Visit Inpatient E&M: 15246 Init Hosp L3
[2018-07-25 16:56] LABS: Bedside Glucose 214 mg/dL (70-110)
[2018-07-25] MEDS: traMADol 50 MG Tablet PO (17:07)
[2018-07-25] MEDS: Atorvastatin Calcium 40 MG Tablet PO (21:59)
[2018-07-25 22:40] LABS: Bedside Glucose 159 mg/dL (70-110)
[2018-07-26] VITALS (9 sets, daily range): BP systolic 113–165; BP diastolic 66–81; PULSE 75–90; RESP 16–18; TEMP 36.5–37; O2SAT 98–100
[2018-07-26] MEDS: busPIRone 5 MG Tablet 10 MG PO ×2 (06:25→14:15)
[2018-07-26 07:00] LABS: Bedside Glucose 143 mg/dL (70-110)
[2018-07-26] MEDS: Carvedilol 6.25 MG Tablet PO (08:09)
[2018-07-26] MEDS: Insulin Lispro 100 UNIT/ML INSULN.PEN SC ×2 (08:09→14:19)
[2018-07-26] MEDS: Glucerna Shake 120 ML LIQUID PO (08:09)
[2018-07-26] MEDS: Aspirin E.C. 81 MG Tablet PO (08:09)
--- NOTE | 2018-07-26 09:14 | RAD_ITS ---
STUDY: X-RAY CHEST REASON FOR EXAM: Female, 62 years old. Shortness of breath. CHF. TECHNIQUE: PA and lateral views of the chest. COMPARISON: Comparison is made with prior study dated July 24, 2018. FINDINGS: EKG electrodes are seen. Mild residual interstitial markings with vascular congestion in keeping with mild CHF. This has improved since prior study. Blunting of both costophrenic angles bilaterally. There is mild cardiac enlargement. Normal mediastinum and tom. Normal visualized pulmonary arteries. There is atherosclerotic tortuosity of the aortic arch and descending thoracic aorta. There are diffuse degenerative changes of the visualized thoracic spine. Normal visualized ribs, clavicles, and shoulders. There is no demonstrated abnormality of the visualized soft tissue structures of the upper abdomen. RAD/Chest PA and Lateral IMPRESSION: Mild degree of residual CHF although there has been improvement. Blunting of both costophrenic angles. Electronically Signed: Veto Giordano, at 14:30 EST , Service support ,
--- NOTE | 2018-07-26 09:39 | DCINST_ITS ---
You will use the following diet at home:: Cardiac Your food should be the consistency of: Regular Discharge Activity: May Not Drive, May not drive while taking narcotic pain medications. Call your doctor if you observe: Fever of 101 or Higher, Inability to urinate, Shortness of breath, Fainting spells, Swelling in the ankles, Prolonged hiccoughing Allergies/Adverse Reactions: Allergies Penicillins Allergy (Severe, Verified 07/24/18 09:05) Swelling tolerated keflex in past with no issue Medications to take at Discharge Insulin Lispro [Humalog KwikPen] 3 unit SQ TIDCM 12/20/17 Atorvastatin Calcium [Lipitor] 40 mg PO QHS 05/08/18 Aspirin [Aspirin EC] 81 mg PO DAILY 05/24/18 Clopidogrel Bisulfate [Clopidogrel] 75 mg PO DAILY 05/24/18 [place]-3 Fatty Acids [[place]-3] 2,000 mg PO BID 05/24/18 Ergocalciferol (Vitamin D2) [Vitamin D2] 50,000 unit PO WE 06/11/18 Sodium Chloride 0.65% [[place] Nasal [place]] 1 spray NASAL PRN PRN 06/11/18 Buspirone HCl 10 mg PO TID 07/02/18 Ipratropium/Albuterol Sulfate [Duoneb] 3 ml INHALATION Q6H PRN PRN 07/02/18 Loratadine 10 mg PO DAILY 07/02/18 amlodipine 5 mg tablet 5 mg PO DAILY #30 tab 07/11/18 isosorbide mononitrate ER 30 mg tablet,extended release 24 hr 30 mg PO DAILY #30 tab 07/11/18 Acetaminophen [Tylenol Tablet] 1,000 mg PO BID PRN PRN 07/24/18 Carvedilol 6.25 mg PO BID 07/24/18 Gabapentin [Neurontin] 100 mg PO TID PRN PRN 07/24/18 Insulin Glargine,Hum.rec.anlog [Basaglar Kwikpen U-100] 10 unit SQ QHS 07/24/18 Alprazolam [Xanax] 0.25 mg PO TID PRN #15 tablet 07/26/18 Furosemide 40 mg PO BID #30 tablet 07/26/18 Polyethylene Glycol 3350 [Miralax] 17 gm PO DAILY packet 07/26/18 Senna/Docusate Sodium [Senokot-S] 2 tablet PO BID PRN PRN #30 tablet 07/26/18 The following prescriptions were given: Senna/Docusate Sodium [Senokot-S] 2 tablet PO BID PRN PRN #30 tablet PRN Reason: constipation Furosemide 40 mg PO BID #30 tablet Alprazolam [Xanax] 0.25 mg PO TID PRN #15 tablet PRN Reason: Anxiety Primary Care Physician: Evens Jimenez III, MD [Primary Care Provider] - Please follow up with your Primary Care Physician in: in 1-2 weeks Test Results: Test results from this visit will be discussed in further detail at your follow- up appointment, if applicable. Please Follow Up With: Charles Good MD When: in 2-4 weeks for CHF, Severe MR
--- NOTE | 2018-07-26 09:39 | PCM.DC.SUM ---
Discharge Date and Diagnosis Date of Admission: 07/24/18 Date of Discharge: 07/26/18 - Secondary Discharge Diagnosis Chronic Problems (Last Reviewed 06/11/18 @ 05:13 by Kerwin Brizuela MD) Secondary pulmonary arterial hypertension (Chronic) Atherosclerosis of coronary artery of [place] heart without angina pectoris (Chronic) Nonrheumatic mitral (valve) insufficiency (Chronic) Diabetes mellitus (Chronic) Hypertension (Chronic) History of CVA (cerebrovascular accident) (Chronic) Tobacco abuse (Chronic) PVD (peripheral vascular disease) (Chronic) Carotid arterial disease (Chronic) Hyperlipidemia (Chronic) Hospital Course and Treatment Imaging Results: 07/26/18 09:14 Chest PA and Lateral [RAD] Routine Operations: None Summary of Care Provided: [] The patient is a 62 year old F with multiple cardiac history and COPD as listed below came to ER with sudden onset of shortness of breath when she woke up today. She also complained of midsternal localized chest pain/pressure without radiation that is resolved now. She has dry cough. In ED, she was very short of breath, tachypneic respiratory rate 40, pulse ox 70% on room air and 93 on nonrebreather, tachycardic 105/min. She was put on BiPAP and her breathing has improved since then. She was discharged on 07/05/2018 after evaluation of acute heart failure with reduced EF secondary to moderately severe MR, moderate TR and mid inferior and apical inferior ischemia on a stress test for outpatient [facility]. She had cardiac cath on 07/11 found severe coronary artery disease with totally occluded RCA and previously patent stents in circumflex and LAD. On echo, 07/02/18, EF 45% with mild to moderate segmental systolic dysfunction, stage III diastolic dysfunction moderately to severe pulmonary hypertension and moderately severe MR. There is planning for surgical consult for valvular disease in [facility] as an outpatient but before that patient is admitted. Chest x-ray shows passive congestion and CHF. Patient also complained of left-sided abdominal pain for a few days. Normal bowel movement. Has increased frequency and urgency, chronic urinary incontinence but denies burning micturition. 1. Acute on chronic systolic and diastolic combined heart failure with pulmonary edema most probably secondary to severe MR with moderately severe pulmonary hypertension: Patient is being admitted in PCU. On IV Lasix 40 mg every 12 hourly. Troponin is negative. Twelve-lead EKG shows normal sinus rhythm at 100 bpm. On heart failure protocol including aspirin, diuretic, Coreg and atorvastatin. Monitor electrolytes and kidney function. Creatinine is 1.57 at baseline. TSH within normal limit. Fasting profile within normal limit. Chest x-ray PA and lateral was done in order to see the fluid congestion/pulmonary edema. It shows improvement from the admission x-ray. Follow with Dr. ceja and need surgical consult with [facility] as mentioned above 2. Acute hypoxic respiratory failure secondary to pulmonary edema: On intermittent BiPAP. Oxygen therapy. Anxiety and panic attack: Patient was given a prescription of Xanax 0.25 mg 3 times daily as needed. She is already on BuSpar. 3. Left-sided mild abdominal pain, probably from constipation does not seem to be infectious or inflammatory, suspect from constipation: Plain x-ray KUB shows colonic fecal retention. UA is ordered. 4. Valvular heart disease including moderately severe MR, moderate TR and moderately severe pulmonary hypertension: Patient had complete cardiac workup before including echo, stress test and cardiac cath. Discussed with the orchard pruner and she may be considered after stabilization. Will update orchard pruner tomorrow and further recommendation accordingly. 5. Coronary artery disease with multiple stents: Cardiac cath as reported above. Currently, does not seem patient has acute coronary syndrome. Follow one more troponin. 6. COPD: No exacerbation. Continue baseline DuoNeb and inhaler. 7. Diabetes mellitus type 2 with hyperglycemia: A1c tomorrow 6.9. Accu-Chek before meals and at bedtime cover with Humalog sliding scale. Is started on Lantus 10 units subcutaneous at bedtime daily. 8. Other comorbidities could hypertension, CVA, hypothyroidism and dyslipidemia: Multiple comorbidities complicates the present care and expect difficult and delay recovery DVT prophylaxis: On Lovenox 40 mg subcut daily. Patient was advised to take Lasix 40 mg twice daily for 7 days and then taper down as per the fluid status and consultation with the PCP. Discharge medication reconciliation done. Discharge follow-up instructions completed. Discharge process discussed with the patient and all questions were answered to patient's satisfaction.. Total time spent, exact 35 minutes on discharge meds reconciliation, examination, review of imaging and blood test and discussion with the patient on follow-up instructions. 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 She complained of shortness of breath and anxiety but lungs seem clear. Patient is not tachycardic, tachypneic or hypoxic. Pulse ox 98% on room air. 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 - Physical Exam General: Alert, Oriented x3, Cooperative HEENT: Atraumatic, PERRLA, EOMI, Normocephalic Neck: Supple, No JVD, Negative Carotid Bruits Lungs: No rhonchi, No wheeze, No rales, Diminished Cardiovascular: Regular rate, Regular Rhythm, Normal S1, Normal S2, No murmurs Abdomen: Bowel Sounds Present, Soft, Non Tender, Non-Distended Extremities: Capillary Refill Less than 3 Seconds, Edema Skin: No rashes, No breakdown Musculoskeletal: No Tenderness to Palpation of Joints or Extremities, Arthritic Changes Lymphatic: No Cervical, Supraclavicular, or Inguinal Adenopathy Neurological: Cranial nerves II-XII grossly intact, Deep Tendon Reflexes 2+/4 and Symmetrical, Neuro grossly intact Psych/Mental Status: Normal Affect, Appropriate Vital Signs Temp Pulse Resp BP Pulse Ox 98.2 F 83 16 113/69 98 07/26/18 08:24 07/26/18 08:24 07/26/18 08:24 07/26/18 08:24 07/26/18 08:25 Oxygen Flow Rate (L/min) 1 Oxygen Delivery Method Room Air Weight: 154 lb 5.177 oz Body Mass Index (BMI) 25.7 Intake and Output for Last 24 Hours 07/24/18 07/25/18 07/26/18 23:59 23:59 23:59 Intake Total 520 / 520 1120 / 1120 120 / 120 Output Total 700 / 700 300 / 300 Balance -180 / -180 820 / 820 120 / 120 POC Glucose 07/26/18 07/25/18 07/25/18 06:50 21:52 16:37 POC Glucose 143 H 159 H 214 H 07/25/18 11:10 POC Glucose 253 H Discharge Activity: May Not Drive, May not drive while taking narcotic pain medications. Call your doctor if you observe: Fever of 101 or Higher, Inability to urinate, Shortness of breath, Fainting spells, Swelling in the ankles, Prolonged hiccoughing Home Medications: Medications to take at Discharge Insulin Lispro [Humalog KwikPen] 3 unit SQ TIDCM 12/20/17 Atorvastatin Calcium [Lipitor] 40 mg PO QHS 05/08/18 Aspirin [Aspirin EC] 81 mg PO DAILY 05/24/18 Clopidogrel Bisulfate [Clopidogrel] 75 mg PO DAILY 05/24/18 [place]-3 Fatty Acids [[place]-3] 2,000 mg PO BID 05/24/18 Ergocalciferol (Vitamin D2) [Vitamin D2] 50,000 unit PO WE 06/11/18 Sodium Chloride 0.65% [[place] Nasal [place]] 1 spray NASAL PRN PRN 06/11/18 Buspirone HCl 10 mg PO TID 07/02/18 Ipratropium/Albuterol Sulfate [Duoneb] 3 ml INHALATION Q6H PRN PRN 07/02/18 Loratadine 10 mg PO DAILY 07/02/18 amlodipine 5 mg tablet 5 mg PO DAILY #30 tab 07/11/18 isosorbide mononitrate ER 30 mg tablet,extended release 24 hr 30 mg PO DAILY #30 tab 07/11/18 Acetaminophen [Tylenol Tablet] 1,000 mg PO BID PRN PRN 07/24/18 Carvedilol 6.25 mg PO BID 07/24/18 Gabapentin [Neurontin] 100 mg PO TID PRN PRN 07/24/18 Insulin Glargine,Hum.rec.anlog [Basaglar Kwikpen U-100] 10 unit SQ QHS 07/24/18 Alprazolam [Xanax] 0.25 mg PO TID PRN #15 tablet 07/26/18 Furosemide 40 mg PO BID #30 tablet 07/26/18 Polyethylene Glycol 3350 [Miralax] 17 gm PO DAILY packet 07/26/18 Senna/Docusate Sodium [Senokot-S] 2 tablet PO BID PRN PRN #30 tablet 07/26/18 Following Prescrptions Were Given to Patient: Senna/Docusate Sodium [Senokot-S] 2 tablet PO BID PRN PRN #30 tablet PRN Reason: constipation Furosemide 40 mg PO BID #30 tablet Alprazolam [Xanax] 0.25 mg PO TID PRN #15 tablet PRN Reason: Anxiety Primary Care Physician: Evens Jimenez III, MD [Primary Care Provider] - Please follow up with your Primary Care Physician in: in 1-2 weeks Please Follow Up With: Charles Ceja MD When: in 2-4 weeks for CHF, Severe MR Medical Necessity - Tobacco Use Smoking Status: Former smoker Meaningful Use Info Meaningful Use Diagnoses (Choose all that apply): None applicable - CHF ALEJANDRA/ARB ordered at discharge?: Yes Documented LVEF (%): 45 Code Visit Inpatient E&M: 20762 Disch Hosp
[2018-07-26] MEDS: Clopidogrel Bisulfate 75 MG Tablet PO (10:59)
[2018-07-26] MEDS: traMADol 50 MG Tablet PO ×2 (11:03→17:14)
[2018-07-26] MEDS: ALPRAZolam 0.5 MG Tablet PO ×2 (11:03→17:14)
[2018-07-26] MEDS: Furosemide 40 MG Tablet PO (12:40)
--- NOTE | 2018-07-26 12:40 | CASEMGMT ---
RN JERRI NOTE: To room to talk with pt. Intro self and role to pt. Pt being discharged home today. Discussed CCN with patient and she states is very interested in their services and agreeable to referral. Pt given CCN Rac card. Call placed to Karel @ [facility] and message left with referral. Order for referral placed. Carmelo NGUYEN RN CM
[2018-07-26] MEDS: Insulin Lispro 100 UNIT/ML INSULN.PEN SQ (14:16)
[2018-07-26 14:26] LABS: Bedside Glucose 163 mg/dL (70-110)
--- NOTE | 2018-07-27 15:07 | CASEMGMT ---
SAM GUTHRIE Discharge F/U Phone Call LACE: 14 Strata: 4 Discharge date: 07/26/18 Call date: 07/27/18 Call time: [id number] Duration: 3 minutes Admission dx: CHF exacerbation Pt states has been doing 'fine' since discharge but does c/o some right ankle swelling at this time but states no injury/pain. This RN CM advised pt to call PCP for any worsening swelling/sob, voices understanding. Pt states may have to switch f/u time with Dr. Jimenez d/t family cannot take her at that time and this RN JERRI advised her to notify them of swelling when she calls, voices understanding. Pt states no suggestions for [facility] at this time and states 'everyone was so nice.' Pt voices no further questions/concerns/needs at this time. SStaten SAM CM
--- NOTE | 2018-08-02 09:32 | CCN.REFER ---
Patient/ originally agreed to CCN. After multiple phone calls - patient declining CCN to come to home.
== END 2018-07-26 17:20 | disposition home or self-care (01) | DRG 194 ==
LOC: ED 09:16 → PCU 11:24
PROVIDERS: Admitting Provider Internal Medicine; Emergency Provider Emergency Medicine; Family Provider Family Medicine; PCP Family Medicine; Visit Provider Internal Medicine
DX: I11.0 Hypertensive heart disease with heart failure (principal); I50.23 Acute on chronic systolic (congestive) heart failure; J96.01 Acute respiratory failure with hypoxia; I25.10 Atherosclerotic heart disease of native coronary artery without angina pectoris; J44.9 Chronic obstructive pulmonary disease, unspecified; E03.9 Hypothyroidism, unspecified; E78.5 Hyperlipidemia, unspecified; E11.65 Type 2 diabetes mellitus with hyperglycemia; I27.21 Secondary pulmonary arterial hypertension; I34.0 Nonrheumatic mitral (valve) insufficiency; I73.9 Peripheral vascular disease, unspecified; K59.00 Constipation, unspecified; Z79.4 Long term (current) use of insulin; Z79.899 Other long term (current) drug therapy; Z87.891 Personal history of nicotine dependence; Z95.5 Presence of coronary angioplasty implant and graft; Z86.73 Personal history of transient ischemic attack (TIA), and cerebral infarction without residual deficits
CPT/HCPCS: 36415; 71045; 71046; 74019; 80048; 80061; 82962; 83036; 83735; 83880; 84443; 84484; 85025; 93005; 94002; 94640; 97802; 99285; J7030; A4216; J1940

== ENCOUNTER → 2018-08-15 15:04 | Outpatient (CLI) | payer MEDICAID, SELFPAY ==
[2018-07-10 07:13] VITALS: BMI 26.2
[2018-08-15 14:29] VITALS: BMI 27.9
--- NOTE | 2018-08-15 15:05 | ECHOD_ITS ---
Reason For Study: MV Disorder Procedure This was a 2D Doppler, Color Flow transthoracic echocardiogram. Exam performed in department. Left Ventricle Normal LV size. Left ventricular systolic function is lower limits of normal. The estimated ejection fraction is 50 %. Stage 3 diastolic dysfunction. No regional wall motion abnormalities noted. Right Ventricle Normal RV size. Normal systolic function. Atria The left atrium is mildly enlarged. Normal right atrium. Mitral Valve Bileaflet diffuse mitral valve thickening. Moderate (2+) eccentric mitral valve insufficiency. Tricuspid Valve Normal tricuspid valve. Moderate (2+) tricuspid valve insufficiency. Pulmonary artery systolic pressure is 54 mmHg. Moderate pulmonary hypertension. Aortic Valve Trisinus/trileaflet aortic valve. Pulmonic Valve Normal pulmonic valve. Great Vessels Normal aortic root. The pulmonary artery is normal size. Normal inferior vena cava. Pericardium/Pleural No pericardial effusion. MMode/2D Measurements & Calculations LVIDd: 4.8 cm IVSd: 1.5 cm Ao root diam: 3.0 cm LVIDs: 3.7 cm LVPWd: 1.0 cm RVDd: 3.8 cm FS: 22.7 % LAV(MOD-bp): 75.0 ml LVAd ap4: 29.6 cm2 SV(MOD-sp4): 49.3 ml LAV(MOD-bp) Indexed: 46.8 ml/m2 EDV(MOD-sp4): 96.9 ml LAV(MOD-sp2): 70.3 ml EDV(sp4-el): 99.8 ml LAV(MOD-sp4): 73.9 ml LVAs ap4: 18.7 cm2 ESV(MOD-sp4): 47.6 ml ESV(sp4-el): 48.5 ml EF(MOD-sp4): 50.9 % EF(sp4-el): 51.4 % SV(sp4-el): 51.3 ml LA A4 area: 22.5 cm2 LA dimension(2D): 4.6 cm RA A4 area: 9.3 cm2 Doppler Measurements & Calculations MV E max singh: 125.0 cm/sec Lat Peak E' Singh: 7.3 cm/sec Med Peak E' Singh: 3.2 cm/sec MV A max singh: 66.4 cm/sec E/E' lat: 17.1 E/E' med: 39.5 MV E/A: 1.9 Ao V2 max: 132.1 cm/sec LV V1 max: 99.9 cm/sec PA V2 max: 89.5 cm/sec Ao max P.0 mmHg LV V1 max P.0 mmHg Ao V2 mean: 93.0 cm/sec Ao mean P.7 mmHg Ao V2 VTI: 27.1 cm TR max singh: 355.0 cm/sec TR max P.4 mmHg Interpretation Summary Normal LV size. Left ventricular systolic function is lower limits of normal. The estimated ejection fraction is 50 %. Stage 3 diastolic dysfunction. Moderate (2+) eccentric mitral valve insufficiency. Moderate (2+) tricuspid valve insufficiency. Pulmonary artery systolic pressure is 54 mmHg. Moderate pulmonary hypertension. Compared to the previous the pulmonary pressures are mildly improved. Ordering Physician: Charles Good Referring Physician: Evens Jimenez Performed By: Mara Yang, RDCS, RVT
== END ==
PROVIDERS: Family Provider Family Medicine; PCP Family Medicine; Referring Provider Internal Medicine Cardiovascular Disease; Visit Provider Internal Medicine Cardiovascular Disease
DX: I34.0 Nonrheumatic mitral (valve) insufficiency (principal); I25.10 Atherosclerotic heart disease of native coronary artery without angina pectoris; I27.21 Secondary pulmonary arterial hypertension; I50.9 Heart failure, unspecified; Z95.5 Presence of coronary angioplasty implant and graft
CPT/HCPCS: 93306

== ENCOUNTER 2019-06-29 07:10 | Emergency (ER) | payer MEDICAID, SELFPAY ==
[2018-08-17 14:26] VITALS: BMI 27.9
[2019-06-29] VITALS (7 sets, daily range): BP systolic 104–170; BP diastolic 78–107; PULSE 98–121; RESP 20–30; TEMP 35.9–36.8; O2SAT 86–98; BMI 33.8
--- NOTE | 2019-06-29 07:25 | EKG12_ITS ---
Test Reason : Blood Pressure : / mmHG Vent. Rate : 119 BPM Atrial Rate : 119 BPM P-R Int : 144 ms QRS Dur : 118 ms QT Int : 340 ms P-R-T Axes : 055 -55 109 degrees QTc Int : 478 ms Sinus tachycardia Left axis deviation Inferior infarct , age undetermined Anteroseptal infarct , age undetermined ST & T wave abnormality, consider lateral ischemia Abnormal ECG Confirmed by GENA GARCIA, JAMIE ([id number]), newspaper editor PRACHI MARIA ([id number]) on 07/02/2019 8:26:56 AM Referred By: Evens Jimenez Confirmed By:JAMIE AVERY MD
--- NOTE | 2019-06-29 07:25 | RAD_ITS ---
STUDY: X-RAY CHEST REASON FOR EXAM: Female, 63 years old. INCREASE SOB, COUGH TECHNIQUE: Single AP portable view of the chest. COMPARISON: 07/26/2018 FINDINGS: There is hyperinflation of the lungs consistent with chronic obstructive lung disease (COPD). Lungs are clear. There is no demonstrated pleural abnormality. There is mild cardiac enlargement. Normal mediastinum and tom. Normal visualized pulmonary arteries. Normal visualized aortic arch and descending thoracic aorta. Normal visualized thoracic spine. Normal visualized ribs, clavicles, and shoulders. There is no demonstrated abnormality of the visualized soft tissue structures of the upper abdomen. RAD/Chest 1 View (Portable) IMPRESSION: COPD. Lungs are clear. Electronically Signed: Neri Villafana DO at 8:41 EST Tel , Service support ,
[2019-06-29] MEDS: Ondansetron 4 MG/2 ML Vial IV (07:30)
--- NOTE | 2019-06-29 07:30 | ED.VIS.DYS ---
History of Present Illness Chief Complaint: Shortness of Breath Informant: Patient, EMS Onset: Hours - several Activity at onset: Sleep Timing: Continuous Quality: - - can't breathe Current Severity: Moderate Maximum Severity: Severe Relieved by: Albuterol - DuoNeb given by EMS in route, but inhaler did not help prior to EMS arrival Associated Symptoms: Clear sputum, Cough Chest Pain: Pressure - Gone now Narrative: Patient states she has COPD, no home oxygen or nebulizer machine, her cough is been a little worse lately, but she is chronically productive of sputum and she has been producing no more lately and there is been no change in it. She denies any edema in her legs. She has cardiac stents. She states that she is supposed to have a cardiac surgery but cannot elaborate. When I ask if it is supposed to be related to a heart valve, she states that she has no idea and that I should ask her vice president of sales. She was having chest pressure prior to EMS arrival, she states that is gone now. Per EMS, her pulse ox was around 40% when they first evaluated her and she was in respiratory distress. - Past Medical History (1) Chronic combined systolic and diastolic CHF (congestive heart failure) Status: Chronic (2) Atherosclerosis of coronary artery of eek heart without angina pectoris Status: Chronic Comment: PCI-JAZIEL-LAD w/ 2.0 x 30 mm and 2.5 x 34 mm Resolute Thornton and PCI-JAZIEL-Mid LCx w/ Resolute Issa 2.0 x 30 mm and 2.0 x 22 mm Stent 05/18/2018 (3) Bilateral carotid artery stenosis Status: Chronic Comment: RCEA and L carotid 70-80% stenosis (4) CVA (cerebral vascular accident) Status: Chronic (5) Essential (primary) hypertension Status: Chronic (6) Hyperlipidemia Status: Chronic (7) Nicotine dependence Status: Chronic (8) Non-rheumatic tricuspid valve insufficiency Status: Chronic (9) Nonrheumatic mitral (valve) insufficiency Status: Chronic (10) Secondary pulmonary arterial hypertension Status: Chronic (11) History of coronary artery stent placement Status: Resolved Comment: PCI-JAZIEL-LAD w/ 2.0 x 30 mm and 2.5 x 34 mm Resolute Thornton and PCI-JAZIEL-Mid LCx w/ Resolute Thornton 2.0 x 30 mm and 2.0 x 22 mm Stent 05/18/2018 Past Medical History - Allergies and Home Meds Allergies/Adverse Reactions: Allergies Penicillins Allergy (Severe, Verified 06/29/19 07:17) Swelling tolerated keflex in past with no issue Primary Care Physician: Evens Jimenez III, MD [Primary Care Provider] - Surgical History: - - Patient has undergone right carotid endarterectomy by Dr. Siva Jimenez approximately 7 years ago. She is a Ab0. 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 Family History: Reports: Heart Disease, - - Patient's father in his 40s from myocardial infarction. Patient's mother in her 40s from a cerebrovascular accident. Paternal Family History: Family History (Last Reviewed 03/19/19 @ 12:44 by Karin Clayton) Mother No problems noted. Family History: Reports: Heart Disease - There was heart disease in both maternal and paternal side. Review of Systems General: Reports: Malaise. Denies: Chills, Fever, Sweats Eyes: Denies: Visual changes - bilaterally, Diplopia ENT: Denies: Rhinorrhea, Sore throat Cardiovascular: Reports: Chest pain. Denies: Palpitations Respiratory: Reports: Dyspnea, Cough, Sputum Gastrointestinal: Denies: Abdominal pain, Nausea, Vomiting, Diarrhea, Melena, Hematochezia Genitourinary: Denies: Dysuria, Hematuria, Frequency Musculoskeletal: Denies: Back pain, Swelling, Extremity Pain Skin: Denies: Rash, Wounds Neurological: Denies: Headache, Weakness, Numbness Physical Exam Vital Signs/Narrative: Vital Signs Temp Pulse Resp BP Pulse Ox 06/29/19 07:21 96.9 F L 121 H 30 H 139/107 H 86 06/29/19 07:12 96.9 F L 121 H 30 H 170/107 H 86 Inital Vital Signs reviewed: Yes General: Well nourished, Well developed, No Acute Distress - ill-appearing, no resp distress Head: Normocephalic, Atraumatic Eyes: Perrl, EOMI ENT: Moist mucous membranes, No rhinorrhea Neck: Supple, Nontender, No JVD Cardiovascular: Regular rate, Regular rhythm, Tachycardia, - - diff to assess for murmur due to tachycardia and diminished breath sounds throughout Respiratory: No distress, Chest nontender, Rales - throughout, worse in bases, Wheezing - mild expiratory Abdomen: Soft, Nontender, Nondistended, Normal bowel sounds Back: Nontender, Normal Inspection Extremities: Nontender, No edema. Negative for: Calf Tenderness Skin: Normal color, No rash Neurological: Alert, Oriented x3, Cranial nerves II-XII grossly intact, Normal Strength, Normal Sensation Psychological: Normal affect, - - flat. paucity of speech in response to questions. seems frustrated. Diagnostic/Tx/Re-eval Impressions Chest X-Ray 06/29/19 07:25 IMPRESSION: COPD. Lungs are clear. Electronically Signed: Neri Villafana DO at 8:41 EST Tel , Service support , 06/29/19 07:25 Chest 1 View (Portable) [RAD] Stat 06/29/19 07:48 Mucosa - Nose Influenza Types A,B Direct FA (DOROTEO) - Final Laboratory Results 06/29/19 06/29/19 06/29/19 08:05 08:05 08:05 WBC 20.5 H RBC 5.24 Hgb 15.5 H Hct 46.7 MCV 89.1 MCH 29.6 MCHC 33.2 RDW Std Deviation 43.3 RDW Coeff of Jade 13.3 Plt Count 389 MPV 10.3 Immature Gran % (Auto) 0.700 Neut % (Auto) 81.2 H Lymph % (Auto) 11.6 L [place] % (Auto) 4.5 Eos % (Auto) 1.5 Baso % (Auto) 0.5 Absolute Neuts (auto) 16.6 H Absolute Lymphs (auto) 2.38 Nucleated RBC % 0 PT 12.3 INR 0.9 APTT 26.8 Specimen Type Sample Site VBG pH VBG pO2 VBG O2 Sat (Calc) VBG O2 Content VBG Base Excess POC Mix VBG pCO2 Pt Tmp O2 Delivery Device Liter Flow Blood Gas Notified Whom Blood Gas Notified Time Sodium 132 L Potassium 4.2 Chloride 100 Carbon Dioxide 22.0 Anion Gap 10 BUN 33 H Creatinine 2.27 H Estim Creat Clear Calc 18.22 Est GFR (MDRD) Af Amer 28 L Est GFR (MDRD) Non-Af 23 L BUN/Creatinine Ratio 14.5 Glucose 531 H* Lactic Acid Calcium 10.3 H Total Bilirubin 0.30 AST 43 H ALT 28 Alkaline Phosphatase 170 H Troponin I 4.380 H* Total Protein 8.5 H Albumin 3.6 Globulin 4.9 H Albumin/Globulin Ratio 0.7 L 06/29/19 06/29/19 08:05 08:51 WBC RBC Hgb Hct MCV MCH MCHC RDW Std Deviation RDW Coeff of Jade Plt Count MPV Immature Gran % (Auto) Neut % (Auto) Lymph % (Auto) [place] % (Auto) Eos % (Auto) Baso % (Auto) Absolute Neuts (auto) Absolute Lymphs (auto) Nucleated RBC % PT INR APTT Specimen Type TIM Sample Site OTHER VBG pH 7.38 VBG pO2 50 H VBG O2 Sat (Calc) 85 H VBG O2 Content 21 L VBG Base Excess -5 L POC Mix VBG pCO2 Pt Tmp 34.0 L O2 Delivery Device NRB Mask Liter Flow 15.0 Blood Gas Notified Whom ED MD Blood Gas Notified Time 840 Sodium Potassium Chloride Carbon Dioxide Anion Gap BUN Creatinine Estim Creat Clear Calc Est GFR (MDRD) Af Amer Est GFR (MDRD) Non-Af BUN/Creatinine Ratio Glucose Lactic Acid 3.8 H* Calcium Total Bilirubin AST ALT Alkaline Phosphatase Troponin I Total Protein Albumin Globulin Albumin/Globulin Ratio - Rhythm Strip Rhythm Strip: Sinus Tach Rate: 120 Ectopy: None - EKG Initial EKG Interpretation: No Acute Injury Pattern, Sinus Tachycardia, LAFB, S-T Depression - 1mm V5-6 only, - - old anterior and inferior infarcts. LV strain. Prior: Changed - new inferior infarct changes Treatment - Dyspnea: Oxygen, Albuterol, Atrovent, - - zofran; pt started vomiting just after initial evaluation - Medical Decision Making Patient in no respiratory distress and satting at 90% on oxygen, doing okay after a nebulizer treatment. There was some delay because of her vomiting and being a very difficult stick for blood. I reviewed the portable chest x-ray once the images were available, and in my opinion it looks like there is some cephalization, hyperexpansion, but I had a difficult time evaluating whether this was pneumonia or CHF. Therefore I waited for radiology interpretation before I ordered Lasix versus fluids, and other treatments since the patient was clinically and hemodynamically stable. The EKG shows a similar left anterior fascicular block, what appear to be a left strain pattern, nothing acute/STEMI, but signs of an inferior infarct are new compared with her last EKG 1 year ago. Blood work and radiology result returned together relatively, there is nothing acute read by radiology, but her troponin is high, blood sugar elevated, creatinine is up, and her lactic acid is elevated. She also has a leukocytosis of 20. My suspicion is that she is in congestive heart failure and this is not infectious in etiology. Aspirin and Lovenox are ordered in addition to some insulin. She is currently having no more chest discomfort, but started vomiting again after given aspirin so treated with Phenergan. I reviewed her most recent cardiology note from June 1 year ago in 2018, and discussed with the vice president of sales on-call for Dr. Good, Dr. Ba. It appears that she has very significant coronary disease, she has multiple occlusions and 90% lesions in addition to patent stent x2 according to a heart cath that was done June 2018. Her ejection fraction is 50% on the echocardiogram, and she has combined systolic and diastolic failure, pulmonary hypertension, and 2-3+ mitral regurgitation. He referred her to [facility] as an outpatient to be evaluated for a mitral valve clip procedure. He agrees that in her current condition, she should probably be transferred there for further evaluation because of combined possible acute coronary and valve issues and the possibility for needing a procedure that cannot be done here. I discussed with the transfer center at [facility], they reviewed her outpatient visit in September 2018, at that time it was felt she was not a surgical candidate but she was referred to the congestive heart failure clinic there for additional evaluation with regards to procedures that could help her. She never followed up. They accept the patient to the emergency department, she is clinically stable now on a nonrebreather 94% and will be transferred. ED Disposition - Plan for ED Patient: Disposition: [facility] Diagnosis: NSTEMI (non-ST elevated myocardial infarction), Acute on chronic combined systolic (congestive) and diastolic (congestive) heart failure, Hypoxemia, YULISA (acute kidney injury), Non-rheumatic tricuspid valve insufficiency Referrals: Evens Jimenez III, MD [Primary Care Provider] -
--- NOTE | 2019-06-29 07:51 | ED.RN ---
Attempting to draw blood. IV won't draw. This RN attempted 2nd IV, no success. HEAD SETTER attempting straight stick for labs.
--- NOTE | 2019-06-29 08:15 | ED.RN ---
Dr. Mark moctezuma with pulse ox of 90%.
[2019-06-29 08:25] LABS: Absolute Lymphocyte Count 2.38 X10^3/uL (0.83-4.51); Absolute Neutrophil Count 16.6 X10^3/uL (2.0-7.7); Basophil# 0.11 X10^3/uL; Basophil% 0.5 % (0-1); Eosinophils% 1.5 % (0-5); Hematocrit 46.7 % (37-47); Hemoglobin 15.5 g/dL (12.0-15.0); Lymphocyte # 2.38 X10^3/ul (4.0); Lymphocyte % 11.6 % (19-41); Mean Corp Hgb Conc 33.2 g/dL (32-36); Mean Corpuscular Hgb 29.6 pg (27.0-32.0); Mean Corpuscular Volume 89.1 fL (81-99); Mean Platelet Vol. 10.3 fl (6.2-12.0); Monocyte# 0.93 X10^3/uL; Monocyte% 4.5 % (0-10); NRBC Flagged by Analyzer 0 % (0-5); Neutrophil # 16.64 X10^3/uL (2.7-7.7); Neutrophil % 81.2 % (47-70); Platelet Count 389 K/mm3 (150-450); RBC Distribution Width CV 13.3 % (11.6-14.6); RBC Distribution Width SD 43.3 fl (35.1-43.9); Red Blood Count 5.24 M/mm3 (4.2-5.4); White Blood Count 20.5 K/mm3 (4.4-11.0)
[2019-06-29] MEDS: Albuterol 2.5 MG/3 ML VIAL.NEB. INHALATION (08:30)
[2019-06-29 08:46] LABS: International Normalized Ratio 0.9; Prothrombin Time (Protime)PT. 12.3 SECONDS (11.7-14.9)
[2019-06-29 08:47] LABS: Partial Thromboplast Time 26.8 Seconds (24.1-36.2)
[2019-06-29 08:53] LABS: ALB/GLOB Ratio 0.7 RATIO (0.9-2.4); AST(SGOT) 43 U/L (15-37); Alanine Aminotransfer ALT/SGPT 28 U/L (13-56); Albumin, Serum 3.6 g/dL (3.2-5.0); Alkaline Phosphatase 170 U/L (45-117); Anion Gap 10 (5-15); BUN 33 mg/dL (7-18); BUN/Creat Ratio 14.5 RATIO (10-20); Calcium,Total 10.3 mg/dL (8.5-10.1); Chloride 100 mmol/L (98-107); Creatinine, Serum 2.27 mg/dL (0.55-1.02); EST Glomerular Filtration Rate 23 mL/min (>60); Est Glom Filt Rate - Afr Amer 28 mL/min (>60); Estimated Creatinine Clearance 18.22 ml/min; Globulin 4.9 g/dL (2.2-4.2); Glucose 531 mg/dL (74-106); Lactic Acid 3.8 mmol/L (0.4-1.9); Potassium 4.2 mmol/L (3.5-5.1); Protein, Total 8.5 g/dL (6.4-8.2); Sodium Level 132 mmol/L (136-145)
--- NOTE | 2019-06-29 08:53 | ED.RN ---
glucose 531 trop 4.38 and lactic 3.[address] from the lab. dr castillo aware
[2019-06-29 08:56] LABS: Blood Gas Specimen Type VEN; O2 Delivery Device NRB Mask; SITE OTHER; Time Given 840; VBG BASE EXCESS -5 mmol/L (-1.0-3.5); VBG Bicarbonate 20 mmol/L (22-26); VBG Oxygen Content 21 mmol/L (23-33); VBG PO2 50 mmHg (25-40); VBG SO2 85 % (50-70); VBG pH 7.38 (7.32-7.42)
[2019-06-29] MEDS: Aspirin 81 MG TAB.CHEW 324 MG PO (09:19)
[2019-06-29] MEDS: Furosemide 40 MG/4 ML Vial IV (09:19)
[2019-06-29] MEDS: Insulin Lispro 100 UNIT/ML INSULN.PEN 16 UNIT SC (09:19)
[2019-06-29] MEDS: Enoxaparin 80 MG/0.8 ML Syringe SC (09:20)
[2019-06-29] MEDS: proMETHazine 25 MG/ML Syringe 6.25 MG IV (09:31)
[2019-06-29 09:44] LABS: Bacteria 0 SEEN /hpf (None Seen); Mucous, Urine 0 SEEN /hpf (<or=2+); Squamous Epithelial Cells - UA 0 SEEN /hpf (5-10); White Blood Cells 0 SEEN /hpf (0-5)
[2019-06-29 09:59] LABS: Color, Urine Yellow (Yellow); Nitrite-Dipstick Negative (Negative); Urine Clarity Clear (Clear)
[2019-06-29 10:02] LABS: Glucose, Dipstick 1000 mg/dl (Normal); Ketone-Dipstick Negative (Negative); Leukocyte Esterase-Dipstick Negative /ul (Negative); Occult Blood-Urine 25 /ul (Negative); Protein-Dipstick 100 mg/dl (Negative); Specific Gravity, Urine 1.015 (1.002-1.030); Urine Bilirubin Dipstick Negative (Negative); Urine Urobilinogen Normal (Normal)
[2019-06-29 10:04] LABS: BNP,B-Type NATRIURETIC PEPTIDE 950.2 pg/mL (0-100)
[2019-06-29 10:09] LABS: Red Blood Cells-Urine 0-5 SEEN /hpf (0-5)
--- NOTE | 2019-06-29 11:33 | ED.RN ---
pt wanted me to update s/o, sunil. Sunil was updated by this RN per pts wishes.
[2019-06-29 12:16] LABS: Reflex Lactate? Y
== END 2019-06-29 11:34 | disposition short-term general hospital (02) ==
PROVIDERS: Emergency Provider Emergency Medicine; PCP Family Medicine; Referring Provider Family Medicine
DX: I21.4 Non-ST elevation (NSTEMI) myocardial infarction (principal); I11.0 Hypertensive heart disease with heart failure; I50.43 Acute on chronic combined systolic (congestive) and diastolic (congestive) heart failure; I36.1 Nonrheumatic tricuspid (valve) insufficiency; N17.9 Acute kidney failure, unspecified; R09.02 Hypoxemia; Z87.891 Personal history of nicotine dependence; I25.10 Atherosclerotic heart disease of native coronary artery without angina pectoris; I65.23 Occlusion and stenosis of bilateral carotid arteries; I34.0 Nonrheumatic mitral (valve) insufficiency; I27.21 Secondary pulmonary arterial hypertension; E78.5 Hyperlipidemia, unspecified; J44.9 Chronic obstructive pulmonary disease, unspecified; Z95.5 Presence of coronary angioplasty implant and graft; Z86.73 Personal history of transient ischemic attack (TIA), and cerebral infarction without residual deficits
CPT/HCPCS: 36415; 51702; 71045; 80053; 81001; 82803; 83605; 83880; 84484; 85025; 85610; 85730; 87040; 87086; 87804; 93005; 96372; 96374; 96375; 99285; A4216; J1940; J2405

== ENCOUNTER 2019-07-12 03:01 | Inpatient (IN) | payer MEDICAID, SELFPAY ==
[2019-06-29 07:12] VITALS: BMI 33.8
[2019-07-12] VITALS (21 sets, daily range): BP systolic 102–146; BP diastolic 63–100; PULSE 94–127; RESP 16–44; TEMP 36.2–37; O2SAT 89–99; BMI 36.4; BMI 34.2
--- NOTE | 2019-07-12 03:03 | ED.RN ---
RN CALLED FOR EKG, PULLED OLD EKGS FOR
--- NOTE | 2019-07-12 03:05 | EKG12_ITS ---
Test Reason : CHF Blood Pressure : / mmHG Vent. Rate : 109 BPM Atrial Rate : 109 BPM P-R Int : 136 ms QRS Dur : 092 ms QT Int : 358 ms P-R-T Axes : 070 002 150 degrees QTc Int : 482 ms Sinus tachycardia Low voltage QRS Septal infarct , age undetermined ST & T wave abnormality, consider anterolateral ischemia Abnormal ECG When compared with ECG of 12-JUL-2019 03:05, MANUAL COMPARISON REQUIRED, DATA IS UNCONFIRMED Confirmed by NILSON HILL ([id number]), graphic editor MARIJA ELKINS ([id number]) on 07/12/2019 1:19:50 PM Referred By: CHARLES Confirmed By:NILSON HILL
[2019-07-12] MEDS: Ipratropium/Albuterol Sulfate 3 ML AMPUL.NEB INHALATION ×4 (03:10→19:20)
--- NOTE | 2019-07-12 03:12 | RAD_ITS ---
HISTORY: SOB ADDITIONAL HISTORY: None provided. TECHNIQUE: Frontal chest radiograph. Number of images including paperwork: 1 COMPARISON: 06/29/2019 FINDINGS: LUNGS AND PLEURA: Interstitial septal thickening and groundglass opacities. Blunting of the costophrenic angle. CARDIAC SILHOUETTE: Stably enlarged. Coronary stents. MEDIASTINUM AND LELO: Stable. UPPER ABDOMEN: Unremarkable. SKELETON AND SOFT TISSUES: No acute findings. Degenerative changes. OTHER DEVICES AND HARDWARE: None. RAD/Chest 1 View (Portable) IMPRESSION: Cardiomegaly with evidence of congestive heart failure. at 0338 Reported and signed by: Priscila Brower MD Electronically Signed: Priscila Brower MD at 3:38 EST Tel , Service support ,
--- NOTE | 2019-07-12 03:21 | ED.VIS.GEN ---
History of Present Illness Chief Complaint: Shortness of Breath Informant: Patient Onset: Today Context: Sudden Onset Timing: Continuous Current Severity: Moderate Maximum Severity: Severe Narrative: The patient is a 63-year-old female with multiple comorbidities including coronary artery disease status post multiple PCI's, congestive heart failure, hypertension, COPD who continues to smoke but is not on home oxygen, and prior stroke that presents to the emergency department with rather sudden onset shortness of breath. The patient was recently hospitalized at [facility] at the beginning of this month. She was transferred due to dynamic EKG changes, known history of valvular disease, and difficulty with prior heart catheterization. The patient was in the hospital for a total of 12 days and was just discharged on the . The patient had undergone heart catheterization was found to have in-stent stenosis of her proximal LAD and in-stent stenosis in the ostium branch of the diagonal. She underwent angioplasty of these areas. The patient was diuresed and was eventually discharged home. She states she woke tonight with rather sudden onset dyspnea. She felt like she cannot catch her breath. She has had no chest pain. She states she is been compliant with her medications. On squad arrival, her pulse ox was in the upper 70s to low 80s. Prior similar symptoms: Yes Recent Illness/Hospitalization: Yes Past Medical History - Allergies and Home Meds Allergies/Adverse Reactions: Allergies Penicillins Allergy (Severe, Verified 07/12/19 03:06) Swelling tolerated keflex in past with no issue Primary Care Physician: Evens Jimenez III, MD [Primary Care Provider] - Prior records reviewed: Yes Past Medical History: - - Coronary vascular disease status post stenting, COPD, prior stroke, heart failure Surgical History: - - Patient has undergone right carotid endarterectomy by Dr. Siva Jimenez approximately 7 years ago. She is a Ab0. 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 Family History: Reports: Heart Disease, - - Patient's father in his 40s from myocardial infarction. Patient's mother in her 40s from a cerebrovascular accident. Paternal Family History: Family History (Last Reviewed 03/19/19 @ 12:44 by Karin Clayton) Mother No problems noted. Family History: Reports: Heart Disease - There was heart disease in both maternal and paternal side. Review of Systems General: Denies: Chills, Fever, Sweats Eyes: Denies: Visual changes - bilaterally, Diplopia ENT: Denies: Rhinorrhea, Sore throat Cardiovascular: Denies: Chest pain, Palpitations Respiratory: Reports: Dyspnea, Cough, Dyspnea on exertion Gastrointestinal: Denies: Abdominal pain, Nausea, Vomiting, Diarrhea, Melena, Hematochezia Genitourinary: Denies: Dysuria, Hematuria, Frequency Musculoskeletal: Denies: Back pain, Extremity Pain Skin: Denies: Rash, Wounds Neurological: Denies: Headache, Weakness, Numbness Physical Exam Vital Signs/Narrative: Vital Signs Temp Pulse Resp BP Pulse Ox 07/12/19 03:16 120 H 20 H 07/12/19 03:07 125 H 146/100 H 07/12/19 03:01 97.1 F L 127 H 44 H 89 Inital Vital Signs reviewed: Yes General: Well nourished, Well developed, No Acute Distress Head: Normocephalic, Atraumatic Eyes: Perrl, EOMI ENT: Moist mucous membranes, No rhinorrhea Neck: Supple, Nontender Cardiovascular: Regular rate, Regular rhythm, No murmurs Respiratory: Chest nontender, Rales, Diminished, Retractions Abdomen: Soft, Nontender, Nondistended, Normal bowel sounds Back: Nontender, Normal Inspection Extremities: Nontender, No edema Skin: Normal color, No rash Neurological: Alert, Oriented x3, Cranial nerves II-XII grossly intact, Normal Strength, Normal Sensation Psychological: Normal affect, Normal Mood Diagnostic/Tx/Re-eval Clinical Impression(s) from Imaging Studies Chest X-Ray 07/12/19 03:12 IMPRESSION: Cardiomegaly with evidence of congestive heart failure. at 0338 Reported and signed by: Priscial Brower MD Electronically Signed: Priscila Brower MD at 3:38 EST Tel , Service support , Abnormal Lab Results 07/12/19 07/12/19 07/12/19 03:25 03:25 03:25 WBC 15.8 H RBC 3.34 L Hgb 9.7 L Hct 31.3 L MCV 93.7 MCH 29.0 MCHC 31.0 L RDW Std Deviation 48.8 H RDW Coeff of Jade 14.5 Plt Count 577 H MPV 9.5 Immature Gran % (Auto) 0.700 Neut % (Auto) 76.9 H Lymph % (Auto) 12.4 L [place] % (Auto) 6.8 Eos % (Auto) 2.7 Baso % (Auto) 0.5 Absolute Neuts (auto) 12.2 H Absolute Lymphs (auto) 1.96 Nucleated RBC % 0 Sodium 135 L Potassium 4.0 Chloride 100 Carbon Dioxide 26.0 Anion Gap 9 BUN 29 H Creatinine 2.25 H Estim Creat Clear Calc 33.05 Est GFR (MDRD) Af Amer 28 L Est GFR (MDRD) Non-Af 23 L BUN/Creatinine Ratio 12.9 Glucose 409 H Calcium 8.7 Total Bilirubin 0.70 AST 29 ALT 24 Alkaline Phosphatase 124 H Troponin I 0.082 H B-Natriuretic Peptide 2732.3 H Total Protein 7.7 Albumin 2.9 L Globulin 4.8 H Albumin/Globulin Ratio 0.6 L - Rhythm Strip Rhythm Strip: Sinus Tach Rate: 100 Ectopy: None - EKG Initial EKG Interpretation: Sinus Tachycardia, S-T Depression, Non-Specific ST Changes Prior: Unchanged - Medical Decision Making The patient presents with rather acute onset shortness of breath. EKG was obtained on patient arrival. She does have some nonspecific lateral ST depression unchanged from EKG at the beginning of the month. She was not complaining of chest pain. The patient is placed on supplemental oxygen and had significant improvement of her symptoms. Her chest x-ray does show evidence of congestive heart failure. Screening labs were obtained. The patient was given IV Lasix. She denies fever. She states she is had a scant cough. When she was hospitalized, she was treated with a seven-day course of antibiotics given her history of COPD. My suspicion is that this is more likely CHF. She does have a leukocytosis, but it is improved from her hospitalization. Patient's cardiac enzymes were in the indeterminate range, but have definitely trended down since her hospitalization. Her BNP is markedly elevated. She does have renal insufficiency, but this does appear to be more chronic. Patient was given IV Lasix. She is resting much more comfortably on supplemental oxygen. Given her decompensated heart failure and dyspnea, I do feel that she would benefit from admission for diuresis. The patient was discussed with the hospitalist. Impression 1. Acute decompensated heart failure with hypoxia - Critical Care Time Critical care time (excluding procedures): 30-74 minutes, Discussing w/Patient &/or Family/Player Piano Technician, Discussing w/Consultants, Performing Direct Patient Care at Bedside ED Disposition - Plan for ED Patient: Referrals: Evens Jimenez III, MD [Primary Care Provider] -
[2019-07-12] MEDS: MethylPREDNISolone 125 MG/2 ML Vial IV (03:24)
[2019-07-12 03:29] LABS: Absolute Lymphocyte Count 1.96 X10^3/uL (0.83-4.51); Absolute Neutrophil Count 12.2 X10^3/uL (2.0-7.7); Basophil# 0.08 X10^3/uL; Basophil% 0.5 % (0-1); Eosinophil# 0.42 X10^3/uL; Eosinophils% 2.7 % (0-5); Hematocrit 31.3 % (37-47); Hemoglobin 9.7 g/dL (12.0-15.0); Lymphocyte # 1.96 X10^3/ul (4.0); Lymphocyte % 12.4 % (19-41); Mean Corpuscular Volume 93.7 fL (81-99); Mean Platelet Vol. 9.5 fl (6.2-12.0); Monocyte# 1.07 X10^3/uL; Monocyte% 6.8 % (0-10); NRBC Flagged by Analyzer 0 % (0-5); Neutrophil # 12.19 X10^3/uL (2.7-7.7); Neutrophil % 76.9 % (47-70); Platelet Count 577 K/mm3 (150-450); RBC Distribution Width CV 14.5 % (11.6-14.6); RBC Distribution Width SD 48.8 fl (35.1-43.9); Red Blood Count 3.34 M/mm3 (4.2-5.4); White Blood Count 15.8 K/mm3 (4.4-11.0)
[2019-07-12] MEDS: Albuterol 2.5 MG/3 ML VIAL.NEB. INHALATION ×4 (03:47→16:49)
[2019-07-12 03:54] LABS: BNP,B-Type NATRIURETIC PEPTIDE 2732.3 pg/mL (0-100)
[2019-07-12] MEDS: Furosemide 40 MG/4 ML Vial IV ×3 (04:01→20:46)
[2019-07-12 04:34] LABS: ALB/GLOB Ratio 0.6 RATIO (0.9-2.4); AST(SGOT) 29 U/L (15-37); Alanine Aminotransfer ALT/SGPT 24 U/L (13-56); Albumin, Serum 2.9 g/dL (3.2-5.0); Alkaline Phosphatase 124 U/L (45-117); Anion Gap 9 (5-15); BUN 29 mg/dL (7-18); BUN/Creat Ratio 12.9 RATIO (10-20); Calcium,Total 8.7 mg/dL (8.5-10.1); Chloride 100 mmol/L (98-107); Creatinine, Serum 2.25 mg/dL (0.55-1.02); EST Glomerular Filtration Rate 23 mL/min (>60); Est Glom Filt Rate - Afr Amer 28 mL/min (>60); Estimated Creatinine Clearance 33.05 ml/min; Globulin 4.8 g/dL (2.2-4.2); Glucose 409 mg/dL (74-106); Protein, Total 7.7 g/dL (6.4-8.2); Sodium Level 135 mmol/L (136-145)
--- NOTE | 2019-07-12 04:39 | HP.PCM_ITS ---
Problem List (1) Acute respiratory failure with hypoxia Status: Acute (2) COPD exacerbation Status: Acute (3) CHF exacerbation Status: Acute Qualifiers: Heart failure type: combined systolic and diastolic Qualified Code(s): I50.43 - Acute on chronic combined systolic (congestive) and diastolic (congestive) heart failure (4) Former tobacco use Status: Chronic (5) Bilateral carotid artery stenosis Status: Chronic Comment: RCEA and L carotid 70-80% stenosis (6) Atherosclerosis of coronary artery of [place] heart without angina pectoris Status: Chronic Qualifiers: Coronary Disease-Associated Artery/Lesion type: unspecified vessel or lesion type Qualified Code(s): I25.10 - Atherosclerotic heart disease of [place] coronary artery without angina pectoris Comment: PCI-JAZIEL-LAD w/ 2.0 x 30 mm and 2.5 x 34 mm Resolute Issa and PCI-JAZIEL-Mid LCx w/ Resolute [place] 2.0 x 30 mm and 2.0 x 22 mm Stent 05/18/2018 (7) History of coronary artery stent placement Status: Resolved Comment: PCI-JAZIEL-LAD w/ 2.0 x 30 mm and 2.5 x 34 mm Resolute [place] and PCI-JAZIEL-Mid LCx w/ Resolute [place] 2.0 x 30 mm and 2.0 x 22 mm Stent 05/18/2018 (8) CVA (cerebral vascular accident) Status: Chronic Qualifiers: CVA mechanism: unspecified Qualified Code(s): I63.9 - Cerebral infarction, unspecified (9) Essential (primary) hypertension Status: Chronic (10) Hyperlipidemia Status: Chronic Qualifiers: Hyperlipidemia type: unspecified Qualified Code(s): E78.5 - Hyperlipidemia, unspecified History of Present Illness Date of Admission: 07/12/19 Chief Complaint: Dyspnea The patient is a 63 y/o F w/ PMHx: Former Tobacco use, CAD s/p PCI LAD and mid LCx, Chronic combined Systolic/Diastolic CHF, HTN, HLD, Carotid disease s/p R CEA, L 70-80% stenosis, HTN, HLD, Asthma, Anxiety and Depression, Obesity, Chronic back pain, COPD, Hx CVA, Diabetes mellitus type II who presents to the [facility] ED on 07/12/19 with history of recent ED evaluation ~ 2 weeks prior with dyspnea, chest pain with transfer to [facility] at that time with NSTEMI (trop significantly elevated) with balloon angioplasty to in-stent stenosis proximal LAD and ostium of the diagonal complicated by undifferentiated shock after the catheterization with unremarkable cultures, eventually diuresis with discharge 07/10/19 with severe onset dyspnea at ~ 3 am, felt like she could not breath, noted to be 82% on RA with wheezing and patient admitted moderately productive ongoing cough although recently treated with a prolonged course of antibiotic therapy for undifferentiated shock at [facility]. Patient does have a prior history of flash pulmonary edema. Work-up in the ED included T 97.1, heart rate initially 127, respiratory rate initially 44, initially 89% on room air with improvement to heart rate 102, BP 123/64, respiratory rate 21, 96% on nasal cannula, CBC with WBC 15.8, hemoglobin 9.7, platelet 577 with left shift, CMP with sodium 135, BUN/creatinine 29/2.25, glucose 409, alk phos 124, BNP 2732.3, troponin 0.082, chest x-ray with cardiomegaly with evidence of congestion, EKG with sinus tachycardia with ST depressions and nonspecific ST changes unchanged from prior. In the ED patient ministered Solu-Medrol 125 mg IV x1, Lasix 40 mg IV x1 as well as DuoNeb and albuterol therapy. Past Medical History Past Medical History (Chronic Problems): Chronic Problems (Last Reviewed 03/19/19 @ 12:44 by Karin Clayton) Chronic combined systolic and diastolic CHF (congestive heart failure) (Chronic) Former tobacco use (Chronic) Bilateral carotid artery stenosis (Chronic) RCEA and L carotid 70-80% stenosis Atherosclerosis of coronary artery of [place] heart without angina pectoris (Chronic) PCI-JAZIEL-LAD w/ 2.0 x 30 mm and 2.5 x 34 mm Resolute [place] and PCI-JAZIEL-Mid LCx w/ Resolute [place] 2.0 x 30 mm and 2.0 x 22 mm Stent 05/18/2018 Acute on chronic combined systolic (congestive) and diastolic (congestive) heart failure (Chronic) Non-rheumatic tricuspid valve insufficiency (Chronic) Secondary pulmonary arterial hypertension (Chronic) Nonrheumatic mitral (valve) insufficiency (Chronic) CVA (cerebral vascular accident) (Chronic) Essential (primary) hypertension (Chronic) Hyperlipidemia (Chronic) Nicotine dependence (Chronic) Medical History: Medical History (Last Reviewed 10/22/19 @ 12:44 by Karin Clayton) Bilateral carotid artery stenosis (Chronic) I65.23 RCEA and L carotid 70-80% stenosis Atherosclerosis of coronary artery of [place] heart without angina pectoris (Chronic) I25.10 PCI-JAZIEL-LAD w/ 2.0 x 30 mm and 2.5 x 34 mm Resolute Issa and PCI-JAZIEL-Mid LCx w/ Resolute [place] 2.0 x 30 mm and 2.0 x 22 mm Stent 05/18/2018 Acute on chronic combined systolic (congestive) and diastolic (congestive) heart failure (Chronic) I50.43 Non-rheumatic tricuspid valve insufficiency (Chronic) I36.1 Secondary pulmonary arterial hypertension (Chronic) I27.21 Nonrheumatic mitral (valve) insufficiency (Chronic) I34.0 CVA (cerebral vascular accident) (Chronic) I63.9 Essential (primary) hypertension (Chronic) I10 Hyperlipidemia (Chronic) E78.5 Nicotine dependence (Chronic) F17.200 Asthma J45.909 COPD (chronic obstructive pulmonary disease) J44.9 Chronic back pain M54.9, G89.29 Depression F32.9 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 Type 2 diabetes mellitus E11.9 Allergies Penicillins Allergy (Severe, Verified 07/12/19 03:06) Swelling tolerated keflex in past with no issue Home Medications: Ambulatory Orders Medication Instructions Recorded Insulin Lispro [Humalog KwikPen] 3 unit SQ TIDCM 12/20/17 Clopidogrel Bisulfate [Clopidogrel] 75 mg PO DAILY 05/24/18 Oxford-3 Fatty Acids [Oxford-3] 2,000 mg PO DAILY 05/24/18 Ergocalciferol (Vitamin D2) 50,000 unit PO WE 06/11/18 [Vitamin D2] Loratadine 10 mg PO DAILY PRN PRN 07/02/18 Insulin Glargine,Hum.rec.anlog 10 unit SQ QHS 07/24/18 [Basaglar Kwikpen U-100] Furosemide 40 mg PO BID #30 tab 07/26/18 buspirone 10 mg tablet 20 mg PO TID tab 08/15/18 sertraline 50 mg tablet 50 mg PO DAILY 08/17/18 Acetaminophen [Mapap] 1,300 mg PO BID PRN PRN 06/29/19 Aspirin [Aspirin, Baby] 81 mg PO DAILY@0800 07/12/19 Surgical History: Surgical History (Last Reviewed 03/19/19 @ 12:44 by Karin Clayton) History of coronary artery stent placement (Resolved) Onset Date: 05/18/18 Z95.5 PCI-JAZIEL-LAD w/ 2.0 x 30 mm and 2.5 x 34 mm Resolute [place] and PCI-JAZIEL-Mid LCx w/ Resolute Issa 2.0 x 30 mm and 2.0 x 22 mm Stent 05/18/2018 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 Psychiatric History: Anxiety, Depression [employer] History: No pertinent [employer] history Lives: Spouse/ Significant Other Smoking Status: Former smoker - Quit 14 months prior to current presentation with prior to this 1-1.5 ppd cigarette tobacco use. Tobacco Use: Non-smoker Alcohol: None Drugs: None - *Family History Maternal Family History: Family History (Last Reviewed 03/19/19 @ 12:44 by Karin Clayton) Mother No problems noted. History Items: High Cholesterol, Heart Disease, Hypertension, Stroke, - - Patient's mother in her 40s from a cerebrovascular accident. Paternal Family History: Family History (Last Reviewed 03/19/19 @ 12:44 by Karin Clayton) Mother No problems noted. History Items: High Cholesterol, Heart Disease, Hypertension, - - Patient's father in his 40s from myocardial infarction. Review of Systems Constitutional: Reports: Malaise, Weakness, Fatigue. Denies: Anorexia, Chills, Fever, Weight Change HEENT: Denies: Head Aches, Sinus Congestion, Sinus Drainage Cardiovascular: Reports: Orthopnea. Denies: Chest Pain, Chest Pressure, Chest Tightness, Light Headedness, Palpitations, Syncope Respiratory: Reports: Cough, Shortness of Breath, Shortness of breath at rest, Shortness of breath upon exertion, Sputum production, Wheezing Gastrointestinal: Denies: Abdominal Pain, Nausea, Vomiting Genitourinary: Denies: Dysuria Musculoskeletal: Reports: Back Pain, Joint Pain. Denies: Joint Tenderness Skin: Reports: Skin Changes. Denies: Rash, Wounds Neurological: Denies: Numbness, Tingling, Focal weakness Psychiatric: Reports: Anxiety, Depression. Denies: Homicidal Ideations, Suicidal Ideations Hematologic/ Lymphatic: Reports: Anemia, Easy Bruising, Easy Bleeding VTE Information - Inpt Only VTE Present on Admission: No VTE Mechan Device Prophylaxis: SCD's VTE Pharm Prophylaxis ordered?: Yes Patient Problems: Active and Suspected Problems (Last Reviewed 03/19/19 @ 12:44 by Karin Clayton) Acute respiratory failure with hypoxia (Acute) COPD exacerbation (Acute) CHF exacerbation (Acute) Subjective: Seated upright in the ED bed, fatigued appearance, notes feeling improved since initial ED presentation, no evidence of respiratory distress currently but upon presentation had increased respiratory rate, accessory muscle usage and was in evident distress. Objective: Physical Examination: General: awake, alert, oriented x 3 and cooperative, seated upright in the ED bed, improved from prior, respiratory distress has improved. Skin: normal color, turgor, no icterus, cyanosis. HEENT: AT/NC, EOMI, PERRLA, MMM, no carotid bruits, + JVD noted. Lungs: Diminished breath sounds bilaterally, greater bilateral bases, mild rales basis, wheezing lessened but upon initial ED presentation was significantly coarse with inspiratory notably wheezing per ED report, respiratory distress noted upon initial presentation has resolved. Heart: Mildly tachycardic with regular rhythm; no gallop, rub audible. Abdomen: soft, NTTP, ND, normal BS, no HSM. Extremities: no cyanosis, clubbing, or edema. Neurological: patient awake, alert, oriented x 3; cognitive function appears baseline intact; pupils equally reactive to light and accomodation; cranial nerves II-XII grossly normal, moving all 4 extremities, no focal deficits, strength moderately global decrease secondary to acute presentation, improving. Psychiatric: affect appears fatigued, no acute evidence of depressive or anxiety feelings. - Physical Exam Vitals/I&O's: Vital Signs Temp Pulse Resp BP Pulse Ox 97.1 F L 102 H 21 H 123/64 H 96 07/12/19 03:01 07/12/19 04:01 07/12/19 04:01 07/12/19 04:01 07/12/19 04:01 Oxygen Delivery Method Nasal Cannula Weight: 180 lb 5.41 oz Body Mass Index (BMI) 36.4 Laboratory Results 07/12/19 03:25: WBC 15.8 H, RBC 3.34 L, Hgb 9.7 L, Hct 31.3 L, MCV 93.7, MCH 29.0, MCHC 31.0 L, RDW Std Deviation 48.8 H, RDW Coeff of Jade 14.5, Plt Count 577 H, MPV 9.5, Immature Gran % (Auto) 0.700, Neut % (Auto) 76.9 H, Lymph % (Auto) 12.4 L, [place] % (Auto) 6.8, Eos % (Auto) 2.7, Baso % (Auto) 0.5, Absolute Neuts (auto) 12.2 H, Absolute Lymphs (auto) 1.96, Nucleated RBC % 0 07/12/19 03:25: Sodium 135 L, Potassium 4.0, Chloride 100, Carbon Dioxide 26.0, Anion Gap 9, BUN 29 H, Creatinine 2.25 H, Estim Creat Clear Calc 33.05, Est GFR (MDRD) Af Amer 28 L, Est GFR (MDRD) Non-Af 23 L, BUN/Creatinine Ratio 12.9, Glucose 409 H, Calcium 8.7, Total Bilirubin 0.70, AST 29, ALT 24, Alkaline Phosphatase 124 H, Troponin I 0.082 H, Total Protein 7.7, Albumin 2.9 L, Globulin 4.8 H, Albumin/Globulin Ratio 0.6 L 07/12/19 03:25: B-Natriuretic Peptide 2732.3 H Assessment/Plan All Active Problems (Last Reviewed 03/19/19 @ 12:44 by Karin Clayton) Acute respiratory failure with hypoxia (Acute) COPD exacerbation (Acute) CHF exacerbation (Acute) History of coronary artery stent placement (Resolved 05/18/18) Acute exacerbation of CHF (congestive heart failure) (Resolved) COPD exacerbation (Resolved) Chronic ulcer of buttock (Resolved) Flash pulmonary edema (Resolved) The patient is a 63 y/o F w/ PMHx: Former Tobacco use, CAD s/p PCI LAD and mid LCx, Chronic combined Systolic/Diastolic CHF, HTN, HLD, Carotid disease s/p R CEA, L 70-80% stenosis, HTN, HLD, Asthma, Anxiety and Depression, Obesity, C hronic back pain, COPD, Hx CVA, Diabetes mellitus type II who presents to the [facility] ED on 07/12/19 with history of recent ED evaluation ~ 2 weeks prior with dyspnea, chest pain with transfer to [facility] at that time with NSTEMI (trop significantly elevated) with balloon angioplasty to in-stent stenosis proximal LAD and ostium of the diagonal complicated by undifferentiated shock after the catheterization with unremarkable cultures, eventually diuresis with discharge 07/10/19 with severe onset dyspnea at ~ 3 am, felt like she could not breath, noted to be 82% on RA with wheezing. 1. Acute Hypoxic Respiratory Failure secondary to Acute Diastolic and Systolic CHF Exacerbation, Multifactorial, secondary to concurrently #2: CXR obtained in the ED w/ evidence of congestion. Patient administered IV lasix in the ED, will admit to PCU given clinical improvement while in the ED, maintain on cardiac telemetry, obtain cardiac enzyme series although significantly decreased from recent admission at [facility] with an STEMI at that time, obtain serial EKGs, continue IV lasix diuresis, monitor I/Os, maintain on intake restriction, continue medical therapy, defer repeat echo as recently performed at [facility] with noted EF 42%, grade 1 diastolic dysfunction, 1-2+ mitral regurgitation. Will obtain TSH and magnesium level. Cardiology consulted, pending. PRN morphine to decrease afterload, continue oxygen supplementation, if necessary will position w/ upright position with legs off bed to decrease preload. 2. Acute on chronic COPD exacerbation: Will maintain on oxygen with wean as tolerated to room air, continue ATC duonebs, PRN albuterol, IV methylprednisolone , HOB, IS parameters, do note CBC with WC elevation or left shift but afebrile and recent 7 day course rocephin at [facility], will obtain sputum cx and respiratory viral panel. 3. Acute kidney injury on CKD stage III: Secondary to likely acute presentation #1 as noted. Admission BUN/Cr 29/2.25, prior baseline creatinine noted to be 1.5-1.6. Given acute presentation, will continue to diureses, repeat chemistry in AM. If no improvement would plan FeNa, renal US assessment. 4. Indeterminate cardiac enzyme, Improving w/ Recent NSTEMI Hx: Secondary to likely acute presentation #1 as noted. ED evaluation w/ troponin 0.082, chest x- ray with cardiomegaly with evidence of congestion, EKG with sinus tachycardia with ST depressions and nonspecific ST changes unchanged from prior. Will place on a monitored bed to assure no acute myocardial infarction with serial cardiac enzymes and EKGs. ASA, NG, morphine. Recent [facility] cardiac catheterization with ba mindion angioplasty to in-stent stenosis proximal LAD and ostium of the diagonal. 5. Diabetes mellitus type II with Hyperglycemia, Uncontrolled: Recent [facility] obtained HgbA1c 11.9%, obtain nutrition consultation for education and teaching, increase insulin regimen in interim, ADA diet, accu checks w/ ISS. 6. Chronic normocytic anemia: Admission hemoglobin 9.7, baseline 10-11 range, trend CBC. 7. Anxiety and depression: We will continue patient home BuSpar and sertraline regimen. 8. Carotid disease: Status post right CEA, left with noted ongoing stenosis with continued outpatient evaluation, maintain on aspirin, Plavix, add statin therapy. 9. Hypertension: Maintain on IV Lasix as noted, continue Toprol per [facility] regimen, PRN IV hydralazine. 10. Hyperlipidemia: Continue high-dose statin per [facility] regimen, obtain AM FLP. 11. Obesity: Weight loss and lifestyle changes encouraged, nutrition consulted. 12. Former Tobacco Abuse: Encouraged continued cessation, notes quit 14 months prior to current presentation. 13. History CVA: We will continue on aspirin, Plavix, hypertensive regimen, statin therapy, altering insulin regimen as noted. 14. DVT prophylaxis: SCDs, heparin. Code Visit Inpatient E&M: 08277 Init Hosp L3
[2019-07-12 06:18] LABS: Cholesterol 134 mg/dL (200); High Density Lipoprotein 40 mg/dL; Magnesium 2.5 mg/dL (1.6-2.6); Thyroid Stim Hormone (TSH) 5.21 uIU/mL (0.358-3.74); Triglycerides 252 mg/dL; Very Low Density Lipoprotein 50 mg/dL (5-40)
[2019-07-12] MEDS: busPIRone 5 MG Tablet 20 MG PO ×3 (06:58→20:47)
[2019-07-12 07:17] LABS: T4 Free Direct 1.23 ng/dL (0.76-1.46)
[2019-07-12 07:23] LABS: Lactic Acid 2.1 mmol/L (0.4-1.9)
--- NOTE | 2019-07-12 08:00 | EKG12_ITS ---
Test Reason : SOB Blood Pressure : / mmHG Vent. Rate : 125 BPM Atrial Rate : 125 BPM P-R Int : 124 ms QRS Dur : 096 ms QT Int : 328 ms P-R-T Axes : 063 002 075 degrees QTc Int : 473 ms Sinus tachycardia Possible Left atrial enlargement Septal infarct , age undetermined ST & T wave abnormality, consider lateral ischemia Abnormal ECG Confirmed by NILSON HILL ([id number]), greeting card editor RAYMUNDO PATEL ([id number]) on 07/15/2019 3:41:30 PM Referred By: CODY Confirmed By:NILSON HILL
[2019-07-12 08:46] LABS: Bedside Glucose > 500 mg/dL (70-110)
[2019-07-12] MEDS: Aspirin 81 MG TAB.CHEW PO (09:11)
[2019-07-12] MEDS: Metoprolol(XL)Succ 25 MG Tablet PO (09:11)
[2019-07-12] MEDS: Pantoprazole Sodium 20 MG Tablet PO ×2 (09:12→20:46)
[2019-07-12] MEDS: Sertraline 50 MG Tablet PO (09:12)
[2019-07-12] MEDS: Clopidogrel Bisulfate 75 MG Tablet PO (09:13)
[2019-07-12] MEDS: Acetaminophen 325 MG Tablet 650 MG PO ×2 (09:13→19:54)
[2019-07-12] MEDS: Heparin Injection (Vial) 5,000 UNIT/ML VIAL 5000 UNIT SC ×2 (09:13→20:45)
--- NOTE | 2019-07-12 09:17 | ECHOCS_ITS ---
Reason For Study: CHF Procedure This was a 2D Doppler, Color Flow transthoracic echocardiogram. Contrast injection was performed. Exam performed portable in patient room. Left Ventricle Moderately dilated left ventricle. The estimated ejection fraction is 45 %. Stage 1 diastolic dysfunction. Mid-Anterior : Mildly hypokinetic. Mid-anteroseptal : Mildly hypokinetic. Anterior [place] : Severely Hypokinetic. Inferior [place] : Severely Hypokinetic. Right Ventricle Normal size and thickness. Normal systolic function. Atria The left atrium is moderately enlarged. Normal right atrium. Normal atrial septum. Mitral Valve The mitral valve is structurally normal. No prolapse or stenosis seen. Severe (4+) eccentric mitral valve insufficiency. Tricuspid Valve Normal tricuspid valve. Moderate (2+) tricuspid valve insufficiency. Right ventricular systolic pressure estimated to be 55 mmHg. Moderate pulmonary hypertension. Aortic Valve Trisinus/trileaflet aortic valve. Mild diffuse aortic valve thickening. Trivial aortic valve insufficiency. Pulmonic Valve Normal pulmonic valve. Great Vessels Normal aortic root. Normal arch. Normal inferior vena cava. Inferior vena cava collapse with sniff. Pericardium/Pleural No pericardial effusion. Medication Diluted definity 2ml given slow IV push to enhance endocardial definition. MMode/2D Measurements & Calculations LVIDd: 5.2 cm IVSd: 1.0 cm Ao root diam: 3.0 cm LVIDs: 3.8 cm LVPWd: 0.99 cm RVDd: 3.3 cm FS: 27.4 % LAV(MOD-bp): 72.5 ml LVAd ap4: 34.3 cm2 SV(MOD-sp4): 68.4 ml LAV(MOD-bp) Indexed: 41.1 ml/m2 EDV(MOD-sp4): 129.3 ml LAV(MOD-sp2): 65.5 ml EDV(sp4-el): 133.4 ml LAV(MOD-sp4): 70.0 ml LVAs ap4: 22.7 cm2 ESV(MOD-sp4): 60.9 ml ESV(sp4-el): 63.8 ml EF(MOD-sp4): 52.9 % EF(sp4-el): 52.2 % SV(sp4-el): 69.6 ml LA A4 area: 22.3 cm2 LA dimension(2D): 4.4 cm RA A4 area: 12.9 cm2 Time Measurements MV dec time: 0.09 sec Doppler Measurements & Calculations MV E max singh: 149.4 cm/sec Lat Peak E' Singh: 8.0 cm/sec Med Peak E' Singh: 4.1 cm/sec MV A max singh: 86.3 cm/sec E/E' lat: 18.7 E/E' med: 36.7 MV E/A: 1.7 MV V2 max: 169.8 cm/sec MV P1/2t max singh: 168.9 cm/sec Ao V2 max: 164.6 cm/sec MV max P.5 mmHg MV P1/2t: 59.0 msec Ao max P.8 mmHg MV V2 mean: 110.2 cm/sec MV dec slope: 838.6 cm/sec2 Ao V2 mean: 105.8 cm/sec MV mean P.3 mmHg MVA(P1/2t): 3.7 cm2 Ao mean P.1 mmHg MV V2 VTI: 27.3 cm Ao V2 VTI: 27.6 cm LV V1 max: 124.0 cm/sec PA V2 max: 94.0 cm/sec TR max singh: 352.7 cm/sec LV V1 max P.2 mmHg TR max P.7 mmHg Interpretation Summary Moderately dilated left ventricle. The estimated ejection fraction is 45 %. Stage 1 diastolic dysfunction. The left atrium is moderately enlarged. Severe (4+) eccentric mitral valve insufficiency. Moderate (2+) tricuspid valve insufficiency. Right ventricular systolic pressure estimated to be 55 mmHg. Moderate pulmonary hypertension. Trivial aortic valve insufficiency. Compared to echo report dated 08/15/2018, no appreciable changes noted. Ordering Physician: Arslan Vazquez Referring Physician: Evens Jimenez Performed By: Mara Yang, HANSEL, RVT
[2019-07-12] MEDS: Insulin Lispro 100 UNIT/ML INSULN.PEN SC ×4 (09:19→21:12)
[2019-07-12] MEDS: Insulin Lispro 100 UNIT/ML INSULN.PEN 15 UNIT SC ×3 (09:20→17:16)
[2019-07-12 10:35] LABS: Reflex Lactate? Y
--- NOTE | 2019-07-12 10:40 | CON.PCM_ITS ---
Problem List (1) Chronic combined systolic and diastolic CHF (congestive heart failure) Status: Chronic (2) Atherosclerosis of coronary artery of ely shoshone heart without angina pectoris Status: Chronic Qualifiers: Coronary Disease-Associated Artery/Lesion type: unspecified vessel or lesion type Qualified Code(s): I25.10 - Atherosclerotic heart disease of ely shoshone coronary artery without angina pectoris Comment: PCI-JAZIEL-LAD w/ 2.0 x 30 mm and 2.5 x 34 mm Resolute Issa and PCI-JAZIEL-Mid LCx w/ Resolute Issa 2.0 x 30 mm and 2.0 x 22 mm Stent 05/18/2018 (3) History of coronary artery stent placement Status: Resolved Comment: PCI-JAZIEL-LAD w/ 2.0 x 30 mm and 2.5 x 34 mm Resolute [place] and PCI-JAZIEL-Mid LCx w/ Resolute Issa 2.0 x 30 mm and 2.0 x 22 mm Stent 05/18/2018 (4) Acute on chronic combined systolic (congestive) and diastolic (congestive) heart failure Status: Chronic (5) Nonrheumatic mitral (valve) insufficiency Status: Chronic (6) Essential (primary) hypertension Status: Chronic (7) Hyperlipidemia Status: Chronic Qualifiers: Hyperlipidemia type: unspecified Qualified Code(s): E78.5 - Hyperlipidemia, unspecified (8) Nicotine dependence Status: Chronic Reason for Consult Date of Consultation: 07/12/19 Reason for Consultation: Coronary artery disease, COPD, might regurgitation, moderate to severe pulmonary pretension, History of Present Illness: The patient is a 63 year old F, patient of Dr. Good's, with a history of diabetes, hypertension, hypercholesterolemia, LV dysfunction, coronary artery disease status post extensive rebuilding with angioplasty and stenting at [facility] approximately 1 year ago with stents to her LAD, left circumflex. Patient has a known occluded right coronary artery. In addition she has known moderate to severe mitral regurgitation with at least moderate pulmonary hypertension by recent echocardiogram. Apparently the patient was to be evaluated at [facility] on several occasions since her last angioplasty for mitral valve repair, but unfortunately did not attend those 2 appointments in the last 12 months. Patient was previously admitted twice in June 2018 for congestive heart failure exacerbation. She underwent repeat catheterization by Dr. Good which demonstrated widely patent LAD and left circumflex stents at that time. Her EF was estimated be about 45%. More recently, according to the family, on 06/29/2019, she had acute shortness of breath and was brought to [facility] ER, where there she was subsequently transferred down to [facility] for further management. It is unclear as to why the patient was transferred to [facility] and not remained here at the hospital. Nonetheless at [facility] the patient was treated with diuretic therapy, and she was found to have a troponin of [address] segment flattening. She had an attempted repeat catheterization via her right radial but unfortunately developed right forearm hematoma and the procedure was aborted. She then underwent repeat catheterization via the right femoral approach which demonstrated significant in-stent restenosis of her LAD. According to the note she underwent balloon angioplasty only of her LAD stents with kissing balloons into the diagonal. Unfortunately after that she suffered a retroperitoneal bleed but did not require hemoglobin transfusion. Her hemoglobin remained stable and she was subsequently discharged home 1 or 2 days ago. Patient developed repeat severe shortness of breath requiring her to come back to [facility] ER where she was found to be in acute on chronic congestive heart failure. She underwent IV diuretic therapy, and is doing much better today. She denied any chest pain or angina. Her EKG on arrival showed normal sinus rhythm with old anteroseptal wall myocardial infarction, nonspecific ST changes, and low voltage. She denied any anginal symptoms. She has quit smoking but still continues to smoke marijuana. He has known COPD. Bedside echocardiogram this morning demonstrates moderate LV dysfunction with an EF around 45%, severe mitral regurgitation, moderate tricuspid vegetation, and an RVSP of approximately 55 mmHg. She does have oxygen on, but is able to lay down flat without dyspnea.] Past Medical History Allergies/Adverse Reactions: Allergies Penicillins Allergy (Severe, Verified 07/12/19 03:06) Swelling tolerated keflex in past with no issue Home Medications: Ambulatory Orders Medication Instructions Recorded Insulin Lispro [Humalog KwikPen] 3 unit SQ TIDCM 12/20/17 Clopidogrel Bisulfate [Clopidogrel] 75 mg PO DAILY 05/24/18 Ethel-3 Fatty Acids [Ethel-3] 2,000 mg PO DAILY 05/24/18 Ergocalciferol (Vitamin D2) 50,000 unit PO WE 06/11/18 [Vitamin D2] Loratadine 10 mg PO DAILY PRN PRN 07/02/18 Insulin Glargine,Hum.rec.anlog 10 unit SQ QHS 07/24/18 [Basaglalyson Jimenez U-100] Furosemide 40 mg PO BID #30 tab 07/26/18 buspirone 10 mg tablet 20 mg PO TID tab 08/15/18 sertraline 50 mg tablet 50 mg PO DAILY 08/17/18 Acetaminophen [Mapap] 1,300 mg PO BID PRN PRN 06/29/19 Aspirin [Aspirin, Baby] 81 mg PO DAILY@0800 07/12/19 Past Medical History (Chronic Problems): Chronic Problems (Last Reviewed 03/19/19 @ 12:44 by Karin Clayton) Chronic combined systolic and diastolic CHF (congestive heart failure) (Chronic) Former tobacco use (Chronic) Bilateral carotid artery stenosis (Chronic) RCEA and L carotid 70-80% stenosis Atherosclerosis of coronary artery of ely shoshone heart without angina pectoris (Chronic) PCI-JAZIEL-LAD w/ 2.0 x 30 mm and 2.5 x 34 mm Resolute Issa and PCI-JAZIEL-Mid LCx w/ Resolute Issa 2.0 x 30 mm and 2.0 x 22 mm Stent 05/18/2018 Acute on chronic combined systolic (congestive) and diastolic (congestive) heart failure (Chronic) Non-rheumatic tricuspid valve insufficiency (Chronic) Secondary pulmonary arterial hypertension (Chronic) Nonrheumatic mitral (valve) insufficiency (Chronic) CVA (cerebral vascular accident) (Chronic) Essential (primary) hypertension (Chronic) Hyperlipidemia (Chronic) Nicotine dependence (Chronic) Surgical History: - - R CEA, L 5th toe amputation, PCI, T+A. 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 History Items: High Cholesterol, Heart Disease, Hypertension, Stroke, - - Patient's mother in her 40s from a cerebrovascular accident. Paternal Family History: Family History (Last Reviewed 03/19/19 @ 12:44 by Karin Clayton) Mother No problems noted. History Items: High Cholesterol, Heart Disease, Hypertension, - - Patient's father in his 40s from myocardial infarction. Lives: Spouse/ Significant Other Smoking Status: Former smoker Tobacco Use: Non-smoker Alcohol: None Drugs: None Review of Systems - Review of Systems General: Denies: Fever, Night Sweats, Fatigue Cardiovascular: Reports: Shortness of Breath, Shortness of Breath at Rest, Orthopnea, PND. Denies: Chest Discomfort, Peripheral Edema, Palpitations, Lightheadedness, Dizziness, Near Syncope, Syncope Respiratory: Denies: Cough, Sputum Production, Hemoptysis Gastrointestinal: Denies: Hematemesis, Hematochezia, Melena Genitourinary: Denies: Dysuria, Hematuria Skin: Denies: Rash Subjectve: Patient laying down flat, no acute distress. Bedside echo in progress. Family at the bedside. Objective: Vital Signs Temp Pulse Resp BP Pulse Ox 98.0 F 105 H 18 102/63 99 07/12/19 09:40 07/12/19 09:40 07/12/19 09:40 07/12/19 09:40 07/12/19 09:40 Oxygen Flow Rate (L/min) 2 Oxygen Delivery Method Room Air Weight: 169 lb 5.04 oz Body Mass Index (BMI) 34.2 Intake and Output for Last 24 Hours 07/10/19 07/11/19 07/12/19 23:59 23:59 23:59 Intake Total 200 / 200 Balance 200 / 200 General: Awake, Alert, Oriented x 3 HEENT: PERRL, EOMI, Sclera Non Icteric Neck: Supple, Good ROM, No Lymph Node Enlargement Lungs: Clear to auscultation Cardiovascular: Regular Rhythm, Normal S1, Normal S2, No Murmurs, No Rubs, No Gallops Vascular: No Carotid Bruits, Normal Femoral Pulses, Normal Radial Pulses, Normal Dorsalis Pedal Pulse, Normal Posterior Tibial Pulses Abdomen: Bowel Sounds Present, Soft, Non Tender, No HSM, No Organomegaly Extremities: No Cyanosis, No Clubbing, No edema Neurological: No Focal Motor or Sensory Deficit 07/12/19 03:25: WBC 15.8 H, RBC 3.34 L, Hgb 9.7 L, Hct 31.3 L, MCV 93.7, MCH 29.0, MCHC 31.0 L, Plt Count 577 H, MPV 9.5, Immature Gran % (Auto) 0.700, Neut % (Auto) 76.9 H, Lymph % (Auto) 12.4 L, Kidder % (Auto) 6.8, Eos % (Auto) 2.7, Baso % (Auto) 0.5, Absolute Neuts (auto) 12.2 H, Nucleated RBC % 0 07/12/19 03:25: Sodium 135 L, Potassium 4.0, Chloride 100, Carbon Dioxide 26.0, Anion Gap 9, BUN 29 H, Creatinine 2.25 H, Est GFR (MDRD) Af Amer 28 L, Est GFR (MDRD) Non-Af 23 L, BUN/Creatinine Ratio 12.9, Glucose 409 H, Calcium 8.7, Total Bilirubin 0.70, Troponin I 0.082 H 07/12/19 03:25: B-Natriuretic Peptide 2732.3 H 07/12/19 03:25: Magnesium 2.5, Triglycerides 252 H, Cholesterol 134, LDL Cholesterol 44, VLDL Cholesterol 50 H, HDL Cholesterol 40 07/12/19 06:05: Lactic Acid 2.1 H* 07/12/19 06:05: Troponin I 0.098 H 07/12/19 09:37: Troponin I 0.161 H Rhythm: EKG: As above ECHO: Final result pending, as above Stress Test: Cardiac Cath: PCI: CT Surgery: Holter monitor: EPS: PPM: CXR: Chest CT Scan: Assessment/Plan 1. Ischemic cardiomyopathy: The patient has presented several times in the last 12 months with repeated episodes of congestive heart failure symptoms most likely a result of her severe mitral regurgitation and moderate to severe pulmonary hypertension. In addition she has concomitant multivessel coronary artery disease requiring multivessel stenting approximately 1 year ago. Patient's repeat catheterization here at [facility] on 07/11/18 demo nstrated essentially widely patent LAD and left circumflex stent, and known occluded right coronary artery. The patient had been set up for [facility] evaluation for mitral valve repair, but unfortunately was unable to attend those visits due to various reasons. Patient now returns with congestive heart failure symptoms requiring repeat catheterization and balloon angioplasty at [facility] on 06/29/2019. She was recently discharged and now returns with congestive heart failure exacerbation. It appears the patient has reached the end point of maximal medical therapy with respect to her might regurgitation and pulmonary hypertension. I believe the patient requires mitral valve repair and/or tricuspid valve repair to mitigate her repeated episodes of congestive heart failure. However given her recent a dmission with retroperitoneal bleed, and the unknown severity of her COPD, we will hold off on transferring her to [facility] at this time. We will continue IV diuretic therapy in the form of Lasix IV 40 mg every 8 hours until she has reached her dry weight and is able to lay down flat without oxygen. Once this occurs, I would recommend increasing her Lasix to 80 mg p.o. twice daily in an attempt to keep her out of heart failure. Her chest x-ray demonstrates bilateral pulmonary edema but no evidence of pleural effusions. 2. Coronary artery disease: The patient had a repeat catheterization on 06/29 at [facility] and required balloon angioplasty only of her in-stent restenosis to her LAD. Prior to any mitral valve repair surgery she may require repeat catheterization. I would hold off on doing this given her recent retroperitoneal bleed. In the meantime she will continue baby aspirin and Plavix. 3. COPD: The patient has known COPD the extent of which is unknown at this time. The patient will require full pulmonary function test prior to any evaluation for mitral valve repair. If she has severe COPD which may prohibit her from going on the ventilator, then the only other option would be evaluation for mitral valve clipping to mitigate her mitral vegetation. 4. Hyperlipidemia: Recommend obtaining a fast lipid profile. Continue Lipitor therapy. 5. Discussed with Dr. Isaac patient's family, and Dr. Good her primary reception centre manager. Thank you very much for the opportunity to participate in the cardiac care of your patient. Consultation took place between 9 AM and 9:45 AM. Code Visit Inpatient E&M: 18303 Init Hosp L2
[2019-07-12 11:51] LABS: Lactic Acid 3.4 mmol/L (0.4-1.9)
--- NOTE | 2019-07-12 13:35 | CASEMGMT ---
SAM GUTHRIE assessment: Face to Face with patient for initial transition planning/care coordination assessment. RN JERRI introduced self and role at [facility], pt voices understanding and consents to assessment at this time. Pt is lying in bed in no distress at this time. Pt is A/Ox4 at this time and answers all questions appropriately at this time. Care providers, pharmacy, and demographics verified/updated at this time. Presentation: Sudden onset SOB which awoke her from sleep Admitting dx: Acute hypoxic resp failure, acute CHF PCP: Barbara VALDIVIA Specialists: Florentino cardio [facility]erred [facility]acy: [facility] Insurance: [facility] Prescription Benefit: [facility] Living Will/HPOA: Pt states does not have LW/HPOA and states that she knows that she needs to do that. Pt is aware that [facility] SW can complete with pt if she wants, voices understanding. Pt aware to ask for SW if she decides to complete, voices understanding. LNOK: Sunil Solorio, ; Priscila Walker, daughter Living Arrangements: Pt states lives with and youngest adult son in 2nd story apt and pt states difficulty with flight of stairs. Pt states that they are moving to new 1 story apt with no steps by the end of the month. Pt states that and son assist her with ADL's. Transportation: Pt states walks where she needs to go or utilizes [facility] transportation. DME/HHC: Pt states has the following DME: canes, walker, and cpap thru [facility]. Pt states no need for any further DME at this time. Pt states has had HHC in the past and has been to [facility] in the past. Pt does state concerns with going home at time of discharge and states is interested in SNF at discharge. List of in-network SNF's provided to pt at this time. Pt states that she declined therapy today and this RN JERRI advised her that she needs to do therapy to get approved for SNF, voices understanding. Pt is disabled. Pt states quit smoking cigarettes 14 months ago and states does not drink ETOH. Pt states no further concerns/needs at this time. CM/SW to follow for any further discharge planning/needs. Advised pt to ask for CM if any further questions/concerns/needs arise, voices understanding. Pt Goal: SNF Plan: SNF, pending therapy evals and SNF precert. SStaten SAM GUTHRIE
[2019-07-12 13:36] LABS: Bedside Glucose 407 mg/dL (70-110)
--- NOTE | 2019-07-12 14:13 | PCM.PROGNOTE ---
Patient Problems: Active and Suspected Problems (Last Reviewed 03/19/19 @ 12:44 by Karin Clayton) Acute respiratory failure with hypoxia (Acute) COPD exacerbation (Acute) CHF exacerbation (Acute) Subjective: Patient seen and examined. No acute events overnight. Reports improvement in breathing. Feeling overall weak. - Physical Exam Vitals/I&O's: Vital Signs Temp Pulse Resp BP Pulse Ox 98.0 F 101 H 20 H 102/63 99 07/12/19 09:40 07/12/19 11:17 07/12/19 11:17 07/12/19 09:40 07/12/19 09:40 Oxygen Flow Rate (L/min) 2 Oxygen Delivery Method Room Air Weight: 169 lb 5.04 oz Body Mass Index (BMI) 34.2 Intake and Output for Last 24 Hours 07/10/19 07/11/19 07/12/19 23:59 23:59 23:59 Intake Total 700 / 700 Output Total 400 / 400 Balance 300 / 300 General: Alert, Oriented x3, Cooperative HEENT: Atraumatic, PERRLA, EOMI, Normocephalic Neck: Supple, No JVD, Negative Carotid Bruits Lungs: Diminished, Wheezes Cardiovascular: Regular rate, Regular Rhythm, Normal S1, Normal S2, No murmurs Abdomen: Bowel Sounds Present, Soft, Non Tender, Non-Distended Extremities: No clubbing, No cyanosis, No edema, Capillary Refill Less than 3 Seconds Skin: No rashes, No breakdown Musculoskeletal: No Tenderness to Palpation of Joints or Extremities Neurological: Cranial nerves II-XII grossly intact, Neuro grossly intact Psych/Mental Status: Normal Affect, Appropriate Microbiology Past 72 Hours 07/12/19 06:52 Mucosa - Nasopharyngeal Respiratory Panel (PCR) - Final Laboratory Results 07/12/19 03:25: WBC 15.8 H, RBC 3.34 L, Hgb 9.7 L, Hct 31.3 L, MCV 93.7, MCH 29.0, MCHC 31.0 L, RDW Std Deviation 48.8 H, RDW Coeff of Jade 14.5, Plt Count 577 H, MPV 9.5, Immature Gran % (Auto) 0.700, Neut % (Auto) 76.9 H, Lymph % (Auto) 12.4 L, Eagle % (Auto) 6.8, Eos % (Auto) 2.7, Baso % (Auto) 0.5, Absolute Neuts (auto) 12.2 H, Absolute Lymphs (auto) 1.96, Nucleated RBC % 0 07/12/19 03:25: Sodium 135 L, Potassium 4.0, Chloride 100, Carbon Dioxide 26.0, Anion Gap 9, BUN 29 H, Creatinine 2.25 H, Estim Creat Clear Calc 33.05, Est GFR (MDRD) Af Amer 28 L, Est GFR (MDRD) Non-Af 23 L, BUN/Creatinine Ratio 12.9, Glucose 409 H, Calcium 8.7, Total Bilirubin 0.70, AST 29, ALT 24, Alkaline Phosphatase 124 H, Troponin I 0.082 H, Total Protein 7.7, Albumin 2.9 L, Globulin 4.8 H, Albumin/Globulin Ratio 0.6 L 07/12/19 03:25: B-Natriuretic Peptide 2732.3 H 07/12/19 03:25: Magnesium 2.5, Triglycerides 252 H, Cholesterol 134, LDL Cholesterol 44, VLDL Cholesterol 50 H, HDL Cholesterol 40, TSH 5.21 H 07/12/19 06:05: Lactic Acid 2.1 H* 07/12/19 06:05: Troponin I 0.098 H 07/12/19 06:05: Free T4 1.23 07/12/19 08:37: POC Glucose > 500 H* 07/12/19 09:37: Troponin I 0.161 H 07/12/19 11:05: Lactic Acid 3.4 H* 07/12/19 12:13: POC Glucose 407 H Current Medications Acetaminophen (Tylenol) 650 mg PO Q6H PRN PRN PRN Reason: Pain Score 1-10/Temp > 100.7 F Last Admin: 07/12/19 09:13 Dose: 650 mg Documented by: Al Hydroxide/Mg Hydroxide (Mylanta Ii) 30 ml PO Q6H PRN PRN PRN Reason: Gastric Burning Albuterol Sulfate (Ventolin Aerosols) 2.5 mg INHALATION Q2H PRN PRN PRN Reason: Dyspnea, wheezing Albuterol/Ipratropium (Duoneb) 3 ml INHALATION Q4HWA.RT [facility] Last Admin: 07/12/19 11:16 Dose: 3 ml Documented by: Aspirin (Aspirin, Baby) 81 mg PO DAILY@0800 [facility] Last Admin: 07/12/19 09:11 Dose: 81 mg Documented by: Atorvastatin Calcium (Lipitor) 80 mg PO QHS [facility] Buspirone HCl (Buspar) 20 mg PO TID [facility] Last Admin: 07/12/19 06:58 Dose: 20 mg Documented by: Clopidogrel Bisulfate (Plavix) 75 mg PO DAILY [facility] Last Admin: 07/12/19 09:13 Dose: 75 mg Documented by: Furosemide (Lasix) 40 mg IV Q8 [facility] Last Admin: 07/12/19 06:38 Dose: Not Given Documented by: Glucagon () 1 mg IM .X1 PRN PRN Reason: Hypoglycemia Guaifenesin (Robitussin) 20 ml PO Q4H PRN PRN PRN Reason: COUGH Heparin Sodium (Porcine) (Heparin Na) 5,000 unit SC Q12 [facility] Last Admin: 07/12/19 09:13 Dose: 5,000 unit Documented by: Hydralazine HCl (Apresoline Iv) 10 mg IV Q4H PRN PRN PRN Reason: SBP > 160 Dextrose (Dextrose 10%-Water) 250 mls @ 999 mls/hr IV .Q16M PRN; Protocol PRN Reason: HYPOGLYCEMIA Sodium Chloride () 250 mls @ 15 mls/hr IV .[id number] PRN PRN Reason: Saline Flush Sodium Chloride () 250 mls @ 15 mls/hr IV .[id number] PRN PRN Reason: Additional IVPB Infusion Insulin Glargine (Lantus (Bkc)) 35 units SC BID [facility] Last Admin: 07/12/19 12:18 Dose: Not Given Documented by: Insulin Human Lispro (Humalog Kwikpen (Bkc)) 0 unit SC ACHS [facility]; Protocol Last Admin: 07/12/19 12:20 Dose: 14 u Documented by: Insulin Human Lispro (Humalog Kwikpen (Bkc)) 15 unit SC TIDCM [facility] Last Admin: 07/12/19 12:20 Dose: 15 u Documented by: Magnesium Hydroxide (Milk Of Magnesia) 30 ml PO DAILY PRN PRN PRN Reason: Constipation Melatonin (Melatonin) 3 mg PO QHS PRN PRN PRN Reason: INSOMNIA Methylprednisolone (Solu-Medrol) 40 mg IV Q8 [facility] Last Admin: 07/12/19 06:39 Dose: Not Given Documented by: Metoprolol Succinate (Toprol Xl (Beta Kristy)) 25 mg PO DAILY [facility] Last Admin: 07/12/19 09:11 Dose: 25 mg Documented by: Morphine Sulfate () 2 mg IV Q3H PRN PRN PRN Reason: Pain Score 6-10/10 Nitroglycerin (Nitrostat) 0.4 mg SUBLINGUAL Q5M PRN PRN Reason: CARDIAC/CHEST PAIN Ondansetron HCl (Zofran) 4 mg IV Q8H PRN PRN PRN Reason: NAUSEA/VOMITING Oxycodone HCl (Oxyir) 5 mg PO Q4H PRN PRN PRN Reason: Pain Score 4-5/10 Pantoprazole Sodium (Protonix) 20 mg PO BID [facility] Last Admin: 07/12/19 09:12 Dose: 20 mg Documented by: Prochlorperazine Edisylate (Compazine Iv) 5 mg IV Q4H PRN PRN PRN Reason: Breakthrough Nausea/Vomiting Psyllium Hydrophilic Mucilloid (Metamucil) 1 packet PO DAILY PRN PRN PRN Reason: Constipation Senna/Docusate Sodium (Senokot-S, Brook-Colace) 2 tablet PO BID PRN PRN PRN Reason: Constipation Sertraline HCl (Zoloft) 50 mg PO DAILY [facility] Last Admin: 07/12/19 09:12 Dose: 50 mg Documented by: Sodium Chloride () 10 - 40 ml IV UD PRN PRN Reason: SALINE FLUSH Throat Lozenges (Cepacol Sore Throat Lozenge) 1 lozenge MUCOUS MEM Q2H PRN PRN PRN Reason: SORE THROAT Medical Necessity - Tobacco Use Smoking Status: Former smoker Tobacco Use: Non-smoker Assessment/Plan All Active Problems (Last Reviewed 03/19/19 @ 12:44 by Karin Clayton) Acute respiratory failure with hypoxia (Acute) COPD exacerbation (Acute) CHF exacerbation (Acute) History of coronary artery stent placement (Resolved 05/18/18) Acute exacerbation of CHF (congestive heart failure) (Resolved) COPD exacerbation (Resolved) Chronic ulcer of buttock (Resolved) Flash pulmonary edema (Resolved) 1. Acute toxic respiratory failure secondary to acute on chronic combined systolic and diastolic CHF and COPD exacerbation-continue supplemental oxygen to maintain O2 at or above 90%. 2. Acute on chronic combined systolic and diastolic CHF-BNP greater than 2700. Chest x-ray consistent with CHF. Continue IV Lasix. Strict I&O. Daily weight. Echocardiogram demonstrates an EF of 45%, stage I diastolic dysfunction, severe mitral valve insufficiency, moderate tricuspid valve insufficiency, moderate pulmonary hypertension with RVSP 55 mmHg. 2. Acute exacerbation of COPD-continue supplement oxygen as noted above. Albuterol and DuoNeb aerosols. IV Solu-Medrol. Respiratory panel negative. Sputum culture ordered. 3. Indeterminate cardiac enzymes, recent NSTEMI-cardiology consulted. Plan for continued medical management. Recent [facility] cardiac catheterization with balloon angioplasty to in-stent stenosis proximal LAD and ostium of the diagonal. Continue aspirin, statin, Plavix, beta-kristy. 4. Acute kidney injury on chronic kidney disease stage III-continue with IV Lasix, trend BMP. If no improvement on repeat labs plan for FENa and renal ultrasound. 5. Lactic acidosis-suspect secondary to #1. No evidence of infectious etiology. Obtain UA. CXR without infiltrate. 6. Type 2 diabetes mellitus-uncontrolled. Recent hemoglobin A1c 11.9%. Accu-Cheks with sliding scale insulin. 7. Anxiety with depression-continue home BuSpar and sertraline regimen. 8. Carotid artery disease status post right CEA-continue outpatient follow-up for left-sided stenosis. Continue aspirin, Plavix, statin. 9. Hypertension-stable, continue metoprolol regimen. 10. Hyperlipidemia-continue statin. 11. Obesity-encouraged diet lifestyle indications. 12. Former tobacco use-encouraged continued cessation. 13. History of CVA-continue aspirin, Plavix, statin, BP regimen. DVT prophylaxis-heparin subcu This patient was seen by ORIN Hadley under the supervision of Dr. Isaac.
[2019-07-12] MEDS: 0.9% Saline Lock 10 ML Syringe IV ×2 (14:26→20:47)
[2019-07-12 17:26] LABS: Bedside Glucose 178 mg/dL (70-110)
[2019-07-12] MEDS: Atorvastatin Calcium 80 MG Tablet PO (20:46)
[2019-07-12] MEDS: MELATONIN 3 MG TABLET PO (21:00)
[2019-07-12 21:30] LABS: Bedside Glucose 171 mg/dL (70-110)
[2019-07-12] MEDS: MELATONIN 3 MG TABLET 6 MG PO (23:22)
[2019-07-13] VITALS (14 sets, daily range): BP systolic 105–112; BP diastolic 59–73; PULSE 96–102; RESP 16–20; TEMP 36.8–37.1; O2SAT 94–99
[2019-07-13] MEDS: busPIRone 5 MG Tablet 20 MG PO ×3 (06:32→20:27)
[2019-07-13] MEDS: 0.9% Saline Lock 10 ML Syringe IV ×2 (06:33→08:40)
[2019-07-13] MEDS: Insulin Lispro 100 UNIT/ML INSULN.PEN SC ×3 (06:45→16:43)
[2019-07-13] MEDS: Ipratropium/Albuterol Sulfate 3 ML AMPUL.NEB INHALATION ×4 (06:48→18:39)
--- NOTE | 2019-07-13 06:55 | NURSING ---
Pt IV infiltrated.Removed IV and pt. has very small veins and is a very hard stick. Passed on to day RN that IV lasix for 0600 was not given due to no IV access. Arlette VARGAS will address access.
[2019-07-13 07:15] LABS: Bedside Glucose 244 mg/dL (70-110)
[2019-07-13 08:03] LABS: Absolute Lymphocyte Count 0.69 X10^3/uL (0.83-4.51); Absolute Neutrophil Count 18.7 X10^3/uL (2.0-7.7); Basophil# 0.02 X10^3/uL; Basophil% 0.1 % (0-1); Hematocrit 26.1 % (37-47); Hemoglobin 8.3 g/dL (12.0-15.0); Lymphocyte # 0.69 X10^3/ul (4.0); Lymphocyte % 3.5 % (19-41); Mean Corp Hgb Conc 31.8 g/dL (32-36); Mean Corpuscular Hgb 29.3 pg (27.0-32.0); Mean Corpuscular Volume 92.2 fL (81-99); Mean Platelet Vol. 9.7 fl (6.2-12.0); Monocyte# 0.36 X10^3/uL; Monocyte% 1.8 % (0-10); NRBC Flagged by Analyzer 0 % (0-5); Neutrophil # 18.65 X10^3/uL (2.7-7.7); Neutrophil % 93.9 % (47-70); Platelet Count 513 K/mm3 (150-450); RBC Distribution Width CV 14.7 % (11.6-14.6); Red Blood Count 2.83 M/mm3 (4.2-5.4); White Blood Count 19.9 K/mm3 (4.4-11.0)
[2019-07-13 08:19] LABS: Anion Gap 8 (5-15); BUN 40 mg/dL (7-18); BUN/Creat Ratio 16.8 RATIO (10-20); Calcium,Total 8.6 mg/dL (8.5-10.1); Chloride 105 mmol/L (98-107); Creatinine, Serum 2.38 mg/dL (0.55-1.02); EST Glomerular Filtration Rate 22 mL/min (>60); Est Glom Filt Rate - Afr Amer 26 mL/min (>60); Estimated Creatinine Clearance 29.41 ml/min; Glucose 244 mg/dL (74-106); Potassium 3.9 mmol/L (3.5-5.1); Sodium Level 136 mmol/L (136-145)
[2019-07-13] MEDS: Furosemide 40 MG/4 ML Vial IV (08:40)
--- NOTE | 2019-07-13 09:35 | PCM.PN.CARD ---
Subjectve: Patient doing better today, able to lay down flat and sleep without any difficulty. Off of oxygen this morning. No conversational dyspnea. Objective: Vital Signs Temp Pulse Resp BP Pulse Ox 98.5 F 102 H 18 111/63 95 07/13/19 08:29 07/13/19 08:29 07/13/19 08:29 07/13/19 08:29 07/13/19 08:29 Oxygen Flow Rate (L/min) 1 Oxygen Delivery Method Room Air Weight: 169 lb 12.095 oz Body Mass Index (BMI) 34.2 Intake and Output for Last 24 Hours 07/11/19 07/12/19 07/13/19 23:59 23:59 23:59 Intake Total 1300 / 1300 150 / 150 Output Total 400 / 400 Balance 900 / 900 150 / 150 General: Awake, Alert, Oriented x 3 HEENT: PERRL, EOMI, Sclera Non Icteric Neck: Supple, Good ROM, No Lymph Node Enlargement Lungs: Rales - Left Base Cardiovascular: Regular Rhythm, Normal S2, No Rubs, No Gallops Murmur Murmur: Grade 3/6, Holosystolic Vascular: No Carotid Bruits, Normal Femoral Pulses, Normal Radial Pulses, Normal Dorsalis Pedal Pulse, Normal Posterior Tibial Pulses Abdomen: Bowel Sounds Present, Soft, Non Tender, No HSM, No Organomegaly Extremities: No Cyanosis, No Clubbing, No edema Neurological: No Focal Motor or Sensory Deficit 07/12/19 09:37: Troponin I 0.161 H 07/12/19 11:05: Lactic Acid 3.4 H* 07/13/19 06:31: WBC 19.9 H, RBC 2.83 L, Hgb 8.3 L, Hct 26.1 L, MCV 92.2, MCH 29.3, MCHC 31.8 L, Plt Count 513 H, MPV 9.7, Immature Gran % (Auto) 0.700, Neut % (Auto) 93.9 H, Lymph % (Auto) 3.5 L, [place] % (Auto) 1.8, Eos % (Auto) 0.0, Baso % (Auto) 0.1, Absolute Neuts (auto) 18.7 H, Nucleated RBC % 0 07/13/19 06:31: Sodium 136, Potassium 3.9, Chloride 105, Carbon Dioxide 23.0, Anion Gap 8, BUN 40 H, Creatinine 2.38 H, Est GFR (MDRD) Af Amer 26 L, Est GFR (MDRD) Non-Af 22 L, BUN/Creatinine Ratio 16.8, Glucose 244 H, Calcium 8.6 Rhythm: EKG: ECHO: LVEF of 45%, RVSP of 55 mmHg, severe mitral regurgitation, moderate tricuspid vegetation. Stress Test: Cardiac Cath: PCI: CT Surgery: Holter monitor: EPS: PPM: CXR: Chest CT Scan: Medical Necessity - Tobacco Use Smoking Status: Former smoker Tobacco Use: Non-smoker Assessment/Plan 1. Ischemic cardiomyopathy: The patient has presented several times in the last 12 months with repeated episodes of congestive heart failure symptoms most likely a result of her severe mitral regurgitation and moderate to severe pulmonary hypertension. In addition she has concomitant multivessel coronary artery disease requiring multivessel stenting approximately 1 year ago. Patient's repeat catheterization here at [facility] on 07/11/18 demonstrated essentially widely patent LAD and left circumflex stent, and known occluded right coronary artery. The patient had been set up for [facility] evaluation for mitral valve repair, but unfortunately was unable to attend those visits due to various reasons. Patient now returns with congestive heart failure symptoms requiring repeat catheterization and balloon angioplasty at [facility] on 06/29/2019. She was recently discharged and now returns with congestive heart failure exacerbation. It appears the patient has reached the end point of maximal medical therapy with respect to her might regurgitation and pulmonary hypertension. I believe the patient requires mitral valve repair and/or tricuspid valve repair to mitigate her repeated episodes of congestive heart failure. However given her recent admission with retroperitoneal bleed, and the unknown severity of her COPD, we will hold off on transferring her to [facility] at this time. In addition, the patient wishes to go to the [facility] should any mitral valve repair be indicated. None of the patient has been able to lay down flat, we will discontinue her IV Lasix and switch her to Lasix 80 mg p.o. twice daily. In addition once her lungs are completely dried out, I would recommend pulmonary function test to determine her candidacy for open mitral valve repair versus evaluation for mitral valve clipping. Her chest x-ray demonstrates bilateral pulmonary edema but no evidence of pleural effusions but does show bilateral pulmonary vascular congestion.. 2. Coronary artery disease: The patient had a repeat catheterization on 06/29/2019 at [facility] and required balloon angioplasty only of her in-stent restenosis to her LAD. Prior to any mitral valve repair surgery she may require repeat catheterization. I would hold off on doing this given her recent retroperitoneal bleed. In the meantime she will continue baby aspirin and Plavix. 3. COPD: The patient has known COPD the extent of which is unknown at this time. The patient will require full pulmonary function test prior to any evaluation for mitral valve repair. If she has severe COPD which may prohibit her from going on the ventilator, then the only other option would be evaluation for mitral valve clipping to mitigate her mitral vegetation. PFTs to follow on Monday. 4. Hyperlipidemia: Recommend obtaining a fast lipid profile. Continue Lipitor therapy. 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 Code Visit Inpatient E&M: 17194 Subs Hosp L2
[2019-07-13] MEDS: Clopidogrel Bisulfate 75 MG Tablet PO (09:40)
[2019-07-13] MEDS: Aspirin 81 MG TAB.CHEW PO (09:40)
[2019-07-13] MEDS: Pantoprazole Sodium 20 MG Tablet PO ×2 (09:41→20:30)
[2019-07-13] MEDS: Metoprolol(XL)Succ 25 MG Tablet PO (09:41)
[2019-07-13] MEDS: Sertraline 50 MG Tablet PO (09:42)
[2019-07-13] MEDS: Heparin Injection (Vial) 5,000 UNIT/ML VIAL 5000 UNIT SC ×2 (09:46→20:29)
[2019-07-13] MEDS: Insulin Lispro 100 UNIT/ML INSULN.PEN 15 UNIT SC ×3 (09:49→16:43)
[2019-07-13 09:51] LABS: Bacteria 0 SEEN /hpf (None Seen); Mucous, Urine 0 SEEN /hpf (<or=2+); Red Blood Cells-Urine 0 SEEN /hpf (0-5); White Blood Cells 0 SEEN /hpf (0-5)
[2019-07-13 09:53] LABS: Color, Urine Yellow (Yellow); Glucose, Dipstick Normal (Normal); Ketone-Dipstick Negative (Negative); Leukocyte Esterase-Dipstick Negative /ul (Negative); Nitrite-Dipstick Negative (Negative); Occult Blood-Urine 10 /ul (Negative); Protein-Dipstick 100 mg/dl (Negative); Specific Gravity, Urine 1.015 (1.002-1.030); Urine Bilirubin Dipstick Negative (Negative); Urine Clarity Sl. Cloudy (Clear); Urine Urobilinogen Normal (Normal)
[2019-07-13 09:59] LABS: Squamous Epithelial Cells - UA 5-10 SEEN /hpf (5-10); Yeast-Urine 2+ /hpf (None Seen)
[2019-07-13] MEDS: Acetaminophen 325 MG Tablet 650 MG PO ×2 (10:09→16:30)
[2019-07-13] MEDS: Furosemide 80 MG Tablet PO ×2 (10:09→16:49)
--- NOTE | 2019-07-13 10:21 | PCM.PROGNOTE ---
Patient Problems: Active and Suspected Problems (Last Reviewed 03/19/19 @ 12:44 by Karin Clayton) Acute respiratory failure with hypoxia (Acute) COPD exacerbation (Acute) CHF exacerbation (Acute) Subjective: Patient seen and examined. No acute events overnight. Reports continued improvement in breathing. Able to lie flat without difficulty. Denies other complaints. - Physical Exam Vitals/I&O's: Vital Signs Temp Pulse Resp BP Pulse Ox 98.5 F 102 H 18 111/63 95 07/13/19 08:29 07/13/19 09:41 07/13/19 08:29 07/13/19 08:29 07/13/19 08:29 Oxygen Flow Rate (L/min) 1 Oxygen Delivery Method Room Air Weight: 169 lb 12.095 oz Body Mass Index (BMI) 34.2 Intake and Output for Last 24 Hours 07/11/19 07/12/19 07/13/19 23:59 23:59 23:59 Intake Total 1300 / 1300 150 / 150 Output Total 400 / 400 Balance 900 / 900 150 / 150 General: Alert, Oriented x3, Cooperative HEENT: Atraumatic, PERRLA, EOMI, Normocephalic Neck: Supple, No JVD, Negative Carotid Bruits Lungs: Clear to auscultation, Diminished Cardiovascular: Regular rate, Regular Rhythm, Normal S1, Normal S2 Abdomen: Bowel Sounds Present, Soft, Non Tender, Non-Distended Extremities: No clubbing, No cyanosis, No edema, Capillary Refill Less than 3 Seconds Skin: No rashes, No breakdown Musculoskeletal: No Tenderness to Palpation of Joints or Extremities Neurological: Cranial nerves II-XII grossly intact, Neuro grossly intact Psych/Mental Status: Normal Affect, Appropriate Microbiology Past 72 Hours 07/12/19 06:52 Mucosa - Nasopharyngeal Respiratory Panel (PCR) - Final Laboratory Results 07/12/19 11:05: Lactic Acid 3.4 H* 07/12/19 12:13: POC Glucose 407 H 07/12/19 16:59: POC Glucose 178 H 07/12/19 21:07: POC Glucose 171 H 07/13/19 06:31: WBC 19.9 H, RBC 2.83 L, Hgb 8.3 L, Hct 26.1 L, MCV 92.2, MCH 29.3, MCHC 31.8 L, RDW Std Deviation 49.0 H, RDW Coeff of Jade 14.7 H, Plt Count 513 H, MPV 9.7, Immature Gran % (Auto) 0.700, Neut % (Auto) 93.9 H, Lymph % (Auto) 3.5 L, [place] % (Auto) 1.8, Eos % (Auto) 0.0, Baso % (Auto) 0.1, Absolute Neuts (auto) 18.7 H, Absolute Lymphs (auto) 0.69 L, Nucleated RBC % 0 07/13/19 06:31: Sodium 136, Potassium 3.9, Chloride 105, Carbon Dioxide 23.0, Anion Gap 8, BUN 40 H, Creatinine 2.38 H, Estim Creat Clear Calc 29.41, Est GFR (MDRD) Af Amer 26 L, Est GFR (MDRD) Non-Af 22 L, BUN/Creatinine Ratio 16.8, Glucose 244 H, Calcium 8.6 07/13/19 06:40: POC Glucose 244 H 07/13/19 09:35: Urine Color Yellow, Urine Clarity Sl. Cloudy, Urine pH 6.0, Ur Specific [place] 1.015, Urine Protein 100 H, Urine Glucose (UA) Normal, Urine Ketones Negative, Urine Occult Blood 10 H, Urine Nitrite Negative, Urine Bilirubin Negative, Urine Urobilinogen Normal, Ur Leukocyte Esterase Negative, Urine RBC 0 SEEN, Urine WBC 0 SEEN, Ur Squamous Epith Cells 5-10 SEEN, Urine Bacteria 0 SEEN, Urine Mucus 0 SEEN, Urine Yeast 2+ Current Medications Acetaminophen (Tylenol) 650 mg PO Q6H PRN PRN PRN Reason: Pain Score 1-10/Temp > 100.7 F Last Admin: 07/13/19 10:09 Dose: 650 mg Documented by: Al Hydroxide/Mg Hydroxide (Mylanta Ii) 30 ml PO Q6H PRN PRN PRN Reason: Gastric Burning Albuterol Sulfate (Ventolin Aerosols) 2.5 mg INHALATION Q2H PRN PRN PRN Reason: Dyspnea, wheezing Last Admin: 07/12/19 16:49 Dose: 2.5 mg Documented by: Albuterol/Ipratropium (Duoneb) 3 ml INHALATION Q4HWA.RT [facility] Last Admin: 07/13/19 06:48 Dose: 3 ml Documented by: Aspirin (Aspirin, Baby) 81 mg PO DAILY@0800 [facility] Last Admin: 07/13/19 09:40 Dose: 81 mg Documented by: Atorvastatin Calcium (Lipitor) 80 mg PO QHS [facility] Last Admin: 07/12/19 20:46 Dose: 80 mg Documented by: Buspirone HCl (Buspar) 20 mg PO TID [facility] Last Admin: 07/13/19 06:32 Dose: 20 mg Documented by: Clopidogrel Bisulfate (Plavix) 75 mg PO DAILY [facility] Last Admin: 07/13/19 09:40 Dose: 75 mg Documented by: Furosemide (Lasix) 80 mg PO BID@1000,1800 [facility] Last Admin: 07/13/19 10:09 Dose: 80 mg Documented by: Glucagon () 1 mg IM .X1 PRN PRN Reason: Hypoglycemia Guaifenesin (Robitussin) 20 ml PO Q4H PRN PRN PRN Reason: COUGH Heparin Sodium (Porcine) (Heparin Na) 5,000 unit SC Q12 [facility] Last Admin: 07/13/19 09:46 Dose: 5,000 unit Documented by: Hydralazine HCl (Apresoline Iv) 10 mg IV Q4H PRN PRN PRN Reason: SBP > 160 Dextrose (Dextrose 10%-Water) 250 mls @ 999 mls/hr IV .Q16M PRN; Protocol PRN Reason: HYPOGLYCEMIA Sodium Chloride () 250 mls @ 15 mls/hr IV .[id number] PRN PRN Reason: Saline Flush Sodium Chloride () 250 mls @ 15 mls/hr IV .[id number] PRN PRN Reason: Additional IVPB Infusion Insulin Glargine (Lantus (Bkc)) 35 units SC BID [facility] Last Admin: 07/13/19 09:54 Dose: 35 u Documented by: Insulin Human Lispro (Humalog Kwikpen (Bkc)) 0 unit SC ACHS [facility]; Protocol Last Admin: 07/13/19 06:45 Dose: 6 u Documented by: Insulin Human Lispro (Humalog Kwikpen (Bkc)) 15 unit SC TIDCM [facility] Last Admin: 07/13/19 09:49 Dose: 15 u Documented by: Magnesium Hydroxide (Milk Of Magnesia) 30 ml PO DAILY PRN PRN PRN Reason: Constipation Melatonin (Melatonin) 6 mg PO QHS PRN PRN PRN Reason: INSOMNIA Last Admin: 07/12/19 23:22 Dose: 3 mg Documented by: Methylprednisolone (Solu-Medrol) 40 mg IV Q8 [facility] Last Admin: 07/13/19 06:32 Dose: 40 mg Documented by: Metoprolol Succinate (Toprol Xl (Beta Kristy)) 25 mg PO DAILY [facility] Last Admin: 07/13/19 09:41 Dose: 25 mg Documented by: Morphine Sulfate () 2 mg IV Q3H PRN PRN PRN Reason: Pain Score 6-10/10 Nitroglycerin (Nitrostat) 0.4 mg SUBLINGUAL Q5M PRN PRN Reason: CARDIAC/CHEST PAIN Ondansetron HCl (Zofran) 4 mg IV Q8H PRN PRN PRN Reason: NAUSEA/VOMITING Oxycodone HCl (Oxyir) 5 mg PO Q4H PRN PRN PRN Reason: Pain Score 4-5/10 Pantoprazole Sodium (Protonix) 20 mg PO BID [facility] Last Admin: 07/13/19 09:41 Dose: 20 mg Documented by: Prochlorperazine Edisylate (Compazine Iv) 5 mg IV Q4H PRN PRN PRN Reason: Breakthrough Nausea/Vomiting Psyllium Hydrophilic Mucilloid (Metamucil) 1 packet PO DAILY PRN PRN PRN Reason: Constipation Senna/Docusate Sodium (Senokot-S, Brook-Colace) 2 tablet PO BID PRN PRN PRN Reason: Constipation Sertraline HCl (Zoloft) 50 mg PO DAILY [facility] Last Admin: 07/13/19 09:42 Dose: 50 mg Documented by: Sodium Chloride () 10 - 40 ml IV UD PRN PRN Reason: SALINE FLUSH Last Admin: 07/13/19 08:40 Dose: 10 ml Documented by: Throat Lozenges (Cepacol Sore Throat Lozenge) 1 lozenge MUCOUS MEM Q2H PRN PRN PRN Reason: SORE THROAT Medical Necessity - Tobacco Use Smoking Status: Former smoker Tobacco Use: Non-smoker Assessment/Plan All Active Problems (Last Reviewed 03/19/19 @ 12:44 by Karin Claytno) Acute respiratory failure with hypoxia (Acute) COPD exacerbation (Acute) CHF exacerbation (Acute) History of coronary artery stent placement (Resolved 05/18/18) Acute exacerbation of CHF (congestive heart failure) (Resolved) COPD exacerbation (Resolved) Chronic ulcer of buttock (Resolved) Flash pulmonary edema (Resolved) 1. Acute hypoxic respiratory failure secondary to acute on chronic combined systolic and diastolic CHF and COPD exacerbation-continue supplemental oxygen to maintain O2 at or above 90%. 2. Acute on chronic combined systolic and diastolic CHF-BNP greater than 2700. Chest x-ray consistent with CHF. Strict I&O. Daily weight. Echocardiogram demonstrates an EF of 45%, stage I diastolic dysfunction, severe mitral valve insufficiency, moderate tricuspid valve insufficiency, moderate pulmonary hypertension with RVSP 55 mmHg. DC IV Lasix, transition to oral Lasix 80 mg twice daily per cardiology. 2. Acute exacerbation of COPD-continue supplement oxygen as noted above. Albuterol and DuoNeb aerosols. Respiratory panel negative. Sputum culture ordered. Discontinue IV Solu-Medrol. Transition to oral prednisone. 3. Indeterminate cardiac enzymes, recent NSTEMI-cardiology consulted. Plan for continued medical management. Recent [facility] cardiac catheterization with balloon angioplasty to in-stent stenosis proximal LAD and ostium of the diagonal. Continue aspirin, statin, Plavix, beta-kristy. 4. Acute kidney injury on chronic kidney disease stage III-transition to oral Lasix today, trend BMP. Renal ultrasound ordered. 5. Lactic acidosis-suspect secondary to #1. No evidence of infectious etiology. Urinalysis unremarkable. CXR without infiltrate. 6. Type 2 diabetes mellitus-uncontrolled. Recent hemoglobin A1c 11.9%. Accu-Cheks with sliding scale insulin. 7. Anxiety with depression-continue home BuSpar and sertraline regimen. 8. Carotid artery disease status post right CEA-continue outpatient follow-up for left-sided stenosis. Continue aspirin, Plavix, statin. 9. Hypertension-stable, continue metoprolol regimen. 10. Hyperlipidemia-continue statin. 11. Obesity-encouraged diet lifestyle indications. 12. Former tobacco use-encouraged continued cessation. 13. History of CVA-continue aspirin, Plavix, statin, BP regimen. DVT prophylaxis-heparin subcu Discharge planning: Patient requesting SNF at discharge. Plan for SNF pending medically stable and pre-cert. This patient was seen by ORIN Hadley under the supervision of Dr. Isaac.
--- NOTE | 2019-07-13 10:25 | US_ITS ---
STUDY: RENAL ULTRASOUND - COMPLETE REASON FOR EXAM: Female, 63 years old. Acute kidney injury. TECHNIQUE: Ultrasound evaluation of the kidneys was performed with real-time and static cárdenas-scale imaging. COMPARISON: None. FINDINGS: RIGHT KIDNEY: Normal location with severe renal atrophy. The right kidney measures 6.8 x 2.9 x 3.0 cm. Marked cortical thinning and increased echogenicity consistent with chronic renal disease. Cortex measures only 4 mm. 1.2 cm cyst of the lower pole. No hydronephrosis. DISTAL RIGHT URETER: There is non-visualization of the distal right ureter. There is no demonstrated right ureterovesical junction calculus. There is no demonstrated right ureteral jet. LEFT KIDNEY: Normal location of the left kidney, which is normal in size. The left kidney measures 11.0 x 4.8 x 4.7 cm. There is a normal cortex of the left kidney. The renal cortex measures 1.1 cm. There is no left renal mass or cyst. There are no left renal calculi. There is no left hydronephrosis. DISTAL LEFT URETER: There is non-visualization of the distal left ureter. There is no demonstrated left ureterovesical junction calculus. There is no demonstrated left ureteral jet. BLADDER: There is a normal wall thickness of the distended urinary bladder. There is no demonstrated mass within the urinary bladder. There are no demonstrated bladder calculi. US/Kidney and Bladder IMPRESSION: Severe atrophy of the right kidney. No acute abnormalities. Electronically Signed: Angus Donahue MD at 17:33 EST , Service support ,
[2019-07-13 11:35] LABS: Bedside Glucose 296 mg/dL (70-110)
[2019-07-13 17:01] LABS: Bedside Glucose 150 mg/dL (70-110)
[2019-07-13] MEDS: MELATONIN 3 MG TABLET 6 MG PO (20:28)
[2019-07-13] MEDS: Atorvastatin Calcium 80 MG Tablet PO (20:29)
[2019-07-13 22:10] LABS: Bedside Glucose 128 mg/dL (70-110)
[2019-07-14] VITALS (13 sets, daily range): BP systolic 106–115; BP diastolic 62–72; PULSE 91–105; RESP 16–19; TEMP 36.5–37.1; O2SAT 96–98
[2019-07-14] MEDS: Ipratropium/Albuterol Sulfate 3 ML AMPUL.NEB INHALATION ×5 (02:30→19:00)
[2019-07-14 05:52] LABS: Hematocrit 27.7 % (37-47); Hemoglobin 8.7 g/dL (12.0-15.0); Mean Corp Hgb Conc 31.4 g/dL (32-36); Mean Corpuscular Hgb 29.1 pg (27.0-32.0); Mean Corpuscular Volume 92.6 fL (81-99); Mean Platelet Vol. 9.5 fl (6.2-12.0); Platelet Count 513 K/mm3 (150-450); RBC Distribution Width CV 15.2 % (11.6-14.6); RBC Distribution Width SD 50.4 fl (35.1-43.9); Red Blood Count 2.99 M/mm3 (4.2-5.4)
[2019-07-14] MEDS: busPIRone 5 MG Tablet 20 MG PO ×3 (06:33→20:07)
[2019-07-14] MEDS: 0.9% Saline Lock 10 ML Syringe IV ×3 (06:34→13:02)
[2019-07-14 06:36] LABS: Anion Gap 6 (5-15); BUN 49 mg/dL (7-18); BUN/Creat Ratio 20.2 RATIO (10-20); Calcium,Total 8.4 mg/dL (8.5-10.1); Chloride 107 mmol/L (98-107); Creatinine, Serum 2.43 mg/dL (0.55-1.02); EST Glomerular Filtration Rate 21 mL/min (>60); Est Glom Filt Rate - Afr Amer 26 mL/min (>60); Estimated Creatinine Clearance 28.24 ml/min; Glucose 127 mg/dL (74-106); Potassium 3.5 mmol/L (3.5-5.1); Sodium Level 141 mmol/L (136-145)
[2019-07-14 06:56] LABS: Bedside Glucose 113 mg/dL (70-110)
[2019-07-14] MEDS: Aspirin 81 MG TAB.CHEW PO (08:00)
[2019-07-14] MEDS: Insulin Lispro 100 UNIT/ML INSULN.PEN 15 UNIT SC ×2 (08:02→16:53)
[2019-07-14] MEDS: Acetaminophen 325 MG Tablet 650 MG PO (08:02)
[2019-07-14] MEDS: predniSONE 20 MG Tablet 40 MG PO (08:03)
[2019-07-14 08:21] LABS: Bedside Glucose 119 mg/dL (70-110)
[2019-07-14] MEDS: Heparin Injection (Vial) 5,000 UNIT/ML VIAL 5000 UNIT SC (09:11)
[2019-07-14] MEDS: Metoprolol(XL)Succ 25 MG Tablet PO (09:12)
[2019-07-14] MEDS: Clopidogrel Bisulfate 75 MG Tablet PO (09:12)
[2019-07-14] MEDS: Pantoprazole Sodium 20 MG Tablet PO ×2 (09:12→20:09)
[2019-07-14] MEDS: Sertraline 50 MG Tablet PO (09:12)
[2019-07-14] MEDS: Furosemide 80 MG Tablet PO ×2 (09:12→16:52)
--- NOTE | 2019-07-14 11:17 | PN.CARD_ITS ---
Subjectve: Patient continues to slowly improve although she now complains of worsening left lower abdominal pain. In addition she is noted to have decreased hemoglobin since admission and has a known retroperitoneal bleed from her recent visit at [facility] after she underwent a diagnostic coronary angiogram via the right femoral approach. She denies any chest pain or angina and reports that her shortness of breath has markedly improved since admission. She is currently off oxygen and doing fairly well. Objective: Vital Signs Temp Pulse Resp BP Pulse Ox 98.3 F 94 18 115/62 96 07/14/19 09:00 07/14/19 10:12 07/14/19 10:12 07/14/19 09:12 07/14/19 09:00 Oxygen Flow Rate (L/min) 1 Oxygen Delivery Method Room Air Weight: 166 lb 7.184 oz Body Mass Index (BMI) 34.2 Intake and Output for Last 24 Hours 07/12/19 07/13/19 07/14/19 23:59 23:59 23:59 Intake Total 1300 / 1300 1210 / 1210 Output Total 400 / 400 700 / 700 900 / 900 Balance 900 / 900 510 / 510 -900 / -900 General: Awake, Alert, Oriented x 3 HEENT: PERRL, EOMI, Sclera Non Icteric Neck: Supple, Good ROM, No Lymph Node Enlargement Lungs: Clear to auscultation Cardiovascular: Regular Rhythm, Normal S2, No Rubs, No Gallops Murmur Murmur: Grade 3/6, Holosystolic Vascular: No Carotid Bruits, Normal Femoral Pulses, Normal Radial Pulses, Normal Dorsalis Pedal Pulse, Normal Posterior Tibial Pulses Abdomen: Bowel Sounds Present, Soft, No HSM, No Organomegaly, LLQ Tenderness Extremities: No Cyanosis, No Clubbing, No edema Neurological: No Focal Motor or Sensory Deficit 07/14/19 05:15: WBC 15.0 H, RBC 2.99 L, Hgb 8.7 L, Hct 27.7 L, MCV 92.6, MCH 29.1, MCHC 31.4 L, Plt Count 513 H, MPV 9.5 07/14/19 05:15: Sodium 141, Potassium 3.5, Chloride 107, Carbon Dioxide 28.0, Anion Gap 6, BUN 49 H, Creatinine 2.43 H, Est GFR (MDRD) Af Amer 26 L, Est GFR (MDRD) Non-Af 21 L, BUN/Creatinine Ratio 20.2 H, Glucose 127 H, Calcium 8.4 L Rhythm: EKG: ECHO:Interpretation Summary Moderately dilated left ventricle. The estimated ejection fraction is 45 %. Stage 1 diastolic dysfunction. The left atrium is moderately enlarged. Severe (4+) eccentric mitral valve insufficiency. Moderate (2+) tricuspid valve insufficiency. Right ventricular systolic pressure estimated to be 55 mmHg. Moderate pulmonary hypertension. Trivial aortic valve insufficiency. Compared to echo report dated 08/15/2018, no appreciable changes noted. Stress Test: Cardiac Cath: PCI: CT Surgery: Holter monitor: EPS: PPM: CXR: Chest CT Scan: Medical Necessity - Tobacco Use Smoking Status: Former smoker Tobacco Use: Non-smoker Assessment/Plan 1. Ischemic cardiomyopathy: The patient has presented several times in the last 12 months with repeated episodes of congestive heart failure symptoms most likely a result of her severe mitral regurgitation and moderate to severe pulmonary hypertension. In addition she has concomitant multivessel coronary artery disease requiring multivessel stenting approximately 1 year ago. Patient's repeat catheterization here at [facility] on 07/11/18 demonstrated essentially widely patent LAD and left circumflex stent, and known occluded right coronary artery. The patient had been set up for [facility] evaluation for mitral valve repair, but unfortunately was unable to attend those visits due to various reasons. Patient now returns with congestive heart failure symptoms requiring repeat catheterization and balloon angioplasty at [facility] on 06/29/2019. She was recently discharged and now returns with congestive heart failure exacerbation. It appears the patient has reached the end point of maximal medical therapy with respect to her might regurgitation and pulmonary hypertension. I believe the patient requires mitral valve repair and/or tricuspid valve repair to mitigate her repeated episodes of congestive heart failure. However given her recent admission with retroperitoneal bleed, and the unknown severity of her COPD, we will hold off on transferring her to [facility] at this time. In addition, the patient wishes to go to the [facility] should any mitral valve repair be indicated. None of the patient has been able to lay down flat, we will discontinue her IV Lasix and switch her to Lasix 80 mg p.o. twice daily. In addition once her lungs are completely dried out, I would recommend pulmonary function test to determine her candidacy for open mitral valve repair versus evaluation for mitral valve clipping. Her chest x-ray demonstrates bilateral pulmonary edema but no evidence of pleural effusions but does show bilateral pulmonary vascular congestion. In addition, the patient has had progressively worsening left lower abdominal quadrant pain, and reportedly had a known retroperitoneal bleed after her catheterization recently at [facility]. Would recommend a repeat CT scan with out IV contrast to determine the impact and severity of her retroperitoneal bleeding compared to the report provided by [facility] to determine if it is worsening. The patient may require her Plavix to be held if her retroperitoneal bleed is worsening. Her hemoglobin has drifted downward since admission. Recommend keeping her hemoglobin above 8.0 given her coronary disease.. The patient does not wish to return to [facility] for any further care, and wishes to go to the [facility] should she be deemed a candidate for mitral valve repair surgery. 2. Coronary artery disease: The patient had a repeat catheterization on 06/29/2019 at [facility] and required balloon angioplasty only of her in-stent restenosis to her LAD. Prior to any mitral valve repair surgery she may require repeat catheterization. I would hold off on doing this given her recent retroperitoneal bleed. In the meantime she will continue baby aspirin and Plavix for now unless her retroperitoneal bleed is worsening. 3. COPD: The patient has known COPD the extent of which is unknown at this time. The patient will require full pulmonary function test prior to any evaluation for mitral valve repair. If she has severe COPD which may prohibit her from going on the ventilator, then the only other option would be evaluation for mitral valve clipping to mitigate her mitral vegetation. PFTs to follow on Monday. 4. Hyperlipidemia: Recommend obtaining a fast lipid profile. Continue Lipitor therapy. 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 Code Visit Inpatient E&M: 02031 Subs Hosp L2
--- NOTE | 2019-07-14 11:23 | CT_ITS ---
We are attempting to reach an attending provider to discuss findings. An addendum with communication details will be sent when the communication is complete. STUDY: CT ABDOMEN AND PELVIS WITHOUT CONTRAST REASON FOR EXAM: Female, 63 years old. R/O RETROPERITONEAL BLEED. RECENT RIGHT FEMORAL APPROACH . DROPPING HEMOGLOBIN RADIATION DOSAGE (If Supplied By Facility): CTDIvol = ( 15.42 ) mGy, DLP = ( 816.81 ) mGycm TECHNIQUE: Transaxial images were obtained from the dome of the diaphragm to the symphysis pubis without oral contrast, and without intravenous contrast. Sagittal and coronal images were reconstructed. Individualized dose optimization techniques were used for this CT. COMPARISON: None. FINDINGS: Bilateral pleural effusions. The visualized portions of the heart are within normal limits. Small hiatal hernia. Normal liver. The gallbladder is contracted. There are multiple benign calcified granulomata of the spleen. Normal pancreas. Indeterminate 15 mm left adrenal nodule. Consider 12 month follow-up adrenal CT or MRI. Right renal atrophy. Normal left kidney. Normal visualized stomach. Normal small intestine. Normal colon. The appendix is visualized and appears normal. Normal abdominal aorta. Normal inferior vena cava. Retroperitoneal hemorrhage is present on the right. A 4.2 x 1.9 cm collection is noted at the level of the pelvic inlet on image 127 of series 2. A 3.5 x 3.1 cm collection is present near the right quadratus lumborum muscle on image 96. Right retroperitoneal stranding is noted extensively. Normal urinary bladder. Fat-containing left inguinal hernia. Post traumatic changes involving the left abdominal wall subcutaneous fat. Normal osseous structures. CT/Abdomen/Pelvis without Cont IMPRESSION: Retroperitoneal hemorrhage on the right as described above. Electronically Signed: Jacob Alicea MD at 13:24 EST Tel , Service support ,
[2019-07-14] MEDS: Ketorolac 15 MG/ML Vial IV (11:29)
--- NOTE | 2019-07-14 11:35 | PCM.PROGNOTE ---
Patient Problems: Active and Suspected Problems (Last Reviewed 03/19/19 @ 12:44 by Karin Clayton) Acute respiratory failure with hypoxia (Acute) COPD exacerbation (Acute) CHF exacerbation (Acute) Subjective: Patient seen and examined. Denies shortness of breath, chest pain. Complains of headache. Denies other complaints. - Physical Exam Vitals/I&O's: Vital Signs Temp Pulse Resp BP Pulse Ox 98.3 F 94 18 115/62 96 07/14/19 09:00 07/14/19 10:12 07/14/19 10:12 07/14/19 09:12 07/14/19 09:00 Oxygen Flow Rate (L/min) 1 Oxygen Delivery Method Room Air Weight: 166 lb 7.184 oz Body Mass Index (BMI) 34.2 Intake and Output for Last 24 Hours 07/12/19 07/13/19 07/14/19 23:59 23:59 23:59 Intake Total 1300 / 1300 1210 / 1210 Output Total 400 / 400 700 / 700 900 / 900 Balance 900 / 900 510 / 510 -900 / -900 General: Alert, Oriented x3, Cooperative HEENT: Atraumatic, PERRLA, EOMI, Normocephalic Neck: Supple, No JVD, Negative Carotid Bruits Lungs: Clear to auscultation, Diminished Cardiovascular: Regular rate, Regular Rhythm, Normal S1, Normal S2, Murmur Abdomen: Bowel Sounds Present, Soft, Non Tender, Non-Distended Extremities: No clubbing, No cyanosis, No edema, Capillary Refill Less than 3 Seconds Skin: No rashes, No breakdown Musculoskeletal: No Tenderness to Palpation of Joints or Extremities Neurological: Cranial nerves II-XII grossly intact, Neuro grossly intact Psych/Mental Status: Normal Affect, Appropriate Microbiology Past 72 Hours 07/12/19 06:52 Mucosa - Nasopharyngeal Respiratory Panel (PCR) - Final Laboratory Results 07/13/19 11:28: POC Glucose 296 H 07/13/19 16:40: POC Glucose 150 H 07/13/19 20:23: POC Glucose 128 H 07/14/19 05:15: WBC 15.0 H, RBC 2.99 L, Hgb 8.7 L, Hct 27.7 L, MCV 92.6, MCH 29.1, MCHC 31.4 L, RDW Std Deviation 50.4 H, RDW Coeff of Jade 15.2 H, Plt Count 513 H, MPV 9.5 07/14/19 05:15: Sodium 141, Potassium 3.5, Chloride 107, Carbon Dioxide 28.0, Anion Gap 6, BUN 49 H, Creatinine 2.43 H, Estim Creat Clear Calc 28.24, Est GFR (MDRD) Af Amer 26 L, Est GFR (MDRD) Non-Af 21 L, BUN/Creatinine Ratio 20.2 H, Glucose 127 H, Calcium 8.4 L 07/14/19 06:31: POC Glucose 113 H 07/14/19 07:47: POC Glucose 119 H Current Medications Acetaminophen (Tylenol) 650 mg PO Q6H PRN PRN PRN Reason: Pain Score 1-10/Temp > 100.7 F Last Admin: 07/14/19 08:02 Dose: 650 mg Documented by: Al Hydroxide/Mg Hydroxide (Mylanta Ii) 30 ml PO Q6H PRN PRN PRN Reason: Gastric Burning Albuterol Sulfate (Ventolin Aerosols) 2.5 mg INHALATION Q2H PRN PRN PRN Reason: Dyspnea, wheezing Last Admin: 07/12/19 16:49 Dose: 2.5 mg Documented by: Albuterol/Ipratropium (Duoneb) 3 ml INHALATION Q4HWA.RT [facility] Last Admin: 07/14/19 10:12 Dose: 3 ml Documented by: Aspirin (Aspirin, Baby) 81 mg PO DAILY@0800 [facility] Last Admin: 07/14/19 08:00 Dose: 81 mg Documented by: Atorvastatin Calcium (Lipitor) 80 mg PO QHS [facility] Last Admin: 07/13/19 20:29 Dose: 80 mg Documented by: Buspirone HCl (Buspar) 20 mg PO TID [facility] Last Admin: 07/14/19 06:33 Dose: 20 mg Documented by: Clopidogrel Bisulfate (Plavix) 75 mg PO DAILY [facility] Last Admin: 07/14/19 09:12 Dose: 75 mg Documented by: Furosemide (Lasix) 80 mg PO BID@1000,1800 [facility] Last Admin: 07/14/19 09:12 Dose: 80 mg Documented by: Glucagon () 1 mg IM .X1 PRN PRN Reason: Hypoglycemia Guaifenesin (Robitussin) 20 ml PO Q4H PRN PRN PRN Reason: COUGH Heparin Sodium (Porcine) (Heparin Na) 5,000 unit SC Q12 [facility] Last Admin: 07/14/19 09:11 Dose: 5,000 unit Documented by: Hydralazine HCl (Apresoline Iv) 10 mg IV Q4H PRN PRN PRN Reason: SBP > 160 Dextrose (Dextrose 10%-Water) 250 mls @ 999 mls/hr IV .Q16M PRN; Protocol PRN Reason: HYPOGLYCEMIA Sodium Chloride () 250 mls @ 15 mls/hr IV .[id number] PRN PRN Reason: Saline Flush Sodium Chloride () 250 mls @ 15 mls/hr IV .[id number] PRN PRN Reason: Additional IVPB Infusion Insulin Glargine (Lantus (Bk)) 35 units SC BID [facility] Last Admin: 07/14/19 09:11 Dose: 35 u Documented by: Insulin Human Lispro (Humalog Kwikpen (Bk)) 0 unit SC ACHS [facility]; Protocol Last Admin: 07/14/19 11:34 Dose: Not Given Documented by: Insulin Human Lispro (Humalog Kwikpen (Bk)) 15 unit SC TIDCM [facility] Last Admin: 07/14/19 11:34 Dose: Not Given Documented by: Magnesium Hydroxide (Milk Of Magnesia) 30 ml PO DAILY PRN PRN PRN Reason: Constipation Melatonin (Melatonin) 6 mg PO QHS PRN PRN PRN Reason: INSOMNIA Last Admin: 07/13/19 20:28 Dose: 6 mg Documented by: Metoprolol Succinate (Toprol Xl (Beta Kristy)) 25 mg PO DAILY [facility] Last Admin: 07/14/19 09:12 Dose: 25 mg Documented by: Morphine Sulfate () 2 mg IV Q3H PRN PRN PRN Reason: Pain Score 6-10/10 Nitroglycerin (Nitrostat) 0.4 mg SUBLINGUAL Q5M PRN PRN Reason: CARDIAC/CHEST PAIN Ondansetron HCl (Zofran) 4 mg IV Q8H PRN PRN PRN Reason: NAUSEA/VOMITING Oxycodone HCl (Oxyir) 5 mg PO Q4H PRN PRN PRN Reason: Pain Score 4-5/10 Pantoprazole Sodium (Protonix) 20 mg PO BID [facility] Last Admin: 02/16/20 09:12 Dose: 20 mg Documented by: Prednisone () 40 mg PO DAILY@0800 [facility] Stop: 07/19/19 08:01 Last Admin: 07/14/19 08:03 Dose: 40 mg Documented by: Prochlorperazine Edisylate (Compazine Iv) 5 mg IV Q4H PRN PRN PRN Reason: Breakthrough Nausea/Vomiting Psyllium Hydrophilic Mucilloid (Metamucil) 1 packet PO DAILY PRN PRN PRN Reason: Constipation Senna/Docusate Sodium (Senokot-S, Brook-Colace) 2 tablet PO BID PRN PRN PRN Reason: Constipation Sertraline HCl (Zoloft) 50 mg PO DAILY [facility] Last Admin: 07/14/19 09:12 Dose: 50 mg Documented by: Sodium Chloride () 10 - 40 ml IV UD PRN PRN Reason: SALINE FLUSH Last Admin: 07/14/19 11:29 Dose: 10 ml Documented by: Sodium Chloride ([place] Nasal Etters) 2 spray NASAL TID PRN PRN PRN Reason: NASAL DRYNESS Throat Lozenges (Cepacol Sore Throat Lozenge) 1 lozenge MUCOUS MEM Q2H PRN PRN PRN Reason: SORE THROAT Medical Necessity - Tobacco Use Smoking Status: Former smoker Tobacco Use: Non-smoker Assessment/Plan All Active Problems (Last Reviewed 03/19/19 @ 12:44 by Karin Clayton) Acute respiratory failure with hypoxia (Acute) COPD exacerbation (Acute) CHF exacerbation (Acute) History of coronary artery stent placement (Resolved 05/18/18) Acute exacerbation of CHF (congestive heart failure) (Resolved) COPD exacerbation (Resolved) Chronic ulcer of buttock (Resolved) Flash pulmonary edema (Resolved) 1. Acute hypoxic respiratory failure secondary to acute on chronic combined systolic and diastolic CHF and COPD exacerbation-continue supplemental oxygen to maintain O2 at or above 90%. 2. Acute on chronic combined systolic and diastolic CHF-BNP greater than 2700. Chest x-ray consistent with CHF. Strict I&O. Daily weight. Echocardiogram demonstrates an EF of 45%, stage I diastolic dysfunction, severe mitral valve insufficiency, moderate tricuspid valve insufficiency, moderate pulmonary hypertension with RVSP 55 mmHg. DC IV Lasix, transition to oral Lasix 80 mg twice daily per cardiology. 2. Acute exacerbation of COPD-continue supplement oxygen as noted above. Albuterol and DuoNeb aerosols. Respiratory panel negative. Sputum culture ordered. Discontinue IV Solu-Medrol. Transition to oral prednisone X5 days. 3. Indeterminate cardiac enzymes, recent NSTEMI-cardiology consulted. Plan for continued medical management. Recent [facility] cardiac catheterization with balloon angioplasty to in-stent stenosis proximal LAD and ostium of the diagonal. Continue aspirin, statin, Plavix, beta-kristy. 4. Acute kidney injury on chronic kidney disease stage III-Trend BMP. Renal ultrasound demonstrates severe atrophy of the right kidney. No other abnormalities. 5. Lactic acidosis-suspect secondary to #1. No evidence of infectious etiology. Urinalysis unremarkable. CXR without infiltrate. 6. Type 2 diabetes mellitus-uncontrolled. Recent hemoglobin A1c 11.9%. Accu-Cheks with sliding scale insulin. 7. Anxiety with depression-continue home BuSpar and sertraline regimen. 8. Carotid artery disease status post right CEA-continue outpatient follow-up for left-sided stenosis. Continue aspirin, Plavix, statin. 9. Hypertension-stable, continue metoprolol regimen. 10. Hyperlipidemia-continue statin. 11. Obesity-encouraged diet lifestyle indications. 12. Former tobacco use-encouraged continued cessation. 13. History of CVA-continue aspirin, Plavix, statin, BP regimen. 14. Valvular heart disease-as noted per echo. Cardiology recommending mitral valve repair and/or tricuspid valve repair given repeat exacerbations of CHF. Close outpatient follow-up for evaluation for valve repair. Patient wishes to follow with [facility] for valve repair. DVT prophylaxis-heparin subcu Discharge planning: Patient requesting SNF at discharge. Plan for SNF pending medically stable and pre-cert. This patient was seen by ORIN Hadley under the supervision of Dr. Isaac.
[2019-07-14 11:36] LABS: Bedside Glucose 83 mg/dL (70-110)
[2019-07-14] MEDS: Morphine 2 MG/ML Syringe IV (13:00)
[2019-07-14] MEDS: Acetaminophen/Butalbital/Caffe 1 Tablet 2 TABLET PO (14:31)
[2019-07-14] MEDS: Hydrocortisone 2.5% Crm 1 APPLIC TOPICAL (16:52)
[2019-07-14] MEDS: Insulin Lispro 100 UNIT/ML INSULN.PEN SC ×2 (16:53→20:04)
[2019-07-14 17:16] LABS: Bedside Glucose 274 mg/dL (70-110)
[2019-07-14] MEDS: Atorvastatin Calcium 80 MG Tablet PO (20:08)
[2019-07-14] MEDS: MELATONIN 3 MG TABLET 6 MG PO (20:13)
[2019-07-14 22:16] LABS: Bedside Glucose 217 mg/dL (70-110)
[2019-07-15] VITALS (14 sets, daily range): BP systolic 113–147; BP diastolic 58–84; PULSE 72–97; RESP 14–20; TEMP 36.6–36.8; O2SAT 95–98
[2019-07-15 05:58] LABS: Hematocrit 27.6 % (37-47); Hemoglobin 8.6 g/dL (12.0-15.0); Mean Corp Hgb Conc 31.2 g/dL (32-36); Mean Corpuscular Hgb 28.8 pg (27.0-32.0); Mean Corpuscular Volume 92.3 fL (81-99); Mean Platelet Vol. 9.6 fl (6.2-12.0); Platelet Count 510 K/mm3 (150-450); RBC Distribution Width CV 15.2 % (11.6-14.6); Red Blood Count 2.99 M/mm3 (4.2-5.4); White Blood Count 12.2 K/mm3 (4.4-11.0)
[2019-07-15 06:25] LABS: Anion Gap 9 (5-15); BUN 53 mg/dL (7-18); Calcium,Total 8.6 mg/dL (8.5-10.1); Chloride 105 mmol/L (98-107); Creatinine, Serum 2.41 mg/dL (0.55-1.02); EST Glomerular Filtration Rate 22 mL/min (>60); Est Glom Filt Rate - Afr Amer 26 mL/min (>60); Estimated Creatinine Clearance 28.74 ml/min; Glucose 93 mg/dL (74-106); Potassium 3.6 mmol/L (3.5-5.1); Sodium Level 140 mmol/L (136-145)
--- NOTE | 2019-07-15 06:30 | CPS ---
Spoke with Chel (pt's RN) to discuss PFT ordered for today at 0800. Out Patient PFT schedule is booked today, earliest testing could be done is 2pm unless there's a NO SHOW/cancellation. If the patient is not being d/c'd or transferred today, her test could be performed at 0700 tomorrow (Monday) morning. Chel will communicate this thru to day shift staff. (I did not see any documentation stating possible transfer date) My extension today is [phone] if questions.
[2019-07-15] MEDS: busPIRone 5 MG Tablet 20 MG PO ×3 (06:32→21:14)
[2019-07-15 06:45] LABS: Bedside Glucose 87 mg/dL (70-110)
[2019-07-15] MEDS: oxyCODONE 5 MG Tablet PO ×2 (08:49→13:44)
[2019-07-15] MEDS: Acetaminophen 325 MG Tablet 650 MG PO (08:49)
[2019-07-15] MEDS: Aspirin 81 MG TAB.CHEW PO (08:50)
[2019-07-15] MEDS: Metoprolol(XL)Succ 25 MG Tablet PO (08:51)
[2019-07-15] MEDS: predniSONE 20 MG Tablet 40 MG PO (08:51)
[2019-07-15] MEDS: Clopidogrel Bisulfate 75 MG Tablet PO (08:51)
[2019-07-15] MEDS: Furosemide 80 MG Tablet PO ×2 (08:51→17:34)
[2019-07-15] MEDS: Sertraline 50 MG Tablet PO (08:52)
[2019-07-15] MEDS: Pantoprazole Sodium 20 MG Tablet PO ×2 (08:52→21:13)
[2019-07-15 09:51] LABS: Bedside Glucose 75 mg/dL (70-110)
--- NOTE | 2019-07-15 10:18 | PCM.PN.CARD ---
Subjectve: Patient seen and examined, complains of being dizzy particularly with sitting in a chair but also with laying down flat. Abdominal pain has improved but not completely resolved. No chest pain or anginal symptoms. Objective: Vital Signs Temp Pulse Resp BP Pulse Ox 97.8 F 91 14 129/84 H 98 07/15/19 08:55 07/15/19 08:55 07/15/19 08:55 07/15/19 08:55 07/15/19 08:55 Oxygen Flow Rate (L/min) 1 Oxygen Delivery Method Room Air Weight: 167 lb 15.876 oz Body Mass Index (BMI) 34.2 Intake and Output for Last 24 Hours 07/13/19 07/14/19 07/15/19 23:59 23:59 23:59 Intake Total 1210 / 1210 640 / 640 120 / 120 Output Total 700 / 700 1650 / 1650 500 / 500 Balance 510 / 510 -1010 / -1010 -380 / -380 General: Awake, Alert, Oriented x 3 HEENT: PERRL, EOMI, Sclera Non Icteric Neck: Supple, Good ROM, No Lymph Node Enlargement Lungs: Clear to auscultation Cardiovascular: Regular Rhythm, Normal S2, No Rubs, No Gallops Murmur Murmur: Grade 3/6, Holosystolic Vascular: No Carotid Bruits, Normal Femoral Pulses, Normal Radial Pulses, Normal Dorsalis Pedal Pulse, Normal Posterior Tibial Pulses Abdomen: Bowel Sounds Present, Soft, Non Tender, No HSM, No Organomegaly Extremities: No Cyanosis, No Clubbing, No edema Neurological: No Focal Motor or Sensory Deficit 07/15/19 05:30: WBC 12.2 H, RBC 2.99 L, Hgb 8.6 L, Hct 27.6 L, MCV 92.3, MCH 28.8, MCHC 31.2 L, Plt Count 510 H, MPV 9.6 07/15/19 05:30: Sodium 140, Potassium 3.6, Chloride 105, Carbon Dioxide 26.0, Anion Gap 9, BUN 53 H, Creatinine 2.41 H, Est GFR (MDRD) Af Amer 26 L, Est GFR (MDRD) Non-Af 22 L, BUN/Creatinine Ratio 22.0 H, Glucose 93, Calcium 8.6 Rhythm: EKG: ECHO: Stress Test: Cardiac Cath: PCI: CT Surgery: Holter monitor: EPS: PPM: CXR: Chest CT Scan: Medical Necessity - Tobacco Use Smoking Status: Former smoker Tobacco Use: Non-smoker Assessment/Plan 1. Ischemic cardiomyopathy: The patient has presented several times in the last 12 months with repeated episodes of congestive heart failure symptoms most likely a result of her severe mitral regurgitation and moderate to severe pulmonary hypertension. In addition she has concomitant multivessel coronary artery disease requiring multivessel stenting approximately 1 year ago. Patient's repeat catheterization here at [facility] on 07/11/18 demonstrated essentially widely patent LAD and left circumflex stent, and known occluded right coronary artery. The patient had been set up for [facility] evaluation for mitral valve repair, but unfortunately was unable to attend those visits due to various reasons. Patient now returns with congestive heart failure symptoms requiring repeat catheterization and balloon angioplasty at [facility] on 06/29/2019. She was recently discharged and now returns with congestive heart failure exacerbation. It appears the patient has reached the end point of maximal medical therapy with respect to her might regurgitation and pulmonary hypertension. I believe the patient requires mitral valve repair and/or tricuspid valve repair to mitigate her repeated episodes of congestive heart failure. However given her recent admission with retroperitoneal bleed, and the unknown severity of her COPD, we will hold off on transferring her to [facility] at this time. In addition, the patient wishes to go to the [facility] should any mitral valve repair be indicated. Now that the patient was able to lay down flat, the patient was changed to Lasix 80 mg p.o. twice daily yesterday, and appears to be tolerating that well.. In addition once her lungs are completely dried out, I would recommend pulmonary function test to determine her candidacy for open mitral valve repair versus evaluation for mitral valve clipping. Her chest x-ray demonstrates bilateral pulmonary edema but no evidence of pleural effusions but does show bilateral pulmonary vascular congestion. CT scan of her abdomen and pelvis yesterday demonstrated resolving right pelvic retroperitoneal hematoma, right atrophic kidney, normal left kidney, and significant amount of stool. Her abdominal pain may be secondary to significant amount of stool. The patient does not wish to return to [facility] for any further care, and wishes to go to the [facility] should she be deemed a candidate for mitral valve repair surgery. Agree with Dr. Azul Arias to transfer the patient to [facility] for further rehabilitative care. The patient is not in any condition to undergo a major mitral valve repair surgery at this time. 2. Coronary artery disease: The patient had a repeat catheterization on 06/29/2019 at [facility] and required balloon angioplasty only of her in-stent restenosis to her LAD. Prior to any mitral valve repair surgery she may require repeat catheterization. I would hold off on doing this given her recent retroperitoneal bleed. In the meantime she will continue baby aspirin and Plavix for now unless her retroperitoneal bleed is worsening. 3. COPD: The patient has known COPD the extent of which is unknown at this time. The patient will require full pulmonary function test prior to any evaluation for mitral valve repair. If she has severe COPD which may prohibit her from going on the ventilator, then the only other option would be evaluation for mitral valve clipping to mitigate her mitral vegetation. PFTs to be done as an outpatient. 4. Hyperlipidemia: Recommend obtaining a fast lipid profile. Continue Lipitor therapy. 5. Would recommend continuing monitoring tech until discharge. Code Visit Inpatient E&M: 31742 Subs Hosp L2
[2019-07-15 11:26] LABS: Bedside Glucose 143 mg/dL (70-110)
[2019-07-15] MEDS: Ipratropium/Albuterol Sulfate 3 ML AMPUL.NEB INHALATION ×3 (11:39→19:42)
--- NOTE | 2019-07-15 11:45 | CPS ---
Inpatient PFT orders cancelled per Dr. Vazquez, PFTs to be done as an outpatient
--- NOTE | 2019-07-15 11:47 | CASEMGMT ---
[facility] spoke with patient and she would like to go to [facility]. [facility] faxed referral and also called leaving voice mail with referral. Awhile later SW received a voice mail from Beatriz at [facility] and they can accept patient. She said they only have a semi-private room available. JAX let patient know and she is okay with a semi-private room. JAX left Beatriz a voice mail letting her know to start the pre-cert. Plan: [facility] pending insurance approval. Shanique CONNOR MSW
[2019-07-15] MEDS: Insulin Lispro 100 UNIT/ML INSULN.PEN 15 UNIT SC ×2 (12:41→17:35)
[2019-07-15] MEDS: Acetaminophen/Butalbital/Caffe 1 Tablet 2 TABLET PO ×2 (14:47→21:12)
[2019-07-15 17:21] LABS: Bedside Glucose 212 mg/dL (70-110)
[2019-07-15] MEDS: Insulin Lispro 100 UNIT/ML INSULN.PEN SC (17:35)
--- NOTE | 2019-07-15 20:38 | PCM.PROGNOTE ---
Patient Problems: Active and Suspected Problems (Last Reviewed 03/19/19 @ 12:44 by Karin Clayton) Acute respiratory failure with hypoxia (Acute) COPD exacerbation (Acute) CHF exacerbation (Acute) Subjective: Patient was seen and examined today, she continues to complain of an intermittent headache, I have placed her on Fioricet every 6 hours as needed for headache. Patient refused to get out of bed today for physical therapy due to her headache, I explained to her that she has to participate with physical therapy in order to have the best chance at being transferred to a shelter facility. I got records from [facility] concerning the patient's retroperitoneal hematoma, unfortunately they did not give a size for the hematoma, it appears that the patient's hemoglobin at the time of discharge from [facility] was 9.2. This was similar to her hemoglobin when she was admitted to the hospital here. Patient's hemoglobin today was 8.6. Creatinine was virtually unchanged from yesterday. - Physical Exam Vitals/I&O's: Vital Signs Temp Pulse Resp BP Pulse Ox 97.9 F 85 18 147/58 H 98 07/15/19 15:05 07/15/19 19:42 07/15/19 19:42 07/15/19 15:05 07/15/19 15:05 Oxygen Flow Rate (L/min) 1 Oxygen Delivery Method Room Air Weight: 76.2 kg Body Mass Index (BMI) 34.2 Intake and Output for Last 24 Hours 07/13/19 07/14/19 07/15/19 23:59 23:59 23:59 Intake Total 1210 / 1210 640 / 640 1297 / 1297 Output Total 700 / 700 1650 / 1650 1400 / 1400 Balance 510 / 510 -1010 / -1010 -103 / -103 General: Alert, Oriented x3, Cooperative, No apparent distress, Well developed HEENT: Atraumatic, PERRLA, EOMI, Normocephalic Oral: Moist Mucosa Neck: Supple, Trachea Midline, Thyroid Normal Size and Texture Lungs: Clear to auscultation, Normal air movement, No rhonchi, No wheeze Cardiovascular: Regular rate, Regular Rhythm, Normal S1, Normal S2, No murmurs, PMI Normal, No rub noted, No Gallop Abdomen: Bowel Sounds Present, Soft, Non Tender, Non-Distended Extremities: No clubbing, No cyanosis, No edema, Capillary Refill Less than 3 Seconds Skin: No rashes, No breakdown Musculoskeletal: No Tenderness to Palpation of Joints or Extremities Neurological: Cranial nerves II-XII grossly intact, Neuro grossly intact, Sensory exam intact to light touch and pain Psych/Mental Status: Normal Affect, Appropriate, Alert and oriented to time, place, person, mood and affect Laboratory Results 07/14/19 19:58: POC Glucose 217 H 07/15/19 05:30: WBC 12.2 H, RBC 2.99 L, Hgb 8.6 L, Hct 27.6 L, MCV 92.3, MCH 28.8, MCHC 31.2 L, RDW Std Deviation 51.0 H, RDW Coeff of Jade 15.2 H, Plt Count 510 H, MPV 9.6 07/15/19 05:30: Sodium 140, Potassium 3.6, Chloride 105, Carbon Dioxide 26.0, Anion Gap 9, BUN 53 H, Creatinine 2.41 H, Estim Creat Clear Calc 28.74, Est GFR (MDRD) Af Amer 26 L, Est GFR (MDRD) Non-Af 22 L, BUN/Creatinine Ratio 22.0 H, Glucose 93, Calcium 8.6 07/15/19 06:31: POC Glucose 87 07/15/19 08:31: POC Glucose 75 07/15/19 11:19: POC Glucose 143 H 07/15/19 17:12: POC Glucose 212 H Current Medications Acetaminophen (Tylenol) 650 mg PO Q6H PRN PRN PRN Reason: Pain Score 1-10/Temp > 100.7 F Last Admin: 07/15/19 08:49 Dose: 650 mg Documented by: Acetaminophen/Butalbital/Caffeine (Fioricet) 2 tablet PO Q6H PRN PRN PRN Reason: HEADACHE Last Admin: 07/15/19 14:47 Dose: 2 tablet Documented by: Al Hydroxide/Mg Hydroxide (Mylanta Ii) 30 ml PO Q6H PRN PRN PRN Reason: Gastric Burning Albuterol Sulfate (Ventolin Aerosols) 2.5 mg INHALATION Q2H PRN PRN PRN Reason: Dyspnea, wheezing Last Admin: 07/12/19 16:49 Dose: 2.5 mg Documented by: Albuterol/Ipratropium (Duoneb) 3 ml INHALATION Q4HWA.RT [facility] Last Admin: 07/15/19 19:42 Dose: 3 ml Documented by: Aspirin (Aspirin, Baby) 81 mg PO DAILY@0800 [facility] Last Admin: 07/15/19 08:50 Dose: 81 mg Documented by: Atorvastatin Calcium (Lipitor) 80 mg PO QHS [facility] Last Admin: 07/14/19 20:08 Dose: 80 mg Documented by: Buspirone HCl (Buspar) 20 mg PO TID [facility] Last Admin: 07/15/19 12:40 Dose: 20 mg Documented by: Clopidogrel Bisulfate (Plavix) 75 mg PO DAILY [facility] Last Admin: 07/15/19 08:51 Dose: 75 mg Documented by: Furosemide (Lasix) 80 mg PO BID@1000,1800 [facility] Last Admin: 07/15/19 17:34 Dose: 80 mg Documented by: Glucagon () 1 mg IM .X1 PRN PRN Reason: Hypoglycemia Guaifenesin (Robitussin) 20 ml PO Q4H PRN PRN PRN Reason: COUGH Hydralazine HCl (Apresoline Iv) 10 mg IV Q4H PRN PRN PRN Reason: SBP > 160 Hydrocortisone (Hytone) 1 applic TOPICAL BID PRN PRN; Protocol PRN Reason: Itching/Rash Last Admin: 07/14/19 16:52 Dose: 1 applic Documented by: Dextrose (Dextrose 10%-Water) 250 mls @ 999 mls/hr IV .Q16M PRN; Protocol PRN Reason: HYPOGLYCEMIA Sodium Chloride () 250 mls @ 15 mls/hr IV .[id number] PRN PRN Reason: Saline Flush Sodium Chloride () 250 mls @ 15 mls/hr IV .[id number] PRN PRN Reason: Additional IVPB Infusion Insulin Glargine (Lantus (Bkc)) 35 units SC BID [facility] Last Admin: 07/15/19 08:49 Dose: 35 u Documented by: Insulin Human Lispro (Humalog Kwikpen (Bkc)) 0 unit SC ACHS [facility]; Protocol Last Admin: 07/15/19 17:35 Dose: 6 u Documented by: Insulin Human Lispro (Humalog Kwikpen (Bkc)) 15 unit SC TIDCM [facility] Last Admin: 07/15/19 17:35 Dose: 15 u Documented by: Magnesium Hydroxide (Milk Of Magnesia) 30 ml PO DAILY PRN PRN PRN Reason: Constipation Melatonin (Melatonin) 6 mg PO QHS PRN PRN PRN Reason: INSOMNIA Last Admin: 07/14/19 20:13 Dose: 6 mg Documented by: Metoprolol Succinate (Toprol Xl (Beta Kristy)) 25 mg PO DAILY [facility] Last Admin: 07/15/19 08:51 Dose: 25 mg Documented by: Nitroglycerin (Nitrostat) 0.4 mg SUBLINGUAL Q5M PRN PRN Reason: CARDIAC/CHEST PAIN Non-Formulary Medication (Mometasone Furoate [Elocon]) 0 gm TOPICAL DAILY [facility] Ondansetron HCl (Zofran) 4 mg IV Q8H PRN PRN PRN Reason: NAUSEA/VOMITING Oxycodone HCl (Oxyir) 5 mg PO Q4H PRN PRN PRN Reason: Pain Score 4-5/10 Last Admin: 07/15/19 13:44 Dose: 5 mg Documented by: Pantoprazole Sodium (Protonix) 20 mg PO BID [facility] Last Admin: 07/15/19 08:52 Dose: 20 mg Documented by: Prednisone () 40 mg PO DAILY@0800 [facility] Stop: 07/19/19 08:01 Last Admin: 07/15/19 08:51 Dose: 40 mg Documented by: Prochlorperazine Edisylate (Compazine Iv) 5 mg IV Q4H PRN PRN PRN Reason: Breakthrough Nausea/Vomiting Psyllium Hydrophilic Mucilloid (Metamucil) 1 packet PO DAILY PRN PRN PRN Reason: Constipation Senna/Docusate Sodium (Senokot-S, [place]-Colace) 2 tablet PO BID PRN PRN PRN Reason: Constipation Sertraline HCl (Zoloft) 50 mg PO DAILY [facility] Last Admin: 07/15/19 08:52 Dose: 50 mg Documented by: Sodium Chloride () 10 - 40 ml IV UD PRN PRN Reason: SALINE FLUSH Last Admin: 07/14/19 13:02 Dose: 10 ml Documented by: Sodium Chloride ([place] Nasal [place]) 2 spray NASAL TID PRN PRN PRN Reason: NASAL DRYNESS Throat Lozenges (Cepacol Sore Throat Lozenge) 1 lozenge MUCOUS MEM Q2H PRN PRN PRN Reason: SORE THROAT Medical Necessity - Tobacco Use Smoking Status: Former smoker Tobacco Use: Non-smoker Assessment/Plan All Active Problems (Last Reviewed 03/19/19 @ 12:44 by Karin Clayton) Acute respiratory failure with hypoxia (Acute) COPD exacerbation (Acute) CHF exacerbation (Acute) History of coronary artery stent placement (Resolved 05/18/18) Acute exacerbation of CHF (congestive heart failure) (Resolved) COPD exacerbation (Resolved) Chronic ulcer of buttock (Resolved) Flash pulmonary edema (Resolved) #1 acute hypoxic respiratory failure secondary to acute on chronic combined systolic and diastolic CHF along with COPD exacerbation, continue present treatment-patient remains on room air at this time #2 acute exacerbation of COPD-continue present treatment #3 anemia-probably secondary to retroperitoneal bleed-this appears to be stable at this time she does not appear to be actively hemorrhaging #4 acute kidney injury on chronic kidney disease stage III-patient's creatinine is currently stable at this time #5 type 2 [id number] secondary to patient noncompliance, continue to monitor blood sugar #6 anxiety and depression-continue present medications #7 generalized headache-probably secondary to muscle tension headache, continue Fioricet as needed #8 essential hypertension #7 class I obesity #8 valvular heart disease-mitral valve-patient will need to make arrangements for mitral valve repair as an outpatient, she is currently scheduled to go to a shelter facility for inpatient rehab services #9 General debility-secondary to multiple medical problems as outlined above-PT and OT are seeing the patient, she will need placement in a shelter facility #10 ischemic cardiomyopathy Code Visit Inpatient E&M: 36973 Subs Hosp L2
[2019-07-15] MEDS: Atorvastatin Calcium 80 MG Tablet PO (21:12)
[2019-07-15] MEDS: MELATONIN 3 MG TABLET 6 MG PO (21:12)
[2019-07-15 21:35] LABS: Bedside Glucose 113 mg/dL (70-110)
[2019-07-16] VITALS (8 sets, daily range): BP systolic 107–120; BP diastolic 64–74; PULSE 76–92; RESP 14–18; TEMP 36.7–36.8; O2SAT 96–99
[2019-07-16] MEDS: busPIRone 5 MG Tablet 20 MG PO (06:10)
[2019-07-16 07:06] LABS: Bedside Glucose 90 mg/dL (70-110)
[2019-07-16] MEDS: Ipratropium/Albuterol Sulfate 3 ML AMPUL.NEB INHALATION ×2 (07:29→10:39)
[2019-07-16] MEDS: Insulin Lispro 100 UNIT/ML INSULN.PEN 15 UNIT SC ×2 (08:39→12:13)
[2019-07-16] MEDS: Aspirin 81 MG TAB.CHEW PO (08:39)
[2019-07-16] MEDS: predniSONE 20 MG Tablet 40 MG PO (08:40)
[2019-07-16] MEDS: Furosemide 80 MG Tablet PO (08:41)
[2019-07-16] MEDS: Pantoprazole Sodium 20 MG Tablet PO (08:42)
[2019-07-16] MEDS: Metoprolol(XL)Succ 25 MG Tablet PO (08:42)
[2019-07-16] MEDS: Clopidogrel Bisulfate 75 MG Tablet PO (08:42)
[2019-07-16] MEDS: Sertraline 50 MG Tablet PO (08:43)
[2019-07-16] MEDS: Acetaminophen/Butalbital/Caffe 1 Tablet 2 TABLET PO (08:47)
[2019-07-16 08:55] LABS: Bedside Glucose 121 mg/dL (70-110)
--- NOTE | 2019-07-16 09:43 | TREXTCA.CO_ITS ---
- Diet 07/12/19 05:40 Diet: Cardiac: Calorie-Controlled Food consistency:: Regular Liquid Consistency:: Regular/Thin How many daily calories?: 1800 calorie - Routine Orders/Code Status Enema Type: Fleetz Enema Frequency: Daily PRN Suppository Type: Dulcolax 10mg Suppository Frequency: Daily PRN O2 Liters per Minute: 2 O2 Frequency: PRN Keep PO Greater than or Equal to (%): 90 Routine Lab Work: - - BMP and CBC in 3 days, then once weekly Code Status: Full Code - Wound(s) L forearm previous IV site Wound Type: IV site infiltrated - Suggestions for Active Care Change Position every (hours): 2 Times a day to sit in chair: 3 - Therapies Physical Therapy: Eval and Treat Occupational Therapy: Eval and Treat - Problem/Diagnosis (1) Acute respiratory failure with hypoxia Status: Acute Current Visit: Yes (2) CHF exacerbation Status: Acute Current Visit: Yes (3) COPD exacerbation Status: Acute Current Visit: Yes (4) Acute on chronic combined systolic (congestive) and diastolic (congestive) heart failure Status: Acute Current Visit: Yes (5) Essential (primary) hypertension Status: Chronic Current Visit: No (6) Hyperlipidemia Status: Chronic Current Visit: No (7) Non-rheumatic tricuspid valve insufficiency Status: Chronic Current Visit: No (8) Nonrheumatic mitral (valve) insufficiency Status: Chronic Current Visit: No (9) History of coronary artery stent placement Status: Resolved Comment: PCI-JAZIEL-LAD w/ 2.0 x 30 mm and 2.5 x 34 mm Resolute [place] and PCI-JAZIEL-Mid LCx w/ Resolute [place] 2.0 x 30 mm and 2.0 x 22 mm Stent 05/18/2018 Current Visit: No - Allergies/Procedures Done in Hospital Allergies/Adverse Reactions: Allergies Penicillins Allergy (Severe, Verified 07/12/19 03:06) Swelling tolerated keflex in past with no issue Procedures: 2-D Echocardiogram - Type of Care/Length of Stay Estimated LOS: Convalescent Care Less Than 30 days Type of Care Needed: Skilled Rehab Potential: Fair Prognosis: Fair - Additional Orders/Day of Discharge H&P will serve as current which was dated: 07/12/19 Day of Discharge: 07/16/19 - Dietary and Speech Recommendations Dietitian Recommendations/Changes: Continue 1800 calorie cardiac diet w/1500 ml fluid restriction. Will provide magic cup or ensure pudding at meals to provide additional pro/sharon if consumed. - Follow Up Care Primary Care Physician: Evens Jimenez III, MD [Primary Care Provider] - Please follow up with your Primary Care Physician in: 1 Week Please Follow Up With: Charles Good MD When: 1-2 Weeks Please Follow Up With: Noemí Slaughter DO - Nephrology When: Call to establish for outpatient follow-up chronic kidney disease
--- NOTE | 2019-07-16 09:52 | CASEMGMT ---
[facility]AX received a voice mail from Beatriz at [facility] and patient was approved. SW notified patient, RN, STONEMASON APPRENTICE, auditor in charge, and data center engineer. Patient was going to see if any of her children can take her. Shanique MARTIN
--- NOTE | 2019-07-16 10:28 | PHA.DC.MR ---
Pharmacy Service has performed discharge medication reconciliation for this patient. The patient's discharge medication list was reviewed for discrepancies and discrepancies were resolved. Home Medications Insulin Lispro [Humalog KwikPen] 3 unit SQ TIDCM 12/20/17 Clopidogrel Bisulfate [Clopidogrel] 75 mg PO DAILY 05/24/18 [place]-3 Fatty Acids [[place]-3] 2,000 mg PO DAILY 05/24/18 Ergocalciferol (Vitamin D2) [Vitamin D2] 50,000 unit PO WE 06/11/18 Loratadine 10 mg PO DAILY PRN PRN 07/02/18 Insulin Glargine,Hum.rec.anlog [Basaglar Kwikpen U-100] 10 unit SQ QHS 07/24/18 buspirone 10 mg tablet 20 mg PO TID tab 08/15/18 sertraline 50 mg tablet 50 mg PO DAILY 08/17/18 Acetaminophen [Mapap] 1,300 mg PO BID PRN PRN 06/29/19 Aspirin [Aspirin, Baby] 81 mg PO DAILY@0800 07/12/19 Mometasone Furoate [Elocon] 45 gm TP DAILY 07/15/19 Atorvastatin Calcium [Lipitor] 40 mg PO QHS tab 07/16/19 Furosemide [Lasix] 80 mg PO BID@1000,1800 tab 07/16/19 Metoprolol(XL)Succ [Toprol Xl (Beta Kristy)] 25 mg PO DAILY tab 07/16/19 Pantoprazole Sodium [Protonix] 20 mg PO BID tab 07/16/19 predniSONE tablet 40 mg PO DAILY@0800 tab 07/16/19
--- NOTE | 2019-07-16 10:53 | PCM.DC.SUM ---
<Indu Royal - Last Filed: 07/16/19 11:16> Discharge Date and Diagnosis Date of Admission: 07/12/19 Date of Discharge: 07/16/19 - Primary Discharge Diagnosis Active and Suspected Problems (Last Reviewed 03/19/19 @ 12:44 by Karin Clayton) 1. Acute hypoxic respiratory failure secondary to acute on chronic combined systolic and diastolic CHF and COPD exacerbation 2. Acute on chronic combined systolic and diastolic CHF 2. Acute exacerbation of COPD 3. Indeterminate cardiac enzymes, recent NSTEMI 4. Acute kidney injury on chronic kidney disease stage III 5. Lactic acidosis-suspect secondary to #1. No evidence of infectious etiology. 6. Type 2 diabetes mellitus 7. Anxiety with depression 8. Carotid artery disease status post right CEA 9. Hypertension 10. Hyperlipidemia 11. Obesity 12. Former tobacco use 13. History of CVA 14. Valvular heart disease 15. Recent retroperitoneal bleed, stable - Secondary Discharge Diagnosis Chronic Problems (Last Reviewed 03/19/19 @ 12:44 by Karin Clayton) Chronic combined systolic and diastolic CHF (congestive heart failure) (Chronic) Former tobacco use (Chronic) Bilateral carotid artery stenosis (Chronic) RCEA and L carotid 70-80% stenosis Atherosclerosis of coronary artery of [place] heart without angina pectoris (Chronic) PCI-JAZIEL-LAD w/ 2.0 x 30 mm and 2.5 x 34 mm Resolute [place] and PCI-JAZIEL-Mid LCx w/ Resolute [place] 2.0 x 30 mm and 2.0 x 22 mm Stent 05/18/2018 Non-rheumatic tricuspid valve insufficiency (Chronic) Secondary pulmonary arterial hypertension (Chronic) Nonrheumatic mitral (valve) insufficiency (Chronic) CVA (cerebral vascular accident) (Chronic) Essential (primary) hypertension (Chronic) Hyperlipidemia (Chronic) Nicotine dependence (Chronic) Hospital Course and Treatment Imaging Results: Diagnostic Data Chest X-Ray 07/12/19 03:12 IMPRESSION: Cardiomegaly with evidence of congestive heart failure. at 0338 Reported and signed by: Priscila Brower MD Electronically Signed: Priscila Brower MD at 3:38 EST Tel , Service support , Renal Ultrasound 07/13/19 10:25 IMPRESSION: Severe atrophy of the right kidney. No acute abnormalities. Electronically Signed: Angus Donahue MD at 17:33 EST , Service support , Abdomen/Pelvis CT 07/14/19 11:23 IMPRESSION: Retroperitoneal hemorrhage on the right as described above. Electronically Signed: Jacob Alicea MD at 13:24 EST Tel , Service support , ADDENDUM: 07/14/19 1420 IMPRESSION: Retroperitoneal hemorrhage on the right as described above. N.B. : The above information has been verbally conveyed by Jacob Alicea MD to RN Chel Ortiz RN, on 07/14/2019 14:13:48 (ET). Electronically Signed: Jacob Alicea MD at 13:24 EST Tel , Service support , Dr. Vazquez- Cardiology Operations: None Procedures: 2-D Echocardiogram Summary of Care Provided: The patient is a 63 year old F admitted 07/12/2019 due to dyspnea. 1. Acute hypoxic respiratory failure secondary to acute on chronic combined systolic and diastolic CHF and COPD exacerbation-patient weaned off of supplemental oxygen, oxygen stable on room air at discharge. 2. Acute on chronic combined systolic and diastolic CHF-BNP greater than 2700. Chest x-ray consistent with CHF. Strict I&O. Daily weight. Echocardiogram demonstrates an EF of 45%, stage I diastolic dysfunction, severe mitral valve insufficiency, moderate tricuspid valve insufficiency, moderate pulmonary hypertension with RVSP 55 mmHg. Home oral Lasix increased to 80 mg twice daily per cardiology. Follow-up with cardiology in 1 to 2 weeks. Patient follows with Dr. Good. 2. Acute exacerbation of COPD- Respiratory panel negative. Discontinue IV Solu-Medrol. Transition to oral prednisone X5 days. Recommended referral to [facility] medicine of [place] to establish and obtain PFTs as outpatient at discharge. 3. Indeterminate cardiac enzymes, recent NSTEMI-cardiology consulted during admission. Plan for continued medical management. Recent [facility] cardiac catheterization with balloon angioplasty to in-stent stenosis proximal LAD and ostium of the diagonal. Continue aspirin, statin, Plavix, beta-kristy. 4. Acute kidney injury on chronic kidney disease stage III-Renal ultrasound demonstrates severe atrophy of the right kidney. No other abnormalities. Stable. Recommend establishing with Dr. Slaughter, nephrology for routine follow-up at discharge. 5. Lactic acidosis-suspect secondary to #1. No evidence of infectious etiology. Urinalysis unremarkable. CXR without infiltrate. 6. Type 2 diabetes mellitus-uncontrolled. Recent hemoglobin A1c 11.9%. Accu-Cheks with sliding scale insulin. 7. Anxiety with depression-continue home BuSpar and sertraline regimen. 8. Carotid artery disease status post right CEA-continue outpatient follow-up for left-sided stenosis. Continue aspirin, Plavix, statin. 9. Hypertension-stable, continue metoprolol regimen. 10. Hyperlipidemia-continue statin. 11. Obesity-encouraged diet lifestyle indications. 12. Former tobacco use-encouraged continued cessation. 13. History of CVA-continue aspirin, Plavix, statin, BP regimen. 14. Valvular heart disease-as noted per echo. Cardiology recommending mitral valve repair and/or tricuspid valve repair given repeat exacerbations of CHF. Close outpatient follow-up for evaluation for valve repair. Patient wishes to follow with [facility] for valve repair. 15. Recent retroperitoneal bleed-diagnosed at [facility]. Still present on CT of abdomen during admission. Hemoglobin stable. General: Alert, Oriented x3, Cooperative HEENT: Atraumatic, PERRLA, EOMI, Normocephalic Neck: Supple, No JVD, Negative Carotid Bruits Lungs: Clear to auscultation, Diminished Cardiovascular: Regular rate, Regular Rhythm, Normal S1, Normal S2, Murmur Abdomen: Bowel Sounds Present, Soft, Non Tender, Non-Distended Extremities: No clubbing, No cyanosis, No edema, Capillary Refill Less than 3 Seconds Skin: No rashes, No breakdown Musculoskeletal: No Tenderness to Palpation of Joints or Extremities Neurological: Cranial nerves II-XII grossly intact, Neuro grossly intact Psych/Mental Status: Normal Affect, Appropriate Patient seen and examined prior to discharge. Physical assessment as noted above. Patient is stable for discharge with follow up recommendations as noted above. This patient was seen by ORIN Hadley under the supervision of Dr. Neely. - Physical Exam Vitals/I&O's: Vital Signs Temp Pulse Resp BP Pulse Ox 98.0 F 88 16 120/74 98 07/16/19 09:10 07/16/19 10:40 07/16/19 10:40 07/16/19 09:10 07/16/19 10:40 Oxygen Flow Rate (L/min) 1 Oxygen Delivery Method Room Air Weight: 168 lb 6.931 oz Body Mass Index (BMI) 34.2 Intake and Output for Last 24 Hours 07/14/19 07/15/19 07/16/19 23:59 23:59 23:59 Intake Total 640 / 640 1497 / 1497 200 / 200 Output Total 1650 / 1650 1900 / 1900 Balance -1010 / -1010 -403 / -403 200 / 200 Laboratory Results 07/15/19 11:19: POC Glucose 143 H 07/15/19 17:12: POC Glucose 212 H 07/15/19 21:07: POC Glucose 113 H 07/16/19 06:55: POC Glucose 90 07/16/19 08:38: POC Glucose 121 H Current Medications Acetaminophen (Tylenol) 650 mg PO Q6H PRN PRN PRN Reason: Pain Score 1-10/Temp > 100.7 F Last Admin: 07/15/19 08:49 Dose: 650 mg Documented by: Acetaminophen/Butalbital/Caffeine (Fioricet) 2 tablet PO Q6H PRN PRN PRN Reason: HEADACHE Last Admin: 07/16/19 08:47 Dose: 2 tablet Documented by: Al Hydroxide/Mg Hydroxide (Mylanta Ii) 30 ml PO Q6H PRN PRN PRN Reason: Gastric Burning Albuterol Sulfate (Ventolin Aerosols) 2.5 mg INHALATION Q2H PRN PRN PRN Reason: Dyspnea, wheezing Last Admin: 07/12/19 16:49 Dose: 2.5 mg Documented by: Albuterol/Ipratropium (Duoneb) 3 ml INHALATION Q4HWA.RT ALBERTO Last Admin: 07/16/19 10:39 Dose: 3 ml Documented by: Aspirin (Aspirin, Baby) 81 mg PO DAILY@0800 [facility] Last Admin: 07/16/19 08:39 Dose: 81 mg Documented by: Atorvastatin Calcium (Lipitor) 40 mg PO QHS [facility] Buspirone HCl (Buspar) 20 mg PO TID [facility] Last Admin: 07/16/19 06:10 Dose: 20 mg Documented by: Clopidogrel Bisulfate (Plavix) 75 mg PO DAILY [facility] Last Admin: 07/16/19 08:42 Dose: 75 mg Documented by: Furosemide (Lasix) 80 mg PO BID@1000,1800 [facility] Last Admin: 07/16/19 08:41 Dose: 80 mg Documented by: Glucagon () 1 mg IM .X1 PRN PRN Reason: Hypoglycemia Guaifenesin (Robitussin) 20 ml PO Q4H PRN PRN PRN Reason: COUGH Hydralazine HCl (Apresoline Iv) 10 mg IV Q4H PRN PRN PRN Reason: SBP > 160 Hydrocortisone (Hytone) 1 applic TOPICAL BID PRN PRN; Protocol PRN Reason: Itching/Rash Last Admin: 07/14/19 16:52 Dose: 1 applic Documented by: Dextrose (Dextrose 10%-Water) 250 mls @ 999 mls/hr IV .Q16M PRN; Protocol PRN Reason: HYPOGLYCEMIA Sodium Chloride () 250 mls @ 15 mls/hr IV .[id number] PRN PRN Reason: Saline Flush Sodium Chloride () 250 mls @ 15 mls/hr IV .[id number] PRN PRN Reason: Additional IVPB Infusion Insulin Glargine (Lantus (Bkc)) 35 units SC BID [facility] Last Admin: 07/16/19 08:40 Dose: 35 u Documented by: Insulin Human Lispro (Humalog Kwikpen (Bkc)) 0 unit SC ACHS [facility]; Protocol Last Admin: 07/16/19 06:58 Dose: Not Given Documented by: Insulin Human Lispro (Humalog Kwikpen (Bkc)) 15 unit SC TIDCM [facility] Last Admin: 07/16/19 08:39 Dose: 15 u Documented by: Magnesium Hydroxide (Milk Of Magnesia) 30 ml PO DAILY PRN PRN PRN Reason: Constipation Melatonin (Melatonin) 6 mg PO QHS PRN PRN PRN Reason: INSOMNIA Last Admin: 07/15/19 21:12 Dose: 6 mg Documented by: Metoprolol Succinate (Toprol Xl (Beta Kristy)) 25 mg PO DAILY [facility] Last Admin: 07/16/19 08:42 Dose: 25 mg Documented by: Nitroglycerin (Nitrostat) 0.4 mg SUBLINGUAL Q5M PRN PRN Reason: CARDIAC/CHEST PAIN Non-Formulary Medication (Mometasone Furoate [Elocon]) 0 gm TOPICAL DAILY [facility] Last Admin: 07/16/19 08:41 Dose: 1 gm Documented by: Ondansetron HCl (Zofran) 4 mg IV Q8H PRN PRN PRN Reason: NAUSEA/VOMITING Oxycodone HCl (Oxyir) 5 mg PO Q4H PRN PRN PRN Reason: Pain Score 4-5/10 Last Admin: 07/15/19 13:44 Dose: 5 mg Documented by: Pantoprazole Sodium (Protonix) 20 mg PO BID [facility] Last Admin: 07/16/19 08:42 Dose: 20 mg Documented by: Prednisone () 40 mg PO DAILY@0800 [facility] Stop: 07/19/19 08:01 Last Admin: 07/16/19 08:40 Dose: 40 mg Documented by: Prochlorperazine Edisylate (Compazine Iv) 5 mg IV Q4H PRN PRN PRN Reason: Breakthrough Nausea/Vomiting Psyllium Hydrophilic Mucilloid (Metamucil) 1 packet PO DAILY PRN PRN PRN Reason: Constipation Senna/Docusate Sodium (Senokot-S, [place]-Colace) 2 tablet PO BID PRN PRN PRN Reason: Constipation Sertraline HCl (Zoloft) 50 mg PO DAILY [facility] Last Admin: 07/16/19 08:43 Dose: 50 mg Documented by: Sodium Chloride () 10 - 40 ml IV UD PRN PRN Reason: SALINE FLUSH Last Admin: 07/14/19 13:02 Dose: 10 ml Documented by: Sodium Chloride (Travis Nasal [place]) 2 spray NASAL TID PRN PRN PRN Reason: NASAL DRYNESS Throat Lozenges (Cepacol Sore Throat Lozenge) 1 lozenge MUCOUS MEM Q2H PRN PRN PRN Reason: SORE THROAT Discharge Diet: Low fat/ Low Cholesterol, 2000 mg Sodium Diet Call your doctor if you observe: Shortness of breath, Dizziness, Fainting spells, Chest pain Home Medications: Medications to take at Discharge Insulin Lispro [Humalog KwikPen] 3 unit SQ TIDCM 12/20/17 Clopidogrel Bisulfate [Clopidogrel] 75 mg PO DAILY 05/24/18 [place]-3 Fatty Acids [[place]oa-3] 2,000 mg PO DAILY 05/24/18 Ergocalciferol (Vitamin D2) [Vitamin D2] 50,000 unit PO WE 06/11/18 Loratadine 10 mg PO DAILY PRN PRN 07/02/18 Insulin Glargine,Hum.rec.anlog [Basaglar Kwikpen U-100] 10 unit SQ QHS 07/24/18 buspirone 10 mg tablet 20 mg PO TID tab 08/15/18 sertraline 50 mg tablet 50 mg PO DAILY 08/17/18 Acetaminophen [Mapap] 1,300 mg PO BID PRN PRN 06/29/19 Aspirin [Aspirin, Baby] 81 mg PO DAILY@0800 07/12/19 Mometasone Furoate [Elocon] 45 gm TP DAILY 07/15/19 Atorvastatin Calcium [Lipitor] 40 mg PO QHS tab 07/16/19 Furosemide [Lasix] 80 mg PO BID@1000,1800 tab 07/16/19 Metoprolol(XL)Succ [Toprol Xl (Beta Kristy)] 25 mg PO DAILY tab 07/16/19 Pantoprazole Sodium [Protonix] 20 mg PO BID tab 07/16/19 predniSONE tablet 40 mg PO DAILY@0800 tab 07/16/19 Primary Care Physician: Evens Jimenez III, MD [Primary Care Provider] - Please follow up with your Primary Care Physician in: 1 Week Please Follow Up With: Charles Good MD When: 1-2 Weeks Please Follow Up With: Noemí Slaughter DO - Nephrology When: Call to establish for outpatient follow-up chronic kidney disease Please Follow Up With: Johnny Alvarez MD When: Established by pulmonary medicine, needs PFTs Disposition[facility] Minutes spent on discharge:: 35 Patient Condition:: Stable Medical Necessity - Tobacco Use Smoking Status: Former smoker Tobacco Use: Non-smoker Meaningful Use Info Meaningful Use Diagnoses (Choose all that apply): CHF - CHF ALEJANDRA/ARB ordered at discharge?: No Reason ALEJANDRA/ARB not ordered?: Worsening renal disease Documented LVEF (%): 45 <Jose Neely - Last Filed: 07/16/19 15:12> Discharge Date and Diagnosis - Secondary Discharge Diagnosis Chronic Problems (Last Updated 07/16/19 @ 10:53 by Indu Royal NP-C) Chronic combined systolic and diastolic CHF (congestive heart failure) (Chronic) Former tobacco use (Chronic) Bilateral carotid artery stenosis (Chronic) RCEA and L carotid 70-80% stenosis Atherosclerosis of coronary artery of [place] heart without angina pectoris (Chronic) PCI-JAZIEL-LAD w/ 2.0 x 30 mm and 2.5 x 34 mm Resolute [place] and PCI-JAZIEL-Mid LCx w/ Resolute [place] 2.0 x 30 mm and 2.0 x 22 mm Stent 05/18/2018 Non-rheumatic tricuspid valve insufficiency (Chronic) Secondary pulmonary arterial hypertension (Chronic) Nonrheumatic mitral (valve) insufficiency (Chronic) CVA (cerebral vascular accident) (Chronic) Essential (primary) hypertension (Chronic) Hyperlipidemia (Chronic) Nicotine dependence (Chronic) Hospital Course and Treatment Operations: None Procedures: 2-D Echocardiogram Summary of Care Provided: Patient seen and examined independently. Data reviewed. I agree with the above note by the nurse practitioner. The patient is a 63 year old F presents with shortness of breath. Patient had acute hypoxic respiratory failure secondary to exacerbation of CHF. CHF exacerbation by severe mitral regurgitation as well as pulmonary hypertension. Overall, patient did better during the course of hospitalization. Patient advised to follow-up with cardiology for evaluation for a mitral valve replacement but when patient is more medically optimized. [] - Physical Exam Vitals/I&O's: Vital Signs Temp Pulse Resp BP Pulse Ox 36.8 C 76 14 116/68 98 07/16/19 12:34 07/16/19 12:34 07/16/19 12:34 07/16/19 12:34 07/16/19 12:34 Oxygen Flow Rate (L/min) 1 Oxygen Delivery Method Room Air Weight: 76.4 kg Body Mass Index (BMI) 34.2 Intake and Output for Last 24 Hours 07/14/19 07/15/19 07/16/19 23:59 23:59 23:59 Intake Total 640 / 640 1497 / 1497 650 / 650 Output Total 1650 / 1650 1900 / 1900 Balance -1010 / -1010 -403 / -403 650 / 650 General: Alert, No apparent distress HEENT: Atraumatic, Normocephalic Lungs: Clear to auscultation, Normal air movement, No rhonchi, No wheeze Cardiovascular: Regular rate, Regular Rhythm, Normal S1, Normal S2 Laboratory Results 07/15/19 17:12: POC Glucose 212 H 07/15/19 21:07: POC Glucose 113 H 07/16/19 06:55: POC Glucose 90 07/16/19 08:38: POC Glucose 121 H 07/16/19 11:52: POC Glucose 111 H Discharge Diet: Low fat/ Low Cholesterol, 2000 mg Sodium Diet Call your doctor if you observe: Shortness of breath, Dizziness, Fainting spells, Chest pain Disposition: Penitentiary facility Minutes spent on discharge:: 35 Patient Condition:: Stable Medical Necessity - Tobacco Use Smoking Status: Former smoker Tobacco Use: Non-smoker Meaningful Use Info Meaningful Use Diagnoses (Choose all that apply): CHF - CHF ALEJANDRA/ARB ordered at discharge?: No Reason ALEJANDRA/ARB not ordered?: Worsening renal disease Documented LVEF (%): 45 Code Visit Inpatient E&M: 16159 Disch Hosp
[2019-07-16 11:55] LABS: Bedside Glucose 111 mg/dL (70-110)
--- NOTE | 2019-07-16 12:11 | CASEMGMT ---
Patient's family brought her clothes and cane to [facility] and they cannot take her to [facility]. JAX called [facility] and arranged for patient to get picked up at via van. JAX notified patient, RN, YACHT RIGGER, and left a voice mail for Beatriz at [facility]. Convalescent was completed on [facility]. Plan; d/c to [facility] under skilled level of care on a convalescent stay. [facility] transported patient via van. Shanique CONNOR MSW
--- NOTE | 2019-07-16 12:40 | NURSING ---
attempt made to call report to [facility]. [facility] medical assistant secretary states no one is picking up. [facility] medical assistant secretary made aware that pt will be on their way to facility soon and this RN will attempt again to call report later.
--- NOTE | 2019-07-16 13:20 | NURSING ---
report called to Barb VARGAS at [facility]
== END 2019-07-16 13:05 | disposition skilled nursing facility (03) | DRG 194 ==
LOC: ED 03:50 → PCU 05:10
PROVIDERS: Internal Medicine; Nurse Practitioner Family; Admitting Provider Family Medicine; Emergency Provider Emergency Medicine; PCP Family Medicine
DX: I13.0 Hypertensive heart and chronic kidney disease with heart failure and stage 1 through stage 4 chronic kidney disease, or unspecified chronic kidney disease (principal); J44.1 Chronic obstructive pulmonary disease with (acute) exacerbation; I50.43 Acute on chronic combined systolic (congestive) and diastolic (congestive) heart failure; N17.9 Acute kidney failure, unspecified; N18.3 Chronic kidney disease, stage 3 (moderate); E11.22 Type 2 diabetes mellitus with diabetic chronic kidney disease; E87.2 Acidosis; F41.8 Other specified anxiety disorders; E78.5 Hyperlipidemia, unspecified; E66.9 Obesity, unspecified; I36.1 Nonrheumatic tricuspid (valve) insufficiency; I34.0 Nonrheumatic mitral (valve) insufficiency; I27.21 Secondary pulmonary arterial hypertension; I21.4 Non-ST elevation (NSTEMI) myocardial infarction; I25.10 Atherosclerotic heart disease of native coronary artery without angina pectoris; Z95.5 Presence of coronary angioplasty implant and graft; Z68.34 Body mass index [BMI] 34.0-34.9, adult; R58 Hemorrhage, not elsewhere classified; Z86.73 Personal history of transient ischemic attack (TIA), and cerebral infarction without residual deficits; I65.22 Occlusion and stenosis of left carotid artery; F17.200 Nicotine dependence, unspecified, uncomplicated
CPT/HCPCS: 36415; 71045; 74176; 76770; 80048; 80053; 80061; 81001; 82962; 83605; 83735; 83880; 84439; 84443; 84484; 85025; 85027; 87633; 93005; 93306; 94640; 97162; 97166; 97802; 99285; Q9957; A4216; C8929; J1940

== ENCOUNTER 2019-09-19 14:39 | Inpatient (IN) | payer MEDICAID, SELFPAY ==
[2019-07-12 05:44] VITALS: BMI 34.2
[2019-09-19] VITALS (12 sets, daily range): BP systolic 109–130; BP diastolic 69–82; PULSE 52–97; RESP 18–22; TEMP 36.4–37.2; O2SAT 96–99; BMI 37.1
--- NOTE | 2019-09-19 14:59 | EKG12_ITS ---
Test Reason : Blood Pressure : / mmHG Vent. Rate : 093 BPM Atrial Rate : 093 BPM P-R Int : 138 ms QRS Dur : 090 ms QT Int : 386 ms P-R-T Axes : 072 -44 131 degrees QTc Int : 479 ms Normal sinus rhythm Left axis deviation Bret Septal infarct , age undetermined Inferior infarct , age undetermined Abnormal ECG Confirmed by ANDREA GARCIA, JOE ([id number]), research editor RAYMUNDO PATEL ([id number]) on 09/23/2019 10:18:18 AM Referred By: ANTHONY Confirmed By:JOE MENDEZ MD
--- NOTE | 2019-09-19 15:03 | ED.VIS.GEN ---
History of Present Illness Chief Complaint: Shortness of Breath Informant: Patient Onset: Yesterday Context: Gradual Onset Timing: Continuous Current Severity: Moderate Maximum Severity: Moderate Narrative: The patient is a 63-year-old female with medical history significant for coronary vascular disease who is status post SC with intervention at [facility] in June, combined diastolic and systolic heart failure, who presents to the emergency department with increasing shortness of breath. The patient states that over the past 24 hours, she is had gradual worsening shortness of breath. She is had a 9 pound weight gain. She denies any fevers. She denies any cough. She denies any nausea or vomiting or chest pain. She states that she is getting easily fatigued and cannot walk without getting dyspneic. The patient states she has been compliant with her medications. She is not on oxygen at home. Prior similar symptoms: Yes Recent Illness/Hospitalization: Yes Past Medical History - Allergies and Home Meds Allergies/Adverse Reactions: Allergies Penicillins Allergy (Severe, Verified 09/19/19 14:40) Swelling tolerated keflex in past with no issue Primary Care Physician: Evens Jimenez III, MD [Primary Care Provider] - Prior records reviewed: Yes Past Medical History: - - Coronary vascular disease, hypertension, hyperlipidemia, COPD Surgical History: - - R CEA, L 5th toe amputation, PCI, T+A. Smoking Status: Former smoker - Family History Maternal Family History: Family History (Last Reviewed 03/19/19 @ 12:44 by Karin Clayton) Mother No problems noted. Family History: Reports: High Cholesterol, Heart Disease, Hypertension, Stroke, - - Patient's mother in her 40s from a cerebrovascular accident. Paternal Family History: Family History (Last Reviewed 03/19/19 @ 12:44 by Karin Clayton) Mother No problems noted. Family History: Reports: High Cholesterol, Heart Disease, Hypertension, - - Patient's father in his 40s from myocardial infarction. Review of Systems General: Denies: Chills, Fever, Sweats Eyes: Denies: Visual changes - bilaterally, Diplopia ENT: Denies: Rhinorrhea, Sore throat Cardiovascular: Denies: Chest pain, Palpitations Respiratory: Reports: Dyspnea, Cough, Dyspnea on exertion, Orthopnea Gastrointestinal: Denies: Abdominal pain, Nausea, Vomiting, Diarrhea, Melena, Hematochezia Genitourinary: Denies: Dysuria, Hematuria, Frequency Musculoskeletal: Denies: Back pain, Extremity Pain Skin: Denies: Rash, Wounds Neurological: Denies: Headache, Weakness, Numbness Physical Exam Vital Signs/Narrative: Vital Signs Temp Pulse Resp BP Pulse Ox 09/19/19 14:41 97.5 F L 96 20 H 109/82 H 98 Inital Vital Signs reviewed: Yes General: Well nourished, Well developed, No Acute Distress Head: Normocephalic, Atraumatic Eyes: Perrl, EOMI ENT: Moist mucous membranes, No rhinorrhea Neck: Supple, Nontender Cardiovascular: Regular rate, Regular rhythm, No murmurs Respiratory: No distress, Chest nontender, Rales, Decreased Air Movement Abdomen: Soft, Nontender, Nondistended, Normal bowel sounds Back: Nontender, Normal Inspection Extremities: Nontender, Edema Skin: Normal color, No rash Neurological: Alert, Oriented x3, Cranial nerves II-XII grossly intact, Normal Strength, Normal Sensation Psychological: Normal affect, Normal Mood Diagnostic/Tx/Re-eval Chest X-Ray - ED: 2 View, Chronic Changes, Cardiomegaly, CHF Clinical Impression(s) from Imaging Studies Chest X-Ray 09/19/19 15:45 IMPRESSION: Mild cardiomegaly. Minimal degree of vascular congestion. Electronically Signed: Veto Giordano, at 15:58 EDT , Service support , Abnormal Lab Results 09/19/19 09/19/19 09/19/19 16:15 16:15 16:15 WBC 7.5 RBC 3.45 L Hgb 9.5 L Hct 30.2 L MCV 87.5 MCH 27.5 MCHC 31.5 L RDW Std Deviation 50.1 H RDW Coeff of Jade 15.7 H Plt Count 233 MPV 10.3 Immature Gran % (Auto) 0.400 Neut % (Auto) 72.8 H Lymph % (Auto) 17.5 L [place]ountain % (Auto) 7.0 Eos % (Auto) 1.9 Baso % (Auto) 0.4 Absolute Neuts (auto) 5.5 Absolute Lymphs (auto) 1.31 Nucleated RBC % 0 Sodium 138 Potassium 4.6 Chloride 105 Carbon Dioxide 24.0 Anion Gap 9 BUN 40 H Creatinine 2.06 H Estim Creat Clear Calc 36.80 Est GFR (MDRD) Af Amer 31 L Est GFR (MDRD) Non-Af 26 L BUN/Creatinine Ratio 19.4 Glucose 327 H Calcium 8.8 Magnesium 2.2 Troponin I 0.143 H B-Natriuretic Peptide 3125.2 H - Rhythm Strip Rhythm Strip: Sinus Rhythm Rate: 90 Ectopy: None - EKG Initial EKG Interpretation: Sinus Rhythm, No Acute Injury Pattern, Non-Specific ST Changes Prior: Unchanged - Medical Decision Making The patient is a 63-year-old female with history of significant coronary vascular disease, combined diastolic and systolic heart failure, who presents to the emergency department with exertional dyspnea, 9 pound weight gain, and evidence of volume overload. Metabolic work-up was pursued. EKG was sinus rhythm without evidence of acute ischemic change. Chest x-ray does show CHF with cephalization without significant effusion. Patient does have conversational dyspnea, and while in bed, she did desaturate to 88%. She was placed on 2 L of nasal cannula. She does have elevated BNP and indeterminate troponin which do appear to be chronic. However, given her significant evidence of volume overload I do feel that she would benefit from admission for diuresis and cycling of cardiac enzymes. The patient was discussed with the hospitalist. Impression 1. Acute decompensated combined diastolic and systolic heart failure 2. Hypoxia requiring supplemental oxygen ED Disposition - Plan for ED Patient: Referrals: Evesn Jimenez III, MD [Primary Care Provider] -
[2019-09-19] MEDS: Aspirin 81 MG TAB.CHEW 324 MG PO (15:26)
--- NOTE | 2019-09-19 15:45 | RAD_ITS ---
STUDY: X-RAY CHEST REASON FOR EXAM: Female, 63 years old. INCREASING SOB AND FLUID RETENTION OVER THE PAST SEVERAL DAYS. HX OF CHF TECHNIQUE: Single AP portable view of the chest. COMPARISON: Comparison is made with prior study dated July 12, 2019. FINDINGS: EKG electrodes are seen. Minimal degree of vascular congestion. No significant CHF is seen. There is no demonstrated pleural abnormality. There is mild cardiac enlargement. Normal mediastinum and tom. Normal visualized pulmonary arteries. There is atherosclerotic tortuosity of the aortic arch and descending thoracic aorta. Normal visualized thoracic spine. Normal visualized ribs, clavicles, and shoulders. There is no demonstrated abnormality of the visualized soft tissue structures of the upper abdomen. RAD/Chest 1 View (Portable) IMPRESSION: Mild cardiomegaly. Minimal degree of vascular congestion. Electronically Signed: Veto Giordano, at 15:58 EDT , Service support ,
[2019-09-19 16:25] LABS: Absolute Lymphocyte Count 1.31 X10^3/uL (0.83-4.51); Absolute Neutrophil Count 5.5 X10^3/uL (2.0-7.7); Basophil# 0.03 X10^3/uL; Basophil% 0.4 % (0-1); Eosinophil# 0.14 X10^3/uL; Eosinophils% 1.9 % (0-5); Hematocrit 30.2 % (37-47); Hemoglobin 9.5 g/dL (12.0-15.0); Lymphocyte # 1.31 X10^3/ul (4.0); Lymphocyte % 17.5 % (19-41); Mean Corp Hgb Conc 31.5 g/dL (32-36); Mean Corpuscular Hgb 27.5 pg (27.0-32.0); Mean Corpuscular Volume 87.5 fL (81-99); Mean Platelet Vol. 10.3 fl (6.2-12.0); Monocyte# 0.52 X10^3/uL; NRBC Flagged by Analyzer 0 % (0-5); Neutrophil # 5.45 X10^3/uL (2.7-7.7); Neutrophil % 72.8 % (47-70); Platelet Count 233 K/mm3 (150-450); RBC Distribution Width CV 15.7 % (11.6-14.6); RBC Distribution Width SD 50.1 fl (35.1-43.9); Red Blood Count 3.45 M/mm3 (4.2-5.4); White Blood Count 7.5 K/mm3 (4.4-11.0)
[2019-09-19 16:45] LABS: Anion Gap 9 (5-15); BUN 40 mg/dL (7-18); BUN/Creat Ratio 19.4 RATIO (10-20); Calcium,Total 8.8 mg/dL (8.5-10.1); Chloride 105 mmol/L (98-107); Creatinine, Serum 2.06 mg/dL (0.55-1.02); EST Glomerular Filtration Rate 26 mL/min (>60); Est Glom Filt Rate - Afr Amer 31 mL/min (>60); Glucose 327 mg/dL (74-106); Magnesium 2.2 mg/dL (1.6-2.6); Potassium 4.6 mmol/L (3.5-5.1); Sodium Level 138 mmol/L (136-145)
[2019-09-19] MEDS: Furosemide 40 MG/4 ML Vial IV (17:20)
[2019-09-19 17:42] LABS: International Normalized Ratio 1.3; Prothrombin Time (Protime)PT. 15.2 SECONDS (11.7-14.9)
--- NOTE | 2019-09-19 22:27 | PCM.HP.STD ---
History of Present Illness Date of Admission: 09/19/19 Chief Complaint: short of breath The patient is a 63 year old F feeling short of breath with LE edema today. Weight has gone up today. Found to be in CHF. Received lasix in ED. [] Past Medical History Past Medical History (Chronic Problems): Chronic Problems (Last Updated 07/16/19 @ 10:53 by Indu Royal NP-C) Chronic combined systolic and diastolic CHF (congestive heart failure) (Chronic) Former tobacco use (Chronic) Bilateral carotid artery stenosis (Chronic) RCEA and L carotid 70-80% stenosis Atherosclerosis of coronary artery of [place] heart without angina pectoris (Chronic) PCI-JAZIEL-LAD w/ 2.0 x 30 mm and 2.5 x 34 mm Resolute [place] and PCI-JAZIEL-Mid LCx w/ Resolute [place] 2.0 x 30 mm and 2.0 x 22 mm Stent 05/18/2018 Non-rheumatic tricuspid valve insufficiency (Chronic) Secondary pulmonary arterial hypertension (Chronic) Nonrheumatic mitral (valve) insufficiency (Chronic) CVA (cerebral vascular accident) (Chronic) Essential (primary) hypertension (Chronic) Hyperlipidemia (Chronic) Nicotine dependence (Chronic) Medical History: Medical History (Last Reviewed 09/19/19 @ 22:[address] Jose Neely, DO) Bilateral carotid artery stenosis (Chronic) I65.23 RCEA and L carotid 70-80% stenosis Atherosclerosis of coronary artery of [place] heart without angina pectoris (Chronic) I25.10 PCI-JAZIEL-LAD w/ 2.0 x 30 mm and 2.5 x 34 mm Resolute [place] and PCI-JAZIEL-Mid LCx w/ Resolute [place] 2.0 x 30 mm and 2.0 x 22 mm Stent 05/18/2018 Acute on chronic combined systolic (congestive) and diastolic (congestive) heart failure (Acute) I50.43 Non-rheumatic tricuspid valve insufficiency (Chronic) I36.1 Secondary pulmonary arterial hypertension (Chronic) I27.21 Nonrheumatic mitral (valve) insufficiency (Chronic) I34.0 CVA (cerebral vascular accident) (Chronic) I63.9 Essential (primary) hypertension (Chronic) I10 Hyperlipidemia (Chronic) E78.5 Nicotine dependence (Chronic) F17.200 Asthma J45.909 COPD (chronic obstructive pulmonary disease) J44.9 Chronic back pain M54.9, G89.29 Depression F32.9 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 Type 2 diabetes mellitus E11.9 Allergies Penicillins Allergy (Severe, Verified 09/19/19 14:40) Swelling tolerated keflex in past with no issue Home Medications: Ambulatory Orders Medication Instructions Recorded Insulin Lispro [Humalog KwikPen] See Protocol SQ TIDCM 12/20/17 Clopidogrel Bisulfate [Clopidogrel] 75 mg PO DAILY 05/24/18 [place]-3 Fatty Acids [[place]-3] 2,000 mg PO DAILY 05/24/18 Ergocalciferol (Vitamin D2) 50,000 unit PO WE 06/11/18 [Vitamin D2] Insulin Glargine,Hum.rec.anlog 16 unit SQ QHS 07/24/18 [Basaglar Kwikpen U-100] sertraline 50 mg tablet 50 mg PO DAILY 08/17/18 Aspirin [Aspirin, Baby] 81 mg PO DAILY@0800 07/12/19 Mometasone Furoate [Elocon] 1 applic TP QHS 07/15/19 Atorvastatin Calcium [Lipitor] 40 mg PO QHS 09/19/19 Buspirone HCl 15 mg PO 4X/DAY 09/19/19 Furosemide [Lasix] 80 mg PO DAILY 09/19/19 Ipratropium/Albuterol Sulfate 3 ml INHALATION Q6H.RT 09/19/19 [Duoneb] Melatonin Tr 10 mg Tablet 10 mg PO QHS 09/19/19 Metoprolol(XL)Succ [Toprol Xl 25 mg PO DAILY 09/19/19 (Beta Kristy)] Oxycodone HCl 5 mg PO Q6H PRN PRN 09/19/19 Potassium Chloride [K-Dur] 20 meq PO BID 09/19/19 Surgical History: Surgical History (Last Reviewed 09/19/19 @ 22:[address] 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 History Items: High Cholesterol, Heart Disease, Hypertension, Stroke, - - Patient's mother in her 40s from a cerebrovascular accident. Paternal Family History: Family History (Last Reviewed 03/19/19 @ 12:44 by Karin Clayton) Mother No problems noted. History Items: High Cholesterol, Heart Disease, Hypertension, - - Patient's father in his 40s from myocardial infarction. Review of Systems Comment: All ROS otherwise negative except as mentioned in HPI. VTE Information - Inpt Only VTE Present on Admission: No VTE Pharm Prophylaxis ordered?: Yes - Physical Exam Vitals/I&O's: Vital Signs Temp Pulse Resp BP Pulse Ox 36.7 C 87 20 H 130/75 H 98 09/19/19 18:25 09/19/19 19:02 09/19/19 18:25 09/19/19 18:25 09/19/19 19:23 Oxygen Flow Rate (L/min) 3 Oxygen Delivery Method Nasal Cannula Weight: 83.37 kg Body Mass Index (BMI) 37.1 General: Alert, No apparent distress, - - appears older than stated age. HEENT: Atraumatic, Normocephalic Oral: Moist Mucosa, No Gingival or Mucosal Lesions/ Ulcerations Neck: No JVD, Negative Hepatojugular Reflux Lungs: Clear to auscultation, Normal air movement, No rhonchi, No wheeze Cardiovascular: Regular rate, Regular Rhythm, Normal S1, Normal S2 Abdomen: Bowel Sounds Present, Soft, Non Tender, Non-Distended, No Hepato-splenomegaly Extremities: No Calf Tenderness, Edema Skin: No rashes, No breakdown Psych/Mental Status: Normal Affect, Appropriate Laboratory Results 09/19/19 16:15: WBC 7.5, RBC 3.45 L, Hgb 9.5 L, Hct 30.2 L, MCV 87.5, MCH 27.5, MCHC 31.5 L, RDW Std Deviation 50.1 H, RDW Coeff of Jade 15.7 H, Plt Count 233, MPV 10.3, Immature Gran % (Auto) 0.400, Neut % (Auto) 72.8 H, Lymph % (Auto) 17.5 L, [place] % (Auto) 7.0, Eos % (Auto) 1.9, Baso % (Auto) 0.4, Absolute Neuts (auto) 5.5, Absolute Lymphs (auto) 1.31, Nucleated RBC % 0 09/19/19 16:15: Sodium 138, Potassium 4.6, Chloride 105, Carbon Dioxide 24.0, Anion Gap 9, BUN 40 H, Creatinine 2.06 H, Estim Creat Clear Calc 36.80, Est GFR (MDRD) Af Amer 31 L, Est GFR (MDRD) Non-Af 26 L, BUN/Creatinine Ratio 19.4, Glucose 327 H, Calcium 8.8, Magnesium 2.2, Troponin I 0.143 H 09/19/19 16:15: PT 15.2 H, INR 1.3 09/19/19 16:15: B-Natriuretic Peptide 3125.2 H Clinical Impression(s) from Imaging Studies Chest X-Ray 09/19/19 15:45 IMPRESSION: Mild cardiomegaly. Minimal degree of vascular congestion. Electronically Signed: Veto Giuliana, at 15:58 EDT , Service support , Current Medications Nutritional Formula (Lactose Free) (Ensure Enlive) 120 ml PO 4X/DAY ALBERTO Sodium Chloride () 10 - 40 ml IV UD PRN PRN Reason: SALINE FLUSH Assessment/Plan All Active Problems (Last Updated 07/16/19 @ 10:53 by Indu Royal, HUSAM-C) Acute respiratory failure with hypoxia (Acute) COPD exacerbation (Acute) CHF exacerbation (Acute) History of coronary artery stent placement (Resolved 05/18/18) Acute on chronic combined systolic (congestive) and diastolic (congestive) heart failure (Acute) Acute exacerbation of CHF (congestive heart failure) (Resolved) COPD exacerbation (Resolved) Chronic ulcer of buttock (Resolved) Flash pulmonary edema (Resolved) 1. Acute HFrEF continue furosemide IV fluid restrict monitor 2. DM2 continue home meds SSI 3. VTE prophylaxis: enoxaparin 4. Advanced care planning. patient wishes to be full code. Inpatient E&M: [id number] Init Hosp L2
[2019-09-19 22:51] LABS: Bedside Glucose 241 mg/dL (70-110)
[2019-09-19] MEDS: oxyCODONE 5 MG Tablet PO (22:58)
[2019-09-19] MEDS: Ipratropium/Albuterol Sulfate 3 ML AMPUL.NEB INHALATION (23:23)
[2019-09-19] MEDS: busPIRone 15 MG TABLET PO (23:36)
[2019-09-19] MEDS: MELATONIN 10 MG TABLET PO (23:37)
[2019-09-20] VITALS (14 sets, daily range): BP systolic 109–133; BP diastolic 65–87; PULSE 83–93; RESP 16–20; TEMP 36.6–36.8; O2SAT 94–99
[2019-09-20] MEDS: oxyCODONE 5 MG Tablet PO ×4 (05:04→23:34)
[2019-09-20 05:32] LABS: Absolute Lymphocyte Count 2.24 X10^3/uL (0.83-4.51); Absolute Neutrophil Count 4.8 X10^3/uL (2.0-7.7); Basophil# 0.04 X10^3/uL; Basophil% 0.5 % (0-1); Eosinophils% 3.8 % (0-5); Hematocrit 30.2 % (37-47); Hemoglobin 9.5 g/dL (12.0-15.0); Lymphocyte # 2.24 X10^3/ul (4.0); Lymphocyte % 28.1 % (19-41); Mean Corp Hgb Conc 31.5 g/dL (32-36); Mean Corpuscular Hgb 27.5 pg (27.0-32.0); Mean Corpuscular Volume 87.5 fL (81-99); Mean Platelet Vol. 10.2 fl (6.2-12.0); Monocyte# 0.55 X10^3/uL; Monocyte% 6.9 % (0-10); NRBC Flagged by Analyzer 0 % (0-5); Neutrophil # 4.83 X10^3/uL (2.7-7.7); Neutrophil % 60.6 % (47-70); Platelet Count 266 K/mm3 (150-450); RBC Distribution Width CV 15.6 % (11.6-14.6); RBC Distribution Width SD 50.1 fl (35.1-43.9); Red Blood Count 3.45 M/mm3 (4.2-5.4)
[2019-09-20 05:52] LABS: Magnesium 2.6 mg/dL (1.6-2.6)
[2019-09-20 05:55] LABS: ALB/GLOB Ratio 0.9 RATIO (0.9-2.4); AST(SGOT) 31 U/L (15-37); Alanine Aminotransfer ALT/SGPT 83 U/L (13-56); Alkaline Phosphatase 248 U/L (45-117); Anion Gap 6 (5-15); BUN 40 mg/dL (7-18); BUN/Creat Ratio 19.4 RATIO (10-20); Calcium,Total 8.3 mg/dL (8.5-10.1); Chloride 106 mmol/L (98-107); Creatinine, Serum 2.06 mg/dL (0.55-1.02); EST Glomerular Filtration Rate 26 mL/min (>60); Est Glom Filt Rate - Afr Amer 31 mL/min (>60); Estimated Creatinine Clearance 36.79 ml/min; Globulin 3.3 g/dL (2.2-4.2); Glucose 200 mg/dL (74-106); Protein, Total 6.3 g/dL (6.4-8.2); Sodium Level 138 mmol/L (136-145)
[2019-09-20] MEDS: Ipratropium/Albuterol Sulfate 3 ML AMPUL.NEB INHALATION ×3 (06:42→19:13)
--- NOTE | 2019-09-20 07:32 | PN_ITS ---
Reason for Visit: Follow-up acute congestive heart failure Subjective: Patient is a 63-year-old lady with multiple comorbidities who presented with increasing shortness of breath and fluid retention over several days.. An assessment of acute congestive heart failure with reduced ejection fraction was made admitted to monitored bed for further management Objective: GENERAL: cooperative HEENT: Atraumatic; EYES; Anicteric, Normal Conjunctiva NECK; supple, normal thyroid, RESPIRATORY: Diminished to auscultation CARDIOVASCULAR: Regular S1 S2, systolic murmur GI: soft, normoactive bowel sounds, : No Renal angle tenderness; EXTREMITIES: Edema involving both lower extremities MUSCULOSKELETAL: no muscle waisting NEURO: Awake; no lateralizing signs. SKIN: No Rash PSYCH; Flat affect Vitals/I&O's: Vital Signs Temp Pulse Resp BP Pulse Ox 98.1 F 87 20 H 109/87 H 97 09/20/19 04:50 09/20/19 06:43 09/20/19 06:43 09/20/19 04:50 09/20/19 06:43 Oxygen Flow Rate (L/min) 2 Oxygen Delivery Method Room Air Weight: 83.37 kg Body Mass Index (BMI) 37.1 Intake and Output for Last 24 Hours 09/18/19 09/19/19 09/20/19 23:59 23:59 23:59 Intake Total 75 / 75 150 / 150 Balance 75 / 75 150 / 150 Laboratory Results 09/19/19 16:15: WBC 7.5, RBC 3.45 L, Hgb 9.5 L, Hct 30.2 L, MCV 87.5, MCH 27.5, MCHC 31.5 L, RDW Std Deviation 50.1 H, RDW Coeff of Jade 15.7 H, Plt Count 233, MPV 10.3, Immature Gran % (Auto) 0.400, Neut % (Auto) 72.8 H, Lymph % (Auto) 17.5 L, [place] % (Auto) 7.0, Eos % (Auto) 1.9, Baso % (Auto) 0.4, Absolute Neuts (auto) 5.5, Absolute Lymphs (auto) 1.31, Nucleated RBC % 0 09/19/19 16:15: Sodium 138, Potassium 4.6, Chloride 105, Carbon Dioxide 24.0, Anion Gap 9, BUN 40 H, Creatinine 2.06 H, Estim Creat Clear Calc 36.80, Est GFR (MDRD) Af Amer 31 L, Est GFR (MDRD) Non-Af 26 L, BUN/Creatinine Ratio 19.4, Glucose 327 H, Calcium 8.8, Magnesium 2.2, Troponin I 0.143 H 09/19/19 16:15: PT 15.2 H, INR 1.3 09/19/19 16:15: B-Natriuretic Peptide 3125.2 H 09/19/19 22:43: POC Glucose 241 H 09/20/19 05:20: WBC 8.0, RBC 3.45 L, Hgb 9.5 L, Hct 30.2 L, MCV 87.5, MCH 27.5, MCHC 31.5 L, RDW Std Deviation 50.1 H, RDW Coeff of Jade 15.6 H, Plt Count 266, MPV 10.2, Immature Gran % (Auto) 0.100, Neut % (Auto) 60.6, Lymph % (Auto) 28.1, [place] % (Auto) 6.9, Eos % (Auto) 3.8, Baso % (Auto) 0.5, Absolute Neuts (auto) 4.8, Absolute Lymphs (auto) 2.24, Nucleated RBC % 0 09/20/19 05:20: Sodium 138, Potassium 4.0, Chloride 106, Carbon Dioxide 26.0, Anion Gap 6, BUN 40 H, Creatinine 2.06 H, Estim Creat Clear Calc 36.79, Est GFR (MDRD) Af Amer 31 L, Est GFR (MDRD) Non-Af 26 L, BUN/Creatinine Ratio 19.4, Glucose 200 H, Calcium 8.3 L, Total Bilirubin 0.20, AST 31, ALT 83 H, Alkaline Phosphatase 248 H, Total Protein 6.3 L, Albumin 3.0 L, Globulin 3.3, Albumin/Globulin Ratio 0.9 09/20/19 05:20: Magnesium 2.6 Current Medications Albuterol/Ipratropium (Duoneb) 3 ml INHALATION Q6H.RT ALBERTO Last Admin: 09/20/19 06:42 Dose: 3 ml Documented by: Aspirin (Aspirin, Baby) 81 mg PO DAILY@0800 ALBERTO Atorvastatin Calcium (Lipitor) 40 mg PO QHS [facility] Buspirone HCl (Buspar) 15 mg PO 4X/DAY ALBERTO Last Admin: 09/19/19 23:36 Dose: 15 mg Documented by: Clopidogrel Bisulfate (Plavix) 75 mg PO DAILY [facility] Dextrose (D50w Syringe) 0 gm IV X1 PRN; Protocol PRN Reason: Hypoglycemia Enoxaparin Sodium (Lovenox) 40 mg SC DAILY [facility] Ergocalciferol (Vitamin D) 50,000 unit PO WE [facility] Furosemide (Lasix) 40 mg IV BID@1000,1800 [facility] Glucagon () 1 mg IM .X1 PRN PRN Reason: Hypoglycemia Insulin Glargine (Lantus (Bkc)) 16 units SC QHS [facility] Insulin Human Lispro (Humalog Kwikpen (Bkc)) 0 unit SC TIDCM [facility]; Protocol Insulin Human Lispro (Humalog Kwikpen (Bkc)) 0 unit SC TIDAC [facility]; Protocol Melatonin (Melatonin) 10 mg PO QHS [facility] Last Admin: 09/19/19 23:37 Dose: 10 mg Documented by: Metoprolol Succinate (Toprol Xl (Beta Kristy)) 25 mg PO DAILY [facility] Nutritional Formula (Lactose Free) (Ensure Enlive) 120 ml PO 4X/DAY [facility] Last Admin: 09/19/19 22:35 Dose: Not Given Documented by: Oxycodone HCl (Oxyir) 5 mg PO Q6H PRN PRN PRN Reason: Pain Score 6-10/10 Last Admin: 09/20/19 05:04 Dose: 5 mg Documented by: Potassium Chloride (K-Dur) 20 meq PO BID [facility] Sertraline HCl (Zoloft) 50 mg PO DAILY [facility] Sodium Chloride () 10 - 40 ml IV UD PRN PRN Reason: SALINE FLUSH Triamcinolone Acetonide (Kenalog Ointment) 1 applic TOPICAL QHS [facility] STROKE Vital Signs/Narrative: Vital Signs Temp Pulse Resp BP Pulse Ox 09/20/19 06:43 87 20 H 97 09/20/19 04:50 98.1 F 87 16 109/87 H 95 Medical Necessity - Tobacco Use Smoking Status: Former smoker Tobacco Use: Cigarettes Assessment/Plan All Active Problems (Last Reviewed 09/19/19 @ 22:[address] Jose Neely, DO) Acute respiratory failure with hypoxia (Acute) COPD exacerbation (Acute) CHF exacerbation (Acute) History of coronary artery stent placement (Resolved 05/18/18) Acute on chronic combined systolic (congestive) and diastolic (congestive) heart failure (Acute) Acute exacerbation of CHF (congestive heart failure) (Resolved) COPD exacerbation (Resolved) Chronic ulcer of buttock (Resolved) Flash pulmonary edema (Resolved) Patient is a 63-year-old lady with multiple comorbidities who presented with increasing shortness of breath and fluid retention over several days.. An assessment of acute congestive heart failure with reduced ejection fraction was made admitted to monitored bed for further management 1. Acute on chronic congestive heart failure with reduced ejection fraction ?Echo obtained on 07/15/2019 demonstrated EF of 45% with severe eccentric mitral valve regurgitation as well as moderate tricuspid valve insufficiency with moderate pulmonary hypertension with RVSP of 55 mmHg. Patient has been admitted to monitored bed placed on fluid restriction, strict input and output, daily weight, as well as IV Lasix. Patient responding to treatment 2. Coronary artery disease ?Patient apparently underwent repeat left heart catheterization on 06/29/2019 at [facility] requiring balloon angioplasty of an in-stent restenosis of an LAD 3. Valvular heart disease ?As stated above echo obtained on 07/15/2019 demonstrated severe eccentric mitral valve regurgitation. Patient to follow-up with cardiology as outpatient for subsequent management 4. Dyslipidemia ~patient is on statin therapy, continued at home dose 5. Peripheral arterial disease ?With history of right carotid endarterectomy as well as angioplasty involving popliteal as well as supra superficial femoral artery on 11/14/[address] Jimenez 6. Diabetes mellitus type II -Controlled diabetes placed on long-acting insulin in addition to Accu-Cheks a.c. and at bedtime and covered with sliding scale insulin 7. Hypertension ~ blood pressure controlled, home medications continued with dose adjustment as needed 8. COPD ?Aerosol treatment as needed 9. Depression ?Patient is on SSRI 10. DVT prophylaxis ~ on enoxaparin Inpatient E&M: [id number] Subs Hosp L2
[2019-09-20] MEDS: Aspirin 81 MG TAB.CHEW PO (07:40)
[2019-09-20] MEDS: Insulin Lispro 100 UNIT/ML INSULN.PEN SC ×4 (07:41→16:42)
[2019-09-20 08:20] LABS: Bedside Glucose 198 mg/dL (70-110)
[2019-09-20] MEDS: Sertraline 50 MG Tablet PO (09:45)
[2019-09-20] MEDS: busPIRone 15 MG TABLET PO ×4 (09:45→22:06)
[2019-09-20] MEDS: Clopidogrel Bisulfate 75 MG Tablet PO (09:45)
[2019-09-20] MEDS: Metoprolol(XL)Succ 25 MG Tablet PO (09:45)
[2019-09-20] MEDS: Furosemide 40 MG/4 ML Vial IV ×2 (09:48→17:50)
[2019-09-20] MEDS: 0.9% Saline Lock 10 ML Syringe IV ×2 (09:49→17:56)
[2019-09-20] MEDS: Enoxaparin 40 MG/0.4 ML Syringe SC (09:52)
--- NOTE | 2019-09-20 11:00 | CASEMGMT ---
SAM GUTHRIE Face to Face with patient for initial transition planning/care coordination assessment. SAM GUTHRIE introduced self and role at [facility]. Patient lying in bed, alert and oriented. Patient willing to participate in assessment and is able to answer all questions appropriately. Care providers, pharmacy, and demographics verified. Patient wishes to discharge home with resumption of HHC with [facility]. Patient states she has no further needs or concerns at this time. CM to follow for discharge planning needs that may arise. PCP: Barbara Specialists: Florentino solid propellant processor; Sukhjinder apprise counselor Preferred Pharmacy: [facility] Insurance: [facility] Prescription Benefit: yes Living Will/HPOA: none LNOK: and son Living Arrangements: Patient is currently staying at son's first floor apartment with 1 step to enter the home. 8 steps to bathroom with railing. Patient states she mostly independent at home. Son assist with tub transfers. Transportation: [facility]/C: Patient has shower chair, raised toilet, cane, walker, and nebulizer at home. Patient denies previous SNF. SAM GUTHRIE called [facility] and notified of admission and resumption of care at discharge. Disposition Plan: Patient to discharge home with [facility], family support, and follow-up plans in place. Steph NGUYEN, RN, CM
[2019-09-20 11:50] LABS: Bedside Glucose 275 mg/dL (70-110)
[2019-09-20 16:55] LABS: Bedside Glucose 168 mg/dL (70-110)
[2019-09-20] MEDS: Triamcinolone Ointment 1 APPLIC TUBE TOPICAL (22:06)
[2019-09-20] MEDS: Atorvastatin Calcium 40 MG Tablet PO (22:06)
[2019-09-20] MEDS: MELATONIN 10 MG TABLET PO (22:06)
[2019-09-20 22:21] LABS: Bedside Glucose 276 mg/dL (70-110)
[2019-09-21] VITALS (7 sets, daily range): BP systolic 123–133; BP diastolic 79–82; PULSE 78–95; RESP 18–20; TEMP 36.6–36.9; O2SAT 96–99
[2019-09-21] MEDS: Ipratropium/Albuterol Sulfate 3 ML AMPUL.NEB INHALATION ×2 (01:10→06:31)
[2019-09-21] MEDS: oxyCODONE 5 MG Tablet PO ×2 (05:33→11:22)
[2019-09-21] MEDS: Insulin Lispro 100 UNIT/ML INSULN.PEN SC ×2 (08:29→08:30)
[2019-09-21] MEDS: Aspirin 81 MG TAB.CHEW PO (08:32)
[2019-09-21] MEDS: Enoxaparin 40 MG/0.4 ML Syringe SC (08:32)
[2019-09-21] MEDS: Furosemide 40 MG/4 ML Vial IV (08:32)
[2019-09-21] MEDS: busPIRone 15 MG TABLET PO (08:32)
[2019-09-21] MEDS: Metoprolol(XL)Succ 25 MG Tablet PO (08:33)
[2019-09-21] MEDS: Clopidogrel Bisulfate 75 MG Tablet PO (08:33)
[2019-09-21] MEDS: Sertraline 50 MG Tablet PO (08:34)
[2019-09-21 08:51] LABS: Bedside Glucose 335 mg/dL (70-110)
[2019-09-21 08:55] LABS: Hematocrit 31.4 % (37-47); Mean Corp Hgb Conc 31.8 g/dL (32-36); Mean Corpuscular Hgb 28.7 pg (27.0-32.0); Mean Corpuscular Volume 90.2 fL (81-99); Mean Platelet Vol. 10.2 fl (6.2-12.0); Platelet Count 258 K/mm3 (150-450); RBC Distribution Width CV 15.7 % (11.6-14.6); RBC Distribution Width SD 51.8 fl (35.1-43.9); Red Blood Count 3.48 M/mm3 (4.2-5.4); White Blood Count 7.3 K/mm3 (4.4-11.0)
[2019-09-21 09:07] LABS: Anion Gap 6 (5-15); BUN 46 mg/dL (7-18); BUN/Creat Ratio 20.8 RATIO (10-20); Calcium,Total 8.4 mg/dL (8.5-10.1); Chloride 106 mmol/L (98-107); Creatinine, Serum 2.21 mg/dL (0.55-1.02); EST Glomerular Filtration Rate 24 mL/min (>60); Est Glom Filt Rate - Afr Amer 29 mL/min (>60); Estimated Creatinine Clearance 34.26 ml/min; Glucose 345 mg/dL (74-106); Magnesium 2.7 mg/dL (1.6-2.6); Potassium 4.9 mmol/L (3.5-5.1); Sodium Level 137 mmol/L (136-145)
--- NOTE | 2019-09-21 09:53 | PCM.DC ---
You will use the following diet at home:: Calorie/Carbohydrate Controlled (specify 1200, 1400, etc) - 1800, Fluid restricted (specify 2000 mls, 1500 mls) - 2000 Your food should be the consistency of: Regular Discharge Activity: Return to Normal Activity, May not drive while taking narcotic pain medications. Allergies/Adverse Reactions: Allergies Penicillins Allergy (Severe, Verified 09/19/19 14:40) Swelling tolerated keflex in past with no issue Medications to take at Discharge Insulin Lispro [Humalog KwikPen] See Protocol SQ TIDCM 12/20/17 Clopidogrel Bisulfate [Clopidogrel] 75 mg PO DAILY 05/24/18 [place]-3 Fatty Acids [[place]-3] 2,000 mg PO DAILY 05/24/18 Ergocalciferol (Vitamin D2) [Vitamin D2] 50,000 unit PO WE 06/11/18 sertraline 50 mg tablet 50 mg PO DAILY 08/17/18 Aspirin [Aspirin, Baby] 81 mg PO DAILY@0800 07/12/19 Mometasone Furoate [[place]] 1 applic TP QHS 07/15/19 Atorvastatin Calcium [Lipitor] 40 mg PO QHS 09/19/19 Buspirone HCl 15 mg PO 4X/DAY 09/19/19 Ipratropium/Albuterol Sulfate [Duoneb] 3 ml INHALATION Q6H.RT 09/19/19 Melatonin Tr 10 mg Tablet 10 mg PO QHS 09/19/19 Metoprolol(XL)Succ [Toprol Xl (Beta Kristy)] 25 mg PO DAILY 09/19/19 Oxycodone HCl 5 mg PO Q6H PRN PRN 09/19/19 Potassium Chloride [K-Dur] 20 meq PO BID 09/19/19 Furosemide [Lasix] 80 mg PO DAILY #60 tab 09/21/19 Insulin Glargine,Hum.rec.anlog [Basaglar Kwikpen U-100] 20 unit SQ QHS #0 09/21/19 The following prescriptions were given: Furosemide [Lasix] 80 mg PO DAILY #60 tab Transmission Status: Pending to [facility] Primary Care Physician: Evens Jimenez III, MD [Primary Care Provider] - Please follow up with your Primary Care Physician in: Call to schedule appointment Test Results: Test results from this visit will be discussed in further detail at your follow-up appointment, if applicable. Proposed Discharge Date: 09/21/19
--- NOTE | 2019-09-21 10:15 | DS.PCM_ITS ---
Discharge Date and Diagnosis Date of Admission: 09/19/19 Date of Discharge: 09/21/19 - Primary Discharge Diagnosis Acute on chronic systolic heart failure with reduced ejection fraction - Secondary Discharge Diagnosis Chronic Problems (Last Reviewed 09/19/19 @ 22:[address] Jose Neely, DO) Chronic combined systolic and diastolic CHF (congestive heart failure) (Chronic) Former tobacco use (Chronic) Bilateral carotid artery stenosis (Chronic) RCEA and L carotid 70-80% stenosis Atherosclerosis of coronary artery of [place] heart without angina pectoris (Chronic) PCI-JAZIEL-LAD w/ 2.0 x 30 mm and 2.5 x 34 mm Resolute Issa and PCI-JAZIEL-Mid LCx w/ Resolute Issa 2.0 x 30 mm and 2.0 x 22 mm Stent 05/18/2018 Non-rheumatic tricuspid valve insufficiency (Chronic) Secondary pulmonary arterial hypertension (Chronic) Nonrheumatic mitral (valve) insufficiency (Chronic) CVA (cerebral vascular accident) (Chronic) Essential (primary) hypertension (Chronic) Hyperlipidemia (Chronic) Nicotine dependence (Chronic) Hospital Course and Treatment Operations: None Summary of Care Provided: Patient is a 63-year-old lady with multiple comorbidities who presented with increasing shortness of breath and fluid retention over several days.. An assessment of acute congestive heart failure with reduced ejection fraction was made admitted to monitored bed for further management 1. Acute on chronic congestive heart failure with reduced ejection fraction ?Echo obtained on 07/15/2019 demonstrated EF of 45% with severe eccentric mitral valve regurgitation as well as moderate tricuspid valve insufficiency with moderate pulmonary hypertension with RVSP of 55 mmHg. Patient has been admitted to monitored bed placed on fluid restriction, strict input and output, daily weight, as well as IV Lasix. Patient responding to treatment 2. Coronary artery disease ?Patient apparently underwent repeat left heart catheterization on 06/29/2019 at [facility] requiring balloon angioplasty of an in-stent restenosis of an LAD 3. Valvular heart disease ?As stated above echo obtained on 07/15/2019 demonstrated severe eccentric mitral valve regurgitation. Patient to follow-up with cardiology as outpatient for subsequent management 4. Dyslipidemia ~patient is on statin therapy, continued at home dose 5. Peripheral arterial disease ?With history of right carotid endarterectomy as well as angioplasty involving popliteal as well as supra superficial femoral artery on 11/14/[address] Jimenez 6. Diabetes mellitus type II -Controlled diabetes placed on long-acting insulin in addition to Accu-Cheks a.c. and at bedtime and covered with sliding scale insulin 7. Hypertension ~ blood pressure controlled, home medications continued with dose adjustment as needed 8. COPD ?Aerosol treatment as needed 9. Depression ?Patient is on SSRI 10. DVT prophylaxis ~ on enoxaparin Objective: GENERAL: cooperative HEENT: Atraumatic; EYES; Anicteric, Normal Conjunctiva NECK; supple, normal thyroid, RESPIRATORY: Diminished to auscultation CARDIOVASCULAR: Regular S1 S2, systolic murmur GI: soft, normoactive bowel sounds, : No Renal angle tenderness; EXTREMITIES: Edema involving both lower extremities MUSCULOSKELETAL: no muscle waisting NEURO: Awake; no lateralizing signs. SKIN: No Rash PSYCH; Flat affect - Physical Exam Vitals/I&O's: Vital Signs Temp Pulse Resp BP Pulse Ox 98.4 F 89 18 123/79 H 99 09/21/19 09:14 09/21/19 09:14 09/21/19 09:14 09/21/19 09:14 09/21/19 09:14 Oxygen Flow Rate (L/min) 1 Oxygen Delivery Method Nasal Cannula Weight: 83.3 kg Body Mass Index (BMI) 37.1 Intake and Output for Last 24 Hours 09/19/19 09/20/19 09/21/19 23:59 23:59 23:59 Intake Total 75 / 75 570 / 570 100 / 100 Output Total 0 / 0 Balance 75 / 75 570 / 570 100 / 100 Laboratory Results 09/20/19 11:34: POC Glucose 275 H 09/20/19 16:37: POC Glucose 168 H 09/20/19 22:05: POC Glucose 276 H 09/21/19 08:28: POC Glucose 335 H 09/21/19 08:44: WBC 7.3, RBC 3.48 L, Hgb 10.0 L, Hct 31.4 L, MCV 90.2, MCH 28.7, MCHC 31.8 L, RDW Std Deviation 51.8 H, RDW Coeff of Jade 15.7 H, Plt Count 258, MPV 10.2 09/21/19 08:44: Sodium 137, Potassium 4.9, Chloride 106, Carbon Dioxide 25.0, Anion Gap 6, BUN 46 H, Creatinine 2.21 H, Estim Creat Clear Calc 34.26, Est GFR (MDRD) Af Amer 29 L, Est GFR (MDRD) Non-Af 24 L, BUN/Creatinine Ratio 20.8 H, Glucose 345 H, Calcium 8.4 L, Magnesium 2.7 H Current Medications Albuterol/Ipratropium (Duoneb) 3 ml INHALATION Q6H.RT [facility] Last Admin: 09/21/19 06:31 Dose: 3 ml Documented by: Aspirin (Aspirin, Baby) 81 mg PO DAILY@0800 [facility] Last Admin: 09/21/19 08:32 Dose: 81 mg Documented by: Atorvastatin Calcium (Lipitor) 40 mg PO QHS [facility] Last Admin: 09/20/19 22:06 Dose: 40 mg Documented by: Buspirone HCl (Buspar) 15 mg PO 4X/DAY [facility] Last Admin: 09/21/19 08:32 Dose: 15 mg Documented by: Clopidogrel Bisulfate (Plavix) 75 mg PO DAILY [facility] Last Admin: 09/21/19 08:33 Dose: 75 mg Documented by: Dextrose (D50w Syringe) 0 gm IV X1 PRN; Protocol PRN Reason: Hypoglycemia Enoxaparin Sodium (Lovenox) 40 mg SC DAILY [facility] Last Admin: 09/21/19 08:32 Dose: 40 mg Documented by: Ergocalciferol (Vitamin D) 50,000 unit PO [facility] Furosemide (Lasix) 40 mg IV BID@1000,1800 [facility] Last Admin: 09/21/19 08:32 Dose: 40 mg Documented by: Glucagon () 1 mg IM .X1 PRN PRN Reason: Hypoglycemia Insulin Glargine (Lantus (Bkc)) 16 units SC QHS [facility] Last Admin: 09/20/19 22:06 Dose: 16 units Documented by: Insulin Human Lispro (Humalog Kwikpen (Bkc)) 0 unit SC TIDCM [facility]; Protocol Last Admin: 09/21/19 08:29 Dose: 6 u Documented by: Insulin Human Lispro (Humalog Kwikpen (Bkc)) 0 unit SC TIDAC [facility]; Protocol Last Admin: 09/21/19 08:30 Dose: 5 u Documented by: Melatonin (Melatonin) 10 mg PO QHS [facility] Last Admin: 09/20/19 22:06 Dose: 10 mg Documented by: Metoprolol Succinate (Toprol Xl (Beta Kristy)) 25 mg PO DAILY [facility] Last Admin: 09/21/19 08:33 Dose: 25 mg Documented by: Nutritional Formula (Lactose Free) (Ensure Enlive) 120 ml PO 4X/DAY [facility] Last Admin: 09/21/19 09:09 Dose: Not Given Documented by: Oxycodone HCl (Oxyir) 5 mg PO Q6H PRN PRN PRN Reason: Pain Score 6-10/10 Last Admin: 09/21/19 05:33 Dose: 5 mg Documented by: Potassium Chloride (K-Dur) 20 meq PO BID [facility] Last Admin: 09/21/19 08:32 Dose: 20 meq Documented by: Sertraline HCl (Zoloft) 50 mg PO DAILY [facility] Last Admin: 09/21/19 08:34 Dose: 50 mg Documented by: Sodium Chloride () 10 - 40 ml IV UD PRN PRN Reason: SALINE FLUSH Last Admin: 09/20/19 17:56 Dose: 10 ml Documented by: Triamcinolone Acetonide (Kenalog Ointment) 1 applic TOPICAL QHS [facility] Last Admin: 09/20/19 22:06 Dose: 1 applic Documented by: Discharge Activity: Return to Normal Activity, May not drive while taking narcotic pain medications. Home Medications: Medications to take at Discharge Insulin Lispro [Humalog KwikPen] See Protocol SQ TIDCM 12/20/17 Clopidogrel Bisulfate [Clopidogrel] 75 mg PO DAILY 05/24/18 [place]-3 Fatty Acids [[place]-3] 2,000 mg PO DAILY 05/24/18 Ergocalciferol (Vitamin D2) [Vitamin D2] 50,000 unit PO WE 06/11/18 sertraline 50 mg tablet 50 mg PO DAILY 08/17/18 Aspirin [Aspirin, Baby] 81 mg PO DAILY@0800 07/12/19 Mometasone Furoate [Elocon] 1 applic TP QHS 07/15/19 Atorvastatin Calcium [Lipitor] 40 mg PO QHS 09/19/19 Buspirone HCl 15 mg PO 4X/DAY 09/19/19 Ipratropium/Albuterol Sulfate [Duoneb] 3 ml INHALATION Q6H.RT 09/19/19 Melatonin Tr 10 mg Tablet 10 mg PO QHS 09/19/19 Metoprolol(XL)Succ [Toprol Xl (Beta Kristy)] 25 mg PO DAILY 09/19/19 Oxycodone HCl 5 mg PO Q6H PRN PRN 09/19/19 Potassium Chloride [K-Dur] 20 meq PO BID 09/19/19 Furosemide [Lasix] 80 mg PO DAILY #60 tab 09/21/19 Insulin Glargine,Hum.rec.anlog [Basaglar Kwikpen U-100] 20 unit SQ QHS #0 09/21/19 Following Prescrptions Were Given to Patient: Furosemide [Lasix] 80 mg PO DAILY #60 tab Transmission Status: Pending to [facility] [employer] [facility]30 Primary Care Physician: Evens Jimenez III, MD [Primary Care Provider] - Please follow up with your Primary Care Physician in: Call to schedule appointment Disposition: Home Minutes spent on discharge:: 45 Patient Condition:: Stable Medical Necessity - Tobacco Use Smoking Status: Former smoker Tobacco Use: Cigarettes Meaningful Use Info Meaningful Use Diagnoses (Choose all that apply): CHF - CHF ALEJANDRA/ARB ordered at discharge?: No Reason ALEJANDRA/ARB not ordered?: Worsening renal disease Documented LVEF (%): 45 Inpatient E&M: [id number] Disch Hosp
--- NOTE | 2019-09-23 15:36 | CASEMGMT ---
SAM GUTHRIE F/U Phone call LACE: 12 Strata: 3 Discharge date: 09/21/2019 Call date: 09/23/2019 Call time: [phone] Attempted to reach pt at multiple numbers without success at this time and this SAM GUTHRIE unable to leave message d/t unidentified voicemail set up. [place] SAM CM Admission dx: CHF
== END 2019-09-21 11:41 | disposition home or self-care (01) | DRG 194 ==
LOC: ED 15:17 → PCU 22:42
PROVIDERS: Hospitalist; Emergency Provider Emergency Medicine; PCP Family Medicine; Visit Provider Internal Medicine
DX: I11.0 Hypertensive heart disease with heart failure (principal); I50.43 Acute on chronic combined systolic (congestive) and diastolic (congestive) heart failure; I25.10 Atherosclerotic heart disease of native coronary artery without angina pectoris; I25.2 Old myocardial infarction; I65.23 Occlusion and stenosis of bilateral carotid arteries; I36.1 Nonrheumatic tricuspid (valve) insufficiency; I34.0 Nonrheumatic mitral (valve) insufficiency; I27.21 Secondary pulmonary arterial hypertension; J44.9 Chronic obstructive pulmonary disease, unspecified; E11.51 Type 2 diabetes mellitus with diabetic peripheral angiopathy without gangrene; E78.5 Hyperlipidemia, unspecified; F32.9 Major depressive disorder, single episode, unspecified; Z79.02 Long term (current) use of antithrombotics/antiplatelets; Z79.4 Long term (current) use of insulin; Z79.899 Other long term (current) drug therapy; Z86.73 Personal history of transient ischemic attack (TIA), and cerebral infarction without residual deficits; Z87.891 Personal history of nicotine dependence
CPT/HCPCS: 36415; 71045; 80048; 80053; 82962; 83735; 83880; 84484; 85025; 85027; 85610; 93005; 94640; 96374; 97802; 99285; A4216; J1940

== ENCOUNTER 2019-09-28 04:12 | Inpatient (IN) | payer MEDICAID, SELFPAY ==
[2019-09-19 18:29] VITALS: BMI 37.1
[2019-09-28] VITALS (13 sets, daily range): BP systolic 120–151; BP diastolic 66–97; PULSE 86–100; RESP 16–27; TEMP 36.5–36.9; O2SAT 95–100; BMI 37.8; BMI 36.9; BMI 37.0
--- NOTE | 2019-09-28 04:17 | EKG12_ITS ---
Test Reason : SOB Blood Pressure : / mmHG Vent. Rate : 100 BPM Atrial Rate : 100 BPM P-R Int : 152 ms QRS Dur : 090 ms QT Int : 398 ms P-R-T Axes : 059 -30 131 degrees QTc Int : 513 ms Normal sinus rhythm Left axis deviation Inferior infarct , age undetermined Anteroseptal infarct . age undetermined ST & T wave abnormality, consider lateral ischemia Prolonged QT Abnormal ECG Confirmed by ANDREA GARCIA, JOE ([id number]), online editor RAYMUNDO PATEL ([id number]) on 09/30/2019 2:39:05 PM Referred By: JASON Confirmed By:JOE MENDEZ MD
--- NOTE | 2019-09-28 04:23 | ED.DCSUM_ITS ---
- ER Visit Summary Date of Service: 09/28/19 Chief Complaint: Shortness of breath History of Present Illness: The patient is a 63 F who presents with shortness of breath. She states it started last night when she tried to go to bed. She states that she tried to lay flat but she got more short of breath and could not fall asleep. Sitting up made her symptoms better. She denies a cough, fever or chest pain. The patient does have a history of CHF and is on Lasix and she has been taking it normally. She denies any exposures to coronavirus. She states that she has had noticed an increase in leg swelling and her legs feel very tight. She denies any redness to the legs. Physical Examination: Vital signs reviewed. HEENT exam unremarkable. Heart is regular rate and rhythm without murmurs. Lungs do have rales in the bases and she is tachypneic at times. Abdomen is soft and nontender. Extremities reveal 2+ edema to the knees bilaterally. Skin exam normal. Neurologic exam normal. Test Results: EKG is normal sinus rhythm with rate of 100. Nonspecific ST changes. Hemoglobin 9.8. Her creatinine is 2.24 which is baseline for her. Troponin is 0.424 and BNP 4782. Chest x-ray was read by radiology as chronic changes with nothing acute Emergency Department Course and Treatment: The patient was given a dose of IV Lasix. Her troponin and BNP are higher than what they were when she was admitted on September 18. The patient's chest x-ray is read as unremarkable but I feel she likely has some CHF. While laying in bed she was 88% on room air. Patient was discussed with the hospitalist and she will be admitted for further management Treatment Plan: [] Disposition: Admit Impression: CHF exacerbation This note was generated with [employer] dictation software. It may contain incorrect words, spelling, and punctuation that were not noted in review of the chart prior to signing ED Disposition - Plan for ED Patient: Referrals: Evens Jimenez III, MD [Primary Care Provider] -
--- NOTE | 2019-09-28 04:45 | RAD_ITS ---
STUDY: X-RAY CHEST REASON FOR EXAM: Female, 63 years old. SOB AND BILATERAL LOWER EXTREMITY EDEMA -- HX OF CHF AND COPD TECHNIQUE: Frontal view COMPARISON: 09/19/2019 FINDINGS: The lungs are clear and expanded. There is no demonstrated pleural abnormality. The heart is borderline enlarged. Normal mediastinum and tom. Normal visualized pulmonary arteries. Normal visualized aortic arch and descending thoracic aorta. Normal visualized thoracic spine. Normal visualized ribs, clavicles, and shoulders. There is no demonstrated abnormality of the visualized soft tissue structures of the upper abdomen. RAD/Chest 1 View (Portable) IMPRESSION: There is NO acute cardiopulmonary abnormality. Electronically Signed: Sam Cruz MD at 5:09 EDT , Service support ,
[2019-09-28] MEDS: Furosemide 40 MG/4 ML Vial IV (05:01)
[2019-09-28 05:06] LABS: Absolute Lymphocyte Count 1.19 X10^3/uL (0.83-4.51); Absolute Neutrophil Count 5.7 X10^3/uL (2.0-7.7); Basophil# 0.03 X10^3/uL; Basophil% 0.4 % (0-1); Eosinophil# 0.09 X10^3/uL; Eosinophils% 1.2 % (0-5); Hematocrit 32.1 % (37-47); Hemoglobin 9.8 g/dL (12.0-15.0); Lymphocyte # 1.19 X10^3/ul (4.0); Lymphocyte % 15.3 % (19-41); Mean Corp Hgb Conc 30.5 g/dL (32-36); Mean Corpuscular Hgb 27.2 pg (27.0-32.0); Mean Corpuscular Volume 89.2 fL (81-99); Mean Platelet Vol. 9.6 fl (6.2-12.0); Monocyte# 0.73 X10^3/uL; Monocyte% 9.4 % (0-10); NRBC Flagged by Analyzer 0 % (0-5); Neutrophil # 5.69 X10^3/uL (2.7-7.7); Neutrophil % 73.3 % (47-70); Platelet Count 298 K/mm3 (150-450); RBC Distribution Width CV 16.1 % (11.6-14.6); White Blood Count 7.8 K/mm3 (4.4-11.0)
[2019-09-28] MEDS: Morphine 2 MG/ML Syringe IV (05:34)
[2019-09-28 05:47] LABS: Anion Gap 9 (5-15); BUN 42 mg/dL (7-18); BUN/Creat Ratio 18.8 RATIO (10-20); Calcium,Total 8.5 mg/dL (8.5-10.1); Chloride 107 mmol/L (98-107); Creatinine, Serum 2.24 mg/dL (0.55-1.02); EST Glomerular Filtration Rate 23 mL/min (>60); Est Glom Filt Rate - Afr Amer 28 mL/min (>60); Estimated Creatinine Clearance 34.42 ml/min; Glucose 222 mg/dL (74-106); Potassium 3.9 mmol/L (3.5-5.1); Sodium Level 138 mmol/L (136-145)
--- NOTE | 2019-09-28 06:07 | HP.PCM_ITS ---
Problem List (1) Chronic combined systolic and diastolic CHF (congestive heart failure) Status: Chronic (2) CHF exacerbation Status: Acute Qualifiers: Heart failure type: combined systolic and diastolic Qualified Code(s): I50.43 - Acute on chronic combined systolic (congestive) and diastolic (congestive) heart failure (3) Former tobacco use Status: Chronic (4) Bilateral carotid artery stenosis Status: Chronic Comment: RCEA and L carotid 70-80% stenosis (5) Atherosclerosis of coronary artery of [place] heart without angina pectoris Status: Chronic Qualifiers: Coronary Disease-Associated Artery/Lesion type: unspecified vessel or lesion type Qualified Code(s): I25.10 - Atherosclerotic heart disease of [place] coronary artery without angina pectoris Comment: PCI-JAZIEL-LAD w/ 2.0 x 30 mm and 2.5 x 34 mm Resolute [place] and PCI-JAZIEL-Mid LCx w/ Resolute [place] 2.0 x 30 mm and 2.0 x 22 mm Stent 05/18/2018 (6) Acute on chronic combined systolic (congestive) and diastolic (congestive) heart failure Status: Acute (7) Non-rheumatic tricuspid valve insufficiency Status: Chronic (8) Secondary pulmonary arterial hypertension Status: Chronic (9) Nonrheumatic mitral (valve) insufficiency Status: Chronic (10) CVA (cerebral vascular accident) Status: Chronic Qualifiers: CVA mechanism: unspecified Qualified Code(s): I63.9 - Cerebral infarction, unspecified (11) Essential (primary) hypertension Status: Chronic (12) Hyperlipidemia Status: Chronic Qualifiers: Hyperlipidemia type: unspecified Qualified Code(s): E78.5 - Hyperlipidemia, unspecified History of Present Illness Date of Admission: 09/28/19 Chief Complaint: SOB The patient is a 63 year old F with a significant history of COPD; asthma; combined systolic and diastolic function; diabetes mellitus; CAD status post stents presenting with shortness of breath. Per patient she could not sleep because of shortness of breath. Her symptoms started the same nights of presentation. Associated with her symptoms is orthopnea and paroxysmal nocturnal dyspnea. She reports weight gain and bilateral leg swelling. Past Medical History Past Medical History (Chronic Problems): Chronic Problems (Last Reviewed 09/28/19 @ 07:[address] Kerwin Brizuela MD) Chronic combined systolic and diastolic CHF (congestive heart failure) (Chronic) Former tobacco use (Chronic) Bilateral carotid artery stenosis (Chronic) RCEA and L carotid 70-80% stenosis Atherosclerosis of coronary artery of [place] heart without angina pectoris (Chronic) PCI-JAZEIL-LAD w/ 2.0 x 30 mm and 2.5 x 34 mm Resolute Issa and PCI-JAZIEL-Mid LCx w/ Resolute [place] 2.0 x 30 mm and 2.0 x 22 mm Stent 05/18/2018 Non-rheumatic tricuspid valve insufficiency (Chronic) Secondary pulmonary arterial hypertension (Chronic) Nonrheumatic mitral (valve) insufficiency (Chronic) CVA (cerebral vascular accident) (Chronic) Essential (primary) hypertension (Chronic) Hyperlipidemia (Chronic) Medical History: Medical History (Last Reviewed 09/28/19 @ 07:[address] Kerwin Brizuela MD) Bilateral carotid artery stenosis (Chronic) I65.23 RCEA and L carotid 70-80% stenosis Atherosclerosis of coronary artery of [place] heart without angina pectoris (Chronic) I25.10 PCI-JAZIEL-LAD w/ 2.0 x 30 mm and 2.5 x 34 mm Resolute Issa and PCI-JAZIEL-Mid LCx w/ Resolute [place] 2.0 x 30 mm and 2.0 x 22 mm Stent 05/18/2018 Acute on chronic combined systolic (congestive) and diastolic (congestive) heart failure (Acute) I50.43 Non-rheumatic tricuspid valve insufficiency (Chronic) I36.1 Secondary pulmonary arterial hypertension (Chronic) I27.21 Nonrheumatic mitral (valve) insufficiency (Chronic) I34.0 CVA (cerebral vascular accident) (Chronic) I63.9 Essential (primary) hypertension (Chronic) I10 Hyperlipidemia (Chronic) E78.5 Nicotine dependence (Inactive) F17.200 Asthma J45.909 COPD (chronic obstructive pulmonary disease) J44.9 Chronic back pain M54.9, G89.29 Depression F32.9 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 Type 2 diabetes mellitus E11.9 Allergies Penicillins Allergy (Severe, Verified 09/19/19 14:40) Swelling tolerated keflex in past with no issue fluoxetine [From Prozac] Adverse Reaction (Verified 09/28/19 04:39) NEEDS FOLLOW-UP pravastatin [From Pravachol] Adverse Reaction (Verified 09/28/19 04:39) NEEDS FOLLOW-UP Home Medications: Ambulatory Orders Medication Instructions Recorded Insulin Lispro [Humalog KwikPen] 3 unit SQ TIDCM 12/20/17 Clopidogrel Bisulfate [Clopidogrel] 75 mg PO DAILY 05/24/18 [place]-3 Fatty Acids [[place]-3] 2,000 mg PO DAILY 05/24/18 Ergocalciferol (Vitamin D2) 50,000 unit PO WE 06/11/18 [Vitamin D2] sertraline 50 mg tablet 50 mg PO DAILY 08/17/18 Aspirin [Aspirin, Baby] 81 mg PO DAILY@0800 07/12/19 Atorvastatin Calcium [Lipitor] 40 mg PO QHS 09/19/19 Buspirone HCl 20 mg PO TID 09/19/19 Ipratropium/Albuterol Sulfate 3 ml INHALATION Q6H.RT 09/19/19 [Duoneb] Potassium Chloride [K-Dur] 20 meq PO BID 09/19/19 Albuterol Sulfate [Albuterol 2 puff IH Q6H PRN 09/28/19 Sulfate HFA] Amlodipine [Norvasc] 5 mg PO DAILY 09/28/19 Furosemide [Lasix] 80 mg PO BID 09/28/19 Gabapentin [Neurontin] 100 mg PO TID 09/28/19 Insulin Glargine,Hum.rec.anlog 20 unit SQ QHS 09/28/19 [Basaglar Kwikpen U-100] Loratadine 10 mg PO DAILY PRN 09/28/19 Metoprolol Succinate [Toprol Xl] 25 mg PO DAILY 09/28/19 Mometasone Furoate [Elocon] 1 applicatio TP DAILY 09/28/19 Surgical History: Surgical History (Last Reviewed 09/28/19 @ 07:[address] 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 Psychiatric History: Anxiety, Depression [employer] History: No pertinent [employer] history Smoking Status: Former smoker - *Family History Maternal Family History: Family History (Last Reviewed 03/19/19 @ 12:44 by Karin Clayton) Mother No problems noted. History Items: High Cholesterol, Heart Disease, Hypertension, Stroke, - - Patient's mother in her 40s from a cerebrovascular accident. Paternal Family History: Family History (Last Reviewed 03/19/19 @ 12:44 by Karin Clayton) Mother No problems noted. History Items: High Cholesterol, Heart Disease, Hypertension, - - Patient's fat her in his 40s from myocardial infarction. Review of Systems Constitutional: Reports: Weight Change. Denies: Chills, Fever HEENT: Denies: Head Aches, Sinus Congestion, Sinus Drainage Cardiovascular: Reports: Edema, Orthopnea, Paroxysmal Noc. Dyspnea. Denies: Chest Pain, Palpitations Respiratory: Reports: Shortness of Breath. Denies: Cough, Shortness of breath at rest, Sputum production Gastrointestinal: Denies: Abdominal Pain, Nausea, Vomiting Genitourinary: Denies: Dysuria Musculoskeletal: Reports: Leg Pain. Denies: Joint Pain, Joint Tenderness Skin: Denies: Rash, Wounds Neurological: Denies: Numbness, Tingling, Focal weakness Psychiatric: Denies: Anxiety, Depression, Homicidal Ideations, Suicidal Ideations Hematologic/ Lymphatic: Denies: Easy Bruising, Easy Bleeding VTE Information - Inpt Only VTE Present on Admission: No VTE Mechan Device Prophylaxis: None VTE Pharm Prophylaxis ordered?: Yes - Physical Exam Vitals/I&O's: Vital Signs Temp Pulse Resp BP Pulse Ox 97.7 F L 94 23 H 121/73 H 97 09/28/19 04:14 09/28/19 06:05 09/28/19 06:05 09/28/19 06:05 09/28/19 06:05 Oxygen Delivery Method Room Air Weight: 84.822 kg Body Mass Index (BMI) 37.8 General: Alert, Oriented x3, Cooperative HEENT: Atraumatic, PERRLA, EOMI, Normocephalic Neck: Supple, Trachea Midline Lungs: Rales Cardiovascular: Regular rate, Gallops, Murmur Abdomen: Bowel Sounds Present, Soft, Non Tender Extremities: Capillary Refill Less than 3 Seconds, Edema, - - loss of 5th toe of left foot Skin: - - subungual hematoma of the 2nd toe of the left foot Musculoskeletal: No Tenderness to Palpation of Joints or Extremities Neurological: Cranial nerves II-XII grossly intact Psych/Mental Status: Normal Affect, Appropriate Laboratory Results 09/28/19 04:54: WBC 7.8, RBC 3.60 L, Hgb 9.8 L, Hct 32.1 L, MCV 89.2, MCH 27.2, MCHC 30.5 L, RDW Std Deviation 53.0 H, RDW Coeff of Jade 16.1 H, Plt Count 298, MPV 9.6, Immature Gran % (Auto) 0.400, Neut % (Auto) 73.3 H, Lymph % (Auto) 15.3 L, [place] % (Auto) 9.4, Eos % (Auto) 1.2, Baso % (Auto) 0.4, Absolute Neuts (auto) 5.7, Absolute Lymphs (auto) 1.19, Nucleated RBC % 0 09/28/19 04:54: Sodium 138, Potassium 3.9, Chloride 107, Carbon Dioxide 22.0, Anion Gap 9, BUN 42 H, Creatinine 2.24 H, Estim Creat Clear Calc 34.42, Est GFR (MDRD) Af Amer 28 L, Est GFR (MDRD) Non-Af 23 L, BUN/Creatinine Ratio 18.8, Glucose 222 H, Calcium 8.5, Troponin I 0.424 H 09/28/19 04:54: B-Natriuretic Peptide 4782.2 H Assessment/Plan All Active Problems (Last Reviewed 09/28/19 @ 07:[address] Kerwin Brizuela MD) CHF exacerbation (Acute) History of coronary artery stent placement (Resolved 05/18/18) Acute on chronic combined systolic (congestive) and diastolic (congestive) heart failure (Acute) Acute exacerbation of CHF (congestive heart failure) (Resolved) COPD exacerbation (Resolved) Chronic ulcer of buttock (Resolved) Flash pulmonary edema (Resolved) The patient is a 63 year old F with a significant history of COPD; asthma; combined systolic and diastolic function; diabetes mellitus presenting with shortness of breath; orthopnea; placement: PND; bilateral leg edema; weight gain; and elevated BNP consistent with acute on chronic combined systolic and diastolic heart failure.. Acute on chronic combined systolic and diastolic heart failure. BNP on presentation was 4,782.2. Chest x-ray was independently reviewed. It showed cardiomegaly. Previous chest x-ray was also reviewed. I agree with radiologist interpretation there was no acute cardiopulmonary abnormality. Echocardiogram on 07/12/2019: Estimated ejection fraction of 45%; stage I diastolic dysfunction; left atrium was moderately enlarged; severe eccentric mitral valve insufficiency; moderate tricuspid valve insufficiency; RVSP was 55; moderate pulmonary hypertension; trivial aortic valve insufficiency. Place on monitored bed on PCU Weight on admission to the floor; and then daily Strict I&O's EKG on admission: Q waves in leads III; aVF; V1 to V4. QTC prolongation of 513. Review of EKG on 12 July 2019 showed Q waves only in V1 to V4. QTc was 473. Received Lasix 40 mg IV at emergency department. At home patient is on Lasix 80 mg p.o. twice daily. Lasix 80 mg IV twice daily ordered. Continue home potassium supplementation. Monitor electrolytes and renal function Metoprolol continued. Of note patient is not on ALEJANDRA inhibitor or ALEJANDRA blockers. Patient with a history of CKD stage IV.. Trend blood pressure Titrate diurectics and heart failure/blood pressure medications with blood pressure. Kerlix roll and alejandra wrap to bilateral lower extremities Fluid restriction of 1500 mls daily 2 g cardiac diet Received morphine at the emergency department for leg pain. Continue home gabapentin. Elevated troponin Trend Continue home aspirin and Plavix QTC prolongation Avoid QTC prolongation drugs. CKD Stage IV Stable Sublingual hematoma of second toe of left foot. Dry dressing. Patient to follow-up with podiatry upon discharge. Diabetes mellitus Patient with hyperglycemia. Continue home basal and prandial insulin. Accu- Chek QA CHS with correction scale insulin. DVT prophylaxis Subcutaneous Lovenox Inpatient E&M: 59734 Init Hosp L3
--- NOTE | 2019-09-28 06:30 | NURSING ---
2L NC APPLIED D/T RECURRENT DECREASE IN SPO2.
--- NOTE | 2019-09-28 07:33 | NURSING ---
per Pt, pt wants son updated on POC. per pt. Son with then update pt's and daughter as needed.
[2019-09-28] MEDS: Aspirin 81 MG TAB.CHEW PO (08:50)
[2019-09-28] MEDS: Furosemide 100 MG/10 ML Vial 80 MG IV ×2 (08:51→17:04)
[2019-09-28] MEDS: Gabapentin 100 MG Capsule PO ×2 (08:51→22:22)
[2019-09-28] MEDS: amLODIPine 5 MG Tablet PO (08:52)
[2019-09-28] MEDS: Metoprolol(XL)Succ 25 MG Tablet PO (08:52)
[2019-09-28] MEDS: Omega-3 Acid Ethyl Esters 1 GM Capsule 2 GM PO (08:52)
[2019-09-28] MEDS: Enoxaparin 40 MG/0.4 ML Syringe SC (08:52)
[2019-09-28] MEDS: Clopidogrel Bisulfate 75 MG Tablet PO (08:52)
[2019-09-28] MEDS: Triamcinolone 0.5% Cream 1 APPLIC TOPICAL (08:53)
[2019-09-28] MEDS: Sertraline 50 MG Tablet PO (08:53)
[2019-09-28] MEDS: Insulin Lispro 100 UNIT/ML INSULN.PEN SC ×4 (08:59→22:22)
[2019-09-28 09:11] LABS: Bedside Glucose 189 mg/dL (70-110)
[2019-09-28] MEDS: Acetaminophen 325 MG Tablet 650 MG PO (10:51)
--- NOTE | 2019-09-28 11:31 | RAD_ITS ---
STUDY: X-RAY - LEFT FOOT CLINICAL: Female, 63 years old. Swelling third toe TECHNIQUE: 3 view(s) of the foot. COMPARISON: 12/20/2017. FINDINGS: No definite focal destructive process of the bones. However, this does not exclude the possibility of osteomyelitis. Stable appearance of mid metatarsal amputation of the fifth digit. Marked diffuse soft tissue swelling throughout the foot and ankle. No definite soft tissue gas. RAD/Foot min 3 Views IMPRESSION: No definite focal destructive process of any of the bones. Stable postsurgical changes. Severe diffuse soft tissue swelling. Electronically Signed: Angus Donahue MD at 14:17 EDT , Service support ,
[2019-09-28 11:46] LABS: Bedside Glucose 260 mg/dL (70-110)
[2019-09-28] MEDS: oxyCODONE 5 MG Tablet PO ×2 (12:19→18:45)
--- NOTE | 2019-09-28 12:49 | PCM.PN.HOSP ---
Subjective: Patient seen and examined. She was admitted with a complaint of shortness of breath, swelling of her lower extremities as well as orthopnea and PND. BNP was elevated at over 4000. She has been managed for acute on chronic heart failure with reduced ejection fraction. Patient seen this morning. She still complained of feeling weak and short of breath. She denied any chest pain, nausea vomiting or palpitations. Review of systems otherwise negative. She does complain of scant bleeding from her left third toe. She denied hitting her foot against anything and had no pain. However she says she had decreased pain sensation on account of neuropathy from diabetes and was very worried about her toe because of the ray amputation she had had on the left fifth toe 2 years ago. Vitals/I&O's: Vital Signs Temp Pulse Resp BP Pulse Ox 98.4 F 93 20 H 120/66 99 09/28/19 08:45 09/28/19 08:52 09/28/19 08:45 09/28/19 08:45 09/28/19 08:45 Oxygen Flow Rate (L/min) 2 Oxygen Delivery Method Nasal Cannula Weight: 182 lb 15.739 oz Body Mass Index (BMI) 36.9 Intake and Output for Last 24 Hours 09/26/19 09/27/19 09/28/19 23:59 23:59 23:59 Intake Total 400 / 400 Balance 400 / 400 General: Alert, Oriented x3, Cooperative, No apparent distress HEENT: Atraumatic, PERRLA, EOMI, Normocephalic Oral: Moist Mucosa Neck: Supple, No JVD, Negative Carotid Bruits Lungs: - - mildly decreased breath sounds bibasally, no wheezes or crackles. on 2L of oxygen. Cardiovascular: Regular rate, Regular Rhythm, Normal S1, Normal S2, No murmurs Abdomen: Bowel Sounds Present, Soft, Non Tender, Non-Distended, No Hepato-splenomegaly Extremities: No clubbing, No cyanosis, Edema - 2+ bipedal pitting edema Skin: No rashes, No breakdown, - - third left toe mildly swollen, nontender, dried blood underneath toenail; toenail appears to be broken. Musculoskeletal: No Tenderness to Palpation of Joints or Extremities Lymphatic: No Cervical, Supraclavicular, or Inguinal Adenopathy Neurological: Cranial nerves II-XII grossly intact, Neuro grossly intact, Motor Exam 5/5 strength throughout Psych/Mental Status: Normal Affect, Appropriate, Alert and oriented to time, place, person, mood and affect Laboratory Results 09/28/19 04:54: WBC 7.8, RBC 3.60 L, Hgb 9.8 L, Hct 32.1 L, MCV 89.2, MCH 27.2, MCHC 30.5 L, RDW Std Deviation 53.0 H, RDW Coeff of Jade 16.1 H, Plt Count 298, MPV 9.6, Immature Gran % (Auto) 0.400, Neut % (Auto) 73.3 H, Lymph % (Auto) 15.3 L, [place] % (Auto) 9.4, Eos % (Auto) 1.2, Baso % (Auto) 0.4, Absolute Neuts (auto) 5.7, Absolute Lymphs (auto) 1.19, Nucleated RBC % 0 09/28/19 04:54: Sodium 138, Potassium 3.9, Chloride 107, Carbon Dioxide 22.0, Anion Gap 9, BUN 42 H, Creatinine 2.24 H, Estim Creat Clear Calc 34.42, Est GFR (MDRD) Af Amer 28 L, Est GFR (MDRD) Non-Af 23 L, BUN/Creatinine Ratio 18.8, Glucose 222 H, Calcium 8.5, Troponin I 0.424 H 09/28/19 04:54: B-Natriuretic Peptide 4782.2 H 09/28/19 08:40: Troponin I 0.430 H 09/28/19 08:49: POC Glucose 189 H 09/28/19 11:11: Troponin I 0.432 H 09/28/19 11:31: POC Glucose 260 H Diagnostic Data Chest X-Ray 09/28/19 04:45 IMPRESSION: There is NO acute cardiopulmonary abnormality. Electronically Signed: Sam Cruz MD at 5:09 EDT , Service support , Current Medications Acetaminophen (Tylenol) 650 mg PO Q6H PRN PRN PRN Reason: Pain Score 1-10/Temp > 100.7 F Last Admin: 09/28/19 10:51 Dose: 650 mg Documented by: Albuterol/Ipratropium (Duoneb) 3 ml INHALATION Q6H.RT [facility] Amlodipine Besylate (Norvasc) 5 mg PO DAILY [facility] Last Admin: 09/28/19 08:52 Dose: 5 mg Documented by: Aspirin (Aspirin, Baby) 81 mg PO DAILY@0800 [facility] Last Admin: 09/28/19 08:50 Dose: 81 mg Documented by: Atorvastatin Calcium (Lipitor) 40 mg PO QHS [facility] Buspirone HCl (Buspar) 20 mg PO TID [facility] Clopidogrel Bisulfate (Plavix) 75 mg PO DAILY [facility] Last Admin: 09/28/19 08:52 Dose: 75 mg Documented by: Dextrose (D50w Syringe) 0 gm IV X1 PRN; Protocol PRN Reason: Hypoglycemia Enoxaparin Sodium (Lovenox) 40 mg SC DAILY [facility] Last Admin: 09/28/19 08:52 Dose: 40 mg Documented by: Ergocalciferol (Vitamin D) 50,000 unit PO [facility] Furosemide (Lasix) 80 mg IV BID@1000,1800 [facility] Last Admin: 09/28/19 08:51 Dose: 80 mg Documented by: Gabapentin (Neurontin) 100 mg PO TIDCM [facility] Last Admin: 09/28/19 11:29 Dose: Not Given Documented by: Glucagon () 1 mg IM .X1 PRN PRN Reason: Hypoglycemia Sodium Chloride () 250 mls @ 15 mls/hr IV .[id number] PRN PRN Reason: Saline Flush Sodium Chloride () 250 mls @ 15 mls/hr IV .[id number] PRN PRN Reason: Additional IVPB Infusion Insulin Glargine (Lantus (Bkc)) 20 units SC QHS [facility] Insulin Human Lispro (Humalog Kwikpen (Bkc)) 0 unit SC ACHS [facility]; Protocol Last Admin: 09/28/19 11:32 Dose: 3 units Documented by: Insulin Human Lispro (Humalog Kwikpen (Bkc)) 3 unit SC TIDCM [facility]; Protocol Last Admin: 09/28/19 11:32 Dose: 4 units Documented by: Loratadine (Claritin) 10 mg PO DAILY PRN PRN Reason: ALLERGIES Metoprolol Succinate (Toprol Xl (Beta Kristy)) 25 mg PO DAILY [facility] Last Admin: 09/28/19 08:52 Dose: 25 mg Documented by: [id number] Ethyl Esters (Lovaza) 2 gm PO DAILY [facility] Last Admin: 09/28/19 08:52 Dose: 2 gm Documented by: Oxycodone HCl (Oxyir) 5 mg PO Q6H PRN PRN PRN Reason: Pain Score 6-10/10 Last Admin: 09/28/19 12:19 Dose: 5 mg Documented by: Potassium Chloride (K-Dur) 20 meq PO BID [facility] Last Admin: 09/28/19 08:51 Dose: 20 meq Documented by: Sertraline HCl (Zoloft) 50 mg PO DAILY [facility] Last Admin: 09/28/19 08:53 Dose: 50 mg Documented by: Sodium Chloride () 10 - 40 ml IV UD PRN PRN Reason: SALINE FLUSH Triamcinolone Acetonide (Triamcinolone Acetonide) 1 applic TOPICAL DAILY [facility] Last Admin: 09/28/19 08:53 Dose: 1 applicatio Documented by: STROKE Vital Signs/Narrative: Vital Signs Pulse 09/28/19 08:52 93 Medical Necessity - Tobacco Use Smoking Status: Former smoker Assessment/Plan All Active Problems (Last Reviewed 09/28/19 @ 07:[address] Kerwin Brizuela MD) CHF exacerbation (Acute) History of coronary artery stent placement (Resolved 05/18/18) Acute on chronic combined systolic (congestive) and diastolic (congestive) heart failure (Acute) Acute exacerbation of CHF (congestive heart failure) (Resolved) COPD exacerbation (Resolved) Chronic ulcer of buttock (Resolved) Flash pulmonary edema (Resolved) 1. Acute on chronic heart failure Currently on IV Lasix 80 twice daily. BNP was 4782 and chest x-ray showed cardiomegaly but no acute cardiopulmonary process. 2D echo done in June 2019 showed EF of 45% with stage I diastolic dysfunction and left atrium moderately enlarged with severe eccentric mitral valve insufficiency moderate tricuspid valve insufficiency. RVSP was 55 mmHg. EKG showed no acute ST changes. monitor intake and output. fluid restriction to 1500cc daily on metoprolol. Not on ALEJANDRA-I o/a of CKD 2. Elevated troponin Initial troponin was 0.424 but has only trended up minimally to 0.43 and 0.432. This is likely due to troponin leak from fluid overload. On aspirin and Plavix. 3. CKD stage III: Creatinine is 2.24. Baseline is around 2. Will monitor. 4. Swelling and hematoma of left foot Patient has slight swelling of left second toe. Has no pain but also has neuropathy due to diabetes and so may not be able to feel pain. Will consult podiatry as patient is very worried about it because she previously had her left fifth toe amputated. 5. Type 2 diabetes mellitus. On Lantus 20 units nightly. Insulin sliding scale. Accu-Cheks AC at bedtime. 6. CAD: On aspirin and Plavix as well as metoprolol. DVT prophylaxis: Lovenox renally dosed. Inpatient E&M: [id number] [facility] Hosp L3
[2019-09-28] MEDS: Ipratropium/Albuterol Sulfate 3 ML AMPUL.NEB INHALATION (13:20)
--- NOTE | 2019-09-28 13:50 | CASEMGMT ---
SAM GUTHRIE Readmission Note Last Admission: 09.18-09.20.20 Diagnosis: CHF DC Disposition: Home Current Admission: CHF exacerbation No changes in previous assessment per pt. She states she went to PCP office day prior to admission. [place] worse and came to ER. DC plan is for her to return home on dc. Pt had [facility] on dc, Resume order for HHC placed and Green sheet on chart. PT/OT evaluations ordered, will review and assess for dc needs.
[2019-09-28] MEDS: busPIRone 5 MG Tablet 20 MG PO ×2 (13:59→22:21)
[2019-09-28] MEDS: 0.9% Saline Lock 10 ML Syringe IV ×2 (17:05→19:33)
[2019-09-28 17:10] LABS: Bedside Glucose 127 mg/dL (70-110)
--- NOTE | 2019-09-28 18:47 | EKG12_ITS ---
Test Reason : CP Blood Pressure : / mmHG Vent. Rate : 089 BPM Atrial Rate : 089 BPM P-R Int : 150 ms QRS Dur : 088 ms QT Int : 396 ms P-R-T Axes : 063 -41 144 degrees QTc Int : 481 ms Normal sinus rhythm Left axis deviation Septal infarct , age undetermined Inferior infarct , age undetermined ST & T wave abnormality, consider lateral ischemia Abnormal ECG When compared with ECG of 28-SEP-2019 04:24, MANUAL COMPARISON REQUIRED, DATA IS UNCONFIRMED Confirmed by GENA GARCIA, JAMIE ([id number]), food expeditor RAYMUNDO PATEL ([id number]) on 10/01/2019 11:39:49 AM Referred By: MARILEE Confirmed By:JAMIE AVERY MD
[2019-09-28] MEDS: proCHLORPERazine 10 MG/2 ML Vial 5 MG IV (19:29)
[2019-09-28] MEDS: Calcium Carbonate 500 MG Tablet 1000 MG PO (19:29)
--- NOTE | 2019-09-28 19:56 | PCM.CONS.GEN ---
Reason for Consult Date of Consultation: 09/28/19 Reason for Consultation: bleeding beneath left 2nd toenail History of Present Illness: The patient is a 63 year old F who is well known to me with pmh significant for diabetes and pad. she underwent left 5th partial ray amputation approximately 2 years ago with compromised healing. She eventually healed and I have not seen patient since likely due to poor compliance. She is currently hospitalized with chf exacerbation. Apparently some time yesterday, patient noticed bleeding beneath her left 2nd toenail. She does not recall any injury. she denies any pain second to neuropathy. she denies any redness or drainage. she denies n/v/f/c. she has no other pedal complaints at this time. Past Medical History Past Medical History (Chronic Problems): Chronic Problems (Last Reviewed 09/28/19 @ 07:[address] Kerwin Brizuela MD) Chronic combined systolic and diastolic CHF (congestive heart failure) (Chronic) Former tobacco use (Chronic) Bilateral carotid artery stenosis (Chronic) RCEA and L carotid 70-80% stenosis Atherosclerosis of coronary artery of [place] heart without angina pectoris (Chronic) PCI-JAZIEL-LAD w/ 2.0 x 30 mm and 2.5 x 34 mm Resolute [place] and PCI-JAZIEL-Mid LCx w/ Resolute [place] 2.0 x 30 mm and 2.0 x 22 mm Stent 05/18/2018 Non-rheumatic tricuspid valve insufficiency (Chronic) Secondary pulmonary arterial hypertension (Chronic) Nonrheumatic mitral (valve) insufficiency (Chronic) CVA (cerebral vascular accident) (Chronic) Essential (primary) hypertension (Chronic) Hyperlipidemia (Chronic) Medical History: Medical History (Last Reviewed 09/28/19 @ 07:[address] Kerwin Brizuela MD) Bilateral carotid artery stenosis (Chronic) I65.23 RCEA and L carotid 70-80% stenosis Atherosclerosis of coronary artery of [place] heart without angina pectoris (Chronic) I25.10 PCI-JAZIEL-LAD w/ 2.0 x 30 mm and 2.5 x 34 mm Resolute [place] and PCI-JAZIEL-Mid LCx w/ Resolute [place] 2.0 x 30 mm and 2.0 x 22 mm Stent 05/18/2018 Acute on chronic combined systolic (congestive) and diastolic (congestive) heart failure (Acute) I50.43 Non-rheumatic tricuspid valve insufficiency (Chronic) I36.1 Secondary pulmonary arterial hypertension (Chronic) I27.21 Nonrheumatic mitral (valve) insufficiency (Chronic) I34.0 CVA (cerebral vascular accident) (Chronic) I63.9 Essential (primary) hypertension (Chronic) I10 Hyperlipidemia (Chronic) E78.5 Nicotine dependence (Inactive) F17.200 Asthma J45.909 COPD (chronic obstructive pulmonary disease) J44.9 Chronic back pain M54.9, G89.29 Depression F32.9 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 Type 2 diabetes mellitus E11.9 Allergies Penicillins Allergy (Severe, Verified 09/19/19 14:40) Swelling tolerated keflex in past with no issue fluoxetine [From Prozac] Adverse Reaction (Verified 09/28/19 04:39) NEEDS FOLLOW-UP pravastatin [From Pravachol] Adverse Reaction (Verified 09/28/19 04:39) NEEDS FOLLOW-UP Home Medications: Ambulatory Orders Medication Instructions Recorded Insulin Lispro [Humalog KwikPen] 3 unit SQ TIDCM 12/20/17 Clopidogrel Bisulfate [Clopidogrel] 75 mg PO DAILY 05/24/18 Richards-3 Fatty Acids [Richards-3] 2,000 mg PO DAILY 05/24/18 Ergocalciferol (Vitamin D2) 50,000 unit PO WE 06/11/18 [Vitamin D2] sertraline 50 mg tablet 50 mg PO DAILY 08/17/18 Aspirin [Aspirin, Baby] 81 mg PO DAILY@0800 07/12/19 Atorvastatin Calcium [Lipitor] 40 mg PO QHS 09/19/19 Buspirone HCl 20 mg PO TID 09/19/19 Ipratropium/Albuterol Sulfate 3 ml INHALATION Q6H.RT 09/19/19 [Duoneb] Potassium Chloride [K-Dur] 20 meq PO BID 09/19/19 Albuterol Sulfate [Albuterol 2 puff IH Q6H PRN 09/28/19 Sulfate HFA] Amlodipine [Norvasc] 5 mg PO DAILY 09/28/19 Furosemide [Lasix] 80 mg PO BID 09/28/19 Gabapentin [Neurontin] 100 mg PO QHS 09/28/19 Insulin Glargine,Hum.rec.anlog 20 unit SQ QHS 09/28/19 [Basaglar Kwikpen U-100] Loratadine 10 mg PO DAILY PRN 09/28/19 Metoprolol Succinate [Toprol Xl] 25 mg PO DAILY 09/28/19 Mometasone Furoate [Elocon] 1 applicatio TP DAILY 09/28/19 Surgical History: Surgical History (Last Reviewed 09/28/19 @ 07:[address] 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 Psychiatric History: Anxiety, Depression CLIENT SUPPORT REPRESENTATIVE History: No pertinent CLIENT SUPPORT REPRESENTATIVE history Smoking Status: Former smoker - *Family History Maternal Family History: Family History (Last Reviewed 03/19/19 @ 12:44 by Karin Clayton) Mother No problems noted. History Items: High Cholesterol, Heart Disease, Hypertension, Stroke, - - Patient's mother in her 40s from a cerebrovascular accident. Paternal Family History: Family History (Last Reviewed 03/19/19 @ 12:44 by Karin Clayton) Mother No problems noted. History Items: High Cholesterol, Heart Disease, Hypertension, - - Patient's father in his 40s from myocardial infarction. Review of Systems Cardiovascular: Reports: Edema Respiratory: Reports: Shortness of Breath Skin: Reports: Lesions - bleeding beneath left 2nd toenail Objective: patient is alert and orientated x 3. she does not appear to be in any distress vascular: DP and PT pulses nonpalpable. CFT is delayed. skin temperature is warm to warm. there is swelling in b/l lower extremity. no calf pain present. there is no redness of b/l lower extremity. hair growth is absent to b/l feet. Derm: there are no ulcerations of b/l feet. there is significant thickening of left 2nd toenail with evidence of dry blood beneath nail plate. the distal nail plate is lifting. there is no nail bed laceration but there is bleeding beneath nail plate. there is no drainage or local signs of infection. there are no callus to b/l feet. there is healed incision of left 5th partial ray amputation. m/s: no calf pain is noted to b/l feet. there is partial 5th ray amputation of left foot. - Physical Exam Vitals/I&O's: Vital Signs Temp Pulse Resp BP Pulse Ox 98.0 F 91 18 121/78 H 99 09/28/19 15:05 09/28/19 15:05 09/28/19 15:05 09/28/19 15:05 09/28/19 15:05 Oxygen Flow Rate (L/min) 2 Oxygen Delivery Method Nasal Cannula Weight: 83 kg Body Mass Index (BMI) 36.9 Intake and Output for Last 24 Hours 09/26/19 09/27/19 09/28/19 23:59 23:59 23:59 Intake Total 1180 / 1180 Output Total 400 / 400 Balance 780 / 780 General: Alert, Oriented x3 Laboratory Results 09/28/19 04:54: WBC 7.8, RBC 3.60 L, Hgb 9.8 L, Hct 32.1 L, MCV 89.2, MCH 27.2, MCHC 30.5 L, RDW Std Deviation 53.0 H, RDW Coeff of Jade 16.1 H, Plt Count 298, MPV 9.6, Immature Gran % (Auto) 0.400, Neut % (Auto) 73.3 H, Lymph % (Auto) 15.3 L, [place] % (Auto) 9.4, Eos % (Auto) 1.2, Baso % (Auto) 0.4, Absolute Neuts (auto) 5.7, Absolute Lymphs (auto) 1.19, Nucleated RBC % 0 09/28/19 04:54: Sodium 138, Potassium 3.9, Chloride 107, Carbon Dioxide 22.0, Anion Gap 9, BUN 42 H, Creatinine 2.24 H, Estim Creat Clear Calc 34.42, Est GFR (MDRD) Af Amer 28 L, Est GFR (MDRD) Non-Af 23 L, BUN/Creatinine Ratio 18.8, Glucose 222 H, Calcium 8.5, Troponin I 0.424 H 09/28/19 04:54: B-Natriuretic Peptide 4782.2 H 09/28/19 08:40: Troponin I 0.430 H 09/28/19 08:49: POC Glucose 189 H 09/28/19 11:11: Troponin I 0.432 H 09/28/19 11:31: POC Glucose 260 H 09/28/19 17:02: POC Glucose 127 H Current Medications Acetaminophen (Tylenol) 650 mg PO Q6H PRN PRN PRN Reason: Pain Score 1-10/Temp > 100.7 F Last Admin: 09/28/19 10:51 Dose: 650 mg Documented by: Albuterol/Ipratropium (Duoneb) 3 ml INHALATION Q6H.RT [facility] Last Admin: 09/28/19 19:19 Dose: Not Given Documented by: Amlodipine Besylate (Norvasc) 5 mg PO DAILY [facility] Last Admin: 09/28/19 08:52 Dose: 5 mg Documented by: Aspirin (Aspirin, Baby) 81 mg PO DAILY@0800 [facility] Last Admin: 09/28/19 08:50 Dose: 81 mg Documented by: Atorvastatin Calcium (Lipitor) 40 mg PO QHS [facility] Buspirone HCl (Buspar) 20 mg PO TID [facility] Last Admin: 09/28/19 13:59 Dose: 20 mg Documented by: Calcium Carbonate (Tums) 1,000 mg PO BID PRN PRN Reason: INDIGESTION Last Admin: 09/28/19 19:29 Dose: 1,000 mg Documented by: Clopidogrel Bisulfate (Plavix) 75 mg PO DAILY [facility] Last Admin: 09/28/19 08:52 Dose: 75 mg Documented by: Dextrose (D50w Syringe) 0 gm IV X1 PRN; Protocol PRN Reason: Hypoglycemia Enoxaparin Sodium (Lovenox) 30 mg SC DAILY [facility] Ergocalciferol (Vitamin D) 50,000 unit PO WE [facility] Furosemide (Lasix) 80 mg IV BID@1000,1800 [facility] Last Admin: 09/28/19 17:04 Dose: 80 mg Documented by: Gabapentin (Neurontin) 100 mg PO QHS [facility] Glucagon () 1 mg IM .X1 PRN PRN Reason: Hypoglycemia Sodium Chloride () 250 mls @ 15 mls/hr IV .[id number] PRN PRN Reason: Saline Flush Sodium Chloride () 250 mls @ 15 mls/hr IV .[id number] PRN PRN Reason: Additional IVPB Infusion Insulin Glargine (Lantus (Bkc)) 20 units SC QHS [facility] Insulin Human Lispro (Humalog Kwikpen (Bkc)) 0 unit SC ACHS [facility]; Protocol Last Admin: 09/28/19 17:05 Dose: Not Given Documented by: Insulin Human Lispro (Humalog Kwikpen (Bkc)) 3 unit SC TIDCM [facility]; Protocol Last Admin: 09/28/19 17:05 Dose: Not Given Documented by: Loratadine (Claritin) 10 mg PO DAILY PRN PRN Reason: ALLERGIES Metoprolol Succinate (Toprol Xl (Beta Kristy)) 25 mg PO DAILY [facility] Last Admin: 09/28/19 08:52 Dose: 25 mg Documented by: [id number] Ethyl Esters (Lovaza) 2 gm PO DAILY [facility] Last Admin: 09/28/19 08:52 Dose: 2 gm Documented by: Oxycodone HCl (Oxyir) 5 mg PO Q6H PRN PRN PRN Reason: Pain Score 6-10/10 Last Admin: 09/28/19 18:45 Dose: 5 mg Documented by: Potassium Chloride (K-Dur) 20 meq PO BID [facility] Last Admin: 09/28/19 08:51 Dose: 20 meq Documented by: Prochlorperazine Edisylate (Compazine Iv) 5 mg IV Q4H PRN PRN PRN Reason: NAUSEA/VOMITING Last Admin: 09/28/19 19:29 Dose: 5 mg Documented by: Sertraline HCl (Zoloft) 50 mg PO DAILY [facility] Last Admin: 09/28/19 08:53 Dose: 50 mg Documented by: Sodium Chloride () 10 - 40 ml IV UD PRN PRN Reason: SALINE FLUSH Last Admin: 09/28/19 19:33 Dose: 10 ml Documented by: Triamcinolone Acetonide (Triamcinolone Acetonide) 1 applic TOPICAL DAILY [facility] Last Admin: 09/28/19 08:53 Dose: 1 applicatio Documented by: Assessment/Plan All Active Problems (Last Reviewed 09/28/19 @ 07:[address] Kerwin Brizuela MD) CHF exacerbation (Acute) History of coronary artery stent placement (Resolved 05/18/18) Acute on chronic combined systolic (congestive) and diastolic (congestive) heart failure (Acute) Acute exacerbation of CHF (congestive heart failure) (Resolved) COPD exacerbation (Resolved) Chronic ulcer of buttock (Resolved) Flash pulmonary edema (Resolved) patient was examined and we had long discussion regarding her left 2nd toenail. on exam, she has long thick 2nd toenail with lifting of the distal nail plate. there is visible blood beneath the nail plate I suspect this patient injured her left toenail by way of some blunt force. she likely does not recall any such injury due to neuropathy. Combine this with the thickening of toenail, she likely sustained partial avulsion of left 2nd toenail resulting in bleeding. Today, I applied alcohol to her left 2nd toe and I carefully debrided the left 2nd toenail without any injury. I debrided the left 2nd toe so that I can further inspect the nail bed. there is no nail bed injury. I debrided all remaining toenails. This patient has pad. She has pvr taken in 2019 with dorsalis pedis and posterior tibial pulses to left foot monophasic with tbi as 0.37. Now with a recent nail injury, this patient does have possible risk of nonhealing which could result in partial toe amputation. I am going to monitor this toe closely and I will continue with neosporin. I do feel prophylactic antibiotic as precaution is denis in this patient. I will discuss with hospitalist regarding plan for antibiotic prior to ordering. this patient was informed that total nail avulsion may be required but given the absence of any clinical infection and past peace of 0.58 and tbi of 0.37, I am going to hold on toenail removal at this time. I am going to obtain repeat pvr with toe pressure and I will likely discuss those results with vascular before proceeding with removal if necessary. I will have nursing apply neosporin daily. PVR ordered xrays reviewed. no acute fracture. no destructive bone lesions.
--- NOTE | 2019-09-28 20:42 | ART_ITS ---
Reason For Study: Left 2nd toe traumatic nail avulsion Procedure A bilateral lower extremity continuous wave Doppler with analog waveform analysis and ankle brachial indexes. Left Segmental Pressures Left brachial= 121mmHg. Left posterior tibial artery = 74mmHg. Left dorsalis pedis artery = 82mmHg. Left digit = 50 mmHg. The left dorsalis pedis waveforms are monophasic. The left posterior tibial artery waveforms are monophasic. Right Segmental Pressures Right posterior tibial artery = 85mmHg. Right dorsalis pedis artery = 111mmHg. Right digit = 63 mmHg. The right dorsalis pedis waveforms are biphasic. The right posterior tibial artery waveforms are monophasic. Indices The right ankle brachial index by the dorsalis pedis is 0.92. The right ankle brachial index by the posterior tibial artery is 0.70. The right digital-brachial index is 0.52. The left ankle brachial index by the dorsalis pedis is 0.68. The left ankle brachial index by the posterior tibial artery is 0.61. The left digital-brachial index is 0.41. 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 Right dorsalis pedis Doppler waveform biphasic Abnormal bilateral digital brachial indices Ordering Physician: Michael Laird Referring Physician: SHEA Jimenez M.D. Performed By: Steph Flores RVT
[2019-09-28] MEDS: Atorvastatin Calcium 40 MG Tablet PO (22:22)
[2019-09-28] MEDS: Doxycycline 100 MG CAPSULE PO (22:22)
[2019-09-28 23:06] LABS: Bedside Glucose 255 mg/dL (70-110)
--- NOTE | 2019-09-28 23:14 | NURSING ---
Vital signs late due to RTT code on another patient
[2019-09-29] VITALS (15 sets, daily range): BP systolic 97–123; BP diastolic 67–79; PULSE 80–91; RESP 12–24; TEMP 36.4–36.8; O2SAT 93–100
[2019-09-29] MEDS: MELATONIN 10 MG TABLET PO ×2 (00:34→21:42)
[2019-09-29] MEDS: busPIRone 5 MG Tablet 20 MG PO ×3 (05:50→21:42)
[2019-09-29] MEDS: 0.9% Saline Lock 10 ML Syringe IV (05:53)
[2019-09-29] MEDS: Ipratropium/Albuterol Sulfate 3 ML AMPUL.NEB INHALATION ×3 (06:57→19:46)
[2019-09-29 07:20] LABS: Absolute Lymphocyte Count 1.53 X10^3/uL (0.83-4.51); Absolute Neutrophil Count 4.6 X10^3/uL (2.0-7.7); Basophil# 0.04 X10^3/uL; Basophil% 0.6 % (0-1); Eosinophil# 0.12 X10^3/uL; Eosinophils% 1.7 % (0-5); Hematocrit 31.5 % (37-47); Hemoglobin 9.6 g/dL (12.0-15.0); Lymphocyte # 1.53 X10^3/ul (4.0); Lymphocyte % 21.3 % (19-41); Mean Corp Hgb Conc 30.5 g/dL (32-36); Mean Corpuscular Hgb 26.8 pg (27.0-32.0); Mean Platelet Vol. 9.9 fl (6.2-12.0); Monocyte# 0.84 X10^3/uL; Monocyte% 11.7 % (0-10); NRBC Flagged by Analyzer 0 % (0-5); Neutrophil # 4.63 X10^3/uL (2.7-7.7); Neutrophil % 64.6 % (47-70); Platelet Count 264 K/mm3 (150-450); Red Blood Count 3.58 M/mm3 (4.2-5.4); White Blood Count 7.2 K/mm3 (4.4-11.0)
[2019-09-29 07:33] LABS: Anion Gap 8 (5-15); BUN 45 mg/dL (7-18); BUN/Creat Ratio 18.7 RATIO (10-20); Calcium,Total 8.3 mg/dL (8.5-10.1); Chloride 107 mmol/L (98-107); Creatinine, Serum 2.41 mg/dL (0.55-1.02); EST Glomerular Filtration Rate 22 mL/min (>60); Est Glom Filt Rate - Afr Amer 26 mL/min (>60); Estimated Creatinine Clearance 32.06 ml/min; Glucose 241 mg/dL (74-106); Potassium 4.2 mmol/L (3.5-5.1); Sodium Level 139 mmol/L (136-145)
[2019-09-29] MEDS: Aspirin 81 MG TAB.CHEW PO (09:03)
[2019-09-29] MEDS: oxyCODONE 5 MG Tablet PO ×3 (09:03→21:42)
[2019-09-29] MEDS: Furosemide 100 MG/10 ML Vial 80 MG IV ×2 (09:04→17:57)
[2019-09-29] MEDS: Omega-3 Acid Ethyl Esters 1 GM Capsule 2 GM PO (09:04)
[2019-09-29] MEDS: Doxycycline 100 MG CAPSULE PO ×2 (09:04→21:42)
[2019-09-29] MEDS: Neomycin/Bacitracin/Polymyxin Ointment 1 APPLIC TOPICAL (09:05)
[2019-09-29] MEDS: Enoxaparin 30 MG/0.3 ML Syringe SC (09:05)
[2019-09-29] MEDS: Triamcinolone 0.5% Cream 1 APPLIC TOPICAL (09:06)
[2019-09-29] MEDS: Metoprolol(XL)Succ 25 MG Tablet PO (09:06)
[2019-09-29] MEDS: amLODIPine 5 MG Tablet PO (09:06)
[2019-09-29] MEDS: Sertraline 50 MG Tablet PO (09:06)
[2019-09-29] MEDS: Clopidogrel Bisulfate 75 MG Tablet PO (09:06)
[2019-09-29] MEDS: Insulin Lispro 100 UNIT/ML INSULN.PEN SC ×6 (09:11→17:56)
[2019-09-29 09:26] LABS: Bedside Glucose 219 mg/dL (70-110)
--- NOTE | 2019-09-29 11:24 | PCM.PN.SRG ---
Subjective: patient seen at bedside with no complaints. no n/v/f/c. Objective: patient is alert and orientated x 3. does not appear in any distress derm: left 2nd toe s/p debridement of 2nd toenail. there is no erythema. dry blood present yesterday has improved. there is no drainage. no nail bed laceration. no signs of infection. - Physical Exam Vitals/I&O's: Vital Signs Temp Pulse Resp BP Pulse Ox 98.0 F 85 18 97/69 100 09/29/19 09:05 09/29/19 09:06 09/29/19 09:05 09/29/19 09:05 09/29/19 09:38 Oxygen Flow Rate (L/min) 2 Oxygen Delivery Method Room Air Weight: 85 kg Body Mass Index (BMI) 36.9 Intake and Output for Last 24 Hours 09/27/19 09/28/19 09/29/19 23:59 23:59 23:59 Intake Total 1300 / 1300 100 / 100 Output Total 400 / 400 300 / 300 Balance 900 / 900 -200 / -200 Laboratory Results 09/28/19 11:11: Troponin I 0.432 H 09/28/19 11:31: POC Glucose 260 H 09/28/19 17:02: POC Glucose 127 H 09/28/19 22:18: POC Glucose 255 H 09/29/19 06:45: WBC 7.2, RBC 3.58 L, Hgb 9.6 L, Hct 31.5 L, MCV 88.0, MCH 26.8 L, MCHC 30.5 L, RDW Std Deviation 52.0 H, RDW Coeff of Jade 16.0 H, Plt Count 264, MPV 9.9, Immature Gran % (Auto) 0.100, Neut % (Auto) 64.6, Lymph % (Auto) 21.3, [place] % (Auto) 11.7 H, Eos % (Auto) 1.7, Baso % (Auto) 0.6, Absolute Neuts (auto) 4.6, Absolute Lymphs (auto) 1.53, Nucleated RBC % 0 09/29/19 06:45: Sodium 139, Potassium 4.2, Chloride 107, Carbon Dioxide 24.0, Anion Gap 8, BUN 45 H, Creatinine 2.41 H, Estim Creat Clear Calc 32.06, Est GFR (MDRD) Af Amer 26 L, Est GFR (MDRD) Non-Af 22 L, BUN/Creatinine Ratio 18.7, Glucose 241 H, Calcium 8.3 L 09/29/19 09:11: POC Glucose 219 H Current Medications Acetaminophen (Tylenol) 650 mg PO Q6H PRN PRN PRN Reason: Pain Score 1-10/Temp > 100.7 F Last Admin: 09/28/19 10:51 Dose: 650 mg Documented by: Albuterol/Ipratropium (Duoneb) 3 ml INHALATION Q6H.RT [facility] Last Admin: 09/29/19 06:57 Dose: 3 ml Documented by: Amlodipine Besylate (Norvasc) 5 mg PO DAILY [facility] Last Admin: 09/29/19 09:06 Dose: 5 mg Documented by: Aspirin (Aspirin, Baby) 81 mg PO DAILY@0800 [facility] Last Admin: 09/29/19 09:03 Dose: 81 mg Documented by: Atorvastatin Calcium (Lipitor) 40 mg PO QHS [facility] Last Admin: 09/28/19 22:22 Dose: 40 mg Documented by: Buspirone HCl (Buspar) 20 mg PO TID [facility] Last Admin: 09/29/19 05:50 Dose: 20 mg Documented by: Calcium Carbonate (Tums) 1,000 mg PO BID PRN PRN PRN Reason: INDIGESTION Clopidogrel Bisulfate (Plavix) 75 mg PO DAILY [facility] Last Admin: 09/29/19 09:06 Dose: 75 mg Documented by: Dextrose (D50w Syringe) 0 gm IV X1 PRN; Protocol PRN Reason: Hypoglycemia Doxycycline Monohydrate (Doxycycline) 100 mg PO BID [facility] Stop: 10/05/19 22:00 Last Admin: 09/29/19 09:04 Dose: 100 mg Documented by: Enoxaparin Sodium (Lovenox) 30 mg SC DAILY [facility] Last Admin: 09/29/19 09:05 Dose: 30 mg Documented by: Ergocalciferol (Vitamin D) 50,000 unit PO [facility] Furosemide (Lasix) 80 mg IV BID@1000,1800 [facility] Last Admin: 09/29/19 09:04 Dose: 80 mg Documented by: Gabapentin (Neurontin) 100 mg PO QHS [facility] Last Admin: 09/28/19 22:22 Dose: 100 mg Documented by: Glucagon () 1 mg IM .X1 PRN PRN Reason: Hypoglycemia Sodium Chloride () 250 mls @ 15 mls/hr IV .[id number] PRN PRN Reason: Saline Flush Sodium Chloride () 250 mls @ 15 mls/hr IV .[id number] PRN PRN Reason: Additional IVPB Infusion Insulin Glargine (Lantus (Bkc)) 20 units SC QHS [facility] Last Admin: 09/28/19 22:23 Dose: 20 units Documented by: Insulin Human Lispro (Humalog Kwikpen (Bkc)) 0 unit SC ACHS [facility]; Protocol Last Admin: 09/29/19 09:11 Dose: 2 units Documented by: Insulin Human Lispro (Humalog Kwikpen (Bkc)) 3 unit SC TIDCM [facility]; Protocol Last Admin: 09/29/19 09:12 Dose: 3 units Documented by: Loratadine (Claritin) 10 mg PO DAILY PRN PRN Reason: ALLERGIES Melatonin (Melatonin) 10 mg PO QHS PRN PRN Reason: INSOMNIA Last Admin: 09/29/19 00:34 Dose: 10 mg Documented by: Metoprolol Succinate (Toprol Xl (Beta Kristy)) 25 mg PO DAILY [facility] Last Admin: 09/29/19 09:06 Dose: 25 mg Documented by: Neomycin/Polymyxin/Bacitracin (Neosporin) 1 applic TOPICAL DAILY [facility]; Protocol Last Admin: 09/29/19 09:05 Dose: 1 applicatio Documented by: [id number] Ethyl Esters (Lovaza) 2 gm PO DAILY [facility] Last Admin: 09/29/19 09:04 Dose: 2 gm Documented by: Oxycodone HCl (Oxyir) 5 mg PO Q6H PRN PRN PRN Reason: Pain Score 6-10/10 Last Admin: 09/29/19 09:03 Dose: 5 mg Documented by: Potassium Chloride (K-Dur) 20 meq PO BID [facility] Last Admin: 09/29/19 09:04 Dose: 20 meq Documented by: Prochlorperazine Edisylate (Compazine Iv) 5 mg IV Q4H PRN PRN PRN Reason: NAUSEA/VOMITING Last Admin: 09/28/19 19:29 Dose: 5 mg Documented by: Sertraline HCl (Zoloft) 50 mg PO DAILY [facility] Last Admin: 09/29/19 09:06 Dose: 50 mg Documented by: Sodium Chloride () 10 - 40 ml IV UD PRN PRN Reason: SALINE FLUSH Last Admin: 09/29/19 05:53 Dose: 10 ml Documented by: Triamcinolone Acetonide (Triamcinolone Acetonide) 1 applic TOPICAL DAILY [facility] Last Admin: 09/29/19 09:06 Dose: 1 applicatio Documented by: Medical Necessity - Tobacco Use Smoking Status: Former smoker Assessment/Plan All Active Problems (Last Reviewed 09/28/19 @ 07:[address] Kerwin Brizuela MD) CHF exacerbation (Acute) History of coronary artery stent placement (Resolved 05/18/18) Acute on chronic combined systolic (congestive) and diastolic (congestive) heart failure (Acute) Acute exacerbation of CHF (congestive heart failure) (Resolved) COPD exacerbation (Resolved) Chronic ulcer of buttock (Resolved) Flash pulmonary edema (Resolved) patient is s/p debridement of left 2nd toe. the toe appears stable without signs of infection. i would continue with neosporin and band aid. discussed total nail avulsion however her peace/tbi perfromed in 2019 shows peace of 0.58 and tbi of 0.37. I feel any removal of toenail could certainly risk nonhealing. I debrided the nail yesterday and the toe is now stable. I would continue with topical neosporin and oral antibiotic as precaution. recommend repeat vascular studies. in event the toe becomes infected, would then need to discuss removal of toenail but I would certainly have discussion with vascular surgery prior to any attempted removal. at present time, the toe appears stable. I would continue with local wound care, get updated pvr. she can certainly follow-up with me in my outpatient clinic for close follow-up.
[2019-09-29 12:01] LABS: Bedside Glucose 231 mg/dL (70-110)
--- NOTE | 2019-09-29 12:12 | PN_ITS ---
Subjective: Patient seen and examined. She has no complaints today. She says shortness of breath has improved. Review of systems otherwise negative. Labs and vitals reviewed. Vitals/I&O's: Vital Signs Temp Pulse Resp BP Pulse Ox 98.0 F 85 18 97/69 100 09/29/19 09:05 09/29/19 09:06 09/29/19 09:05 09/29/19 09:05 09/29/19 09:38 Oxygen Flow Rate (L/min) 2 Oxygen Delivery Method Room Air Weight: 187 lb 6.287 oz Body Mass Index (BMI) 36.9 Intake and Output for Last 24 Hours 09/27/19 09/28/19 09/29/19 23:59 23:59 23:59 Intake Total 1300 / 1300 600 / 600 Output Total 400 / 400 625 / 625 Balance 900 / 900 -25 / -25 General: Alert, Oriented x3, Cooperative, No apparent distress HEENT: Atraumatic, PERRLA, EOMI, Normocephalic Oral: Moist Mucosa Neck: Supple, No JVD, Negative Carotid Bruits Lungs: - - mildly decreased breath sounds bibasally, no wheezes or crackles. on 2L of oxygen. Cardiovascular: Regular rate, Regular Rhythm, Normal S1, Normal S2, No murmurs Abdomen: Bowel Sounds Present, Soft, Non Tender, Non-Distended, No Hepato- splenomegaly Extremities: No clubbing, No cyanosis, Edema - 1+ bipedal pitting edema Skin: No rashes, No breakdown, - -left foot bandaged. Musculoskeletal: No Tenderness to Palpation of Joints or Extremities Lymphatic: No Cervical, Supraclavicular, or Inguinal Adenopathy Neurological: Cranial nerves II-XII grossly intact, Neuro grossly intact, Motor Exam 5/5 strength throughout Psych/Mental Status: Normal Affect, Appropriate, Alert and oriented to time, place, person, mood and affect Laboratory Results 09/28/19 17:02: POC Glucose 127 H 09/28/19 22:18: POC Glucose 255 H 09/29/19 06:45: WBC 7.2, RBC 3.58 L, Hgb 9.6 L, Hct 31.5 L, MCV 88.0, MCH 26.8 L , MCHC 30.5 L, RDW Std Deviation 52.0 H, RDW Coeff of Jade 16.0 H, Plt Count 264, MPV 9.9, Immature Gran % (Auto) 0.100, Neut % (Auto) 64.6, Lymph % (Auto) 21.3, [place] % (Auto) 11.7 H, Eos % (Auto) 1.7, Baso % (Auto) 0.6, Absolute Neuts (auto) 4.6, Absolute Lymphs (auto) 1.53, Nucleated RBC % 0 09/29/19 06:45: Sodium 139, Potassium 4.2, Chloride 107, Carbon Dioxide 24.0, Anion Gap 8, BUN 45 H, Creatinine 2.41 H, Estim Creat Clear Calc 32.06, Est GFR (MDRD) Af Amer 26 L, Est GFR (MDRD) Non-Af 22 L, BUN/Creatinine Ratio 18.7, Glucose 241 H, Calcium 8.3 L 09/29/19 09:11: POC Glucose 219 H 09/29/19 11:31: POC Glucose 231 H Diagnostic Data Chest X-Ray 09/28/19 04:45 IMPRESSION: There is NO acute cardiopulmonary abnormality. Electronically Signed: Sam Cruz MD at 5:09 EDT , Service support , Foot X-Ray 09/28/19 11:31 IMPRESSION: No definite focal destructive process of any of the bones. Stable postsurgical changes. Severe diffuse soft tissue swelling. Electronically Signed: Angus Donahue MD at 14:17 EDT , Service support , Current Medications Acetaminophen (Tylenol) 650 mg PO Q6H PRN PRN PRN Reason: Pain Score 1-10/Temp > 100.7 F Last Admin: 09/28/19 10:51 Dose: 650 mg Documented by: Albuterol/Ipratropium (Duoneb) 3 ml INHALATION Q6H.RT [facility] Last Admin: 09/29/19 06:57 Dose: 3 ml Documented by: Amlodipine Besylate (Norvasc) 5 mg PO DAILY [facility] Last Admin: 09/29/19 09:06 Dose: 5 mg Documented by: Aspirin (Aspirin, Baby) 81 mg PO DAILY@0800 [facility] Last Admin: 09/29/19 09:03 Dose: 81 mg Documented by: Atorvastatin Calcium (Lipitor) 40 mg PO QHS [facility] Last Admin: 09/28/19 22:22 Dose: 40 mg Documented by: Buspirone HCl (Buspar) 20 mg PO TID [facility] Last Admin: 09/29/19 05:50 Dose: 20 mg Documented by: Calcium Carbonate (Tums) 1,000 mg PO BID PRN PRN PRN Reason: INDIGESTION Clopidogrel Bisulfate (Plavix) 75 mg PO DAILY [facility] Last Admin: 09/29/19 09:06 Dose: 75 mg Documented by: Dextrose (D50w Syringe) 0 gm IV X1 PRN; Protocol PRN Reason: Hypoglycemia Doxycycline Monohydrate (Doxycycline) 100 mg PO BID [facility] Stop: 10/05/19 22:00 Last Admin: 09/29/19 09:04 Dose: 100 mg Documented by: Enoxaparin Sodium (Lovenox) 30 mg SC DAILY [facility] Last Admin: 09/29/19 09:05 Dose: 30 mg Documented by: Ergocalciferol (Vitamin D) 50,000 unit PO [facility] Furosemide (Lasix) 80 mg IV BID@1000,1800 [facility] Last Admin: 09/29/19 09:04 Dose: 80 mg Documented by: Gabapentin (Neurontin) 100 mg PO QHS [facility] Last Admin: 09/28/19 22:22 Dose: 100 mg Documented by: Glucagon () 1 mg IM .X1 PRN PRN Reason: Hypoglycemia Sodium Chloride () 250 mls @ 15 mls/hr IV .[id number] PRN PRN Reason: Saline Flush Sodium Chloride () 250 mls @ 15 mls/hr IV .[id number] PRN PRN Reason: Additional IVPB Infusion Insulin Glargine (Lantus (Bkc)) 20 units SC QHS [facility] Last Admin: 09/28/19 22:23 Dose: 20 units Documented by: Insulin Human Lispro (Humalog Kwikpen (Bkc)) 0 unit SC ACHS [facility]; Protocol Last Admin: 09/29/19 09:11 Dose: 2 units Documented by: Insulin Human Lispro (Humalog Kwikpen (Bkc)) 3 unit SC TIDCM [facility]; Protocol Last Admin: 09/29/19 09:12 Dose: 3 units Documented by: Loratadine (Claritin) 10 mg PO DAILY PRN PRN Reason: ALLERGIES Melatonin (Melatonin) 10 mg PO QHS PRN PRN Reason: INSOMNIA Last Admin: 09/29/19 00:34 Dose: 10 mg Documented by: Metoprolol Succinate (Toprol Xl (Beta Kristy)) 25 mg PO DAILY [facility] Last Admin: 09/29/19 09:06 Dose: 25 mg Documented by: Neomycin/Polymyxin/Bacitracin (Neosporin) 1 applic TOPICAL DAILY [facility]; Protocol Last Admin: 09/29/19 09:05 Dose: 1 applicatio Documented by: Eavpv-0-Phys Ethyl Esters (Lovaza) 2 gm PO DAILY [facility] Last Admin: 09/29/19 09:04 Dose: 2 gm Documented by: Oxycodone HCl (Oxyir) 5 mg PO Q6H PRN PRN PRN Reason: Pain Score 6-10/10 Last Admin: 09/29/19 09:03 Dose: 5 mg Documented by: Potassium Chloride (K-Dur) 20 meq PO BID [facility] Last Admin: 09/29/19 09:04 Dose: 20 meq Documented by: Prochlorperazine Edisylate (Compazine Iv) 5 mg IV Q4H PRN PRN PRN Reason: NAUSEA/VOMITING Last Admin: 09/28/19 19:29 Dose: 5 mg Documented by: Sertraline HCl (Zoloft) 50 mg PO DAILY [facility] Last Admin: 09/29/19 09:06 Dose: 50 mg Documented by: Sodium Chloride () 10 - 40 ml IV UD PRN PRN Reason: SALINE FLUSH Last Admin: 09/29/19 05:53 Dose: 10 ml Documented by: Triamcinolone Acetonide (Triamcinolone Acetonide) 1 applic TOPICAL DAILY [facility] Last Admin: 09/29/19 09:06 Dose: 1 applicatio Documented by: STROKE Vital Signs/Narrative: Vital Signs Temp Pulse Resp BP Pulse Ox 09/29/19 09:38 100 09/29/19 09:06 85 09/29/19 09:05 98.0 F 87 18 97/69 100 Medical Necessity - Tobacco Use Smoking Status: Former smoker Assessment/Plan All Active Problems (Last Reviewed 09/28/19 @ 07:[address] Kerwin Brizuela MD) CHF exacerbation (Acute) History of coronary artery stent placement (Resolved 05/18/18) Acute on chronic combined systolic (congestive) and diastolic (congestive) heart failure (Acute) Acute exacerbation of CHF (congestive heart failure) (Resolved) COPD exacerbation (Resolved) Chronic ulcer of buttock (Resolved) Flash pulmonary edema (Resolved) 1. Acute on chronic heart failure * Currently on IV Lasix 80 twice daily. * 2D echo done in June 2019 showed EF of 45% with stage I diastolic dysfunction and left atrium moderately enlarged with severe eccentric mitral valve insufficiency moderate tricuspid valve insufficiency. RVSP was 55 mmHg. * EKG showed no acute ST changes. * In positive balance by 875 mils since admission with total urine output being 1 L so far. * monitor intake and output. * fluid restriction to 1500cc daily * on metoprolol. Not on ALEJANDRA-I o/a of CKD * 2. Elevated troponin * Initial troponin was 0.424 but has only trended up minimally to 0.43 and 0.432. This is likely due to troponin leak from fluid overload. * On aspirin and Plavix. * 3. CKD stage III: Creatinine is up to 2.41 today. Baseline is around 2. Will monitor. 4. Swelling and hematoma of left second toe * Had debridement of the left second toe by podiatry yesterday. Having Neosporin cream applied to toe. * Is on doxycycline per Podiatry * 5. Type 2 diabetes mellitus. * On Lantus 20 units nightly. Insulin sliding scale. Accu-Cheks AC at bedtime. * 6. CAD: On aspirin and Plavix as well as metoprolol. DVT prophylaxis: Lovenox renally dosed. Inpatient E&M: [id number] [facility] Hosp L2
[2019-09-29 18:11] LABS: Bedside Glucose 151 mg/dL (70-110)
[2019-09-29] MEDS: Atorvastatin Calcium 40 MG Tablet PO (21:42)
[2019-09-29] MEDS: Gabapentin 100 MG Capsule PO (21:42)
[2019-09-29 22:51] LABS: Bedside Glucose 131 mg/dL (70-110)
[2019-09-30] VITALS (14 sets, daily range): BP systolic 103–138; BP diastolic 61–82; PULSE 78–89; RESP 16–18; TEMP 36.4–36.8; O2SAT 97–99
[2019-09-30 05:15] LABS: Absolute Lymphocyte Count 1.73 X10^3/uL (0.83-4.51); Absolute Neutrophil Count 4.3 X10^3/uL (2.0-7.7); Basophil# 0.05 X10^3/uL; Basophil% 0.7 % (0-1); Eosinophil# 0.26 X10^3/uL; Eosinophils% 3.7 % (0-5); Hematocrit 32.5 % (37-47); Hemoglobin 9.6 g/dL (12.0-15.0); Lymphocyte # 1.73 X10^3/ul (4.0); Lymphocyte % 24.6 % (19-41); Mean Corp Hgb Conc 29.5 g/dL (32-36); Mean Corpuscular Hgb 26.7 pg (27.0-32.0); Mean Corpuscular Volume 90.3 fL (81-99); Mean Platelet Vol. 10.2 fl (6.2-12.0); Monocyte# 0.71 X10^3/uL; Monocyte% 10.1 % (0-10); NRBC Flagged by Analyzer 0 % (0-5); Neutrophil # 4.26 X10^3/uL (2.7-7.7); Neutrophil % 60.8 % (47-70); Platelet Count 272 K/mm3 (150-450); RBC Distribution Width CV 16.2 % (11.6-14.6); RBC Distribution Width SD 53.7 fl (35.1-43.9)
[2019-09-30 05:37] LABS: Anion Gap 9 (5-15); BUN 48 mg/dL (7-18); BUN/Creat Ratio 20.5 RATIO (10-20); Calcium,Total 8.2 mg/dL (8.5-10.1); Chloride 107 mmol/L (98-107); Creatinine, Serum 2.34 mg/dL (0.55-1.02); EST Glomerular Filtration Rate 22 mL/min (>60); Est Glom Filt Rate - Afr Amer 27 mL/min (>60); Estimated Creatinine Clearance 33.02 ml/min; Glucose 219 mg/dL (74-106); Potassium 4.1 mmol/L (3.5-5.1); Sodium Level 138 mmol/L (136-145)
[2019-09-30] MEDS: busPIRone 5 MG Tablet 20 MG PO ×3 (05:38→21:21)
[2019-09-30] MEDS: Ipratropium/Albuterol Sulfate 3 ML AMPUL.NEB INHALATION ×3 (06:35→19:58)
[2019-09-30] MEDS: oxyCODONE 5 MG Tablet PO ×2 (06:51→18:00)
[2019-09-30 07:51] LABS: Bedside Glucose 244 mg/dL (70-110)
[2019-09-30] MEDS: Insulin Lispro 100 UNIT/ML INSULN.PEN SC ×7 (08:16→21:19)
[2019-09-30] MEDS: Aspirin 81 MG TAB.CHEW PO (08:16)
[2019-09-30] MEDS: Furosemide 100 MG/10 ML Vial 80 MG IV (10:36)
[2019-09-30] MEDS: Doxycycline 100 MG CAPSULE PO ×2 (10:36→21:21)
[2019-09-30] MEDS: Omega-3 Acid Ethyl Esters 1 GM Capsule 2 GM PO (10:37)
[2019-09-30] MEDS: Enoxaparin 30 MG/0.3 ML Syringe SC (10:38)
[2019-09-30] MEDS: Neomycin/Bacitracin/Polymyxin Ointment 1 APPLIC TOPICAL (10:38)
[2019-09-30] MEDS: amLODIPine 5 MG Tablet PO (10:39)
[2019-09-30] MEDS: Clopidogrel Bisulfate 75 MG Tablet PO (10:39)
[2019-09-30] MEDS: Triamcinolone 0.5% Cream 1 APPLIC TOPICAL (10:40)
[2019-09-30] MEDS: Metoprolol(XL)Succ 25 MG Tablet PO (10:40)
[2019-09-30] MEDS: Sertraline 50 MG Tablet PO (10:41)
--- NOTE | 2019-09-30 10:41 | CASEMGMT ---
SW reviewed PT/OT and patient is requesting SNF placement. She has been to [facility] before. SW met with patient, introduced self and role at [facility]. She confirmed she would like to go to [facility] again. SW told her SW will work on this. SW faxed referral to [facility]. SW received a call from Beatriz at [facility] and they cannot accept patient. Something about patient's reimbursement rate from her insurance is for a semi-private room and they cannot do semi private rooms right now to do COVID-19. SW spoke with patient and let her know this information. SW also gave her a list of other local facilities that are in network. SW will check back with patient. Shanique CONNOR MSW
[2019-09-30 11:30] LABS: Bedside Glucose 180 mg/dL (70-110)
--- NOTE | 2019-09-30 11:40 | CASEMGMT ---
SW checked back with patient and she would like [facility]. SW called [facility] and Barb said they are not in network and they are full. SW spoke with patient letting her know. She will look for another facility. Shanique CONNOR BILL CUTTER
--- NOTE | 2019-09-30 11:46 | PN_ITS ---
<Binh Hong - Last Filed: 09/30/19 11:46> Reason for Visit: SOB Subjective: Pt still somewhat SOB, mildly improved from admission. Fluid balance does not show significant diuresis. No CP/pressure/tightness. Significant LE edema BL. Vitals/I&O's: Vital Signs Temp Pulse Resp BP Pulse Ox 98.0 F 87 16 138/76 H 97 09/30/19 07:52 09/30/19 10:40 09/30/19 07:52 09/30/19 07:52 09/30/19 07:52 Oxygen Flow Rate (L/min) 2 Oxygen Delivery Method Room Air Weight: 188 lb 0.869 oz Body Mass Index (BMI) 36.9 Intake and Output for Last 24 Hours 09/28/19 09/29/19 09/30/19 23:59 23:59 23:59 Intake Total 1300 / 1300 1079 / 1079 120 / 120 Output Total 400 / 400 925 / 925 400 / 400 Balance 900 / 900 154 / 154 -280 / -280 General: Alert, Oriented x3, Cooperative HEENT: Atraumatic, PERRLA, EOMI, Normocephalic Neck: Supple, No JVD, Negative Carotid Bruits Lungs: Clear to auscultation, Normal air movement, Diminished Cardiovascular: Regular rate, Murmur - 2+ systolic murmur best heard at 2nd ICS LSB Abdomen: Bowel Sounds Present, Soft, Non Tender Extremities: Capillary Refill Less than 3 Seconds, Edema - 2+ pitting edema BL LE Skin: No rashes, No breakdown Musculoskeletal: No Tenderness to Palpation of Joints or Extremities Neurological: Cranial nerves II-XII grossly intact Psych/Mental Status: Normal Affect, Appropriate, Alert and oriented to time, place, person, mood and affect Laboratory Results 09/29/19 11:31: POC Glucose 231 H 09/29/19 17:54: POC Glucose 151 H 09/29/19 21:29: POC Glucose 131 H 09/30/19 04:52: WBC 7.0, RBC 3.60 L, Hgb 9.6 L, Hct 32.5 L, MCV 90.3, MCH 26.7 L , MCHC 29.5 L, RDW Std Deviation 53.7 H, RDW Coeff of Jade 16.2 H, Plt Count 272, MPV 10.2, Immature Gran % (Auto) 0.100, Neut % (Auto) 60.8, Lymph % (Auto) 24.6, Swift % (Auto) 10.1 H, Eos % (Auto) 3.7, Baso % (Auto) 0.7, Absolute Neuts (auto) 4.3, Absolute Lymphs (auto) 1.73, Nucleated RBC % 0 09/30/19 04:52: Sodium 138, Potassium 4.1, Chloride 107, Carbon Dioxide 22.0, Anion Gap 9, BUN 48 H, Creatinine 2.34 H, Estim Creat Clear Calc 33.02, Est GFR (MDRD) Af Amer 27 L, Est GFR (MDRD) Non-Af 22 L, BUN/Creatinine Ratio 20.5 H, Glucose 219 H, Calcium 8.2 L 09/30/19 07:45: POC Glucose 244 H 09/30/19 11:19: POC Glucose 180 H Current Medications Acetaminophen (Tylenol) 650 mg PO Q6H PRN PRN PRN Reason: Pain Score 1-10/Temp > 100.7 F Last Admin: 09/28/19 10:51 Dose: 650 mg Documented by: Albuterol/Ipratropium (Duoneb) 3 ml INHALATION Q6H.RT [facility] Last Admin: 09/30/19 06:35 Dose: 3 ml Documented by: Amlodipine Besylate (Norvasc) 5 mg PO DAILY [facility] Last Admin: 09/30/19 10:39 Dose: 5 mg Documented by: Aspirin (Aspirin, Baby) 81 mg PO DAILY@0800 [facility] Last Admin: 09/30/19 08:16 Dose: 81 mg Documented by: Atorvastatin Calcium (Lipitor) 40 mg PO QHS [facility] Last Admin: 09/29/19 21:42 Dose: 40 mg Documented by: Buspirone HCl (Buspar) 20 mg PO TID [facility] Last Admin: 09/30/19 05:38 Dose: 20 mg Documented by: Calcium Carbonate (Tums) 1,000 mg PO BID PRN PRN PRN Reason: INDIGESTION Clopidogrel Bisulfate (Plavix) 75 mg PO DAILY [facility] Last Admin: 09/30/19 10:39 Dose: 75 mg Documented by: Dextrose (D50w Syringe) 0 gm IV X1 PRN; Protocol PRN Reason: Hypoglycemia Doxycycline Monohydrate (Doxycycline) 100 mg PO BID [facility] Stop: 10/05/19 22:00 Last Admin: 09/30/19 10:36 Dose: 100 mg Documented by: Enoxaparin Sodium (Lovenox) 30 mg SC DAILY [facility] Last Admin: 09/30/19 10:38 Dose: 30 mg Documented by: Ergocalciferol (Vitamin D) 50,000 unit PO WE [facility] Furosemide (Lasix) 80 mg IV BID@1000,1800 [facility] Last Admin: 09/30/19 10:36 Dose: 80 mg Documented by: Gabapentin (Neurontin) 100 mg PO QHS [facility] Last Admin: 09/29/19 21:42 Dose: 100 mg Documented by: Glucagon () 1 mg IM .X1 PRN PRN Reason: Hypoglycemia Sodium Chloride () 250 mls @ 15 mls/hr IV .[id number] PRN PRN Reason: Saline Flush Sodium Chloride () 250 mls @ 15 mls/hr IV .[id number] PRN PRN Reason: Additional IVPB Infusion Insulin Glargine (Lantus (Bkc)) 20 units SC QHS [facility] Last Admin: 09/29/19 21:43 Dose: 20 units Documented by: Insulin Human Lispro (Humalog Kwikpen (Bkc)) 0 unit SC ACHS [facility]; Protocol Last Admin: 09/30/19 08:16 Dose: 3 units Documented by: Insulin Human Lispro (Humalog Kwikpen (Bkc)) 3 unit SC TIDCM [facility]; Protocol Last Admin: 09/30/19 08:17 Dose: 3 units Documented by: Loratadine (Claritin) 10 mg PO DAILY PRN PRN Reason: ALLERGIES Melatonin (Melatonin) 10 mg PO QHS PRN PRN Reason: INSOMNIA Last Admin: 09/29/19 21:42 Dose: 10 mg Documented by: Metoprolol Succinate (Toprol Xl (Beta Kristy)) 25 mg PO DAILY [facility] Last Admin: 09/30/19 10:40 Dose: 25 mg Documented by: Neomycin/Polymyxin/Bacitracin (Neosporin) 1 applic TOPICAL DAILY [facility]; Protocol Last Admin: 09/30/19 10:38 Dose: 1 applicatio Documented by: [id number] Ethyl Esters (Lovaza) 2 gm PO DAILY [facility] Last Admin: 09/30/19 10:37 Dose: 2 gm Documented by: Oxycodone HCl (Oxyir) 5 mg PO Q6H PRN PRN PRN Reason: Pain Score 6-10/10 Last Admin: 09/30/19 06:51 Dose: 5 mg Documented by: Potassium Chloride (K-Dur) 20 meq PO BID [facility] Last Admin: 09/30/19 10:36 Dose: 20 meq Documented by: Prochlorperazine Edisylate (Compazine Iv) 5 mg IV Q4H PRN PRN PRN Reason: NAUSEA/VOMITING Last Admin: 09/28/19 19:29 Dose: 5 mg Documented by: Sertraline HCl (Zoloft) 50 mg PO DAILY [facility] Last Admin: 09/30/19 10:41 Dose: 50 mg Documented by: Sodium Chloride () 10 - 40 ml IV UD PRN PRN Reason: SALINE FLUSH Last Admin: 09/29/19 05:53 Dose: 10 ml Documented by: Triamcinolone Acetonide (Triamcinolone Acetonide) 1 applic TOPICAL DAILY [facility] Last Admin: 09/30/19 10:40 Dose: 1 applicatio Documented by: STROKE Vital Signs/Narrative: Vital Signs Temp Pulse Resp BP Pulse Ox 09/30/19 10:40 87 09/30/19 08:27 87 09/30/19 07:52 98.0 F 84 16 138/76 H 97 Medical Necessity - Tobacco Use Smoking Status: Former smoker Assessment/Plan All Active Problems (Last Reviewed 09/28/19 @ 07:[address] Kerwin Brizuela MD) CHF exacerbation (Acute) History of coronary artery stent placement (Resolved 05/18/18) Acute on chronic combined systolic (congestive) and diastolic (congestive) heart failure (Acute) Acute exacerbation of CHF (congestive heart failure) (Resolved) COPD exacerbation (Resolved) Chronic ulcer of buttock (Resolved) Flash pulmonary edema (Resolved) 1. Acute on chronic mixed CHF, complicated by pulmonary HTN, sever MVI 4+, 2+ TVI - minimal diuresis. Start lasix drip. Cardiology consult. Echo performed 06/2019 so defer repeat for now. Pt reports she is being consider for possible valvular surgery in the future. BUN/Cr/Co2 stable for now. Recheck in AM. Stop amlodipine with LE edema. Monitor pressures. 2. Elevated trop 2/2 above - no EKG changes, no CP. Suspect 2/2 Acute CHF and renal dz. Hx CAD. Continue aspirin, statin, plavix, metoprolol. 3. CKDIII - stable - trend 4. Hematoma left foot - podiatry consulted. continue doxy 5. T2DM - Lantus + SSI, titrate to response. 6. Anx/depresion - buspar, zoloft, DVT ppx: lovenox DC planning: monitor on lasix drip at least overnight This patient was seen by Binh Hong PA-C under the supervision of Dr. Amos. <Jada Amos - Last Filed: 09/30/19 15:36> Vitals/I&O's: Vital Signs Temp Pulse Resp BP Pulse Ox 98.2 F 85 16 117/82 H 98 09/30/19 14:01 09/30/19 14:01 09/30/19 14:01 09/30/19 14:01 09/30/19 14:01 Oxygen Flow Rate (L/min) 2 Oxygen Delivery Method Nasal Cannula Weight: 188 lb 0.869 oz Body Mass Index (BMI) 36.9 Intake and Output for Last 24 Hours 09/28/19 09/29/19 09/30/19 23:59 23:59 23:59 Intake Total 1300 / 1300 1079 / 1079 120 / 120 Output Total 400 / 400 925 / 925 400 / 400 Balance 900 / 900 154 / 154 -280 / -280 Laboratory Results 09/29/19 17:54: POC Glucose 151 H 09/29/19 21:29: POC Glucose 131 H 09/30/19 04:52: WBC 7.0, RBC 3.60 L, Hgb 9.6 L, Hct 32.5 L, MCV 90.3, MCH 26.7 L , MCHC 29.5 L, RDW Std Deviation 53.7 H, RDW Coeff of Jade 16.2 H, Plt Count 272, MPV 10.2, Immature Gran % (Auto) 0.100, Neut % (Auto) 60.8, Lymph % (Auto) 24.6, Swift % (Auto) 10.1 H, Eos % (Auto) 3.7, Baso % (Auto) 0.7, Absolute Neuts (auto) 4.3, Absolute Lymphs (auto) 1.73, Nucleated RBC % 0 09/30/19 04:52: Sodium 138, Potassium 4.1, Chloride 107, Carbon Dioxide 22.0, Anion Gap 9, BUN 48 H, Creatinine 2.34 H, Estim Creat Clear Calc 33.02, Est GFR (MDRD) Af Amer 27 L, Est GFR (MDRD) Non-Af 22 L, BUN/Creatinine Ratio 20.5 H, Glucose 219 H, Calcium 8.2 L 09/30/19 07:45: POC Glucose 244 H 09/30/19 11:19: POC Glucose 180 H Current Medications Acetaminophen (Tylenol) 650 mg PO Q6H PRN PRN PRN Reason: Pain Score 1-10/Temp > 100.7 F Last Admin: 09/28/19 10:51 Dose: 650 mg Documented by: Albuterol/Ipratropium (Duoneb) 3 ml INHALATION Q6HWA.RT [facility] Aspirin (Aspirin, Baby) 81 mg PO DAILY@0800 [facility] Last Admin: 09/30/19 08:16 Dose: 81 mg Documented by: Atorvastatin Calcium (Lipitor) 40 mg PO QHS [facility] Last Admin: 09/29/19 21:42 Dose: 40 mg Documented by: Buspirone HCl (Buspar) 20 mg PO TID [facility] Last Admin: 09/30/19 14:08 Dose: 20 mg Documented by: Calcium Carbonate (Tums) 1,000 mg PO BID PRN PRN PRN Reason: INDIGESTION Clopidogrel Bisulfate (Plavix) 75 mg PO DAILY [facility] Last Admin: 09/30/19 10:39 Dose: 75 mg Documented by: Doxycycline Monohydrate (Doxycycline) 100 mg PO BID [facility] Stop: 10/05/19 22:00 Last Admin: 09/30/19 10:36 Dose: 100 mg Documented by: Enoxaparin Sodium (Lovenox) 30 mg SC DAILY [facility] Last Admin: 09/30/19 10:38 Dose: 30 mg Documented by: Ergocalciferol (Vitamin D) 50,000 unit PO [facility] Gabapentin (Neurontin) 100 mg PO QHS [facility] Last Admin: 09/29/19 21:42 Dose: 100 mg Documented by: Glucagon () 1 mg IM .X1 PRN PRN Reason: Hypoglycemia Sodium Chloride () 250 mls @ 15 mls/hr IV .[id number] PRN PRN Reason: Saline Flush Sodium Chloride () 250 mls @ 15 mls/hr IV .[id number] PRN PRN Reason: Additional IVPB Infusion Furosemide 500 mg/ N/A 50 mls @ 1 mls/hr CONT INF .Q50H [facility] Last Admin: 09/30/19 13:00 Dose: 10 mg/hr, 1 mls/hr Documented by: Insulin Glargine (Lantus (Bkc)) 20 units SC QHS [facility] Last Admin: 09/29/19 21:43 Dose: 20 units Documented by: Insulin Human Lispro (Humalog Kwikpen (Bkc)) 0 unit SC ACHS [facility]; Protocol Last Admin: 09/30/19 12:59 Dose: 1 units Documented by: Insulin Human Lispro (Humalog Kwikpen (Bk)) 3 unit SC TIDCM [facility]; Protocol Last Admin: 09/30/19 13:00 Dose: 3 units Documented by: Loratadine (Claritin) 10 mg PO DAILY PRN PRN Reason: ALLERGIES Melatonin (Melatonin) 10 mg PO QHS PRN PRN Reason: INSOMNIA Last Admin: 09/29/19 21:42 Dose: 10 mg Documented by: Metoprolol Succinate (Toprol Xl (Beta Kristy)) 25 mg PO DAILY [facility] Last Admin: 09/30/19 10:40 Dose: 25 mg Documented by: Neomycin/Polymyxin/Bacitracin (Neosporin) 1 applic TOPICAL DAILY [facility]; Protocol Last Admin: 09/30/19 10:38 Dose: 1 applicatio Documented by: [id number] Ethyl Esters (Lovaza) 2 gm PO DAILY [facility] Last Admin: 09/30/19 10:37 Dose: 2 gm Documented by: Oxycodone HCl (Oxyir) 5 mg PO Q6H PRN PRN PRN Reason: Pain Score 6-10/10 Last Admin: 09/30/19 06:51 Dose: 5 mg Documented by: Potassium Chloride (K-Dur) 20 meq PO BID [facility] Last Admin: 09/30/19 10:36 Dose: 20 meq Documented by: Prochlorperazine Edisylate (Compazine Iv) 5 mg IV Q4H PRN PRN PRN Reason: NAUSEA/VOMITING Last Admin: 09/28/19 19:29 Dose: 5 mg Documented by: Sertraline HCl (Zoloft) 50 mg PO DAILY [facility] Last Admin: 09/30/19 10:41 Dose: 50 mg Documented by: Sodium Chloride () 10 - 40 ml IV UD PRN PRN Reason: SALINE FLUSH Last Admin: 09/30/19 13:00 Dose: 10 ml Documented by: Triamcinolone Acetonide (Triamcinolone Acetonide) 1 applic TOPICAL DAILY [facility] Last Admin: 09/30/19 10:40 Dose: 1 applicatio Documented by: STROKE Vital Signs/Narrative: Vital Signs Temp Pulse Resp BP Pulse Ox 09/30/19 14:01 98.2 F 85 16 117/82 H 98 09/30/19 14:00 85 09/30/19 13:25 18 Assessment/Plan Patient seen by Binh Hong PA-C under my supervision. Seen and examined. She complained of mild shortness of breath today. She says she does not feel well enough to go home and wants to go to a rehab facility to help her get her strength back. She remains on 2 L of oxygen though her saturation is usually fine when she is not on oxygen. She however states that she feels better with oxygen on. She has only passed about 1 L of urine since admission. Review of stems otherwise negative. o/e: Vital Signs Temp Pulse Resp BP Pulse Ox 98.2 F 85 16 117/82 H 98 09/30/19 14:01 09/30/19 14:01 09/30/19 14:09/30/19 14:09/30/19 14:01 General: Alert, Oriented x3, Cooperative, No apparent distress HEENT: Atraumatic, PERRLA, EOMI, Normocephalic Oral: Moist Mucosa Neck: Supple, No JVD, Negative Carotid Bruits Lungs: - - mildly decreased breath sounds bibasally. no wheezes or crackles. on 2L of oxygen. Cardiovascular: Regular rate, Regular Rhythm, Normal S1, Normal S2, No murmurs Abdomen: Bowel Sounds Present, Soft, Non Tender, Non-Distended, No Hepato-splenomegaly Extremities: No clubbing, No cyanosis, Edema - 1+ bipedal pitting edema Skin: No rashes, No breakdown, - -left foot bandaged. Musculoskeletal: No Tenderness to Palpation of Joints or Extremities Lymphatic: No Cervical, Supraclavicular, or Inguinal Adenopathy Neurological: Cranial nerves II-XII grossly intact, Neuro grossly intact, Motor Exam 5/5 strength throughout Psych/Mental Status: Normal Affect, Appropriate, Alert and oriented to time, place, person, mood and affect Plan is to start patient on Lasix drip. Consult cardiology due to patient's inadequate diuresis. Continue monitoring intake and output. Fluid restrictions 1500 cc daily. Rest as per Binh Hong PA-C's notes which I reviewed and endorsed. Inpatient E&M: 01601 Subs Hosp L2
[2019-09-30] MEDS: Furosemide 500 MG in Empty Viaflex 50 mL 1 EACH CONT INF (13:00)
[2019-09-30] MEDS: 0.9% Saline Lock 10 ML Syringe IV (13:00)
--- NOTE | 2019-09-30 13:00 | CASEMGMT ---
SW spoke with patient and she gave SW the list with 3 more choices numbered. Her next choice was [facility]. SW told her SW will make the referral and let her know. SW faxed referral to [facility] and will also call. Shanique CONNOR MSW
--- NOTE | 2019-09-30 14:34 | CASEMGMT ---
JAX received a return call from Ketty at [facility] and they can accept patient. JAX will call her tomorrow to let her know when to start the pre-cert. JAX will let patient know, she is currently having a test done. Plan: [facility] pending patient being medically ready and insurance approval. Shanique MARTIN
[2019-09-30 16:15] LABS: Bedside Glucose 196 mg/dL (70-110)
--- NOTE | 2019-09-30 20:43 | PN.SURG_ITS ---
Subjective: patient is seen at bedside this afternoon. patient denies any issues with her foot. she denies any pain of left 2nd toe. she had pvr performed today. Objective: patient is alert and orientated x 3. patient does not appear in any distress vascular: DP and PT pulses are nonpalpable to b/l lower extremity. CFT is de layed. Skin temperature is warm to cool. pitting edema is noted b/l. no calf pain present. Derm: there are no local signs of infection to left 2nd toe. left 2nd toenail has been debrided. the proximal nail is intact and does not show any loosening. no nail bed laceration or infection noted. left 2nd toe appears stable. m/s: there is swelling in b/l lower extremity. no calf pain present. - Physical Exam Vitals/I&O's: Vital Signs Temp Pulse Resp BP Pulse Ox 98.2 F 82 18 117/82 H 99 09/30/19 14:01 09/30/19 19:59 09/30/19 19:59 09/30/19 14:01 09/30/19 20:00 Oxygen Flow Rate (L/min) 2 Oxygen Delivery Method Nasal Cannula Weight: 85.3 kg Body Mass Index (BMI) 36.9 Intake and Output for Last 24 Hours 09/28/19 09/29/19 09/30/19 23:59 23:59 23:59 Intake Total 1300 / 1300 1079 / 1079 120 / 120 Output Total 400 / 400 925 / 925 400 / 400 Balance 900 / 900 154 / 154 -280 / -280 Laboratory Results 09/29/19 21:29: POC Glucose 131 H 09/30/19 04:52: WBC 7.0, RBC 3.60 L, Hgb 9.6 L, Hct 32.5 L, MCV 90.3, MCH 26.7 L , MCHC 29.5 L, RDW Std Deviation 53.7 H, RDW Coeff of Jade 16.2 H, Plt Count 272, MPV 10.2, Immature Gran % (Auto) 0.100, Neut % (Auto) 60.8, Lymph % (Auto) 24.6, [place] % (Auto) 10.1 H, Eos % (Auto) 3.7, Baso % (Auto) 0.7, Absolute Neuts (auto) 4.3, Absolute Lymphs (auto) 1.73, Nucleated RBC % 0 09/30/19 04:52: Sodium 138, Potassium 4.1, Chloride 107, Carbon Dioxide 22.0, Anion Gap 9, BUN 48 H, Creatinine 2.34 H, Estim Creat Clear Calc 33.02, Est GFR (MDRD) Af Amer 27 L, Est GFR (MDRD) Non-Af 22 L, BUN/Creatinine Ratio 20.5 H, Glucose 219 H, Calcium 8.2 L 09/30/19 07:45: POC Glucose 244 H 09/30/19 11:19: POC Glucose 180 H 09/30/19 16:07: POC Glucose 196 H Current Medications Acetaminophen (Tylenol) 650 mg PO Q6H PRN PRN PRN Reason: Pain Score 1-10/Temp > 100.7 F Last Admin: 09/28/19 10:51 Dose: 650 mg Documented by: Albuterol/Ipratropium (Duoneb) 3 ml INHALATION Q6HWA.RT [facility] Last Admin: 09/30/19 19:58 Dose: 3 ml Documented by: Aspirin (Aspirin, Baby) 81 mg PO DAILY@0800 [facility] Last Admin: 09/30/19 08:16 Dose: 81 mg Documented by: Atorvastatin Calcium (Lipitor) 40 mg PO QHS [facility] Last Admin: 09/29/19 21:42 Dose: 40 mg Documented by: Buspirone HCl (Buspar) 20 mg PO TID [facility] Last Admin: 09/30/19 14:08 Dose: 20 mg Documented by: Calcium Carbonate (Tums) 1,000 mg PO BID PRN PRN PRN Reason: INDIGESTION Clopidogrel Bisulfate (Plavix) 75 mg PO DAILY [facility] Last Admin: 09/30/19 10:39 Dose: 75 mg Documented by: Doxycycline Monohydrate (Doxycycline) 100 mg PO BID [facility] Stop: 10/05/19 22:00 Last Admin: 09/30/19 10:36 Dose: 100 mg Documented by: Enoxaparin Sodium (Lovenox) 30 mg SC DAILY [facility] Last Admin: 09/30/19 10:38 Dose: 30 mg Documented by: Ergocalciferol (Vitamin D) 50,000 unit PO [facility] Gabapentin (Neurontin) 100 mg PO QHS [facility] Last Admin: 09/29/19 21:42 Dose: 100 mg Documented by: Glucagon () 1 mg IM .X1 PRN PRN Reason: Hypoglycemia Sodium Chloride () 250 mls @ 15 mls/hr IV .[id number] PRN PRN Reason: Saline Flush Sodium Chloride () 250 mls @ 15 mls/hr IV .[id number] PRN PRN Reason: Additional IVPB Infusion Furosemide 500 mg/ N/A 50 mls @ 1 mls/hr CONT INF .Q50H [facility] Last Admin: 09/30/19 13:00 Dose: 10 mg/hr, 1 mls/hr Documented by: Insulin Glargine (Lantus (Bkc)) 20 units SC QHS [facility] Last Admin: 09/29/19 21:43 Dose: 20 units Documented by: Insulin Human Lispro (Humalog Kwikpen (Bk)) 0 unit SC ACHS [facility]; Protocol Last Admin: 09/30/19 17:05 Dose: 2 units Documented by: Insulin Human Lispro (Humalog Kwikpen (Bk)) 3 unit SC TIDCM [facility]; Protocol Last Admin: 09/30/19 17:05 Dose: 3 units Documented by: Loratadine (Claritin) 10 mg PO DAILY PRN PRN Reason: ALLERGIES Melatonin (Melatonin) 10 mg PO QHS PRN PRN Reason: INSOMNIA Last Admin: 09/29/19 21:42 Dose: 10 mg Documented by: Metoprolol Succinate (Toprol Xl (Beta Kristy)) 25 mg PO DAILY [facility] Last Admin: 09/30/19 10:40 Dose: 25 mg Documented by: Neomycin/Polymyxin/Bacitracin (Neosporin) 1 applic TOPICAL DAILY [facility]; Protocol Last Admin: 09/30/19 10:38 Dose: 1 applicatio Documented by: [id number] Ethyl Esters (Lovaza) 2 gm PO DAILY [facility] Last Admin: 09/30/19 10:37 Dose: 2 gm Documented by: Oxycodone HCl (Oxyir) 5 mg PO Q6H PRN PRN PRN Reason: Pain Score 6-10/10 Last Admin: 09/30/19 18:00 Dose: 5 mg Documented by: Potassium Chloride (K-Dur) 20 meq PO BID [facility] Last Admin: 09/30/19 10:36 Dose: 20 meq Documented by: Prochlorperazine Edisylate (Compazine Iv) 5 mg IV Q4H PRN PRN PRN Reason: NAUSEA/VOMITING Last Admin: 09/28/19 19:29 Dose: 5 mg Documented by: Sertraline HCl (Zoloft) 50 mg PO DAILY [facility] Last Admin: 09/30/19 10:41 Dose: 50 mg Documented by: Sodium Chloride () 10 - 40 ml IV UD PRN PRN Reason: SALINE FLUSH Last Admin: 09/30/19 13:00 Dose: 10 ml Documented by: Triamcinolone Acetonide (Triamcinolone Acetonide) 1 applic TOPICAL DAILY [facility] Last Admin: 09/30/19 10:40 Dose: 1 applicatio Documented by: Medical Necessity - Tobacco Use Smoking Status: Former smoker Assessment/Plan All Active Problems (Last Reviewed 09/28/19 @ 07:[address] Kerwin Brizuela MD) CHF exacerbation (Acute) History of coronary artery stent placement (Resolved 05/18/18) Acute on chronic combined systolic (congestive) and diastolic (congestive) heart failure (Acute) Acute exacerbation of CHF (congestive heart failure) (Resolved) COPD exacerbation (Resolved) Chronic ulcer of buttock (Resolved) Flash pulmonary edema (Resolved) patient left 2nd toe was evaluated. left 2nd toe appears stable with no loosening of nail plate, no local signs of infection. I am going to recommend continued use of neosporin to her toe. she can continue with doxycycline for total of one week. I reviewed pvr. she has tbi of 0.41 and peace of 0.68. in the absence of any infection or loosening of toenail, I am going to hold on removal of toenail and monitor closely and she can f/u at discharge to monitor toe.
[2019-09-30] MEDS: Atorvastatin Calcium 40 MG Tablet PO (21:21)
[2019-09-30] MEDS: Gabapentin 100 MG Capsule PO (21:21)
[2019-09-30] MEDS: MELATONIN 10 MG TABLET PO (21:29)
[2019-09-30 21:45] LABS: Bedside Glucose 157 mg/dL (70-110)
[2019-10-01] VITALS (15 sets, daily range): BP systolic 98–117; BP diastolic 56–75; PULSE 81–97; RESP 16–24; TEMP 36.6–36.9; O2SAT 93–99
[2019-10-01] MEDS: busPIRone 5 MG Tablet 20 MG PO ×3 (05:12→22:08)
[2019-10-01 05:42] LABS: Absolute Lymphocyte Count 1.56 X10^3/uL (0.83-4.51); Absolute Neutrophil Count 5.4 X10^3/uL (2.0-7.7); Basophil# 0.05 X10^3/uL; Basophil% 0.6 % (0-1); Eosinophil# 0.29 X10^3/uL; Eosinophils% 3.6 % (0-5); Hematocrit 33.2 % (37-47); Lymphocyte # 1.56 X10^3/ul (4.0); Lymphocyte % 19.4 % (19-41); Mean Corp Hgb Conc 30.1 g/dL (32-36); Mean Corpuscular Volume 89.7 fL (81-99); Monocyte# 0.69 X10^3/uL; Monocyte% 8.6 % (0-10); NRBC Flagged by Analyzer 0 % (0-5); Neutrophil # 5.44 X10^3/uL (2.7-7.7); Neutrophil % 67.4 % (47-70); Platelet Count 266 K/mm3 (150-450); RBC Distribution Width CV 16.1 % (11.6-14.6); RBC Distribution Width SD 53.1 fl (35.1-43.9); White Blood Count 8.1 K/mm3 (4.4-11.0)
[2019-10-01 06:01] LABS: Anion Gap 7 (5-15); BUN 46 mg/dL (7-18); BUN/Creat Ratio 21.1 RATIO (10-20); Calcium,Total 8.1 mg/dL (8.5-10.1); Chloride 108 mmol/L (98-107); Creatinine, Serum 2.18 mg/dL (0.55-1.02); EST Glomerular Filtration Rate 24 mL/min (>60); Est Glom Filt Rate - Afr Amer 29 mL/min (>60); Estimated Creatinine Clearance 34.99 ml/min; Glucose 202 mg/dL (74-106); Potassium 3.8 mmol/L (3.5-5.1); Sodium Level 136 mmol/L (136-145)
[2019-10-01] MEDS: Ipratropium/Albuterol Sulfate 3 ML AMPUL.NEB INHALATION ×3 (06:40→18:55)
[2019-10-01] MEDS: Insulin Lispro 100 UNIT/ML INSULN.PEN SC ×7 (06:45→22:09)
[2019-10-01] MEDS: oxyCODONE 5 MG Tablet PO ×3 (06:45→20:24)
[2019-10-01 07:05] LABS: Bedside Glucose 199 mg/dL (70-110)
[2019-10-01] MEDS: Omega-3 Acid Ethyl Esters 1 GM Capsule 2 GM PO (08:53)
[2019-10-01] MEDS: Aspirin 81 MG TAB.CHEW PO (08:54)
[2019-10-01] MEDS: Clopidogrel Bisulfate 75 MG Tablet PO (08:54)
[2019-10-01] MEDS: Doxycycline 100 MG CAPSULE PO ×2 (08:54→22:08)
[2019-10-01] MEDS: Sertraline 50 MG Tablet PO (08:54)
[2019-10-01] MEDS: Triamcinolone 0.5% Cream 1 APPLIC TOPICAL (08:55)
[2019-10-01] MEDS: Metoprolol(XL)Succ 25 MG Tablet PO (08:55)
[2019-10-01] MEDS: Enoxaparin 30 MG/0.3 ML Syringe SC (08:56)
[2019-10-01] MEDS: Neomycin/Bacitracin/Polymyxin Ointment 1 APPLIC TOPICAL (08:57)
--- NOTE | 2019-10-01 09:59 | CASEMGMT ---
JAX faxed updated information to [facility]. JAX also called Ketty at [facility] and told her to please start the pre-cert. Plan: [facility] pending pre-cert Shanique CONNOR MSW
[2019-10-01 10:16] LABS: Bedside Glucose 204 mg/dL (70-110)
--- NOTE | 2019-10-01 11:47 | CASEMGMT ---
[facility] aware that pt plans to go to [facility] at discharge, voices understanding. Sondra VARGAS CM
[2019-10-01 12:10] LABS: Bedside Glucose 237 mg/dL (70-110)
--- NOTE | 2019-10-01 14:05 | PN_ITS ---
<Binh Hong - Last Filed: 10/01/19 14:05> Reason for Visit: SOB Subjective: Breathing improved. LE edema improved. No CP/tightness/pressure/heaviness. No palp. No Nausea/Vom/Diarrhea. Pt awaiting precert for SNF. Vitals/I&O's: Vital Signs Temp Pulse Resp BP Pulse Ox 98.0 F 89 18 107/56 L 97 10/01/19 08:15 10/01/19 08:55 10/01/19 08:15 10/01/19 08:15 10/01/19 08:15 Oxygen Flow Rate (L/min) 2 Oxygen Delivery Method Nasal Cannula Weight: 184 lb 15.485 oz Body Mass Index (BMI) 36.9 Intake and Output for Last 24 Hours 09/29/19 09/30/19 10/01/19 23:59 23:59 23:59 Intake Total 1079 / 1079 120 / 360 340 / 340 Output Total 925 / 925 400 / 900 500 / 500 Balance 154 / 154 -280 / -540 -160 / -160 General: Alert, Oriented x3, Cooperative HEENT: Atraumatic, PERRLA, EOMI, Normocephalic Neck: Supple, No JVD, Negative Carotid Bruits Lungs: Diminished, Rales - RLL Cardiovascular: Regular rate, No murmurs Abdomen: Bowel Sounds Present, Soft, Non Tender Extremities: Capillary Refill Less than 3 Seconds, Edema - 1-2+ pitting edema BLE Skin: No rashes, No breakdown Musculoskeletal: No Tenderness to Palpation of Joints or Extremities Neurological: Cranial nerves II-XII grossly intact Psych/Mental Status: Normal Affect, Appropriate, Alert and oriented to time, place, person, mood and affect Laboratory Results 09/30/19 16:07: POC Glucose 196 H 09/30/19 21:17: POC Glucose 157 H 10/01/19 05:02: WBC 8.1, RBC 3.70 L, Hgb 10.0 L, Hct 33.2 L, MCV 89.7, MCH 27.0, MCHC 30.1 L, RDW Std Deviation 53.1 H, RDW Coeff of Jade 16.1 H, Plt Count 266, MPV 10.0, Immature Gran % (Auto) 0.400, Neut % (Auto) 67.4, Lymph % (Auto) 19.4, [place] % (Auto) 8.6, Eos % (Auto) 3.6, Baso % (Auto) 0.6, Absolute Neuts (auto) 5.4, Absolute Lymphs (auto) 1.56, Nucleated RBC % 0 10/01/19 05:02: Sodium 136, Potassium 3.8, Chloride 108 H, Carbon Dioxide 21.0, Anion Gap 7, BUN 46 H, Creatinine 2.18 H, Estim Creat Clear Calc 34.99, Est GFR (MDRD) Af Amer 29 L, Est GFR (MDRD) Non-Af 24 L, BUN/Creatinine Ratio 21.1 H, Glucose 202 H, Calcium 8.1 L 10/01/19 06:38: POC Glucose 199 H 10/01/19 09:01: POC Glucose 204 H 10/01/19 11:45: POC Glucose 237 H Current Medications Acetaminophen (Tylenol) 650 mg PO Q6H PRN PRN PRN Reason: Pain Score 1-10/Temp > 100.7 F Last Admin: 09/28/19 10:51 Dose: 650 mg Documented by: Albuterol/Ipratropium (Duoneb) 3 ml INHALATION Q6HWA.RT [facility] Last Admin: 10/01/19 06:40 Dose: 3 ml Documented by: Aspirin (Aspirin, Baby) 81 mg PO DAILY@0800 [facility] Last Admin: 10/01/19 08:54 Dose: 81 mg Documented by: Atorvastatin Calcium (Lipitor) 40 mg PO QHS [facility] Last Admin: 09/30/19 21:21 Dose: 40 mg Documented by: Buspirone HCl (Buspar) 20 mg PO TID [facility] Last Admin: 10/01/19 05:12 Dose: 20 mg Documented by: Calcium Carbonate (Tums) 1,000 mg PO BID PRN PRN PRN Reason: INDIGESTION Clopidogrel Bisulfate (Plavix) 75 mg PO DAILY [facility] Last Admin: 10/01/19 08:54 Dose: 75 mg Documented by: Doxycycline Monohydrate (Doxycycline) 100 mg PO BID [facility] Stop: 10/05/19 22:00 Last Admin: 10/01/19 08:54 Dose: 100 mg Documented by: Enoxaparin Sodium (Lovenox) 30 mg SC DAILY [facility] Last Admin: 10/01/19 08:56 Dose: 30 mg Documented by: Ergocalciferol (Vitamin D) 50,000 unit PO WE [facility] Furosemide (Lasix) 80 mg PO BID@1000,1800 [facility] Gabapentin (Neurontin) 100 mg PO QHS [facility] Last Admin: 09/30/19 21:21 Dose: 100 mg Documented by: Glucagon () 1 mg IM .X1 PRN PRN Reason: Hypoglycemia Sodium Chloride () 250 mls @ 15 mls/hr IV .[id number] PRN PRN Reason: Saline Flush Sodium Chloride () 250 mls @ 15 mls/hr IV .[id number] PRN PRN Reason: Additional IVPB Infusion Insulin Glargine (Lantus (Bkc)) 20 units SC QHS [facility] Last Admin: 09/30/19 21:20 Dose: 20 units Documented by: Insulin Human Lispro (Humalog Kwikpen (Bkc)) 0 unit SC ACHS [facility]; Protocol Last Admin: 10/01/19 11:48 Dose: 3 units Documented by: Insulin Human Lispro (Humalog Kwikpen (Bkc)) 3 unit SC TIDCM [facility]; Protocol Last Admin: 10/01/19 11:49 Dose: 3 units Documented by: Loratadine (Claritin) 10 mg PO DAILY PRN PRN Reason: ALLERGIES Melatonin (Melatonin) 10 mg PO QHS PRN PRN Reason: INSOMNIA Last Admin: 09/30/19 21:29 Dose: 10 mg Documented by: Metoprolol Succinate (Toprol Xl (Beta Kristy)) 25 mg PO DAILY [facility] Last Admin: 10/01/19 08:55 Dose: 25 mg Documented by: Neomycin/Polymyxin/Bacitracin (Neosporin) 1 applic TOPICAL DAILY [facility]; Protocol Last Admin: 10/01/19 08:57 Dose: 1 applicatio Documented by: [id number] Ethyl Esters (Lovaza) 2 gm PO DAILY [facility] Last Admin: 10/01/19 08:53 Dose: 2 gm Documented by: Oxycodone HCl (Oxyir) 5 mg PO Q6H PRN PRN PRN Reason: Pain Score 6-10/10 Last Admin: 10/01/19 06:45 Dose: 5 mg Documented by: Potassium Chloride (K-Dur) 20 meq PO BID [facility] Last Admin: 10/01/19 08:53 Dose: 20 meq Documented by: Prochlorperazine Edisylate (Compazine Iv) 5 mg IV Q4H PRN PRN PRN Reason: NAUSEA/VOMITING Last Admin: 09/28/19 19:29 Dose: 5 mg Documented by: Sertraline HCl (Zoloft) 50 mg PO DAILY [facility] Last Admin: 10/01/19 08:54 Dose: 50 mg Documented by: Sodium Chloride () 10 - 40 ml IV UD PRN PRN Reason: SALINE FLUSH Last Admin: 09/30/19 13:00 Dose: 10 ml Documented by: Triamcinolone Acetonide (Triamcinolone Acetonide) 1 applic TOPICAL DAILY [facility] Last Admin: 10/01/19 08:55 Dose: 1 applicatio Documented by: Medical Necessity - Tobacco Use Smoking Status: Former smoker Assessment/Plan All Active Problems (Last Reviewed 09/28/19 @ 07:[address] Kerwin Brizuela MD) CHF exacerbation (Acute) History of coronary artery stent placement (Resolved 05/18/18) Acute on chronic combined systolic (congestive) and diastolic (congestive) heart failure (Acute) Acute exacerbation of CHF (congestive heart failure) (Resolved) COPD exacerbation (Resolved) Chronic ulcer of buttock (Resolved) Flash pulmonary edema (Resolved) 1. Acute on chronic mixed CHF, complicated by pulmonary HTN, sever MVI 4+, 2+ TVI - 4 lb weight loss overnight. off o2. still some LE edema. Transition to PO lasix. Follow up with cardiology as o/p. 2. Elevated trop 2/2 above - no EKG changes, no CP. Suspect 2/2 Acute CHF and renal dz. Hx CAD. Continue aspirin, statin, plavix, metoprolol. 3. CKDIII - stable - trend 4. Hematoma left foot - discussed with Dr. Talley, continue doxy until follow up as o/p next week. Wound healing complicated by PAD. 5. T2DM - Lantus, TID insulin, + SSI, titrate to response. 6. Anx/depresion - buspar, zoloft 7. PAD - per JOANA studies done. follow up with podiatry as o/p. DVT ppx: lovenox DC planning: precert pending for snf. This patient was seen by Binh Hong PA-C under the supervision of Dr. Amos. <Koram,Jada Renetta - Last Filed: 10/01/19 17:28> Vitals/I&O's: Vital Signs Temp Pulse Resp BP Pulse Ox 98.2 F 85 18 117/72 96 10/01/19 17:17 10/01/19 17:17 10/01/19 17:17 10/01/19 17:17 10/01/19 17:17 Oxygen Flow Rate (L/min) 2 Oxygen Delivery Method Nasal Cannula Weight: 184 lb 15.485 oz Body Mass Index (BMI) 36.9 Intake and Output for Last 24 Hours 09/29/19 09/30/19 10/01/19 23:59 23:59 23:59 Intake Total 1079 / 1079 120 / 360 1085.62 / 1085.62 Output Total 925 / 925 400 / 900 500 / 500 Balance 154 / 154 -280 / -540 585.62 / 585.62 Laboratory Results 09/30/19 21:17: POC Glucose 157 H 10/01/19 05:02: WBC 8.1, RBC 3.70 L, Hgb 10.0 L, Hct 33.2 L, MCV 89.7, MCH 27.0, MCHC 30.1 L, RDW Std Deviation 53.1 H, RDW Coeff of Jade 16.1 H, Plt Count 266, MPV 10.0, Immature Gran % (Auto) 0.400, Neut % (Auto) 67.4, Lymph % (Auto) 19.4, [place] % (Auto) 8.6, Eos % (Auto) 3.6, Baso % (Auto) 0.6, Absolute Neuts (auto) 5.4, Absolute Lymphs (auto) 1.56, Nucleated RBC % 0 10/01/19 05:02: Sodium 136, Potassium 3.8, Chloride 108 H, Carbon Dioxide 21.0, Anion Gap 7, BUN 46 H, Creatinine 2.18 H, Estim Creat Clear Calc 34.99, Est GFR (MDRD) Af Amer 29 L, Est GFR (MDRD) Non-Af 24 L, BUN/Creatinine Ratio 21.1 H, Glucose 202 H, Calcium 8.1 L 10/01/19 06:38: POC Glucose 199 H 10/01/19 09:01: POC Glucose 204 H 10/01/19 11:45: POC Glucose 237 H Current Medications Acetaminophen (Tylenol) 650 mg PO Q6H PRN PRN PRN Reason: Pain Score 1-10/Temp > 100.7 F Last Admin: 09/28/19 10:51 Dose: 650 mg Documented by: Albuterol/Ipratropium (Duoneb) 3 ml INHALATION Q6HWA.RT [facility] Last Admin: 10/01/19 14:17 Dose: 3 ml Documented by: Aspirin (Aspirin, Baby) 81 mg PO DAILY@0800 [facility] Last Admin: 10/01/19 08:54 Dose: 81 mg Documented by: Atorvastatin Calcium (Lipitor) 40 mg PO QHS [facility] Last Admin: 09/30/19 21:21 Dose: 40 mg Documented by: Buspirone HCl (Buspar) 20 mg PO TID [facility] Last Admin: 10/01/19 14:40 Dose: 20 mg Documented by: Calcium Carbonate (Tums) 1,000 mg PO BID PRN PRN PRN Reason: INDIGESTION Clopidogrel Bisulfate (Plavix) 75 mg PO DAILY [facility] Last Admin: 10/01/19 08:54 Dose: 75 mg Documented by: Doxycycline Monohydrate (Doxycycline) 100 mg PO BID [facility] Stop: 10/05/19 22:00 Last Admin: 10/01/19 08:54 Dose: 100 mg Documented by: Enoxaparin Sodium (Lovenox) 30 mg SC DAILY [facility] Last Admin: 10/01/19 08:56 Dose: 30 mg Documented by: Ergocalciferol (Vitamin D) 50,000 unit PO [facility] Furosemide (Lasix) 80 mg PO BID@1000,1800 [facility] Last Admin: 10/01/19 17:22 Dose: 80 mg Documented by: Gabapentin (Neurontin) 100 mg PO QHS [facility] Last Admin: 09/30/19 21:21 Dose: 100 mg Documented by: Glucagon () 1 mg IM .X1 PRN PRN Reason: Hypoglycemia Sodium Chloride () 250 mls @ 15 mls/hr IV .[id number] PRN PRN Reason: Saline Flush Sodium Chloride () 250 mls @ 15 mls/hr IV .[id number] PRN PRN Reason: Additional IVPB Infusion Insulin Glargine (Lantus (Bk)) [facility] Insulin Human Lispro (Humalog Kwikpen ([facility])) 0 unit SC ACHS [facility]; Protocol Last Admin: 10/01/19 17:09 Dose: 1 units Documented by: Insulin Human Lispro (Humalog Kwikpen (Bkc)) 3 unit SC TIDCM [facility]; Protocol Last Admin: 10/01/19 17:09 Dose: 3 units Documented by: Loratadine (Claritin) 10 mg PO DAILY PRN PRN Reason: ALLERGIES Melatonin (Melatonin) 10 mg PO QHS PRN PRN Reason: INSOMNIA Last Admin: 09/30/19 21:29 Dose: 10 mg Documented by: Metoprolol Succinate (Toprol Xl (Beta Kristy)) 25 mg PO DAILY [facility] Last Admin: 10/01/19 08:55 Dose: 25 mg Documented by: Neomycin/Polymyxin/Bacitracin (Neosporin) 1 applic TOPICAL DAILY [facility]; Protocol Last Admin: 10/01/19 08:57 Dose: 1 applicatio Documented by: [id number] Ethyl Esters (Lovaza) 2 gm PO DAILY [facility] Last Admin: 10/01/19 08:53 Dose: 2 gm Documented by: Oxycodone HCl (Oxyir) 5 mg PO Q6H PRN PRN PRN Reason: Pain Score 6-10/10 Last Admin: 10/01/19 14:35 Dose: 5 mg Documented by: Potassium Chloride (K-Dur) 20 meq PO BID [facility] Last Admin: 10/01/19 08:53 Dose: 20 meq Documented by: Prochlorperazine Edisylate (Compazine Iv) 5 mg IV Q4H PRN PRN PRN Reason: NAUSEA/VOMITING Last Admin: 09/28/19 19:29 Dose: 5 mg Documented by: Sertraline HCl (Zoloft) 50 mg PO DAILY [facility] Last Admin: 10/01/19 08:54 Dose: 50 mg Documented by: Sodium Chloride () 10 - 40 ml IV UD PRN PRN Reason: SALINE FLUSH Last Admin: 09/30/19 13:00 Dose: 10 ml Documented by: Triamcinolone Acetonide (Triamcinolone Acetonide) 1 applic TOPICAL DAILY [facility] Last Admin: 10/01/19 08:55 Dose: 1 applicatio Documented by: STROKE Vital Signs/Narrative: Vital Signs Temp Pulse Resp BP Pulse Ox 10/01/19 17:17 98.2 F 85 18 117/72 96 10/01/19 15:32 86 10/01/19 14:17 86 18 10/01/19 14:15 98.3 F 88 16 98/60 96 10/01/19 14:00 96 Assessment/Plan Patient seen and examined. Still complains of feeling weak and states that shortness of breath is the same as when she came in. However patient saturates well on room air and clinically looks stable. Review of systems otherwise negative. o/e: Vital Signs Temp Pulse Resp BP Pulse Ox 98.2 F 85 18 117/72 96 10/01/19 17:17 10/01/19 17:17 10/01/19 17:17 10/01/19 17:17 10/01/19 17:17 General: Alert, Oriented x3, Cooperative, No apparent distress HEENT: Atraumatic, PERRLA, EOMI, Normocephalic Oral: Moist Mucosa Neck: Supple, No JVD, Negative Carotid Bruits Lungs: - - mildly decreased breath sounds bibasally. no wheezes or crackles. on 2L of oxygen. Cardiovascular: Regular rate, Regular Rhythm, Normal S1, Normal S2, No murmurs Abdomen: Bowel Sounds Present, Soft, Non Tender, Non-Distended, No Hepato- splenomegaly Extremities: No clubbing, No cyanosis, Edema - 1+ bipedal pitting edema Skin: No rashes, No breakdown, - -left foot bandaged. Musculoskeletal: No Tenderness to Palpation of Joints or Extremities Lymphatic: No Cervical, Supraclavicular, or Inguinal Adenopathy Neurological: Cranial nerves II-XII grossly intact, Neuro grossly intact, Motor Exam 5/5 strength throughout Psych/Mental Status: Normal Affect, Appropriate, Alert and oriented to time, place, person, mood and affect Patient transition to p.o. Lasix. Titrate oxygen to maintain saturation above 90%. Discussed with podiatry about the left second toenail. She is stable and to be followed up with podiatry on outpatient basis. To continue doxycycline until follow-up with podiatry. Also had some evidence of peripheral artery disease and will need follow-up with vascular surgery on outpatient basis. Jasmin ient is awaiting pre-CERT to go to [facility]. Rest as per Binh Hong PA-C's notes which I reviewed and endorsed. Inpatient E&M: 56255 Subs Hosp L2
[2019-10-01] MEDS: Furosemide 80 MG Tablet PO (17:22)
[2019-10-01 17:35] LABS: Bedside Glucose 189 mg/dL (70-110)
[2019-10-01] MEDS: Gabapentin 100 MG Capsule PO (22:09)
[2019-10-01] MEDS: Atorvastatin Calcium 40 MG Tablet PO (22:09)
[2019-10-01] MEDS: MELATONIN 10 MG TABLET PO (22:09)
[2019-10-01 22:20] LABS: Bedside Glucose 189 mg/dL (70-110)
[2019-10-02] VITALS (7 sets, daily range): BP systolic 110–123; BP diastolic 62–75; PULSE 82–88; RESP 16–18; TEMP 36.7–36.8; O2SAT 94–99
[2019-10-02] MEDS: oxyCODONE 5 MG Tablet PO ×3 (02:29→14:59)
[2019-10-02 05:25] LABS: Anion Gap 7 (5-15); BUN 45 mg/dL (7-18); BUN/Creat Ratio 20.7 RATIO (10-20); Calcium,Total 8.3 mg/dL (8.5-10.1); Chloride 107 mmol/L (98-107); Creatinine, Serum 2.17 mg/dL (0.55-1.02); EST Glomerular Filtration Rate 24 mL/min (>60); Est Glom Filt Rate - Afr Amer 29 mL/min (>60); Estimated Creatinine Clearance 35.36 ml/min; Glucose 182 mg/dL (74-106); Potassium 3.9 mmol/L (3.5-5.1); Sodium Level 139 mmol/L (136-145)
[2019-10-02] MEDS: busPIRone 5 MG Tablet 20 MG PO ×2 (05:29→14:59)
[2019-10-02] MEDS: Ipratropium/Albuterol Sulfate 3 ML AMPUL.NEB INHALATION ×2 (06:59→13:30)
[2019-10-02] MEDS: Aspirin 81 MG TAB.CHEW PO (07:55)
[2019-10-02] MEDS: Insulin Lispro 100 UNIT/ML INSULN.PEN SC ×4 (07:55→11:32)
[2019-10-02] MEDS: Sertraline 50 MG Tablet PO (07:56)
[2019-10-02] MEDS: Omega-3 Acid Ethyl Esters 1 GM Capsule 2 GM PO (07:56)
[2019-10-02] MEDS: Clopidogrel Bisulfate 75 MG Tablet PO (07:56)
[2019-10-02] MEDS: Doxycycline 100 MG CAPSULE PO (07:57)
[2019-10-02] MEDS: Metoprolol(XL)Succ 25 MG Tablet PO (07:57)
[2019-10-02] MEDS: Enoxaparin 30 MG/0.3 ML Syringe SC (07:58)
[2019-10-02] MEDS: Neomycin/Bacitracin/Polymyxin Ointment 1 APPLIC TOPICAL (07:58)
[2019-10-02] MEDS: Furosemide 80 MG Tablet PO (07:58)
[2019-10-02] MEDS: Triamcinolone 0.5% Cream 1 APPLIC TOPICAL (07:59)
[2019-10-02 08:55] LABS: Bedside Glucose 180 mg/dL (70-110)
[2019-10-02 11:36] LABS: Bedside Glucose 173 mg/dL (70-110)
--- NOTE | 2019-10-02 12:37 | PN_ITS ---
<Binh Hong - Last Filed: 10/02/19 12:37> Reason for Visit: sob Subjective: No complaints. Doing well. SOB resolved. LE edema improved. Awaiting precert. no cp/dizziness/LH/pressure/tightness/nausea/vomiting/diarrhea/fever/chills Vitals/I&O's: Vital Signs Temp Pulse Resp BP Pulse Ox 98.1 F 85 18 123/75 H 94 10/02/19 07:51 10/02/19 07:57 10/02/19 07:51 10/02/19 07:51 10/02/19 07:51 Oxygen Flow Rate (L/min) 2 Oxygen Delivery Method Room Air Weight: 186 lb 1.122 oz Body Mass Index (BMI) 36.9 Intake and Output for Last 24 Hours 09/30/19 10/01/19 10/02/19 23:59 23:59 23:59 Intake Total 120 / 360 1235.62 / 1235.62 120 / 120 Output Total 400 / 900 500 / 500 Balance -280 / -540 735.62 / 735.62 120 / 120 General: Alert, Oriented x3, Cooperative HEENT: Atraumatic, PERRLA, EOMI, Normocephalic Neck: Supple, No JVD, Negative Carotid Bruits Lungs: Clear to auscultation, Diminished Cardiovascular: Regular rate, No murmurs Abdomen: Bowel Sounds Present, Soft, Non Tender Extremities: Capillary Refill Less than 3 Seconds, Edema - 2+ BL pitting edema Skin: No rashes, No breakdown Musculoskeletal: No Tenderness to Palpation of Joints or Extremities Neurological: Cranial nerves II-XII grossly intact Psych/Mental Status: Normal Affect, Appropriate, Alert and oriented to time, place, person, mood and affect Laboratory Results 10/01/19 17:05: POC Glucose 189 H 10/01/19 22:07: POC Glucose 189 H 10/02/19 04:34: Sodium 139, Potassium 3.9, Chloride 107, Carbon Dioxide 25.0, Anion Gap 7, BUN 45 H, Creatinine 2.17 H, Estim Creat Clear Calc 35.36, Est GFR (MDRD) Af Amer 29 L, Est GFR (MDRD) Non-Af 24 L, BUN/Creatinine Ratio 20.7 H, Glucose 182 H, Calcium 8.3 L 10/02/19 07:54: POC Glucose 180 H 10/02/19 11:29: POC Glucose 173 H Current Medications Acetaminophen (Tylenol) 650 mg PO Q6H PRN PRN PRN Reason: Pain Score 1-10/Temp > 100.7 F Last Admin: 09/28/19 10:51 Dose: 650 mg Documented by: Albuterol/Ipratropium (Duoneb) 3 ml INHALATION Q6HWA.RT [facility] Last Admin: 10/02/19 06:59 Dose: 3 ml Documented by: Aspirin (Aspirin, Baby) 81 mg PO DAILY@0800 [facility] Last Admin: 10/02/19 07:55 Dose: 81 mg Documented by: Atorvastatin Calcium (Lipitor) 40 mg PO QHS [facility] Last Admin: 10/01/19 22:09 Dose: 40 mg Documented by: Buspirone HCl (Buspar) 20 mg PO TID [facility] Last Admin: 10/02/19 05:29 Dose: 20 mg Documented by: Calcium Carbonate (Tums) 1,000 mg PO BID PRN PRN PRN Reason: INDIGESTION Clopidogrel Bisulfate (Plavix) 75 mg PO DAILY [facility] Last Admin: 10/02/19 07:56 Dose: 75 mg Documented by: Doxycycline Monohydrate (Doxycycline) 100 mg PO BID [facility] Stop: 10/05/19 22:00 Last Admin: 10/02/19 07:57 Dose: 100 mg Documented by: Enoxaparin Sodium (Lovenox) 30 mg SC DAILY [facility] Last Admin: 10/02/19 07:58 Dose: 30 mg Documented by: Ergocalciferol (Vitamin D) 50,000 unit PO WE [facility] Last Admin: 10/02/19 07:56 Dose: 50,000 unit Documented by: Furosemide (Lasix) 80 mg PO BID@1000,1800 [facility] Last Admin: 10/02/19 07:58 Dose: 80 mg Documented by: Gabapentin (Neurontin) 100 mg PO QHS [facility] Last Admin: 10/01/19 22:09 Dose: 100 mg Documented by: Glucagon () 1 mg IM .X1 PRN PRN Reason: Hypoglycemia Sodium Chloride () 250 mls @ 15 mls/hr IV .[id number] PRN PRN Reason: Saline Flush Sodium Chloride () 250 mls @ 15 mls/hr IV .[id number] PRN PRN Reason: Additional IVPB Infusion Insulin Glargine (Lantus (Bkc)) 22 units SC QHS [facility] Last Admin: 10/01/19 22:10 Dose: 22 u Documented by: Insulin Human Lispro (Humalog Kwikpen (Bkc)) 0 unit SC ACHS [facility]; Protocol Last Admin: 10/02/19 11:32 Dose: 1 units Documented by: Insulin Human Lispro (Humalog Kwikpen (Bkc)) 3 unit SC TIDCM [facility]; Protocol Last Admin: 10/02/19 11:30 Dose: 3 units Documented by: Loratadine (Claritin) 10 mg PO DAILY PRN PRN Reason: ALLERGIES Melatonin (Melatonin) 10 mg PO QHS PRN PRN Reason: INSOMNIA Last Admin: 10/01/19 22:09 Dose: 10 mg Documented by: Metoprolol Succinate (Toprol Xl (Beta Kristy)) 25 mg PO DAILY [facility] Last Admin: 10/02/19 07:57 Dose: 25 mg Documented by: Neomycin/Polymyxin/Bacitracin (Neosporin) 1 applic TOPICAL DAILY [facility]; Protocol Last Admin: 10/02/19 07:58 Dose: 1 applicatio Documented by: [id number] Ethyl Esters (Lovaza) 2 gm PO DAILY [facility] Last Admin: 10/02/19 07:56 Dose: 2 gm Documented by: Oxycodone HCl (Oxyir) 5 mg PO Q6H PRN PRN PRN Reason: Pain Score 6-10/10 Last Admin: 10/02/19 09:05 Dose: 5 mg Documented by: Potassium Chloride (K-Dur) 20 meq PO BID [facility] Last Admin: 10/02/19 07:56 Dose: 20 meq Documented by: Prochlorperazine Edisylate (Compazine Iv) 5 mg IV Q4H PRN PRN PRN Reason: NAUSEA/VOMITING Last Admin: 09/28/19 19:29 Dose: 5 mg Documented by: Sertraline HCl (Zoloft) 50 mg PO DAILY [facility] Last Admin: 10/02/19 07:56 Dose: 50 mg Documented by: Sodium Chloride () 10 - 40 ml IV UD PRN PRN Reason: SALINE FLUSH Last Admin: 09/30/19 13:00 Dose: 10 ml Documented by: Triamcinolone Acetonide (Triamcinolone Acetonide) 1 applic TOPICAL DAILY [facility] Last Admin: 10/02/19 07:59 Dose: 1 applicatio Documented by: Medical Necessity - Tobacco Use Smoking Status: Former smoker Assessment/Plan All Active Problems (Last Reviewed 09/28/19 @ 07:[address] Kerwin Brizuela MD) CHF exacerbation (Acute) History of coronary artery stent placement (Resolved 05/18/18) Acute on chronic combined systolic (congestive) and diastolic (congestive) heart failure (Acute) Acute exacerbation of CHF (congestive heart failure) (Resolved) COPD exacerbation (Resolved) Chronic ulcer of buttock (Resolved) Flash pulmonary edema (Resolved) 1. Acute on chronic mixed CHF, complicated by pulmonary HTN, severe MVI 4+, 2+ TVI - 4 lb weight loss overnight. off o2. still some LE edema. Continue lasix. Follow up with cardiology as o/p. 2. Elevated trop 2/2 above - no EKG changes, no CP. Suspect 2/2 Acute CHF and renal dz. Hx CAD. Continue aspirin, statin, plavix, metoprolol. 3. CKDIII - stable - trend 4. Hematoma left foot - discussed with Dr. Laird, continue doxy until follow up as o/p next week. Wound healing complicated by PAD. 5. T2DM - Lantus, TID insulin, + SSI, titrate to response. 6. Anx/depresion - buspar, zoloft 7. PAD - per JOANA studies done. follow up with podiatry as o/p. DVT ppx: lovenox DC planning: precert pending for snf. This patient was seen by Binh Hong PA-C under the supervision of Dr. Amos. <Jada Amos - Last Filed: 10/02/19 14:17> Vitals/I&O's: Vital Signs Temp Pulse Resp BP Pulse Ox 98.1 F 85 16 123/75 H 94 10/02/19 07:51 10/02/19 13:30 10/02/19 13:30 10/02/19 07:51 10/02/19 07:51 Oxygen Flow Rate (L/min) 2 Oxygen Delivery Method Room Air Weight: 186 lb 1.122 oz Body Mass Index (BMI) 36.9 Intake and Output for Last 24 Hours 09/30/19 10/01/19 10/02/19 23:59 23:59 23:59 Intake Total 120 / 360 1235.62 / 1235.62 120 / 120 Output Total 400 / 900 500 / 500 Balance -280 / -540 735.62 / 735.62 120 / 120 Laboratory Results 10/01/19 17:05: POC Glucose 189 H 10/01/19 22:07: POC Glucose 189 H 10/02/19 04:34: Sodium 139, Potassium 3.9, Chloride 107, Carbon Dioxide 25.0, Anion Gap 7, BUN 45 H, Creatinine 2.17 H, Estim Creat Clear Calc 35.36, Est GFR (MDRD) Af Amer 29 L, Est GFR (MDRD) Non-Af 24 L, BUN/Creatinine Ratio 20.7 H, Glucose 182 H, Calcium 8.3 L 10/02/19 07:54: POC Glucose 180 H 10/02/19 11:29: POC Glucose 173 H Current Medications Acetaminophen (Tylenol) 650 mg PO Q6H PRN PRN PRN Reason: Pain Score 1-10/Temp > 100.7 F Last Admin: 09/28/19 10:51 Dose: 650 mg Documented by: Albuterol/Ipratropium (Duoneb) 3 ml INHALATION Q6HWA.RT [facility] Last Admin: 10/02/19 13:30 Dose: 3 ml Documented by: Aspirin (Aspirin, Baby) 81 mg PO DAILY@0800 [facility] Last Admin: 10/02/19 07:55 Dose: 81 mg Documented by: Atorvastatin Calcium (Lipitor) 40 mg PO QHS [facility] Last Admin: 10/01/19 22:09 Dose: 40 mg Documented by: Buspirone HCl (Buspar) 20 mg PO TID [facility] Last Admin: 10/02/19 05:29 Dose: 20 mg Documented by: Calcium Carbonate (Tums) 1,000 mg PO BID PRN PRN PRN Reason: INDIGESTION Clopidogrel Bisulfate (Plavix) 75 mg PO DAILY [facility] Last Admin: 10/02/19 07:56 Dose: 75 mg Documented by: Doxycycline Monohydrate (Doxycycline) 100 mg PO BID [facility] Stop: 10/05/19 22:00 Last Admin: 10/02/19 07:57 Dose: 100 mg Documented by: Enoxaparin Sodium (Lovenox) 30 mg SC DAILY [facility] Last Admin: 10/02/19 07:58 Dose: 30 mg Documented by: Ergocalciferol (Vitamin D) 50,000 unit PO WE [facility] Last Admin: 10/02/19 07:56 Dose: 50,000 unit Documented by: Furosemide (Lasix) 80 mg PO BID@1000,1800 [facility] Last Admin: 10/02/19 07:58 Dose: 80 mg Documented by: Gabapentin (Neurontin) 100 mg PO QHS [facility] Last Admin: 10/01/19 22:09 Dose: 100 mg Documented by: Glucagon () 1 mg IM .X1 PRN PRN Reason: Hypoglycemia Sodium Chloride () 250 mls @ 15 mls/hr IV .[id number] PRN PRN Reason: Saline Flush Sodium Chloride () 250 mls @ 15 mls/hr IV .[id number] PRN PRN Reason: Additional IVPB Infusion Insulin Glargine (Lantus (Bkc)) 22 units SC QHS [facility] Last Admin: 10/01/19 22:10 Dose: 22 u Documented by: Insulin Human Lispro (Humalog Kwikpen (Bkc)) 0 unit SC ACHS [facility]; Protocol Last Admin: 10/02/19 11:32 Dose: 1 units Documented by: Insulin Human Lispro (Humalog Kwikpen (Bkc)) 3 unit SC TIDCM [facility]; Protocol Last Admin: 10/02/19 11:30 Dose: 3 units Documented by: Loratadine (Claritin) 10 mg PO DAILY PRN PRN Reason: ALLERGIES Melatonin (Melatonin) 10 mg PO QHS PRN PRN Reason: INSOMNIA Last Admin: 10/01/19 22:09 Dose: 10 mg Documented by: Metoprolol Succinate (Toprol Xl (Beta Kristy)) 25 mg PO DAILY [facility] Last Admin: 10/02/19 07:57 Dose: 25 mg Documented by: Neomycin/Polymyxin/Bacitracin (Neosporin) 1 applic TOPICAL DAILY [facility]; Protocol Last Admin: 10/02/19 07:58 Dose: 1 applicatio Documented by: [id number] Ethyl Esters (Lovaza) 2 gm PO DAILY [facility] Last Admin: 10/02/19 07:56 Dose: 2 gm Documented by: Oxycodone HCl (Oxyir) 5 mg PO Q6H PRN PRN PRN Reason: Pain Score 6-10/10 Last Admin: 10/02/19 09:05 Dose: 5 mg Documented by: Potassium Chloride (K-Dur) 20 meq PO BID [facility] Last Admin: 10/02/19 07:56 Dose: 20 meq Documented by: Prochlorperazine Edisylate (Compazine Iv) 5 mg IV Q4H PRN PRN PRN Reason: NAUSEA/VOMITING Last Admin: 09/28/19 19:29 Dose: 5 mg Documented by: Sertraline HCl (Zoloft) 50 mg PO DAILY [facility] Last Admin: 10/02/19 07:56 Dose: 50 mg Documented by: Sodium Chloride () 10 - 40 ml IV UD PRN PRN Reason: SALINE FLUSH Last Admin: 09/30/19 13:00 Dose: 10 ml Documented by: Triamcinolone Acetonide (Triamcinolone Acetonide) 1 applic TOPICAL DAILY [facility] Last Admin: 10/02/19 07:59 Dose: 1 applicatio Documented by: STROKE Vital Signs/Narrative: Vital Signs Pulse Resp 10/02/19 13:30 85 16 Assessment/Plan Patient seen and examined. She has no complaints today and feels well. She was on room air. Review of systems otherwise negative. o/e: Vital Signs Temp Pulse Resp BP Pulse Ox 98.1 F 85 16 123/75 H 94 10/02/19 07:51 10/02/19 13:30 10/02/19 13:30 10/02/19 07:51 10/02/19 07:51 General: Alert, Oriented x3, Cooperative, No apparent distress HEENT: Atraumatic, PERRLA, EOMI, Normocephalic Oral: Moist Mucosa Neck: Supple, No JVD, Negative Carotid Bruits Lungs: - - mildly decreased breath sounds bibasally. no wheezes or crackles. on room air Cardiovascular: Regular rate, Regular Rhythm, Normal S1, Normal S2, No murmurs Abdomen: Bowel Sounds Present, Soft, Non Tender, Non-Distended, No Hepato- splenomegaly Extremities: No clubbing, No cyanosis, Edema - 1+ bipedal pitting edema Skin: No rashes, No breakdown, - -left foot bandaged. Musculoskeletal: No Tenderness to Palpation of Joints or Extremities Lymphatic: No Cervical, Supraclavicular, or Inguinal Adenopathy Neurological: Cranial nerves II-XII grossly intact, Neuro grossly intact, Motor Exam 5/5 strength throughout Psych/Mental Status: Normal Affect, Appropriate, Alert and oriented to time, place, person, mood and affect She currently on p.o. Lasix. On doxycycline for her broken left toe nail. Follow-up with vascular surgeon outpatient basis. Awaiting pre-CERT to go to the senior care. Rest as per Binh Hong PA-C's notes which I reviewed and endorsed. Inpatient E&M: 23010 Subs Hosp L2
--- NOTE | 2019-10-02 12:44 | CASEMGMT ---
JAX called [facility] to see if they have heard anything from insurance. JAX spoke with Ketty and she has not heard anything yet. Shanique CONNOR MSW
--- NOTE | 2019-10-02 14:27 | CASEMGMT ---
JAX received a call from [facility] and insurance approved patient. JAX notified patient, RN, corporate secretary, and STEAM TABLE ATTENDANT. Patient gave JAX permission to contact her son to see if he can transport her to [facility]. Per RN patient does not need O2. JAX called patient's son Williams and let him know patient is going to go to [facility] today. JAX asked him if he would be able to transport patient and he said he could. JAX told him someone would call and let him know when he can come pick her up. JAX completed convalescent on HENS. AZIZA Hong was notified. Await orders Shanique CONNOR MSW
--- NOTE | 2019-10-02 14:35 | PCM.PN.SRG ---
Subjective: patient is seen this afternoon for follow-up left 2nd toe. patient denies any pain. she denies any drainage. she has no other pedal complaints. Objective: patient is alert and orientated x 3. she does not appear in any distress left 2nd toe appears to be drying up. there is no visible bleeding. there is no purulent drainage. there are no local signs of infection. - Physical Exam Vitals/I&O's: Vital Signs Temp Pulse Resp BP Pulse Ox 98.1 F 85 16 123/75 H 94 10/02/19 07:51 10/02/19 13:30 10/02/19 13:30 10/02/19 07:51 10/02/19 07:51 Oxygen Flow Rate (L/min) 2 Oxygen Delivery Method Room Air Weight: 84.4 kg Body Mass Index (BMI) 36.9 Intake and Output for Last 24 Hours 09/30/19 10/01/19 10/02/19 23:59 23:59 23:59 Intake Total 120 / 360 1235.62 / 1235.62 120 / 120 Output Total 400 / 900 500 / 500 Balance -280 / -540 735.62 / 735.62 120 / 120 Laboratory Results 10/01/19 17:05: POC Glucose 189 H 10/01/19 22:07: POC Glucose 189 H 10/02/19 04:34: Sodium 139, Potassium 3.9, Chloride 107, Carbon Dioxide 25.0, Anion Gap 7, BUN 45 H, Creatinine 2.17 H, Estim Creat Clear Calc 35.36, Est GFR (MDRD) Af Amer 29 L, Est GFR (MDRD) Non-Af 24 L, BUN/Creatinine Ratio 20.7 H, Glucose 182 H, Calcium 8.3 L 10/02/19 07:54: POC Glucose 180 H 10/02/19 11:29: POC Glucose 173 H Current Medications Acetaminophen (Tylenol) 650 mg PO Q6H PRN PRN PRN Reason: Pain Score 1-10/Temp > 100.7 F Last Admin: 09/28/19 10:51 Dose: 650 mg Documented by: Albuterol/Ipratropium (Duoneb) 3 ml INHALATION Q6HWA.RT [facility] Last Admin: 10/02/19 13:30 Dose: 3 ml Documented by: Aspirin (Aspirin, Baby) 81 mg PO DAILY@0800 [facility] Last Admin: 10/02/19 07:55 Dose: 81 mg Documented by: Atorvastatin Calcium (Lipitor) 40 mg PO QHS [facility] Last Admin: 10/01/19 22:09 Dose: 40 mg Documented by: Buspirone HCl (Buspar) 20 mg PO TID [facility] Last Admin: 10/02/19 05:29 Dose: 20 mg Documented by: Calcium Carbonate (Tums) 1,000 mg PO BID PRN PRN PRN Reason: INDIGESTION Clopidogrel Bisulfate (Plavix) 75 mg PO DAILY [facility] Last Admin: 10/02/19 07:56 Dose: 75 mg Documented by: Doxycycline Monohydrate (Doxycycline) 100 mg PO BID [facility] Stop: 10/05/19 22:00 Last Admin: 10/02/19 07:57 Dose: 100 mg Documented by: Enoxaparin Sodium (Lovenox) 30 mg SC DAILY [facility] Last Admin: 10/02/19 07:58 Dose: 30 mg Documented by: Ergocalciferol (Vitamin D) 50,000 unit PO WE [facility] Last Admin: 10/02/19 07:56 Dose: 50,000 unit Documented by: Furosemide (Lasix) 80 mg PO BID@1000,1800 [facility] Last Admin: 10/02/19 07:58 Dose: 80 mg Documented by: Gabapentin (Neurontin) 100 mg PO QHS [facility] Last Admin: 10/01/19 22:09 Dose: 100 mg Documented by: Glucagon () 1 mg IM .X1 PRN PRN Reason: Hypoglycemia Sodium Chloride () 250 mls @ 15 mls/hr IV .[id number] PRN PRN Reason: Saline Flush Sodium Chloride () 250 mls @ 15 mls/hr IV .[id number] PRN PRN Reason: Additional IVPB Infusion Insulin Glargine (Lantus (Bkc)) 22 units SC QHS [facility] Last Admin: 10/01/19 22:10 Dose: 22 u Documented by: Insulin Human Lispro (Humalog Kwikpen (Bkc)) 0 unit SC ACHS [facility]; Protocol Last Admin: 10/02/19 11:32 Dose: 1 units Documented by: Insulin Human Lispro (Humalog Kwikpen (Bkc)) 3 unit SC TIDCM [facility]; Protocol Last Admin: 10/02/19 11:30 Dose: 3 units Documented by: Loratadine (Claritin) 10 mg PO DAILY PRN PRN Reason: ALLERGIES Melatonin (Melatonin) 10 mg PO QHS PRN PRN Reason: INSOMNIA Last Admin: 10/01/19 22:09 Dose: 10 mg Documented by: Metoprolol Succinate (Toprol Xl (Beta Kristy)) 25 mg PO DAILY [facility] Last Admin: 10/02/19 07:57 Dose: 25 mg Documented by: Neomycin/Polymyxin/Bacitracin (Neosporin) 1 applic TOPICAL DAILY [facility]; Protocol Last Admin: 10/02/19 07:58 Dose: 1 applicatio Documented by: [id number] Ethyl Esters (Lovaza) 2 gm PO DAILY [facility] Last Admin: 10/02/19 07:56 Dose: 2 gm Documented by: Oxycodone HCl (Oxyir) 5 mg PO Q6H PRN PRN PRN Reason: Pain Score 6-10/10 Last Admin: 10/02/19 09:05 Dose: 5 mg Documented by: Potassium Chloride (K-Dur) 20 meq PO BID [facility] Last Admin: 10/02/19 07:56 Dose: 20 meq Documented by: Prochlorperazine Edisylate (Compazine Iv) 5 mg IV Q4H PRN PRN PRN Reason: NAUSEA/VOMITING Last Admin: 09/28/19 19:29 Dose: 5 mg Documented by: Sertraline HCl (Zoloft) 50 mg PO DAILY [facility] Last Admin: 10/02/19 07:56 Dose: 50 mg Documented by: Sodium Chloride () 10 - 40 ml IV UD PRN PRN Reason: SALINE FLUSH Last Admin: 09/30/19 13:00 Dose: 10 ml Documented by: Triamcinolone Acetonide (Triamcinolone Acetonide) 1 applic TOPICAL DAILY [facility] Last Admin: 10/02/19 07:59 Dose: 1 applicatio Documented by: Medical Necessity - Tobacco Use Smoking Status: Former smoker Assessment/Plan All Active Problems (Last Reviewed 09/28/19 @ 07:[address] Kerwin Brizuela MD) CHF exacerbation (Acute) History of coronary artery stent placement (Resolved 05/18/18) Acute on chronic combined systolic (congestive) and diastolic (congestive) heart failure (Acute) Acute exacerbation of CHF (congestive heart failure) (Resolved) COPD exacerbation (Resolved) Chronic ulcer of buttock (Resolved) Flash pulmonary edema (Resolved) patient left 2nd toe s/p debridement appears stable. there is no signs of infection and the remaining nail present does not appear to be lifting. I have discussed possible need for removal of toenail. at this time, the toenail appears stable and will monitor. patient is not even interested in removal of toenail. I informed patient that her circulation to left lower extremity is compromised so removal of toenail could be risky and lead to nonhealing. at this time, will continue with neosporin and band aid. will continue with doxycycline. I will have her f/u in 1 week to my clinic. I informed patient that in the event she were to develop infection, she may require removal of toenail. patient understands treatment plan. nursing to continue with neosporin.
--- NOTE | 2019-10-02 15:18 | PCM.EXTCARCO ---
- Diet 10/01/19 17:17 Diet: Cardiac: Calorie-Controlled Food consistency:: Regular Is pt able to select menu?: Yes Diet Comments: 1500 ml Fluid Restriction; Low Sodium How many daily calories?: 1800 calorie - Routine Orders/Code Status Suppository Type: Dulcolax 10mg Suppository Frequency: Daily PRN O2 Frequency: PRN Keep PO Greater than or Equal to (%): 89 Routine Lab Work: CBC - 5 days, BMP - 2 days Code Status: Full Code - Wound(s) Left 2nd toe Wound Type: toe injury - Therapies Physical Therapy: Eval and Treat Occupational Therapy: Eval and Treat - Problem/Diagnosis (1) Debility Status: Acute Current Visit: Yes (2) CHF exacerbation Status: Acute Current Visit: No (3) Bilateral carotid artery stenosis Status: Chronic Comment: RCEA and L carotid 70-80% stenosis Current Visit: No (4) CVA (cerebral vascular accident) Status: Chronic Current Visit: No (5) Chronic combined systolic and diastolic CHF (congestive heart failure) Status: Chronic Current Visit: No (6) Essential (primary) hypertension Status: Chronic Current Visit: No (7) Former tobacco use Status: Chronic Current Visit: No (8) Hyperlipidemia Status: Chronic Current Visit: No (9) Non-rheumatic tricuspid valve insufficiency Status: Chronic Current Visit: No (10) Nonrheumatic mitral (valve) insufficiency Status: Chronic Current Visit: No (11) Secondary pulmonary arterial hypertension Status: Chronic Current Visit: No (12) History of coronary artery stent placement Status: Resolved Comment: PCI-JAZIEL-LAD w/ 2.0 x 30 mm and 2.5 x 34 mm Resolute Issa and PCI-JAZIEL-Mid LCx w/ Resolute Issa 2.0 x 30 mm and 2.0 x 22 mm Stent 05/18/2018 Current Visit: No (13) Acute respiratory failure with hypoxia Status: Inactive Current Visit: No (14) COPD exacerbation Status: Inactive Current Visit: No (15) PAD (peripheral artery disease) Status: Chronic Current Visit: Yes (16) Hematoma of left foot Status: Acute Current Visit: Yes - Allergies/Procedures Done in Hospital Allergies/Adverse Reactions: Allergies Penicillins Allergy (Severe, Verified 09/19/19 14:40) Swelling tolerated keflex in past with no issue fluoxetine [From Prozac] Adverse Reaction (Verified 09/28/19 04:39) NEEDS FOLLOW-UP pravastatin [From Pravachol] Adverse Reaction (Verified 09/28/19 04:39) NEEDS FOLLOW-UP Procedures: None - Type of Care/Length of Stay Estimated LOS: Convalescent Care Less Than 30 days Type of Care Needed: Skilled Rehab Potential: Fair Prognosis: Fair - Additional Orders/Day of Discharge Day of Discharge: 10/02/19 - Dietary and Speech Recommendations Dietitian Recommendations/Changes: Will liberalize pt diet to Cardiac/low cholesterol/ low sodium: 1800 Calorie controlled diet w/ fluid restriction as indicated d/t decreased intake at meals. ONS Magic cup w/ meals. - Follow Up Care Primary Care Physician: Evens Jimenez III, MD [Primary Care Provider] - Please follow up with your Primary Care Physician in: 1-2 weeks Please Follow Up With: Michael Laird DPM When: 1 week Please Follow Up With: Charles Good MD When: 3-4 weeks
--- NOTE | 2019-10-02 15:56 | PCM.DC.SUM ---
<Binh Hong - Last Filed: 10/02/19 15:56> Discharge Date and Diagnosis Date of Admission: 09/28/19 Date of Discharge: 10/02/19 - Primary Discharge Diagnosis Active and Suspected Problems (Last Reviewed 09/28/19 @ 07:[address] Kerwin Brizuela MD) Acute on chronic systolic and diastolic congestive heart failure CAD with prior stents CKD stage III Type 2 diabetes Debility (Acute) Hematoma of left foot (Acute), possibly infected PAD COPD with no exacerbation - Secondary Discharge Diagnosis Chronic Problems (Last Reviewed 09/28/19 @ 07:[address] Kerwin Brizuela MD) PAD (peripheral artery disease) (Chronic) Chronic combined systolic and diastolic CHF (congestive heart failure) (Chronic) Former tobacco use (Chronic) Bilateral carotid artery stenosis (Chronic) RCEA and L carotid 70-80% stenosis Atherosclerosis of coronary artery of [place] heart without angina pectoris (Chronic) PCI-JAZIEL-LAD w/ 2.0 x 30 mm and 2.5 x 34 mm Resolute [place] and PCI-JAZIEL-Mid LCx w/ Resolute [place] 2.0 x 30 mm and 2.0 x 22 mm Stent 05/18/2018 Non-rheumatic tricuspid valve insufficiency (Chronic) Secondary pulmonary arterial hypertension (Chronic) Nonrheumatic mitral (valve) insufficiency (Chronic) CVA (cerebral vascular accident) (Chronic) Essential (primary) hypertension (Chronic) Hyperlipidemia (Chronic) Hospital Course and Treatment Imaging Results: IMAGING/DIAGNOSTICS RAD/Chest 1 View (Portable) IMPRESSION: There is NO acute cardiopulmonary abnormality. RAD/Foot min 3 Views IMPRESSION: No definite focal destructive process of any of the bones. Stable postsurgical changes. Severe diffuse soft tissue swelling. JOANA: Interpretation Summary Moderately severe bilateral extremity arterial occlusive disease based upon ankle-brachial indices Monophasic right posterior tibial and left posterior tibial and dorsalis pedis waveforms suggest possible more severe level of disease. Right dorsalis pedis Doppler waveform biphasic Abnormal bilateral digital brachial indices Consults: [facility] - podiatry Operations: None Procedures: None Summary of Care Provided: Hospital course: The patient is a 63 year old F past medical history as above who presented to the emergency room with complaints of increasing shortness of breath and severe lower extremity edema bilaterally. Chest x-ray was clear however she did have severe lower extremity edema, elevated beta natruretic peptide, CKD stage III, and indeterminate troponin. Patient was felt to have an acute exacerbation of her underlying systolic and diastolic congestive heart failure. She had recently had an echo with an ejection fraction of 45%. Patient was admitted to the PCU and placed on telemetry, started on IV Lasix. She had no acute changes on EKG and no significant rise in her troponin, no chest pain. She did not respond quickly to twice daily Lasix, was transitioned to a Lasix drip. She responded well to this and had significant diuresis with good urinary output and weight loss. Patient was able to be weaned off oxygen. Her renal function improved while being diuresed. She was transitioned back to oral Lasix with potassium supplementation and remained stable. While she was here she was also noted to have an infected hematoma of the left toe nail, podiatry was consulted. X-ray was negative. Podiatry ordered ABIs and recommended continuing doxycycline for this. She had significant PAD on ABIs. Patient and podiatry discussed this and decided not to remove the toenail at this time and that she would likely have prolonged healing due to her severe PAD. Podiatry recommended follow-up in the office in 1 week and to continue doxycycline, will have her complete 7 days total. She had significant underlying debility and did not feel comfortable going home, we recommended [facility] at this time. She was agreeable. She was discharged [facility] in stable condition. She will need to follow-up with podiatry in 1 week, she will also need to follow-up with her own clerk carrier in 3 to 4 weeks. She will need close monitoring of her renal function given the high dose of IV Lasix and potassium supplementation that she is on. This patient was seen by Binh Hong PA-C under the supervision of Doctor Amos. [] - Physical Exam Vitals/I&O's: Vital Signs Temp Pulse Resp BP Pulse Ox 98.3 F 88 18 110/62 98 10/02/19 14:53 10/02/19 14:53 10/02/19 14:53 10/02/19 14:53 10/02/19 14:53 Oxygen Flow Rate (L/min) 2 Oxygen Delivery Method Room Air Weight: 186 lb 1.122 oz Body Mass Index (BMI) 36.9 Intake and Output for Last 24 Hours 09/30/19 10/01/19 10/02/19 23:59 23:59 23:59 Intake Total 120 / 360 1235.62 / 1235.62 480 / 480 Output Total 400 / 900 500 / 500 Balance -280 / -540 735.62 / 735.62 480 / 480 General: Alert, Oriented x3, Cooperative HEENT: Atraumatic, PERRLA, EOMI, Normocephalic Neck: Supple, No JVD, Negative Carotid Bruits Lungs: Clear to auscultation, Diminished Cardiovascular: Regular rate, No murmurs Abdomen: Bowel Sounds Present, Soft, Non Tender, Obese Extremities: No edema, Capillary Refill Less than 3 Seconds, Edema - 2+ pitting edema Skin: No rashes, No breakdown Musculoskeletal: No Tenderness to Palpation of Joints or Extremities Neurological: Cranial nerves II-XII grossly intact Psych/Mental Status: Normal Affect, Appropriate, Alert and oriented to time, place, person, mood and affect Laboratory Results 10/01/19 17:05: POC Glucose 189 H 10/01/19 22:07: POC Glucose 189 H 10/02/19 04:34: Sodium 139, Potassium 3.9, Chloride 107, Carbon Dioxide 25.0, Anion Gap 7, BUN 45 H, Creatinine 2.17 H, Estim Creat Clear Calc 35.36, Est GFR (MDRD) Af Amer 29 L, Est GFR (MDRD) Non-Af 24 L, BUN/Creatinine Ratio 20.7 H, Glucose 182 H, Calcium 8.3 L 10/02/19 07:54: POC Glucose 180 H 10/02/19 11:29: POC Glucose 173 H Current Medications Acetaminophen (Tylenol) 650 mg PO Q6H PRN PRN PRN Reason: Pain Score 1-10/Temp > 100.7 F Last Admin: 09/28/19 10:51 Dose: 650 mg Documented by: Albuterol/Ipratropium (Duoneb) 3 ml INHALATION Q6HWA.RT [facility] Last Admin: 10/02/19 13:30 Dose: 3 ml Documented by: Aspirin (Aspirin, Baby) 81 mg PO DAILY@0800 [facility] Last Admin: 10/02/19 07:55 Dose: 81 mg Documented by: Atorvastatin Calcium (Lipitor) 40 mg PO QHS [facility] Last Admin: 10/01/19 22:09 Dose: 40 mg Documented by: Buspirone HCl (Buspar) 20 mg PO TID [facility] Last Admin: 10/02/19 14:59 Dose: 20 mg Documented by: Calcium Carbonate (Tums) 1,000 mg PO BID PRN PRN PRN Reason: INDIGESTION Clopidogrel Bisulfate (Plavix) 75 mg PO DAILY [facility] Last Admin: 10/02/19 07:56 Dose: 75 mg Documented by: Doxycycline Monohydrate (Doxycycline) 100 mg PO BID [facility] Stop: 10/05/19 22:00 Last Admin: 10/02/19 07:57 Dose: 100 mg Documented by: Enoxaparin Sodium (Lovenox) 30 mg SC DAILY [facility] Last Admin: 10/02/19 07:58 Dose: 30 mg Documented by: Ergocalciferol (Vitamin D) 50,000 unit PO WE [facility] Last Admin: 10/02/19 07:56 Dose: 50,000 unit Documented by: Furosemide (Lasix) 80 mg PO BID@1000,1800 [facility] Last Admin: 10/02/19 07:58 Dose: 80 mg Documented by: Gabapentin (Neurontin) 100 mg PO QHS [facility] Last Admin: 10/01/19 22:09 Dose: 100 mg Documented by: Glucagon () 1 mg IM .X1 PRN PRN Reason: Hypoglycemia Sodium Chloride () 250 mls @ 15 mls/hr IV .[id number] PRN PRN Reason: Saline Flush Sodium Chloride () 250 mls @ 15 mls/hr IV .[id number] PRN PRN Reason: Additional IVPB Infusion Insulin Glargine (Lantus (Bkc)) 22 units SC QHS [facility] Last Admin: 10/01/19 22:10 Dose: 22 u Documented by: Insulin Human Lispro (Humalog Kwikpen (Bkc)) 0 unit SC ACHS [facility]; Protocol Last Admin: 10/02/19 11:32 Dose: 1 units Documented by: Insulin Human Lispro (Humalog Kwikpen (Bkc)) 3 unit SC TIDCM [facility]; Protocol Last Admin: 10/02/19 11:30 Dose: 3 units Documented by: Loratadine (Claritin) 10 mg PO DAILY PRN PRN Reason: ALLERGIES Melatonin (Melatonin) 10 mg PO QHS PRN PRN Reason: INSOMNIA Last Admin: 10/01/19 22:09 Dose: 10 mg Documented by: Metoprolol Succinate (Toprol Xl (Beta Kristy)) 25 mg PO DAILY [facility] Last Admin: 10/02/19 07:57 Dose: 25 mg Documented by: Neomycin/Polymyxin/Bacitracin (Neosporin) 1 applic TOPICAL DAILY [facility]; Protocol Last Admin: 10/02/19 07:58 Dose: 1 applicatio Documented by: Aokuc-6-Aesq Ethyl Esters (Lovaza) 2 gm PO DAILY [facility] Last Admin: 10/02/19 07:56 Dose: 2 gm Documented by: Oxycodone HCl (Oxyir) 5 mg PO Q6H PRN PRN PRN Reason: Pain Score 6-10/10 Last Admin: 10/02/19 14:59 Dose: 5 mg Documented by: Potassium Chloride (K-Dur) 20 meq PO BID [facility] Last Admin: 10/02/19 07:56 Dose: 20 meq Documented by: Prochlorperazine Edisylate (Compazine Iv) 5 mg IV Q4H PRN PRN PRN Reason: NAUSEA/VOMITING Last Admin: 09/28/19 19:29 Dose: 5 mg Documented by: Sertraline HCl (Zoloft) 50 mg PO DAILY [facility] Last Admin: 10/02/19 07:56 Dose: 50 mg Documented by: Sodium Chloride () 10 - 40 ml IV UD PRN PRN Reason: SALINE FLUSH Last Admin: 09/30/19 13:00 Dose: 10 ml Documented by: Triamcinolone Acetonide (Triamcinolone Acetonide) 1 applic TOPICAL DAILY [facility] Last Admin: 10/02/19 07:59 Dose: 1 applicatio Documented by: Discharge Diet: Low fat/ Low Cholesterol, 2000 mg Sodium Diet, - - 1500 cc daily fluid restriction Discharge Activity: Return to Normal Activity Home Medications: Medications to take at Discharge Insulin Lispro [Humalog KwikPen] 3 unit SQ TIDCM 12/20/17 Clopidogrel Bisulfate [Clopidogrel] 75 mg PO DAILY 05/24/18 [place]-3 Fatty Acids [[place]-3] 2,000 mg PO DAILY 05/24/18 Ergocalciferol (Vitamin D2) [Vitamin D2] 50,000 unit PO WE 06/11/18 sertraline 50 mg tablet 50 mg PO DAILY 08/17/18 Aspirin [Aspirin, Baby] 81 mg PO DAILY@0800 02/14/20 Atorvastatin Calcium [Lipitor] 40 mg PO QHS 09/19/19 Buspirone HCl 20 mg PO TID 09/19/19 Ipratropium/Albuterol Sulfate [Duoneb] 3 ml INHALATION Q6H.RT 09/19/19 Potassium Chloride [K-Dur] 20 meq PO BID 09/19/19 Albuterol Sulfate [Albuterol Sulfate HFA] 2 puff IH Q6H PRN 09/28/19 Loratadine 10 mg PO DAILY PRN 09/28/19 Metoprolol Succinate [Toprol Xl] 25 mg PO DAILY 09/28/19 Mometasone Furoate [Elocon] 1 applicatio TP DAILY 09/28/19 Acetaminophen [Tylenol Tablet] 650 mg PO Q6H PRN PRN tab 10/02/19 Calcium Carbonate [Tums] 1,000 mg PO BID PRN PRN tab 10/02/19 Doxycycline 100 mg PO BID #6 cap 10/02/19 Furosemide [Lasix] 80 mg PO BID@1000,1800 tab 10/02/19 Gabapentin [Neurontin] 100 mg PO QHS cap 10/02/19 Insulin Glargine [Lantus SoloStar Pen] 22 units SUBCUT QHS pen 10/02/19 Insulin Lispro [Humalog KwikPen] See Protocol SUBCUT ACHS insuln.pen 10/02/19 Melatonin 10 mg PO QHS PRN tab 10/02/19 Neomycin/Bacitracin/Polymyxin [Neosporin Ointment] 1 applic TOPICAL DAILY tube 10/02/19 [place]-3 Acid Ethyl Esters [Lovaza] 2 gm PO DAILY cap 10/02/19 Primary Care Physician: Evesn Jimenez III, MD [Primary Care Provider] - Please follow up with your Primary Care Physician in: 1-2 weeks Please Follow Up With: Michael Laird DPM When: 1 week Please Follow Up With: Charles Good MD When: 3-4 weeks Disposition: Residential facility Minutes spent on discharge:: 35 Patient Condition:: Stable Medical Necessity - Tobacco Use Smoking Status: Former smoker Meaningful Use Info Meaningful Use Diagnoses (Choose all that apply): CHF - CHF ALEJANDRA/ARB ordered at discharge?: No Reason ALEJANDRA/ARB not ordered?: Worsening renal disease Documented LVEF (%): 45 <Jada Amos - Last Filed: 10/02/19 17:10> Discharge Date and Diagnosis - Secondary Discharge Diagnosis Chronic Problems (Last Reviewed 09/28/19 @ 07:[address] Kerwin Brizuela MD) PAD (peripheral artery disease) (Chronic) Chronic combined systolic and diastolic CHF (congestive heart failure) (Chronic) Former tobacco use (Chronic) Bilateral carotid artery stenosis (Chronic) RCEA and L carotid 70-80% stenosis Atherosclerosis of coronary artery of [place] heart without angina pectoris (Chronic) PCI-JAZIEL-LAD w/ 2.0 x 30 mm and 2.5 x 34 mm Resolute [place] and PCI-JAZIEL-Mid LCx w/ Resolute [place] 2.0 x 30 mm and 2.0 x 22 mm Stent 05/18/2018 Non-rheumatic tricuspid valve insufficiency (Chronic) Secondary pulmonary arterial hypertension (Chronic) Nonrheumatic mitral (valve) insufficiency (Chronic) CVA (cerebral vascular accident) (Chronic) Essential (primary) hypertension (Chronic) Hyperlipidemia (Chronic) Hospital Course and Treatment Summary of Care Provided: Patient seen by Binh Hong PA-C under my supervision The patient is a 63 year old F was admitted through the ED on 09/28/2019 with a complaint of shortness of breath which resulted in her not been able to sleep. She had a start orthopnea and PND and also complained of weight gain and bilateral lower extremity swelling. BNP on admission was 4782 and chest x-ray showed cardiomegaly. She had had a 2D echo done on 07/12/2022 showed EF of 45% with stage I diastolic dysfunction and enlarged left atrium with severe eccentric mitral valve insufficiency. RVSP was 55 mmHg. She was admitted and managed for acute on chronic combined heart failure. Intake and output was closely monitored. Patient's diuresis was not sufficient so cardiology was consulted and patient was placed on Lasix drip. His shortness of breath resolved and she was weaned off of her oxygen. She remained stable and at her request wanted to go to a [facility]. Of note, patient had also complained of broken left toenail and podiatry was consulted. She had debridement of the left toe done by podiatry and she was placed on p.o. doxycycline. She remained stable and was discharged on 10/01/[address] [place] [address]. She is to follow-up with primary care doctor, cardiology and podiatry. Of note, vascular studies were done on request of podiatry and it showed that she had severe peripheral artery disease. Vascular surgery was consulted but thought that patient was nonamenable for any further vascular surgery work-up. Patient seen and examined prior to discharge. She had no complaints. Review of symptoms otherwise negative. Labs and vitals reviewed. Home medication reviewed and reconciled. o/e: Vital Signs Temp Pulse Resp BP Pulse Ox 98.3 F 88 18 110/62 98 10/02/19 14:53 10/02/19 14:53 10/02/19 14:53 10/02/19 14:53 10/02/19 14:53 [] General: Alert, Oriented x3, Cooperative, No apparent distress HEENT: Atraumatic, PERRLA, EOMI, Normocephalic Oral: Moist Mucosa Neck: Supple, No JVD, Negative Carotid Bruits Lungs: - - mildly decreased breath sounds bibasally. no wheezes or crackles. on room air Cardiovascular: Regular rate, Regular Rhythm, Normal S1, Normal S2, No murmurs Abdomen: Bowel Sounds Present, Soft, Non Tender, Non-Distended, No Hepato-splenomegaly Extremities: No clubbing, No cyanosis, Edema - 1+ bipedal pitting edema Skin: No rashes, No breakdown, - -left foot bandaged. Musculoskeletal: No Tenderness to Palpation of Joints or Extremities Lymphatic: No Cervical, Supraclavicular, or Inguinal Adenopathy Neurological: Cranial nerves II-XII grossly intact, Neuro grossly intact, Motor Exam 5/5 strength throughout Psych/Mental Status: Normal Affect, Appropriate, Alert and oriented to time, place, person, mood and affect Plan as above. Rest as per Binh Hong PA-C's noet, which I have reviewed and endorsed. - Physical Exam Vitals/I&O's: Vital Signs Temp Pulse Resp BP Pulse Ox 98.3 F 88 18 110/62 98 10/02/19 14:53 10/02/19 14:53 10/02/19 14:53 10/02/19 14:53 10/02/19 14:53 Oxygen Flow Rate (L/min) 2 Oxygen Delivery Method Room Air Weight: 186 lb 1.122 oz Body Mass Index (BMI) 36.9 Intake and Output for Last 24 Hours 09/30/19 10/01/19 10/02/19 23:59 23:59 23:59 Intake Total 120 / 360 1235.62 / 1235.62 480 / 480 Output Total 400 / 900 500 / 500 Balance -280 / -540 735.62 / 735.62 480 / 480 Laboratory Results 10/01/19 17:05: POC Glucose 189 H 10/01/19 22:07: POC Glucose 189 H 10/02/19 04:34: Sodium 139, Potassium 3.9, Chloride 107, Carbon Dioxide 25.0, Anion Gap 7, BUN 45 H, Creatinine 2.17 H, Estim Creat Clear Calc 35.36, Est GFR (MDRD) Af Amer 29 L, Est GFR (MDRD) Non-Af 24 L, BUN/Creatinine Ratio 20.7 H, Glucose 182 H, Calcium 8.3 L 10/02/19 07:54: POC Glucose 180 H 10/02/19 11:29: POC Glucose 173 H Inpatient E&M: [id number] Disch Hosp
== END 2019-10-02 16:15 | disposition skilled nursing facility (03) | DRG 194 ==
LOC: ED 05:07 → PCU 06:54
PROVIDERS: Physician Assistant; Admitting Provider Hospitalist; Emergency Provider Emergency Medicine; PCP Family Medicine; Visit Provider Student in an Organized Health Care Education/Training Program
DX: I13.0 Hypertensive heart and chronic kidney disease with heart failure and stage 1 through stage 4 chronic kidney disease, or unspecified chronic kidney disease (principal); E11.22 Type 2 diabetes mellitus with diabetic chronic kidney disease; N18.3 Chronic kidney disease, stage 3 (moderate); S90.122A Contusion of left lesser toe(s) without damage to nail, initial encounter; S91.205A Unspecified open wound of left lesser toe(s) with damage to nail, initial encounter; L08.9 Local infection of the skin and subcutaneous tissue, unspecified; X58.XXXA Exposure to other specified factors, initial encounter; E11.65 Type 2 diabetes mellitus with hyperglycemia; E11.40 Type 2 diabetes mellitus with diabetic neuropathy, unspecified; I50.43 Acute on chronic combined systolic (congestive) and diastolic (congestive) heart failure; I25.10 Atherosclerotic heart disease of native coronary artery without angina pectoris; E11.51 Type 2 diabetes mellitus with diabetic peripheral angiopathy without gangrene; J44.9 Chronic obstructive pulmonary disease, unspecified; R53.81 Other malaise; I65.23 Occlusion and stenosis of bilateral carotid arteries; I36.1 Nonrheumatic tricuspid (valve) insufficiency; I34.0 Nonrheumatic mitral (valve) insufficiency; I27.21 Secondary pulmonary arterial hypertension; E78.5 Hyperlipidemia, unspecified; F32.9 Major depressive disorder, single episode, unspecified; F41.9 Anxiety disorder, unspecified; Z89.422 Acquired absence of other left toe(s); Z95.5 Presence of coronary angioplasty implant and graft; Z79.82 Long term (current) use of aspirin; Z79.02 Long term (current) use of antithrombotics/antiplatelets; Z79.4 Long term (current) use of insulin; Z79.899 Other long term (current) drug therapy; Z87.891 Personal history of nicotine dependence; Z86.73 Personal history of transient ischemic attack (TIA), and cerebral infarction without residual deficits
CPT/HCPCS: 36415; 71045; 73630; 80048; 82962; 83880; 84484; 85025; 93005; 93922; 94640; 96374; 96375; 97110; 97162; 97165; 97530; 97802; 99285; A4216; J1940

== ENCOUNTER 2020-01-21 07:49 | Inpatient (IN) | payer MEDICAID, SELFPAY ==
[2019-12-18 12:42] VITALS: BMI 38.0
[2020-01-21] VITALS (11 sets, daily range): BP systolic 101–157; BP diastolic 68–84; PULSE 74–94; RESP 14–22; TEMP 36.6–36.9; O2SAT 98–100; BMI 34.1; BMI 33.6; BMI 33.7
--- NOTE | 2020-01-21 07:57 | EKG12_ITS ---
Test Reason : SOB Blood Pressure : / mmHG Vent. Rate : 091 BPM Atrial Rate : 091 BPM P-R Int : 154 ms QRS Dur : 094 ms QT Int : 376 ms P-R-T Axes : 066 -37 128 degrees QTc Int : 462 ms Normal sinus rhythm Left axis deviation Inferior infarct (cited on or before 29-JUN-2019) Anteroseptal infarct (cited on or before 29-JUN-2019) ST & T wave abnormality, consider lateral ischemia Abnormal ECG Confirmed by NILSON HILL ([id number]), video editor MARIJA ELKINS ([id number]) on 01/23/2020 9:03:42 AM Referred By: ARIANA Confirmed By:NILSON HILL
--- NOTE | 2020-01-21 07:57 | RAD_ITS ---
STUDY: X-RAY CHEST REASON FOR EXAM: Female, 64 years old. D/C FROM [facility] YESTERDAY. HOME O2 NOT DELIVERED TIMELY. RA SAT 85% PER [facility]. TECHNIQUE: Single AP portable view of the chest. COMPARISON: Comparison is made with prior study dated 09/28/2019. FINDINGS: The seventh of mild degree of vascular congestion in keeping with mild CHF. There is no demonstrated pleural abnormality. There is moderate cardiac enlargement. Normal mediastinum and tom. Normal visualized pulmonary arteries. There is atherosclerotic tortuosity of the aortic arch and descending thoracic aorta. There are diffuse degenerative changes of the visualized thoracic spine. Normal visualized ribs, clavicles, and shoulders. There is no demonstrated abnormality of the visualized soft tissue structures of the upper abdomen. RAD/Chest 1 View (Portable) IMPRESSION: Cardiomegaly and mild degree of CHF. Electronically Signed: Veto Giordano, at 9:02 EDT , Service support ,
--- NOTE | 2020-01-21 07:58 | ED.DCSUM_ITS ---
History of Present Illness Chief Complaint: Shortness of Breath Informant: Patient Narrative: Patient is a 64-year-old female with a past medical history of COPD, CAD who presents to the ED for shortness of breath. [facility] She was supposed to be discharged home with supplemental oxygen but has not arrived yet. She woke with shortness of breath this morning. She checked a pulse ox and it was in the mid 80s. No chest pain associated with this. Since starting oxygen by the paramedics she has been feeling better. She denies ever wearing oxygen before. She did quit smoking 3 years ago. She does have bilateral peripheral edema which are at their baseline. Denies any recent illnesses including any cough, cold, congestion. No fevers or chills. No nausea/vomiting or diarrhea. No urinary symptoms. Denies any back pain or abdominal pain. Past Medical History - Allergies and Home Meds Allergies/Adverse Reactions: Allergies Penicillins Allergy (Severe, Verified 01/21/20 07:53) Swelling tolerated keflex in past with no issue fluoxetine [From Prozac] Adverse Reaction (Verified 01/21/20 07:53) NEEDS FOLLOW-UP pravastatin [From Pravachol] Adverse Reaction (Verified 01/21/20 07:53) NEEDS FOLLOW-UP Past Medical History: - - CHF, hypertension, hyperlipidemia, COPD, pulmonary artery hypertension, CAD Surgical History: - - R CEA, L 5th toe amputation, PCI, T+A. Smoking Status: Former smoker - Family History Maternal Family History: Family History (Last Reviewed 12/18/19 @ 15:[address] Charles Good MD) Mother No problems noted. Family History: Reports: High Cholesterol, Heart Disease, Hypertension, Stroke, - - Patient's mother in her 40s from a cerebrovascular accident. Paternal Family History: Family History (Last Reviewed 12/18/19 @ 15:[address] Charles Good MD) Mother No problems noted. Family History: Reports: High Cholesterol, Heart Disease, Hypertension, - - Patient's father in his 40s from myocardial infarction. Review of Systems All systems negative except as indicated General: Denies: Chills, Fever, Sweats Eyes: Denies: Visual changes - bilaterally, Diplopia ENT: Denies: Rhinorrhea, Sore throat Cardiovascular: Denies: Chest pain, Palpitations Respiratory: Reports: Dyspnea, Dyspnea on exertion. Denies: Cough, Sputum Gastrointestinal: Denies: Abdominal pain, Nausea, Vomiting, Diarrhea, Melena, Hematochezia Genitourinary: Denies: Dysuria, Hematuria, Frequency Musculoskeletal: Reports: Swelling. Denies: Back pain, Extremity Pain Skin: Denies: Rash, Wounds Neurological: Denies: Headache, Weakness, Numbness Physical Exam Vital Signs/Narrative: Vital Signs Temp Pulse Resp BP Pulse Ox 01/21/20 07:50 98.3 F 94 22 H 155/68 H 100 General: Well nourished, Well developed, No Acute Distress Head: Normocephalic, Atraumatic Eyes: Perrl, EOMI ENT: Moist mucous membranes, No rhinorrhea Neck: Supple, Nontender Cardiovascular: Regular rate, Regular rhythm, No murmurs Respiratory: No distress, CTA bilaterally, Chest nontender, - - Mildly tachypneic Abdomen: Soft, Nontender, Nondistended, Normal bowel sounds Back: Nontender, Normal Inspection Extremities: Nontender, Edema - 1+ pitting edema bilateral.. Negative for: Calf Tenderness Skin: Normal color, No rash Neurological: Alert, Oriented x3, Cranial nerves II-XII grossly intact, Normal Strength, Normal Sensation Psychological: Normal affect, Normal Mood Diagnostic/Tx/Re-eval - EKG Initial EKG Interpretation: - - Rate of 91 bpm and normal sinus rhythm. Left axis deviation. Normal intervals. No significant ST elevations appreciated. T wave inversion in lead I and aVL. Prior EKG for comparison was performed on September 272019 which is similar in appearance. - Medical Decision Making Patient presents to the ED for shortness of breath. Supplemental oxygen has helped relieve her symptoms. She was supposed to be [facility] home from the [facility] on supplemental oxygen but has not arrived yet. Will check basic lab work, EKG and chest x-ray in the meantime. She did desaturate to 85% and return to mid 90s on supplemental oxygen. EKG did not show any signs of ischemia. Her BNP was greater than 5000 with pulmonary vascular congestion seen on the x-ray. I do not feel patient safe to go home at this time and will bring to the hospital for further evaluation and management. She is given a dose of Lasix here in the ED. Rest of her lab work appears to be at baseline with her anemia and creatinine. Initial troponin within normal limits. Patient otherwise has been stable throughout ED stay. She understands and is agreeable this plan. ED Disposition - Plan for ED Patient: Disposition: Acute Care Hospital [facility] Diagnosis: Acute exacerbation of CHF (congestive heart failure), Hypoxia, Dyspnea
--- NOTE | 2020-01-21 08:05 | ED.RN ---
called [facility] about pts home o2. per them she should have had o2 delivered from [facility]. [facility] opens at 9am I will call them at that point to see when o2 will be delivered. [facility] was made aware that she went home without o2 and dropped to 85% without it.
[2020-01-21 09:04] LABS: Absolute Lymphocyte Count 0.96 X10^3/uL (0.83-4.51); Absolute Neutrophil Count 6.6 X10^3/uL (2.0-7.7); Basophil# 0.04 X10^3/uL; Basophil% 0.4 % (0-1); Eosinophil# 0.94 X10^3/uL; Eosinophils% 10.3 % (0-5); Hematocrit 31.9 % (37-47); Hemoglobin 9.5 g/dL (12.0-15.0); Lymphocyte # 0.96 X10^3/ul (4.0); Lymphocyte % 10.5 % (19-41); Mean Corp Hgb Conc 29.8 g/dL (32-36); Mean Corpuscular Hgb 22.8 pg (27.0-32.0); Mean Corpuscular Volume 76.5 fL (81-99); Mean Platelet Vol. 9.7 fl (6.2-12.0); Monocyte% 6.6 % (0-10); NRBC Flagged by Analyzer 0 % (0-5); Neutrophil # 6.56 X10^3/uL (2.7-7.7); Neutrophil % 71.9 % (47-70); POSITIVE MORPHOLOGY YES; Platelet Count 301 K/mm3 (150-450); RBC Distribution Width CV 21.2 % (11.6-14.6); RBC Distribution Width SD 57.3 fl (35.1-43.9); Red Blood Count 4.17 M/mm3 (4.2-5.4); White Blood Count 9.1 K/mm3 (4.4-11.0)
[2020-01-21 09:17] LABS: Anion Gap 8 (5-15); BUN 23 mg/dL (7-18); BUN/Creat Ratio 13.2 RATIO (10-20); Calcium,Total 8.7 mg/dL (8.5-10.1); Chloride 103 mmol/L (98-107); Creatinine, Serum 1.74 mg/dL (0.55-1.02); EST Glomerular Filtration Rate 31 mL/min (>60); Est Glom Filt Rate - Afr Amer 38 mL/min (>60); Estimated Creatinine Clearance 23.46 ml/min; Glucose 151 mg/dL (74-106); Magnesium 2.2 mg/dL (1.6-2.6); Potassium 3.8 mmol/L (3.5-5.1); Sodium Level 139 mmol/L (136-145)
[2020-01-21 09:31] LABS: Anisocytosis 2+; Differential Indicated SCAN CRITERIA MET; Microcytosis 1+; Ovalocyte 1+; Poikilocytosis 1+; Red Cell Morphology N CHROM NORMAL (NORM C&C)
[2020-01-21 09:35] LABS: BNP,B-Type NATRIURETIC PEPTIDE > 5000.0 pg/mL (0-100)
--- NOTE | 2020-01-21 10:11 | NURSING ---
RICHELLE PANDEY [facility]
--- NOTE | 2020-01-21 10:19 | HP.PCM_ITS ---
Problem List (1) Dyspnea on exertion Status: Acute (2) Orthopnea Status: Acute (3) Atherosclerosis of coronary artery of [place] heart without angina pectoris Status: Chronic Qualifiers: Coronary Disease-Associated Artery/Lesion type: unspecified vessel or lesion type Qualified Code(s): I25.10 - Atherosclerotic heart disease of [place] coronary artery without angina pectoris (4) History of coronary artery stent placement Status: Resolved Comment: PCI-JAZIEL-LAD w/ 2.0 x 30 mm and 2.5 x 34 mm Resolute Issa and PCI-JAZIEL-Mid LCx w/ Resolute Issa 2.0 x 30 mm and 2.0 x 22 mm Stent 05/18/2018 (5) Chronic combined systolic and diastolic CHF (congestive heart failure) Status: Chronic (6) Bilateral carotid artery stenosis Status: Chronic Comment: RCEA and L carotid 70-80% stenosis (7) Non-rheumatic tricuspid valve insufficiency Status: Chronic (8) Nonrheumatic mitral (valve) insufficiency Status: Chronic (9) Secondary pulmonary arterial hypertension Status: Chronic (10) Essential (primary) hypertension Status: Chronic (11) Hyperlipidemia Status: Chronic Qualifiers: Hyperlipidemia type: unspecified Qualified Code(s): E78.5 - Hyperlipidemia, unspecified (12) CVA (cerebral vascular accident) Status: Chronic Qualifiers: CVA mechanism: unspecified Qualified Code(s): I63.9 - Cerebral infarction, unspecified (13) PAD (peripheral artery disease) Status: Chronic (14) Debility Status: Chronic (15) Acute on chronic systolic CHF (congestive heart failure) Status: Chronic History of Present Illness Date of Admission: 01/21/20 Chief Complaint: Difficulty breathing The patient is a 64 year old F past medical history single for congestive heart failure with decreased ejection fraction who presented with shortness of breath. Patient was apparently from standard care facility to home on 01/20/2020. Patient was supposed to have an oxygen tank delivered however she woke up on the morning of her presentation with significant difficulty breathing. She also noticed increasing weight gain as well as bipedal edema. She did call the EMS squad who upon arrival found patient to be hypoxic with oxygen saturation around 85. Patient was placed on supplemental oxygen and transferred to the ED work-up in the ED was consistent with heart failure admitted to monitored bed for further management Past Medical History Past Medical History (Chronic Problems): Chronic Problems (Last Reviewed 01/21/20 @ 10:[address] Jacob Byrd MD) Acute on chronic systolic CHF (congestive heart failure) (Chronic) Atherosclerosis of coronary artery of [place] heart without angina pectoris (Chronic) Chronic combined systolic and diastolic CHF (congestive heart failure) (Chronic) Bilateral carotid artery stenosis (Chronic) RCEA and L carotid 70-80% stenosis Non-rheumatic tricuspid valve insufficiency (Chronic) Nonrheumatic mitral (valve) insufficiency (Chronic) Secondary pulmonary arterial hypertension (Chronic) Essential (primary) hypertension (Chronic) Hyperlipidemia (Chronic) CVA (cerebral vascular accident) (Chronic) PAD (peripheral artery disease) (Chronic) Debility (Chronic) Medical History: Medical History (Last Reviewed 01/21/20 @ 10:[address] Jacob Byrd MD) Atherosclerosis of coronary artery of [place] heart without angina pectoris (Chronic) I25.10 Chronic combined systolic and diastolic CHF (congestive heart failure) (Chronic) I50.42 Bilateral carotid artery stenosis (Chronic) I65.23 RCEA and L carotid 70-80% stenosis Non-rheumatic tricuspid valve insufficiency (Chronic) I36.1 Nonrheumatic mitral (valve) insufficiency (Chronic) I34.0 Secondary pulmonary arterial hypertension (Chronic) I27.21 Essential (primary) hypertension (Chronic) I10 Hyperlipidemia (Chronic) E78.5 CVA (cerebral vascular accident) (Chronic) I63.9 PAD (peripheral artery disease) (Chronic) I73.9 Debility (Chronic) R53.81 Asthma J45.909 COPD (chronic obstructive pulmonary disease) J44.9 Chronic back pain M54.9, G89.29 Depression F32.9 Former tobacco use Z87.891 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 Type 2 diabetes mellitus E11.9 Acute on chronic combined systolic (congestive) and diastolic (congestive) heart failure (Resolved) I50.43 Hematoma of left foot S90.32XA Nicotine dependence F17.200 Allergies Penicillins Allergy (Severe, Verified 01/21/20 07:53) Swelling tolerated keflex in past with no issue fluoxetine [From Prozac] Adverse Reaction (Verified 01/21/20 07:53) NEEDS FOLLOW-UP pravastatin [From Pravachol] Adverse Reaction (Verified 01/21/20 07:53) NEEDS FOLLOW-UP Home Medications: Ambulatory Orders Medication Instructions Recorded Insulin Lispro [Humalog KwikPen] 3 unit SQ TIDCM 12/20/17 Clopidogrel Bisulfate [Clopidogrel] 75 mg PO DAILY 05/24/18 [place]-3 Fatty Acids [[place]-3] 2,000 mg PO DAILY 05/24/18 Ergocalciferol (Vitamin D2) 50,000 unit PO WE 06/11/18 [Vitamin D2] sertraline 50 mg tablet 50 mg PO DAILY 08/17/18 Aspirin [Aspirin, Baby] 81 mg PO DAILY@0800 07/12/19 Atorvastatin Calcium [Lipitor] 40 mg PO QHS 09/19/19 Buspirone HCl 20 mg PO TID 09/19/19 Ipratropium/Albuterol Sulfate 3 ml INHALATION Q6H.RT 09/19/19 [Duoneb] Albuterol Sulfate [Albuterol 2 puff IH Q6H PRN 09/28/19 Sulfate HFA] Loratadine 10 mg PO DAILY PRN 09/28/19 Metoprolol Succinate [Toprol Xl] 25 mg PO DAILY 09/28/19 Mometasone Furoate [Elocon] 1 applicatio TP DAILY 09/28/19 Acetaminophen [Tylenol Tablet] 650 mg PO Q6H PRN PRN tab 10/02/19 Calcium Carbonate [Tums] 1,000 mg PO BID PRN PRN tab 10/02/19 Doxycycline 100 mg PO BID #6 cap 10/02/19 Gabapentin [Neurontin] 100 mg PO QHS cap 10/02/19 Insulin Glargine [Lantus SoloStar 22 units SUBCUT QHS pen 10/02/19 Pen] Insulin Lispro [Humalog KwikPen] See Protocol SUBCUT ACHS 10/02/19 insuln.pen Melatonin 10 mg PO QHS PRN tab 10/02/19 Neomycin/Bacitracin/Polymyxin 1 applic TOPICAL DAILY tube 10/02/19 [Neosporin Ointment] [place]-3 Acid Ethyl Esters [Lovaza] 2 gm PO DAILY cap 10/02/19 furosemide 20 mg tablet 20 mg PO TID #100 tab 12/18/19 furosemide 40 mg tablet 40 mg PO TID #90 tab 12/18/19 potassium chloride 20 mEq 40 meq PO BID tab 12/18/19 tablet,extended release(part/cryst) spironolactone 25 mg tablet 25 mg PO DAILY tab 12/18/19 Surgical History: Surgical History (Last Reviewed 01/21/20 @ 10:[address] 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 Charles Good MD) Mother No problems noted. History Items: High Cholesterol, Heart Disease, Hypertension, Stroke, - - Patient's mother in her 40s from a cerebrovascular accident. Paternal Family History: Family History (Last Reviewed 12/18/19 @ 15:[address] Charles Good MD) Mother No problems noted. History Items: High Cholesterol, Heart Disease, Hypertension, - - Patient's father in his 40s from myocardial infarction. Review of Systems Constitutional: Reports: Weakness, Weight Change, Fatigue Cardiovascular: Reports: Edema. Denies: Chest Pain, Orthopnea Respiratory: Reports: Shortness of Breath Gastrointestinal: Denies: Abdominal Pain, Hematemesis, Hematochezia, Nausea, Melena, Vomiting Genitourinary: Denies: Dysuria, Frequency, Hematuria, Urgency Neurological: Denies: Focal weakness, Numbness, Tingling Psychiatric: Denies: Homicidal Ideations, Suicidal Ideations VTE Information - Inpt Only VTE Present on Admission: No VTE Mechan Device Prophylaxis: None VTE Pharm Prophylaxis ordered?: Yes Objective: GENERAL: cooperative HEENT: Atraumatic; EYES; Anicteric, Normal Conjunctiva NECK; supple, normal thyroid, RESPIRATORY: Diminished to auscultation CARDIOVASCULAR: Regular S1 S2, GI: soft, normoactive bowel sounds, : No Renal angle tenderness; EXTREMITIES: No edema, no clubbing, MUSCULOSKELETAL: no muscle waisting NEURO: Awake; no lateralizing signs. SKIN: Bruises on upper extremities PSYCH; Flat affect - Physical Exam Vitals/I&O's: Vital Signs Temp Pulse Resp BP Pulse Ox 98.3 F 94 17 157/82 H 99 01/21/20 07:50 01/21/20 07:58 01/21/20 07:58 01/21/20 07:58 01/21/20 07:58 Oxygen Flow Rate (L/min) 2 Oxygen Delivery Method Nasal Cannula Weight: 79.3 kg Body Mass Index (BMI) 34.1 Laboratory Results 01/21/20 08:46: WBC 9.1, RBC 4.17 L, Hgb 9.5 L, Hct 31.9 L, MCV 76.5 L, MCH 22.8 L, MCHC 29.8 L, RDW Std Deviation 57.3 H, RDW Coeff of Jade 21.2 H, Plt Count 3 01, MPV 9.7, Immature Gran % (Auto) 0.300, Neut % (Auto) 71.9 H, Lymph % (Auto) 10.5 L, [place] % (Auto) 6.6, Eos % (Auto) 10.3 H, Baso % (Auto) 0.4, Absolute Neuts (auto) 6.6, Absolute Lymphs (auto) 0.96, Nucleated RBC % 0, RBC Morphology N CHROM, Poikilocytosis 1+, Anisocytosis 2+, Microcytosis 1+, Ovalocytes 1+ 01/21/20 08:46: Sodium 139, Potassium 3.8, Chloride 103, Carbon Dioxide 28.0, Anion Gap 8, BUN 23 H, Creatinine 1.74 H, Estim Creat Clear Calc 23.46, Est GFR (MDRD) Af Amer 38 L, Est GFR (MDRD) Non-Af 31 L, BUN/Creatinine Ratio 13.2, Glucose 151 H, Calcium 8.7, Magnesium 2.2, Troponin I 0.027 01/21/20 08:46: B-Natriuretic Peptide > 5000.0 H Assessment/Plan All Active Problems (Last Reviewed 01/21/20 @ 10:[address] Jacob Byrd MD) Dyspnea on exertion (Acute) Orthopnea (Acute) History of coronary artery stent placement (Resolved 05/18/18) Acute exacerbation of CHF (congestive heart failure) (Resolved) Acute on chronic combined systolic (congestive) and diastolic (congestive) heart failure (Resolved) Acute respiratory failure with hypoxia (Resolved) CHF exacerbation (Resolved) COPD exacerbation (Resolved) COPD exacerbation (Resolved) Chronic ulcer of buttock (Resolved) Flash pulmonary edema (Resolved) Patient is a 64-year-old lady presented with shortness of breath 1. Acute on chronic congestive heart failure with reduced ejection fraction ?Echo obtained on 11/30/2019 performed at [facility] demonstrated EF of 25%. Patient has been admitted to monitored bed placed on fluid restriction, strict input and output, daily weight, as well as IV Lasix. Patient responding to treatment 2. Acute respiratory insufficiency ?Secondary to acute on chronic congestive heart failure with reduced ejection fraction management as discussed above 3. Coronary artery disease ?Patient apparently underwent repeat left heart catheterization on 06/29/2019 at [facility] requiring balloon angioplasty of an in-stent restenosis of an LAD 4. Valvular heart disease ?As stated above echo obtained on 07/15/2019 demonstrated severe eccentric mitral valve regurgitation. And is followed by cardiology as outpatient 5. Dyslipidemia ~patient is on statin therapy, continued at home dose 6. Diabetes mellitus type II -Controlled diabetes placed on long-acting insulin in addition to Accu-Cheks a.c. and at bedtime and covered with sliding scale insulin 7. Hypertension ~ blood pressure controlled, home medications continued with dose adjustment as needed 8. COPD ?Aerosol treatment as needed 9. Depression ?Patient is on SSRI 10. Peripheral arterial disease ?With history of right carotid endarterectomy as well as angioplasty involving popliteal as well as supra superficial femoral artery on 11/14/[address] Jimenez 11. DVT prophylaxis ~ on enoxaparin Advance planning; did discuss with the patient and family regarding advanced directives as well as CODE STATUS. Did explain the various scenarios involved ( FULL CODE, DNR CCA, DNR CCA with no intubation, and DNR CC and what each meant) patient elected to remain full code with CPR and intubation if warranted. Order was placed. Time spent on discussion 18 minutes. Inpatient E&M: 36470 Init Hosp L3 Procedures: 58893 Advncd Care Plan 30 Min
[2020-01-21] MEDS: Furosemide 40 MG/4 ML Vial IV ×3 (10:47→22:13)
--- NOTE | 2020-01-21 11:53 | CASEMGMT ---
Per pt, she was supposed to go home from [facility] yesterday on oxygen but was sent home without oxygen and then presented to [facility] ED for SOB with a sat of 85%. Pt states she was SOB throughout the night. [place] Ell[place] [facility] [place] that [facility] did not provide physician NPI until after 1700 last night and [facility] [place] with a phone number to contact pt either. Per Ellie, pt will need new testing at discharge. Pt also c/o lower extremity swelling and difficulty walking d/t same. CM to follow for PT/OT evals and home oxygen qualification. SStaten RN CM
[2020-01-21 15:55] LABS: Bedside Glucose 144 mg/dL (70-110)
[2020-01-21] MEDS: oxyCODONE 5 MG Tablet PO (17:11)
--- NOTE | 2020-01-21 18:37 | CPS ---
Pt assessed by this therapist and Shirley HORSE RACER. Mother at bedside. Pt is on home vent. Mother was informed that if she needed anything from respiratory that she could call us. Mother was asked to bring pt's vent. supplies,trach care supplies and IPV adapter and set up in. Mother agreed and was understanding of the respiratory department assistance to her if she needs anything. Mother had full understanding that respiratory will not be managing/maintaining the home ventilator. Mother understood that if pt showed any signs of distress respiratory would place the pt on the hospital ventilator.
[2020-01-21] MEDS: Ipratropium/Albuterol Sulfate 3 ML AMPUL.NEB INHALATION (19:41)
[2020-01-21 22:05] LABS: Bedside Glucose 128 mg/dL (70-110)
[2020-01-21] MEDS: busPIRone 5 MG Tablet 20 MG PO (22:11)
[2020-01-21] MEDS: Atorvastatin Calcium 40 MG Tablet PO (22:12)
[2020-01-21] MEDS: 0.9% Saline Lock 10 ML Syringe IV (22:13)
[2020-01-21] MEDS: Gabapentin 100 MG Capsule PO (22:13)
[2020-01-22] VITALS (13 sets, daily range): BP systolic 99–137; BP diastolic 45–67; PULSE 72–89; RESP 14–20; TEMP 36.7–37.2; O2SAT 96–99
[2020-01-22] MEDS: oxyCODONE 5 MG Tablet PO ×3 (05:34→18:08)
[2020-01-22] MEDS: busPIRone 5 MG Tablet 20 MG PO ×3 (05:35→21:04)
[2020-01-22] MEDS: Menthol/Lanolin/Calamine/Znox 113 GM Tube 1 APPLIC TOPICAL ×3 (05:35→21:04)
[2020-01-22] MEDS: 0.9% Saline Lock 10 ML Syringe IV (05:36)
[2020-01-22] MEDS: Furosemide 40 MG/4 ML Vial IV (05:36)
[2020-01-22 06:24] LABS: Absolute Lymphocyte Count 1.21 X10^3/uL (0.83-4.51); Absolute Neutrophil Count 5.2 X10^3/uL (2.0-7.7); Basophil# 0.05 X10^3/uL; Basophil% 0.6 % (0-1); Eosinophil# 1.28 X10^3/uL; Eosinophils% 15.3 % (0-5); Hematocrit 32.6 % (37-47); Hemoglobin 9.6 g/dL (12.0-15.0); Lymphocyte # 1.21 X10^3/ul (4.0); Lymphocyte % 14.4 % (19-41); Mean Corp Hgb Conc 29.4 g/dL (32-36); Mean Corpuscular Hgb 22.6 pg (27.0-32.0); Mean Corpuscular Volume 76.9 fL (81-99); Mean Platelet Vol. 9.2 fl (6.2-12.0); Monocyte# 0.64 X10^3/uL; Monocyte% 7.6 % (0-10); NRBC Flagged by Analyzer 0 % (0-5); Neutrophil # 5.19 X10^3/uL (2.7-7.7); Neutrophil % 61.9 % (47-70); POSITIVE MORPHOLOGY YES; Platelet Count 290 K/mm3 (150-450); RBC Distribution Width CV 21.1 % (11.6-14.6); RBC Distribution Width SD 57.9 fl (35.1-43.9); Red Blood Count 4.24 M/mm3 (4.2-5.4); White Blood Count 8.4 K/mm3 (4.4-11.0)
[2020-01-22 06:42] LABS: Differential Indicated SCAN CRITERIA MET
[2020-01-22 06:49] LABS: Differential Comment SCANNED; Hypochromasia 1+
[2020-01-22 06:55] LABS: Bedside Glucose 99 mg/dL (70-110)
[2020-01-22] MEDS: Ipratropium/Albuterol Sulfate 3 ML AMPUL.NEB INHALATION ×3 (06:57→19:40)
[2020-01-22 07:08] LABS: Anion Gap 4 (5-15); BUN 22 mg/dL (7-18); BUN/Creat Ratio 13.8 RATIO (10-20); Calcium,Total 8.5 mg/dL (8.5-10.1); Chloride 105 mmol/L (98-107); EST Glomerular Filtration Rate 35 mL/min (>60); Est Glom Filt Rate - Afr Amer 42 mL/min (>60); Estimated Creatinine Clearance 42.95 ml/min; Glucose 98 mg/dL (74-106); Magnesium 2.3 mg/dL (1.6-2.6); Potassium 3.7 mmol/L (3.5-5.1); Sodium Level 138 mmol/L (136-145)
[2020-01-22] MEDS: Clopidogrel Bisulfate 75 MG Tablet PO (09:30)
[2020-01-22] MEDS: Metoprolol(XL)Succ 25 MG Tablet PO (09:30)
[2020-01-22] MEDS: Aspirin 81 MG TAB.CHEW PO (09:31)
[2020-01-22] MEDS: Spironolactone 25 MG Tablet 12.5 MG PO (09:31)
[2020-01-22] MEDS: Enoxaparin 30 MG/0.3 ML Syringe SC (09:33)
[2020-01-22] MEDS: Sertraline 50 MG Tablet PO (09:34)
[2020-01-22 12:10] LABS: Bedside Glucose 151 mg/dL (70-110)
--- NOTE | 2020-01-22 13:57 | PCM.PN.HOSP ---
Patient Problems: Active and Suspected Problems (Last Reviewed 01/21/20 @ 10:[address] Jacob Byrd MD) Hypoxia (Acute) Dyspnea (Acute) Subjective: States that she is feeling poorly, although breathing is better now that she has O2. Has been feeling very poorly. Vitals/I&O's: Vital Signs Temp Pulse Resp BP Pulse Ox 98.6 F 82 20 H 108/45 L 96 01/22/20 09:25 01/22/20 13:15 01/22/20 13:15 01/22/20 09:25 01/22/20 09:25 Oxygen Flow Rate (L/min) 2 Oxygen Delivery Method Nasal Cannula Weight: 76.6 kg Body Mass Index (BMI) 33.6 Intake and Output for Last 24 Hours 01/20/20 01/21/20 01/22/20 23:59 23:59 23:59 Intake Total 240 / 240 740 / 740 Output Total 1250 / 1250 Balance 240 / -260 -510 / -510 General: Alert, Oriented x3, Cooperative, No apparent distress, Well developed, Well nourished HEENT: Atraumatic, PERRLA, EOMI, Normocephalic, EAC Clear Oral: Moist Mucosa, No Gingival or Mucosal Lesions/ Ulcerations, - - edentulous Neck: Supple, No Nodes, No Nuchal Rigidity, Trachea Midline, Thyroid Normal Size and Texture, JVD, Bilateral Lungs: No rhonchi, No wheeze, Diminished - diffusely, Rales - B bases Cardiovascular: Regular rate, Regular Rhythm, Normal S1, Normal S2, No Ectopic Activity, Murmur - 3/6 SM, No rub noted, No Gallop Abdomen: Bowel Sounds Present, Soft, Non Tender, Non-Distended, Obese Extremities: No clubbing, No cyanosis, Capillary Refill Less than 3 Seconds, Edema - B LE pitting edema Skin: No rashes, No breakdown, - - blistering B LE Musculoskeletal: No Tenderness to Palpation of Joints or Extremities, No Muscle Wasting Lymphatic: No Cervical, Supraclavicular, or Inguinal Adenopathy Neurological: Cranial nerves II-XII grossly intact, Neuro grossly intact Psych/Mental Status: Normal Affect, Appropriate, Alert and oriented to time, place, person, mood and affect Laboratory Results 01/21/20 12:36: Troponin I 0.022 01/21/20 14:58: Troponin I Cancelled 01/21/20 15:52: POC Glucose 144 H 01/21/20 16:04: Troponin I 0.021 01/21/20 22:01: POC Glucose 128 H 01/22/20 06:10: WBC 8.4, RBC 4.24, Hgb 9.6 L, Hct 32.6 L, MCV 76.9 L, MCH 22.6 L, MCHC 29.4 L, RDW Std Deviation 57.9 H, RDW Coeff of Jade 21.1 H, Plt Count 290, MPV 9.2, Immature Gran % (Auto) 0.200, Neut % (Auto) 61.9, Lymph % (Auto) 14.4 L, [place] % (Auto) 7.6, Eos % (Auto) 15.3 H, Baso % (Auto) 0.6, Absolute Neuts (auto) 5.2, Absolute Lymphs (auto) 1.21, Nucleated RBC % 0, Differential Comment SCANNED, Hypochromasia 1+ 01/22/20 06:10: Sodium 138, Potassium 3.7, Chloride 105, Carbon Dioxide 29.0, Anion Gap 4 L, BUN 22 H, Creatinine 1.60 H, Estim Creat Clear Calc 42.95, Est GFR (MDRD) Af Amer 42 L, Est GFR (MDRD) Non-Af 35 L, BUN/Creatinine Ratio 13.8, Glucose 98, Calcium 8.5, Magnesium 2.3 01/22/20 06:50: POC Glucose 99 01/22/20 12:02: POC Glucose 151 H Current Medications Acetaminophen (Tylenol) 650 mg PO Q6H PRN PRN PRN Reason: Pain Score 1-10/Temp > 100.7 F Al Hydroxide/Mg Hydroxide (Mylanta Ii) 30 ml PO Q6H PRN PRN PRN Reason: Gastric Burning Albuterol Sulfate (Ventolin Aerosols) 2.5 mg INHALATION Q2H PRN PRN PRN Reason: SOB/Wheezing Albuterol/Ipratropium (Duoneb) 3 ml INHALATION Q6H.RT [facility] Last Admin: 01/22/20 13:14 Dose: 3 ml Documented by: Aspirin (Aspirin, Baby) 81 mg PO DAILY@0800 [facility] Last Admin: 08/26/20 09:31 Dose: 81 mg Documented by: Atorvastatin Calcium (Lipitor) 40 mg PO QHS [facility] Last Admin: 01/21/20 22:12 Dose: 40 mg Documented by: Buspirone HCl (Buspar) 20 mg PO TID [facility] Last Admin: 01/22/20 05:35 Dose: 20 mg Documented by: Calamine/Phenol (Calmoseptine Ointment) 1 applic TOPICAL TID [facility]; Protocol Last Admin: 01/22/20 05:35 Dose: 1 applicatio Documented by: Clopidogrel Bisulfate (Plavix) 75 mg PO DAILY [facility] Last Admin: 01/22/20 09:30 Dose: 75 mg Documented by: Dextrose (D50w Syringe) 0 gm IV X1 PRN; Protocol PRN Reason: Hypoglycemia Enoxaparin Sodium (Lovenox) 40 mg SC DAILY [facility] Ergocalciferol (Vitamin D) 50,000 unit PO WE [facility] Last Admin: 01/22/20 09:31 Dose: 50,000 unit Documented by: Furosemide (Lasix) 40 mg IV Q8 [facility] Last Admin: 01/22/20 05:36 Dose: 40 mg Documented by: Gabapentin (Neurontin) 100 mg PO QHS [facility] Last Admin: 01/21/20 22:13 Dose: 100 mg Documented by: Glucagon () 1 mg IM .X1 PRN PRN Reason: Hypoglycemia Guaifenesin (Robitussin) 20 ml PO Q4H PRN PRN PRN Reason: COUGH Sodium Chloride () 250 mls @ 15 mls/hr IV .[id number] PRN PRN Reason: Saline Flush Sodium Chloride () 250 mls @ 15 mls/hr IV .[id number] PRN PRN Reason: Additional IVPB Infusion Insulin Glargine (Lantus (Bkc)) 5 units SC QHS [facility] Last Admin: 01/21/20 22:12 Dose: 5 units Documented by: Insulin Human Lispro (Humalog Kwikpen (Bk)) [facility]; Protocol Last Admin: 01/22/20 12:03 Dose: Not Given Documented by: Loratadine (Claritin) 10 mg PO DAILY PRN PRN Reason: allergies Melatonin (Melatonin) 3 mg PO QHS PRN PRN PRN Reason: INSOMNIA Metoprolol Succinate (Toprol Xl (Beta Kristy)) 25 mg PO DAILY [facility] Last Admin: 01/22/20 09:30 Dose: 25 mg Documented by: Nitroglycerin (Nitrostat) 0.4 mg SUBLINGUAL Q5M PRN PRN Reason: CARDIAC/CHEST PAIN Ondansetron HCl (Zofran) 4 mg IV Q8H PRN PRN PRN Reason: NAUSEA/VOMITING Oxycodone HCl (Oxyir) 5 mg PO Q6H PRN PRN PRN Reason: Pain Score 1-10/10 Last Admin: 01/22/20 12:01 Dose: 5 mg Documented by: Potassium Chloride (K-Dur) 40 meq PO BID [facility] Last Admin: 01/22/20 09:31 Dose: 40 meq Documented by: Senna/Docusate Sodium (Senokot-S, [place]-Colace) 2 tablet PO BID PRN PRN PRN Reason: Constipation Sertraline HCl (Zoloft) 50 mg PO DAILY [facility] Last Admin: 01/22/20 09:34 Dose: 50 mg Documented by: Sodium Chloride () 10 - 40 ml IV UD PRN PRN Reason: SALINE FLUSH Last Admin: 01/22/20 05:36 Dose: 10 ml Documented by: Spironolactone (Aldactone) 12.5 mg PO DAILY [facility] Last Admin: 01/22/20 09:31 Dose: 12.5 mg Documented by: STROKE Vital Signs/Narrative: Vital Signs Pulse Resp 01/22/20 13:15 82 20 H Medical Necessity - Tobacco Use Smoking Status: Former smoker Assessment/Plan All Active Problems (Last Reviewed 01/21/20 @ 10:[address] Jacob Byrd MD) Hypoxia (Acute) Dyspnea (Acute) Dyspnea on exertion (Acute) Orthopnea (Acute) History of coronary artery stent placement (Resolved 05/18/18) Acute exacerbation of CHF (congestive heart failure) (Resolved) Acute on chronic combined systolic (congestive) and diastolic (congestive) heart failure (Resolved) Acute respiratory failure with hypoxia (Resolved) CHF exacerbation (Resolved) COPD exacerbation (Resolved) COPD exacerbation (Resolved) Chronic ulcer of buttock (Resolved) Flash pulmonary edema (Resolved) Acute Hypoxic Respiratory Failure 2/2 Decompensated HFrEF -Echo done 11/2019 at [facility] demonstrated EF of 25% with severe diffuse hypokinesis/mod to severe MVR/DARA -continue Fluid Restriction -continue Lasix 40 q 8 for now -start lasix ggt (discussed with cards) -daily weights -pt is to be on O2 at facility at home -now on 2 L with SpO2 96% -CXR was c/w volume overload -has diuresed about 1/2 L -is suspect his is the result of her MV diseases and per notes from cards in CKD stage 3 -sCr at baseline -monitor with diuresis Mod-Severe MV Regurgitation -had been following with Dr. Good for this -was told ? 2 yrs ago that she may need a replacement at some point -it appears that mitral valve clipping has been mentioned in the past -had been set up for [facility] evaluation for mitral valve repair, but unfortunately was unable to attend those visits due to various reasons -pt prefers [facility] for any valvular intervention -will consult Dr. Good HTN/HPL/CAD -underwent repeat LHC on 06/29/2019 at [facility] requiring balloon angioplasty of an in-stent restenosis of an LAD -continue Statin -continue asa -continue Plavix -continue Metoprolol -continue Aldactone COPD/Asthma -scheduled and prn aerosols -remote tobacco abuse H/O Retroperitoneal Bleed -no current issues -hgb stable DM-2 -on 5 u has HS and SSI -BGT overall look good PVD -H/O right carotid endarterectomy as well as angioplasty involving popliteal as well as supra superficial femoral artery on 11/14/[address] Jimenez Neuropathy -continue Gabapentin Depression -continue Zoloft Obesity -recommend wgt loss DVT prophylaxis -Lovenox Code status -Full Inpatient E&M: 81921 Subs Hosp L3
--- NOTE | 2020-01-22 14:00 | CASEMGMT ---
SAM GUTHRIE assessment: Face to Face with patient for initial transition planning/care coordination assessment. RN JERRI introduced self and role at [facility], pt voices understanding and consents to assessment at this time. Pt is sitting up in bed in no distress at this time. Pt is A/Ox4 at this time and answers all questions appropriately at this time. Care providers, pharmacy, and demographics verified/updated at this time. Presentation: D/C'd from [facility]CF yesterday, RA sat 85%, no home oxygen set up Admitting dx: CHF PCP: Barbara VALDIVIA Specialists: Florentino cardio; hanna Slaughter Preferred Pharmacy: [facility] Insurance: [facility] Prescription Benefit: [facility] Living Will/HPOA: Pt states does not have LW/HPOA and declines AD info at this time. LNOK: Sunil Solorio, ; Priscila Walker, daughter Living Arrangements: Pt states lives with in 1 story home with no steps in. Pt was only home for about 12hours before returning to [facility] ED, so unsure how pt would do at home after having been at SNF since September. Pt states she is not independent with ADL's and feels that she is unable to walk at this time d/t pain/swelling in legs. Transportation: Pt states or son drives and states no transportation concerns at this time. DME/HHC: Pt states has the following DME: cane, walker, w/c, raised toilet seat, shower chair, and nebulizer. Pt would like [employer], if/when she qualifies for home oxygen at discharge. Pt states has had [facility] in the past and has been to [facility] and [facility]. Pt states if she needs to go back to SNF then she would prefer [facility] at this time. Pt states she thought [facility] was setting up HHC but has not heard anything from anyone and is not sure who it would have been set up with. RN JERRI/JAX to follow. Pt does state some concern with going home at time of discharge at this time. Pt is retired. Pt states does not smoke cigarettes or drink ETOH. Pt states no further concerns/needs at this time. CM to follow for PT/OT evals, home oxygen testing, and any further discharge planning/needs. Advised pt to ask for CM if any further questions/concerns/needs arise, voices understanding. Pt Goal: Home Plan: TBD Sondra RN CM
[2020-01-22] MEDS: Furosemide 500 MG in Empty Viaflex 50 mL 1 EACH CONT INF (15:08)
[2020-01-22] MEDS: Insulin Lispro 100 UNIT/ML INSULN.PEN SC ×2 (17:06→21:05)
[2020-01-22 17:15] LABS: Bedside Glucose 162 mg/dL (70-110)
[2020-01-22] MEDS: Atorvastatin Calcium 40 MG Tablet PO (21:07)
[2020-01-22] MEDS: Gabapentin 100 MG Capsule PO (21:07)
[2020-01-22] MEDS: MELATONIN 3 MG TABLET PO (21:10)
[2020-01-22 21:35] LABS: Bedside Glucose 193 mg/dL (70-110)
[2020-01-23] VITALS (14 sets, daily range): BP systolic 95–133; BP diastolic 62–74; PULSE 73–93; RESP 16–20; TEMP 36.7–37; O2SAT 94–100
[2020-01-23] MEDS: oxyCODONE 5 MG Tablet PO ×4 (00:32→18:45)
[2020-01-23] MEDS: busPIRone 5 MG Tablet 20 MG PO ×3 (06:30→20:38)
[2020-01-23] MEDS: Menthol/Lanolin/Calamine/Znox 113 GM Tube 1 APPLIC TOPICAL ×3 (06:34→20:40)
[2020-01-23 06:45] LABS: Bedside Glucose 110 mg/dL (70-110)
[2020-01-23] MEDS: Ipratropium/Albuterol Sulfate 3 ML AMPUL.NEB INHALATION ×3 (07:11→20:15)
[2020-01-23] MEDS: Sertraline 50 MG Tablet PO (09:50)
[2020-01-23] MEDS: Metoprolol(XL)Succ 25 MG Tablet PO (09:50)
[2020-01-23] MEDS: Aspirin 81 MG TAB.CHEW PO (09:50)
[2020-01-23] MEDS: Clopidogrel Bisulfate 75 MG Tablet PO (09:50)
[2020-01-23] MEDS: Enoxaparin 40 MG/0.4 ML Syringe SC (09:50)
[2020-01-23] MEDS: Spironolactone 25 MG Tablet 12.5 MG PO (09:51)
--- NOTE | 2020-01-23 10:41 | CASEMGMT ---
Per Dr. Slaughter, cardiology states pt needs tranferred to [facility] at this time and per [facility] website, [facility] is in-network at this time. Sondra VARGAS CM
--- NOTE | 2020-01-23 10:53 | PCM.PN.HOSP ---
Patient Problems: Active and Suspected Problems (Last Reviewed 01/21/20 @ 10:[address] Jacob Byrd MD) Hypoxia (Acute) Dyspnea (Acute) Subjective: Feeling a little bit better today. O2 down to 1 L. Still SOB with exertion. Happy to be going to [facility] for further evaluation of her MV as she states that she is tired of being ill. Legs still painful. Vitals/I&O's: Vital Signs Temp Pulse Resp BP Pulse Ox 98.2 F 73 18 98/62 99 01/23/20 06:27 01/23/20 09:50 01/23/20 06:27 01/23/20 06:27 01/23/20 06:27 Oxygen Flow Rate (L/min) 1 Oxygen Delivery Method Nasal Cannula Weight: 74.2 kg Body Mass Index (BMI) 33.6 Intake and Output for Last 24 Hours 01/21/20 01/22/20 01/23/20 23:59 23:59 23:59 Intake Total 240 / 240 1477.7 / 1477.7 120 / 120 Output Total 2250 / 2250 600 / 600 Balance 240 / -260 -772.3 / -772.3 -480 / -480 General: Alert, Oriented x3, Cooperative, No apparent distress, Well developed, Well nourished HEENT: Atraumatic, PERRLA, EOMI, Normocephalic, EAC Clear Oral: Moist Mucosa, No Gingival or Mucosal Lesions/ Ulcerations, - - no thrush, Mallampati 2 Neck: Supple, Negative Carotid Bruits, No Nodes, Trachea Midline, Thyroid Normal Size and Texture, JVD, Bilateral Lungs: Clear to auscultation, No rhonchi, No wheeze, No rales, Rales - B Bases Cardiovascular: Regular rate, Regular Rhythm, Normal S1, Normal S2, No murmurs, No Ectopic Activity, No rub noted, No Gallop Abdomen: Bowel Sounds Present, Soft, Non Tender, Non-Distended Extremities: No clubbing, No cyanosis, Edema - 2 + pitting with blistering on legs Skin: No rashes, No breakdown Musculoskeletal: Tenderness - B calves Lymphatic: No Cervical, Supraclavicular, or Inguinal Adenopathy Neurological: Cranial nerves II-XII grossly intact, Neuro grossly intact, Muscle tone normal, Coordination normal Psych/Mental Status: Appropriate, Flat Affect, - - A&O x 4, pleasant, mood is slightly depressed Laboratory Results 01/22/20 12:02: POC Glucose 151 H 01/22/20 16:57: POC Glucose 162 H 01/22/20 21:03: POC Glucose 193 H 01/23/20 06:36: POC Glucose 110 Current Medications Acetaminophen (Tylenol) 650 mg PO Q6H PRN PRN PRN Reason: Pain Score 1-10/Temp > 100.7 F Al Hydroxide/Mg Hydroxide (Mylanta Ii) 30 ml PO Q6H PRN PRN PRN Reason: Gastric Burning Albuterol Sulfate (Ventolin Aerosols) 2.5 mg INHALATION Q2H PRN PRN PRN Reason: SOB/Wheezing Albuterol/Ipratropium (Duoneb) 3 ml INHALATION Q6H.RT [facility] Last Admin: 01/23/20 07:11 Dose: 3 ml Documented by: Aspirin (Aspirin, Baby) 81 mg PO DAILY@0800 [facility] Last Admin: 01/23/20 09:50 Dose: 81 mg Documented by: Atorvastatin Calcium (Lipitor) 40 mg PO QHS [facility] Last Admin: 01/22/20 21:07 Dose: 40 mg Documented by: Buspirone HCl (Buspar) 20 mg PO TID [facility] Last Admin: 01/23/20 06:30 Dose: 20 mg Documented by: Calamine/Phenol (Calmoseptine Ointment) 1 applic TOPICAL TID [facility]; Protocol Last Admin: 01/23/20 06:34 Dose: 1 applicatio Documented by: Clopidogrel Bisulfate (Plavix) 75 mg PO DAILY [facility] Last Admin: 01/23/20 09:50 Dose: 75 mg Documented by: Dextrose (D50w Syringe) 0 gm IV X1 PRN; Protocol PRN Reason: Hypoglycemia Enoxaparin Sodium (Lovenox) 40 mg SC DAILY [facility] Last Admin: 01/23/20 09:50 Dose: 40 mg Documented by: Ergocalciferol (Vitamin D) 50,000 unit PO WE [facility] Last Admin: 01/22/20 09:31 Dose: 50,000 unit Documented by: Gabapentin (Neurontin) 100 mg PO QHS [facility] Last Admin: 01/22/20 21:07 Dose: 100 mg Documented by: Glucagon () 1 mg IM .X1 PRN PRN Reason: Hypoglycemia Guaifenesin (Robitussin) 20 ml PO Q4H PRN PRN PRN Reason: COUGH Sodium Chloride () 250 mls @ 15 mls/hr IV .[id number] PRN PRN Reason: Saline Flush Sodium Chloride () 250 mls @ 15 mls/hr IV .[id number] PRN PRN Reason: Additional IVPB Infusion Furosemide 500 mg/ N/A 50 mls @ 2 mls/hr CONT INF .Q25H [facility] Last Infusion: 01/22/20 23:59 Dose: 20 mg/hr, 2 mls/hr Documented by: Insulin Glargine (Lantus ([facility])) 5 units SC QHS [facility] Last Admin: 01/22/20 21:06 Dose: 5 units Documented by: Insulin Human Lispro (Humalog Kwikpen ([facility])) 0 unit SC [facility]; Protocol Last Admin: 01/23/20 06:37 Dose: Not Given Documented by: Loratadine (Claritin) 10 mg PO DAILY PRN PRN Reason: allergies Melatonin (Melatonin) 3 mg PO QHS PRN PRN PRN Reason: INSOMNIA Last Admin: 01/22/20 21:10 Dose: 3 mg Documented by: Metoprolol Succinate (Toprol Xl (Beta Kristy)) 25 mg PO DAILY [facility] Last Admin: 01/23/20 09:50 Dose: 25 mg Documented by: Nitroglycerin (Nitrostat) 0.4 mg SUBLINGUAL Q5M PRN PRN Reason: CARDIAC/CHEST PAIN Ondansetron HCl (Zofran) 4 mg IV Q8H PRN PRN PRN Reason: NAUSEA/VOMITING Oxycodone HCl (Oxyir) 5 mg PO Q6H PRN PRN PRN Reason: Pain Score 1-10/10 Last Admin: 01/23/20 06:32 Dose: 5 mg Documented by: Potassium Chloride (K-Dur) 40 meq PO BID [facility] Last Admin: 01/23/20 09:51 Dose: 40 meq Documented by: Senna/Docusate Sodium (Senokot-S, Brook-Colace) 2 tablet PO BID PRN PRN PRN Reason: Constipation Sertraline HCl (Zoloft) 50 mg PO DAILY [facility] Last Admin: 01/23/20 09:50 Dose: 50 mg Documented by: Sodium Chloride () 10 - 40 ml IV UD PRN PRN Reason: SALINE FLUSH Last Admin: 01/22/20 05:36 Dose: 10 ml Documented by: Spironolactone (Aldactone) 12.5 mg PO DAILY [facility] Last Admin: 01/23/20 09:51 Dose: 12.5 mg Documented by: STROKE Vital Signs/Narrative: Vital Signs Pulse 01/23/20 09:50 73 01/23/20 07:00 73 Medical Necessity - Tobacco Use Smoking Status: Former smoker Assessment/Plan All Active Problems (Last Reviewed 01/21/20 @ 10:[address] Jacob Byrd MD) Hypoxia (Acute) Dyspnea (Acute) Dyspnea on exertion (Acute) Orthopnea (Acute) History of coronary artery stent placement (Resolved 05/18/18) Acute exacerbation of CHF (congestive heart failure) (Resolved) Acute on chronic combined systolic (congestive) and diastolic (congestive) heart failure (Resolved) Acute respiratory failure with hypoxia (Resolved) CHF exacerbation (Resolved) COPD exacerbation (Resolved) COPD exacerbation (Resolved) Chronic ulcer of buttock (Resolved) Flash pulmonary edema (Resolved) Acute Hypoxic Respiratory Failure 2/2 Decompensated HFrEF and Severe MVR -Echo done 11/2019 at [facility] demonstrated EF of 25% with severe diffuse hypokinesis/mod to severe MVR/DARA -continue Fluid Restriction -continue Lasix ggt -am lab is pending -daily weights -pt down 2.4 kg in last 24 hrs -pt is to be on O2 at facility at home -now on 1 L with SpO2 96% -CXR on admission was c/w volume overload -repeat in am -will need SARA -if EF remains down pt may need ICD placement as well CKD stage 3 -sCr at baseline (sCr has been as high as 2.43 and as low as 1.14 in the last 12 mos) -am lab pending -monitor with diuresis Mod-Severe MV Regurgitation -had been following with Dr. Good for this -was told approx 2 yrs ago that she may need a replacement at some point -it appears that mitral valve clipping has been mentioned in the past -had been set up for [facility] evaluation for mitral valve repair, but unfortunately was unable to attend those visits due to various reasons -pt prefers [facility] for any valvular intervention -d/w Dr. Good and he agrees that this is all related to her mitral valve disease and at this point with her multiple hospitalizations needs evaluated for intervention on the valve --> transfer pending to [facility] HTN/HPL/CAD -underwent repeat LHC on 06/29/2019 at [facility] requiring balloon angioplasty of an in-stent restenosis of an LAD -continue Statin -continue asa -continue Plavix -continue Metoprolol -continue Aldactone COPD/Asthma -scheduled and prn aerosols -remote tobacco abuse H/O Retroperitoneal Bleed -no current issues -hgb stable DM-2 -on 5 u has HS and SSI -BGT overall look good -continue with no changes today PVD -H/O right carotid endarterectomy as well as angioplasty involving popliteal as well as supra superficial femoral artery on 11/14/[address] Jimenez Neuropathy -continue Gabapentin Depression -continue Zoloft Obesity -recommend wgt loss DVT prophylaxis -Lovenox Code status -Full Dispo -accepted by cardiology at [facility] for transfer and further evaluation of her MV -awaiting BED Inpatient E&M: [id number] [facility] L[facility]
[2020-01-23 11:12] LABS: Absolute Lymphocyte Count 1.05 X10^3/uL (0.83-4.51); Absolute Neutrophil Count 4.9 X10^3/uL (2.0-7.7); Basophil# 0.05 X10^3/uL; Basophil% 0.7 % (0-1); Differential Indicated SCAN CRITERIA MET; Eosinophil# 0.88 X10^3/uL; Eosinophils% 11.6 % (0-5); Hematocrit 31.7 % (37-47); Hemoglobin 9.3 g/dL (12.0-15.0); Lymphocyte # 1.05 X10^3/ul (4.0); Lymphocyte % 13.8 % (19-41); Mean Corp Hgb Conc 29.3 g/dL (32-36); Mean Corpuscular Hgb 22.6 pg (27.0-32.0); Mean Corpuscular Volume 77.1 fL (81-99); Mean Platelet Vol. 9.4 fl (6.2-12.0); Monocyte# 0.67 X10^3/uL; Monocyte% 8.8 % (0-10); NRBC Flagged by Analyzer 0 % (0-5); Neutrophil # 4.92 X10^3/uL (2.7-7.7); Neutrophil % 64.8 % (47-70); POSITIVE MORPHOLOGY YES; Platelet Count 287 K/mm3 (150-450); RBC Distribution Width CV 21.1 % (11.6-14.6); RBC Distribution Width SD 57.9 fl (35.1-43.9); Red Blood Count 4.11 M/mm3 (4.2-5.4); White Blood Count 7.6 K/mm3 (4.4-11.0)
[2020-01-23 11:24] LABS: Anion Gap 3 (5-15); BUN 20 mg/dL (7-18); BUN/Creat Ratio 12.4 RATIO (10-20); Calcium,Total 8.3 mg/dL (8.5-10.1); Chloride 104 mmol/L (98-107); Creatinine, Serum 1.61 mg/dL (0.55-1.02); EST Glomerular Filtration Rate 34 mL/min (>60); Est Glom Filt Rate - Afr Amer 41 mL/min (>60); Estimated Creatinine Clearance 41.35 ml/min; Glucose 167 mg/dL (74-106); Magnesium 2.1 mg/dL (1.6-2.6); Sodium Level 139 mmol/L (136-145)
[2020-01-23] MEDS: Insulin Lispro 100 UNIT/ML INSULN.PEN SC ×2 (11:26→20:41)
[2020-01-23 11:36] LABS: Bedside Glucose 180 mg/dL (70-110)
[2020-01-23 11:58] LABS: Anisocytosis 1+
--- NOTE | 2020-01-23 12:12 | CASEMGMT ---
SW met with patient, introduced self and role at [facility]. SW spoke with patient about Palliative Care. She accepted pamphlet, but is not open to a referral being made at this time. She told SW she is being transferred to [facility]. SW encouraged her to talk with her primary care doctor about Palliative Care. Shanique MARTIN
[2020-01-23] MEDS: Furosemide 500 MG in Empty Viaflex 50 mL 1 EACH CONT INF (14:54)
[2020-01-23 16:30] LABS: Bedside Glucose 128 mg/dL (70-110)
[2020-01-23] MEDS: Atorvastatin Calcium 40 MG Tablet PO (20:46)
[2020-01-23] MEDS: MELATONIN 3 MG TABLET PO (20:46)
[2020-01-23] MEDS: Gabapentin 100 MG Capsule PO (20:46)
[2020-01-23 20:56] LABS: Bedside Glucose 151 mg/dL (70-110)
[2020-01-24] VITALS (15 sets, daily range): BP systolic 107–128; BP diastolic 51–75; PULSE 73–85; RESP 16–18; TEMP 36.8–37.1; O2SAT 98–100
[2020-01-24] MEDS: oxyCODONE 5 MG Tablet PO ×4 (01:47→20:24)
--- NOTE | 2020-01-24 04:50 | RAD_ITS ---
STUDY: X-RAY CHEST REASON FOR EXAM: Female, 64 years old. SOB TECHNIQUE: Single AP portable view of the chest. COMPARISON: Comparison is made with prior examination dated 01/21/2020. FINDINGS: EKG electrodes are seen. Mild residual vascular congestion. Small right pleural effusion. There is mild cardiac enlargement. Normal mediastinum and tom. Normal visualized pulmonary arteries. There is atherosclerotic tortuosity of the aortic arch and descending thoracic aorta. There are diffuse degenerative changes of the visualized thoracic spine. Normal visualized ribs, clavicles, and shoulders. There is no demonstrated abnormality of the visualized soft tissue structures of the upper abdomen. RAD/Chest 1 View (Portable) IMPRESSION: Mild residual vascular congestion with a small right pleural effusion. Electronically Signed: Veto Giordano, at 12:11 EDT , Service support ,
[2020-01-24] MEDS: busPIRone 5 MG Tablet 20 MG PO ×3 (05:14→21:54)
[2020-01-24] MEDS: Menthol/Lanolin/Calamine/Znox 113 GM Tube 1 APPLIC TOPICAL ×3 (05:15→21:54)
[2020-01-24 06:45] LABS: Bedside Glucose 128 mg/dL (70-110)
[2020-01-24 07:23] LABS: Absolute Lymphocyte Count 1.16 X10^3/uL (0.83-4.51); Absolute Neutrophil Count 5.1 X10^3/uL (2.0-7.7); Basophil# 0.04 X10^3/uL; Basophil% 0.5 % (0-1); Eosinophil# 0.97 X10^3/uL; Eosinophils% 12.1 % (0-5); Hematocrit 31.6 % (37-47); Hemoglobin 9.3 g/dL (12.0-15.0); Lymphocyte # 1.16 X10^3/ul (4.0); Lymphocyte % 14.5 % (19-41); Mean Corp Hgb Conc 29.4 g/dL (32-36); Mean Corpuscular Hgb 22.7 pg (27.0-32.0); Mean Corpuscular Volume 77.3 fL (81-99); Mean Platelet Vol. 9.6 fl (6.2-12.0); Monocyte# 0.72 X10^3/uL; NRBC Flagged by Analyzer 0 % (0-5); Neutrophil # 5.09 X10^3/uL (2.7-7.7); Neutrophil % 63.6 % (47-70); POSITIVE MORPHOLOGY YES; Platelet Count 286 K/mm3 (150-450); RBC Distribution Width SD 57.1 fl (35.1-43.9); Red Blood Count 4.09 M/mm3 (4.2-5.4)
[2020-01-24 07:24] LABS: Differential Indicated SCAN CRITERIA MET
[2020-01-24 07:45] LABS: Anion Gap 4 (5-15); BUN 21 mg/dL (7-18); BUN/Creat Ratio 13.5 RATIO (10-20); Calcium,Total 8.6 mg/dL (8.5-10.1); Chloride 103 mmol/L (98-107); Creatinine, Serum 1.56 mg/dL (0.55-1.02); EST Glomerular Filtration Rate 36 mL/min (>60); Est Glom Filt Rate - Afr Amer 43 mL/min (>60); Estimated Creatinine Clearance 41.93 ml/min; Glucose 130 mg/dL (74-106); Magnesium 2.3 mg/dL (1.6-2.6); Potassium 3.4 mmol/L (3.5-5.1); Sodium Level 138 mmol/L (136-145)
[2020-01-24 07:59] LABS: Anisocytosis 2+
[2020-01-24 08:00] LABS: Hypochromasia 1+; Poikilocytosis 1+
[2020-01-24] MEDS: Aspirin 81 MG TAB.CHEW PO (08:13)
--- NOTE | 2020-01-24 08:48 | PCM.PN.HOSP ---
Patient Problems: Active and Suspected Problems (Last Reviewed 01/21/20 @ 10:[address] Jacob Byrd MD) Hypoxia (Acute) Dyspnea (Acute) Subjective: Pt states that her breathing is better but contributes this primarily to the O2 supplementation. wgt is down almost 4 kg since admission. Legs feel less sore and swollen. Vitals/I&O's: Vital Signs Temp Pulse Resp BP Pulse Ox 98.6 F 73 16 120/66 99 01/24/20 05:11 01/24/20 07:00 01/24/20 05:11 01/24/20 05:11 01/24/20 07:20 Oxygen Flow Rate (L/min) 2 Oxygen Delivery Method Nasal Cannula Weight: 72.9 kg Body Mass Index (BMI) 33.6 Intake and Output for Last 24 Hours 01/22/20 01/23/20 01/24/20 23:59 23:59 23:59 Intake Total 1477.7 / 1477.7 743.03 / 743.03 240 / 240 Output Total 2250 / 2250 2500 / 2500 600 / 600 Balance -772.3 / -772.3 -1756.97 / -1756.97 -360 / -360 General: Alert, Oriented x3, Cooperative, No apparent distress, Well developed, Well nourished, - - WF sitting up in bed watching TV and eating breakfast, appears older than stated age, looks comfortable HEENT: Atraumatic, PERRLA, EOMI, Normocephalic, EAC Clear Oral: Moist Mucosa, No Gingival or Mucosal Lesions/ Ulcerations, - - dentures in, no thrush Neck: Supple, Negative Carotid Bruits, No Nodes, No Nuchal Rigidity, Trachea Midline, Thyroid Normal Size and Texture, JVD, Bilateral - mild Lungs: Clear to auscultation, No rhonchi, No wheeze, No rales, Diminished - bases B-slight Cardiovascular: Regular rate, Regular Rhythm, Normal S1, Normal S2, Murmur - 3/6 SM, No rub noted, No Gallop Abdomen: Bowel Sounds Present, Soft, Non Tender, Non-Distended, Obese, No hernias noted Extremities: No clubbing, No cyanosis, Capillary Refill Less than 3 Seconds, Edema - 1+ pitting B LE, less blistering, Peripheral Pulses Normal Skin: No rashes, No breakdown Musculoskeletal: No Tenderness to Palpation of Joints or Extremities, No Muscle Wasting, Arthritic Changes Lymphatic: No Cervical, Supraclavicular, or Inguinal Adenopathy Neurological: Cranial nerves II-XII grossly intact, Neuro grossly intact, Muscle tone normal, Coordination normal Psych/Mental Status: Normal Affect, Appropriate, Alert and oriented to time, place, person, mood and affect Laboratory Results 01/23/20 11:00: WBC 7.6, RBC 4.11 L, Hgb 9.3 L, Hct 31.7 L, MCV 77.1 L, MCH 22.6 L, MCHC 29.3 L, RDW Std Deviation 57.9 H, RDW Coeff of Jade 21.1 H, Plt Count 287, MPV 9.4, Immature Gran % (Auto) 0.300, Neut % (Auto) 64.8, Lymph % (Auto) 13.8 L, Prowers % (Auto) 8.8, Eos % (Auto) 11.6 H, Baso % (Auto) 0.7, Absolute Neuts (auto) 4.9, Absolute Lymphs (auto) 1.05, Nucleated RBC % 0, Anisocytosis 1+ 01/23/20 11:00: Sodium 139, Potassium 4.0, Chloride 104, Carbon Dioxide 32.0, Anion Gap 3 L, BUN 20 H, Creatinine 1.61 H, Estim Creat Clear Calc 41.35, Est GFR (MDRD) Af Amer 41 L, Est GFR (MDRD) Non-Af 34 L, BUN/Creatinine Ratio 12.4, Glucose 167 H, Calcium 8.3 L, Magnesium 2.1 01/23/20 11:23: POC Glucose 180 H 01/23/20 16:24: POC Glucose 128 H 01/23/20 20:37: POC Glucose 151 H 01/24/20 06:38: POC Glucose 128 H 01/24/20 07:09: WBC 8.0, RBC 4.09 L, Hgb 9.3 L, Hct 31.6 L, MCV 77.3 L, MCH 22.7 L, MCHC 29.4 L, RDW Std Deviation 57.1 H, RDW Coeff of Jade 21.0 H, Plt Count 286, MPV 9.6, Immature Gran % (Auto) 0.300, Neut % (Auto) 63.6, Lymph % (Auto) 14.5 L, Prowers % (Auto) 9.0, Eos % (Auto) 12.1 H, Baso % (Auto) 0.5, Absolute Neuts (auto) 5.1, Absolute Lymphs (auto) 1.16, Nucleated RBC % 0, Hypochromasia 1+, Poikilocytosis 1+, Anisocytosis 2+ 01/24/20 07:09: Sodium 138, Potassium 3.4 L, Chloride 103, Carbon Dioxide 31.0, Anion Gap 4 L, BUN 21 H, Creatinine 1.56 H, Estim Creat Clear Calc 41.93, Est GFR (MDRD) Af Amer 43 L, Est GFR (MDRD) Non-Af 36 L, BUN/Creatinine Ratio 13.5, Glucose 130 H, Calcium 8.6, Magnesium 2.3 Current Medications Acetaminophen (Tylenol) 650 mg PO Q6H PRN PRN PRN Reason: Pain Score 1-10/Temp > 100.7 F Al Hydroxide/Mg Hydroxide (Mylanta Ii) 30 ml PO Q6H PRN PRN PRN Reason: Gastric Burning Albuterol Sulfate (Ventolin Aerosols) 2.5 mg INHALATION Q2H PRN PRN PRN Reason: SOB/Wheezing Albuterol/Ipratropium (Duoneb) 3 ml INHALATION Q6H.RT [facility] Last Admin: 01/24/20 07:20 Dose: Not Given Documented by: Aspirin (Aspirin, Baby) 81 mg PO DAILY@0800 [facility] Last Admin: 01/24/20 08:13 Dose: 81 mg Documented by: Atorvastatin Calcium (Lipitor) 40 mg PO QHS [facility] Last Admin: 01/23/20 20:46 Dose: 40 mg Documented by: Buspirone HCl (Buspar) 20 mg PO TID [facility] Last Admin: 01/24/20 05:14 Dose: 20 mg Documented by: Calamine/Phenol (Calmoseptine Ointment) 1 applic TOPICAL TID [facility]; Protocol Last Admin: 01/24/20 05:15 Dose: 1 applicatio Documented by: Clopidogrel Bisulfate (Plavix) 75 mg PO DAILY [facility] Last Admin: 01/23/20 09:50 Dose: 75 mg Documented by: Dextrose (D50w Syringe) 0 gm IV X1 PRN; Protocol PRN Reason: Hypoglycemia Enoxaparin Sodium (Lovenox) 40 mg SC DAILY [facility] Last Admin: 01/23/20 09:50 Dose: 40 mg Documented by: Ergocalciferol (Vitamin D) 50,000 unit PO WE [facility] Last Admin: 01/22/20 09:31 Dose: 50,000 unit Documented by: Gabapentin (Neurontin) 100 mg PO QHS [facility] Last Admin: 01/23/20 20:46 Dose: 100 mg Documented by: Glucagon () 1 mg IM .X1 PRN PRN Reason: Hypoglycemia Guaifenesin (Robitussin) 20 ml PO Q4H PRN PRN PRN Reason: COUGH Sodium Chloride () 250 mls @ 15 mls/hr IV .[id number] PRN PRN Reason: Saline Flush Sodium Chloride () 250 mls @ 15 mls/hr IV .[id number] PRN PRN Reason: Additional IVPB Infusion Furosemide 500 mg/ N/A 50 mls @ 2 mls/hr CONT INF .Q25H [facility] Last Admin: 01/23/20 14:54 Dose: 20 mg/hr, 2 mls/hr Documented by: Insulin Glargine (Lantus ([facility])) 5 units SC QHS [facility] Last Admin: 01/23/20 20:45 Dose: 5 units Documented by: Insulin Human Lispro (Humalog Kwikpen ([facility])) 0 unit SC [facility]; Protocol Last Admin: 01/24/20 06:38 Dose: Not Given Documented by: Loratadine (Claritin) 10 mg PO DAILY PRN PRN Reason: allergies Melatonin (Melatonin) 3 mg PO QHS PRN PRN PRN Reason: INSOMNIA Last Admin: 01/23/20 20:46 Dose: 3 mg Documented by: Metoprolol Succinate (Toprol Xl (Beta Kristy)) 25 mg PO DAILY [facility] Last Admin: 01/23/20 09:50 Dose: 25 mg Documented by: Nitroglycerin (Nitrostat) 0.4 mg SUBLINGUAL Q5M PRN PRN Reason: CARDIAC/CHEST PAIN Ondansetron HCl (Zofran) 4 mg IV Q8H PRN PRN PRN Reason: NAUSEA/VOMITING Oxycodone HCl (Oxyir) 5 mg PO Q6H PRN PRN PRN Reason: Pain Score 1-10/10 Last Admin: 01/24/20 08:12 Dose: 5 mg Documented by: Potassium Chloride (K-Dur) 40 meq PO BID [facility] Last Admin: 01/23/20 20:43 Dose: 40 meq Documented by: Senna/Docusate Sodium (Senokot-S, Brook-Colace) 2 tablet PO BID PRN PRN PRN Reason: Constipation Sertraline HCl (Zoloft) 50 mg PO DAILY [facility] Last Admin: 01/23/20 09:50 Dose: 50 mg Documented by: Sodium Chloride () 10 - 40 ml IV UD PRN PRN Reason: SALINE FLUSH Last Admin: 01/22/20 05:36 Dose: 10 ml Documented by: Spironolactone (Aldactone) 12.5 mg PO DAILY [facility] Last Admin: 01/23/20 09:51 Dose: 12.5 mg Documented by: STROKE Vital Signs/Narrative: Vital Signs Temp Pulse Resp BP Pulse Ox 01/24/20 07:20 99 01/24/20 07:00 73 01/24/20 05:11 98.6 F 76 16 120/66 98 Medical Necessity - Tobacco Use Smoking Status: Former smoker Assessment/Plan All Active Problems (Last Reviewed 01/21/20 @ 10:[address] Jacob Byrd MD) Hypoxia (Acute) Dyspnea (Acute) Dyspnea on exertion (Acute) Orthopnea (Acute) History of coronary artery stent placement (Resolved 05/18/18) Acute exacerbation of CHF (congestive heart failure) (Resolved) Acute on chronic combined systolic (congestive) and diastolic (congestive) heart failure (Resolved) Acute respiratory failure with hypoxia (Resolved) CHF exacerbation (Resolved) COPD exacerbation (Resolved) COPD exacerbation (Resolved) Chronic ulcer of buttock (Resolved) Flash pulmonary edema (Resolved) Acute Hypoxic Respiratory Failure 2/2 Decompensated HFrEF and Severe MVR -Echo done 11/2019 at [facility] demonstrated EF of 25% with severe diffuse hypokinesis/mod to severe MVR/DARA -continue Fluid Restriction 1500cc -continue Lasix ggt -daily weights -pt down 3.7 kg since admission -pt is to be on O2 at facility/home -now on 2 L with SpO2 99% -pt insistent that it is the O2 that makes her better -CXR on admission was c/w volume overload -CXR today looks a bit better -will need SRAA at [facility] -if EF remains down pt may need ICD placement as well CKD stage 3 -sCr at baseline (sCr has been as high as 2.43 and as low as 1.14 in the last 12 mos) -sCr is holding stable (1.61-->1.56 today) with lasix ggt -monitor with diuresis Mod-Severe MV Regurgitation -had been following with Dr. Good for this -was told approx 2 yrs ago that she may need a replacement at some point -it appears that mitral valve clipping has been mentioned in the past -had been set up for [facility] evaluation for mitral valve repair, but unfortunately was unable to attend those visits due to various reasons -pt prefers [facility] for any valvular intervention -d/w Dr. Good and he agrees that this is all related to her mitral valve disease and at this point with her multiple hospitalizations needs evaluated for intervention on the valve --> transfer pending to [facility] and currently awaiting bed for transfer Hypokalemia -will give 40 mEq today -is already on 40 BID -repeat in am -Mag is 2.3 HTN/HPL/CAD -underwent repeat LHC on 06/29/2019 at [facility] requiring balloon angioplasty of an in-stent restenosis of an LAD -continue Statin -continue asa -continue Plavix -continue Metoprolol -continue Aldactone COPD/Asthma -scheduled and prn aerosols -remote tobacco abuse H/O Retroperitoneal Bleed -no current issues -hgb stable DM-2 -on 5 u has HS and SSI -BGT overall look good -continue with no changes today PVD -H/O right carotid endarterectomy as well as angioplasty involving popliteal as well as supra superficial femoral artery on 11/14/[address] Jimenez Neuropathy -continue Gabapentin Depression -continue Zoloft Obesity -recommend wgt loss DVT prophylaxis -Lovenox Code status -Full Dispo -accepted by cardiology at [facility] for transfer and further evaluation of her MV -awaiting BED Inpatient E&M: [id number] [facility] L3
[2020-01-24] MEDS: Furosemide 500 MG in Empty Viaflex 50 mL 1 EACH CONT INF (08:52)
[2020-01-24] MEDS: Clopidogrel Bisulfate 75 MG Tablet PO (10:43)
[2020-01-24] MEDS: Enoxaparin 40 MG/0.4 ML Syringe SC (10:43)
[2020-01-24] MEDS: Sertraline 50 MG Tablet PO (10:43)
[2020-01-24] MEDS: Spironolactone 25 MG Tablet 12.5 MG PO (10:45)
[2020-01-24] MEDS: Metoprolol(XL)Succ 25 MG Tablet PO (12:22)
[2020-01-24] MEDS: Insulin Lispro 100 UNIT/ML INSULN.PEN SC ×3 (12:23→21:58)
[2020-01-24] MEDS: Ipratropium/Albuterol Sulfate 3 ML AMPUL.NEB INHALATION ×2 (12:32→22:08)
[2020-01-24 12:46] LABS: Bedside Glucose 155 mg/dL (70-110)
--- NOTE | 2020-01-24 14:02 | NURSING ---
Read and reviewed SN documentation.
[2020-01-24 16:50] LABS: Bedside Glucose 195 mg/dL (70-110)
[2020-01-24 21:46] LABS: Bedside Glucose 169 mg/dL (70-110)
[2020-01-24] MEDS: Atorvastatin Calcium 40 MG Tablet PO (21:55)
[2020-01-24] MEDS: Gabapentin 100 MG Capsule PO (21:55)
[2020-01-24] MEDS: MELATONIN 10 MG TABLET PO (22:14)
[2020-01-24] MEDS: Acetaminophen 325 MG Tablet 650 MG PO (23:49)
[2020-01-25] VITALS (12 sets, daily range): BP systolic 100–123; BP diastolic 52–67; PULSE 66–85; RESP 16–18; TEMP 36.6–37.3; O2SAT 98–100
[2020-01-25] MEDS: oxyCODONE 5 MG Tablet PO ×4 (02:35→23:09)
[2020-01-25] MEDS: busPIRone 5 MG Tablet 20 MG PO ×3 (05:58→21:45)
[2020-01-25] MEDS: Menthol/Lanolin/Calamine/Znox 113 GM Tube 1 APPLIC TOPICAL ×3 (05:59→21:46)
[2020-01-25] MEDS: Furosemide 500 MG in Empty Viaflex 50 mL 1 EACH CONT INF (06:01)
[2020-01-25 06:31] LABS: Absolute Lymphocyte Count 1.32 X10^3/uL (0.83-4.51); Absolute Neutrophil Count 4.2 X10^3/uL (2.0-7.7); Basophil# 0.05 X10^3/uL; Basophil% 0.7 % (0-1); Eosinophil# 1.09 X10^3/uL; Eosinophils% 15.1 % (0-5); Hematocrit 33.6 % (37-47); Hemoglobin 9.6 g/dL (12.0-15.0); Lymphocyte # 1.32 X10^3/ul (4.0); Lymphocyte % 18.3 % (19-41); Mean Corp Hgb Conc 28.6 g/dL (32-36); Mean Corpuscular Hgb 22.2 pg (27.0-32.0); Mean Corpuscular Volume 77.8 fL (81-99); Mean Platelet Vol. 9.4 fl (6.2-12.0); Monocyte# 0.59 X10^3/uL; Monocyte% 8.2 % (0-10); NRBC Flagged by Analyzer 0 % (0-5); Neutrophil # 4.17 X10^3/uL (2.7-7.7); Neutrophil % 57.6 % (47-70); POSITIVE MORPHOLOGY YES; Platelet Count 284 K/mm3 (150-450); RBC Distribution Width CV 21.3 % (11.6-14.6); RBC Distribution Width SD 57.7 fl (35.1-43.9); Red Blood Count 4.32 M/mm3 (4.2-5.4); White Blood Count 7.2 K/mm3 (4.4-11.0)
[2020-01-25 06:36] LABS: Bedside Glucose 145 mg/dL (70-110)
[2020-01-25 06:38] LABS: Differential Indicated SCAN CRITERIA MET
[2020-01-25 06:48] LABS: Differential Comment SCANNED; Hypochromasia 1+
[2020-01-25 06:53] LABS: Anion Gap 2 (5-15); BUN 22 mg/dL (7-18); BUN/Creat Ratio 14.2 RATIO (10-20); Calcium,Total 8.4 mg/dL (8.5-10.1); Chloride 101 mmol/L (98-107); Creatinine, Serum 1.55 mg/dL (0.55-1.02); EST Glomerular Filtration Rate 36 mL/min (>60); Est Glom Filt Rate - Afr Amer 43 mL/min (>60); Estimated Creatinine Clearance 41.91 ml/min; Glucose 136 mg/dL (74-106); Magnesium 2.3 mg/dL (1.6-2.6); Sodium Level 136 mmol/L (136-145)
[2020-01-25] MEDS: Ipratropium/Albuterol Sulfate 3 ML AMPUL.NEB INHALATION (06:53)
[2020-01-25] MEDS: Spironolactone 25 MG Tablet 12.5 MG PO (08:43)
[2020-01-25] MEDS: Aspirin 81 MG TAB.CHEW PO (08:43)
[2020-01-25] MEDS: Enoxaparin 40 MG/0.4 ML Syringe SC (08:44)
[2020-01-25] MEDS: Clopidogrel Bisulfate 75 MG Tablet PO (08:44)
[2020-01-25] MEDS: Metoprolol(XL)Succ 25 MG Tablet PO (08:45)
[2020-01-25] MEDS: Sertraline 50 MG Tablet PO (08:45)
--- NOTE | 2020-01-25 09:22 | PCM.PN.HOSP ---
Patient Problems: Active and Suspected Problems (Last Reviewed 01/21/20 @ 10:[address] Jacob Byrd MD) Hypoxia (Acute) Dyspnea (Acute) Subjective: Pt states that her legs are less swollen but is c/o some leg pain. Breathing is good. Denies complaints this am. Knows we are waiting for a [facility] bed. Vitals/I&O's: Vital Signs Temp Pulse Resp BP Pulse Ox 97.9 F 76 18 104/66 98 01/25/20 08:40 01/25/20 08:45 01/25/20 08:40 01/25/20 08:40 01/25/20 08:40 Oxygen Flow Rate (L/min) 2 Oxygen Delivery Method Nasal Cannula Weight: 72.4 kg Body Mass Index (BMI) 33.6 Intake and Output for Last 24 Hours 01/23/20 01/24/20 01/25/20 23:59 23:59 23:59 Intake Total 743.03 / 743.03 1455.93 / 1455.93 282.3 / 282.3 Output Total 2500 / 2500 2250 / 2250 300 / 300 Balance -1756.97 / -1756.97 -794.07 / -794.07 -17.7 / -17.7 General: Alert, Oriented x3, Cooperative, No apparent distress, Well developed, Well nourished Lungs: Clear to auscultation, Normal air movement, No rhonchi, No wheeze, No rales Cardiovascular: Regular rate, Regular Rhythm, Normal S1, Normal S2, No murmurs, No Ectopic Activity, No rub noted, No Gallop Abdomen: Bowel Sounds Present, Soft, Non Tender, Non-Distended, Obese Extremities: No clubbing, No cyanosis, Capillary Refill Less than 3 Seconds, Edema - 1+ R LE and Trace-1+ LLE--> improving Skin: No rashes, No breakdown Musculoskeletal: No Tenderness to Palpation of Joints or Extremities, Arthritic Changes, Muscle Wasting Lymphatic: No Cervical, Supraclavicular, or Inguinal Adenopathy Neurological: Cranial nerves II-XII grossly intact, Neuro grossly intact, Muscle tone normal, Sensory exam intact to light touch and pain, Coordination normal, - - generalized weakness Psych/Mental Status: Normal Affect, Appropriate, Alert and oriented to time, place, person, mood and affect Laboratory Results 01/24/20 12:20: POC Glucose 155 H 01/24/20 16:42: POC Glucose 195 H 01/24/20 21:38: POC Glucose 169 H 01/25/20 06:22: WBC 7.2, RBC 4.32, Hgb 9.6 L, Hct 33.6 L, MCV 77.8 L, MCH 22.2 L, MCHC 28.6 L, RDW Std Deviation 57.7 H, RDW Coeff of Jade 21.3 H, Plt Count 284, MPV 9.4, Immature Gran % (Auto) 0.100, Neut % (Auto) 57.6, Lymph % (Auto) 18.3 L, [place]field % (Auto) 8.2, Eos % (Auto) 15.1 H, Baso % (Auto) 0.7, Absolute Neuts (auto) 4.2, Absolute Lymphs (auto) 1.32, Nucleated RBC % 0, Differential Comment SCANNED, Hypochromasia 1+ 01/25/20 06:22: Sodium 136, Potassium 4.0, Chloride 101, Carbon Dioxide 33.0 H, Anion Gap 2 L, BUN 22 H, Creatinine 1.55 H, Estim Creat Clear Calc 41.91, Est GFR (MDRD) Af Amer 43 L, Est GFR (MDRD) Non-Af 36 L, BUN/Creatinine Ratio 14.2, Glucose 136 H, Calcium 8.4 L, Magnesium 2.3 01/25/20 06:31: POC Glucose 145 H Current Medications Acetaminophen (Tylenol) 650 mg PO Q6H PRN PRN PRN Reason: Pain Score 1-10/Temp > 100.7 F Last Admin: 01/24/20 23:49 Dose: 650 mg Documented by: Al Hydroxide/Mg Hydroxide (Mylanta Ii) 30 ml PO Q6H PRN PRN PRN Reason: Gastric Burning Albuterol Sulfate (Ventolin Aerosols) 2.5 mg INHALATION Q2H PRN PRN PRN Reason: SOB/Wheezing Albuterol/Ipratropium (Duoneb) 3 ml INHALATION Q6H.RT [facility] Last Admin: 01/25/20 06:53 Dose: 3 ml Documented by: Aspirin (Aspirin, Baby) 81 mg PO DAILY@0800 [facility] Last Admin: 01/25/20 08:43 Dose: 81 mg Documented by: Atorvastatin Calcium (Lipitor) 40 mg PO QHS [facility] Last Admin: 01/24/20 21:55 Dose: 40 mg Documented by: Buspirone HCl (Buspar) 20 mg PO TID [facility] Last Admin: 01/25/20 05:58 Dose: 20 mg Documented by: Calamine/Phenol (Calmoseptine Ointment) 1 applic TOPICAL TID [facility]; Protocol Last Admin: 01/25/20 05:59 Dose: 1 applicatio Documented by: Clopidogrel Bisulfate (Plavix) 75 mg PO DAILY [facility] Last Admin: 01/25/20 08:44 Dose: 75 mg Documented by: Dextrose (D50w Syringe) 0 gm IV X1 PRN; Protocol PRN Reason: Hypoglycemia Enoxaparin Sodium (Lovenox) 40 mg SC DAILY [facility] Last Admin: 01/25/20 08:44 Dose: 40 mg Documented by: Ergocalciferol (Vitamin D) 50,000 unit PO WE [facility] Last Admin: 01/22/20 09:31 Dose: 50,000 unit Documented by: Gabapentin (Neurontin) 100 mg PO QHS [facility] Last Admin: 01/24/20 21:55 Dose: 100 mg Documented by: Glucagon () 1 mg IM .X1 PRN PRN Reason: Hypoglycemia Guaifenesin (Robitussin) 20 ml PO Q4H PRN PRN PRN Reason: COUGH Sodium Chloride () 250 mls @ 15 mls/hr IV .[id number] PRN PRN Reason: Saline Flush Sodium Chloride () 250 mls @ 15 mls/hr IV .[id number] PRN PRN Reason: Additional IVPB Infusion Furosemide 500 mg/ N/A 50 mls @ 2 mls/hr CONT INF .Q25H [facility] Last Admin: 01/25/20 06:01 Dose: 20 mg/hr, 2 mls/hr Documented by: Insulin Glargine (Lantus (Bkc)) 5 units SC QHS [facility] Last Admin: 01/24/20 21:57 Dose: 5 units Documented by: Insulin Human Lispro (Humalog Kwikpen (Bkc)) 0 unit SC ACHS [facility]; Protocol Last Admin: 01/25/20 06:34 Dose: Not Given Documented by: Loratadine (Claritin) 10 mg PO DAILY PRN PRN Reason: allergies Melatonin (Melatonin) 10 mg PO QHS PRN PRN PRN Reason: SLEEP Last Admin: 01/24/20 22:14 Dose: 10 mg Documented by: Metoprolol Succinate (Toprol Xl (Beta Kristy)) 25 mg PO DAILY [facility] Last Admin: 01/25/20 08:45 Dose: 25 mg Documented by: Nitroglycerin (Nitrostat) 0.4 mg SUBLINGUAL Q5M PRN PRN Reason: CARDIAC/CHEST PAIN Ondansetron HCl (Zofran) 4 mg IV Q8H PRN PRN PRN Reason: NAUSEA/VOMITING Oxycodone HCl (Oxyir) 5 mg PO Q6H PRN PRN PRN Reason: Pain Score 1-10/10 Last Admin: 01/25/20 08:42 Dose: 5 mg Documented by: Potassium Chloride (K-Dur) 40 meq PO BID [facility] Last Admin: 01/25/20 08:44 Dose: 40 meq Documented by: Senna/Docusate Sodium (Senokot-S, Brook-Colace) 2 tablet PO BID PRN PRN PRN Reason: Constipation Sertraline HCl (Zoloft) 50 mg PO DAILY [facility] Last Admin: 01/25/20 08:45 Dose: 50 mg Documented by: Sodium Chloride () 10 - 40 ml IV UD PRN PRN Reason: SALINE FLUSH Last Admin: 01/22/20 05:36 Dose: 10 ml Documented by: Spironolactone (Aldactone) 12.5 mg PO DAILY [facility] Last Admin: 01/25/20 08:43 Dose: 12.5 mg Documented by: STROKE Vital Signs/Narrative: Vital Signs Temp Pulse Resp BP Pulse Ox 01/25/20 08:45 76 01/25/20 08:40 97.9 F 76 18 104/66 98 01/25/20 06:54 68 01/25/20 06:53 71 18 99 Medical Necessity - Tobacco Use Smoking Status: Former smoker Assessment/Plan All Active Problems (Last Reviewed 01/21/20 @ 10:[address] Jacob Byrd MD) Hypoxia (Acute) Dyspnea (Acute) Dyspnea on exertion (Acute) Orthopnea (Acute) History of coronary artery stent placement (Resolved 05/18/18) Acute exacerbation of CHF (congestive heart failure) (Resolved) Acute on chronic combined systolic (congestive) and diastolic (congestive) heart failure (Resolved) Acute respiratory failure with hypoxia (Resolved) CHF exacerbation (Resolved) COPD exacerbation (Resolved) COPD exacerbation (Resolved) Chronic ulcer of buttock (Resolved) Flash pulmonary edema (Resolved) Acute Hypoxic Respiratory Failure 2/2 Decompensated HFrEF and Severe MVR -Echo done 11/2019 at [facility] demonstrated EF of 25% with severe diffuse hypokinesis/mod to severe MVR/DARA -continue Fluid Restriction 1500cc -continue Lasix ggt --> will considering increasing rate to 40/hr tomorrow depending on sCr and clinical appearance -daily weights -pt down 4.2 kg since admission -pt is to be on O2 at facility/home -on 2 L with SpO2 98% -pt insistent that it is the O2 that makes her better -will need SARA at [facility] -if EF remains down pt may need ICD placement as well CKD stage 3 -sCr at baseline (sCr has been as high as 2.43 and as low as 1.14 in the last 12 mos) -sCr is holding stable (1.56-->1.55 today) with lasix ggt -monitor with diuresis Mod-Severe MV Regurgitation -had been following with Dr. Good for this -was told approx 2 yrs ago that she may need a replacement at some point -it appears that mitral valve clipping has been mentioned in the past -had been set up for [facility] evaluation for mitral valve repair, but unfortunately was unable to attend those visits due to various reasons -pt prefers [facility] for any valvular intervention -d/w Dr. Good and he agrees that this is all related to her mitral valve disease and at this point with her multiple hospitalizations needs evaluated for intervention on the valve --> transfer pending to [facility] and currently awaiting bed for transfer B LE edema -has improved some with diuresis but still present -check dopplers B LE Hypokalemia -resolved -repeat in am -continue BID 40 mEq with continued lasix ggt HTN/HPL/CAD -underwent repeat LHC on 06/29/2019 at [facility] requiring balloon angioplasty of an in-stent restenosis of an LAD -continue Statin -continue asa -continue Plavix -continue Metoprolol -continue Aldactone COPD/Asthma -scheduled and prn aerosols -remote tobacco abuse H/O Retroperitoneal Bleed -no current issues -hgb stable DM-2 -on 5 u has HS and SSI -BGT overall look good -continue with no changes again today PVD -H/O right carotid endarterectomy as well as angioplasty involving popliteal as well as supra superficial femoral artery on 11/14/[address] Jimenez Neuropathy -continue Gabapentin Depression -continue Zoloft Obesity -recommend wgt loss DVT prophylaxis -Lovenox Code status -Full Dispo -accepted by cardiology at [facility] for transfer and further evaluation of her MV -awaiting BED Inpatient E&M: 03203 Subs Hosp L2
[2020-01-25] MEDS: Insulin Lispro 100 UNIT/ML INSULN.PEN SC ×3 (11:58→21:49)
[2020-01-25 12:06] LABS: Bedside Glucose 217 mg/dL (70-110)
[2020-01-25 17:15] LABS: Bedside Glucose 157 mg/dL (70-110)
[2020-01-25] MEDS: Atorvastatin Calcium 40 MG Tablet PO (21:45)
[2020-01-25] MEDS: Gabapentin 100 MG Capsule PO (21:46)
[2020-01-25] MEDS: Acetaminophen 325 MG Tablet 650 MG PO (21:47)
[2020-01-25] MEDS: MELATONIN 10 MG TABLET PO (21:47)
[2020-01-25] MEDS: Metoprolol Tartrate 25 MG Tablet 12.5 MG PO (21:52)
[2020-01-25 22:35] LABS: Bedside Glucose 172 mg/dL (70-110)
[2020-01-26 00:15] VITALS: BP 121/68; PULSE 82; RESP 16; TEMP 36.9; O2SAT 99
--- NOTE | 2020-01-26 01:05 | NURSING ---
Report given to Mireya VARGAS at [facility] [place]. Report also given to [facility] from [facility]. [facility].
--- NOTE | 2020-01-26 13:13 | PCM.DC.SUM ---
Discharge Date and Diagnosis Date of Admission: 01/21/20 Date of Discharge: 01/25/20 - Secondary Discharge Diagnosis Chronic Problems: Chronic Problems (Last Reviewed 01/21/20 @ 10:[address] Jacob Byrd MD) Acute on chronic systolic CHF (congestive heart failure) (Chronic) Acute exacerbation of CHF (congestive heart failure) (Chronic) Atherosclerosis of coronary artery of [place] heart without angina pectoris (Chronic) Chronic combined systolic and diastolic CHF (congestive heart failure) (Chronic) Bilateral carotid artery stenosis (Chronic) RCEA and L carotid 70-80% stenosis Non-rheumatic tricuspid valve insufficiency (Chronic) Nonrheumatic mitral (valve) insufficiency (Chronic) Secondary pulmonary arterial hypertension (Chronic) Essential (primary) hypertension (Chronic) Hyperlipidemia (Chronic) CVA (cerebral vascular accident) (Chronic) PAD (peripheral artery disease) (Chronic) Debility (Chronic) Hospital Course and Treatment Imaging Results: TUDY: X-RAY CHEST REASON FOR EXAM: Female, 64 years old. D/C FROM [facility]CF YESTERDAY. HOME O2 NOT DELIVERED TIMELY. RA SAT 85% PER SQUAD. TECHNIQUE: Single AP portable view of the chest. COMPARISON: Comparison is made with prior study dated 09/28/2019. FINDINGS: The seventh of mild degree of vascular congestion in keeping with mild CHF. There is no demonstrated pleural abnormality. There is moderate cardiac enlargement. Normal mediastinum and tom. Normal visualized pulmonary arteries. There is atherosclerotic tortuosity of the aortic arch and descending thoracic aorta. There are diffuse degenerative changes of the visualized thoracic spine. Normal visualized ribs, clavicles, and shoulders. There is no demonstrated abnormality of the visualized soft tissue structures of the upper abdomen. RAD/Chest 1 View (Portable) IMPRESSION: Cardiomegaly and mild degree of CHF. Electronically Signed: Veto Giordano, at 9:02 EDT , Service support , Operations: None Summary of Care Provided: Ms Solorio is a 64 year old F with a PMH significant for congestive heart failure with decreased ejection fraction and mitral valve disease who presented to the ED on 01/21/2020 with shortness of breath. She was apparently just discharged to home from a SNF on 01/20/2020. She stated that she was supposed to have an oxygen tank delivered but it was not there on her arrival home. She woke up on the morning of her presentation with significant difficulty breathing. She also noticed an increased weight as well as worsened bipedal edema. She called the EMS squad who upon arrival found patient to be hypoxic with an oxygen saturation around 85. Patient was placed on supplemental oxygen and transferred to the ED work-up. Her presentation in the ED was consistent with heart failure and she was admitted for further management. After careful review of her records and conversation with the pt I felt that her recurrent issues with her heart failure and inability to maintain was related to her severe MR and discussed the case with cardiology. Dr. Good felt that we had done all we could do medically and it was time for invasive repair/clipping of the MV and the pt desired to go to [facility] for this. This was addressed with cardiology at [facility] and they accepted the pt for transfer. In the meantime she was kept on a lasix ggt and had an overall wgt reduction of 4.2 kg(9.24 lbs). Her leg edema was improving and her SOB had improved although the pt preferred to remain on O2 despite stable SpO2. A bed became available on the evening of 01/24 and she was transferred in stable condition at that time. >31' spent on d/c coordination - Physical Exam Vitals/I&O's: Vital Signs Temp Pulse Resp BP Pulse Ox 98.4 F 82 16 121/68 H 99 01/26/20 00:15 01/26/20 00:15 01/26/20 00:15 01/26/20 00:15 01/26/20 00:15 Oxygen Flow Rate (L/min) 2 Oxygen Delivery Method Nasal Cannula Weight: 72.4 kg Body Mass Index (BMI) 33.6 Intake and Output for Last 24 Hours 01/24/20 01/25/20 01/26/20 23:59 23:59 23:59 Intake Total 1455.93 / 1455.93 1082.3 / 1082.3 Output Total 2250 / 2250 1400 / 1400 Balance -794.07 / -794.07 -317.7 / -317.7 Laboratory Results 01/25/20 17:02: POC Glucose 157 H 01/25/20 21:39: POC Glucose 172 H Home Medications: Medications to take at Discharge Clopidogrel Bisulfate [Clopidogrel] 75 mg PO DAILY 05/24/18 [place]-3 Fatty Acids [[place]-3] 2,000 mg PO DAILY 05/24/18 Ergocalciferol (Vitamin D2) [Vitamin D2] 50,000 unit PO WE 06/11/18 sertraline 50 mg tablet 50 mg PO DAILY 08/17/18 Aspirin [Aspirin, Baby] 81 mg PO DAILY@0800 07/12/19 Atorvastatin Calcium [Lipitor] 40 mg PO QHS 09/19/19 Buspirone HCl 20 mg PO TID 09/19/19 Ipratropium/Albuterol Sulfate [Duoneb] 3 ml INHALATION Q6H.RT 09/19/19 Albuterol Sulfate [Albuterol Sulfate HFA] 2 puff IH Q6H PRN 09/28/19 Loratadine 10 mg PO DAILY PRN 09/28/19 Metoprolol Succinate [Toprol Xl] 25 mg PO DAILY 09/28/19 Mometasone Furoate [Elocon] 1 applicatio TP DAILY 09/28/19 Acetaminophen [Tylenol Tablet] 650 mg PO Q6H PRN PRN tab 10/02/19 Melatonin 10 mg PO QHS PRN tab 10/02/19 potassium chloride 20 mEq tablet,extended release(part/cryst) 40 meq PO BID tab 12/18/19 spironolactone 25 mg tablet 12.5 mg PO DAILY tab 12/18/19 Furosemide 40 mg PO DAILY PRN 01/21/20 Furosemide [Lasix] 60 mg PO TID 01/21/20 Gabapentin [Neurontin] 100 mg PO QHS 01/21/20 Insulin Glargine [Lantus SoloStar Pen] 5 units SUBCUT QHS 01/21/20 Insulin Lispro [Humalog KwikPen] See Protocol SUBCUT ACHS 01/21/20 Oxycodone HCl 5 mg PO Q6H PRN PRN 01/21/20 Primary Care Physician: Evens Jimenez III, MD [Primary Care Provider] - Medical Necessity - Tobacco Use Smoking Status: Former smoker Meaningful Use Info Meaningful Use Diagnoses (Choose all that apply): CHF - CHF ALEJANDRA/ARB ordered at discharge?: No Reason ALEJANDRA/ARB not ordered?: Hypotension Documented LVEF (%): 25 Inpatient E&M: 97492 Disch Hosp
== END 2020-01-26 00:50 | disposition short-term general hospital (02) | DRG 194 ==
LOC: ED 08:36 → PCU 10:36
PROVIDERS: Admitting Provider Internal Medicine; Emergency Provider Emergency Medicine; PCP Family Medicine; Visit Provider Internal Medicine
DX: I13.0 Hypertensive heart and chronic kidney disease with heart failure and stage 1 through stage 4 chronic kidney disease, or unspecified chronic kidney disease (principal); I50.43 Acute on chronic combined systolic (congestive) and diastolic (congestive) heart failure; I25.10 Atherosclerotic heart disease of native coronary artery without angina pectoris; I65.23 Occlusion and stenosis of bilateral carotid arteries; I34.0 Nonrheumatic mitral (valve) insufficiency; I36.1 Nonrheumatic tricuspid (valve) insufficiency; I27.21 Secondary pulmonary arterial hypertension; E78.5 Hyperlipidemia, unspecified; E66.9 Obesity, unspecified; E11.51 Type 2 diabetes mellitus with diabetic peripheral angiopathy without gangrene; E11.22 Type 2 diabetes mellitus with diabetic chronic kidney disease; N18.3 Chronic kidney disease, stage 3 (moderate); E11.40 Type 2 diabetes mellitus with diabetic neuropathy, unspecified; J44.9 Chronic obstructive pulmonary disease, unspecified; J96.01 Acute respiratory failure with hypoxia; E87.6 Hypokalemia; F32.9 Major depressive disorder, single episode, unspecified; R53.81 Other malaise; Z95.5 Presence of coronary angioplasty implant and graft; Z68.34 Body mass index [BMI] 34.0-34.9, adult; Z79.4 Long term (current) use of insulin; Z79.82 Long term (current) use of aspirin; Z79.02 Long term (current) use of antithrombotics/antiplatelets; Z79.899 Other long term (current) drug therapy; Z87.891 Personal history of nicotine dependence; Z86.73 Personal history of transient ischemic attack (TIA), and cerebral infarction without residual deficits
CPT/HCPCS: 36415; 71045; 80048; 82962; 83735; 83880; 84484; 85025; 93005; 94640; 97162; 97166; 97802; 99251; 99285; A4216; G0463; J1940

== ENCOUNTER → 2020-03-09 05:00 | Outpatient (REF) | payer MEDICAID, SELFPAY ==
[2020-01-21 11:23] VITALS: BMI 33.6
[2020-03-09 09:22] LABS: Hematocrit 28.9 % (37-47); Hemoglobin 8.3 g/dL (12.0-15.0); Mean Corp Hgb Conc 28.7 g/dL (32-36); Mean Corpuscular Hgb 24.3 pg (27.0-32.0); Mean Corpuscular Volume 84.5 fL (81-99); Mean Platelet Vol. 9.3 fl (6.2-12.0); POSITIVE MORPHOLOGY YES; Platelet Count 319 K/mm3 (150-450); RBC Distribution Width CV 23.6 % (11.6-14.6); RBC Distribution Width SD 72.2 fl (35.1-43.9); Red Blood Count 3.42 M/mm3 (4.2-5.4); White Blood Count 8.5 K/mm3 (4.4-11.0)
[2020-03-09 09:26] LABS: Scan Indicated on CBC? Y/N YES- FLAGS NOTED
[2020-03-09 09:37] LABS: Anion Gap 6 (5-15); BUN 27 mg/dL (7-18); BUN/Creat Ratio 14.8 RATIO (10-20); Calcium,Total 8.4 mg/dL (8.5-10.1); Chloride 107 mmol/L (98-107); Creatinine, Serum 1.83 mg/dL (0.55-1.02); EST Glomerular Filtration Rate 30 mL/min (>60); Est Glom Filt Rate - Afr Amer 36 mL/min (>60); Glucose 129 mg/dL (74-106); Potassium 4.4 mmol/L (3.5-5.1); Sodium Level 139 mmol/L (136-145)
[2020-03-09 10:08] LABS: Differential Comment SCANNED
[2020-03-09 16:58] LABS: AST(SGOT) 22 U/L (15-37); Alanine Aminotransfer ALT/SGPT 18 U/L (13-56); Albumin, Serum 2.6 g/dL (3.2-5.0); Alkaline Phosphatase 104 U/L (45-117); Bilirubin, Direct 0.09 mg/dL (0.00-0.30); Globulin 3.9 g/dL (2.2-4.2); Phosphorus 4.6 mg/dL (2.5-4.9); Protein, Total 6.5 g/dL (6.4-8.2)
[2020-03-11 09:27] LABS: PTHIN 67.4 pg/mL (18.4-80.1)
== END ==
LOC: OLS.WHLCAR 05:00
PROVIDERS: PCP Family Medicine; Visit Provider Family Medicine
DX: I25.10 Atherosclerotic heart disease of native coronary artery without angina pectoris (principal); I50.43 Acute on chronic combined systolic (congestive) and diastolic (congestive) heart failure; M62.81 Muscle weakness (generalized); N18.4 Chronic kidney disease, stage 4 (severe)
CPT/HCPCS: 36415; 80048; 80076; 83970; 84100; 85027

== ENCOUNTER 2020-03-18 16:06 | Inpatient (IN) | payer MEDICAID, SELFPAY ==
[2020-03-13 11:28] VITALS: BMI 34.3
[2020-03-18] VITALS (8 sets, daily range): BP systolic 125–130; BP diastolic 84–93; PULSE 80–92; RESP 16–28; TEMP 37.2–37.7; O2SAT 97–100; BMI 40.2; BMI 37.3; BMI 40.0
--- NOTE | 2020-03-18 16:35 | EKG12_ITS ---
Test Reason : AM EKG Blood Pressure : / mmHG Vent. Rate : 081 BPM Atrial Rate : 081 BPM P-R Int : 148 ms QRS Dur : 094 ms QT Int : 402 ms P-R-T Axes : 076 -37 153 degrees QTc Int : 466 ms Normal sinus rhythm Left axis deviation Inferior infarct , age undetermined Anteroseptal infarct , age undetermined ST & T wave abnormality, consider lateral ischemia Abnormal ECG Confirmed by ANDREA GARCIA, JOE ([id number]), medical editor PRAHCI MARIA ([id number]) on 03/23/2020 1:17:42 PM Referred By: DR SOTO Confirmed By:JOE MENDEZ MD
--- NOTE | 2020-03-18 16:36 | ED.DCSUM_ITS ---
- ER Visit Summary Date of Service: 03/18/20 Chief Complaint: Abnormal labs History of Present Illness: The patient is a 64 F who presents with abnormal labs that were drawn at the [facility] today. Patient states she was told that her kidney function tests have gotten worse. Patient admits to leg swelling and mild weight gain. Patient states that they weighed her this morning and then sent her to the emergency department. Patient states she has a history of mild chronic kidney disease. Patient denies any chest pain or palpitations. Patient denies any shortness of breath or cough. Patient denies any fevers or chills. [facility] sent labs in which showed an elevated creatinine of 2.11 today. It was 1.83 on 03/09/2020. Physical Examination: Vital signs are stable. Patient is afebrile. Patient is in no acute distress. Oral mucosa is pink and moist. Neck is supple. Trachea is midline. There is no JVD. Heart was regular rate and rhythm. Lungs showed a few bibasilar rales. There is good respiratory effort noted. Abdomen is soft. Bowel sounds are normal. There is no tenderness. Extremities are intact. There is 2+ pitting edema of the lower extremities. Cranial nerves II through XII are intact. There are no focal motor or sensory deficits noted. Test Results: EKG shows a normal sinus rhythm with a rate of 87. There is nonspecific T wave inversion in leads V5 and V6 which is new compared to previous EKG dated 01/21/2020. CBC shows a mild anemia with a hemoglobin of 8.6 and hematocrit of 28.4. Comprehensive metabolic profile showed an elevated potassium of 5.4 and an elevated glucose of 354. BUN was 36 and creatinine was 2.18. These were elevated from prior results. Troponin was 0.023. BNP was greater than 5000. Portable chest x-ray was interpreted by the radiologist as no acute process. However, she does appear to have some cephalization on my interpretation. Compared to prior chest x-ray there is no change. With the prior chest x-ray she was admitted for congestive heart failure at that time. Emergency Department Course and Treatment: Patient was given Lasix here in the emergency department. Patient is feeling better on reevaluation. The case was discussed with the hospitalist. She will admit to PCU to her service. Patient understood and was agreeable with the plan. All questions were answered. Disposition: Admit to hospital Impression: 1. Congestive heart failure 2. Acute on chronic kidney disease 3. Hyperkalemia This note was generated with [employer] dictation software. It may contain incorrect words, spelling, and punctuation that were not noted in review of the chart prior to signing ED Disposition - Plan for ED Patient: Disposition: Acute Care Hospital [facility] Diagnosis: Congestive heart failure, Acute kidney injury superimposed on chronic kidney disease, Hyperkalemia Referrals: Evens Jimenez III, MD [Primary Care Provider] -
[2020-03-18 17:02] LABS: ALB/GLOB Ratio 0.6 RATIO (0.9-2.4); AST(SGOT) 20 U/L (15-37); Alanine Aminotransfer ALT/SGPT 35 U/L (13-56); Albumin, Serum 2.7 g/dL (3.2-5.0); Alkaline Phosphatase 198 U/L (45-117); Anion Gap 9 (5-15); BUN 36 mg/dL (7-18); BUN/Creat Ratio 16.5 RATIO (10-20); Calcium,Total 8.5 mg/dL (8.5-10.1); Chloride 101 mmol/L (98-107); Creatinine, Serum 2.18 mg/dL (0.55-1.02); EST Glomerular Filtration Rate 24 mL/min (>60); Est Glom Filt Rate - Afr Amer 29 mL/min (>60); Estimated Creatinine Clearance 37.21 ml/min; Globulin 4.3 g/dL (2.2-4.2); Glucose 354 mg/dL (74-106); Potassium 5.4 mmol/L (3.5-5.1); Sodium Level 132 mmol/L (136-145)
[2020-03-18 17:04] LABS: Absolute Lymphocyte Count 0.39 X10^3/uL (0.83-4.51); Absolute Neutrophil Count 8.8 X10^3/uL (2.0-7.7); Basophil# 0.01 X10^3/uL; Basophil% 0.1 % (0-1); Hematocrit 28.4 % (37-47); Hemoglobin 8.6 g/dL (12.0-15.0); Lymphocyte # 0.39 X10^3/ul (4.0); Lymphocyte % 4.1 % (19-41); Mean Corp Hgb Conc 30.3 g/dL (32-36); Mean Corpuscular Hgb 24.9 pg (27.0-32.0); Mean Corpuscular Volume 82.3 fL (81-99); Monocyte# 0.27 X10^3/uL; Monocyte% 2.8 % (0-10); NRBC Flagged by Analyzer 0 % (0-5); Neutrophil # 8.82 X10^3/uL (2.7-7.7); Neutrophil % 92.5 % (47-70); POSITIVE DIFFERENTIAL YES; POSITIVE MORPHOLOGY YES; Platelet Count 345 K/mm3 (150-450); RBC Distribution Width CV 23.1 % (11.6-14.6); RBC Distribution Width SD 68.2 fl (35.1-43.9); Red Blood Count 3.45 M/mm3 (4.2-5.4); White Blood Count 9.5 K/mm3 (4.4-11.0)
--- NOTE | 2020-03-18 17:05 | RAD_ITS ---
STUDY: X-RAY CHEST REASON FOR EXAM: Female, 64 years old. abnormal kidney function and fluid retention per assisted living facility TECHNIQUE: Single AP portable view of the chest. COMPARISON: January 24, 2020 FINDINGS: The lungs are clear and expanded. There is no demonstrated pleural abnormality. Normal size heart. Normal mediastinum and tom. Stable osseous structures. RAD/Chest 1 View (Portable) IMPRESSION: No acute process Electronically Signed: Jha Correa MD at 17:37 EDT , Service support ,
[2020-03-18 17:22] LABS: Differential Indicated SCAN CRITERIA MET
[2020-03-18 17:42] LABS: BNP,B-Type NATRIURETIC PEPTIDE > 5000.0 pg/mL (0-100)
[2020-03-18 17:45] LABS: Anisocytosis 1+; Platelet Estimate ADEQUATE (ADEQ)
--- NOTE | 2020-03-18 18:07 | PCM.HP.STD ---
Problem List (1) Acute exacerbation of CHF (congestive heart failure) Status: Acute Qualifiers: Heart failure type: combined systolic and diastolic Qualified Code(s): I50.43 - Acute on chronic combined systolic (congestive) and diastolic (congestive) heart failure (2) Acute kidney injury superimposed on CKD Status: Acute (3) Atherosclerosis of coronary artery of [place] heart without angina pectoris Status: Chronic Qualifiers: Coronary Disease-Associated Artery/Lesion type: unspecified vessel or lesion type Qualified Code(s): I25.10 - Atherosclerotic heart disease of [place] coronary artery without angina pectoris (4) Chronic combined systolic and diastolic CHF (congestive heart failure) Status: Chronic (5) Bilateral carotid artery stenosis Status: Chronic Comment: RCEA and L carotid 70-80% stenosis (6) Secondary pulmonary arterial hypertension Status: Chronic (7) Hyperlipidemia Status: Chronic Qualifiers: Hyperlipidemia type: unspecified Qualified Code(s): E78.5 - Hyperlipidemia, unspecified (8) CVA (cerebral vascular accident) Status: Chronic Qualifiers: CVA mechanism: unspecified Qualified Code(s): I63.9 - Cerebral infarction, unspecified (9) PAD (peripheral artery disease) Status: Chronic History of Present Illness Date of Admission: 03/18/20 Chief Complaint: Weight gain, abnormal labs The patient is a 64 y/o F w/ PMHx: Former Tobacco use, CAD s/p PCI LAD and mid LCx w/ 07/12/19 [facility] txf w/ balloon angioplasty to in-stent stenosis proximal LAD and ostium of the diagonal complicated by undifferentiated shock, Chronic combined Systolic/Diastolic CHF, HTN, HLD, Carotid disease s/p R CEA, L 70-80% stenosis, HTN, HLD, Asthma, Anxiety and Depression, Obesity, Chronic back pain, COPD, Hx CVA, Diabetes mellitus type II who presents to the [facility] ED on 03/18/20 from Assisted Living with history of progressively increasing renal function as well as worsening dyspnea, worse with exertion with weight gain and orthopnea prompting her referral to the ED for evaluation. In the ED notable RUQ TTP on examination with patient noting discomfort for the last several days but no nausea, emesis or alteration with intake, more severe with palpation, sharp, /10 but prior only noted dull vague ache, discussed with ED physician and will obtain GB US. Work-up in the ED included T 99.8, heart rate 90, BP 125/84, respiratory rate 28, 100% on 3 L nasal cannula, CBC with WBC 9.5, hemoglobin 8.6, platelets 345 with left shift with concurrent lymphopenia, CMP with sodium 132, potassium 5.4, BUN/creatinine 36/2.18, glucose 354, AST/ALT 20/35, alk phos 198, troponin 0.023, BNP greater than 5000, chest x-ray with no acute cardiopulmonary findings per read but some concern for mild overload, EKG with nonspecific T wave inversions V5-6 otherwise no acute evidence of ischemia. In the ED patient ministered Lasix 40 mg IV x1. GB US requested per ED physician and pending upon admission. Past Medical History Past Medical History (Chronic Problems): Chronic Problems (Last Reviewed 01/21/20 @ 10:[address] Jacob Byrd MD) Acute on chronic systolic CHF (congestive heart failure) (Chronic) Atherosclerosis of coronary artery of [place] heart without angina pectoris (Chronic) Chronic combined systolic and diastolic CHF (congestive heart failure) (Chronic) Bilateral carotid artery stenosis (Chronic) RCEA and L carotid 70-80% stenosis Non-rheumatic tricuspid valve insufficiency (Chronic) Nonrheumatic mitral (valve) insufficiency (Chronic) Secondary pulmonary arterial hypertension (Chronic) Essential (primary) hypertension (Chronic) Hyperlipidemia (Chronic) CVA (cerebral vascular accident) (Chronic) PAD (peripheral artery disease) (Chronic) Debility (Chronic) Medical History: Medical History (Last Reviewed 01/21/20 @ 10:[address] Jacob Byrd MD) Atherosclerosis of coronary artery of [place] heart without angina pectoris (Chronic) I25.10 Chronic combined systolic and diastolic CHF (congestive heart failure) (Chronic) I50.42 Bilateral carotid artery stenosis (Chronic) I65.23 RCEA and L carotid 70-80% stenosis Non-rheumatic tricuspid valve insufficiency (Chronic) I36.1 Nonrheumatic mitral (valve) insufficiency (Chronic) I34.0 Secondary pulmonary arterial hypertension (Chronic) I27.21 Essential (primary) hypertension (Chronic) I10 Hyperlipidemia (Chronic) E78.5 CVA (cerebral vascular accident) (Chronic) I63.9 PAD (peripheral artery disease) (Chronic) I73.9 Debility (Chronic) R53.81 Asthma J45.909 COPD (chronic obstructive pulmonary disease) J44.9 Chronic back pain M54.9, G89.29 Depression F32.9 Former tobacco use Z87.891 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 Type 2 diabetes mellitus E11.9 Acute on chronic combined systolic (congestive) and diastolic (congestive) heart failure (Resolved) I50.43 Hematoma of left foot S90.32XA Nicotine dependence F17.200 Allergies Penicillins Allergy (Severe, Verified 03/18/20 16:07) Swelling tolerated keflex in past with no issue fluoxetine [From Prozac] Adverse Reaction (Verified 03/18/20 16:07) NEEDS FOLLOW-UP pravastatin [From Pravachol] Adverse Reaction (Verified 03/18/20 16:07) NEEDS FOLLOW-UP Home Medications: Ambulatory Orders Medication Instructions Recorded Clopidogrel Bisulfate [Clopidogrel] 75 mg PO DAILY 05/24/18 [place]-3 Fatty Acids [[place]-3] 2,000 mg PO DAILY 05/24/18 Ergocalciferol (Vitamin D2) 50,000 unit PO WE 06/11/18 [Vitamin D2] sertraline 50 mg tablet 50 mg PO DAILY 08/17/18 Aspirin [Aspirin, Baby] 81 mg PO DAILY@0800 07/12/19 Buspirone HCl 20 mg PO TID 09/19/19 Ipratropium/Albuterol Sulfate 3 ml INHALATION Q6H.RT 09/19/19 [Duoneb] Albuterol Sulfate [Albuterol 2 puff IH Q6H PRN 09/28/19 Sulfate HFA] Loratadine 10 mg PO DAILY PRN 09/28/19 Mometasone Furoate [Elocon] 1 applicatio TP DAILY 09/28/19 Acetaminophen [Tylenol Tablet] 650 mg PO Q6H PRN PRN tab 10/02/19 Melatonin 10 mg PO QHS PRN tab 10/02/19 potassium chloride 20 mEq 40 meq PO BID tab 12/18/19 tablet,extended release(part/cryst) spironolactone 25 mg tablet 12.5 mg PO DAILY tab 12/18/19 Furosemide 40 mg PO DAILY PRN 01/21/20 Insulin Glargine [Lantus SoloStar 5 units SUBCUT QHS 01/21/20 Pen] Insulin Lispro [Humalog KwikPen] See Protocol SUBCUT ACHS 08/25/20 Oxycodone HCl 5 mg PO Q6H PRN PRN 01/21/20 atorvastatin 40 mg tablet 80 mg PO QHS tab 03/13/20 lisinopril 5 mg tablet 5 mg PO DAILY 03/13/20 metoprolol succinate 25 mg 12.5 mg PO DAILY tab 03/13/20 tablet,extended release 24 hr pantoprazole 40 mg tablet,delayed 40 mg PO DAILY 03/13/20 release spironolactone 25 mg tablet 25 mg PO DAILY 03/13/20 Surgical History: Surgical History (Last Reviewed 01/21/20 @ 10:[address] 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 Smoking Status: Former smoker Tobacco Use: Non-smoker Alcohol: None Drugs: None - *Family History Maternal Family History: Family History (Last Reviewed 12/18/19 @ 15:[address] Charles Good MD) Mother No problems noted. History Items: High Cholesterol, Heart Disease, Hypertension, Stroke, - - Patient's mother in her 40s from a cerebrovascular accident. Paternal Family History: Family History (Last Reviewed 12/18/19 @ 15:[address] Charles Good MD) Mother No problems noted. History Items: High Cholesterol, Heart Disease, Hypertension, - - Patient's father in his 40s from myocardial infarction. Review of Systems Constitutional: Reports: Malaise, Weakness, Fatigue. Denies: Anorexia, Chills, Fever, Weight Change HEENT: Denies: Head Aches, Sinus Congestion, Sinus Drainage Cardiovascular: Reports: Edema, Orthopnea. Denies: Chest Pain, Chest Pressure, Chest Tightness, Light Headedness, Palpitations, Syncope Respiratory: Reports: Shortness of breath upon exertion. Denies: Cough, Shortness of Breath, Shortness of breath at rest, Sputum production, Wheezing Gastrointestinal: Reports: Abdominal Pain. Denies: Nausea, Vomiting Genitourinary: Denies: Dysuria Musculoskeletal: Reports: Joint Pain. Denies: Joint Tenderness Skin: Denies: Rash, Wounds Neurological: Denies: Numbness, Tingling, Focal weakness Psychiatric: Reports: Anxiety, Depression. Denies: Homicidal Ideations, Suicidal Ideations Hematologic/ Lymphatic: Reports: Anemia, Easy Bruising, Easy Bleeding VTE Information - Inpt Only VTE Present on Admission: No VTE Mechan Device Prophylaxis: SCD's VTE Pharm Prophylaxis ordered?: Yes Subjective: Patient seated upright in ED bed, fatigued appearance, no obvious distress initially although certainly elicited on right upper quadrant evaluation during abdominal examination. Objective: Physical Examination: General: awake, alert, oriented x 3 and cooperative, seated upright in the ED bed, fatigued appearance, no acute distress. Skin: normal color, turgor, no icterus, cyanosis. HEENT: AT/NC, EOMI, PERRLA, mildly dry MM, no carotid bruits, difficult to assess JVD secondary to thickened neck. Lungs: Diminished breath sounds, greater bases, minimal rales at bases, no obvious rhonchi or wheezing. Heart: Regular rate and rhythm; no gallop, rub audible. Abdomen: soft, morbidly obese, significant sharp pain with palpation of the right upper quadrant, rebound and guarding noted, difficult to assess distention given this finding on examination, hyperactive bowel sounds, unable to discern HSM secondary to pain. Extremities: no cyanosis, clubbing, bilateral pedal to proximal abraham 3+ pitting edema. Neurological: patient awake, alert, oriented x 3; cognitive function intact; pupils equally reactive to light and accomodation; cranial nerves II-XII grossly normal, moving all 4 extremities, no focal deficits, strength severely global decrease secondary to acute presentation. Psychiatric: affect appears fatigued, uncomfortable following abdominal examination otherwise prior to this had been normal, no acute evidence of depressive or anxiety feelings. - Physical Exam Vitals/I&O's: Vital Signs Temp Pulse Resp BP Pulse Ox 99.8 F H 90 28 H 125/84 H 100 03/18/20 16:07 03/18/20 16:07 03/18/20 16:07 03/18/20 16:57 03/18/20 16:07 Oxygen Flow Rate (L/min) 3 Oxygen Delivery Method Nasal Cannula Weight: 199 lb 4.766 oz Body Mass Index (BMI) 40.2 Laboratory Results 03/18/20 16:10: WBC 9.5, RBC 3.45 L, Hgb 8.6 L, Hct 28.4 L, MCV 82.3, MCH 24.9 L, MCHC 30.3 L, RDW Std Deviation 68.2 H, RDW Coeff of Jade 23.1 H, Plt Count 345, MPV 10.0, Immature Gran % (Auto) 0.500, Neut % (Auto) 92.5 H, Lymph % (Auto) 4.1 L, [place] % (Auto) 2.8, Eos % (Auto) 0.0, Baso % (Auto) 0.1, Absolute Neuts (auto) 8.8 H, Absolute Lymphs (auto) 0.39 L, Nucleated RBC % 0, Differential Comment COMMENT, Platelet Estimate ADEQUATE, Anisocytosis 1+ 03/18/20 16:10: Sodium 132 L, Potassium 5.4 H, Chloride 101, Carbon Dioxide 22.0, Anion Gap 9, BUN 36 H, Creatinine 2.18 H, Estim Creat Clear Calc 37.21, Est GFR (MDRD) Af Amer 29 L, Est GFR (MDRD) Non-Af 24 L, BUN/Creatinine Ratio 16.5, Glucose 354 H, Calcium 8.5, Total Bilirubin 0.30, AST 20, ALT 35, Alkaline Phosphatase 198 H, Troponin I 0.023, Total Protein 7.0, Albumin 2.7 L, Globulin 4.3 H, Albumin/Globulin Ratio 0.6 L 03/18/20 16:10: B-Natriuretic Peptide > 5000.0 H Assessment/Plan All Active Problems (Last Reviewed 01/21/20 @ 10:[address] Jacob Byrd MD) Acute exacerbation of CHF (congestive heart failure) (Acute) Hypoxia (Acute) Dyspnea (Acute) Acute kidney injury superimposed on CKD (Acute) Dyspnea on exertion (Acute) Orthopnea (Acute) History of coronary artery stent placement (Resolved 05/18/18) Acute exacerbation of CHF (congestive heart failure) (Resolved) Acute on chronic combined systolic (congestive) and diastolic (congestive) heart failure (Resolved) Acute respiratory failure with hypoxia (Resolved) CHF exacerbation (Resolved) COPD exacerbation (Resolved) COPD exacerbation (Resolved) Chronic ulcer of buttock (Resolved) Flash pulmonary edema (Resolved) The patient is a 64 y/o F w/ PMHx: Former Tobacco use, CAD s/p PCI LAD and mid LCx w/ 07/12/19 [facility] txf w/ balloon angioplasty to in-stent stenosis proximal LAD and ostium of the diagonal complicated by undifferentiated shock, Chronic combined Systolic/Diastolic CHF, HTN, HLD, Carotid disease s/p R CEA, L 70-80% stenosis, HTN, HLD, Asthma, Anxiety and Depression, Obesity, Chronic back pain, COPD, Hx CVA, Diabetes mellitus type II who presents to the [facility] ED on 03/18/20 from Assisted Living with history of progressively increasing renal function as well as worsening dyspnea, worse with exertion with weight gain and orthopnea prompting her referral to the ED for evaluation. 1. Acute Decompensated Systolic/Diastolic CHF: Patient administered IV lasix in the ED, will admit to PCU, maintain on cardiac telemetry, obtain cardiac enzyme series, obtain serial EKGs, continue IV lasix diuresis, monitor I/Os, maintain on intake restriction, continue medical therapy w/ asa, statin, BB, holding ACEI/spironolactone given YULISA concurrently, add back once appropriate. Will obtain TSH and magnesium level. Most recent ECHO noted 07/12/19 w/ moderately dilated LV, EF 45%, stage I diastolic dysfunction, moderately enlarged LA, severe MVI, moderate TBI, RVSP 55 mmHg, moderate pulmonary hypertension, trivial aortic valve insufficiency noted to not change since 08/15/2018. Given timeline will request repeat echocardiogram as greater than 6 months. Pending response to above initiated treatment and therapies may consider cardiology involvement. 2. Acute kidney injury on CKD stage III: Secondary to volume overloaded status. Admission BUN/Cr 36/2.18, prior baseline creatinine noted to be 1.5-1.7 although has vacillated but recently increased. Will continue judicious IV Lasix usage, hold any nephrotoxic medications other than this and if necessary with a plan to obtain renal ultrasound as well as FeNa assessment not improving. 3. RUQ Abdominal pain: Concerning for GB involvement, notable TTP, notes discomfort for the last several days but no nausea, emesis or alteration with intake, more severe with palpation, sharp, 10/10 but prior only noted dull vague ache, discussed with ED physician and will obtain GB US. If notable may necessitate zosyn and surgery consultation. 4. Hyperkalemia, mild: Admission potassium 5.4, IV Lasix administered in the ED and will be continued therefore repeat BMP in AM. 5. Chronic normocytic anemia: Admission hemoglobin 8.6, baseline appears 8-9, stable, trend. 6. Diabetes mellitus type II: Most recent hemoglobin A1c 07/25/2018 noted to be 6.9% but at her evaluation at [facility] her A1c had been noted to be significantly elevated with insulin increase at that time following her admission, will repeat A1c now to assure improvement, continue current insulin regimen listed, ADA diet, accu checks w/ ISS. 7. Anxiety and depression: We will continue patient home BuSpar and sertraline regimen. 8. Carotid disease: Status post right CEA, left with noted ongoing stenosis with continued outpatient evaluation, maintain on aspirin, Plavix, statin therapy. 9. Hypertension: Maintain on IV Lasix as noted, continue metoprolol, holding lisinopril and spironolactone given YULISA concurrently. 10. Hyperlipidemia: Continue statin therapy. 11. Morbid Obesity: Weight loss and lifestyle changes encouraged. 12. Former Tobacco Abuse: Encouraged continued cessation, notes quit 14 months prior to current presentation. 13. History CVA: We will continue on aspirin, Plavix, hypertensive regimen, statin therapy, DM regimen with planned repeat HgbA1c. 14. DVT prophylaxis: SCDs, heparin. 15. CODE status: Patient does not have healthcare power of workers compensation defense attorney nor living will in place despite significant comorbidities. Encourage strongly patient consider setting up her and her son as her healthcare power of workers compensation defense attorney and to initiate living will. Noted that she may discuss these items and obtain assistance from case management/social work during admission. Discussed CODE status at length including difference between FULL code, DNR-CCA and DNR-CC status. Following discussions about the differences in these status, requested Full Code status. Advanced Care Planning Face to Face Time: 16 minutes. Inpatient E&M: 77262 Init Hosp L3 Procedures: 93123 Advncd Care Plan 30 Min
[2020-03-18] MEDS: Furosemide 40 MG/4 ML Vial IV (18:10)
--- NOTE | 2020-03-18 18:19 | NURSING ---
PCU, CHF, ACUTE ON CHRONIC KIDNEY DISEASE WHITE
--- NOTE | 2020-03-18 18:39 | US_ITS ---
STUDY: ABDOMINAL ULTRASOUND - RIGHT UPPER QUADRANT REASON FOR VISIT: Female, 64 years old RUQ PAIN TECHNIQUE: Ultrasound evaluation of the right upper quadrant was performed with real-time and static varghese-scale imaging. TECHNICAL QUALITY: Adequate. COMPARISON: 07/14/19. FINDINGS: Pancreas: Visualized portions of pancreas are unremarkable. Liver: Measures 18.5 cm. Liver shows increased echogenicity. No masses identified. Gallbladder: Prominent gallbladder wall may be partially secondary to underdistention. Multiple gallstones are identified. Negative sonographic Farias''s sign. Common bile duct: Measures 5 mm. No intraductal stones identified. Right kidney: Measures 7.4 cm in length. Normal contour. 1.2 cm cyst. No masses, stones, or hydronephrosis identified. Renal cortical thickness appears normal. Additional findings: Right pleural effusion US/Abdomen Limited IMPRESSION: Right pleural effusion. Gallstones and mild gallbladder wall thickening. Negative sonographic Farias''s sign. Hepatomegaly and diffusely increased hepatic echogenicity may indicate steatosis versus hepatocellular disease as clinically indicated. Atrophic right kidney. Electronically Signed: Ambrosio Espitia, at 20:27 EDT Tel , Service support ,
--- NOTE | 2020-03-18 18:58 | ED.RN ---
called [facility] informed them of pt's admission to [facility] and asked to have med list faxed.
[2020-03-18 21:09] LABS: Magnesium 2.5 mg/dL (1.6-2.6); Thyroid Stim Hormone (TSH) 0.71 uIU/mL (0.358-3.74)
[2020-03-18] MEDS: oxyCODONE 5 MG Tablet PO (21:31)
[2020-03-18] MEDS: Heparin Injection (Vial) 5,000 UNIT/ML VIAL 5000 UNIT SC (21:33)
[2020-03-18 21:51] LABS: Bedside Glucose 398 mg/dL (70-110)
[2020-03-18] MEDS: Insulin Lispro 100 UNIT/ML INSULN.PEN SC (22:04)
[2020-03-18] MEDS: Morphine 2 MG/ML Syringe IV (23:33)
[2020-03-19] VITALS (10 sets, daily range): BP systolic 124–156; BP diastolic 72–87; PULSE 78–91; RESP 16–18; TEMP 36.4–36.6; O2SAT 97–100
[2020-03-19] MEDS: Morphine 2 MG/ML Syringe IV (03:10)
[2020-03-19 03:24] LABS: Absolute Lymphocyte Count 0.68 X10^3/uL (0.83-4.51); Absolute Neutrophil Count 6.9 X10^3/uL (2.0-7.7); Basophil# 0.01 X10^3/uL; Basophil% 0.1 % (0-1); Hematocrit 30.1 % (37-47); Hemoglobin 9.1 g/dL (12.0-15.0); Lymphocyte # 0.68 X10^3/ul (4.0); Lymphocyte % 8.4 % (19-41); Mean Corp Hgb Conc 30.2 g/dL (32-36); Mean Corpuscular Hgb 25.1 pg (27.0-32.0); Mean Corpuscular Volume 83.1 fL (81-99); Mean Platelet Vol. 9.3 fl (6.2-12.0); Monocyte# 0.47 X10^3/uL; Monocyte% 5.8 % (0-10); NRBC Flagged by Analyzer 0 % (0-5); Neutrophil # 6.91 X10^3/uL (2.7-7.7); Neutrophil % 85.1 % (47-70); POSITIVE MORPHOLOGY YES; Platelet Count 324 K/mm3 (150-450); RBC Distribution Width CV 23.1 % (11.6-14.6); RBC Distribution Width SD 69.6 fl (35.1-43.9); Red Blood Count 3.62 M/mm3 (4.2-5.4); White Blood Count 8.1 K/mm3 (4.4-11.0)
[2020-03-19 03:41] LABS: ALB/GLOB Ratio 0.7 RATIO (0.9-2.4); AST(SGOT) 13 U/L (15-37); Alanine Aminotransfer ALT/SGPT 33 U/L (13-56); Albumin, Serum 2.9 g/dL (3.2-5.0); Alkaline Phosphatase 185 U/L (45-117); Anion Gap 9 (5-15); BUN 39 mg/dL (7-18); BUN/Creat Ratio 17.9 RATIO (10-20); Calcium,Total 8.4 mg/dL (8.5-10.1); Chloride 99 mmol/L (98-107); Cholesterol 89 mg/dL (200); Creatinine, Serum 2.18 mg/dL (0.55-1.02); EST Glomerular Filtration Rate 24 mL/min (>60); Est Glom Filt Rate - Afr Amer 29 mL/min (>60); Estimated Creatinine Clearance 34.49 ml/min; Globulin 4.2 g/dL (2.2-4.2); Glucose 311 mg/dL (74-106); High Density Lipoprotein 48 mg/dL; Protein, Total 7.1 g/dL (6.4-8.2); Sodium Level 131 mmol/L (136-145); Triglycerides 125 mg/dL; Very Low Density Lipoprotein 25 mg/dL (5-40)
[2020-03-19 04:06] LABS: Differential Indicated SCAN CRITERIA MET
[2020-03-19 04:32] LABS: Differential Comment SCANNED; Ovalocyte RARE
[2020-03-19] MEDS: Ipratropium/Albuterol Sulfate 3 ML AMPUL.NEB INHALATION ×3 (05:02→19:30)
--- NOTE | 2020-03-19 05:55 | EKG12_ITS ---
Test Reason : Blood Pressure : / mmHG Vent. Rate : 087 BPM Atrial Rate : 087 BPM P-R Int : 158 ms QRS Dur : 094 ms QT Int : 402 ms P-R-T Axes : 082 -63 148 degrees QTc Int : 483 ms Normal sinus rhythm Possible Left atrial enlargement Left axis deviation Low voltage QRS Inferior infarct , age undetermined Cannot rule out Anteroseptal infarct , age undetermined ST & T wave abnormality, consider lateral ischemia Abnormal ECG Confirmed by ANDREA GARCIA, JOE ([id number]), editor school photograph PRACHI MARIA ([id number]) on 03/23/2020 12:33:39 PM Referred By: AGUILA Confirmed By:JOE MENDEZ MD
[2020-03-19] MEDS: Insulin Lispro 100 UNIT/ML INSULN.PEN SC ×6 (08:17→16:41)
[2020-03-19] MEDS: Heparin Injection (Vial) 5,000 UNIT/ML VIAL 5000 UNIT SC ×2 (08:19→21:14)
[2020-03-19] MEDS: Furosemide 40 MG/4 ML Vial IV ×2 (08:19→16:50)
[2020-03-19 10:00] LABS: Bedside Glucose 297 mg/dL (70-110)
[2020-03-19] MEDS: oxyCODONE 5 MG Tablet PO ×3 (10:20→23:30)
--- NOTE | 2020-03-19 10:42 | CASEMGMT ---
Patient is from [facility] retirement not assisted living. SW called and verified this with facility. Patient will require a COVID test within 72 hours of discharge. JAX notified Nurse Practitioner Indu Tolbert. [facility] faxed updates to [facility]. SW to follow for d/c back to [facility]. Plan: d/c back to [facility]. Per [facility] even though patient is intermediate she will require insurance authorization if she would return skilled. 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 Shanique CONNOR CIVIL PROCESS SERVER
[2020-03-19 11:56] LABS: Bedside Glucose 247 mg/dL (70-110)
--- NOTE | 2020-03-19 12:29 | PN_ITS ---
<LeleIndu CERAMIC ARTIST - Last Filed: 03/19/20 12:39> Patient Problems: Active and Suspected Problems (Last Reviewed 01/21/20 @ 10:[address] Jacob martinez MD) Acute exacerbation of CHF (congestive heart failure) (Acute) Acute kidney injury superimposed on CKD (Acute) Congestive heart failure (Acute) Hyperkalemia (Acute) Subjective: Patient seen and examined. Reports mild improvement in shortness of breath. Notes continued lower extremity swelling which is worse than her baseline. Denies chest pain. Denies other symptoms or complaints. Denies further abdominal pain. Denies nausea, vomiting. - Physical Exam Vitals/I&O's: Vital Signs Temp Pulse Resp BP Pulse Ox 97.6 F L 79 16 136/87 H 98 03/19/20 08:12 03/19/20 11:40 03/19/20 11:40 03/19/20 08:12 03/19/20 08:12 Oxygen Flow Rate (L/min) 2 Oxygen Delivery Method Nasal Cannula Weight: 186 lb 8.177 oz Body Mass Index (BMI) 37.3 Intake and Output for Last 24 Hours 03/17/20 03/18/20 03/19/20 23:59 23:59 23:59 Intake Total 450 / 450 Output Total 200 / 200 Balance 250 / 250 General: Alert, Oriented x3, Cooperative HEENT: Atraumatic, PERRLA, EOMI, Normocephalic Neck: Supple, No JVD, Negative Carotid Bruits Lungs: Clear to auscultation, Diminished Cardiovascular: Regular rate, No murmurs Abdomen: Bowel Sounds Present, Soft, Non Tender, Non-Distended Extremities: No clubbing, No cyanosis, Edema - +3 bilateral lower extremities Skin: No rashes, No breakdown Musculoskeletal: No Tenderness to Palpation of Joints or Extremities Neurological: Cranial nerves II-XII grossly intact, Neuro grossly intact Psych/Mental Status: Flat Affect Laboratory Results 03/18/20 16:10: WBC 9.5, RBC 3.45 L, Hgb 8.6 L, Hct 28.4 L, MCV 82.3, MCH 24.9 L , MCHC 30.3 L, RDW Std Deviation 68.2 H, RDW Coeff of Jade 23.1 H, Plt Count 345, MPV 10.0, Immature Gran % (Auto) 0.500, Neut % (Auto) 92.5 H, Lymph % (Auto) 4.1 L, [place] % (Auto) 2.8, Eos % (Auto) 0.0, Baso % (Auto) 0.1, Absolute Neuts (auto) 8.8 H, Absolute Lymphs (auto) 0.39 L, Nucleated RBC % 0, Differential Comment COMMENT, Platelet Estimate ADEQUATE, Anisocytosis 1+ 03/18/20 16:10: Sodium 132 L, Potassium 5.4 H, Chloride 101, Carbon Dioxide 22.0, Anion Gap 9, BUN 36 H, Creatinine 2.18 H, Estim Creat Clear Calc 37.21, Est GFR (MDRD) Af Amer 29 L, Est GFR (MDRD) Non-Af 24 L, BUN/Creatinine Ratio 16.5, Glucose 354 H, Calcium 8.5, Total Bilirubin 0.30, AST 20, ALT 35, Alkaline Phosphatase 198 H, Troponin I 0.023, Total Protein 7.0, Albumin 2.7 L, Globulin 4.3 H, Albumin/Globulin Ratio 0.6 L 03/18/20 16:10: B-Natriuretic Peptide > 5000.0 H 03/18/20 20:34: Magnesium 2.5, Troponin I < 0.015, TSH 0.71 03/18/20 21:43: POC Glucose 398 H 03/18/20 23:21: Troponin I 0.015 03/19/20 03:14: WBC 8.1, RBC 3.62 L, Hgb 9.1 L, Hct 30.1 L, MCV 83.1, MCH 25.1 L , MCHC 30.2 L, RDW Std Deviation 69.6 H, RDW Coeff of Jade 23.1 H, Plt Count 324, MPV 9.3, Immature Gran % (Auto) 0.600, Neut % (Auto) 85.1 H, Lymph % (Auto) 8.4 L, [place] % (Auto) 5.8, Eos % (Auto) 0.0, Baso % (Auto) 0.1, Absolute Neuts (auto) 6.9, Absolute Lymphs (auto) 0.68 L, Nucleated RBC % 0, Differential Comment SCANNED, Ovalocytes RARE 03/19/20 03:14: Sodium 131 L, Potassium 5.0, Chloride 99, Carbon Dioxide 23.0, Anion Gap 9, BUN 39 H, Creatinine 2.18 H, Estim Creat Clear Calc 34.49, Est GFR (MDRD) Af Amer 29 L, Est GFR (MDRD) Non-Af 24 L, BUN/Creatinine Ratio 17.9, Glucose 311 H, Calcium 8.4 L, Total Bilirubin 0.30, AST 13 L, ALT 33, Alkaline Phosphatase 185 H, Total Protein 7.1, Albumin 2.9 L, Globulin 4.2, Albumin/Globulin Ratio 0.7 L, Triglycerides 125, Cholesterol 89, LDL Cholesterol 16, VLDL Cholesterol 25, HDL Cholesterol 48 03/19/20 03:14: Hemoglobin A1c 7.0 H 03/19/20 03:14: Troponin I < 0.015 03/19/20 08:09: POC Glucose 297 H 03/19/20 11:33: POC Glucose 247 H Current Medications Acetaminophen (Acetaminophen 325 Mg Tablet) 650 mg PO Q6H PRN PRN PRN Reason: Pain Score 1-10/Temp > 100.7 F Al Hydroxide/Mg Hydroxide (Mag Hydrox/Al Hydrox/Simeth 30 Ml Udc) 30 ml PO Q6H PRN PRN PRN Reason: Gastric Burning Albuterol Sulfate (Albuterol 2.5 Mg/3 Ml Vial.Neb.) 2.5 mg INHALATION Q2H PRN PRN PRN Reason: Dyspnea, wheezing Albuterol/Ipratropium (Ipratropium/Albuterol Sulfate 3 Ml Ampul.Neb) 3 ml INHALATION Q6HWA.RT [facility] Last Admin: 03/19/20 11:40 Dose: 3 ml Documented by: Dextrose (Dextrose 50%-Water 25 Gm/50 Ml Disp.Syrin) 0 gm IV X1 PRN; Protocol PRN Reason: Hypoglycemia Furosemide (Furosemide 40 Mg/4 Ml Vial) 40 mg IV BID@1000,1800 [facility] Last Admin: 03/19/20 08:19 Dose: 40 mg Documented by: Glucagon (Glucagon 1 Mg/Ml Syringe) 1 mg IM .X1 PRN PRN Reason: Hypoglycemia Guaifenesin (Guaifenesin 10 Ml Udc (200mg/10ml)) 20 ml PO Q4H PRN PRN PRN Reason: COUGH Heparin Sodium (Porcine) (Heparin Injection (Vial) 5,000 Unit/Ml Vial) 5,000 unit SC Q12 [facility] Last Admin: 03/19/20 08:19 Dose: 5,000 unit Documented by: Insulin Glargine (Insulin Glargine 100 Units/Ml Pen) 10 units SC 1100,2200 [facility] Last Admin: 03/19/20 11:37 Dose: 10 units Documented by: Insulin Human Lispro (Insulin Lispro 100 Unit/Ml Insuln.Pen) 0 unit SC ACHS [facility]; Protocol Last Admin: 03/19/20 11:36 Dose: 3 units Documented by: Insulin Human Lispro (Insulin Lispro 100 Unit/Ml Insuln.Pen) 5 unit SC TIDAC [facility] Last Admin: 03/19/20 11:35 Dose: 5 u Documented by: Magnesium Hydroxide (Magnesium Hydroxide 30 Ml Udc) 30 ml PO DAILY PRN PRN PRN Reason: Constipation Morphine Sulfate (Morphine 2 Mg/Ml Syringe) 2 mg IV Q3H PRN PRN PRN Reason: Pain Score 6-10 Last Admin: 03/19/20 03:10 Dose: 2 mg Documented by: Nitroglycerin (Nitroglycerin (Inpatient Use) 0.4 Mg Tab.Subl) 0.4 mg SUBLINGUAL Q5M PRN PRN Reason: CARDIAC/CHEST PAIN Ondansetron HCl (Ondansetron 4 Mg/2 Ml Vial) 4 mg IV Q8H PRN PRN PRN Reason: NAUSEA/VOMITING Oxycodone HCl (Oxycodone 5 Mg Tablet) 5 mg PO Q4H PRN PRN PRN Reason: Pain Score 4-5 Last Admin: 03/19/20 10:20 Dose: 5 mg Documented by: Prochlorperazine Edisylate (Prochlorperazine 10 Mg/2 Ml Vial) 5 mg IV Q4H PRN PRN PRN Reason: Breakthrough Nausea/Vomiting Psyllium Hydrophilic Mucilloid (Psyllium 1 Packet) 1 packet PO DAILY PRN PRN PRN Reason: Constipation Senna/Docusate Sodium (Senna/Docusate Sodium 1 Tablet) 2 tablet PO BID PRN PRN PRN Reason: Constipation Sodium Chloride (0.9% Saline Lock 10 Ml Syringe) 10 - 40 ml IV UD PRN PRN Reason: SALINE FLUSH Throat Lozenges (Benzocaine/Menthol 1 Lozenge) 1 lozenge MUCOUS MEM Q2H PRN PRN PRN Reason: SORE THROAT Medical Necessity - Tobacco Use Smoking Status: Former smoker Tobacco Use: Non-smoker Assessment/Plan All Active Problems (Last Reviewed 01/21/20 @ 10:[address] Jacob Byrd MD) Acute exacerbation of CHF (congestive heart failure) (Acute) Hypoxia (Acute) Dyspnea (Acute) Acute kidney injury superimposed on CKD (Acute) Congestive heart failure (Acute) Hyperkalemia (Acute) Dyspnea on exertion (Acute) Orthopnea (Acute) History of coronary artery stent placement (Resolved 05/18/18) Acute exacerbation of CHF (congestive heart failure) (Resolved) Acute on chronic combined systolic (congestive) and diastolic (congestive) heart failure (Resolved) Acute respiratory failure with hypoxia (Resolved) CHF exacerbation (Resolved) COPD exacerbation (Resolved) COPD exacerbation (Resolved) Chronic ulcer of buttock (Resolved) Flash pulmonary edema (Resolved) 1. Acute combined systolic/diastolic CHF with chronic hypoxic respiratory failure-BNP greater than 5000. Echocardiogram June 2019 demonstrated an EF of 45%, stage I diastolic dysfunction, RVSP 55 mmHg. Repeat echocardiogram pending. IV Lasix. Strict I&O. Daily weight. On baseline home O2 requirements. Continue supplement oxygen to maintain O2 at above 90%. 2. Acute kidney injury on chronic kidney disease stage III-continue diuresis, trend BMP. 3. Right upper quadrant pain/elevated alk phos-unclear etiology. Denies nausea, vomiting. Alk phos trending down. Abdominal ultrasound demonstrates gallstones and mild gallbladder wall thickening. Negative Farias sign. Hepatomegaly and diffuse increased hepatic echogenicity which may indicate steatosis versus hepatocellular disease. Patient denies further pain this morning. If recurrent pain, consider general surgery consult. 4. Hypervolemic hyponatremia-continue Lasix, trend BMP. 5. Type 2 diabetes mellitus-hemoglobin A1c 7%. Continue Accu-Cheks with sliding scale insulin. Continue home Lantus regimen. 6. Anxiety/depression-continue BuSpar, sertraline. 7. Carotid artery disease-history of right carotid endarterectomy. Continue aspirin, Plavix, statin. 8. Hypertension-stable, continue metoprolol. Lisinopril, Lasix, spironolactone on hold due to acute kidney injury. 9. Hyperlipidemia-continue statin. 10. Morbid obesity-encouraged diet lifestyle modifications. 11. Former tobacco use-encouraged continued cessation. 12. History of CVA-continue aspirin, Plavix, statin. 13. Chronic normocytic anemia-at baseline, trend CBC. DVT prophylaxis-Heparin, SCDs This patient was seen by ORIN Hadley under the supervision of Dr. Byrd. <Jacob Byrd - Last Filed: 03/19/20 13:26> - Physical Exam Vitals/I&O's: Vital Signs Temp Pulse Resp BP Pulse Ox 97.6 F L 79 16 136/87 H 98 03/19/20 08:12 03/19/20 11:40 03/19/20 11:40 03/19/20 08:12 03/19/20 08:12 Oxygen Flow Rate (L/min) 2 Oxygen Delivery Method Nasal Cannula Weight: 84.6 kg Body Mass Index (BMI) 37.3 Intake and Output for Last 24 Hours 03/17/20 03/18/20 03/19/20 23:59 23:59 23:59 Intake Total 930 / 930 Output Total 500 / 500 Balance 430 / 430 Laboratory Results 03/18/20 16:10: WBC 9.5, RBC 3.45 L, Hgb 8.6 L, Hct 28.4 L, MCV 82.3, MCH 24.9 L , MCHC 30.3 L, RDW Std Deviation 68.2 H, RDW Coeff of Jade 23.1 H, Plt Count 345, MPV 10.0, Immature Gran % (Auto) 0.500, Neut % (Auto) 92.5 H, Lymph % (Auto) 4.1 L, [place] % (Auto) 2.8, Eos % (Auto) 0.0, Baso % (Auto) 0.1, Absolute Neuts (auto) 8.8 H, Absolute Lymphs (auto) 0.39 L, Nucleated RBC % 0, Differential Comment COMMENT, Platelet Estimate ADEQUATE, Anisocytosis 1+ 03/18/20 16:10: Sodium 132 L, Potassium 5.4 H, Chloride 101, Carbon Dioxide 22.0, Anion Gap 9, BUN 36 H, Creatinine 2.18 H, Estim Creat Clear Calc 37.21, Est GFR (MDRD) Af Amer 29 L, Est GFR (MDRD) Non-Af 24 L, BUN/Creatinine Ratio 16.5, Glucose 354 H, Calcium 8.5, Total Bilirubin 0.30, AST 20, ALT 35, Alkaline Phosphatase 198 H, Troponin I 0.023, Total Protein 7.0, Albumin 2.7 L, Globulin 4.3 H, Albumin/Globulin Ratio 0.6 L 03/18/20 16:10: B-Natriuretic Peptide > 5000.0 H 03/18/20 20:34: Magnesium 2.5, Troponin I < 0.015, TSH 0.71 03/18/20 21:43: POC Glucose 398 H 03/18/20 23:21: Troponin I 0.015 03/19/20 03:14: WBC 8.1, RBC 3.62 L, Hgb 9.1 L, Hct 30.1 L, MCV 83.1, MCH 25.1 L , MCHC 30.2 L, RDW Std Deviation 69.6 H, RDW Coeff of Jade 23.1 H, Plt Count 324, MPV 9.3, Immature Gran % (Auto) 0.600, Neut % (Auto) 85.1 H, Lymph % (Auto) 8.4 L, [place] % (Auto) 5.8, Eos % (Auto) 0.0, Baso % (Auto) 0.1, Absolute Neuts (auto) 6.9, Absolute Lymphs (auto) 0.68 L, Nucleated RBC % 0, Differential Comment SCANNED, Ovalocytes RARE 03/19/20 03:14: Sodium 131 L, Potassium 5.0, Chloride 99, Carbon Dioxide 23.0, Anion Gap 9, BUN 39 H, Creatinine 2.18 H, Estim Creat Clear Calc 34.49, Est GFR (MDRD) Af Amer 29 L, Est GFR (MDRD) Non-Af 24 L, BUN/Creatinine Ratio 17.9, Glucose 311 H, Calcium 8.4 L, Total Bilirubin 0.30, AST 13 L, ALT 33, Alkaline Phosphatase 185 H, Total Protein 7.1, Albumin 2.9 L, Globulin 4.2, Albumin/Globulin Ratio 0.7 L, Triglycerides 125, Cholesterol 89, LDL Cholesterol 16, VLDL Cholesterol 25, HDL Cholesterol 48 03/19/20 03:14: Hemoglobin A1c 7.0 H 03/19/20 03:14: Troponin I < 0.015 03/19/20 08:09: POC Glucose 297 H 03/19/20 11:33: POC Glucose 247 H Current Medications Acetaminophen (Acetaminophen 325 Mg Tablet) 650 mg PO Q6H PRN PRN PRN Reason: Pain Score 1-10/Temp > 100.7 F Al Hydroxide/Mg Hydroxide (Mag Hydrox/Al Hydrox/Simeth 30 Ml Udc) 30 ml PO Q6H PRN PRN PRN Reason: Gastric Burning Albuterol Sulfate (Albuterol 2.5 Mg/3 Ml Vial.Neb.) 2.5 mg INHALATION Q2H PRN PRN PRN Reason: Dyspnea, wheezing Albuterol/Ipratropium (Ipratropium/Albuterol Sulfate 3 Ml Ampul.Neb) 3 ml INHALATION Q6HWA.RT [facility] Last Admin: 03/19/20 11:40 Dose: 3 ml Documented by: Dextrose (Dextrose 50%-Water 25 Gm/50 Ml Disp.Syrin) 0 gm IV X1 PRN; Protocol PRN Reason: Hypoglycemia Furosemide (Furosemide 40 Mg/4 Ml Vial) 40 mg IV BID@1000,1800 [facility] Last Admin: 03/19/20 08:19 Dose: 40 mg Documented by: Glucagon (Glucagon 1 Mg/Ml Syringe) 1 mg IM .X1 PRN PRN Reason: Hypoglycemia Guaifenesin (Guaifenesin 10 Ml Udc (200mg/10ml)) 20 ml PO Q4H PRN PRN PRN Reason: COUGH Heparin Sodium (Porcine) (Heparin Injection (Vial) 5,000 Unit/Ml Vial) 5,000 unit SC Q12 [facility] Last Admin: 03/19/20 08:19 Dose: 5,000 unit Documented by: Insulin Glargine (Insulin Glargine 100 Units/Ml Pen) 10 units SC 1100,2200 [facility] Last Admin: 03/19/20 11:37 Dose: 10 units Documented by: Insulin Human Lispro (Insulin Lispro 100 Unit/Ml Insuln.Pen) 0 unit SC ACHS [facility]; Protocol Last Admin: 03/19/20 11:36 Dose: 3 units Documented by: Insulin Human Lispro (Insulin Lispro 100 Unit/Ml Insuln.Pen) 5 unit SC TIDAC [facility] Last Admin: 03/19/20 11:35 Dose: 5 u Documented by: Magnesium Hydroxide (Magnesium Hydroxide 30 Ml Udc) 30 ml PO DAILY PRN PRN PRN Reason: Constipation Morphine Sulfate (Morphine 2 Mg/Ml Syringe) 2 mg IV Q3H PRN PRN PRN Reason: Pain Score 6-10 Last Admin: 03/19/20 03:10 Dose: 2 mg Documented by: Nitroglycerin (Nitroglycerin (Inpatient Use) 0.4 Mg Tab.Subl) 0.4 mg SUBLINGUAL Q5M PRN PRN Reason: CARDIAC/CHEST PAIN Ondansetron HCl (Ondansetron 4 Mg/2 Ml Vial) 4 mg IV Q8H PRN PRN PRN Reason: NAUSEA/VOMITING Oxycodone HCl (Oxycodone 5 Mg Tablet) 5 mg PO Q4H PRN PRN PRN Reason: Pain Score 4-5 Last Admin: 03/19/20 10:20 Dose: 5 mg Documented by: Prochlorperazine Edisylate (Prochlorperazine 10 Mg/2 Ml Vial) 5 mg IV Q4H PRN PRN PRN Reason: Breakthrough Nausea/Vomiting Psyllium Hydrophilic Mucilloid (Psyllium 1 Packet) 1 packet PO DAILY PRN PRN PRN Reason: Constipation Senna/Docusate Sodium (Senna/Docusate Sodium 1 Tablet) 2 tablet PO BID PRN PRN PRN Reason: Constipation Sodium Chloride (0.9% Saline Lock 10 Ml Syringe) 10 - 40 ml IV UD PRN PRN Reason: SALINE FLUSH Throat Lozenges (Benzocaine/Menthol 1 Lozenge) 1 lozenge MUCOUS MEM Q2H PRN PRN PRN Reason: SORE THROAT Assessment/Plan This patient was seen in conjunction with ORIN Hadley . I have independently interviewed and examined the patient and reviewed pertinent historical, laboratory, and other data. Please refer to ORIN Hadley note for details of this patient's presentation, findings, and recommendations. I have reviewed ORIN Hadley note and concur with documented findings. In brief, patient is a 84-year-old lady with known history of congestive heart failure with reduced ejection fraction admitted with progressive shortness of breath. An assessment of acute on chronic CHF made admitted to monitored bed for further management Physical Examination: GENERAL: cooperative HEENT: Atraumatic; EYES; Anicteric, Normal Conjunctiva NECK; supple, normal thyroid, RESPIRATORY: Diminished to auscultation CARDIOVASCULAR: Regular S1 S2, GI: soft, normoactive bowel sounds, : No Renal angle tenderness; EXTREMITIES: 2+ bipedal edema MUSCULOSKELETAL: no muscle waisting NEURO: Awake; no lateralizing signs. SKIN: No Rash PSYCH; Flat affect Assessment: 1. Acute congestive heart failure with reduced ejection fraction 2. Coronary artery disease with previous PCI involving an LAD lesion 3. Kidney injury superimposed on chronic kidney disease stage III 4. Valvular heart disease with history of severe eccentric mitral valve regurgitation 5. Dyslipidemia 6. Diabetes mellitus type 2 7. Essential hypertension 8. COPD 9. Depression 10. Peripheral arterial disease with previous history of right carotid endarterectomy as well as angioplasty involving the popliteal and superficial femoral artery 11. Hyponatremia ?Secondary to fluid overload 12. History of previous CVA 13. Morbid obesity with BMI of 37.7 Recommendations: 1. I have discussed the results of my overview and impressions with the patient 2. Options for management were reviewed Inpatient E&M: [id number] [facility] L3
[2020-03-19 16:55] LABS: Bedside Glucose 154 mg/dL (70-110)
[2020-03-19 18:35] LABS: Mucous, Urine 0 SEEN /hpf (<or=2+); Red Blood Cells-Urine 0 SEEN /hpf (0-5); Squamous Epithelial Cells - UA 0 SEEN /hpf (5-10)
[2020-03-19 18:54] LABS: Color, Urine Straw (Yellow); Glucose, Dipstick Normal (Normal); Ketone-Dipstick Negative (Negative); Leukocyte Esterase-Dipstick 500 /ul (Negative); Nitrite-Dipstick Positive (Negative); Occult Blood-Urine 10 /ul (Negative); Protein-Dipstick Negative (Negative); Specific Gravity, Urine 1.005 (1.002-1.030); Urine Bilirubin Dipstick Negative (Negative); Urine Clarity Clear (Clear); Urine Urobilinogen Normal (Normal); Urine pH 6.5 (5.0 - 8.0)
[2020-03-19 19:11] LABS: Bacteria 1+ /hpf (None Seen)
[2020-03-19 19:12] LABS: White Blood Cells 0-5 SEEN /hpf (0-5)
[2020-03-19 21:55] LABS: Bedside Glucose 118 mg/dL (70-110)
[2020-03-20] VITALS (12 sets, daily range): BP systolic 107–148; BP diastolic 63–66; PULSE 75–110; RESP 16–20; TEMP 36.8–37.1; O2SAT 95–100
[2020-03-20] MEDS: Ipratropium/Albuterol Sulfate 3 ML AMPUL.NEB INHALATION ×2 (06:55→12:52)
[2020-03-20 07:15] LABS: Anion Gap 7 (5-15); BUN 42 mg/dL (7-18); BUN/Creat Ratio 20.6 RATIO (10-20); Calcium,Total 8.5 mg/dL (8.5-10.1); Chloride 103 mmol/L (98-107); Creatinine, Serum 2.04 mg/dL (0.55-1.02); EST Glomerular Filtration Rate 26 mL/min (>60); Est Glom Filt Rate - Afr Amer 32 mL/min (>60); Estimated Creatinine Clearance 37.12 ml/min; Glucose 101 mg/dL (74-106); Potassium 4.5 mmol/L (3.5-5.1); Sodium Level 133 mmol/L (136-145)
[2020-03-20 07:45] LABS: Mean Corp Hgb Conc 29.6 g/dL (32-36); Mean Corpuscular Hgb 25.2 pg (27.0-32.0); Mean Corpuscular Volume 84.9 fL (81-99); POSITIVE MORPHOLOGY YES; Platelet Count 297 K/mm3 (150-450); RBC Distribution Width CV 23.8 % (11.6-14.6); RBC Distribution Width SD 72.3 fl (35.1-43.9); Red Blood Count 3.18 M/mm3 (4.2-5.4); White Blood Count 8.8 K/mm3 (4.4-11.0)
[2020-03-20 08:10] LABS: Scan Indicated on CBC? Y/N YES- FLAGS NOTED
[2020-03-20] MEDS: Insulin Lispro 100 UNIT/ML INSULN.PEN SC ×3 (10:07→18:14)
[2020-03-20] MEDS: Heparin Injection (Vial) 5,000 UNIT/ML VIAL 5000 UNIT SC ×2 (10:08→21:30)
[2020-03-20] MEDS: 0.9% Saline Lock 10 ML Syringe IV ×4 (10:12→22:30)
[2020-03-20 10:25] LABS: Bedside Glucose 107 mg/dL (70-110)
--- NOTE | 2020-03-20 11:09 | CASEMGMT ---
JAX spoke with Karin from [facility]. SW let her know patient refused to get up with therapy so they will not be able to skill her. Patient can return when ready and does not need a pre-cert. Plan: d/c back to [facility] under intermediate level of care. Shanique CONNOR MSW
--- NOTE | 2020-03-20 11:27 | CASEMGMT ---
JAX let patient know when she returns to [facility] she will be in a private room to quarantine for 14 days. She asked why and JAX told her that all nursing homes have to quarantine their patient's when they leave the building especially when they come to the hospital. She thanked JAX for letting her know this information. Shanique MARTIN
--- NOTE | 2020-03-20 11:34 | CASEMGMT ---
Karin from [facility] called SW. She said per their SW patient will require pre-cert to return to [facility] even if she is returning under intermediate level of care. Shanique CONNOR MSW
--- NOTE | 2020-03-20 11:40 | PN_ITS ---
<LeleIndu DEBURR TECHNICIAN - Last Filed: 03/20/20 11:52> Patient Problems: Active and Suspected Problems (Last Reviewed 01/21/20 @ 10:[address] Jacob martinez MD) Acute exacerbation of CHF (congestive heart failure) (Acute) Acute kidney injury superimposed on CKD (Acute) Congestive heart failure (Acute) Hyperkalemia (Acute) Subjective: Patient seen and examined. Reports improvement in breathing. Lower extremity swelling improving. Patient denies abdominal pain, nausea, vomiting. Denies urinary symptoms. - Physical Exam Vitals/I&O's: Vital Signs Temp Pulse Resp BP Pulse Ox 98.3 F 91 20 H 148/64 H 100 03/20/20 10:00 03/20/20 10:00 03/20/20 10:00 03/20/20 10:00 03/20/20 10:00 Oxygen Flow Rate (L/min) 2 Oxygen Delivery Method Nasal Cannula Weight: 186 lb 1.122 oz Body Mass Index (BMI) 37.3 Intake and Output for Last 24 Hours 03/18/20 03/19/20 03/20/20 23:59 23:59 23:59 Intake Total 1650 / 2100 450 / 450 Output Total 1650 / 1950 900 / 900 Balance 0 / 150 -450 / -450 General: Alert, Oriented x3, Cooperative HEENT: Atraumatic, PERRLA, EOMI, Normocephalic Neck: Supple, No JVD, Negative Carotid Bruits Lungs: Clear to auscultation, Diminished Cardiovascular: Regular rate, No murmurs Abdomen: Bowel Sounds Present, Soft, Non Tender, Non-Distended Extremities: No clubbing, No cyanosis, Capillary Refill Less than 3 Seconds, Edema - +2 BLLE Skin: No rashes, No breakdown Musculoskeletal: No Tenderness to Palpation of Joints or Extremities Neurological: Cranial nerves II-XII grossly intact, Neuro grossly intact Psych/Mental Status: Flat Affect Laboratory Results 03/19/20 11:33: POC Glucose 247 H 03/19/20 16:40: POC Glucose 154 H 03/19/20 18:30: Urine Color Straw, Urine Clarity Clear, Urine pH 6.5, Ur Speci fic [place] 1.005, Urine Protein Negative, Urine Glucose (UA) Normal, Urine Ketones Negative, Urine Occult Blood 10 H, Urine Nitrite Positive H, Urine Bilirubin Negative, Urine Urobilinogen Normal, Ur Leukocyte Esterase 500 H, Urine RBC 0 SEEN, Urine WBC 0-5 SEEN, Ur Squamous Epith Cells 0 SEEN, Urine Bacteria 1+, Urine Mucus 0 SEEN 03/19/20 21:11: POC Glucose 118 H 03/20/20 05:34: WBC Cancelled, Corrected WBC Cancelled, RBC Cancelled, Hgb Cancelled, Hct Cancelled, MCV Cancelled, MCH Cancelled, MCHC Cancelled, RDW Std Deviation Cancelled, RDW Coeff of Jade Cancelled, Plt Count Cancelled, MPV Cancelled, Diff Path Review Cancelled 03/20/20 05:34: Sodium 133 L, Potassium 4.5, Chloride 103, Carbon Dioxide 23.0, Anion Gap 7, BUN 42 H, Creatinine 2.04 H, Estim Creat Clear Calc 37.12, Est GFR (MDRD) Af Amer 32 L, Est GFR (MDRD) Non-Af 26 L, BUN/Creatinine Ratio 20.6 H, Glucose 101, Calcium 8.5 03/20/20 07:32: WBC 8.8, RBC 3.18 L, Hgb 8.0 L, Hct 27.0 L, MCV 84.9, MCH 25.2 L , MCHC 29.6 L, RDW Std Deviation 72.3 H, RDW Coeff of Jade 23.8 H, Plt Count 297, MPV 9.0, Differential Comment YES, 03/20/20 10:02: POC Glucose 107 03/20/20 10:37: COVID-19 (MICHELLE) Pending Current Medications Acetaminophen (Acetaminophen 325 Mg Tablet) 650 mg PO Q6H PRN PRN PRN Reason: Pain Score 1-10/Temp > 100.7 F Al Hydroxide/Mg Hydroxide (Mag Hydrox/Al Hydrox/Simeth 30 Ml Udc) 30 ml PO Q6H PRN PRN PRN Reason: Gastric Burning Albuterol Sulfate (Albuterol 2.5 Mg/3 Ml Vial.Neb.) 2.5 mg INHALATION Q2H PRN PRN PRN Reason: Dyspnea, wheezing Albuterol/Ipratropium (Ipratropium/Albuterol Sulfate 3 Ml Ampul.Neb) 3 ml INHALATION Q6HWA.RT ALBERTO Last Admin: 03/20/20 06:55 Dose: 3 ml Documented by: Dextrose (Dextrose 50%-Water 25 Gm/50 Ml Disp.Syrin) 0 gm IV X1 PRN; Protocol PRN Reason: Hypoglycemia Furosemide (Furosemide 40 Mg/4 Ml Vial) 40 mg IV BID@1000,1800 [facility] Last Admin: 03/19/20 16:50 Dose: 40 mg Documented by: Glucagon (Glucagon 1 Mg/Ml Syringe) 1 mg IM .X1 PRN PRN Reason: Hypoglycemia Guaifenesin (Guaifenesin 10 Ml Udc (200mg/10ml)) 20 ml PO Q4H PRN PRN PRN Reason: COUGH Heparin Sodium (Porcine) (Heparin Injection (Vial) 5,000 Unit/Ml Vial) 5,000 unit SC Q12 [facility] Last Admin: 03/20/20 10:08 Dose: 5,000 unit Documented by: Insulin Glargine (Insulin Glargine 100 Units/Ml Pen) 10 units SC 1100,2200 [facility] Last Admin: 03/20/20 10:07 Dose: 10 units Documented by: Insulin Human Lispro (Insulin Lispro 100 Unit/Ml Insuln.Pen) 0 unit SC ACHS [facility]; Protocol Last Admin: 03/20/20 10:06 Dose: Not Given Documented by: Insulin Human Lispro (Insulin Lispro 100 Unit/Ml Insuln.Pen) 5 unit SC TIDAC [facility] Last Admin: 03/20/20 10:07 Dose: 5 u Documented by: Magnesium Hydroxide (Magnesium Hydroxide 30 Ml Udc) 30 ml PO DAILY PRN PRN PRN Reason: Constipation Morphine Sulfate (Morphine 2 Mg/Ml Syringe) 2 mg IV Q3H PRN PRN PRN Reason: Pain Score 6-10 Last Admin: 03/19/20 03:10 Dose: 2 mg Documented by: Nitroglycerin (Nitroglycerin (Inpatient Use) 0.4 Mg Tab.Subl) 0.4 mg SUBLINGUAL Q5M PRN PRN Reason: CARDIAC/CHEST PAIN Ondansetron HCl (Ondansetron 4 Mg/2 Ml Vial) 4 mg IV Q8H PRN PRN PRN Reason: NAUSEA/VOMITING Oxycodone HCl (Oxycodone 5 Mg Tablet) 5 mg PO Q4H PRN PRN PRN Reason: Pain Score 4-5 Last Admin: 03/19/20 23:30 Dose: 5 mg Documented by: Prochlorperazine Edisylate (Prochlorperazine 10 Mg/2 Ml Vial) 5 mg IV Q4H PRN PRN PRN Reason: Breakthrough Nausea/Vomiting Psyllium Hydrophilic Mucilloid (Psyllium 1 Packet) 1 packet PO DAILY PRN PRN PRN Reason: Constipation Senna/Docusate Sodium (Senna/Docusate Sodium 1 Tablet) 2 tablet PO BID PRN PRN PRN Reason: Constipation Sodium Chloride (0.9% Saline Lock 10 Ml Syringe) 10 - 40 ml IV UD PRN PRN Reason: SALINE FLUSH Last Admin: 03/20/20 10:12 Dose: 10 ml Documented by: Throat Lozenges (Benzocaine/Menthol 1 Lozenge) 1 lozenge MUCOUS MEM Q2H PRN PRN PRN Reason: SORE THROAT Medical Necessity - Tobacco Use Smoking Status: Former smoker Tobacco Use: Non-smoker Assessment/Plan All Active Problems (Last Reviewed 01/21/20 @ 10:[address] Jacob Byrd MD) Acute exacerbation of CHF (congestive heart failure) (Acute) Hypoxia (Acute) Dyspnea (Acute) Acute kidney injury superimposed on CKD (Acute) Congestive heart failure (Acute) Hyperkalemia (Acute) Dyspnea on exertion (Acute) Orthopnea (Acute) History of coronary artery stent placement (Resolved 05/18/18) Acute exacerbation of CHF (congestive heart failure) (Resolved) Acute on chronic combined systolic (congestive) and diastolic (congestive) heart failure (Resolved) Acute respiratory failure with hypoxia (Resolved) CHF exacerbation (Resolved) COPD exacerbation (Resolved) COPD exacerbation (Resolved) Chronic ulcer of buttock (Resolved) Flash pulmonary edema (Resolved) 1. Acute combined systolic/diastolic CHF with chronic hypoxic respiratory failure-BNP greater than 5000. Echocardiogram June 2019 demonstrated an EF of 45%, stage I diastolic dysfunction, RVSP 55 mmHg. Repeat echocardiogram report pending. Patient down approximately 13 pounds since admission. Lower extremity swelling improving. Continue IV Lasix. Strict I&O. Daily weight. On baseline home O2 requirements. Continue supplement oxygen to maintain O2 at above 90%. 2. Acute kidney injury on chronic kidney disease stage III-continue diuresis, trend BMP. 3. Right upper quadrant pain/elevated alk phos-unclear etiology. Denies nausea, vomiting. Alk phos trending down. Abdominal ultrasound demonstrates gallstones and mild gallbladder wall thickening. Negative Farias sign. Hepato megaly and diffuse increased hepatic echogenicity which may indicate steatosis versus hepatocellular disease. Patient denies further pain. If recurrent pain, consider general surgery consult. 4. Hypervolemic hyponatremia-continue Lasix, trend BMP. 5. Type 2 diabetes mellitus-hemoglobin A1c 7%. Continue Accu-Cheks with sliding scale insulin. Continue home Lantus regimen. 6. Anxiety/depression-continue BuSpar. 7. Carotid artery disease-history of right carotid endarterectomy. Continue aspirin, Plavix, statin. 8. Hypertension-stable, continue metoprolol. Lisinopril, Lasix, spironolactone on hold due to acute kidney injury. 9. Hyperlipidemia-continue statin. 10. Morbid obesity-encouraged diet lifestyle modifications. 11. Former tobacco use-encouraged continued cessation. 12. History of CVA-continue aspirin, Plavix, statin. 13. Chronic normocytic anemia-at baseline, trend CBC. 14. Asymptomatic bacteriuria-obtain urine culture. Hold off on antibiotics given asymptomatic, no fever/leukocytosis. DVT prophylaxis-Heparin, SCDs This patient was seen by ORIN Hadley under the supervision of Dr. Byrd. <Jacob Byrd - Last Filed: 03/20/20 11:57> - Physical Exam Vitals/I&O's: Vital Signs Temp Pulse Resp BP Pulse Ox 98.3 F 91 20 H 148/64 H 100 03/20/20 10:00 03/20/20 10:00 03/20/20 10:00 03/20/20 10:00 03/20/20 10:00 Oxygen Flow Rate (L/min) 2 Oxygen Delivery Method Nasal Cannula Weight: 84.4 kg Body Mass Index (BMI) 37.3 Intake and Output for Last 24 Hours 03/18/20 03/19/20 03/20/20 23:59 23:59 23:59 Intake Total 1650 / 2100 450 / 450 Output Total 1650 / 1950 900 / 900 Balance 0 / 150 -450 / -450 Laboratory Results 03/19/20 11:33: POC Glucose 247 H 03/19/20 16:40: POC Glucose 154 H 03/19/20 18:30: Urine Color Straw, Urine Clarity Clear, Urine pH 6.5, Ur Specific [place] 1.005, Urine Protein Negative, Urine Glucose (UA) Normal, Urine Ketones Negative, Urine Occult Blood 10 H, Urine Nitrite Positive H, Urine Bilirubin Negative, Urine Urobilinogen Normal, Ur Leukocyte Esterase 500 H, Urine RBC 0 SEEN, Urine WBC 0-5 SEEN, Ur Squamous Epith Cells 0 SEEN, Urine Bacteria 1+, Urine Mucus 0 SEEN 03/19/20 21:11: POC Glucose 118 H 03/20/20 05:34: WBC Cancelled, Corrected WBC Cancelled, RBC Cancelled, Hgb Cancelled, Hct Cancelled, MCV Cancelled, MCH Cancelled, MCHC Cancelled, RDW Std Deviation Cancelled, RDW Coeff of Jade Cancelled, Plt Count Cancelled, MPV Cancelled, Diff Path Review Cancelled 03/20/20 05:34: Sodium 133 L, Potassium 4.5, Chloride 103, Carbon Dioxide 23.0, Anion Gap 7, BUN 42 H, Creatinine 2.04 H, Estim Creat Clear Calc 37.12, Est GFR (MDRD) Af Amer 32 L, Est GFR (MDRD) Non-Af 26 L, BUN/Creatinine Ratio 20.6 H, Glucose 101, Calcium 8.5 03/20/20 07:32: WBC 8.8, RBC 3.18 L, Hgb 8.0 L, Hct 27.0 L, MCV 84.9, MCH 25.2 L , MCHC 29.6 L, RDW Std Deviation 72.3 H, RDW Coeff of Jade 23.8 H, Plt Count 297, MPV 9.0, Differential Comment YES, 03/20/20 10:02: POC Glucose 107 03/20/20 10:37: COVID-19 (MICHELLE) Pending Current Medications Acetaminophen (Acetaminophen 325 Mg Tablet) 650 mg PO Q6H PRN PRN PRN Reason: Pain Score 1-10/Temp > 100.7 F Last Admin: 03/20/20 11:47 Dose: 650 mg Documented by: Al Hydroxide/Mg Hydroxide (Mag Hydrox/Al Hydrox/Simeth 30 Ml Udc) 30 ml PO Q6H PRN PRN PRN Reason: Gastric Burning Albuterol Sulfate (Albuterol 2.5 Mg/3 Ml Vial.Neb.) 2.5 mg INHALATION Q2H PRN PRN PRN Reason: Dyspnea, wheezing Albuterol/Ipratropium (Ipratropium/Albuterol Sulfate 3 Ml Ampul.Neb) 3 ml INHALATION Q6HWA.RT [facility] Last Admin: 03/20/20 06:55 Dose: 3 ml Documented by: Aspirin (Aspirin 81 Mg Tab.Chew) 81 mg PO DAILY@0800 [facility] Atorvastatin Calcium (Atorvastatin Calcium 80 Mg Tablet) 80 mg PO QHS [facility] Buspirone HCl (Buspirone 5 Mg Tablet) 20 mg PO TID [facility] Cholecalciferol (Cholecalciferol (Vit D3) 1,000 Unit (25mcg)) 2,000 unit PO DAILY [facility] Clopidogrel Bisulfate (Clopidogrel Bisulfate 75 Mg Tablet) 75 mg PO DAILY [facility] Dextrose (Dextrose 50%-Water 25 Gm/50 Ml Disp.Syrin) 0 gm IV X1 PRN; Protocol PRN Reason: Hypoglycemia Ferrous Sulfate (Ferrous Sulfate 325 Mg Tablet) 325 mg PO DAILY@1200 [facility] Furosemide (Furosemide 40 Mg/4 Ml Vial) 40 mg IV BID@1000,1800 [facility] Last Admin: 03/19/20 16:50 Dose: 40 mg Documented by: Glucagon (Glucagon 1 Mg/Ml Syringe) 1 mg IM .X1 PRN PRN Reason: Hypoglycemia Guaifenesin (Guaifenesin 10 Ml Udc (200mg/10ml)) 20 ml PO Q4H PRN PRN PRN Reason: COUGH Heparin Sodium (Porcine) (Heparin Injection (Vial) 5,000 Unit/Ml Vial) 5,000 unit SC Q12 [facility] Last Admin: 03/20/20 10:08 Dose: 5,000 unit Documented by: Insulin Glargine (Insulin Glargine 100 Units/Ml Pen) 10 units SC 1100,2200 [facility] Last Admin: 03/20/20 10:07 Dose: 10 units Documented by: Insulin Human Lispro (Insulin Lispro 100 Unit/Ml Insuln.Pen) 0 unit SC ACHS [facility]; Protocol Last Admin: 03/20/20 10:06 Dose: Not Given Documented by: Insulin Human Lispro (Insulin Lispro 100 Unit/Ml Insuln.Pen) 5 unit SC TIDAC [facility] Last Admin: 03/20/20 10:07 Dose: 5 u Documented by: Magnesium Hydroxide (Magnesium Hydroxide 30 Ml Udc) 30 ml PO DAILY PRN PRN PRN Reason: Constipation Metoprolol Succinate (Metoprolol(Xl)Succ 25 Mg Tablet) 25 mg PO DAILY [facility] Morphine Sulfate (Morphine 2 Mg/Ml Syringe) 2 mg IV Q3H PRN PRN PRN Reason: Pain Score 6-10 Last Admin: 03/19/20 03:10 Dose: 2 mg Documented by: Nitroglycerin (Nitroglycerin (Inpatient Use) 0.4 Mg Tab.Subl) 0.4 mg SUBLINGUAL Q5M PRN PRN Reason: CARDIAC/CHEST PAIN Ondansetron HCl (Ondansetron 4 Mg/2 Ml Vial) 4 mg IV Q8H PRN PRN PRN Reason: NAUSEA/VOMITING Oxycodone HCl (Oxycodone 5 Mg Tablet) 5 mg PO Q4H PRN PRN PRN Reason: Pain Score 4-5 Last Admin: 03/20/20 11:47 Dose: 5 mg Documented by: Pantoprazole Sodium (Pantoprazole Sodium 40 Mg Tablet) 40 mg PO DAILY [facility] Prochlorperazine Edisylate (Prochlorperazine 10 Mg/2 Ml Vial) 5 mg IV Q4H PRN PRN PRN Reason: Breakthrough Nausea/Vomiting Psyllium Hydrophilic Mucilloid (Psyllium 1 Packet) 1 packet PO DAILY PRN PRN PRN Reason: Constipation Senna/Docusate Sodium (Senna/Docusate Sodium 1 Tablet) 2 tablet PO BID PRN PRN PRN Reason: Constipation Sodium Chloride (0.9% Saline Lock 10 Ml Syringe) 10 - 40 ml IV UD PRN PRN Reason: SALINE FLUSH Last Admin: 03/20/20 10:12 Dose: 10 ml Documented by: Throat Lozenges (Benzocaine/Menthol 1 Lozenge) 1 lozenge MUCOUS MEM Q2H PRN PRN PRN Reason: SORE THROAT Assessment/Plan This patient was seen in conjunction with ORIN Hadley . I have independently interviewed and examined the patient and reviewed pertinent historical, laboratory, and other data. Please refer to ORIN Hadley note for details of this patient's presentation, findings, and recommendations. I have reviewed ORIN Hadley note and concur with documented findings. In brief, patient is a 84-year-old lady with known history of congestive heart failure with reduced ejection fraction admitted with progressive shortness of breath. An assessment of acute on chronic CHF made admitted to monitored bed for further management 03/20/2020; patient seen admits to some improvement in her breathing status Physical Examination: GENERAL: cooperative HEENT: Atraumatic; EYES; Anicteric, Normal Conjunctiva NECK; supple, normal thyroid, RESPIRATORY: Diminished to auscultation CARDIOVASCULAR: Regular S1 S2, GI: soft, normoactive bowel sounds, : No Renal angle tenderness; EXTREMITIES: 2+ bipedal edema MUSCULOSKELETAL: no muscle waisting NEURO: Awake; no lateralizing signs. SKIN: No Rash PSYCH; Flat affect Assessment: 1. Acute congestive heart failure with reduced ejection fraction 2. Coronary artery disease with previous PCI involving an LAD lesion 3. Kidney injury superimposed on chronic kidney disease stage III 4. Valvular heart disease with history of severe eccentric mitral valve regurgitation 5. Dyslipidemia 6. Diabetes mellitus type 2 7. Essential hypertension 8. COPD 9. Depression 10. Peripheral arterial disease with previous history of right carotid endarterectomy as well as angioplasty involving the popliteal and superficial femoral artery 11. Hyponatremia ?Secondary to fluid overload 12. History of previous CVA 13. Morbid obesity with BMI of 37.7 Recommendations: 1. I have discussed the results of my overview and impressions with the patient 2. Options for management were reviewed Inpatient E&M: [id number] Subs Hosp L2
[2020-03-20] MEDS: Acetaminophen 325 MG Tablet 650 MG PO ×2 (11:47→20:25)
[2020-03-20] MEDS: oxyCODONE 5 MG Tablet PO ×3 (11:47→20:25)
[2020-03-20] MEDS: Furosemide 40 MG/4 ML Vial IV ×2 (12:29→18:15)
[2020-03-20] MEDS: Aspirin 81 MG TAB.CHEW PO (12:32)
[2020-03-20] MEDS: Metoprolol(XL)Succ 25 MG Tablet PO (12:32)
[2020-03-20] MEDS: busPIRone 5 MG Tablet 20 MG PO ×2 (12:32→21:30)
[2020-03-20] MEDS: Clopidogrel Bisulfate 75 MG Tablet PO (12:32)
[2020-03-20] MEDS: Ferrous Sulfate 325 MG Tablet PO (12:33)
[2020-03-20] MEDS: Pantoprazole Sodium 40 MG Tablet PO (12:33)
[2020-03-20 14:50] LABS: Bedside Glucose 117 mg/dL (70-110)
[2020-03-20] MEDS: Morphine 2 MG/ML Syringe IV ×2 (18:05→22:30)
[2020-03-20 18:25] LABS: Bedside Glucose 116 mg/dL (70-110)
[2020-03-20] MEDS: Atorvastatin Calcium 80 MG Tablet PO (21:40)
[2020-03-20 22:20] LABS: Bedside Glucose 90 mg/dL (70-110)
[2020-03-21] VITALS (14 sets, daily range): BP systolic 102–128; BP diastolic 56–85; PULSE 74–110; RESP 16–19; TEMP 36.6–37.3; O2SAT 87–100
[2020-03-21] MEDS: oxyCODONE 5 MG Tablet PO ×4 (02:17→20:00)
[2020-03-21] MEDS: busPIRone 5 MG Tablet 20 MG PO ×3 (05:05→21:25)
[2020-03-21] MEDS: Acetaminophen 325 MG Tablet 650 MG PO (05:10)
[2020-03-21] MEDS: Insulin Lispro 100 UNIT/ML INSULN.PEN SC ×3 (08:25→17:02)
[2020-03-21] MEDS: Aspirin 81 MG TAB.CHEW PO (08:25)
[2020-03-21 08:30] LABS: Bedside Glucose 139 mg/dL (70-110)
[2020-03-21 09:33] LABS: Hematocrit 31.3 % (37-47); Hemoglobin 8.9 g/dL (12.0-15.0); Mean Corp Hgb Conc 28.4 g/dL (32-36); Mean Corpuscular Hgb 24.9 pg (27.0-32.0); Mean Corpuscular Volume 87.7 fL (81-99); Mean Platelet Vol. 8.9 fl (6.2-12.0); POSITIVE MORPHOLOGY YES; Platelet Count 350 K/mm3 (150-450); RBC Distribution Width CV 23.9 % (11.6-14.6); RBC Distribution Width SD 75.2 fl (35.1-43.9); Red Blood Count 3.57 M/mm3 (4.2-5.4); White Blood Count 9.1 K/mm3 (4.4-11.0)
[2020-03-21 09:35] LABS: Scan Indicated on CBC? Y/N YES- FLAGS NOTED
[2020-03-21 09:49] LABS: ALB/GLOB Ratio 0.7 RATIO (0.9-2.4); AST(SGOT) 17 U/L (15-37); Alanine Aminotransfer ALT/SGPT 25 U/L (13-56); Albumin, Serum 2.8 g/dL (3.2-5.0); Alkaline Phosphatase 151 U/L (45-117); Anion Gap 7 (5-15); BUN 44 mg/dL (7-18); BUN/Creat Ratio 21.2 RATIO (10-20); Calcium,Total 8.3 mg/dL (8.5-10.1); Chloride 101 mmol/L (98-107); Creatinine, Serum 2.08 mg/dL (0.55-1.02); EST Glomerular Filtration Rate 26 mL/min (>60); Est Glom Filt Rate - Afr Amer 31 mL/min (>60); Estimated Creatinine Clearance 35.37 ml/min; Glucose 113 mg/dL (74-106); Potassium 4.1 mmol/L (3.5-5.1); Protein, Total 6.8 g/dL (6.4-8.2); Sodium Level 135 mmol/L (136-145)
[2020-03-21] MEDS: Furosemide 40 MG/4 ML Vial IV (09:53)
[2020-03-21] MEDS: Heparin Injection (Vial) 5,000 UNIT/ML VIAL 5000 UNIT SC ×2 (09:53→21:20)
[2020-03-21] MEDS: Clopidogrel Bisulfate 75 MG Tablet PO (09:54)
[2020-03-21] MEDS: Metoprolol(XL)Succ 25 MG Tablet PO (09:54)
[2020-03-21] MEDS: Pantoprazole Sodium 40 MG Tablet PO (09:54)
[2020-03-21 10:00] LABS: Differential Comment YES
--- NOTE | 2020-03-21 11:28 | TREXTCA.CO_ITS ---
- Diet 03/18/20 20:03 Diet: Cardiac: Calorie-Controlled Food consistency:: Regular Liquid Consistency:: Regular/Thin Dietary Modifications:: Sodium Restricted Fluid restriction:: 1500 mL How many daily calories?: 1800 calorie - Routine Orders/Code Status Enema Type: Fleetz Enema Frequency: Daily PRN Suppository Type: Dulcolax 10mg Suppository Frequency: Daily PRN O2 Liters per Minute: 2 O2 Frequency: Continuous Keep PO Greater than or Equal to (%): 90 Routine Lab Work: - - Weekly CBC, BMP Code Status: Full Code - Suggestions for Active Care Change Position every (hours): 2 Times a day to sit in chair: 3 - Therapies Physical Therapy: Eval and Treat Occupational Therapy: Eval and Treat - Problem/Diagnosis (1) Acute on chronic systolic CHF (congestive heart failure) Status: Acute (2) Acute kidney injury superimposed on CKD Status: Acute (3) History of coronary artery stent placement Status: Chronic Comment: PCI-JAZIEL-LAD w/ 2.0 x 30 mm and 2.5 x 34 mm Resolute [place] and PCI-JAZIEL-Mid LCx w/ Resolute [place] 2.0 x 30 mm and 2.0 x 22 mm Stent 05/18/2018 (4) Essential (primary) hypertension Status: Chronic (5) Hyperlipidemia Status: Chronic (6) CVA (cerebral vascular accident) Status: Chronic (7) PAD (peripheral artery disease) Status: Chronic (8) Debility Status: Chronic - Allergies/Procedures Done in Hospital Allergies/Adverse Reactions: Allergies Penicillins Allergy (Severe, Verified 03/18/20 16:07) Swelling tolerated keflex in past with no issue fluoxetine [From Prozac] Adverse Reaction (Verified 03/18/20 16:07) NEEDS FOLLOW-UP pravastatin [From Pravachol] Adverse Reaction (Verified 03/18/20 16:07) NEEDS FOLLOW-UP Procedures: None - Type of Care/Length of Stay Estimated LOS: More Than 30 Days Type of Care Needed: Skilled Rehab Potential: Fair Prognosis: Fair - Additional Orders/Day of Discharge Additional Orders: Continue Lasix 40 mg twice daily for 1 week then transition to Lasix 40 mg daily. Follow-up with cardiology in 2 weeks. Follow CBC, BMP weekly. Patient initially had right upper quadrant pain on admission. Abdominal ultrasound showed gallstones with mild gallbladder wall thickening. Negative Farias sign. Patient's pain resolved and tolerating diet. If patient has recurrent pain, will need repeat gallbladder ultrasound and follow-up with general surgery. H&P will serve as current which was dated: 03/18/20 Day of Discharge: 03/21/20 - Dietary and Speech Recommendations Dietitian Recommendations/Changes: Will add sodium restriction to current 1800 calorie cardiac diet order. - Follow Up Care Primary Care Physician: Evens Jimenez III, MD [Primary Care Provider] - Please follow up with your Primary Care Physician in: 1 Week Please Follow Up With: Barb Demarco, PA When: 2 Weeks
--- NOTE | 2020-03-21 11:32 | PCM.DC.SUM ---
Discharge Date and Diagnosis - Problem List Patient Problems: Active and Suspected Problems (Last Reviewed 01/21/20 @ 10:[address] Jacob Byrd MD) Acute on chronic systolic CHF (congestive heart failure) (Acute) Acute exacerbation of CHF (congestive heart failure) (Acute) Acute kidney injury superimposed on CKD (Acute) Congestive heart failure (Acute) Hyperkalemia (Acute) Date of Admission: 03/18/20 Date of Discharge: 03/21/20 - Primary Discharge Diagnosis Acute Problems: Active Problems (Last Reviewed 01/21/20 @ 10:[address] Jacob Byrd MD) 1. Acute combined systolic/diastolic CHF with chronic hypoxic respiratory failure 2. Acute kidney injury on chronic kidney disease stage III 3. Right upper quadrant pain/elevated alk phos-acute cholecystitis ruled out 4. Hypervolemic hyponatremia 5. Type 2 diabetes mellitus 6. Anxiety/depression 7. Carotid artery disease 8. Hypertension 9. Hyperlipidemia 10. Morbid obesity 11. Former tobacco use 12. History of CVA 13. Chronic normocytic anemia 14. Asymptomatic bacteriuria 15. Multivessel CAD with history of stents - Secondary Discharge Diagnosis Chronic Problems: Chronic Problems (Last Reviewed 01/21/20 @ 10:[address] Jacob Byrd MD) Acute kidney injury superimposed on chronic kidney disease (Chronic) Atherosclerosis of coronary artery of [place] heart without angina pectoris (Chronic) History of coronary artery stent placement (Chronic 05/18/18) PCI-JAZIEL-LAD w/ 2.0 x 30 mm and 2.5 x 34 mm Resolute [place] and PCI-JAZIEL-Mid LCx w/ Resolute [place] 2.0 x 30 mm and 2.0 x 22 mm Stent 05/18/2018 Chronic combined systolic and diastolic CHF (congestive heart failure) (Chronic) Bilateral carotid artery stenosis (Chronic) RCEA and L carotid 70-80% stenosis Non-rheumatic tricuspid valve insufficiency (Chronic) Nonrheumatic mitral (valve) insufficiency (Chronic) Secondary pulmonary arterial hypertension (Chronic) Essential (primary) hypertension (Chronic) Hyperlipidemia (Chronic) CVA (cerebral vascular accident) (Chronic) PAD (peripheral artery disease) (Chronic) Debility (Chronic) Hospital Course and Treatment Imaging Results: Diagnostic Data Chest X-Ray 03/18/20 17:05 IMPRESSION: No acute process Electronically Signed: Jah Correa MD at 17:37 EDT , Service support , Abdomen Ultrasound 03/18/20 18:39 IMPRESSION: Right pleural effusion. Gallstones and mild gallbladder wall thickening. Negative sonographic Farias''s sign. Hepatomegaly and diffusely increased hepatic echogenicity may indicate steatosis versus hepatocellular disease as clinically indicated. Atrophic right kidney. Electronically Signed: Ambrosio Omkar, at 20:27 EDT Tel , Service support , Operations: None Procedures: None Summary of Care Provided: The patient is a 64 year old F admitted 03/18/2020 due to weight gain and abnormal labs. 1. Acute combined systolic/diastolic CHF with chronic hypoxic respiratory failure-BNP greater than 5000. Echocardiogram November 2019 demonstrated an EF of 25%. Repeat echocardiogram demonstrates an EF of 25 to 30%, stage II diastolic dysfunction, pulmonary artery systolic pressure 55 mmHg, severe tricuspid valve insufficiency, severe mitral valve insufficiency, severe hypokinesis of the anterior wall, lateral wall, septum and apex, moderately enlarged left atrium and mildly enlarged right atrium.. Patient down approximately 19 pounds since admission. Lower extremity swelling significantly improving. IV Lasix during admission. Strict I&O. Daily weight. On baseline home O2 requirements. Continue supplement oxygen to maintain O2 at above 90%. Lasix 40 mg twice daily at discharge for 1 week and then changed to Lasix 40 mg daily. Pending trending of BMP, may consider leaving patient on 40 mg twice daily given significantly reduced EF however this will depend on renal function. Patient was using Lasix 40 mg as needed only prior to admission. Follow-up with cardiology in 2 weeks. 2. Acute kidney injury on chronic kidney disease stage III-stable. Weekly BMP. 3. Right upper quadrant pain/elevated alk phos-unclear etiology. Denies nausea, vomiting. Alk phos trending down. Abdominal ultrasound demonstrates gallstones and mild gallbladder wall thickening. Negative Farias sign. Hepatomegaly and diffuse increased hepatic echogenicity which may indicate steatosis versus hepatocellular disease. Patient denies further pain. If recurrent pain, will need repeat gallbladder ultrasound and referral to general surgery. 4. Hypervolemic hyponatremia-improved with diuresis. 5. Type 2 diabetes mellitus-hemoglobin A1c 7%. Continue home insulin regimen. 6. Anxiety/depression-continue BuSpar. 7. Carotid artery disease-history of right carotid endarterectomy. Continue aspirin, Plavix, statin. 8. Hypertension-stable, continue metoprolol, spironolactone. Lisinopril discontinued due to renal function. 9. Hyperlipidemia-continue statin. 10. Morbid obesity-encouraged diet lifestyle modifications. 11. Former tobacco use-encouraged continued cessation. 12. History of CVA-continue aspirin, Plavix, statin. 13. Chronic normocytic anemia-at baseline, trend CBC. 14. Asymptomatic bacteriuria- Hold off on antibiotics given asymptomatic, no fever/leukocytosis. Urine culture pending. 15. Multivessel CAD with history of stents-continue aspirin, statin, Plavix, metoprolol. Continue outpatient follow-up with cardiology. General: Alert, Oriented x3, Cooperative HEENT: Atraumatic, PERRLA, EOMI, Normocephalic Neck: Supple, No JVD, Negative Carotid Bruits Lungs: Clear to auscultation, Diminished Cardiovascular: Regular rate, No murmurs Abdomen: Bowel Sounds Present, Soft, Non Tender, Non-Distended Extremities: No clubbing, No cyanosis, Capillary Refill Less than 3 Seconds, Edema significantly improved, nonpitting bilateral lower extremity edema Skin: No rashes, No breakdown Musculoskeletal: No Tenderness to Palpation of Joints or Extremities Neurological: Cranial nerves II-XII grossly intact, Neuro grossly intact Psych/Mental Status: Flat Affect Patient seen and examined prior to discharge. Physical assessment as noted above. Patient is stable for discharge with follow up recommendations as noted above. This patient was seen by ORIN Hadley under the supervision of Dr. Palomo. Patient Problems: Active and Suspected Problems (Last Reviewed 01/21/20 @ 10:[address] Jacob Byrd MD) Acute on chronic systolic CHF (congestive heart failure) (Acute) Acute exacerbation of CHF (congestive heart failure) (Acute) Acute kidney injury superimposed on CKD (Acute) Congestive heart failure (Acute) Hyperkalemia (Acute) - Physical Exam Vitals/I&O's: Vital Signs Temp Pulse Resp BP Pulse Ox 97.8 F 88 18 108/60 100 03/21/20 09:51 03/21/20 09:54 03/21/20 09:51 03/21/20 09:51 03/21/20 09:51 Oxygen Flow Rate (L/min) 2 Oxygen Delivery Method Nasal Cannula Weight: 180 lb 12.465 oz Body Mass Index (BMI) 37.3 Intake and Output for Last 24 Hours 03/19/20 03/20/20 03/21/20 23:59 23:59 23:59 Intake Total 1650 / 2100 1150 / 1370 700 / 700 Output Total 1650 / 1950 2750 / 3550 1725 / 1725 Balance 0 / 150 -1600 / -2180 -1025 / -1025 Laboratory Results 03/20/20 10:37: COVID-19 (MICHELLE) Not Detected 03/20/20 14:42: POC Glucose 117 H 03/20/20 18:14: POC Glucose 116 H 03/20/20 21:33: POC Glucose 90 03/21/20 08:22: POC Glucose 139 H 03/21/20 09:20: WBC 9.1, RBC 3.57 L, Hgb 8.9 L, Hct 31.3 L, MCV 87.7, MCH 24.9 L, MCHC 28.4 L, RDW Std Deviation 75.2 H, RDW Coeff of Jade 23.9 H, Plt Count 350, MPV 8.9, Differential Comment YES 03/21/20 09:20: Sodium 135 L, Potassium 4.1, Chloride 101, Carbon Dioxide 27.0, Anion Gap 7, BUN 44 H, Creatinine 2.08 H, Estim Creat Clear Calc 35.37, Est GFR (MDRD) Af Amer 31 L, Est GFR (MDRD) Non-Af 26 L, BUN/Creatinine Ratio 21.2 H, Glucose 113 H, Calcium 8.3 L, Total Bilirubin 0.30, AST 17, ALT 25, Alkaline Phosphatase 151 H, Total Protein 6.8, Albumin 2.8 L, Globulin 4.0, Albumin/Globulin Ratio 0.7 L Current Medications Acetaminophen (Acetaminophen 325 Mg Tablet) 650 mg PO Q6H PRN PRN PRN Reason: Pain Score 1-10/Temp > 100.7 F Last Admin: 03/21/20 05:10 Dose: 650 mg Documented by: Al Hydroxide/Mg Hydroxide (Mag Hydrox/Al Hydrox/Simeth 30 Ml Udc) 30 ml PO Q6H PRN PRN PRN Reason: Gastric Burning Albuterol Sulfate (Albuterol 2.5 Mg/3 Ml Vial.Neb.) 2.5 mg INHALATION Q2H PRN PRN PRN Reason: Dyspnea, wheezing Albuterol/Ipratropium (Ipratropium/Albuterol Sulfate 3 Ml Ampul.Neb) 3 ml INHALATION Q6HWA.RT [facility] Last Admin: 03/20/20 12:52 Dose: 3 ml Documented by: Aspirin (Aspirin 81 Mg Tab.Chew) 81 mg PO DAILY@0800 [facility] Last Admin: 03/21/20 08:25 Dose: 81 mg Documented by: Atorvastatin Calcium (Atorvastatin Calcium 80 Mg Tablet) 80 mg PO QHS [facility] Last Admin: 03/20/20 21:40 Dose: 80 mg Documented by: Buspirone HCl (Buspirone 5 Mg Tablet) 20 mg PO TID [facility] Last Admin: 03/21/20 05:05 Dose: 20 mg Documented by: Cholecalciferol (Cholecalciferol (Vit D3) 1,000 Unit (25mcg)) 2,000 unit PO DAILY [facility] Last Admin: 03/21/20 09:54 Dose: 2,000 unit Documented by: Clopidogrel Bisulfate (Clopidogrel Bisulfate 75 Mg Tablet) 75 mg PO DAILY [facility] Last Admin: 03/21/20 09:54 Dose: 75 mg Documented by: Dextrose (Dextrose 50%-Water 25 Gm/50 Ml Disp.Syrin) 0 gm IV X1 PRN; Protocol PRN Reason: Hypoglycemia Ferrous Sulfate (Ferrous Sulfate 325 Mg Tablet) 325 mg PO DAILY@1200 [facility] Last Admin: 03/20/20 12:33 Dose: 325 mg Documented by: Furosemide (Furosemide 40 Mg/4 Ml Vial) 40 mg IV BID@1000,1800 [facility] Last Admin: 03/21/20 09:53 Dose: 40 mg Documented by: Glucagon (Glucagon 1 Mg/Ml Syringe) 1 mg IM .X1 PRN PRN Reason: Hypoglycemia Guaifenesin (Guaifenesin 10 Ml Udc (200mg/10ml)) 20 ml PO Q4H PRN PRN PRN Reason: COUGH Heparin Sodium (Porcine) (Heparin Injection (Vial) 5,000 Unit/Ml Vial) 5,000 unit SC Q12 [facility] Last Admin: 03/21/20 09:53 Dose: 5,000 unit Documented by: Insulin Glargine (Insulin Glargine 100 Units/Ml Pen) 10 units SC 1100,2200 [facility] Last Admin: 03/20/20 21:34 Dose: Not Given Documented by: Insulin Human Lispro (Insulin Lispro 100 Unit/Ml Insuln.Pen) 0 unit SC ACHS [facility]; Protocol Last Admin: 03/21/20 08:25 Dose: Not Given Documented by: Insulin Human Lispro (Insulin Lispro 100 Unit/Ml Insuln.Pen) 5 unit SC TIDAC [facility] Last Admin: 03/21/20 08:25 Dose: 5 u Documented by: Magnesium Hydroxide (Magnesium Hydroxide 30 Ml Udc) 30 ml PO DAILY PRN PRN PRN Reason: Constipation Melatonin (Melatonin 10 Mg Tablet) 10 mg PO QHS PRN PRN PRN Reason: INSOMNIA Metoprolol Succinate (Metoprolol(Xl)Succ 25 Mg Tablet) 25 mg PO DAILY [facility] Last Admin: 03/21/20 09:54 Dose: 25 mg Documented by: Morphine Sulfate (Morphine 2 Mg/Ml Syringe) 2 mg IV Q3H PRN PRN PRN Reason: Pain Score 6-10 Last Admin: 03/20/20 22:30 Dose: 2 mg Documented by: Nitroglycerin (Nitroglycerin (Inpatient Use) 0.4 Mg Tab.Subl) 0.4 mg SUBLINGUAL Q5M PRN PRN Reason: CARDIAC/CHEST PAIN Ondansetron HCl (Ondansetron 4 Mg/2 Ml Vial) 4 mg IV Q8H PRN PRN PRN Reason: NAUSEA/VOMITING Oxycodone HCl (Oxycodone 5 Mg Tablet) 5 mg PO Q4H PRN PRN PRN Reason: Pain Score 4-5 Last Admin: 03/21/20 06:52 Dose: 5 mg Documented by: Pantoprazole Sodium (Pantoprazole Sodium 40 Mg Tablet) 40 mg PO DAILY [facility] Last Admin: 03/21/20 09:54 Dose: 40 mg Documented by: Prochlorperazine Edisylate (Prochlorperazine 10 Mg/2 Ml Vial) 5 mg IV Q4H PRN PRN PRN Reason: Breakthrough Nausea/Vomiting Psyllium Hydrophilic Mucilloid (Psyllium 1 Packet) 1 packet PO DAILY PRN PRN PRN Reason: Constipation Senna/Docusate Sodium (Senna/Docusate Sodium 1 Tablet) 2 tablet PO BID PRN PRN PRN Reason: Constipation Sodium Chloride (0.9% Saline Lock 10 Ml Syringe) 10 - 40 ml IV UD PRN PRN Reason: SALINE FLUSH Last Admin: 03/20/20 22:30 Dose: 10 ml Documented by: Throat Lozenges (Benzocaine/Menthol 1 Lozenge) 1 lozenge MUCOUS MEM Q2H PRN PRN PRN Reason: SORE THROAT Home Medications: Medications to take at Discharge Clopidogrel Bisulfate [Clopidogrel] 75 mg PO DAILY 05/24/18 Aspirin [Aspirin, Baby] 81 mg PO DAILY@0800 07/12/19 Albuterol Sulfate [Albuterol Sulfate HFA] 2 puff IH 4X/DAY 09/28/19 Loratadine 10 mg PO DAILY PRN PRN 09/28/19 Mometasone Furoate [Elocon] 1 applicatio TP DAILY 09/28/19 Acetaminophen [Tylenol Tablet] 650 mg PO Q6H PRN PRN tab 10/02/19 Melatonin 10 mg PO QHS PRN tab 10/02/19 spironolactone 25 mg tablet 12.5 mg PO DAILY tab 12/18/19 Insulin Lispro [Humalog KwikPen] See Protocol SUBCUT ACHS 01/21/20 Oxycodone HCl 5 mg PO Q6H PRN PRN 01/21/20 metoprolol succinate 25 mg tablet,extended release 24 hr 25 mg PO DAILY tab 03/13/20 pantoprazole 40 mg tablet,delayed release 40 mg PO DAILY 03/13/20 Atorvastatin Calcium 80 mg PO QHS 03/18/20 Buspirone HCl 20 mg PO TID 03/18/20 Cholecalciferol (Vitamin D3) [Vitamin D3] 2,000 unit PO DAILY 03/18/20 Ferrous Sulfate 325 mg PO DAILY 03/18/20 Nut.tx.gluc.intoler,Lac-Fr,Soy [Glucerna] 120 ml PO BID 03/18/20 Furosemide 40 mg PO BID #30 tablet 03/21/20 Insulin Glargine [Lantus SoloStar Pen] 10 units SC 1100,2200 pen 03/21/20 Following Prescriptions Were Given to Patient: Furosemide 40 mg PO BID #30 tablet Primary Care Physician: Evens Jimenez III, MD [Primary Care Provider] - Please follow up with your Primary Care Physician in: 1 Week Please Follow Up With: Barb Demarco, PA When: 2 Weeks Disposition: [facility] facility Minutes spent on discharge:: 35 Patient Condition:: Stable Medical Necessity - Tobacco Use Smoking Status: Former smoker Tobacco Use: Non-smoker Meaningful Use Info Meaningful Use Diagnoses (Choose all that apply): CHF - CHF ALEJANDRA/ARB ordered at discharge?: No Reason ALEJANDRA/ARB not ordered?: Worsening renal dysfunctn Documented LVEF (%): 25
[2020-03-21 12:01] LABS: Bedside Glucose 82 mg/dL (70-110)
--- NOTE | 2020-03-21 12:47 | NURSING ---
Checked with [facility] for eliquis torres. Cost is 53.45 per month.
[2020-03-21] MEDS: Ipratropium/Albuterol Sulfate 3 ML AMPUL.NEB INHALATION ×2 (12:59→18:28)
--- NOTE | 2020-03-21 13:09 | CASEMGMT ---
JAX spoke w/Karin at [facility], no precert has been attained and it is unlikely the precert will be attained this weekend. Karin will call this SW if precert is attained. JAX did fax [facility] the COVID screen and PT/OT notes as requested. SW notified the hemodialysis charge nurse we do not have precert and pt will likely be here through the weekend. SW will notify RN if precert is attained. CHARLENE Alex
--- NOTE | 2020-03-21 13:15 | PCM.PROGNOTE ---
<Indu Royal SUPERINTENDENT PRESSURE - Last Filed: 03/21/20 13:19> Patient Problems: Active and Suspected Problems (Last Reviewed 01/21/20 @ 10:[address] Jacob Byrd MD) Acute on chronic systolic CHF (congestive heart failure) (Acute) Acute exacerbation of CHF (congestive heart failure) (Acute) Acute kidney injury superimposed on CKD (Acute) Congestive heart failure (Acute) Hyperkalemia (Acute) Subjective: Patient seen and examined. Denies shortness of breath. Lower extremity swelling significantly improved. Weight down 19 pounds. Awaiting pre-CERT to SNF. - Physical Exam Vitals/I&O's: Vital Signs Temp Pulse Resp BP Pulse Ox 97.8 F 83 19 H 108/60 100 03/21/20 09:51 03/21/20 13:00 03/21/20 13:00 03/21/20 09:51 03/21/20 09:51 Oxygen Flow Rate (L/min) 2 Oxygen Delivery Method Nasal Cannula Weight: 180 lb 12.465 oz Body Mass Index (BMI) 37.3 Intake and Output for Last 24 Hours 03/19/20 03/20/20 03/21/20 23:59 23:59 23:59 Intake Total 1650 / 2100 1150 / 1370 700 / 700 Output Total 1650 / 1950 2750 / 3550 1725 / 1725 Balance 0 / 150 -1600 / -2180 -1025 / -1025 General: Alert, Oriented x3, Cooperative HEENT: Atraumatic, PERRLA, EOMI, Normocephalic Neck: Supple, No JVD, Negative Carotid Bruits Lungs: Clear to auscultation, Diminished Cardiovascular: Regular rate, No murmurs Abdomen: Bowel Sounds Present, Soft, Non Tender, Non-Distended Extremities: No clubbing, No cyanosis, No edema, Capillary Refill Less than 3 Seconds Skin: No rashes, No breakdown Musculoskeletal: No Tenderness to Palpation of Joints or Extremities Neurological: Cranial nerves II-XII grossly intact, Neuro grossly intact Psych/Mental Status: Flat Affect Microbiology Past 72 Hours 03/19/20 18:30 Urine, Catheterized Urine Culture - Preliminary Gram negative arturo Laboratory Results 03/20/20 10:37: COVID-19 (MICHELLE) Not Detected 03/20/20 14:42: POC Glucose 117 H 03/20/20 18:14: POC Glucose 116 H 03/20/20 21:33: POC Glucose 90 03/21/20 08:22: POC Glucose 139 H 03/21/20 09:20: WBC 9.1, RBC 3.57 L, Hgb 8.9 L, Hct 31.3 L, MCV 87.7, MCH 24.9 L, MCHC 28.4 L, RDW Std Deviation 75.2 H, RDW Coeff of Jade 23.9 H, Plt Count 350, MPV 8.9, Differential Comment YES 03/21/20 09:20: Sodium 135 L, Potassium 4.1, Chloride 101, Carbon Dioxide 27.0, Anion Gap 7, BUN 44 H, Creatinine 2.08 H, Estim Creat Clear Calc 35.37, Est GFR (MDRD) Af Amer 31 L, Est GFR (MDRD) Non-Af 26 L, BUN/Creatinine Ratio 21.2 H, Glucose 113 H, Calcium 8.3 L, Total Bilirubin 0.30, AST 17, ALT 25, Alkaline Phosphatase 151 H, Total Protein 6.8, Albumin 2.8 L, Globulin 4.0, Albumin/Globulin Ratio 0.7 L 03/21/20 11:54: POC Glucose 82 Current Medications Acetaminophen (Acetaminophen 325 Mg Tablet) 650 mg PO Q6H PRN PRN PRN Reason: Pain Score 1-10/Temp > 100.7 F Last Admin: 03/21/20 05:10 Dose: 650 mg Documented by: Al Hydroxide/Mg Hydroxide (Mag Hydrox/Al Hydrox/Simeth 30 Ml Udc) 30 ml PO Q6H PRN PRN PRN Reason: Gastric Burning Albuterol Sulfate (Albuterol 2.5 Mg/3 Ml Vial.Neb.) 2.5 mg INHALATION Q2H PRN PRN PRN Reason: Dyspnea, wheezing Albuterol/Ipratropium (Ipratropium/Albuterol Sulfate 3 Ml Ampul.Neb) 3 ml INHALATION Q6HWA.RT [facility] Last Admin: 03/21/20 12:59 Dose: 3 ml Documented by: Aspirin (Aspirin 81 Mg Tab.Chew) 81 mg PO DAILY@0800 [facility] Last Admin: 03/21/20 08:25 Dose: 81 mg Documented by: Atorvastatin Calcium (Atorvastatin Calcium 80 Mg Tablet) 80 mg PO QHS [facility] Last Admin: 03/20/20 21:40 Dose: 80 mg Documented by: Buspirone HCl (Buspirone 5 Mg Tablet) 20 mg PO TID [facility] Last Admin: 03/21/20 05:05 Dose: 20 mg Documented by: Cholecalciferol (Cholecalciferol (Vit D3) 1,000 Unit (25mcg)) 2,000 unit PO DAILY [facility] Last Admin: 03/21/20 09:54 Dose: 2,000 unit Documented by: Clopidogrel Bisulfate (Clopidogrel Bisulfate 75 Mg Tablet) 75 mg PO DAILY [facility] Last Admin: 03/21/20 09:54 Dose: 75 mg Documented by: Dextrose (Dextrose 50%-Water 25 Gm/50 Ml Disp.Syrin) 0 gm IV X1 PRN; Protocol PRN Reason: Hypoglycemia Ferrous Sulfate (Ferrous Sulfate 325 Mg Tablet) 325 mg PO DAILY@1200 [facility] Last Admin: 03/20/20 12:33 Dose: 325 mg Documented by: Furosemide (Furosemide 40 Mg/4 Ml Vial) 40 mg IV BID@1000,1800 [facility] Last Admin: 03/21/20 09:53 Dose: 40 mg Documented by: Glucagon (Glucagon 1 Mg/Ml Syringe) 1 mg IM .X1 PRN PRN Reason: Hypoglycemia Guaifenesin (Guaifenesin 10 Ml Udc (200mg/10ml)) 20 ml PO Q4H PRN PRN PRN Reason: COUGH Heparin Sodium (Porcine) (Heparin Injection (Vial) 5,000 Unit/Ml Vial) 5,000 unit SC Q12 [facility] Last Admin: 03/21/20 09:53 Dose: 5,000 unit Documented by: Insulin Glargine (Insulin Glargine 100 Units/Ml Pen) 10 units SC 1100,2200 [facility] Last Admin: 03/20/20 21:34 Dose: Not Given Documented by: Insulin Human Lispro (Insulin Lispro 100 Unit/Ml Insuln.Pen) 0 unit SC ACHS [facility]; Protocol Last Admin: 03/21/20 12:31 Dose: Not Given Documented by: Insulin Human Lispro (Insulin Lispro 100 Unit/Ml Insuln.Pen) 5 unit SC TIDAC [facility] Last Admin: 03/21/20 12:32 Dose: Not Given Documented by: Magnesium Hydroxide (Magnesium Hydroxide 30 Ml Udc) 30 ml PO DAILY PRN PRN PRN Reason: Constipation Melatonin (Melatonin 10 Mg Tablet) 10 mg PO QHS PRN PRN PRN Reason: INSOMNIA Metoprolol Succinate (Metoprolol(Xl)Succ 25 Mg Tablet) 25 mg PO DAILY [facility] Last Admin: 03/21/20 09:54 Dose: 25 mg Documented by: Morphine Sulfate (Morphine 2 Mg/Ml Syringe) 2 mg IV Q3H PRN PRN PRN Reason: Pain Score 6-10 Last Admin: 03/20/20 22:30 Dose: 2 mg Documented by: Nitroglycerin (Nitroglycerin (Inpatient Use) 0.4 Mg Tab.Subl) 0.4 mg SUBLINGUAL Q5M PRN PRN Reason: CARDIAC/CHEST PAIN Ondansetron HCl (Ondansetron 4 Mg/2 Ml Vial) 4 mg IV Q8H PRN PRN PRN Reason: NAUSEA/VOMITING Oxycodone HCl (Oxycodone 5 Mg Tablet) 5 mg PO Q4H PRN PRN PRN Reason: Pain Score 4-5 Last Admin: 03/21/20 06:52 Dose: 5 mg Documented by: Pantoprazole Sodium (Pantoprazole Sodium 40 Mg Tablet) 40 mg PO DAILY [facility] Last Admin: 03/21/20 09:54 Dose: 40 mg Documented by: Prochlorperazine Edisylate (Prochlorperazine 10 Mg/2 Ml Vial) 5 mg IV Q4H PRN PRN PRN Reason: Breakthrough Nausea/Vomiting Psyllium Hydrophilic Mucilloid (Psyllium 1 Packet) 1 packet PO DAILY PRN PRN PRN Reason: Constipation Senna/Docusate Sodium (Senna/Docusate Sodium 1 Tablet) 2 tablet PO BID PRN PRN PRN Reason: Constipation Sodium Chloride (0.9% Saline Lock 10 Ml Syringe) 10 - 40 ml IV UD PRN PRN Reason: SALINE FLUSH Last Admin: 03/20/20 22:30 Dose: 10 ml Documented by: Throat Lozenges (Benzocaine/Menthol 1 Lozenge) 1 lozenge MUCOUS MEM Q2H PRN PRN PRN Reason: SORE THROAT Medical Necessity - Tobacco Use Smoking Status: Former smoker Tobacco Use: Non-smoker Assessment/Plan All Active Problems (Last Reviewed 01/21/20 @ 10:[address] Jacob Byrd MD) Acute on chronic systolic CHF (congestive heart failure) (Acute) Acute exacerbation of CHF (congestive heart failure) (Acute) Hypoxia (Acute) Dyspnea (Acute) Acute kidney injury superimposed on CKD (Acute) Congestive heart failure (Acute) Hyperkalemia (Acute) Dyspnea on exertion (Acute) Orthopnea (Acute) Acute exacerbation of CHF (congestive heart failure) (Resolved) Acute on chronic combined systolic (congestive) and diastolic (congestive) heart failure (Resolved) Acute respiratory failure with hypoxia (Resolved) CHF exacerbation (Resolved) COPD exacerbation (Resolved) COPD exacerbation (Resolved) Chronic ulcer of buttock (Resolved) Flash pulmonary edema (Resolved) 1. Acute combined systolic/diastolic CHF with chronic hypoxic respiratory failure-BNP greater than 5000. Echocardiogram [address] [facility] demonstrated an EF of 25%. Repeat echocardiogram demonstrates an EF of 25 to 30%, stage II diastolic dysfunction, pulmonary artery systolic pressure 55 mmHg, severe tricuspid valve insufficiency, severe mitral valve insufficiency, severe hypokinesis of the anterior wall, lateral wall, septum and apex, moderately enlarged left atrium and mildly enlarged right atrium. Patient down approximately 19 pounds since admission. Strict I&O. Daily weight. On baseline home O2 requirements. Continue supplement oxygen to maintain O2 at above 90%. Transition from IV Lasix to oral Lasix 40 mg twice daily. 2. Acute kidney injury on chronic kidney disease stage III-stable. Trend BMP. 3. Right upper quadrant pain/elevated alk phos-unclear etiology. Denies nausea, vomiting. Alk phos trending down. Abdominal ultrasound demonstrates gallstones and mild gallbladder wall thickening. Negative Farias sign. Hepatomegaly and diffuse increased hepatic echogenicity which may indicate steatosis versus hepatocellular disease. Patient denies further pain. If recurrent pain, will need repeat gallbladder ultrasound and referral to general surgery. 4. Hypervolemic hyponatremia-improved with diuresis. 5. Type 2 diabetes mellitus-hemoglobin A1c 7%. Continue home insulin regimen. 6. Anxiety/depression-continue BuSpar. 7. Carotid artery disease-history of right carotid endarterectomy. Continue aspirin, Plavix, statin. 8. Hypertension-stable, continue metoprolol, spironolactone. Lisinopril discontinued due to renal function. 9. Hyperlipidemia-continue statin. 10. Morbid obesity-encouraged diet lifestyle modifications. 11. Former tobacco use-encouraged continued cessation. 12. History of CVA-continue aspirin, Plavix, statin. 13. Chronic normocytic anemia-at baseline, trend CBC. 14. Asymptomatic bacteriuria- Hold off on antibiotics given asymptomatic, no fever/leukocytosis. Urine culture pending. 15. Multivessel CAD with history of stents-continue aspirin, statin, Plavix, metoprolol. Continue outpatient follow-up with cardiology. DVT prophylaxis-Heparin, SCDs This patient was seen by ORIN Hadley under the supervision of Dr. Palomo. <Poli Palomo F - Last Filed: 03/21/20 16:27> - Physical Exam Vitals/I&O's: Vital Signs Temp Pulse Resp BP Pulse Ox 99.1 F 90 18 102/56 L 100 03/21/20 15:43 03/21/20 15:43 03/21/20 15:43 03/21/20 15:43 03/21/20 15:43 Oxygen Flow Rate (L/min) 2 Oxygen Delivery Method Nasal Cannula Weight: 180 lb 12.465 oz Body Mass Index (BMI) 37.3 Intake and Output for Last 24 Hours 03/19/20 03/20/20 03/21/20 23:59 23:59 23:59 Intake Total 1650 / 2100 1150 / 1370 1060 / 1060 Output Total 1650 / 1950 2750 / 3550 1725 / 1725 Balance 0 / 150 -1600 / -2180 -665 / -665 Microbiology Past 72 Hours 03/19/20 18:30 Urine, Catheterized Urine Culture - Preliminary Gram negative arturo Laboratory Results 03/20/20 18:14: POC Glucose 116 H 03/20/20 21:33: POC Glucose 90 03/21/20 08:22: POC Glucose 139 H 03/21/20 09:20: WBC 9.1, RBC 3.57 L, Hgb 8.9 L, Hct 31.3 L, MCV 87.7, MCH 24.9 L, MCHC 28.4 L, RDW Std Deviation 75.2 H, RDW Coeff of Jade 23.9 H, Plt Count 350, MPV 8.9, Differential Comment YES 03/21/20 09:20: Sodium 135 L, Potassium 4.1, Chloride 101, Carbon Dioxide 27.0, Anion Gap 7, BUN 44 H, Creatinine 2.08 H, Estim Creat Clear Calc 35.37, Est GFR (MDRD) Af Amer 31 L, Est GFR (MDRD) Non-Af 26 L, BUN/Creatinine Ratio 21.2 H, Glucose 113 H, Calcium 8.3 L, Total Bilirubin 0.30, AST 17, ALT 25, Alkaline Phosphatase 151 H, Total Protein 6.8, Albumin 2.8 L, Globulin 4.0, Albumin/Globulin Ratio 0.7 L 03/21/20 11:54: POC Glucose 82 Current Medications Acetaminophen (Acetaminophen 325 Mg Tablet) 650 mg PO Q6H PRN PRN PRN Reason: Pain Score 1-10/Temp > 100.7 F Last Admin: 03/21/20 05:10 Dose: 650 mg Documented by: Al Hydroxide/Mg Hydroxide (Mag Hydrox/Al Hydrox/Simeth 30 Ml Udc) 30 ml PO Q6H PRN PRN PRN Reason: Gastric Burning Albuterol Sulfate (Albuterol 2.5 Mg/3 Ml Vial.Neb.) 2.5 mg INHALATION Q2H PRN PRN PRN Reason: Dyspnea, wheezing Albuterol/Ipratropium (Ipratropium/Albuterol Sulfate 3 Ml Ampul.Neb) 3 ml INHALATION Q6HWA.RT [facility] Last Admin: 03/21/20 12:59 Dose: 3 ml Documented by: Aspirin (Aspirin 81 Mg Tab.Chew) 81 mg PO DAILY@0800 [facility] Last Admin: 03/21/20 08:25 Dose: 81 mg Documented by: Atorvastatin Calcium (Atorvastatin Calcium 80 Mg Tablet) 80 mg PO QHS [facility] Last Admin: 03/20/20 21:40 Dose: 80 mg Documented by: Buspirone HCl (Buspirone 5 Mg Tablet) 20 mg PO TID [facility] Last Admin: 03/21/20 13:19 Dose: 20 mg Documented by: Cholecalciferol (Cholecalciferol (Vit D3) 1,000 Unit (25mcg)) 2,000 unit PO DAILY [facility] Last Admin: 03/21/20 09:54 Dose: 2,000 unit Documented by: Clopidogrel Bisulfate (Clopidogrel Bisulfate 75 Mg Tablet) 75 mg PO DAILY [facility] Last Admin: 03/21/20 09:54 Dose: 75 mg Documented by: Dextrose (Dextrose 50%-Water 25 Gm/50 Ml Disp.Syrin) 0 gm IV X1 PRN; Protocol PRN Reason: Hypoglycemia Ferrous Sulfate (Ferrous Sulfate 325 Mg Tablet) 325 mg PO DAILY@1200 [facility] Last Admin: 03/21/20 13:18 Dose: 325 mg Documented by: Furosemide (Furosemide 40 Mg Tablet) 40 mg PO BID@1000,1800 [facility] Glucagon (Glucagon 1 Mg/Ml Syringe) 1 mg IM .X1 PRN PRN Reason: Hypoglycemia Guaifenesin (Guaifenesin 10 Ml Udc (200mg/10ml)) 20 ml PO Q4H PRN PRN PRN Reason: COUGH Heparin Sodium (Porcine) (Heparin Injection (Vial) 5,000 Unit/Ml Vial) 5,000 unit SC Q12 [facility] Last Admin: 03/21/20 09:53 Dose: 5,000 unit Documented by: Insulin Glargine (Insulin Glargine 100 Units/Ml Pen) 10 units SC 1100,2200 [facility] Last Admin: 03/21/20 13:18 Dose: 10 units Documented by: Insulin Human Lispro (Insulin Lispro 100 Unit/Ml Insuln.Pen) 0 unit SC ACHS [facility]; Protocol Last Admin: 03/21/20 12:31 Dose: Not Given Documented by: Insulin Human Lispro (Insulin Lispro 100 Unit/Ml Insuln.Pen) 5 unit SC TIDAC [facility] Last Admin: 03/21/20 12:32 Dose: Not Given Documented by: Magnesium Hydroxide (Magnesium Hydroxide 30 Ml Udc) 30 ml PO DAILY PRN PRN PRN Reason: Constipation Melatonin (Melatonin 10 Mg Tablet) 10 mg PO QHS PRN PRN PRN Reason: INSOMNIA Metoprolol Succinate (Metoprolol(Xl)Succ 25 Mg Tablet) 25 mg PO DAILY [facility] Last Admin: 03/21/20 09:54 Dose: 25 mg Documented by: Morphine Sulfate (Morphine 2 Mg/Ml Syringe) 2 mg IV Q3H PRN PRN PRN Reason: Pain Score 6-10 Last Admin: 03/20/20 22:30 Dose: 2 mg Documented by: Nitroglycerin (Nitroglycerin (Inpatient Use) 0.4 Mg Tab.Subl) 0.4 mg SUBLINGUAL Q5M PRN PRN Reason: CARDIAC/CHEST PAIN Ondansetron HCl (Ondansetron 4 Mg/2 Ml Vial) 4 mg IV Q8H PRN PRN PRN Reason: NAUSEA/VOMITING Oxycodone HCl (Oxycodone 5 Mg Tablet) 5 mg PO Q4H PRN PRN PRN Reason: Pain Score 4-5 Last Admin: 03/21/20 14:55 Dose: 5 mg Documented by: Pantoprazole Sodium (Pantoprazole Sodium 40 Mg Tablet) 40 mg PO DAILY [facility] Last Admin: 03/21/20 09:54 Dose: 40 mg Documented by: Prochlorperazine Edisylate (Prochlorperazine 10 Mg/2 Ml Vial) 5 mg IV Q4H PRN PRN PRN Reason: Breakthrough Nausea/Vomiting Psyllium Hydrophilic Mucilloid (Psyllium 1 Packet) 1 packet PO DAILY PRN PRN PRN Reason: Constipation Senna/Docusate Sodium (Senna/Docusate Sodium 1 Tablet) 2 tablet PO BID PRN PRN PRN Reason: Constipation Sodium Chloride (0.9% Saline Lock 10 Ml Syringe) 10 - 40 ml IV UD PRN PRN Reason: SALINE FLUSH Last Admin: 03/20/20 22:30 Dose: 10 ml Documented by: Throat Lozenges (Benzocaine/Menthol 1 Lozenge) 1 lozenge MUCOUS MEM Q2H PRN PRN PRN Reason: SORE THROAT Addendum: Dr. Palomo I personally examined the patient and reviewed the chart. I agree with the above. 64-year-old female presents from the [facility] with weight gain and abnormal labs. She does have a history of combined systolic/diastolic CHF and was started on Lasix while here. She has had good diuresis as well as 11 pound weight gain. She also had a UA with 500 leukocyte esterase as well as 1+ bacteria. The urine culture is coming back with greater than 100,000 CFU's of the gram-negative arturo therefore she was also started on Ancef which she has tolerated in the past. Feeling much better today, and she is back to her chronic 2 L of oxygen via nasal cannula. However, she is required to have a precertification to return back to her [facility] facility, therefore we will have her undergo PT/OT for evaluation and restart the process to go back to where she needs to be. In[facility] E&M: [id number]
[2020-03-21] MEDS: Ferrous Sulfate 325 MG Tablet PO (13:18)
[2020-03-21 17:15] LABS: Bedside Glucose 189 mg/dL (70-110)
[2020-03-21] MEDS: Furosemide 40 MG Tablet PO (17:56)
[2020-03-21] MEDS: Cefazolin 1 GM/50 ML BAG IV (21:20)
[2020-03-21] MEDS: 0.9% Saline Lock 10 ML Syringe IV (21:21)
[2020-03-21] MEDS: Atorvastatin Calcium 80 MG Tablet PO (21:25)
[2020-03-21 23:26] LABS: Bedside Glucose 137 mg/dL (70-110)
[2020-03-22] VITALS (14 sets, daily range): BP systolic 118–140; BP diastolic 47–77; PULSE 80–105; RESP 18–20; TEMP 36.9–37.2; O2SAT 93–100
[2020-03-22] MEDS: busPIRone 5 MG Tablet 20 MG PO ×3 (05:20→21:31)
[2020-03-22 07:16] LABS: Anion Gap 8 (5-15); BUN 47 mg/dL (7-18); BUN/Creat Ratio 22.7 RATIO (10-20); Calcium,Total 8.4 mg/dL (8.5-10.1); Chloride 103 mmol/L (98-107); Creatinine, Serum 2.07 mg/dL (0.55-1.02); EST Glomerular Filtration Rate 26 mL/min (>60); Est Glom Filt Rate - Afr Amer 31 mL/min (>60); Estimated Creatinine Clearance 35.46 ml/min; Glucose 126 mg/dL (74-106); Potassium 4.5 mmol/L (3.5-5.1); Sodium Level 135 mmol/L (136-145)
[2020-03-22] MEDS: Ipratropium/Albuterol Sulfate 3 ML AMPUL.NEB INHALATION ×2 (07:38→19:09)
[2020-03-22 08:10] LABS: Hematocrit 26.2 % (37-47); Hemoglobin 7.9 g/dL (12.0-15.0); Mean Corp Hgb Conc 30.2 g/dL (32-36); Mean Corpuscular Hgb 25.6 pg (27.0-32.0); Mean Corpuscular Volume 85.1 fL (81-99); Mean Platelet Vol. 8.9 fl (6.2-12.0); POSITIVE MORPHOLOGY YES; Platelet Count 312 K/mm3 (150-450); RBC Distribution Width CV 23.4 % (11.6-14.6); RBC Distribution Width SD 71.2 fl (35.1-43.9); Red Blood Count 3.08 M/mm3 (4.2-5.4); White Blood Count 8.7 K/mm3 (4.4-11.0)
[2020-03-22] MEDS: Insulin Lispro 100 UNIT/ML INSULN.PEN SC ×6 (08:21→21:27)
[2020-03-22] MEDS: Furosemide 40 MG Tablet PO ×2 (08:22→17:10)
[2020-03-22] MEDS: Aspirin 81 MG TAB.CHEW PO (08:22)
[2020-03-22] MEDS: Clopidogrel Bisulfate 75 MG Tablet PO (08:22)
[2020-03-22] MEDS: Metoprolol(XL)Succ 25 MG Tablet PO (08:23)
[2020-03-22] MEDS: Pantoprazole Sodium 40 MG Tablet PO (08:23)
[2020-03-22] MEDS: Acetaminophen 325 MG Tablet 650 MG PO (08:27)
[2020-03-22] MEDS: oxyCODONE 5 MG Tablet PO ×4 (08:27→21:09)
[2020-03-22] MEDS: Menthol/Lanolin/Calamine/Znox 113 GM Tube 1 APPLIC TOPICAL ×2 (08:36→21:28)
[2020-03-22 09:11] LABS: Scan Indicated on CBC? Y/N YES- FLAGS NOTED
[2020-03-22] MEDS: Cefazolin 1 GM/50 ML BAG IV ×2 (09:26→21:23)
[2020-03-22] MEDS: Heparin Injection (Vial) 5,000 UNIT/ML VIAL 5000 UNIT SC ×2 (09:28→21:27)
[2020-03-22 11:30] LABS: Bedside Glucose 248 mg/dL (70-110)
--- NOTE | 2020-03-22 11:45 | PCM.PROGNOTE ---
<Indu [employer] - Last Filed: 03/22/20 11:50> Patient Problems: Active and Suspected Problems (Last Reviewed 01/21/20 @ 10:[address] Jacob Byrd MD) Acute on chronic systolic CHF (congestive heart failure) (Acute) Acute exacerbation of CHF (congestive heart failure) (Acute) Acute kidney injury superimposed on CKD (Acute) Congestive heart failure (Acute) Hyperkalemia (Acute) Subjective: Patient seen and examined. No acute events overnight. Denies shortness of breath. Awaiting pre-CERT to SNF. - Physical Exam Vitals/I&O's: Vital Signs Temp Pulse Resp BP Pulse Ox 98.5 F 94 18 120/64 93 03/22/20 09:00 03/22/20 10:00 03/22/20 10:00 03/22/20 09:00 03/22/20 10:00 Oxygen Flow Rate (L/min) 4 Oxygen Delivery Method Nasal Cannula Weight: 180 lb 5.41 oz Body Mass Index (BMI) 37.3 Intake and Output for Last 24 Hours 03/20/20 03/21/20 03/22/20 23:59 23:59 23:59 Intake Total 1150 / 1370 1110 / 1230 290 / 290 Output Total 2750 / 3550 1725 / 2125 900 / 900 Balance -1600 / -2180 -615 / -895 -610 / -610 General: Alert, Oriented x3, Cooperative HEENT: Atraumatic, PERRLA, EOMI, Normocephalic Neck: Supple, No JVD, Negative Carotid Bruits Lungs: Clear to auscultation, Diminished Cardiovascular: Regular rate, No murmurs Abdomen: Bowel Sounds Present, Soft, Non Tender, Non-Distended Extremities: No clubbing, No cyanosis, Edema - Nonpitting bilateral lower extremities Skin: No rashes, No breakdown Musculoskeletal: No Tenderness to Palpation of Joints or Extremities Neurological: Cranial nerves II-XII grossly intact, Neuro grossly intact Psych/Mental Status: Flat Affect Microbiology Past 72 Hours 03/19/20 18:30 Urine, Catheterized Urine Culture - Final Proteus mirabilis Laboratory Results 03/21/20 11:54: POC Glucose 82 03/21/20 16:59: POC Glucose 189 H 03/21/20 21:19: POC Glucose 137 H 03/22/20 05:50: WBC Cancelled, Corrected WBC Cancelled, RBC Cancelled, Hgb Cancelled, Hct Cancelled, MCV Cancelled, MCH Cancelled, MCHC Cancelled, RDW Std Deviation Cancelled, RDW Coeff of Jade Cancelled, Plt Count Cancelled, MPV Cancelled, Diff Path Review Cancelled 03/22/20 05:50: Sodium 135 L, Potassium 4.5, Chloride 103, Carbon Dioxide 24.0, Anion Gap 8, BUN 47 H, Creatinine 2.07 H, Estim Creat Clear Calc 35.46, Est GFR (MDRD) Af Amer 31 L, Est GFR (MDRD) Non-Af 26 L, BUN/Creatinine Ratio 22.7 H, Glucose 126 H, Calcium 8.4 L 03/22/20 07:58: WBC 8.7, RBC 3.08 L, Hgb 7.9 L, Hct 26.2 L, MCV 85.1, MCH 25.6 L, MCHC 30.2 L D, RDW Std Deviation 71.2 H, RDW Coeff of Jade 23.4 H, Plt Count 312, MPV 8.9, Differential Comment COMMENT 03/22/20 11:15: POC Glucose 248 H Current Medications Acetaminophen (Acetaminophen 325 Mg Tablet) 650 mg PO Q6H PRN PRN PRN Reason: Pain Score 1-10/Temp > 100.7 F Last Admin: 03/22/20 08:27 Dose: 650 mg Documented by: Al Hydroxide/Mg Hydroxide (Mag Hydrox/Al Hydrox/Simeth 30 Ml Udc) 30 ml PO Q6H PRN PRN PRN Reason: Gastric Burning Albuterol Sulfate (Albuterol 2.5 Mg/3 Ml Vial.Neb.) 2.5 mg INHALATION Q2H PRN PRN PRN Reason: Dyspnea, wheezing Albuterol/Ipratropium (Ipratropium/Albuterol Sulfate 3 Ml Ampul.Neb) 3 ml INHALATION Q6HWA.RT [facility] Last Admin: 03/22/20 07:38 Dose: 3 ml Documented by: Aspirin (Aspirin 81 Mg Tab.Chew) 81 mg PO DAILY@0800 [facility] Last Admin: 03/22/20 08:22 Dose: 81 mg Documented by: Atorvastatin Calcium (Atorvastatin Calcium 80 Mg Tablet) 80 mg PO QHS [facility] Last Admin: 03/21/20 21:25 Dose: 80 mg Documented by: Buspirone HCl (Buspirone 5 Mg Tablet) 20 mg PO TID [facility] Last Admin: 03/22/20 05:20 Dose: 20 mg Documented by: Calamine/Phenol (Menthol/Lanolin/Calamine/Znox 113 Gm Tube) 1 applic TOPICAL BID [facility]; Protocol Last Admin: 03/22/20 08:36 Dose: 1 applicatio Documented by: Cholecalciferol (Cholecalciferol (Vit D3) 1,000 Unit (25mcg)) 2,000 unit PO DAILY [facility] Last Admin: 03/22/20 08:23 Dose: 2,000 unit Documented by: Clopidogrel Bisulfate (Clopidogrel Bisulfate 75 Mg Tablet) 75 mg PO DAILY [facility] Last Admin: 03/22/20 08:22 Dose: 75 mg Documented by: Dextrose (Dextrose 50%-Water 25 Gm/50 Ml Disp.Syrin) 0 gm IV X1 PRN; Protocol PRN Reason: Hypoglycemia Ferrous Sulfate (Ferrous Sulfate 325 Mg Tablet) 325 mg PO DAILY@1200 [facility] Last Admin: 03/21/20 13:18 Dose: 325 mg Documented by: Furosemide (Furosemide 40 Mg Tablet) 40 mg PO BID@1000,1800 [facility] Last Admin: 03/22/20 08:22 Dose: 40 mg Documented by: Glucagon (Glucagon 1 Mg/Ml Syringe) 1 mg IM .X1 PRN PRN Reason: Hypoglycemia Guaifenesin (Guaifenesin 10 Ml Udc (200mg/10ml)) 20 ml PO Q4H PRN PRN PRN Reason: COUGH Heparin Sodium (Porcine) (Heparin Injection (Vial) 5,000 Unit/Ml Vial) 5,000 unit SC Q12 [facility] Last Admin: 03/22/20 09:28 Dose: 5,000 unit Documented by: Cefazolin Sodium () 1 gm in 50 mls @ 100 mls/hr IV Q12 [facility] Last Infusion: 03/22/20 10:00 Dose: Infused Documented by: Insulin Glargine (Insulin Glargine 100 Units/Ml Pen) 10 units SC 1100,2200 [facility] Last Admin: 03/21/20 21:20 Dose: 10 units Documented by: Insulin Human Lispro (Insulin Lispro 100 Unit/Ml Insuln.Pen) 0 unit SC ACHS [facility]; Protocol Last Admin: 03/22/20 08:31 Dose: 5 units Documented by: Insulin Human Lispro (Insulin Lispro 100 Unit/Ml Insuln.Pen) 5 unit SC TIDAC [facility] Last Admin: 03/22/20 09:26 Dose: 5 u Documented by: Loperamide HCl (Loperamide 2 Mg Capsule) 2 mg PO Q2H PRN PRN PRN Reason: Diarrhea Magnesium Hydroxide (Magnesium Hydroxide 30 Ml Udc) 30 ml PO DAILY PRN PRN PRN Reason: Constipation Melatonin (Melatonin 10 Mg Tablet) 10 mg PO QHS PRN PRN PRN Reason: INSOMNIA Metoprolol Succinate (Metoprolol(Xl)Succ 25 Mg Tablet) 25 mg PO DAILY [facility] Last Admin: 03/22/20 08:23 Dose: 25 mg Documented by: Morphine Sulfate (Morphine 2 Mg/Ml Syringe) 2 mg IV Q3H PRN PRN PRN Reason: Pain Score 6-10 Last Admin: 03/20/20 22:30 Dose: 2 mg Documented by: Nitroglycerin (Nitroglycerin (Inpatient Use) 0.4 Mg Tab.Subl) 0.4 mg SUBLINGUAL Q5M PRN PRN Reason: CARDIAC/CHEST PAIN Ondansetron HCl (Ondansetron 4 Mg/2 Ml Vial) 4 mg IV Q8H PRN PRN PRN Reason: NAUSEA/VOMITING Oxycodone HCl (Oxycodone 5 Mg Tablet) 5 mg PO Q4H PRN PRN PRN Reason: Pain Score 4-5 Last Admin: 03/22/20 08:27 Dose: 5 mg Documented by: Pantoprazole Sodium (Pantoprazole Sodium 40 Mg Tablet) 40 mg PO DAILY [facility] Last Admin: 03/22/20 08:23 Dose: 40 mg Documented by: Prochlorperazine Edisylate (Prochlorperazine 10 Mg/2 Ml Vial) 5 mg IV Q4H PRN PRN PRN Reason: Breakthrough Nausea/Vomiting Psyllium Hydrophilic Mucilloid (Psyllium 1 Packet) 1 packet PO DAILY PRN PRN PRN Reason: Constipation Senna/Docusate Sodium (Senna/Docusate Sodium 1 Tablet) 2 tablet PO BID PRN PRN PRN Reason: Constipation Sodium Chloride (0.9% Saline Lock 10 Ml Syringe) 10 - 40 ml IV UD PRN PRN Reason: SALINE FLUSH Last Admin: 03/21/20 21:21 Dose: 30 ml Documented by: Throat Lozenges (Benzocaine/Menthol 1 Lozenge) 1 lozenge MUCOUS MEM Q2H PRN PRN PRN Reason: SORE THROAT Medical Necessity - Tobacco Use Smoking Status: Former smoker Tobacco Use: Non-smoker Assessment/Plan All Active Problems (Last Reviewed 01/21/20 @ 10:[address] Jacob Byrd MD) Acute on chronic systolic CHF (congestive heart failure) (Acute) Acute exacerbation of CHF (congestive heart failure) (Acute) Hypoxia (Acute) Dyspnea (Acute) Acute kidney injury superimposed on CKD (Acute) Congestive heart failure (Acute) Hyperkalemia (Acute) Dyspnea on exertion (Acute) Orthopnea (Acute) Acute exacerbation of CHF (congestive heart failure) (Resolved) Acute on chronic combined systolic (congestive) and diastolic (congestive) heart failure (Resolved) Acute respiratory failure with hypoxia (Resolved) CHF exacerbation (Resolved) COPD exacerbation (Resolved) COPD exacerbation (Resolved) Chronic ulcer of buttock (Resolved) Flash pulmonary edema (Resolved) 1. Acute combined systolic/diastolic CHF with chronic hypoxic respiratory failure-BNP greater than 5000. Echocardiogram November 2019 at [facility] demonstrated an EF of 25%. Repeat echocardiogram demonstrates an EF of 25 to 30%, stage II diastolic dysfunction, pulmonary artery systolic pressure 55 mmHg, severe tricuspid valve insufficiency, severe mitral valve insufficiency, severe hypokinesis of the anterior wall, lateral wall, septum and apex, moderately enlarged left atrium and mildly enlarged right atrium. Patient down approximately 19 pounds since admission. Strict I&O. Daily weight. On baseline home O2 requirements. Continue supplement oxygen to maintain O2 at above 90%. Transition from IV Lasix to oral Lasix 40 mg twice daily. 2. Acute kidney injury on chronic kidney disease stage III-stable. Trend BMP. 3. Right upper quadrant pain/elevated alk phos-unclear etiology. Denies nausea, vomiting. Alk phos trending down. Abdominal ultrasound demonstrates gallstones and mild gallbladder wall thickening. Negative Farias sign. Hepatomegaly and diffuse increased hepatic echogenicity which may indicate steatosis versus hepatocellular disease. Patient denies further pain. If recurrent pain, will need repeat gallbladder ultrasound and referral to general surgery. 4. Hypervolemic hyponatremia-improved with diuresis. 5. Type 2 diabetes mellitus-hemoglobin A1c 7%. Continue home insulin regimen. 6. Anxiety/depression-continue BuSpar. 7. Carotid artery disease-history of right carotid endarterectomy. Continue aspirin, Plavix, statin. 8. Hypertension-stable, continue metoprolol, spironolactone. Lisinopril discontinued due to renal function. 9. Hyperlipidemia-continue statin. 10. Morbid obesity-encouraged diet lifestyle modifications. 11. Former tobacco use-encouraged continued cessation. 12. History of CVA-continue aspirin, Plavix, statin. 13. Chronic normocytic anemia-at baseline, trend CBC. 14. Acute Proteus Mirabilis UTI-culture grew greater than 100,000 colony count Proteus. Initiated on cefazolin. 15. Multivessel CAD with history of stents-continue aspirin, statin, Plavix, metoprolol. Continue outpatient follow-up with cardiology. DVT prophylaxis-Heparin, SCDs This patient was seen by ORIN Hadley under the supervision of Dr. Palomo. <Poli Palomo F - Last Filed: 03/22/20 11:59> - Physical Exam Vitals/I&O's: Vital Signs Temp Pulse Resp BP Pulse Ox 98.5 F 91 18 120/64 93 03/22/20 09:00 03/22/20 11:50 03/22/20 10:00 03/22/20 09:00 03/22/20 10:00 Oxygen Flow Rate (L/min) 4 Oxygen Delivery Method Nasal Cannula Weight: 180 lb 5.41 oz Body Mass Index (BMI) 37.3 Intake and Output for Last 24 Hours 03/20/20 03/21/20 03/22/20 23:59 23:59 23:59 Intake Total 1150 / 1370 1110 / 1230 290 / 290 Output Total 2750 / 3550 1725 / 2125 900 / 900 Balance -1600 / -2180 -615 / -895 -610 / -610 Microbiology Past 72 Hours 03/19/20 18:30 Urine, Catheterized Urine Culture - Final Proteus mirabilis Laboratory Results 03/21/20 11:54: POC Glucose 82 03/21/20 16:59: POC Glucose 189 H 03/21/20 21:19: POC Glucose 137 H 03/22/20 05:50: WBC Cancelled, Corrected WBC Cancelled, RBC Cancelled, Hgb Cancelled, Hct Cancelled, MCV Cancelled, MCH Cancelled, MCHC Cancelled, RDW Std Deviation Cancelled, RDW Coeff of Jade Cancelled, Plt Count Cancelled, MPV Cancelled, Diff Path Review Cancelled 03/22/20 05:50: Sodium 135 L, Potassium 4.5, Chloride 103, Carbon Dioxide 24.0, Anion Gap 8, BUN 47 H, Creatinine 2.07 H, Estim Creat Clear Calc 35.46, Est GFR (MDRD) Af Amer 31 L, Est GFR (MDRD) Non-Af 26 L, BUN/Creatinine Ratio 22.7 H, Glucose 126 H, Calcium 8.4 L 03/22/20 07:58: WBC 8.7, RBC 3.08 L, Hgb 7.9 L, Hct 26.2 L, MCV 85.1, MCH 25.6 L, MCHC 30.2 L D, RDW Std Deviation 71.2 H, RDW Coeff of Jade 23.4 H, Plt Count 312, MPV 8.9, Differential Comment COMMENT 03/22/20 11:15: POC Glucose 248 H Current Medications Acetaminophen (Acetaminophen 325 Mg Tablet) 650 mg PO Q6H PRN PRN PRN Reason: Pain Score 1-10/Temp > 100.7 F Last Admin: 03/22/20 08:27 Dose: 650 mg Documented by: Al Hydroxide/Mg Hydroxide (Mag Hydrox/Al Hydrox/Simeth 30 Ml Udc) 30 ml PO Q6H PRN PRN PRN Reason: Gastric Burning Albuterol Sulfate (Albuterol 2.5 Mg/3 Ml Vial.Neb.) 2.5 mg INHALATION Q2H PRN PRN PRN Reason: Dyspnea, wheezing Albuterol/Ipratropium (Ipratropium/Albuterol Sulfate 3 Ml Ampul.Neb) 3 ml INHALATION Q6HWA.RT [facility] Last Admin: 03/22/20 07:38 Dose: 3 ml Documented by: Aspirin (Aspirin 81 Mg Tab.Chew) 81 mg PO DAILY@0800 [facility] Last Admin: 03/22/20 08:22 Dose: 81 mg Documented by: Atorvastatin Calcium (Atorvastatin Calcium 80 Mg Tablet) 80 mg PO QHS [facility] Last Admin: 03/21/20 21:25 Dose: 80 mg Documented by: Buspirone HCl (Buspirone 5 Mg Tablet) 20 mg PO TID [facility] Last Admin: 03/22/20 05:20 Dose: 20 mg Documented by: Calamine/Phenol (Menthol/Lanolin/Calamine/Znox 113 Gm Tube) 1 applic TOPICAL BID [facility]; Protocol Last Admin: 03/22/20 08:36 Dose: 1 applicatio Documented by: Cholecalciferol (Cholecalciferol (Vit D3) 1,000 Unit (25mcg)) 2,000 unit PO DAILY [facility] Last Admin: 03/22/20 08:23 Dose: 2,000 unit Documented by: Clopidogrel Bisulfate (Clopidogrel Bisulfate 75 Mg Tablet) 75 mg PO DAILY [facility] Last Admin: 03/22/20 08:22 Dose: 75 mg Documented by: Dextrose (Dextrose 50%-Water 25 Gm/50 Ml Disp.Syrin) 0 gm IV X1 PRN; Protocol PRN Reason: Hypoglycemia Ferrous Sulfate (Ferrous Sulfate 325 Mg Tablet) 325 mg PO DAILY@1200 [facility] Last Admin: 03/21/20 13:18 Dose: 325 mg Documented by: Furosemide (Furosemide 40 Mg Tablet) 40 mg PO BID@1000,1800 [facility] Last Admin: 03/22/20 08:22 Dose: 40 mg Documented by: Glucagon (Glucagon 1 Mg/Ml Syringe) 1 mg IM .X1 PRN PRN Reason: Hypoglycemia Guaifenesin (Guaifenesin 10 Ml Udc (200mg/10ml)) 20 ml PO Q4H PRN PRN PRN Reason: COUGH Heparin Sodium (Porcine) (Heparin Injection (Vial) 5,000 Unit/Ml Vial) 5,000 unit SC Q12 [facility] Last Admin: 03/22/20 09:28 Dose: 5,000 unit Documented by: Cefazolin Sodium () 1 gm in 50 mls @ 100 mls/hr IV Q12 [facility] Last Infusion: 03/22/20 10:00 Dose: Infused Documented by: Insulin Glargine (Insulin Glargine 100 Units/Ml Pen) 10 units SC 1100,2200 [facility] Last Admin: 03/21/20 21:20 Dose: 10 units Documented by: Insulin Human Lispro (Insulin Lispro 100 Unit/Ml Insuln.Pen) 0 unit SC ACHS [facility]; Protocol Last Admin: 03/22/20 08:31 Dose: 5 units Documented by: Insulin Human Lispro (Insulin Lispro 100 Unit/Ml Insuln.Pen) 5 unit SC TIDAC [facility] Last Admin: 03/22/20 09:26 Dose: 5 u Documented by: Loperamide HCl (Loperamide 2 Mg Capsule) 2 mg PO Q2H PRN PRN PRN Reason: Diarrhea Magnesium Hydroxide (Magnesium Hydroxide 30 Ml Udc) 30 ml PO DAILY PRN PRN PRN Reason: Constipation Melatonin (Melatonin 10 Mg Tablet) 10 mg PO QHS PRN PRN PRN Reason: INSOMNIA Metoprolol Succinate (Metoprolol(Xl)Succ 25 Mg Tablet) 25 mg PO DAILY [facility] Last Admin: 03/22/20 08:23 Dose: 25 mg Documented by: Morphine Sulfate (Morphine 2 Mg/Ml Syringe) 2 mg IV Q3H PRN PRN PRN Reason: Pain Score 6-10 Last Admin: 03/20/20 22:30 Dose: 2 mg Documented by: Nitroglycerin (Nitroglycerin (Inpatient Use) 0.4 Mg Tab.Subl) 0.4 mg SUBLINGUAL Q5M PRN PRN Reason: CARDIAC/CHEST PAIN Ondansetron HCl (Ondansetron 4 Mg/2 Ml Vial) 4 mg IV Q8H PRN PRN PRN Reason: NAUSEA/VOMITING Oxycodone HCl (Oxycodone 5 Mg Tablet) 5 mg PO Q4H PRN PRN PRN Reason: Pain Score 4-5 Last Admin: 03/22/20 08:27 Dose: 5 mg Documented by: Pantoprazole Sodium (Pantoprazole Sodium 40 Mg Tablet) 40 mg PO DAILY [facility] Last Admin: 03/22/20 08:23 Dose: 40 mg Documented by: Prochlorperazine Edisylate (Prochlorperazine 10 Mg/2 Ml Vial) 5 mg IV Q4H PRN PRN PRN Reason: Breakthrough Nausea/Vomiting Psyllium Hydrophilic Mucilloid (Psyllium 1 Packet) 1 packet PO DAILY PRN PRN PRN Reason: Constipation Senna/Docusate Sodium (Senna/Docusate Sodium 1 Tablet) 2 tablet PO BID PRN PRN PRN Reason: Constipation Sodium Chloride (0.9% Saline Lock 10 Ml Syringe) 10 - 40 ml IV UD PRN PRN Reason: SALINE FLUSH Last Admin: 03/21/20 21:21 Dose: 30 ml Documented by: Throat Lozenges (Benzocaine/Menthol 1 Lozenge) 1 lozenge MUCOUS MEM Q2H PRN PRN PRN Reason: SORE THROAT Addendum: Dr. Palomo I personally examined the patient and reviewed the chart. I agree with the above. 64-year-old female presents from the group home with weight gain and abnormal labs. She does have a history of combined systolic/diastolic CHF and was started on Lasix while here. She has had good diuresis as well as 11 pound weight gain. She also had a UA with 500 leukocyte esterase as well as 1+ bacteria. The urine culture is coming back with greater than 100,000 CFU's of the gram-negative arturo therefore she was also started on Ancef which she has tolerated in the past. Feeling much better today, and she is back to her chronic 2 L of oxygen via nasal cannula. However, she is required to have a precertification to return back to her longterm facility, therefore we will have her undergo PT/OT for evaluation and restart the process to go back to where she needs to be. 03/22/2020: Feeling well today. She was started on Ancef yesterday for her UTI which has come back as a Proteus mirabilis that is resistant only to Macrobid. We will continue with antibiotics for 5 days total and hopefully by that point she will not need any by the time she receives her precertification from the insurance company to go back to a longterm facility. Inpatient E&M: 15182 Subs Hosp L2
[2020-03-22] MEDS: Ferrous Sulfate 325 MG Tablet PO (12:16)
[2020-03-22 17:11] LABS: Bedside Glucose 146 mg/dL (70-110)
[2020-03-22] MEDS: MELATONIN 10 MG TABLET PO (21:09)
[2020-03-22] MEDS: Atorvastatin Calcium 80 MG Tablet PO (21:32)
[2020-03-22 21:50] LABS: Bedside Glucose 166 mg/dL (70-110)
[2020-03-23] VITALS (12 sets, daily range): BP systolic 116–129; BP diastolic 54–70; PULSE 86–105; RESP 16–20; TEMP 36.6–37.7; O2SAT 95–100
[2020-03-23] MEDS: oxyCODONE 5 MG Tablet PO ×5 (03:09→23:57)
[2020-03-23] MEDS: busPIRone 5 MG Tablet 20 MG PO ×3 (05:12→22:54)
[2020-03-23 06:03] LABS: Hematocrit 26.3 % (37-47); Hemoglobin 7.8 g/dL (12.0-15.0); Mean Corp Hgb Conc 29.7 g/dL (32-36); Mean Corpuscular Hgb 25.1 pg (27.0-32.0); Mean Corpuscular Volume 84.6 fL (81-99); Mean Platelet Vol. 8.9 fl (6.2-12.0); POSITIVE MORPHOLOGY YES; Platelet Count 293 K/mm3 (150-450); RBC Distribution Width CV 23.4 % (11.6-14.6); RBC Distribution Width SD 71.8 fl (35.1-43.9); Red Blood Count 3.11 M/mm3 (4.2-5.4)
[2020-03-23 06:26] LABS: Anion Gap 9 (5-15); BUN 48 mg/dL (7-18); BUN/Creat Ratio 22.4 RATIO (10-20); Calcium,Total 8.4 mg/dL (8.5-10.1); Chloride 103 mmol/L (98-107); Creatinine, Serum 2.14 mg/dL (0.55-1.02); EST Glomerular Filtration Rate 25 mL/min (>60); Est Glom Filt Rate - Afr Amer 30 mL/min (>60); Estimated Creatinine Clearance 34.09 ml/min; Glucose 167 mg/dL (74-106); Potassium 4.4 mmol/L (3.5-5.1); Sodium Level 137 mmol/L (136-145)
[2020-03-23 06:33] LABS: Scan Indicated on CBC? Y/N YES- FLAGS NOTED
[2020-03-23] MEDS: Ipratropium/Albuterol Sulfate 3 ML AMPUL.NEB INHALATION ×4 (06:37→20:46)
[2020-03-23 07:12] LABS: Differential Comment SCANNED
[2020-03-23] MEDS: Insulin Lispro 100 UNIT/ML INSULN.PEN SC ×5 (08:17→17:18)
[2020-03-23] MEDS: Aspirin 81 MG TAB.CHEW PO (08:20)
[2020-03-23 08:26] LABS: Bedside Glucose 162 mg/dL (70-110)
[2020-03-23] MEDS: Menthol/Lanolin/Calamine/Znox 113 GM Tube 1 APPLIC TOPICAL ×2 (09:56→22:53)
[2020-03-23] MEDS: Heparin Injection (Vial) 5,000 UNIT/ML VIAL 5000 UNIT SC ×2 (09:57→22:55)
[2020-03-23] MEDS: Clopidogrel Bisulfate 75 MG Tablet PO (09:57)
[2020-03-23] MEDS: Furosemide 40 MG Tablet PO ×2 (09:57→17:17)
[2020-03-23] MEDS: Metoprolol(XL)Succ 25 MG Tablet PO (09:58)
[2020-03-23] MEDS: Pantoprazole Sodium 40 MG Tablet PO (09:58)
[2020-03-23] MEDS: Cefazolin 1 GM/50 ML BAG IV (10:07)
[2020-03-23] MEDS: 0.9% Saline Lock 10 ML Syringe IV (11:33)
[2020-03-23 12:25] LABS: Bedside Glucose 168 mg/dL (70-110)
[2020-03-23] MEDS: Ferrous Sulfate 325 MG Tablet PO (13:20)
--- NOTE | 2020-03-23 14:53 | PN_ITS ---
<LeleIndu PUBLIC INFORMATION RELATIONS MANAGER - Last Filed: 03/23/20 14:57> Patient Problems: Active and Suspected Problems (Last Reviewed 01/21/20 @ 10:[address] Jacob martinez MD) Acute on chronic systolic CHF (congestive heart failure) (Acute) Acute exacerbation of CHF (congestive heart failure) (Acute) Acute kidney injury superimposed on CKD (Acute) Congestive heart failure (Acute) Hyperkalemia (Acute) Subjective: Patient seen and examined. Denies current complaints. Awaiting pre-CERT to SNF. - Physical Exam Vitals/I&O's: Vital Signs Temp Pulse Resp BP Pulse Ox 99.9 F H 95 18 120/70 98 03/23/20 13:26 03/23/20 13:26 03/23/20 13:26 03/23/20 13:26 03/23/20 13:26 Oxygen Flow Rate (L/min) 2 Oxygen Delivery Method Nasal Cannula Weight: 179 lb 3.773 oz Body Mass Index (BMI) 37.3 Intake and Output for Last 24 Hours 03/21/20 03/22/20 03/23/20 23:59 23:59 23:59 Intake Total 1110 / 1230 990 / 1110 630 / 630 Output Total 1725 / 2125 1700 / 2420 1320 / 1320 Balance -615 / -895 -710 / -1310 -690 / -690 General: Alert, Oriented x3, Cooperative HEENT: Atraumatic, PERRLA, EOMI, Normocephalic Neck: Supple, No JVD, Negative Carotid Bruits Lungs: Clear to auscultation, Diminished Cardiovascular: Regular rate, No murmurs Abdomen: Bowel Sounds Present, Soft, Non Tender, Non-Distended Extremities: No clubbing, No cyanosis, No edema, Capillary Refill Less than 3 Seconds Skin: No rashes, No breakdown Musculoskeletal: No Tenderness to Palpation of Joints or Extremities Neurological: Cranial nerves II-XII grossly intact, Neuro grossly intact Psych/Mental Status: Flat Affect Microbiology Past 72 Hours 03/19/20 18:30 Urine, Catheterized Urine Culture - Final Proteus mirabilis Laboratory Results 03/22/20 17:00: POC Glucose 146 H 03/22/20 21:25: POC Glucose 166 H 03/23/20 05:40: WBC 9.0, RBC 3.11 L, Hgb 7.8 L, Hct 26.3 L, MCV 84.6, MCH 25.1 L , MCHC 29.7 L, RDW Std Deviation 71.8 H, RDW Coeff of Jdae 23.4 H, Plt Count 293, MPV 8.9, Differential Comment SCANNED 03/23/20 05:40: Sodium 137, Potassium 4.4, Chloride 103, Carbon Dioxide 25.0, Anion Gap 9, BUN 48 H, Creatinine 2.14 H, Estim Creat Clear Calc 34.09, Est GFR (MDRD) Af Amer 30 L, Est GFR (MDRD) Non-Af 25 L, BUN/Creatinine Ratio 22.4 H, Glucose 167 H, Calcium 8.4 L 03/23/20 08:10: POC Glucose 162 H 03/23/20 09:20: COVID-19 (MICHELLE) Not Detected 03/23/20 11:38: POC Glucose 168 H Current Medications Acetaminophen (Acetaminophen 325 Mg Tablet) 650 mg PO Q6H PRN PRN PRN Reason: Pain Score 1-10/Temp > 100.7 F Last Admin: 03/22/20 08:27 Dose: 650 mg Documented by: Al Hydroxide/Mg Hydroxide (Mag Hydrox/Al Hydrox/Simeth 30 Ml Udc) 30 ml PO Q6H PRN PRN PRN Reason: Gastric Burning Albuterol Sulfate (Albuterol 2.5 Mg/3 Ml Vial.Neb.) 2.5 mg INHALATION Q2H PRN PRN PRN Reason: Dyspnea, wheezing Albuterol/Ipratropium (Ipratropium/Albuterol Sulfate 3 Ml Ampul.Neb) 3 ml INHALATION Q6HWA.RT [facility] Last Admin: 03/23/20 12:27 Dose: 3 ml Documented by: Aspirin (Aspirin 81 Mg Tab.Chew) 81 mg PO DAILY@0800 [facility] Last Admin: 03/23/20 08:20 Dose: 81 mg Documented by: Atorvastatin Calcium (Atorvastatin Calcium 80 Mg Tablet) 80 mg PO QHS [facility] Last Admin: 03/22/20 21:32 Dose: 80 mg Documented by: Buspirone HCl (Buspirone 5 Mg Tablet) 20 mg PO TID [facility] Last Admin: 03/23/20 13:20 Dose: 20 mg Documented by: Calamine/Phenol (Menthol/Lanolin/Calamine/Znox 113 Gm Tube) 1 applic TOPICAL BID [facility]; Protocol Last Admin: 03/23/20 09:56 Dose: 1 applicatio Documented by: Cholecalciferol (Cholecalciferol (Vit D3) 1,000 Unit (25mcg)) 2,000 unit PO DAILY [facility] Last Admin: 03/23/20 09:58 Dose: 2,000 unit Documented by: Clopidogrel Bisulfate (Clopidogrel Bisulfate 75 Mg Tablet) 75 mg PO DAILY [facility] Last Admin: 03/23/20 09:57 Dose: 75 mg Documented by: Dextrose (Dextrose 50%-Water 25 Gm/50 Ml Disp.Syrin) 0 gm IV X1 PRN; Protocol PRN Reason: Hypoglycemia Ferrous Sulfate (Ferrous Sulfate 325 Mg Tablet) 325 mg PO DAILY@1200 [facility] Last Admin: 03/23/20 13:20 Dose: 325 mg Documented by: Furosemide (Furosemide 40 Mg Tablet) 40 mg PO BID@1000,1800 [facility] Last Admin: 03/23/20 09:57 Dose: 40 mg Documented by: Glucagon (Glucagon 1 Mg/Ml Syringe) 1 mg IM .X1 PRN PRN Reason: Hypoglycemia Guaifenesin (Guaifenesin 10 Ml Udc (200mg/10ml)) 20 ml PO Q4H PRN PRN PRN Reason: COUGH Heparin Sodium (Porcine) (Heparin Injection (Vial) 5,000 Unit/Ml Vial) 5,000 unit SC Q12 [facility] Last Admin: 03/23/20 09:57 Dose: 5,000 unit Documented by: Cefazolin Sodium () 1 gm in 50 mls @ 100 mls/hr IV Q12 [facility] Last Infusion: 03/23/20 10:37 Dose: Infused Documented by: Insulin Glargine (Insulin Glargine 100 Units/Ml Pen) 10 units SC 1100,2200 [facility] Last Admin: 03/23/20 13:16 Dose: 10 units Documented by: Insulin Human Lispro (Insulin Lispro 100 Unit/Ml Insuln.Pen) 0 unit SC ACHS [facility]; Protocol Last Admin: 03/23/20 08:18 Dose: 1 units Documented by: Insulin Human Lispro (Insulin Lispro 100 Unit/Ml Insuln.Pen) 5 unit SC TIDAC [facility] Last Admin: 03/23/20 08:17 Dose: 5 u Documented by: Loperamide HCl (Loperamide 2 Mg Capsule) 2 mg PO Q2H PRN PRN PRN Reason: Diarrhea Magnesium Hydroxide (Magnesium Hydroxide 30 Ml Udc) 30 ml PO DAILY PRN PRN PRN Reason: Constipation Melatonin (Melatonin 10 Mg Tablet) 10 mg PO QHS PRN PRN PRN Reason: INSOMNIA Last Admin: 03/22/20 21:09 Dose: 10 mg Documented by: Metoprolol Succinate (Metoprolol(Xl)Succ 25 Mg Tablet) 25 mg PO DAILY [facility] Last Admin: 03/23/20 09:58 Dose: 25 mg Documented by: Nitroglycerin (Nitroglycerin (Inpatient Use) 0.4 Mg Tab.Subl) 0.4 mg SUBLINGUAL Q5M PRN PRN Reason: CARDIAC/CHEST PAIN Ondansetron HCl (Ondansetron 4 Mg/2 Ml Vial) 4 mg IV Q8H PRN PRN PRN Reason: NAUSEA/VOMITING Oxycodone HCl (Oxycodone 5 Mg Tablet) 5 mg PO Q4H PRN PRN PRN Reason: Pain Score 4-5 Last Admin: 03/23/20 11:34 Dose: 5 mg Documented by: Pantoprazole Sodium (Pantoprazole Sodium 40 Mg Tablet) 40 mg PO DAILY [facility] Last Admin: 03/23/20 09:58 Dose: 40 mg Documented by: Prochlorperazine Edisylate (Prochlorperazine 10 Mg/2 Ml Vial) 5 mg IV Q4H PRN PRN PRN Reason: Breakthrough Nausea/Vomiting Psyllium Hydrophilic Mucilloid (Psyllium 1 Packet) 1 packet PO DAILY PRN PRN PRN Reason: Constipation Senna/Docusate Sodium (Senna/Docusate Sodium 1 Tablet) 2 tablet PO BID PRN PRN PRN Reason: Constipation Sodium Chloride (0.9% Saline Lock 10 Ml Syringe) 10 - 40 ml IV UD PRN PRN Reason: SALINE FLUSH Last Admin: 03/23/20 11:33 Dose: 10 ml Documented by: Throat Lozenges (Benzocaine/Menthol 1 Lozenge) 1 lozenge MUCOUS MEM Q2H PRN PRN PRN Reason: SORE THROAT Medical Necessity - Tobacco Use Smoking Status: Former smoker Tobacco Use: Non-smoker Assessment/Plan All Active Problems (Last Reviewed 01/21/20 @ 10:[address] Jacob Byrd MD) Acute on chronic systolic CHF (congestive heart failure) (Acute) Acute exacerbation of CHF (congestive heart failure) (Acute) Hypoxia (Acute) Dyspnea (Acute) Acute kidney injury superimposed on CKD (Acute) Congestive heart failure (Acute) Hyperkalemia (Acute) Dyspnea on exertion (Acute) Orthopnea (Acute) Acute exacerbation of CHF (congestive heart failure) (Resolved) Acute on chronic combined systolic (congestive) and diastolic (congestive) heart failure (Resolved) Acute respiratory failure with hypoxia (Resolved) CHF exacerbation (Resolved) COPD exacerbation (Resolved) COPD exacerbation (Resolved) Chronic ulcer of buttock (Resolved) Flash pulmonary edema (Resolved) 1. Acute combined systolic/diastolic CHF with chronic hypoxic respiratory failure-BNP greater than 5000. Echocardiogram November 2019 at [facility] demonstrated an EF of 25%. Repeat echocardiogram demonstrates an EF of 25 to 30%, stage II diastolic dysfunction, pulmonary artery systolic pressure 55 mmHg, severe tricuspid valve insufficiency, severe mitral valve insufficiency, severe hypokinesis of the anterior wall, lateral wall, septum and apex, moderately enlarged left atrium and mildly enlarged right atrium. Patient down approximately 20 pounds since admission. Strict I&O. Daily weight. On baseline home O2 requirements. Continue supplement oxygen to maintain O2 at above 90%. Transitioned from IV Lasix to oral Lasix 40 mg twice daily. 2. Acute kidney injury on chronic kidney disease stage III-stable. Trend BMP. 3. Right upper quadrant pain/elevated alk phos-unclear etiology. Denies nausea, vomiting. Alk phos trending down. Abdominal ultrasound demonstrates gallstones and mild gallbladder wall thickening. Negative Farias sign. Hepatomegaly and diffuse increased hepatic echogenicity which may indicate steatosis versus hepatocellular disease. Patient denies further pain. If recurrent pain, will need repeat gallbladder ultrasound and referral to general surgery. 4. Hypervolemic hyponatremia-improved with diuresis. 5. Type 2 diabetes mellitus-hemoglobin A1c 7%. Continue home insulin regimen. 6. Anxiety/depression-continue BuSpar. 7. Carotid artery disease-history of right carotid endarterectomy. Continue aspirin, Plavix, statin. 8. Hypertension-stable, continue metoprolol, spironolactone. Lisinopril discontinued due to renal function. 9. Hyperlipidemia-continue statin. 10. Morbid obesity-encouraged diet lifestyle modifications. 11. Former tobacco use-encouraged continued cessation. 12. History of CVA-continue aspirin, Plavix, statin. 13. Chronic normocytic anemia-at baseline, trend CBC. 14. Acute Proteus Mirabilis UTI-culture grew greater than 100,000 colony count Proteus. Initiated on cefazolin. 15. Multivessel CAD with history of stents-continue aspirin, statin, Plavix, metoprolol. Continue outpatient follow-up with cardiology. DVT prophylaxis-Heparin, SCDs Discharge planning: Awaiting pre-CERT to SNF. This patient was seen by ORIN Hadley under the supervision of Dr. Palomo. <Poli Palomo F - Last Filed: 03/23/20 15:03> - Physical Exam Vitals/I&O's: Vital Signs Temp Pulse Resp BP Pulse Ox 99.9 F H 95 18 120/70 98 03/23/20 13:26 03/23/20 13:26 03/23/20 13:26 03/23/20 13:26 03/23/20 13:26 Oxygen Flow Rate (L/min) 2 Oxygen Delivery Method Nasal Cannula Weight: 179 lb 3.773 oz Body Mass Index (BMI) 37.3 Intake and Output for Last 24 Hours 03/21/20 03/22/20 03/23/20 23:59 23:59 23:59 Intake Total 1110 / 1230 990 / 1110 630 / 630 Output Total 1725 / 2125 1700 / 2420 1320 / 1320 Balance -615 / -895 -710 / -1310 -690 / -690 Microbiology Past 72 Hours 03/19/20 18:30 Urine, Catheterized Urine Culture - Final Proteus mirabilis Laboratory Results 03/22/20 17:00: POC Glucose 146 H 03/22/20 21:25: POC Glucose 166 H 03/23/20 05:40: WBC 9.0, RBC 3.11 L, Hgb 7.8 L, Hct 26.3 L, MCV 84.6, MCH 25.1 L , MCHC 29.7 L, RDW Std Deviation 71.8 H, RDW Coeff of Jade 23.4 H, Plt Count 293, MPV 8.9, Differential Comment SCANNED 03/23/20 05:40: Sodium 137, Potassium 4.4, Chloride 103, Carbon Dioxide 25.0, Anion Gap 9, BUN 48 H, Creatinine 2.14 H, Estim Creat Clear Calc 34.09, Est GFR (MDRD) Af Amer 30 L, Est GFR (MDRD) Non-Af 25 L, BUN/Creatinine Ratio 22.4 H, Glucose 167 H, Calcium 8.4 L 03/23/20 08:10: POC Glucose 162 H 03/23/20 09:20: COVID-19 (MICHELLE) Not Detected 03/23/20 11:38: POC Glucose 168 H Current Medications Acetaminophen (Acetaminophen 325 Mg Tablet) 650 mg PO Q6H PRN PRN PRN Reason: Pain Score 1-10/Temp > 100.7 F Last Admin: 03/22/20 08:27 Dose: 650 mg Documented by: Al Hydroxide/Mg Hydroxide (Mag Hydrox/Al Hydrox/Simeth 30 Ml Udc) 30 ml PO Q6H PRN PRN PRN Reason: Gastric Burning Albuterol Sulfate (Albuterol 2.5 Mg/3 Ml Vial.Neb.) 2.5 mg INHALATION Q2H PRN PRN PRN Reason: Dyspnea, wheezing Albuterol/Ipratropium (Ipratropium/Albuterol Sulfate 3 Ml Ampul.Neb) 3 ml INHALATION Q6HWA.RT [facility] Last Admin: 03/23/20 12:27 Dose: 3 ml Documented by: Aspirin (Aspirin 81 Mg Tab.Chew) 81 mg PO DAILY@0800 [facility] Last Admin: 03/23/20 08:20 Dose: 81 mg Documented by: Atorvastatin Calcium (Atorvastatin Calcium 80 Mg Tablet) 80 mg PO QHS [facility] Last Admin: 03/22/20 21:32 Dose: 80 mg Documented by: Buspirone HCl (Buspirone 5 Mg Tablet) 20 mg PO TID [facility] Last Admin: 03/23/20 13:20 Dose: 20 mg Documented by: Calamine/Phenol (Menthol/Lanolin/Calamine/Znox 113 Gm Tube) 1 applic TOPICAL BID [facility]; Protocol Last Admin: 03/23/20 09:56 Dose: 1 applicatio Documented by: Cholecalciferol (Cholecalciferol (Vit D3) 1,000 Unit (25mcg)) 2,000 unit PO DAILY [facility] Last Admin: 03/23/20 09:58 Dose: 2,000 unit Documented by: Clopidogrel Bisulfate (Clopidogrel Bisulfate 75 Mg Tablet) 75 mg PO DAILY [facility] Last Admin: 03/23/20 09:57 Dose: 75 mg Documented by: Dextrose (Dextrose 50%-Water 25 Gm/50 Ml Disp.Syrin) 0 gm IV X1 PRN; Protocol PRN Reason: Hypoglycemia Ferrous Sulfate (Ferrous Sulfate 325 Mg Tablet) 325 mg PO DAILY@1200 [facility] Last Admin: 03/23/20 13:20 Dose: 325 mg Documented by: Furosemide (Furosemide 40 Mg Tablet) 40 mg PO BID@1000,1800 [facility] Last Admin: 03/23/20 09:57 Dose: 40 mg Documented by: Glucagon (Glucagon 1 Mg/Ml Syringe) 1 mg IM .X1 PRN PRN Reason: Hypoglycemia Guaifenesin (Guaifenesin 10 Ml Udc (200mg/10ml)) 20 ml PO Q4H PRN PRN PRN Reason: COUGH Heparin Sodium (Porcine) (Heparin Injection (Vial) 5,000 Unit/Ml Vial) 5,000 unit SC Q12 [facility] Last Admin: 03/23/20 09:57 Dose: 5,000 unit Documented by: Cefazolin Sodium () 1 gm in 50 mls @ 100 mls/hr IV Q12 [facility] Last Infusion: 03/23/20 10:37 Dose: Infused Documented by: Insulin Glargine (Insulin Glargine 100 Units/Ml Pen) 10 units SC 1100,2200 [facility] Last Admin: 03/23/20 13:16 Dose: 10 units Documented by: Insulin Human Lispro (Insulin Lispro 100 Unit/Ml Insuln.Pen) 0 unit SC ACHS [facility]; Protocol Last Admin: 03/23/20 14:53 Dose: 1 units Documented by: Insulin Human Lispro (Insulin Lispro 100 Unit/Ml Insuln.Pen) 5 unit SC TIDAC [facility] Last Admin: 03/23/20 14:53 Dose: 5 u Documented by: Loperamide HCl (Loperamide 2 Mg Capsule) 2 mg PO Q2H PRN PRN PRN Reason: Diarrhea Magnesium Hydroxide (Magnesium Hydroxide 30 Ml Udc) 30 ml PO DAILY PRN PRN PRN Reason: Constipation Melatonin (Melatonin 10 Mg Tablet) 10 mg PO QHS PRN PRN PRN Reason: INSOMNIA Last Admin: 03/22/20 21:09 Dose: 10 mg Documented by: Metoprolol Succinate (Metoprolol(Xl)Succ 25 Mg Tablet) 25 mg PO DAILY [facility] Last Admin: 03/23/20 09:58 Dose: 25 mg Documented by: Nitroglycerin (Nitroglycerin (Inpatient Use) 0.4 Mg Tab.Subl) 0.4 mg SUBLINGUAL Q5M PRN PRN Reason: CARDIAC/CHEST PAIN Ondansetron HCl (Ondansetron 4 Mg/2 Ml Vial) 4 mg IV Q8H PRN PRN PRN Reason: NAUSEA/VOMITING Oxycodone HCl (Oxycodone 5 Mg Tablet) 5 mg PO Q4H PRN PRN PRN Reason: Pain Score 4-5 Last Admin: 03/23/20 11:34 Dose: 5 mg Documented by: Pantoprazole Sodium (Pantoprazole Sodium 40 Mg Tablet) 40 mg PO DAILY [facility] Last Admin: 03/23/20 09:58 Dose: 40 mg Documented by: Prochlorperazine Edisylate (Prochlorperazine 10 Mg/2 Ml Vial) 5 mg IV Q4H PRN PRN PRN Reason: Breakthrough Nausea/Vomiting Psyllium Hydrophilic Mucilloid (Psyllium 1 Packet) 1 packet PO DAILY PRN PRN PRN Reason: Constipation Senna/Docusate Sodium (Senna/Docusate Sodium 1 Tablet) 2 tablet PO BID PRN PRN PRN Reason: Constipation Sodium Chloride (0.9% Saline Lock 10 Ml Syringe) 10 - 40 ml IV UD PRN PRN Reason: SALINE FLUSH Last Admin: 03/23/20 11:33 Dose: 10 ml Documented by: Throat Lozenges (Benzocaine/Menthol 1 Lozenge) 1 lozenge MUCOUS MEM Q2H PRN PRN PRN Reason: SORE THROAT Addendum: Dr. Palomo I personally examined the patient and reviewed the chart. I agree with the above. 64-year-old [facility] and abnormal labs. She does have a history of combined systolic/diastolic CHF and was started on Lasix while here. She has had good diuresis as well as 11 pound weight gain. She also had a UA with 500 leukocyte esterase as well as 1+ bacteria. The urine culture is coming back with greater than 100,000 CFU's of the gram-negative arturo therefore she was also started on Ancef which she has tolerated in the past. Feeling much better today, and she is back to her chronic 2 L of oxygen via nasal cannula. However, she is required to have a precertification to return back to her long term facility, therefore we will have her undergo PT/OT for evaluation and restart the process to go back to where she needs to be. 03/22/2020: Feeling well today. She was started on Ancef yesterday for her UTI which has come back as a Proteus mirabilis that is resistant only to Macrobid. We will continue with antibiotics for 5 days total and hopefully by that point she will not need any by the time she receives her precertification from the insurance company to go back to a long term facility. 03/23/2020: Feels about the same today she did yesterday. She has completed 2 days of Ancef for her UTI. Still awaiting precertification for return to her prison. Inpatient E&M: [id number] [facility] L2
[2020-03-23 17:01] LABS: Bedside Glucose 121 mg/dL (70-110)
[2020-03-23] MEDS: Atorvastatin Calcium 80 MG Tablet PO (22:54)
[2020-03-24] VITALS (10 sets, daily range): BP systolic 101–131; BP diastolic 50–75; PULSE 89–103; RESP 16–18; TEMP 37.1–37.7; O2SAT 96–98
[2020-03-24 00:40] LABS: Bedside Glucose 102 mg/dL (70-110)
[2020-03-24] MEDS: Acetaminophen 325 MG Tablet 650 MG PO ×2 (03:35→21:38)
[2020-03-24] MEDS: oxyCODONE 5 MG Tablet PO ×4 (04:33→21:40)
[2020-03-24] MEDS: Cephalexin 250 MG Capsule PO ×3 (04:34→17:29)
[2020-03-24] MEDS: busPIRone 5 MG Tablet 20 MG PO ×3 (06:17→21:00)
[2020-03-24 06:18] LABS: Hemoglobin 8.1 g/dL (12.0-15.0); Mean Corpuscular Hgb 25.3 pg (27.0-32.0); Mean Corpuscular Volume 84.4 fL (81-99); Mean Platelet Vol. 9.1 fl (6.2-12.0); POSITIVE MORPHOLOGY YES; Platelet Count 315 K/mm3 (150-450); RBC Distribution Width CV 23.5 % (11.6-14.6); RBC Distribution Width SD 72.7 fl (35.1-43.9); White Blood Count 10.5 K/mm3 (4.4-11.0)
[2020-03-24 06:29] LABS: Scan Indicated on CBC? Y/N YES- FLAGS NOTED
[2020-03-24] MEDS: Ipratropium/Albuterol Sulfate 3 ML AMPUL.NEB INHALATION (06:44)
[2020-03-24 06:45] LABS: BUN 48 mg/dL (7-18); BUN/Creat Ratio 21.9 RATIO (10-20); Calcium,Total 8.8 mg/dL (8.5-10.1); Chloride 101 mmol/L (98-107); Creatinine, Serum 2.19 mg/dL (0.55-1.02); EST Glomerular Filtration Rate 24 mL/min (>60); Est Glom Filt Rate - Afr Amer 29 mL/min (>60); Estimated Creatinine Clearance 33.31 ml/min; Glucose 113 mg/dL (74-106); Potassium 4.1 mmol/L (3.5-5.1); Sodium Level 135 mmol/L (136-145)
[2020-03-24 06:46] LABS: Anion Gap 8 (5-15)
[2020-03-24 07:21] LABS: Bedside Glucose 115 mg/dL (70-110)
--- NOTE | 2020-03-24 07:26 | CASEMGMT ---
Updates were sent to [facility] yesterday. Patient does not need to do PT/OT as she will be returning to [facility] under intermediate level of care. Shanique CONNOR MSW
[2020-03-24 07:37] LABS: Differential Comment SCANNED
[2020-03-24] MEDS: Aspirin 81 MG TAB.CHEW PO (08:12)
[2020-03-24] MEDS: Insulin Lispro 100 UNIT/ML INSULN.PEN SC ×5 (08:13→21:00)
--- NOTE | 2020-03-24 10:52 | CASEMGMT ---
Addendum entered by Shanique Ulloa 03/24/20 11:23: JAX called [facility] Utilization Management Department at and spoke with Rae. JAX scheduled a peer to peer for patient with Nurse Practitioner Indu Royal for 2p today with Dr Bah. SW called therapy and asked that they come and see patient as insurance does want to see therapy notes to show she needs assistance. SW spoke with patient and told her she will need to do therapy so we can show insurance she needs assistance with adl's and iadl's. She said she will do therapy. Plan: HUSAM Tolbert to do peer to peer with [facility] to get approval for SNF. Shanique CONNOR CAPACITOR PACK PRESS OPERATOR Original Note: SW received a voice mail from [employer] at [facility]. She said patient was denied skilled and intermediate level of care. She sent SW the letter from insurance indicating reasons for denial. SW will talk with patient. She can appeal the denial. The expedited appeal can take 72 hours. JAX will talk with patient. Shanique CONNOR CAPACITOR PACK PRESS OPERATOR
[2020-03-24] MEDS: Menthol/Lanolin/Calamine/Znox 113 GM Tube 1 APPLIC TOPICAL (11:12)
[2020-03-24] MEDS: Clopidogrel Bisulfate 75 MG Tablet PO (11:13)
[2020-03-24] MEDS: Pantoprazole Sodium 40 MG Tablet PO (11:14)
[2020-03-24] MEDS: Metoprolol(XL)Succ 25 MG Tablet PO (11:14)
[2020-03-24] MEDS: Furosemide 40 MG Tablet PO ×2 (11:14→17:30)
[2020-03-24] MEDS: Heparin Injection (Vial) 5,000 UNIT/ML VIAL 5000 UNIT SC (11:21)
--- NOTE | 2020-03-24 11:33 | CASEMGMT ---
JAX also called Karin at [facility] and left her a voice mail letting her know the denial is being appealed. Shanique CONNOR MSW
[2020-03-24] MEDS: Ferrous Sulfate 325 MG Tablet PO (13:03)
[2020-03-24 13:15] LABS: Bedside Glucose 119 mg/dL (70-110)
--- NOTE | 2020-03-24 14:39 | CASEMGMT ---
SW received a return call from Karin at [facility]. She said they are not going to accept patient back because of the denial. SW asked if the denial is overturned after peer to peer will they take her back. She said she does not think so, but she will run it past the clinical team. She asked SW to let her know the results of the peer to peer. HUSAM Spicer did the peer to peer and patient was approved. SW called [facility] and left her a voice mail letting her know patient was approved and to let SW know if they are accepting her back. Shanique CONNOR MSW
--- NOTE | 2020-03-24 14:56 | PN_ITS ---
Patient Problems: Active and Suspected Problems (Last Reviewed 01/21/20 @ 10:[address] Jacob Byrd MD) Acute on chronic systolic CHF (congestive heart failure) (Acute) Acute exacerbation of CHF (congestive heart failure) (Acute) Acute kidney injury superimposed on CKD (Acute) Congestive heart failure (Acute) Hyperkalemia (Acute) Subjective: Patient seen and examined. Denies current symptoms or complaints. Agreeable to work with therapy today. Approved by insurance for SNF however awaiting facility acceptance. - Physical Exam Vitals/I&O's: Vital Signs Temp Pulse Resp BP Pulse Ox 98.7 F 94 18 101/69 97 03/24/20 12:54 03/24/20 12:54 03/24/20 12:54 03/24/20 12:54 03/24/20 12:54 Oxygen Flow Rate (L/min) 2 Oxygen Delivery Method Nasal Cannula Weight: 181 lb 14.102 oz Body Mass Index (BMI) 37.3 Intake and Output for Last 24 Hours 03/22/20 03/23/20 03/24/20 23:59 23:59 23:59 Intake Total 990 / 1110 1080 / 1080 600 / 600 Output Total 1700 / 2420 1620 / 1620 1325 / 1325 Balance -710 / -1310 -540 / -540 -725 / -725 General: Alert, Oriented x3, Cooperative HEENT: Atraumatic, PERRLA, EOMI, Normocephalic Neck: Supple, No JVD, Negative Carotid Bruits Lungs: Clear to auscultation, Diminished Cardiovascular: Regular rate, No murmurs Abdomen: Bowel Sounds Present, Soft, Non Tender, Non-Distended Extremities: No clubbing, No cyanosis, No edema, Capillary Refill Less than 3 Seconds Skin: No rashes, No breakdown Musculoskeletal: No Tenderness to Palpation of Joints or Extremities Neurological: Cranial nerves II-XII grossly intact, Neuro grossly intact Psych/Mental Status: Flat Affect Microbiology Past 72 Hours 03/19/20 18:30 Urine, Catheterized Urine Culture - Final Proteus mirabilis Laboratory Results 03/23/20 16:54: POC Glucose 121 H 03/23/20 22:50: POC Glucose 102 03/24/20 05:10: WBC 10.5, RBC 3.20 L, Hgb 8.1 L, Hct 27.0 L, MCV 84.4, MCH 25.3 L, MCHC 30.0 L, RDW Std Deviation 72.7 H, RDW Coeff of Jade 23.5 H, Plt Count 315, MPV 9.1, Differential Comment SCANNED 03/24/20 05:10: Sodium 135 L, Potassium 4.1, Chloride 101, Carbon Dioxide 26.0, Anion Gap 8, BUN 48 H, Creatinine 2.19 H, Estim Creat Clear Calc 33.31, Est GFR (MDRD) Af Amer 29 L, Est GFR (MDRD) Non-Af 24 L, BUN/Creatinine Ratio 21.9 H, Glucose 113 H, Calcium 8.8 03/24/20 06:53: POC Glucose 115 H 03/24/20 12:53: POC Glucose 119 H Current Medications Acetaminophen (Acetaminophen 325 Mg Tablet) 650 mg PO Q6H PRN PRN PRN Reason: Pain Score 1-10/Temp > 100.7 F Last Admin: 03/24/20 03:35 Dose: 650 mg Documented by: Al Hydroxide/Mg Hydroxide (Mag Hydrox/Al Hydrox/Simeth 30 Ml Udc) 30 ml PO Q6H PRN PRN PRN Reason: Gastric Burning Albuterol Sulfate (Albuterol 2.5 Mg/3 Ml Vial.Neb.) 2.5 mg INHALATION Q2H PRN PRN PRN Reason: Dyspnea, wheezing Albuterol/Ipratropium (Ipratropium/Albuterol Sulfate 3 Ml Ampul.Neb) 3 ml INHALATION Q6HWA.RT [facility] Last Admin: 03/24/20 06:44 Dose: 3 ml Documented by: Aspirin (Aspirin 81 Mg Tab.Chew) 81 mg PO DAILY@0800 [facility] Last Admin: 03/24/20 08:12 Dose: 81 mg Documented by: Atorvastatin Calcium (Atorvastatin Calcium 80 Mg Tablet) 80 mg PO QHS [facility] Last Admin: 03/23/20 22:54 Dose: 80 mg Documented by: Buspirone HCl (Buspirone 5 Mg Tablet) 20 mg PO TID [facility] Last Admin: 03/24/20 13:09 Dose: 20 mg Documented by: Calamine/Phenol (Menthol/Lanolin/Calamine/Znox 113 Gm Tube) 1 applic TOPICAL BID [facility]; Protocol Last Admin: 03/24/20 11:12 Dose: 1 applicatio Documented by: Cephalexin (Cephalexin 250 Mg Capsule) 250 mg PO Q6 [facility] Last Admin: 03/24/20 13:03 Dose: 250 mg Documented by: Cholecalciferol (Cholecalciferol (Vit D3) 1,000 Unit (25mcg)) 2,000 unit PO DAILY [facility] Last Admin: 03/24/20 11:13 Dose: 2,000 unit Documented by: Clopidogrel Bisulfate (Clopidogrel Bisulfate 75 Mg Tablet) 75 mg PO DAILY [facility] Last Admin: 03/24/20 11:13 Dose: 75 mg Documented by: Dextrose (Dextrose 50%-Water 25 Gm/50 Ml Disp.Syrin) 0 gm IV X1 PRN; Protocol PRN Reason: Hypoglycemia Ferrous Sulfate (Ferrous Sulfate 325 Mg Tablet) 325 mg PO DAILY@1200 [facility] Last Admin: 03/24/20 13:03 Dose: 325 mg Documented by: Furosemide (Furosemide 40 Mg Tablet) 40 mg PO BID@1000,1800 [facility] Last Admin: 03/24/20 11:14 Dose: 40 mg Documented by: Glucagon (Glucagon 1 Mg/Ml Syringe) 1 mg IM .X1 PRN PRN Reason: Hypoglycemia Guaifenesin (Guaifenesin 10 Ml Udc (200mg/10ml)) 20 ml PO Q4H PRN PRN PRN Reason: COUGH Heparin Sodium (Porcine) (Heparin Injection (Vial) 5,000 Unit/Ml Vial) 5,000 unit SC Q12 [facility] Last Admin: 03/24/20 11:21 Dose: 5,000 unit Documented by: Insulin Glargine (Insulin Glargine 100 Units/Ml Pen) 10 units SC 1100,2200 [facility] Last Admin: 03/24/20 13:02 Dose: 10 units Documented by: Insulin Human Lispro (Insulin Lispro 100 Unit/Ml Insuln.Pen) 0 unit SC ACHS [facility]; Protocol Last Admin: 03/24/20 13:00 Dose: Not Given Documented by: Insulin Human Lispro (Insulin Lispro 100 Unit/Ml Insuln.Pen) 5 unit SC TIDAC [facility] Last Admin: 03/24/20 13:02 Dose: 5 u Documented by: Loperamide HCl (Loperamide 2 Mg Capsule) 2 mg PO Q2H PRN PRN PRN Reason: Diarrhea Magnesium Hydroxide (Magnesium Hydroxide 30 Ml Udc) 30 ml PO DAILY PRN PRN PRN Reason: Constipation Melatonin (Melatonin 10 Mg Tablet) 10 mg PO QHS PRN PRN PRN Reason: INSOMNIA Last Admin: 03/22/20 21:09 Dose: 10 mg Documented by: Metoprolol Succinate (Metoprolol(Xl)Succ 25 Mg Tablet) 25 mg PO DAILY [facility] Last Admin: 03/24/20 11:14 Dose: 25 mg Documented by: Nitroglycerin (Nitroglycerin (Inpatient Use) 0.4 Mg Tab.Subl) 0.4 mg SUBLINGUAL Q5M PRN PRN Reason: CARDIAC/CHEST PAIN Ondansetron HCl (Ondansetron 4 Mg/2 Ml Vial) 4 mg IV Q8H PRN PRN PRN Reason: NAUSEA/VOMITING Oxycodone HCl (Oxycodone 5 Mg Tablet) 5 mg PO Q4H PRN PRN PRN Reason: Pain Score 4-5 Last Admin: 03/24/20 08:16 Dose: 5 mg Documented by: Pantoprazole Sodium (Pantoprazole Sodium 40 Mg Tablet) 40 mg PO DAILY [facility] Last Admin: 03/24/20 11:14 Dose: 40 mg Documented by: Prochlorperazine Edisylate (Prochlorperazine 10 Mg/2 Ml Vial) 5 mg IV Q4H PRN PRN PRN Reason: Breakthrough Nausea/Vomiting Psyllium Hydrophilic Mucilloid (Psyllium 1 Packet) 1 packet PO DAILY PRN PRN PRN Reason: Constipation Senna/Docusate Sodium (Senna/Docusate Sodium 1 Tablet) 2 tablet PO BID PRN PRN PRN Reason: Constipation Sodium Chloride (0.9% Saline Lock 10 Ml Syringe) 10 - 40 ml IV UD PRN PRN Reason: SALINE FLUSH Last Admin: 03/23/20 11:33 Dose: 10 ml Documented by: Throat Lozenges (Benzocaine/Menthol 1 Lozenge) 1 lozenge MUCOUS MEM Q2H PRN PRN PRN Reason: SORE THROAT Medical Necessity - Tobacco Use Smoking Status: Former smoker Tobacco Use: Non-smoker Assessment/Plan All Active Problems (Last Reviewed 01/21/20 @ 10:[address] Jacob Byrd MD) Acute on chronic systolic CHF (congestive heart failure) (Acute) Acute exacerbation of CHF (congestive heart failure) (Acute) Hypoxia (Acute) Dyspnea (Acute) Acute kidney injury superimposed on CKD (Acute) Congestive heart failure (Acute) Hyperkalemia (Acute) Dyspnea on exertion (Acute) Orthopnea (Acute) Acute exacerbation of CHF (congestive heart failure) (Resolved) Acute on chronic combined systolic (congestive) and diastolic (congestive) heart failure (Resolved) Acute respiratory failure with hypoxia (Resolved) CHF exacerbation (Resolved) COPD exacerbation (Resolved) COPD exacerbation (Resolved) Chronic ulcer of buttock (Resolved) Flash pulmonary edema (Resolved) 1. Acute combined systolic/diastolic CHF with chronic hypoxic respiratory failure-BNP greater than 5000. Echocardiogram November 2019 at [facility] demonstrated an EF of 25%. Repeat echocardiogram demonstrates an EF of 25 to 30%, stage II diastolic dysfunction, pulmonary artery systolic pressure 55 mmHg, severe tricuspid valve insufficiency, severe mitral valve insufficiency, severe hypokinesis of the anterior wall, lateral wall, septum and apex, moderately enlarged left atrium and mildly enlarged right atrium. Patient down approximately 20 pounds since admission. Strict I&O. Daily weight. On baseline home O2 requirements. Continue supplement oxygen to maintain O2 at above 90%. Transitioned from IV Lasix to oral Lasix 40 mg twice daily. 2. Acute kidney injury on chronic kidney disease stage III-stable. Trend BMP. 3. Right upper quadrant pain/elevated alk phos-unclear etiology. Denies nausea, vomiting. Alk phos trending down. Abdominal ultrasound demonstrates gallstones and mild gallbladder wall thickening. Negative Farias sign. Hepatomegaly and diffuse increased hepatic echogenicity which may indicate steatosis versus hepatocellular disease. Patient denies further pain. If recurrent pain, will need repeat gallbladder ultrasound and referral to general surgery. 4. Hypervolemic hyponatremia-improved with diuresis. 5. Type 2 diabetes mellitus-hemoglobin A1c 7%. Continue home insulin regimen. 6. Anxiety/depression-continue BuSpar. 7. Carotid artery disease-history of right carotid endarterectomy. Continue aspirin, Plavix, statin. 8. Hypertension-stable, continue metoprolol, spironolactone. Lisinopril discontinued due to renal function. 9. Hyperlipidemia-continue statin. 10. Morbid obesity-encouraged diet lifestyle modifications. 11. Former tobacco use-encouraged continued cessation. 12. History of CVA-continue aspirin, Plavix, statin. 13. Chronic normocytic anemia-at baseline, trend CBC. 14. Acute Proteus Mirabilis UTI-culture grew greater than 100,000 colony count Proteus. Initiated on cefazolin. 15. Multivessel CAD with history of stents-continue aspirin, statin, Plavix, metoprolol. Continue outpatient follow-up with cardiology. DVT prophylaxis-Heparin, SCDs Discharge planning: Awaiting SNF approval. This patient was seen by ORIN Hadley under the supervision of Dr. Phong hoang.
--- NOTE | 2020-03-24 14:58 | PCM.EXTCARCO ---
- Diet 03/18/20 20:03 Diet: Cardiac: Calorie-Controlled Food consistency:: Regular Liquid Consistency:: Regular/Thin Dietary Modifications:: Sodium Restricted Fluid restriction:: 1500 mL How many daily calories?: 1800 calorie - Routine Orders/Code Status Enema Type: Fleetz Enema Frequency: Daily PRN Suppository Type: Dulcolax 10mg Suppository Frequency: Daily PRN O2 Frequency: Continuous Keep PO Greater than or Equal to (%): 90 Routine Lab Work: - - Weekly CBC, BMP Code Status: Full Code - Suggestions for Active Care Change Position every (hours): 2 Times a day to sit in chair: 3 - Therapies Physical Therapy: Eval and Treat Occupational Therapy: Eval and Treat - Problem/Diagnosis (1) Acute on chronic systolic CHF (congestive heart failure) Status: Acute (2) Acute kidney injury superimposed on CKD Status: Acute (3) History of coronary artery stent placement Status: Chronic Comment: PCI-JAZIEL-LAD w/ 2.0 x 30 mm and 2.5 x 34 mm Resolute [place] and PCI-JAZIEL-Mid LCx w/ Resolute [place] 2.0 x 30 mm and 2.0 x 22 mm Stent 05/18/2018 (4) Essential (primary) hypertension Status: Chronic (5) Hyperlipidemia Status: Chronic (6) CVA (cerebral vascular accident) Status: Chronic (7) PAD (peripheral artery disease) Status: Chronic (8) Debility Status: Chronic - Allergies/Procedures Done in Hospital Allergies/Adverse Reactions: Allergies Penicillins Allergy (Severe, Verified 03/18/20 16:07) Swelling tolerated keflex in past with no issue fluoxetine [From Prozac] Adverse Reaction (Verified 03/18/20 16:07) NEEDS FOLLOW-UP pravastatin [From Pravachol] Adverse Reaction (Verified 03/18/20 16:07) NEEDS FOLLOW-UP Procedures: None - Type of Care/Length of Stay Estimated LOS: More Than 30 Days Type of Care Needed: Skilled Rehab Potential: Fair Prognosis: Fair - Additional Orders/Day of Discharge Additional Orders: Continue Lasix 40 mg twice daily for 1 week then transition to Lasix 40 mg daily. Follow-up with cardiology in 2 weeks. Follow CBC, BMP weekly. Patient initially had right upper quadrant pain on admission. Abdominal ultrasound showed gallstones with mild gallbladder wall thickening. Negative Farias sign. Patient's pain resolved and tolerating diet. If patient has recurrent pain, will need repeat gallbladder ultrasound and follow-up with general surgery. H&P will serve as current which was dated: 03/18/20 Day of Discharge: 03/24/20 - Dietary and Speech Recommendations Dietitian Recommendations/Changes: Continue 1800 sharon/cardiac; sodium-restricted; 1500 ml FR. Monitor need for protein-restriction given elevated BUN/Creat. - Follow Up Care Primary Care Physician: Evens Jimenez III, MD [Primary Care Provider] - Please follow up with your Primary Care Physician in: 1 Week Please Follow Up With: Barb Demarco, PA When: 2 Weeks
--- NOTE | 2020-03-24 14:59 | PCM.DC.SUM ---
<[employer] - Last Filed: 03/24/20 15:06> Discharge Date and Diagnosis - Problem List Patient Problems: Active and Suspected Problems (Last Reviewed 01/21/20 @ 10:[address] Jacob Byrd MD) Acute on chronic systolic CHF (congestive heart failure) (Acute) Acute exacerbation of CHF (congestive heart failure) (Acute) Acute kidney injury superimposed on CKD (Acute) Congestive heart failure (Acute) Hyperkalemia (Acute) Date of Admission: 03/18/20 Date of Discharge: 03/24/20 - Primary Discharge Diagnosis Acute Problems: Active Problems (Last Reviewed 01/21/20 @ 10:[address] Jacob Byrd MD) 1. Acute combined systolic/diastolic CHF with chronic hypoxic respiratory failure 2. Acute kidney injury on chronic kidney disease stage III 3. Right upper quadrant pain/elevated alk phos-acute cholecystitis ruled out 4. Hypervolemic hyponatremia 5. Type 2 diabetes mellitus 6. Anxiety/depression 7. Carotid artery disease 8. Hypertension 9. Hyperlipidemia 10. Morbid obesity 11. Former tobacco use 12. History of CVA 13. Chronic normocytic anemia 14. Asymptomatic bacteriuria 15. Multivessel CAD with history of stents - Secondary Discharge Diagnosis Chronic Problems: Chronic Problems (Last Reviewed 01/21/20 @ 10:[address] Jacob Byrd MD) Acute kidney injury superimposed on chronic kidney disease (Chronic) Atherosclerosis of coronary artery of [place] heart without angina pectoris (Chronic) History of coronary artery stent placement (Chronic 05/18/18) PCI-JAZIEL-LAD w/ 2.0 x 30 mm and 2.5 x 34 mm Resolute Issa and PCI-JAZIEL-Mid LCx w/ Resolute Dinosaur 2.0 x 30 mm and 2.0 x 22 mm Stent 05/18/2018 Chronic combined systolic and diastolic CHF (congestive heart failure) (Chronic) Bilateral carotid artery stenosis (Chronic) RCEA and L carotid 70-80% stenosis Non-rheumatic tricuspid valve insufficiency (Chronic) Nonrheumatic mitral (valve) insufficiency (Chronic) Secondary pulmonary arterial hypertension (Chronic) Essential (primary) hypertension (Chronic) Hyperlipidemia (Chronic) CVA (cerebral vascular accident) (Chronic) PAD (peripheral artery disease) (Chronic) Debility (Chronic) Hospital Course and Treatment Imaging Results: Diagnostic Data Chest X-Ray 03/18/20 17:05 IMPRESSION: No acute process Electronically Signed: Jah Correa MD at 17:37 EDT , Service support , Abdomen Ultrasound 03/18/20 18:39 IMPRESSION: Right pleural effusion. Gallstones and mild gallbladder wall thickening. Negative sonographic Farias''s sign. Hepatomegaly and diffusely increased hepatic echogenicity may indicate steatosis versus hepatocellular disease as clinically indicated. Atrophic right kidney. Electronically Signed: Ambrosio Espitia, at 20:27 EDT Tel , Service support , Operations: None Procedures: None Summary of Care Provided: The patient is a 64 year old F 1. Acute combined systolic/diastolic CHF with chronic hypoxic respiratory failure-BNP greater than 5000. Echocardiogram November 2019 demonstrated an EF of 25%. Repeat echocardiogram demonstrates an EF of 25 to 30%, stage II diastolic dysfunction, pulmonary artery systolic pressure 55 mmHg, severe tricuspid valve insufficiency, severe mitral valve insufficiency, severe hypokinesis of the anterior wall, lateral wall, septum and apex, moderately enlarged left atrium and mildly enlarged right atrium.. Patient down approximately 20 pounds since admission. Lower extremity swelling significantly improving. IV Lasix during admission. Strict I&O. Daily weight. On baseline home O2 requirements. Continue supplement oxygen to maintain O2 at above 90%. Lasix 40 mg twice daily at discharge for 1 week and then changed to Lasix 40 mg daily. Pending trending of BMP, may consider leaving patient on 40 mg twice daily given significantly reduced EF however this will depend on renal function. Patient was using Lasix 40 mg as needed only prior to admission. Follow-up with cardiology in 2 weeks. 2. Acute kidney injury on chronic kidney disease stage III-stable. Weekly BMP. 3. Right upper quadrant pain/elevated alk phos-unclear etiology. Denies nausea, vomiting. Alk phos trending down. Abdominal ultrasound demonstrates gallstones and mild gallbladder wall thickening. Negative Farias sign. Hepatomegaly and diffuse increased hepatic echogenicity which may indicate steatosis versus hepatocellular disease. Patient denies further pain. If recurrent pain, will need repeat gallbladder ultrasound and referral to general surgery. 4. Hypervolemic hyponatremia-improved with diuresis. 5. Type 2 diabetes mellitus-hemoglobin A1c 7%. Continue home insulin regimen. 6. Anxiety/depression-continue BuSpar. 7. Carotid artery disease-history of right carotid endarterectomy. Continue aspirin, Plavix, statin. 8. Hypertension-stable, continue metoprolol, spironolactone. Lisinopril discontinued due to renal function. 9. Hyperlipidemia-continue statin. 10. Morbid obesity-encouraged diet lifestyle modifications. 11. Former tobacco use-encouraged continued cessation. 12. History of CVA-continue aspirin, Plavix, statin. 13. Chronic normocytic anemia-at baseline, trend CBC. 14. Acute Proteus Mirabilis UTI-culture grew greater than 100,000 colony count Proteus. Continue Keflex to complete course. 15. Multivessel CAD with history of stents-continue aspirin, statin, Plavix, metoprolol. Continue outpatient follow-up with cardiology. General: Alert, Oriented x3, Cooperative HEENT: Atraumatic, PERRLA, EOMI, Normocephalic Neck: Supple, No JVD, Negative Carotid Bruits Lungs: Clear to auscultation, Diminished Cardiovascular: Regular rate, No murmurs Abdomen: Bowel Sounds Present, Soft, Non Tender, Non-Distended Extremities: No clubbing, No cyanosis, Capillary Refill Less than 3 Seconds, Edema significantly improved, nonpitting bilateral lower extremity edema Skin: No rashes, No breakdown Musculoskeletal: No Tenderness to Palpation of Joints or Extremities Neurological: Cranial nerves II-XII grossly intact, Neuro grossly intact Psych/Mental Status: Flat Affect Patient seen and examined prior to discharge. Physical assessment as noted above. Patient is stable for discharge with follow up recommendations as noted above. This patient was seen by ORIN Hadley under the supervision of Dr. Palomo. Patient Problems: Active and Suspected Problems (Last Reviewed 01/21/20 @ 10:[address] Jacob Byrd MD) Acute on chronic systolic CHF (congestive heart failure) (Acute) Acute exacerbation of CHF (congestive heart failure) (Acute) Acute kidney injury superimposed on CKD (Acute) Congestive heart failure (Acute) Hyperkalemia (Acute) - Physical Exam Vitals/I&O's: Vital Signs Temp Pulse Resp BP Pulse Ox 98.7 F 94 18 101/69 97 03/24/20 12:54 03/24/20 12:54 03/24/20 12:54 03/24/20 12:54 03/24/20 12:54 Oxygen Flow Rate (L/min) 2 Oxygen Delivery Method Nasal Cannula Weight: 181 lb 14.102 oz Body Mass Index (BMI) 37.3 Intake and Output for Last 24 Hours 03/22/20 03/23/20 03/24/20 23:59 23:59 23:59 Intake Total 990 / 1110 1080 / 1080 600 / 600 Output Total 1700 / 2420 1620 / 1620 1325 / 1325 Balance -710 / -1310 -540 / -540 -725 / -725 Microbiology Past 72 Hours 03/19/20 18:30 Urine, Catheterized Urine Culture - Final Proteus mirabilis Laboratory Results 03/23/20 16:54: POC Glucose 121 H 03/23/20 22:50: POC Glucose 102 03/24/20 05:10: WBC 10.5, RBC 3.20 L, Hgb 8.1 L, Hct 27.0 L, MCV 84.4, MCH 25.3 L, MCHC 30.0 L, RDW Std Deviation 72.7 H, RDW Coeff of Jade 23.5 H, Plt Count 315, MPV 9.1, Differential Comment SCANNED 03/24/20 05:10: Sodium 135 L, Potassium 4.1, Chloride 101, Carbon Dioxide 26.0, Anion Gap 8, BUN 48 H, Creatinine 2.19 H, Estim Creat Clear Calc 33.31, Est GFR (MDRD) Af Amer 29 L, Est GFR (MDRD) Non-Af 24 L, BUN/Creatinine Ratio 21.9 H, Glucose 113 H, Calcium 8.8 03/24/20 06:53: POC Glucose 115 H 03/24/20 12:53: POC Glucose 119 H Current Medications Acetaminophen (Acetaminophen 325 Mg Tablet) 650 mg PO Q6H PRN PRN PRN Reason: Pain Score 1-10/Temp > 100.7 F Last Admin: 03/24/20 03:35 Dose: 650 mg Documented by: Al Hydroxide/Mg Hydroxide (Mag Hydrox/Al Hydrox/Simeth 30 Ml Udc) 30 ml PO Q6H PRN PRN PRN Reason: Gastric Burning Albuterol Sulfate (Albuterol 2.5 Mg/3 Ml Vial.Neb.) 2.5 mg INHALATION Q2H PRN PRN PRN Reason: Dyspnea, wheezing Albuterol/Ipratropium (Ipratropium/Albuterol Sulfate 3 Ml Ampul.Neb) 3 ml INHALATION Q6HWA.RT [facility] Last Admin: 03/24/20 06:44 Dose: 3 ml Documented by: Aspirin (Aspirin 81 Mg Tab.Chew) 81 mg PO DAILY@0800 [facility] Last Admin: 03/24/20 08:12 Dose: 81 mg Documented by: Atorvastatin Calcium (Atorvastatin Calcium 80 Mg Tablet) 80 mg PO QHS [facility] Last Admin: 03/23/20 22:54 Dose: 80 mg Documented by: Buspirone HCl (Buspirone 5 Mg Tablet) 20 mg PO TID [facility] Last Admin: 03/24/20 13:09 Dose: 20 mg Documented by: Calamine/Phenol (Menthol/Lanolin/Calamine/Znox 113 Gm Tube) 1 applic TOPICAL BID [facility]; Protocol Last Admin: 03/24/20 11:12 Dose: 1 applicatio Documented by: Cephalexin (Cephalexin 250 Mg Capsule) 250 mg PO Q6 [facility] Last Admin: 03/24/20 13:03 Dose: 250 mg Documented by: Cholecalciferol (Cholecalciferol (Vit D3) 1,000 Unit (25mcg)) 2,000 unit PO DAILY [facility] Last Admin: 03/24/20 11:13 Dose: 2,000 unit Documented by: Clopidogrel Bisulfate (Clopidogrel Bisulfate 75 Mg Tablet) 75 mg PO DAILY [facility] Last Admin: 03/24/20 11:13 Dose: 75 mg Documented by: Dextrose (Dextrose 50%-Water 25 Gm/50 Ml Disp.Syrin) 0 gm IV X1 PRN; Protocol PRN Reason: Hypoglycemia Ferrous Sulfate (Ferrous Sulfate 325 Mg Tablet) 325 mg PO DAILY@1200 [facility] Last Admin: 03/24/20 13:03 Dose: 325 mg Documented by: Furosemide (Furosemide 40 Mg Tablet) 40 mg PO BID@1000,1800 [facility] Last Admin: 03/24/20 11:14 Dose: 40 mg Documented by: Glucagon (Glucagon 1 Mg/Ml Syringe) 1 mg IM .X1 PRN PRN Reason: Hypoglycemia Guaifenesin (Guaifenesin 10 Ml Udc (200mg/10ml)) 20 ml PO Q4H PRN PRN PRN Reason: COUGH Heparin Sodium (Porcine) (Heparin Injection (Vial) 5,000 Unit/Ml Vial) 5,000 unit SC Q12 [facility] Last Admin: 03/24/20 11:21 Dose: 5,000 unit Documented by: Insulin Glargine (Insulin Glargine 100 Units/Ml Pen) 10 units SC 1100,2200 [facility] Last Admin: 03/24/20 13:02 Dose: 10 units Documented by: Insulin Human Lispro (Insulin Lispro 100 Unit/Ml Insuln.Pen) 0 unit SC ACHS [facility]; Protocol Last Admin: 03/24/20 13:00 Dose: Not Given Documented by: Insulin Human Lispro (Insulin Lispro 100 Unit/Ml Insuln.Pen) 5 unit SC TIDAC [facility] Last Admin: 03/24/20 13:02 Dose: 5 u Documented by: Loperamide HCl (Loperamide 2 Mg Capsule) 2 mg PO Q2H PRN PRN PRN Reason: Diarrhea Magnesium Hydroxide (Magnesium Hydroxide 30 Ml Udc) 30 ml PO DAILY PRN PRN PRN Reason: Constipation Melatonin (Melatonin 10 Mg Tablet) 10 mg PO QHS PRN PRN PRN Reason: INSOMNIA Last Admin: 03/22/20 21:09 Dose: 10 mg Documented by: Metoprolol Succinate (Metoprolol(Xl)Succ 25 Mg Tablet) 25 mg PO DAILY [facility] Last Admin: 03/24/20 11:14 Dose: 25 mg Documented by: Nitroglycerin (Nitroglycerin (Inpatient Use) 0.4 Mg Tab.Subl) 0.4 mg SUBLINGUAL Q5M PRN PRN Reason: CARDIAC/CHEST PAIN Ondansetron HCl (Ondansetron 4 Mg/2 Ml Vial) 4 mg IV Q8H PRN PRN PRN Reason: NAUSEA/VOMITING Oxycodone HCl (Oxycodone 5 Mg Tablet) 5 mg PO Q4H PRN PRN PRN Reason: Pain Score 4-5 Last Admin: 03/24/20 08:16 Dose: 5 mg Documented by: Pantoprazole Sodium (Pantoprazole Sodium 40 Mg Tablet) 40 mg PO DAILY [facility] Last Admin: 03/24/20 11:14 Dose: 40 mg Documented by: Prochlorperazine Edisylate (Prochlorperazine 10 Mg/2 Ml Vial) 5 mg IV Q4H PRN PRN PRN Reason: Breakthrough Nausea/Vomiting Psyllium Hydrophilic Mucilloid (Psyllium 1 Packet) 1 packet PO DAILY PRN PRN PRN Reason: Constipation Senna/Docusate Sodium (Senna/Docusate Sodium 1 Tablet) 2 tablet PO BID PRN PRN PRN Reason: Constipation Sodium Chloride (0.9% Saline Lock 10 Ml Syringe) 10 - 40 ml IV UD PRN PRN Reason: SALINE FLUSH Last Admin: 03/23/20 11:33 Dose: 10 ml Documented by: Throat Lozenges (Benzocaine/Menthol 1 Lozenge) 1 lozenge MUCOUS MEM Q2H PRN PRN PRN Reason: SORE THROAT Home Medications: Medications to take at Discharge Clopidogrel Bisulfate [Clopidogrel] 75 mg PO DAILY 05/24/18 Aspirin [Aspirin, Baby] 81 mg PO DAILY@0800 07/12/19 Albuterol Sulfate [Albuterol Sulfate HFA] 2 puff IH 4X/DAY 09/28/19 Loratadine 10 mg PO DAILY PRN PRN 09/28/19 Mometasone Furoate [Elocon] 1 applicatio TP DAILY 09/28/19 Acetaminophen [Tylenol Tablet] 650 mg PO Q6H PRN PRN tab 10/02/19 Melatonin 10 mg PO QHS PRN tab 10/02/19 spironolactone 25 mg tablet 12.5 mg PO DAILY tab 12/18/19 Insulin Lispro [Humalog KwikPen] See Protocol SUBCUT ACHS 01/21/20 Oxycodone HCl 5 mg PO Q6H PRN PRN 01/21/20 metoprolol succinate 25 mg tablet,extended release 24 hr 25 mg PO DAILY tab 03/13/20 pantoprazole 40 mg tablet,delayed release 40 mg PO DAILY 03/13/20 Atorvastatin Calcium 80 mg PO QHS 03/18/20 Buspirone HCl 20 mg PO TID 03/18/20 Cholecalciferol (Vitamin D3) [Vitamin D3] 2,000 unit PO DAILY 03/18/20 Ferrous Sulfate 325 mg PO DAILY 03/18/20 Nut.tx.gluc.intoler,Lac-Fr,Soy [Glucerna] 120 ml PO BID 03/18/20 Furosemide 40 mg PO BID #30 tab 03/21/20 Insulin Glargine [Lantus SoloStar Pen] 10 units SC 1100,2200 pen 10/24/20 Cephalexin [Keflex] 250 mg PO Q6 cap 03/24/20 Following Prescriptions Were Given to Patient: Furosemide 40 mg PO BID #30 tab Primary Care Physician: Evens Jimenez III, MD [Primary Care Provider] - Please follow up with your Primary Care Physician in: 1 Week Please Follow Up With: Barb Demarco, PA When: 2 Weeks Disposition: Group Home facility Minutes spent on discharge:: 35 Patient Condition:: Stable Medical Necessity - Tobacco Use Smoking Status: Former smoker Tobacco Use: Non-smoker Meaningful Use Info Meaningful Use Diagnoses (Choose all that apply): CHF - CHF ALEJANDRA/ARB ordered at discharge?: No Reason ALEJANDRA/ARB not ordered?: Worsening renal function Documented LVEF (%): 25 <Poli Palomo - Last Filed: 03/24/20 17:28> Discharge Date and Diagnosis - Primary Discharge Diagnosis Acute Problems: Active Problems (Last Reviewed 01/21/20 @ 10:[address] Jacob Byrd MD) Acute on chronic systolic CHF (congestive heart failure) (Acute) Acute exacerbation of CHF (congestive heart failure) (Acute) Acute kidney injury superimposed on CKD (Acute) Congestive heart failure (Acute) Hyperkalemia (Acute) - Secondary Discharge Diagnosis Chronic Problems: Chronic Problems (Last Reviewed 01/21/20 @ 10:[address] Jacob Byrd MD) Acute kidney injury superimposed on chronic kidney disease (Chronic) Atherosclerosis of coronary artery of [place] heart without angina pectoris (Chronic) History of coronary artery stent placement (Chronic 05/18/18) PCI-JAZIEL-LAD w/ 2.0 x 30 mm and 2.5 x 34 mm Resolute Dinosaur and PCI-JAZIEL-Mid LCx w/ Resolute Issa 2.0 x 30 mm and 2.0 x 22 mm Stent 05/18/2018 Chronic combined systolic and diastolic CHF (congestive heart failure) (Chronic) Bilateral carotid artery stenosis (Chronic) RCEA and L carotid 70-80% stenosis Non-rheumatic tricuspid valve insufficiency (Chronic) Nonrheumatic mitral (valve) insufficiency (Chronic) Secondary pulmonary arterial hypertension (Chronic) Essential (primary) hypertension (Chronic) Hyperlipidemia (Chronic) CVA (cerebral vascular accident) (Chronic) PAD (peripheral artery disease) (Chronic) Debility (Chronic) Hospital Course and Treatment Summary of Care Provided: The patient is a 64 year old F [] - Physical Exam Vitals/I&O's: Vital Signs Temp Pulse Resp BP Pulse Ox 99.0 F 94 16 131/64 H 96 03/24/20 16:35 03/24/20 16:35 03/24/20 16:35 03/24/20 16:35 03/24/20 16:35 Oxygen Flow Rate (L/min) 2 Oxygen Delivery Method Nasal Cannula Weight: 181 lb 14.102 oz Body Mass Index (BMI) 37.3 Intake and Output for Last 24 Hours 03/22/20 03/23/20 03/24/20 23:59 23:59 23:59 Intake Total 990 / 1110 1080 / 1080 600 / 600 Output Total 1700 / 2420 1620 / 1620 1325 / 1325 Balance -710 / -1310 -540 / -540 -725 / -725 Microbiology Past 72 Hours 03/19/20 18:30 Urine, Catheterized Urine Culture - Final Proteus mirabilis Laboratory Results 03/23/20 22:50: POC Glucose 102 03/24/20 05:10: WBC 10.5, RBC 3.20 L, Hgb 8.1 L, Hct 27.0 L, MCV 84.4, MCH 25.3 L, MCHC 30.0 L, RDW Std Deviation 72.7 H, RDW Coeff of Jade 23.5 H, Plt Count 315, MPV 9.1, Differential Comment SCANNED 03/24/20 05:10: Sodium 135 L, Potassium 4.1, Chloride 101, Carbon Dioxide 26.0, Anion Gap 8, BUN 48 H, Creatinine 2.19 H, Estim Creat Clear Calc 33.31, Est GFR (MDRD) Af Amer 29 L, Est GFR (MDRD) Non-Af 24 L, BUN/Creatinine Ratio 21.9 H, Glucose 113 H, Calcium 8.8 03/24/20 06:53: POC Glucose 115 H 03/24/20 12:53: POC Glucose 119 H 03/24/20 16:34: POC Glucose 204 H Current Medications Acetaminophen (Acetaminophen 325 Mg Tablet) 650 mg PO Q6H PRN PRN PRN Reason: Pain Score 1-10/Temp > 100.7 F Last Admin: 03/24/20 03:35 Dose: 650 mg Documented by: Al Hydroxide/Mg Hydroxide (Mag Hydrox/Al Hydrox/Simeth 30 Ml Udc) 30 ml PO Q6H PRN PRN PRN Reason: Gastric Burning Albuterol Sulfate (Albuterol 2.5 Mg/3 Ml Vial.Neb.) 2.5 mg INHALATION Q2H PRN PRN PRN Reason: Dyspnea, wheezing Albuterol/Ipratropium (Ipratropium/Albuterol Sulfate 3 Ml Ampul.Neb) 3 ml INHALATION Q6HWA.RT [facility] Last Admin: 03/24/20 06:44 Dose: 3 ml Documented by: Aspirin (Aspirin 81 Mg Tab.Chew) 81 mg PO DAILY@0800 [facility] Last Admin: 03/24/20 08:12 Dose: 81 mg Documented by: Atorvastatin Calcium (Atorvastatin Calcium 80 Mg Tablet) 80 mg PO QHS [facility] Last Admin: 03/23/20 22:54 Dose: 80 mg Documented by: Buspirone HCl (Buspirone 5 Mg Tablet) 20 mg PO TID [facility] Last Admin: 03/24/20 13:09 Dose: 20 mg Documented by: Calamine/Phenol (Menthol/Lanolin/Calamine/Znox 113 Gm Tube) 1 applic TOPICAL BID [facility]; Protocol Last Admin: 03/24/20 11:12 Dose: 1 applicatio Documented by: Cephalexin (Cephalexin 250 Mg Capsule) 250 mg PO Q6 [facility] Last Admin: 03/24/20 13:03 Dose: 250 mg Documented by: Cholecalciferol (Cholecalciferol (Vit D3) 1,000 Unit (25mcg)) 2,000 unit PO DAILY [facility] Last Admin: 03/24/20 11:13 Dose: 2,000 unit Documented by: Clopidogrel Bisulfate (Clopidogrel Bisulfate 75 Mg Tablet) 75 mg PO DAILY [facility] Last Admin: 03/24/20 11:13 Dose: 75 mg Documented by: Dextrose (Dextrose 50%-Water 25 Gm/50 Ml Disp.Syrin) 0 gm IV X1 PRN; Protocol PRN Reason: Hypoglycemia Ferrous Sulfate (Ferrous Sulfate 325 Mg Tablet) 325 mg PO DAILY@1200 [facility] Last Admin: 03/24/20 13:03 Dose: 325 mg Documented by: Furosemide (Furosemide 40 Mg Tablet) 40 mg PO BID@1000,1800 [facility] Last Admin: 03/24/20 11:14 Dose: 40 mg Documented by: Glucagon (Glucagon 1 Mg/Ml Syringe) 1 mg IM .X1 PRN PRN Reason: Hypoglycemia Guaifenesin (Guaifenesin 10 Ml Udc (200mg/10ml)) 20 ml PO Q4H PRN PRN PRN Reason: COUGH Heparin Sodium (Porcine) (Heparin Injection (Vial) 5,000 Unit/Ml Vial) 5,000 unit SC Q12 [facility] Last Admin: 03/24/20 11:21 Dose: 5,000 unit Documented by: Insulin Glargine (Insulin Glargine 100 Units/Ml Pen) 10 units SC 1100,2200 [facility] Last Admin: 03/24/20 13:02 Dose: 10 units Documented by: Insulin Human Lispro (Insulin Lispro 100 Unit/Ml Insuln.Pen) 0 unit SC ACHS [facility]; Protocol Last Admin: 03/24/20 13:00 Dose: Not Given Documented by: Insulin Human Lispro (Insulin Lispro 100 Unit/Ml Insuln.Pen) 5 unit SC TIDAC [facility] Last Admin: 03/24/20 13:02 Dose: 5 u Documented by: Loperamide HCl (Loperamide 2 Mg Capsule) 2 mg PO Q2H PRN PRN PRN Reason: Diarrhea Magnesium Hydroxide (Magnesium Hydroxide 30 Ml Udc) 30 ml PO DAILY PRN PRN PRN Reason: Constipation Melatonin (Melatonin 10 Mg Tablet) 10 mg PO QHS PRN PRN PRN Reason: INSOMNIA Last Admin: 03/22/20 21:09 Dose: 10 mg Documented by: Metoprolol Succinate (Metoprolol(Xl)Succ 25 Mg Tablet) 25 mg PO DAILY [facility] Last Admin: 03/24/20 11:14 Dose: 25 mg Documented by: Nitroglycerin (Nitroglycerin (Inpatient Use) 0.4 Mg Tab.Subl) 0.4 mg SUBLINGUAL Q5M PRN PRN Reason: CARDIAC/CHEST PAIN Ondansetron HCl (Ondansetron 4 Mg/2 Ml Vial) 4 mg IV Q8H PRN PRN PRN Reason: NAUSEA/VOMITING Oxycodone HCl (Oxycodone 5 Mg Tablet) 5 mg PO Q4H PRN PRN PRN Reason: Pain Score 4-5 Last Admin: 03/24/20 16:52 Dose: 5 mg Documented by: Pantoprazole Sodium (Pantoprazole Sodium 40 Mg Tablet) 40 mg PO DAILY [facility] Last Admin: 03/24/20 11:14 Dose: 40 mg Documented by: Prochlorperazine Edisylate (Prochlorperazine 10 Mg/2 Ml Vial) 5 mg IV Q4H PRN PRN PRN Reason: Breakthrough Nausea/Vomiting Psyllium Hydrophilic Mucilloid (Psyllium 1 Packet) 1 packet PO DAILY PRN PRN PRN Reason: Constipation Senna/Docusate Sodium (Senna/Docusate Sodium 1 Tablet) 2 tablet PO BID PRN PRN PRN Reason: Constipation Sodium Chloride (0.9% Saline Lock 10 Ml Syringe) 10 - 40 ml IV UD PRN PRN Reason: SALINE FLUSH Last Admin: 03/23/20 11:33 Dose: 10 ml Documented by: Throat Lozenges (Benzocaine/Menthol 1 Lozenge) 1 lozenge MUCOUS MEM Q2H PRN PRN PRN Reason: SORE THROAT Addendum: Dr. Palomo I personally examined the patient and reviewed the chart. I agree with the above. 64-year-old female presents from the [facility] with weight gain and abnormal labs. She does have a history of combined systolic/diastolic CHF and was started on Lasix while here. She has had good diuresis as well as 11 pound weight gain. She also had a UA with 500 leukocyte esterase as well as 1+ bacteria. The urine culture is coming back with greater than 100,000 CFU's of the gram-negative arturo therefore she was also started on Ancef which she has tolerated in the past. Feeling much better today, and she is back to her chronic 2 L of oxygen via nasal cannula. However, she is required to have a precertification to return back to her [facility] facility, therefore we will have her undergo PT/OT for evaluation and restart the process to go back to where she needs to be. 03/22/2020: Feeling well today. She was started on Ancef yesterday for her UTI which has come back as a Proteus mirabilis that is resistant only to Macrobid. We will continue with antibiotics for 5 days total and hopefully by that point she will not need any by the time she receives her precertification from the insurance company to go back to a [facility] facility. 03/23/2020: Feels about the same today she did yesterday. She has completed 2 days of Ancef for her UTI. Still awaiting precertification for return to her [facility]. 03/24/2020: Feels about the same. Her breathing is back to her baseline. She was initially denied in her precertification however this was overturned on the heel so she will be returning back to her previous [facility] today. Given her significantly reduced EF would recommend strict I's and O's and daily weights as well as Lasix as outlined in the transfer summary. Also continue with Keflex to complete her treatment for her UTI. Discussed plan for discharge and she expressed understanding of the risk and benefits of going to the [facility] today. She states that she would like to go today. Inpatient E&M: [id number] Disch Hosp
--- NOTE | 2020-03-24 15:32 | CASEMGMT ---
[facility] faxed PT/OT to [place]. Still awaiting their answer. Shanique CONNOR MULTIPLE SCLEROSIS NURSE
[2020-03-24 16:50] LABS: Bedside Glucose 204 mg/dL (70-110)
--- NOTE | 2020-03-24 17:00 | CASEMGMT ---
Social Work PCU Collaboration with [employer] INTERN, Eren Ulloa, regarding [facility]'s response about not taking patient back at time of discharge. Per Shanique, [facility] medical staff were able to do a peer to peer, and insurance approved patient for custodial admission, though [facility] still not committing to taking patient back. This procedure writer spoke with Karin in admissions at [facility] regarding this patient's situation and outcome from the peer to peer done this date. Karin maintaining that the facility will not be taking the patient back and the facility has no evidence in writing of insurance approval. This procedure writer explained that the hospital understands the nursing facility needs to confirm approval on the facility's end, so [facility] can work with [facility] but that ultimately [facility] does have an obligation to this patient. Discussed with Karin medicaid, bed holds, and proper discharge notices for residents. Karin reports has given the administrative team the new information and is waiting for a response. Karin asked for updated therapy notes. This procedure writer agreed to get requested information to the facility, and also referenced that if needed this procedure writer can call [facility]'s social welfare administrator about refusal to accept this patient back. Eren Ulloa faxed updated therapy notes. Received call back from Karin who reports was able to speak with someone at the [facility], and approval received. Karin also confirmed that patient is a bed hold under Medicaid. [facility] is able to take patient back this date. This procedure writer thanked Karin and confirmed fax and report number that PCU staff will use for discharge. Report number [phone] and fax is [phone]. This procedure writer updated Guerrero, secretary to the vice president on PCU that approval for [facility] admission received and discharge plan is set. Green sheet on chart for nursing staff to follow for final discharge/transportation arrangements. Plan: Return back to [facility]. -CHARLENE Marquez, VERONICA
--- NOTE | 2020-03-24 17:25 | NURSING ---
report called to chirag bowman with rn to rn report
[2020-03-24] MEDS: Atorvastatin Calcium 80 MG Tablet PO (20:59)
[2020-03-24 21:10] LABS: Bedside Glucose 173 mg/dL (70-110)
== END 2020-03-24 23:15 | disposition skilled nursing facility (03) | DRG 194 ==
LOC: ED 18:45 → PCU 18:53
PROVIDERS: Internal Medicine; Nurse Practitioner Family; Admitting Provider Family Medicine; Emergency Provider Emergency Medicine; PCP Family Medicine; Visit Provider Family Medicine
DX: I13.0 Hypertensive heart and chronic kidney disease with heart failure and stage 1 through stage 4 chronic kidney disease, or unspecified chronic kidney disease (principal); E11.22 Type 2 diabetes mellitus with diabetic chronic kidney disease; N18.30 Chronic kidney disease, stage 3 unspecified; E11.51 Type 2 diabetes mellitus with diabetic peripheral angiopathy without gangrene; N17.9 Acute kidney failure, unspecified; I50.43 Acute on chronic combined systolic (congestive) and diastolic (congestive) heart failure; J44.9 Chronic obstructive pulmonary disease, unspecified; J96.11 Chronic respiratory failure with hypoxia; R10.11 Right upper quadrant pain; R74.8 Abnormal levels of other serum enzymes; E87.1 Hypo-osmolality and hyponatremia; F32.9 Major depressive disorder, single episode, unspecified; F41.9 Anxiety disorder, unspecified; I25.10 Atherosclerotic heart disease of native coronary artery without angina pectoris; I65.23 Occlusion and stenosis of bilateral carotid arteries; I27.21 Secondary pulmonary arterial hypertension; I08.1 Rheumatic disorders of both mitral and tricuspid valves; E78.5 Hyperlipidemia, unspecified; E87.5 Hyperkalemia; E66.01 Morbid (severe) obesity due to excess calories; N39.0 Urinary tract infection, site not specified; B96.4 Proteus (mirabilis) (morganii) as the cause of diseases classified elsewhere; R53.81 Other malaise; Z68.41 Body mass index [BMI] 40.0-44.9, adult; Z95.5 Presence of coronary angioplasty implant and graft; Z79.4 Long term (current) use of insulin; Z79.02 Long term (current) use of antithrombotics/antiplatelets; Z79.82 Long term (current) use of aspirin; Z99.81 Dependence on supplemental oxygen; Z79.899 Other long term (current) drug therapy; Z87.891 Personal history of nicotine dependence; Z86.73 Personal history of transient ischemic attack (TIA), and cerebral infarction without residual deficits
CPT/HCPCS: 36415; 71045; 76705; 80048; 80053; 80061; 81001; 82962; 83036; 83735; 83880; 84443; 84484; 85025; 85027; 87077; 87086; 87088; 87186; 87635; 90471; 93005; 93306; 94640; 97162; 97166; 99285; J7040; Q9957; A4216; J1940; U0002

== ENCOUNTER 2020-04-17 01:11 | Inpatient (IN) | payer MEDICAID, SELFPAY ==
[2020-03-18 22:34] VITALS: BMI 37.3
[2020-04-17] VITALS (39 sets, daily range): BP systolic 123–165; BP diastolic 54–106; PULSE 76–107; RESP 12–27; TEMP 36.3–37.1; O2SAT 93–100; BMI 34.2; BMI 34.0
--- NOTE | 2020-04-17 01:22 | ED.DCSUM_ITS ---
History of Present Illness Chief Complaint: Shortness of Breath Narrative: 4-year-old female with history of CAD with cardiac stents, CHF, COPD, diabetes, hypertension, hyperlipidemia presenting with shortness of breath. She states she just left her assisted facility today and started to have chest pain and shortness of breath. Its been present since about 7 PM. She denies fever, cough. Patient is a poor informant due to her difficulty breathing. She states she is awaiting some cardiac surgery but cannot remember the name of it. - Past Medical History (1) Acute exacerbation of CHF (congestive heart failure) Status: Chronic (2) Acute kidney injury superimposed on CKD Status: Chronic (3) Acute on chronic systolic CHF (congestive heart failure) Status: Chronic (4) Dyspnea Status: Chronic Past Medical History - Allergies and Home Meds Allergies/Adverse Reactions: Allergies Penicillins Allergy (Severe, Verified 04/17/20 01:12) Swelling tolerated keflex in past with no issue fluoxetine [From Prozac] Adverse Reaction (Verified 04/17/20 01:12) NEEDS FOLLOW-UP pravastatin [From Pravachol] Adverse Reaction (Verified 04/17/20 01:12) NEEDS FOLLOW-UP Primary Care Physician: Evens Jimenez III, MD [Primary Care Provider] - Prior records reviewed: Yes Past Medical History: - - Diabetes, hypertension, hyperlipidemia and reviewed in problem list Surgical History: - - R CEA, L 5th toe amputation, PCI, T+A. Lives: Spouse/ Significant Other Smoking Status: Former smoker Alcohol: None Drugs: None - Family History Maternal Family History: Family History (Last Reviewed 12/18/19 @ 15:[address] Charles Good MD) Mother No problems noted. Family History: Reports: High Cholesterol, Heart Disease, Hypertension, Stroke, - - Patient's mother in her 40s from a cerebrovascular accident. Paternal Family History: Family History (Last Reviewed 12/18/19 @ 15:[address] Charles Good MD) Mother No problems noted. Family History: Reports: High Cholesterol, Heart Disease, Hypertension, - - Patient's father in his 40s from myocardial infarction. Review of Systems General: Denies: Chills, Fever, Malaise Eyes: Denies: Visual changes - bilaterally, Diplopia ENT: Denies: Rhinorrhea, Sore throat Cardiovascular: Reports: Chest pain. Denies: Palpitations, Heart racing Respiratory: Reports: Dyspnea, Dyspnea on exertion. Denies: Cough Gastrointestinal: Denies: Abdominal pain, Nausea, Vomiting Genitourinary: Reports: Dysuria. Denies: Hematuria, Frequency Musculoskeletal: Reports: Myalgias. Denies: Arthralgias Skin: Denies: Rash, Abscess Neurological: Denies: Headache, Parasthesia, Numbness Physical Exam Inital Vital Signs reviewed: Yes General: Obese, Acute Distress, - - Any accessory muscles to breathe, speaks in 2 word sentences Head: Normocephalic, Atraumatic Eyes: Perrl, EOMI ENT: Dry mucous membranes, Nasal congestion - Dried blood in the naris no active bleeding. Cardiovascular: Regular rhythm, Tachycardia Respiratory: Diminished - Lateral bases, Retractions. Negative for: Chest tenderness Abdomen: Soft, Nontender Back: Nontender, Normal Inspection Extremities: Nontender, No edema Skin: Diaphoresis. Negative for: No rash, Cyanosis Neurological: Alert, Cranial nerves II-XII grossly intact Psychological: Agitated, - - Anxious Diagnostic/Tx/Re-eval Clinical Impression(s) from Imaging Studies Chest X-Ray 04/17/20 01:37 IMPRESSION: Vascular congestion with mild to moderate left-sided pleural effusion. Electronically Signed: Debbie Trujillo MD at 3:10 EST , Service support , Laboratory Data 04/17/20 04/17/20 04/17/20 01:30 01:30 01:30 WBC 12.3 H RBC 4.00 L Hgb 10.3 L Hct 34.1 L MCV 85.3 MCH 25.8 L MCHC 30.2 L RDW Std Deviation 59.5 H RDW Coeff of Jade 19.3 H Plt Count 450 MPV 8.5 Immature Gran % (Auto) 0.300 Neut % (Auto) 83.3 H Lymph % (Auto) 8.0 L [place] % (Auto) 6.3 Eos % (Auto) 1.7 Baso % (Auto) 0.4 Absolute Neuts (auto) 10.3 H Absolute Lymphs (auto) 0.98 Nucleated RBC % 0 PT INR APTT D-Dimer Quant (PE/DVT) 3.27 H* Specimen Type Sample Site pH Bicarbonate Actual Total CO2 Base Excess O2 Saturation O2 % ABG pCO2 ABG pO2 Mark Test Respiration Rate O2 Delivery Device POC PEEP Sodium 138 Potassium 3.5 Chloride 103 Carbon Dioxide 28.0 Anion Gap 7 BUN 22 H Creatinine 1.61 H Estim Creat Clear Calc 25.36 Est GFR (MDRD) Af Amer 41 L Est GFR (MDRD) Non-Af 34 L BUN/Creatinine Ratio 13.7 Glucose 122 H Lactic Acid Calcium 9.0 Troponin I 0.043 B-Natriuretic Peptide Procalcitonin Urine Color Urine Clarity Urine pH Ur Specific [place] Urine Protein Urine Glucose (UA) Urine Ketones Urine Occult Blood Urine Nitrite Urine Bilirubin Urine Urobilinogen Ur Leukocyte Esterase Urine RBC Urine WBC Ur Squamous Epith Cells Urine Bacteria Urine Mucus COVID-19 (MICHELLE) 04/17/20 04/17/20 04/17/20 01:30 01:30 01:30 WBC RBC Hgb Hct MCV MCH MCHC RDW Std Deviation RDW Coeff of Jade Plt Count MPV Immature Gran % (Auto) Neut % (Auto) Lymph % (Auto) [place] % (Auto) Eos % (Auto) Baso % (Auto) Absolute Neuts (auto) Absolute Lymphs (auto) Nucleated RBC % PT 14.8 INR 1.2 APTT 31.9 D-Dimer Quant (PE/DVT) Specimen Type Sample Site pH Bicarbonate Actual Total CO2 Base Excess O2 Saturation O2 % ABG pCO2 ABG pO2 Mark Test Respiration Rate O2 Delivery Device POC PEEP Sodium Potassium Chloride Carbon Dioxide Anion Gap BUN Creatinine Estim Creat Clear Calc Est GFR (MDRD) Af Amer Est GFR (MDRD) Non-Af BUN/Creatinine Ratio Glucose Lactic Acid Calcium Troponin I B-Natriuretic Peptide > 5000.0 H Procalcitonin 0.04 Urine Color Urine Clarity Urine pH Ur Specific [place] Urine Protein Urine Glucose (UA) Urine Ketones Urine Occult Blood Urine Nitrite Urine Bilirubin Urine Urobilinogen Ur Leukocyte Esterase Urine RBC Urine WBC Ur Squamous Epith Cells Urine Bacteria Urine Mucus COVID-19 (MICHELLE) 04/17/20 04/17/20 04/17/20 01:50 02:15 02:23 WBC RBC Hgb Hct MCV MCH MCHC RDW Std Deviation RDW Coeff of Jade Plt Count MPV Immature Gran % (Auto) Neut % (Auto) Lymph % (Auto) [place] % (Auto) Eos % (Auto) Baso % (Auto) Absolute Neuts (auto) Absolute Lymphs (auto) Nucleated RBC % PT INR APTT D-Dimer Quant (PE/DVT) Specimen Type ART Sample Site R Radial pH 7.44 Bicarbonate Actual 27.7 H Total CO2 29 Base Excess 4 H O2 Saturation 95 O2 % 30 ABG pCO2 40.6 ABG pO2 75 Mark Test Positive Respiration Rate 12 O2 Delivery Device BiPAP POC PEEP 8 Sodium Potassium Chloride Carbon Dioxide Anion Gap BUN Creatinine Estim Creat Clear Calc Est GFR (MDRD) Af Amer Est GFR (MDRD) Non-Af BUN/Creatinine Ratio Glucose Lactic Acid 0.8 Calcium Troponin I B-Natriuretic Peptide Procalcitonin Urine Color Urine Clarity Urine pH Ur Specific [place] Urine Protein Urine Glucose (UA) Urine Ketones Urine Occult Blood Urine Nitrite Urine Bilirubin Urine Urobilinogen Ur Leukocyte Esterase Urine RBC Urine WBC Ur Squamous Epith Cells Urine Bacteria Urine Mucus COVID-19 (MICHELLE) Negative 04/17/20 02:32 WBC RBC Hgb Hct MCV MCH MCHC RDW Std Deviation RDW Coeff of Jade Plt Count MPV Immature Gran % (Auto) Neut % (Auto) Lymph % (Auto) [place] % (Auto) Eos % (Auto) Baso % (Auto) Absolute Neuts (auto) Absolute Lymphs (auto) Nucleated RBC % PT INR APTT D-Dimer Quant (PE/DVT) Specimen Type Sample Site pH Bicarbonate Actual Total CO2 Base Excess O2 Saturation O2 % ABG pCO2 ABG pO2 Mark Test Respiration Rate O2 Delivery Device POC PEEP Sodium Potassium Chloride Carbon Dioxide Anion Gap BUN Creatinine Estim Creat Clear Calc Est GFR (MDRD) Af Amer Est GFR (MDRD) Non-Af BUN/Creatinine Ratio Glucose Lactic Acid Calcium Troponin I B-Natriuretic Peptide Procalcitonin Urine Color Yellow Urine Clarity Clear Urine pH 7.0 Ur Specific [place] 1.015 Urine Protein 100 H Urine Glucose (UA) Normal Urine Ketones Negative Urine Occult Blood 25 H Urine Nitrite Positive H Urine Bilirubin Negative Urine Urobilinogen Normal Ur Leukocyte Esterase 500 H Urine RBC 0-5 SEEN Urine WBC 10-25 SEEN Ur Squamous Epith Cells 0 SEEN Urine Bacteria 3+ Urine Mucus 0 SEEN COVID-19 (MICHELLE) - Rhythm Strip Rhythm Strip: Sinus Rhythm Rate: 104 - EKG Initial EKG Interpretation: No Acute Injury Pattern, Sinus Tachycardia - Medical Decision Making 64-year-old female presenting with chest pain and shortness of breath. She has a history of combined systolic and diastolic CHF. She has cardiac stents and was previously supposed to have mitral valve repair as well as a CABG but due to her poor health she was unable to get this done. On arrival she appears to be in respiratory distress. She is not hypoxic however she is having trouble breathing because she has dried blood in her nares likely due to the oxygen in her nose. Since she is using accessory muscles and having difficulty breathing I did put her on BiPAP. She has diminished breath sounds at the bases. She was given a dose of nitroglycerin for her chest pain which she said did not help however given her chest x-ray which shows very vascular congestion and mild to moderate left pleural effusion I did put Nitropaste on her chest in addition to the BiPAP. She appears to be doing well on this. Blood gas is fairly normal. CBC shows a slight leukocytosis of 12,000 she has improved creatinine and GFR however GFR is only 34. She does have chronic kidney disease. EKG was sinus rhythm and although there is respiratory artifact it does not appear dramatically changed from her previous EKG other than slightly faster heart rate. Troponin is negative. D-dimer is elevated at greater than 3 however I am unable to get CTA of the chest secondary to her GFR. Lactic acid is normal. Procalcitonin is negative. Covid swab is negative. Patient was found to have a urinary tract infection and was started on Rocephin and she was pancultured given the fact that she met SIRS criteria. At this point she meets sepsis criteria secondary to UTI and she has congestive heart failure exacerbation. 30 cc/kg fluids were held given that she is in heart failure. She was given 80 of Lasix IV. After discussion with the hospitalist about the elevated D-dimer we determined that we would put the patient on a heparin drip until we can get ultrasounds of the bilateral lower extremities versus VQ scan to rule out clot. On reevaluation the patient appears to be very comfortable. She is not in any distress. Her vital signs have stabilized. The hospitalist does however recommend placing her in the ICU. Impression: 1. CHF exacerbation 2. Sepsis secondary to UTI 3. History of CKD 4. Elevated D-dimer 5. Respiratory failure ED Disposition - Plan for ED Patient: Referrals: Evens Jimenez III, MD [Primary Care Provider] -
--- NOTE | 2020-04-17 01:37 | RAD_ITS ---
STUDY: X-RAY CHEST REASON FOR EXAM: Female, 64 years old. PT D/C [facility] WENT HOME. HAVING INCREASED SOB, CHEST TIGHTNESS TONIGHT. TECHNIQUE: Single AP portable view of the chest. COMPARISON: 03/18/2020. FINDINGS: The lungs are normally expanded with fullness of the central markings consistent with vascular congestion. Mild to moderate left-sided pleural effusion. Normal size heart. Normal mediastinum and tom. Normal visualized pulmonary arteries. There is atherosclerotic calcification of the aortic arch with tortuosity. There is demineralization of the osseous structures. There is degenerative osteoarthritis of the bilateral shoulders. There is no demonstrated abnormality of the visualized soft tissue structures of the upper abdomen. RAD/Chest 1 View (Portable) IMPRESSION: Vascular congestion with mild to moderate left-sided pleural effusion. Electronically Signed: Debbie Trujillo MD at 3:10 EST , Service support ,
--- NOTE | 2020-04-17 01:37 | EKG12_ITS ---
Test Reason : DYSRHYTHMIA Blood Pressure : / mmHG Vent. Rate : 104 BPM Atrial Rate : 104 BPM P-R Int : 148 ms QRS Dur : 092 ms QT Int : 378 ms P-R-T Axes : 056 -39 124 degrees QTc Int : 497 ms Sinus tachycardia Possible Left atrial enlargement Left axis deviation Inferior infarct , age undetermined Anterior infarct , age undetermined Abnormal ECG Confirmed by GENA GARCIA, JAMIE ([id number]), dictionary editor PRACHI MARIA ([id number]) on 04/17/2020 10:56:10 AM Referred By: LISA Confirmed By:JAMIE AVERY MD
[2020-04-17] MEDS: Aspirin 81 MG TAB.CHEW 324 MG PO (01:43)
[2020-04-17 01:44] LABS: Absolute Lymphocyte Count 0.98 X10^3/uL (0.83-4.51); Absolute Neutrophil Count 10.3 X10^3/uL (2.0-7.7); Basophil# 0.05 X10^3/uL; Basophil% 0.4 % (0-1); Eosinophil# 0.21 X10^3/uL; Eosinophils% 1.7 % (0-5); Hematocrit 34.1 % (37-47); Hemoglobin 10.3 g/dL (12.0-15.0); Lymphocyte # 0.98 X10^3/ul (4.0); Mean Corp Hgb Conc 30.2 g/dL (32-36); Mean Corpuscular Hgb 25.8 pg (27.0-32.0); Mean Corpuscular Volume 85.3 fL (81-99); Mean Platelet Vol. 8.5 fl (6.2-12.0); Monocyte# 0.78 X10^3/uL; Monocyte% 6.3 % (0-10); NRBC Flagged by Analyzer 0 % (0-5); Neutrophil # 10.26 X10^3/uL (2.7-7.7); Neutrophil % 83.3 % (47-70); Platelet Count 450 K/mm3 (150-450); RBC Distribution Width CV 19.3 % (11.6-14.6); RBC Distribution Width SD 59.5 fl (35.1-43.9); White Blood Count 12.3 K/mm3 (4.4-11.0)
[2020-04-17] MEDS: Nitroglycerin SL (ED/IMG/CATH) 0.4 MG TABLET SUBLINGUAL (01:44)
[2020-04-17 01:52] LABS: D-Dimer Quantitative (DVT/PE) 3.27 FEU/ug/m (0.27-0.49)
[2020-04-17 01:59] LABS: Anion Gap 7 (5-15); BUN 22 mg/dL (7-18); BUN/Creat Ratio 13.7 RATIO (10-20); Chloride 103 mmol/L (98-107); Creatinine, Serum 1.61 mg/dL (0.55-1.02); EST Glomerular Filtration Rate 34 mL/min (>60); Est Glom Filt Rate - Afr Amer 41 mL/min (>60); Estimated Creatinine Clearance 25.36 ml/min; Glucose 122 mg/dL (74-106); Potassium 3.5 mmol/L (3.5-5.1); Sodium Level 138 mmol/L (136-145)
[2020-04-17] MEDS: Nitroglycerin Oint 1 INCH PACKET TRANSDERM. (02:15)
[2020-04-17 02:28] LABS: Lactic Acid 0.8 mmol/L (0.4-1.9)
[2020-04-17 02:30] LABS: Allen Test Positive; Base Excess 4 mmol/L (-2 to +2); Bicarbonate 27.7 mmol/L (22-26); Blood Gas Specimen Type ART; FI02 30; O2 Delivery Device BiPAP; PEEP 8; PO2 75 mmHG (75-100); RR 12; SITE R Radial; SO2 95 % (95-99); Total Carbon Dioxide 29 mmol/L; pCO2 40.6 mmHg (35-45); pH 7.44 (7.35-7.45)
[2020-04-17 02:31] LABS: Procalcitonin 0.04 ng/mL (0.00-0.09)
[2020-04-17 02:39] LABS: Mucous, Urine 0 SEEN /hpf (<or=2+); Squamous Epithelial Cells - UA 0 SEEN /hpf (5-10)
[2020-04-17 02:43] LABS: Color, Urine Yellow (Yellow); Glucose, Dipstick Normal (Normal); Ketone-Dipstick Negative (Negative); Leukocyte Esterase-Dipstick 500 /ul (Negative); Nitrite-Dipstick Positive (Negative); Occult Blood-Urine 25 /ul (Negative); Protein-Dipstick 100 mg/dl (Negative); Specific Gravity, Urine 1.015 (1.002-1.030); Urine Bilirubin Dipstick Negative (Negative); Urine Clarity Clear (Clear); Urine Urobilinogen Normal (Normal)
[2020-04-17 02:50] LABS: BNP,B-Type NATRIURETIC PEPTIDE > 5000.0 pg/mL (0-100)
[2020-04-17 02:53] LABS: Bacteria 3+ /hpf (None Seen); Red Blood Cells-Urine 0-5 SEEN /hpf (0-5); White Blood Cells 10-25 SEEN /hpf (0-5)
[2020-04-17] MEDS: Ceftriaxone 1 GM/50 ML BAG IV (03:11)
--- NOTE | 2020-04-17 03:42 | HP.PCM_ITS ---
History of Present Illness Date of Admission: 04/17/20 Chief Complaint: Dyspnea Admission Diagnoses: 1. Acute Hypoxic Respiratory Failure secondary to Acute on Chronic Chronic combined Systolic/Diastolic CHF 2. Acute Sepsis secondary to Acute Urinary Tract Infection 3. CKD stage III 4. Chronic normocytic anemia 5. Diabetes mellitus type II 6. Anxiety and depression 7. Carotid disease 8. Hypertension 9. Hyperlipidemia 10. Obesity 11. Former Tobacco Abuse 12. History CVA 13. Chronic COPD 14. CODE status: Full The patient is a 64 y/o F w/ PMHx: Former Tobacco use, CAD s/p PCI LAD and mid LCx w/ 07/12/19 [facility] txf w/ balloon angioplasty to in-stent stenosis proximal LAD and ostium of the diagonal complicated by undifferentiated shock, Chronic combined Systolic/Diastolic CHF, HTN, HLD, Carotid disease s/p R CEA, L 70-80% stenosis, HTN, HLD, Asthma, Anxiety and Depression, Obesity, Chronic back pain, COPD, Hx CVA, Diabetes mellitus type II, recent admitted 03/18/20-03/24/20 with an acute combined systolic/diastolic CHF exacerbation with chronic hypoxic respiratory failure, YULISA on chronic kidney disease, right upper quadrant discomfort with elevated LFTs with acute cholecystitis ruled out, hypervolemic hyponatremia discharged on Lasix 40 mg twice daily who now represents to the [facility] ED on 04/17/20 with history of recent discharge from nursing facility earlier in the day on 04/16/2020 and upon return to home with activity increase shortness of breath in addition to chest tightness prompting ED evaluation. Work-up in the ED included T 90.7, heart rate 107, BP initially 162/86, respiratory rate 24, on a percent on 3 L nasal cannula, eventually placed on BiPAP per ED physician noted to be 95% on 30% FiO2, CBC with WBC 12.3, hemoglobin 10.3, platelet 450 with left shift, D-dimer 3.27, ABG not marked appearing obtained on BiPAP, BMP with BUN/creatinine 22/1.61, glucose 122, lactic acid 0.8, troponin 0.043, pro calcitonin 0.04, BNP >5,000, urinalysis with positive nitrite, positive leukocyte esterase with 10-25 urine WBCs and 3+ urine bacteria, Covid pending, urine culture x1 pending per ED, blood culture x2 pending per ED, chest x-ray with vascular congestion with mild to moderate left-sided pleural effusion, EKG with sinus tachycardia with nonspecific changes with no acute evidence of ischemia. In the ED patient administered Nitro-Bid 1 inch transdermal paste, aspirin 324 mg p.o. x1. Past Medical History Past Medical History (Chronic Problems): Chronic Problems (Last Reviewed 01/21/20 @ 10:[address] Jacob Byrd MD) Acute on chronic systolic CHF (congestive heart failure) (Chronic) Acute exacerbation of CHF (congestive heart failure) (Chronic) Dyspnea (Chronic) Acute kidney injury superimposed on CKD (Chronic) Acute kidney injury superimposed on chronic kidney disease (Chronic) Atherosclerosis of coronary artery of [place] heart without angina pectoris (Chronic) History of coronary artery stent placement (Chronic 05/18/18) PCI-JAZIEL-LAD w/ 2.0 x 30 mm and 2.5 x 34 mm Resolute [place] and PCI-JAZIEL-Mid LCx w/ Resolute [place] 2.0 x 30 mm and 2.0 x 22 mm Stent 05/18/2018 Chronic combined systolic and diastolic CHF (congestive heart failure) (Chronic) Bilateral carotid artery stenosis (Chronic) RCEA and L carotid 70-80% stenosis Non-rheumatic tricuspid valve insufficiency (Chronic) Nonrheumatic mitral (valve) insufficiency (Chronic) Secondary pulmonary arterial hypertension (Chronic) Essential (primary) hypertension (Chronic) Hyperlipidemia (Chronic) CVA (cerebral vascular accident) (Chronic) PAD (peripheral artery disease) (Chronic) Debility (Chronic) Medical History: Medical History (Last Reviewed 01/21/20 @ 10:[address] Jacob Byrd MD) Atherosclerosis of coronary artery of [place] heart without angina pectoris (Chronic) I25.10 Chronic combined systolic and diastolic CHF (congestive heart failure) (Chronic) I50.42 Bilateral carotid artery stenosis (Chronic) I65.23 RCEA and L carotid 70-80% stenosis Non-rheumatic tricuspid valve insufficiency (Chronic) I36.1 Nonrheumatic mitral (valve) insufficiency (Chronic) I34.0 Secondary pulmonary arterial hypertension (Chronic) I27.21 Essential (primary) hypertension (Chronic) I10 Hyperlipidemia (Chronic) E78.5 CVA (cerebral vascular accident) (Chronic) I63.9 PAD (peripheral artery disease) (Chronic) I73.9 Debility (Chronic) R53.81 Asthma J45.909 COPD (chronic obstructive pulmonary disease) J44.9 Chronic back pain M54.9, G89.29 Depression F32.9 Former tobacco use Z87.891 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 Type 2 diabetes mellitus E11.9 Acute on chronic combined systolic (congestive) and diastolic (congestive) heart failure (Resolved) I50.43 Hematoma of left foot S90.32XA Nicotine dependence F17.200 Allergies Penicillins Allergy (Severe, Verified 04/17/20 01:12) Swelling tolerated keflex in past with no issue fluoxetine [From Prozac] Adverse Reaction (Verified 04/17/20 01:12) NEEDS FOLLOW-UP pravastatin [From Pravachol] Adverse Reaction (Verified 04/17/20 01:12) NEEDS FOLLOW-UP Home Medications: Ambulatory Orders Medication Instructions Recorded Clopidogrel Bisulfate [Clopidogrel] 75 mg PO DAILY 05/24/18 Aspirin [Aspirin, Baby] 81 mg PO DAILY@0800 07/12/19 Albuterol Sulfate [Albuterol 2 puff IH 4X/DAY 09/28/19 Sulfate HFA] Loratadine 10 mg PO DAILY PRN PRN 09/28/19 Melatonin 10 mg PO QHS PRN tab 10/02/19 spironolactone 25 mg tablet 12.5 mg PO DAILY tab 12/18/19 Insulin Lispro [Humalog KwikPen] See Protocol SUBCUT ACHS 01/21/20 Oxycodone HCl 5 mg PO Q6H PRN PRN 01/21/20 metoprolol succinate 25 mg 25 mg PO DAILY tab 03/13/20 tablet,extended release 24 hr pantoprazole 40 mg tablet,delayed 40 mg PO DAILY 03/13/20 release Atorvastatin Calcium 80 mg PO QHS 03/18/20 Buspirone HCl 20 mg PO TID 03/18/20 Cholecalciferol (Vitamin D3) 2,000 unit PO DAILY 03/18/20 [Vitamin D3] Ferrous Sulfate 325 mg PO DAILY 03/18/20 Nut.tx.gluc.intoler,Lac-Fr,Soy 120 ml PO BID 03/18/20 [Glucerna] Insulin Glargine [Lantus SoloStar 10 units SC 1100,2200 pen 03/21/20 Pen] Acetaminophen [Tylenol Tablet] 325 - 650 mg PO Q6H PRN PRN 04/17/20 Bisacodyl [Dulcolax] 10 mg RECTAL DAILY PRN PRN 04/17/20 Furosemide 80 mg PO BID 04/17/20 Gabapentin [Neurontin] 100 mg PO QHS 04/17/20 Nitroglycerin [Nitrostat] 0.4 mg SL Q5M PRN 04/17/20 Triamcinolone 0.1% Cream [Kenalog] 1 applic TOPICAL TID PRN PRN 04/17/20 Surgical History: Surgical History (Last Reviewed 01/21/20 @ 10:[address] 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 Smoking Status: Former smoker Tobacco Use: Non-smoker Alcohol: None Drugs: None - *Family History Maternal Family History: Family History (Last Reviewed 12/18/19 @ 15:[address] Charles Good MD) Mother No problems noted. History Items: High Cholesterol, Heart Disease, Hypertension, Stroke, - - Patient's mother in her 40s from a cerebrovascular accident. Paternal Family History: Family History (Last Reviewed 12/18/19 @ 15:[address] Charles Good MD) Mother No problems noted. History Items: High Cholesterol, Heart Disease, Hypertension, - - Patient's father in his 40s from myocardial infarction. Review of Systems Constitutional: Reports: Anorexia, Malaise, Weakness, Fatigue. Denies: Chills, Fever, Weight Change HEENT: Denies: Head Aches, Sinus Congestion, Sinus Drainage Cardiovascular: Reports: Chest Tightness, Edema, Orthopnea. Denies: Chest Pain, Chest Pressure, Light Headedness, Palpitations, Syncope Respiratory: Reports: Shortness of Breath, Shortness of breath at rest, Shortness of breath upon exertion. Denies: Cough, Sputum production Gastrointestinal: Denies: Abdominal Pain, Nausea, Vomiting Genitourinary: Denies: Dysuria Musculoskeletal: Reports: Joint Pain. Denies: Joint Tenderness Skin: Denies: Rash, Wounds Neurological: Denies: Numbness, Tingling, Focal weakness Psychiatric: Reports: Anxiety, Depression. Denies: Homicidal Ideations, Suicidal Ideations Hematologic/ Lymphatic: Reports: Anemia. Denies: Easy Bruising, Easy Bleeding VTE Information - Inpt Only VTE Present on Admission: No VTE Mechan Device Prophylaxis: SCD's VTE Pharm Prophylaxis ordered?: Yes Subjective: Patient seated upright in the ED bed, BiPAP in place, still some dyspnea with mild accessory muscle usage but improved since initial ED presentation. Objective: Physical Examination: General: Wakens to stimuli, fatigued, intermittently alert, oriented to self, place, month, president and recent events, remains cooperative, seated upright in the ED bed, still some accessory muscle usage with increased respiratory rate, BiPAP currently in place, respiratory distress improved since initial ED presentation. Skin: normal color, turgor, no icterus, cyanosis. HEENT: AT/NC, EOMI, PERRLA, dry MM, BiPAP in place, no carotid bruits, difficult to discern JVD secondary to thickened neck. Lungs: Severely diminished, greater bases, increased respiratory rate with improving respiratory distress since initial presentation, BiPAP in place, no significant rales, ronchi or wheezing. Heart: Tachycardic with regular rhythm; no gallop, rub audible, + SM. Abdomen: soft, obese, NTTP, ND, normal BS, no HSM; however, habitus makes examination difficult. Extremities: no cyanosis or clubbing, bilateral lower extremity ankle to distal abraham pitting edema. Neurological: Wakens to stimuli, fatigued, intermittently alert, oriented x > 3; cognitive function still not baseline intact but improving since initial ED presentation; pupils equally reactive to light and accomodation; cranial nerves II-XII grossly normal, moving all 4 extremities, no focal deficits, strength severely global decrease secondary to acute presentation. Psychiatric: affect appears fatigued, still some respiratory distress but improving, no acute evidence of depressive or anxiety feelings. - Physical Exam Vitals/I&O's: Vital Signs Temp Pulse Resp BP Pulse Ox 97.5 F L 87 13 139/67 H 96 04/17/20 03:12 04/17/20 03:12 04/17/20 03:12 04/17/20 03:12 04/17/20 03:12 Oxygen Flow Rate (L/min) 3 Oxygen Delivery Method Bi-pap Weight: 175 lb 7.807 oz Body Mass Index (BMI) 34.2 Laboratory Results 04/17/20 01:30: WBC 12.3 H, RBC 4.00 L, Hgb 10.3 L, Hct 34.1 L, MCV 85.3, MCH 25.8 L, MCHC 30.2 L, RDW Std Deviation 59.5 H, RDW Coeff of Jade 19.3 H, Plt Count 450, MPV 8.5, Immature Gran % (Auto) 0.300, Neut % (Auto) 83.3 H, Lymph % (Auto) 8.0 L, [place] % (Auto) 6.3, Eos % (Auto) 1.7, Baso % (Auto) 0.4, Absolute Neuts (auto) 10.3 H, Absolute Lymphs (auto) 0.98, Nucleated RBC % 0 04/17/20 01:30: D-Dimer Quant (PE/DVT) 3.27 H* 04/17/20 01:30: Sodium 138, Potassium 3.5, Chloride 103, Carbon Dioxide 28.0, Anion Gap 7, BUN 22 H, Creatinine 1.61 H, Estim Creat Clear Calc 25.36, Est GFR (MDRD) Af Amer 41 L, Est GFR (MDRD) Non-Af 34 L, BUN/Creatinine Ratio 13.7, G lucose 122 H, Calcium 9.0, Troponin I 0.043 04/17/20 01:30: B-Natriuretic Peptide > 5000.0 H 04/17/20 01:30: Procalcitonin 0.04 04/17/20 01:50: Lactic Acid 0.8 04/17/20 02:15: COVID-19 (MICHELLE) Pending 04/17/20 02:23: Specimen Type ART, Sample Site R Radial, pH 7.44, Bicarbonate Actual 27.7 H, Total CO2 29, Base Excess 4 H, O2 Saturation 95, O2 % 30, ABG pCO2 40.6, ABG pO2 75, Mark Test Positive, Respiration Rate 12, O2 Delivery Device BiPAP, POC PEEP 8 04/17/20 02:32: Urine Color Yellow, Urine Clarity Clear, Urine pH 7.0, Ur Specific [place] 1.015, Urine Protein 100 H, Urine Glucose (UA) Normal, Urine Ketones Negative, Urine Occult Blood 25 H, Urine Nitrite Positive H, Urine Bilirubin Negative, Urine Urobilinogen Normal, Ur Leukocyte Esterase 500 H, Urine RBC 0-5 SEEN, Urine WBC 10-25 SEEN, Ur Squamous Epith Cells 0 SEEN, Urine Bacteria 3+, Urine Mucus 0 SEEN Current Medications Nitroglycerin (Nitroglycerin Sl (Ed/Img/Cath) 0.4 Mg Tablet) 0.4 mg SUBLINGUAL Q5M PRN PRN Reason: Chest pain Last Admin: 04/17/20 01:44 Dose: 0.4 mg Documented by: Assessment/Plan All Active Problems (Last Reviewed 01/21/20 @ 10:[address] Jacob Byrd MD) Hypoxia (Acute) Congestive heart failure (Acute) Hyperkalemia (Acute) Dyspnea on exertion (Acute) Orthopnea (Acute) Acute exacerbation of CHF (congestive heart failure) (Resolved) Acute on chronic combined systolic (congestive) and diastolic (congestive) heart failure (Resolved) Acute respiratory failure with hypoxia (Resolved) CHF exacerbation (Resolved) COPD exacerbation (Resolved) COPD exacerbation (Resolved) Chronic ulcer of buttock (Resolved) Flash pulmonary edema (Resolved) The patient is a 64 y/o F w/ PMHx: Former Tobacco use, CAD s/p PCI LAD and mid LCx w/ 07/12/19 [facility] txf w/ balloon angioplasty to in-stent stenosis proximal LAD and ostium of the diagonal complicated by undifferentiated shock, Chronic combined Systolic/Diastolic CHF, HTN, HLD, Carotid disease s/p R CEA, L 70-80% stenosis, HTN, HLD, Asthma, Anxiety and Depression, Obesity, Chronic back pain, COPD, Hx CVA, Diabetes mellitus type II, recent admitted 03/18/20-03/24/20 with an acute combined systolic/diastolic CHF exacerbation who now represents to the [facility] ED on 04/17/20 with history of recent discharge from nursing facility earlier in the day on 04/16/2020 and upon return to home with activity increase shortness of breath in addition to chest tightness prompting ED evaluation. 1. Acute Hypoxic Respiratory Failure secondary to Acute on Chronic Chronic combined Systolic/Diastolic CHF: Patient administered IV lasix in the ED, will admit to the ICU, continue BIPAP, maintain on cardiac telemetry, obtain cardiac enzyme series, obtain serial EKGs, continue IV lasix diuresis, monitor I/Os, maintain on intake restriction, continue medical therapy w/ asa, statin, BB, holding ACEI/spironolactone given YULISA concurrently, add back once appropriate. Will obtain TSH and magnesium level. Most recent ECHO noted 03/18/20 with EF 25 to 30%, stage II diastolic dysfunction, severe hypokinesis anterior wall, lateral wall, septum and apex, moderately enlarged LA, mildly enlarged RA, PASP 55 mmHg. Given significant representation with again acute on chronic CHF exacerbation will request cardiology involvement. ICU physician consulted, pending. Given elevated d-dimer obtained per ED and underlying renal disease, will defer CTPA, will maintain on heparin drip and obtain BL LE duplex US. COVID testing pending, maintain in precautions pending results. 2. Acute Sepsis secondary to Acute Urinary Tract Infection: UA upon ED evaluation remarkable, pending UCx, monitor I/Os, continue IV Rocephin w/ transition as able pending sensitivities and speciation. Bld cx x 2 obtained in the ED. 3. CKD stage III: Admission BUN/Cr 22/1.61, prior baseline creatinine noted to be 1.5-1.7 although has vacillated but recently increased. Will continue judicious IV Lasix usage, monitor for any renal function changes. 4. Chronic normocytic anemia: Admission hemoglobin 10.3, baseline appears 8-9, stable, trend. 5. Diabetes mellitus type II: 03/19/2020 hemoglobin A1c 7%, will continue ADA diet, maintain on Accu-Cheks with insulin sliding scale. 6. Anxiety and depression: We will continue patient home BuSpar and sertraline regimen. 7. Carotid disease: Status post right CEA, left with noted ongoing stenosis with continued outpatient evaluation, maintain on aspirin, Plavix, statin therapy. 8. Hypertension: Maintain on IV Lasix as noted, continue metoprolol, lisinopril and spironolactone, PRN IV hydralazine. 9. Hyperlipidemia: Continue statin therapy. 10. Obesity: Weight loss and lifestyle changes encouraged, nutrition consulted for education and teaching. 11. Former Tobacco Abuse: Encouraged continued cessation, notes quit ~15 months prior to current presentation. 12. History CVA: We will continue on aspirin, Plavix, hypertensive regimen, statin therapy, DM treatment. 13. Chronic COPD: Currently on BiPAP as noted above, ATC duonebs, PRN albuterol, HOB, IS parameters. 14. DVT prophylaxis: SCDs, heparin drip pending BL LE duplex US. 15. CODE status: Discussed previously with patient need to set up a healthcare Pap attorney at law and a living will given her significant comorbidities and health history. Again encouraged her to discuss these items with case management/social work to assist in setting up. Especially given patient presentation with need for BiPAP, discussed CODE status at length including difference between FULL code, DNR-CCA and DNR-CC status. Following discussions about the differences in these status, requested Full Code status. Advanced Care Planning Face to Face Time: 16 minutes. Inpatient E&M: 29413 Init Hosp L3 Procedures: 37141 Advncd Care Plan 30 Min
[2020-04-17 03:45] LABS: Probe Check PASS; Specimen Processing Control PASS
[2020-04-17 04:15] LABS: International Normalized Ratio 1.2; Partial Thromboplast Time 31.9 Seconds (24.1-36.2); Prothrombin Time (Protime)PT. 14.8 SECONDS (11.7-14.9)
[2020-04-17] MEDS: Furosemide 100 MG/10 ML Vial 80 MG IV ×3 (04:18→17:31)
[2020-04-17] MEDS: Heparin Injection (Vial) 5,000 UNIT/ML VIAL 5000 UNIT IV (04:25)
[2020-04-17] MEDS: HEPARIN/D5w 25,000 UNITS 25,000 UNITS/250 ML IV.SOLN. 11 UNITS IV (04:27)
--- NOTE | 2020-04-17 05:16 | VDLE_ITS ---
Reason For Study: Shortness of Breath RIGHT LEFT GSV is normal. GSV is normal. CFV is compressible, spontaneous, competent CFV is compressible, spontaneous, competent, and demonstrates pulsatile venous flow. and demonstrates pulsatile venous flow. FV is compressible, spontaneous, competent FV is compressible, spontaneous, competent and demonstrates pulsatile venous flow. and demonstrates pulsatile venous flow. FV mid-distal appears patent visualized with FV mid-distal appears patent visualized with color only. Unable to toelrate compression color only. Unable to toelrate compression due to edema. due to edema. POP V is compressible, spontaneous, competent POP V is compressible, spontaneous, competent and demonstrates pulsatile venous flow. and demonstrates pulsatile venous flow. T/P Trunk is compressible. T/P Trunk is compressible. PTV is compressible. PTV is compressible. RT PerV is compressible. LT PerV is compressible. Procedure This is a venous duplex using B-mode, color flow and spectral Doppler. Exam performed portable in ICU/CCU. A preliminary report was called and/or faxed to ICU. Interpretation Summary No evidence for acute deep venous thrombosis bilateral lower extremities with patent and compressible bilateral great saphenous veins. Pulsitile venous flow is noted bilaterally consistent with proximal venous hypertension or occlusion. Clinicial correlation is indicated. Ordering Physician: Isatu Roegl Referring Physician: SHEA Jimenez M.D. Performed By: Steph Flores RVT and Student
--- NOTE | 2020-04-17 05:53 | CPS ---
Pt.'s IPAP and EPAP decreased, as well as the FiO2; maintaining pt.'s oxygenation needs
[2020-04-17 05:54] LABS: ALB/GLOB Ratio 0.8 RATIO (0.9-2.4); AST(SGOT) 18 U/L (15-37); Alanine Aminotransfer ALT/SGPT 14 U/L (13-56); Albumin, Serum 3.2 g/dL (3.2-5.0); Alkaline Phosphatase 125 U/L (45-117); Anion Gap 10 (5-15); BUN 23 mg/dL (7-18); BUN/Creat Ratio 14.4 RATIO (10-20); Calcium,Total 8.8 mg/dL (8.5-10.1); Chloride 100 mmol/L (98-107); EST Glomerular Filtration Rate 34 mL/min (>60); Est Glom Filt Rate - Afr Amer 42 mL/min (>60); Estimated Creatinine Clearance 42.79 ml/min; Globulin 3.8 g/dL (2.2-4.2); Glucose 119 mg/dL (74-106); Magnesium 2.2 mg/dL (1.6-2.6); Potassium 3.5 mmol/L (3.5-5.1); Sodium Level 138 mmol/L (136-145)
[2020-04-17] MEDS: Acetaminophen 325 MG Tablet 650 MG PO ×2 (05:56→12:51)
[2020-04-17] MEDS: busPIRone 5 MG Tablet 20 MG PO ×3 (05:57→20:56)
[2020-04-17] MEDS: oxyCODONE 5 MG Tablet PO ×4 (05:57→23:20)
--- NOTE | 2020-04-17 06:15 | PCM.CON.CC ---
Reason for Consult Date of Consultation: 04/17/20 Reason for Consultation: Respiratory failure History of Present Illness: The patient is a 64-year-old female, with a history as outlined below, who presented to the emergency department on April 17 with complaints of worsening shortness of breath and chest pain. The patient was recently admitted to the hospital for a week at the end of February, during which time, she was treated for decompensated heart failure. The patient was discharged from the hospital to [facility], where she apparently resided until April 16 when she was discharged home. The patient follows with Dr. Good on an outpatient basis due to a history of chronic combined systolic and diastolic heart failure and coronary artery disease. The patient is a poor historian and able to provide little insight into her medical history and events leading up to her hospitalization. She does report having been diagnosed with COPD previously, but denies ever having been evaluated by a director of athletics. On presentation to the emergency department, the patient was noted to be afebrile but was tachycardic and tachypneic. Laboratory evaluation revealed an elevated white blood cell count to 12,000. D-dimer was elevated to 3.27. Chemistry profile was notable for a creatinine of 1.60. BNP was elevated to greater than 5000. Troponin was negative. Urinalysis revealed positive nitrites and leukocyte esterase. 3+ urine bacteria was noted. Coronavirus PCR was negative. Chest x-ray revealed pulmonary vascular congestion with a probable left-sided pleural effusion. The patient was placed on BiPAP for period of time and admitted to the medical intensive care unit for further management. She was also started on an aggressive diuretic regimen. Past Medical History Past Medical History (Chronic Problems): Chronic Problems (Last Reviewed 01/21/20 @ 10:[address] Jacob Byrd MD) Acute on chronic systolic CHF (congestive heart failure) (Chronic) Acute exacerbation of CHF (congestive heart failure) (Chronic) Dyspnea (Chronic) Acute kidney injury superimposed on CKD (Chronic) Acute kidney injury superimposed on chronic kidney disease (Chronic) Atherosclerosis of coronary artery of [place] heart without angina pectoris (Chronic) History of coronary artery stent placement (Chronic 05/18/18) PCI-JAZIEL-LAD w/ 2.0 x 30 mm and 2.5 x 34 mm Resolute Waucoma and PCI-JAZIEL-Mid LCx w/ Resolute Waucoma 2.0 x 30 mm and 2.0 x 22 mm Stent 05/18/2018 Chronic combined systolic and diastolic CHF (congestive heart failure) (Chronic) Bilateral carotid artery stenosis (Chronic) RCEA and L carotid 70-80% stenosis Non-rheumatic tricuspid valve insufficiency (Chronic) Nonrheumatic mitral (valve) insufficiency (Chronic) Secondary pulmonary arterial hypertension (Chronic) Essential (primary) hypertension (Chronic) Hyperlipidemia (Chronic) CVA (cerebral vascular accident) (Chronic) PAD (peripheral artery disease) (Chronic) Debility (Chronic) Medical History: Medical History (Last Reviewed 01/21/20 @ 10:[address] Jacob Byrd MD) Atherosclerosis of coronary artery of [place] heart without angina pectoris (Chronic) I25.10 Chronic combined systolic and diastolic CHF (congestive heart failure) (Chronic) I50.42 Bilateral carotid artery stenosis (Chronic) I65.23 RCEA and L carotid 70-80% stenosis Non-rheumatic tricuspid valve insufficiency (Chronic) I36.1 Nonrheumatic mitral (valve) insufficiency (Chronic) I34.0 Secondary pulmonary arterial hypertension (Chronic) I27.21 Essential (primary) hypertension (Chronic) I10 Hyperlipidemia (Chronic) E78.5 CVA (cerebral vascular accident) (Chronic) I63.9 PAD (peripheral artery disease) (Chronic) I73.9 Debility (Chronic) R53.81 Asthma J45.909 COPD (chronic obstructive pulmonary disease) J44.9 Chronic back pain M54.9, G89.29 Depression F32.9 Former tobacco use Z87.891 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 Type 2 diabetes mellitus E11.9 Acute on chronic combined systolic (congestive) and diastolic (congestive) heart failure (Resolved) I50.43 Hematoma of left foot S90.32XA Nicotine dependence F17.200 Allergies Penicillins Allergy (Severe, Verified 04/17/20 01:12) Swelling tolerated keflex in past with no issue fluoxetine [From Prozac] Adverse Reaction (Verified 04/17/20 01:12) NEEDS FOLLOW-UP pravastatin [From Pravachol] Adverse Reaction (Verified 04/17/20 01:12) NEEDS FOLLOW-UP Home Medications: Ambulatory Orders Medication Instructions Recorded Clopidogrel Bisulfate [Clopidogrel] 75 mg PO DAILY 05/24/18 Aspirin [Aspirin, Baby] 81 mg PO DAILY@0800 07/12/19 Albuterol Sulfate [Albuterol 2 puff IH 4X/DAY 09/28/19 Sulfate HFA] Loratadine 10 mg PO DAILY PRN PRN 09/28/19 Melatonin 10 mg PO QHS PRN tab 10/02/19 spironolactone 25 mg tablet 12.5 mg PO DAILY tab 12/18/19 Insulin Lispro [Humalog KwikPen] See Protocol SUBCUT ACHS 01/21/20 Oxycodone HCl 5 mg PO Q6H PRN PRN 01/21/20 metoprolol succinate 25 mg 25 mg PO DAILY tab 03/13/20 tablet,extended release 24 hr pantoprazole 40 mg tablet,delayed 40 mg PO DAILY 03/13/20 release Atorvastatin Calcium 80 mg PO QHS 03/18/20 Buspirone HCl 20 mg PO TID 03/18/20 Cholecalciferol (Vitamin D3) 2,000 unit PO DAILY 03/18/20 [Vitamin D3] Ferrous Sulfate 325 mg PO DAILY 03/18/20 Nut.tx.gluc.intoler,Lac-Fr,Soy 120 ml PO BID 03/18/20 [Glucerna] Insulin Glargine [Lantus SoloStar 10 units SC 1100,2200 pen 03/21/20 Pen] Acetaminophen [Tylenol Tablet] 325 - 650 mg PO Q6H PRN PRN 04/17/20 Bisacodyl [Dulcolax] 10 mg RECTAL DAILY PRN PRN 04/17/20 Furosemide 80 mg PO BID 04/17/20 Gabapentin [Neurontin] 100 mg PO QHS 04/17/20 Mometasone Furoate 15 gm TP BID PRN 04/17/20 Nitroglycerin [Nitrostat] 0.4 mg SL Q5M PRN 04/17/20 Triamcinolone 0.1% Cream [Kenalog] 1 applic TOPICAL TID PRN PRN 04/17/20 Surgical History: Surgical History (Last Reviewed 01/21/20 @ 10:[address] 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 Charles Good MD) Mother No problems noted. History Items: High Cholesterol, Heart Disease, Hypertension, Stroke, - - Patient's mother in her 40s from a cerebrovascular accident. Paternal Family History: Family History (Last Reviewed 12/18/19 @ 15:[address] Charles Good MD) Mother No problems noted. History Items: High Cholesterol, Heart Disease, Hypertension, - - Patient's father in his 40s from myocardial infarction. Review of Systems Constitutional: Denies: Chills, Fever Eyes: Denies: Blurred vision, Double vision HEENT: Denies: Head Aches, Sinus Congestion, Sinus Drainage Cardiovascular: Reports: Chest Pain, Chest Tightness, Edema Respiratory: Reports: Shortness of Breath Gastrointestinal: Denies: Abdominal Pain, Nausea, Vomiting Genitourinary: Denies: Dysuria Musculoskeletal: Reports: Back Pain Skin: Denies: Rash, Wounds Neurological: Denies: Numbness, Tingling, Focal weakness Psychiatric: Reports: Anxiety, Depression Hematologic/ Lymphatic: Reports: Anemia Objective: The patient's most recent lab work, culture data and imaging studies have all been personally reviewed. Surface echocardiogram from June 2019 revealed a moderately dilated LV with an ejection fraction of 45% and stage I diastolic dysfunction. Severe mitral valve insufficiency was noted. Right ventricular systolic pressure was noted to be 55 mmHg. Coronavirus PCR was negative. Blood and urine cultures are pending. - Physical Exam Vitals/I&O's: Vital Signs Temp Pulse Resp BP Pulse Ox 97.4 F L 96 27 H 158/80 H 99 04/17/20 05:30 04/17/20 06:00 04/17/20 06:00 04/17/20 06:00 04/17/20 06:00 Oxygen Flow Rate (L/min) 2 Oxygen Delivery Method Nasal Cannula Weight: 168 lb 3.403 oz Body Mass Index (BMI) 34.0 Intake and Output for Last 24 Hours 04/15/20 04/16/20 04/17/20 23:59 23:59 23:59 Intake Total 110 / 110 Balance 110 / 110 General: - - The patient is somewhat somnolent but arousable. She remains on BiPAP at the present time. HEENT: Atraumatic, PERRLA, Normocephalic Oral: No Gingival or Mucosal Lesions/ Ulcerations Neck: Supple, No Nodes, Trachea Midline Lungs: - - Globally diminished air movement without appreciable wheezes, rales or rhonchi. Cardiovascular: Regular rate, Regular Rhythm, Murmur Abdomen: Bowel Sounds Present, Soft, Non Tender, Obese Extremities: No clubbing, No cyanosis, Edema Skin: No rashes Musculoskeletal: No Muscle Wasting Neurological: - - No focal neurological deficits. Psych/Mental Status: Flat Affect Labs (Last 48 Hours) 04/17/20 04/17/20 04/17/20 01:30 01:30 01:30 WBC 12.3 H RBC 4.00 L Hgb 10.3 L Hct 34.1 L MCV 85.3 MCH 25.8 L MCHC 30.2 L RDW Std Deviation 59.5 H RDW Coeff of Jade 19.3 H Plt Count 450 MPV 8.5 Immature Gran % (Auto) 0.300 Neut % (Auto) 83.3 H Lymph % (Auto) 8.0 L Mineral % (Auto) 6.3 Eos % (Auto) 1.7 Baso % (Auto) 0.4 Absolute Neuts (auto) 10.3 H Absolute Lymphs (auto) 0.98 Nucleated RBC % 0 PT INR APTT D-Dimer Quant (PE/DVT) 3.27 H* Specimen Type Sample Site pH Bicarbonate Actual Total CO2 Base Excess O2 Saturation O2 % ABG pCO2 ABG pO2 Mark Test Respiration Rate O2 Delivery Device POC PEEP Sodium 138 Potassium 3.5 Chloride 103 Carbon Dioxide 28.0 Anion Gap 7 BUN 22 H Creatinine 1.61 H Estim Creat Clear Calc 25.36 Est GFR (MDRD) Af Amer 41 L Est GFR (MDRD) Non-Af 34 L BUN/Creatinine Ratio 13.7 Glucose 122 H Lactic Acid Calcium 9.0 Magnesium Total Bilirubin AST ALT Alkaline Phosphatase Troponin I 0.043 B-Natriuretic Peptide Total Protein Albumin Globulin Albumin/Globulin Ratio Procalcitonin Urine Color Urine Clarity Urine pH Ur Specific Kaycee Urine Protein Urine Glucose (UA) Urine Ketones Urine Occult Blood Urine Nitrite Urine Bilirubin Urine Urobilinogen Ur Leukocyte Esterase Urine RBC Urine WBC Ur Squamous Epith Cells Urine Bacteria Urine Mucus COVID-19 (MICHELLE) 04/17/20 04/17/20 04/17/20 01:30 01:30 01:30 WBC RBC Hgb Hct MCV MCH MCHC RDW Std Deviation RDW Coeff of Jade Plt Count MPV Immature Gran % (Auto) Neut % (Auto) Lymph % (Auto) Mineral % (Auto) Eos % (Auto) Baso % (Auto) Absolute Neuts (auto) Absolute Lymphs (auto) Nucleated RBC % PT 14.8 INR 1.2 APTT 31.9 D-Dimer Quant (PE/DVT) Specimen Type Sample Site pH Bicarbonate Actual Total CO2 Base Excess O2 Saturation O2 % ABG pCO2 ABG pO2 Mark Test Respiration Rate O2 Delivery Device POC PEEP Sodium Potassium Chloride Carbon Dioxide Anion Gap BUN Creatinine Estim Creat Clear Calc Est GFR (MDRD) Af Amer Est GFR (MDRD) Non-Af BUN/Creatinine Ratio Glucose Lactic Acid Calcium Magnesium Total Bilirubin AST ALT Alkaline Phosphatase Troponin I B-Natriuretic Peptide > 5000.0 H Total Protein Albumin Globulin Albumin/Globulin Ratio Procalcitonin 0.04 Urine Color Urine Clarity Urine pH Ur Specific Kaycee Urine Protein Urine Glucose (UA) Urine Ketones Urine Occult Blood Urine Nitrite Urine Bilirubin Urine Urobilinogen Ur Leukocyte Esterase Urine RBC Urine WBC Ur Squamous Epith Cells Urine Bacteria Urine Mucus COVID-19 (MICHELEL) 04/17/20 04/17/20 04/17/20 01:30 01:50 02:15 WBC RBC Hgb Hct MCV MCH MCHC RDW Std Deviation RDW Coeff of Jade Plt Count MPV Immature Gran % (Auto) Neut % (Auto) Lymph % (Auto) Mineral % (Auto) Eos % (Auto) Baso % (Auto) Absolute Neuts (auto) Absolute Lymphs (auto) Nucleated RBC % PT INR APTT D-Dimer Quant (PE/DVT) Specimen Type Sample Site pH Bicarbonate Actual Total CO2 Base Excess O2 Saturation O2 % ABG pCO2 ABG pO2 Mark Test Respiration Rate O2 Delivery Device POC PEEP Sodium 138 Potassium 3.5 Chloride 100 Carbon Dioxide 28.0 Anion Gap 10 BUN 23 H Creatinine 1.60 H Estim Creat Clear Calc 42.79 Est GFR (MDRD) Af Amer 42 L Est GFR (MDRD) Non-Af 34 L BUN/Creatinine Ratio 14.4 Glucose 119 H Lactic Acid 0.8 Calcium 8.8 Magnesium 2.2 Total Bilirubin 0.50 AST 18 ALT 14 Alkaline Phosphatase 125 H Troponin I 0.036 B-Natriuretic Peptide Total Protein 7.0 Albumin 3.2 Globulin 3.8 Albumin/Globulin Ratio 0.8 L Procalcitonin Urine Color Urine Clarity Urine pH Ur Specific Kay[place]e Urine Protein Urine Glucose (UA) Urine Ketones Urine Occult Blood Urine Nitrite Urine Bilirubin Urine Urobilinogen Ur Leukocyte Esterase Urine RBC Urine WBC Ur Squamous Epith Cells Urine Bacteria Urine Mucus COVID-19 (MICHELLE) Negative 04/17/20 04/17/20 02:23 02:32 WBC RBC Hgb Hct MCV MCH MCHC RDW Std Deviation RDW Coeff of Jade Plt Count MPV Immature Gran % (Auto) Neut % (Auto) Lymph % (Auto) Mineral % (Auto) Eos % (Auto) Baso % (Auto) Absolute Neuts (auto) Absolute Lymphs (auto) Nucleated RBC % PT INR APTT D-Dimer Quant (PE/DVT) Specimen Type ART Sample Site R Radial pH 7.44 Bicarbonate Actual 27.7 H Total CO2 29 Base Excess 4 H O2 Saturation 95 O2 % 30 ABG pCO2 40.6 ABG pO2 75 Mark Test Positive Respiration Rate 12 O2 Delivery Device BiPAP POC PEEP 8 Sodium Potassium Chloride Carbon Dioxide Anion Gap BUN Creatinine Estim Creat Clear Calc Est GFR (MDRD) Af Amer Est GFR (MDRD) Non-Af BUN/Creatinine Ratio Glucose Lactic Acid Calcium Magnesium Total Bilirubin AST ALT Alkaline Phosphatase Troponin I B-Natriuretic Peptide Total Protein Albumin Globulin Albumin/Globulin Ratio Procalcitonin Urine Color Yellow Urine Clarity Clear Urine pH 7.0 Ur Specific Kaycee 1.015 Urine Protein 100 H Urine Glucose (UA) Normal Urine Ketones Negative Urine Occult Blood 25 H Urine Nitrite Positive H Urine Bilirubin Negative Urine Urobilinogen Normal Ur Leukocyte Esterase 500 H Urine RBC 0-5 SEEN Urine WBC 10-25 SEEN Ur Squamous Epith Cells 0 SEEN Urine Bacteria 3+ Urine Mucus 0 SEEN COVID-19 (MICHELLE) Clinical Impression(s) from Imaging Studies Chest X-Ray 04/17/20 01:37 IMPRESSION: Vascular congestion with mild to moderate left-sided pleural effusion. Electronically Signed: Debbie Trujillo MD at 3:10 EST , Service support , Current Medications Acetaminophen (Acetaminophen 325 Mg Tablet) 650 mg PO Q6H PRN PRN PRN Reason: Pain Score 1-10/Temp > 100.7 F Last Admin: 04/17/20 05:56 Dose: 650 mg Documented by: Al Hydroxide/Mg Hydroxide (Mag Hydrox/Al Hydrox/Simeth 30 Ml Udc) 30 ml PO Q6H PRN PRN PRN Reason: Gastric Burning Albuterol Sulfate (Albuterol 2.5 Mg/3 Ml Vial.Neb.) 2.5 mg INHALATION Q2H PRN PRN PRN Reason: Dyspnea, wheezing Albuterol/Ipratropium (Ipratropium/Albuterol Sulfate 3 Ml Ampul.Neb) 3 ml INHALATION Q6HWA.RT ALBERTO Aspirin (Aspirin 81 Mg Tab.Chew) 81 mg PO DAILY@0800 ALBERTO Atorvastatin Calcium (Atorvastatin Calcium 80 Mg Tablet) 80 mg PO QHS ALBERTO Buspirone HCl (Buspirone 5 Mg Tablet) 20 mg PO TID ALBERTO Last Admin: 04/17/20 05:57 Dose: 20 mg Documented by: Clopidogrel Bisulfate (Clopidogrel Bisulfate 75 Mg Tablet) 75 mg PO DAILY ALBERTO Ferrous Sulfate (Ferrous Sulfate 325 Mg Tablet) 325 mg PO DAILYCM [facility] Furosemide (Furosemide 100 Mg/10 Ml Vial) 80 mg IV BID@1000,1800 ALBERTO Gabapentin (Gabapentin 100 Mg Capsule) 100 mg PO QHS ALBERTO Guaifenesin (Guaifenesin 10 Ml Udc (200mg/10ml)) 10 ml PO Q4H PRN PRN PRN Reason: COUGH Heparin Sodium (Porcine) (Heparin Injection (Vial) 5,000 Unit/Ml Vial) 0 unit IV UD PRN; Protocol PRN Reason: dose adjustment Hydralazine HCl (Hydralazine 20 Mg/Ml Vial) 10 mg IV Q4H PRN PRN PRN Reason: SBP > 160 Heparin Sodium/Dextrose () 25,000 units in 250 mls @ 11 mls/hr IV .[id number] [facility]; Protocol Last Admin: 04/17/20 04:27 Dose: 1,100 units/hr, 11 mls/hr Documented by: Sodium Chloride () 250 mls @ 15 mls/hr IV .[id number] PRN PRN Reason: Saline Flush Sodium Chloride () 250 mls @ 15 mls/hr IV .[id number] PRN PRN Reason: Additional IVPB Infusion Ceftriaxone Sodium 2 gm/ (Sodium Chloride) 50 mls @ 100 mls/hr IV Q24H [facility] Insulin Glargine (Insulin Glargine 100 Units/Ml Pen) 10 units SC 1100,2200 [facility] Insulin Human Lispro (Insulin Lispro 100 Unit/Ml Insuln.Pen) 0 unit SC ACHS [facility]; Protocol Loratadine (Loratadine 10 Mg Tablet) 10 mg PO DAILY PRN PRN PRN Reason: ALLERGIES Magnesium Hydroxide (Magnesium Hydroxide 30 Ml Udc) 30 ml PO DAILY PRN PRN PRN Reason: Constipation Melatonin (Melatonin 10 Mg Tablet) 10 mg PO QHS PRN PRN PRN Reason: INSOMNIA Metoprolol Succinate (Metoprolol(Xl)Succ 25 Mg Tablet) 25 mg PO DAILY [facility] Morphine Sulfate (Morphine 2 Mg/Ml Syringe) 2 mg IV Q3H PRN PRN PRN Reason: Pain Score 6-10 Ondansetron HCl (Ondansetron 4 Mg/2 Ml Vial) 4 mg IV Q8H PRN PRN PRN Reason: NAUSEA/VOMITING Oxycodone HCl (Oxycodone 5 Mg Tablet) 5 mg PO Q6H PRN PRN PRN Reason: Pain Score 1-10 Last Admin: 04/17/20 05:57 Dose: 5 mg Documented by: Pantoprazole Sodium (Pantoprazole Sodium 40 Mg Tablet) 40 mg PO DAILY [facility] Prochlorperazine Edisylate (Prochlorperazine 10 Mg/2 Ml Vial) 5 mg IV Q4H PRN PRN PRN Reason: Breakthrough Nausea/Vomiting Psyllium Hydrophilic Mucilloid (Psyllium 1 Packet) 1 packet PO DAILY PRN PRN PRN Reason: Constipation Senna/Docusate Sodium (Senna/Docusate Sodium 1 Tablet) 2 tablet PO BID PRN PRN PRN Reason: Constipation Sodium Chloride (0.9% Saline Lock 10 Ml Syringe) 10 - 40 ml IV UD PRN PRN Reason: SALINE FLUSH Spironolactone (Spironolactone 25 Mg Tablet) 12.5 mg PO DAILY ALBERTO Throat Lozenges (Benzocaine/Menthol 1 Lozenge) 1 lozenge MUCOUS MEM Q2H PRN PRN PRN Reason: SORE THROAT Assessment/Plan RECOMMENDATIONS: 1. Wean patient from BiPAP to nasal cannula supplemental oxygen. Goal to maintain saturations at or above 90%. 2. Continue Lasix regimen as ordered. 3. Continue antimicrobials, pending finalized infectious work-up. 4. Continue bronchodilator therapy. 5. Encourage incentive spirometer use and mobilize patient as tolerated. 6. Await lower extremity doppler studies. Continue heparin for now. 7. If Doppler studies are negative, the patient can be transition to prophylactic Lovenox. 8. Will sign off from a critical care perspective. Please call with any additional questions. IMPRESSIONS: 1. Acute hypoxemic respiratory failure secondary to decompensated congestive heart failure The patient was just [facility], only to present to the emergency department with shortness of breath and findings concerning for decompensated heart failure. The patient was placed on BiPAP therapy along with IV Lasix and subsequently admitted to the medical intensive care unit. The patient has responded favorably to the use of positive pressure ventilatory support and diuresis. Her oxygenation status has improved. Cardiology consultation is currently pending. Continue current supportive measures. 2. Presumptive urinary tract infection Continue antimicrobials as ordered, pending finalized infectious work-up. 3. Self-reported history of COPD/history of tobacco dependency in remission The patient has a self-reported history of COPD of unknown severity, having never previously been evaluated by a director of athletics or having completed PFTs. Therefore, at this time, we will plan to continue bronchodilator therapy and wean oxygen as tolerated to maintain saturations at or above 90%. 4. Obesity/depression/anxiety/chronic pain syndrome/hypertension/hyperlipidemia/diabetes mellitus Complicates care, management, recovery and prognosis. Continue home medications as indicated. Physical therapy to work with the patient. This note was generated with vBrandation software. It may contain incorrect words, spelling, and punctuation that were not noted in checking the note before signing. Inpatient E&M: [id number] Init Hosp L3
[2020-04-17] MEDS: Ipratropium/Albuterol Sulfate 3 ML AMPUL.NEB INHALATION ×3 (07:00→18:58)
[2020-04-17 07:27] LABS: Absolute Lymphocyte Count 1.11 X10^3/uL (0.83-4.51); Basophil# 0.05 X10^3/uL; Basophil% 0.5 % (0-1); Eosinophil# 0.13 X10^3/uL; Eosinophils% 1.3 % (0-5); Hematocrit 29.8 % (37-47); Hemoglobin 8.7 g/dL (12.0-15.0); Lymphocyte # 1.11 X10^3/ul (4.0); Lymphocyte % 11.1 % (19-41); Mean Corp Hgb Conc 29.2 g/dL (32-36); Mean Corpuscular Hgb 25.1 pg (27.0-32.0); Mean Corpuscular Volume 86.1 fL (81-99); Mean Platelet Vol. 8.8 fl (6.2-12.0); Monocyte# 0.64 X10^3/uL; Monocyte% 6.4 % (0-10); NRBC Flagged by Analyzer 0 % (0-5); Neutrophil # 8.01 X10^3/uL (2.7-7.7); Neutrophil % 80.1 % (47-70); Platelet Count 402 K/mm3 (150-450); RBC Distribution Width CV 19.3 % (11.6-14.6); RBC Distribution Width SD 60.6 fl (35.1-43.9); Red Blood Count 3.46 M/mm3 (4.2-5.4)
--- NOTE | 2020-04-17 07:41 | PCM.HOSP.N ---
Hospitalist Note The patient was admitted drier take off tender. H&P, vitals, lab findings, imagings reviewed. 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 Seen and examined Patient is 64-year-old female with multiple comorbidities including coronary artery status post LAD PCI, mid circumflex on 07/12/2019 admitted with acute hypoxic respiratory failure secondary to acute on chronic combined systolic and diastolic heart failure.The patient was recently admitted at the end of February for 1 week for decompensated heart failure with similar symptoms. Physical exam: General: Alert, Oriented x3, Cooperative HEENT: Atraumatic, PERRLA, EOMI, Normocephalic Oral: No Gingival or Mucosal Lesions/ Ulcerations Neck: Supple, No JVD, Negative Carotid Bruits Lungs: Air entry severely diminished in bilateral lungs. Bilateral coarse rhonchi present. On BiPAP Cardiovascular: Regular rate, Regular Rhythm, Normal S1, Normal S2, No murmurs Abdomen: Bowel Sounds Present, Soft, Non Tender, Non-Distended : No renal angle tenderness. No suprapubic tenderness. Extremities: No edema, Capillary Refill Less than 3 Seconds Skin: No rashes, No breakdown Musculoskeletal: No Tenderness to Palpation of Joints or Extremities Neurological: Cranial nerves II-XII grossly intact, Deep Tendon Reflexes 2+/4 and Symmetrical, Neuro grossly intact Psych/Mental Status: Anxious personality 1. Acute Hypoxic Respiratory Failure secondary to Acute on Chronic Chronic combined Systolic/Diastolic CHF and history of COPD: Patient tachycardic and tachypneic. WBC elevated 12,000. D-dimer 3.27. Creatinine 1.6. BNP elevated 5000. Troponin negative. On IV Lasix. 2. Acute lower urinary Tract Infection/cystitis: UA shows 3+ urine bacteria, positive nitrite and LE. Empirically on IV Rocephin. Blood cultures x2 and urine culture pending. 3. CKD stage III: Admission BUN/Cr 22/1.61, prior baseline creatinine noted to be 1.5-1.7. Monitor electrolytes, intake and output, weight as patient is on Lasix for heart failure admission above 4. Chronic normocytic anemia: Admission hemoglobin 10.3, baseline appears 8-9, stable, trend. 5. Diabetes mellitus type II: 03/19/2020 hemoglobin A1c 7%, on Accu-Cheks and sliding scale insulin 6. Anxiety and depression: continue patient home BuSpar and sertraline regimen. 7. Carotid disease: Status post right CEA, left 70 to 80% stenosis: Continue aspirin, Plavix and statin. 8. Hypertension: continue metoprolol, lisinopril and spironolactone, PRN IV hydralazine. 9. Hyperlipidemia: Continue statin therapy. Other comorbidities include obesity, former tobacco use, CVA history. DVT prophylaxis: SCDs, heparin drip pending BL LE duplex US.
[2020-04-17] MEDS: Metoprolol(XL)Succ 25 MG Tablet PO (09:08)
[2020-04-17] MEDS: Clopidogrel Bisulfate 75 MG Tablet PO (09:09)
[2020-04-17] MEDS: Ferrous Sulfate 325 MG Tablet PO (09:10)
[2020-04-17] MEDS: Spironolactone 25 MG Tablet 12.5 MG PO (09:10)
[2020-04-17] MEDS: Pantoprazole Sodium 40 MG Tablet PO (09:10)
[2020-04-17] MEDS: Aspirin 81 MG TAB.CHEW PO (09:10)
[2020-04-17 12:19] LABS: Glucose 116 mg/dL (74-106)
[2020-04-17 13:01] LABS: Partial Thromboplast Time > 250.0 Seconds (24.1-36.2)
--- NOTE | 2020-04-17 14:49 | CON.PCM_ITS ---
Reason for Consult Date of Consultation: 04/17/20 Reason for Consultation: Shortness of breath. History of Present Illness: The patient is a 64 year old F who presented to the emergency room a few days ago with progressive shortness of breath. In the emergency room she was noted to be rather dyspneic and was placed on a BiPAP and transferred to the intensive care unit. Her initial diagnosis was acute on chronic congestive heart failure. She was rapidly diuresed and weaned off her oxygen requirements. Her initial EKG demonstrated sinus rhythm with no acute changes. Natruretic peptide was noted to be markedly elevated. This was corroborated by x-ray findings. Due to her previous cardiac history cardiology was called for further evaluation and management. [] As you know she had previously been admitted to the hospital with shortness of breath. She was diagnosed as having congestive heart failure and had left ventricular systolic dysfunction with an estimated ejection fraction of 35% with segmental wall motion abnormalities. She also underwent a cardiac catheterization during that visit which demonstrated the following:Left main coronary artery normal,Left anterior descending artery with long areas of multiple 90% stenosis,Left circumflex artery with mid circumflex 80-90% stenosis and mid to distal 80-90% stenosis. Left to right collaterals noted,Dominant right coronary artery which is totally occluded. She was noted to have Severe left ventricular systolic dysfunction with akinetic inferior wall. Based on the above she was transferred to a tertiary care hospital at [facility] for consideration for coronary artery bypass surgery as well as mitral valve repair. It appears she underwent multivessel angioplasty there and was discharged. The discharge records were reviewed and she had undergone an extensive angioplasty and stenting to the left anterior descending artery and diagonal vessel as well as the left circumflex artery. She ended up having successful deployment of an overlapping resolute Issa 2.0 x 30 mm and 3.0 x 22 mm drug-eluting stent from the middle third of the circumflex artery and to the third obtuse marginal branch, successful deployment of an overlapping resolute Issa 2.0 x 30 mm and 2.5 x 34 mm drug-eluting stent from the proximal LAD into the middle third of the first diagonal vessel. The right coronary artery was left untouched. She subsequently presented back to the hospital here and underwent a repeat cardiac catheterization in June 2018 which demonstrated patency of this vessel. A transesophageal echocardiogram demonstrated at least moderately severe mitral regurgitation she was diuresed had her medications optimized with a view that she may need eventual repair of her mitral valve. After discussion with the interventional structural heart disease specialist at [facility] it was felt that she should undergo 3 months of Plavix and repeat her echocardiogram. It demonstrated an ejection fraction of 50%, stage III diastolic dysfunction, moderate 2-3+ eccentric mitral regurgitation and pulmonary artery systolic pressure estimated to be 54 mmHg. For reasons that are not entirely clear she did not undergo any surgery. She was admitted here in September 2019 with increasing shortness of breath and severe lower extremity edema bilaterally. She was started on intravenous Lasix as a drip. She did have some renal dysfunction. She eventually was discharged to [facility]. She recently had a repeat echocardiogram done at [facility] in November of this year. It demonstrated an ejection fraction of 25 to 30% with diffuse hypokinesis and moderate to moderately severe mitral regurgitation. Moderate to severe tricuspid regurgitation was noted once again. A more recent echocardiogram from February of this year demonstrated an ejection fraction estimated to be 25 to 30%, akinetic anterior wall, severe mitral regurgitation and moderately severe tricuspid regurgitation with moderate pulmonary hypertension. This morning she appears to be doing better and is breathing on nasal cannula oxygen. She is still dyspneic Past Medical History Allergies/Adverse Reactions: Allergies Penicillins Allergy (Severe, Verified 04/17/20 01:12) Swelling tolerated keflex in past with no issue fluoxetine [From Prozac] Adverse Reaction (Verified 04/17/20 01:12) NEEDS FOLLOW-UP pravastatin [From Pravachol] Adverse Reaction (Verified 04/17/20 01:12) NEEDS FOLLOW-UP Home Medications: Ambulatory Orders Medication Instructions Recorded Clopidogrel Bisulfate [Clopidogrel] 75 mg PO DAILY 05/24/18 Aspirin [Aspirin, Baby] 81 mg PO DAILY@0800 07/12/19 Albuterol Sulfate [Albuterol 2 puff IH 4X/DAY 09/28/19 Sulfate HFA] Loratadine 10 mg PO DAILY PRN PRN 09/28/19 Melatonin 10 mg PO QHS PRN tab 10/02/19 spironolactone 25 mg tablet 12.5 mg PO DAILY tab 12/18/19 Insulin Lispro [Humalog KwikPen] See Protocol SUBCUT ACHS 01/21/20 Oxycodone HCl 5 mg PO Q6H PRN PRN 01/21/20 metoprolol succinate 25 mg 25 mg PO DAILY tab 03/13/20 tablet,extended release 24 hr pantoprazole 40 mg tablet,delayed 40 mg PO DAILY 03/13/20 release Atorvastatin Calcium 80 mg PO QHS 03/18/20 Buspirone HCl 20 mg PO TID 03/18/20 Cholecalciferol (Vitamin D3) 2,000 unit PO DAILY 03/18/20 [Vitamin D3] Ferrous Sulfate 325 mg PO DAILY 03/18/20 Nut.tx.gluc.intoler,Lac-Fr,Soy 120 ml PO BID 03/18/20 [Glucerna] Insulin Glargine [Lantus SoloStar 10 units SC 1100,2200 pen 03/21/20 Pen] Acetaminophen [Tylenol Tablet] 325 - 650 mg PO Q6H PRN PRN 04/17/20 Bisacodyl [Dulcolax] 10 mg RECTAL DAILY PRN PRN 04/17/20 Furosemide 80 mg PO BID 04/17/20 Gabapentin [Neurontin] 100 mg PO QHS 04/17/20 Nitroglycerin [Nitrostat] 0.4 mg SL Q5M PRN 04/17/20 Triamcinolone 0.1% Cream [Kenalog] 1 applic TOPICAL TID PRN PRN 04/17/20 Past Medical History (Chronic Problems): Chronic Problems (Last Reviewed 01/21/20 @ 10:[address] Jacob Byrd MD) Acute on chronic systolic CHF (congestive heart failure) (Chronic) Acute exacerbation of CHF (congestive heart failure) (Chronic) Dyspnea (Chronic) Acute kidney injury superimposed on CKD (Chronic) Acute kidney injury superimposed on chronic kidney disease (Chronic) Atherosclerosis of coronary artery of nome heart without angina pectoris (Chronic) History of coronary artery stent placement (Chronic 05/18/18) PCI-JAZIEL-LAD w/ 2.0 x 30 mm and 2.5 x 34 mm Resolute Issa and PCI-JAZIEL-Mid LCx w/ Resolute Blackstone 2.0 x 30 mm and 2.0 x 22 mm Stent 05/18/2018 Chronic combined systolic and diastolic CHF (congestive heart failure) (Chronic) Bilateral carotid artery stenosis (Chronic) RCEA and L carotid 70-80% stenosis Non-rheumatic tricuspid valve insufficiency (Chronic) Nonrheumatic mitral (valve) insufficiency (Chronic) Secondary pulmonary arterial hypertension (Chronic) Essential (primary) hypertension (Chronic) Hyperlipidemia (Chronic) CVA (cerebral vascular accident) (Chronic) PAD (peripheral artery disease) (Chronic) Debility (Chronic) Surgical History: - - R CEA, L 5th toe amputation, PCI, T+A. Psychiatric History: Anxiety, Depression SHANK TAPPER History: No pertinent SHANK TAPPER history - *Family History Maternal Family History: Family History (Last Reviewed 12/18/19 @ 15:[address] Charles Good MD) Mother No problems noted. History Items: High Cholesterol, Heart Disease, Hypertension, Stroke, - - Patient's mother in her 40s from a cerebrovascular accident. Paternal Family History: Family History (Last Reviewed 12/18/19 @ 15:[address] Charles Good MD) Mother No problems noted. History Items: High Cholesterol, Heart Disease, Hypertension, - - Patient's father in his 40s from myocardial infarction. Lives: Spouse/ Significant Other Smoking Status: Former smoker Tobacco Use: Non-smoker Alcohol: None Drugs: None Review of Systems - Review of Systems General: Denies: Fever, Night Sweats, Fatigue HEENT: Denies: Vision Change Cardiovascular: Reports: Shortness of Breath, Shortness of Breath at Rest, Shor tness of Breath with Exertion, Orthopnea, PND. Denies: Chest Discomfort, Peripheral Edema, Palpitations, Lightheadedness, Dizziness, Near Syncope, Syncope Respiratory: Reports: Cough. Denies: Sputum Production, Hemoptysis Gastrointestinal: Denies: Hematemesis, Hematochezia, Melena Genitourinary: Denies: Dysuria, Hematuria Muscoloskeletal: Denies: Myalgias Skin: Denies: Rash Neurological: Denies: Dizziness Psychiatric: Denies: Anxiety Endocrine: Denies: Heat Intolerance Objective: Vital Signs Temp Pulse Resp BP Pulse Ox 97.7 F L 95 16 151/81 H 95 04/17/20 12:00 04/17/20 14:00 04/17/20 14:00 04/17/20 14:00 04/17/20 14:00 Oxygen Flow Rate (L/min) 2 Oxygen Delivery Method Nasal Cannula Weight: 168 lb 3.403 oz Body Mass Index (BMI) 34.0 Intake and Output for Last 24 Hours 04/15/20 04/16/20 04/17/20 23:59 23:59 23:59 Intake Total 193.05 / 193.05 Output Total 800 / 800 Balance -606.95 / -606.95 04/17/20 01:30: WBC 12.3 H, RBC 4.00 L, Hgb 10.3 L, Hct 34.1 L, MCV 85.3, MCH 25.8 L, MCHC 30.2 L, Plt Count 450, MPV 8.5, Immature Gran % (Auto) 0.300, Neut % (Auto) 83.3 H, Lymph % (Auto) 8.0 L, [place] % (Auto) 6.3, Eos % (Auto) 1.7, Baso % (Auto) 0.4, Absolute Neuts (auto) 10.3 H, Nucleated RBC % 0 04/17/20 01:30: D-Dimer Quant (PE/DVT) 3.27 H* 04/17/20 01:30: Sodium 138, Potassium 3.5, Chloride 103, Carbon Dioxide 28.0, Anion Gap 7, BUN 22 H, Creatinine 1.61 H, Est GFR (MDRD) Af Amer 41 L, Est GFR (MDRD) Non-Af 34 L, BUN/Creatinine Ratio 13.7, Glucose 122 H, Calcium 9.0, Troponin I 0.043 04/17/20 01:30: B-Natriuretic Peptide > 5000.0 H 04/17/20 01:30: PT 14.8, INR 1.2, APTT 31.9 04/17/20 01:30: Sodium 138, Potassium 3.5, Chloride 100, Carbon Dioxide 28.0, Anion Gap 10, BUN 23 H, Creatinine 1.60 H, Est GFR (MDRD) Af Amer 42 L, Est GFR (MDRD) Non-Af 34 L, BUN/Creatinine Ratio 14.4, Glucose 119 H, Calcium 8.8, Magnesium 2.2, Total Bilirubin 0.50, Troponin I 0.036 04/17/20 01:50: Lactic Acid 0.8 04/17/20 02:23: pH 7.44, Bicarbonate Actual 27.7 H, Base Excess 4 H, O2 Saturation 95, ABG pCO2 40.6, ABG pO2 75, Mark Test Positive 04/17/20 02:32: Urine Color Yellow, Urine Clarity Clear, Urine pH 7.0, Ur Specific [place] 1.015, Urine Protein 100 H, Urine Glucose (UA) Normal, Urine Ketones Negative, Urine Occult Blood 25 H, Urine Nitrite Positive H, Urine Bilirubin Negative, Urine Urobilinogen Normal, Ur Leukocyte Esterase 500 H, Urine RBC 0-5 SEEN, Urine WBC 10-25 SEEN 04/17/20 07:08: WBC 10.0, RBC 3.46 L, Hgb 8.7 L, Hct 29.8 L, MCV 86.1, MCH 25.1 L, MCHC 29.2 L, Plt Count 402, MPV 8.8, Immature Gran % (Auto) 0.600, Neut % (Auto) 80.1 H, Lymph % (Auto) 11.1 L, [place] % (Auto) 6.4, Eos % (Auto) 1.3, Baso % (Auto) 0.5, Absolute Neuts (auto) 8.0 H, Nucleated RBC % 0 04/17/20 07:08: Troponin I 0.040 04/17/20 10:10: Troponin I 0.052 H 04/17/20 10:10: APTT > 250.0 H* 04/17/20 10:10: Glucose 116 H Rhythm: EKG: Normal sinus rhythm with no acute changes ECHO: Stress Test: Cardiac Cath: PCI: CT Surgery: Holter monitor: EPS: PPM: CXR: Chest CT Scan: Assessment/Plan 1. Acute on chronic combined systolic and diastolic CHF (congestive heart failure) I50.42 She does have evidence of combined congestive heart failure. The above is likel y secondary to have valvular heart disease. Thus far it has been difficult to have her transferred to a facility which is willing to perform mitral valve surgery on her. Unfortunately in this current area with COVID-19 needs to be difficult to achieve this. I would therefore like us to continue with the diuretics with intravenous Lasix and eventually switching to oral Lasix * Continue spironolactone * May consider switching to Entresto * Continue beta-saurabh 2. Nonrheumatic mitral (valve) insufficiency I34.0 Plan She does have evidence of mitral regurgitation which appears to be moderate to severe. There is abnormal coaptation. Ideally she should be referred for mitral valve surgery but it is not clear whether she is really a candidate for the above. In addition the current pandemic precludes elective surgery for the above. We will see how she does with diuretic management and then make some recommendations. 3. Essential (primary) hypertension I10 Plan She does have a history of hypertension. Her blood pressure appears to be well controlled at this time. I would not recommend that we make any changes with regard to the above. 4. History of coronary artery stent placement Z95.5 PCI-JAZIEL-LAD w/ 2.0 x 30 mm and 2.5 x 34 mm Resolute Issa and PCI-JAZIEL-Mid LCx w/ Resolute Blackstone 2.0 x 30 mm and 2.0 x 22 mm Stent 05/18/2018 * I do not see any evidence of ischemia at this particular time. We will continue with her current medical therapy with no acute changes. * I think we can discontinue the heparin use and put her on daily Lovenox. * Thank you for allowing me to participate in the care of your patient. Please don't hesitate to call if any issues arise.
--- NOTE | 2020-04-17 15:08 | CASEMGMT ---
Addendum entered by Mendy Marrero 04/17/20 15:55: JAX spoke with SW at [facility] who confirms pt had oxygen set up through [address] and home health PT/OT/RN through [facility]. IBETH Sanchez Original Note: Social Work SW met with pt and completed assessment. Pt has had multiple hospital stays and prison stays over the last two years. Most recently pt was at [facility] and was discharged yesterday 04/16/20. Pt was only home a short time and then came to the hospital. Pt stating she requested discharge from [facility] and was sent home with oxygen through [address] and home health but pt does not know what company was contacted. VM left with SW at [facility] for discharge information. Pt states she lives at home with her and son Nam both who do not work and are able to assist with care. Pt states that she is not able to walk and only stands for a short time. Per pt, her or son can assist with transfers and dressing, but she is uncertain if the will assist with bathing. Pt has a wheelchair, walker and bedside commode. SW discussed with pt discharge plan and pt states she does not want to go back to a prison and is planning to return home at this time. With pt permission, phone call placed to pt and discussed discharge plans. is agreeable to pt return home and confirms that he is able to provided assistance with ADLs and IADLs. Per , pt dgt transported her home from SNF and would be able to bring pt home from the hospital. Pt did not know which company home health was arranged through. JAX did speak with pt about advance directives and pt refusing to complete these documents at this time. JAX informed pt that SW could assist in completing while here if pt desires. Plan: Home with continuation on home health services. IBETH Sanchez
--- NOTE | 2020-04-17 15:47 | CASEMGMT ---
Readmission chart review: Pt was initially admitted 03/18-03/24/2020 for Abn kidney fxn, YULISA on CKD, CHF and was discharged back to [facility] at that time after P2P review and approval for pt to go back to SNF. Pt states asked to be discharged from [facility] yesterday and then was readmitted here today for Acute resp failure, CHF, sepsis, UTI. Per pt, she was sent home with O2 and HHC set up. See SW note placed earlier today for plan and CM to follow for any further discharge plans/needs. SStzeina RN CM
[2020-04-17 17:10] LABS: Bedside Glucose 128 mg/dL (70-110)
[2020-04-17] MEDS: 0.9% Saline Lock 10 ML Syringe IV (17:31)
[2020-04-17 20:25] LABS: Partial Thromboplast Time 76.4 Seconds (24.1-36.2)
--- NOTE | 2020-04-17 20:48 | NURSING ---
1999: PTT RESULT OF 76.4 NOTED. NO CHANGES REQUIRED AT THIS TIME. PTT ORDERED IN 6 HOURS/ 0. HEPARIN GTT INFUSING AT 800 UNITS/HR.
[2020-04-17] MEDS: Atorvastatin Calcium 80 MG Tablet PO (20:56)
[2020-04-17] MEDS: MELATONIN 10 MG TABLET PO (22:14)
[2020-04-17 22:31] LABS: Bedside Glucose 128 mg/dL (70-110)
[2020-04-18] VITALS (16 sets, daily range): BP systolic 142–153; BP diastolic 64–85; PULSE 70–97; RESP 16–20; TEMP 36.5–37.1; O2SAT 94–97
--- NOTE | 2020-04-18 00:30 | CPS ---
pt did not want to wear bipap tonight- pt states doesnt need
[2020-04-18 03:52] LABS: Partial Thromboplast Time 62.7 Seconds (24.1-36.2)
[2020-04-18] MEDS: oxyCODONE 5 MG Tablet PO ×5 (03:53→20:53)
--- NOTE | 2020-04-18 04:40 | NURSING ---
0855: PTT result noted at 62.7. no adjustments made at this time per heparin protocol. next ptt due at 0855
[2020-04-18] MEDS: busPIRone 5 MG Tablet 20 MG PO ×3 (06:47→20:54)
[2020-04-18 07:15] LABS: Bedside Glucose 99 mg/dL (70-110)
[2020-04-18] MEDS: Ipratropium/Albuterol Sulfate 3 ML AMPUL.NEB INHALATION ×3 (07:19→19:06)
--- NOTE | 2020-04-18 07:46 | PN_ITS ---
Reason for Visit: Follow-up for acute hypoxic respiratory failure secondary to acute on chronic systolic and diastolic heart failure Objective: Seen and examined Patient on 2 L of oxygen. Still feels short of breath Physical exam: General: Alert, Oriented x3, Cooperative. HEENT: Atraumatic, PERRLA, EOMI, Normocephalic Oral: No Gingival or Mucosal Lesions/ Ulcerations Neck: Supple, No JVD, Negative Carotid Bruits Lungs: Air entry severely diminished in bilateral lungs. Bilateral coarse rhonchi present. On BiPAP Cardiovascular: Regular rate, Regular Rhythm, Normal S1, Normal S2, pansystolic murmur present over mitral area. Abdomen: Bowel Sounds Present, Soft, Non Tender, Non-Distended : No renal angle tenderness. No suprapubic tenderness. Extremities: Bilateral lower extremity edema up to thigh level, Capillary Refill Less than 3 Seconds Skin: No rashes, No breakdown Musculoskeletal: No Tenderness to Palpation of Joints or Extremities Neurological: Cranial nerves II-XII grossly intact, Deep Tendon Reflexes 2+/4 and Symmetrical, Neuro grossly intact Psych/Mental Status: Anxious personality 1 Vitals/I&O's: Vital Signs Temp Pulse Resp BP Pulse Ox 98.8 F 80 18 148/71 H 94 04/18/20 03:00 04/18/20 04:00 04/18/20 03:00 04/18/20 03:00 04/18/20 04:00 Oxygen Flow Rate (L/min) 2 Oxygen Delivery Method Nasal Cannula Weight: 168 lb 3.403 oz Body Mass Index (BMI) 34.0 Intake and Output for Last 24 Hours 04/16/20 04/17/20 04/18/20 23:59 23:59 23:59 Intake Total 363.05 / 513.05 250 / 250 Output Total 1000 / 1350 650 / 650 Balance -636.95 / -836.95 -400 / -400 Laboratory Results 04/17/20 07:08: Troponin I 0.040 04/17/20 10:10: Troponin I 0.052 H 04/17/20 10:10: APTT > 250.0 H* 04/17/20 10:10: Glucose 116 H 04/17/20 16:03: POC Glucose 128 H 04/17/20 20:00: APTT 76.4 H 04/17/20 22:17: POC Glucose 128 H 04/18/20 02:55: APTT 62.7 H 04/18/20 06:55: POC Glucose 99 Current Medications Acetaminophen (Acetaminophen 325 Mg Tablet) 650 mg PO Q6H PRN PRN PRN Reason: Pain Score 1-10/Temp > 100.7 F Last Admin: 04/17/20 12:51 Dose: 650 mg Documented by: Al Hydroxide/Mg Hydroxide (Mag Hydrox/Al Hydrox/Simeth 30 Ml Udc) 30 ml PO Q6H PRN PRN PRN Reason: Gastric Burning Albuterol Sulfate (Albuterol 2.5 Mg/3 Ml Vial.Neb.) 2.5 mg INHALATION Q2H PRN PRN PRN Reason: Dyspnea, wheezing Albuterol/Ipratropium (Ipratropium/Albuterol Sulfate 3 Ml Ampul.Neb) 3 ml INHALATION Q6HWA.RT PENDING SALE TO [facility] Last Admin: 04/18/20 07:19 Dose: 3 ml Documented by: Aspirin (Aspirin 81 Mg Tab.Chew) 81 mg PO DAILY@0800 PENDING SALE TO [facility] Last Admin: 04/17/20 09:10 Dose: 81 mg Documented by: Atorvastatin Calcium (Atorvastatin Calcium 80 Mg Tablet) 80 mg PO QHS PENDING SALE TO [facility] Last Admin: 04/17/20 20:56 Dose: 80 mg Documented by: Bisacodyl (Bisacodyl 10 Mg Suppository) 10 mg RECTAL DAILY PRN PRN PRN Reason: CONSTIPATION Buspirone HCl (Buspirone 5 Mg Tablet) 20 mg PO TID PENDING SALE TO [facility] Last Admin: 04/18/20 06:47 Dose: 20 mg Documented by: Cholecalciferol (Cholecalciferol (Vit D3) 1,000 Unit (25mcg)) 2,000 unit PO DAILY PENDING SALE TO [facility] Clopidogrel Bisulfate (Clopidogrel Bisulfate 75 Mg Tablet) 75 mg PO DAILY PENDING SALE TO [facility] Last Admin: 04/17/20 09:09 Dose: 75 mg Documented by: Ferrous Sulfate ([facility]ous Sulfate 325 Mg Tablet) [facility] Last Admin: 04/17/20 09:10 Dose: 325 mg Documented by: Furosemide (Furosemide 100 Mg/10 Ml Vial) 80 mg IV BID@1000,1800 PENDING SALE TO [facility] Last Admin: 04/17/20 17:31 Dose: 80 mg Documented by: Gabapentin (Gabapentin 100 Mg Capsule) 100 mg PO QHS PENDING SALE TO [facility] Last Admin: 04/17/20 20:57 Dose: Not Given Documented by: Guaifenesin (Guaifenesin 10 Ml Udc (200mg/10ml)) 10 ml PO Q4H PRN PRN PRN Reason: COUGH Heparin Sodium (Porcine) (Heparin Injection (Vial) 5,000 Unit/Ml Vial) 0 unit IV UD PRN; Protocol PRN Reason: dose adjustment Hydralazine HCl (Hydralazine 20 Mg/Ml Vial) 10 mg IV Q4H PRN PRN PRN Reason: SBP > 160 Heparin Sodium/Dextrose () 25,000 units in 250 mls @ 11 mls/hr IV .[id number] PENDING SALE TO [facility]; Protocol Last Titration: 04/17/20 14:00 Dose: 800 units/hr, 8 mls/hr Documented by: Sodium Chloride () 250 mls @ 15 mls/hr IV .[id number] PRN PRN Reason: Saline Flush Ceftriaxone Sodium 2 gm/ (Sodium Chloride) 50 mls @ 100 mls/hr IV Q24H PENDING SALE TO [facility] Last Infusion: 04/17/20 23:49 Dose: Infused Documented by: Insulin Glargine (Insulin Glargine 100 Units/Ml Pen) 10 units SC 1100,2200 PENDING SALE TO [facility] Last Admin: 04/17/20 22:20 Dose: 10 u Documented by: Insulin Human Lispro (Insulin Lispro 100 Unit/Ml Insuln.Pen) 0 unit SC ACHS PENDING SALE TO [facility]; Protocol Last Admin: 04/18/20 06:55 Dose: Not Given Documented by: Loratadine (Loratadine 10 Mg Tablet) 10 mg PO DAILY PRN PRN PRN Reason: ALLERGIES Magnesium Hydroxide (Magnesium Hydroxide 30 Ml Udc) 30 ml PO DAILY PRN PRN PRN Reason: Constipation Melatonin (Melatonin 10 Mg Tablet) 10 mg PO QHS PRN PRN Reason: SLEEP Last Admin: 04/17/20 22:14 Dose: 10 mg Documented by: Metoprolol Succinate (Metoprolol(Xl)Succ 25 Mg Tablet) 25 mg PO DAILY PENDING SALE TO [facility] Last Admin: 04/17/20 09:08 Dose: 25 mg Documented by: Morphine Sulfate (Morphine 2 Mg/Ml Syringe) 1 - 2 mg IV Q4H PRN PRN PRN Reason: Pain Score 6-10 Ondansetron HCl (Ondansetron 4 Mg/2 Ml Vial) 4 mg IV Q8H PRN PRN PRN Reason: NAUSEA/VOMITING Oxycodone HCl (Oxycodone 5 Mg Tablet) 5 mg PO Q4H PRN PRN PRN Reason: Pain Score 4-5 Last Admin: 04/18/20 03:53 Dose: 5 mg Documented by: Pantoprazole Sodium (Pantoprazole Sodium 40 Mg Tablet) 40 mg PO DAILY PENDING SALE TO [facility] Last Admin: 04/17/20 09:10 Dose: 40 mg Documented by: Polyethylene Glycol (Polyethylene Glycol 3350 17 Gm Packet) 17 gm PO DAILY PENDING SALE TO [facility] Prochlorperazine Edisylate (Prochlorperazine 10 Mg/2 Ml Vial) 5 mg IV Q4H PRN PRN PRN Reason: Breakthrough Nausea/Vomiting Psyllium Hydrophilic Mucilloid (Psyllium 1 Packet) 1 packet PO DAILY PRN PRN PRN Reason: Constipation Senna/Docusate Sodium (Senna/Docusate Sodium 1 Tablet) 2 tablet PO BID PRN PRN PRN Reason: Constipation Sodium Chloride (0.9% Saline Lock 10 Ml Syringe) 10 - 40 ml IV UD PRN PRN Reason: SALINE FLUSH Last Admin: 04/17/20 17:31 Dose: 10 ml Documented by: Spironolactone (Spironolactone 25 Mg Tablet) 12.5 mg PO DAILY PENDING SALE TO [facility] Last Admin: 04/17/20 09:10 Dose: 12.5 mg Documented by: Throat Lozenges (Benzocaine/Menthol 1 Lozenge) 1 lozenge MUCOUS MEM Q2H PRN PRN PRN Reason: SORE THROAT Triamcinolone Acetonide (Triamcinolone 0.5% Cream) 1 applic TOPICAL BID PRN PRN PRN Reason: ITCHING STROKE Vital Signs/Narrative: Vital Signs Pulse Pulse Ox 04/18/20 04:00 80 94 Medical Necessity - Tobacco Use Smoking Status: Former smoker Tobacco Use: Non-smoker Assessment/Plan All Active Problems (Last Reviewed 01/21/20 @ 10:[address] Jacob Byrd MD) Hypoxia (Acute) Congestive heart failure (Acute) Hyperkalemia (Acute) Dyspnea on exertion (Acute) Orthopnea (Acute) Acute exacerbation of CHF (congestive heart failure) (Resolved) Acute on chronic combined systolic (congestive) and diastolic (congestive) heart failure (Resolved) Acute respiratory failure with hypoxia (Resolved) CHF exacerbation (Resolved) COPD exacerbation (Resolved) COPD exacerbation (Resolved) Chronic ulcer of buttock (Resolved) Flash pulmonary edema (Resolved) Patient is 64-year-old female with multiple comorbidities including c oronary artery status post LAD PCI, mid circumflex on 07/12/2019 admitted with acute hypoxic respiratory failure secondary to acute on chronic combined systolic and diastolic heart failure.The patient was recently admitted at the end of February for 1 week for decompensated heart failure with similar symptoms. 1. Acute Hypoxic Respiratory Failure secondary to Acute on Chronic Chronic combined Systolic/Diastolic CHF and history of COPD: Patient tachycardic and tachypneic. WBC elevated 12,000. D-dimer 3.27. Creatinine 1.6. BNP elevated 5000. Troponin negative. On IV Lasix. 04/18: Her oxygen requirement has come down. He still has significant lower extremity edema and continue IV Lasix. Discussed with Dr. Good regarding severe MR which required surgery but with Covid pandemic, tertiary care feasibility elective surgery for For MR is difficult and hard to find an accepting facility. Mild hypokalemia K3.0. Potassium replaced. Repeat magnesium and phosphorus are normal level. 2D echo on 03/19 reported as EF 25 to 30%, stage II diastolic dysfunction, severe hypokinesis of LV, LA moderately enlarged, RVSP 55 mmHg, severe 4+ eccentric MR, severe 4+ TR 2. Acute lower urinary Tract Infection/cystitis: UA shows 3+ urine bacteria, positive nitrite and LE. Empirically on IV Rocephin. 04/18: Blood culture negative for more than 48 hours. Urine culture shows mixed organism more than 100,000 colonies 1 gram-negative arturo and other not identified suggestive of colonization. Continue antibiotic until final culture is reported 3. CKD stage III: Admission BUN/Cr 22/1.61, prior baseline creatinine noted to be 1.5-1.7. Monitor electrolytes, intake and output, weight as patient is on Lasix for heart failure admission above 04/18: BUN/creatinine 23/1.56 on baseline. No change. 4. Chronic normocytic anemia: Admission hemoglobin 10.3, baseline appears 8-9, stable, trend. 04/18: H&H stable 9.4/31.8. 5. Diabetes mellitus type II: 03/19/2020 hemoglobin A1c 7%, on Accu-Cheks and sliding scale insulin 04/18: Glucose is controlled. 6. Anxiety and depression: continue patient home BuSpar and sertraline regimen. 7. Carotid disease: Status post right CEA, left 70 to 80% stenosis: Continue aspirin, Plavix and statin. 8. Hypertension: continue metoprolol, lisinopril and spironolactone, PRN IV hydralazine. 9. Hyperlipidemia: Continue statin therapy. Other comorbidities include obesity, former tobacco use, CVA history. DVT prophylaxis: SCDs, heparin drip pending BL LE duplex US. Microbiology Past 72 Hours 04/17/20 02:32 Urine Catheter - Catheter Urine Culture - Preliminary Gram negative arturo Mixed Culture Laboratory Results 04/17/20 16:03: POC Glucose 128 H 04/17/20 20:00: APTT 76.4 H 04/17/20 22:17: POC Glucose 128 H 04/18/20 02:55: APTT 62.7 H 04/18/20 06:55: POC Glucose 99 04/18/20 09:30: APTT 38.3 H 04/18/20 09:30: WBC 11.0, RBC 3.68 L, Hgb 9.4 L, Hct 31.8 L, MCV 86.4, MCH 25.5 L, MCHC 29.6 L, RDW Std Deviation 62.2 H, RDW Coeff of Jade 19.6 H, Plt Count 457 H, MPV 9.1, Immature Gran % (Auto) 0.500, Neut % (Auto) 76.3 H, Lymph % (Auto) 9.0 L, [place] % (Auto) 8.0, Eos % (Auto) 5.7 H, Baso % (Auto) 0.5, Absolute Neuts (auto) 8.4 H, Absolute Lymphs (auto) 0.99, Nucleated RBC % 0 04/18/20 09:30: Sodium 140, Potassium 3.0 L, Chloride 102, Carbon Dioxide 31.0, Anion Gap 7, BUN 23 H, Creatinine 1.56 H, Estim Creat Clear Calc 43.60, Est GFR (MDRD) Af Amer 43 L, Est GFR (MDRD) Non-Af 36 L, BUN/Creatinine Ratio 14.7, Glucose 109 H, Calcium 8.8 04/18/20 09:30: Phosphorus 3.5, Magnesium 2.1 04/18/20 11:42: POC Glucose 112 H Inpatient E&M: 35914 Subs Hosp L2
[2020-04-18] MEDS: Polyethylene Glycol 3350 17 GM PACKET PO (08:20)
[2020-04-18] MEDS: Metoprolol(XL)Succ 25 MG Tablet PO ×2 (08:20→11:45)
[2020-04-18] MEDS: Clopidogrel Bisulfate 75 MG Tablet PO (08:20)
[2020-04-18] MEDS: Furosemide 100 MG/10 ML Vial 80 MG IV ×2 (08:20→16:28)
[2020-04-18] MEDS: Aspirin 81 MG TAB.CHEW PO (08:21)
[2020-04-18] MEDS: Ferrous Sulfate 325 MG Tablet PO (08:21)
[2020-04-18] MEDS: Spironolactone 25 MG Tablet 12.5 MG PO (08:21)
[2020-04-18] MEDS: HEPARIN/D5w 25,000 UNITS 25,000 UNITS/250 ML IV.SOLN. 8 UNITS IV (08:33)
[2020-04-18 10:06] LABS: Partial Thromboplast Time 38.3 Seconds (24.1-36.2)
--- NOTE | 2020-04-18 10:13 | PN.CARD_ITS ---
Subjectve: Patient seen and evaluated. Appears to be doing better. She is amenable to surgery now. Objective: Vital Signs Temp Pulse Resp BP Pulse Ox 98.7 F 96 18 153/74 H 96 04/18/20 08:11 04/18/20 08:20 04/18/20 08:11 04/18/20 08:20 04/18/20 08:11 Oxygen Flow Rate (L/min) 2 Oxygen Delivery Method Nasal Cannula Weight: 167 lb 1.766 oz Body Mass Index (BMI) 34.0 Intake and Output for Last 24 Hours 04/16/20 04/17/20 04/18/20 23:59 23:59 23:59 Intake Total 363.05 / 513.05 398 / 398 Output Total 1000 / 1350 650 / 650 Balance -636.95 / -836.95 -252 / -252 General: Awake, Alert, Oriented x 3 HEENT: PERRL, EOMI, Sclera Non Icteric Neck: Supple, Good ROM, No Lymph Node Enlargement Lungs: Diminished Shahab Bases Cardiovascular: Regular Rhythm, Normal S1, Normal S2, No Rubs, No Gallops Murmur Murmur: Grade 3/6, Holosystolic, [place] Vascular: No Carotid Bruits, Normal Femoral Pulses, Normal Radial Pulses, Normal Dorsalis Pedal Pulse, Normal Posterior Tibial Pulses Abdomen: Bowel Sounds Present, Soft, Non Tender, No HSM, No Organomegaly Extremities: No Cyanosis, No Clubbing, No edema Neurological: No Focal Motor or Sensory Deficit 04/17/20 10:10: Troponin I 0.052 H 04/17/20 10:10: APTT > 250.0 H* 04/17/20 10:10: Glucose 116 H 04/17/20 20:00: APTT 76.4 H 04/18/20 02:55: APTT 62.7 H 04/18/20 09:30: APTT 38.3 H Rhythm: EKG: ECHO: Stress Test: Cardiac Cath: PCI: CT Surgery: Holter monitor: EPS: PPM: CXR: Chest CT Scan: Medical Necessity - Tobacco Use Smoking Status: Former smoker Tobacco Use: Non-smoker Assessment/Plan 1. Acute on chronic combined systolic and diastolic CHF (congestive heart failure) I50.42 She does have evidence of combined congestive heart failure. The above is likely secondary to have valvular heart disease. Thus far it has been difficult to have her transferred to a facility which is willing to perform mitral valve surgery on her. Unfortunately in this current area with COVID-19 needs to be difficult to achieve this. She is agreeable to having surgery now however. I would therefore like us to continue with the diuretics with intravenous Lasix and eventually switching to oral Lasix * Continue spironolactone * May consider switching to Entresto * Continue beta-saurabh 2. Nonrheumatic mitral (valve) insufficiency I34.0 Plan She does have evidence of mitral regurgitation which appears to be moderate to severe. There is abnormal coaptation. Ideally she should be referred for mitral valve surgery but it is not clear whether she is really a candidate for the above. In addition the current pandemic precludes elective surgery for the above. We will see how she does with diuretic management and then make some recommendations. 3. Essential (primary) hypertension I10 Plan She does have a history of hypertension. Her blood pressure appears to be well controlled at this time. I would not recommend that we make any changes with regard to the above. 4. History of coronary artery stent placement Z95.5 PCI-JAZIEL-LAD w/ 2.0 x 30 mm and 2.5 x 34 mm Resolute [place] and PCI-JAZIEL-Mid LCx w/ Resolute [place] 2.0 x 30 mm and 2.0 x 22 mm Stent 05/18/2018 * I do not see any evidence of ischemia at this particular time. We will continue with her current medical therapy with no acute changes. * I think we can discontinue the heparin use and put her on daily Lovenox. * Thank you for allowing me to participate in the care of your patient. Please don't hesitate to call if any issues arise.
[2020-04-18 11:53] LABS: Absolute Lymphocyte Count 0.99 X10^3/uL (0.83-4.51); Absolute Neutrophil Count 8.4 X10^3/uL (2.0-7.7); Basophil# 0.06 X10^3/uL; Basophil% 0.5 % (0-1); Eosinophil# 0.63 X10^3/uL; Eosinophils% 5.7 % (0-5); Hematocrit 31.8 % (37-47); Hemoglobin 9.4 g/dL (12.0-15.0); Lymphocyte # 0.99 X10^3/ul (4.0); Mean Corp Hgb Conc 29.6 g/dL (32-36); Mean Corpuscular Hgb 25.5 pg (27.0-32.0); Mean Corpuscular Volume 86.4 fL (81-99); Mean Platelet Vol. 9.1 fl (6.2-12.0); Monocyte# 0.88 X10^3/uL; NRBC Flagged by Analyzer 0 % (0-5); Neutrophil # 8.35 X10^3/uL (2.7-7.7); Neutrophil % 76.3 % (47-70); Platelet Count 457 K/mm3 (150-450); RBC Distribution Width CV 19.6 % (11.6-14.6); RBC Distribution Width SD 62.2 fl (35.1-43.9); Red Blood Count 3.68 M/mm3 (4.2-5.4)
[2020-04-18 11:58] LABS: Anion Gap 7 (5-15); BUN 23 mg/dL (7-18); BUN/Creat Ratio 14.7 RATIO (10-20); Calcium,Total 8.8 mg/dL (8.5-10.1); Chloride 102 mmol/L (98-107); Creatinine, Serum 1.56 mg/dL (0.55-1.02); EST Glomerular Filtration Rate 36 mL/min (>60); Est Glom Filt Rate - Afr Amer 43 mL/min (>60); Glucose 109 mg/dL (74-106); Sodium Level 140 mmol/L (136-145)
[2020-04-18 12:45] LABS: Bedside Glucose 112 mg/dL (70-110)
[2020-04-18 12:50] LABS: Magnesium 2.1 mg/dL (1.6-2.6); Phosphorus 3.5 mg/dL (2.5-4.9)
[2020-04-18] MEDS: Enoxaparin 80 MG/0.8 ML Syringe 70 MG SC ×2 (14:38→21:05)
[2020-04-18 17:10] LABS: Bedside Glucose 135 mg/dL (70-110)
[2020-04-18] MEDS: Atorvastatin Calcium 80 MG Tablet PO (20:55)
[2020-04-18 21:25] LABS: Bedside Glucose 106 mg/dL (70-110)
[2020-04-19] VITALS (12 sets, daily range): BP systolic 131–148; BP diastolic 59–83; PULSE 81–100; RESP 16–20; TEMP 36.5–37; O2SAT 95–97
[2020-04-19] MEDS: oxyCODONE 5 MG Tablet PO ×5 (01:48→19:23)
[2020-04-19 06:04] LABS: Absolute Lymphocyte Count 1.19 X10^3/uL (0.83-4.51); Absolute Neutrophil Count 7.5 X10^3/uL (2.0-7.7); Basophil# 0.06 X10^3/uL; Basophil% 0.6 % (0-1); Eosinophil# 0.77 X10^3/uL; Eosinophils% 7.2 % (0-5); Hemoglobin 9.2 g/dL (12.0-15.0); Lymphocyte # 1.19 X10^3/ul (4.0); Lymphocyte % 11.1 % (19-41); Mean Corp Hgb Conc 29.7 g/dL (32-36); Mean Corpuscular Hgb 25.4 pg (27.0-32.0); Mean Corpuscular Volume 85.6 fL (81-99); Mean Platelet Vol. 8.9 fl (6.2-12.0); Monocyte# 1.19 X10^3/uL; Monocyte% 11.1 % (0-10); NRBC Flagged by Analyzer 0 % (0-5); Neutrophil # 7.46 X10^3/uL (2.7-7.7); Neutrophil % 69.5 % (47-70); Platelet Count 436 K/mm3 (150-450); RBC Distribution Width CV 19.8 % (11.6-14.6); RBC Distribution Width SD 61.1 fl (35.1-43.9); Red Blood Count 3.62 M/mm3 (4.2-5.4); White Blood Count 10.7 K/mm3 (4.4-11.0)
[2020-04-19] MEDS: busPIRone 5 MG Tablet 20 MG PO ×3 (06:16→21:29)
[2020-04-19 06:29] LABS: Anion Gap 7 (5-15); BUN 23 mg/dL (7-18); Calcium,Total 8.7 mg/dL (8.5-10.1); Chloride 104 mmol/L (98-107); Creatinine, Serum 1.53 mg/dL (0.55-1.02); EST Glomerular Filtration Rate 36 mL/min (>60); Est Glom Filt Rate - Afr Amer 44 mL/min (>60); Estimated Creatinine Clearance 44.27 ml/min; Glucose 66 mg/dL (74-106); Potassium 3.7 mmol/L (3.5-5.1); Sodium Level 141 mmol/L (136-145)
[2020-04-19 06:40] LABS: Bedside Glucose 71 mg/dL (70-110)
[2020-04-19] MEDS: Ipratropium/Albuterol Sulfate 3 ML AMPUL.NEB INHALATION ×2 (06:48→19:10)
[2020-04-19 07:05] LABS: Bedside Glucose 83 mg/dL (70-110)
[2020-04-19] MEDS: Pantoprazole Sodium 40 MG Tablet PO (08:34)
[2020-04-19] MEDS: Ferrous Sulfate 325 MG Tablet PO (08:34)
[2020-04-19] MEDS: Aspirin 81 MG TAB.CHEW PO (08:34)
[2020-04-19] MEDS: Clopidogrel Bisulfate 75 MG Tablet PO (08:34)
--- NOTE | 2020-04-19 08:55 | PN.CARD_ITS ---
Subjectve: Patient seen and evaluated. Appears to be doing better. Having mild bloody nose. Objective: Vital Signs Temp Pulse Resp BP Pulse Ox 98.6 F 86 20 H 148/78 H 96 04/19/20 06:14 04/19/20 07:00 04/19/20 06:48 04/19/20 06:14 04/19/20 06:14 Oxygen Flow Rate (L/min) 2 Oxygen Delivery Method Nasal Cannula Weight: 166 lb 7.184 oz Body Mass Index (BMI) 34.0 Intake and Output for Last 24 Hours 04/17/20 04/18/20 04/19/20 23:59 23:59 23:59 Intake Total 363.05 / 513.05 1322.53 / 1322.53 150 / 150 Output Total 1000 / 1350 2250 / 2250 200 / 200 Balance -636.95 / -836.95 -927.47 / -927.47 -50 / -50 General: Awake, Alert, Oriented x 3 HEENT: PERRL, EOMI, Sclera Non Icteric Neck: Supple, Good ROM, No Lymph Node Enlargement Lungs: Clear to auscultation Cardiovascular: Regular Rhythm, Normal S1, Normal S2, No Murmurs, No Rubs, No Gallops 04/18/20 09:30: APTT 38.3 H 04/18/20 09:30: WBC 11.0, RBC 3.68 L, Hgb 9.4 L, Hct 31.8 L, MCV 86.4, MCH 25.5 L, MCHC 29.6 L, Plt Count 457 H, MPV 9.1, Immature Gran % (Auto) 0.500, Neut % (Auto) 76.3 H, Lymph % (Auto) 9.0 L, [place] % (Auto) 8.0, Eos % (Auto) 5.7 H, Baso % (Auto) 0.5, Absolute Neuts (auto) 8.4 H, Nucleated RBC % 0 04/18/20 09:30: Sodium 140, Potassium 3.0 L, Chloride 102, Carbon Dioxide 31.0, Anion Gap 7, BUN 23 H, Creatinine 1.56 H, Est GFR (MDRD) Af Amer 43 L, Est GFR (MDRD) Non-Af 36 L, BUN/Creatinine Ratio 14.7, Glucose 109 H, Calcium 8.8 04/18/20 09:30: Phosphorus 3.5, Magnesium 2.1 04/19/20 05:40: WBC 10.7, RBC 3.62 L, Hgb 9.2 L, Hct 31.0 L, MCV 85.6, MCH 25.4 L, MCHC 29.7 L, Plt Count 436, MPV 8.9, Immature Gran % (Auto) 0.500, Neut % (Auto) 69.5, Lymph % (Auto) 11.1 L, [place] % (Auto) 11.1 H, Eos % (Auto) 7.2 H, Baso % (Auto) 0.6, Absolute Neuts (auto) 7.5, Nucleated RBC % 0 04/19/20 05:40: Sodium 141, Potassium 3.7, Chloride 104, Carbon Dioxide 30.0, Anion Gap 7, BUN 23 H, Creatinine 1.53 H, Est GFR (MDRD) Af Amer 44 L, Est GFR (MDRD) Non-Af 36 L, BUN/Creatinine Ratio 15.0, Glucose 66 L, Calcium 8.7 Rhythm: EKG: ECHO: Stress Test: Cardiac Cath: PCI: CT Surgery: Holter monitor: EPS: PPM: CXR: Chest CT Scan: Medical Necessity - Tobacco Use Smoking Status: Former smoker Tobacco Use: Non-smoker Assessment/Plan 1. Acute on chronic combined systolic and diastolic CHF (congestive heart failure) I50.42 She does have evidence of combined congestive heart failure. The above is likely secondary to have valvular heart disease. Thus far it has been difficult to have her transferred to a facility which is willing to perform mitral valve surgery on her. Unfortunately in this current area with COVID-19 needs to be difficult to achieve this. She is agreeable to having surgery now however. I would therefore like us to continue with the diuretics with intravenous Lasix and eventually switching to oral Lasix * Continue spironolactone * May consider switching to Entresto * Continue beta-saurabh 2. Nonrheumatic mitral (valve) insufficiency I34.0 Plan She does have evidence of mitral regurgitation which appears to be moderate to severe. There is abnormal coaptation. Ideally she should be referred for mitral valve surgery but it is not clear whether she is really a candidate for the above. In addition the current pandemic precludes elective surgery for the above. We will see how she does with diuretic management and then make some recommendations. 3. Essential (primary) hypertension I10 Plan She does have a history of hypertension. Her blood pressure appears to be well controlled at this time. I would not recommend that we make any changes with regard to the above. 4. History of coronary artery stent placement Z95.5 PCI-JAZIEL-LAD w/ 2.0 x 30 mm and 2.5 x 34 mm Resolute [place] and PCI-JAZIEL-Mid LCx w/ Resolute [place] 2.0 x 30 mm and 2.0 x 22 mm Stent 05/18/2018 * I do not see any evidence of ischemia at this particular time. We will continue with her current medical therapy with no acute changes. * I think we can discontinue the heparin use and put her on daily Lovenox at the DVT prophylaxis dose only. * * * Thank you for allowing me to participate in the care of your patient. Please don't hesitate to call if any issues arise.
[2020-04-19] MEDS: Metoprolol(XL)Succ 50 MG Tablet PO (10:46)
[2020-04-19] MEDS: Spironolactone 25 MG Tablet 12.5 MG PO (10:47)
[2020-04-19] MEDS: Furosemide 100 MG/10 ML Vial 80 MG IV ×2 (10:47→17:03)
[2020-04-19] MEDS: 0.9% Saline Lock 10 ML Syringe IV ×3 (10:48→21:26)
[2020-04-19 12:35] LABS: Bedside Glucose 85 mg/dL (70-110)
--- NOTE | 2020-04-19 13:42 | PN_ITS ---
Reason for Visit: Follow-up for acute hypoxic respiratory failure secondary to acute on chronic systolic and diastolic heart failure. Objective: Patient looks into discomfort mainly due to posture in the bed. Bed remote is not working to change the position. Mild short of breath although pulse ox 97% on 2 L of oxygen. No fever Physical exam: General: Alert, Oriented x3, Cooperative. Very anxious and restless HEENT: Atraumatic, PERRLA, EOMI, Normocephalic Oral: No Gingival or Mucosal Lesions/ Ulcerations Neck: Supple, No JVD, Negative Carotid Bruits Lungs: Air entry severely diminished in bilateral lungs. Bilateral coarse rhonchi present. On BiPAP Cardiovascular: Regular rate, Regular Rhythm, Normal S1, Normal S2, pansystolic murmur present over mitral area. Abdomen: Bowel Sounds Present, Soft, Non Tender, Non-Distended : No renal angle tenderness. No suprapubic tenderness. Extremities: Bilateral lower extremity edema up to thigh level, Capillary Refill Less than 3 Seconds Skin: No rashes, No breakdown Musculoskeletal: No Tenderness to Palpation of Joints or Extremities Neurological: Cranial nerves II-XII grossly intact, Deep Tendon Reflexes 2+/4 and Symmetrical, Neuro grossly intact Psych/Mental Status: Anxious personality Vitals/I&O's: Vital Signs Temp Pulse Resp BP Pulse Ox 97.9 F 95 20 H 132/83 H 97 04/19/20 10:40 04/19/20 10:46 04/19/20 10:40 04/19/20 10:40 04/19/20 10:40 Oxygen Flow Rate (L/min) 2 Oxygen Delivery Method Nasal Cannula Weight: 166 lb 7.184 oz Body Mass Index (BMI) 34.0 Intake and Output for Last 24 Hours 04/17/20 04/18/20 04/19/20 23:59 23:59 23:59 Intake Total 363.05 / 513.05 1322.53 / 1322.53 150 / 150 Output Total 1000 / 1350 2250 / 2250 200 / 200 Balance -636.95 / -836.95 -927.47 / -927.47 -50 / -50 Microbiology Past 72 Hours 04/17/20 02:32 Urine Catheter - Catheter Urine Culture - Preliminary Proteus mirabilis GNR lactose boot and saddle repair person 04/17/20 02:20 Blood Culture (Wb) - Right Hand Blood Culture - Preliminary No growth in 48 hours. 04/17/20 02:15 Blood Culture (Wb) - Anticubital Left Blood Culture - Preliminary No growth in 48 hours. Laboratory Results 04/18/20 16:26: POC Glucose 135 H 04/18/20 20:51: POC Glucose 106 04/19/20 05:40: WBC 10.7, RBC 3.62 L, Hgb 9.2 L, Hct 31.0 L, MCV 85.6, MCH 25.4 L, MCHC 29.7 L, RDW Std Deviation 61.1 H, RDW Coeff of Jade 19.8 H, Plt Count 436, MPV 8.9, Immature Gran % (Auto) 0.500, Neut % (Auto) 69.5, Lymph % (Auto) 11.1 L, [place] % (Auto) 11.1 H, Eos % (Auto) 7.2 H, Baso % (Auto) 0.6, Absolute Neuts (auto) 7.5, Absolute Lymphs (auto) 1.19, Nucleated RBC % 0 04/19/20 05:40: Sodium 141, Potassium 3.7, Chloride 104, Carbon Dioxide 30.0, Anion Gap 7, BUN 23 H, Creatinine 1.53 H, Estim Creat Clear Calc 44.27, Est GFR (MDRD) Af Amer 44 L, Est GFR (MDRD) Non-Af 36 L, BUN/Creatinine Ratio 15.0, Glucose 66 L, Calcium 8.7 04/19/20 06:36: POC Glucose 71 04/19/20 06:58: POC Glucose 83 04/19/20 12:09: POC Glucose 85 Current Medications Acetaminophen (Acetaminophen 325 Mg Tablet) 650 mg PO Q6H PRN PRN PRN Reason: Pain Score 1-10/Temp > 100.7 F Last Admin: 04/17/20 12:51 Dose: 650 mg Documented by: Al Hydroxide/Mg Hydroxide (Mag Hydrox/Al Hydrox/Simeth 30 Ml Udc) 30 ml PO Q6H PRN PRN PRN Reason: Gastric Burning Albuterol Sulfate (Albuterol 2.5 Mg/3 Ml Vial.Neb.) 2.5 mg INHALATION Q2H PRN PRN PRN Reason: Dyspnea, wheezing Albuterol/Ipratropium (Ipratropium/Albuterol Sulfate 3 Ml Ampul.Neb) 3 ml INHALATION Q6HWA.RT [facility] Last Admin: 04/19/20 06:48 Dose: 3 ml Documented by: Aspirin (Aspirin 81 Mg Tab.Chew) 81 mg PO DAILY@0800 [facility] Last Admin: 04/19/20 08:34 Dose: 81 mg Documented by: Atorvastatin Calcium (Atorvastatin Calcium 80 Mg Tablet) 80 mg PO QHS [facility] Last Admin: 04/18/20 20:55 Dose: 80 mg Documented by: Bisacodyl (Bisacodyl 10 Mg Suppository) 10 mg RECTAL DAILY PRN PRN PRN Reason: CONSTIPATION Buspirone HCl (Buspirone 5 Mg Tablet) 20 mg PO TID [facility] Last Admin: 04/19/20 06:16 Dose: 20 mg Documented by: Cholecalciferol (Cholecalciferol (Vit D3) 1,000 Unit (25mcg)) 2,000 unit PO DAILY [facility] Last Admin: 04/19/20 08:34 Dose: 2,000 unit Documented by: Clopidogrel Bisulfate (Clopidogrel Bisulfate 75 Mg Tablet) 75 mg PO DAILY [facility] Last Admin: 04/19/20 08:34 Dose: 75 mg Documented by: Enoxaparin Sodium (Enoxaparin 40 Mg/0.4 Ml Syringe) 40 mg SC DAILY@0600 [facility] Ferrous Sulfate ([facility]ous S[facility] 325 Mg Tablet) [facility] Admin: 04/19/20 08:34 Dose: 325 mg Documented by: Furosemide (Furosemide 100 Mg/10 Ml Vial) 80 mg IV BID@1000,1800 [facility] Last Admin: 04/19/20 10:47 Dose: 80 mg Documented by: Gabapentin (Gabapentin 100 Mg Capsule) 100 mg PO QHS [facility] Last Admin: 04/18/20 21:27 Dose: Not Given Documented by: Guaifenesin (Guaifenesin 10 Ml Udc (200mg/10ml)) 10 ml PO Q4H PRN PRN PRN Reason: COUGH Hydralazine HCl (Hydralazine 20 Mg/Ml Vial) 10 mg IV Q4H PRN PRN PRN Reason: SBP > 160 Sodium Chloride () 250 mls @ 15 mls/hr IV .[id number] PRN PRN Reason: Saline Flush Ceftriaxone Sodium 2 gm/ (Sodium Chloride) 50 mls @ 100 mls/hr IV Q24H [facility] Last Infusion: 04/18/20 21:35 Dose: Infused Documented by: Insulin Glargine (Insulin Glargine 100 Units/Ml Pen) 10 units SC 1100,2200 [facility] Last Admin: 04/19/20 12:10 Dose: Not Given Documented by: Insulin Human Lispro (Insulin Lispro 100 Unit/Ml Insuln.Pen) 0 unit SC [facility]; Protocol Last Admin: 04/19/20 12:09 Dose: Not Given Documented by: Loratadine (Loratadine 10 Mg Tablet) 10 mg PO DAILY PRN PRN PRN Reason: ALLERGIES Magnesium Hydroxide (Magnesium Hydroxide 30 Ml Udc) 30 ml PO DAILY PRN PRN PRN Reason: Constipation Melatonin (Melatonin 10 Mg Tablet) 10 mg PO QHS PRN PRN Reason: SLEEP Last Admin: 04/17/20 22:14 Dose: 10 mg Documented by: Metoprolol Succinate (Metoprolol(Xl)Succ 50 Mg Tablet) 50 mg PO DAILY [facility] Last Admin: 04/19/20 10:46 Dose: 50 mg Documented by: Morphine Sulfate (Morphine 2 Mg/Ml Syringe) 1 - 2 mg IV Q4H PRN PRN PRN Reason: Pain Score 6-10 Ondansetron HCl (Ondansetron 4 Mg/2 Ml Vial) 4 mg IV Q8H PRN PRN PRN Reason: NAUSEA/VOMITING Oxycodone HCl (Oxycodone 5 Mg Tablet) 5 mg PO Q4H PRN PRN PRN Reason: Pain Score 4-5 Last Admin: 04/19/20 10:42 Dose: 5 mg Documented by: Pantoprazole Sodium (Pantoprazole Sodium 40 Mg Tablet) 40 mg PO DAILY [facility] Last Admin: 04/19/20 08:34 Dose: 40 mg Documented by: Polyethylene Glycol (Polyethylene Glycol 3350 17 Gm Packet) 17 gm PO DAILY [facility] Last Admin: 04/19/20 08:34 Dose: Not Given Documented by: Prochlorperazine Edisylate (Prochlorperazine 10 Mg/2 Ml Vial) 5 mg IV Q4H PRN PRN PRN Reason: Breakthrough Nausea/Vomiting Psyllium Hydrophilic Mucilloid (Psyllium 1 Packet) 1 packet PO DAILY PRN PRN PRN Reason: Constipation Senna/Docusate Sodium (Senna/Docusate Sodium 1 Tablet) 2 tablet PO BID PRN PRN PRN Reason: Constipation Sodium Chloride (0.9% Saline Lock 10 Ml Syringe) 10 - 40 ml IV UD PRN PRN Reason: SALINE FLUSH Last Admin: 04/19/20 10:48 Dose: 10 ml Documented by: Spironolactone (Spironolactone 25 Mg Tablet) 12.5 mg PO DAILY [facility] Last Admin: 04/19/20 10:47 Dose: 12.5 mg Documented by: Throat Lozenges (Benzocaine/Menthol 1 Lozenge) 1 lozenge MUCOUS MEM Q2H PRN PRN PRN Reason: SORE THROAT Triamcinolone Acetonide (Triamcinolone 0.5% Cream) 1 applic TOPICAL BID PRN PRN PRN Reason: ITCHING STROKE Vital Signs/Narrative: Vital Signs Temp Pulse Resp BP Pulse Ox 04/19/20 10:46 95 04/19/20 10:40 97.9 F 95 20 H 132/83 H 97 Medical Necessity - Tobacco Use Smoking Status: Former smoker Tobacco Use: Non-smoker Assessment/Plan All Active Problems (Last Reviewed 01/21/20 @ 10:[address] Jacob Byrd MD) Hypoxia (Acute) Congestive heart failure (Acute) Hyperkalemia (Acute) Dyspnea on exertion (Acute) Orthopnea (Acute) Acute exacerbation of CHF (congestive heart failure) (Resolved) Acute on chronic combined systolic (congestive) and diastolic (congestive) heart failure (Resolved) Acute respiratory failure with hypoxia (Resolved) CHF exacerbation (Resolved) COPD exacerbation (Resolved) COPD exacerbation (Resolved) Chronic ulcer of buttock (Resolved) Flash pulmonary edema (Resolved) Patient is 64-year-old female with multiple comorbidities including coronary artery status post LAD PCI, mid circumflex on 07/12/2019 admitted with acute hypoxic respiratory failure secondary to acute on chronic combined systolic and diastolic heart failure.The patient was recently admitted at the end of February for 1 week for decompensated heart failure with similar symptoms. 1. Acute Hypoxic Respiratory Failure secondary to Acute on Chronic Chronic combined Systolic/Diastolic CHF and history of COPD: Patient tachycardic and tachypneic. WBC elevated 12,000. D-dimer 3.27. Creatinine 1.6. BNP elevated 5000. Troponin negative. On IV Lasix. 04/18: Her oxygen requirement has come down. He still has significant lower extremity edema and continue IV Lasix. Discussed with Dr. Good regarding severe MR which required surgery but with Covid pandemic, tertiary care feasibility elective surgery for For MR is difficult and hard to find an accepting facility. Mild hypokalemia K3.0. Potassium replaced. Repeat magnesium and phosphorus are normal level. 2D echo on 03/19 reported as EF 25 to 30%, stage II diastolic dysfunction, severe hypokinesis of LV, LA moderately enlarged, RVSP 55 mmHg, severe 4+ eccentric MR, severe 4+ TR 04/19: On furosemide 80 mg IV twice daily. Negative fluid balance of 1.6 L. Patient lost about 8 to 9 pounds. 2. Acute lower urinary Tract Infection/cystitis: UA shows 3+ urine bacteria, positive nitrite and LE. Empirically on IV Rocephin. 04/18: Blood culture negative for more than 48 hours. Urine culture shows mixed organism more than 100,000 colonies 1 gram-negative arturo and other not identified suggestive of colonization. 04/19: Urine culture Proteus mirabilis more than 100,000 since infective. Second organism GNR lactose boot and saddle repair person 11,000 25,000 probably colonization. Continue antibiotic Rocephin 3. CKD stage III: Admission BUN/Cr 22/1.61, prior baseline creatinine noted to be 1.5-1.7. Monitor electrolytes, intake and output, weight as patient is on Lasix for heart failure admission above 04/18: BUN/creatinine 23/1.56 on baseline. No change. 04/20: No significant change BUN/creatinine 23/1.53 4. Chronic normocytic anemia: Admission hemoglobin 10.3, baseline appears 8-9, stable, trend. 04/18: H&H stable 9.4/31.8. 04/19 H&H no significant change 5. Diabetes mellitus type II: 03/19/2020 hemoglobin A1c 7%, on Accu-Cheks and sliding scale insulin 04/18: Glucose is controlled. 04/19 glucose is well controlled 6. Anxiety and depression: continue patient home BuSpar 7. Carotid disease: Status post right CEA, left 70 to 80% stenosis: Continue aspirin, Plavix and statin. 8. Hypertension: continue metoprolol, lisinopril and spironolactone, PRN IV hydralazine. 9. Hyperlipidemia: Continue statin therapy. Other comorbidities include obesity, former tobacco use, CVA history. DVT prophylaxis: On Lovenox therapeutic dose. Microbiology Past 72 Hours 04/17/20 02:32 Urine Catheter - Catheter Urine Culture - Preliminary Gram negative arturo Mixed Culture Laboratory Results 04/17/20 16:03: POC Glucose 128 H 04/17/20 20:00: APTT 76.4 H 04/17/20 22:17: POC Glucose 128 H 04/18/20 02:55: APTT 62.7 H 04/18/20 06:55: POC Glucose 99 04/18/20 09:30: APTT 38.3 H 04/18/20 09:30: WBC 11.0, RBC 3.68 L, Hgb 9.4 L, Hct 31.8 L, MCV 86.4, MCH 25.5 L, MCHC 29.6 L, RDW Std Deviation 62.2 H, RDW Coeff of Jade 19.6 H, Plt Count 457 H, MPV 9.1, Immature Gran % (Auto) 0.500, Neut % (Auto) 76.3 H, Lymph % (Auto) 9.0 L, [place] % (Auto) 8.0, Eos % (Auto) 5.7 H, Baso % (Auto) 0.5, Absolute Neuts (auto) 8.4 H, Absolute Lymphs (auto) 0.99, Nucleated RBC % 0 04/18/20 09:30: Sodium 140, Potassium 3.0 L, Chloride 102, Carbon Dioxide 31.0, Anion Gap 7, BUN 23 H, Creatinine 1.56 H, Estim Creat Clear Calc 43.60, Est GFR (MDRD) Af Amer 43 L, Est GFR (MDRD) Non-Af 36 L, BUN/Creatinine Ratio 14.7, Glucose 109 H, Calcium 8.8 04/18/20 09:30: Phosphorus 3.5, Magnesium 2.1 04/18/20 11:42: POC Glucose 112 H Inpatient E&M: [id number] Subs Hosp L2
[2020-04-19] MEDS: Acetaminophen 325 MG Tablet 650 MG PO (14:46)
[2020-04-19] MEDS: hydrOXYzine PAM 25 MG Capsule PO ×2 (18:35→22:37)
[2020-04-19 19:10] LABS: Bedside Glucose 98 mg/dL (70-110)
[2020-04-19] MEDS: MELATONIN 10 MG TABLET PO (20:11)
[2020-04-19] MEDS: Atorvastatin Calcium 80 MG Tablet PO (21:30)
[2020-04-19 22:50] LABS: Bedside Glucose 111 mg/dL (70-110)
[2020-04-20] VITALS (16 sets, daily range): BP systolic 139–159; BP diastolic 65–87; PULSE 85–101; RESP 12–30; TEMP 36.8–37.2; O2SAT 92–98
[2020-04-20] MEDS: oxyCODONE 5 MG Tablet PO ×5 (00:06→17:36)
[2020-04-20] MEDS: Albuterol 2.5 MG/3 ML VIAL.NEB. INHALATION (03:41)
[2020-04-20 05:33] LABS: Absolute Lymphocyte Count 0.95 X10^3/uL (0.83-4.51); Absolute Neutrophil Count 12.4 X10^3/uL (2.0-7.7); Basophil# 0.06 X10^3/uL; Basophil% 0.4 % (0-1); Eosinophil# 0.73 X10^3/uL; Eosinophils% 4.7 % (0-5); Hematocrit 34.7 % (37-47); Hemoglobin 10.1 g/dL (12.0-15.0); Lymphocyte # 0.95 X10^3/ul (4.0); Lymphocyte % 6.1 % (19-41); Mean Corp Hgb Conc 29.1 g/dL (32-36); Mean Corpuscular Hgb 25.3 pg (27.0-32.0); Mean Corpuscular Volume 86.8 fL (81-99); Mean Platelet Vol. 8.6 fl (6.2-12.0); Monocyte# 1.31 X10^3/uL; Monocyte% 8.5 % (0-10); NRBC Flagged by Analyzer 0 % (0-5); Neutrophil # 12.38 X10^3/uL (2.7-7.7); Platelet Count 445 K/mm3 (150-450); RBC Distribution Width CV 19.8 % (11.6-14.6); RBC Distribution Width SD 62.4 fl (35.1-43.9); White Blood Count 15.5 K/mm3 (4.4-11.0)
[2020-04-20 05:46] LABS: Anion Gap 7 (5-15); BUN 20 mg/dL (7-18); BUN/Creat Ratio 12.7 RATIO (10-20); Calcium,Total 9.1 mg/dL (8.5-10.1); Chloride 100 mmol/L (98-107); Creatinine, Serum 1.57 mg/dL (0.55-1.02); EST Glomerular Filtration Rate 35 mL/min (>60); Est Glom Filt Rate - Afr Amer 43 mL/min (>60); Estimated Creatinine Clearance 43.15 ml/min; Glucose 143 mg/dL (74-106); Sodium Level 138 mmol/L (136-145)
[2020-04-20] MEDS: busPIRone 5 MG Tablet 20 MG PO ×3 (06:31→22:37)
[2020-04-20 07:05] LABS: Bedside Glucose 138 mg/dL (70-110)
--- NOTE | 2020-04-20 08:08 | CASEMGMT ---
Addendum entered by Steph Melton 04/20/20 09:23: Call to [facility] to see if need new order or SHU order since pt had not been home long enough to be opened. According to intake at [facility], they have no information on pt at this time and no referral was made from [facility] last week. New referral will need sent at this time. Sondra VARGAS CM Original Note: SHU order placed in [facility] at this time for [facility]. Sondra VARGAS CM
--- NOTE | 2020-04-20 08:22 | PN.CARD_ITS ---
Subjectve: Still complains of mild shortness of breath Objective: Vital Signs Temp Pulse Resp BP Pulse Ox 98.9 F 95 24 H 139/65 H 96 04/20/20 03:15 04/20/20 07:04 04/20/20 03:42 04/20/20 03:15 04/20/20 03:15 Oxygen Flow Rate (L/min) 2 Oxygen Delivery Method Nasal Cannula Weight: 166 lb 7.184 oz Body Mass Index (BMI) 34.0 Intake and Output for Last 24 Hours 04/18/20 04/19/20 04/20/20 23:59 23:59 23:59 Intake Total 1322.53 / 1322.53 520 / 520 Output Total 2250 / 2250 1550 / 1550 250 / 250 Balance -927.47 / -927.47 -1030 / -1030 -250 / -250 General: Awake, Alert, Oriented x 3 HEENT: PERRL, EOMI, Sclera Non Icteric Neck: Supple, Good ROM, No Lymph Node Enlargement Lungs: Diminished Shahab Bases Cardiovascular: Regular Rhythm, Normal S1, Normal S2, No Rubs, No Gallops Murmur Murmur: Grade 3/6, Holosystolic, [place] Vascular: No Carotid Bruits, Normal Femoral Pulses, Normal Radial Pulses, Normal Dorsalis Pedal Pulse, Normal Posterior Tibial Pulses Abdomen: Bowel Sounds Present, Soft, Non Tender, No HSM, No Organomegaly Extremities: No Cyanosis, No Clubbing, No edema Musculoskeletal: No Erythema Skin: No Rashes Neurological: No Focal Motor or Sensory Deficit 04/20/20 05:10: WBC 15.5 H, RBC 4.00 L, Hgb 10.1 L, Hct 34.7 L, MCV 86.8, MCH 25.3 L, MCHC 29.1 L, Plt Count 445, MPV 8.6, Immature Gran % (Auto) 0.300, Neut % (Auto) 80.0 H, Lymph % (Auto) 6.1 L, [place] % (Auto) 8.5, Eos % (Auto) 4.7, Baso % (Auto) 0.4, Absolute Neuts (auto) 12.4 H, Nucleated RBC % 0 04/20/20 05:10: Sodium 138, Potassium 4.0, Chloride 100, Carbon Dioxide 31.0, Anion Gap 7, BUN 20 H, Creatinine 1.57 H, Est GFR (MDRD) Af Amer 43 L, Est GFR (MDRD) Non-Af 35 L, BUN/Creatinine Ratio 12.7, Glucose 143 H, Calcium 9.1 Rhythm: EKG: ECHO: Stress Test: Cardiac Cath: PCI: CT Surgery: Holter monitor: EPS: PPM: CXR: Chest CT Scan: Medical Necessity - Tobacco Use Smoking Status: Former smoker Tobacco Use: Non-smoker Assessment/Plan 1. Acute on chronic combined systolic and diastolic CHF (congestive heart failure) I50.42 She does have evidence of combined congestive heart failure. The above is likely secondary to have valvular heart disease. Thus far it has been difficult to have her transferred to a facility which is willing to perform mitral valve surgery on her. Unfortunately in this current area with COVID-19 needs to be difficult to achieve this. She is agreeable to having surgery now however. I would therefore like us to continue with the diuretics with intravenous Lasix and eventually switching to oral Lasix * Continue spironolactone * May consider switching to Entresto * Continue beta-saurabh 2. Nonrheumatic mitral (valve) insufficiency I34.0 Plan She does have evidence of mitral regurgitation which appears to be moderate to severe. There is abnormal coaptation. Ideally she should be referred for mitral valve surgery but it is not clear whether she is really a candidate for the above. In addition the current pandemic precludes elective surgery for the above. We will see how she does with diuretic management and then make some recommendations. * 3. Essential (primary) hypertension I10 Plan She does have a history of hypertension. Her blood pressure appears to be well controlled at this time. I would not recommend that we make any changes with regard to the above. 4. History of coronary artery stent placement Z95.5 PCI-JAZIEL-LAD w/ 2.0 x 30 mm and 2.5 x 34 mm Resolute [place] and PCI-JAZIEL-Mid LCx w/ Resolute [place] 2.0 x 30 mm and 2.0 x 22 mm Stent 05/18/2018 * I do not see any evidence of ischemia at this particular time. We will continue with her current medical therapy with no acute changes. * I think we can discontinue the heparin use and put her on daily Lovenox at the DVT prophylaxis dose only. * * She may eventually need to be transferred to a correction and then therapy optimized for outpatient consideration for surgery later on. * Thank you for allowing me to participate in the care of your patient. Please don't hesitate to call if any issues arise.
[2020-04-20] MEDS: Ferrous Sulfate 325 MG Tablet PO (08:42)
[2020-04-20] MEDS: Spironolactone 25 MG Tablet 12.5 MG PO (08:42)
[2020-04-20] MEDS: Clopidogrel Bisulfate 75 MG Tablet PO (08:42)
[2020-04-20] MEDS: Pantoprazole Sodium 40 MG Tablet PO (08:42)
[2020-04-20] MEDS: Metoprolol(XL)Succ 50 MG Tablet PO (08:42)
[2020-04-20] MEDS: Aspirin 81 MG TAB.CHEW PO (08:42)
[2020-04-20] MEDS: 0.9% Saline Lock 10 ML Syringe IV ×3 (08:44→22:14)
[2020-04-20] MEDS: Furosemide 100 MG/10 ML Vial 80 MG IV ×2 (08:44→17:36)
[2020-04-20] MEDS: guaiFENesin 10 ML UDC (200MG/10ML) PO (09:31)
[2020-04-20 12:05] LABS: Bedside Glucose 156 mg/dL (70-110)
--- NOTE | 2020-04-20 14:25 | PCM.PN.HOSP ---
Reason for Visit: Patient is still short of breath. Heart rate 101. Patient is anxious and cries easily. On 2 L of oxygen. groundwater monitoring technician shows sinus rhythm with PVCs. Physical exam General: Alert, Oriented x3, Cooperative HEENT: Atraumatic, PERRLA, EOMI, Normocephalic Oral: No Gingival or Mucosal Lesions/ Ulcerations Neck: Supple, No JVD, Negative Carotid Bruits Lungs: Air entry diminished in bilateral lung bases. Mild bilateral expiratory rhonchi. Cardiovascular: Regular rate, Regular Rhythm with PVCs, Normal S1, Normal S2, holosystolic murmur over cardiac apex with radiation to axilla Abdomen: Bowel Sounds Present, Soft, Non Tender, Non-Distended : No renal angle tenderness. No suprapubic tenderness. Extremities: Bilateral lower extremity edema up to thigh, slightly better. Capillary Refill Less than 3 Seconds Skin: No rashes, No breakdown Musculoskeletal: No Tenderness to Palpation of Joints or Extremities Neurological: Cranial nerves II-XII grossly intact, Deep Tendon Reflexes 2+/4 and Symmetrical, Neuro grossly intact Psych/Mental Status: Normal Affect, Appropriate. Vitals/I&O's: Vital Signs Temp Pulse Resp BP Pulse Ox 98.5 F 101 H 20 H 159/86 H 94 04/20/20 08:40 04/20/20 08:42 04/20/20 08:40 04/20/20 08:40 04/20/20 08:40 Oxygen Flow Rate (L/min) 2 Oxygen Delivery Method Nasal Cannula Weight: 166 lb 7.184 oz Body Mass Index (BMI) 34.0 Intake and Output for Last 24 Hours 04/18/20 04/19/20 04/20/20 23:59 23:59 23:59 Intake Total 1322.53 / 1322.53 520 / 520 240 / 240 Output Total 2250 / 2250 1550 / 1550 300 / 300 Balance -927.47 / -927.47 -1030 / -1030 -60 / -60 Microbiology Past 72 Hours 04/17/20 02:32 Urine Catheter - Catheter Urine Culture - Final Proteus mirabilis Escherichia coli 04/17/20 02:20 Blood Culture (Wb) - Right Hand Blood Culture - Preliminary No growth in 48 hours. 04/17/20 02:15 Blood Culture (Wb) - Anticubital Left Blood Culture - Preliminary No growth in 48 hours. Laboratory Results 04/19/20 16:51: POC Glucose 98 04/19/20 21:24: POC Glucose 111 H 04/20/20 05:10: WBC 15.5 H, RBC 4.00 L, Hgb 10.1 L, Hct 34.7 L, MCV 86.8, MCH 25.3 L, MCHC 29.1 L, RDW Std Deviation 62.4 H, RDW Coeff of Jade 19.8 H, Plt Count 445, MPV 8.6, Immature Gran % (Auto) 0.300, Neut % (Auto) 80.0 H, Lymph % (Auto) 6.1 L, [place] % (Auto) 8.5, Eos % (Auto) 4.7, Baso % (Auto) 0.4, Absolute Neuts (auto) 12.4 H, Absolute Lymphs (auto) 0.95, Nucleated RBC % 0 04/20/20 05:10: Sodium 138, Potassium 4.0, Chloride 100, Carbon Dioxide 31.0, Anion Gap 7, BUN 20 H, Creatinine 1.57 H, Estim Creat Clear Calc 43.15, Est GFR (MDRD) Af Amer 43 L, Est GFR (MDRD) Non-Af 35 L, BUN/Creatinine Ratio 12.7, Glucose 143 H, Calcium 9.1 04/20/20 06:30: POC Glucose 138 H 04/20/20 11:59: POC Glucose 156 H Current Medications Acetaminophen (Acetaminophen 325 Mg Tablet) 650 mg PO Q6H PRN PRN PRN Reason: Pain Score 1-10/Temp > 100.7 F Last Admin: 04/19/20 14:46 Dose: 650 mg Documented by: Albuterol Sulfate (Albuterol 2.5 Mg/3 Ml Vial.Neb.) 2.5 mg INHALATION Q2H PRN PRN PRN Reason: Dyspnea, wheezing Last Admin: 04/20/20 03:41 Dose: 2.5 mg Documented by: Albuterol/Ipratropium (Ipratropium/Albuterol Sulfate 3 Ml Ampul.Neb) 3 ml INHALATION Q6HWA.RT [facility] Last Admin: 04/19/20 19:10 Dose: 3 ml Documented by: Aspirin (Aspirin 81 Mg Tab.Chew) 81 mg PO DAILY@0800 [facility] Last Admin: 04/20/20 08:42 Dose: 81 mg Documented by: Atorvastatin Calcium (Atorvastatin Calcium 80 Mg Tablet) 80 mg PO QHS [facility] Last Admin: 04/19/20 21:30 Dose: 80 mg Documented by: Bisacodyl (Bisacodyl 10 Mg Suppository) 10 mg RECTAL DAILY PRN PRN PRN Reason: CONSTIPATION Buspirone HCl (Buspirone 5 Mg Tablet) 20 mg PO TID [facility] Last Admin: 04/20/20 13:33 Dose: 20 mg Documented by: Cholecalciferol (Cholecalciferol (Vit D3) 1,000 Unit (25mcg)) 2,000 unit PO DAILY [facility] Last Admin: 04/20/20 08:41 Dose: 2,000 unit Documented by: Clopidogrel Bisulfate (Clopidogrel Bisulfate 75 Mg Tablet) 75 mg PO DAILY [facility] Last Admin: 04/20/20 08:42 Dose: 75 mg Documented by: Ferrous Sulfate (Ferrous Sulfate 325 Mg Tablet) 325 mg PO DAILYCM [facility] Last Admin: 04/20/20 08:42 Dose: 325 mg Documented by: Furosemide (Furosemide 100 Mg/10 Ml Vial) 80 mg IV BID@1000,1800 [facility] Last Admin: 04/20/20 08:44 Dose: 80 mg Documented by: Gabapentin (Gabapentin 100 Mg Capsule) 100 mg PO QHS [facility] Last Admin: 04/19/20 19:57 Dose: Not Given Documented by: Guaifenesin (Guaifenesin 10 Ml Udc (200mg/10ml)) 10 ml PO Q4H PRN PRN PRN Reason: COUGH Last Admin: 04/20/20 09:31 Dose: 10 ml Documented by: Hydralazine HCl (Hydralazine 20 Mg/Ml Vial) 10 mg IV Q4H PRN PRN PRN Reason: SBP > 160 Hydroxyzine Pamoate (Hydroxyzine Brandi 25 Mg Capsule) 25 mg PO HS PRN PRN Reason: ITCHING & INSOMNIA Last Admin: 04/19/20 22:37 Dose: 25 mg Documented by: Sodium Chloride () 250 mls @ 15 mls/hr IV .[id number] PRN PRN Reason: Saline Flush Ceftriaxone Sodium 2 gm/ (Sodium Chloride) 50 mls @ 100 mls/hr IV Q24H [facility] Last Infusion: 04/19/20 22:34 Dose: Infused Documented by: Insulin Glargine (Insulin Glargine 100 Units/Ml Pen) 10 units SC 1100,2200 [facility] Last Admin: 04/20/20 12:07 Dose: Not Given Documented by: Insulin Human Lispro (Insulin Lispro 100 Unit/Ml Insuln.Pen) 0 unit SC [facility]; Protocol Last Admin: 04/20/20 12:06 Dose: Not Given Documented by: Lactobacillus Acidophilus (Lactobacillus Acidophilus) 1 tablet PO TID [facility] Loratadine (Loratadine 10 Mg Tablet) 10 mg PO DAILY PRN PRN PRN Reason: ALLERGIES Melatonin (Melatonin 10 Mg Tablet) 10 mg PO QHS PRN PRN Reason: SLEEP Last Admin: 04/19/20 20:11 Dose: 10 mg Documented by: Metoprolol Succinate (Metoprolol(Xl)Succ 50 Mg Tablet) 50 mg PO DAILY [facility] Last Admin: 04/20/20 08:42 Dose: 50 mg Documented by: Morphine Sulfate (Morphine 2 Mg/Ml Syringe) 1 - 2 mg IV Q4H PRN PRN PRN Reason: Pain Score 6-10 Ondansetron HCl (Ondansetron 4 Mg/2 Ml Vial) 4 mg IV Q8H PRN PRN PRN Reason: NAUSEA/VOMITING Oxycodone HCl (Oxycodone 5 Mg Tablet) 5 mg PO Q4H PRN PRN PRN Reason: Pain Score 4-5 Last Admin: 04/20/20 13:33 Dose: 5 mg Documented by: Pantoprazole Sodium (Pantoprazole Sodium 40 Mg Tablet) 40 mg PO DAILY [facility] Last Admin: 04/20/20 08:42 Dose: 40 mg Documented by: Prochlorperazine Edisylate (Prochlorperazine 10 Mg/2 Ml Vial) 5 mg IV Q4H PRN PRN PRN Reason: Breakthrough Nausea/Vomiting Sodium Chloride (0.9% Saline Lock 10 Ml Syringe) 10 - 40 ml IV UD PRN PRN Reason: SALINE FLUSH Last Admin: 04/20/20 08:44 Dose: 10 ml Documented by: Sodium Chloride (Sodium Chloride 0.65% 1 [place].Btl) 2 spray NASAL TID PRN PRN PRN Reason: NASAL DRYNESS Spironolactone (Spironolactone 25 Mg Tablet) 12.5 mg PO DAILY [facility] Last Admin: 04/20/20 08:42 Dose: 12.5 mg Documented by: Throat Lozenges (Benzocaine/Menthol 1 Lozenge) 1 lozenge MUCOUS MEM Q2H PRN PRN PRN Reason: SORE THROAT Triamcinolone Acetonide (Triamcinolone 0.5% Cream) 1 applic TOPICAL BID PRN PRN PRN Reason: ITCHING Medical Necessity - Tobacco Use Smoking Status: Former smoker Tobacco Use: Non-smoker Assessment/Plan All Active Problems (Last Reviewed 01/21/20 @ 10:[address] Jacob Byrd MD) Hypoxia (Acute) Congestive heart failure (Acute) Hyperkalemia (Acute) Dyspnea on exertion (Acute) Orthopnea (Acute) Acute exacerbation of CHF (congestive heart failure) (Resolved) Acute on chronic combined systolic (congestive) and diastolic (congestive) heart failure (Resolved) Acute respiratory failure with hypoxia (Resolved) CHF exacerbation (Resolved) COPD exacerbation (Resolved) COPD exacerbation (Resolved) Chronic ulcer of buttock (Resolved) Flash pulmonary edema (Resolved) Patient is 64-year-old female with multiple comorbidities including coronary artery status post LAD PCI, mid circumflex on 07/12/2019 admitted with acute hypoxic respiratory failure secondary to acute on chronic combined systolic and diastolic heart failure.The patient was recently admitted at the end of February for 1 week for decompensated heart failure with similar symptoms. 1. Acute Hypoxic Respiratory Failure secondary to Acute on Chronic Chronic combined Systolic/Diastolic CHF and history of COPD: Patient tachycardic and tachypneic. WBC elevated 12,000. D-dimer 3.27. Creatinine 1.6. BNP elevated 5000. Troponin negative. On IV Lasix. 04/18: Her oxygen requirement has come down. He still has significant lower extremity edema and continue IV Lasix. Discussed with Dr. Good regarding severe MR which required surgery but with Covid pandemic, tertiary care feasibility elective surgery for For MR is difficult and hard to find an accepting facility. Mild hypokalemia K3.0. Potassium replaced. Repeat magnesium and phosphorus are normal level. 2D echo on 03/19 reported as EF 25 to 30%, stage II diastolic dysfunction, severe hypokinesis of LV, LA moderately enlarged, RVSP 55 mmHg, severe 4+ eccentric MR, severe 4+ TR 04/19: On furosemide 80 mg IV twice daily. Negative fluid balance of 1.6 L. Patient lost about 8 to 9 pounds. 04/20: Patient shortness of breath not even getting better on Lasix. [facility] transfer line called after discussion with Dr. Good. Patient needs transfer to tertiary care center for urgent mitral valve repair/replacement surgery. Patient clinical status including x-ray, labs, 2D echo discussed with the transfer line coordinator. 2. Sepsis secondary to acute lower urinary Tract Infection/cystitis, present on admission: UA shows 3+ urine bacteria, positive nitrite and LE. Empirically on IV Rocephin. 04/18: Blood culture negative for more than 48 hours. Urine culture shows mixed organism more than 100,000 colonies 1 gram-negative arturo and other not identified suggestive of colonization. 04/19: Urine culture Proteus mirabilis more than 100,000 since infective. 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 Continue antibiotic Rocephin Patient has sepsis secondary to urinary tract infection. Continue IV antibiotic. Stool for C. difficile and enteric bacteriology panel negative. Patient has diarrhea about 2-3 bowel movements semisolid to liquid for last 6 months history of chronic diarrhea possible IBS. 3. CKD stage III: Admission BUN/Cr 22/1.61, prior baseline creatinine noted to be 1.5-1.7. Monitor electrolytes, intake and output, weight as patient is on Lasix for heart failure admission above 04/18: BUN/creatinine 23/1.56 on baseline. No change. 04/20: No significant change BUN/creatinine 23/1.53 4. Chronic normocytic anemia: Admission hemoglobin 10.3, baseline appears 8-9, stable, trend. 04/18: H&H stable 9.4/31.8. 04/19 H&H no significant change 5. Diabetes mellitus type II: 03/19/2020 hemoglobin A1c 7%, on Accu-Cheks and sliding scale insulin 04/18: Glucose is controlled. 04/19 glucose is well controlled 6. Anxiety and depression: continue patient home BuSpar 7. Carotid disease: Status post right CEA, left 70 to 80% stenosis: Continue aspirin, Plavix and statin. 8. Hypertension: continue metoprolol, lisinopril and spironolactone, PRN IV hydralazine. 9. Hyperlipidemia: Continue statin therapy. Other comorbidities include obesity, former tobacco use, CVA history. DVT prophylaxis: On Lovenox therapeutic dose. Clinical Impression(s) from Imaging Studies Chest X-Ray 04/17/20 01:37 IMPRESSION: Vascular congestion with mild to moderate left-sided pleural effusion. Microbiology Past 72 Hours 04/20/20 12:43 Stool Enteric Bacteriology - Final 04/20/20 12:43 Stool C. difficile DNA Amplification - Final 04/17/20 02:32 Urine Catheter - Catheter Urine Culture - Final Proteus mirabilis Escherichia coli 04/17/20 02:20 Blood Culture (Wb) - Right Hand Blood Culture - Preliminary No growth in 48 hours. 04/17/20 02:15 Blood Culture (Wb) - Anticubital Left Blood Culture - Preliminary No growth in 48 hours. Laboratory Results 04/19/20 16:51: POC Glucose 98 04/19/20 21:24: POC Glucose 111 H 04/20/20 05:10: WBC 15.5 H, RBC 4.00 L, Hgb 10.1 L, Hct 34.7 L, MCV 86.8, MCH 25.3 L, MCHC 29.1 L, RDW Std Deviation 62.4 H, RDW Coeff of Jade 19.8 H, Plt Count 445, MPV 8.6, Immature Gran % (Auto) 0.300, Neut % (Auto) 80.0 H, Lymph % (Auto) 6.1 L, [place] % (Auto) 8.5, Eos % (Auto) 4.7, Baso % (Auto) 0.4, Absolute Neuts (auto) 12.4 H, Absolute Lymphs (auto) 0.95, Nucleated RBC % 0 04/20/20 05:10: Sodium 138, Potassium 4.0, Chloride 100, Carbon Dioxide 31.0, Anion Gap 7, BUN 20 H, Creatinine 1.57 H, Estim Creat Clear Calc 43.15, Est GFR (MDRD) Af Amer 43 L, Est GFR (MDRD) Non-Af 35 L, BUN/Creatinine Ratio 12.7, Glucose 143 H, Calcium 9.1 04/20/20 06:30: POC Glucose 138 H 04/20/20 11:59: POC Glucose 156 H 04/20/20 16:26: POC Glucose 153 H Inpatient E&M: 42371 Subs Hosp L2
--- NOTE | 2020-04-20 14:43 | CASEMGMT ---
According to the [facility] website, the following are in-network tertiary facilities: [facility], [facility], [facility], [facility], [facility], [facility], [facility], [facility], and . Sondra VARGAS CM
[2020-04-20 16:35] LABS: Bedside Glucose 153 mg/dL (70-110)
--- NOTE | 2020-04-20 20:15 | NURSING ---
RN CALLED TO ROOM, PATIENT COMPLAINING OF BEING SOB. SEE VITALS. CALLED RESPIRATORY PLACED PATIENT ON THE BIPAP AND TOLERATING WELL.
[2020-04-20] MEDS: Ipratropium/Albuterol Sulfate 3 ML AMPUL.NEB INHALATION (20:19)
[2020-04-20 21:55] LABS: Bedside Glucose 142 mg/dL (70-110)
[2020-04-20] MEDS: Atorvastatin Calcium 80 MG Tablet PO (22:13)
[2020-04-20] MEDS: hydrOXYzine PAM 25 MG Capsule PO (22:13)
--- NOTE | 2020-04-20 22:21 | NURSING ---
PATIENT STATES SHE FEELS BETTER AFTER WEARING THE BIPAP
--- NOTE | 2020-04-20 23:01 | NURSING ---
CALL [facility] AND UPDATED ABOUT PATIENT BEING TRANSFERRED TO [facility], GIVEN FLOOR NUMBER IF WANTED UPDATES. DENIES ANY QUESTIONS OR CONCERNS.
--- NOTE | 2020-04-21 07:14 | PCM.DC.SUM ---
Discharge Date and Diagnosis Date of Admission: 04/17/20 Date of Discharge: 04/21/20 - Primary Discharge Diagnosis Acute Problems: Acute Hypoxic Respiratory Failure secondary to Acute on Chronic Chronic combined Systolic/Diastolic CHF due to severe mitral regurgitation, moderate pulmonary hypertension and history of COPD Acute cystitis due to Proteus mirabilis and possible E. coli colonization - Secondary Discharge Diagnosis Chronic Problems: Chronic Problems (Last Reviewed 01/21/20 @ 10:[address] Jacob Byrd MD) Acute on chronic systolic CHF (congestive heart failure) (Chronic) Acute exacerbation of CHF (congestive heart failure) (Chronic) Dyspnea (Chronic) Acute kidney injury superimposed on CKD (Chronic) Acute kidney injury superimposed on chronic kidney disease (Chronic) Atherosclerosis of coronary artery of [place] heart without angina pectoris (Chronic) History of coronary artery stent placement (Chronic 05/18/18) PCI-JAZIEL-LAD w/ 2.0 x 30 mm and 2.5 x 34 mm [employer] and PCI-JAZIEL-Mid LCx w/ [employer] 2.0 x 30 mm and 2.0 x 22 mm Stent 05/18/2018 Chronic combined systolic and diastolic CHF (congestive heart failure) (Chronic) Bilateral carotid artery stenosis (Chronic) RCEA and L carotid 70-80% stenosis Non-rheumatic tricuspid valve insufficiency (Chronic) Nonrheumatic mitral (valve) insufficiency (Chronic) Secondary pulmonary arterial hypertension (Chronic) Essential (primary) hypertension (Chronic) Hyperlipidemia (Chronic) CVA (cerebral vascular accident) (Chronic) PAD (peripheral artery disease) (Chronic) Debility (Chronic) Hospital Course and Treatment Operations: None Summary of Care Provided: [] Patient is 64-year-old female with multiple comorbidities including coronary artery status post LAD PCI, mid circumflex on 07/12/2019 admitted with acute hypoxic respiratory failure secondary to acute on chronic combined systolic and diastolic heart failure.The patient was recently admitted at the end of February for 1 week for decompensated heart failure with similar symptoms. 1. Acute Hypoxic Respiratory Failure secondary to Acute on Chronic Chronic combined Systolic/Diastolic CHF due to severe mitral regurgitation and moderate pulmonary hypertension and history of COPD: Patient tachycardic and tachypneic. WBC elevated 12,000. D-dimer 3.27. Creatinine 1.6. BNP elevated 5000. Troponin negative. On IV Lasix. Patient oxygen requirement improved. Discussed with Dr. Good regarding severe MR which required surgery but with Covid pandemic, tertiary [facility] feasibility elective surgery for for severe MR is difficult. Patient is very symptomatic with shortness of breath and not improving on Lasix therefore called [facility] transfer line. I discussed the admission, clinical situation of the patient, labs, imaging and echo and urgency for the mitral valve surgery. 2D echo on 03/19 reported as EF 25 to 30%, stage II diastolic dysfunction, severe hypokinesis of LV, LA moderately enlarged, RVSP 55 mmHg, severe 4+ eccentric MR, severe 4+ TR 2. Acute lower urinary Tract Infection/cystitis due to E. coli and Proteus mirabilis.: UA shows 3+ urine bacteria, positive nitrite and LE. Empirically on IV Rocephin. Urine culture shows Proteus mirabilis more than an E. coli [id number] colonies. It seems E. coli is mainly colonization. Patient continued on antibiotic Rocephin which is sensitive to both Proteus mirabilis and E. coli. 3. CKD stage III: Admission BUN/Cr 22/1.61, prior baseline creatinine noted to be 1.5-1.7. Monitor electrolytes, intake and output, weight as patient is on Lasix for heart failure admission above. No significant change in BUN/creatinine . H&H remained stable 4. Chronic normocytic anemia: Admission hemoglobin 10.3, baseline appears 8-9, stable, trend. H&H is stable 5. Diabetes mellitus type II: 03/19/2020 hemoglobin A1c 7%, on Accu-Cheks and sliding scale insulin 6. Anxiety and depression: continue patient home BuSpar 7. Carotid disease: Status post right CEA, left 70 to 80% stenosis: Continue aspirin, Plavix and statin. 8. Hypertension: continue metoprolol, lisinopril and spironolactone, PRN IV hydralazine. 9. Hyperlipidemia: Continue statin therapy. Other comorbidities include obesity, former tobacco use, CVA history. DVT prophylaxis: On Lovenox therapeutic dose. Patient is transferred to [facility] for mitral valve repair/replacement surgery about 12:30 AM on November 20, 2019. Total time spent more than 30 minutes in discussion with the clinical updates, labs, imaging and echo findings with the clinical pharmacy coordinator. Microbiology Past 72 Hours 04/20/20 12:43 Stool Enteric Bacteriology - Final 04/20/20 12:43 Stool C. difficile DNA Amplification - Final 04/17/20 02:32 Urine Catheter - Catheter Urine Culture - Final Proteus mirabilis Escherichia coli 04/17/20 02:20 Blood Culture (Wb) - Right Hand Blood Culture - Preliminary No growth in 48 hours. 04/17/20 02:15 Blood Culture (Wb) - Anticubital Left Blood Culture - Preliminary No growth in 48 hours. Laboratory Results 04/20/20 16:26: POC Glucose 153 H 04/20/20 20:11: POC Glucose 142 H Objective: Patient left hospital about 12:24 AM on 04/21/2020 at night. Patient was seen on day of 04/20/2020 patient in the progress note of same date.. - Physical Exam Vitals/I&O's: Vital Signs Temp Pulse Resp BP Pulse Ox 98.3 F 95 20 H 150/70 H 95 04/20/20 22:10 04/20/20 22:10 04/20/20 22:10 04/20/20 22:10 04/20/20 23:25 Oxygen Flow Rate (L/min) 4 Oxygen Delivery Method Nasal Cannula Weight: 166 lb 7.184 oz Body Mass Index (BMI) 34.0 Intake and Output for Last 24 Hours 04/19/20 04/20/20 04/21/20 23:59 23:59 23:59 Intake Total 520 / 520 410 / 410 Output Total 1550 / 1550 400 / 400 Balance -1030 / -1030 Microbiology Past 72 Hours 04/20/20 12:43 Stool Enteric Bacteriology - Final 04/20/20 12:43 Stool C. difficile DNA Amplification - Final 04/17/20 02:32 Urine Catheter - Catheter Urine Culture - Final Proteus mirabilis Escherichia coli 04/17/20 02:20 Blood Culture (Wb) - Right Hand Blood Culture - Preliminary No growth in 48 hours. 04/17/20 02:15 Blood Culture (Wb) - Anticubital Left Blood Culture - Preliminary No growth in 48 hours. Laboratory Results 04/20/20 11:59: POC Glucose 156 H 04/20/20 16:26: POC Glucose 153 H 04/20/20 20:11: POC Glucose 142 H Home Medications: Medications to take at Discharge Clopidogrel Bisulfate [Clopidogrel] 75 mg PO DAILY 05/24/18 Aspirin [Aspirin, Baby] 81 mg PO DAILY@0800 07/12/19 Albuterol Sulfate [Albuterol Sulfate HFA] 2 puff IH 4X/DAY 09/28/19 Loratadine 10 mg PO DAILY PRN PRN 09/28/19 Melatonin 10 mg PO QHS PRN tab 10/02/19 spironolactone 25 mg tablet 12.5 mg PO DAILY tab 12/18/19 Insulin Lispro [Humalog KwikPen] See Protocol SUBCUT ACHS 01/21/20 Oxycodone HCl 5 mg PO Q6H PRN PRN 01/21/20 metoprolol succinate 25 mg tablet,extended release 24 hr 25 mg PO DAILY tab 03/13/20 pantoprazole 40 mg tablet,delayed release 40 mg PO DAILY 03/13/20 Atorvastatin Calcium 80 mg PO QHS 03/18/20 Buspirone HCl 20 mg PO TID 03/18/20 Cholecalciferol (Vitamin D3) [Vitamin D3] 2,000 unit PO DAILY 03/18/20 Ferrous Sulfate 325 mg PO DAILY 03/18/20 Nut.tx.gluc.intoler,Lac-Fr,Soy [Glucerna] 120 ml PO BID 03/18/20 Insulin Glargine [Lantus SoloStar Pen] 10 units SC 1100,2200 pen 03/21/20 Acetaminophen [Tylenol Tablet] 325 - 650 mg PO Q6H PRN PRN 04/17/20 Bisacodyl [Dulcolax] 10 mg RECTAL DAILY PRN PRN 04/17/20 Furosemide 80 mg PO BID 04/17/20 Gabapentin [Neurontin] 100 mg PO QHS 04/17/20 Mometasone Furoate 15 gm TP BID PRN 04/17/20 Nitroglycerin [Nitrostat] 0.4 mg SL Q5M PRN 04/17/20 Triamcinolone 0.1% Cream [Kenalog] 1 applic TOPICAL TID PRN PRN 04/17/20 Primary Care Physician: Evens Jimenez III, MD [Primary Care Provider] - Medical Necessity - Tobacco Use Smoking Status: Former smoker Tobacco Use: Non-smoker Meaningful Use Info Meaningful Use Diagnoses (Choose all that apply): CHF - CHF ALEJANDRA/ARB ordered at discharge?: No Reason ALEJANDRA/ARB not ordered?: Worsening renal dysfunctn Documented LVEF (%): 25 Inpatient E&M: 43213 Disch Hosp
== END 2020-04-21 00:48 | disposition short-term general hospital (02) | DRG 463 ==
LOC: ED 02:10 → ICU 04:26 → PCU 16:45
PROVIDERS: Internal Medicine Critical Care Medicine; Admitting Provider Family Medicine; Emergency Provider Student in an Organized Health Care Education/Training Program; PCP Family Medicine; Visit Provider Internal Medicine
DX: N30.00 Acute cystitis without hematuria (principal); B96.4 Proteus (mirabilis) (morganii) as the cause of diseases classified elsewhere; B96.20 Unspecified Escherichia coli [E. coli] as the cause of diseases classified elsewhere; I13.0 Hypertensive heart and chronic kidney disease with heart failure and stage 1 through stage 4 chronic kidney disease, or unspecified chronic kidney disease; I50.43 Acute on chronic combined systolic (congestive) and diastolic (congestive) heart failure; E11.22 Type 2 diabetes mellitus with diabetic chronic kidney disease; E11.51 Type 2 diabetes mellitus with diabetic peripheral angiopathy without gangrene; N18.30 Chronic kidney disease, stage 3 unspecified; D63.1 Anemia in chronic kidney disease; J96.01 Acute respiratory failure with hypoxia; I08.1 Rheumatic disorders of both mitral and tricuspid valves; I27.21 Secondary pulmonary arterial hypertension; J44.1 Chronic obstructive pulmonary disease with (acute) exacerbation; N17.9 Acute kidney failure, unspecified; I25.10 Atherosclerotic heart disease of native coronary artery without angina pectoris; I65.23 Occlusion and stenosis of bilateral carotid arteries; E78.5 Hyperlipidemia, unspecified; E87.6 Hypokalemia; E66.9 Obesity, unspecified; F32.9 Major depressive disorder, single episode, unspecified; F41.9 Anxiety disorder, unspecified; R53.81 Other malaise; Z68.34 Body mass index [BMI] 34.0-34.9, adult; Z95.5 Presence of coronary angioplasty implant and graft; Z79.02 Long term (current) use of antithrombotics/antiplatelets; Z79.4 Long term (current) use of insulin; Z79.82 Long term (current) use of aspirin; Z79.899 Other long term (current) drug therapy; Z87.891 Personal history of nicotine dependence; Z86.73 Personal history of transient ischemic attack (TIA), and cerebral infarction without residual deficits
CPT/HCPCS: 36415; 36600; 71045; 80048; 80053; 81001; 82803; 82947; 82962; 83605; 83735; 83880; 84100; 84145; 84484; 85025; 85379; 85610; 85730; 87040; 87077; 87086; 87088; 87186; 87493; 87506; 87635; 93005; 93970; 94002; 94003; 94640; 99285; J7050; A4216; J0696; J1940; U0002